=== PATIENT | male | born 1960 | race Caucasian/White ===

== ENCOUNTER 2018-05-25 22:45 | Emergency (ER) | payer BC, SELFPAY ==
[2018-05-25] VITALS (15 sets, daily range): BP systolic 123–152; BP diastolic 81–134; PULSE 74–85; RESP 12–23; TEMP 36.8; O2SAT 96–98
--- NOTE | 2018-05-25 23:20 | ED.GENADUL_ITS ---
Discharge Plan Disposition Patient Disposition: HOME Discharge Details Chief Complaint: Chest Pain Clinical Impression: Chest discomfort, Elevated serum creatinine, Mass of middle lobe of right lung Primary Care Provider: Nick Martinez ED Provider: Yon Kaba Home Meds and New Rx's Prescriptions: No Action No Known Home Meds RF: 0 Discharge Instructions Additional Instructions: The cause of your chest discomfort was not determined today. You still may have significant disease. You should have an outpatient cardiac stress test as soon as possible. You will be contacted to schedule this. Please rest at home today and tomorrow. Diagnostic labs indicate diminished kidney function. Please increase daily water intake. Be sure to discuss this with your doctor. Repeat blood work should be performed. CT imaging revealed a spiculated lung mass. Given your smoking history, this is concerning for potential cancer. This will need follow-up testing. Follow-up with your doctor. Call for an appointment. Return to the ER for any worsening or new concerning symptoms. Stand Alone Forms: Work Release Referrals: Nick Martinez MD [Primary Care Provider] - Discharge Data Discharge Date/Time-TO BE ENTERED AT DEPARTURE: 05/26/18 02:35 Medical Decision Making 23:22 --57-year-old male, former smoker, here with intermittent chest discomfort with associated left hand paresthesia and dyspnea on exertion over the past 2-3 weeks. Concern for ACS. Currently asymptomatic. Had symptoms earlier today. ECG reviewed and interpreted by me: Sinus rhythm 81 bpm, left axis deviation, no STEMI, nondiagnostic. Plan to check troponin. 12:15 -- Labs reviewed. Trop and BNP wnl. Cr 1.48, GFR 48. I discussed results with patient and recommended CTA. We discussed risk and benefits of CTA. Patient provided informed consent to proceed with CTA. 1:35 -- CT interpreted by radiology: FINDINGS: Pulmonary arteries: Unremarkable. No obvious pulmonary emboli. Aorta: Unremarkable. No aortic aneurysm. No aortic dissection. Lungs: 13 mm nodule in the right middle lobe has some spiculations. Pleural space: Unremarkable. No pneumothorax. No pleural effusion. Heart: Unremarkable. No pericardial effusion. No obvious heart strain. Lymph nodes: Unremarkable. No enlarged lymph nodes. Bones/joints: Unremarkable. No acute fracture. Soft tissues: Unremarkable. IMPRESSION: 13 mm right middle lobe pulmonary nodule. Suggest PET/CT scan and/or tissue diagnosis. No acute findings. Patient reassessed. He has remained stable and asymptomatic. Discussed results with the patient. Patient verbalized understanding of absolute need to follow-up with PCP and to have stress test miracle. Patient is agreeable to staying for second troponin. He is not willing to wait for results. He prefers to be contacted if results positive. I explained my recommendation for him to stay until all diagnostic testing complete. I discussed risk of leaving prior to completion of diagnostic workup. Patient provided informed refusal to stay for results. Patient has decisional making capacity HPI General Mode of arrival: ambulatory . Date/Time Provider Initiated Documentation: 05/25/18 22:51 . Limitations to Documentation: no limitations . Information obtained by: patient . HPI Narrative: 57-year-old male, former smoker, presents with chief complaint of chest discomfort. Patient notes that he has had intermittent chest discomfort for the past few weeks. Patient has difficulty describing symptoms but notes he feels an odd sensation in his central chest that goes up to his neck. He has associated left hand numbness with these episodes. He also notes recent dyspnea on exertion. He specifically states that when he goes up a flight of stairs he feels winded. Patient does think that at times symptoms correlate postprandially -but that this is not always the case. He denies associated leg swelling or calf pain. Related Data Home Medications Medication Instructions Recorded Confirmed Unknown [No Known Home Meds] 05/25/18 05/25/18 Allergies Allergy/AdvReac Type Severity Reaction Status Date / Time No Known Allergies Allergy Unverified 05/25/18 23:26 General Stated Complaint: Chest Pain MK: 3 Review of Systems Review of Systems All systems reviewed & are unremarkable except as noted in HPI and below Constitutional Denies fever(s) Cardiovascular Denies syncope, Denies rapid heart rate, Denies leg edema, Denies lightheadedness and Reports dyspnea on exertion Respiratory Reports dyspnea on exertion Gastrointestinal Denies nausea and Denies vomiting Neurologic Denies syncope ON LICENSE OF [facility] Social History Smoking/Tobacco Use Status: Current every day Tobacco Type: cigarettes and smokeless tobacco Alcohol Intake: current Alcohol Intake frequency: a few times a week Alcohol type: hard liquor Drug use: Never Substance use type: does not use Do you feel safe at home: Yes Do you feel safe in your relationship?: Yes Exam Const General: cooperative and no acute distress HENMT Head: normocephalic Mouth: moist mucous membranes Eyes Conjunctivae: normal conjunctivae Sclera: normal sclerae Neck Neck: trachea midline Resp Auscultation: clear to auscultation bilaterally, no rales, no rhonchi and no wheezes Cardio Jugular venous pressure: no JVD Rate: regular rate and not tachycardic Rhythm: regular rhythm Pulses: radial pulses present on the left 2+ GI Palpation: soft, not firm, no guarding, no masses, not rigid and nontender Skin General skin exam: no rashes or lesions noted Neuro General: alert, awake, oriented x3 and tone normal Extrem General: no calf tenderness bilaterally and no edema Psych Appearance: grossly normal Mental Status: mental status grossly normal Speech and Movement: speech and movement normal Course Vital Signs Temperature 36.8 C 05/25/18 22:55 Pulse 82 05/25/18 22:55 Respiratory Rate 22 05/25/18 22:55 Blood Pressure 147/85 H 05/25/18 22:55 Pulse Oximetry 97 05/25/18 22:55 Temperature 36.8 C 05/25/18 22:55 Temperature Source Skin 05/25/18 22:55 Pulse 82 05/25/18 22:55 Respiratory Rate 22 05/25/18 22:55 Respiratory Effort Non-Labored 05/25/18 23:05 Blood Pressure 147/85 H 05/25/18 22:55 Blood Pressure Position Sitting 05/25/18 22:55 Pulse Oximetry 97 05/25/18 22:55 Oxygen Delivery Method Room Air 05/25/18 22:55 Oxygen Flow Rate 0 05/25/18 22:55
[2018-05-25 23:35] LABS: Abs Immature Grans 0.09 k/cumm (0.0-0.09); Absolute Basophil Count 0.02 k/cumm (0.0-0.2); Absolute Eosinophil Count 0.16 k/cumm (0.0-0.7); Absolute Lymphocyte Count 2.41 k/cumm (1.2-3.4); Absolute Monocyte Count 0.57 k/cumm (0.11-0.7); Absolute Neutrophil Count 4.77 k/cumm (1.2-6.7); Basophils % 0.2; HCT 43.7 % (40.0-50.0); HGB 15.4 g/dL (13.5-17.5); Immature Grans % 1.1; Mean Corp. HGB Concentration 35.2 g/dL (32.0-36.0); Mean Corpuscular Hemoglobin 30.7 pg (27.0-33.0); Mean Corpuscular Volume 87.1 fL (80-95); Mean Platelet Volume 9.6 fL (8.0-11.0); Monocytes % 7.1; Neutrophils % 59.6; Platelet Count 230 x1000/uL (130-400); RBC 5.02 m/cumm (4.50-6.00); RBC Distribution Width 12.8 % (11.8-14.1); White Blood Cell Count 8.02 k/cumm (4.4-10.8)
[2018-05-25 23:55] LABS: ALT 44 U/L (12-78); AST 26 U/L (15-37); Albumin 4.5 g/dL (3.4-5.0); Alkaline Phosphatase 81 U/L (46-116); Anion Gap 7.9 mmol/L (3-11); BUN 20 mg/dL (7-18); Bilirubin, Total 0.5 mg/dL (0.2-1.0); CO2 30.1 mmol/L (21.0-32.0); CREATININE 1.48 mg/dL (0.70-1.30); Calcium 9.4 mg/dL (8.5-10.1); Chloride 99 mmol/L (98-107); Estimated GFR 48.65 (mL/min/1.73m2); Glucose 106 mg/dL (70-100); NT-proBNP 10 pg/mL; Potassium 3.8 mmol/L (3.5-5.1); Sodium 137 mmol/L (136-145); Total Protein 8.8 g/dL (6.4-8.2); Troponin I < 0.02 ng/mL (0.00-0.06)
[2018-05-26] VITALS (13 sets, daily range): BP systolic 131–139; BP diastolic 76–91; PULSE 67–78; RESP 14–21; O2SAT 96–98
[2018-05-26 00:03] LABS: D-Dimer 305 ng/mlFEU (<500)
[2018-05-26] MEDS: Omnipaque 350 MG/ML 100 ML BTL IJ (00:37)
--- NOTE | 2018-05-26 00:40 | DI.CT_ITS ---
SYMPTOM/DIAGNOSIS: CENTRAL CHEST DISCOMFORT INTERMITTENT, DYSPNEA ON EXERTION THORAX CTA: CT angiography was performed with multi slice acquisition and multi planar and 3D reconstruction. Routine post contrast CT scan of the chest was performed. The thoracic aorta is of normal caliber. No dissection or aneurysm is seen. Pulmonary arteries are not optimally opacified for evaluation of pulmonary embolic disease. Heart size is within normal limits. No significant pericardial effusion is seen. No significant thoracic adenopathy, pleural effusion or pneumothorax is identified. There is a 1.3 cm., mildly spiculated, lobulated mass in the right middle lobe. The lungs are otherwise clear. The tracheobronchial tree is unremarkable. No acute osseous abnormality is identified. Degenerative changes are seen in the thoracic spine. IMPRESSION: 1. No evidence of thoracic aneurysm or dissection. 2. 1.3 cm. non calcified right middle lobe pulmonary nodule. Primary diagnostic concern is for neoplasm. Other etiologies cannot be entirely excluded. PET CT scan should be considered for further evaluation.
[2018-05-26] MEDS: Normal Saline 500 ML 1000 ML IV (00:45)
--- NOTE | 2018-05-26 01:05 | DI.VRAD_ITS ---
EXAM: CT Angiography Chest With Contrast EXAM DATE/TIME: 05/26/2018 12:06 AM CLINICAL HISTORY: 57 years old, male; Signs and symptoms; Dyspnea; Additional info: Central chest discomfort, dyspnea on exertion TECHNIQUE: Imaging protocol: Axial computed tomographic angiography images of the chest with intravenous contrast using CT angiography protocol. Coronal and sagittal reformatted images were created and reviewed. 3D rendering: MIP reconstructed images were created and reviewed. Radiation optimization: All CT scans at this facility use at least one of these dose optimization techniques: automated exposure control; mA and/or kV adjustment per patient size (includes targeted exams where dose is matched to clinical indication); or iterative reconstruction. Contrast material: [id number] Contrast volume: 100 ml Contrast route: iv COMPARISON: No relevant prior studies available. FINDINGS: Pulmonary arteries: Unremarkable. No obvious pulmonary emboli. Aorta: Unremarkable. No aortic aneurysm. No aortic dissection. Lungs: 13 mm nodule in the right middle lobe has some spiculations. Pleural space: Unremarkable. No pneumothorax. No pleural effusion. Heart: Unremarkable. No pericardial effusion. No obvious heart strain. Lymph nodes: Unremarkable. No enlarged lymph nodes. Bones/joints: Unremarkable. No acute fracture. Soft tissues: Unremarkable. IMPRESSION: 13 mm right middle lobe pulmonary nodule. Suggest PET/CT scan and/or tissue diagnosis. No acute findings. Dictated and Authenticated by: Nick Toussaint MD. Ordering:MISAEL Marivn MD
[2018-05-26 02:26] LABS: Troponin I < 0.02 ng/mL (0.00-0.06)
--- NOTE | 2018-05-26 08:22 | CMPROGNOTE_ITS ---
Care Management Progress Note 05/26-Dr. Juancarlos Kaba requested assistance with a PCP (Juan) f/u within 1-2 weeks for stress test f/u, creatinine f/u, spiculated lung mass. [facility].
== END 2018-05-26 02:35 | disposition home or self-care (01) ==
LOC: ER 05-26 02:42
PROVIDERS: Emergency Provider Student in an Organized Health Care Education/Training Program; PCP Internal Medicine
DX: R07.89 Other chest pain (principal); R91.8 Other nonspecific abnormal finding of lung field; R94.4 Abnormal results of kidney function studies; R20.2 Paresthesia of skin; R06.00 Dyspnea, unspecified; Z87.891 Personal history of nicotine dependence
CPT/HCPCS: 36415; 71275; 80053; 93005; 96360; 99285; 83735; 83880; 84484; 85025; 85379; 93010; J3490

== ENCOUNTER 2018-06-02 00:41 | Outpatient (CLI) | payer OTHER, SELFPAY ==
--- NOTE | 2018-06-02 14:00 | ETT_ITS ---
*[facility]* *[facility]* [address] [place] [address] Stress Electrocardiography Corby protocol Date of study: 06/02/2018 *PATIENT PRESENTATION* Height: 182.9cm (72in) Blood Pressure: Weight: 118.2kg (260lb) BSA: 2.49m^2 Referring physician: Yon Kaba Ordering physician: Yon Kaba Impressions: Normal study after maximal exercise. Summary: 1. Stress ECG conclusions: The stress ECG is negative. 2. Stress: The target heart rate was not achieved. Indication: R07.9. History: REASON FOR TESTING: FOR THE PAST 2 YEARS PATIENT HAS BEEN GETTING INCREASED SOB WITH ACTIVITY THAT GOES AWAY WITH REST. NO SOB AT REST. WHEN HE HAS SOB, HE HAS AN ODD FEELING OF SOMEONE TAKING MY BREATH AWAY IN NECK. HE STATES HE RARELY GETS LEFT SIDED CHEST PAIN BUT WHEN HE DOES THE PAIN WILL LAST A FEW MINUTES. HE DENIES SOB AND CHEST PAIN UPON ARRIVAL TO TESTING TODAY. NO SIGNIFICANT PAST MEDICAL HISTORY; PATIENT STATES HE RARELY GOES TO THE DOCTOR'S FOR CARE. SMOKING STATUS: CURRENT TOBACCO CHEWER. QUIT SMOKING 2015. PATIENT SMOKED FOR 35 YEARS 1 PPD. EXERCISE ROUTINE: DAILY ADL'S. 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 Risk factors: Obesity. ALLERGIES: NO KNOWN MEDICATION ALLERGIES. MEDICATIONS: NONE. Protocol: Corby protocol. Baseline ECG: SINUS RHYTHM. 73 BPM. Stress protocol: + +---+ + !Stage !HR !BP (mmHg) ! + +---+ + !Baseline supine !73 !128/80 (96) ! + +---+ + !Baseline standing !88 !130/86 (101)! + +---+ + !Stage I; 1.7mph, 10degrees; 3 min !115!140/80 (100)! + +---+ + !Stage II; 2.5mph, 12degrees; 3 min!128!160/80 (107)! + +---+ + !Peak stress !133! ! + +---+ + !Recovery; 1 min !114!210/90 (130)! + +---+ + !Recovery; 4 min !88 !148/88 (108)! + +---+ + !Recovery; 6 min !85 !144/90 (108)! + +---+ + * Stress results: STRESS TEST ENDED IN 6 MINUTES 26 SECONDS DUE TO LEG FATIGUE. PATIENT DID NOT ACHEIVE TARGET HEART RATE. NORMAL HEART RATE AND BLOOD PRESSURE RESPONSE TO EXERCISE. MAX HEART RATE: 133. 82 % OF TARGET HEART RATE ACHIEVED. MET'S: 7.71. NO ECTOPY. LEFT SIDED CHEST HEAVYNESS (2/10) AT PEAK EXERCISE. LEFT SIDED CHEST HEAVYNESS SUBSIDED AT 1 MINUTES OF RECOVERY. LEFT SIDED CHEST HEAVYNESS COMPLETELY GONE BY 2 MINUTES OF RECOVERY. NO SIGNIFICANT ST SEGMENT CHANGES. MILDLY DIMINISHED FUNCTIONAL CAPACITY. Maximal heart rate during stress was 133bpm (83% of maximal predicted heart rate). The maximal predicted heart rate was 161bpm. The target heart rate was not achieved. The rate-pressure product for the peak heart rate and blood pressure was 09905aq Hg/min. Stress ECG: The stress ECG is negative. Study data: Mary James MD supervised and was readily available during the procedure. This study was interpreted by [facility]. Study status: Routine. Consent: The risks, benefits, and alternatives to the procedure were explained to the patient and informed consent was obtained. Procedure: Initial setup. A baseline ECG was recorded. Surface ECG leads and manual cuff blood pressure measurements were monitored. Heart sounds: Normal. Lung sounds: Normal. Treadmill exercise testing was performed using the Corby protocol. Study completion: The patient tolerated the procedure well and was discharged from the lab. Discharge: The patient left the laboratory in stable condition. Birthdate: Patient birthdate: 1960. Sex: Gender: male. Study date: Study date: 06/02/2018. Study time: 00:01 AM. Electronically signed by Stevie Concepcion MD 06/05/2018 09:12
== END 2018-06-02 01:01 ==
PROVIDERS: PCP Internal Medicine; Visit Provider Student in an Organized Health Care Education/Training Program
DX: R07.9 Chest pain, unspecified (principal); R06.02 Shortness of breath; F17.220 Nicotine dependence, chewing tobacco, uncomplicated
CPT/HCPCS: 93017

== ENCOUNTER 2018-06-26 08:41 | Outpatient (REF) | payer BC, SELFPAY ==
[2018-06-26 13:19] LABS: Anion Gap 5.5 mmol/L (3-11); BUN 14 mg/dL (7-18); CO2 31.5 mmol/L (21.0-32.0); CREATININE 1.26 mg/dL (0.70-1.30); Calcium 9.1 mg/dL (8.5-10.1); Chloride 103 mmol/L (98-107); Cholesterol 174 mg/dL (50-200); Estimated GFR 58.58 (mL/min/1.73m2); Glucose 104 mg/dL (70-100); HDL Cholesterol 28 mg/dL (40-60); LDL CHOLESTEROL 113 mg/dL (<100); Potassium 4.8 mmol/L (3.5-5.1); Sodium 140 mmol/L (136-145); Triglyceride 170 mg/dL (30-150)
== END 2018-06-26 09:01 ==
LOC: NCHCN 08:41
PROVIDERS: PCP Internal Medicine; Visit Provider Internal Medicine
DX: N28.9 Disorder of kidney and ureter, unspecified (principal)
CPT/HCPCS: 80048; 80061; 83721

== ENCOUNTER 2020-10-08 11:05 | Outpatient (REF) | payer OTHER, SELFPAY ==
[2020-10-08 14:33] LABS: Absolute Basophil Count 0.03 10^3/uL (0.0-0.2); Absolute Eosinophil Count 0.11 10^3/uL (0.0-0.7); Absolute Monocyte Count 0.72 10^3/uL (0.1-0.8); Absolute Neutrophil Count 4.84 10^3/uL (1.2-6.7); Basophils % 0.4; Eosinophils % 1.4; HCT 43.5 % (40.0-50.0); HGB 14.7 g/dL (13.5-17.5); Immature Grans % 1.3; Lymphocytes % 25.6; MCH 29.6 pg (27.0-33.0); MCHC 33.8 % (32.0-36.0); MCV 87.7 fL (80-95); MPV 9.7 fL (8.0-11.0); Monocytes % 9.2; Neutrophils % 62.1; Nucleated RBC 0 %; Platelet Count 254 10^3/uL (130-400); RBC 4.96 10^6/uL (4.36-5.78); RDW-SD 38.3 fL
[2020-10-08 15:26] LABS: ALT 34 U/L (16-63); AST 24 U/L (15-37); Albumin 4.3 g/dL (3.4-5.0); Alkaline Phosphatase 66 U/L (46-116); Anion Gap 8.4 mmol/L (3-11); BUN 14 mg/dL (7-18); Bilirubin, Total 0.5 mg/dL (0.2-1.0); CO2 29.6 mmol/L (21.0-32.0); CREATININE 1.2 mg/dL (0.70-1.30); Calcium 9.5 mg/dL (8.5-10.1); Chloride 103 mmol/L (98-107); Glucose 98 mg/dL (74-106); Potassium 4.7 mmol/L (3.5-5.1); Sodium 141 mmol/L (136-145); TSH (W/Ref FT4) 1.15 uIU/mL (0.36-3.74); Total Protein 7.8 g/dL (6.4-8.2)
== END 2020-10-08 11:06 | disposition home or self-care (01) ==
LOC: NCHCN 11:05
PROVIDERS: PCP Internal Medicine; Visit Provider Family Medicine
DX: Z00.00 Encounter for general adult medical examination without abnormal findings (principal); R03.0 Elevated blood-pressure reading, without diagnosis of hypertension; R91.1 Solitary pulmonary nodule
CPT/HCPCS: 80053; 84443; 85025

== ENCOUNTER 2020-11-06 01:38 | Outpatient (CLI) | payer OTHER, SELFPAY ==
--- NOTE | 2020-11-06 | DI.CT_ITS ---
Exam(s) CT CHEST W EXAM: CT CHEST W CLINICAL HISTORY: RML PULMONARY NODULE,R91.1 TECHNIQUE: Imaging Protocol: Axial computed tomography images with coronal and sagittal reformatted images were created and reviewed CONTRAST MATERIAL: Intravenous: Omnipaque 350 Contrast volume: 70 cc COMPARISON: CT CT THORAX CTA from 05/26/2018 FINDINGS: The exam is mildly limited by respiratory motion. Tracheobronchial tree: No bronchiectasis or mucous plugging. Mediastinum and Amaris: 1.7 centimeter right paratracheal lymph node. 2.2 centimeter subcarinal lymph node. Pulmonary parenchyma: Interval increase in size spiculated mass in the right middle lobe, measuring 2 x 1.8 x 2.3 cm. Spiculations extend further into the parenchyma. This is increased when compared w ith 14 millimeter in maximal dimension on the previous exam. Additional 6 millimeter nodule left kathy ng apex. No consolidation. Pleura: No effusion or pneumothorax. Heart: The heart is not dilated. No coronary artery calcifications are seen. Aorta: Thoracic aorta non-dilated. Upper abdomen: Enlarged fatty liver. Lymph nodes: Within normal limits. Bones: Unremarkable for age. Soft tissues: Mild bilateral symmetric gynecomastia. IMPRESSION: Interval increase in size of right middle lobe mass now 2.3 cm in maximal dimension.. New nodule 6 m illimeters left upper lobe. New mediastinal adenopathy. Biopsy is recommended for further evaluatio n. RADIATION DOSE DELIVERED: 848.47mGy.cm Total DLP DATA REPOSITORY: All CT scans at this facility are submitted to the National Radiology Data Registry (NRDR) Dose Index Registry (DIR) with the [employer] (ACR). RADIATION OPTIMIZATION: All CT scans at this facility use at least one of these dose optimization te chniques: automated exposure control; mA and/or kV adjustment per patient size (includes targeted exa ms where dose is matched to clinical indication); or iterative reconstruction.
[2020-11-06] MEDS: Omnipaque 350 MG/ML 100 ML BTL IJ (15:02)
== END 2020-11-06 01:58 ==
PROVIDERS: PCP Internal Medicine; Visit Provider Family Medicine
DX: R91.1 Solitary pulmonary nodule (principal); R91.8 Other nonspecific abnormal finding of lung field; R59.0 Localized enlarged lymph nodes
CPT/HCPCS: 71260; J3490

== ENCOUNTER 2020-11-06 04:56 | Outpatient (CLI) | payer OTHER, SELFPAY ==
[2020-11-06] MEDS: Albuterol HFA 18 GM 200 PUFF INH IH (16:37)
[2020-11-06] MEDS: Inhaler, Assist Device 1 EACH MC (16:38)
--- NOTE | 2020-11-07 12:40 | W.PFT ---
Date of service: 11/06/20 Time of Service: 15:14 Pulmonary Function Test Result Requesting Provider Chong Montano Indications: Dyspnea Interpretation Spirometry: There is moderate airflow limitation patient. FVC is low. There is a significant bronchodilator response with a 27% and 570 cc increase in FEV1 with administration of albuterol. Lung Volumes: There is evidence of air trapping and hyperinflation. Diffusion Capacity: The diffusion is normal. Airway Pressure: There is increased airways resistance. Impression There is moderate airflow limitation with a significant bronchodilator response. Low FVC is likely result of airflow limitation. With a normal diffusion capacity this pulmonary function test is consistent with chronic bronchitis (COPD), asthma or asthma COPD overlap syndrome. Clinical Correlation therefore is recommended.
== END 2020-11-06 04:57 | disposition home or self-care (01) ==
LOC: RT 04:56
PROVIDERS: PCP Internal Medicine; Visit Provider Family Medicine
DX: R06.00 Dyspnea, unspecified (principal)
CPT/HCPCS: 94060; 94726; 94729

== ENCOUNTER 2021-01-17 19:08 | Emergency (ER) | payer OTHER, SELFPAY ==
[2021-01-17 19:14] VITALS: BP 161/78; PULSE 93; RESP 26; TEMP 36.2; O2SAT 97
--- NOTE | 2021-01-17 19:30 | DI.RAD_ITS ---
Exam(s) XR PORTABLE CHEST AP EXAM: XR PORTABLE CHEST AP CLINICAL HISTORY: cough, PUI TECHNIQUE: 2D digital imaging was performed of the chest. Two images were obtained. AP views were obtained. COMPARISON: CR CHEST 2 VIEWS PA,LAT from 08/20/2014 FINDINGS: MEDIASTINUM: Normal. HEART: Normal. PULMONARY VASCULATURE: Normal. LUNGS: There is an infiltrate in the right mid lung. PLEURAL SPACE: No pleural effusion or pneumothorax. BONE:Within normal limits for the patient's age. OTHER FINDINGS:Normal. IMPRESSION: Right mid lung infiltrate suspicious for pneumonia. DATA REPOSITORY: RADIATION DOSE DELIVERED:
--- NOTE | 2021-01-17 19:33 | W.ED.GENAD ---
Discharge Plan Disposition Patient Disposition: HOME Condition: Good Discharge Details Clinical Impression: CAP (community acquired pneumonia) Primary Care Provider: Nick Martinez ED Provider: Jourdan Box Home Meds and New Rx's Prescriptions: New doxycycline hyclate 100 mg capsule 100 mg PO BID Qty: 14 RF: 0 Continued acetaminophen 500 mg Tablet 1,000 mg PO Q6H RF: 0 phenylephrine-guaifenesin 2.5-100 mg/5 mL Liquid 5 ml PO DAILY PRNRF: 0 Discharge Instructions Instructions: Community Acquired Pneumonia (ED) Additional Instructions: Please maintain home quarantine and isolation until Covid test is resulted and negative. Please contact your primary care physician to arrange follow-up. Call on Tuesday. Please follow-up with [facility] oncology as soon as possible for recommended work-up of lung mass. Return to the ER immediately for any worsening or new concerning symptoms. Referrals: Nick Martinez MD [Primary Care Provider] - Discharge Data Discharge Date/Time-TO BE ENTERED AT DEPARTURE: 01/17/21 23:33 Medical Decision Making <Yon Kaba MD - Last Filed: 01/20/21 12:05> 1935 -- 60yo m with lung mass here with dry cough over the past 1.5 weeks with associated fever. Patient is saturating well in no respiratory distress. Lungs clear bilaterally. Patient notes symptoms consistent with prior bronchitis/pneumonia that he said intermittently over the past 3 years. Patient is vaccinated against Covid. Consider Covid disease and will send test. I will obtain chest x-ray to assess for pneumonia. I reviewed past record, CT chest 11/06/20: IMPRESSION: Interval increase in size of right middle lobe mass now 2.3 cm in maximal dimension.. New nodule 6 millimeters left upper lobe. New mediastinal adenopathy. Biopsy is recommended for further evaluation. <Jourdan Box MD - Last Filed: 01/17/21 20:58> Patient signed out to me pending his chest x-ray which does show probable pneumonia. Patient will be started on doxycycline and follow-up with primary care next week. Quarantine until Covid test has returned. Return to ED if any worsening symptoms or problems. HPI <Yon Kaba MD - Last Filed: 01/20/21 12:05> General Mode of arrival: ambulatory. Date/Time Provider Initiated Documentation: 01/17/21 19:11. Limitations to Documentation: no limitations. Information obtained by: patient. HPI Narrative: 50-year-old male with history of lung mass currently being worked up at [facility], here with chief complaint of cough. Patient notes cough persisted over the past 1.5 weeks. Cough has been nonproductive. Symptoms are moderate with no modifiers. He has no associated chest pain. He is concerned that he has bronchitis or pneumonia which he has had in the remote past as this feels very similar. Related Data Home Medications Medication Instructions Recorded Confirmed acetaminophen 1,000 mg PO Q6H 01/17/21 01/17/21 doxycycline hyclate 100 mg PO BID #14 cap 01/17/21 phenylephrine-guaifenesin 5 ml PO DAILY PRN 01/17/21 01/17/21 Previous Rx's Medication Instructions Recorded doxycycline hyclate 100 mg PO BID #14 cap 01/17/21 Allergies Allergy/AdvReac Type Severity Reaction Status Date / Time Penicillins AdvReac Intermediate Other (See Unverified 01/17/21 19:16 Comment) General Stated Complaint: SOB MK: 2 Review of Systems <Yon Kaba MD - Last Filed: 01/20/21 12:05> All systems reviewed & are unremarkable except as noted in HPI and below Constitutional Constitutional: Reports fever(s) Cardiovascular Cardiovascular: Denies chest pain and Denies dyspnea Respiratory Respiratory: Reports cough and Denies dyspnea Gastrointestinal Gastrointestinal: Denies nausea and Denies vomiting PFSH <Yon Kaba MD - Last Filed: 01/20/21 12:05> Medical History Lung cancer Social History Smoking/Tobacco Use Status: Current every day Tobacco Type: smokeless tobacco Smoking risk assessment performed?: Yes Alcohol Intake: never Drug use: Never Substance use type: does not use Do you feel safe at home: Yes Do you feel safe in your relationship?: Yes Exam <Yon Kaba MD - Last Filed: 01/20/21 12:05> Const General: cooperative and no acute distress HENMT Mouth: moist mucous membranes Eyes Conjunctivae: normal conjunctivae Sclera: normal sclerae Neck Neck: trachea midline and supple Resp Effort & Inspection: normal respiratory effort, cough and not labored Auscultation: clear to auscultation bilaterally, no rales, no rhonchi and no wheezes Cardio Rate: regular rate and not tachycardic Rhythm: regular rhythm GI Palpation: soft, not firm, no guarding, no masses, not rigid and nontender Skin General skin exam: no rashes or lesions noted Neuro General: patient alert, patient awake, patient oriented x3 and tone normal Extrem General: no calf tenderness and no edema Course <Yon Kaba MD - Last Filed: 01/20/21 12:05> Vital Signs Vital signs: Vital Signs Temperature 36.2 C L 01/17/21 19:14 Pulse 93 H 01/17/21 19:14 Respiratory Rate 26 H 01/17/21 19:14 Blood Pressure 161/78 H 01/17/21 19:14 Pulse Oximetry 97 01/17/21 19:14 Temperature 36.2 C L 01/17/21 19:14 Temperature Source Temporal Artery Scan 01/17/21 19:14 Pulse 93 H 01/17/21 19:14 Respiratory Rate 26 H 01/17/21 19:14 Respiratory Effort 01/17/21 19:18 Blood Pressure 161/78 H 01/17/21 19:14 Blood Pressure Position Supine 01/17/21 19:14 Pulse Oximetry 97 01/17/21 19:14 Oxygen Delivery Method Room Air 01/17/21 19:14 Oxygen Flow Rate 0 01/17/21 19:14 Pain Level 0 01/17/21 19:14 Sign Out <Yon Kaba MD - Last Filed: 01/20/21 12:05> Sign Out Data: Sign Out Comment: followup cxr and dispo patient Last updated by Yon Kaba MD at 01/17/21 19:54
[2021-01-17 20:25] VITALS: BP 138/73; PULSE 92; RESP 16; TEMP 36.7; O2SAT 95
--- NOTE | 2021-01-17 20:36 | DI.VRAD_ITS ---
PROCEDURE INFORMATION: Exam: XR Chest Exam date and time: 01/17/2021 7:32 PM Age: 60 years old Clinical indication: Cough, pui TECHNIQUE: Imaging protocol: XR of the chest. Views: 1 view. COMPARISON: CT CHEST W 11/06/2020 2:35 PM FINDINGS: Lungs: Small opacity projecting within the right mid lung field. Pleural spaces: No pneumothorax. No sizable pleural effusion. Heart/Mediastinum: No cardiomegaly. Bones/joints: Unremarkable. IMPRESSION: Small opacity projecting within the right mid lung field, which may represent pneumonia. Dictated and Authenticated by: Brayan Norman MD. Ordering:MISAEL Marvin MD
[2021-01-17] MEDS: Doxycycline Hyclate 100 MG CAP PO (20:48)
--- NOTE | 2021-01-18 06:56 | NUR.NOTE ---
Nursing Note: Marisela called and had a few questions. Dr. Box stated that pt had pneumonia, has COVID test pending. She was told this and understood. Asked if doxycyclline was a family of penicillin and Dr. Box stated no. She was told this also. Heather German
[2021-01-19 09:49] LABS: COVID-19 RT-PCR UVMMC Result Negative (Negative)
--- NOTE | 2021-01-21 08:21 | NUR.NOTE ---
negative covid result relayed to pt via phone.Nursing Note:
== END 2021-01-17 23:33 | disposition home or self-care (01) ==
PROVIDERS: Student in an Organized Health Care Education/Training Program; Emergency Provider Emergency Medicine; PCP Internal Medicine
DX: J18.8 Other pneumonia, unspecified organism (principal); Z20.822 Contact with and (suspected) exposure to COVID-19; Z03.818 Encounter for observation for suspected exposure to other biological agents ruled out
CPT/HCPCS: 99283; U0003; 71045

== ENCOUNTER 2021-01-19 02:26 | Outpatient (CLI) | payer OTHER, SELFPAY ==
--- NOTE | 2021-01-19 14:45 | DI.MRI_ITS ---
Exam(s) MR BRAIN WO/W EXAM: MR BRAIN WO/W CLINICAL HISTORY: RT UPPER LOBE LUNG CANCER C34.11, EVALUATE FOR BRAIN METS TECHNIQUE: Multiplanar multisequence MRI of the brain was performed. Both noninfused and contrast i nfused sequences were performed. IV Contrast injected was 20 cc Dotarem. COMPARISON: CR,XR XR PORTABLE CHEST AP from 01/17/2021 CR,XR XR PORTABLE CHEST AP from 01/17/2021 FINDINGS: CEREBRAL PARENCHYMA: No evidence of intracranial hemorrhage, mass effect nor shift of midline structu re. No extraaxial fluid collections. Ventricles are not enlarged nor shifted. There is no significant focal signal abnormality in the cerebellar hemispheres nor within the serjio, m idbrain, and thalami. Multiple small FLAIR bright sub cm sys signal foci in the Rosy ventricular white matter. Largest of these is adjacent to atrium left lateral ventricle 1.2 x 0.4 cm. This is nonhemorrhagic and nonenhan cing without surrounding edema and therefore unlikely to represent a metastatic lesion. In addition, none of the above white matter foci exhibit restricted diffusion signal on DWI to suggest recent isc hemic event. On SWI there is no evidence of microhemorrhages in the brain. There are no ring enhancing lesions in the brain. There is no abnormal meningeal enhancement. PITUITARY GLAND: No mass nor parasellar abnormality. No obvious abnormality in the cavernous sinuses. FLOW VOIDS: The expected flow void are noted. No evidence of obvious aneurysm nor obvious vascular ma lformation. PARANASAL SINUSES: Mucosal thickening floor right maxillary sinus is noted. ORBITS: No obvious abnormal findings. IMPRESSION: 1. Nonspecific white matter findings as described above which are doubtful for metastatic disease giv en the absence of both surrounding edema and enhancement. 2. No evidence of acute ischemic event. DATA REPOSITORY:
[2021-01-19 15:36] LABS: CREATININE 1.2 mg/dL (0.70-1.30)
[2021-01-19] MEDS: Normal Saline Flush 10 ML SYR IVP (15:45)
[2021-01-19] MEDS: Gadoterate meglumine 20 ML VIAL IVP (15:46)
== END 2021-01-19 02:46 ==
PROVIDERS: PCP Internal Medicine; Visit Provider Internal Medicine Medical Oncology
DX: Z01.812 Encounter for preprocedural laboratory examination (principal); C34.11 Malignant neoplasm of upper lobe, right bronchus or lung; R90.82 White matter disease, unspecified; Z12.89 Encounter for screening for malignant neoplasm of other sites
CPT/HCPCS: 70553; 82565

== ENCOUNTER 2021-02-11 10:59 | Outpatient (CLI) | payer OTHER, SELFPAY ==
[2021-02-11 13:45] LABS: CREATININE 1.2 mg/dL (0.70-1.30)
== END 2021-02-11 11:00 | disposition home or self-care (01) ==
LOC: LBO 11:04
PROVIDERS: PCP Internal Medicine; Visit Provider Preventive Medicine Undersea and Hyperbaric Medicine
DX: C34.11 Malignant neoplasm of upper lobe, right bronchus or lung (principal)
CPT/HCPCS: 36415; 82565

== ENCOUNTER 2021-03-02 03:35 | Outpatient (RCR) | payer OTHER, SELFPAY ==
[2021-03-02 08:58] LABS: Abs Immature Grans 0.02 10^3/uL (0.0-0.06); Absolute Basophil Count 0.02 10^3/uL (0.0-0.2); Absolute Eosinophil Count 0.09 10^3/uL (0.0-0.7); Absolute Lymphocyte Count 1.11 10^3/uL (1.2-3.4); Absolute Monocyte Count 0.47 10^3/uL (0.1-0.8); Absolute Neutrophil Count 5.92 10^3/uL (1.2-6.7); Basophils % 0.3; Eosinophils % 1.2; HCT 43.1 % (40.0-50.0); HGB 14.4 g/dL (13.5-17.5); Immature Grans % 0.3; Lymphocytes % 14.5; MCH 29.1 pg (27.0-33.0); MCHC 33.4 % (32.0-36.0); MCV 87.2 fL (80-95); MPV 9.1 fL (8.0-11.0); Monocytes % 6.2; Neutrophils % 77.5; Nucleated RBC 0 %; Platelet Count 274 10^3/uL (130-400); RBC 4.94 10^6/uL (4.36-5.78); RDW 12.5 % (11.8-14.1); RDW-SD 39.7 fL; WBC 7.63 10^3/uL (4.4-10.8)
[2021-03-02 09:10] LABS: ALT 26 U/L (16-63); AST 18 U/L (15-37); Albumin 4.1 g/dL (3.4-5.0); Alkaline Phosphatase 76 U/L (46-116); Anion Gap 9.2 mmol/L (3-11); BUN 17 mg/dL (7-18); Bilirubin, Total 0.7 mg/dL (0.2-1.0); CO2 27.8 mmol/L (21.0-32.0); CREATININE 1.2 mg/dL (0.70-1.30); Chloride 101 mmol/L (98-107); Glucose 116 mg/dL (74-106); Potassium 3.8 mmol/L (3.5-5.1); Sodium 138 mmol/L (136-145); Total Protein 8.1 g/dL (6.4-8.2)
== END 2021-03-06 23:59 | disposition home or self-care (01) ==
LOC: INF 03:35
PROVIDERS: PCP Internal Medicine; Visit Provider Internal Medicine Medical Oncology
DX: C34.11 Malignant neoplasm of upper lobe, right bronchus or lung (principal)
CPT/HCPCS: 36415; 80053; 83735; 85025

== ENCOUNTER 2021-03-26 10:13 | Emergency (ER) | payer OTHER, SELFPAY ==
[2021-03-26] VITALS (19 sets, daily range): BP systolic 105–133; BP diastolic 67–83; PULSE 103–120; RESP 16–31; TEMP 36.7; O2SAT 95–98
--- NOTE | 2021-03-26 10:15 | RT.EKG_ITS ---
APPROVED REPORT Exam: Resting ECG Reason for Exam: pui Patient Location: E HR:109 bpm ECG Measurements Heart Rate 109 AXIS TN 173 P 71 QRSd 88 QRS -38 QT 310 T 65 QTc 417 Conclusion Sinus tachycardia...rate> 99 Left axis deviation...QRS axis (-30,-90)
--- NOTE | 2021-03-26 10:40 | W.ED.GENAD ---
Discharge Plan Disposition Patient Disposition: HOME Discharge Details Clinical Impression: Cough Primary Care Provider: Nick Martinez ED Provider: Richard Quiros Home Meds and New Rx's Prescriptions: No Action prochlorperazine maleate 10 mg tablet 10 mg PO RF: 0 acetaminophen 500 mg Tablet 1,000 mg PO Q6H RF: 0 phenylephrine-guaifenesin 2.5-100 mg/5 mL Liquid 5 ml PO DAILY PRNRF: 0 Discharge Instructions Additional Instructions: Please follow-up with oncology today as planned. You were tested for COVID. The results of the test is not back yet., In the meanwhile please follow home COVID precautions. Medical Decision Making Medical Records Medical records narrative: On review of systems the patient had deviated having chills. Appetite is lower from oncology she informs me that the patient was sent to the emergency department for cough and chills. No fever. Chest x-ray appears better today than in the past. Head CT of the chest did not reveal any pulmonary embolism. No signs of failure. No signs of pneumonia. The masses are present now with some cavitation. No change in the status of the pancreatic lesion does seem significant. Patient is not neutropenic. His labs are otherwise unremarkable. EKG showed mild sinus tachycardia without any signs of ischemia. Normal intervals. Single negative troponin. All these results were discussed with oncology. The patient has an appointment at . He will follow-up with him today. [facility] General Date/Time Provider Initiated Documentation: 03/26/21 10:23. [facility] Narrative: 60-year-old gentleman presents to the emergency room for evaluation of increased shortness of breath and cough. Cough nonproductive intermittently. He is currently undergoing chemotherapy every Tuesday for 6 weeks. Was sent to the emergency department with heme-onc service for further evaluation of shortness of breath and cough. States he had pneumonia prior to starting therapy back in February. States his symptoms today are similar to what he had in February. He does endorse intermittent headaches none currently. No fevers no chills. Denies any chest pressure., No back pain. No abdominal pain. No nausea or vomiting. No diarrhea. No dysuria. No swelling of the lower extremities. Patient does have chronic shortness of breath at baseline. Worse with exertion. He has not noticed any significant change in his shortness of breath. Essentially chronic shortness of breath. Productive cough x2 days, since Tuesday. Related Data Home Medications Medication Instructions Recorded Confirmed acetaminophen 1,000 mg PO Q6H 01/17/21 03/26/21 phenylephrine-guaifenesin 5 ml PO DAILY PRN 01/17/21 03/26/21 prochlorperazine maleate 10 mg PO 03/26/21 Allergies Allergy/AdvReac Type Severity Reaction Status Date / Time Penicillins AdvReac Intermediate Other (See Unverified 03/26/21 10:24 Comment) General Stated Complaint: GenMedical MK: 2 Review of Systems All systems reviewed & are unremarkable except as noted in HPI and below PFSH All Active Problems (Updated 03/26/21 @ 13:13 by Richard Quiros MD) CAP (community acquired pneumonia) (Acute) Cough (Acute) Medical History Lung cancer Social History Smoking/Tobacco Use Status: Current every day Tobacco Type: smokeless tobacco Smoking risk assessment performed?: Yes Alcohol Intake: never Drug use: Never Substance use type: does not use Do you feel safe at home: Yes Do you feel safe in your relationship?: Yes Exam Narrative Exam Narrative: Const General: cooperative and no acute distress HENMT Mouth: moist mucous membranes Eyes Conjunctivae: normal conjunctivae Sclera: normal sclerae Neck Neck: trachea midline and supple Resp Effort & Inspection: normal respiratory effort, cough and not labored Auscultation: clear to auscultation bilaterally, no rales, no rhonchi and no wheezes Cardio Rate: regular rate and mild tachycardic Rhythm: regular rhythm GI Palpation: soft, not firm, no guarding, no masses, not rigid and nontender Skin General skin exam: no rashes or lesions noted Neuro General: patient alert, patient awake, patient oriented x3 and tone normal Extrem General: no calf tenderness and no edema Course Vital Signs Vital signs: Vital Signs Temperature 36.7 C 03/26/21 10:19 Pulse 120 H 03/26/21 10:19 Respiratory Rate 26 H 03/26/21 10:19 Blood Pressure 120/83 03/26/21 10:19 Pulse Oximetry 97 03/26/21 10:19 Temperature 36.7 C 03/26/21 10:19 Temperature Source Skin 03/26/21 10:19 Pulse 110 H 03/26/21 10:30 Pulse 114 H 03/26/21 10:31 Respiratory Rate 20 03/26/21 10:31 Respiratory Effort 03/26/21 10:27 Respiratory Depth Normal 03/26/21 10:27 Respiratory Pattern Normal 03/26/21 10:27 Blood Pressure 133/78 03/26/21 10:30 Blood Pressure Mean 87 03/26/21 10:30 Blood Pressure Position Sitting 03/26/21 10:19 Pulse Oximetry 96 03/26/21 10:31 Oxygen Delivery Method Room Air 03/26/21 10:19 Oxygen Flow Rate 0 03/26/21 10:19 Pain Level 0 03/26/21 10:19
--- NOTE | 2021-03-26 10:45 | DI.RAD_ITS ---
Exam(s) XR CHEST 2V PA LATERAL EXAM: XR CHEST 2V PA LATERAL CLINICAL HISTORY: cough. TECHNIQUE: 2D digital imaging was performed. COMPARISON: CR,XR XR PORTABLE CHEST AP from 01/17/2021 FINDINGS: Heart size is normal. The mediastinum is not widened. Lungs are clear. No infiltrates nor pleural effusions. Previously present infiltrate in the right lung has mostly resolved. No new infiltrates evident and no pleural effusions IMPRESSION: No acute pulmonary findings. There has been resolution of the previously present right lung infiltrate. DATA REPOSITORY: RADIATION DOSE DELIVERED:
[2021-03-26 10:59] LABS: Abs Immature Grans 0.01 10^3/uL (0.0-0.06); Absolute Eosinophil Count 0.02 10^3/uL (0.0-0.7); Absolute Monocyte Count 0.24 10^3/uL (0.1-0.8); Absolute Neutrophil Count 2.04 10^3/uL (1.2-6.7); Eosinophils % 0.8; HCT 33.5 % (40.0-50.0); HGB 11.6 g/dL (13.5-17.5); Immature Grans % 0.4; MCH 29.8 pg (27.0-33.0); MCHC 34.6 % (32.0-36.0); MCV 86.1 fL (80-95); MPV 8.6 fL (8.0-11.0); Monocytes % 9.6; Neutrophils % 81.2; Nucleated RBC 0 %; Platelet Count 134 10^3/uL (130-400); RBC 3.89 10^6/uL (4.36-5.78); RDW 13.5 % (11.8-14.1); RDW-SD 39.8 fL; WBC 2.51 10^3/uL (4.4-10.8)
[2021-03-26 11:22] LABS: ALT 33 U/L (16-63); AST 22 U/L (15-37); Albumin 3.7 g/dL (3.4-5.0); Alkaline Phosphatase 59 U/L (46-116); Anion Gap 4.9 mmol/L (3-11); BUN 14 mg/dL (7-18); Bilirubin, Total 0.6 mg/dL (0.2-1.0); CO2 30.1 mmol/L (21.0-32.0); Calcium 8.8 mg/dL (8.5-10.1); Chloride 100 mmol/L (98-107); Glucose 122 mg/dL (74-106); Magnesium 1.8 mg/dL (1.8-2.4); NT-proBNP 17 pg/mL (<300); Potassium 3.3 mmol/L (3.5-5.1); Sodium 135 mmol/L (136-145); Total Protein 7.5 g/dL (6.4-8.2); Troponin I < 50 ng/L (<or=60)
[2021-03-26] MEDS: Normal Saline 1,000 ML 1000 ML IV (11:29)
--- NOTE | 2021-03-26 12:00 | DI.CT_ITS ---
Exam(s) CT CHEST PE CTA EXAM: CT CHEST PE CTA CLINICAL HISTORY: SOB Lung CA. TECHNIQUE: Imaging Protocol: CT angiography of the chest was performed using pulmonary embolus dillan col. Multi planar reconstructions were performed. CONTRAST MATERIAL: Intravenous: Omnipaque 350 Contrast volume: 83 cc COMPARISON: CT CT THORAX CTA from 05/26/[address] CHEST W from 11/06/2020 CR XR CHEST 2V PA LATERAL from 03/26/2021 FINDINGS: CHEST: PULMONARY ARTERIES: There are no intraluminal filling defects to suggest acute pulmonary emboli. LUNGS: There is again noted the previously described mass/infiltrate in the superior aspect of the ri ght middle lobe, presently exhibiting partial cavitation and measuring approximately 2.5 x 2.5 by 1.4 cm. No other right lung findings nor pleural effusion. Previously described 6 millimeter nodule in the sub apical left upper lobe is unchanged. No new lung nodules nor pleural effusions on either si de. No new findings in the trachea and mainstem bronchi. MEDIASTINUM: Slightly prominent lymph nodes are noted in the right hilum, more so than previous. Als o slightly prominent subcarinal lymph nodes. Left hilum appears unremarkable. CARDIAC: Heart size is upper normal. There is no pericardial effusion.Upper thoracic aorta is upper normal. No dissection. There is no significant shift of the interventricular septum. PARTIALLY VISUALIZED UPPERMOST ABDOMEN: Small hiatal hernia noted. No adrenal masses. Subtle hypode nsity in the anterior aspect of the pancreatic body noted, probably abnormal but probably benign give n that it appears unchanged from CT scan of 05/26/2018. OSSEOUS: No significant osseous lesions.. IMPRESSION: 1. No evidence of acute pulmonary emboli. No evidence of pulmonary infarction.No pleural effusions. 2. Cavitated mass/infiltrate in superior aspect of the right middle lobe noted. This has slightly in creased in size when compared to prior CT scans. There appears to be some ipsilateral hilar adenopat hy. No pleural effusions. Correlation with any prior biopsy result recommended 3. Stable appearing finding in the pancreatic body as described above. Findings discussed by myself with the ER provider. RADIATION DOSE DELIVERED: 549.13mGy.cm Total DLP DATA REPOSITORY: All CT scans at this facility are submitted to the National Radiology Data Registry (NRDR) Dose Index Registry (DIR) with the [employer] (A[employer]). RADIATION OPTIMIZATION: All CT scans at this facility use at least one of these dose optimization te chniques: automated exposure control; mA and/or kV adjustment per patient size (includes targeted exa ms where dose is matched to clinical indication); or iterative reconstruction.
[2021-03-26] MEDS: Omnipaque 350 MG/ML 100 ML BTL IJ (12:27)
[2021-03-26 13:29] LABS: Bilirubin Negative (Negative); Blood Negative (Negative); Clarity Clear (Clear); Glucose Negative (Negative); Ketones Negative (Negative); Leukocyte Esterase Negative (Negative); Nitrite Negative (Negative); Urobilinogen 0.2 EU/dL (Up TO 0.2); pH 5.5 (5-8)
[2021-03-27 18:50] LABS: COVID-19 RT-PCR UVMMC Result Positive (Negative)
--- NOTE | 2021-03-27 19:09 | W.ED.FU ---
Follow Up Plan: Pt informed of + COvid test from 03/26/21
== END 2021-03-26 13:18 | disposition home or self-care (01) ==
PROVIDERS: Emergency Provider Emergency Medicine; PCP Internal Medicine
DX: U07.1 COVID-19 (principal); R06.02 Shortness of breath; C34.90 Malignant neoplasm of unspecified part of unspecified bronchus or lung; Z79.899 Other long term (current) drug therapy; F17.210 Nicotine dependence, cigarettes, uncomplicated; R05.1 Acute cough
CPT/HCPCS: 36410; 36415; 71275; 80053; 87040; 93005; 96360; 99284; 99285; U0003; 71046; 81003; 83735; 83880; 84484; 85025; 93010; J3490

== ENCOUNTER 2021-03-28 10:43 | Emergency (ER) | payer OTHER, SELFPAY ==
[2021-03-28 10:57] VITALS: BP 136/93; PULSE 103; RESP 16; TEMP 36.6; O2SAT 98
--- NOTE | 2021-03-28 11:08 | W.ED.GENAD ---
Discharge Plan Disposition Patient Disposition: HOME Condition: Stable Discharge Details Clinical Impression: Epistaxis Primary Care Provider: Nick Martinez ED Provider: Shasha Vergara Home Meds and New Rx's Prescriptions: New benzonatate 100 mg capsule 100 mg PO TID PRN (Reason: cough) Qty: 10 RF: 0 Continued prochlorperazine maleate 10 mg tablet 10 mg PO RF: 0 acetaminophen 500 mg Tablet 1,000 mg PO Q6H RF: 0 phenylephrine-guaifenesin 2.5-100 mg/5 mL Liquid 5 ml PO DAILY PRNRF: 0 Discharge Instructions Instructions: Nosebleed (ED) Additional Instructions: If you have any further bleeding from your nose, apply the nasal clamp as directed. If the bleeding continues, remove the nasal clamp, blow your nose and then spray 2 sprays of Afrin within your nose on the side of bleeding and replace the clamp. Remove the clamp after 20 to 30 minutes and if the bleeding returns, you can return to the emergency department for further evaluation. Drink plenty of fluids and get plenty of rest. A prescription for cough medication has been sent electronically to your pharmacy. Take this as needed and directed for cough. Call your oncology office today to discuss recommendations regarding your chemotherapy. Return immediately to the emergency department if you develop any worsening or new concerning symptoms such as worsening shortness of breath, difficulty swallowing, persistent vomiting or any other concerns. Referrals: Juan Stallings MD [ [facility] STAFF PHYSICIAN] - Discharge Data Discharge Date/Time-TO BE ENTERED AT DEPARTURE: 03/28/21 11:58 Discharge Physician: Shasha Vergara Medical Decision Making 60-year-old male with a history of lung cancer still currently smoking seen here 2 days ago in the ED for cough and shortness of breath with a COVID-19 test that resulted positive yesterday presents for epistaxis with blood in oropharynx resulting in coughing up blood. Patient states his left-sided nosebleed lasted approximately 20 minutes and then resolved. He states he felt blood dripping down the back of his throat which caused him to cough bloody mucus. He has a chronic cough and shortness of breath related to his radiation therapy but states the cough has been worse over the past week, likely attributable to his COVID-19 diagnosis. He was seen here 2 days ago and had a CT chest negative for PE. As he currently denies any worsening of his cough or shortness of breath, do not see an indication for labs or repeat imaging. He denies any chest pain. He appears comfortable and nontoxic, speaking in full sentences. He has crusted blood within his left nares but no active source of bleeding noted. No blood in oropharynx. Lungs are clear bilaterally. Patient feels comfortable going home. CT chest 03/26/21 IMPRESSION: 1. No evidence of acute pulmonary emboli. No evidence of pulmonary infarction.No pleural effusions. 2. Cavitated mass/infiltrate in superior aspect of the right middle lobe noted. This has slightly increased in size when compared to prior CT scans. There appears to be some ipsilateral hilar adenopathy. No pleural effusions. Correlation with any prior biopsy result recommended. 3. Stable appearing finding in the pancreatic body as described above. Patient states he does not believe his COVID 19 test is positive. He initially stated he would like a repeat test because he does not believe the result. The positive test result was printed and given to patient. He was advised to obtain a booster shot once he is eligible. Discussed that his cough is likely worse in the setting of his COVID-19 diagnosis and expected side effects of radiation as he was advised. We will send a prescription for cough medication to his pharmacy which may help with cough. He is speaking in full sentences and airway is intact with no signs of respiratory distress or difficulty swallowing He is advised to call his oncologist for further recommendations ongoing for his chemotherapy. Advised to increase fluids and rest. Usual and customary return precautions given prior to discharge. Medical Records Medical records reviewed: Yes I reviewed the patient's medical records. Imaging Data Radiologic Study: Radiologist's impression: CT chest 03/26/21 IMPRESSION: 1. No evidence of acute pulmonary emboli. No evidence of pulmonary infarction.No pleural effusions. 2. Cavitated mass/infiltrate in superior aspect of the right middle lobe noted. This has slightly increased in size when compared to prior CT scans. There appears to be some ipsilateral hilar adenopathy. No pleural effusions. Correlation with any prior biopsy result recommended. 3. Stable appearing finding in the pancreatic body as described above. HPI General Mode of arrival: ambulatory. Date/Time Provider Initiated Documentation: 03/28/21 10:47. Limitations to Documentation: no limitations. Information obtained by: patient. HPI Narrative: Patient is a 60-year-old male with a history of lung cancer currently undergoing chemotherapy diagnosed with COVID yesterday presents for nosebleed earlier today with sensation of swallowing blood and then coughing up blood afterward here today after called [facility] oncology and was advised to come here for evaluation. Patient states he has dry heat at home. He states he had a nosebleed from the left side that lasted approximately 20 minutes today at home and then resolved. He states he felt blood dripping down the back of his throat which he then swallowed and coughed up. He states he has had an increase in the cough recently over the past week and was seen in the ED 2 days ago after directed by oncology to rule out pulmonary embolism and had a CT chest which was negative for PE and a COVID swab which resulted positive yesterday. He states he was told he would also have an increase in cough and sore throat due to his radiation treatment. He states since his cough has been worse over the past week, his sore throat does feel more sore. He denies any difficulty swallowing. He denies any fever, worsening shortness of breath or chest pain. Pt states he does not want to be here but his made him come here. Related Data Home Medications Medication Instructions Recorded Confirmed acetaminophen 1,000 mg PO Q6H 01/17/21 03/28/21 phenylephrine-guaifenesin 5 ml PO DAILY PRN 01/17/21 03/28/21 prochlorperazine maleate 10 mg PO 03/26/21 benzonatate 100 mg PO TID PRN #10 cap 03/28/21 Previous Rx's Medication Instructions Recorded benzonatate 100 mg PO TID PRN #10 cap 03/28/21 Allergies Allergy/AdvReac Type Severity Reaction Status Date / Time Penicillins AdvReac Intermediate Other (See Unverified 03/28/21 11:03 Comment) General Stated Complaint: Epistaxis MK: 4 Review of Systems All systems reviewed & are unremarkable except as noted in HPI and below Constitutional Constitutional: Reports as per HPI, Denies chills and Denies fever(s) Eyes Eyes: Denies blurry vision ENT Ears, Nose, Mouth, and Throat: Denies dizziness, Reports epistaxis, Denies sore throat and Denies throat swelling Cardiovascular Cardiovascular: Denies chest pain and Denies dyspnea Respiratory Respiratory: Denies cough and Denies dyspnea Gastrointestinal Gastrointestinal: Denies abdominal pain, Denies diarrhea and Denies vomiting Genitourinary Genitourinary: Denies hematuria and Denies dysuria Musculoskeletal Musculoskeletal: Denies back pain and Denies numbness Integumentary/Breasts Skin/Breast: Denies lesions and Denies rash Neurologic Neurologic: Denies dizziness, Denies localized weakness and Denies numbness Allergic/Immunologic Allergic/Immunologic: Denies throat swelling PFSH All Active Problems (Updated 03/28/21 @ 11:42 by Shasha Vergara DO) CAP (community acquired pneumonia) (Acute) Cough (Acute) Epistaxis (Acute) Medical History Lung cancer Social History Smoking/Tobacco Use Status: Current every day Tobacco Type: smokeless tobacco Smoking risk assessment performed?: Yes Alcohol Intake: never Drug use: Never Substance use type: does not use Do you feel safe at home: Yes Do you feel safe in your relationship?: Yes Exam Const General: cooperative, healthy appearing and no acute distress HENMT Head: normal to inspection Ears: hearing grossly normal bilaterally and external ears normal General nose exam: external nose normal and other (crusted blood within L nares. No active source of bleeding) Face and sinus: normal facial exam Mouth: oral mucosae normal Throat: posterior oropharynx normal, uvula midline and other (no blood in oropharynx) Eyes General: appearance normal, both eyes and all related structures EOM: EOM intact bilaterally Neck Neck: normal visual inspection and No submandibular swelling Lymphatic: no lymphadenopathy noted Chest Chest: normal inspection of the chest and no tenderness Resp Effort & Inspection: normal respiratory effort and able to speak in complete sentences Auscultation: clear to auscultation bilaterally Cardio Rate: regular rate Rhythm: regular rhythm GI Palpation: soft, not firm, not rigid and nontender Auscultation: normal bowel sounds Skin General skin exam: no rashes or lesions noted Neuro General: patient alert, patient awake and patient oriented x3 Cognition: normal cognition Speech: speech normal Motor: muscle tone normal throughout Sensory Exam: no sensory deficits noted Extrem General: normal to inspection, full ROM, capillary refill normal, no calf tenderness bilaterally and no edema Psych Appearance: grossly normal Mental Status: mental status grossly normal Speech and Movement: speech and movement normal Affect: normal affect Course Vital Signs Vital signs: Vital Signs Temperature 97.9 F 03/28/21 10:57 Pulse 103 H 03/28/21 10:57 Respiratory Rate 16 03/28/21 10:57 Blood Pressure 136/93 H 03/28/21 10:57 Pulse Oximetry 98 03/28/21 10:57 Temperature 97.9 F 03/28/21 10:57 Temperature Source Skin 03/28/21 10:57 Pulse 103 H 03/28/21 10:57 Respiratory Rate 16 03/28/21 10:57 Respiratory Effort 03/28/21 10:57 Blood Pressure 136/93 H 03/28/21 10:57 Blood Pressure Position Sitting 03/28/21 10:57 Pulse Oximetry 98 03/28/21 10:57 Oxygen Delivery Method Room Air 03/28/21 10:57 Oxygen Flow Rate 0 03/28/21 10:57 Pain Level 8 03/28/21 10:57 Comment 03/28/21 10:57
[2021-03-28] MEDS: Oxymetazolone 0.05% SPRAY 15 ML BTL NS (12:02)
== END 2021-03-28 11:58 | disposition home or self-care (01) ==
PROVIDERS: Emergency Provider Physician Assistant; PCP Internal Medicine
DX: R04.0 Epistaxis (principal); U07.1 COVID-19; C34.90 Malignant neoplasm of unspecified part of unspecified bronchus or lung
CPT/HCPCS: 30901; 99283

== ENCOUNTER 2021-04-06 01:15 | Outpatient (RCR) | payer OTHER, SELFPAY ==
[2021-03-09 08:07] LABS: Abs Immature Grans 0.04 10^3/uL (0.0-0.06); Absolute Basophil Count 0.02 10^3/uL (0.0-0.2); Absolute Eosinophil Count 0.08 10^3/uL (0.0-0.7); Absolute Lymphocyte Count 0.59 10^3/uL (1.2-3.4); Absolute Monocyte Count 0.19 10^3/uL (0.1-0.8); Absolute Neutrophil Count 3.76 10^3/uL (1.2-6.7); Basophils % 0.4; Eosinophils % 1.7; HCT 41.6 % (40.0-50.0); Immature Grans % 0.9; Lymphocytes % 12.6; MCH 29.3 pg (27.0-33.0); MCHC 33.7 % (32.0-36.0); MPV 9.3 fL (8.0-11.0); Monocytes % 4.1; Neutrophils % 80.3; Nucleated RBC 0 %; Platelet Count 244 10^3/uL (130-400); RBC 4.78 10^6/uL (4.36-5.78); RDW 12.2 % (11.8-14.1); RDW-SD 38.9 fL; WBC 4.68 10^3/uL (4.4-10.8)
[2021-03-09 08:44] LABS: ALT 35 U/L (16-63); AST 22 U/L (15-37); Alkaline Phosphatase 76 U/L (46-116); Anion Gap 8.6 mmol/L (3-11); BUN 16 mg/dL (7-18); Bilirubin, Total 0.6 mg/dL (0.2-1.0); CO2 29.4 mmol/L (21.0-32.0); CREATININE 1.2 mg/dL (0.70-1.30); Calcium 9.3 mg/dL (8.5-10.1); Chloride 102 mmol/L (98-107); Glucose 134 mg/dL (74-106); Magnesium 2.1 mg/dL (1.8-2.4); Sodium 140 mmol/L (136-145); Total Protein 7.9 g/dL (6.4-8.2)
[2021-03-16 07:37] LABS: Abs Immature Grans 0.02 10^3/uL (0.0-0.06); Absolute Basophil Count 0.01 10^3/uL (0.0-0.2); Absolute Eosinophil Count 0.04 10^3/uL (0.0-0.7); Absolute Lymphocyte Count 0.43 10^3/uL (1.2-3.4); Absolute Monocyte Count 0.26 10^3/uL (0.1-0.8); Absolute Neutrophil Count 2.76 10^3/uL (1.2-6.7); Basophils % 0.3; Eosinophils % 1.1; HCT 39.8 % (40.0-50.0); HGB 13.3 g/dL (13.5-17.5); Immature Grans % 0.6; Lymphocytes % 12.2; MCH 29.2 pg (27.0-33.0); MCHC 33.4 % (32.0-36.0); MCV 87.5 fL (80-95); MPV 8.6 fL (8.0-11.0); Monocytes % 7.4; Neutrophils % 78.4; Nucleated RBC 0 %; Platelet Count 195 10^3/uL (130-400); RBC 4.55 10^6/uL (4.36-5.78); RDW 12.5 % (11.8-14.1); RDW-SD 39.1 fL; WBC 3.52 10^3/uL (4.4-10.8)
[2021-03-16 08:06] LABS: ALT 29 U/L (16-63); AST 17 U/L (15-37); Alkaline Phosphatase 62 U/L (46-116); Anion Gap 6.7 mmol/L (3-11); BUN 16 mg/dL (7-18); Bilirubin, Total 0.9 mg/dL (0.2-1.0); CO2 30.3 mmol/L (21.0-32.0); CREATININE 1.2 mg/dL (0.70-1.30); Calcium 9.1 mg/dL (8.5-10.1); Chloride 101 mmol/L (98-107); Glucose 107 mg/dL (74-106); Magnesium 1.8 mg/dL (1.8-2.4); Potassium 4.1 mmol/L (3.5-5.1); Sodium 138 mmol/L (136-145); Total Protein 8.1 g/dL (6.4-8.2)
[2021-03-23 07:29] LABS: Abs Immature Grans 0.05 10^3/uL (0.0-0.06); Absolute Basophil Count 0.01 10^3/uL (0.0-0.2); Absolute Eosinophil Count 0.03 10^3/uL (0.0-0.7); Absolute Lymphocyte Count 0.21 10^3/uL (1.2-3.4); Absolute Monocyte Count 0.22 10^3/uL (0.1-0.8); Absolute Neutrophil Count 3.35 10^3/uL (1.2-6.7); Basophils % 0.3; Eosinophils % 0.8; HCT 37.2 % (40.0-50.0); HGB 12.9 g/dL (13.5-17.5); Immature Grans % 1.3; Lymphocytes % 5.4; MCH 30.1 pg (27.0-33.0); MCHC 34.7 % (32.0-36.0); MCV 86.9 fL (80-95); MPV 8.6 fL (8.0-11.0); Monocytes % 5.7; Neutrophils % 86.5; Nucleated RBC 0 %; Platelet Count 176 10^3/uL (130-400); RBC 4.28 10^6/uL (4.36-5.78); RDW 13.2 % (11.8-14.1); RDW-SD 38.8 fL; WBC 3.87 10^3/uL (4.4-10.8)
[2021-03-23 07:42] LABS: ALT 25 U/L (16-63); AST 21 U/L (15-37); Albumin 4.2 g/dL (3.4-5.0); Alkaline Phosphatase 68 U/L (46-116); Anion Gap 8.8 mmol/L (3-11); BUN 21 mg/dL (7-18); Bilirubin, Total 0.9 mg/dL (0.2-1.0); CO2 29.2 mmol/L (21.0-32.0); CREATININE 1.2 mg/dL (0.70-1.30); Calcium 9.3 mg/dL (8.5-10.1); Chloride 102 mmol/L (98-107); Glucose 103 mg/dL (74-106); Magnesium 1.9 mg/dL (1.8-2.4); Potassium 4.2 mmol/L (3.5-5.1); Sodium 140 mmol/L (136-145); Total Protein 8.1 g/dL (6.4-8.2)
[2021-04-06 07:43] LABS: Abs Immature Grans 0.03 10^3/uL (0.0-0.06); Absolute Basophil Count 0.01 10^3/uL (0.0-0.2); Absolute Eosinophil Count 0.01 10^3/uL (0.0-0.7); Absolute Lymphocyte Count 0.21 10^3/uL (1.2-3.4); Absolute Monocyte Count 0.81 10^3/uL (0.1-0.8); Basophils % 0.2; Eosinophils % 0.2; HCT 30.6 % (40.0-50.0); HGB 10.6 g/dL (13.5-17.5); Immature Grans % 0.6; MCH 29.9 pg (27.0-33.0); MCHC 34.6 % (32.0-36.0); MCV 86.2 fL (80-95); MPV 8.8 fL (8.0-11.0); Monocytes % 15.4; Neutrophils % 79.6; Nucleated RBC 0 %; Platelet Count 210 10^3/uL (130-400); RBC 3.55 10^6/uL (4.36-5.78); RDW 14.9 % (11.8-14.1); RDW-SD 46.1 fL; WBC 5.27 10^3/uL (4.4-10.8)
[2021-04-06 08:40] LABS: ALT 15 U/L (16-63); AST 16 U/L (15-37); Albumin 3.2 g/dL (3.4-5.0); Alkaline Phosphatase 56 U/L (46-116); Anion Gap 8.4 mmol/L (3-11); BUN 14 mg/dL (7-18); Bilirubin, Total 0.9 mg/dL (0.2-1.0); CO2 30.6 mmol/L (21.0-32.0); CREATININE 1.2 mg/dL (0.70-1.30); Chloride 95 mmol/L (98-107); Glucose 119 mg/dL (74-106); Potassium 3.8 mmol/L (3.5-5.1); Sodium 134 mmol/L (136-145); Total Protein 7.8 g/dL (6.4-8.2)
== END 2021-04-06 23:59 | disposition home or self-care (01) ==
LOC: INF 01:15
PROVIDERS: PCP Internal Medicine; Visit Provider Internal Medicine Medical Oncology
DX: C34.11 Malignant neoplasm of upper lobe, right bronchus or lung (principal)
CPT/HCPCS: 36415; 80053; 83735; 85025

== ENCOUNTER 2021-04-20 00:41 | Outpatient (RCR) | payer OTHER, SELFPAY ==
[2021-04-13 07:36] LABS: Abs Immature Grans 0.02 10^3/uL (0.0-0.06); Absolute Basophil Count 0.01 10^3/uL (0.0-0.2); Absolute Eosinophil Count 0.03 10^3/uL (0.0-0.7); Absolute Lymphocyte Count 0.17 10^3/uL (1.2-3.4); Absolute Monocyte Count 0.24 10^3/uL (0.1-0.8); Basophils % 0.3; HCT 30.2 % (40.0-50.0); Immature Grans % 0.7; Lymphocytes % 5.5; MCH 29.9 pg (27.0-33.0); MCHC 33.1 % (32.0-36.0); MCV 90.4 fL (80-95); MPV 8.4 fL (8.0-11.0); Monocytes % 7.8; Neutrophils % 84.7; Nucleated RBC 0 %; Platelet Count 229 10^3/uL (130-400); RBC 3.34 10^6/uL (4.36-5.78); RDW 14.6 % (11.8-14.1); RDW-SD 47.1 fL; WBC 3.07 10^3/uL (4.4-10.8)
[2021-04-13 07:49] LABS: ALT 15 U/L (16-63); AST 14 U/L (15-37); Albumin 3.3 g/dL (3.4-5.0); Alkaline Phosphatase 54 U/L (46-116); Anion Gap 6.1 mmol/L (3-11); BUN 12 mg/dL (7-18); Bilirubin, Total 0.6 mg/dL (0.2-1.0); CO2 30.9 mmol/L (21.0-32.0); CREATININE 1.1 mg/dL (0.70-1.30); Calcium 9.4 mg/dL (8.5-10.1); Chloride 103 mmol/L (98-107); Glucose 113 mg/dL (74-106); Magnesium 1.8 mg/dL (1.8-2.4); Potassium 4.3 mmol/L (3.5-5.1); Sodium 140 mmol/L (136-145); Total Protein 7.6 g/dL (6.4-8.2)
[2021-04-20 08:37] LABS: Abs Immature Grans 0.02 10^3/uL (0.0-0.06); Absolute Eosinophil Count 0.02 10^3/uL (0.0-0.7); Absolute Lymphocyte Count 0.23 10^3/uL (1.2-3.4); Absolute Neutrophil Count 2.22 10^3/uL (1.2-6.7); Eosinophils % 0.7; HCT 33.3 % (40.0-50.0); HGB 11.2 g/dL (13.5-17.5); Immature Grans % 0.7; Lymphocytes % 7.7; MCH 30.5 pg (27.0-33.0); MCHC 33.6 % (32.0-36.0); MCV 90.7 fL (80-95); MPV 8.3 fL (8.0-11.0); Monocytes % 16.7; Neutrophils % 74.2; Nucleated RBC 0 %; Platelet Count 242 10^3/uL (130-400); RBC 3.67 10^6/uL (4.36-5.78); RDW 16.1 % (11.8-14.1); RDW-SD 51.6 fL; WBC 2.99 10^3/uL (4.4-10.8)
[2021-04-20 08:56] LABS: ALT 18 U/L (16-63); AST 17 U/L (15-37); Albumin 3.4 g/dL (3.4-5.0); Alkaline Phosphatase 59 U/L (46-116); Anion Gap 6.6 mmol/L (3-11); BUN 11 mg/dL (7-18); Bilirubin, Total 0.5 mg/dL (0.2-1.0); CO2 28.4 mmol/L (21.0-32.0); CREATININE 1.2 mg/dL (0.70-1.30); Calcium 9.3 mg/dL (8.5-10.1); Chloride 103 mmol/L (98-107); Glucose 103 mg/dL (74-106); Magnesium 2.2 mg/dL (1.8-2.4); Potassium 3.8 mmol/L (3.5-5.1); Sodium 138 mmol/L (136-145); Total Protein 7.6 g/dL (6.4-8.2)
== END 2021-05-04 23:59 | disposition home or self-care (01) ==
LOC: INF 00:41
PROVIDERS: PCP Internal Medicine; Visit Provider Internal Medicine Medical Oncology
DX: C34.11 Malignant neoplasm of upper lobe, right bronchus or lung (principal)
CPT/HCPCS: 36415; 80053; 99195; 83735; 85025

== ENCOUNTER 2021-05-18 00:55 | Outpatient (RCR) | payer OTHER, SELFPAY ==
[2021-05-18 14:13] LABS: Abs Immature Grans 0.03 10^3/uL (0.0-0.06); Absolute Basophil Count 0.02 10^3/uL (0.0-0.2); Absolute Eosinophil Count 0.27 10^3/uL (0.0-0.7); Absolute Lymphocyte Count 0.36 10^3/uL (1.2-3.4); Absolute Monocyte Count 0.71 10^3/uL (0.1-0.8); Absolute Neutrophil Count 4.03 10^3/uL (1.2-6.7); Basophils % 0.4; HGB 10.4 g/dL (13.5-17.5); Immature Grans % 0.6; Lymphocytes % 6.6; MCH 30.1 pg (27.0-33.0); MCHC 32.5 % (32.0-36.0); MCV 92.8 fL (80-95); MPV 8.8 fL (8.0-11.0); Monocytes % 13.1; Neutrophils % 74.3; Nucleated RBC 0 %; Platelet Count 272 10^3/uL (130-400); RBC 3.45 10^6/uL (4.36-5.78); RDW 13.7 % (11.8-14.1); RDW-SD 46.4 fL; WBC 5.42 10^3/uL (4.4-10.8)
[2021-05-18 14:39] LABS: ALT 15 U/L (16-63); AST 13 U/L (15-37); Albumin 3.1 g/dL (3.4-5.0); Alkaline Phosphatase 65 U/L (46-116); Anion Gap 6.1 mmol/L (3-11); BUN 12 mg/dL (7-18); Bilirubin, Total 0.4 mg/dL (0.2-1.0); CO2 30.9 mmol/L (21.0-32.0); CREATININE 0.9 mg/dL (0.70-1.30); Calcium 8.9 mg/dL (8.5-10.1); Chloride 104 mmol/L (98-107); FREE T4 0.92 ng/dL (0.76-1.46); Glucose 80 mg/dL (74-106); Potassium 3.5 mmol/L (3.5-5.1); Sodium 141 mmol/L (136-145); TSH 0.47 uIU/mL (0.36-3.74); Total Protein 7.5 g/dL (6.4-8.2)
== END 2021-06-04 23:59 | disposition home or self-care (01) ==
LOC: INF 00:55
PROVIDERS: PCP Internal Medicine; Visit Provider Internal Medicine Medical Oncology
DX: C34.11 Malignant neoplasm of upper lobe, right bronchus or lung (principal)
CPT/HCPCS: 36415; 80053; 83735; 84439; 84443; 85025

== ENCOUNTER 2021-05-28 14:27 | Emergency (ER) | payer OTHER, SELFPAY ==
[2021-05-28] VITALS (22 sets, daily range): BP systolic 112–148; BP diastolic 66–80; PULSE 94–108; RESP 15–31; TEMP 36.5; O2SAT 96–99
--- NOTE | 2021-05-28 14:30 | RT.EKG_ITS ---
APPROVED REPORT Exam: Resting ECG Reason for Exam: CHEST PAIN Patient Location: E HR:102 bpm ECG Measurements Heart Rate 102 AXIS RI 168 P 73 QRSd 89 QRS 39 QT 322 T 58 QTc 420 Conclusion Sinus tachycardia...rate> 99
[2021-05-28 15:12] LABS: Source Nasal/Nares
[2021-05-28 15:12] LABS: Abs Immature Grans 0.06 10^3/uL (0.0-0.06); Absolute Basophil Count 0.02 10^3/uL (0.0-0.2); Absolute Eosinophil Count 0.23 10^3/uL (0.0-0.7); Absolute Lymphocyte Count 0.37 10^3/uL (1.2-3.4); Absolute Monocyte Count 0.96 10^3/uL (0.1-0.8); Absolute Neutrophil Count 4.92 10^3/uL (1.2-6.7); Basophils % 0.3; Eosinophils % 3.5; HCT 34.6 % (40.0-50.0); HGB 11.1 g/dL (13.5-17.5); Immature Grans % 0.9; Lymphocytes % 5.6; MCH 29.1 pg (27.0-33.0); MCHC 32.1 % (32.0-36.0); MCV 90.6 fL (80-95); MPV 8.8 fL (8.0-11.0); Monocytes % 14.6; Neutrophils % 75.1; Nucleated RBC 0 %; Platelet Count 292 10^3/uL (130-400); RBC 3.82 10^6/uL (4.36-5.78); RDW 13.2 % (11.8-14.1); RDW-SD 43.8 fL; WBC 6.56 10^3/uL (4.4-10.8)
--- NOTE | 2021-05-28 15:17 | W.ED.GENAD ---
Discharge Plan Disposition Patient Disposition: HOME Condition: Stable Discharge Details Clinical Impression: CAP (community acquired pneumonia) Primary Care Provider: Nick Martinez ED Provider: Kalee Hyde Home Meds and New Rx's Prescriptions: New doxycycline hyclate 100 mg tablet 100 mg PO BID 10 Days Qty: 20 0RF Continued prochlorperazine maleate 10 mg tablet 10 mg PO 0RF acetaminophen 500 mg Tablet 1,000 mg PO Q6H 0RF phenylephrine-guaifenesin 2.5-100 mg/5 mL Liquid 5 ml PO DAILY PRN0RF benzonatate 100 mg capsule 100 mg PO TID PRN (Reason: cough) Qty: 10 0RF Discharge Instructions Instructions: Pneumonia (ED) Additional Instructions: Use the albuterol inhaler 1 to 2 puffs every 4-6 hours as needed for shortness of breath or wheezing. Take the antibiotic as directed twice daily for the next 10 days. Please eat yogurt or take a probiotic while on this medication. Follow up with primary care provider in 3-5 days. Return to ED sooner if any worsening or concerns. Increase oral fluids. Please take Tylenol or Ibuprofen with food every 4-6 hours as needed for pain and swelling. Referrals: Nick Martinez MD [Primary Care Provider] - 5 days Discharge Data Discharge Date/Time-TO BE ENTERED AT DEPARTURE: 05/28/21 17:15 Medical Decision Making patient appears well mildly tachycardic Afebrile and otherwise nontoxic Given cancer history, tachycardia and right-sided discomfort, PE study was ordered, pending at this time Diagnostic labs reviewed, negative troponin, BNP Care transitioned to Dianne Thomas pending CTA and reassessment Differentials include radiation pneumonitis Given DuoNeb treatment, no hypoxia Low suspicion for cardiac etiology of patient's complaints given 2 weeks of symptoms, reproducible chest wall pain, and clinical exam findings I portion, physician certified anesthesiologist assistant calling from them. 1608: SJ: Care assumed from provider (SUNG Hubbard Please see their initial HPI, PE, and documentation. Discussed patient details and case and pending workup and disposition. Patient is hemodynamically stable, and alert and oriented. At the time of signout we are awaiting CT chest and labs. CBC shows no leukocytosis, CMP largely within normal limits, initial troponin within normal limits proBNP [address] with contrast: FINDINGS: Tracheobronchial tree: Patent where visualized. Pulmonary parenchyma: The 6 mm left apical nodule is unchanged. There has been interval development of a multifocal infiltrate involving the right upper, middle and lower lobes. The left lung is clear. There has been no change in appearance of the right middle lobe mass/infiltrate. Pulmonary Arteries: No evidence of filling defect to suggest pulmonary emboli. Mediastinum and Amaris: No dominant adenopathy or fluid collection. The esophagus is unremarkable. Small hiatal hernia. Visualized thyroid gland: Unremarkable. Pleura: No effusion or pneumothorax. Heart: The heart is not dilated. No coronary artery calcifications are seen. No pericardial effusion. Aorta: Thoracic aorta non-dilated. No evidence of dissection. Atherosclerosis. Upper abdomen: Unremarkable. Soft tissues: Unremarkable. Bones: Within normal limits for the patient's age. IMPRESSION: 1. No evidence of pulmonary embolism, thoracic aortic dissection or aneurysm. 2. Multifocal infiltrate in the right upper, middle and lower lobes suggestive of pneumonia. 3. Results of this exam have been verbally communicated with provider. 1705: Discussed CT results with patient he would prefer to be discharged home at this time which I feel is appropriate. Patient to be prescribed doxycycline and given an albuterol inhaler. Discussed strict return instructions, verbalized understanding. This text was generated using [employer] dictation system, please disregard any oddities of phrase or misspellings. Medical Records Medical records reviewed: Yes I reviewed the patient's medical records. Lab Data Lab results reviewed: Yes I reviewed the patient's lab results. HPI General Date/Time Provider Initiated Documentation: 05/28/21 15:02. HPI Narrative: This 60-year-old gentleman with non-small cell lung cancer presents with report of right-sided chest pain for the past 2 weeks with cough for the past month. States the pain is exacerbated with breathing and coughing. Denies any hemoptysis. Reportedly completed chemotherapy 1 year ago and radiation approximately 1 month ago. Denies history of similar symptoms in the past. Denies any calf pain or swelling. Denies any significantly worsened shortness of breath. Related Data Home Medications Medication Instructions Recorded Confirmed acetaminophen 500 mg tablet 1,000 mg PO Q6H 01/17/21 03/28/21 phenylephrine-guaifenesin 2.5 5 ml PO DAILY PRN 01/17/21 03/28/21 mg-100 mg/5 mL oral liquid prochlorperazine maleate 10 mg 10 mg PO 03/26/21 tablet benzonatate 100 mg capsule 100 mg PO TID PRN #10 cap 03/28/21 doxycycline hyclate 100 mg tablet 100 mg PO BID 10 Days #20 tab 05/28/21 Previous Rx's Medication Instructions Recorded benzonatate 100 mg capsule 100 mg PO TID PRN #10 cap 03/28/21 doxycycline hyclate 100 mg tablet 100 mg PO BID 10 Days #20 tab 05/28/21 Allergies Allergy/AdvReac Type Severity Reaction Status Date / Time Penicillins AdvReac Intermediate Other (See Unverified 03/28/21 11:03 Comment) General Stated Complaint: Chest Pain MK: 3 Review of Systems All systems reviewed & are unremarkable except as noted in HPI and below PFSH All Active Problems (Updated 05/28/21 @ 17:06 by Kalee Hyde) CAP (community acquired pneumonia) (Acute) Medical History Lung cancer Social History Smoking/Tobacco Use Status: Current every day Tobacco Type: smokeless tobacco Smoking risk assessment performed?: Yes Alcohol Intake: never Drug use: Never Substance use type: does not use Do you feel safe at home: Yes Do you feel safe in your relationship?: Yes Exam Const General: cooperative, comfortable and no acute distress HENMT Head: normal to inspection Eyes Pupils: PERRL Resp Effort & Inspection: normal respiratory effort Other: crackles right lung, no distress Cardio Rate: tachycardic Rhythm: regular rhythm Other: no murmur GI Inspection: normal to inspection Skin General skin exam: no rashes or lesions noted Neuro General: patient alert and patient oriented x3 Extrem Other: distal pulses intact, no calf swelling or tenderness Course Vital Signs Vital signs: Vital Signs Temperature 36.5 C 05/28/21 14:33 Pulse 105 H 05/28/21 14:33 Respiratory Rate 20 05/28/21 14:33 Blood Pressure 121/70 05/28/21 14:33 Pulse Oximetry 98 05/28/21 14:33 Temperature 36.5 C 05/28/21 14:33 Pulse 105 H 05/28/21 14:33 Respiratory Rate 20 05/28/21 14:33 Respiratory Effort Short of Breath 05/28/21 14:38 Respiratory Depth Normal 05/28/21 14:38 Respiratory Pattern Normal 05/28/21 14:38 Blood Pressure 121/70 05/28/21 14:33 Blood Pressure Position Supine 05/28/21 14:33 Pulse Oximetry 98 05/28/21 14:33 Oxygen Delivery Method Room Air 05/28/21 14:33 Oxygen Flow Rate 0 05/28/21 14:33 Pain Level 5 05/28/21 14:33 Lab/Test Results Lab/Test Results: Laboratory Tests Range/Units 05/28/21 15:05 COVID-19 Source Nasal/Nares Sign Out Sign Out Data: Sign Out Comment: pending cta and labs Last updated by Iliana Champagne PA at 05/28/21 15:56
[2021-05-28 15:34] LABS: ALT 13 U/L (16-63); AST 12 U/L (15-37); Albumin 3.3 g/dL (3.4-5.0); Alkaline Phosphatase 75 U/L (46-116); Anion Gap 7.6 mmol/L (3-11); BUN 12 mg/dL (7-18); Bilirubin, Total 0.4 mg/dL (0.2-1.0); CO2 28.4 mmol/L (21.0-32.0); CREATININE 0.9 mg/dL (0.70-1.30); Calcium 9.3 mg/dL (8.5-10.1); Chloride 102 mmol/L (98-107); Glucose 93 mg/dL (74-106); NT-proBNP 28 pg/mL (<300); Potassium 3.7 mmol/L (3.5-5.1); Sodium 138 mmol/L (136-145); Total Protein 8.1 g/dL (6.4-8.2); Troponin I < 50 ng/L (<or=60)
[2021-05-28 15:53] LABS: COVID-19 PCR Negative (Negative)
--- NOTE | 2021-05-28 16:00 | DI.CT_ITS ---
Exam(s) CT CHEST PE CTA EXAM: CT CHEST PE CTA CLINICAL HISTORY: Right sided chest pain, SOB, Hx of Lung CA. TECHNIQUE: Imaging Protocol: Axial CT angiography was performed with multi-slice acquisition and mu lti-planar and/or 3D reconstructions. CONTRAST MATERIAL: Intravenous: Omnipaque 350 Contrast volume:100 mL COMPARISON: CT CT CHEST PE CTA from 03/26/2021 FINDINGS: Tracheobronchial tree: Patent where visualized. Pulmonary parenchyma: The 6 mm left apical nodule is unchanged. There has been interval development of a multifocal infiltrate involving the right upper, middle and lower lobes. The left lung is clear . There has been no change in appearance of the right middle lobe mass/infiltrate. Pulmonary Arteries: No evidence of filling defect to suggest pulmonary emboli. Mediastinum and Amaris: No dominant adenopathy or fluid collection. The esophagus is unremarkable. Sm all hiatal hernia. Visualized thyroid gland: Unremarkable. Pleura: No effusion or pneumothorax. Heart: The heart is not dilated. No coronary artery calcifications are seen. No pericardial effusion. Aorta: Thoracic aorta non-dilated. No evidence of dissection. Atherosclerosis. Upper abdomen: Unremarkable. Soft tissues: Unremarkable. Bones: Within normal limits for the patient's age. IMPRESSION: 1. No evidence of pulmonary embolism, thoracic aortic dissection or aneurysm. 2. Multifocal infiltrate in the right upper, middle and lower lobes suggestive of pneumonia. 3. Results of this exam have been verbally communicated with provider. RADIATION DOSE DELIVERED: 416.98mGy.cm Total DLP DATA REPOSITORY: All CT scans at this facility are submitted to the National Radiology Data Registry (NRDR) Dose Index Registry (DIR) with the [employer] (A[employer]). RADIATION OPTIMIZATION: All CT scans at this facility use at least one of these dose optimization te chniques: automated exposure control; mA and/or kV adjustment per patient size (includes targeted exa ms where dose is matched to clinical indication); or iterative reconstruction.
[2021-05-28] MEDS: Omnipaque 350 MG/ML 100 ML BTL IJ (16:33)
[2021-05-28] MEDS: Doxycycline Hyclate 100 MG CAP PO (17:12)
[2021-05-28] MEDS: Albuterol HFA 8 GM 60 PUFF INH IH (17:12)
== END 2021-05-28 17:15 | disposition home or self-care (01) ==
PROVIDERS: Physician Assistant; Emergency Provider Registered Nurse Emergency; PCP Internal Medicine
DX: J18.9 Pneumonia, unspecified organism (principal); R00.0 Tachycardia, unspecified; R06.02 Shortness of breath; C34.90 Malignant neoplasm of unspecified part of unspecified bronchus or lung; F17.210 Nicotine dependence, cigarettes, uncomplicated
CPT/HCPCS: 36415; 71275; 80053; 87635; 93005; 99284; 99285; 83735; 83880; 84484; 85025; 93010; J3490

== ENCOUNTER 2021-06-15 01:50 | Outpatient (RCR) | payer OTHER, SELFPAY ==
[2021-06-15 13:54] LABS: Abs Immature Grans 0.09 10^3/uL (0.0-0.06); Absolute Basophil Count 0.01 10^3/uL (0.0-0.2); Absolute Eosinophil Count 0.27 10^3/uL (0.0-0.7); Absolute Lymphocyte Count 0.46 10^3/uL (1.2-3.4); Absolute Monocyte Count 0.67 10^3/uL (0.1-0.8); Absolute Neutrophil Count 5.04 10^3/uL (1.2-6.7); Basophils % 0.2; Eosinophils % 4.1; HCT 37.3 % (40.0-50.0); Immature Grans % 1.4; MCH 28.4 pg (27.0-33.0); MCHC 32.2 % (32.0-36.0); MCV 88.4 fL (80-95); MPV 8.8 fL (8.0-11.0); Monocytes % 10.2; Neutrophils % 77.1; Nucleated RBC 0 %; Platelet Count 280 10^3/uL (130-400); RBC 4.22 10^6/uL (4.36-5.78); RDW 13.1 % (11.8-14.1); WBC 6.54 10^3/uL (4.4-10.8)
[2021-06-15 14:48] LABS: ALT 12 U/L (16-63); AST 17 U/L (15-37); Albumin 3.4 g/dL (3.4-5.0); Alkaline Phosphatase 74 U/L (46-116); Anion Gap 8.3 mmol/L (3-11); BUN 12 mg/dL (7-18); Bilirubin, Total 0.3 mg/dL (0.2-1.0); CO2 27.7 mmol/L (21.0-32.0); Calcium 9.1 mg/dL (8.5-10.1); Chloride 103 mmol/L (98-107); FREE T4 1.01 ng/dL (0.76-1.46); Glucose 110 mg/dL (74-106); Magnesium 2.1 mg/dL (1.8-2.4); Potassium 3.7 mmol/L (3.5-5.1); Sodium 139 mmol/L (136-145); TSH 0.45 uIU/mL (0.36-3.74); Total Protein 7.8 g/dL (6.4-8.2)
== END 2021-07-04 23:59 | disposition home or self-care (01) ==
LOC: INF 01:50
PROVIDERS: PCP Internal Medicine; Visit Provider Internal Medicine Medical Oncology
DX: C34.11 Malignant neoplasm of upper lobe, right bronchus or lung (principal)
CPT/HCPCS: 36415; 80053; 83735; 84439; 84443; 85025

== ENCOUNTER 2021-07-13 00:53 | Outpatient (RCR) | payer OTHER, SELFPAY ==
[2021-07-13 12:51] LABS: Abs Immature Grans 0.07 10^3/uL (0.0-0.06); Absolute Basophil Count 0.03 10^3/uL (0.0-0.2); Absolute Eosinophil Count 0.13 10^3/uL (0.0-0.7); Absolute Lymphocyte Count 0.59 10^3/uL (1.2-3.4); Absolute Monocyte Count 0.63 10^3/uL (0.1-0.8); Absolute Neutrophil Count 5.32 10^3/uL (1.2-6.7); Basophils % 0.4; Eosinophils % 1.9; HCT 40.5 % (40.0-50.0); HGB 13.3 g/dL (13.5-17.5); Lymphocytes % 8.7; MCH 28.6 pg (27.0-33.0); MCHC 32.8 % (32.0-36.0); MCV 87 fL (80-95); MPV 8.7 fL (8.0-11.0); Monocytes % 9.3; Neutrophils % 78.7; Platelet Count 196 10^3/uL (130-400); RBC 4.65 10^6/uL (4.36-5.78); RDW 13.8 % (11.8-14.1); RDW-SD 43.9 fL; WBC 6.77 10^3/uL (4.4-10.8)
[2021-07-13 13:26] LABS: ALT 16 U/L (16-63); AST 14 U/L (15-37); Albumin 3.6 g/dL (3.4-5.0); Alkaline Phosphatase 72 U/L (46-116); Anion Gap 8.2 mmol/L (3-11); BUN 19 mg/dL (7-18); Bilirubin, Total 0.5 mg/dL (0.2-1.0); CO2 27.8 mmol/L (21.0-32.0); Calcium 9.4 mg/dL (8.5-10.1); Chloride 103 mmol/L (98-107); Glucose 104 mg/dL (74-106); Potassium 3.9 mmol/L (3.5-5.1); Sodium 139 mmol/L (136-145); TSH 1.11 uIU/mL (0.36-3.74); Total Protein 7.7 g/dL (6.4-8.2)
== END 2021-08-04 23:59 | disposition home or self-care (01) ==
LOC: INF 00:53
PROVIDERS: PCP Internal Medicine; Visit Provider Internal Medicine Medical Oncology
DX: C34.11 Malignant neoplasm of upper lobe, right bronchus or lung (principal)
CPT/HCPCS: 36415; 80053; 84439; 84443; 85025

== ENCOUNTER 2021-08-10 13:46 | Outpatient (RCR) | payer OTHER, SELFPAY ==
[2021-08-10 13:59] LABS: Absolute Basophil Count 0.02 10^3/uL (0.0-0.2); Absolute Eosinophil Count 0.12 10^3/uL (0.0-0.7); Absolute Lymphocyte Count 0.67 10^3/uL (1.2-3.4); Absolute Neutrophil Count 4.63 10^3/uL (1.2-6.7); Basophils % 0.3; Eosinophils % 1.9; HCT 40.7 % (40.0-50.0); HGB 13.5 g/dL (13.5-17.5); Immature Grans % 1.6; Lymphocytes % 10.7; MCH 29.1 pg (27.0-33.0); MCHC 33.2 % (32.0-36.0); MCV 88 fL (80-95); Monocytes % 11.2; Neutrophils % 74.3; Platelet Count 201 10^3/uL (130-400); RBC 4.64 10^6/uL (4.36-5.78); RDW 13.9 % (11.8-14.1); RDW-SD 44.4 fL; WBC 6.24 10^3/uL (4.4-10.8)
[2021-08-10 14:30] LABS: ALT 17 U/L (16-63); AST 16 U/L (15-37); Albumin 3.6 g/dL (3.4-5.0); Alkaline Phosphatase 80 U/L (46-116); Anion Gap 4.7 mmol/L (3-11); BUN 14 mg/dL (7-18); Bilirubin, Total 0.4 mg/dL (0.2-1.0); CO2 30.3 mmol/L (21.0-32.0); CREATININE 1.1 mg/dL (0.70-1.30); Calcium 9.2 mg/dL (8.5-10.1); Chloride 105 mmol/L (98-107); FREE T4 0.78 ng/dL (0.76-1.46); Glucose 88 mg/dL (74-106); Potassium 4.4 mmol/L (3.5-5.1); Sodium 140 mmol/L (136-145); TSH 2.51 uIU/mL (0.36-3.74); Total Protein 7.7 g/dL (6.4-8.2)
== END 2021-09-03 23:59 | disposition home or self-care (01) ==
LOC: INF 13:46
PROVIDERS: Nurse Practitioner Adult Health; PCP Internal Medicine; Visit Provider Internal Medicine Medical Oncology
DX: C34.11 Malignant neoplasm of upper lobe, right bronchus or lung (principal)
CPT/HCPCS: 36415; 80053; 83735; 84439; 84443; 85025

== ENCOUNTER 2021-09-14 02:45 | Outpatient (RCR) | payer OTHER, SELFPAY ==
[2021-09-14 13:00] LABS: Absolute Basophil Count 0.03 10^3/uL (0.0-0.2); Absolute Eosinophil Count 0.12 10^3/uL (0.0-0.7); Absolute Lymphocyte Count 0.66 10^3/uL (1.2-3.4); Absolute Monocyte Count 0.61 10^3/uL (0.1-0.8); Absolute Neutrophil Count 4.76 10^3/uL (1.2-6.7); Basophils % 0.5; Eosinophils % 1.9; HCT 39.7 % (40.0-50.0); HGB 13.6 g/dL (13.5-17.5); Immature Grans % 1.6; Lymphocytes % 10.5; MCH 29.9 pg (27.0-33.0); MCHC 34.3 % (32.0-36.0); MCV 87 fL (80-95); MPV 8.5 fL (8.0-11.0); Monocytes % 9.7; Neutrophils % 75.8; Platelet Count 191 10^3/uL (130-400); RBC 4.55 10^6/uL (4.36-5.78); RDW 13.5 % (11.8-14.1); RDW-SD 42.6 fL; WBC 6.28 10^3/uL (4.4-10.8)
[2021-09-14 13:30] LABS: ALT 14 U/L (16-63); AST 17 U/L (15-37); Albumin 3.8 g/dL (3.4-5.0); Alkaline Phosphatase 64 U/L (46-116); Anion Gap 9.1 mmol/L (3-11); BUN 18 mg/dL (7-18); Bilirubin, Total 0.4 mg/dL (0.2-1.0); CO2 25.9 mmol/L (21.0-32.0); Calcium 9.1 mg/dL (8.5-10.1); Chloride 104 mmol/L (98-107); FREE T4 0.84 ng/dL (0.76-1.46); Glucose 99 mg/dL (74-106); Magnesium 1.9 mg/dL (1.8-2.4); Potassium 4.1 mmol/L (3.5-5.1); Sodium 139 mmol/L (136-145); TSH 2.87 uIU/mL (0.36-3.74); Total Protein 7.8 g/dL (6.4-8.2)
== END 2021-10-04 23:59 | disposition home or self-care (01) ==
LOC: INF 02:45
PROVIDERS: PCP Internal Medicine; Visit Provider Internal Medicine Medical Oncology
DX: C34.11 Malignant neoplasm of upper lobe, right bronchus or lung (principal)
CPT/HCPCS: 36415; 80053; 83735; 84439; 84443; 85025

== ENCOUNTER 2021-10-12 03:26 | Outpatient (RCR) | payer SELFPAY ==
[2021-10-12 13:47] LABS: Abs Immature Grans 0.11 10^3/uL (0.0-0.06); Absolute Basophil Count 0.02 10^3/uL (0.0-0.2); Absolute Eosinophil Count 0.13 10^3/uL (0.0-0.7); Absolute Lymphocyte Count 0.71 10^3/uL (1.2-3.4); Absolute Monocyte Count 0.56 10^3/uL (0.1-0.8); Absolute Neutrophil Count 4.62 10^3/uL (1.2-6.7); Basophils % 0.3; Eosinophils % 2.1; HCT 37.7 % (40.0-50.0); Immature Grans % 1.8; Lymphocytes % 11.5; MCH 30.3 pg (27.0-33.0); MCHC 34.5 % (32.0-36.0); MCV 88 fL (80-95); MPV 8.8 fL (8.0-11.0); Monocytes % 9.1; Neutrophils % 75.2; Platelet Count 190 10^3/uL (130-400); RBC 4.29 10^6/uL (4.36-5.78); RDW 12.7 % (11.8-14.1); RDW-SD 40.8 fL; WBC 6.15 10^3/uL (4.4-10.8)
[2021-10-12 14:13] LABS: ALT 20 U/L (16-63); AST 17 U/L (15-37); Albumin 3.8 g/dL (3.4-5.0); Alkaline Phosphatase 70 U/L (46-116); Anion Gap 7.6 mmol/L (3-11); BUN 18 mg/dL (7-18); Bilirubin, Total 0.4 mg/dL (0.2-1.0); CO2 29.4 mmol/L (21.0-32.0); Calcium 9.1 mg/dL (8.5-10.1); Chloride 105 mmol/L (98-107); FREE T4 0.85 ng/dL (0.76-1.46); Glucose 100 mg/dL (74-106); Potassium 3.8 mmol/L (3.5-5.1); Sodium 142 mmol/L (136-145); TSH 2.83 uIU/mL (0.36-3.74); Total Protein 7.7 g/dL (6.4-8.2)
== END 2021-11-04 23:59 | disposition home or self-care (01) ==
LOC: INF 03:26
PROVIDERS: PCP Internal Medicine; Visit Provider Internal Medicine Medical Oncology
DX: C34.11 Malignant neoplasm of upper lobe, right bronchus or lung (principal)
CPT/HCPCS: 36415; 80053; 83735; 84439; 84443; 85025

== ENCOUNTER 2021-11-16 02:58 | Outpatient (RCR) | payer BC, SELFPAY ==
[2021-11-16 13:58] LABS: Absolute Basophil Count 0.03 10^3/uL (0.0-0.2); Absolute Eosinophil Count 0.13 10^3/uL (0.0-0.7); Absolute Lymphocyte Count 0.77 10^3/uL (1.2-3.4); Absolute Monocyte Count 0.67 10^3/uL (0.1-0.8); Absolute Neutrophil Count 5.56 10^3/uL (1.2-6.7); Basophils % 0.4; Eosinophils % 1.8; HGB 13.8 g/dL (13.5-17.5); Immature Grans % 1.4; Lymphocytes % 10.6; MCH 31.4 pg (27.0-33.0); MCHC 36.3 % (32.0-36.0); MCV 86 fL (80-95); Monocytes % 9.2; Neutrophils % 76.6; Platelet Count 209 10^3/uL (130-400); RDW 12.5 % (11.8-14.1); RDW-SD 39.4 fL; WBC 7.26 10^3/uL (4.4-10.8)
[2021-11-16 14:35] LABS: ALT 24 U/L (16-63); AST 20 U/L (15-37); Albumin 3.9 g/dL (3.4-5.0); Alkaline Phosphatase 75 U/L (46-116); Anion Gap 5.5 mmol/L (3-11); BUN 18 mg/dL (7-18); Bilirubin, Total 0.5 mg/dL (0.2-1.0); CO2 31.5 mmol/L (21.0-32.0); CREATININE 1.1 mg/dL (0.70-1.30); Calcium 9.2 mg/dL (8.5-10.1); Chloride 103 mmol/L (98-107); Estimated GFR 75.43 (mL/min/1.73m2); FREE T4 0.83 ng/dL (0.76-1.46); Glucose 99 mg/dL (74-106); Magnesium 1.8 mg/dL (1.8-2.4); Potassium 3.5 mmol/L (3.5-5.1); Sodium 140 mmol/L (136-145); TSH 2.13 uIU/mL (0.36-3.74); Total Protein 8.2 g/dL (6.4-8.2)
== END 2021-12-04 23:59 | disposition home or self-care (01) ==
LOC: INF 02:58
PROVIDERS: PCP Internal Medicine; Visit Provider Internal Medicine Medical Oncology
DX: C34.11 Malignant neoplasm of upper lobe, right bronchus or lung (principal)
CPT/HCPCS: 36415; 80053; 83735; 84439; 84443; 85025

== ENCOUNTER 2021-12-14 02:16 | Outpatient (RCR) | payer BC, SELFPAY ==
[2021-12-14 12:23] LABS: Abs Immature Grans 0.08 10^3/uL (0.0-0.06); Absolute Basophil Count 0.02 10^3/uL (0.0-0.2); Absolute Eosinophil Count 0.13 10^3/uL (0.0-0.7); Absolute Lymphocyte Count 0.91 10^3/uL (1.2-3.4); Absolute Neutrophil Count 5.07 10^3/uL (1.2-6.7); Basophils % 0.3; Eosinophils % 1.9; HCT 39.1 % (40.0-50.0); HGB 13.7 g/dL (13.5-17.5); Immature Grans % 1.2; Lymphocytes % 13.2; MCH 30.8 pg (27.0-33.0); MCV 88 fL (80-95); MPV 8.6 fL (8.0-11.0); Monocytes % 10.1; Neutrophils % 73.3; Platelet Count 206 10^3/uL (130-400); RBC 4.45 10^6/uL (4.36-5.78); RDW 12.2 % (11.8-14.1); WBC 6.91 10^3/uL (4.4-10.8)
[2021-12-14 12:43] LABS: ALT 22 U/L (16-63); AST 21 U/L (15-37); Alkaline Phosphatase 73 U/L (46-116); BUN 16 mg/dL (7-18); Bilirubin, Total 0.4 mg/dL (0.2-1.0); CREATININE 1.3 mg/dL (0.70-1.30); Calcium 9.2 mg/dL (8.5-10.1); Chloride 103 mmol/L (98-107); Estimated GFR 61.73 (mL/min/1.73m2); FREE T4 0.78 ng/dL (0.76-1.46); Glucose 94 mg/dL (74-106); Magnesium 1.8 mg/dL (1.8-2.4); Potassium 3.7 mmol/L (3.5-5.1); Sodium 139 mmol/L (136-145); TSH 2.98 uIU/mL (0.36-3.74); Total Protein 8.1 g/dL (6.4-8.2)
== END 2022-01-04 23:59 | disposition home or self-care (01) ==
LOC: INF 02:16
PROVIDERS: PCP Internal Medicine; Visit Provider Internal Medicine Medical Oncology
DX: C34.11 Malignant neoplasm of upper lobe, right bronchus or lung (principal)
CPT/HCPCS: 36415; 80053; 83735; 84439; 84443; 85025

== ENCOUNTER → 2021-12-28 01:57 | Outpatient (CLI) | payer BC, SELFPAY ==
--- NOTE | 2021-12-28 13:02 | DI.CT_ITS ---
Exam(s) CT CHEST W EXAM: CT CHEST W CLINICAL HISTORY: RUL LUNG CA, C34.11; ASSESS TX RESPONSE TECHNIQUE: Imaging Protocol: Axial computed tomography images with coronal and sagittal reformatted images were created and reviewed CONTRAST MATERIAL: Intravenous: Omnipaque 350 Contrast volume:structured data ml. COMPARISON: CR XR CHEST 2V PA LATERAL from 03/26/[address] CHEST PE CTA from 03/26/[address] CHEST PE CTA from 05/28/[address] CHEST WO from 09/02/2021 FINDINGS: Tracheobronchial tree: No bronchiectasis or mucous plugging. Mediastinum and Amaris: No dominant adenopathy or fluid collection. Pulmonary parenchyma: Decrease in prominence of confluent areas of perihilar density involving the ri ght upper and middle lobes. There is some volume loss. There is no definite mass measurable mass. Findings could represent post treatment changes. There is a stable tiny nodule left upper lobe. Pleura: No effusion or pneumothorax. Heart: The heart is not dilated. No coronary artery calcifications are seen. Aorta: Thoracic aorta non-dilated. Upper abdomen: Small hiatal hernia. Lymph nodes: Within normal limits. Bones: Milddegenerative changes. No lytic or blastic lesions. Soft tissues: Mild bilateral gynecomastia. IMPRESSION: Decreased prominence of right perihilar pulmonary densities. No new abnormalities. RADIATION DOSE DELIVERED: 804.8mGy.cm Total DLP DATA REPOSITORY: All CT scans at this facility are submitted to the National Radiology Data Registry (NRDR) Dose Index Registry (DIR) with the [employer] (ACR). RADIATION OPTIMIZATION: All CT scans at this facility use at least one of these dose optimization te chniques: automated exposure control; mA and/or kV adjustment per patient size (includes targeted exa ms where dose is matched to clinical indication); or iterative reconstruction.
[2021-12-28] MEDS: Omnipaque 350 MG/ML 500 ML BTL-Imaging package 70 ML IJ (13:09)
[2021-12-28] MEDS: Normal Saline Flush 10 ML SYR IVP (13:11)
== END ==
PROVIDERS: PCP Internal Medicine; Visit Provider Nurse Practitioner Adult Health
DX: C34.11 Malignant neoplasm of upper lobe, right bronchus or lung (principal); R91.8 Other nonspecific abnormal finding of lung field
CPT/HCPCS: 71260

== ENCOUNTER 2022-01-11 02:27 | Outpatient (RCR) | payer BC, SELFPAY ==
[2022-01-11 12:19] LABS: Abs Immature Grans 0.09 10^3/uL (0.0-0.06); Absolute Basophil Count 0.02 10^3/uL (0.0-0.2); Absolute Eosinophil Count 0.11 10^3/uL (0.0-0.7); Absolute Lymphocyte Count 0.72 10^3/uL (1.2-3.4); Absolute Monocyte Count 0.58 10^3/uL (0.1-0.8); Absolute Neutrophil Count 5.45 10^3/uL (1.2-6.7); Basophils % 0.3; Eosinophils % 1.6; HCT 39.9 % (40.0-50.0); HGB 13.7 g/dL (13.5-17.5); Immature Grans % 1.3; Lymphocytes % 10.3; MCH 30.8 pg (27.0-33.0); MCHC 34.3 % (32.0-36.0); MCV 90 fL (80-95); MPV 8.9 fL (8.0-11.0); Monocytes % 8.3; Neutrophils % 78.2; Platelet Count 209 10^3/uL (130-400); RBC 4.45 10^6/uL (4.36-5.78); RDW 12.1 % (11.8-14.1); RDW-SD 39.3 fL; WBC 6.97 10^3/uL (4.4-10.8)
[2022-01-11 12:41] LABS: ALT 21 U/L (16-63); AST 20 U/L (15-37); Albumin 4.2 g/dL (3.4-5.0); Alkaline Phosphatase 72 U/L (46-116); Anion Gap 7.5 mmol/L (3-11); BUN 24 mg/dL (7-18); Bilirubin, Total 0.5 mg/dL (0.2-1.0); CO2 30.5 mmol/L (21.0-32.0); CREATININE 1.2 mg/dL (0.70-1.30); Chloride 105 mmol/L (98-107); Estimated GFR 67.95 (mL/min/1.73m2); FREE T4 0.77 ng/dL (0.76-1.46); Glucose 93 mg/dL (74-106); Magnesium 1.8 mg/dL (1.8-2.4); Potassium 3.9 mmol/L (3.5-5.1); Sodium 143 mmol/L (136-145); TSH 3.93 uIU/mL (0.36-3.74); Total Protein 8.2 g/dL (6.4-8.2)
== END 2022-02-03 23:59 | disposition home or self-care (01) ==
LOC: INF 02:27
PROVIDERS: PCP Internal Medicine; Visit Provider Internal Medicine Medical Oncology
DX: C34.11 Malignant neoplasm of upper lobe, right bronchus or lung (principal)
CPT/HCPCS: 36415; 80053; 83735; 84439; 84443; 85025

== ENCOUNTER 2022-02-08 03:44 | Outpatient (RCR) | payer BC, SELFPAY ==
[2022-02-08 12:19] LABS: Abs Immature Grans 0.05 10^3/uL (0.0-0.06); Absolute Basophil Count 0.02 10^3/uL (0.0-0.2); Absolute Eosinophil Count 0.14 10^3/uL (0.0-0.7); Absolute Lymphocyte Count 0.69 10^3/uL (1.2-3.4); Absolute Monocyte Count 0.63 10^3/uL (0.1-0.8); Absolute Neutrophil Count 4.96 10^3/uL (1.2-6.7); Basophils % 0.3; Eosinophils % 2.2; HCT 39.4 % (40.0-50.0); Immature Grans % 0.8; Lymphocytes % 10.6; MCHC 35.5 % (32.0-36.0); MCV 87 fL (80-95); MPV 8.6 fL (8.0-11.0); Monocytes % 9.7; Neutrophils % 76.4; Platelet Count 200 10^3/uL (130-400); RBC 4.51 10^6/uL (4.36-5.78); RDW 12.1 % (11.8-14.1); RDW-SD 39.2 fL; WBC 6.49 10^3/uL (4.4-10.8)
[2022-02-08 12:42] LABS: ALT 30 U/L (16-63); AST 24 U/L (15-37); Albumin 4.1 g/dL (3.4-5.0); Alkaline Phosphatase 85 U/L (46-116); Anion Gap 6.3 mmol/L (3-11); BUN 20 mg/dL (7-18); Bilirubin, Total 0.5 mg/dL (0.2-1.0); CO2 31.7 mmol/L (21.0-32.0); CREATININE 1.5 mg/dL (0.70-1.30); Calcium 8.9 mg/dL (8.5-10.1); Chloride 103 mmol/L (98-107); Estimated GFR 51.99 (mL/min/1.73m2); FREE T4 0.87 ng/dL (0.76-1.46); Glucose 105 mg/dL (74-106); Magnesium 1.9 mg/dL (1.8-2.4); Potassium 3.6 mmol/L (3.5-5.1); Sodium 141 mmol/L (136-145); TSH 3.99 uIU/mL (0.36-3.74); Total Protein 8.1 g/dL (6.4-8.2)
== END 2022-03-06 23:59 | disposition home or self-care (01) ==
LOC: INF 03:44
PROVIDERS: PCP Internal Medicine; Visit Provider Internal Medicine Medical Oncology
DX: C34.11 Malignant neoplasm of upper lobe, right bronchus or lung (principal)
CPT/HCPCS: 36415; 80053; 83735; 84439; 84443; 85025

== ENCOUNTER 2023-04-18 20:15 | Outpatient (REF) | payer BC, SELFPAY ==
[2023-04-18 20:12] LABS: Abs Immature Grans 0.09 10^3/uL (0.0-0.06); Absolute Basophil Count 0.02 10^3/uL (0.0-0.2); Absolute Eosinophil Count 0.13 10^3/uL (0.0-0.7); Absolute Lymphocyte Count 0.95 10^3/uL (1.2-3.4); Absolute Monocyte Count 0.61 10^3/uL (0.1-0.8); Absolute Neutrophil Count 6.07 10^3/uL (1.2-6.7); Basophils % 0.3; Eosinophils % 1.7; HCT 40.7 % (40.0-50.0); HGB 13.8 g/dL (13.5-17.5); Immature Grans % 1.1; Lymphocytes % 12.1; MCHC 33.9 % (32.0-36.0); MCV 89 fL (80-95); MPV 9.3 fL (8.0-11.0); Monocytes % 7.8; Platelet Count 228 10^3/uL (130-400); RDW 12.6 % (11.8-14.1); RDW-SD 40.7 fL; WBC 7.87 10^3/uL (4.4-10.8)
[2023-04-18 20:16] LABS: ESR 21 mm/hr (0-20)
[2023-04-18 20:37] LABS: ALT 48 U/L (16-63); AST 33 U/L (15-37); Alkaline Phosphatase 74 U/L (46-116); Anion Gap 10.3 mmol/L (3-11); BUN 16 mg/dL (7-18); Bilirubin, Total 0.4 mg/dL (0.2-1.0); CO2 26.7 mmol/L (21.0-32.0); CREATININE 1.3 mg/dL (0.70-1.30); Calcium 9.3 mg/dL (8.5-10.1); Chloride 104 mmol/L (98-107); Estimated GFR 61.35 (mL/min/1.73m2); Glucose 107 mg/dL (74-106); Sodium 141 mmol/L (136-145)
[2023-04-19 17:52] LABS: CRP, High Sensitivity 5.14 mg/L (See Note)
== END 2023-04-18 20:16 | disposition home or self-care (01) ==
LOC: NCHCN 20:15
PROVIDERS: PCP Nurse Practitioner Family; Visit Provider Nurse Practitioner Family
DX: M62.81 Muscle weakness (generalized) (principal); R70.0 Elevated erythrocyte sedimentation rate
CPT/HCPCS: 80053; 85652; 86141; 85025

== ENCOUNTER 2023-04-24 22:20 | Emergency (ER) | payer BC, SELFPAY ==
--- NOTE | 2023-04-24 22:30 | RT.EKG_ITS ---
APPROVED REPORT Exam: Resting ECG Reason for Exam: weakness Patient Location: E HR:98 bpm ECG Measurements Heart Rate 98 AXIS NH 192 P 5 QRSd 92 QRS 64 QT 327 T 11 QTc 419 Conclusion Sinus rhythm... V-rate 60- [address] segment or T wave abnormalities to suggest occlusive ND
[2023-04-24 22:40] VITALS: BP 161/88; PULSE 104; RESP 18; TEMP 37; O2SAT 98
[2023-04-24 22:47] VITALS: BP 161/102; PULSE 105; RESP 16; TEMP 37; O2SAT 96
[2023-04-24 22:49] VITALS: RESP 16
--- NOTE | 2023-04-24 23:00 | W.ED.GENAD ---
HPI General Mode of arrival: ambulatory. Date/Time Provider Initiated Documentation: 04/24/23 22:30. Limitations to Documentation: no limitations. Information obtained by: patient. HPI Narrative: 62yo M with hx of lung cancer (in remission) presenting with RLE tremor. Has had three weeks of right sided (primarily LE) weakness, being worked up on an outpatient basis at [facility]; plan for MRI which has not yet be scheduled. No history of brain mets. Tonight his whole right leg began jerking uncontrollably and rhythmically while he was laying in bed. Has never had anything like this happen before. Lasted about 3 minutes. Whole leg felt numb afterwards but is now back to normal. Was weaker after the event but now back to his new baseline. No change in mentation, no urinary incontinence. Otherwise in his usual state of health with today with no recent injuries, no fevers, chills, rash, nausea, vomiting, abdominal pain, chest pain, shortness of breath, syncope, or other concerns. Related Data Home Medications Medication Instructions Recorded Confirmed omeprazole 20 mg capsule,delayed 20 mg PO DAILY 04/24/23 04/24/23 release dexamethasone 4 mg tablet 4 mg PO DAILY #14 tabs 04/25/23 levetiracetam 500 mg tablet 500 mg PO BID #60 tabs 04/25/23 (Keppra) Previous Rx's Medication Instructions Recorded dexamethasone 4 mg tablet 4 mg PO DAILY #14 tabs 04/25/23 levetiracetam 500 mg tablet 500 mg PO BID #60 tabs 04/25/23 (Keppra) Allergies Allergy/AdvReac Type Severity Reaction Status Date / Time aspirin Allergy Severe Verified 03/31/23 11:51 Penicillins AdvReac Intermediate Other (See Unverified 03/28/21 11:03 Comment) General Stated Complaint: GenMedical MK: 3 Review of Systems Narrative: see HPI Exam Narrative Exam Narrative: General: Alert, well appearing, well nourished, in no acute distress. Head: Normocephalic, atraumatic Neck: Trachea midline, ?Neck supple. ENT: ?MMM.? No oropharygeal lesions or exudate. Cardiac: ?RRR, no murmurs appreciated Resp: No respiratory distress. CTAB. Abd: ?Soft, non-distended, nontender : ?No suprapubic tenderness. No CVA tenderness. Extremities: ?No deformities.? No peripheral edema. Neuro: ? GCS 15. Fluent speech, no dysarthria. Motor- 5/5 strength symmetric bilateral upper extremities including shoulder abductors/adductors, elbow flexors/extensors, wrist flexors/extensors, finger abductors/adductors. 5/5 LLE, hipflexors, knee flexors/extensors, ankle dorsiflexors and planter flexors. 4/5 right hip flexors, knee flexors/extrenors, 3+/5 ankle dorsflexion and plantar flexion Sensation- ?Intact to light touch and symmetric multiple dermatomes including upper and lower extremities Coordination- No dysmetria on finger to nose CRANIAL NERVES: II: Pupils equal and reactive, III, IV, : EOM intact, no gaze preference or deviation, no nystagmus. V: normal sensation in V1, V2, and V3 segments bilaterally VII: no asymmetry, no nasolabial fold flattening VIII: normal hearing to speech IX, X: normal palatal elevation, no uvular deviation XI: 5/5 head turn and 5/5 shoulder shrug bilaterally XII: midline tongue protrusion Course Vital Signs Vital signs: Vital Signs Temperature 37 C 04/24/23 22:40 Pulse 104 H 04/24/23 22:40 Respiratory Rate 18 04/24/23 22:40 Blood Pressure 161/88 H 04/24/23 22:40 Pulse Oximetry 98 04/24/23 22:40 Temperature 37 C 04/24/23 22:47 Temperature Source Temporal Artery Scan 04/24/23 22:47 Pulse 105 H 04/24/23 22:47 Respiratory Rate 16 04/24/23 22:49 Respiratory Effort Normal, Non-Labored 04/24/23 22:49 Respiratory Depth Normal 04/24/23 22:49 Respiratory Pattern Normal 04/24/23 22:49 Blood Pressure 161/102 H 04/24/23 22:47 Blood Pressure Position Supine 04/24/23 22:47 Pulse Oximetry 96 04/24/23 22:47 Oxygen Delivery Method Room Air 04/24/23 22:47 Oxygen Flow Rate 0 04/24/23 22:40 Medical Decision Making 62yo M with hx of lung cancer (in remission) presenting with RLE tremor. Has had three weeks of right sided (primarily LE) weakness with plan for MRI which has not yet be scheduled; today had jerking of his RLE that sounds like focal seizure. Last three minutes, 'numb' afterwards, now back to his new baseline. Vital signs reassuring, non-toxic on exam. Does have significant RLE weakness, otherwise benign neurologic exam, not concerning for increased ICP or brain herniation Will workup for new onset seizure, high suspicion for brain mets. History not concerning for syncope or cardiac event. EKG NSR, no ST segment or T wave abnormalities to suggest occlusive ME. Labs reviewed as below, CBC & CMP reassuring with no actionable abnormalities, no electrolyte derangements. TSH elevated with normal T4. CTA head and neck independently reviewed, left sided mass with large amount of surrounding edema; discussed with radiologist and agree with radiology read below. Discussed with Dr. Floyd [facility] [place]; advised starting 500mg BID keppra, dexamethasone, and outpatient MRI; they will followup with patient after MRI, no indication seen for admission at this time. Findings and plan discussed with patient. He remains non-toxic appearing with reassuring vital signs and an overall reassuring neurologic exam albeit with RLE weakness. He is able to ambulate. Discharged home; discharge instructions and return precautions were reviewed with patient who verbalized understanding. All questions were answered and he is in full agreement with the plan. Imaging Data Radiologic Study: Imaging: CT Scan Radiologist's impression: IMPRESSION: 1. 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 2. No acute vascular findings. Lab Data Lab results reviewed: Yes I reviewed the patient's lab results. Labs: Laboratory Tests Range/Units 04/24/23 23:04 WBC (4.4-10.8) 10^3/uL 8.14 RBC (4.36-5.78) 10^6/uL 4.55 Hgb (13.5-17.5) g/dL 13.8 Hct (40.0-50.0) % 39.4 L MCV (80-95) fL 87 MCH (27.0-33.0) pg 30.3 MCHC (32.0-36.0) % 35.0 RDW (11.8-14.1) % 12.6 Plt Count (130-400) 10^3/uL 202 MPV (8.0-11.0) fL 8.9 Immature Gran % 2.2 Neutrophils % 77.0 Lymphocytes % 10.4 Monocytes % 8.7 Eosinophils % 1.2 Basophils % 0.5 Nucleated RBC % (0.0-0.3) % 0.0 Absolute Neutrophils (1.2-6.7) 10^3/uL 6.26 Absolute Lymphocytes (1.2-3.4) 10^3/uL 0.85 L Absolute Monocytes (0.1-0.8) 10^3/uL 0.71 Absolute Eosinophils (0.0-0.7) 10^3/uL 0.10 Absolute Basophils (0.0-0.2) 10^3/uL 0.04 Sodium (136-145) mmol/L 140 Potassium (3.5-5.1) mmol/L 3.8 Chloride (98-107) mmol/L 99 Carbon Dioxide (21.0-32.0) mmol/L 28.6 Anion Gap (3-11) mmol/L 12.4 H BUN (7-18) mg/dL 18 Creatinine (0.70-1.30) mg/dL 1.3 Est GFR (CKD-EPI 2020) (mL/min/1.73m2) 61.35 Glucose (74-106) mg/dL 117 H Calcium (8.5-10.1) mg/dL 9.4 Total Bilirubin (0.2-1.0) mg/dL 0.4 AST (15-37) U/L 41 H ALT (16-63) U/L 59 Alkaline Phosphatase (46-116) U/L 92 Total Protein (6.4-8.2) g/dL 7.8 Albumin (3.4-5.0) g/dL 3.9 TSH (0.36-3.74) uIU/mL 8.35 H Free T4 (0.76-1.46) ng/dL 0.85 Quality:SDOH Health Related Social Needs: No Data to Display PFSH All Active Problems (Updated 04/25/23 @ 03:00 by Lynette Claudio MD) Focal motor seizure (Acute) Frontal mass of brain (Acute) Chronic low back pain (Chronic) Dyspnea (Acute) Renal insufficiency, mild (Acute) CAP (community acquired pneumonia) (Acute) Medical History Lung cancer Family History (Updated 03/31/23 @ 11:58 by Yvonne Segal RN, RN) Mother , 70s No problems noted. Father , 80s alzheimers Prostate cancer Social History (Updated 03/31/23 @ 11:57 by Yvonne Segal RN, RN) Smoking/Tobacco Use Status: Former Tobacco Use Quit Date: 03/07/12 Pack-years: 40 Smoking risk assessment performed?: Yes Alcohol Intake: current Alcohol Intake frequency: a few times a month Alcohol type: hard liquor Drug use: Never Substance use type: does not use Household members: spouse Number of Children: 3 number of grandchildren: 1 What is your relationship status?: Panel score (0-1 are the most socially isolated patients): 1 Do you feel safe at home: Yes Do you feel safe in your relationship?: Yes Discharge Plan Disposition Patient Disposition: Home Condition: Stable Discharge Details Clinical Impression: Frontal mass of brain, Focal motor seizure Primary Care Provider: Serenity Larson ED Provider: Lynette Claudio Home Meds and New Rx's Prescriptions: New levetiracetam [Keppra] 500 mg tablet 500 mg PO BID Qty: 60 0RF dexamethasone 4 mg tablet 4 mg PO DAILY Qty: 14 0RF Continued omeprazole 20 mg capsule,delayed release(DR/EC) 20 mg PO DAILY Discharge Instructions Instructions: New-Onset Seizure in Adults (ED) Additional Instructions: Take keppra twice a day. Take the steroid once a day. Call your oncologist today to schedule an appointment as soon as possible to followup on your visit today. An MRI has been ordered- please come to the hospital to have this done. You will need to followup with oncology and [facility] neurosurgery. Neurosurgery will call you after they see your MRI results. Return to the emergency department for new or worsening symptoms including severe headache, vomiting, worsening weakness, passing out, or if you have any other concerns. Referrals: Serenity Larson [Primary Care Provider] -
[2023-04-24 23:19] LABS: Abs Immature Grans 0.18 10^3/uL (0.0-0.06); Absolute Basophil Count 0.04 10^3/uL (0.0-0.2); Absolute Lymphocyte Count 0.85 10^3/uL (1.2-3.4); Absolute Monocyte Count 0.71 10^3/uL (0.1-0.8); Absolute Neutrophil Count 6.26 10^3/uL (1.2-6.7); Basophils % 0.5; Eosinophils % 1.2; HCT 39.4 % (40.0-50.0); HGB 13.8 g/dL (13.5-17.5); Immature Grans % 2.2; Lymphocytes % 10.4; MCH 30.3 pg (27.0-33.0); MCV 87 fL (80-95); MPV 8.9 fL (8.0-11.0); Monocytes % 8.7; Platelet Count 202 10^3/uL (130-400); RBC 4.55 10^6/uL (4.36-5.78); RDW 12.6 % (11.8-14.1); RDW-SD 39.8 fL; WBC 8.14 10^3/uL (4.4-10.8)
[2023-04-24 23:43] LABS: ALT 59 U/L (16-63); AST 41 U/L (15-37); Albumin 3.9 g/dL (3.4-5.0); Alkaline Phosphatase 92 U/L (46-116); Anion Gap 12.4 mmol/L (3-11); BUN 18 mg/dL (7-18); Bilirubin, Total 0.4 mg/dL (0.2-1.0); CO2 28.6 mmol/L (21.0-32.0); CREATININE 1.3 mg/dL (0.70-1.30); Calcium 9.4 mg/dL (8.5-10.1); Chloride 99 mmol/L (98-107); Estimated GFR 61.35 (mL/min/1.73m2); Glucose 117 mg/dL (74-106); Potassium 3.8 mmol/L (3.5-5.1); Sodium 140 mmol/L (136-145); TSH (W/Ref FT4) 8.35 uIU/mL (0.36-3.74); Total Protein 7.8 g/dL (6.4-8.2)
--- NOTE | 2023-04-25 | DI.CT_ITS ---
Exam(s) CT BRAIN NECK CTA EXAM: CT BRAIN NECK CTA CLINICAL HISTORY: RLE weakness x 3 weeks, RLE shaking today. TECHNIQUE: Imaging Protocol: Axial CT angiography was performed with multi-slice acquisition and mu lti-planar and/or 3D reconstructions. CONTRAST MATERIAL: Intravenous: Omnipaque 350 contrast volume:85 mL COMPARISON: No priors for comparison. FINDINGS: The examination is limited due to patient motion artifact. CT Head W/O and W: Ventricles and Extra axial spaces: Normal in size and morphology for the patient's age. Hemorrhage: None. Cerebral parenchyma: There is a 1.8 x 2.4 cm peripherally enhancing mass in the high left parietal lo be. There is a large amount of surrounding edema. There is effacement of the adjacent sulci. There is no midline shift. Midline shift: None. Brainstem/Cerebellum: Normal. Calvarium: Normal. Visualized Paranasal sinuses/Mastoids: Mild mucosal thickening in the paranasal sinuses. The mastoid air cells are clear. Soft Tissues: Unremarkable. Enhancement: Unremarkable. CTA Neck W: Common Carotid: Right: No dissection, occlusion or significant stenosis. Left: No dissection, occlusion or significant stenosis. External Carotid: Right: No occlusion or significant stenosis. Left: No occlusion or significant stenosis. Internal Carotid: Right: No dissection, occlusion or significant stenosis. Left: No dissection, occlusion or significant stenosis. Vertebral Artery: Right: No dissection, occlusion or significant stenosis. Left: No dissection, occlusion or significant stenosis. Lung Apices: There is an infiltrate seen in the right middle lobe. Bones: Within normal limits for the patient's age. Soft Tissues: Normal. Thyroid gland: Unremarkable. CTA Brain W: Internal Carotid Arteries: Mild calcification bilaterally in the cavernous internal carotid arteries. No significant stenosis. No occlusion or aneurysm. Anterior Cerebral Arteries: Right: No aneurysm, occlusion or significant stenosis. Left: No aneurysm, occlusion or significant stenosis. Middle Cerebral Arteries: Right: No aneurysm, occlusion or significant stenosis. Left: No aneurysm, occlusion or significant stenosis. Posterior Cerebral Arteries: Both cerebral arteries arise predominantly from the posterior communicat ing arteries which is a normal variant. Right: No aneurysm, occlusion or significant stenosis. Left: No aneurysm, occlusion or significant stenosis. Vertebral Arteries: Right: No aneurysm, occlusion or significant stenosis. Left: No aneurysm, occlusion or significant stenosis. Basilar Artery: No aneurysm, occlusion or significant stenosis. IMPRESSION: 1. No large vessel occlusion or significant stenosis on the CT angiography of the head. 2. 1.8 x 2.4 cm peripherally enhancing neoplasm in the high left parietal lobe. There is extensive s urrounding edema. 3. No occlusion or significant stenosis on the CT angiography of the neck. 4. Infiltrate in the right lung. CT scan of the chest should be considered for further evaluation. RADIATION DOSE DELIVERED: 2,423.15mGy.cm Total DLP DATA REPOSITORY: All CT scans at this facility are submitted to the National Radiology Data Registry (NRDR) Dose Index Registry (DIR) with the [employer] (ACR). RADIATION OPTIMIZATION: All CT scans at this facility use at least one of these dose optimization te chniques: automated exposure control; mA and/or kV adjustment per patient size (includes targeted exa ms where dose is matched to clinical indication); or iterative reconstruction.
[2023-04-25 00:02] LABS: FREE T4 0.85 ng/dL (0.76-1.46)
[2023-04-25] MEDS: Omnipaque 350 MG/ML 100 ML BTL IJ (00:23)
[2023-04-25] MEDS: Normal Saline Flush 10 ML SYR IVP (00:24)
[2023-04-25] MEDS: Normal Saline - Diluent 50 ML VIAL IJ (00:24)
--- NOTE | 2023-04-25 01:55 | DI.VRAD_ITS ---
PROCEDURE INFORMATION: Exam: CTA Head With Contrast, Arteriography Exam date and time: 04/25/2023 12:28 AM Age: 62 years old Clinical indication: Patient HX: Rle weakness x 3 weeks, rle shaking today TECHNIQUE: Imaging protocol: Computed tomographic angiography of the head with contrast. Exam focused on the arteries. 3D rendering (Not supervised by radiologist): MIP and/or 3D reconstructed images were created by the technologist. Radiation optimization: All CT scans at this facility use at least one of these dose optimization techniques: automated exposure control; mA and/or kV adjustment per patient size (includes targeted exams where dose is matched to clinical indication); or iterative reconstruction. Contrast material: OMNIPAQUE 350; Contrast volume: 85 ml; Contrast route: INTRAVENOUS (IV); COMPARISON: MR BRAIN WO/W 01/19/2021 3:04 PM FINDINGS: ANTERIOR CIRCULATION: Right internal carotid artery: Intracranial segment is patent with no significant stenosis. No aneurysm. Right middle cerebral artery: No occlusion or significant stenosis. No aneurysm. Right anterior cerebral artery: No occlusion or significant stenosis. No aneurysm. Left internal carotid artery: Intracranial segment is patent with no significant stenosis. No aneurysm. Left middle cerebral artery: No occlusion or significant stenosis. No aneurysm. Left anterior cerebral artery: No occlusion or significant stenosis. No aneurysm. POSTERIOR CIRCULATION: Right vertebral artery: No occlusion or significant stenosis. No aneurysm. Left vertebral artery: No occlusion or significant stenosis. No aneurysm. Basilar artery: No occlusion or significant stenosis. No aneurysm. Right posterior cerebral artery: No occlusion or significant stenosis. No aneurysm. Left posterior cerebral artery: No occlusion or significant stenosis. No aneurysm. Brain: 2.3 cm posterosuperior left frontal brain neoplasm with extensive surrounding vasogenic edema. No intracranial hemorrhage. Cerebral ventricles: No ventriculomegaly. Bones/joints: Unremarkable. No acute fracture. Soft tissues: Unremarkable. IMPRESSION: 1. 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 2. No acute vascular findings. PROCEDURE INFORMATION: Exam: CTA Neck With Contrast Exam date and time: 04/25/2023 12:28 AM Age: 62 years old Clinical indication: Patient HX: Rle weakness x 3 weeks, rle shaking today TECHNIQUE: Imaging protocol: Computed tomographic angiography of the neck with contrast. Exam focused on the cervical segments of the vasculature. 3D rendering (Not supervised by radiologist): MIP and/or 3D reconstructed images were created by the technologist. Contrast material: OMNIPAQUE 350; Contrast volume: 85 ml; Contrast route: INTRAVENOUS (IV); COMPARISON: CT CHEST PE CTA 05/28/2021 4:26 PM FINDINGS: Right common carotid artery: No stenosis. No dissection or occlusion. Right internal carotid artery: No stenosis of the extracranial segment. No dissection or occlusion. Right external carotid artery: No occlusion or stenosis of the origin. Left common carotid artery: Atherosclerosis of the left carotid bulb and proximal left internal carotid artery without significant luminal narrowing. No thrombosis or occlusion. Left internal carotid artery: See Left common carotid artery finding. Left external carotid artery: No occlusion or stenosis of the origin. Right vertebral artery: No stenosis. No dissection or occlusion. Left vertebral artery: No stenosis. No dissection or occlusion. Soft tissues: Normal. No significant soft tissue swelling. Bones/joints: No acute fracture. Lungs: Incompletely visualized scarring/atelectasis in the upper right lung. IMPRESSION: No acute vascular findings. REFERENCES: NASCET CRITERIA. The degree of stenosis in the cervical segment of the internal carotid artery is based on NASCET criteria. Normal is no stenosis. Mild is less than 50% stenosis. Moderate is 50-69% stenosis. Severe is 70% to 99% stenosis. Total occlusion is no detectable patent lumen. Dictated and Authenticated by: José Miguel Funk MD. Ordering:KARON Ojeda MD
[2023-04-25] MEDS: levETIRAcetam 250 MG TAB 500 MG PO (03:32)
[2023-04-25] MEDS: Dexamethasone 4 MG TAB 10 MG PO (03:32)
[2023-04-25 03:33] VITALS: BP 150/84; PULSE 88; RESP 16; O2SAT 96
--- NOTE | 2023-04-25 11:02 | NUR.NOTE ---
Prescriptions originally sent to [facility] pharmacy. Called in to [facility] per Bradford Marlow. Nursing Note:
== END 2023-04-25 03:34 | disposition home or self-care (01) ==
LOC: ER 04-25 03:36
PROVIDERS: Emergency Provider Student in an Organized Health Care Education/Training Program; PCP Nurse Practitioner Family
DX: G40.219 Localization-related (focal) (partial) symptomatic epilepsy and epileptic syndromes with complex partial seizures, intractable, without status epilepticus (principal); G93.9 Disorder of brain, unspecified; C34.90 Malignant neoplasm of unspecified part of unspecified bronchus or lung; Z87.891 Personal history of nicotine dependence
CPT/HCPCS: 36415; 70496; 70498; 80053; 82962; 93005; 99285; 84439; 84443; 85025; 93010; 99284; J3490; J8540

== ENCOUNTER → 2023-04-26 04:26 | Outpatient (CLI) | payer BC, SELFPAY ==
--- NOTE | 2023-04-26 | DI.MRI_ITS ---
Exam(s) MR BRAIN WO/W EXAM: MR BRAIN WO/W CLINICAL HISTORY: SEIZURE, R56.9,H/O LUNG CA TECHNIQUE: Multiplanar multisequence MRI of the brain was performed. Both noninfused and contrast i nfused sequences were performed. IV Contrast injected was cc Dotarem. COMPARISON: MR MR BRAIN WO/W from 01/19/[address] BRAIN NECK CTA from 04/25/2023 FINDINGS: CEREBRAL PARENCHYMA: There is a E ring-enhancing lesion in the high left parietal lobe corresponding to what is seen on recent chest CT scan, this measuring 2.3 by 1.8 cm by 2.0 cm craniocaudal. There is abundant surrounding white matter edema, this edema extending down to the left side of the corpus callosum and exhibiting some mass effect on the superior aspect of the ipsilateral left lateral ventr icle. There is, however, no shift of midline structures. There is finding consistent with a neoplas tic lesion in the high left parietal lobe, probably metastatic given the history here.. There are no other ring-enhancing lesions in the brain. There is no significant focal signal abnormality in the cerebellar hemispheres nor within the serjio, m idbrain, and thalami. There are scattered foci of FLAIR bright signal abnormality consistent with chronic small vessel dise ase. DWI: No areas of restricted diffusion to suggest acute ischemic event. SWI: No microhemorrhages evident. There are no ring enhancing lesions in the brain. There is no abnormal meningeal enhancement. PITUITARY GLAND: No mass nor parasellar abnormality. No obvious abnormality in the cavernous sinuses. FLOW VOIDS: The expected flow void are noted. No evidence of obvious aneurysm nor obvious vascular ma lformation. PARANASAL SINUSES: The visualized paranasal sinuses appear unremarkable. ORBITS: No obvious abnormal findings. IMPRESSION: 1. There is a solitary 2.3 x 1.8 x 2.0 cm ring-enhancing neoplastic lesion in the high left parietal lobe with abundant surrounding edema as described above. Main consideration is as to whether this so mewhat thick-walled enhancing lesion is primary or metastatic, given that it is a solitary lesion. H owever, given the apparent history of lung malignancy this is most probably metastatic. 2. Other findings are consistent with chronic small vessel ischemic changes. No evidence of acute in farct. No evidence of intracranial hemorrhage. DATA REPOSITORY:
[2023-04-26] MEDS: Normal Saline Flush 10 ML SYR IVP (11:18)
[2023-04-26] MEDS: Gadoterate meglumine 20 ML SYRINGE IVP (11:18)
== END ==
PROVIDERS: PCP Nurse Practitioner Family; Visit Provider Nurse Practitioner Family
DX: I67.82 Cerebral ischemia (principal)
CPT/HCPCS: 70553

== ENCOUNTER → 2023-05-30 02:39 | Outpatient (CLI) | payer BC, SELFPAY ==
[2023-05-30 11:35] LABS: Abs Immature Grans 0.46 10^3/uL (0.0-0.06); Absolute Basophil Count 0.03 10^3/uL (0.0-0.2); Absolute Lymphocyte Count 0.54 10^3/uL (1.2-3.4); Absolute Monocyte Count 0.47 10^3/uL (0.1-0.8); Absolute Neutrophil Count 7.92 10^3/uL (1.2-6.7); Basophils % 0.3; HCT 37.3 % (40.0-50.0); HGB 12.9 g/dL (13.5-17.5); Immature Grans % 4.9; Lymphocytes % 5.7; MCH 31.8 pg (27.0-33.0); MCHC 34.6 % (32.0-36.0); MCV 92 fL (80-95); MPV 8.5 fL (8.0-11.0); Neutrophils % 84.1; Platelet Count 175 10^3/uL (130-400); RBC 4.06 10^6/uL (4.36-5.78); RDW 13.5 % (11.8-14.1); RDW-SD 45.8 fL; WBC 9.42 10^3/uL (4.4-10.8)
[2023-05-30 11:50] LABS: ALT 61 U/L (16-63); AST 31 U/L (15-37); Albumin 3.5 g/dL (3.4-5.0); Alkaline Phosphatase 65 U/L (46-116); Anion Gap 7.1 mmol/L (3-11); BUN 23 mg/dL (7-18); Bilirubin, Total 0.4 mg/dL (0.2-1.0); CO2 29.9 mmol/L (21.0-32.0); Chloride 100 mmol/L (98-107); Estimated GFR 84.05 (mL/min/1.73m2); Glucose 118 mg/dL (74-106); Potassium 4.7 mmol/L (3.5-5.1); Sodium 137 mmol/L (136-145); Total Protein 7.5 g/dL (6.4-8.2)
--- NOTE | 2023-05-30 13:10 | DI.CT_ITS ---
Exam(s) CT HEAD WO EXAM: CT HEAD WO CLINICAL HISTORY: SECONDARY NEOPLASM OF BRAIN,C79.31,S/P RADIATION,ACUTE WORSENING SYMPTOMS. TECHNIQUE: Imaging Protocol: Axial computed tomography images with coronal and sagittal reformatted images were created and reviewed COMPARISON: CT CT BRAIN NECK CTA from 04/25/2023 MR MR BRAIN WO/W from 04/26/2023 FINDINGS: Ventricles and Extra axial spaces: No change in appearance. Mild mass effect on the right lateral ve ntricle. Hemorrhage: None. Cerebral parenchyma: No evidence of acute infarct. No change in size of high left parietal mass. Si milar mount of surrounding white matter edema. No new mass.. Midline shift: None. Brainstem/Cerebellum: Normal. Calvarium: Normal. Visualized Paranasal sinuses:Clear. Mastoids: Clear. Soft Tissues: Unremarkable. ORBITS: Unremarkable. PITUITARY: Not enlarged. IMPRESSION: Stable size of high left parietal mass. Stable amount of surrounding edema. No new findings. RADIATION DOSE DELIVERED: Total DLP DATA REPOSITORY: All CT scans at this facility are submitted to the National Radiology Data Registry (NRDR) Dose Index Registry (DIR) with the [employer] (ACR). RADIATION OPTIMIZATION: All CT scans at this facility use at least one of these dose optimization te chniques: automated exposure control; mA and/or kV adjustment per patient size (includes targeted exa ms where dose is matched to clinical indication); or iterative reconstruction.
[2023-05-30] MEDS: Barium Sulfate 2% W/V-Creamy Vanilla Smoothie 450 ML BTL PO ×2 (13:19→13:20)
[2023-05-30] MEDS: Omnipaque 350 MG/ML 500 ML BTL-Imaging package 100 ML IJ (13:28)
[2023-05-30] MEDS: Normal Saline - Diluent 50 ML VIAL IJ (13:28)
--- NOTE | 2023-05-30 13:30 | DI.CT_ITS ---
Exam(s) CT CHEST/ABD/PEL W EXAM: CT CHEST/ABD/PEL W CLINICAL HISTORY: RT UPPER LOBE LUNG CANCER C34.11 BRAIN CANCER C79.31RT ADRENAL GLAND C79.71. TECHNIQUE: Imaging Protocol: Axial computed tomography images with coronal and sagittal reformatted images were created and reviewed CONTRAST MATERIAL: Intravenous: Omnipaque 350 Contrast volume:100 ml Oral: yes / COMPARISON: CT CT BRAIN NECK CTA from 04/25/2023 CT,PT NM PET CT STANDARD SKULL BASE TO MID-THIGH from 04/29/2023 FINDINGS: CHEST: Tracheobronchial tree: Patent where visualized. Pulmonary parenchyma: New 6 millimeter nodule superior segment of the left lower lobe medially. Stab le tiny nodule left lung apex. Stable areas of scarring in the right middle lobe and right hilar reg ion. Pleura: No effusion or pneumothorax. Lymph nodes: Within normal limits. Aorta: Thoracic portion non-dilated. Heart: No pericardial effusion. Bones: Unremarkable for age. No lytic or blastic lesions.No compression fractures. Soft tissues: Unremarkable. ABDOMEN and PELVIS: Liver: Mildly enlarged. Hepatic steatosis. No measurable mass. Gallbladder and biliary tract: No evidence of stones or wall thickening. No biliary dilatation. Pancreas: Normal density, no abnormal calcifications or inflammatory process. Spleen: Normal. Kidneys: Normal size, contour and axis. No radiodense stones. No obstructive uropathy. No suspicious masses seen. Adrenal glands: Right adrenal gland appears slightly thickened compared to the left. Aorta: Abdominal portion non-dilated. Atherosclerotic changes. Lymph nodes: 19 x 7 by 12 millimeter lymph node adjacent to the left adrenal gland. Small aortocaval lymph nodes at the level of the renal vessels, largest 9 millimeters in short axis. Additional small left para-aortic nodes at the level of the lower pole of the kidneys, measuring 6 and 8 millimeters i n short axis. Soft tissues: Small fatty containing umbilical hernia. Bladder: Unremarkable. Bowel: No obstruction or bowel wall thickening. Peritoneal cavity: No ascites. No focal collection. No mesenteric inflammatory response. Bones: No lytic or blastic lesions. Degenerative disc changes greatest at L5-S1. Reproductive organs: Prostate slightly enlarged. IMPRESSION: Chest: Stable appearing of post radiation changes in the right middle and perihilar regions. New 6 mi llimeter nodule superior segment left lower lobe. Stable tiny left apical nodule. Abdomen pelvis: Right adrenal gland is mildly thickened compared to the left but no focal nodule is s een. Small para-aortic lymph nodes which were seen to be PET avid on recent PET-CT.. RADIATION DOSE DELIVERED: Total DLP DATA REPOSITORY: All CT scans at this facility are submitted to the National Radiology Data Registry (NRDR) Dose Index Registry (DIR) with the [employer] (ACR). RADIATION OPTIMIZATION: All CT scans at this facility use at least one of these dose optimization te chniques: automated exposure control; mA and/or kV adjustment per patient size (includes targeted exa ms where dose is matched to clinical indication); or iterative reconstruction.
== END ==
PROVIDERS: PCP Nurse Practitioner Family; Visit Provider Internal Medicine Medical Oncology
DX: C34.11 Malignant neoplasm of upper lobe, right bronchus or lung (principal); C79.31 Secondary malignant neoplasm of brain; C79.71 Secondary malignant neoplasm of right adrenal gland
CPT/HCPCS: 36415; 74177; 80053; 70450; 71260; 85025

== ENCOUNTER 2023-07-04 05:48 | Outpatient (CLI) | payer BC, SELFPAY ==
[2023-07-04 09:28] LABS: Abs Immature Grans 0.36 10^3/uL (0.0-0.06); Absolute Basophil Count 0.03 10^3/uL (0.0-0.2); Absolute Monocyte Count 0.61 10^3/uL (0.1-0.8); Absolute Neutrophil Count 5.69 10^3/uL (1.2-6.7); Basophils % 0.4; HCT 34.6 % (40.0-50.0); HGB 11.9 g/dL (13.5-17.5); Immature Grans % 4.9; Lymphocytes % 8.2; MCH 32.2 pg (27.0-33.0); MCHC 34.4 % (32.0-36.0); MCV 94 fL (80-95); MPV 8.3 fL (8.0-11.0); Monocytes % 8.4; Neutrophils % 78.1; Platelet Count 163 10^3/uL (130-400); RDW 15.3 % (11.8-14.1); RDW-SD 51.8 fL; WBC 7.29 10^3/uL (4.4-10.8)
[2023-07-04 09:59] LABS: ALT 68 U/L (16-63); AST 38 U/L (15-37); Albumin 3.4 g/dL (3.4-5.0); Alkaline Phosphatase 59 U/L (46-116); Anion Gap 9.2 mmol/L (3-11); BUN 18 mg/dL (7-18); Bilirubin, Total 0.5 mg/dL (0.2-1.0); CO2 28.8 mmol/L (21.0-32.0); CREATININE 1.1 mg/dL (0.70-1.30); Calcium 8.8 mg/dL (8.5-10.1); Chloride 106 mmol/L (98-107); Estimated GFR 74.96 (mL/min/1.73m2); FREE T4 0.82 ng/dL (0.76-1.46); Glucose 119 mg/dL (74-106); Magnesium 1.9 mg/dL (1.8-2.4); Sodium 144 mmol/L (136-145); TSH 2.01 uIU/Ml (0.36-3.74); Total Protein 6.9 g/dL (6.4-8.2)
== END 2023-07-04 05:49 | disposition home or self-care (01) ==
LOC: LBO 05:48
PROVIDERS: PCP Nurse Practitioner Family; Visit Provider Internal Medicine Medical Oncology
DX: C34.11 Malignant neoplasm of upper lobe, right bronchus or lung (principal); C79.31 Secondary malignant neoplasm of brain
CPT/HCPCS: 36415; 80053; 83735; 84439; 84443; 85025

== ENCOUNTER 2023-07-17 09:59 | Emergency (ER) | payer BC, SELFPAY ==
[2023-07-17 10:01] VITALS: BP 162/93; PULSE 115; RESP 12; TEMP 37.1; O2SAT 96
--- NOTE | 2023-07-17 10:33 | W.ED.GENAD ---
Discharge Plan Disposition Patient Disposition: Home Condition: Stable Discharge Details Clinical Impression: CAP (community acquired pneumonia) Primary Care Provider: Serenity Larson ED Provider: Phuong Delgadillo Home Meds and New Rx's Prescriptions: New cefpodoxime 200 mg tablet 200 mg PO BID Qty: 14 0RF Rx Instructions: must administer with a meal/food azithromycin 250 mg tablet 250 mg PO DAILY 4 Days Qty: 4 0RF Rx Instructions: start on day 2 of therapy No Action omeprazole 20 mg capsule,delayed release(DR/EC) 20 mg PO DAILY levetiracetam [Keppra] 500 mg tablet 500 mg PO BID Qty: 60 0RF dexamethasone 4 mg tablet 4 mg PO DAILY Qty: 14 0RF Discharge Instructions Additional Instructions: Please follow-up as scheduled with your oncology team on 07/25/2023. I have prescribed for you antibiotics to treat presumed pneumonia. Please take the cefpodoxime and azithromycin for the full course as prescribed. I also recommend you continue using your rescue inhalers as needed. Return to emergency care if you develop new chest pains, difficulty breathing, worsening symptoms despite treatment, or if you are very worried and need to be rechecked again immediately HPI General Date/Time Provider Initiated Documentation: 07/17/23 09:59. HPI Narrative: Raffy is a 62-year-old male with history of lung cancer and brain metastasis under the care of [facility] [place] oncology who presents to the emergency department for evaluation of possible pneumonia. He reports that for the last 3 weeks he has had sore throat with cough, was seen by urgent care and prescribed increased doses of omeprazole which has not improved symptoms. Cough is occasionally productive of different color sputum. He also reports occasional lightheadedness with standing only. This morning he woke up with bodyaches and low-grade fever, this improved with ibuprofen. He denies change in baseline headaches, congestion, chest pain, shortness of breath, change in p.o. intake, abdominal pain, change in bowel or bladder function. Denies history of heart disease, diabetes, resistant infections. He did have a CAT scan performed on Tuesday, says they have not received the results yet. He does have a history of community-acquired pneumonia, says that this feels similar to previous episodes. Related Data Home Medications Medication Instructions Recorded Confirmed omeprazole 20 mg capsule,delayed 20 mg PO DAILY 04/24/23 04/24/23 release dexamethasone 4 mg tablet 4 mg PO DAILY #14 tabs 04/25/23 levetiracetam 500 mg tablet 500 mg PO BID #60 tabs 04/25/23 (Keppra) azithromycin 250 mg tablet 250 mg PO DAILY 4 days #4 tabs 07/17/23 cefpodoxime 200 mg tablet 200 mg PO BID #14 tabs 07/17/23 Previous Rx's Medication Instructions Recorded dexamethasone 4 mg tablet 4 mg PO DAILY #14 tabs 04/25/23 levetiracetam 500 mg tablet 500 mg PO BID #60 tabs 04/25/23 (Keppra) azithromycin 250 mg tablet 250 mg PO DAILY 4 days #4 tabs 07/17/23 cefpodoxime 200 mg tablet 200 mg PO BID #14 tabs 07/17/23 Allergies Allergy/AdvReac Type Severity Reaction Status Date / Time aspirin Allergy Severe Anaphylaxis Verified 07/17/23 10:13 Penicillins AdvReac Intermediate Other (See Unverified 07/17/23 10:13 Comment) General Stated Complaint: RespSymp MK: 3 Review of Systems Narrative: see HPI Exam Const General: cooperative, healthy appearing, comfortable and no acute distress Nutritional Appearance: average body habitus Resp Effort & Inspection: normal respiratory effort, able to speak in complete sentences and cough Auscultation: diminished lung sounds Cardio Rate: regular rate Rhythm: regular rhythm Course Vital Signs Vital signs: Vital Signs Temperature 37.1 C 07/17/23 10:01 Pulse 115 H 07/17/23 10:01 Respiratory Rate 12 07/17/23 10:01 Blood Pressure 162/93 H 07/17/23 10:01 Pulse Oximetry 96 07/17/23 10:01 Temperature 37.1 C 07/17/23 10:01 Temperature Source Oral 07/17/23 10:01 Pulse 115 H 07/17/23 10:01 Respiratory Rate 12 07/17/23 10:01 Respiratory Effort Normal, Non-Labored, Short of Breath 07/17/23 10:10 Blood Pressure 162/93 H 07/17/23 10:01 Blood Pressure Position Sitting 07/17/23 10:01 Pulse Oximetry 96 07/17/23 10:01 Oxygen Delivery Method Room Air 07/17/23 10:01 Oxygen Flow Rate 0 07/17/23 10:01 Medical Decision Making Raffy is a 62-year-old male with history of lung cancer and brain metastasis under the care of [facility] [place] [place] oncology who presents to the emergency department for evaluation of possible pneumonia. He reports that for the last 3 weeks he has had sore throat with cough, was seen by urgent care and prescribed increased doses of omeprazole which has not improved symptoms. Cough is occasionally productive of different color sputum. He also reports occasional lightheadedness with standing only. This morning he woke up with bodyaches and low-grade fever, this improved with ibuprofen. He denies change in baseline headaches, congestion, chest pain, shortness of breath, change in p.o. intake, abdominal pain, change in bowel or bladder function. Denies history of heart disease, diabetes, resistant infections. He did have a CAT scan performed on Tuesday, says they have not received the results yet. He does have a history of community-acquired pneumonia, says that this feels similar to previous episodes. Physical exam remarkable for diminished lung sounds in all espitia. Frequent congested cough. Normal heart sounds, mild tachycardia noted. Moist mucous membranes. Normal oropharynx. Clear voice. DDx includes was not limited to many acquired pneumonia, viral illness, obstructive process due to known lung cancer I independently interpreted the following tests: CBC and CMP reassuring. I did review CT abdomen/pelvis results, no new obstructive process or consolidations noted. Discussed case with , on-call oncologist. She did speak with patient's family this morning. Reviewed patient's presentation, lab/diagnostic imaging. She advises treatment for atypical pneumonia/CAP based on patient's symptoms, will treat with cefpodoxime and azithromycin, as patient is unable to tolerate penicillins. Respiratory panel ordered per MD suggestion. He does have a follow-up appointment on the 20th scheduled. While in the emergency department first dose of antibiotics given, as well as nebulizer treatment for tightness (he does use albuterol at home). Reviewed discharge instructions with patient and his family, including treatment for pneumonia and red flags indicate need for return to emergency care. They are agreeable with plan of care. Quality:SDOH Health Related Social Needs: No Data to Display PFSH All Active Problems (Updated 07/17/23 @ 11:59 by Phuong Moran) Chronic low back pain (Chronic) Dyspnea (Acute) Renal insufficiency, mild (Acute) CAP (community acquired pneumonia) (Acute) Medical History Lung cancer Family History (Updated 03/31/23 @ 11:58 by Yvonne Segal RN, RN) Mother , 70s No problems noted. Father , 80s alzheimers Prostate cancer Social History (Updated 03/31/23 @ 11:57 by Yvonne Segal RN, RN) Smoking/Tobacco Use Status: Former Tobacco Use Quit Date: 03/07/12 Pack-years: 40 Smoking risk assessment performed?: Yes Alcohol Intake: current Alcohol Intake frequency: a few times a month Alcohol type: hard liquor Drug use: Never Substance use type: does not use Household members: spouse Number of Children: 3 number of grandchildren: 1 What is your relationship status?: Panel score (0-1 are the most socially isolated patients): 1 Do you feel safe at home: Yes Do you feel safe in your relationship?: Yes
[2023-07-17 10:53] LABS: Abs Immature Grans 0.47 10^3/uL (0.0-0.06); Absolute Basophil Count 0.04 10^3/uL (0.0-0.2); Absolute Lymphocyte Count 0.81 10^3/uL (1.2-3.4); Absolute Monocyte Count 0.75 10^3/uL (0.1-0.8); Absolute Neutrophil Count 5.32 10^3/uL (1.2-6.7); Basophils % 0.5 %; HGB 12.6 g/dL (13.5-17.5); Immature Grans % 6.4 %; MCH 32.6 pg (27.0-33.0); MCV 93 fL (80-95); MPV 8.4 fL (8.0-11.0); Monocytes % 10.1 %; Platelet Count 233 10^3/uL (130-400); RBC 3.87 10^6/uL (4.36-5.78); RDW 15.6 % (11.8-14.1); RDW-SD 52.4 fL; WBC 7.39 10^3/uL (4.4-10.8)
[2023-07-17 11:08] LABS: ALT 51 U/L (16-63); AST 28 U/L (15-37); Albumin 3.9 g/dL (3.4-5.0); Alkaline Phosphatase 72 U/L (46-116); Anion Gap 7.6 mmol/L (3-11); BUN 21 mg/dL (7-18); Bilirubin, Total 0.9 mg/dL (0.2-1.0); CO2 30.4 mmol/L (21.0-32.0); CREATININE 1.2 mg/dL (0.70-1.30); Calcium 9.3 mg/dL (8.5-10.1); Chloride 101 mmol/L (98-107); Estimated GFR 67.53 (mL/min/1.73m2); Glucose 112 mg/dL (74-106); Potassium 3.6 mmol/L (3.5-5.1); Sodium 139 mmol/L (136-145); Total Protein 7.7 g/dL (6.4-8.2)
[2023-07-17 11:12] LABS: Diff Comment Agrees w/ Instrument; RBC Morphology Normal
[2023-07-17] MEDS: Albuterol/Ipratropium 3 ML UPD VIAL UPD (11:50)
[2023-07-17 12:01] LABS: COVID-19 PCR Negative (Negative); Influenza A PCR Negative (Negative); Influenza B PCR Negative (Negative); RSV PCR Negative (Negative)
[2023-07-17 12:04] LABS: Source Nasopharynx
[2023-07-17] MEDS: Azithromycin 250 MG TAB 500 MG PO (12:22)
[2023-07-17] MEDS: Cefpodoxime 200 MG TAB PO (12:22)
[2023-07-17 12:23] VITALS: BP 132/76; PULSE 126; RESP 20; O2SAT 98
[2023-07-18 21:26] LABS: Adenovirus DNA Result Negative (Negative); Metapneumovirus RNA Result Negative (Negative); Parainfluenza Type1 RNA Result Negative (Negative); Parainfluenza Type2 RNA Result Negative (Negative); Parainfluenza Type3 RNA Result Negative (Negative); Parainfluenza Type4 RNA Result Negative (Negative); Rhinovirus RNA Result Negative (Negative)
== END 2023-07-17 12:23 | disposition home or self-care (01) ==
PROVIDERS: Emergency Provider Nurse Practitioner Family; PCP Nurse Practitioner Family
DX: J18.9 Pneumonia, unspecified organism (principal); R06.02 Shortness of breath; R05.1 Acute cough; R50.9 Fever, unspecified; R07.0 Pain in throat; Z85.118 Personal history of other malignant neoplasm of bronchus and lung
CPT/HCPCS: 36415; 80053; 87632; 87637; 94640; 99283; 85025; J7620

== ENCOUNTER 2023-07-25 13:08 | Outpatient (CLI) | payer BC, SELFPAY ==
[2023-07-25 12:46] LABS: Abs Immature Grans 0.41 10^3/uL (0.0-0.06); Absolute Basophil Count 0.02 10^3/uL (0.0-0.2); Absolute Lymphocyte Count 0.88 10^3/uL (1.2-3.4); Absolute Monocyte Count 0.84 10^3/uL (0.1-0.8); Absolute Neutrophil Count 6.23 10^3/uL (1.2-6.7); Basophils % 0.2 %; HCT 33.9 % (40.0-50.0); HGB 11.6 g/dL (13.5-17.5); Immature Grans % 4.9 %; Lymphocytes % 10.5 %; MCH 31.9 pg (27.0-33.0); MCHC 34.2 % (32.0-36.0); MCV 93 fL (80-95); MPV 8.3 fL (8.0-11.0); Neutrophils % 74.4 %; Nucleated RBC 0.5 % (0.0-0.3); Platelet Count 280 10^3/uL (130-400); RBC 3.64 10^6/uL (4.36-5.78); RDW 14.6 % (11.8-14.1); RDW-SD 49.2 fL; WBC 8.38 10^3/uL (4.4-10.8)
[2023-07-25 13:07] LABS: ALT 42 U/L (16-63); AST 24 U/L (15-37); Albumin 3.4 g/dL (3.4-5.0); Alkaline Phosphatase 67 U/L (46-116); BUN 19 mg/dL (7-18); Bilirubin, Total 0.5 mg/dL (0.2-1.0); CREATININE 1.3 mg/dL (0.70-1.30); Calcium 8.7 mg/dL (8.5-10.1); Chloride 103 mmol/L (98-107); Estimated GFR 61.35 (mL/min/1.73m2); FREE T4 0.87 ng/dL (0.76-1.46); Glucose 106 mg/dL (74-106); Magnesium 1.9 mg/dL (1.8-2.4); Potassium 3.2 mmol/L (3.5-5.1); Sodium 141 mmol/L (136-145); TSH 2.93 uIU/Ml (0.36-3.74); Total Protein 6.9 g/dL (6.4-8.2)
== END 2023-07-25 13:09 | disposition home or self-care (01) ==
LOC: LBO 13:09
PROVIDERS: PCP Nurse Practitioner Family; Visit Provider Internal Medicine Medical Oncology
DX: C34.11 Malignant neoplasm of upper lobe, right bronchus or lung (principal); C79.71 Secondary malignant neoplasm of right adrenal gland
CPT/HCPCS: 36415; 80053; 83735; 84439; 84443; 85025

== ENCOUNTER 2023-07-29 17:14 | Emergency (ER) | payer BC, SELFPAY ==
[2023-07-29] VITALS (7 sets, daily range): BP systolic 115–139; BP diastolic 52–77; PULSE 99–123; RESP 18–24; TEMP 36.7–37; O2SAT 96–98
--- NOTE | 2023-07-29 17:15 | RT.EKG_ITS ---
APPROVED REPORT Exam: Resting ECG Reason for Exam: dizziness Patient Location: E HR:117 bpm ECG Measurements Heart Rate 117 AXIS PA 175 P 74 QRSd 90 QRS -6 QT 311 T 56 QTc 435 Conclusion Sinus tachycardia...rate> 99 Narrow complex sinus tachycardia at a rate of 117. Left axis deviation no signs of LVH based on volt age. Intervals within normal limits. No ST segment abnormalities. T wave flattening in aVL. Francis red to prior dated earlier this year T wave flattening in aVL is new.
[2023-07-29 18:07] LABS: Abs Immature Grans 0.04 10^3/uL (0.0-0.06); Absolute Basophil Count 0.01 10^3/uL (0.0-0.2); Absolute Lymphocyte Count 0.46 10^3/uL (1.2-3.4); Absolute Monocyte Count 0.12 10^3/uL (0.1-0.8); Absolute Neutrophil Count 5.32 10^3/uL (1.2-6.7); Basophils % 0.2 %; HCT 33.2 % (40.0-50.0); HGB 11.5 g/dL (13.5-17.5); Immature Grans % 0.7 %; Lymphocytes % 7.7 %; MCH 31.8 pg (27.0-33.0); MCHC 34.6 % (32.0-36.0); MCV 92 fL (80-95); MPV 8.3 fL (8.0-11.0); Neutrophils % 89.4 %; Platelet Count 217 10^3/uL (130-400); RBC 3.62 10^6/uL (4.36-5.78); RDW 13.8 % (11.8-14.1); RDW-SD 46.8 fL; WBC 5.95 10^3/uL (4.4-10.8)
[2023-07-29] MEDS: Normal Saline 1,000 ML 1000 ML IV (18:19)
[2023-07-29] MEDS: Ondansetron 4 MG/2 ML VIAL IVP (18:19)
[2023-07-29 18:26] LABS: Anion Gap 7.2 mmol/L (3-11); BUN 15 mg/dL (7-18); CO2 31.8 mmol/L (21.0-32.0); CREATININE 1.2 mg/dL (0.70-1.30); Calcium 9.1 mg/dL (8.5-10.1); Chloride 98 mmol/L (98-107); Estimated GFR 67.53 (mL/min/1.73m2); Glucose 112 mg/dL (74-106); Potassium 3.6 mmol/L (3.5-5.1); Sodium 137 mmol/L (136-145); Troponin I < 50 ng/L (< or =60)
--- NOTE | 2023-07-29 18:31 | W.ED.GENAD ---
Discharge Plan Disposition Patient Disposition: Home Discharge Details Clinical Impression: Chemotherapy-induced nausea Primary Care Provider: Serenity Larson ED Provider: Bryon Young Home Meds and New Rx's Prescriptions: Continued omeprazole 20 mg capsule,delayed release(DR/EC) 20 mg PO DAILY levetiracetam [Keppra] 500 mg tablet 500 mg PO BID Qty: 60 0RF fluticasone propion-salmeterol [Advair HFA] 230-21 mcg/actuation HFA aerosol inhaler 2 inh INHALATION BID folic acid 1 mg tablet 1 mg PO DAILY Patient Comments: TAKE ONE TABLET BY MOUTH EVERY DAY prochlorperazine maleate 10 mg tablet 10 mg PO Q6H Patient Comments: TAKE ONE TABLET BY MOUTH EVERY 6 HOURS NEEDED FOR NAUSEA Discharge Instructions Additional Instructions: You are seen in the emergency department for your nausea. Your blood work shows that your kidneys are working well and that you have no signs of any electrolyte abnormalities. Please take your nausea medicines at home. Please return to the emergency department if you begin vomiting and it does not stop or if you develop any weakness. Discharge Data Discharge Date/Time-TO BE ENTERED AT DEPARTURE: 07/29/23 19:01 HPI General Date/Time Provider Initiated Documentation: 07/29/23 17:47. HPI Narrative: MDM This is an overall very well-appearing mildly tachycardic but normothermic and not hypotensive 62-year-old male on outpatient chemotherapy with nausea and lightheadedness for which he will receive IV fluids. No chest pain to suggest ACS and ECG is nonischemic however will obtain a troponin to ensure that he has not sustained any myocardial injury. I considered CVA however the patient is neurologically intact. No nystagmus so I did not perform a hints exam. Given no vomiting I was not suspicious for posterior circulation CVA. Patient had no truncal ataxia. I considered any additional metastases however the patient has not been vomiting is neurologically intact and had no headaches I did not feel he required a head CT. No tonic-clonic activity to suggest seizure so no indication for altering his levetiracetam dosing at home nor consulting neurology. Soft nontender abdomen so I am not suspicious for any intra-abdominal process. Specifically no right lower quadrant tenderness to suggest appendicitis. No left lower quadrant tenderness nor diarrhea to suggest diverticulitis. Patient has not been vomiting so my suspicion is exceedingly low for SBO. No fevers to suggest neutropenic fever. No chest pain to suggest pneumonia. No shortness of breath nor hypoxia to suggest PE. No rash to abdomen to suggest zoster. Given no shortness of breath and no lower extremity pitting edema I was not suspicion for cardiotoxicity from chemotherapy. I considered sepsis however in the absence of any fevers and given that the patient's vital signs lacking tachypnea and hypotension I did not obtain blood cultures treat with lactate nor give broad-spectrum antibiotics. Will reassess following ondansetron and 1 L IV fluid bolus. Patient has outpatient prochlorperazine. 6:30 PM Basic metabolic panel showing mild hyperglycemia but no anion gap and normal bicarbonate??not consistent with DKA. No JULIAN. CBC shows mild normocytic anemia. No leukocytosis. No thrombocytopenia. Anemia similar to prior. Negative troponin. 6:52 PM I met with the patient and her sister. Patient felt markedly improved. His tachycardia resolved and his heart rate was 99. Per chart review since 2020 patient has frequently had elevated normal heart rates and tachycardia. He requested discharge. I advised ED return for any nausea that did not resolve with his home prochlorperazine and any vomiting or headache or weakness. He understood his return indications and was discharged with an empiric trial of expectant outpatient management. Chronic conditions affecting the care of the patient: Metastatic lung cancer History obtained from an outside historian: Patient's sister External [place] [facility] [place] Diagnostic interpretations performed by me: Per my independent interpretation EKG shows: Narrow complex sinus tachycardia at a rate of 117. Left axis deviation no signs of LVH based on voltage. Intervals within normal limits. No ST segment abnormalities. T wave flattening in aVL. Compared to prior dated earlier this year T wave flattening in aVL is new. ]Medications: Ondansetron Social determinants of health affecting disposition: N/A Management discussed with: N/A Treatment/interventions considered: N/A Response to therapies provided: Improved symptoms in the ED HPI This is a 62-year-old male with a history of primary lung malignancy with brain metastases on outpatient carboplatinum/pemetrexed/pembrolizumab prior to the emergency department with his sister via private vehicle in the setting of nausea and lightheadedness. Patient had chemotherapy 4 days ago at the cancer center. He has outpatient prochlorperazine. He has been nauseous and dizzy with movement. He denies any weakness. He is taken no recent falls. He has not been vomiting. He denies chest pain abdominal pain and shortness of breath. Exam General: Well-appearing in no acute distress speaking in complete sentences. Head: Normocephalic, atraumatic. Eye: Extraocular eye movements intact. No conjunctival injection. No scleral icterus. No afferent pupillary defect. Ear, nose, mouth, throat: Grossly normal inspection. Normal voice, handling secretions normally. Neck: Trachea midline. Cardiovascular: Well-perfused distal extremities. Rapid regular rate. No murmurs. Respiratory: Nonlabored respiration. Clear lungs bilaterally. Gastrointestinal: Nondistended abdomen.Soft nontender. Musculoskeletal: No lower extremity pitting edema edema. Moving all 4 extremities spontaneously. Skin: Normal for age and race, grossly normal temperature and turgor. No acute rash. Neurologic: Alert and appropriate, no apparent acute deficits. No nystagmus. GCS 15. Cranial nerves II through XII intact grossly. Psychiatric: Mood and manner are appropriate. Grooming and personal hygiene are appropriate. Related Data Home Medications Medication Instructions Recorded Confirmed omeprazole 20 mg capsule,delayed 20 mg PO DAILY 04/24/23 07/29/23 release levetiracetam 500 mg tablet 500 mg PO BID #60 tabs 04/25/23 07/29/23 (Keppra) fluticasone propionate 230 2 inh inhalation BID 07/29/23 07/29/23 mcg-salmeterol 21 mcg/actuation HFA inhaler (Advair HFA) folic acid 1 mg tablet 1 mg PO DAILY 07/29/23 07/29/23 prochlorperazine maleate 10 mg 10 mg PO Q6H 07/29/23 07/29/23 tablet Previous Rx's Medication Instructions Recorded levetiracetam 500 mg tablet 500 mg PO BID #60 tabs 04/25/23 (Keppra) Allergies Allergy/AdvReac Type Severity Reaction Status Date / Time aspirin Allergy Severe Anaphylaxis Verified 07/29/23 17:20 Penicillins AdvReac Intermediate Other (See Unverified 07/29/23 17:20 Comment) General Stated Complaint: Dizzy/Sync MK: 3 Course Vital Signs Vital signs: Vital Signs Temperature 36.7 C 05/24/24 17:17 Pulse 123 H 07/29/23 17:17 Respiratory Rate 18 07/29/23 17:17 Blood Pressure 139/70 07/29/23 17:17 Pulse Oximetry 98 07/29/23 17:17 Temperature 37.0 C 07/29/23 18:26 Temperature Source Temporal Artery Scan 07/29/23 18:26 Pulse 102 H 07/29/23 18:25 Respiratory Rate 22 07/29/23 18:25 Respiratory Effort Normal, Non-Labored 07/29/23 17:24 Respiratory Depth Normal 07/29/23 17:24 Respiratory Pattern Normal 07/29/23 17:24 Blood Pressure 115/52 L 07/29/23 18:25 Blood Pressure Position Sitting 07/29/23 17:17 Pulse Oximetry 97 07/29/23 18:25 Lab/Test Results Lab/Test Results: Laboratory Tests Range/Units 07/29/23 18:03 WBC (4.4-10.8) 10^3/uL 5.95 RBC (4.36-5.78) 10^6/uL 3.62 L Hgb (13.5-17.5) g/dL 11.5 L Hct (40.0-50.0) % 33.2 L MCV (80-95) fL 92 MCH (27.0-33.0) pg 31.8 MCHC (32.0-36.0) % 34.6 RDW (11.8-14.1) % 13.8 Plt Count (130-400) 10^3/uL 217 MPV (8.0-11.0) fL 8.3 Immature Gran % % 0.7 Neutrophils % % 89.4 Lymphocytes % % 7.7 Monocytes % % 2.0 Eosinophils % % 0.0 Basophils % % 0.2 Nucleated RBC % (0.0-0.3) % 0.0 Absolute Neutrophils (1.2-6.7) 10^3/uL 5.32 Absolute Lymphocytes (1.2-3.4) 10^3/uL 0.46 L Absolute Monocytes (0.1-0.8) 10^3/uL 0.12 Absolute Eosinophils (0.0-0.7) 10^3/uL 0.00 Absolute Basophils (0.0-0.2) 10^3/uL 0.01 Sodium (136-145) mmol/L 137 Potassium (3.5-5.1) mmol/L 3.6 Chloride (98-107) mmol/L 98 Carbon Dioxide (21.0-32.0) mmol/L 31.8 Anion Gap (3-11) mmol/L 7.2 BUN (7-18) mg/dL 15 Creatinine (0.70-1.30) mg/dL 1.2 Est GFR (CKD-EPI 2020) (mL/min/1.73m2) 67.53 Glucose (74-106) mg/dL 112 H Calcium (8.5-10.1) mg/dL 9.1 Troponin I (< or =60) ng/L < 50 Medical Decision Making Quality:SDOH Health Related Social Needs: No Data to Display PFSH All Active Problems (Updated 07/29/23 @ 18:46 by Bryon Young MD) Chemotherapy-induced nausea (Acute) Chronic low back pain (Chronic) Dyspnea (Acute) Renal insufficiency, mild (Acute) CAP (community acquired pneumonia) (Acute) Medical History Lung cancer Family History (Updated 03/31/23 @ 11:58 by Yvonne Segal RN, RN) Mother , 70s No problems noted. Father , 80s alzheimers Prostate cancer Social History (Updated 03/31/23 @ 11:57 by Yvonne Segal RN, RN) Smoking/Tobacco Use Status: Former Tobacco Use Quit Date: 03/07/12 Pack-years: 40 Smoking risk assessment performed?: Yes Alcohol Intake: current Alcohol Intake frequency: a few times a month Alcohol type: hard liquor Drug use: Never Substance use type: does not use Household members: spouse Number of Children: 3 number of grandchildren: 1 What is your relationship status?: Panel score (0-1 are the most socially isolated patients): 1 Do you feel safe at home: Yes Do you feel safe in your relationship?: Yes
== END 2023-07-29 19:01 | disposition home or self-care (01) ==
PROVIDERS: Emergency Provider Emergency Medicine; PCP Nurse Practitioner Family
DX: R11.2 Nausea with vomiting, unspecified (principal); R42 Dizziness and giddiness; T45.1X5A Adverse effect of antineoplastic and immunosuppressive drugs, initial encounter; C34.90 Malignant neoplasm of unspecified part of unspecified bronchus or lung; C79.31 Secondary malignant neoplasm of brain; Z87.891 Personal history of nicotine dependence
CPT/HCPCS: 80048; 93005; 96361; 96374; 99284; 84484; 85025; 93010; J2405

== ENCOUNTER → 2023-08-12 03:10 | Outpatient (CLI) | payer BC, SELFPAY ==
--- NOTE | 2023-08-12 | DI.MRI_ITS ---
Exam(s) MR BRAIN WO/W EXAM: MR BRAIN WO/W CLINICAL HISTORY: BRAIN CANCER C79.31 LUNG CANCER METS TO BRAIN S/P RADIATION, SURVEILLANCE TECHNIQUE: Multiplanar multisequence MRI of the brain was performed. CONTRAST MATERIAL: IV Contrast: 20 mL of Dotarem contrast administered. COMPARISON: MR MR BRAIN WO/W from 01/19/2021 MR MR BRAIN WO/W from 04/26/2023 FINDINGS: VENTRICLES AND EXTRA AXIAL SPACES: Normal in size and morphology for the patient's age. HEMORRHAGE: None. CEREBRAL PARENCHYMA: No focus of restricted diffusion to suggest acute infarct. There are areas of in creased signal seen in the white matter likely reflecting chronic microvascular ischemic disease. Th ere has been interval decrease in size of the metastatic focus in the left parietal lobe which now me asures 1.1 x 0.7 cm. This compares to 2.3 x 1.7 cm. (Series [id number] image 22). There is also been a significant decrease in size in the perilesional edema. No new intracranial masses are identified. MIDLINE SHIFT: None. BRAINSTEM/CEREBELLUM: Normal. CALVARIUM: Normal. ENHANCEMENT: Please see the above section under cerebral parenchyma. VISUALIZED PARANASAL SINUSES/MASTOIDS: There is a mucous retention cyst or polyp in the right maxilla ry sinus. [place] OF BALL: Normal flow void. PITUITARY GLAND: Unremarkable. OTHER FINDINGS: IMPRESSION: 1. Since the prior examination there has been a decrease in size of the left parietal metastatic focu s which now measures 1.1 x 0.7 cm, compared to 2.3 x 1.7 cm. 2. No new metastatic foci are identified. 3. No evidence of an acute infarct. 4. White Matter lesions seen on the T2 and FLAIR images most suggestive of chronic microvascular isch emic disease. DATA REPOSITORY:
[2023-08-12] MEDS: Normal Saline Flush 10 ML SYR IJ (08:58)
[2023-08-12] MEDS: Gadoterate meglumine 20 ML SYRINGE IVP (08:58)
== END ==
PROVIDERS: PCP Nurse Practitioner Family; Visit Provider Radiology Radiation Oncology
DX: I67.82 Cerebral ischemia (principal)
CPT/HCPCS: 70553

== ENCOUNTER 2023-08-17 01:29 | Outpatient (CLI) | payer BC, SELFPAY ==
[2023-08-17 07:56] LABS: Abs Immature Grans 0.21 10^3/uL (0.0-0.06); Absolute Basophil Count 0.02 10^3/uL (0.0-0.2); Absolute Lymphocyte Count 0.76 10^3/uL (1.2-3.4); Absolute Monocyte Count 0.67 10^3/uL (0.1-0.8); Absolute Neutrophil Count 2.97 10^3/uL (1.2-6.7); Basophils % 0.4 %; HCT 34.2 % (40.0-50.0); HGB 11.9 g/dL (13.5-17.5); Immature Grans % 4.5 %; Lymphocytes % 16.4 %; MCH 31.7 pg (27.0-33.0); MCHC 34.8 % (32.0-36.0); MCV 91 fL (80-95); MPV 8.2 fL (8.0-11.0); Monocytes % 14.5 %; Neutrophils % 64.2 %; Platelet Count 303 10^3/uL (130-400); RBC 3.75 10^6/uL (4.36-5.78); RDW 14.4 % (11.8-14.1); RDW-SD 47.1 fL; WBC 4.63 10^3/uL (4.4-10.8)
[2023-08-17 08:22] LABS: ALT 50 U/L (16-63); AST 37 U/L (15-37); Albumin 3.7 g/dL (3.4-5.0); Alkaline Phosphatase 78 U/L (46-116); Anion Gap 9.1 mmol/L (3-11); BUN 13 mg/dL (7-18); Bilirubin, Total 0.5 mg/dL (0.2-1.0); CO2 29.9 mmol/L (21.0-32.0); CREATININE 1.4 mg/dL (0.70-1.30); Calcium 9.2 mg/dL (8.5-10.1); Chloride 102 mmol/L (98-107); Estimated GFR 56.13 (mL/min/1.73m2); FREE T4 0.91 ng/dL (0.76-1.46); Glucose 112 mg/dL (74-106); Magnesium 1.6 mg/dL (1.8-2.4); Potassium 3.4 mmol/L (3.5-5.1); Sodium 141 mmol/L (136-145); Total Protein 7.5 g/dL (6.4-8.2)
== END 2023-08-17 01:30 | disposition home or self-care (01) ==
LOC: LBO 01:29
PROVIDERS: PCP Nurse Practitioner Family; Visit Provider Internal Medicine Medical Oncology
DX: C34.11 Malignant neoplasm of upper lobe, right bronchus or lung (principal); C79.31 Secondary malignant neoplasm of brain; Z79.899 Other long term (current) drug therapy
CPT/HCPCS: 36415; 80053; 83735; 84439; 84443; 85025

== ENCOUNTER 2023-09-05 03:54 | Outpatient (CLI) | payer BC, SELFPAY ==
[2023-09-05 08:20] LABS: Abs Immature Grans 0.12 10^3/uL (0.0-0.06); Absolute Basophil Count 0.01 10^3/uL (0.0-0.2); Absolute Monocyte Count 0.58 10^3/uL (0.1-0.8); Basophils % 0.3 %; HCT 34.7 % (40.0-50.0); HGB 11.9 g/dL (13.5-17.5); Immature Grans % 3.3 %; Lymphocytes % 16.6 %; MCH 31.8 pg (27.0-33.0); MCHC 34.3 % (32.0-36.0); MCV 93 fL (80-95); MPV 8.5 fL (8.0-11.0); Monocytes % 16.1 %; Neutrophils % 63.7 %; Platelet Count 201 10^3/uL (130-400); RBC 3.74 10^6/uL (4.36-5.78); RDW 14.9 % (11.8-14.1); RDW-SD 49.1 fL; WBC 3.61 10^3/uL (4.4-10.8)
[2023-09-05 08:45] LABS: ALT 43 U/L (16-63); AST 32 U/L (15-37); Albumin 3.8 g/dL (3.4-5.0); Alkaline Phosphatase 77 U/L (46-116); Anion Gap 7.8 mmol/L (3-11); BUN 10 mg/dL (7-18); CO2 30.2 mmol/L (21.0-32.0); CREATININE 1.3 mg/dL (0.70-1.30); Calcium 9.2 mg/dL (8.5-10.1); Chloride 104 mmol/L (98-107); Estimated GFR 61.35 (mL/min/1.73m2); FREE T4 0.86 ng/dL (0.76-1.46); Glucose 112 mg/dL (74-106); Magnesium 1.6 mg/dL (1.8-2.4); Potassium 3.7 mmol/L (3.5-5.1); Sodium 142 mmol/L (136-145); TSH 6.67 uIU/Ml (0.36-3.74); Total Protein 7.6 g/dL (6.4-8.2)
== END 2023-09-05 03:55 | disposition home or self-care (01) ==
LOC: LBO 03:56
PROVIDERS: PCP Nurse Practitioner Family; Visit Provider Internal Medicine Medical Oncology
DX: C34.11 Malignant neoplasm of upper lobe, right bronchus or lung (principal); C79.31 Secondary malignant neoplasm of brain; Z79.899 Other long term (current) drug therapy
CPT/HCPCS: 36415; 80053; 83735; 84439; 84443; 85025

== ENCOUNTER 2023-09-26 02:06 | Outpatient (CLI) | payer BC, SELFPAY ==
[2023-09-26 07:58] LABS: Abs Immature Grans 0.06 10^3/uL (0.0-0.06); Absolute Basophil Count 0.01 10^3/uL (0.0-0.2); Absolute Lymphocyte Count 0.57 10^3/uL (1.2-3.4); Absolute Monocyte Count 0.44 10^3/uL (0.1-0.8); Absolute Neutrophil Count 2.19 10^3/uL (1.2-6.7); Basophils % 0.3 %; HCT 32.4 % (40.0-50.0); HGB 11.1 g/dL (13.5-17.5); Immature Grans % 1.8 %; Lymphocytes % 17.4 %; MCH 31.3 pg (27.0-33.0); MCHC 34.3 % (32.0-36.0); MCV 91 fL (80-95); MPV 8.2 fL (8.0-11.0); Monocytes % 13.5 %; Platelet Count 214 10^3/uL (130-400); RBC 3.55 10^6/uL (4.36-5.78); RDW 15.3 % (11.8-14.1); WBC 3.27 10^3/uL (4.4-10.8)
[2023-09-26 08:25] LABS: ALT 36 U/L (16-63); AST 22 U/L (15-37); Albumin 3.5 g/dL (3.4-5.0); Alkaline Phosphatase 74 U/L (46-116); Anion Gap 8.6 mmol/L (3-11); BUN 10 mg/dL (7-18); CO2 30.4 mmol/L (21.0-32.0); CREATININE 1.2 mg/dL (0.70-1.30); Chloride 104 mmol/L (98-107); Estimated GFR 67.11 (mL/min/1.73m2); FREE T4 0.95 ng/dL (0.76-1.46); Glucose 116 mg/dL (74-106); Magnesium 1.5 mg/dL (1.8-2.4); Potassium 3.5 mmol/L (3.5-5.1); Sodium 143 mmol/L (136-145); TSH 4.73 uIU/Ml (0.36-3.74); Total Protein 7.5 g/dL (6.4-8.2)
== END 2023-09-26 02:07 | disposition home or self-care (01) ==
LOC: LBO 02:06
PROVIDERS: PCP Nurse Practitioner Family; Visit Provider Internal Medicine Medical Oncology
DX: C34.11 Malignant neoplasm of upper lobe, right bronchus or lung (principal); C79.31 Secondary malignant neoplasm of brain; Z79.899 Other long term (current) drug therapy
CPT/HCPCS: 80053; 83735; 84439; 84443; 85025

== ENCOUNTER 2023-10-17 03:39 | Outpatient (CLI) | payer BC, SELFPAY ==
--- OUTSIDE RECORDS SUMMARY | 2023-10-17 03:56 | XMS_ITS | Encounter Summary ---
Author Organization Formerly [facility] [place] [address] Care Team Providers Care Ear Machine Operator Name Role Phone Nick Martinez MD Primary Care Provider Reason for Visit * Diagnostic Test (Routine) - Closed Specialty Diagnoses / Procedures Referred By Mariana workman Referred To Contact Radiology Diagnoses Primary malignant 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 of right adrenal gland Procedures NM PET CT Skull Base to Mid-thigh Boy Tovar MD [facility] DR HEMATOLOGY [place] [address] [place] [address] Referral ID Status Reason Start Date Expiration Date V isits Requested Visits Authorized [id number] Closed Specialty Service Requested 09/09/2023 11/07/2023 1 1 Encounter Details Date Type Department Care Team (Late st Contact Info) Description 10/10/2023 8:43 AM EDT - 10/10/2023 11:59 PM EDT Hospital Encounter [place] [phone] Boy Tovar MD [facility] DR HEMATOLOGY [place] [address] Arrived Discharge Disposition: Home Social History Tobacco Use Types Packs/Day Years Used Date Smoking Tobacco: Former Smokeless Tobacco: Current Chew Comments:1 can per day. Plan s to quit today 02/04/21 Alcohol Use Standard Drinks/Week Comments Yes 0 (1 standard drink = 0.6 oz pur e alcohol) on occassion only [facility] Utilities Answer Date Recorded In the past 12 months has th e electric, gas, oil, or water company threatened to shut off services in your home? No 04/29/2023 Overall Financial Resource Strain (CARDIA) Answe r Date Recorded How hard is it for you to pa y for the very basics like food, housing, medical care, and heating? Somewhat hard 04/29/2023 Hunger Vital Sign Answer Date Recorded Within the past 12 months, y ou worried that your food would run out before you got the money to buy more. Patient declined Ran Out of Food in the Last Year Not on file 04/29/2023 PRAPARE - Transportation Answer Date Re corded In the past 12 months, has l ack of transportation kept you from medical appointments or from getting medications? No 04/08 In the past 12 months, has l ack of transportation kept you from meetings, work, or from getting things needed for daily living? No 04/29/2023 Housing Stability Vital Sign Answer Jorge e Recorded In the last 12 months, was t here a time when you were not able to pay the mortgage or rent on time? No 04/29/2023 In the last 12 months, how many places have you lived? 1 04/29/2023 In the last 12 months, was t here a time when you did not have a steady place to sleep or slept in a snf (including now)? No 04/29/2023 Sex and Gender Information Value Date Recorded Sex Assigned at Not on file Gender Identity Not on file Sexual Orientation Not on file documented as of this encounter Medications at Time of Discharge Medication Sig Dispensed Refills Start Date End Date magnesium oxide (Mag-Ox) 400 mg (241.3 mg magnesium) TabletIndications:Hypomag nesemia Take 1 tablet by mouth daily. 30 tablet 12 09/26/2023 levETIRAcetam (Keppra) 500 mg tablet TAKE ONE TABLET BY MOUTH TWICE A DAY 60 tablet 3 09/12/2023 loratadine (Claritin) 10 mg Tablet Take 10 mg by mouth daily. prochlorperazine (Compazine) 10 mg tabletIndications:Primary malignant 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 Take 1 tablet by mouth every 6 hours as needed for Nausea. 30 tablet 3 07/25/2023 folic acid (Vitamin B9) 1 mg tabletIndications:Primary malignant 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 Take 1 tablet by mouth daily. 90 tablet 3 07/25/2023 LORazepam (Ativan) 1 mg tablet Take 1 tablet by mouth every 6 hours as needed for Anxiety. 15 tablet 05/25/2023 omeprazole (PriLOSEC) [address] capsule Take 40 mg by mouth daily. 02/22/2023 Advair HFA 115-21 mcg/actuation HFA Aerosol Inhaler Inhale 2 puffs into the lungs 2 times daily. 01/19/2023 albuteroL 90 mcg/actuation HFA Aerosol InhalerIndications:Primar y malignant 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 Inhale 2 puffs into the lungs every 4 hours as needed for Wheezing. Use with spacer 1 each 1 10/18/2022 acetaminophen (Tylenol) 500 mg Tablet Take 1,000 mg by mouth every 6 hours as needed for Pain. documented as of this encounter Plan of Treatment Upcoming Encounters Date Type Department Care Team (Late st Contact Info) Description 10/17/2023 8:30 AM EDT Office Visit Hematology/Oncology at [address] [phone] Boy Tovar MD [facility] DR HEMATOLOGY [place] [address] 10/17/2023 9:00 AM EDT Infusion Hematology Oncology at [address] [phone] documented as of this encounter Procedures Procedure Name Priority Date/Time Associated Diagnosis Comments NM PET CT SKULL BASE TO MID-THIGH ([facility]) Routine 10/10/2023 10:29 AM EDT 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 Secondary malignant neoplasm of right adrenal gland POC, GLUCOSE Routine 10/10/2023 9:09 AM EDT documented in this encounter Results * POC, GLUCOSE (10/10/2023 9:09 AM EDT) Glucometer, POC 123 65 - 199 mg/dL 10/10/2023 9:09 AM EDT [facility] Comment:Supplemental ranges: <140 mg/dL before meals <180 mg/dL all other times of the day. Blood CAPILLARY BLOOD / Unknown 10/10/2023 9:09 AM EDT 10/10/2023 9:09 AM EDT Boy Tovar MD POINT OF CARE TEST O RDERABLES [facility] [place] [phone] documented in this encounter Visit Diagnoses Not on filedocumented in this encounter Care Teams Ear Machine Operator Relationship Specialty Start Date End Date Nick Martinez MD [address] [place] [address] PCP - General Internal Medicine 07/01/18 documented as of this encounter
--- OUTSIDE RECORDS SUMMARY | 2023-10-17 03:56 | XMS_ITS | Encounter Summary ---
Author Organization [place] [id number] Care Team Providers Care Multimedia Teacher Name Role Phone Nick Martinez MD Primary Care Provider [phone] Reason for Referral * Diagnostic Test (Routine) - Closed Specialty Diagnoses / Procedures Referred By Mariana wrokman Referred To Contact Radiology Diagnoses Primary malignant 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 of right adrenal gland Procedures NM PET CT Skull Base to Mid-thigh Boy Tovar MD [facility] [place] [address] [place] [address] Referral ID Status Reason Start Date Expiration Date V isits Requested Visits Authorized [id number] Closed Specialty Service Requested 09/09/2023 11/07/2023 1 1 Reason for Visit * Diagnostic Test (Routine) - Closed Specialty Diagnoses / Procedures Referred By Mariana workman Referred To Contact Radiology Diagnoses Primary malignant 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 of right adrenal gland Procedures NM PET CT Skull Base to Mid-thigh Boy Tovar MD [facility] [place] [address] [facility] [place] [address] Referral ID Status Reason Start Date Expiration Date V isits Requested Visits Authorized [id number] Closed Specialty Service Requested 09/09/2023 11/07/2023 1 1 Encounter Details Date Type Department Care Team (Late st Contact Info) Description 10/10/2023 8:42 AM EDT Hospital Encounter [place] [address] Boy Tovar MD [facility] DR HEMATOLOGY AND ONCOLOGY [place] [id number] Primary malignant 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; Brain metastasis; Secondary malignant neoplasm of right adrenal gland Discharge Disposition: Home Social History Tobacco Use Types Packs/Day Years Used Date Smoking Tobacco: Former Smokeless Tobacco: Current Chew Comments:1 can per day. Plan s to quit today 02/04/21 Alcohol Use Standard Drinks/Week Comments Yes 0 (1 standard drink = 0.6 oz pur e alcohol) on occassion only [facility] Utilities Answer Date Recorded In the past 12 months has th e electric, gas, oil, or water [employer] threatened to shut off services in your [...] place to sleep or slept in a longterm (including now)? No 04/29/2023 Sex and Gender [...] 8:30 AM EDT Office Visit Hematology/Oncology at [address] [phone] Boy Tovar MD [facility] [address] [place] [address] 10/17/2023 9:00 AM EDT Infusion Hematology Oncology at [address] [phone] documented as of this encounter Procedures Procedure Name Priority Date/Time Associated Diagnosis Comments NM PET CT SKULL BASE TO MID-THIGH ([facility]) Routine 10/10/2023 10:29 AM EDT 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 Secondary malignant neoplasm of right adrenal gland documented in this encounter Results * NM PET CT Skull Base to Mid-thigh (10/10/2023 10:29 AM EDT) [employer] WORKSTATION ID [id number] RAD Anatomical Region Laterality Modality Positron Emissio n Tomography (PET) Impressions 10/12/2023 11:15 AM EDT 1. ??No evidence of tumor recurrence or active metastatic disease. 2. ??New from recent CT of 09/01/2023, small mildly FDG avid groundglass opacities in the right lower lobe, consistent with an interval inflammatory/infectious process. Please correlate with clinical exam. I have personally reviewed the image(s) and the resident's interpretation and agree with the findings, Alfredo Jean-Baptiste MD at 10/12/2023 11:15 AM Thank you for letting us participate in the care of this patient. ??If you are a health care provider and have any questions regarding this report, please contact the number below. ??For patients who have questions please contact the health medicare specialist that requested your imaging first. ? 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 C34.11, Malignant neoplasm of upper lobe, right bronchus or lung - C79.31, Secondary malignant neoplasm of brain - C79.71, Secondary malignant neoplasm of right adrenal gland TECHNIQUE: Following IV injection of 74-homgyd-0-deoxyglucose (FDG) a standard uptake of approximately 60 minutes, a noncontrast CT scan followed by a PET scan were acquired from the base of the skull to mid thighs. The noncontrast CT was used for anatomic localization and photon attenuation correction of the PET scan. Blood glucose level: 123 (mg/dL) FDG dose: 17.9 mCi COMPARISON: PET/CT 04/29/2023 CT chest abdomen pelvis 09/01/2023 FINDINGS: HEAD/NECK: Normal activity in all soft tissue regions of the neck and visualized lower head. No lymphadenopathy. CHEST: Normal activity in all soft tissue regions. No lymphadenopathy. New small mildly FDG avid groundglass opacities in the right lower lobe new from recent CT of 09/01/2023, consistent with an interval inflammatory/infectious process (axial images 115-118). Sub-6 mm non-FDG avid left apical lung nodule stable since PET CT 01/19/2021 favored benign. Stable post radiation changes of the right middle lobe without FDG activity. Coronary artery and aortic arch calcifications. ABDOMEN/PELVIS: Resolution of previously seen right adrenal metastasis. Resolution of previously seen periaortic, aortocaval, and portacaval lymph nodes. New diffusely increased FDG uptake along the esophagus, likely an esophagitis. Otherwise normal activity in all soft tissue regions. SKELETON/EXTREMITIES: Decreased marrow activity in the thoracic spine is consistent with post radiation change. Normal activity in all other regions of the axial and visualized appendicular skeleton. Procedure Note Alfredo Jean-Baptiste MD - 10/12/2023 EXAMINATION: NM PET CT STANDARD SKULL BASE TO MID-THIGH CLINICAL HISTORY: History of metastatic lung cancer with abdominalpelvic adenopathy status post STEAM METER READER currently on chemotherapy with palliativeintent. C34.11, Malignant neoplasm of upper lobe, right bronchus or lung -C79.31, Secondary malignant neoplasm of brain - C79.71, Secondary malignantneoplasm of right adrenal gland TECHNIQUE: Following IV injection of 27-bgchgc-9-deoxyglucose (FDG) astandard uptake of approximately 60 minutes, a noncontrast CT scan followed by aPET scan were acquired from the base of the skull to mid thighs. The noncontrast CTwas used for anatomic localization and photon attenuation correction of thePET scan. Blood glucose level: 123 (mg/dL) FDG dose: 17.9 mCi COMPARISON: PET/CT 04/29/2023 CT chest abdomen pelvis 09/01/2023 FINDINGS: HEAD/NECK: Normal activity in all soft tissue regions of the neck and visualizedlower head. No lymphadenopathy. CHEST: Normal activity in all soft tissue regions. No lymphadenopathy. New small mildly FDG avid groundglass opacities in the right lower lobenew from recent CT of 09/01/2023, consistent with an intervalinflammatory/infectious process (axial images 115-118). Sub-6 mm non-FDG avid left apical lung nodule stable since PET CT01/19/2021 favored benign. Stable post radiation changes of the right middle lobe without FDGactivity. Coronary artery and aortic arch calcifications. ABDOMEN/PELVIS: Resolution of previously seen right adrenal metastasis. Resolution of previously seen periaortic, aortocaval, and portacavallymph nodes. New diffusely increased FDG uptake along the esophagus, likely anesophagitis. Otherwise normal activity in all soft tissue regions. SKELETON/EXTREMITIES: Decreased marrow activity in the thoracic spine is consistent with post radiation change. Normal activity in all other regions of the axial and visualized appendicular skeleton. IMPRESSION 1. No evidence of tumor recurrence or active metastatic disease. 2. New from recent CT of 09/01/2023, small mildly FDG avid groundglassopacities in the right lower lobe, consistent with an intervalinflammatory/infectious process. Please correlate with clinical exam. I have personally reviewed the image(s) and the resident's interpretationand agree with the findings, Alfredo Jean-Baptiste MD at 10/12/2023 11:15 AM Thank you for letting us participate in the care of this patient. If youare a health care provider and have any questions regarding this report,please contact the number below. For patients who have questions please contactthe health medicare specialist that requested your imaging first. 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 Secondary malignant neoplasm of adrenal gland Primary malignant 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 Malignant neoplasm of upper lobe, bronchus or lung Brain metastasis 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 Secondary malignant neoplasm of adrenal gland documented in this encounter Administered Medications Inactive Administered Medications - up to 3 most recent administrations Medication Order MAR Action Action Date Dose Rate Site fludeoxyglucose (F-18) FDG injection 0-20 mCi 0-20 mCi, Intravenous, ONCE PRN, 1 dose, Starting on Tue10/10/23 at 0921, Until Tue10/10/23 at 0916, Per Protocol, Radiology Contrast, Routine Given 10/10/2023 9:16 AM EDT 17.9 mCi documented in this encounter Care Teams Multimedia Teacher Relationship Specialty Start Date End Date Nick Martinez MD [address] [place] [id number] PCP - General Internal Medicine 07/01/18 documented as of this encounter
--- OUTSIDE RECORDS SUMMARY | 2023-10-17 03:56 | XMS_ITS | Encounter Summary ---
Author Organization [facility] [place] [address] Care Team Providers Care Net Mender Name Role Phone Nick Martinez MD Primary Care Provider [phone] Encounter Details Date Type Department Care Team (Latest Contact Info) Description 10/10/2023 Travel Social History Tobacco Use Types Packs/Day Years Used Date Smoking Tobacco: Former Smokeless Tobacco: Current Chew Comments:1 can per day. Plan s to quit today 02/04/21 Alcohol Use Standard Drinks/Week Comments Yes 0 (1 standard drink = 0.6 oz pur e alcohol) on occassion only [facility] Utilities Answer Date Recorded In the past 12 months has e electric, gas, oil, or water company [...] place to sleep or slept in a senior care (including now)? No 04/29/2023 Sex and Gender Information Value Date Recorded Sex Assigned at Not on file Gender Identity Not on file Sexual Orientation Not on file documented as of this encounter Plan of Treatment Upcoming Encounters Date Type Department Care Team (Late st Contact Info) Description 10/17/2023 8:30 AM EDT Office Visit Hematology/Oncology at [address] [phone] Boy Tovar MD [facility] [address] [place] [address] 10/17/2023 9:00 AM EDT Infusion Hematology Oncology at [address] [phone] documented as of this encounter Visit Diagnoses Not on filedocumented in this encounter Care Teams Net Mender Relationship Specialty Start Date End Date Nick Martinez MD [address] [place] [address] PCP - General Internal Medicine 07/01/18 documented as of this encounter
--- OUTSIDE RECORDS SUMMARY | 2023-10-17 03:56 | XMS_ITS | Encounter Summary ---
Author Organization [facility] [place] [address] Care Team Providers Care Electronic Coils Supervisor Name Role Phone Nick Martinez MD Primary Care Provider Encounter Details Date Type Department Care Team (Late st Contact Info) Description 10/03/2023 Telephone Hematology/Oncology at [address] [phone] Laly Larose, RN Social History Tobacco Use Types Packs/Day Years Used Date Smoking Tobacco: Former Smokeless Tobacco: Current Chew Comments:1 can per day. Plan s to quit today 02/04/21 Alcohol Use Standard Drinks/Week Comments Yes 0 (1 standard drink = 0.6 oz pur e alcohol) on occassion only [facility] Utilities Answer Date Recorded In the past 12 months has [employer], gas, oil, or water [employer] threatened to shut off services in your [...] place to sleep or slept in a [facility] (including now)? 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 Assessment: Reviewed last labs drawn with Aron Hollis APRN. Mag on 09/04 was 1.6, 09/25 was 1.5. Will continue monitoring labs and replete IV as needed. Called and spoke with sister, Hawa at number listed above. She states that overall Raffy is doing well. Taking the mag causes N/V but better since stopping. Advised that ok to continue to hold the Mag-Ox per Aron Hollis. We will continue to monitor Mag levels and replete when he is here for infusion. Agrees with this plan. I will send high-Mag food list via [employer] message. Recommendations/Plan: Hold Mag-Ox Continue to monitor Mag levels with labs, replete IV Mag, if needed Send high Mag food lists via [employer] message documented in this encounter Plan of Treatment Upcoming Encounters Date Type Department Care Team (Late st Contact Info) Description 10/17/2023 8:30 AM EDT Office Visit Hematology/Oncology at [address] [phone] Boy Tovar MD [facility] DR [place] [address] 10/17/2023 9:00 AM EDT Infusion Hematology Oncology at [address] [phone] documented as of this encounter Visit Diagnoses Not on filedocumented in this encounter Care Teams Electronic Coils Supervisor Relationship Specialty Start Date End Date Nick Martinez MD [address] [place] [address] PCP - General Internal Medicine 07/01/18 documented as of this encounter
--- OUTSIDE RECORDS SUMMARY | 2023-10-17 03:56 | XMS_ITS ---
Author Organization [facility] [place] [address] Care Team Providers Care Chip Mucker Name Role Phone Nick Martinez MD Primary Care Provider Active Problems Problem Noted Date Diagnosed Date Secondary malignant neoplasm of right adrenal gl and 07/04/2023 Brain metastasis 04/29/2023 Primary malignant neoplasm of right upper lobe o f lung 01/08/2021 Cancer Staging:Clinical stage from 02/06/2021:Stage IIIB(cT1c, cN3, cM0) - Signed by Boy Tovar MD on 02/06/2021 Current [facility] NONSMALL CELL L[facility]G CANCER - CARBOplatin / PEMEtrexed / PEMBROLIZUMAB* Plan Start Date:07/25/2023 Plan Provider:Ella Diego APRN Linked Problems Secondary malignant neoplasm of brainPrimary malignant 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 Treatment Medications Current Day (Day 1 , Cycle 5 - Planned for 10/17/2023) CARBOplatin (Paraplatin) in 150 mL infusionpembrolizumab (Keytruda) in sodium chloride 0.9% 100 mL infusionPEMEtrexed (Alimta) in sodium chloride 0.9% 100 mL infusion pembrolizumab (Keytruda) 200 mg in sodium chloride 0.9% 108 mL infusionPEMEtrexed disodium (Alimta) 1,200 mg in sodium chloride 0.9% 148 mL infusion Past Plans ADULT TREATMENT Plan Name Start Date Discontinue Date Treatment Medications Discontinue Reason Plan Provider Cycles [facility] IMMUNOTHERAPY SHARED PLAN - DURVALUMAB (1,500 MG) 04/20/19 22 08/17/2022 durvalumab (Imfinzi) infusion Therapy Complete Boy Tovar MD 12 of 12 cycles started [facility] ONC NONSMALL CELL LUNG CANCER - CARBOplatin / PACLitaxel WEEKLY / XRT 021 04/13/2021 CARBOplatin (Paraplatin) in 150 mL infusionPACLitaxeL (Taxol) in Non-PVC sodium chloride 0.9% 250 mL infusion Therapy Complete Boy Tovar MD 1 of 1 cycle started Radiation Treatments * No radiation treatments are documented for this patient in [facility]. Treatments may have been administered in another system.
--- OUTSIDE RECORDS SUMMARY | 2023-10-17 03:56 | XMS_ITS | Clinical Summary ---
Author Organization Formerly [facility] [place] [address] Care Team Providers Care Electric Container Tester Name Role Phone Nick Martinez MD Primary Care Provider [phone] Allergies Active Allergy Reactions Criticality Noted Date Comments Penicillins Nausea Only 11/28/2020 Medications Medication Sig Dispensed Refills Start Date End Date Status acetaminophen (Tylenol) 500 mg Tablet Take 1,000 mg by mouth every 6 hours as needed for Pain. Active albuteroL 90 mcg/actuation HFA Aerosol InhalerIndications:Pr imary malignant 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 Inhale 2 puffs into the lungs every 4 hours as needed for Wheezing. Use with spacer 1 each 1 10/18/2022 Active Advair HFA 115-21 mcg/actuation HFA Aerosol Inhaler Inhale 2 puffs into the lungs 2 times daily. 01/19/2023 Active omeprazole (PriLOSEC) [address] capsule Take 40 mg by mouth daily. 02/22/2023 Active LORazepam (Ativan) 1 mg tablet Take 1 tablet by mouth every 6 hours as needed for Anxiety. 15 tablet 05/25/2023 Active prochlorperazine (Compazine) 10 mg tabletIndications:Sienna aury malignant 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 Take 1 tablet by mouth every 6 hours as needed for Nausea. 30 tablet 3 07/25/2023 Active folic acid (Vitamin B9) 1 mg tabletIndications:Sienna aury malignant 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 Take 1 tablet by mouth daily. 90 tablet 3 07/25/2023 Active loratadine (Claritin) 10 mg Tablet Take 10 mg by mouth daily. Active levETIRAcetam (Keppra) 500 mg tablet TAKE ONE TABLET BY MOUTH TWICE A DAY 60 tablet 3 09/12/2023 Active magnesium oxide (Mag-Ox) 400 mg (241.3 mg magnesium) TabletIndications:Hyp omagnesemia Take 1 tablet by mouth daily. 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 01/08/2021 Cancer Staging:Clinical stage from 02/06/2021:Stage IIIB(cT1c, cN3, cM0) - Signed by Boy Tovar MD on 02/06/2021 Encounters Date Type Department Care Team Description 10/17/2023 9:00 AM EDT Infusion Hematology Oncology at [address] [phone] 10/10/2023 8:43 AM EDT - 10/10/2023 11:59 PM EDT Hospital Encounter [place] [address] Boy Tovar MD Arrived Discharge Disposition: Home 10/10/2023 8:42 AM EDT Hospital Encounter [place] [address] Byo Tovar MD Primary malignant 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; Brain metastasis; Secondary malignant neoplasm of right adrenal gland Discharge Disposition: Home 10/10/2023 Travel 10/03/2023 Telephone Hematology/Oncolog y at [address] [phone] Laly Larose RN 09/26/2023 9:00 AM EDT Infusion Hematology Oncology at [address] [phone] Secondary malignant neoplasm of brain; Primary malignant 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; Hypomagnesemia 09/26/2023 8:30 AM EDT Office Visit Hematology/Oncolog y at [address] [phone] Bisi Hollis APRN Primary malignant 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; Secondary malignant neoplasm of brain; Secondary malignant neoplasm of right adrenal gland; Hypomagnesemia 09/26/2023 Notes Only Hematology/Oncolog y at [address] [phone] Azalea Watkins, PROFESSOR OF BIOCHEMISTRY 09/26/2023 Travel 09/05/2023 9:30 AM EDT Infusion Hematology Oncology at [address] [phone] Secondary malignant neoplasm of brain; Primary malignant 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 09/05/2023 9:00 AM EDT Office Visit Hematology/Oncolog y at [address] [phone] Boy Tovar MD LaRoza, Stephanie A, APRN Primary malignant 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; Brain metastasis; Secondary malignant neoplasm of right adrenal gland 09/05/2023 Notes Only Hematology/Oncolog y at [address] [place] [phone] Azalea Watkins, PROFESSOR OF BIOCHEMISTRY 09/05/2023 Refill [place]iation [place] [address] Rosalie Samano MD 09/04/2023 Travel 09/01/2023 9:20 PM EDT Ancillary Procedure [place] [address] Bisi Hollis APRN 08/31/2023 Telephone Hematology/Oncolog y at [address] [phone] Mannie Taylor RN Follow-up 08/18/2023 10:00 AM EDT Office Visit [place] [address] Carlos Marie MD Secondary malignant neoplasm of brain 08/18/2023 Telephone Hematology [place] [address] Manjula Liu Prior Authorization 08/18/2023 Travel 08/17/2023 9:00 AM EDT Infusion Hematology Oncology at [address] [phone] Secondary malignant neoplasm of brain; Primary malignant 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 08/17/2023 8:30 AM EDT Office Visit Hematology/Oncolog y at [address] [phone] Bisi Hollis APRN Primary malignant 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; Secondary malignant neoplasm of brain; Secondary malignant neoplasm of right adrenal gland 08/17/2023 Travel 08/12/2023 11:05 AM EDT Ancillary Procedure [place] [address] Nick Martinez MD 07/29/2023 Telephone Hematology/Oncolog y at [address] [phone] Shawna Haley RN Follow-up 07/25/2023 2:00 PM EDT Infusion Hematology Oncology at [address] [phone] Secondary malignant neoplasm of brain; Primary malignant 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 07/25/2023 1:30 PM EDT Office Visit Hematology/Oncolog y at [address] [phone] Bisi Hollis APRN Primary malignant 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; Brain metastasis; Secondary malignant neoplasm of right adrenal gland 07/25/2023 Travel 07/19/2023 Travel 07/18/2023 Orders Only Hematology [place] [address] Boy Tovar MD Primary malignant 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 07/18/2023 Telephone Hematology and Oncology at [place] [phone] Sandra Brito RN 07/18/2023 Orders Only Radiation Oncology at [place] [phone] Carlos Marie MD Secondary malignant neoplasm of brain 07/17/2023 Telephone Hematology [place] [address] Shanon Moore MD 07/17/2023 Telephone Hematology [place] [address] Devi Acevedo MD from Last 3 Months Family History Medical History Relation Comments Prostate Cancer Father Lymphoma Sister Relation Status Comments Father Sister Social History Tobacco Use Types Packs/Day Years Used Date Smoking Tobacco: Former Smokeless Tobacco: Current Chew Tobacco Cessation:Ready to Q uit: Not Asked; Counseling Given: Not Answered Comments:1 can per day. Plans to quit today 02/04/21 Alcohol Use Standard Drinks/Week Comments Yes 0 (1 standard drink = 0.6 oz pur e alcohol) on occassion only [facility] Utilities Answer Date Recorded In the past 12 months has e [employer], gas, oil, or water [employer] threatened to shut off services in your [...] place to sleep or slept in a detention (including now)? No 04/29/2023 Sex and Gender Information Value Date Recorded Sex Assigned at Not on file Gender Identity Not on file Sexual Orientation Not on file Last Filed Vital Signs Vital Sign Reading Time Taken Comments Blood Pressure 140/73 09/26/2023 8:24 AM EDT Pulse 103 09/26/2023 8:24 AM EDT Temperature 36.2 ??C (97.2 ??F) 09/26/2023 8:24 AM ED T Respiratory Rate 18 09/26/2023 8:24 AM EDT Oxygen Saturation 100% 09/26/2023 8:24 AM EDT Inhaled Oxygen Concentration - - Weight 124 kg (273 lb 6.4 oz) 09/26/2023 8:24 AM EDT Height 180 cm (5' 10.87) 09/26/2023 8:24 AM EDT Body Mass Index 38.28 09/26/2023 8:24 AM EDT Plan of Treatment Upcoming Encounters Date Type Department Care Team (Late st Contact Info) Description 10/17/2023 8:30 AM EDT Office Visit Hematology/Oncology at [address] [phone] Boy Tovar MD [facility] DR H[place]AT[place] [address] 10/17/2023 9:00 AM EDT Infusion Hematology Oncology at [address] [phone] Health Maintenance Due Date Last Done Comments CT Colonography 1958 Colonoscopy 1958 Colorectal Cancer Screening 1958 FIT DNA 1958 FIT 1958 Sigmoidoscopy (10 year) with FIT yearly 1958 Sigmoidoscopy 1958 HIV screen 1976 Hepatitis C Screening 1976 Lipid Screening 1976 Tdap adult 1977 Tetanus vaccine 1977 Zoster vaccine (1 of 2) 2008 Advance Directive 2013 Covid-19 Vaccine (1 - 2022-2 4 season) 2022 AAA Screen 09/19/2023 Pneumoccocal Vaccine: 65+ (1 of 1 - PCV) 09/19/2023 Influenza (Flu) vaccine (1 o f 1 - Influenza standard series) 11/06/2023 Diabetes Screening (HgbA1C o r Glucose) 06/01/2026 06/02/2023, 05/23/2023, 04/28/2023, Additional history exists Procedures Procedure Name Priority Date/Time Associated Diagnosis Comments NM PET CT SKULL BASE TO MID-THIGH (L[facility]R) Routine 10/10/2023 10:29 AM EDT 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 Secondary malignant neoplasm of right adrenal gland POC, GLUCOSE Routine 10/10/2023 9:09 AM EDT LAB SCAN 09/26/2023 12:00 AM EDT LAB SCAN 09/05/2023 12:00 AM EDT FILM LIBRARY STORAGE ONLY CT CHEST ABDOMEN PELVIS Routine 09/01/2023 9:17 PM EDT LAB SCAN 09/01/2023 12:[address] SCAN (SCAN) 09/01/2023 12:[address] SCAN (SCAN) 08/18/2023 12:00 AM EDT LAB SCAN 08/17/2023 12:00 AM EDT FILM LIBRARY STORAGE ONLY MR HEAD Routine 08/12/2023 11:03 AM EDT LAB SCAN 07/25/2023 12:00 AM EDT COMPREHENSIVE METABOLIC PANEL STAT 06/02/2023 8:08 AM EDT Primary malignant 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 from Last 3 Months or Most Recently Relevant to Health Maintenance Results * NM PET CT Skull Base to Mid-thigh (10/10/2023 10:29 AM EDT) WORKSTATION ID [id number] RAD Anatomical Region Laterality Modality Positron Emissio [...] who have questions please contact the health nurse care manager that requested your imaging first. ? 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 C34.11, Malignant neoplasm of upper lobe, right bronchus or lung - C79.31, Secondary malignant neoplasm of brain - C79.71, Secondary malignant neoplasm of right adrenal gland TECHNIQUE: Following IV injection of 88-clvywe-1-deoxyglucose (FDG) a standard uptake of approximately 60 [...] lung cancer with abdominalpelvic adenopathy status post RADIAL DRILL PRESS SET UP OPERATOR currently on chemotherapy with palliativeintent. C34.11, Malignant neoplasm of upper lobe, right bronchus or lung -C79.31, Secondary malignant neoplasm of brain - C79.71, Secondary malignantneoplasm of right adrenal gland TECHNIQUE: Following IV injection of 87-sxyhcy-0-deoxyglucose (FDG) astandard uptake of approximately 60 minutes, [...] patients who have questions please contactthe health nurse care manager that requested your imaging first. Electronically signed by: Alfredo Jean-Baptiste MD, [facility]([phone]), at 10/12/2023 11:15 AM Boy Tovar MD IMG PET ORDERABLES * POC, GLUCOSE (10/10/2023 9:09 AM EDT) [facility] Signature Glucometer, POC 123 65 - 199 mg/dL 10/10/2023 9:09 AM EDT [facility] Comment:Supplemental ranges: <140 mg/dL before meals <180 mg/dL all other times of the day. Blood CAPILLARY BLOOD / Unknown 10/10/2023 9:09 AM EDT 10/10/2023 9:09 AM EDT Boy Tovar MD POINT OF CARE TEST O RDERABLES Performing Organization Address [facility] de Phone Number [facility] [place] [address] * Scan Doc: Lab (09/26/2023 12:00 AM EDT) Only the most recent of5 resultswithin the time period is included. Narrative 09/26/2023 12:00 AM EDT Ordered by an unspecified provider. Scanning Provider MEDIA MGR SCAN EXT O RDR/RSLT * Film Library- Storage Only CT Chest Abdomen Pelvis (09/01/2023 9:17 PM EDT) Narrative [facility] - 09/01/2023 9:17 PM EDT This exam is auto-finalizing. It's purpose is for storage only. Bisi Hollis APRN IMG FILM LIBRARY ORDERABLES Performing Organization Address [facility] Co de Phone Number [place], [place] * Scan Doc: CT Scan (09/01/2023 12:00 AM EDT) Only the most recent of2 resultswithin the time period is included. Anatomical Region Laterality Modality Other Narrative 09/01/2023 12:00 AM EDT Ordered by an unspecified provider. Scanning Provider MEDIA MGR SCAN EXT O RDR/RSLT * Film Library- Storage Only MR Head (08/12/2023 11:03 AM EDT) Narrative [facility] - 08/12/2023 11:03 AM EDT This exam is auto-finalizing. It's purpose is for storage only. Nick Martinez MD IMG FILM LIBRARY ORD ERABLES KRIS Kulkarni * (ABNORMAL) Comprehensive metabolic panel (non-fasting) (06/02/2023 8:08 AM EDT) Glucose 98 65 - 199 mg/dL [facility] Comment:Diabetes: >=200 mg/d L plus symptoms Blood Urea Nitrogen 21(H) 10 - 20 mg/dL [facility] Creatinine 1.04 0.80 - 1.50 mg/dL [facility] Sodium 137 135 - 145 mmol/L [facility] Potassium 4.3 3.5 - 5.0 mmol/L [facility] Comment: Please note: ??Patients with WBC >100,000 may have falsely elevated Potassium levels. ??For accurate Potassium quantification in these patients send serum separator tube (gold top) for subsequent determinations. ??Contact the Clinical Chemistry Laboratory if there are any questions. Chloride 99 98 - 107 mmol/L [facility] Carbon Dioxide 28 22 - 31 mmol/L [facility] Anion Gap 10 5 - 15 mmol/L [facility] Calcium 9.8 8.5 - 10.5 mg/dL [facility] Protein, Total 7.1 6.1 - 8.0 g/dL [facility] Albumin 4.3 3.2 - 5.2 g/dL [facility] Aspartate Aminotransferase 24 0 - 39 unit/L [facility] Alanine Aminotransferase 39 0 - 55 unit/L [facility] Alkaline Phosphatase 64 40 - 130 unit/L [facility] Bilirubin, Total 0.3 0.2 - 1.3 mg/dL [facility] Est Glomerular Filtration Rate 80 >=60 mL/min/1. 73 m?? [facility] Comment: This patient's estimated GFR was calculated using the 2020 CKD-EPI equation. The estimated GFR can vary from the measured GFR by up to 30% in the absence of rapidly changing kidney function. Assessment of the estimated GFR is not appropriate when creatinine concentrations are rapidly changing. For clinical situations in which a more precise estimate of GFR is necessary, consider alternative methods of GFR estimation such as a 24-hour urine creatinine clearance. Assignment of CKD stage 1-5 for patients with an eGFR near the transition point between stages may be based on clinical assessment of muscle mass and symptoms in addition to eGFR. Blood 06/02/2023 8:08 AM EDT 06/02/2023 8:12 AM EDT Narrative Resulting Agency Comment Spec In Lab Ella Diego APRN CHEMISTRY ORDERABL ES [facility] [place] [address] from Last 3 Months or Most Recently Relevant to Health Maintenance Advance Directives Documents on File Type Date Recorded Patient Cellulose Insulation Helper Expl anation Personal Cellulose Insulation Helper 06/30/2021 1:07 PM hawa friend * Attempt Cardiopulmonary Resuscitation - Inpatient (Latest Code Status on File) Date Activated Date Inactivated Comments 12/01/2020 11:10 AM 12/02/2020 4:41 AM Question Answer Comments Code Status decision made by: Patient Care Teams Electric Container Tester Relationship Specialty Start Date End Date Nick Martinez MD [address] [place] [address] PCP - General Internal Medicine 07/01/18
--- OUTSIDE RECORDS SUMMARY | 2023-10-17 03:56 | XMS_ITS | Encounter Summary ---
Author Organization [facility] [place] [address] Care Team Providers Care Nurse Discharge Name Role Phone Nick Martinez MD Primary Care Provider Reason for Visit * Treatment/Therapy Plan Authorization (Routine) - Authorized Specialty Diagnoses / Procedures Referred By Contac t Referred To Contact Hematology and Oncology Diagnoses Secondary malignant neoplasm of brain Primary malignant 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 malignant neoplasm of right adrenal gland J9271 KEYTRUDA J9305 ALIMTA J9045 CARBOPLATIN J2469 ALOXI J0185 CINVANTI J1100 DECADRON Procedures TC CARBOPLATIN, 50MG, INJECTION (PARAPLATIN) TC PEMETREXED, 10MG, INJECTION (ALIMTA) TC DEXAMETHOSONE SODIUM PHOSPHATE, 1MG, INJECTION TC APREPITANT, 1 MG, INJECTION TC PALONOSETRON HCL, 25MCG, INJECTION (ALOXI) Boy Tovar MD [address] [place] [address] DR [place] [address] Boy Tovar MD [address] [place] [address] DR [place] [address] Referral ID Status Reason Start Date Expiration Date V isits Requested Visits Authorized [id number] Authorized 06/27/2023 10/27/2023 99 99 Encounter Details Date Type Department Care Team (Late st Contact Info) Description 10/17/2023 9:00 AM EDT Infusion Hematology Oncology at [address] [phone] Social History Tobacco Use Types Packs/Day Years Used Date Smoking Tobacco: Former Smokeless Tobacco: Current Chew Comments:1 can per day. Plan s to quit today 02/04/21 Alcohol Use Standard Drinks/Week Comments Yes 0 (1 standard drink = 0.6 oz pur e alcohol) on occassion only [facility] Utilities Answer Date Recorded In the past 12 months has th e [employer], gas, oil, or water [employer] threatened to shut off services in your [...] to sleep or slept in a senior living (including now)? No 04/29/2023 Sex and Gender Information Value Date Recorded Sex Assigned at Not on file Gender Identity Not on file Sexual Orientation Not on file documented as of this encounter Plan of Treatment Upcoming Encounters Date Type Department Care Team (Francisco Contact Info) Description 10/17/2023 8:30 AM EDT Office Visit Hematology/Oncology at [address] [phone] Boy Tovar MD [facility] [address] [place] [address] documented as of this encounter Visit Diagnoses Not on filedocumented in this encounter Care Teams Nurse Discharge Relationship Specialty Start Date End Date Nick Martinez MD [address] [place] [address] PCP - General Internal Medicine 07/01/18 documented as of this encounter
--- OUTSIDE RECORDS SUMMARY | 2023-10-17 03:57 | XMS_ITS | Encounter Summary ---
Author Organization [facility] [place] [address] Care Team Providers Care Skein Washer Name Role Phone Nick Martinez MD Primary Care Provider [phone] Encounter Details Date Type Department Care Team (Late st Contact Info) Description 07/15/2023 Orders Only [place]ematology [place] [address] Boy Tovar MD [facility] DR [place] [address] Primary malignant 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; Localized swelling of right lower extremity Social History Tobacco Use Types Packs/Day Years Used Date Smoking Tobacco: Former Smokeless Tobacco: Current Chew Comments:1 can per day. Plan s to quit today 02/04/21 Alcohol Use Standard Drinks/Week Comments Yes 0 (1 standard drink = 0.6 oz pur e alcohol) on occassion only [facility] Utilities Answer Date Recorded In the past 12 months has [employer], gas, oil, or water company threatened [...] place to sleep or slept in a penitentiary (including now)? No 04/29/2023 Sex and Gender Information Value Date Recorded Sex Assigned at Not on file Gender Identity Not on file Sexual Orientation Not on file documented as of this encounter Plan of Treatment Upcoming Encounters Date Type Department Care Team (Late st Contact Info) Description 10/17/2023 8:30 AM EDT Office Visit Hematology/Oncology at [address] [phone] Boy Tovar MD [facility] DR [place] [address] 10/17/2023 9:00 AM EDT Infusion Hematology Oncology at [address] [phone] documented as of this encounter Visit Diagnoses Diagnosis Primary malignant 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 Malignant neoplasm of upper lobe, bronchus or lung Localized swelling of right lower extremity Primary malignant 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 Malignant neoplasm of upper lobe, bronchus or lung Brain metastasis 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
--- OUTSIDE RECORDS SUMMARY | 2023-10-17 03:57 | XMS_ITS | Encounter Summary ---
Author Organization [facility] [place] [address] Care Team Providers Care Bagger Meat Name Role Phone Nick Martinez MD Primary Care Provider [phone] Encounter Details Date Type Department Care Team (Latest Contact Info) Description 08/17/2023 Travel Social History Tobacco Use Types Packs/Day Years Used Date Smoking Tobacco: Former Smokeless Tobacco: Current Chew Comments:1 can per day. Plan s to quit today 02/04/21 Alcohol Use Standard Drinks/Week Comments Yes 0 (1 standard drink = 0.6 oz pur e alcohol) on occassion only [facility] Utilities Answer Date Recorded In the past [...] place to sleep or slept in a jail (including now)? No 04/29/2023 Sex and Gender Information Value Date Recorded Sex Assigned at Not on file Gender Identity Not on file Sexual Orientation Not on file documented as of this encounter Plan of Treatment Upcoming Encounters Date Type Department Care Team (Late st Contact Info) Description 10/17/2023 8:30 AM EDT Office Visit Hematology/Oncology at [address] [phone] Boy Tovar MD [facility] DR HEMATOLOGY [place] [address] 10/17/2023 9:00 AM EDT Infusion Hematology Oncology at [address] [phone] documented as of this encounter Visit Diagnoses Not on filedocumented in this encounter Care Teams Bagger Meat Relationship Specialty Start Date End Date Nick Martinez MD [address] [place] [address] PCP - General Internal Medicine 07/01/18 documented as of this encounter
--- OUTSIDE RECORDS SUMMARY | 2023-10-17 03:57 | XMS_ITS | Encounter Summary ---
Author Organization [facility] [place] [address] Care Team Providers Care Finance Executive Name Role Phone Nick Martinez MD Primary Care Provider Reason for Referral * Consultation (Routine) - Authorized Specialty Diagnoses / Procedures Referred By Mariana workman Referred To Contact Neurology Diagnoses Secondary malignant neoplasm of brain Carlos Marie MD [facility] [place] [address] Unknown None Referral ID Status Reason Start Date Expiration Date Visits Requested Visits Authorized [id number] Authorized Consult, Test & Treat Non PCP 07/18/2023 01/14/2024 1 1 Encounter Details Date Type Department Care Team (Late st Contact Info) Description 07/18/2023 Orders Only [place] [phone] Carlos Marie MD [facility] [place] [address] Secondary malignant neoplasm of brain Social History Tobacco Use Types Packs/Day Years Used Date Smoking Tobacco: Former Smokeless Tobacco: Current Chew Comments:1 can per day. Plan s to quit today 02/04/21 Alcohol Use Standard Drinks/Week Comments Yes 0 (1 standard drink = 0.6 oz pur e alcohol) on occassion only [facility] Utilities Answer Date Recorded In the past [...] 8:30 AM EDT Office Visit Hematology/Oncology at [address] [phone] Boy Tovar MD [facility] [place] [address] 10/17/2023 9:00 AM EDT Infusion Hematology Oncology at [address] [phone] Scheduled Referrals Name Type Priority Associated Diagnoses Orde r Schedule Referral to Neurology Outpatient Referral Routine Secondary malignant neoplasm of brain Ordered: 07/18/2023 documented as of this encounter Visit Diagnoses Diagnosis 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 Malignant neoplasm of upper lobe, bronchus or lung Brain metastasis 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
--- OUTSIDE RECORDS SUMMARY | 2023-10-17 03:57 | XMS_ITS | Encounter Summary ---
Author Organization [facility] [place] [address] Care Team Providers Care Transplant Immunologist Name Role Phone Nick Martinez MD Primary Care Provider [phone] Encounter Details Date Type Department Care Team (Latest Contact Info) Description 09/26/2023 Travel Social History Tobacco Use Types Packs/Day Years Used Date Smoking Tobacco: Former Smokeless Tobacco: Current Chew Comments:1 can per day. Plan s to quit today 02/04/21 Alcohol Use Standard Drinks/Week Comments Yes 0 (1 standard drink = 0.6 oz pur e alcohol) on occassion only [facility] Utilities Answer Date Recorded In the [...] place to sleep or slept in a residential (including now)? No 04/29/2023 Sex and Gender Information Value Date Recorded Sex Assigned at Not on file Gender Identity Not on file Sexual Orientation Not on file documented as of this encounter Plan of Treatment Upcoming Encounters Date Type Department Care Team (Late st Contact Info) Description 10/17/2023 8:30 AM EDT Office Visit Hematology/Oncology at [address] [phone] Boy Tovar MD [facility] DR HEMATOLOG[place] [address] 10/17/2023 9:00 AM EDT Infusion Hematology Oncology at [address] [phone] documented as of this encounter Visit Diagnoses Not on filedocumented in this encounter Care Teams Transplant Immunologist Relationship Specialty Start Date End Date Nick Martinez MD [address] [place] [address] PCP - General Internal Medicine 07/01/18 documented as of this encounter
--- OUTSIDE RECORDS SUMMARY | 2023-10-17 03:57 | XMS_ITS | Encounter Summary ---
Author Organization [facility] [place] [address] Care Team Providers Care Senior Analyst Name Role Phone Nick Martinez MD Primary Care Provider [phone] Encounter Details Date Type Department Care Team (Late st Contact Info) Description 07/11/2023 Telephone Hematology/Oncology at [address] [phone] Genoveva Herman, RN Social History Tobacco Use Types Packs/Day Years Used Date Smoking Tobacco: Former Smokeless Tobacco: Current Chew Comments:1 can per day. Plan s to quit today 02/04/21 Alcohol Use Standard Drinks/Week Comments Yes 0 (1 standard drink = 0.6 oz pur e alcohol) on occassion only [facility] Utilities Answer Date Recorded In the past 12 months has [employer], gas, oil, or water [employer] threatened to shut off services in your [...] place to sleep or slept in a long-term (including now)? No 04/29/2023 Sex and Gender Information Value Date Recorded Sex Assigned at Not on file Gender Identity Not on file Sexual Orientation Not on file documented as of this encounter Miscellaneous Notes * Telephone Encounter - Genoveva Herman RN - 07/11/2023 11:19 AM EDT Call to Raffy to assess how edema has responded to diuretics. Raffy reports it is much better andback to normal. Swells a little at night but fine during the day. His throat is a little bit better. Still sore first thing in the morning but gets better during theday. He is going to finish his course of fluconazole. He knows to call if he has any questions or concerns. * Telephone Encounter - Genoveva Herman RN - 07/11/2023 11:15 AM EDT ----- Message from Shawna Haley RN sent at 07/11/2023 7:55 AM EDT ----- Regarding: FW: Call pt ----- Message ----- From: Genoveva Herman RN Sent: 07/11/2023 12:00 AM EDT To: [facility] Nurse Subject: Call pt please call to see how his vladimir is after a week of diuresis and elevation and also haow his throat feels after a week of fluconazole. documented in this encounter Plan of Treatment Upcoming Encounters Date Type Department Care Team (Late st Contact Info) Description 10/17/2023 8:30 AM EDT Office Visit Hematology/Oncology at [address] [phone] Boy Tovar MD [facility] [address] [place] [address] 10/17/2023 9:00 AM EDT Infusion Hematology Oncology at [address] [phone] documented as of this encounter Visit Diagnoses Not on filedocumented in this encounter Care Teams Senior Analyst Relationship Specialty Start Date End Date Nick Martinez MD [address] [place] [address] PCP - General Internal Medicine 07/01/18 documented as of this encounter
--- OUTSIDE RECORDS SUMMARY | 2023-10-17 03:57 | XMS_ITS | Encounter Summary ---
Author Organization [facility] [place] [address] Care Team Providers Care Crew Dispatcher Name Role Phone Nick Martinez MD Primary Care Provider Encounter Details Date Type Department Care Team (Late st Contact Info) Description 08/17/2023 8:30 AM EDT Office Visit Hematology/Oncology at [address] [phone] Bisi Hollis APRN [address] [place] [address] DR HEMATOLOGY AND ONCOLOGY [place], [place] [id number] Primary malignant 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; Secondary malignant neoplasm of brain; Secondary malignant neoplasm of right adrenal gland Social History Tobacco Use Types Packs/Day Years Used Date Smoking Tobacco: Former Smokeless Tobacco: Current Chew Comments:1 can per day. Plan s to quit today 02/04/21 Alcohol Use Standard Drinks/Week Comments Yes 0 (1 standard drink = 0.6 oz pur e alcohol) on occassion only [facility] Utilities Answer Date Recorded In the past 12 months has [employer], gas, oil, or water company threatened to [...] on file documented as of this encounter Last Filed Vital Signs Vital Sign Reading Time Taken Comments Blood Pressure 124/80 08/17/2023 8:28 AM EDT Pulse 104 08/17/2023 8:28 AM EDT Temperature 36.4 ??C (97.5 ??F) 08/17/2023 8:28 AM ED T Respiratory Rate 18 08/17/2023 8:28 AM EDT Oxygen Saturation 99% 08/17/2023 8:28 AM EDT Inhaled Oxygen Concentration - - Weight 124.6 kg (274 lb 9.6 oz) 08/17/2023 8:28 AM EDT Height 180 cm (5' 10.87) 08/17/2023 8:28 AM EDT Body Mass Index 38.44 08/17/2023 8:28 AM EDT documented in this encounter Progress Notes * Bisi Hollis APRN - 08/17/2023 8:30 AM EDT Images from the original note were not included. Thoracic Oncology [facility] [place] [address] [phone] Raffy Latif is being seen for cT1cN3 Stage III-C non small cell lung cancer (adenocarcinoma) Assessment & Plan: Raffy Latif is a 62 y.o. . male patient with a past medical history significant for a 40+ pack year smoking history who quit 20 years ago who has had limited engagement with medical community through the years but was noted to have a right upper lobe nodule found incidentally on imaging in 2018.For reasons that are not entirely clear he did not have a full evaluation at that time but ultimately had follow-up imaging in November which demonstrated increased size and prompted a CT-guided biopsy which identified invasive adenocarcinoma but with insufficient quantity for further molecular's or analyses. Received definitive concurrent chemotherapy/RT 03.02.21- 04.28.21. Started consolidative immunotherapy with durvalumab on 04.20.21. 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 Plan: #NSCLC - Began therapy with carboplatin/pemetrexed/pembrolizumab on 07/25/23, on an every 21 day schedule. Our plan will be to restage after C2 and C4. - Labs and toxicities assessed and acceptable for initiating treatment. - RTC in 3 weeks for consideration of C3 with restaging scan prior. #hypokalemia - improving, reviewed high K foods. #Muscle cramping/spacticity - Resolved # Throat pain- improving # [employer]ST[employer]ER metastasis in the left premotor cortex- Radiation oncology and neurosurgery discussed his case and given the location resection would be subtotal due to its proximity to the motor cortex. Therefore the plan was to proceed with stereotactic radiation. Completed radiation on 05/25/2023. - Asymptomatic, remains on Keppra - Most recent MRI done 08/12/23, shows response. He has f/u with Dr. Marie tomorrow. # Tobacco use - Chewing tobacco. Not currently interested in chantix or nicotine replacement at this point. Bisi Hollis APRN 08/17/2023 Medical Oncology & Hematology [facility] CC: Serenity Larson APRN HPI/Interval History/Subjective: Last seen 07/25/2023 Raffy is here with his sister today. He had lots of nausea with C1, did have a trip to the ER where he was given some fluids. Did not have optimal use of his oral antiemetics. Has lost some weight, but no vomiting or diarrhea. He's trying to make healthier choices as well. Appetite is poor, he's also noticing taste changes. Started claritin, this has resolved his cough. Voice is also much less hoarse, though can get hoarse if he talks too much. He's been started on eye drops for dry eye as well, this was contributing toheadaches which are now improving. No fevers or signs of infection. No chest pain or swelling. No seizures. Remains on Keppra Muscle cramping has resolved. BLE edema has resolved. Social History/Support Network: Home situation: Lives with in [facility] with Velvet. 35 years. 3 children and plan to adopt another one through foster care. 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 40 Pk year hx (1-2 ppd x 25 years) Now chews toabcco. Alcohol use: Used to drink more heavily but now a monthly mixed drink Drug use: None reported Distress: 2 Likes the outdoors. service: No Family History: Mother- Dscd. 70s. No cancer Father- Dscd 80s Alzheimers. Did have prostate cancer Sister alive with lymph node cancer No known history of lung cancer Oncology Overview: Cancer Staging Primary malignant 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 Staging form: Lung, AJCC 8th Edition - Clinical stage from 02/06/2021: Stage IIIB (cT1c, cN3, cM0) - Signed by Boy Tovar MD on 02/06/2021 Presentation: Hx of lung nodules first identified in 2019 with incomplete evaluation at that time subsequently noted to be enlarging on followup imaging. Staging/PreTx Eval: 11.06.20 CT Chest 12.01.20 CT guided biopsy Pathology: 12.01.20 DIAGNOSIS A - Lung, right, core biopsy: - Invasive adenocarcinoma, acinar predominant. DISCUSSION The biopsy demonstrates a few foci of invasive adenocarcinoma in a background of abundant fibrosis and chronic inflammation. The specimen is inadequate for PD-L1 immunohistochemistry or molecular testing. Deeper levels were examined. ADDITIONAL STUDIES Immunohistochemistry Studies: Formalin-fixed, paraffin-embedded tissue sections are studied using the polymer technique with appropriate positive and negative controls. These IHC studies provide the pathologist with adjunctive diagnostic information. Antibody specificity has been verified by testing antibodies on a series of in-house tissues with known immunohistochemical performance characteristics. The clinical interpretation of any antibody positive staining or its absence is evaluated within the context of clinical presentation, morphology, histopathological criteria and other diagnostic tests. Block Antibody Result (Positive/ Molecular Data: NA Treatment Course: 03.02.21 - 04.08.21 concurrent carbo/paclitaxel and XRT 04.20.21 Started consolidative durvalumab 04.15.[address] chest shows no evidence of disease recurrence. 07.16.2022 CT chest shows no obvious evidence of disease recurrence. IMPRESSION 1. Stable posttreatment changes centered in the right hilum. 2. Increase in tree-in-bud nodularity in the right upper lobe, most consistent with infectious or inflammatory pneumonitis. 04.26.23 Recurrence presenting with extremity weakness and seizure. 04.29.23 PET scan COMPARISON: CT chest 02/04/2023, 02/11/2021; PET/CT 01/19/2021 FINDINGS: HEAD/NECK: Normal activity in all soft tissue regions of the neck and visualized lower head. No adenopathy. CHEST: Normal activity in all soft tissue regions. No adenopathy. Stable postradiation changes in the right middle, lower and upper lobes and right hilar/perihilar region. Unchanged CT visualized sub-5 mm apical left upper lobe nodule compared to CT chest 02/11/2021. Small hiatal hernia. Aortic and coronary artery calcifications. ABDOMEN/PELVIS: FDG avid right adrenal nodule thickening (centered on axial image 138), new from prior PET/CT of 01/19/2021. Small FDG avid aortocaval and left periaortic adenopathy (axial images 163-171 and 175-180), new from prior PET/CT. SKELETON/EXTREMITIES: Decreased marrow activity in the upper thoracic spine is consistent with post radiation change. No suspicious osseous lesion. IMPRESSION 1. FDG avid nodular thickening of the right adrenal gland is new from prior PET/CT and consistent with adrenal metastasis. 2. New small FDG avid antwon metastasis in the abdominal aortocaval and periaortic regions. 3. No evidence of recurrent disease in the chest. 4. Please note that the brain was not included in the imaged [id number] on the current study. 05.25.[address] c/a/p 07.25.23 C1 carboplatin/pemetrexed/pembrolizumab 08.17.23 C2 carbo/pem/pem 12/14/2021 1:48 PM 01/11/2022 2:07 PM 02/08/2022 1:49 PM 07/25/2023 2:37 PM 07/25/2023 2:57 PM 07/25/2023 3:38 PM 07/25/2023 3:52 PM ONCBCN ONCOLOGY (AMB) Day, Cycle Day 1, Cycle 10 Day 1, Cycle 11 Day 1, Cycle 12 Day 1, Cycle 1 CARBOplatin (Paraplatin) IV 631 mg cyanocobalamin (Vitamin B-12) 1,000 mcg/mL SubQ 1,000 mcg durvalumab 50 mg/mL (Imfinzi) IV 1,500 mg 1,500 mg 1,500 mg pembrolizumab 25 mg/mL (Keytruda) IV 200 mg PEMEtrexed disodium (Alimta) IV 500 mg/m2/dose = 1,200 mg Patient Active Problem List Diagnosis Date Noted Secondary malignant neoplasm of right adrenal gland 07/04/2023 Brain metastasis 04/29/2023 Primary malignant 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 01/08/2021 Allergies Allergen Reactions Penicillins Nausea Only I reviewed the problem list, allergies, medications, past medical history, social history and family history within the EPIC encounter. Pertinent details are noted above. Pertinent positives and negative from the Review of Systems are as summarized above in the HPI. Physical Exam: Wt Readings from Last 3 Encounters: 08/17/23 124.6 kg (274 lb 9.6 oz) 07/25/23 127.2 kg (280 lb 6.4 oz) 07/04/23 130 kg (286 lb 9.6 oz) Temp Readings from Last 3 Encounters: 08/17/23 36.4 ??C (97.5 ??F) (Temporal) 07/25/23 35.5 ??C (95.9 ??F) (Temporal) 07/04/23 36.4 ??C (97.5 ??F) (Temporal) BP Readings from Last 3 Encounters: 08/17/23 124/80 07/25/23 134/73 07/04/23 125/74 Pulse Readings from Last 3 Encounters: 08/17/23 (!) 104 07/25/23 (!) 108 07/04/23 (!) 105 Body surface area is 2.5 meters squared. Wt Readings from Last 3 Encounters: 08/17/23 124.6 kg (274 lb 9.6 oz) 07/25/23 127.2 kg (280 lb 6.4 oz) 07/04/23 130 kg (286 lb 9.6 oz) KPS Score ECOG Grade Definition 90-100 0 Fully active, able to carry on all pre-disease performance without restriction X 70-80 1 Restricted in physically strenuous activity but ambulatory and able to carry out work of a light or sedentary nature, e.g., light house work, office work 50-60 2 Ambulatory and capable of all selfcare but unable to carry out any work activities; up and about more than 50% of waking hours 30-40 3 Capable of only limited selfcare; confined to bed or chair more than 50% of waking hours 10-20 4 Completely disabled; cannot carry on any selfcare; totally confined to bed or chair BP 124/80 (Patient Position: Sitting) Pulse (!) 104 Temp 36.4 ??C (97.5 ??F) (Temporal) Resp 18 Ht 180 cm (5' 10.87) Wt 124.6 kg (274 lb 9.6 oz) SpO2 99% BMI 38.44 kg/m?? Physical Exam Constitutional: General: Not in acute distress. Appearance: Normal appearance. Normal weight. Not ill-appearing, toxic-appearing or diaphoretic. HENT: Head: Atraumatic. No oral thrush seen Eyes: General: No scleral icterus. Right eye: No discharge. Left eye: No discharge. Conjunctiva/sclera: Conjunctivae normal. Pulmonary: Effort: Pulmonary effort is normal. Review of Laboratory Data: 08/17/23 WBC 4.63, Hgb 11.9, HCT 34.2, platelets 303,000, ANC 2970, NA 141, K+ 3.4, CL 102, CO2 29.9, BUN 13, creatinine 1.4, glucose 112, Ca 9.2, Mg 1.6, t bili 0.5, AST 37, ALT 50, alk phos 78, t protein 7.5, Albumin 3.7, TSH 5.80, Free T4 0.91 07/25/23 White blood cells 8.38 hemoglobin 11.6 hematocrit 33.9 platelets 290,000 absolute neutrophils 6230 sodium 141 potassium 3.2 chloride 103 CO2 30.0 BUN 19 creatinine 1.3 glucose 106 calcium 8.7 mag 1.9T. bili 0.5 AST 24 ALT 42 alk phos 67 total protein 6.9 albumin 3.4 TSH 2.93 Free T40.8 07/04/23 White blood cell count 7.29 hemoglobin 11.9 platelet count 163,000 absolute neutrophil count 5.69 Sodium 144 potassium 4.0 chloride 106 BUN 18 creatinine 1.14 up from 1.0 glucose 119 calcium 8.8 magnesium 1.9 total bilirubin 0.5 AST slightly elevated at 38 from 31 ALT slightly elevated at 68 from61 alk phos 59 total protein 6.9 albumin 3.4 TSH 2.01 Free T40.82 Review of Imaging Data: 08.12.23 MRI Brain 02.04.23 CT Chest IMPRESSION 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 Stable thickening of the right adrenal gland. No new findings. 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 No new lung nodule or thoracic lymphadenopathy. Increased thickening of the right adrenal gland is nonspecific, reassessment on follow-up imaging is recommended. 07.16.2022 CT Chest 1. Stable posttreatment changes centered in the right hilum. 2. Increase in tree-in-bud nodularity in the right upper lobe, most consistent with infectious or inflammatory pneumonitis. Review of Pathology Data: --Lymph node: 4L (EBUS-guided FNA) - A few clusters of highly atypical epithelial cells, compatiblewith a non-small cell carcinoma, present. --Lymph node: station 7 (EBUS-guided FNA) - A rare cluster of highly atypical epithelial cells, compatible with a non-small cell carcinoma, present. --Lymph node, 4R (EBUS-guided FNA): Lymph node: 11R (EBUS-guided FNA) - Compatible with metastatic adenocarcinoma of lung origin. Extremely scant cellularity specimen. Rare minute clusters of atypical epithelial cells, highly suspicious for malignancy/ carcinoma. Tumor Proportion Score (TPS): % Expression: 40-60% documented in this encounter Plan of Treatment Upcoming Encounters Date Type Department Care Team (Late st Contact Info) Description 10/17/2023 8:30 AM EDT Office Visit Hematology/Oncology at [address] [phone] Boy Tovar MD [facility] DR HEMAT[place]Y [place] [address] 10/17/2023 9:00 AM EDT Infusion Hematology Oncology at [address] [phone] documented as of this encounter Visit Diagnoses Diagnosis Primary malignant 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 Malignant neoplasm of upper lobe, bronchus or lung Secondary malignant neoplasm of brain Secondary [...] gland documented in this encounter Care Teams Crew Dispatcher Relationship Specialty Start Date End Date Nick Martinez MD [address] [place] [address] PCP - General Internal Medicine 07/01/18 documented as of this encounter
--- OUTSIDE RECORDS SUMMARY | 2023-10-17 03:57 | XMS_ITS | Encounter Summary ---
Author Organization [facility] [place] [address] Care Team Providers Care Data Entry Coordinator Name Role Phone Nick Martinez MD Primary Care Provider [phone] Reason for Visit * Treatment/Therapy Plan Authorization [...] HCL, 25MCG, INJECTION (ALOXI) Boy Tovar MD [address] [place] [address] DR HEMATOLOGY [place] [address] Boy Tovar MD [address] [place] [address] DR HEMATOLOGY [place] [address] Referral ID Status Reason Start Date Expiration Date V isits Requested Visits Authorized [id number] Authorized 06/27/2023 10/27/2023 99 99 Encounter Details Date Type Department Care Team (Late st Contact Info) Description 07/04/2023 10:30 AM EDT Infusion Hematology Oncology at [address] [phone] Social History Tobacco Use Types Packs/Day Years Used Date Smoking Tobacco: Former Smokeless Tobacco: Current Chew Comments:1 can per day. Plan s to quit today 02/04/21 Alcohol Use Standard Drinks/Week Comments Yes 0 (1 standard drink = 0.6 oz pur e alcohol) on occassion only [facility] Utilities Answer Date Recorded In the past 12 months has th e [employer], gas, oil, or water [employer] threatened to shut off services in your [...] Encounters Date Type Department Care Team (Francisco rico Contact Info) Description 10/17/2023 8:30 AM EDT Office Visit Hematology/Oncology at [address] [phone] Boy Tovar MD [facility] DR HEMATOLOGY [place] [address] 10/17/2023 9:00 AM EDT Infusion Hematology Oncology at [address] [phone] documented as of this encounter Visit Diagnoses Not on filedocumented in this encounter Care Teams Data Entry Coordinator Relationship Specialty Start Date End Date Nick Martinez MD [address] [place] [address] PCP - General Internal Medicine 07/01/18 documented as of this encounter
--- OUTSIDE RECORDS SUMMARY | 2023-10-17 03:57 | XMS_ITS | Encounter Summary ---
Author Organization [facility] [place] [address] Care Team Providers Care Blood Splatter Analyst Name Role Phone Nick Martinez MD Primary Care Provider Reason for Referral * Diagnostic Test (Routine) - New Request Specialty Diagnoses / Procedures Referred By Mariana workman Referred To Contact Radiology Diagnoses Primary malignant 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 malignant neoplasm of right adrenal gland Procedures CT Chest Abdomen Pelvis w Contrast (Generic) Bisi Hollis APRN [address] [place] [address] [place] [address] Referral ID Status Reason Start Date Expiration Date Visits Requested Visits Authorized [id number] New Request Specialty Service Requested 07/25/2023 01/24/2025 1 1 Encounter Details Date Type Department Care Team (Late st Contact Info) Description 07/25/2023 1:30 PM EDT Office Visit Hematology/Oncology at [address] [phone] Bisi Hollis APRN [address] [place] [address] [place] [address] Primary malignant 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; Brain metastasis; Secondary malignant neoplasm of right adrenal gland Social History Tobacco Use Types Packs/Day Years Used Date Smoking Tobacco: Former Smokeless Tobacco: Current Chew Comments:1 can per day. Plan s to quit today 02/04/21 Alcohol Use Standard Drinks/Week Comments Yes 0 (1 standard drink = 0.6 oz pur e alcohol) on occassion only [facility] Utilities Answer Date Recorded In [...] place to sleep or slept in a mcc (including now)? No 04/29/2023 Sex and Gender Information Value Date Recorded Sex Assigned at Not on file Gender Identity Not on file Sexual Orientation Not on file documented as of this encounter Last Filed Vital Signs Vital Sign Reading Time Taken Comments Blood Pressure 134/73 07/25/2023 1:17 PM EDT Pulse 108 07/25/2023 1:17 PM EDT Temperature 35.5 ??C (95.9 ??F) 07/25/2023 1:17 PM ED T Respiratory Rate 18 07/25/2023 1:17 PM EDT Oxygen Saturation 98% 07/25/2023 1:17 PM EDT Inhaled Oxygen Concentration - - Weight 127.2 kg (280 lb 6.4 oz) 07/25/2023 1:17 PM EDT Height 180 cm (5' 10.87) 07/25/2023 1:17 PM EDT Body Mass Index 39.26 07/25/2023 1:17 PM EDT documented in this encounter Progress Notes * Bisi Hollis APRN - 07/25/2023 1:30 PM EDT Images from the original note were not included. Thoracic Oncology [facility] [address] [phone] Raffy Latif is being seen for cT1cN3 [...] metastasis in the left premotor cortex. Plan: Raffy was seen today for increased lower extremity edema, muscle cramping and worsening neurological symptoms. #Lower Extremity Edema- Duplex US 06/01 no evidence of DVT. Likely related to steroids. - much improved, will stop lasix #hypokalemia - likely 2ndary to lasix, will re-eval on next visit, no clinical symptoms. 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 Therefore the plan was to proceed with stereotactic radiation. Completed radiation on 05/25/2023. - Now completed Dex, asymptomatic, remains on Keppra - Srini be getting MRI with them in #NSCLC - Recent CT scan with stable disease. We will initiate therapy with carboplatin/pemetrexed/pembrolizumab today, on an every 21 day schedule. Our plan will be to restage after C2 and C4. - Labs and toxicities assessed and acceptable for initiating treatment. Begin C1 carbo/pem/pem today. - Folic acid prescription sent in, as well as compazine. - RTC in 3 weeks for consideration of C2. We will plan to restage after that cycle, ordered today. # Tobacco use - Chantix has been prescribed, he did pick it up but has not started. Bisi Hollis, CLAM BED LABORER 07/25/2023 Medical Oncology & Hematology [facility] CC: Serenity Larson CLAM BED LABORER HPI/Interval History/Subjective: Last seen 07/04/2023 Throat is getting better, voice still sounds hoarse, still coughing, improved but coughing daily. No COVID test No fevers. No seizures. Remains on Keppra Now tapered of Dex completely and feeling well. Did get a short course of prednisone last week, presumes he has COPD and is going to discuss with his PCP. Muscle cramping has resolved. BLE edema has resolved. No other new symptoms to report today, anxious to start therapy. Social History/Support Network: Home situation: Lives with in [facility] with Velvet. 35 years. 3 children and plan to adopt another one through foster care. 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 38 Pk [...] brain was not included in the imaged [id number] on the current study. 05.25.[address] c/a/p 07.25.23 C1 carboplatin/pemetrexed/pembrolizumab 08/10/2021 3:38 PM 09/14/2021 3:06 PM 10/12/2021 3:12 PM 11/16/2021 3:34 PM 12/14/2021 1:48 PM 01/11/2022 2:07 PM 02/08/2022 1:49 PM ONCBCN ONCOLOGY (AMB) Day, Cycle Day 1, Cycle 6 Day 1, Cycle 7 Day 1, Cycle 8 Day 1, Cycle 9 Day 1, Cycle 10 Day 1, Cycle11 Day 1, Cycle 12 durvalumab 50 mg/mL (Imfinzi) IV 1,500 mg 1,500 mg 1,500 mg 1,500 mg 1,500 mg 1,500 mg 1,500 mg Patient Active Problem List Diagnosis Date [...] Exam: Wt Readings from Last 3 Encounters: 07/25/23 127.2 kg (280 lb 6.4 oz) 07/04/23 130 kg (286 lb 9.6 oz) 06/02/23 124.6 kg (274 lb 11.1 oz) Temp Readings from Last 3 Encounters: 07/25/23 35.5 ??C (95.9 ??F) (Temporal) 07/04/23 36.4 ??C (97.5 ??F) (Temporal) 06/02/23 36.6 ??C (97.9 ??F) (Temporal) BP Readings from Last 3 Encounters: 07/25/23 134/73 07/04/23 125/74 06/02/23 142/87 Pulse Readings from Last 3 Encounters: 07/25/23 (!) 108 07/04/23 (!) 105 06/02/23 94 Body surface area is 2.52 meters squared. Wt Readings from Last 3 Encounters: 07/25/23 127.2 kg (280 lb 6.4 oz) 07/04/23 130 kg (286 lb 9.6 oz) 06/02/23 124.6 kg (274 lb 11.1 oz) KPS Score ECOG Grade Definition 90-100 [...] totally confined to bed or chair BP 134/73 (Patient Position: Sitting) Pulse (!) 108 Temp 35.5 ??C (95.9 ??F) (Temporal) Resp 18 Ht 180 cm (5' 10) Wt 127.2 kg (280 lb 6.4 oz) SpO2 98% BMI 39.26 kg/m?? Physical Exam Constitutional: General: Not in acute distress. Appearance: Normal appearance. Normal weight. Not ill-appearing, toxic-appearing or diaphoretic. HENT: Head: Atraumatic. No oral thrush seen Eyes: General: No scleral icterus. Right eye: No discharge. Left eye: No discharge. Conjunctiva/sclera: Conjunctivae normal. Pulmonary: Effort: Pulmonary effort is normal. Review of Laboratory Data: 07/25/23 White blood cells 8.38 hemoglobin 11.6 [...] 2.01 Free T40.82 Review of Imaging Data: 02.04.23 CT Chest IMPRESSION Stable postradiation fibrosis [...] consistent with infectious or inflammatory pneumonitis. Review o-Pathology: --Lymph node: 4L (EBUS-guided FNA) - A [...] 8:30 AM EDT Office Visit Hematology/Oncology at [address] [phone] Boy Tovar MD [facility] [address] [place] [address] 10/17/2023 9:00 AM EDT Infusion Hematology Oncology at [address] [phone] Scheduled Orders Name Type Priority Associated Diagnoses Orde r Schedule CT Chest Abdomen Pelvis w Contrast (Generic) Imaging Routine Primary malignant 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 malignant neoplasm of right adrenal gland Expected: 08/29/2023 (Approximate), Expires: 11/25/2023 documented as of this encounter Visit Diagnoses [...] gland documented in this encounter Care Teams Blood Splatter Analyst Relationship Specialty Start Date End Date Nick Martinez MD [address] [place] [address] PCP - General Internal Medicine 07/01/18 documented as of this encounter
--- OUTSIDE RECORDS SUMMARY | 2023-10-17 03:57 | XMS_ITS | Encounter Summary ---
Author Organization [facility] [place] [address] Care Team Providers Care Clinical Analyst Name Role Phone Nick Martinez MD Primary Care Provider [phone] Encounter Details Date Type Department Care Team (Late st Contact Info) Description 09/26/2023 8:30 AM EDT Office Visit Hematology/Oncology at [address] [phone] Bisi Hollis APRN [address] [place] [address] [place] [address] Primary malignant 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; Secondary malignant neoplasm of brain; Secondary malignant neoplasm of right adrenal gland; Hypomagnesemia Social History Tobacco Use Types Packs/Day Years Used Date Smoking Tobacco: Former Smokeless Tobacco: Current Chew Comments:1 can per day. Plan s to quit today 02/04/21 Alcohol Use Standard Drinks/Week Comments Yes 0 (1 standard drink = 0.6 oz pur e alcohol) on occassion only [facility] Utilities Answer Date Recorded In the [...] place to sleep or slept in a prison (including now)? No 04/29/2023 Sex and Gender [...] Mass Index 38.28 09/26/2023 8:24 AM EDT documented in this encounter Progress Notes * Bisi Hollis APRN - 09/26/2023 8:30 AM EDT Images from the original note were not included. Thoracic Oncology [facility] [place] [address] [phone] Raffy Latif is being seen for cT1cN3 Stage III-C non small cell lung cancer (adenocarcinoma) Assessment & Plan: Raffy Latif is a 63 y.o. . male patient with a past [...] cortex. Plan: #NSCLC - Began therapy with palliative intent carboplatin/pemetrexed/pembrolizumab on 07/25/23, on an every [address] scan after 2 cycles with a response in terms of abdominal adenopathy - adrenal lesion unchanged. New HAMMAD nodule is small and we'll follow. - Labs and toxicities assessed and acceptable for initiating treatment. - RTC in 3 weeks with PET prior. Consider switching to maintenance therapy at that time. 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 Therefore the plan was to proceed with stereotactic radiation. Completed radiation on 05/25/2023. - Asymptomatic, remains on Keppra - Most recent MRI done 08/12/23, shows response. - Plan for rad onc for followup in November - I am not overtly concerned that the tenderness to palpation behind his L ear is related to cancer, but will notify Dr. Marie as just an FYI. On exam, there are no palpable nodes or masses. No visible skin changes. - Begin MagOxide replacement at home # FEN - Hypomag- Will replete IV at time of infusion #Muscle cramping/spacticity - Resolved # Tobacco use - Chewing tobacco. Not currently interested in chantix or nicotine replacement at this point. Bisi RiceJf Hollis, QUALITY INSPECTOR 09/26/2023 Medical Oncology & Hematology [facility] [place] [facility] CC: Serenity Neo MYERS HPI/Interval History/Subjective: Last seen 09/05/2023 Raffy is here by himself today, he's feeling Sore to the touch in the area behind his L ear. He wonders if he's having some tension/neck issues but he feels nervous because this is the same side as his brain mass/radiation. This has been going on for about a week, and is somewhat better today thanit has been. He has not taking any medication for this. No changes in vision, strength, or balance/gait. No dizziness. Feeling fair otherwise. Is having some taste changes, appetite comes and goes. Still struggled withnausea, did not need hydration in the ER. Staying on the claritin No new rashes, breathing and cough are about the same (needs to rest after stairs), or diarrhea. Does have some constipation for a couple days after the treatment. No fevers or signs of infection. No chest pain or swelling. No seizures. Remains on Keppra Muscle cramping has resolved. BLE edema has resolved. Social History/Support Network: Home situation: Lives with in [facility] with Velvet. 35 years. 3 children and plan to adopt another one through foster care. 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 38 Pk [...] be enlarging on followup imaging. Staging/PreTx Eval: 9.2.21 CT Chest 12.01.20 CT guided biopsy Pathology: [...] brain was not included in the imaged [id number] on the current study. 05.25.[address] c/a/p 07.25.23 C1 carboplatin/pemetrexed/pembrolizumab 08.17.23 C2 carbo/pem/pem .03.30 C3 Carbo/pem/pem 09.26.23 C4 carbo/pem/pem 07/25/2023 3:52 PM 08/17/2023 9:59 AM 08/17/2023 10:42 AM 08/17/2023 11:13 AM 09/05/2023 10:44 AM 09/05/2023 11:20 AM 09/05/2023 11:51 AM ONCBCN ONCOLOGY (AMB) Day, Cycle Day 1, Cycle 2 Day 1, Cycle 3 CARBOplatin (Paraplatin) IV 631 mg 631 mg 631 mg pembrolizumab 25 mg/mL (Keytruda) IV 200 mg 200 mg PEMEtrexed disodium (Alimta) IV 500 mg/m2/dose = 1,200 mg 500 mg/m2/dose = 1,200 mg Patient Active [...] Exam: Wt Readings from Last 3 Encounters: 09/26/23 124 kg (273 lb 6.4 oz) 09/05/23 124 kg (273 lb 6.4 oz) 08/18/23 124.6 kg (274 lb 11.1 oz) Temp Readings from Last 3 Encounters: 09/26/23 36.2 ??C (97.2 ??F) (Temporal) 09/05/23 36.5 ??C (97.7 ??F) (Temporal) 08/18/23 36.5 ??C (97.7 ??F) (Temporal) BP Readings from Last 3 Encounters: 09/26/23 140/73 09/05/23 97/79 08/18/23 127/68 Pulse Readings from Last 3 Encounters: 09/26/23 (!) 103 09/05/23 96 08/18/23 96 Body surface area is 2.49 meters squared. Wt Readings from Last 3 Encounters: 09/26/23 124 kg (273 lb 6.4 oz) 09/05/23 124 kg (273 lb 6.4 oz) 08/18/23 124.6 kg (274 lb 11.1 oz) KPS [...] totally confined to bed or chair BP 140/73 (Patient Position: Sitting) Pulse (!) 103 Temp 36.2 ??C (97.2 ??F) (Temporal) Resp 18 Ht 180 cm (5' 10.87) Wt 124 kg (273 lb 6.4 oz) SpO2 100% BMI 38.28 kg/m?? Physical Exam Constitutional: General: Not in acute distress. Appearance: Normal appearance. Normal weight. Not ill-appearing, toxic-appearing or diaphoretic. HENT: Head: Atraumatic. No oral thrush seen Eyes: General: No scleral icterus. Right eye: No discharge. Left eye: No discharge. Conjunctiva/sclera: Conjunctivae normal. Pulmonary: Effort: Pulmonary effort is normal. Review of Laboratory Data: 7 WBC 3.27, H/H 11.1/32.4, plt 214,000, ANC 2190, Na 143, K 3.5, Cl 104, CO2 30.4, BUN 10, Creat 1.2,glucose 116, Ca 9.0, Mag 1.5, t bili 0.4, AST 22, ALT 36, alk phos 74, t protein 7.5, albumin 3.5, TSH 4.73, Free T4 0.95 7.. White blood cell count 3.61 hemoglobin 11.9 platelet count 201,000 absolute neutrophil count 2.30 Sodium 142 potassium 3.7 chloride 104 BUN 10 creatinine 1.3 down from 1.4 glucose 112 calcium 9.2 magnesium low at 1.6 which is what it was before total bilirubin 0.4 AST 32 ALT 43 alk phos 77 albumin 3.8 from 3.7 TSH slightly elevated at 6.67 from 5.80 Free T40.86 Which is within normal limits butslightly lower than it was 3 weeks ago when it was 0.91 08/17/23 WBC 4.63, Hgb 11.9, HCT 34.2, [...] 2.01 Free T40.82 Review of Imaging Data: 09.01.23 CT CAP [address] Chest IMPRESSION Stable postradiation fibrosis in [...] 8:30 AM EDT Office Visit Hematology/Oncology at [address] [phone] Boy Tovar MD [facility] DR HEMATOLOGY [place] [address] 10/17/2023 9:00 AM EDT Infusion Hematology Oncology at [address] [phone] documented as of this encounter Visit Diagnoses Diagnosis Primary malignant 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 Malignant neoplasm of upper lobe, bronchus or lung 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
--- OUTSIDE RECORDS SUMMARY | 2023-10-17 03:57 | XMS_ITS | Encounter Summary ---
Author Organization [facility] [place] [address] Care Team Providers Care Perforator Typist Name Role Phone Nick Martinez MD Primary Care Provider [phone] Encounter Details Date Type Department Care Team (Latest Contact Info) Description 09/04/2023 Travel Social History Tobacco Use Types Packs/Day Years Used Date Smoking Tobacco: Former Smokeless Tobacco: Current Chew Comments:1 can per day. Plan s to quit today 02/04/21 Alcohol Use Standard Drinks/Week Comments Yes 0 (1 standard drink = 0.6 oz pur e alcohol) on occassion only [facility] Utilities Answer Date Recorded In the [...] 8:30 AM EDT Office Visit Hematology/Oncology at [address] [phone] Boy Tovar MD [facility] [place] [address] 10/17/2023 9:00 AM EDT Infusion Hematology Oncology at [address] [phone] documented as of this encounter Visit Diagnoses Not on filedocumented in this encounter Care Teams Perforator Typist Relationship Specialty Start Date End Date Nick Martinez MD [address] [place] [address] PCP - General Internal Medicine 07/01/18 documented as of this encounter
--- OUTSIDE RECORDS SUMMARY | 2023-10-17 03:57 | XMS_ITS | Encounter Summary ---
Author Organization [facility] [place] [address] Care Team Providers Care Supervisory Aide Name Role Phone Nick Martinez MD Primary Care Provider [phone] Encounter Details Date Type Department Care Team (Late st Contact Info) Description 07/17/2023 Telephone Hematology [place] [phone] Devi Acevedo MD [facility] DR HEMATOLOGY/[place] [address] Social History Tobacco Use Types Packs/Day Years Used Date Smoking Tobacco: Former Smokeless Tobacco: Current Chew Comments:1 can per day. Plan s to quit today 02/04/21 Alcohol Use Standard Drinks/Week Comments Yes 0 (1 standard drink = 0.6 oz pur e alcohol) on occassion only [facility] Utilities Answer Date Recorded In the past 12 months has [employer] electric, gas, oil, or water company threatened [...] on file documented as of this encounter Progress Notes * Devi Acevedo MD - 07/17/2023 7:20 AM EDT I received a page from pt's sister about Raffy Latif who had been having productive cough, and difficulty breathing. C/f possible pneumonia, and pt's sister inquired the recent CT scan result as the patient had been resisting to get checked or be treated for infection due to possible misconception that his symptomsmight suggest cancer progression instead. The external CT scan was read by me and compared to the one in 05/2023 did not show extensive disease burden. I explained to pt's sister that radiology does official read and has specific RECIST criteria in restaging CT scans which is out of my realm/scope. But I agree with pt's sister that pt should been seen by a provider, and likely be treated empirically prior to his scheduled chemo. Pt's sister verbalized understanding. She will encourage pt to seek medical attention. Devi Acevedo MD Hematology/ Medical Oncology Fellow [facility] Page #[phone] documented in this encounter Plan of Treatment Upcoming Encounters Date Type Department Care Team (Late st Contact Info) Description 10/17/2023 8:30 AM EDT Office Visit Hematology/Oncology at [address] [phone] Boy Tovar MD [facility] [address] [place] [address] 10/17/2023 9:00 AM EDT Infusion Hematology Oncology at [address] [phone] documented as of this encounter Visit Diagnoses Not on filedocumented in this encounter Care Teams Supervisory Aide Relationship Specialty Start Date End Date Nick Martinez MD [address] [place] [address] PCP - General Internal Medicine 07/01/18 documented as of this encounter
--- OUTSIDE RECORDS SUMMARY | 2023-10-17 03:57 | XMS_ITS | Encounter Summary ---
Author Organization [facility] [place] [address] Care Team Providers Care Professor Of English Name Role Phone Nick Martinez MD Primary Care Provider Encounter Details Date Type Department Care Team (Late st Contact Info) Description 09/01/2023 9:20 PM EDT Ancillary Procedure [place] [phone] Bisi Hollis APRN [address] [place] [address] DR HEMATOLOGY AND ONCOLOGY [place], [place] [id number] Social History Tobacco Use Types Packs/Day Years Used Date Smoking Tobacco: Former Smokeless Tobacco: Current Chew Comments:1 can per day. Plan s to quit today 02/04/21 Alcohol Use Standard Drinks/Week Comments Yes 0 (1 standard drink = 0.6 oz pur e alcohol) on occassion only [facility] Utilities Answer Date Recorded In the past 12 months has [employer] electric, gas, oil, or water company threatened [...] place to sleep or slept in a custodial (including now)? No 04/29/2023 Sex and Gender Information Value Date Recorded Sex Assigned at Not on file Gender Identity Not on file Sexual Orientation Not on file documented as of this encounter Plan of Treatment Upcoming Encounters Date Type Department Care Team (Late st Contact Info) Description 10/17/2023 8:30 AM EDT Office Visit Hematology/Oncology at [address] [phone] Boy Tovar MD [facility] DR [place] [address] 10/17/2023 9:00 AM EDT Infusion Hematology Oncology at [address] [phone] documented as of this encounter Procedures Procedure Name Priority Date/Time Associated Diagnosis Comments FILM LIBRARY STORAGE ONLY CT CHEST ABDOMEN PELVIS Routine 09/01/2023 9:17 PM EDT documented in this encounter Results * Film Library- Storage Only CT Chest Abdomen Pelvis (09/01/2023 9:17 PM EDT) Narrative [facility] - 09/01/2023 9:17 PM EDT This exam is auto-finalizing. It's purpose is for storage only. Bisi Hollis [facility] FILM LIBRARY ORDERABLES [place], [place] documented in this encounter Visit Diagnoses Not on filedocumented in this encounter Care Teams Professor Of English Relationship Specialty Start Date End Date Nick Martinez MD [address] [place] [address] PCP - General Internal Medicine 07/01/18 documented as of this encounter
--- OUTSIDE RECORDS SUMMARY | 2023-10-17 03:57 | XMS_ITS | Encounter Summary ---
Author Organization [facility] [place] [address] Care Team Providers Care Dough Mixer Helper Name Role Phone Nick Martinez MD Primary Care Provider [phone] Reason for Visit * Reason Onset Date Comments Follow-up 07/29/2023 Encounter Details Date Type Department Care Team (Late st Contact Info) Description 07/29/2023 Telephone Hematology/Oncology at [address] [phone] Shawna Haley RN Follow-up Social History Tobacco Use Types Packs/Day Years Used Date Smoking Tobacco: Former Smokeless Tobacco: Current Chew Comments:1 can per day. Plan s to quit today 02/04/21 Alcohol Use Standard Drinks/Week Comments Yes 0 (1 standard drink = 0.6 oz pur e alcohol) on occassion only [employer] Utilities Answer Date Recorded In the past 12 months has [employer], gas, oil, or water [employer] threatened to shut off services in your [...] place to sleep or slept in a alf (including now)? No 04/29/2023 Sex and Gender Information Value Date Recorded Sex Assigned at Not on file Gender Identity Not on file Sexual Orientation Not on file documented as of this encounter Miscellaneous Notes * Telephone Encounter - Shawna Haley RN - 07/29/2023 8:34 AM EDT Post chemo call Placed call to patient to assess tolerance of first time chemotherapy treatment. Regimen received: carbo/alimata/pembro Date of treatment: 07/25/23 Assessment: Symptom Present (yes[y]/no[n]/ stable[s] from baseline) Additional information/Assessment GI Nausea y Vomiting n Nausea medication y compazine with effect Tolerating diet Some what Maintaining fluid intake (indicate volume) Some what encouraged him to drink 64 oz a day of fluid not containing caffeine or alcohol Bowel movements regular y Diarrhea n Mouth sores n General Pain (0 none - 10 high) 0 Using pain medications n Fever n Neuro Level of fatigue (0 - 5) 4 sleeping alot Falls Numbness/tingling in arms/legs n Cognitive changes n Skin Skin changes n Pinpoint red dots n Other s/s of bleeding n IV site/VAD problems n Musculoskeletal Joint swelling or tenderness n Arthralgias or myalgias n Voiding problems n Color and quality of urine Cardio-pulmonary Shortness of breath n Chest pain n Swelling in legs n Calf pain or tenderness n Cough (productive/non-productive) n Psychosocial Coping y I Need prescription renewals Other issues : Anxiety. Support provided Education provided: Plan: Push fluids, take 20 minute naps Reinforced to patient/care-relocation manager to call facility 27/09 with any new/worsening signs and symptoms orconcerns or questions. Phone number provided. Pt verbalized understanding and is in agreement with plan. documented in this encounter Plan of Treatment Upcoming Encounters Date Type Department Care Team (Late st Contact Info) Description 10/17/2023 8:30 AM EDT Office Visit Hematology/Oncology at [address] [phone] Boy Tovar MD [facility] DR HEMATOLOGY [place] [address] 10/17/2023 9:00 AM EDT Infusion Hematology Oncology at [address] [phone] documented as of this encounter Visit Diagnoses Not on filedocumented in this encounter Care Teams Dough Mixer Helper Relationship Specialty Start Date End Date Nick Martinez MD [address] [place] [address] PCP - General Internal Medicine 07/01/18 documented as of this encounter
--- OUTSIDE RECORDS SUMMARY | 2023-10-17 03:57 | XMS_ITS | Encounter Summary ---
Author Organization [facility] [place] [address] Care Team Providers Care Used Car Make Ready Worker Name Role Phone Nick Martinez MD Primary Care Provider [phone] Encounter Details Date Type Department Care Team (Latest Contact Info) Description 08/18/2023 Travel Social History Tobacco Use Types Packs/Day Years Used Date Smoking Tobacco: Former Smokeless Tobacco: Current Chew Comments:1 can per day. Plan s to quit today 02/04/21 Alcohol Use Standard Drinks/Week Comments Yes 0 (1 standard drink = 0.6 oz pur e alcohol) on occassion only [facility] Utilities Answer Date Recorded In the past [...] AM EDT Office Visit Hematology/Oncology at [address] [phone] Boy Tovar MD [facility] DR HEMATOLOGY [place] [address] 10/17/2023 9:00 AM EDT Infusion Hematology Oncology at [address] [phone] documented as of this encounter Visit Diagnoses Not on filedocumented in this encounter Care Teams Used Car Make Ready Worker Relationship Specialty Start Date End Date Nick Martinez MD [address] [place] [address] PCP - General Internal Medicine 07/01/18 documented as of this encounter
--- OUTSIDE RECORDS SUMMARY | 2023-10-17 03:57 | XMS_ITS | Encounter Summary ---
Author Organization [facility] [place] [address] Care Team Providers Care Senior Wind Turbine Technician Name Role Phone Nick Martinez MD Primary Care Provider Reason for Referral * Diagnostic Test (Routine) - New Request Specialty Diagnoses / Procedures Referred By Mariana workman Referred To Contact Radiology Diagnoses Primary malignant 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 of right adrenal gland Lymphadenopathy, abdominal Procedures CT Chest Abdomen Pelvis w Contrast (Generic) Boy Tovar MD [facility] [address] [place] [address] Referral ID Status Reason Start Date Expiration Date Visits Requested Visits Authorized [id number] New Request Specialty Service Requested 07/04/2023 01/02/2025 1 1 Encounter Details Date Type Department Care Team (Late st Contact Info) Description 07/04/2023 10:00 AM EDT Office Visit Hematology/Oncology at [address] [phone] Boy Tovar MD [facility] [address] [place] [address] Bisi Hollis APRN [address] [place] [address] DR HEMATOLOGY [place] [address] Primary malignant 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; Brain metastasis; Bilateral lower extremity edema; Secondary malignant neoplasm of right adrenal gland; Lymphadenopathy, abdominal Social History Tobacco Use Types Packs/Day Years Used Date Smoking Tobacco: Former Smokeless Tobacco: Current Chew Comments:1 can per day. Plan s to quit today 02/04/21 Alcohol Use Standard Drinks/Week Comments Yes 0 (1 standard drink = 0.6 oz pur e alcohol) on occassion only [facility] Utilities Answer Date Recorded In [...] place to sleep or slept in a halfway (including now)? No 04/29/2023 Sex and Gender Information Value Date Recorded Sex Assigned at Not on file Gender Identity Not on file Sexual Orientation Not on file documented as of this encounter Last Filed Vital Signs Vital Sign Reading Time Taken Comments Blood Pressure 125/74 07/04/2023 10:14 AM EDT Pulse 105 07/04/2023 10:14 AM EDT Temperature 36.4 ??C (97.5 ??F) 07/04/2023 10:14 AM E DT Respiratory Rate 18 07/04/2023 10:14 AM EDT Oxygen Saturation 99% 07/04/2023 10:14 AM EDT Inhaled Oxygen Concentration - - Weight 130 kg (286 lb 9.6 oz) 07/04/2023 10:14 A M EDT Height 180 cm (5' 10.87) 07/04/2023 10:14 AM ED T Body Mass Index 40.12 07/04/2023 10:14 AM EDT documented in this encounter Progress Notes * Boy Tovar MD - 07/04/2023 10:00 AM EDT Images from the original note were not included. Thoracic Oncology [facility] [place] [address] [phone] Raffy Latif is being seen for cT1cN3 [...] of DVT. Likely related to steroids. - Week of furosemide 20mg daily - Encouraged supportive care with elevation and compression #Muscle cramping/spacticity- Better n the baclofen it seems # Throat pain- no thrush on exam. 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 Therefore the plan was to proceed with stereotactic radiation. Completed radiation on 05/25/2023. - Tapering of Dex as per rad onc. Sx under good control - Srini be getting MRI with them in July #NSCLC - Was planning to do carboplatin/pemetrexed/pembrolizumab but given that he is still on the steroids and has some other issues would prefer to hold off and restage with Ct scan # Tobacco use -Previously discussed this at length and he is motivated and amenable to further intervention. I prescribed Chantix and discussed the potential side effects. Also recommended that he use lozenges to help with immediate urges and cravings. Boy Tovar MD, MS 07/04/2023 Medical Oncology & Hematology [facility] CC: Serenity Larson APRN HPI/Interval History/Subjective: Last seen 05/11/2023 Throat very sore- very painful in the morning after sleeping. Doesn't take any medication for it. Water hurts. As the day goes on it gets less and less. Food goes down and actually seems to make it better. 2-3 weeks. Voice has been getting worse. No COVID test Saw PCP - negative strep. Thought it may be reflux related. Increased the PPI and precribed a lozenge- gaviscon Very hoarse. No thrush- recently completed nystatin and fluconazole. No fevers. Legs are swollen R more than left. Had negative duplex on 06/01 Just finished 1/2 pill once a day 2mg and then starting QOD Strength is ok as he's tapered. Right arm and leg are not too weak. No seizures. Since radiation started tapering his steroids. With this noticed that he had increased R sided weakness. Called Rad Onc and steroids were re-increased to 4 mg BID. With this has noticed some improvement of his symptoms. Family is concerned as he is unsteady on his feet d/t weakness. Has had falls and is concerned he will fall again. R arm weakness is just annoying. Unable to brush his teeth or perform activities that require dexterity. Muscle cramping began a little while back during radiation. Tried dicyclomine, but feels this almost made his symptoms worse. Muscle cramping most noticeable in bilateral hands and in bilateral calves. Also notes new lower extremity edema. R>L. No redness, pain or warmth with palpation. No weepingor open areas of skin. Has not been able to wear compression stockings. No other new symptoms to report today, just looking forward to feeling better. Social History/Support Network: Home situation: Lives with in [facility] with Velvet. 35 years. 3 children and plan to adopt another one through foster care. 1 grandchild Employment: [employer] Tobacco use: Quit in 1999. 38 Pk [...] Molecular Data: NA Treatment Course: 03.02.21 - 2 concurrent carbo/paclitaxel and XRT 04.20.21 Started consolidative [...] brain was not included in the imaged [id number] on the current study. 308/10/2021 3:38 PM 09/14/2021 3:06 PM 10/12/2021 3:12 [...] Patient Active Problem List Diagnosis Date Noted Brain metastasis 04/29/2023 Primary malignant neoplasm of [...] Exam: Wt Readings from Last 3 Encounters: 06/02/23 124.6 kg (274 lb 11.1 oz) 05/19/23 122.9 kg (271 lb) 05/11/23 121.5 kg (267 lb 12.8 oz) Temp Readings from Last 3 Encounters: 06/02/23 36.6 ??C (97.9 ??F) (Temporal) 05/25/23 35.7 ??C (96.2 ??F) (Temporal) 05/23/23 36.9 ??C (98.4 ??F) (Temporal) BP Readings from Last 3 Encounters: 06/02/23 142/87 05/25/23 140/83 05/23/23 127/69 Pulse Readings from Last 3 Encounters: 06/02/23 94 05/25/23 96 05/23/23 95 There is no height or weight on file to calculate BSA. Wt Readings from Last 3 Encounters: 06/02/23 124.6 kg (274 lb 11.1 oz) 05/19/23 122.9 kg (271 lb) 05/11/23 121.5 kg (267 lb 12.8 oz) KPS Score ECOG Grade Definition 90-100 [...] selfcare; totally confined to bed or chair There were no vitals taken for this visit. Physical Exam Constitutional: General: Not in acute distress. Appearance: Normal appearance. Normal weight. Not ill-appearing, toxic-appearing or diaphoretic. HENT: Head: Atraumatic. No oral thrush seen Eyes: General: No scleral icterus. Right eye: No discharge. Left eye: No discharge. Conjunctiva/sclera: Conjunctivae normal. Pulmonary: Effort: Pulmonary effort is normal. Neurological Unsteady gait. Strength is 3-4/5 to R at the deltoid, biceps, triceps, 4/5 to R quadriceps, hamstring, plantar flexion/dorsiflexion. sensation present and equal bilaterally Extremities Review of Laboratory Data: 07/04/23 White blood cell count 7.29 hemoglobin [...] 8:30 AM EDT Office Visit Hematology/Oncology at [address] [phone] Boy Tovar MD [facility] [address] [place] [address] 10/17/2023 9:00 AM EDT Infusion Hematology Oncology at [address] [phone] Scheduled Orders Name Type Priority Associated Diagnoses Orde r Schedule CT Chest Abdomen Pelvis w Contrast (Generic) Imaging Routine 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 Secondary malignant neoplasm of right adrenal gland Lymphadenopathy, abdominal Expected: 07/18/2023 (Approximate), Expires: 07/03/2024 documented as of this encounter Visit Diagnoses Diagnosis Primary malignant 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 Malignant neoplasm of upper lobe, bronchus or lung Brain metastasis Secondary malignant neoplasm of brain and spinal cord Bilateral lower extremity edema Edema Secondary malignant neoplasm of right adrenal gland Secondary malignant neoplasm of adrenal gland Lymphadenopathy, abdominal Enlargement of lymph nodes Primary malignant 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 Malignant neoplasm of upper lobe, bronchus or lung Brain metastasis 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 Secondary malignant neoplasm of adrenal gland documented in this encounter Care Teams Senior Wind Turbine Technician Relationship Specialty Start Date End Date Nick Martinez MD [address] [place] [address] PCP - General Internal Medicine 07/01/18 documented as of this encounter
--- OUTSIDE RECORDS SUMMARY | 2023-10-17 03:57 | XMS_ITS | Encounter Summary ---
Author Organization [facility] [place] [address] Care Team Providers Care Rope Machine Setter Name Role Phone Nick Martinez MD Primary Care Provider [phone] Encounter Details Date Type Department Care Team (Late st Contact Info) Description 06/27/2023 Orders Only Hematology [place] [phone] [facility] [address] [place] [address] Primary malignant 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; Brain metastasis; High risk medication use Social History Tobacco Use Types Packs/Day Years Used Date Smoking Tobacco: Former Smokeless Tobacco: Current Chew Comments:1 can per day. Plan s to quit today 02/04/21 Alcohol Use Standard Drinks/Week Comments Yes 0 (1 standard drink = 0.6 oz pur e alcohol) on occassion only [facility] Utilities Answer Date Recorded In the [...] 8:30 AM EDT Office Visit Hematology/Oncology at [address] [phone] [facility] [place] [address] 10/17/2023 9:00 AM EDT Infusion Hematology Oncology at [address] [phone] Scheduled Orders Name Type Priority Associated Diagnoses Orde r Schedule Magnesium Lab STAT 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 Once a week for 48 Occurrences starting 06/28/2023 until 06/27/2024 Comprehensive metabolic panel (non-fasting) Lab STAT 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 Once a week for 48 Occurrences starting 06/28/2023 until 06/27/2024 CBC (with Diff) Lab STAT 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 Once a week for 48 Occurrences starting 06/28/2023 until 06/27/2024 TSH Lab Routine 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 High risk medication use Every 3 weeks for 24 Occurrences starting 06/28/2023 until 06/27/2024 T4, free Lab Routine 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 High risk medication use Every 3 weeks for 24 Occurrences starting 06/28/2023 until 06/27/2024 documented as of this encounter Visit Diagnoses Diagnosis Primary malignant 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 Malignant neoplasm of upper lobe, bronchus or lung Brain metastasis Secondary malignant neoplasm of brain and spinal cord High risk medication use Encounter for long-term (current) use of other medications Primary malignant 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 Malignant neoplasm of upper lobe, bronchus or lung Brain metastasis 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 Secondary malignant neoplasm of adrenal gland documented in this encounter Care Teams Rope Machine Setter Relationship Specialty Start Date End Date Nick Martinez MD [address] [place] [id number] PCP - General Internal Medicine 07/01/18 documented as of this encounter
--- OUTSIDE RECORDS SUMMARY | 2023-10-17 03:57 | XMS_ITS | Encounter Summary ---
Author Organization [facility] [place] [address] Care Team Providers Care Stumper Feller Name Role Phone Nick Martinez MD Primary Care Provider [phone] Encounter Details Date Type Department Care Team (Late st Contact Info) Description 07/17/2023 Telephone Hematology [place] [address] Shanon Moore MD [facility] DR HEMATOLOGY/[place] [address] Social History Tobacco Use Types Packs/Day Years Used Date Smoking Tobacco: Former Smokeless Tobacco: Current Chew Comments:1 can per day. Plan s to quit today 02/04/21 Alcohol Use Standard Drinks/Week Comments Yes 0 (1 standard drink = 0.6 oz pur e alcohol) on occassion only [facility] Utilities Answer Date Recorded In the past 12 months has [employer], gas, oil, or water company threatened [...] place to sleep or slept in a long term (including now)? No 04/29/2023 Sex and Gender Information Value Date Recorded Sex Assigned at Not on file Gender Identity Not on file Sexual Orientation Not on file documented as of this encounter Miscellaneous Notes * Telephone Encounter - Shanon Moore MD - 07/17/2023 11:36 AM EDT BRIEF CONVERSATION WITH OSH PROVIDER: Referring Facility: [facility] Calling Provider: LOUIS Mistryuart Salomon is a 62yo M with cT1cN3 Stage III-C non small cell lung cancer (adenocarcinoma). He follows with Dr. Guy MD in the outpatient setting. Per review of the patient's chart, he is on Carbo/pem/pem with last infusion on 07/04/23. Oncology was paged as the patient had presented to the local ED due to SOB and cough. CT CAP revealed similar disease burden as prior. There was concern for evolving pneumonia. This is not an official consult as I am unable to obtain a direct history or perform a physical examination. All information is obtained from chart review or communication from calling provider. The calling provider is planning to discharge the patient home with Augmentin and a Z-pack. I recommended to also obtain a respiratory panel to rule out viral causes of symptoms. The patient has a follow-up appointment with Oncology on 07/25/23. Thank you for involving me in the care of the patient. Please call with any questions or concerns. Shanon Moore MD [facility] [place] Hematology/Oncology [facility] [place] Pager#[phone] documented in this encounter Plan of Treatment Upcoming Encounters Date Type Department Care Team (Late st Contact Info) Description 10/17/2023 8:30 AM EDT Office Visit Hematology/Oncology at [address] [phone] Boy Tovar MD [facility] DR [place] [address] 10/17/2023 9:00 AM EDT Infusion Hematology Oncology at [address] [phone] documented as of this encounter Visit Diagnoses Not on filedocumented in this encounter Care Teams Stumper Feller Relationship Specialty Start Date End Date Nick Martinez MD [address] [place] [address] PCP - General Internal Medicine 07/01/18 documented as of this encounter
--- OUTSIDE RECORDS SUMMARY | 2023-10-17 03:57 | XMS_ITS | Encounter Summary ---
Author Organization [facility] [place] [address] Care Team Providers Care Sanitation Associate Name Role Phone Nick Martinez MD Primary Care Provider [phone] Encounter Details Date Type Department Care Team (Late st Contact Info) Description 07/05/2023 Orders Only Hematology [place] [phone] Boy Tovar MD [facility] [place] [address] Social History Tobacco Use Types Packs/Day Years Used Date Smoking Tobacco: Former Smokeless Tobacco: Current Chew Comments:1 can per day. Plan s to quit today 02/04/21 Alcohol Use Standard Drinks/Week Comments Yes 0 (1 standard drink = 0.6 oz pur e alcohol) on occassion only [facility] Utilities Answer Date Recorded In the past 12 months has [employer], gas, oil, or water company threatened [...] place to sleep or slept in a fdc (including now)? No 04/29/2023 Sex and Gender Information Value Date Recorded Sex Assigned at Not on file Gender Identity Not on file Sexual Orientation Not on file documented as of this encounter Plan of Treatment Upcoming Encounters Date Type Department Care Team (Late st Contact Info) Description 10/17/2023 8:30 AM EDT Office Visit Hematology/Oncology at [address] [phone] Boy Tovar MD [facility] DR [place] [address] 10/17/2023 9:00 AM EDT Infusion Hematology Oncology at [address] [phone] documented as of this encounter Visit Diagnoses Not on filedocumented in this encounter Care Teams Sanitation Associate Relationship Specialty Start Date End Date Nick Martinez MD [address] [place] [address] PCP - General Internal Medicine 07/01/18 documented as of this encounter
--- OUTSIDE RECORDS SUMMARY | 2023-10-17 03:57 | XMS_ITS | Encounter Summary ---
[place] [address] Care Team Providers Care Highway Design Engineer Name Role Phone Nick Martinez MD Primary Care Provider [phone] Encounter Details Date Type Department Care Team (Late st Contact Info) Description 07/15/2023 Telephone Hematology [place] [address] Sandra Brito, RN Social History Tobacco Use Types Packs/Day Years Used Date Smoking Tobacco: Former Smokeless Tobacco: Current Chew Comments:1 can per day. Plan s to quit today 02/04/21 Alcohol Use Standard Drinks/Week Comments Yes 0 (1 standard drink = 0.6 oz pur e alcohol) on occassion only [facility] Utilities Answer Date Recorded In the past 12 months has [employer], gas, oil, or water [employer] threatened to shut off services in [...] place to sleep or slept in a group home (including now)? No 04/29/2023 Sex and Gender Information Value Date Recorded Sex Assigned at Not on file Gender Identity Not on file Sexual Orientation Not on file documented as of this encounter Miscellaneous Notes * Telephone Encounter - Sandra Brito RN - 07/15/2023 4:16 PM EDT Message received from gravity prospecting operator: I have Hawa, pt sister on phone with a question of what the side effects of coming off baclofen are. He has not had any since Tue and he has become extremely angryand irate. She also said she was never told if he should continue his diruetic. Call to patient's sister: Left message for Hawa to return call. Spoke with Dr. Tovar who stated another RN has spoken with the patient regarding the diuretic and Baclofen and no further action is necessary at this time. documented in this encounter Plan of Treatment Upcoming Encounters Date Type Department Care Team (Late st Contact Info) Description 10/17/2023 8:30 AM EDT Office Visit Hematology/Oncology at [address] [phone] Boy Tovar MD [facility] DR HEMATOLOGY [place] [address] 10/17/2023 9:00 AM EDT Infusion Hematology Oncology at [address] [phone] documented as of this encounter Visit Diagnoses Not on filedocumented in this encounter Care Teams Highway Design Engineer Relationship Specialty Start Date End Date Nick Martinez MD [address] [place] [address] PCP - General Internal Medicine 07/01/18 documented as of this encounter
--- OUTSIDE RECORDS SUMMARY | 2023-10-17 03:57 | XMS_ITS | Encounter Summary ---
[place] [address] Care Team Providers Care Med Specialist Name Role Phone Nick Martinez MD Primary Care Provider [phone] Encounter Details Date Type Department Care Team (Late st Contact Info) Description 06/29/2023 Telephone [place] [address] Neha Servin RN Social History Tobacco Use Types Packs/Day Years Used Date Smoking Tobacco: Former Smokeless Tobacco: Current Chew Comments:1 can per day. Plan s to quit today 02/04/21 Alcohol Use Standard Drinks/Week Comments Yes 0 (1 standard drink = 0.6 oz pur e alcohol) on occassion only [facility] Utilities Answer Date Recorded In the past 12 months has [employer], gas, oil, or water [employer] threatened to shut off services in your [...] encounter Miscellaneous Notes * Telephone Encounter - Neha Servin RN - 06/29/2023 2:35 PM EDT Received following message from secretary of police: Raffy Shaikh's sister called this afternoon to let us know that he has a sore throat with hoarseness for the last week and it feels like it is raw. He was seen at Urgent Care, tested negative for strep and they increased his omeprazole to 40 mg. He did notice he had some dark brown sputum as well. He has not had fevers or shortness of breath. Could someone reach out to him to discuss at [phone] when time allows. This RN called patient who confirmed symptoms as listed above. He feels good other than sore throatand continues his steroid taper as instructed. Per patient no thrush or signs of infections noted during urgent care visit today. He denies any nasal congestion, post nasal drip, change in cough, SOB, fevers. He cannot name any triggers that worsen or improve symptoms. He does report significant snoring while sleeping and feels this may be contributing to the sore throat. Plan: Follow instructions from urgent care to increase omeprazole to 40mg qhs and use prescribed lozengeswhen delivered. Pt is unsure of name of lozenges. Salt water gargles several times daily. Place humidifier in bedroom. Wait several hours to lie down after eating. Monitor for fever, SOB, worsening cough, or any other signs of infection and seek medical attention. Attend 07/03 J Hem Onc visit as scheduled and make that team aware of any worsening symptoms prior to receiving chemo. Raffy agrees with this plan and will reach out for concerns or questions. documented in this encounter Plan of Treatment Upcoming Encounters Date Type Department Care Team (Late st Contact Info) Description 10/17/2023 8:30 AM EDT Office Visit Hematology/Oncology at [address] [phone] Boy Tovar MD [facility] DR HEMATOLOGY [place] [address] 10/17/2023 9:00 AM EDT Infusion Hematology Oncology at [address] [phone] documented as of this encounter Visit Diagnoses Not on filedocumented in this encounter Care Teams Med Specialist Relationship Specialty Start Date End Date Nick Martinez MD [address] [place] [address] PCP - General Internal Medicine 07/01/18 documented as of this encounter
--- OUTSIDE RECORDS SUMMARY | 2023-10-17 03:57 | XMS_ITS | Encounter Summary ---
[place] [address] Care Team Providers Care Personal Development Coach Name Role Phone Nick Martinez MD Primary Care Provider [phone] Reason for Visit * Reason Onset Date Comments Prior Authorization 08/18/2023 Encounter Details Date Type Department Care Team (Late st Contact Info) Description 08/18/2023 Telephone H[place]ology [place] [address] Manjula Liu Prior Authorization Social History Tobacco Use Types Packs/Day Years Used Date Smoking Tobacco: Former Smokeless Tobacco: Current Chew Comments:1 can per day. Plan s to quit today 02/04/21 Alcohol Use Standard Drinks/Week Comments Yes 0 (1 standard drink = 0.6 oz pur e alcohol) on occassion only [employer] Utilities Answer Date Recorded In the past 12 months has [employer], gas, oil, or water [employer] threatened to shut off services in your [...] place to sleep or slept in a assisted (including now)? No 04/29/2023 Sex and Gender Information Value Date Recorded Sex Assigned at Not on file Gender Identity Not on file Sexual Orientation Not on file documented as of this encounter Miscellaneous Notes * Telephone Encounter - Manjula Liu - 08/18/2023 12:41 PM EDT Procedure Prior Authorization Procedure/Cpt: 7 1260, [address] Ct C/A/P Rationale: C34.11 Health Plan: [facility] [employer]une Authorizing Vendor: [employer] Order/ Authorization #: Effective Date: 08/18/2023 - 10/16/2023 Status: Approved Rendering Facility: [facility] documented in this encounter Plan of Treatment Upcoming Encounters Date Type Department Care Team (Late st Contact Info) Description 10/17/2023 8:30 AM EDT Office Visit Hematology/Oncology at [address] [phone] Boy Tovar MD [facility] HEMATOLOGY [place] [address] 10/17/2023 9:00 AM EDT Infusion Hematology Oncology at [address] [phone] documented as of this encounter Visit Diagnoses Not on filedocumented in this encounter Care Teams Personal Development Coach Relationship Specialty Start Date End Date Nick Martinez MD [address] [place] [address] PCP - General Internal Medicine 07/01/18 documented as of this encounter
--- OUTSIDE RECORDS SUMMARY | 2023-10-17 03:57 | XMS_ITS | Encounter Summary ---
Author Organization [facility]ly [facility] [place] [address] Care Team Providers Care Seed Cone Picker Name Role Phone Nick Martinez MD Primary Care Provider [phone] Encounter Details Date Type Department Care Team (Late st Contact Info) Description 07/18/2023 Orders Only [place]ematology [place] [address] Boy Tovar MD [facility] DR HEMATOLOGY [place] [address] Primary malignant 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 Social History Tobacco Use Types Packs/Day Years Used Date Smoking Tobacco: Former Smokeless Tobacco: Current Chew Comments:1 can per day. Plan s to quit today 02/04/21 Alcohol Use Standard Drinks/Week Comments Yes 0 (1 standard drink = 0.6 oz pur e alcohol) on occassion only [facility] Utilities Answer Date Recorded In the past 12 months has [employer] electric, gas, oil, or water company threatened [...] place to sleep or slept in a [place] facility (including now)? No 04/29/2023 Sex and Gender Information Value Date Recorded Sex Assigned at Not on file Gender Identity Not on file Sexual Orientation Not on file documented as of this encounter Plan of Treatment Upcoming Encounters Date Type Department Care Team (Late st Contact Info) Description 10/17/2023 8:30 AM EDT Office Visit Hematology/Oncology at [address] [phone] Boy Tovar MD [facility] DR H[place]AT[place] [address] 10/17/2023 9:00 AM EDT Infusion Hematology Oncology at [address] [phone] documented as of this encounter Visit Diagnoses Diagnosis Primary malignant 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 Malignant neoplasm of upper lobe, bronchus or lung Primary malignant 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 Malignant neoplasm of upper lobe, bronchus or lung Brain metastasis 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
--- OUTSIDE RECORDS SUMMARY | 2023-10-17 03:57 | XMS_ITS | Encounter Summary ---
Author Organization [facility]ly [facility] [place] [address] Care Team Providers Care Home Advisor Name Role Phone Nick Martinez MD Primary Care Provider Reason for Referral * Diagnostic Test (Routine) - Closed Specialty Diagnoses / Procedures Referred By Mariana workman Referred To Contact Radiology Diagnoses Primary malignant 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 of right adrenal gland Procedures NM PET CT Skull Base to Mid-thigh Boy Tovar MD [facility] DR HEMATOLOGY [place] [address] [place] [address] Referral ID Status Reason Start Date Expiration Date V isits Requested Visits Authorized [id number] Closed Specialty Service Requested 09/09/2023 11/07/2023 1 1 Encounter Details Date Type Department Care Team (Late st Contact Info) Description 09/05/2023 9:00 AM EDT Office Visit Hematology/Oncology at [address] [phone] Boy Tovar MD [facility] DR HEMATOLOGY [place] [address] Bisi Hollis, [place] [address] [place] [address] DR [place] [address] Primary malignant 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; Brain metastasis; Secondary malignant neoplasm of right adrenal gland Social History Tobacco Use Types Packs/Day Years Used Date Smoking Tobacco: Former Smokeless Tobacco: Current Chew Comments:1 can per day. Plan s to quit today 02/04/21 Alcohol Use Standard Drinks/Week Comments Yes 0 (1 standard drink = 0.6 oz pur e alcohol) on occassion only [facility] Utilities Answer Date Recorded In the [...] Sign Reading Time Taken Comments Blood Pressure 97/79 09/05/2023 8:57 AM EDT Pulse 96 09/05/2023 8:57 AM EDT Temperature 36.5 ??C (97.7 ??F) 09/05/2023 8:57 AM ED T Respiratory Rate 18 09/05/2023 8:57 AM EDT Oxygen Saturation 98% 09/05/2023 8:57 AM EDT Inhaled Oxygen Concentration - - Weight 124 kg (273 lb 6.4 oz) 09/05/2023 8:57 AM EDT Height 180 cm (5' 10.87) 09/05/2023 8:57 AM EDT Body Mass Index 38.28 09/05/2023 8:57 AM EDT documented in this encounter Progress Notes * Boy Tovar MD - 09/05/2023 9:00 AM EDT Images from the original note were not included. Thoracic Oncology [facility] [place] [address] [phone] Raffy Latif is being seen for cT1cN3 [...] treatment. - RTC in 3 weeks for C4 - Restage with PET scan at [facility] (first week of October- ordered today at [facility]. He has anxiolytic on hand if he needs) and then would likely pursue maintenance therapy. 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 Therefore the plan was to proceed with stereotactic radiation. Completed radiation on 05/25/2023. - Asymptomatic, remains on Keppra - Most recent MRI done 08/12/23, shows response. - Plan for rad onc for followup in # FEN - Hyperkalemiaimproving, reviewed high K foods. - Hypomag- Will replete IV at time of infusion #Muscle cramping/spacticity - Resolved # Tobacco use - Chewing tobacco. Not currently interested in chantix or nicotine replacement at this point. Boy Tovar MD, MS 09/05/2023 Medical Oncology & Hematology [facility] CC: Serenity Larson APRN HPI/Interval History/Subjective: Last seen 08/17/2023 [place] better after C2. No admission this time. Started the nausea med on Tuesday -3-4x . Stayed hydrated. Cough is less No fevers Staying on the claritin No new rashes, changes in breathing, new cough, diarrhea. No fevers or signs of infection. No chest pain or swelling. No seizures. Remains on Keppra Muscle cramping has resolved. BLE edema has resolved. Social History/Support Network: Home situation: Lives with in [facility] with Velvet. 35 years. 3 children and plan to adopt another one through foster care. 1 grandchild Employment: [employer] Tobacco use: Quit in 1999. 38 Pk [...] brain was not included in the imaged [id number] on the current study. 05.25.[address] c/a/p 07.25.23 C1 carboplatin/pemetrexed/pembrolizumab 08.17.23 C2 carbo/pem/pem 07/25/2023 2:37 PM 07/25/2023 2:57 PM 07/25/2023 3:38 PM 07/25/2023 3:52 PM 08/17/2023 9:59 AM 08/17/2023 10:42 AM 08/17/2023 11:13 AM ONCBCN ONCOLOGY (AMB) Day, Cycle Day 1, Cycle 1 Day 1, Cycle 2 CARBOplatin (Paraplatin) IV 631 mg 631 mg cyanocobalamin (Vitamin B-12) 1,000 mcg/mL SubQ 1,000 mcg pembrolizumab 25 mg/mL (Keytruda) IV 200 mg [...] Exam: Wt Readings from Last 3 Encounters: 09/05/23 124 kg (273 lb 6.4 oz) 08/18/23 124.6 kg (274 lb 11.1 oz) 08/17/23 124.6 kg (274 lb 9.6 oz) Temp Readings from Last 3 Encounters: 09/05/23 36.5 ??C (97.7 ??F) (Temporal) 08/18/23 36.5 ??C (97.7 ??F) (Temporal) 08/17/23 36.4 ??C (97.5 ??F) (Temporal) BP Readings from Last 3 Encounters: 09/05/23 97/79 08/18/23 127/68 08/17/23 124/80 Pulse Readings from Last 3 Encounters: 09/05/23 96 08/18/23 96 08/17/23 (!) 104 Body surface area is 2.49 meters squared. Wt Readings from Last 3 Encounters: 09/05/23 124 kg (273 lb 6.4 oz) 08/18/23 124.6 kg (274 lb 11.1 oz) 08/17/23 124.6 kg (274 lb 9.6 oz) KPS Score ECOG Grade [...] totally confined to bed or chair BP 97/79 (Patient Position: Sitting) Pulse 96 Temp 36.5 ??C (97.7 ??F) (Temporal) Resp 18 Ht 180 cm (5' 10.) Wt 124 kg (273 lb 6.4 oz) SpO2 98% BMI 38.28 kg/m?? Physical Exam Constitutional: General: Not in acute distress. Appearance: Normal appearance. Normal weight. Not ill-appearing, toxic-appearing or diaphoretic. HENT: Head: Atraumatic. No oral thrush seen Eyes: General: No scleral icterus. Right eye: No discharge. Left eye: No discharge. Conjunctiva/sclera: Conjunctivae normal. Pulmonary: Effort: Pulmonary effort is normal. Review of Laboratory Data: 7.03.30 White blood cell count 3.61 hemoglobin 11.9 [...] Review of Imaging Data: 09.01.23 CT CAP 6.24 MRI Brain 02.04.23 CT Chest IMPRESSION Stable [...] 8:30 AM EDT Office Visit Hematology/Oncology at [address] [phone] Boy Tovar MD [facility] HEMATOLOGY [place] [address] 10/17/2023 9:00 AM EDT Infusion Hematology Oncology at [address] [phone] documented as of this encounter Results * NM PET CT Skull Base to Mid-thigh (10/10/2023 10:29 AM EDT) WORKSTATION ID [id number] RAD Anatomical Region Laterality Modality Positron Emissio [...] who have questions please contact the health career professional that requested your imaging first. ? Electronically signed by: Alfredo Jean-Baptiste MD, [facility] ([phone]), at 10/12/2023 11:15 AM Narrative 10/12/2023 11:15 AM EDT EXAMINATION: NM PET CT STANDARD SKULL BASE TO MID-THIGH CLINICAL HISTORY: History of metastatic lung cancer with abdominal pelvic adenopathy status post BOX TOE CUTTER currently on chemotherapy with palliative intent. C34.11, Malignant neoplasm of upper lobe, right bronchus or lung - C79.31, Secondary malignant neoplasm of brain - C79.71, Secondary malignant neoplasm of right adrenal gland TECHNIQUE: Following IV injection of 89-bhrmft-3-deoxyglucose (FDG) a standard uptake of approximately 60 [...] axial and visualized appendicular skeleton. Procedure Note Alfreod Jean-Baptiste MD - 10/12/2023 EXAMINATION: NM PET CT STANDARD SKULL BASE TO MID-THIGH CLINICAL HISTORY: History of metastatic lung cancer with abdominalpelvic adenopathy status post BOX TOE CUTTER currently on chemotherapy with palliativeintent. C34.11, Malignant neoplasm of upper lobe, right bronchus or lung -C79.31, Secondary malignant neoplasm of brain - C79.71, Secondary malignantneoplasm of right adrenal gland TECHNIQUE: Following IV injection of 56-cicdsg-6-deoxyglucose (FDG) astandard uptake of approximately 60 minutes, [...] patients who have questions please contactthe health career professional that requested your imaging first. Electronically signed by: Alfredo Jean-Baptiste MD, [facility]([phone]), at 10/12/2023 11:15 AM Boy Tovar MD IM PET ORDERABLES documented in this encounter Visit [...] gland documented in this encounter Care Teams Home Advisor Relationship Specialty Start Date End Date Nick Martinez MD [address] [place] [id number] PCP - General Internal Medicine 07/01/18 documented as of this encounter
--- OUTSIDE RECORDS SUMMARY | 2023-10-17 03:57 | XMS_ITS | Encounter Summary ---
Author Organization [facility] Address [facility] [place] [address] Care Team Providers Care Millwright Name Role Phone Nick Martinez MD Primary Care Provider [phone] Encounter Details Date Type Department Care Team (Late st Contact Info) Description 07/08/2023 Orders Only Hematology [place] [address] Boy Tovar MD [facility] DR [place] [address] Social History Tobacco Use Types Packs/Day Years Used Date Smoking Tobacco: Former Smokeless Tobacco: Current Chew Comments:1 can per day. Plan s to quit today 02/04/21 Alcohol Use Standard Drinks/Week Comments Yes 0 (1 standard drink = 0.6 oz pur e alcohol) on occassion only [facility] Utilities Answer Date Recorded In the past 12 months has [employer] electric, gas, oil, or water company threatened [...] 8:30 AM EDT Office Visit Hematology/Oncology at [address] [phone] Boy Tovar MD [facility] DR [place] [address] 10/17/2023 9:00 AM EDT Infusion Hematology Oncology at [address] [phone] documented as of this encounter Visit Diagnoses Not on filedocumented in this encounter Care Teams Millwright Relationship Specialty Start Date End Date Nick Martinez MD [address] [place] [address] PCP - General Internal Medicine 07/01/18 documented as of this encounter
--- OUTSIDE RECORDS SUMMARY | 2023-10-17 03:57 | XMS_ITS | Encounter Summary ---
Author Organization [facility] [place] [address] Care Team Providers Care Excavator Operator Name Role Phone Nick Martinez MD Primary Care Provider [phone] Encounter Details Date Type Department Care Team (Latest Contact Info) Description 07/02/2023 Travel Social History Tobacco Use Types Packs/Day Years Used Date Smoking Tobacco: Former Smokeless Tobacco: Current Chew Comments:1 can per day. Plan s to quit today 02/04/21 Alcohol Use Standard Drinks/Week Comments Yes 0 (1 standard drink = 0.6 oz pur e alcohol) on occassion only [facility] Utilities Answer Date Recorded In [...] 8:30 AM EDT Office Visit Hematology/Oncology at [address] [phone] Boy Tovar MD [facility] DR [place] [address] 10/17/2023 9:00 AM EDT Infusion Hematology Oncology at [address] [phone] documented as of this encounter Visit Diagnoses Not on filedocumented in this encounter Care Teams Excavator Operator Relationship Specialty Start Date End Date Nick Martinez MD [address] [place] [address] PCP - General Internal Medicine 07/01/18 documented as of this encounter
--- OUTSIDE RECORDS SUMMARY | 2023-10-17 03:57 | XMS_ITS | Encounter Summary ---
[place] [address] Care Team Providers Care Securities Sales Associate Name Role Phone Nick Martinez MD Primary Care Provider [phone] Reason for Visit * Reason Onset Date Comments Prior Authorization 07/05/2023 Encounter Details Date Type Department Care Team (Late st Contact Info) Description 07/05/2023 Telephone [place] [address] Manjula Liu Prior Authorization Social History Tobacco Use Types Packs/Day Years Used Date Smoking Tobacco: Former Smokeless Tobacco: Current Chew Comments:1 can per day. Plan s to quit today 02/04/21 Alcohol Use Standard Drinks/Week Comments Yes 0 (1 standard drink = 0.6 oz pur e alcohol) on occassion only [employer] Utilities Answer Date Recorded In the past 12 months has [employer], gas, oil, or water [employer] threatened to shut off services in your [...] * Telephone Encounter - Manjula Liu - 07/05/2023 3:04 PM EDT Procedure Prior Authorization Procedure/Cpt: 10244 Ct abdomen/pelvis C+ Rationale: C34.11 Health Plan: [facility] [place] Authorizing Vendor: [employer] Order/ Authorization #: Effective Date: 07/05/2023 - 09/02/2023 Status: Approved Rendering Facility: [facility] documented in this encounter Plan of Treatment Upcoming Encounters Date Type Department Care Team (Late st Contact Info) Description 10/17/2023 8:30 AM EDT Office Visit Hematology/Oncology at [address] [phone] Boy Tovar MD [facility] DR HEMATOLOGY [place] [address] 10/17/2023 9:00 AM EDT Infusion Hematology Oncology at [address] [phone] documented as of this encounter Visit Diagnoses Not on filedocumented in this encounter Care Teams Securities Sales Associate Relationship Specialty Start Date End Date Nick Martinez MD [address] [place] [address] PCP - General Internal Medicine 07/01/18 documented as of this encounter
--- OUTSIDE RECORDS SUMMARY | 2023-10-17 03:57 | XMS_ITS | Encounter Summary ---
Author Organization [facility] [place] [address] Care Team Providers Care Bag Machine Helper Name Role Phone Nick Martinez MD Primary Care Provider [phone] Reason for Visit * Reason Comments Chemotherapy Cycle 2, Day 1 - Pem brolizumab, Pemetrexed, Carboplatin * Treatment/Therapy Plan Authorization (Routine) - Authorized [...] HCL, 25MCG, INJECTION (ALOXI) Boy Tovar MD [address] [place] [address] [place] [address] Boy Tovar MD [address] [place] [address] [place] [address] Referral ID Status Reason Start Date Expiration Date V isits Requested Visits Authorized [id number] Authorized 06/27/2023 10/27/2023 99 99 Encounter Details Date Type Department Care Team (Late st Contact Info) Description 08/17/2023 9:00 AM EDT Infusion Hematology Oncology at [address] [phone] Secondary malignant neoplasm of brain; Primary malignant 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 Social History Tobacco Use Types Packs/Day Years Used Date Smoking Tobacco: Former Smokeless Tobacco: Current Chew Comments:1 can per day. Plan s to quit today 02/04/21 Alcohol Use Standard Drinks/Week Comments Yes 0 (1 standard drink = 0.6 oz pur e alcohol) on occassion only [facility] Utilities Answer Date Recorded In the past [...] place to sleep or slept in a retirement (including now)? No 04/29/2023 Sex and Gender Information Value Date Recorded Sex Assigned at Not on file Gender Identity Not on file Sexual Orientation Not on file documented as of this encounter Progress Notes * Ginette Freeman RN - 08/17/2023 9:00 AM EDT INFUSION THERAPY ADMINISTRATION NOTES DIAGNOSIS: NSCLC CYCLE #: Cycle 2, Day 1 - Pembrolizumab, Pemetrexed, Carboplatin REASON FOR VISIT: To receive scheduled chemotherapy. SUBJECTIVE: Raffy offers no complaints. OBJECTIVE: Seen by provider. Ready to treat. LAB DATA: WBC - 4.63, H/H - 11.9/34.2, Plt Ct - 303, ANC - 2.97, Lytes wnl, BUN/CR - 13/1.4, MG++ -1.6 IV ACCESS: PIV Pre administration: Chemotherapy orders independently verified for drug name, route, and dosage per patient's height, weight and BSA by Ginette Freeman RN and Staff Pharmacist(s). REACTIONS (DESCRIPTION, TIME, INTERVENTION AND EFFECTIVENESS) none ASSESSMENT: Raffy was awake, alert and tolerated treatment well. PIV discontinued prior to dismissal. PLAN: Return to clinic in three weeks. documented in this encounter Plan of Treatment Upcoming Encounters Date Type Department Care Team (Late st Contact Info) Description 10/17/2023 8:30 AM EDT Office Visit Hematology/Oncology at [address] [phone] Boy Tovar MD [facility] DR HEMATOLOGY [place] [address] 10/17/2023 9:00 AM EDT Infusion Hematology Oncology at [address] [phone] documented as of this encounter Visit Diagnoses [...] MAR Action Action Date Dose Rate Site aprepitant (CINVANTI) injection Emulsion 130 mg 130 mg, Intravenous, Administer over 2 Minutes, ONCE, 1 dose, On Tue08/17/23 at 0930, Alternative administration of IV push over 2 minutes is a recommendation from the ladle car operator. Administer prior to chemotherapy., Routine Given 08/17/2023 9:43 AM EDT 130 mg CARBOplatin (Paraplatin) 631 mg in dextrose 5% 313.1 mL infusion 631 mg (Target AUC = 5), Intravenous, ONCE, 1 dose, On Tue08/17/23 at 1030, Administer over 30 Minutes, Warning Vesicant/Irritant Medication New Bag 08/17/2023 11:13 AM EDT 631 mg 626.2 mL/hr dexAMETHasone (Decadron) tablet 10 mg 10 mg, Oral, ONCE, 1 dose, On Tue08/17/23 at 0930, Administer prior to chemotherapy, Routine Given 08/17/2023 9:41 AM EDT 10 mg palonosetron (Aloxi) (0.05 mg/mL) injection 0.25 mg 0.25 mg, Intravenous, ONCE, 1 dose, On Tue08/17/23 at 0930, Administer over 30 seconds., Routine Given 08/17/2023 9:44 AM EDT 0.25 mg pembrolizumab (Keytruda) 200 mg in sodium chloride 0.9% 108 mL infusion 200 mg, Intravenous, ONCE, 1 dose, On Tue08/17/23 at 1030, Administer over 30 Minutes, Flush Line with NS after each dose, This agent is restricted to outpatient use. Is this drug being given as an outpatient? Yes New Bag 08/17/2023 9:59 AM EDT 200 mg 216 mL/hr PEMEtrexed disodium (Alimta) 1,200 mg in sodium chloride 0.9% 148 mL infusion 1,200 mg (rounded from 1,250 mg = 500 mg/m2/dose ? 2.5 m2 Treatment Plan BSA from Recorded weight), Intravenous, ONCE, 1 dose, On Tue08/17/23 at 1030, Administer over 10 Minutes New Bag 08/17/2023 10:42 AM EDT 1,200 mg 888 mL/hr documented in this encounter Care Teams Bag Machine Helper Relationship Specialty Start Date End Date Nick Martinez MD [address] [place] [address] PCP - General Internal Medicine 07/01/18 documented as of this encounter
--- OUTSIDE RECORDS SUMMARY | 2023-10-17 03:57 | XMS_ITS | Encounter Summary ---
Author Organization [facility] [place] [address] Care Team Providers Care Transport Conductor Name Role Phone Nick Martinez MD Primary Care Provider [phone] Encounter Details Date Type Department Care Team (Late st Contact Info) Description 09/26/2023 Notes Only Hematology/Oncology at [address] [phone] Azalea Watkins, EARTH BORING MACHINE OPERATOR OFFICE OF CARE MANAGEMENT Social History Tobacco Use Types Packs/Day Years Used Date Smoking Tobacco: Former Smokeless Tobacco: Current Chew Comments:1 can per day. Plan s to quit today 02/04/21 Alcohol Use Standard Drinks/Week Comments Yes 0 (1 standard drink = 0.6 oz pur e alcohol) on occassion only [facility] Utilities Answer Date Recorded In the past 12 months has [employer] electric, gas, oil, or water company threatened [...] place to sleep or slept in a care home (including now)? No 04/29/2023 Sex and Gender Information Value Date Recorded Sex Assigned at Not on file Gender Identity Not on file Sexual Orientation Not on file documented as of this encounter Progress Notes * Azalea Watkins MSW - 09/26/2023 9:30 AM EDT Follow up with Raffy during his infusion visit today. He indicated he is doing fairly well. He is managing day to day at home. He has good support in place. The warmer, more humid weather has been difficult for him. He does what he feels up to. Raffy did not identify any new needs today. Offered support. Will continue to follow as indicated. Brief assessment Supportive Counseling documented in this encounter Plan of Treatment Upcoming Encounters Date Type Department Care Team (Late st Contact Info) Description 10/17/2023 8:30 AM EDT Office Visit Hematology/Oncology at [address] [phone] Boy Tovar MD [facility] HEMATOLOGY [place] [address] 10/17/2023 9:00 AM EDT Infusion Hematology Oncology at [address] [phone] documented as of this encounter Visit Diagnoses Not on filedocumented in this encounter Care Teams Transport Conductor Relationship Specialty Start Date End Date Nick Martinez MD [address] [place] [address] PCP - General Internal Medicine 07/01/18 documented as of this encounter
--- OUTSIDE RECORDS SUMMARY | 2023-10-17 03:57 | XMS_ITS | Encounter Summary ---
Author Organization [facility] Address [facility] [place] [address] Care Team Providers Care Infection Control Specialist Name Role Phone Nick Martinez MD Primary Care Provider Encounter Details Date Type Department Care Team (Late st Contact Info) Description 06/28/2023 Orders Only Hematology/Oncology at [address] [phone] Boy Tovar MD [facility] DR [place] [address] Social History Tobacco Use Types Packs/Day Years Used Date Smoking Tobacco: Former Smokeless Tobacco: Current Chew Comments:1 can per day. Plan s to quit today 02/04/21 Alcohol Use Standard Drinks/Week Comments Yes 0 (1 standard drink = 0.6 oz pur e alcohol) on occassion only [facility] Utilities Answer Date Recorded In the past 12 months has [employer] electric, gas, oil, or water company threatened [...] AM EDT Office Visit Hematology/Oncology at [address] [phone] Boy Tovar MD [facility] DR [place] [address] 10/17/2023 9:00 AM EDT Infusion Hematology Oncology at [address] [phone] documented as of this encounter Visit Diagnoses Not on filedocumented in this encounter Care Teams Infection Control Specialist Relationship Specialty Start Date End Date Nick Martinez MD [address] [place] [address] PCP - General Internal Medicine 07/01/18 documented as of this encounter
--- OUTSIDE RECORDS SUMMARY | 2023-10-17 03:57 | XMS_ITS | Encounter Summary ---
Author Organization [facility] [place] [address] Care Team Providers Care Irrigation Equipment Mechanic Name Role Phone Nick Martinez MD Primary Care Provider [phone] Encounter Details Date Type Department Care Team (Late st Contact Info) Description 09/05/2023 Notes Only Hematology/Oncology at [address] [phone] Azalea Watkins, GROUNDS MAINTENANCE MANAGER OFFICE OF CARE MANAGEMENT Social History Tobacco Use Types Packs/Day Years Used Date Smoking Tobacco: Former Smokeless Tobacco: Current Chew Comments:1 can per day. Plan s to quit today 02/04/21 Alcohol Use Standard Drinks/Week Comments Yes 0 (1 standard drink = 0.6 oz pur e alcohol) on occassion only [facility] Utilities Answer Date Recorded In the past 12 months has [employer] electric, gas, oil, or water company threatened [...] Progress Notes * Azalea Watkins MSW - 09/05/2023 11:32 AM EDT Follow up with Raffy during his infusion visit. He indicated he is doing fairly well. He is managing day to day at home. He keeps as active and busy as he feels up to. He has support from his family. He did not identify any specific needs. Offered support. Will follow as indicated. Brief assessment Supportive Counseling documented in this encounter Plan of Treatment Upcoming Encounters Date Type Department Care Team (Late st Contact Info) Description 10/17/2023 8:30 AM EDT Office Visit Hematology/Oncology at [address] [phone] Boy Tovar MD [facility] DR HEMATOLOGY [place] [address] 10/17/2023 9:00 AM EDT Infusion Hematology Oncology at [address] [phone] documented as of this encounter Visit Diagnoses Not on filedocumented in this encounter Care Teams Irrigation Equipment Mechanic Relationship Specialty Start Date End Date Nick Martinez MD [address] [place] [address] PCP - General Internal Medicine 07/01/18 documented as of this encounter
--- OUTSIDE RECORDS SUMMARY | 2023-10-17 03:57 | XMS_ITS | Encounter Summary ---
[place] [address] Care Team Providers Care Airflight Attendants Supervisor Name Role Phone Nick Martinez MD Primary Care Provider [phone] Encounter Details Date Type Department Care Team (Late st Contact Info) Description 07/18/2023 Telephone Hematology [place] [phone] Sandra Brito, RN Social History Tobacco Use Types Packs/Day Years Used Date Smoking Tobacco: Former Smokeless Tobacco: Current Chew Comments:1 can per day. Plan s to quit today 02/04/21 Alcohol Use Standard Drinks/Week Comments Yes 0 (1 standard drink = 0.6 oz pur e alcohol) on occassion only [facility] Utilities Answer Date Recorded In the past 12 months has [employer], gas, oil, or water [employer] threatened to shut off services in your [...] Telephone Encounter - Sandra Brito RN - 07/18/2023 2:03 PM EDT Message received from church secretary: Sister on the line reporting SOB. Spoke with patient's sister, Hawa, who is very concerned about Raffy. She reported patient was seen in the ED yesterday at [facility] for significant shortness of breath, even at rest, and terrible cough that she stated is nearly non-stop. Workup was negative for RSV/COVID/FLU and no imaging was done since patient just had a CT. He was started on Erythromycin QD and Cefpodoxime BID yesterday for possible pneumonia, but sister reports his symptoms are even worse today. Reported he is using his albuterol inhaler a lot, but it isn't helping. She stated patient is very frustrated and resistant to going back to ED for further evaluation. She was advised an update will be sent to his provider and we will follow up with patient. She was advised to call back for any additional questions or concerns. Update sent to Donaldo Diego APRN. Received notification from Donaldo Diego APRN that this was handled in [facility] and no further action is required at this time. documented in this encounter Plan of Treatment Upcoming Encounters Date Type Department Care Team (Late st Contact Info) Description 10/17/2023 8:30 AM EDT Office Visit Hematology/Oncology at [address] [phone] Boy Tovar MD [facility] HEMATOLOGY [place] [address] 10/17/2023 9:00 AM EDT Infusion Hematology Oncology at [address] [phone] documented as of this encounter Visit Diagnoses Not on filedocumented in this encounter Care Teams Airflight Attendants Supervisor Relationship Specialty Start Date End Date Nick Martinez MD [address] [place] [address] PCP - General Internal Medicine 07/01/18 documented as of this encounter
--- OUTSIDE RECORDS SUMMARY | 2023-10-17 03:57 | XMS_ITS | Encounter Summary ---
[place] [address] Care Team Providers Care Marking Clerk Name Role Phone Nick Martinez MD Primary Care Provider Encounter Details Date Type Department Care Team (Late st Contact Info) Description 07/15/2023 2:05 PM EDT Ancillary Procedure [place] [phone] Nick Martinez MD [address] [place] [address] Social History Tobacco Use Types Packs/Day Years Used Date Smoking Tobacco: Former Smokeless Tobacco: Current Chew Comments:1 can per day. Plan s to quit today 02/04/21 Alcohol Use Standard Drinks/Week Comments Yes 0 (1 standard drink = 0.6 oz pur e alcohol) on occassion only [facility] Utilities Answer Date Recorded In the past 12 months has [employer] electric, gas, oil, or water company [...] 8:30 AM EDT Office Visit Hematology/Oncology at [address] [phone] Boy Tovar MD [facility] DR HEMATOLOGY [place] [address] 10/17/2023 9:00 AM EDT Infusion Hematology Oncology at [address] [phone] documented as of this encounter Procedures Procedure Name Priority Date/Time Associated Diagnosis Comments FILM LIBRARY STORAGE ONLY CT CHEST ABDOMEN PELVIS Routine 07/15/2023 2:00 PM EDT documented in this encounter Results * Film Library- Storage Only CT Chest Abdomen Pelvis (07/15/2023 2:00 PM EDT) Narrative [facility] - 07/15/2023 2:00 PM EDT This exam is auto-finalizing. It's purpose is for storage only. Nick Martinez MD IM FILM LIBRARY ORD ERABLES [facility] Organization Address City/State/ZIP Co de Phone Number [place], [place] documented in this encounter Visit Diagnoses Not on filedocumented in this encounter Care Teams Marking Clerk Relationship Specialty Start Date End Date Nick Martinez MD [address] [place] [address] PCP - General Internal Medicine 07/01/18 documented as of this encounter
--- OUTSIDE RECORDS SUMMARY | 2023-10-17 03:57 | XMS_ITS | Encounter Summary ---
Author Organization [facility] [place] [address] Care Team Providers Care Supply Controller Name Role Phone Nick Martinez MD Primary Care Provider [phone] Reason for Visit * Reason Onset Date Comments Follow-up 08/31/2023 Encounter Details Date Type Department Care Team (Late st Contact Info) Description 08/31/2023 Telephone Hematology/Oncology at [address] [phone] Mannie Taylor RN Follow-up Social History Tobacco Use Types Packs/Day Years Used Date Smoking Tobacco: Former Smokeless Tobacco: Current Chew Comments:1 can per day. Plan s to quit today 02/04/21 Alcohol Use Standard Drinks/Week Comments Yes 0 (1 standard drink = 0.6 oz pur e alcohol) on occassion only [facility] Utilities Answer Date Recorded In the past 12 months has [employer], gas, oil, or water [employer] threatened to shut off services in your [...] encounter Miscellaneous Notes * Telephone Encounter - Mannie Taylor RN - 08/31/2023 12:46 PM EDT Called and LM for pt to return call to discuss. ----- Message from Janeth Sanchez sent at 08/31/2023 10:01 AM EDT ----- Raffy called in looking to speak to Bisi, he talked about an appointment but would not give me any other info about why he needed to speak to her... just that he needed to Best call back number [phone] documented in this encounter Plan of Treatment Upcoming Encounters Date Type Department Care Team (Late st Contact Info) Description 10/17/2023 8:30 AM EDT Office Visit Hematology/Oncology at [address] [phone] Boy Tovar MD [facility] HEMATOLOGY [place] [address] 10/17/2023 9:00 AM EDT Infusion Hematology Oncology at [address] [phone] documented as of this encounter Visit Diagnoses Not on filedocumented in this encounter Care Teams Supply Controller Relationship Specialty Start Date End Date Nick Martinez MD [address] [place] [address] PCP - General Internal Medicine 07/01/18 documented as of this encounter
--- OUTSIDE RECORDS SUMMARY | 2023-10-17 03:57 | XMS_ITS | Encounter Summary ---
Author Organization [facility] [place] [address] Care Team Providers Care Cleaning Custodian Name Role Phone Nick Martinez MD Primary Care Provider [phone] Reason for Visit * Reason Comments Chemotherapy * Treatment/Therapy Plan Authorization (Routine) - Authorized [...] HCL, 25MCG, INJECTION (ALOXI) Boy Tovar MD [address] [place] [address] [place] [address] Boy Tovar MD [address] [place] [address] DR [place] [address] Referral ID Status Reason Start Date Expiration Date V isits Requested Visits Authorized [id number] Authorized 06/27/2023 10/27/2023 99 99 Encounter Details Date Type Department Care Team (Late st Contact Info) Description 07/25/2023 2:00 PM EDT Infusion Hematology Oncology at [address] [phone] Secondary malignant neoplasm of brain; Primary malignant 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 Social History Tobacco Use Types Packs/Day Years Used Date Smoking Tobacco: Former Smokeless Tobacco: Current Chew Comments:1 can per day. Plan s to quit today 02/04/21 Alcohol Use Standard Drinks/Week Comments Yes 0 (1 standard drink = 0.6 oz pur e alcohol) on occassion only [facility] Utilities Answer Date Recorded In the [...] as of this encounter Progress Notes * Angelito Isaac, RN - 07/25/2023 2:00 PM EDT Raffy Latif, 62 y.o. male with diagnosis of lung cancer is here for chemotherapy infusion of Carbo/Pem/Pem. PROTOCOL: na CYCLE: 1 DAY: 1 S: Pt. offers no complaints at this time. Reviewed plan of care for infusion visit, patient verbalized understanding of plan as outlined. O: Chemotherapy orders independently verified for correct drug name, route and dosage per patient'sheight, weight and BSA by ANGELITO ISAAC, RN, RN and onsite pharmacist. Chemotherapy administeredper protocol. REACTIONS (DESCRIPTION, TIME, INTERVENTION AND EFFECTIVENESS) none A: Pt. Tolerated treatment with out issue. Raffy Latif confirms that all questions and issues have been addressed. documented in this encounter Plan of Treatment Upcoming Encounters Date Type Department Care Team (Late st Contact Info) Description 10/17/2023 8:30 AM EDT Office Visit Hematology/Oncology at [address] [phone] Boy Tovar MD [facility] DR HEMATOLOGY [place] [address] 10/17/2023 9:00 AM EDT Infusion Hematology Oncology at [address] [phone] documented as of this encounter Visit Diagnoses [...] over 2 Minutes, ONCE, 1 dose, On 07/25/23 at 1445, Alternative administration of IV push over 2 minutes is a recommendation from the coding consultant. Administer prior to chemotherapy., Routine Given 07/25/2023 2:37 PM EDT 130 mg CARBOplatin (Paraplatin) 631 mg in dextrose 5% 313.1 mL infusion 631 mg (Target AUC = 5), Intravenous, ONCE, 1 dose, On Tue07/25/23 at 1545, Administer over 30 Minutes, Warning Vesicant/Irritant Medication New Bag 07/25/2023 3:52 PM EDT 631 mg 626.2 mL/hr cyanocobalamin (Vitamin B-12) (1,000 mcg/mL) injection 1,000 mcg 1,000 mcg, Subcutaneous, ONCE, 1 dose, On Tue07/25/23 at 1445, Administer prior to PEMEtrexed. Recommended dose is 1,000 mcg every 9 weeks. Confirm last date of Vitamin B12 administration., Routine Given 07/25/2023 2:37 PM EDT 1,000 mcg Right Arm dexAMETHasone (Decadron) tablet 10 mg 10 mg, Oral, ONCE, 1 dose, On Tue07/25/23 at 1445, Administer prior to chemotherapy, Routine Given 07/25/2023 2:35 PM EDT 10 mg palonosetron (Aloxi) (0.05 mg/mL) injection 0.25 mg 0.25 mg, Intravenous, ONCE, 1 dose, On Tue07/25/23 at 1445, Administer over 30 seconds., Routine Given 07/25/2023 2:36 PM EDT 0.25 mg pembrolizumab (Keytruda) 200 mg in sodium chloride 0.9% 108 mL infusion 200 mg, Intravenous, ONCE, 1 dose, On Tue07/25/23 at 1545, Administer over 30 Minutes, Flush Line with NS after each dose, This agent is restricted to outpatient use. Is this drug being given as an outpatient? Yes New Bag 07/25/2023 2:57 PM EDT 200 mg 216 mL/hr PEMEtrexed disodium (Alimta) 1,200 mg in sodium chloride 0.9% 148 mL infusion 1,200 mg (rounded from 1,250 mg = 500 mg/m2/dose ? 2.5 m2 Treatment Plan BSA from Recorded weight), Intravenous, ONCE, 1 dose, On Tue07/25/23 at 1545, Administer over 10 Minutes New Bag 07/25/2023 3:38 PM EDT 1,200 mg 888 mL/hr documented in this encounter Care Teams Cleaning Custodian Relationship Specialty Start Date End Date Nick Martinez MD [address] [place] [address] PCP - General Internal Medicine 07/01/18 documented as of this encounter
--- OUTSIDE RECORDS SUMMARY | 2023-10-17 03:57 | XMS_ITS | Encounter Summary ---
[place] [address] Care Team Providers Care Automatic Cigar Wrapper Tender Name Role Phone Nick Martinez MD Primary Care Provider Reason for Referral * Diagnostic Test (Routine) - New Request Specialty Diagnoses / Procedures Referred By Mariana workman Referred To Contact Radiology Diagnoses Secondary malignant neoplasm of brain Procedures MRI Brain wwo Contrast (Generic) Carlos Marie MD [facility] [place] [address] [place] [address] Referral ID Status Reason Start Date Expiration Date Visits Requested Visits Authorized [id number] New Request Specialty Service Requested 08/25/2023 02/23/2025 1 1 Reason for Visit * Reason Comments Follow-up Encounter Details Date Type Department Care Team (Late st Contact Info) Description 08/18/2023 10:00 AM EDT Office Visit [place] [address] Carlos Marie MD [facility] [address] Secondary malignant neoplasm of brain Social History Tobacco Use Types Packs/Day Years Used Date Smoking Tobacco: Former Smokeless Tobacco: Current Chew Comments:1 can per day. Plan s to quit today 02/04/21 Alcohol Use Standard Drinks/Week Comments Yes 0 (1 standard drink = 0.6 oz pur e alcohol) on occassion only [facility] Utilities Answer Date Recorded In the [...] place to sleep or slept in a usp (including now)? No 04/29/2023 Sex and Gender Information Value Date Recorded Sex Assigned at Not on file Gender Identity Not on file Sexual Orientation Not on file documented as of this encounter Last Filed Vital Signs Vital Sign Reading Time Taken Comments Blood Pressure 127/68 08/18/2023 9:41 AM EDT Pulse 96 08/18/2023 9:41 AM EDT Temperature 36.5 ??C (97.7 ??F) 08/18/2023 9:41 AM ED T Respiratory Rate 20 08/18/2023 9:41 AM EDT Oxygen Saturation 100% 08/18/2023 9:41 AM EDT Inhaled Oxygen Concentration - - Weight 124.6 kg (274 lb 11.1 oz) 08/18/2023 9:41 AM EDT Height - - Body Mass Index 38.46 08/17/2023 8:28 AM EDT documented in this encounter Progress Notes * Carlos Marie MD - 08/18/2023 10:00 AM EDT Images from the original note were not included. [facility] Radiation Oncology Radiation Oncology Follow-Up Report n Patient identifiers/demographics: Name: Raffy Latif Date of : Primary oncologist: Agustin Tovar MD Primary care physician: Nick Martinez MD Chief complaint/reason for visit: Brain metastasis - NSCLC n Clinical history/background: Treatment History: Diagnosed with stage III lung cancer in 01/2021. 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 He is doing pretty well. He is off of steroids. His cramping pains have resolved and he not needing to take baclofen any longer. No Has. MRI brain was done 08/12/2023 and it showed an excellent response at the treated site and no new brain metastases. Pre-treatment Current I have personally reviewed the imaging studies referenced above. Medications/Allergies: Current Outpatient Medications: loratadine (Claritin) 10 mg Tablet, Take 10 mg by mouth daily., Disp: , Rfl: folic acid (Vitamin B9) 1 mg tablet, Take 1 tablet by mouth daily., Disp: 90 tablet, Rfl: 3 LORazepam (Ativan) 1 mg tablet, Take 1 tablet by mouth every 6 hours as needed for Anxiety., Disp: 15 tablet, Rfl: 0 levETIRAcetam (Keppra) 500 mg tablet, Take 1 tablet by mouth 2 times daily., Disp: 60 tablet, Rfl: 3 omeprazole (PriLOSEC) [address] capsule, Take 40 mg by mouth daily., Disp: , Rfl: Advair HFA 115-21 mcg/actuation HFA Aerosol Inhaler, Inhale 2 puffs into the lungs 2 times daily., Disp: , Rfl: albuteroL 90 mcg/actuation HFA Aerosol Inhaler, Inhale 2 puffs into the lungs every 4 hours as needed for Wheezing. Use with spacer, Disp: 1 each, Rfl: 1 acetaminophen (Tylenol) 500 mg Tablet, Take 1,000 mg by mouth every 6 hours as needed for Pain., Disp: , Rfl: prochlorperazine (Compazine) 10 mg tablet, Take 1 tablet by mouth every 6 hours as needed for Nausea. (Patient not taking: Reported on 08/18/2023), Disp: 30 tablet, Rfl: 3 Allergies Allergen Reactions Penicillins Nausea Only Physical Exam: No data found. NAD NCAT Neuro exam non-focal Performance status: KPS 90-100% ECOG 0 Fully active, able to carry on all pre-disease performance without restriction n Summary/Recommendations: Impression: Raffy Latif has had a good response after fractionated SRS for left frontal brain metastasis. MRI shows significant reduction in the tumor and resolution of anali-tumoral edema. His symptoms have also resolved. Currently he is getting systemic treatments up in [facility]. Status: On-treatment (recurrence) Plan: MRI brain in 3-4 months and FU with [facility]. Systemic treatment to continue per medical oncology Carlos Marie MD [facility] Radiation Oncology [employer] (NCI) [facility] [employer] Commission on Cancer (ACS [employer]) Accredited Cancer Program [employer] (A[employer]) Accredited Radiation Oncology Program documented in this encounter Plan of Treatment Upcoming Encounters Date Type Department Care Team (Late st Contact Info) Description 10/17/2023 8:30 AM EDT Office Visit Hematology/Oncology at [address] [phone] Boy Tovar MD [facility] [place] [address] 10/17/2023 9:00 AM EDT Infusion Hematology Oncology at [address] [phone] Scheduled Orders Name Type Priority Associated Diagnoses Orde r Schedule MRI Brain wwo Contrast (Generic) Imaging Routine Secondary malignant neoplasm of brain Expected: 11/25/2023, Expires: 12/25/2023 documented as of this encounter Visit Diagnoses [...] gland documented in this encounter Care Teams Automatic Cigar Wrapper Tender Relationship Specialty Start Date End Date Nick Martinez MD [address] [place] [id number] PCP - General Internal Medicine 07/01/18 documented as of this encounter
--- OUTSIDE RECORDS SUMMARY | 2023-10-17 03:57 | XMS_ITS | Encounter Summary ---
Author Organization [facility] [place] [address] Care Team Providers Care Wood Preparation Supervisor Name Role Phone Nick Martinez MD Primary Care Provider [phone] Reason for Visit * Reason Comments Medication Refill Encounter Details Date Type Department Care Team (Late st Contact Info) Description 09/05/2023 Refill [place] [address] Rosalie Samano MD [facility] [place] [address] Social History Tobacco Use Types Packs/Day Years Used Date Smoking Tobacco: Former Smokeless Tobacco: Current Chew Comments:1 can per day. Plan s to quit today 02/04/21 Alcohol Use Standard Drinks/Week Comments Yes 0 (1 standard drink = 0.6 oz pur e alcohol) on occassion only [facility] Utilities Answer Date Recorded In the past 12 months has [employer] electric, gas, oil, or water company threatened [...] place to sleep or slept in a chcf (including now)? No 04/29/2023 Sex and Gender Information Value Date Recorded Sex Assigned at Not on file Gender Identity Not on file Sexual Orientation Not on file documented as of this encounter Plan of Treatment Upcoming Encounters Date Type Department Care Team (Late st Contact Info) Description 10/17/2023 8:30 AM EDT Office Visit Hematology/Oncology at [address] [phone] Boy Tovar MD [facility] [place] [address] 10/17/2023 9:00 AM EDT Infusion Hematology Oncology at [address] [phone] documented as of this encounter Visit Diagnoses Not on filedocumented in this encounter Care Teams Wood Preparation Supervisor Relationship Specialty Start Date End Date Nick Martinez MD [address] [place] [address] PCP - General Internal Medicine 07/01/18 documented as of this encounter
--- OUTSIDE RECORDS SUMMARY | 2023-10-17 03:57 | XMS_ITS | Encounter Summary ---
Author Organization [facility] [place] [address] Care Team Providers Care Lens Molder Name Role Phone Nick Martinez MD Primary Care Provider Reason for Visit * Reason Comments Chemotherapy [...] HCL, 25MCG, INJECTION (ALOXI) Boy Tovar MD [address] [place] [address] DR [place] [address] Boy Tovar MD [address] [place] [address] DR HEMAT[place]Y [place] [address] Referral ID Status Reason Start Date Expiration Date V isits Requested Visits Authorized [id number] Authorized 06/27/2023 10/27/2023 99 99 Encounter Details Date Type Department Care Team (Late st Contact Info) Description 09/26/2023 9:00 AM EDT Infusion Hematology Oncology at [address] [phone] Secondary malignant neoplasm of brain; Primary malignant 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; Hypomagnesemia Social History Tobacco Use Types Packs/Day Years Used Date Smoking Tobacco: Former Smokeless Tobacco: Current Chew Comments:1 can per day. Plan s to quit today 02/04/21 Alcohol Use Standard Drinks/Week Comments Yes 0 (1 standard drink = 0.6 oz pur e alcohol) on occassion only [facility] Utilities Answer Date Recorded In the past [...] Progress Notes * Angelito Isaac, RN - 09/26/2023 9:00 AM EDT INFUSION THERAPY ADMINISTRATION NOTES DIAGNOSIS: NSCLC CYCLE #: Cycle 4, Day 1 - Pembrolizumab, Pemetrexed, Carboplatin, + IV mag REASON FOR VISIT: To receive scheduled chemotherapy. SUBJECTIVE: Raffy offers no complaints. OBJECTIVE: Seen by provider. Ready to treat. LAB DATA: completed at [facility] adequate for treatment IV ACCESS: PIV Pre administration: Chemotherapy orders independently verified for drug name, route, and dosage per patient's height, weight and BSA by ANGELITO ISAAC, RN and Staff Pharmacist(s). REACTIONS (DESCRIPTION, TIME, INTERVENTION AND EFFECTIVENESS) none ASSESSMENT: Raffy was awake, alert and tolerated treatment well. PIV discontinued prior to dismissal. PLAN: Return to clinic in three weeks. documented in this encounter Plan of Treatment Upcoming Encounters Date Type Department Care Team (Late st Contact Info) Description 10/17/2023 8:30 AM EDT Office Visit Hematology/Oncology at [address] [phone] Boy Tovar MD 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 Administer prior to chemotherapy., Routine Given 09/26/2023 9:17 AM EDT 130 mg CARBOplatin (Paraplatin) 666 mg in dextrose 5% 316.6 mL infusion 666 mg (Target AUC = 5), Intravenous, ONCE, 1 dose, On Tue09/26/23 at 1015, Administer over 30 Minutes, Warning Vesicant/Irritant Medication New Bag 09/26/2023 10:30 AM EDT 666 mg 633.2 mL/hr dexAMETHasone (Decadron) tablet 10 mg 10 mg, Oral, ONCE, 1 dose, On Tue09/26/23 at 0915, Administer prior to chemotherapy, Routine Given 09/26/2023 9:10 AM EDT 10 mg magnesium sulfate 2 g in sterile water 50 mL infusion 2 g, Intravenous, ONCE, 1 dose, On Tue09/26/23 at 0915, Administer over 120 Minutes Restarted 09/26/2023 10:10 AM EDT 25 mL/hr New Bag 09/26/2023 9:20 AM EDT 2 g 25 mL/hr palonosetron (Aloxi) (0.05 mg/mL) injection 0.25 mg 0.25 mg, Intravenous, ONCE, 1 dose, On Tue09/26/23 at 0915, Administer over 30 seconds., Routine Given 09/26/2023 9:10 AM EDT 0.25 mg pembrolizumab (Keytruda) 200 mg in sodium chloride 0.9% 108 mL infusion 200 mg, Intravenous, ONCE, 1 dose, On Tue09/26/23 at 1015, Administer over 30 Minutes, Flush Line with NS after each dose, This agent is restricted to outpatient use. Is this drug being given as an outpatient? Yes New Bag 09/26/2023 9:39 AM EDT 200 mg 216 mL/hr PEMEtrexed disodium (Alimta) 1,200 mg in sodium chloride 0.9% 148 mL infusion 1,200 mg (rounded from 1,250 mg = 500 mg/m2/dose ? 2.5 m2 Treatment Plan BSA from Recorded weight), Intravenous, ONCE, 1 dose, On Tue09/26/23 at 1015, Administer over 10 Minutes New Bag 09/26/2023 10:15 AM EDT 1,200 m g 888 mL/hr documented in this encounter Care Teams Lens Molder Relationship Specialty Start Date End Date Nick Martinez MD [address] [place] [address] PCP - General Internal Medicine 07/01/18 documented as of this encounter
--- OUTSIDE RECORDS SUMMARY | 2023-10-17 03:57 | XMS_ITS | Encounter Summary ---
Author Organization [facility] [place] [place] [address] Care Team Providers Care Motorcycle Subassembly Repairer Name Role Phone Nick Martinez MD Primary Care Provider [phone] Encounter Details Date Type Department Care Team (Latest Contact Info) Description 07/19/2023 Travel Social History Tobacco Use Types Packs/Day Years Used Date Smoking Tobacco: Former Smokeless Tobacco: Current Chew Comments:1 can per day. Plan s to quit today 02/04/21 Alcohol Use Standard Drinks/Week Comments Yes 0 (1 standard drink = 0.6 oz pur e alcohol) on occassion only [facility] Utilities Answer Date Recorded In [...] 8:30 AM EDT Office Visit Hematology/Oncology at [address] [phone] Boy Tovar MD [facility] DR [place] [address] 10/17/2023 9:00 AM EDT Infusion Hematology Oncology at [address] [phone] documented as of this encounter Visit Diagnoses Not on filedocumented in this encounter Care Teams Motorcycle Subassembly Repairer Relationship Specialty Start Date End Date Nick Martinez MD [address] [place] [address] PCP - General Internal Medicine 07/01/18 documented as of this encounter
--- OUTSIDE RECORDS SUMMARY | 2023-10-17 03:57 | XMS_ITS | Encounter Summary ---
Author Organization [facility] [place] [address] Care Team Providers Care Inspector Outside Steam Distribution Name Role Phone Nick Martinez MD Primary Care Provider [phone] Encounter Details Date Type Department Care Team (Latest Contact Info) Description 07/04/2023 Travel Social History Tobacco Use Types Packs/Day Years Used Date Smoking Tobacco: Former Smokeless Tobacco: Current Chew Comments:1 can per day. Plan s to quit today 02/04/21 Alcohol Use Standard Drinks/Week Comments Yes 0 (1 standard drink = 0.6 oz pur e alcohol) on occassion only [facility] Utilities Answer Date Recorded In the [...] 8:30 AM EDT Office Visit Hematology/Oncology at [address] [phone] Boy Tovar MD [facility] [address] [place] [address] 10/17/2023 9:00 AM EDT Infusion Hematology Oncology at [address] [phone] documented as of this encounter Visit Diagnoses Not on filedocumented in this encounter Care Teams Inspector Outside Steam Distribution Relationship Specialty Start Date End Date Nick Martinez MD [address] [place] [address] PCP - General Internal Medicine 07/01/18 documented as of this encounter
--- OUTSIDE RECORDS SUMMARY | 2023-10-17 03:57 | XMS_ITS | Encounter Summary ---
Author Organization [facility] [place] [address] Care Team Providers Care Ivf Embryologist Name Role Phone Nick Martinez MD Primary Care Provider [phone] Encounter Details Date Type Department Care Team (Latest Contact Info) Description 07/25/2023 Travel Social History Tobacco Use Types Packs/Day Years Used Date Smoking Tobacco: Former Smokeless Tobacco: Current Chew Comments:1 can per day. Plan s to quit today 02/04/21 Alcohol Use Standard Drinks/Week Comments Yes 0 (1 standard drink = 0.6 oz pur e alcohol) on occassion only [facility] Utilities Answer Date Recorded In the past [...] place to sleep or slept in a fpc (including now)? No 04/29/2023 Sex and Gender Information Value Date Recorded Sex Assigned at Not on file Gender Identity Not on file Sexual Orientation Not on file documented as of this encounter Plan of Treatment Upcoming Encounters Date Type Department Care Team (Late st Contact Info) Description 10/17/2023 8:30 AM EDT Office Visit Hematology/Oncology at [address] [phone] Boy Tovar MD [facility] DR [place] [address] 10/17/2023 9:00 AM EDT Infusion Hematology Oncology at [address] [phone] documented as of this encounter Visit Diagnoses Not on filedocumented in this encounter Care Teams Ivf Embryologist Relationship Specialty Start Date End Date Nick Martinez MD [address] [place] [address] PCP - General Internal Medicine 07/01/18 documented as of this encounter
--- OUTSIDE RECORDS SUMMARY | 2023-10-17 03:57 | XMS_ITS | Encounter Summary ---
[place] [address] Care Team Providers Care Osha Inspector Name Role Phone Nick Martinez MD Primary Care Provider Encounter Details Date Type Department Care Team (Late st Contact Info) Description 08/12/2023 11:05 AM EDT Ancillary Procedure [place] [address] Nick Martinez MD [address] [place] [address] Social History Tobacco Use Types Packs/Day Years Used Date Smoking Tobacco: Former Smokeless Tobacco: Current Chew Comments:1 can per day. Plan s to quit today 02/04/21 Alcohol Use Standard Drinks/Week Comments Yes 0 (1 standard drink = 0.6 oz pur e alcohol) on occassion only [facility] Utilities Answer Date Recorded In the past 12 months has [employer] electric, gas, oil, or water company threatened [...] 8:30 AM EDT Office Visit Hematology/Oncology at [address] [phone] Boy Tovar MD [facility] DR [place] [address] 10/17/2023 9:00 AM EDT Infusion Hematology Oncology at [address] [phone] documented as of this encounter Procedures Procedure Name Priority Date/Time Associated Diagnosis Comments FILM LIBRARY STORAGE ONLY MR HEAD Routine 08/12/2023 11:03 AM EDT documented in this encounter Results * Film Library- Storage Only MR Head (08/12/2023 11:03 AM EDT) Narrative [facility] - 08/12/2023 11:03 AM EDT This exam is auto-finalizing. It's purpose is for storage only. Nick Martinez MD [facility] FILM LIBRARY ORD ERABLES Performing Organization Address City/State/[facility] Co de Phone Number [place], [place] documented in this encounter Visit Diagnoses Not on filedocumented in this encounter Care Teams Osha Inspector Relationship Specialty Start Date End Date Nick Martinez MD [address] [place] [address] PCP - General Internal Medicine 07/01/18 documented as of this encounter
--- OUTSIDE RECORDS SUMMARY | 2023-10-17 03:57 | XMS_ITS | Encounter Summary ---
[place] [address] Care Team Providers Care Assembler For Puller Over Hand Name Role Phone Nick Martinez MD Primary Care Provider [phone] Encounter Details Date Type Department Care Team (Late st Contact Info) Description 06/23/2023 Telephone [place] [phone] Neha Servin RN Social History Tobacco Use Types Packs/Day Years Used Date Smoking Tobacco: Former Smokeless Tobacco: Current Chew Comments:1 can per day. Plan s to quit today 02/04/21 Alcohol Use Standard Drinks/Week Comments Yes 0 (1 standard drink = 0.6 oz pur e alcohol) on occassion only [facility] Utilities Answer Date Recorded In the past 12 months has [employer], gas, oil, or water [employer] threatened to shut off services in your [...] Telephone Encounter - Neha Servin RN - 06/23/2023 10:55 AM EDT Patient's sister, Hawa, called to ask if Raffy can stop steroid if he is not having any symptoms. T/C to Raffy: He continues to be symptoms free and feeling well. The following instructions regarding his dexamethasone taper from Dr Marie were reviewed and patient was able to read them back to RN. 2mg (1/2 tablet) BID x 5 days 2mg (1/2 tablet) daily x 5 days 2mg (1/2 tablet) qod x one week then stop. He is aware that his follow up MRI is scheduled for August. He will call us with any concerns or questions. documented in this encounter Plan of Treatment Upcoming Encounters Date Type Department Care Team (Late st Contact Info) Description 10/17/2023 8:30 AM EDT Office Visit Hematology/Oncology at [address] [phone] Boy Tovar MD [facility] HEMATOLOGY [place] [address] 10/17/2023 9:00 AM EDT Infusion Hematology Oncology at [address] [phone] documented as of this encounter Visit Diagnoses Not on filedocumented in this encounter Care Teams Assembler For Puller Over Hand Relationship Specialty Start Date End Date Nick Martinez MD [address] [place] [address] PCP - General Internal Medicine 07/01/18 documented as of this encounter
--- OUTSIDE RECORDS SUMMARY | 2023-10-17 03:57 | XMS_ITS | Encounter Summary ---
Author Organization [facility] [place] [address] Care Team Providers Care Supervisor Television Chassis Repair Name Role Phone Nick Martinez MD Primary Care Provider [phone] Reason for Visit * Reason Comments Chemotherapy [...] HCL, 25MCG, INJECTION (ALOXI) Boy Tovar MD [address] [place] [address] DR HEMATOLOGY [place] [address] Boy Tovar MD [address] [place] [address] DR HEMATOLOGY [place] [address] Referral ID Status Reason Start Date Expiration Date V isits Requested Visits Authorized [id number] Authorized 06/27/2023 10/27/2023 99 99 Encounter Details Date Type Department Care Team (Late st Contact Info) Description 09/05/2023 9:30 AM EDT Infusion Hematology Oncology at [address] [phone] Secondary malignant neoplasm of brain; [...] as of this encounter Progress Notes * Maddy Aquino RN - 09/05/2023 9:30 AM EDT INFUSION THERAPY ADMINISTRATION NOTES DIAGNOSIS: NSCLC CYCLE #: Cycle 3, Day 1 - Pembrolizumab, Pemetrexed, Carboplatin + IV mag REASON FOR VISIT: To receive scheduled chemotherapy. SUBJECTIVE: Raffy offers no complaints. OBJECTIVE: Seen by provider. Ready to treat. LAB DATA: completed 09/05/23 at [facility] IV ACCESS: PIV Pre administration: Chemotherapy orders independently verified for drug name, route, and dosage per patient's height, weight and BSA by Maddy Aquino RN and Staff Pharmacist(s). REACTIONS (DESCRIPTION, TIME, INTERVENTION AND EFFECTIVENESS) none ASSESSMENT: Raffy was awake, alert and tolerated treatment well. PIV discontinued prior to dismissal. PLAN: Return to clinic in three weeks. documented in this encounter Plan of Treatment Upcoming Encounters Date Type Department Care Team (Late st Contact Info) Description 10/17/2023 8:30 AM EDT Office Visit Hematology/Oncology at [address] [phone] Boy Tovar MD [facility] DR HEMATOLOGY [place] [address] 10/17/2023 9:00 AM EDT Infusion Hematology Oncology at [address] [phone] documented as of this encounter Visit Diagnoses [...] over 2 Minutes, ONCE, 1 dose, On 09/05/23 at 1030, Alternative administration of IV push over 2 minutes is a recommendation from the blending supervisor. Administer prior to chemotherapy., Routine Given 09/05/2023 10:22 AM EDT 130 mg CARBOplatin (Paraplatin) 631 mg in dextrose 5% 313.1 mL infusion 631 mg (Target AUC = 5), Intravenous, ONCE, 1 dose, On Tue09/05/23 at 1130, Administer over 30 Minutes, Warning Vesicant/Irritant Medication New Bag 09/05/2023 11:51 AM EDT 631 mg 626.2 mL/hr dexAMETHasone (Decadron) tablet 10 mg 10 mg, Oral, ONCE, 1 dose, On Tue09/05/23 at 1030, Administer prior to chemotherapy, Routine Given 09/05/2023 10:15 AM EDT 10 mg magnesium sulfate 1 g in dextrose 5% 100 mL infusion 1 g, Intravenous, ONCE, 1 dose, On Tue09/05/23 at 1015, Administer over 60 Minutes Restarted 09/05/2023 11:50 AM EDT 100 mL/hr New Bag 09/05/2023 10:24 AM EDT 1 g 100 mL/hr palonosetron (Aloxi) (0.05 mg/mL) injection 0.25 mg 0.25 mg, Intravenous, ONCE, 1 dose, On Tue09/05/23 at 1030, Administer over 30 seconds., Routine Given 09/05/2023 10:19 AM EDT 0.25 mg pembrolizumab (Keytruda) 200 mg in sodium chloride 0.9% 108 mL infusion 200 mg, Intravenous, ONCE, 1 dose, On Tue09/05/23 at 1130, Administer over 30 Minutes, Flush Line with NS after each dose, This agent is restricted to outpatient use. Is this drug being given as an outpatient? Yes New Bag 09/05/2023 10:44 AM EDT 200 mg 216 mL/hr PEMEtrexed disodium (Alimta) 1,200 mg in sodium chloride 0.9% 148 mL infusion 1,200 mg (rounded from 1,250 mg = 500 mg/m2/dose ? 2.5 m2 Treatment Plan BSA from Recorded weight), Intravenous, ONCE, 1 dose, On Tue09/05/23 at 1130, Administer over 10 Minutes New Bag 09/05/2023 11:20 AM EDT 1,200 m g 888 mL/hr documented in this encounter Care Teams Supervisor Television Chassis Repair Relationship Specialty Start Date End Date Nick Martinez MD [address] [place] [address] PCP - General Internal Medicine 07/01/18 documented as of this encounter
--- OUTSIDE RECORDS SUMMARY | 2023-10-17 03:58 | XMS_ITS | Encounter Summary ---
[place] [address] Care Team Providers Care Center Medical And Lab Director Name Role Phone Nick Martinez MD Primary Care Provider [phone] Encounter Details Date Type Department Care Team (Late st Contact Info) Description 06/22/2023 Telephone [place]ematology [place] [address] James Javier RN Social History Tobacco Use Types Packs/Day Years Used Date Smoking Tobacco: Former Smokeless Tobacco: Current Chew Comments:1 can per day. Plan s to quit today 02/04/21 Alcohol Use Standard Drinks/Week Comments Yes 0 (1 standard drink = 0.6 oz pur e alcohol) on occassion only [facility] Utilities Answer Date Recorded In the past 12 months has [employer], gas, oil, or water [employer] threatened to shut off services in your [...] encounter Miscellaneous Notes * Telephone Encounter - James Javier RN - 06/22/2023 4:19 PM EDT Message receive from [place]: neuro referral Mich has a question about the script for - baclofen (Lioresal) 10 mg tablet And feels he needs a referral for neurology. - Mich - sister T/C to patient: Call placed to patient who gave me consent to speak with his sister Mich. Call placed to Mcih who reported that patient used to take Baclofen to help with W/charley horse and he doesn't have them anymore. Mich is wondering if patient needs to continue taking Baclofen and if yes he needs a refill. She also reported that patient's hands pain is getting worse and pain is radiating to above his wrists. Dr Wallace suggested in the past neurology consult and Mich is wondering if we can place one. Patient's sister notified that triage nurse would f/u with provider & get back to her. She agreed w/plan. Per Ella:IF he doesn't have the muscle spasms anymore then he doesn't have to take it. He canalso take it only on a PRN basis. Oh nevermind I see it now. I would ask Dr. Marie to place the neuro consult if that is what they are thinking, only because I dont know what the neuro consult is for. WE are not seeing him down in [place] anymore and Rad Onc is doing management right now T/C to patient: Patient's sister mich was notified of above message and agreed w/plan. documented in this encounter Plan of Treatment Upcoming Encounters Date Type Department Care Team (Late st Contact Info) Description 10/17/2023 8:30 AM EDT Office Visit Hematology/Oncology at [address] [phone] Boy Tovar MD [facility] [place] [address] 10/17/2023 9:00 AM EDT Infusion Hematology Oncology at [address] [phone] documented as of this encounter Visit Diagnoses Not on filedocumented in this encounter Care Teams Center Medical And Lab Director Relationship Specialty Start Date End Date Nick Martinez MD [address] [place] [address] PCP - General Internal Medicine 07/01/18 documented as of this encounter
--- OUTSIDE RECORDS SUMMARY | 2023-10-17 03:58 | XMS_ITS | Encounter Summary ---
[place] [address] Care Team Providers Care Eyelet Row Marker Name Role Phone Nick Martinez MD Primary Care Provider [phone] Encounter Details Date Type Department Care Team (Late st Contact Info) Description 06/16/2023 Telephone [place] [address] Justina Kline RN Social History Tobacco Use Types Packs/Day Years Used Date Smoking Tobacco: Former Smokeless Tobacco: Current Chew Comments:1 can per day. Plan s to quit today 02/04/21 Alcohol Use Standard Drinks/Week Comments Yes 0 (1 standard drink = 0.6 oz pur e alcohol) on occassion only [facility] Utilities Answer Date Recorded In the past 12 months has [employer], gas, oil, or water [employer] threatened to shut off services in your [...] encounter Miscellaneous Notes * Telephone Encounter - Justina Kline RN - 06/16/2023 9:50 AM EDT Message: Caller/ Relationship to caller: SISTER EMERY Reason for call: SHOULD HE TAPER OFF STEROIDS? Signs and Symptoms: BLURRY VISION/ FINGERS LOCKING UP Onset of Symptoms: SAME / WITH BLURRY VISION CAN HE HAVE HIS EYES DILATED ON TUESDAY? Meds to help with s/s: Call back number: EMERY [phone] T/C to Emery: Spoke with Emery, verified pt name and . Emery had the following questions: When should patient taper his Dexamethasone again and at what dose? Per Emery, pt started tapering steroid as advised and is doing well with taper, pt currently on 4mg dexamethasone in the morning and 2mg in the evening. Patient still experiencing issues with his hands locking up, difficulty grabbing items and reports pain when this occurs. What provider do you recommend patient sees to discuss these issues? Patient experiencing blurry vision and is scheduled to see eye doctor on Tuesday. Provider wants to know if patient can have his eyes dilated at this appointment. Plan: Message routed to provider. documented in this encounter Plan of Treatment Upcoming Encounters Date Type Department Care Team (Late st Contact Info) Description 10/17/2023 8:30 AM EDT Office Visit Hematology/Oncology at [address] [phone] Boy Tovar MD [facility] DR HEMATOLOGY [place] [address] 10/17/2023 9:00 AM EDT Infusion Hematology Oncology at [address] [phone] documented as of this encounter Visit Diagnoses Not on filedocumented in this encounter Care Teams Eyelet Row Marker Relationship Specialty Start Date End Date Nick Martinez MD [address] [place] [address] PCP - General Internal Medicine 07/01/18 documented as of this encounter
--- OUTSIDE RECORDS SUMMARY | 2023-10-17 03:58 | XMS_ITS | Encounter Summary ---
Author Organization [facility] [place] [address] Care Team Providers Care Accountant Cost Name Role Phone Nick Martinez MD Primary Care Provider [phone] Reason for Visit * Diagnostic Test (STAT) - Closed Specialty Diagnoses / Procedures Referred By Mariana workman Referred To Contact Diagnoses Primary malignant 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 Localized swelling of right lower extremity Procedures Duplex Study for DVT, Bilat legs Ella Jean-Baptiste, [facility] DR [place]ATOLOGY [place] [address] [facility] Vascular Lab [address] [place] [address] Referral ID Status Reason Start Date Expiration Date V isits Requested Visits Authorized [id number] Closed Specialty Service Requested 06/02/2023 06/01/2024 1 1 Encounter Details Date Type Department Care Team (Late st Contact Info) Description 06/02/2023 10:00 AM EDT Tech [place] [address] Saad Sierra [place] Primary malignant neoplasm of right upper lobe [...] on occassion only [facility] Utilities Answer Date Recorded In the [...] place to sleep or slept in a correction (including now)? No 04/29/2023 Sex and Gender Information Value Date Recorded Sex Assigned at Not on file Gender Identity Not on file Sexual Orientation Not on file documented as of this encounter Plan of Treatment Upcoming Encounters Date Type Department Care Team (Late st Contact Info) Description 10/17/2023 8:30 AM EDT Office Visit Hematology/Oncology at [address] [phone] Boy Tovar MD [facility] [place]OLOG[place] [address] 10/17/2023 9:00 AM EDT Infusion Hematology Oncology at [address] [address] documented as of this encounter Procedures Procedure Name Priority Date/Time Associated Diagnosis Comments DUPLEX FOR DVT BILAT LEGS STAT 06/02/2023 9:34 AM EDT Primary malignant 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 Localized swelling of right lower extremity documented in this encounter Results * Duplex Study for DVT, Bilat legs (06/02/2023 9:34 AM EDT) VB Text Report Department: Vascular Surgery Lab Patient: [id number] (RAFFY LENNON) CPT: [id number] Referring Physician: ELLA JEAN-BAPTISTE ?? Phone: Indications: Findings: RIGHT: Patent common femoral vein and popliteal vein with spontaneous, respirophasic Doppler waveforms that respond normally to augmentation maneuvers. The common femoral vein, saphenofemoral junction, femoral vein through the thigh and popliteal vein are fully compressible. Patent posterior tibial and peroneal veins with no evidence of thrombus. LEFT: Patent common femoral vein and popliteal vein with spontaneous, respirophasic Doppler waveforms that respond normally to augmentation maneuvers. The common femoral vein, saphenofemoral junction, femoral vein through the thigh and popliteal vein are fully compressible. Patent posterior tibial and peroneal veins with no evidence of thrombus. Interpretation: RIGHT: ??No evidence of lower extremity deep venous thrombosis. LEFT: ??No evidence of lower extremity deep venous thrombosis. Comparison: ?? No previous study in our vascular lab database for comparison. Electronically Signed by: JOSY WREN on 2023-06-10 07:51:41 AM VASCUBASE VB Text Report End of Report [facility] 06/02/2023 9:34 AM EDT Ella Jean-Baptiste CAR INSTALLATIONS SUPERVISOR VASCULAR ORDERABLE S VASCUBASE documented in this encounter Visit Diagnoses Diagnosis [...] gland documented in this encounter Care Teams Accountant Cost Relationship Specialty Start Date End Date Nick Martinez MD [address] [place] [address] PCP - General Internal Medicine 07/01/18 documented as of this encounter
--- OUTSIDE RECORDS SUMMARY | 2023-10-17 03:58 | XMS_ITS | Encounter Summary ---
[place] [address] Care Team Providers Care Senior Art Director Name Role Phone Nick Martinez MD Primary Care Provider [phone] Encounter Details Date Type Department Care Team (Latest Contact Info) Description 05/23/2023 1:40 PM EDT Laboratory Appointment Lab [address] [place] [address] Secondary malignant neoplasm of brain Social History [...] Recorded In the past 12 months has [employer], gas, oil, or water [employer] threatened to shut off services in your [...] place to sleep or slept in a intermediate (including now)? No 04/29/2023 Sex and Gender Information Value Date Recorded Sex Assigned at Not on file Gender Identity Not on file Sexual Orientation Not on file documented as of this encounter Plan of Treatment Upcoming Encounters Date Type Department Care Team (Late st Contact Info) Description 10/17/2023 8:30 AM EDT Office Visit Hematology/Oncology at [address] [phone] Boy Tovar MD [facility] DR HEMATOLOGY [place] [address] 10/17/2023 9:00 AM EDT Infusion Hematology Oncology at [address] [phone] documented as of this encounter Procedures Procedure Name Priority Date/Time Associated Diagnosis Comments LEVETIRACETAM LEVEL Routine 05/23/2023 1 :48 PM EDT Secondary malignant neoplasm of brain COMPREHENSIVE METABOLIC PANEL Routine 05/23/2023 1:48 PM EDT Secondary malignant neoplasm of brain documented in this encounter Results * (ABNORMAL) Levetiracetam level (05/23/2023 1:48 PM EDT) Levetiracetam Lvl (JULY) 3.7(L) 10.0 - 40.0 mcg/mL [facility] Comment: ADDITIONAL INFORMATION This test was developed and its performance characteristics determined by [facility] in a manner consistent with CLIA requirements. This test has not been cleared or approved by the U.S. Food and Drug Administration. Test Performed by: [facility] [address] [place] [address] Shirt Sewer: Saad Vidal M.D. Ph.D.; CLIA# [id number] Blood 05/23/2023 1:48 PM EDT 05/23/2023 4:09 PM EDT Narrative Resulting Agency Comment Spec In Lab Carlos Marie MD LAB SEND OUT ORDERAB LES [facility] [place] [address] * (ABNORMAL) Comprehensive metabolic panel (non-fasting) (05/23/2023 1:48 PM EDT) Glucose 115 65 - 199 mg/dL [facility] Comment:Diabetes: >=200 mg/d L plus symptoms Blood Urea Nitrogen 18 10 - 20 mg/dL [facility] Creatinine 0.98 0.80 - 1.50 mg/dL [facility] Sodium 137 135 - 145 mmol/L [facility] Potassium 4.1 3.5 - 5.0 mmol/L [facility] Comment: Please note: ??Patients with WBC >100,000 may have falsely elevated Potassium levels. ??For accurate Potassium quantification in these patients send serum separator tube (gold top) for subsequent determinations. ??Contact the Clinical Chemistry Laboratory if there are any questions. Chloride 99 98 - 107 mmol/L [facility] Carbon Dioxide 28 22 - 31 mmol/L [facility] Anion Gap 10 5 - 15 mmol/L [facility] Calcium 9.0 8.5 - 10.5 mg/dL [facility] Protein, Total 6.3 6.1 - 8.0 g/dL [facility] Albumin 4.1 3.2 - 5.2 g/dL [facility] Aspartate Aminotransferase Not Perf 0 - 39 [facility] Comment:Unable to quantitate due to sample hemolysis. Sample redraw suggested. Alanine Aminotransferase 62(H) 0 - 55 unit/L [facility] Alkaline Phosphatase 72 40 - 130 unit/L [facility] Bilirubin, Total 0.3 0.2 - 1.3 mg/dL [facility] Est Glomerular Filtration Rate 86 >=60 mL/min/1. 73 m?? [facility] Comment: This patient's estimated GFR [...] and symptoms in addition to eGFR. Blood 05/23/2023 1:48 PM EDT 05/23/2023 2:09 PM EDT Narrative Resulting Agency Comment Spec In Lab Carlos Marie MD CHEMISTRY ORDERABLES Performing Organization Address City/State/[facility] Co de Phone Number [facility] [place] [address] documented in this encounter Visit Diagnoses Diagnosis Secondary malignant [...] documented in this encounter Care Teams Senior Art Director Relationship Specialty Start Date End Date Nick Martinez MD [address] [place] [address] PCP - General Internal Medicine 07/01/18 documented as of this encounter
--- OUTSIDE RECORDS SUMMARY | 2023-10-17 03:58 | XMS_ITS | Encounter Summary ---
Author Organization [facility] [place] [address] Care Team Providers Care Insulation Worker Furnace Installer Name Role Phone Nick Martinez MD Primary Care Provider [phone] Encounter Details Date Type Department Care Team (Latest Contact Info) Description 05/23/2023 Travel Social History Tobacco Use Types Packs/Day Years Used Date Smoking Tobacco: Former Smokeless Tobacco: Current Chew Comments:1 can per day. Plan s to quit today 02/04/21 Alcohol Use Standard Drinks/Week Comments Yes 0 (1 standard drink = 0.6 oz pur e alcohol) on occassion only [facility] Utilities Answer Date Recorded In the [...] AM EDT Office Visit Hematology/Oncology at [address] [phone] Boy Tovar MD [facility] DR [place] [address] 10/17/2023 9:00 AM EDT Infusion Hematology Oncology at [address] [phone] documented as of this encounter Visit Diagnoses Not on filedocumented in this encounter Care Teams Insulation Worker Furnace Installer Relationship Specialty Start Date End Date Nick Martinez MD [address] [place] [address] PCP - General Internal Medicine 07/01/18 documented as of this encounter
--- OUTSIDE RECORDS SUMMARY | 2023-10-17 03:58 | XMS_ITS | Encounter Summary ---
Author Organization [facility] [place] [address] Care Team Providers Care Steel Detailer Name Role Phone Nick Martinez MD Primary Care Provider [phone] Encounter Details Date Type Department Care Team (Latest Contact Info) Description 05/19/2023 3:15 PM EDT Procedure visit [place] [address] Dimitry Floyd MD 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 Plan s to quit today 02/04/21 Alcohol Use Standard Drinks/Week Comments Yes 0 (1 standard drink = 0.6 oz pur e alcohol) on occassion only [facility] Utilities Answer Date Recorded In [...] as of this encounter Progress Notes * Dimitry Floyd MD - 05/19/2023 3:15 PM EDT Procedure: Stereotactic radiosurgery Pathology: NSCLC Lesions treated: 1 (900 x 3) The patient was brought into the treatment room and laid supine on the [employer] gantry. An open face mask was applied for immobilization. The [employer] system was used to monitor for patient movement during the procedure. A CBCT scan was performed and verified for accuracy and shifts applied. Following confirmation, thefirst two arcs of radiation were administered. Following the couch kick (or perceived patient movement), a subsequent CBCT was acquired and verified for subsequent treatment arcs. Three arcs were used for this treatment The following lesions were treated: PTV Location Dose 1 L post frontal 900 cGy Following treatment the open face mask was removed and the patient was discharged home with no sequelae. documented in this encounter Plan of Treatment Upcoming Encounters Date Type Department Care Team (Late Contact Info) Description 10/17/2023 8:30 AM EDT Office Visit Hematology/Oncology at [address] [phone] Boy Tovar MD 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
--- OUTSIDE RECORDS SUMMARY | 2023-10-17 03:58 | XMS_ITS | Encounter Summary ---
[place] [address] Care Team Providers Care Band Attacher Name Role Phone Nick Martinez MD Primary Care Provider [phone] Encounter Details Date Type Department Care Team (Late st Contact Info) Description 06/01/2023 Telephone [place] [address] James Javier RN Social History Tobacco Use Types Packs/Day Years Used Date Smoking Tobacco: Former Smokeless Tobacco: Current Chew Comments:1 can per day. Plan s to quit today 02/04/21 Alcohol Use Standard Drinks/Week Comments Yes 0 (1 standard drink = 0.6 oz pur e alcohol) on occassion only [facility] Utilities Answer Date Recorded In the past 12 months has [employer], gas, oil, or water [employer] threatened to shut off services in your [...] Telephone Encounter - James Javier RN - 06/01/2023 9:46 AM EDT Message receive from [place]: He is having severe muscle cramps in legs and hands - fabio - sister T/C to patient: Call placed to patient's sister Hawa who reported that Raffy is having severe muscle cramps on b/l leg calves and hands and mostly his right leg. Continuous swelling noted on his right foot. She denied numbness, tingling and any sign of infection. Dr Marie is following patient and prescribed Dexamethasone 4 mg BID yesterday and Bentyl. Hawa spoke with ironer machine on the weekend and he recommended to involve Dr Tovar too. Hawa reported that Dr Marie was thinking to order an US to R/O clot, but it's happening on both legs and hands. Hawa notified that triage nurse would f/u with provider & get back to her. She agreed w/plan. Per Ella:If Raffy would be open to coming down and seeing us tomorrow or next week that might be helpful. We will likely not be able to start with him in [place] for a few weeks. Left message for Hawa to return call T/C to patient: Spoke with Hawa who was notified that Ella and Dr Tovar would like to meet with Raffy either tomorrow or next week to discuss his treatment plan. Hawa is going to discuss with Raffy and is willing to bring him next week. Hawa notified that Dolores is going to call her tomorrow to schedule an appointment and she agreedw/plan. documented in this encounter Plan of Treatment Upcoming Encounters Date Type Department Care Team (Late st Contact Info) Description 10/17/2023 8:30 AM EDT Office Visit Hematology/Oncology at [address] [phone] Boy Tovar MD [facility] [address] [place] [address] 10/17/2023 9:00 AM EDT Infusion Hematology Oncology at [address] [phone] documented as of this encounter Visit Diagnoses Not on filedocumented in this encounter Care Teams Band Attacher Relationship Specialty Start Date End Date Nick Martinez MD [address] [place] [address] PCP - General Internal Medicine 07/01/18 documented as of this encounter
--- OUTSIDE RECORDS SUMMARY | 2023-10-17 03:58 | XMS_ITS | Encounter Summary ---
Author Organization [facility] [place] [address] Care Team Providers Care Manager Fire Name Role Phone Nick Martinez MD Primary Care Provider [phone] Encounter Details Date Type Department Care Team (Latest Contact Info) Description 05/16/2023 Travel Social History Tobacco Use Types Packs/Day Years Used Date Smoking Tobacco: Former Smokeless Tobacco: Current Chew Comments:1 can per day. Plan s to quit today 02/04/21 Alcohol Use Standard Drinks/Week Comments Yes 0 (1 standard drink = 0.6 oz pur e alcohol) on occassion only [facility] Utilities Answer Date Recorded In the [...] 8:30 AM EDT Office Visit Hematology/Oncology at [address] [phone] Boy Tovar MD [facility] [place] [address] 10/17/2023 9:00 AM EDT Infusion Hematology Oncology at [address] [phone] documented as of this encounter Visit Diagnoses Not on filedocumented in this encounter Care Teams Manager Fire Relationship Specialty Start Date End Date Nick Martinez MD [address] [place] [address] PCP - General Internal Medicine 07/01/18 documented as of this encounter
--- OUTSIDE RECORDS SUMMARY | 2023-10-17 03:58 | XMS_ITS | Encounter Summary ---
[place] [address] Care Team Providers Care Manager Trading Name Role Phone Nick Martinez MD Primary Care Provider [phone] Encounter Details Date Type Department Care Team (Late st Contact Info) Description 05/12/2023 Telephone [place] [address] Justina Kline RN Social History Tobacco Use Types Packs/Day Years Used Date Smoking Tobacco: Former Smokeless Tobacco: Current Chew Comments:1 can per day. Plan s to quit today 02/04/21 Alcohol Use Standard Drinks/Week Comments Yes 0 (1 standard drink = 0.6 oz pur e alcohol) on occassion only [facility] Utilities Answer Date Recorded In the past 12 months has [employer], gas, oil, or water [employer] threatened to shut off services in your [...] Telephone Encounter - Justina Kline RN - 05/12/2023 12:09 PM EST Message: Caller/relationship to patient : SISTER Medication to be refilled: [place]STATIN Pharmacy: [facility] Amount (days) remainin Call back number: CALL EMERY FOR APPTS T/C to Emery: Verified patient name and . Per Emery, patient completed nystatin for thrush on Tuesday or Tuesday. Patient complained today of stuff in the back of throat and that he feels like something is in there. Emery states that patient has white patches in throat. Pharmacy: [facility] in [facility]. Plan: Message pended to provider for review. Please follow up with Emery with update as to plan. documented in this encounter Plan of Treatment Upcoming Encounters Date Type Department Care Team (Late st Contact Info) Description 10/17/2023 8:30 AM EDT Office Visit Hematology/Oncology at [address] [phone] Boy Tovar MD [facility] DR [place] [address] 10/17/2023 9:00 AM EDT Infusion Hematology Oncology at [address] [phone] documented as of this encounter Visit Diagnoses Not on filedocumented in this encounter Care Teams Manager Trading Relationship Specialty Start Date End Date Nick Martinez MD [address] [place] [address] PCP - General Internal Medicine 07/01/18 documented as of this encounter
--- OUTSIDE RECORDS SUMMARY | 2023-10-17 03:58 | XMS_ITS | Encounter Summary ---
Author Organization [facility] [place] [address] Care Team Providers Care Repeat Photocomposing Machine Operator Name Role Phone Nick Martinez MD Primary Care Provider [phone] Encounter Details Date Type Department Care Team (Latest Contact Info) Description 05/11/2023 Travel Social History Tobacco Use Types Packs/Day Years Used Date Smoking Tobacco: Former Smokeless Tobacco: Current Chew Comments:1 can per day. Plan s to quit today 02/04/21 Alcohol Use Standard Drinks/Week Comments Yes 0 (1 standard drink = 0.6 oz pur e alcohol) on occassion only [facility] Utilities Answer Date Recorded In the past [...] 8:30 AM EDT Office Visit Hematology/Oncology at [address] [phone] Boy Tovar MD [facility] DR HEMATOLOGY [place] [address] 10/17/2023 9:00 AM EDT Infusion Hematology Oncology at [address] [phone] documented as of this encounter Visit Diagnoses Not on filedocumented in this encounter Care Teams Repeat Photocomposing Machine Operator Relationship Specialty Start Date End Date Nick Martinez MD [address] [place] [address] PCP - General Internal Medicine 07/01/18 documented as of this encounter
--- OUTSIDE RECORDS SUMMARY | 2023-10-17 03:58 | XMS_ITS | Encounter Summary ---
Author Organization [facility] [place] [address] Care Team Providers Care Rehabilitation Center Manager Name Role Phone Nick Martinez MD Primary Care Provider [phone] Encounter Details Date Type Department Care Team (Latest Contact Info) Description 06/02/2023 7:54 AM EDT - 06/02/2023 11:59 PM EDT Hospital Encounter Hematology [place] [phone] Discharge Disposition: Home Social History Tobacco Use Types Packs/Day Years Used Date Smoking Tobacco: Former Smokeless Tobacco: Current Chew Comments:1 can per day. Plan s to quit today 02/04/21 Alcohol Use Standard Drinks/Week Comments Yes 0 (1 standard drink = 0.6 oz pur e alcohol) on occassion only [employer] Utilities Answer Date Recorded In the past 12 months has [employer], gas, oil, or water [employer] threatened to shut off services in your [...] Sig Dispensed Refills Start Date End Date LORazepam (Ativan) 1 mg tablet Take 1 tablet by mouth every 6 hours as needed for Anxiety. 15 tablet 05/25/2023 omeprazole (PriLOSEC) [address] capsule Take 40 mg by mouth daily. 02/22/2023 Advair HFA 115-21 mcg/actuation HFA Aerosol Inhaler Inhale 2 puffs into the lungs 2 times daily. 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 Use with spacer 1 each 1 10/18/2022 acetaminophen (Tylenol) 500 mg Tablet Take 1,000 mg by mouth every 6 hours as needed for Pain. 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 60 tablet 06/02/2023 06/22/2023 dexAMETHasone (Decadron) 4 mg tablet Take 1 tablet by mouth 2 times daily. 60 tablet 05/31/2023 07/25/2023 traZODone (Desyrel) 50 mg tablet Take 1 tablet by mouth nightly. 90 tablet 3 05/25/2023 08/18/2023 dicyclomine (Bentyl) 10 mg capsule Take 1 capsule by mouth 4 times daily as needed. 120 capsule 05/25/2023 08/18/2023 levETIRAcetam (Keppra) 500 mg tablet Take 1 tablet by mouth 2 times daily. 60 tablet 3 05/19/2023 09/12/2023 varenicline (Chantix) 1 mg tablet Take 1 tablet by mouth 2 times daily. 60 tablet 3 05/11/2023 08/17/2023 nystatin (Mycostatin) 100,000 unit/mL Suspension Take 5 mLs by mouth 4 times daily. 60 mL 05/05/2023 08/18/2023 nicotine polacrilex (Commit) 4 mg buccal lozengeIndications:Jj otine dependence with other nicotine-induced disorder, unspecified nicotine product type Place 1 lozenge inside cheek as needed for Smoking cessation (1 lozenge every 1 to 2 hours (maximum: 5 lozenges every 6 hours; 20 lozenges/day). 100 tablet 3 02/08/2023 08/17/2023 nicotine polacrilex (Nicorette) 4 mg gumIndications:Nicotin e dependence with other nicotine-induced disorder, unspecified nicotine product type Take 1 each by mouth as needed for Smoking cessation (Chew 1 piece of gum every 1 to 2 hours (maximum: 24 pieces/day)). 100 tablet 3 02/08/2023 08/17/2023 documented as of this encounter Plan of Treatment Upcoming Encounters Date Type Department Care Team (Late st Contact Info) Description 10/17/2023 8:30 AM EDT Office Visit Hematology/Oncology at [address] [phone] Boy Tovar MD [facility] DR HEMATOLOGY [place] [address] 10/17/2023 9:00 AM EDT Infusion Hematology Oncology at [address] [phone] documented as of this encounter Visit Diagnoses Not on filedocumented in this encounter Care Teams Rehabilitation Center Manager Relationship Specialty Start Date End Date Nick Martinez MD [address] [place] [address] PCP - General Internal Medicine 07/01/18 documented as of this encounter
--- OUTSIDE RECORDS SUMMARY | 2023-10-17 03:58 | XMS_ITS | Encounter Summary ---
[place] [address] Care Team Providers Care Garnishment Specialist Name Role Phone Nick Martinez MD Primary Care Provider [phone] Encounter Details Date Type Department Care Team (Late st Contact Info) Description 05/13/2023 Telephone [place]ematology [place] [address] James Javier RN Social History Tobacco Use Types Packs/Day Years Used Date Smoking Tobacco: Former Smokeless Tobacco: Current Chew Comments:1 can per day. Plan s to quit today 02/04/21 Alcohol Use Standard Drinks/Week Comments Yes 0 (1 standard drink = 0.6 oz pur e alcohol) on occassion only [place] Utilities Answer Date Recorded In the past 12 months has [employer], gas, oil, or water [employer] threatened to shut off services in your [...] place to sleep or slept in a fci (including now)? No 04/29/2023 Sex and Gender Information Value Date Recorded Sex Assigned at Not on file Gender Identity Not on file Sexual Orientation Not on file documented as of this encounter Miscellaneous Notes * Telephone Encounter - James Javier RN - 05/13/2023 9:10 AM EST ----- Message from Vance Marcial sent at 05/13/2023 8:11 AM EST ----- Regarding: Patient having symptoms [phone] Hawa, pt sister, called to report that Raffy is having a muscle spasm in his left hand that is painful, and the cramping in his legs has returned. Message received from [employer]:This is Hawa his sister. No need to call me back concerning my call in question this morning about his hand cramp and leg cramps. He said he's not worried he knows they are just muscle cramps and is going to drink lots of water today. Sorry I bothered you withthis documented in this encounter Plan of Treatment Upcoming Encounters Date Type Department Care Team (Late st Contact Info) Description 10/17/2023 8:30 AM EDT Office Visit Hematology/Oncology at [address] [phone] Boy Tovar MD [facility] HEMATOLOGY [place] [address] 10/17/2023 9:00 AM EDT Infusion Hematology Oncology at [address] [phone] documented as of this encounter Visit Diagnoses Not on filedocumented in this encounter Care Teams Garnishment Specialist Relationship Specialty Start Date End Date Nick Martinez MD [address] [place] [address] PCP - General Internal Medicine 07/01/18 documented as of this encounter
--- OUTSIDE RECORDS SUMMARY | 2023-10-17 03:58 | XMS_ITS | Encounter Summary ---
Author Organization [facility] [place] [address] Care Team Providers Care Circuit Clerk Name Role Phone Nick Martinez MD Primary Care Provider [phone] Encounter Details Date Type Department Care Team (Late st Contact Info) Description 05/29/2023 Telephone Hematology [place] [address] Jama Hayes MD [facility] DR HEMATOLOGY/[place] [address] Social History Tobacco Use Types Packs/Day Years Used Date Smoking Tobacco: Former Smokeless Tobacco: Current Chew Comments:1 can per day. Plan s to quit today 02/04/21 Alcohol Use Standard Drinks/Week Comments Yes 0 (1 standard drink = 0.6 oz pur e alcohol) on occassion only [facility] Utilities Answer Date Recorded In the past 12 months has [employer], gas, oil, or water company threatened [...] 8:30 AM EDT Office Visit Hematology/Oncology at [address] [phone] Boy Tovar MD [facility] DR HEMATOLOGY [place] [address] 10/17/2023 9:00 AM EDT Infusion Hematology Oncology at [address] [phone] documented as of this encounter Visit Diagnoses Not on filedocumented in this encounter Care Teams Circuit Clerk Relationship Specialty Start Date End Date Nick Martinez MD [address] [place] [address] PCP - General Internal Medicine 07/01/18 documented as of this encounter
--- OUTSIDE RECORDS SUMMARY | 2023-10-17 03:58 | XMS_ITS | Encounter Summary ---
[place] [address] Care Team Providers Care Mushroom Press Operator Name Role Phone Nick Martinez MD Primary Care Provider Reason for Visit * Reason Comments Procedure SRS * Consultation (Routine) - Closed Specialty Diagnoses / Procedures Referred By Mariana workman Referred To Contact Radiation Oncology Diagnoses Secondary malignant neoplasm of brain Procedures Simulation for Radiation Therapy Planning Carlos Marie MD [facility] [place] [address] [facility] [place] [address] Referral ID Status Reason Start Date Expiration Date V isits Requested Visits Authorized [id number] Closed Consult, Test & Treat 05/11/2023 06/11/2023 4 4 Encounter Details Date Type Department Care Team (Latest Contact Info) Description 05/23/2023 1:00 PM EDT Procedure visit [place] [address] Carlos Marie MD [facility] [place] [address] Secondary malignant neoplasm of brain Social History Tobacco Use Types Packs/Day Years Used Date Smoking Tobacco: Former Smokeless Tobacco: Current Chew Comments:1 can per day. Plan s to quit today 02/04/21 Alcohol Use Standard Drinks/Week Comments Yes 0 (1 standard drink = 0.6 oz pur e alcohol) on occassion only [facility] Utilities Answer Date Recorded In the [...] Sign Reading Time Taken Comments Blood Pressure 127/69 05/23/2023 12:33 PM EDT Pulse 95 05/23/2023 12:33 PM EDT Temperature 36.9 ??C (98.4 ??F) 05/23/2023 12:33 PM E DT Respiratory Rate - - Oxygen Saturation 98% 05/23/2023 12:33 PM EDT Inhaled Oxygen Concentration - - Weight - - Height - - Body Mass Index - - documented in this encounter Progress Notes * Carlos Marie MD - 05/23/2023 1:00 PM EDT Images from the original note were not included. [facility] Medicine Radiation Oncology Radiation Oncology Hypofractionated Stereotactic Radiosurgery (hfSRS/SBRT) Procedure Note n Patient identifiers/demographics: Name: Raffy Latif Date of : 1960 Chief complaint/reason for visit: NSCLC: brain metastasis n Procedure details: Mr. Latif was in the radiation oncology clinic today for hypofractionated stereotactic radiosurgery (hfSRS) to treat the above diagnosis. he was evaluated pre- treatment in the clinic including a physical examination, and has no contraindications for proceeding with treatment. he was brought to the treatment area and name and were verified as was the site of treatment. he was secured to the treatment table with the previously fashioned aquaplast head immobilizer (ie ope-face mask) per usual routine. IGRT was accomplished with CBCT pre- and intra- fraction as needed. he was monitored continuously with the Vision RT system for excessive motion. A member of our physics team was present to assist with interpretation of positioning data from the VisionRT system as it pertains to Mr. Latif's specific treatmentplan. hfSRS treatment was successfully delivered. I was personally present/supervising for the critical portions of the procedure. In total 1 brain metastases were treated with hfSRS. Treatment was tolerated without incident. n Plan images: Site/Target: Brain Rx: 27Gy 3 fractions Treatment progress: 1 of 3 fractions completed n Notes: Treatment #1: He is still on 4 mg BID of dexamethasone. He is tolerating okay. He had thrush and that was treated with nystatin then diflucan. He is not sleeping well. A sleep aid was offered, but heis not wanting to take one. Treatment #2: He is continuing to have cramps in both hands and his calves. Continues on 4 mg BID of dexamethasone. Also reports AM headaches and fatigue. n Follow-up/plan: Return for next scheduled treatment. Reduce dexamethasone dose to 2mg BID CMP today to check electrolytes; keppra level to see if this is source of his fatigue Instructed to call the clinic with any questions/concerns in the meantime. Carlos Marie MD [facility] Radiation Oncology [facility] [place] ([facility]) [facility] [employer] [place] Commission on Cancer (ACS [place]) Accredited Cancer Program [employer] [place] (ACR) Accredited Radiation Oncology Program documented in this encounter Plan of Treatment Upcoming Encounters Date Type Department Care Team (Late st Contact Info) Description 10/17/2023 8:30 AM EDT Office Visit Hematology/Oncology at [address] [phone] Boy Tovar MD [facility] [address] [place] [address] 10/17/2023 9:00 AM EDT Infusion Hematology Oncology at [address] [phone] documented as of this encounter Results * (ABNORMAL) Comprehensive metabolic panel (non-fasting) (05/23/2023 1:48 PM EDT) Glucose 115 65 - 199 mg/dL [facility] Comment:Diabetes: >=200 mg/d L plus symptoms Blood Urea Nitrogen 18 10 - 20 mg/dL [facility] Creatinine 0.98 0.80 - 1.50 mg/dL [facility] Sodium 137 135 - 145 mmol/L [facility] Potassium 4.1 3.5 - 5.0 mmol/L [facility] Comment: Please note: ??Patients with WBC >100,000 may have falsely elevated Potassium levels. ??For accurate Potassium quantification in these patients send serum separator tube (gold top) for subsequent determinations. ??Contact the Clinical Chemistry Laboratory if there are any questions. Chloride 99 98 - 107 mmol/L [facility] Carbon Dioxide 28 22 - 31 mmol/L [facility] Anion Gap 10 5 - 15 mmol/L [facility] Calcium 9.0 8.5 - 10.5 mg/dL [facility] Protein, Total 6.3 6.1 - 8.0 g/dL [facility] Albumin 4.1 3.2 - 5.2 g/dL [facility] Aspartate Aminotransferase Not Perf 0 - 39 [facility] Comment:Unable to quantitate due to sample hemolysis. Sample redraw suggested. Alanine Aminotransferase 62(H) 0 - 55 unit/L [facility] Alkaline Phosphatase 72 40 - 130 unit/L [facility] Bilirubin, Total 0.3 0.2 - 1.3 mg/dL [facility] Est Glomerular Filtration Rate 86 >=60 mL/min/1. 73 m?? [facility] Comment: This patient's estimated GFR [...] In Lab Carlos Marie MD CHEMISTRY ORDERABLES [facility] [place] [address] * (ABNORMAL) Levetiracetam level (05/23/2023 1:48 PM EDT) Levetiracetam Lvl (JULY) 3.7(L) 10.0 - 40.0 mcg/mL [facility] Comment: ADDITIONAL INFORMATION This test was developed and its performance characteristics determined by [facility] in a manner consistent with CLIA requirements. This test has not been cleared or approved by the U.S. Food and Drug Administration. Test Performed by: [facility] - [address] [address] Air Breaker Operator: Saad Vidal M.D. Ph.D.; CLIA# [id number] Blood 05/23/2023 1:48 PM EDT 05/23/2023 4:09 PM EDT Narrative Resulting Agency Comment Spec In Lab Carlos Marie MD LAB SEND OUT ORDERAB LES [facility] [place] [address] documented in this encounter Visit Diagnoses Diagnosis [...] MAR Action Action Date Dose Rate Site LORazepam (Ativan) tablet 2 mg 2 mg, Oral, ONCE, 1 dose, On Tue05/23/23 at 1300, STAT Given 05/23/2023 12:43 PM EDT 2 mg documented in this encounter Care Teams Mushroom Press Operator Relationship Specialty Start Date End Date Nick Martinez MD [address] [place] [address] PCP - General Internal Medicine 07/01/18 documented as of this encounter
--- OUTSIDE RECORDS SUMMARY | 2023-10-17 03:58 | XMS_ITS | Encounter Summary ---
[place] [address] Care Team Providers Care Cook'S Assistant Name Role Phone Nick Martinez MD Primary Care Provider [phone] Reason for Visit * Reason Onset Date Comments Disability Paperwork 06/14/2023 Encounter Details Date Type Department Care Team (Late st Contact Info) Description 06/14/2023 Telephone Hematology [place] [address] Manjula Liu Disability Paperwork Social History Tobacco Use Types Packs/Day Years Used Date Smoking Tobacco: Former Smokeless Tobacco: Current Chew Comments:1 can per day. Plan s to quit today 02/04/21 Alcohol Use Standard Drinks/Week Comments Yes 0 (1 standard drink = 0.6 oz pur e alcohol) on occassion only [facility] Utilities Answer Date Recorded In the past 12 months has [employer], gas, oil, or water [employer] threatened to shut off services in your [...] * Telephone Encounter - Manjula Liu - 06/14/2023 9:16 AM EDT Disability-Cuna Form completed pending provider review and signature. 06/24/23: Form faxed to [phone] Copy scanned documented in this encounter Plan of Treatment Upcoming Encounters Date Type Department Care Team (Late st Contact Info) Description 10/17/2023 8:30 AM EDT Office Visit Hematology/Oncology at [address] [phone] Boy Tovar MD [facility] HEMATOLOGY [place] [address] 10/17/2023 9:00 AM EDT Infusion Hematology Oncology at [address] [phone] documented as of this encounter Visit Diagnoses Not on filedocumented in this encounter Care Teams Cook'S Assistant Relationship Specialty Start Date End Date Nick Martinez MD [address] [place] [address] PCP - General Internal Medicine 07/01/18 documented as of this encounter
--- OUTSIDE RECORDS SUMMARY | 2023-10-17 03:58 | XMS_ITS | Encounter Summary ---
[place] [address] Care Team Providers Care Healthcare Insurance Sales Agent Name Role Phone Nick Martinez MD Primary Care Provider [phone] Encounter Details Date Type Department Care Team (Late st Contact Info) Description 06/02/2023 Telephone [place] [address] Anahi Cortez RN Social History Tobacco Use Types Packs/Day Years Used Date Smoking Tobacco: Former Smokeless Tobacco: Current Chew Comments:1 can per day. Plan s to quit today 02/04/21 Alcohol Use Standard Drinks/Week Comments Yes 0 (1 standard drink = 0.6 oz pur e alcohol) on occassion only [facility] Utilities Answer Date Recorded In the past 12 months has [employer], gas, oil, or water [employer] threatened to shut off services in your [...] place to sleep or slept in a skilled nursing (including now)? No 04/29/2023 Sex and Gender Information Value Date Recorded Sex Assigned at Not on file Gender Identity Not on file Sexual Orientation Not on file documented as of this encounter Miscellaneous Notes * Telephone Encounter - Anahi Cortez RN - 06/06/2023 12:19 PM EDT Radiation Oncology Open Face Mask SRS Post Procedure Phone Note: Procedure: Stereotactic Radiosurgery using the Open Face Mask x1 completed on 05/25/23 Spoke with: Raffy Message left on answering machine Call attempted - unable to contact patient General condition as stated by the patient or designee: Excellent Good Fair Poor Other x The patient's pain is controlled: YES NO Comments/intervention:n/a Patient reports new or worse neurological signs or symptoms (gait change, headache, nausea/vomiting, blurred vision, seizure): YES NO x Comments/intervention: Patient has questions related to steroid schedule: YES NO x Comments/interventions: Patient knows how to contact us in case of emergency: YES NO x Comments/interventions: Patient had CT head on 05/30/23. Dr. Marie called and discussed results with patient. Also see note from Dr. Samano. Re: resolved sx. ----- Message from Mckenna Swanson sent at 05/30/2023 9:15 AM EDT ----- Regarding: GR pt - right hand concerns Hawa called this morning stating Raffy was instructed to increase his steroids per the merchandise presentation associate MD yesterday and has since developed some right hand weakness this morning. Could someone give Hawa a call to discuss at [phone]. Thanks Mckenna documented in this encounter Plan of Treatment Upcoming Encounters Date Type Department Care Team (Late st Contact Info) Description 10/17/2023 8:30 AM EDT Office Visit Hematology/Oncology at [address] [phone] Boy Tovar MD [facility] DR HEMATOLOGY [place] [address] 10/17/2023 9:00 AM EDT Infusion Hematology Oncology at [address] [phone] documented as of this encounter Visit Diagnoses Not on filedocumented in this encounter Care Teams Healthcare Insurance Sales Agent Relationship Specialty Start Date End Date Nick Martinez MD [address] [place] [address] PCP - General Internal Medicine 07/01/18 documented as of this encounter
--- OUTSIDE RECORDS SUMMARY | 2023-10-17 03:58 | XMS_ITS | Encounter Summary ---
Author Organization [facility] [place] [address] Care Team Providers Care Customer Experience Consultant Name Role Phone Nick Martinez MD Primary Care Provider Reason for Referral * Diagnostic Test (STAT) - Closed Specialty Diagnoses / Procedures Referred By Mariana workman Referred To Contact Diagnoses Primary malignant 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 Localized swelling of right lower extremity Procedures Duplex Study for DVT, Bilat legs Ella Jean-Baptiste APRN [facility] DR HEMATOLOGY [place] [address] [facility] Vascular [facility] [address] [place] [address] Referral ID Status Reason Start Date Expiration Date V isits Requested Visits Authorized [id number] Closed Specialty Service Requested 06/02/2023 06/01/2024 1 1 Reason for Visit * Reason Comments Follow-up Encounter Details Date Type Department Care Team (Late st Contact Info) Description 06/02/2023 9:00 AM EDT Office Visit [place]ology [place] [phone] Boy Tovar MD [facility] DR HEMATOLOGY [place] [address] Ella Jean-Baptiste APRN [facility] DR HEMATOLOGY [place] [address] Primary malignant 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; Localized swelling of right lower extremity Social History Tobacco Use Types Packs/Day Years Used Date Smoking Tobacco: Former Smokeless Tobacco: Current Chew Comments:1 can per day. Plan s to quit today 02/04/21 Alcohol Use Standard Drinks/Week Comments Yes 0 (1 standard drink = 0.6 oz pur e alcohol) on occassion only [facility] Utilities Answer Date Recorded In the [...] Sign Reading Time Taken Comments Blood Pressure 142/87 06/02/2023 8:17 AM EDT Pulse 94 06/02/2023 8:17 AM EDT Temperature 36.6 ??C (97.9 ??F) 06/02/2023 8:17 AM ED T Respiratory Rate 18 06/02/2023 8:17 AM EDT Oxygen Saturation 97% 06/02/2023 8:17 AM EDT Inhaled Oxygen Concentration - - Weight 124.6 kg (274 lb 11.1 oz) 06/02/2023 8:17 AM EDT Height 180 cm (5' 10.87) 06/02/2023 8:17 AM EDT Body Mass Index 38.46 06/02/2023 8:17 AM EDT documented in this encounter Progress Notes * Ella Jean-Baptiste, FAMILY COURT COUNSELLOR - 06/02/2023 9:00 AM EDT Images from the original note were not included. Thoracic Oncology [facility] [place] [phone] Raffy Lennon is being seen for cT1cN3 Stage III-C non small cell lung cancer (adenocarcinoma) Assessment & Plan: Raffy Lennon is a 62 y.o. . male patient [...] neurological symptoms. #Lower Extremity Edema- Duplex US ordered today, no evidence of DVT. Likely related to steroids. - Encouraged supportive care with elevation and compression #Muscle cramping/spacticity- Electrolytes WNL today. Unclear etiology. ? Medication side effect. Did not find dicyclomine helpful. 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 Therefore the plan was to proceed with stereotactic radiation. Completed radiation on 05/25/2023. Today pt reports worsening weakness to the R side. His family expresses concerns that he may fall given his instability with weakness to RLE. He recently did re- increase his dex to 4 mg BID, which the pt does think has helped. - Continue anti-epileptics - Will reach out to radiation oncology in terms of dexamethasone dosing #NSCLC -From appt with Dr. Tovar on 05/11/2023: reviewed the images of the recent PET scan which does raise the concern for extracranial recurrence with thickening of the right adrenal and then some periaortic lymph nodes that are FDG avid. 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 I do not think there easily amenable to biopsy but I discussed myconcerns that this may well represent more disseminated disease. Guardant 360 received, no actionable mutations. Additionally CT CAP completed on 05/30/2023. Review of scan today shows no significant change to adrenal glands or periaortic LN's. - Plan for pt to be seen in [facility] in June to discuss beginning systemic treatment. Likely cabro/pemetrexed/pembro # Tobacco use -discussed this at length and he is motivated and amenable to further intervention. Iprescribed Chantix and discussed the potential side effects. Also recommended that he use lozenges to help with immediate urges and cravings. Ella Jean-Baptiste, MARLENY, FAMILY COURT COUNSELLOR Thoracic Oncology [facility] CC: Serenity Larson APRN HPI/Interval History/Subjective: Last seen 05/11/2023 Since radiation started tapering his steroids. With [...] History/Support Network: Home situation: Lives with in [facility] with [employer]. 35 years. 3 children and plan to adopt another one through foster care. 1 grandchild Employment: [employer] Tobacco use: Quit in 1999. 38 Pk [...] brain was not included in the imaged [id number] on the current study. 08/10/2021 3:38 PM 09/14/2021 3:06 PM 10/12/2021 [...] Encounters: 06/02/23 94 05/25/23 96 05/23/23 95 Body surface area is 2.5 meters squared. Wt Readings from Last 3 Encounters: 06/02/23 [...] totally confined to bed or chair BP 142/87 (Patient Position: Sitting) Pulse 94 Temp 36.6 ??C (97.9 ??F) (Temporal) Resp 18 Ht 180 cm (5' 10.87) Wt 124.6 kg (274 lb 11.1 oz) SpO2 97% BMI 38.46 kg/m?? Physical Exam Constitutional: General: Not in acute distress. Appearance: Normal appearance. Normal weight. Not ill-appearing, toxic-appearing or diaphoretic. HENT: Head: Atraumatic. Eyes: General: No scleral icterus. Right eye: No discharge. Left eye: No discharge. Conjunctiva/sclera: Conjunctivae normal. Pulmonary: Effort: Pulmonary effort is normal. Neurological Unsteady gait. Strength is 3-4/5 to R at the deltoid, biceps, triceps, 4/5 to R quadriceps, hamstring, plantar flexion/dorsiflexion. sensation present and equal bilaterally Extremities +2-3 pitting edema to the RLE, +1 pitting edema to the LLE. No open areas of skin, warmth, or redness. No pain with palpation. No weeping. Review of Laboratory Data: No results found for this or any previous visit (from the past 24 hour(s)). Recent Results (from the past 72 hour(s)) T4, free Result Value Ref Range Free T4 1.07 0.93 - 1.70 ng/dL TSH Result Value Ref Range TSH 3.09 0.27 - 4.20 mcIU/mL Magnesium Result Value Ref Range Magnesium 0.93 0.69 - 1.07 mmol/L Comprehensive metabolic panel (non-fasting) Result Value Ref Range Glucose Lvl 98 65 - 199 mg/dL BUN 21 (H) 10 - 20 mg/dL Creatinine 1.04 0.80 - 1.50 mg/dL Sodium 137 135 - 145 mmol/L Potassium 4.3 3.5 - 5.0 mmol/L Chloride 99 98 - 107 mmol/L CO2 28 22 - 31 mmol/L Anion Gap 10 5 - 15 mmol/L Calcium 9.8 8.5 - 10.5 mg/dL Total Protein 7.1 6.1 - 8.0 g/dL Albumin 4.3 3.2 - 5.2 g/dL AST 24 0 - 39 unit/L ALT 39 0 - 55 unit/L Alk Phos 64 40 - 130 unit/L Total Bilirubin 0.3 0.2 - 1.3 mg/dL Estimated GFR 80 >=60 mL/min/1.73 m?? Hemogram Result Value Ref Range WBC 13.6 (H) 4.0 - 9.5 x10(3)/mcL RBC 4.55 (L) 4.58 - 5.54 x10(6)/mcL Hemoglobin 14.3 13.7 - 16.5 g/dL Hematocrit 39.9 (L) 40.5 - 48.5 % MCV 87.7 82.9 - 93.1 fL MCH 31.4 27.5 - 32.1 pg MCHC 35.8 (H) 32.0 - 35.7 g/dL Platelets 226 145 - 357 x10(3)/mcL RDWSD 43.6 36.0 - 45.0 fL RDWCV 13.6 11.4 - 13.8 % MPV 8.4 7.6 - 12.9 fL nRBC % Auto 0.0 % nRBC Abs Auto 0.000 0.000 - 0.000 x10(3)/mcL Differential, Automated Result Value Ref Range Neutrophils % 77.1 % Neutr Abs (ANC) 10.47 (H) 1.70 - 6.10 x10(3)/mcL Lymphocytes % 6.3 % Lymphocytes Abs 0.8 (L) 0.9 - 3.2 x10(3)/mcL Monocytes % 8.7 % Monocyte Abs 1.2 (H) 0.3 - 0.9 x10(3)/mcL Eosinophils % 0.1 % Eosinophils Abs 0.0 0.0 - 0.4 x10(3)/mcL Basophils % 0.7 % Basophils Abs 0.1 0.0 - 0.1 x10(3)/mcL Immature Gran % 7.10 % Yolanda Gran Abs 0.97 (H) 0.00 - 0.04 x10(3)/mcL Scan, Peripheral Blood Result Value Ref Range Plat Estimate Normal RBC Morphology Abnormal Ovalocytes 1-5 /HPF Duplex Study for DVT, Bilat legs Result Value Ref Range VB Text Report Department: Vascular Surgery Lab Patient: [id number] (RAFFY LENNON) CPT: [id number] Referring Physician: ELLA JEAN-BAPTISTE Phone: Indications: Findings: RIGHT: Patent common femoral [...] with no evidence of thrombus. Interpretation: RIGHT: No evidence of lower extremity deep venous thrombosis. LEFT : No evidence of lower extremity deep venous thrombosis. Comparison: No previous study in our vascular lab database for comparison. VB Text Report End of Report Review of Imaging Data: 02.04.23 CT Chest [...] AM EDT Office Visit Hematology/Oncology at [address] [phone] Boy Tovar MD [facility] DR HEMATOLOGY [place] [address] 10/17/2023 9:00 AM EDT Infusion Hematology Oncology at [address] [phone] documented as of this encounter Results * Duplex Study for DVT, Bilat legs (06/02/2023 9:34 AM EDT) VB Text Report Department: Vascular Surgery Lab Patient: [id number] (RAFFY LENNON) CPT: [id number] Referring Physician: ELLA JEAN-BAPTISTE ?? Phone: Indications: [...] VASCUBASE 06/02/2023 9:34 AM EDT Ella Jean-Baptiste APRN VASCULAR ORDERABLE S VASCUBASE * T4, free (06/02/2023 8:08 AM EDT) Free T4 1.07 0.93 - 1.70 ng/dL [facility] Comment: Reference Interval (ng/dL): Females: ??First Trimester: 0.97-1.68 ??Second Trimester: 0.77-1.51 ??Third Trimester: 0.77-1.49 Blood 06/02/2023 8:08 AM EDT 06/02/2023 8:12 AM EDT Narrative Resulting Agency Comment Spec In Lab Ella Jean-Baptiste APRN CHEMISTRY ORDERABL ES Performing Organization Address City/[facility]/ZIP Co de Phone Number [facility] [place] [address] * TSH (06/02/2023 8:08 AM EDT) Thyroid Stimulating Hormone 3.09 0.27 - 4.20 mcIU/mL [facility] Comment: Reference Interval (mcIU/mL): Females: ??First Trimester: 0.23-3.88 ??Second Trimester: 0.22-3.90 ??Third Trimester: 0.44-4.66 Blood 06/02/2023 8:08 AM EDT 06/02/2023 8:12 AM EDT Narrative Resulting Agency Comment Spec In Lab Ella Jean-Baptiste APRN CHEMISTRY ORDERABL ES [facility] [place] [address] * Magnesium (06/02/2023 8:08 AM EDT) Magnesium 0.93 0.69 - 1.07 mmol/L [facility] Blood 06/02/2023 8:08 AM EDT 06/02/2023 8:12 AM EDT Narrative Resulting Agency Comment Spec In Lab Ella Jean-Baptiste FAMILY COURT COUNSELLOR CHEMISTRY ORDERABL ES [facility] [place] [address] * (ABNORMAL) Comprehensive metabolic panel (non-fasting) (06/02/2023 8:08 AM EDT) Pathologist [facility] Glucose 98 65 - 199 mg/dL [facility] Comment:Diabetes: >=200 mg/d L plus symptoms Blood Urea Nitrogen 21(H) 10 - 20 mg/dL [facility] Creatinine 1.04 0.80 - 1.50 mg/dL [facility] Sodium 137 135 - 145 mmol/L [facility] Potassium 4.3 3.5 - 5.0 mmol/L [facility] Comment: Please note: ??Patients with WBC >100,000 may have falsely elevated Potassium levels. ??For accurate Potassium quantification in these patients send serum separator tube (gold top) for subsequent determinations. ??Contact the Clinical Chemistry Laboratory if there are any questions. Chloride 99 98 - 107 mmol/L [facility] Carbon Dioxide 28 22 - 31 mmol/L [facility] Anion Gap 10 5 - 15 mmol/L [facility] Calcium 9.8 8.5 - 10.5 mg/dL [facility] Protein, Total 7.1 6.1 - 8.0 g/dL [facility] Albumin 4.3 3.2 - 5.2 g/dL [facility] Aspartate Aminotransferase 24 0 - 39 unit/L [facility] Alanine Aminotransferase 39 0 - 55 unit/L [facility] Alkaline Phosphatase 64 40 - 130 unit/L [facility] Bilirubin, Total 0.3 0.2 - 1.3 mg/dL [facility] Est Glomerular Filtration Rate 80 >=60 mL/min/1. 73 m?? [facility] Comment: This patient's estimated GFR [...] Resulting Agency Comment Spec In Lab Ella Jean-Baptiste APRN CHEMISTRY ORDERABL ES [facility] [place] [address] documented in this encounter Visit Diagnoses Diagnosis [...] gland documented in this encounter Care Teams Customer Experience Consultant Relationship Specialty Start Date End Date Nick Martinez MD [address] [place] [address] PCP - General Internal Medicine 07/01/18 documented as of this encounter
--- OUTSIDE RECORDS SUMMARY | 2023-10-17 03:58 | XMS_ITS | Encounter Summary ---
Author Organization [facility] [place] [address] Care Team Providers Care Public Relations Intern Name Role Phone Nick Martinez MD Primary Care Provider [phone] Encounter Details Date Type Department Care Team (Late st Contact Info) Description 06/16/2023 Notes [place] [address] Carlos Marie MD [facility] [place] [address] Social History Tobacco Use Types Packs/Day Years Used Date Smoking Tobacco: Former Smokeless Tobacco: Current Chew Comments:1 can per day. Plan s to quit today 02/04/21 Alcohol Use Standard Drinks/Week Comments Yes 0 (1 standard drink = 0.6 oz pur e alcohol) on occassion only [facility] Utilities Answer Date Recorded In the past 12 months has [employer], gas, oil, or water company threatened [...] as of this encounter Progress Notes * Carlos Marie MD - 06/16/2023 1:15 PM EDT Images from the original note were not included. [facility] Medicine Radiation Oncology Radiation Oncology Telephone Note Patient identifiers/demographics: Name: Raffy Latif Date of : 1960 Spoke to Raffy on the phone re: his steroid taper. Everything going well. He is still having locking of his b/l hands occasionally. He does seem to think that this was an occasional pre-existing symptom. Currently on dexamethasone 4mg AM, 2mg PM. Baclofen BID Plan: Decrease dexamethasone to 2 mg BID Increase baclofen back to TID B/l hand symptoms are not likely related to [employer]ER metastasis due to lack of it being a unilateral symptom. Etiology unclear. Consider referral to neurology if continues or gets worse. Carlos Marie MD [facility] Radiation Oncology documented in this encounter Plan of Treatment Upcoming Encounters Date Type Department Care Team (Late st Contact Info) Description 10/17/2023 8:30 AM EDT Office Visit Hematology/Oncology at [address] [phone] Boy Tovar MD [facility] DR H[facility]ATOLOGY [facility] [place] [address] 10/17/2023 9:00 AM EDT Infusion Hematology Oncology at [address] [phone] documented as of this encounter Visit Diagnoses Not on filedocumented in this encounter Care Teams Public Relations Intern Relationship Specialty Start Date End Date Nick Martinez MD [address] [place] [address] PCP - General Internal Medicine 07/01/18 documented as of this encounter
--- OUTSIDE RECORDS SUMMARY | 2023-10-17 03:58 | XMS_ITS | Encounter Summary ---
Author Organization [facility] [place] [address] Care Team Providers Care Household Appliance Repairer Name Role Phone Nick Martinez MD Primary Care Provider [phone] Reason for Visit * Consultation (Routine) - Closed Specialty Diagnoses / Procedures Referred By Mariana workman Referred To Contact Radiation Oncology Diagnoses Secondary malignant neoplasm of brain Procedures Simulation for Radiation Therapy Planning Carlos Marie MD [facility] [place] [address] [facility] [place] [address] Referral ID Status Reason Start Date Expiration Date V isits Requested Visits Authorized [id number] Closed Consult, Test & Treat 05/11/2023 06/11/2023 4 4 Encounter Details Date Type Department Care Team (Latest Contact Info) Description 05/25/2023 1:00 PM EDT Procedure visit [place] [address] Carlos Marie MD [facility] [place] [address] Secondary malignant neoplasm of brain [...] Sign Reading Time Taken Comments Blood Pressure 140/83 05/25/2023 12:11 PM EDT Pulse 96 05/25/2023 12:11 PM EDT Temperature 35.7 ??C (96.2 ??F) 05/25/2023 12:11 PM E DT Respiratory Rate 18 05/25/2023 12:11 PM EDT Oxygen Saturation 99% 05/25/2023 12:11 PM EDT Inhaled Oxygen Concentration - - Weight - - Height - - Body Mass Index - - documented in this encounter Progress Notes * Carlos Marie MD - 05/25/2023 1:00 PM EDT Images from the original note were not included. [facility] Medicine Radiation Oncology Radiation Oncology Hypofractionated Stereotactic [...] Brain Rx: 27Gy 3 fractions Treatment progress: 3 of 3 fractions completed n Notes: Treatment [...] dexamethasone. Also reports AM headaches and fatigue. Treatment #3: Overall he is feeling worse. He is not sleeping. He has foot/ankle swelling. He is having muscle cramping in both legs and hands. Current dexamethasone dose is 2 mg BID. Jeremie is 500 mg BID with level sub-therapeutic but no recent seizure activity. n Follow-up/plan: Completes treatment today Taper dexamethasone: on 05/30/2023 reduce to 2 mg daily; on 06/06/2023 discontinue Elevate feet, wear compression stockings, activity as tolerated Try dicycolmine (anti-spasmotic) for muscle cramping; eat banana daily; normal fluid intake level Ativan PRN for anxiety Follow up MRI in 2-3 months Carlos Marie MD [facility] Radiation Oncology [facility] [place] ([facility] [employer] Commission on Cancer (ACS [employer]) Accredited Cancer Program [employer] (A[employer]) Accredited Radiation Oncology Program documented in this encounter Plan of Treatment Upcoming Encounters Date Type Department Care Team (Late st Contact Info) Description 10/17/2023 8:30 AM EDT Office Visit Hematology/Oncology at [address] [phone] Boy Tovar MD [facility] HEMATOLOGY [place] [address] 10/17/2023 9:00 AM EDT Infusion Hematology Oncology at [address] [phone] documented as of this encounter Visit Diagnoses [...] 2 mg, Oral, ONCE, 1 dose, On Tue05/25/23 at 1300, STAT Given 05/25/2023 12:40 PM EDT 2 mg documented in this encounter Care Teams Household Appliance Repairer Relationship Specialty Start Date End Date Nick Martinez MD [address] [place] [address] PCP - General Internal Medicine 07/01/18 documented as of this encounter
--- OUTSIDE RECORDS SUMMARY | 2023-10-17 03:58 | XMS_ITS | Encounter Summary ---
Author Organization [facility] [place] [address] Care Team Providers Care Food Cashier Name Role Phone Nick Martinez MD Primary Care Provider Encounter Details Date Type Department Care Team (Late st Contact Info) Description 06/07/2023 Orders Only Hematology/Oncology at [address] [phone] Bisi Hollis APRN [address] [place] [address] DR [place] [address] Primary malignant 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; High risk medication use Social History Tobacco Use Types Packs/Day Years Used Date Smoking Tobacco: Former Smokeless Tobacco: Current Chew Comments:1 can per day. Plan s to quit today 02/04/21 Alcohol Use Standard Drinks/Week Comments Yes 0 (1 standard drink = 0.6 oz pur e alcohol) on occassion only [facility] Utilities Answer Date Recorded In the past [...] 8:30 AM EDT Office Visit Hematology/Oncology at [address] [phone] Boy Tovar MD [facility] HEMATOLOGY [place] [address] 10/17/2023 9:00 AM EDT Infusion Hematology Oncology at [address] [phone] Scheduled Orders Name Type Priority Associated Diagnoses Orde r Schedule Magnesium Lab STAT Primary malignant 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 Once a week for 48 Occurrences starting 06/07/2023 until 06/06/2024 Comprehensive metabolic panel (non-fasting) Lab STAT Primary malignant 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 Once a week for 48 Occurrences starting 06/07/2023 until 06/06/2024 CBC (with Diff) Lab STAT Primary malignant 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 Once a week for 48 Occurrences starting 06/07/2023 until 06/06/2024 TSH Lab STAT High risk medication use Once a week for 42 Occurrences starting 06/07/2023 until 06/06/2024 T4, free Lab STAT High risk medication use Once a week for 42 Occurrences starting 06/07/2023 until 06/06/2024 documented as of this encounter Visit Diagnoses Diagnosis Primary malignant 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 Malignant neoplasm of upper lobe, bronchus or lung High risk medication use Encounter for long-term (current) use of other medications Primary malignant 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 Malignant neoplasm of upper lobe, bronchus or lung Brain metastasis 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
--- OUTSIDE RECORDS SUMMARY | 2023-10-17 03:58 | XMS_ITS | Encounter Summary ---
Author Organization [facility] [place] [address] Care Team Providers Care Motel Food Service Supervisor Name Role Phone Nick Martinez MD Primary Care Provider [phone] Encounter Details Date Type Department Care Team (Late st Contact Info) Description 05/30/2023 3:25 PM EDT Ancillary Procedure [place] [address] Carlos Marie MD [facility] [place] [address] Social History Tobacco Use Types Packs/Day Years Used Date Smoking Tobacco: Former Smokeless Tobacco: Current Chew Comments:1 can per day. Plan s to quit today 02/04/21 Alcohol Use Standard Drinks/Week Comments Yes 0 (1 standard drink = 0.6 oz pur e alcohol) on occassion only [facility] Utilities Answer Date Recorded In the past 12 months has [employer] electric, gas, oil, or water company threatened [...] AM EDT Office Visit Hematology/Oncology at [address] [phone] Boy Tovar MD [facility] DR [place] [address] 10/17/2023 9:00 AM EDT Infusion Hematology Oncology at [address] [phone] documented as of this encounter Procedures Procedure Name Priority Date/Time Associated Diagnosis Comments FILM LIBRARY STORAGE ONLY CT HEAD Routine 05/30/2023 3:22 PM EDT documented in this encounter Results * Film Library- Storage Only CT Head (05/30/2023 3:22 PM EDT) Narrative [facility] RAD - 05/30/2023 3:22 PM EDT This exam is auto-finalizing. It's purpose is for storage only. Carlos Marie MD [facility] FILM LIBRARY ORD ERABLES Performing Organization Address City/State/[facility] Co de Phone Number [place], [place] documented in this encounter Visit Diagnoses Not on filedocumented in this encounter Care Teams Motel Food Service Supervisor Relationship Specialty Start Date End Date Nick Martinez MD [address] [place] [address] PCP - General Internal Medicine 07/01/18 documented as of this encounter
--- OUTSIDE RECORDS SUMMARY | 2023-10-17 03:58 | XMS_ITS | Encounter Summary ---
Author Organization [facility] [place] [address] Care Team Providers Care Distribution Manager Name Role Phone Nick Martinez MD Primary Care Provider [phone] Encounter Details Date Type Department Care Team (Late st Contact Info) Description 06/03/2023 Telephone [place] [address] Rosalie Samano MD [facility] [place] [address] Social History Tobacco Use Types Packs/Day Years Used Date Smoking Tobacco: Former Smokeless Tobacco: Current Chew Comments:1 can per day. Plan s to quit today 02/04/21 Alcohol Use Standard Drinks/Week Comments Yes 0 (1 standard drink = 0.6 oz pur e alcohol) on occassion only [facility] Utilities Answer Date Recorded In the past 12 months has [employer] electric, gas, oil, or water company threatened [...] encounter Miscellaneous Notes * Telephone Encounter - Rosalie Samano MD - 06/03/2023 3:03 PM EDT Spoke with patient over phone to check in regarding symptoms. Reports he is doing very well with resolution of cramping episodes. His swelling has also decreased. He feels comfortable with medicationregimen going into weekend and has our contact information should he have any questions or concerns. I will update Dr. Marie. Rosalie Samano MD Radiation Oncology Resident PGY-2 [facility] Radiation Oncology documented in this encounter Plan of Treatment Upcoming Encounters Date Type Department Care Team (Late st Contact Info) Description 10/17/2023 8:30 AM EDT Office Visit Hematology/Oncology at [address] [phone] Boy Tovar MD [facility] HEMATOLOGY [place] [address] 10/17/2023 9:00 AM EDT Infusion Hematology Oncology at [address] [phone] documented as of this encounter Visit Diagnoses Not on filedocumented in this encounter Care Teams Distribution Manager Relationship Specialty Start Date End Date Nick Martinez MD [address] [place] [address] PCP - General Internal Medicine 07/01/18 documented as of this encounter
--- OUTSIDE RECORDS SUMMARY | 2023-10-17 03:58 | XMS_ITS | Encounter Summary ---
Author Organization [facility] [place] [address] Care Team Providers Care Magazine Filler Name Role Phone Nick Martinez MD Primary Care Provider [phone] Encounter Details Date Type Department Care Team (Late st Contact Info) Description 05/11/2023 8:00 AM EST Ancillary Procedure [place] [address] Carlos Marie MD [facility] DR [place] [address] Social History Tobacco Use Types Packs/Day Years Used Date Smoking Tobacco: Former Smokeless Tobacco: Current Chew Comments:1 can per day. Plan s to quit today 02/04/21 Alcohol Use Standard Drinks/Week Comments Yes 0 (1 standard drink = 0.6 oz pur e alcohol) on occassion only [facility] Utilities Answer Date Recorded In the past 12 months has [employer] electric, gas, oil, or water company threatened [...] 8:30 AM EDT Office Visit Hematology/Oncology at [address] [phone] Boy Tovar MD [facility] DR HEMATOLOGY [place] [address] 10/17/2023 9:00 AM EDT Infusion Hematology Oncology at [address] [phone] Pending Results Name Type Priority Associated Diagnoses Date /Time Film Library Radiation Oncology Studies Imaging Storage Only Routine 05/11/2023 8:40 AM EST documented as of this encounter Visit Diagnoses Not on filedocumented in this encounter Care Teams Magazine Filler Relationship Specialty Start Date End Date Nick Martinez MD [address] [place] [address] PCP - General Internal Medicine 07/01/18 documented as of this encounter
--- OUTSIDE RECORDS SUMMARY | 2023-10-17 03:58 | XMS_ITS | Encounter Summary ---
Author Organization 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 Plan s to quit today 02/04/21 Alcohol Use Standard Drinks/Week Comments Yes 0 (1 standard drink = 0.6 oz pur e alcohol) on occassion only [facility] Utilities Answer Date Recorded In the past [...] Progress Notes * Dimitry Floyd MD - 05/23/2023 1:00 PM EDT Procedure: Stereotactic radiosurgery Pathology: NSCLC Lesions treated: 1 The patient was brought into the treatment room and laid supine on the TrueBeam gantry. An open face mask was applied for immobilization. The [employer] system was used to monitor for patient movement during the procedure. A CBCT scan was performed and verified for accuracy and shifts applied. Following confirmation, thefirst two arcs of radiation were administered. Following any couch kick or perceived patient movement, a subsequent CBCT was acquired and verified for subsequent treatment arcs. The following lesions were treated: PTV Location Dose 1 Post L frontal 900 cGy (1800 cGy total) Following treatment the open face mask was removed and the patient was discharged home with no sequelae. documented in this encounter Plan of Treatment Upcoming Encounters Date Type Department Care Team (Late st Contact Info) Description 10/17/2023 8:30 AM EDT Office Visit Hematology/Oncology at [address] [phone] Boy Tovar MD [facility] DR [place] [address] 10/17/2023 9:00 AM EDT Infusion Hematology Oncology at [address] [phone] documented as of this encounter Visit Diagnoses [...] gland documented in this encounter Care Teams Journeyman Plumber Relationship Specialty Start Date End Date Nick Martinez MD [address] [place] [address] PCP - General Internal Medicine 07/01/18 documented as of this encounter
--- OUTSIDE RECORDS SUMMARY | 2023-10-17 03:58 | XMS_ITS | Encounter Summary ---
Author Organization [facility] [place] [address] Care Team Providers Care Tack Maker Name Role Phone Nick Martinez MD Primary Care Provider [phone] Encounter Details Date Type Department Care Team (Latest Contact Info) Description 05/19/2023 Travel Social History Tobacco Use Types Packs/Day [...] AM EDT Office Visit Hematology/Oncology at [address] [phone] Boy Tovar MD [facility] DR HEMATOLOGY [place] [address] 10/17/2023 9:00 AM EDT Infusion Hematology Oncology at [address] [phone] documented as of this encounter Visit Diagnoses Not on filedocumented in this encounter Care Teams Tack Maker Relationship Specialty Start Date End Date Nick Martinez MD [address] [place] [address] PCP - General Internal Medicine 07/01/18 documented as of this encounter
--- OUTSIDE RECORDS SUMMARY | 2023-10-17 03:58 | XMS_ITS | Encounter Summary ---
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 An open face mask was applied for immobilization. The [email or web address] system was used to monitor for patient [...] Dose 1 L post frontal 900 cGy (2700 total) Following treatment the open face mask was removed and the patient was discharged home with no sequelae. documented in this encounter Plan of Treatment Upcoming Encounters Date Type Department Care Team (Late st Contact Info) Description 10/17/2023 8:30 AM EDT Office Visit Hematology/Oncology at [address] [phone] Boy Tovar MD [facility] DR [place] [address] 10/17/2023 9:00 AM EDT Infusion Hematology Oncology at [address] [phone] documented as of this encounter Visit Diagnoses [...] gland documented in this encounter Care Teams Automotive Assembler Relationship Specialty Start Date End Date Nick Martinez MD [address] [place] [address] PCP - General Internal Medicine 07/01/18 documented as of this encounter
--- OUTSIDE RECORDS SUMMARY | 2023-10-17 03:58 | XMS_ITS | Encounter Summary ---
[place] [address] Care Team Providers Care Evaporative Cooler Installer Name Role Phone Nick Martinez MD Primary Care Provider [phone] Reason for Visit * Reason Onset Date Comments Medication Refill 05/31/2023 Encounter Details Date Type Department Care Team (Late st Contact Info) Description 05/31/2023 Refill [place] [address] Justina Kline RN Social History Tobacco Use Types Packs/Day Years Used Date Smoking Tobacco: Former Smokeless Tobacco: Current Chew Comments:1 can per day. Plan s to quit today 02/04/21 Alcohol Use Standard Drinks/Week Comments Yes 0 (1 standard drink = 0.6 oz pur e alcohol) on occassion only [employer] Utilities Answer Date Recorded In the past 12 months has [employer], gas, oil, or water [employer] threatened to shut off services in your [...] Telephone Encounter - Justina Kline RN - 05/31/2023 10:57 AM EDT Message: HawaRaffy pratt's sister called with concerns about his medication and what doses Raffy should be taking of each med. Could someone please give them a call back at [phone] to discuss. T/C to Hawa: Verified pt name and . Per Hawa, pt was confused about how much dexamethasonehe should be taking and wanted clarification. Patient combined his 2mg and 4mg tablets together andthey are unsure how much he has actually been taking. Patient spouse is taking medication back to pharmacy to properly identify the 2mg and 4mg tablets and separate them. Patient also needs a refill of dexamethasone. Requesting prescription for 4mg tablets to simplify medication for patient. Chart review: Advised Hawa that per note from Dr. Bobby on 05/29/23, patient is to take 4mg of dexamethasone BID. Hawa verbalized understanding. Plan: Hawa to follow up 06/03/23, to let us know how patient is doing with current dose. Refill request routed to provider. documented in this encounter Plan of Treatment Upcoming Encounters Date Type Department Care Team (Late st Contact Info) Description 10/17/2023 8:30 AM EDT Office Visit Hematology/Oncology at [address] [phone] Boy Tovar MD [facility] [place] [address] 10/17/2023 9:00 AM EDT Infusion Hematology Oncology at [address] [phone] documented as of this encounter Visit Diagnoses Not on filedocumented in this encounter Care Teams Evaporative Cooler Installer Relationship Specialty Start Date End Date Nick Martinez MD [address] [place] [address] PCP - General Internal Medicine 07/01/18 documented as of this encounter
--- OUTSIDE RECORDS SUMMARY | 2023-10-17 03:58 | XMS_ITS | Encounter Summary ---
[place] [address] Care Team Providers Care Credit Resolution Representative Name Role Phone Nick Martinez MD Primary Care Provider [phone] Encounter Details Date Type Department Care Team (Latest Contact Info) Description 06/02/2023 8:15 AM EDT Laboratory Appointment Lab [address] [place] [phone] Primary malignant 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 Social History Tobacco Use Types Packs/Day Years Used Date Smoking Tobacco: Former Smokeless Tobacco: Current Chew Comments:1 can per day. Plan s to quit today 02/04/21 Alcohol Use Standard Drinks/Week Comments Yes 0 (1 standard drink = 0.6 oz pur e alcohol) on occassion only [employer] Utilities Answer Date Recorded In the past 12 months has [employer], gas, oil, or water [employer] threatened to shut off services in your [...] AM EDT Office Visit Hematology/Oncology at [address] [phone] Boy Tovar MD [facility] DR HEMATOLOGY [place] [address] 10/17/2023 9:00 AM EDT Infusion Hematology Oncology at [address] [phone] documented as of this encounter Procedures Procedure Name Priority Date/Time Associated Diagnosis Comments SCAN, PERIPHERAL BLOOD STAT 8:08 AM EDT HEMOGRAM STAT 06/02/2023 8:08 AM EDT Primary malignant 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 DIFFERENTIAL, AUTOMATED STAT 06/02/2023 8:08 AM EDT Primary malignant 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 CBC (WITH DIFF) STAT 06/02/2023 8:08 AM EDT Primary malignant 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 TSH STAT 06/02/2023 8:08 AM EDT Primary malignant 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 T4, FREE STAT 06/02/2023 8:08 AM EDT Primary malignant 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 MAGNESIUM STAT 06/02/2023 8:08 AM EDT Primary malignant 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 COMPREHENSIVE METABOLIC PANEL STAT 06/02/2023 8:08 AM EDT Primary malignant 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 documented in this encounter Results * Scan, Peripheral Blood (06/02/2023 8:08 AM EDT) Pathologist [facility] Plat estimate Normal [facility] RBC Morphology Abnormal [facility] Ovalocytes 1-5 /HPF [facility] Blood 06/02/2023 8:08 AM EDT 06/02/2023 8:12 AM EDT Narrative Resulting Agency Comment Spec In Lab Ella Diego [employer] SUPERINTENDENT HEMATOLOGY ORDERAB LES [facility] [place] [address] * (ABNORMAL) Differential, Automated (06/02/2023 8:08 AM EDT) Neutrophil % 77.1 % [facility] Neutrophil Absolute 10.47(H) 1.70 - 6.10 x10(3)/mc L [facility] Lymph % 6.3 % [facility] Lymphocytes Abs 0.8(L) 0.9 - 3.2 x10(3)/mc L [facility] Monocyte % 8.7 % [facility] Monocyte Abs 1.2(H) 0.3 - 0.9 x10(3)/mc L [facility] Eos % 0.1 % [facility] Eosinophils Abs 0.0 0.0 - 0.4 x10(3)/[facility] Basophil % 0.7 % [facility] Baso Absolute 0.1 0.0 - 0.1 x10(3)/[facility] Immature Gran % 7.10 % [facility] Comment: Immature granulocytes(IG's)percentage and absolute count will include metamyelocytes, myelocytes, and promyelocytes. Blood smears from CBCs yielding IG's will be scanned manually for concordance. If this scan disagrees with the automated IG or if promyelocytes are noted, a manual differential will be performed. Immature Gran Absolute 0.97(H) 0.00 - 0.04 x10(3)/[facility] Blood 06/02/2023 8:08 AM EDT 06/02/2023 8:12 AM EDT Narrative Resulting Agency Comment Spec In Lab Ella Diego [employer] SUPERINTENDENT HEMATOLOGY ORDERAB LES [facility] [place] [address] * (ABNORMAL) Hemogram (06/02/2023 8:08 AM EDT) White Blood Cell 13.6(H) 4.0 - 9.5 x10(3)/[facility] Red Blood Cell 4.55(L) 4.58 - 5.54 x10(6)/[facility] Hemoglobin 14.3 13.7 - 16.5 g/dL [facility] Hematocrit 39.9(L) 40.5 - 48.5 % [facility] Mean Cell Volume 87.7 82.9 - 93.1 fL [facility] Mean Cell Hemoglobin 31.4 27.5 - 32.1 pg [facility] Mean Cell Hemoglobin Concentration 35.8(H) 32.0 - 35.7 g/dL [facility] Platelet 226 145 - 357 x10(3)/[facility] RDW Standard Deviation 43.6 36.0 - 45.0 [facility] RDW coefficient of variation 13.6 11.4 - 13.8 % [facility] Mean Platelet Volume 8.4 7.6 - 12.9 [facility] NRBC% auto 0.0 % [facility] NRBC Absolute 0.000 0.000 - 0.000 x10(3)/ L [facility] Blood 06/02/2023 8:08 AM EDT 06/02/2023 8:12 AM EDT Narrative Resulting Agency Comment Spec In Lab Ella Diego APRN HEMATOLOGY ORDERAB LES [facility] [place] [address] * (ABNORMAL) Comprehensive metabolic panel (non-fasting) (06/02/2023 8:08 AM EDT) Glucose 98 65 - 199 mg/dL [facility] Comment:Diabetes: >=200 mg/d L plus symptoms Blood Urea Nitrogen 21(H) 10 - 20 mg/dL [facility] Creatinine 1.04 0.80 - 1.50 mg/dL [facility] Sodium 137 135 - 145 mmol/L [facility] Potassium 4.3 3.5 - 5.0 mmol/L [facility] Comment: Please note: ??Patients with WBC >100,000 may have falsely elevated Potassium levels. ??For accurate Potassium quantification in these patients send serum separator tube (gold top) for subsequent determinations. ??Contact the Clinical Chemistry Laboratory if there are any questions. Chloride 99 98 - 107 mmol/L [facility] Carbon Dioxide 28 22 - 31 mmol/L [facility] Anion Gap 10 5 - 15 mmol/L [facility] Calcium 9.8 8.5 - 10.5 mg/dL [facility] Protein, Total 7.1 6.1 - 8.0 g/dL [facility] Albumin 4.3 3.2 - 5.2 g/dL [facility] Aspartate Aminotransferase 24 0 - 39 unit/L [facility] Alanine Aminotransferase 39 0 - 55 unit/L [facility] Alkaline Phosphatase 64 40 - 130 unit/L [facility] Bilirubin, Total 0.3 0.2 - 1.3 mg/dL [facility] Est Glomerular Filtration Rate 80 >=60 mL/min/1. 73 m?? [facility] Comment: This patient's estimated GFR [...] Lab Ella Diego APRN CHEMISTRY ORDERABL ES Performing Organization Address [facility]/ZIP Co de Phone Number [facility] [place] [address] * Magnesium (06/02/2023 8:08 AM EDT) Magnesium 0.93 0.69 - 1.07 mmol/L [facility] Blood 06/02/2023 8:08 AM EDT 06/02/2023 8:12 AM EDT Narrative Resulting Agency Comment Spec In Lab Ella Diego APRN CHEMISTRY ORDERABL ES [facility] [place] [address] * TSH (06/02/2023 8:08 AM EDT) Thyroid Stimulating Hormone 3.09 0.27 - 4.20 mcIU/mL [facility] Comment: Reference Interval (mcIU/mL): Females: ??First Trimester: 0.23-3.88 ??Second Trimester: 0.22-3.90 ??Third Trimester: 0.44-4.66 Blood 06/02/2023 8:08 AM EDT 06/02/2023 8:12 AM EDT Narrative Resulting Agency Comment Spec In Lab Ella Diego APRN CHEMISTRY ORDERABL ES Performing Organization Address [facility] Co de Phone Number [facility] [place] [address] * T4, free (06/02/2023 8:08 AM EDT) Free T4 1.07 0.93 - 1.70 ng/dL [facility] Comment: Reference Interval (ng/dL): Females: ??First Trimester: 0.97-1.68 ??Second Trimester: 0.77-1.51 ??Third Trimester: 0.77-1.49 Blood 06/02/2023 8:08 AM EDT 06/02/2023 8:12 AM EDT Narrative Resulting Agency Comment Spec In Lab Ella Diego APRN CHEMISTRY ORDERABL ES Performing Organization Address City/[facility]/ZIP Co de Phone Number [facility] [place] [address] documented in this encounter Visit Diagnoses Diagnosis [...] gland documented in this encounter Care Teams Credit Resolution Representative Relationship Specialty Start Date End Date Nick Martinez MD [address] [place] [id number] PCP - General Internal Medicine 07/01/18 documented as of this encounter
--- OUTSIDE RECORDS SUMMARY | 2023-10-17 03:58 | XMS_ITS | Encounter Summary ---
Author Organization [facility] [place] [address] Care Team Providers Care Transfer Car Operator Drier Name Role Phone Nick Martinez MD Primary Care Provider [phone] Encounter Details Date Type Department Care Team (Late st Contact Info) Description 05/30/2023 Orders [place] [address] Charles Wilson MD [facility] [place] [address] Secondary malignant neoplasm of brain Social History Tobacco Use Types Packs/Day Years Used Date Smoking Tobacco: Former Smokeless Tobacco: Current Chew Comments:1 can per day. Plan s to quit today 02/04/21 Alcohol Use Standard Drinks/Week Comments Yes 0 (1 standard drink = 0.6 oz pur e alcohol) on occassion only [facility] Utilities Answer Date Recorded In the past 12 months has [employer], gas, oil, or water company threatened [...] as of this encounter Miscellaneous Notes * Addendum Note - Charles Wilson MD - 05/30/2023 10:18 AM EDTAddended by: CHARLES WILSON on: 05/30/2023 10:33 AM Modules accepted: Orders documented in this encounter Plan of Treatment Upcoming Encounters Date Type Department Care Team (Late st Contact Info) Description 10/17/2023 8:30 AM EDT Office Visit Hematology/Oncology at [address] [phone] Boy Tovar MD [facility] HEMATOLOGY [place] [address] 10/17/2023 9:00 AM EDT Infusion Hematology Oncology at [address] [phone] documented as of this encounter [...] gland documented in this encounter Care Teams Transfer Car Operator Drier Relationship Specialty Start Date End Date Nick Martinez MD [address] [place] [id number] PCP - General Internal Medicine 07/01/18 documented as of this encounter
--- OUTSIDE RECORDS SUMMARY | 2023-10-17 03:58 | XMS_ITS | Encounter Summary ---
Author Organization [facility] [place] [address] Care Team Providers Care Oracle Engineer Name Role Phone Nick Martinez MD Primary Care Provider [phone] Encounter Details Date Type Department Care Team (Late st Contact Info) Description 05/13/2023 Orders Only [place] [address] Carlos Marie MD [facility] DR [place] [address] Social History Tobacco Use Types Packs/Day Years Used Date Smoking Tobacco: Former Smokeless Tobacco: Current Chew Comments:1 can per day. Plan s to quit today 02/04/21 Alcohol Use Standard Drinks/Week Comments Yes 0 (1 standard drink = 0.6 oz pur e alcohol) on occassion only [facility] Utilities Answer Date Recorded In the past 12 months has [employer] electric, gas, oil, or water company threatened [...] AM EDT Office Visit Hematology/Oncology at [address] [phone] Boy Tovar MD [facility] DR HEMATOLOGY [place] [address] 10/17/2023 9:00 AM EDT Infusion Hematology Oncology at [address] [phone] documented as of this encounter Visit Diagnoses Not on filedocumented in this encounter Care Teams Oracle Engineer Relationship Specialty Start Date End Date Nick Martinez MD [address] [place] [address] PCP - General Internal Medicine 07/01/18 documented as of this encounter
--- OUTSIDE RECORDS SUMMARY | 2023-10-17 03:58 | XMS_ITS | Encounter Summary ---
[place] [address] Care Team Providers Care Stations Superintendent Name Role Phone Nick Martinez MD Primary Care Provider [phone] Encounter Details Date Type Department Care Team (Late st Contact Info) Description 05/24/2023 Telephone [place] [address] Justina Kline RN Social History [...] Recorded In the past 12 months has [employer], gas, oil, or water [employer] threatened to shut off services in your [...] Telephone Encounter - Justina Kline RN - 05/24/2023 9:53 AM EDT Message: HawaRaffy pratt's sister called stating he was up most of the night with severe muscle cramps in his neck and legs. He left leg is very swollen and sore, she could not tell me if it was hot to touch. She would appreciate a call back at [phone]. T/C to Hawa: Hawa states that patient is complaining of increase in frequency and severity ofmuscle spasms and cramps in neck, hands and right leg. Patient also has bilateral edema in lower extremities. Patient unable to bare weight on right leg due to pain. Denies redness or warm to the touch. Pain improved when sitting still, pt using heat PRN. Patient also has dry cough that started just before starting radiation treatment, cough has increased in frequency. Hawa notes that patient has gained 4lbs since last week, abdomen swollen and patient complains of feeling bloated. Patient has had an increased appetite since starting steroids, consumes adequate nutrition, drinking gatorade as recommended and staying hydrated. Hawa unaware of any urinary or additional GI concerns at this time. Thrush has resolved. Medications: Patient taking Dexamethasone 4mg BID, started tapering today to Dexamethasone 2mg BID. Labs: Patient had labs done 05/23/23, ALT 62, all other labs WNL. Levetiracetam level pending. Provided education about radiation and how we sometimes see an initial increase in some symptoms due to inflammation at the treatment site. Advised her that I will forward her message to provider forreview. Shaikh requesting a call back with recommendations. Plan: Message pended to provider. documented in this encounter Plan of Treatment Upcoming Encounters Date Type Department Care Team (Late st Contact Info) Description 10/17/2023 8:30 AM EDT Office Visit Hematology/Oncology at [address] [phone] Boy Tovar MD [facility] DR [place] [address] 10/17/2023 9:00 AM EDT Infusion Hematology Oncology at [address] [phone] documented as of this encounter Visit Diagnoses Not on filedocumented in this encounter Care Teams Stations Superintendent Relationship Specialty Start Date End Date Nick Martinez MD [address] [place] [address] PCP - General Internal Medicine 07/01/18 documented as of this encounter
--- OUTSIDE RECORDS SUMMARY | 2023-10-17 03:58 | XMS_ITS | Encounter Summary ---
[place] [address] Care Team Providers Care Oncology Technician Name Role Phone Nick Martinez MD Primary Care Provider [phone] Encounter Details Date Type Department Care Team (Late st Contact Info) Description 05/13/2023 Telephone [place] [address] Deepa Landeros, RN Social History Tobacco Use Types Packs/Day Years Used Date Smoking Tobacco: Former Smokeless Tobacco: Current Chew Comments:1 can per day. Plan s to quit today 02/04/21 Alcohol Use Standard Drinks/Week Comments Yes 0 (1 standard drink = 0.6 oz pur e alcohol) on occassion only [facility] Utilities Answer Date Recorded In the past 12 months has [employer], gas, oil, or water [employer] threatened to shut off services in your [...] encounter Miscellaneous Notes * Telephone Encounter - Deepa Landeros RN - 05/13/2023 1:36 PM EST Message received: Needs refill of his Nystatin suspension called into [facility] in [facility]. T/C To Patient: he reports he took nystatin as prescribed by Dr. Marie but it did not completely take care of the thrush. He reports he still feels like he has it in the back of his throat. He would like a refill. Per Dr. Marie: i sent rx for diflucan. if nystantin didn't work then no point repeating. Plan: Made patient aware of the above per MD. Patient in agreement. He will pick it up from the pharmacy. He was advise to call back with questions or concerns or changes. documented in this encounter Plan of Treatment Upcoming Encounters Date Type Department Care Team (Late st Contact Info) Description 10/17/2023 8:30 AM EDT Office Visit Hematology/Oncology at [address] [phone] Boy Tovar MD [facility] HEMATOLOGY [place] [address] 10/17/2023 9:00 AM EDT Infusion Hematology Oncology at [address] [phone] documented as of this encounter Visit Diagnoses Not on filedocumented in this encounter Care Teams Oncology Technician Relationship Specialty Start Date End Date Nick Martinez MD [address] [place] [address] PCP - General Internal Medicine 07/01/18 documented as of this encounter
--- OUTSIDE RECORDS SUMMARY | 2023-10-17 03:58 | XMS_ITS | Encounter Summary ---
[place] [address] Care Team Providers Care Mobile Equipment Servicer Name Role Phone Nick Martinez MD Primary Care Provider [phone] Reason for Visit * Reason Comments Procedure SRS * Consultation (Routine) - Closed Specialty Diagnoses / Procedures Referred By Mariana workman Referred To Contact Radiation Oncology Diagnoses Secondary malignant neoplasm of brain Procedures Simulation for Radiation Therapy Planning Carlos Marie MD [facility] [place] [address] [facility] [place] [address] Referral ID Status Reason Start Date Expiration Date V isits Requested Visits Authorized [id number] Closed Consult, Test & Treat 05/11/2023 06/11/2023 4 4 Encounter Details Date Type Department Care Team (Latest Contact Info) Description 05/19/2023 3:15 PM EDT Procedure visit [place] [address] Carlos Marie MD [facility] [place] [address] Secondary malignant neoplasm of brain [...] Sign Reading Time Taken Comments Blood Pressure 143/67 05/19/2023 2:50 PM EDT Pulse 91 05/19/2023 2:50 PM EDT Temperature 36.3 ??C (97.3 ??F) 05/19/2023 2:50 PM ED T Respiratory Rate - - Oxygen Saturation 99% 05/19/2023 2:50 PM EDT Inhaled Oxygen Concentration - - Weight 122.9 kg (271 lb) 05/19/2023 2:50 PM EDT Height - - Body Mass Index 37.94 02/04/2023 8:55 AM EST documented in this encounter Patient Instructions * Patient Instructions* Kayla Tidwell RN - 05/19/2023 3:15 PM EDT Open Face Mask Stereotactic Radiosurgery Discharge Instructions You have received a high dose radiation to the brain for your lesion(s). Your procedure went very well. Discharge instructions include: Please notify us if any of these symptoms develop: worsening headache nausea and/or vomiting seizure(s) change in balance or vision new problems with walking/balance Call us at [phone] during normal business. If you need to call us after normal business hours we can be reached at [phone] and ask for the Radiation Oncologist marketing sales consultant. You may use email with ???[email or web address]?? to contact us at any time for more routine matters. Instructions for dexamethasone: As Instructed by Dr. Marie documented in this encounter Progress Notes * Carlos Marie MD - 05/19/2023 3:15 PM EDT Images from the original note [...] needed. he was monitored continuously with the [employer] RT system for excessive motion. A member [...] 1 of 3 fractions completed n Notes: He is still on 4 mg BID of dexamethasone. He is tolerating okay. He had thrush and that was treatedwith nystatin then diflucan. He is not sleeping well. A sleep aid was offered, but he is not wanting to take one. n Follow-up/plan: Return for next scheduled treatment. Instructed to call the clinic with any questions/concerns in the meantime. Carlos Marie MD [facility] Radiation Oncology [facility] [place] ([facility]) Comprehensive [facility] [employer] Commission on Cancer (ACS [place]) Accredited Cancer Program [employer] (ACR) Accredited Radiation Oncology Program documented in this encounter Plan of Treatment Upcoming Encounters Date Type Department Care Team (Late st Contact Info) Description 10/17/2023 8:30 AM EDT Office Visit Hematology/Oncology at [address] [phone] Boy Tovar MD [facility] DR HEMATOLOGY [place] [address] 10/17/2023 9:00 AM EDT Infusion Hematology Oncology at [address] [phone] documented as of this encounter [...] Date Dose Rate Site LORazepam (Ativan) tablet 0.5 mg 0.5 mg, Oral, ONCE, 1 dose, On Digna 05/19/23 at 1545, STAT Given 05/19/2023 3:23 PM EDT 0.5 mg documented in this encounter Care Teams Mobile Equipment Servicer Relationship Specialty Start Date End Date Nick Martinez MD [address] [place] [address] PCP - General Internal Medicine 07/01/18 documented as of this encounter
--- OUTSIDE RECORDS SUMMARY | 2023-10-17 03:58 | XMS_ITS | Encounter Summary ---
Author Organization [facility] [place] [address] Care Team Providers Care It Network Architect Name Role Phone Nick Martinez MD Primary Care Provider [phone] Encounter Details Date Type Department Care Team (Latest Contact Info) Description 05/25/2023 Travel Social History Tobacco Use Types Packs/Day Years Used Date Smoking Tobacco: Former Smokeless Tobacco: Current Chew Comments:1 can per day. Plan s to quit today 02/04/21 Alcohol Use Standard Drinks/Week Comments Yes 0 (1 standard drink = 0.6 oz pur e alcohol) on occassion only [facility] Utilities Answer Date Recorded In [...] AM EDT Office Visit Hematology/Oncology at [address] [phone] Boy Tovar MD [facility] [place] [address] 10/17/2023 9:00 AM EDT Infusion Hematology Oncology at [address] [phone] documented as of this encounter Visit Diagnoses Not on filedocumented in this encounter Care Teams It Network Architect Relationship Specialty Start Date End Date Nick Martinez MD [address] [place] [address] PCP - General Internal Medicine 07/01/18 documented as of this encounter
--- OUTSIDE RECORDS SUMMARY | 2023-10-17 03:58 | XMS_ITS | Encounter Summary ---
Author Organization [facility] [place] [address] Care Team Providers Care Intermediate School Teacher Name Role Phone Nick Martinez MD Primary Care Provider [phone] Encounter Details Date Type Department Care Team (Latest Contact Info) Description 05/11/2023 12:22 PM EST - 05/11/2023 11:[address] [facility] Hospital Encounter [place]ematology [place] [phone] Primary malignant 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; Brain metastasis Discharge Disposition: Home Social History Tobacco Use Types Packs/Day Years Used Date Smoking Tobacco: Former Smokeless Tobacco: Current Chew Comments:1 can per day. Plan s to quit today 02/04/21 Alcohol Use Standard Drinks/Week Comments Yes 0 (1 standard drink = 0.6 oz pur e alcohol) on occassion only [employer] Utilities Answer Date Recorded In the past 12 months has [employer], gas, oil, or water [employer] threatened to shut off services in your [...] Sig Dispensed Refills Start Date End Date omeprazole (PriLOSEC) [address] capsule Take [...] every 6 hours as needed for Pain. dexAMETHasone (Decadron) 2 mg tablet Take 1 tablet by mouth 2 times daily. 60 tablet 05/11/2023 05/31/2023 varenicline (Chantix) 1 mg tablet Take 1 tablet by mouth 2 times daily. 60 tablet 3 05/11/2023 08/17/2023 nystatin (Mycostatin) 100,000 unit/mL Suspension Take 5 mLs by mouth 4 times daily. 60 mL 05/05/2023 08/18/2023 levETIRAcetam (Keppra) 500 mg tablet Take 500 mg by mouth 2 times daily. 04/25/2023 05/19/2023 LORazepam (Ativan) 0.5 mg tabletIndications:Prim poppy malignant 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 Take 1 tablet 90 minutes prior to scan if the desired effect is not felt, please take a second tablet 30 minutes before scan 2 tablet 04/25/2023 05/25/2023 nicotine polacrilex (Commit) 4 mg buccal lozengeIndications:Jj [...] 24 pieces/day)). 100 tablet 3 02/08/2023 08/17/2023 calcium carbonate (Tums) 200 mg calcium (500 mg) Tablet, Chewable Take 1 tablet by mouth daily. 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 documented in this encounter Results * Research Venipuncture (05/11/2023 12:39 PM EST) Research Venipuncture Drawn [facility] Blood 05/11/2023 12:3 9 PM EST 05/11/2023 1:05 PM EST Narrative Resulting Agency Comment Spec In Lab Boy Tovar MD CHEMISTRY ORDERABLES [facility] [place] [address] documented in this encounter Visit Diagnoses Diagnosis [...] gland documented in this encounter Care Teams Intermediate School Teacher Relationship Specialty Start Date End Date Nick Martinez MD [address] [place] [address] PCP - General Internal Medicine 07/01/18 documented as of this encounter
--- OUTSIDE RECORDS SUMMARY | 2023-10-17 03:58 | XMS_ITS | Encounter Summary ---
[place] [address] Care Team Providers Care Hvac Sales Representative Name Role Phone Nick Martinez MD Primary Care Provider [phone] Encounter Details Date Type Department Care Team (Late st Contact Info) Description 05/11/2023 Notes Only [place] [address] Isabelle Andrews, RN Social History Tobacco Use Types Packs/Day Years Used Date Smoking Tobacco: Former Smokeless Tobacco: Current Chew Comments:1 can per day. Plan s to quit today 02/04/21 Alcohol Use Standard Drinks/Week Comments Yes 0 (1 standard drink = 0.6 oz pur e alcohol) on occassion only [facility] Utilities Answer Date Recorded In the past 12 months has [employer], gas, oil, or water [employer] threatened to shut off services in your [...] as of this encounter Progress Notes * Isabelle Andrews, RN - 05/11/2023 3:33 PM ESTSummary: kit mailed Test requisition form, pt demographics/insurance and lab specimens collected and shipped to [employer] soakers supervisor. [employer] documented in this encounter Plan of Treatment Upcoming Encounters Date Type Department Care Team (Late st Contact Info) Description 10/17/2023 8:30 AM EDT Office Visit Hematology/Oncology at [address] [phone] Boy Tovar MD [facility] DR HEMATOLOGY [place] [address] 10/17/2023 9:00 AM EDT Infusion Hematology Oncology at [address] [phone] documented as of this encounter Visit Diagnoses Not on filedocumented in this encounter Care Teams Hvac Sales Representative Relationship Specialty Start Date End Date Nick Martinez MD [address] [place] [address] PCP - General Internal Medicine 4/27/19 documented as of this encounter
--- OUTSIDE RECORDS SUMMARY | 2023-10-17 03:58 | XMS_ITS | Encounter Summary ---
Author Organization [facility] [place] [address] Care Team Providers Care Wire Setter Name Role Phone Nick Martinez MD Primary Care Provider [phone] Encounter Details Date Type Department Care Team (Late st Contact Info) Description 06/22/2023 Orders Only Hematology [place] [address] Ella Diego APRN [facility] DR HEMATOLOGY [place] [address] Primary malignant 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; Localized swelling of right lower extremity Social History Tobacco Use Types Packs/Day Years Used Date Smoking Tobacco: Former Smokeless Tobacco: Current Chew Comments:1 can per day. Plan s to quit today 02/04/21 Alcohol Use Standard Drinks/Week Comments Yes 0 (1 standard drink = 0.6 oz pur e alcohol) on occassion only [facility] Utilities Answer Date Recorded In the [...] 8:30 AM EDT Office Visit Hematology/Oncology at [address] [phone] Boy Tovar MD [facility] HEMATOLOGY [place] [address] 10/17/2023 9:00 AM EDT Infusion Hematology Oncology at [address] [phone] documented as of this encounter Visit Diagnoses [...] gland documented in this encounter Care Teams Wire Setter Relationship Specialty Start Date End Date Nick Martinez MD [address] [place] [address] PCP - General Internal Medicine 07/01/18 documented as of this encounter
--- OUTSIDE RECORDS SUMMARY | 2023-10-17 03:58 | XMS_ITS | Encounter Summary ---
Author Organization [facility] [place] [address] Care Team Providers Care Chief Executive Or Managing Director Name Role Phone Nick Martinez MD Primary Care Provider [phone] Encounter Details Date Type Department Care Team (Late st Contact Info) Description 05/30/2023 3:15 PM EDT Ancillary Procedure [place] [address] Carlos Marie MD [facility] [place] [address] Social History Tobacco Use Types Packs/Day Years Used Date Smoking Tobacco: Former Smokeless Tobacco: Current Chew Comments:1 can per day. Plan s to quit today 02/04/21 Alcohol Use Standard Drinks/Week Comments Yes 0 (1 standard drink = 0.6 oz pur e alcohol) on occassion only [facility] Utilities Answer Date Recorded In the past 12 months has [employer], gas, oil, or water company threatened [...] AM EDT Office Visit Hematology/Oncology at [address] [phone] Boy Tovar MD [facility] DR HEMATOLOGY [place] [address] 10/17/2023 9:00 AM EDT Infusion Hematology Oncology at [address] [phone] documented as of this encounter Procedures Procedure Name Priority Date/Time Associated Diagnosis Comments FILM LIBRARY STORAGE ONLY CT CHEST ABDOMEN PELVIS Routine 05/30/2023 3:14 PM EDT documented in this encounter Results * Film Library- Storage Only CT Chest Abdomen Pelvis (05/30/2023 3:14 PM EDT) Narrative [facility] - 05/30/2023 3:14 PM EDT This exam is auto-finalizing. It's purpose is for storage only. Carlos Marie MD IM FILM LIBRARY ORD ERABLES [place], [place] documented in this encounter Visit Diagnoses Not on filedocumented in this encounter Care Teams Chief Executive Or Managing Director Relationship Specialty Start Date End Date Nick Martinez MD [address] [place] [address] PCP - General Internal Medicine 07/01/18 documented as of this encounter
--- OUTSIDE RECORDS SUMMARY | 2023-10-17 03:58 | XMS_ITS | Encounter Summary ---
Author Organization [facility] [place] [address] Care Team Providers Care Medical Laboratory Specialist Name Role Phone Nick Martinez MD Primary Care Provider [phone] Encounter Details Date Type Department Care Team (Late st Contact Info) Description 05/29/2023 Telephone [place]iation [place] [address] Emily Bobby MD [facility] [place] [address] Social History Tobacco Use Types Packs/Day Years Used Date Smoking Tobacco: Former Smokeless Tobacco: Current Chew Comments:1 can per day. Plan s to quit today 02/04/21 Alcohol Use Standard Drinks/Week Comments Yes 0 (1 standard drink = 0.6 oz pur e alcohol) on occassion only [facility] Utilities Answer Date Recorded In the past 12 months has [employer], gas, oil, or water company threatened [...] encounter Miscellaneous Notes * Telephone Encounter - Emily Bobby MD - 05/29/2023 10:38 AM EDT Radiation Oncology Telephone Note Raffy Latif is a 62 y.o. male with history of stage III lung cancer treated in and [facility]. Presented to ED in April 2023 with 1 month of progressive neurological symptoms (rightleg weakness and right leg partial seizure) and found to have ~2 cm right frontal lobe metastasis with extensive vasogenic/anali-tumoral edema. His symptoms largely improved with steroid therapy and he completed 27Gy/3fx SRS this past week (05/25/2023) however he developed foot/ankle swelling and hand/leg cramping 2/2 steroid therapy so his dexamethasone dose was reduced from 4mg BID to 2mg BID forthe past 4-5 days. He and his sister called at approximately 8:30am today to report that his initial symptoms of rightleg weakness and difficulty with ambulation have returned. He has not had other or new neurologicalsymptoms. Plan: 1. I advised him to increase his dexamethasone dose to 4mg BID 2. I informed him to call [place] [facility] [place] tomorrow to discuss his symptoms with Dr. Marie'snurse 3. I advised them to present to the ED if his symptoms were to acutely worsen or if new neuroligical symptoms such as seizure, vomiting, or new deficits were to occur. This note will be forwarded to Dr. Marie's team. Emily Bobby MD Chief Resident ([id number]) Radiation Oncology [facility] documented in this encounter Plan of Treatment Upcoming Encounters Date Type Department Care Team (Late st Contact Info) Description 10/17/2023 8:30 AM EDT Office Visit Hematology/Oncology at [address] [phone] Boy Tovar MD [facility] DR [place] [address] 10/17/2023 9:00 AM EDT Infusion Hematology Oncology at [address] [phone] documented as of this encounter Visit Diagnoses Not on filedocumented in this encounter Care Teams Medical Laboratory Specialist Relationship Specialty Start Date End Date Nick Martinez MD [address] [place] [address] PCP - General Internal Medicine 07/01/18 documented as of this encounter
--- OUTSIDE RECORDS SUMMARY | 2023-10-17 03:58 | XMS_ITS | Encounter Summary ---
Author Organization [facility] [place] [address] Care Team Providers Care Timber Appraiser Name Role Phone Nick Martinez MD Primary Care Provider [phone] Encounter Details Date Type Department Care Team (Latest Contact Info) Description 06/02/2023 Travel Social History Tobacco Use Types Packs/Day [...] AM EDT Office Visit Hematology/Oncology at [address] [phone] Boy Tovar MD [facility] DR HEMATOLOGY [place] [address] 10/17/2023 9:00 AM EDT Infusion Hematology Oncology at [address] [phone] documented as of this encounter Visit Diagnoses Not on filedocumented in this encounter Care Teams Timber Appraiser Relationship Specialty Start Date End Date Nick Martinez MD [address] [place] [address] PCP - General Internal Medicine 07/01/18 documented as of this encounter
--- OUTSIDE RECORDS SUMMARY | 2023-10-17 03:58 | XMS_ITS | Encounter Summary ---
[place] [address] Care Team Providers Care Rn Hospice Name Role Phone Nick Martinez MD Primary Care Provider [phone] Reason for Visit * Reason Onset Date Comments Prior Authorization 05/12/2023 Encounter Details Date Type Department Care Team (Late st Contact Info) Description 05/12/2023 Telephone Hematology [place] [address] Manjula Liu Prior Authorization Social History Tobacco Use Types Packs/Day Years Used Date Smoking Tobacco: Former Smokeless Tobacco: Current Chew Comments:1 can per day. Plan s to quit today 02/04/21 Alcohol Use Standard Drinks/Week Comments Yes 0 (1 standard drink = 0.6 oz pur e alcohol) on occassion only [employer] Utilities Answer Date Recorded In the past 12 months has [employer], gas, oil, or water [employer] threatened to shut off services in your [...] * Telephone Encounter - Manjula Liu - 05/12/2023 1:57 PM EST Procedure Prior Authorization Procedure/Cpt: 87578, [address] Ct c/a/p Rationale: C34.11, C79.31, C79.71 Health Plan: [facility] Authorizing Vendor: [employer] Preference Order/ Effective Date: 05/12/2023 - 07/10/2023 Status: Approved Rendering Facility: [facility] documented in this encounter Plan of Treatment Upcoming Encounters Date Type Department Care Team (Late st Contact Info) Description 10/17/2023 8:30 AM EDT Office Visit Hematology/Oncology at [address] [phone] Boy Tovar MD [facility] [place] [address] 10/17/2023 9:00 AM EDT Infusion Hematology Oncology at [address] [phone] documented as of this encounter Visit Diagnoses Not on filedocumented in this encounter Care Teams Rn Hospice Relationship Specialty Start Date End Date Nick Martinez MD [address] [place] [address] PCP - General Internal Medicine 07/01/18 documented as of this encounter
--- OUTSIDE RECORDS SUMMARY | 2023-10-17 03:59 | XMS_ITS | Encounter Summary ---
Author Organization [facility] [place] [address] Care Team Providers Care Drafter Electromechanical Name Role Phone Nick Martinez MD Primary Care Provider Reason for Referral * Diagnostic Test (Routine) - Authorized Specialty Diagnoses / Procedures Referred By Mariana workman Referred To Contact Radiology Diagnoses Primary malignant 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 Procedures CT Chest w Contrast Boy Tovar MD [facility] [place] [address] [facility] [place] [address] Referral ID Status Reason Start Date Expiration Date Visits Requested Visits Authorized [id number] Authorized Specialty Service Requested 02/04/2023 08/05/2024 1 1 Reason for Visit * Reason Comments Follow-up Encounter Details Date Type Department Care Team (Late st Contact Info) Description 02/04/2023 9:30 AM EST Office Visit [place]ematology [place] [address] Boy Tovar MD [facility] [address] [place] [address] Elal Diego APRN [facility] [address] [place] [address] Primary malignant neoplasm of right upper lobe [...] oz pur e alcohol) on occassion only Overall Financial Resource Strain (CARDIA) Answe r Date Recorded How hard is it for you to pa y for the very basics like food, housing, medical care, and heating? Not hard at all 02/04/2021 Hunger Vital Sign Answer Date Recorded Within the past 12 months, y ou worried that your food would run out before you got the money to buy more. Never true 02/05/20 21 Within the past 12 months, t he food you bought just didn't last and you didn't have money to get more. Never true 02/04/2021 PRAPARE - Transportation Answer Date Re corded In the past 12 months, has l ack of transportation kept you from medical appointments or from getting medications? No 03/2020 In the past 12 months, has l ack of transportation kept you from meetings, work, or from getting things needed for daily living? No 02/04/2021 Housing Stability Vital Sign Answer Jorge e Recorded In the last 12 months, was t here a time when you were not able to pay the mortgage or rent on time? No 02/04/2021 In the last 12 months, how many places have you lived? 1 02/04/2021 In the last 12 months, was t here a time when you did not have a steady place to sleep or slept in a custodial (including now)? No 02/04/2021 Sex and Gender Information Value Date Recorded Sex Assigned at Not on file Gender Identity Not on file Sexual Orientation Not on file documented as of this encounter Last Filed Vital Signs Vital Sign Reading Time Taken Comments Blood Pressure 105/69 02/04/2023 8:55 AM EST Pulse 100 02/04/2023 8:55 AM EST Temperature 36.3 ??C (97.3 ??F) 02/04/2023 8:55 AM ES T Respiratory Rate 20 02/04/2023 8:55 AM EST Oxygen Saturation 98% 02/04/2023 8:55 AM EST Inhaled Oxygen Concentration - - Weight 119.8 kg (264 lb 1.8 oz) 02/04/2023 8:55 AM EST Height 180 cm (5' 10.87) 02/04/2023 8:55 AM EST Body Mass Index 36.98 02/04/2023 8:55 AM EST documented in this encounter Progress Notes * Boy Tovar MD - 02/04/2023 9:30 AM EST Images from the original note were not included[place] [address] [phone] Raffy Latif is being seen for cT1cN3 [...] Started consolidative immunotherapy with durvalumab on 04.20.21. Imaging personally reviewed today. No indication of recurrence. Discussed survivorship and surveillance plan. Emphasized the need to stop chewing tobacco, Plan: - Return to the clinic in [address] and labs. - Discussed tobacco cessation at [facility] and in pretty verónica terms- prescribed both lozenges and gumfor him to try Boy Tovar MD, MS 02/04/2023 Thoracic Oncology [facility] CC: Serenity Larson APRN HPI/Interval History/Subjective: Last seen 11/04/2022 Has a new PCP- Serenity Larson APRN Started on Advair Still chewing tobacco. Busy at home. 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 Thinking about retiring. Worries a little about money. Has some aches and pain- comes and goes., Wonder about his mattress. Once he gets moving it is better. Patches did not work. Does go to the dentist every 6 months. Overall feeling well. Does have occasional cough, but otherwise no new/worsening respiratory symptoms. LANDEROS remains stable. No CP, SOB, worsening LANDEROS, hemoptysis. No new symptoms since completing durvalumab. Denies any fevers, chills, rashes, arthralgias, headaches, dizziness, abd pain, nausea/vomiting, diarrhea, acute SOB, CP. Continues to have a busy family life his 4 children and grandchildren. No specific symptoms or concerns to discuss today. Social History/Support Network: Home situation: Lives with in [facility] with Velvet. 35 years. 3 children and plan to adopt another one through foster care. 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 40 Pk [...] most consistent with infectious or inflammatory pneumonitis. 08/10/2021 3:38 PM 09/14/2021 3:06 PM 10/12/2021 [...] Patient Active Problem List Diagnosis Date Noted Primary malignant neoplasm of right upper lobe [...] Exam: Wt Readings from Last 3 Encounters: 02/04/23 119.8 kg (264 lb 1.8 oz) 11/04/22 117.7 kg (259 lb 7.7 oz) 07/16/22 116.8 kg (257 lb 8 oz) Temp Readings from Last 3 Encounters: 02/04/23 36.3 ??C (97.3 ??F) (Temporal) 11/04/22 36.1 ??C (97 ??F) (Temporal) 07/16/22 36.4 ??C (97.5 ??F) (Temporal) BP Readings from Last 3 Encounters: 02/04/23 105/69 11/04/22 107/70 07/16/22 117/79 Pulse Readings from Last 3 Encounters: 02/04/23 100 11/04/22 82 07/16/22 98 Body surface area is 2.45 meters squared. Wt Readings from Last 3 Encounters: 02/04/23 119.8 kg (264 lb 1.8 oz) 11/04/22 117.7 kg (259 lb 7.7 oz) 07/16/22 116.8 kg (257 lb 8 oz) KPS Score ECOG Grade Definition 90-100 [...] totally confined to bed or chair BP 105/69 (Patient Position: Sitting) Pulse 100 Temp 36.3 ??C (97.3 ??F) (Temporal) Resp 20 Ht 180 cm (5' 10.87) Wt 119.8 kg (264 lb 1.8 oz) SpO2 98% BMI 36.98 kg/m?? Physical Exam Constitutional: General: Not in acute distress. Appearance: Normal appearance. Normal weight. Not ill-appearing, toxic-appearing or diaphoretic. HENT: Head: Atraumatic. Eyes: General: No scleral icterus. Right eye: No discharge. Left eye: No discharge. Conjunctiva/sclera: Conjunctivae normal. Pulmonary: Effort: Pulmonary effort is normal. Review of Laboratory Data: Recent Results (from the past 24 hour(s)) Comprehensive metabolic panel (non-fasting) Result Value Ref Range Glucose Lvl 102 65 - 199 mg/dL BUN 15 10 - 20 mg/dL Creatinine 1.30 0.80 - 1.50 mg/dL Sodium 139 135 - 145 mmol/L Potassium 4.2 3.5 - 5.0 mmol/L Chloride 102 98 - 107 mmol/L CO2 31 22 - 31 mmol/L Anion Gap 6 5 - 15 mmol/L Calcium 9.1 8.5 - 10.5 mg/dL Total Protein 7.1 6.1 - 8.0 g/dL Albumin 4.5 3.2 - 5.2 g/dL AST 25 0 - 39 unit/L ALT 25 0 - 55 unit/L Alk Phos 71 40 - 130 unit/L Total Bilirubin 0.3 0.2 - 1.3 mg/dL Estimated GFR 61 >=60 mL/min/1.73 m?? Hemogram Result Value Ref Range WBC 5.8 4.0 - 9.5 x10(3)/mcL RBC 4.30 (L) 4.58 - 5.54 x10(6)/mcL Hemoglobin 13.4 (L) 13.7 - 16.5 g/dL Hematocrit 38.0 (L) 40.5 - 48.5 % MCV 88.4 82.9 - 93.1 fL MCH 31.2 27.5 - 32.1 pg MCHC 35.3 32.0 - 35.7 g/dL Platelets 202 145 - 357 x10(3)/mcL RDWSD 40.4 36.0 - 45.0 fL RDWCV 12.6 11.4 - 13.8 % MPV 9.1 7.6 - 12.9 fL nRBC % Auto 0.0 % nRBC Abs Auto 0.000 0.000 - 0.000 x10(3)/mcL Differential, Automated Result Value Ref Range Neutrophils % 69.5 % Neutr Abs (ANC) 4.01 1.70 - 6.10 x10(3)/mcL Lymphocytes % 15.1 % Lymphocytes Abs 0.9 0.9 - 3.2 x10(3)/mcL Monocytes % 11.6 % Monocyte Abs 0.7 0.3 - 0.9 x10(3)/mcL Eosinophils % 1.4 % Eosinophils Abs 0.1 0.0 - 0.4 x10(3)/mcL Basophils % 0.3 % Basophils Abs 0.0 0.0 - 0.1 x10(3)/mcL Immature Gran % 2.10 % Yolanda Gran Abs 0.12 (H) 0.00 - 0.04 x10(3)/mcL 02/08/22 WBC 6.49, H/H 14/39.4, plt 200, ANC 4960, Na 141, K 3.6, BUN 20, Creat 1.5, Mg 1.9, t bili 0.5, AST24, ALT 30, alk phos 85, total protein 8.1, TSH 3.99, free t4 0.87. Remainder of chemistries otherwise unremarkable. 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 [...] AM EDT Office Visit Hematology/Oncology at [address] [phone] Boy Tovar MD [facility] [address] [place] [address] 10/17/2023 9:00 AM EDT Infusion Hematology Oncology at [address] [phone] Scheduled Orders Name Type Priority Associated Diagnoses Orde r Schedule CT Chest w Contrast Imaging Routine Primary malignant 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 Expected: 08/06/2023 (Approximate), Expires: 02/05/2024 CBC (with Diff) Lab Routine Primary malignant 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 Expected: 08/03/2023 (Approximate), Expires: 02/02/2024 Comprehensive metabolic panel (non-fasting) Lab Routine Primary malignant 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 Expected: 08/03/2023 (Approximate), Expires: 02/02/2024 documented as of this encounter Visit Diagnoses [...] gland documented in this encounter Care Teams Drafter Electromechanical Relationship Specialty Start Date End Date Nick Martinez MD [address] [place] [address] PCP - General Internal Medicine 07/01/18 documented as of this encounter
--- OUTSIDE RECORDS SUMMARY | 2023-10-17 03:59 | XMS_ITS | Encounter Summary ---
Author Organization [facility] [place] [address] Care Team Providers Care Clothing Supervisor Name Role Phone Nick Martinez MD Primary Care Provider [phone] Encounter Details Date Type Department Care Team (Late st Contact Info) Description 04/29/2023 2:00 PM EST Office Visit Radiation Oncology at [address] [phone] Carlos Marie MD [facility] [place] [address] Brain metastasis Social History Tobacco Use Types Packs/Day Years Used Date Smoking Tobacco: Former Smokeless Tobacco: Current Chew Comments:1 can per day. Plan s to quit today 02/04/21 Alcohol Use Standard Drinks/Week Comments Yes 0 (1 standard drink = 0.6 oz pur e alcohol) on occassion only [facility] Utilities Answer Date Recorded In the past 12 months has [employer] electric, gas, oil, or water company threatened [...] Sign Reading Time Taken Comments Blood Pressure 130/83 04/29/2023 1:58 PM EST Pulse 80 04/29/2023 1:58 PM EST Temperature 37 ??C (98.6 ??F) 04/29/2023 1:58 PM EST Respiratory Rate 18 04/29/2023 1:58 PM EST Oxygen Saturation 99% 04/29/2023 1:58 PM EST Inhaled Oxygen Concentration - - Weight 118.8 kg (262 lb) 04/29/2023 1:58 PM EST Height - - Body Mass Index 36.68 02/04/2023 8:55 AM EST documented in this encounter Progress Notes * Toya Leung, RN - 04/29/2023 2:00 PM EST RADIATION ONCOLOGY NURSING INITIAL NURSING ASSESSMENT Chief complaint: Brain CA NPW ADVANCE DIRECTIVES: did not discuss today PRESENTING SYSTEMS and PATHOLOGY: Seizures Weakness in legs REVIEW OF SYSTEMS: see questionnaire Medical history: Past Medical History: Diagnosis Date Lung cancer Surgical history: Past Surgical History: Procedure Laterality Date CT GUIDED BIOPSY LUNG 12/01/2020 CT Guided Biopsy Lung 12/01/2020 Jarad Parada, DO [facility] RAD CAT SCAN PRO BRNCHSC EBUS GUIDED SAMPL 3/> NODE STATION/STRUX N/A 12/31/2020 BRONCH, W ENDOBRONCHIAL ULTRASOUND (EBUS) GUIDED SAMPLING, 3+ NODES (WRVU 5.21) performed by Roman Teran MD at [facility] MAIN OR Social History: Driving from [employer] [place] Alcohol/Drug/Tobacco use - Occasional alcohol use. Chews tobacco. 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 Plans to quit today 02/04/21 Vaping Use Vaping Use: Never used Substance and Sexual Activity Alcohol use: Yes Comment: on occassion only Drug use: Never Sexual activity: Not on file Other Topics Concern Not on file Social History Narrative Not on file Social Determinants of Health Financial Resource Strain: Medium Risk (04/29/2023) Overall Financial Resource Strain (CARDIA) Difficulty of Paying Living Expenses: Somewhat hard Food Insecurity: Unknown (04/29/2023) Hunger Vital Sign Worried About Running Out of Food in the Last Year: Patient declined Ran Out of Food in the Last Year: Not on file Transportation Needs: No Transportation Needs (04/29/2023) PRAPARE - Transportation Lack of Transportation (Medical): No Lack of Transportation (Non-Medical): No Physical Activity: Not on file Intimate Partner Violence: Not on file Housing Stability: Low Risk (04/29/2023) Housing Stability Vital Sign Unable to Pay for Housing in the Last Year: No Number of Places Lived in the Last Year: 1 Unstable Housing in the Last Year: No Family History of cancer: Family History Problem Relation Age of Onset Prostate Cancer Father Lymphoma Sister Prior radiation/chemo/immunotherapy: Yes - here with Dr. Ross/Dr. Tovar for lung CA in 2020 RADIATION SPECIFIC REVIEW: NO: YES: Claustrophobia or requires sedation for MRIs X Allergy to CT or MRI contrast agent or iodine or shellfish X Diabetic and on metformin X Metal in body, implanted device, worked with metal, body piercings,braces X hearing device X Dentures X Pacemaker X Difficulty breathing while lying flat H/O Sclera derma X Currently X Active lupus X Kidney problems/creatinine X Balance difficulty: Yes. Has had a few falls this past week. At risk for fall: Yes If yes, actions implemented to prevent fall: Patient/family instructed to avoid independent ambulation. Use wheelchair and ask for assistance of staff while in the clinic. ADL [ ] no limits [ X ] needs dressing assistance [ X ] needs meal assistance Assistive device:[ X ]none [ ]cane [ ]walker [ ]wheelchair [ ]other: explain PAIN ASSESSMENT: [ 0 ] out of 10 Location: Description: [ ] Dull [ ] Sharp [ ] Burning [ ] Throbbing [ ] Radiating [ ] Continuous [ ]Intermittent Aggravating Factors: [ ] Movement [ ] Position [ ]Immobility [ ]Other Alleviating Factors: [ ]Medication [ ] Positioning [ ] Other Current Pain Management Plan: [ ]Satisfied [ ] Not satisfied SOCIAL ASSESSMENT: See [facility] social assessment information entered. Support Systems: , kids transportation plan: [ X]private vehicle [ ] RCT needs Social Work referral [ ] Unknown at this time needs Social Work referral Barriers to treatment: None Referrals/Interventions: Will see ROCKET ENGINE MECHANIC per routine during SIM appointment. TEACHING: Learning Assessment Does the primary learner have any barriers to learning?: No Barriers How does the primary learner prefer to learn new concepts?: Listening, Reading, Demonstration, Pictures/Video Education material provided: Will be provided during SIM appointment per routine * Carlos Marie MD - 04/29/2023 2:00 PM EST Images from the original note were not included. [facility] Medicine Radiation Oncology Radiation Oncology Consultation Report n Patient identifiers/demographics: Name: Raffy Latif Date of : 1960 Referring physician/service: Nick Martinez MD [address] [place] [phone] Primary oncologist: Agustin Tovar MD Primary care physician: Nick Martinez MD [address] [place] [phone] Chief complaint/reason for visit: Lung cancer new diagnosis of brain metastasis n Clinical history/background: Raffy Latif is seen for a in person consultation in the radiation oncology clinic. Diagnosed with stage III lung cancer in 01/2021. Treated with concurrent chemo/RT (60Gy 30 fractions) with carboplatin/taxol completed 03/2021 12 cycles of consolidation durvalumab completed 02/2022 Has been JEFFREY on FU/surveillance imaging. ~1 month ago started to experience weakness of right side of his body (primarily left/foot to a lesser degree arm/hand). Symptoms progressed and he experienced right leg partial seizure on Tuesday night. Presented to ED at [facility] and head CT was done that showed probable tumor in left frontal/parietalbrain. MRI done as outpatient that shows ~2 cm rim enhancing tumor c/w metastasis centered in left frontal lobe (pre-motor cortex) contacting motor strip with extensive vasogenic edema throughout left frontal and parietal lobes. Current symptoms described as coordination issues (eg can move foot, but can't get it in shoe; can hold cup, but tends to drop it after 10-20 seconds). He is ambulating but leg gets weak after walking moderate distance and will start to limp. 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 He was in ED at yesterday. Was given 10 mg IV dexamethasone and d/c with Rx for 4 mg BID. Also on Keppra for seizures (no repeat episodes since Tuesday). He had PET/CT earlier today (no official read yet) that shows JEFFREY c/a/p. I have personally reviewed the imaging studies referenced above. Review of systems: I reviewed and agree with the nursing review of systems accompanying this encounter. The remainder of the comprehensive review of systems was negative with the exception of the pertinent positives and negatives noted above. Medications/Allergies: Current Outpatient Medications on File Prior to Visit Medication Sig Dispense Refill omeprazole (PriLOSEC) [address] capsule Take 20 mg by mouth daily. levETIRAcetam (Keppra) 500 mg tablet Take 500 mg by mouth 2 times daily. dexAMETHasone (Decadron) 4 mg tablet Take 1 tablet by mouth 2 times daily (with meals). (Patient taking differently: Take 2 mg by mouth 2 times daily (with meals).) 30 tablet 0 LORazepam (Ativan) 0.5 mg tablet Take 1 tablet 90 minutes prior to scan if the desired effect is not felt, please take a second tablet 30 minutes before scan 2 tablet 0 Advair HFA 115-21 mcg/actuation HFA Aerosol Inhaler Inhale 2 puffs into the lungs 2 times daily. albuteroL 90 mcg/actuation HFA Aerosol Inhaler Inhale 2 puffs into the lungs every 4 hours as needed for Wheezing. Use with spacer 1 each 1 acetaminophen (Tylenol) 500 mg Tablet Take 1,000 mg by mouth every 6 hours as needed for Pain. nicotine polacrilex (Commit) [address] 1 lozenge inside cheek as needed for Smokingcessation (1 lozenge every 1 to 2 hours (maximum: 5 lozenges every 6 hours; 20 lozenges/day). (Patient not taking: Reported on 04/29/2023) 100 tablet 3 nicotine polacrilex (Nicorette) 4 mg gum Take 1 each by mouth as needed for Smoking cessation (Chew1 piece of gum every 1 to 2 hours (maximum: 24 pieces/day)). (Patient not taking: Reported on 04/29/2023) 100 tablet 3 calcium carbonate (Tums) 200 mg calcium (500 mg) Tablet, Chewable Take 1 tablet by mouth daily. Current Facility-Administered Medications on File Prior to Visit Medication Dose Route Frequency Provider Last Rate Last Admin [COMPLETED] fludeoxyglucose (F-18) FDG injection 0-20 mCi 0-20 mCi Intravenous Once PRN Rashaun Lewis MD 10 mCi at 04/29/23 1101 Allergies Allergen Reactions Penicillins Nausea Only Physical Exam: Patient Vitals for the past 24 hrs: Temp Pulse Resp BP SpO2 04/29/23 1358 37 ??C (98.6 ??F) 80 18 130/83 99 % NAD NCAT, symmetric face, Senior Net Developer Architect intact, speech normal UE/LE strength and sensation normal Gait normal for short distance Performance status: KPS 70-80% ECOG 1 Restricted in physically strenuous activity but ambulatory and able to carry out work of a light or sedentary nature, e.g., light house work, office work n Summary/Recommendations: Cancer Staging: Cancer Staging Primary malignant 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 Staging form: Lung, AJCC 8th Edition - Clinical stage from 02/06/2021: Stage IIIB (cT1c, cN3, cM0) - Signed by Boy Tovar MD on 02/06/2021 Impression: Raffy Latif is a 62 y.o. male with history of stage III lung cancer treated in and [facility]. Presented to ED on Tuesday with 1 month of progressive neurological symptoms (right leg weakness and right leg partial seizure) and found to have ~2 cm right frontal lobe metastasis with extensive vasogenic/anali-tumoral edema. The metastasis appears to be centered in his left pre-motor cortex and contacts the motor cortex; edema is extensive throughout. This location explains his symptoms: normal strength and sensation with coordination problems. He feels that his symptoms have improved slightly since getting 10 mg IV dexamethasone last night in the ED. Dx is likely a solitary metastasis. D/w Dr. Floyd already, resection possible, but will be subtotal due to sensitive location. Also could be left with temporary (SMA syndrome) or permanent deficit.Ideally would want to avoid resection in this location. Since symptoms are responding favorably to steroids I proposed a trial of pulse- taper dexamethasone. As long as symptoms are improving then can treat primarily with radiosurgery. He will need to be on steroids likely 4-6 weeks or more. Since he does not have DM this should be okay. If symptoms are not responding to steroids then may need to consider resection even though expected to be partial inorder to palliate symptoms. Plan: Dexamethasone: 8 mg BID x 3 days, 4 mg BID x 3 days, 4 mg BID; I will check in early next week by phone to get update on symptoms. If improving then will schedule radiosurgery planning appointments. Will be good to have him on dex a two to three weeks prior to treatment. Thank you for allowing me to participate in the care of Raffy Latif. Carlos Marie MD [facility] Radiation Oncology [employer] (NCI) [facility] [employer] Commission on Cancer (ACS [employer]) Accredited Cancer Program [employer] (A[employer]) Accredited Radiation Oncology Program documented in this encounter Plan of Treatment Upcoming Encounters Date Type Department Care Team (Late st Contact Info) Description 10/17/2023 8:30 AM EDT Office Visit Hematology/Oncology at [address] [phone] Boy Tovar MD [facility] [address] [place] [address] 10/17/2023 9:00 AM EDT Infusion Hematology Oncology at [address] [phone] documented as of this encounter Visit Diagnoses Diagnosis Brain metastasis 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
--- OUTSIDE RECORDS SUMMARY | 2023-10-17 03:59 | XMS_ITS | Encounter Summary ---
Author Organization [facility] [place] [address] Care Team Providers Care Earth Science Faculty Member Name Role Phone Nick Martinez MD Primary Care Provider [phone] Encounter Details Date Type Department Care Team (Latest Contact Info) Description 04/28/2023 Travel Social History Tobacco Use Types Packs/Day Years Used Date Smoking Tobacco: Former Smokeless Tobacco: Current Chew Comments:1 can per day. Plan s to quit today 02/04/21 Alcohol Use Standard Drinks/Week Comments Yes 0 (1 standard drink = 0.6 oz pur e alcohol) on occassion only [facility] Utilities Answer Date Recorded [...] AM EDT Office Visit Hematology/Oncology at [address] [phone] Boy Tovar MD [facility] [address] [place] [address] 10/17/2023 9:00 AM EDT Infusion Hematology Oncology at [address] [phone] documented as of this encounter Visit Diagnoses Not on filedocumented in this encounter Care Teams Earth Science Faculty Member Relationship Specialty Start Date End Date Nick Martinez MD [address] [place] [address] PCP - General Internal Medicine 07/01/18 documented as of this encounter
--- OUTSIDE RECORDS SUMMARY | 2023-10-17 03:59 | XMS_ITS | Encounter Summary ---
Author Organization Formerly [facility] [place] [address] Care Team Providers Care Hr Manager Name Role Phone Nick Martinez MD Primary Care Provider [phone] Encounter Details Date Type Department Care Team (Latest Contact Info) Description 07/16/2022 7:42 AM EDT - 07/16/2022 7:56 AM EDT Hospital Encounter Hematology [place] [phone] Primary malignant 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 Discharge Disposition: Home Social History Tobacco Use [...] in a long term (including now)? No 02/04/2021 Sex and Gender Information Value Date Recorded Sex Assigned at Not on file Gender Identity Not on file Sexual Orientation Not on file documented as of this encounter Medications at Time of Discharge Medication Sig Dispensed Refills Start Date End Date acetaminophen (Tylenol) 500 mg Tablet Take 1,000 mg by mouth every 6 hours as needed for Pain. albuteroL 90 mcg/actuation HFA Aerosol Inhaler Inhale 2 puffs into the lungs every 4 hours as needed for Wheezing. Use with spacer 1 each 1 10/12/2021 10/18/2022 calcium carbonate (Tums) 200 mg calcium (500 mg) Tablet, Chewable Take 1 tablet by mouth daily. 05/19/2023 LORazepam (Ativan) 0.5 mg Tablet Take 1 tablet by mouth once for 1 dose. 4 tablet 12/22/2020 04/25/2023 documented as of this encounter Plan of Treatment Upcoming Encounters Date Type Department Care Team (Late st Contact Info) Description 10/17/2023 8:30 AM EDT Office Visit Hematology/Oncology at [address] [phone] Boy Tovar MD [facility] [address] [place] [address] 10/17/2023 9:00 AM EDT Infusion Hematology Oncology at [address] [phone] documented as of this encounter Procedures Procedure Name Priority Date/Time Associated Diagnosis Comments HEMOGRAM STAT 07/16/2022 7:50 AM EDT Primary malignant 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 DIFFERENTIAL, AUTOMATED STAT 07/16/2022 7:50 AM EDT Primary malignant 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 HC CBC,PLT & AUTO DIFF STAT 7:50 AM EDT Primary malignant 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 COMPREHENSIVE METABOLIC PANEL STAT 07/16/2022 7:50 AM EDT Primary malignant 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 documented in this encounter Results * (ABNORMAL) Differential, Automated (07/16/2022 7:50 AM EDT) Neutrophil % 75.7 % [facility] Neutrophil Absolute 5.46 1.70 - 6.10 x10(3)/mc L [facility] Lymph % 11.2 % [facility] Lymphocytes Abs 0.8(L) 0.9 - 3.2 x10(3)/mc L [facility] Monocyte % 9.0 % [facility] Monocyte Abs 0.6 0.3 - 0.9 x10(3)/mc L [facility] Eos % 1.8 % [facility] Eosinophils Abs 0.1 0.0 - 0.4 x10(3)/mc L [facility] Basophil % 0.4 % [facility] Baso Absolute 0.0 0.0 - 0.1 x10(3)/mc L [facility] Immature Gran % 1.90 % [facility] Comment: Immature granulocytes(IG's)percentage and absolute count will include metamyelocytes, myelocytes, and promyelocytes. Blood smears from CBCs yielding IG's will be scanned manually for concordance. If this scan disagrees with the automated IG or if promyelocytes are noted, a manual differential will be performed. Immature Gran Absolute 0.14(H) 0.00 - 0.04 x10(3)/mc L [facility] Blood 07/16/2022 7:50 AM EDT 07/16/2022 7:53 AM EDT Narrative Resulting Agency Comment Spec In Lab Ella Diego APRN HEMATOLOGY ORDERAB LES Performing Organization Address City/Va Hospital/ZIP Co de Phone Number [facility] [address] * Hemogram (07/16/2022 7:50 AM EDT) White Blood Cell 7.2 4.0 - 9.5 x10(3)/[facility] Red Blood Cell 4.78 4.58 - 5.54 x10(6)/[facility] Hemoglobin 14.7 13.7 - 16.5 g/dL [facility] Hematocrit 41.7 40.5 - 48.5 % [facility] Mean Cell Volume 87.2 82.9 - 93.1 fL [facility] Mean Cell Hemoglobin 30.8 27.5 - 32.1 pg [facility] Mean Cell Hemoglobin Concentration 35.3 32.0 - 35.7 g/dL [facility] Platelet 202 145 - 357 x10(3)/[facility] RDW Standard Deviation 40.0 36.0 - 45.0 fL [facility] RDW coefficient of variation 12.8 11.4 - 13.8 % [facility] Mean Platelet Volume 8.6 7.6 - 12.9 fL [facility] NRBC% auto 0.0 % [facility] NRBC Absolute 0.000 0.000 - 0.000 x10(3)/[facility] Blood 07/16/2022 7:50 AM EDT 07/16/2022 7:53 AM EDT Narrative Resulting Agency Comment Spec In Lab Ella Diego APRN HEMATOLOGY ORDERAB LES Performing Organization Address City/Va Hospital/ZIP Co de Phone Number [facility] [address] * Comprehensive metabolic panel (non-fasting) (07/16/2022 7:50 AM EDT) Glucose 102 65 - 199 mg/dL [facility] Comment:Diabetes: >=200 mg/d L plus symptoms Blood Urea Nitrogen 17 10 - 20 mg/dL [facility] Creatinine 1.20 0.80 - 1.50 mg/dL [facility] Sodium 139 135 - 145 mmol/L [facility] Potassium 4.6 3.5 - 5.0 mmol/L [facility] Comment: Please note: ??Patients with WBC >100,000 may have falsely elevated Potassium levels. ??For accurate Potassium quantification in these patients send serum separator tube (gold top) for subsequent determinations. ??Contact the Clinical Chemistry Laboratory if there are any questions. Chloride 103 98 - 107 mmol/L [facility] Carbon Dioxide 28 22 - 31 mmol/L [facility] Anion Gap 8 5 - 15 mmol/L [facility] Calcium 9.6 8.5 - 10.5 mg/dL [facility] Protein, Total 7.8 6.1 - 8.0 g/dL [facility] Albumin 4.5 3.2 - 5.2 g/dL [facility] Aspartate Aminotransferase 22 0 - 39 unit/L [facility] Alanine Aminotransferase 16 0 - 55 unit/L [facility] Alkaline Phosphatase 68 40 - 130 unit/L [facility] Bilirubin, Total 0.5 0.2 - 1.3 mg/dL [facility] Est Glomerular Filtration Rate 68 >=60 mL/min/1. 73 m?? [facility] Comment: This patient's estimated GFR was [...] and symptoms in addition to eGFR. Blood 07/16/2022 7:50 AM EDT 07/16/2022 7:53 AM EDT Narrative Resulting Agency Comment Spec In Lab Ella Diego APRN CHEMISTRY ORDERABL ES [facility] [address] documented in this encounter Visit Diagnoses Diagnosis [...] gland documented in this encounter Care Teams Hr Manager Relationship Specialty Start Date End Date Nick Martinez MD [address] [place] [address] PCP - General Internal Medicine 07/01/18 documented as of this encounter
--- OUTSIDE RECORDS SUMMARY | 2023-10-17 03:59 | XMS_ITS | Encounter Summary ---
Author Organization [facility] [place] [address] Care Team Providers Care Terrazzo Polisher Helper Name Role Phone Nick Martinez MD Primary Care Provider [phone] Encounter Details Date Type Department Care Team (Late st Contact Info) Description 04/25/2023 Orders Only Hematology [place] [address] Ella Diego APRN [facility] [place]ATOLOG[place] [address] Primary malignant neoplasm of right upper lobe [...] in a skilled nursing (including now)? No 02/04/2021 Sex and Gender Information Value Date Recorded Sex Assigned at Not on file Gender Identity Not on file Sexual Orientation Not on file documented as of this encounter Plan of Treatment Upcoming Encounters Date Type Department Care Team (Late st Contact Info) Description 10/17/2023 8:30 AM EDT Office Visit Hematology/Oncology at [address] [phone] Boy Tovar MD [facility] DR [place] [address] 10/17/2023 9:00 AM EDT Infusion Hematology Oncology at [address] [phone] documented as of this encounter Visit Diagnoses [...] gland documented in this encounter Care Teams Terrazzo Polisher Helper Relationship Specialty Start Date End Date Nick Martinez MD [address] [place] [address] PCP - General Internal Medicine 07/01/18 documented as of this encounter
--- OUTSIDE RECORDS SUMMARY | 2023-10-17 03:59 | XMS_ITS | Encounter Summary ---
Author Organization [facility] [place] [address] Care Team Providers Care Office Support Associate Name Role Phone Nick Martinez MD Primary Care Provider Reason for Referral * Diagnostic Test (Routine) - Closed Specialty Diagnoses / Procedures Referred By Contac t Referred To Contact Radiology Diagnoses Primary malignant 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 Procedures CT Chest w Contrast Ella Diego APRN [facility] DR HEMATOLOGY [place] [address] [facility] [place] [address] Referral ID Status Reason Start Date Expiration Date V isits Requested Visits Authorized [id number] Closed Specialty Service Requested 11/04/2022 05/04/2024 1 1 Reason for Visit * Diagnostic Test (Routine) - Closed Specialty Diagnoses / Procedures Referred By Contac t Referred To Contact Radiology Diagnoses Primary malignant 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 Procedures CT Chest w Contrast Ella Diego APRN [facility] [place]ATOLOG[place] [address] [facility] [place] [address] Referral ID Status Reason Start Date Expiration Date V isits Requested Visits Authorized [id number] Closed Specialty Service Requested 11/04/2022 05/04/2024 1 1 Encounter Details Date Type Department Care Team (Late st Contact Info) Description 02/04/2023 7:22 AM EST - 02/04/2023 11:59 PM EST Hospital Encounter CT Scan at [facility] [place] [address] Ella Diego APRN [facility] [place] [address] Primary malignant neoplasm of right upper lobe [...] slept in a alf (including now)? No 02/04/2021 Sex and Gender Information Value Date Recorded Sex Assigned at Not on file Gender Identity Not on file Sexual Orientation Not on file documented as of this encounter Medications at Time of Discharge Medication Sig Dispensed Refills Start Date End Date Advair HFA 115-21 mcg/actuation HFA Aerosol Inhaler Inhale 2 puffs into the lungs 2 times daily. 01/19/2023 albuteroL 90 mcg/actuation HFA Aerosol InhalerIndications:Prim poppy malignant 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 Inhale 2 puffs into the lungs every 4 hours as needed for Wheezing. Use with spacer 1 each 1 10/18/2022 acetaminophen (Tylenol) 500 mg Tablet Take 1,000 mg by mouth every 6 hours as needed for Pain. nicotine polacrilex (Commit) [address] 1 lozenge inside cheek as needed for Smoking cessation. 100 tablet 3 02/04/2023 02/08/2023 nicotine polacrilex (Nicorette) 4 mg gum Take 1 each by mouth as needed for Smoking cessation. 100 tablet 3 02/04/2023 02/08/2023 calcium carbonate (Tums) 200 mg calcium (500 mg) Tablet, Chewable Take 1 tablet by mouth daily. 05/19/2023 LORazepam (Ativan) 0.5 mg Tablet Take 1 tablet by mouth once for 1 dose. 4 tablet 12/22/2020 04/25/2023 documented as of this encounter Plan of Treatment Upcoming Encounters Date Type Department Care Team (Late st Contact Info) Description 10/17/2023 8:30 AM EDT Office Visit Hematology/Oncology at [address] [phone] Boy Tovar MD [facility] [place] [address] 10/17/2023 9:00 AM EDT Infusion Hematology Oncology at [address] [phone] documented as of this encounter Procedures Procedure Name Priority Date/Time Associated Diagnosis Comments CT CHEST W CONTRAST Routine 02/04/2023 8 :08 AM EST Primary malignant 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 documented in this encounter Results * CT Chest w Contrast (02/04/2023 8:08 AM EST) Anatomical Region Laterality Modality Chest Computed Tomogra phy Impressions 02/04/2023 9:45 AM EST 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 Stable thickening of the right adrenal gland. No new findings. Thank you for letting us participate in the care of this patient. ??If you are a health care provider and have any questions regarding this report, please contact the number below. ??For patients who have questions please contact the health auto care center manager that requested your imaging first. ? Electronically signed by: Jose Roberto Rogers MD, [facility] ??([phone]), at 02/04/2023 9:45 AM Narrative 02/04/2023 9:45 AM EST EXAMINATION: CT CHEST W CONTRAST CLINICAL HISTORY: Non-small cell lung cancer (NSCLC), non-metastatic, assess treatment response TECHNIQUE: Helical CT of the chest after the intravenous administration of contrast, 60 mL Omnipaque 350. Thin-section reconstructions as well as coronal and sagittal reformatted images were generated. COMPARISON: 11/04/2022 FINDINGS: Lungs/airways/pleura: Stable paramediastinal postradiation fibrosis in the right lung. Stable clustered small airways impaction in the right upper lobe. Stable 4 mm left upper lobe nodule on image 10 series 4 since 11/2020. No new lung nodule. The central bronchi are patent. No pleural effusion. Mediastinum/lymph nodes: No thoracic lymphadenopathy. Cardiovascular: The heart is normal in size. There is no pericardial effusion. Mid ascending aorta measures 3.8 cm, unchanged. Upper abdomen: There is hepatic steatosis. There is similar thickening of the right adrenal gland compared to prior study. Bones and soft tissues: Diffuse qualitative osteopenia. No aggressive bone lesions.=. The soft tissues are unremarkable. Procedure Note Jose Roberto Rogers MD - 02/04/2023 EXAMINATION: CT CHEST W CONTRAST CLINICAL HISTORY: Non-small cell lung cancer (NSCLC), non-metastatic,assess treatment response TECHNIQUE: Helical CT of the chest after the intravenous administrationof contrast, 60 mL Omnipaque 350. Thin-section reconstructions as well ascoronal and sagittal reformatted images were generated. COMPARISON: 11/04/2022 FINDINGS: Lungs/airways/pleura: Stable paramediastinal postradiation fibrosis in theright lung. Stable clustered small airways impaction in the right upper lobe.Stable 4 mm left upper lobe nodule on image 10 series 4 since 11/2020. No new lungnodule. The central bronchi are patent. No pleural effusion. Mediastinum/lymph nodes: No thoracic lymphadenopathy. Cardiovascular: The heart is normal in size. There is no pericardialeffusion. Mid ascending aorta measures 3.8 cm, unchanged. Upper abdomen: There is hepatic steatosis. There is similar thickening ofthe right adrenal gland compared to prior study. Bones and soft tissues: Diffuse qualitative osteopenia. No aggressivebone lesions.=. The soft tissues are unremarkable. 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 Stable thickening of theright adrenal gland. No new findings. Thank you for letting us participate in the care of this patient. If youare a health care provider and have any questions regarding this report,please contact the number below. For patients who have questions please contactthe health auto care center manager that requested your imaging first. Electronically signed by: Jose Roberto Rogers MD, [facility]([phone]), at 02/04/2023 9:45 AM Ella Diego APRN [facility] CT ORDERABLES documented in this encounter Visit Diagnoses [...] MAR Action Action Date Dose Rate Site iohexoL (Omnipaque) (350 mg/mL) solution 0-200 mL 0-200 mL, Intravenous, ONCE PRN, 1 dose, Starting on Tue02/04/23 at 0805, Until Tue02/04/23 at 0805, Per Protocol, Warning Vesicant/Irritant Medication , Radiology Contrast, Routine Given 02/04/2023 8:05 AM EST 60 mLs documented in this encounter Care Teams Office Support Associate Relationship Specialty Start Date End Date Nick Martinez MD [address] [place] [address] PCP - General Internal Medicine 07/01/18 documented as of this encounter
--- OUTSIDE RECORDS SUMMARY | 2023-10-17 03:59 | XMS_ITS | Encounter Summary ---
[place] [address] Care Team Providers Care Prosthetic Lab Technician Name Role Phone Nick Martinez MD Primary Care Provider [phone] Encounter Details Date Type Department Care Team (Late st Contact Info) Description 02/08/2023 Telephone Hematology [place] [address] James Javier RN Social History [...] slept in a retirement (including now)? No 02/04/2021 Sex and Gender Information Value Date Recorded Sex Assigned at Not on file Gender Identity Not on file Sexual Orientation Not on file documented as of this encounter Miscellaneous Notes * Telephone Encounter - James Javier RN - 02/08/2023 2:27 PM EST Message receive from [facility]: nicotine polacrilex (Commit) 2 mg buccal lozenge [[id number]] nicotine polacrilex (Nicorette) 4 mg gum [[id number]] These are the 2 prescriptions the pharmacy is calling about. T/C to patient: Call placed to [facility] who confirmed that they need maximum daily use and frequency on Nicotine Gum and Nicotine Polacrilex. Per Dr Tovar:Ella is reordering them with some sort of limit right now documented in this encounter Plan of Treatment Upcoming Encounters Date Type Department Care Team (Late st Contact Info) Description 10/17/2023 8:30 AM EDT Office Visit Hematology/Oncology at [address] [phone] Boy Tovar MD [facility] HEMATOLOGY [place] [address] 10/17/2023 9:00 AM EDT Infusion Hematology Oncology at [address] [phone] documented as of this encounter Visit Diagnoses Not on filedocumented in this encounter Care Teams Prosthetic Lab Technician Relationship Specialty Start Date End Date Nick Martinez MD [address] [place] [address] PCP - General Internal Medicine 07/01/18 documented as of this encounter
--- OUTSIDE RECORDS SUMMARY | 2023-10-17 03:59 | XMS_ITS | Encounter Summary ---
[place] [address] Care Team Providers Care Insole Channeler Name Role Phone Nick Martinez MD Primary Care Provider [phone] Encounter Details Date Type Department Care Team (Late st Contact Info) Description 05/04/2023 Telephone [place] [address] Neha Servin RN Social History Tobacco Use Types Packs/Day Years Used Date Smoking Tobacco: Former Smokeless Tobacco: Current Chew Comments:1 can per day. Plan s to quit today 02/04/21 Alcohol Use Standard Drinks/Week Comments Yes 0 (1 standard drink = 0.6 oz pur e alcohol) on occassion only [facility] Utilities Answer Date Recorded In the past 12 months has [employer], gas, oil, or water [employer] threatened to shut off services in your [...] Telephone Encounter - Neha Servin RN - 05/04/2023 10:02 AM EST Received following message: Hawa called to let us know that the steroids that Dr. Marie gave Raffy are working wonderfully and she would like to discuss with nursing. Could someone give her a call to discuss when time allows [phone]. T/C to patient's sister as requested per pt instructions. Two pt identifiers confirmed with sister. Asking when steroids will be stopped completely. They are pleased that the symptoms are being so well managed with steroid taper and fear stopping them. Also asking if treatment appointments have been scheduled. Explained that radiation can cause inflammation early in the treatment course and can initially lead to an increase in symptoms which should decrease as treatment progresses. Dr. Marie will monitor for symptoms and modify the steroid dose accordingly. Family is aware that they should be hearing from scheduling very soon to schedule appropriate appointments. Aware to call for any further questions or concerns. documented in this encounter Plan of Treatment Upcoming Encounters Date Type Department Care Team (Late st Contact Info) Description 10/17/2023 8:30 AM EDT Office Visit Hematology/Oncology at [address] [phone] Boy Tovar MD [facility] DR HEMATOLOGY [place] [address] 10/17/2023 9:00 AM EDT Infusion Hematology Oncology at [address] [phone] documented as of this encounter Visit Diagnoses Not on filedocumented in this encounter Care Teams Insole Channeler Relationship Specialty Start Date End Date Nick Martinez MD [address] [place] [address] PCP - General Internal Medicine 07/01/18 documented as of this encounter
--- OUTSIDE RECORDS SUMMARY | 2023-10-17 03:59 | XMS_ITS | Encounter Summary ---
[place] [address] Care Team Providers Care Blackjack Pit Boss Name Role Phone Nick Martinez MD Primary Care Provider Reason for Referral * Diagnostic Test (Routine) - Denied Specialty Diagnoses / Procedures Referred By Mariana workman Referred To Contact Radiology Diagnoses Primary malignant 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 Procedures NM PET CT Skull Base to Mid-thigh Ella Diego APRN [facility] DR [place] [address] [place] [address] Referral ID Status Reason Start Date Expiration Date V isits Requested Visits Authorized [id number] Denied Specialty Service Requested 04/29/2023 04/29/2023 1 0 Encounter Details Date Type Department Care Team (Late st Contact Info) Description 04/25/2023 Orders Only [place]emat[place] [address] Ella Diego APRN [facility] [place] [address] Primary malignant neoplasm of right [...] slept in a penitentiary (including now)? No 02/04/2021 Sex and Gender Information Value Date Recorded Sex Assigned at Not on file Gender Identity Not on file Sexual Orientation Not on file documented as of this encounter Plan of Treatment Upcoming Encounters Date Type Department Care Team (Late st Contact Info) Description 10/17/2023 8:30 AM EDT Office Visit Hematology/Oncology at [address] [phone] Boy Tovar MD [facility] DR HEMATOLOGY [place] [address] 10/17/2023 9:00 AM EDT Infusion Hematology Oncology at [address] [phone] documented as of this encounter Results * NM PET CT Skull Base to Mid-thigh (04/29/2023 12:12 PM EST) Anatomical Region Laterality Modality Positron Emissio n Tomography (PET) Impressions 05/05/2023 3:23 PM EST 1. ??FDG avid nodular thickening of the right adrenal gland is new from prior PET/CT and consistent with adrenal metastasis. 2. ??New small FDG avid antwon metastasis in the abdominal aortocaval and periaortic regions. 3. ??No evidence of recurrent disease in the chest. 4. ??Please note that the brain was not included in the imaged [id number] on the current study. I have personally reviewed the image(s) and the resident's interpretation and agree with the findings, Alfredo Jean-Baptiste MD at 05/05/2023 3:23 PM Thank you for letting us participate in the care of this patient. ??If you are a health care provider and have any questions regarding this report, please contact the number below. ??For patients who have questions please contact the health health care assistant that requested your imaging first. ? Electronically signed by: Alfredo Jean-Baptiste MD, Radiology [facility] ([phone]), at 05/05/2023 3:23 PM Narrative 05/05/2023 3:23 PM EST EXAMINATION: NM PET CT STANDARD SKULL BASE TO MID-THIGH CLINICAL HISTORY: Non-small cell lung cancer, post treatment, no evidence of disease New intracranial mets, please assess for recurrence of cancer below the neck. C34.11, Malignant neoplasm of upper lobe, right bronchus or lung Additional history: Stage III lung cancer treated in with newly found metastases to the brain. TECHNIQUE: Following IV injection of 05-zrcyte-5-deoxyglucose (FDG) a standard uptake of approximately 60 minutes, a noncontrast CT scan followed by a PET scan were acquired from the base of the skull to mid thighs. The noncontrast CT was used for anatomic localization and photon attenuation correction of the PET scan. Blood glucose level: 115 (mg/dL) FDG dose: 10 mCi COMPARISON: CT chest 02/04/2023, 02/11/2021; PET/CT 01/19/2021 [...] post radiation change. No suspicious osseous lesion. Procedure Note Alfredo Jean-Baptiste MD - 05/05/2023 EXAMINATION: NM PET CT STANDARD SKULL BASE TO MID-THIGH CLINICAL HISTORY: Non-small cell lung cancer, post treatment, no evidenceof disease New intracranial mets, please assess for recurrence of cancer below theneck. C34.11, Malignant neoplasm of upper lobe, right bronchus or lung Additional history: Stage III lung cancer treated in with newlyfound metastases to the brain. TECHNIQUE: Following IV injection of 98-bohjom-1-deoxyglucose (FDG) astandard uptake of approximately 60 minutes, a noncontrast CT scan followed by aPET scan were acquired from the base of the skull to mid thighs. The noncontrast CTwas used for anatomic localization and photon attenuation correction of thePET scan. Blood glucose level: 115 (mg/dL) FDG dose: 10 mCi COMPARISON: CT chest 02/04/2023, 02/11/2021; PET/CT 01/19/2021 FINDINGS: HEAD/NECK: Normal activity in all soft tissue regions of the neck and visualizedlower head. No adenopathy. CHEST: Normal activity in all soft tissue regions. No adenopathy. Stable postradiation changes in the right middle, lower and upper lobesand right hilar/perihilar region. Unchanged CT visualized sub-5 mm apical leftupper lobe nodule compared to CT chest 02/11/2021. Small hiatal hernia. Aortic and coronary artery calcifications. ABDOMEN/PELVIS: FDG avid right adrenal nodule thickening (centered on axial image 138),new from prior PET/CT of 01/19/2021. Small FDG avid aortocaval and left periaortic adenopathy (axial [id number] and 175-180), new from prior PET/CT. SKELETON/EXTREMITIES: Decreased marrow activity in the upper thoracic spine is consistent withpost radiation change. No suspicious osseous lesion. IMPRESSION 1. FDG avid nodular thickening of the right adrenal gland is new fromprior PET/CT and consistent with adrenal metastasis. 2. New small FDG avid antwon metastasis in the abdominal aortocaval and periaortic regions. 3. No evidence of recurrent disease in the chest. 4. Please note that the brain was not included in the [id number] on the current study. I have personally reviewed the image(s) and the resident's interpretationand agree with the findings, Alfredo Jean-Baptiste MD at 05/05/2023 3:23 PM Thank you for letting us participate in the care of this patient. If youare a health care provider and have any questions regarding this report,please contact the number below. For patients who have questions please contactthe health health care assistant that requested your imaging first. Electronically signed by: Alfredo Jean-Baptiste MD, [facility]([phone]), at 05/05/2023 3:23 PM Ella Diego SALVAGE SUPERVISOR IMG PET ORDERABLES documented in this encounter [...] gland documented in this encounter Care Teams Blackjack Pit Boss Relationship Specialty Start Date End Date Nick Martinez MD [address] [place] [address] PCP - General Internal Medicine 07/01/18 documented as of this encounter
--- OUTSIDE RECORDS SUMMARY | 2023-10-17 03:59 | XMS_ITS | Encounter Summary ---
Author Organization [facility] [place] [address] Care Team Providers Care Bowl Attendant Name Role Phone Nick Martinez MD Primary Care Provider [phone] Reason for Visit * Consultation (Routine) - Closed Specialty Diagnoses / Procedures Referred By Mariana workman Referred To Contact Radiation Oncology Diagnoses Secondary malignant neoplasm of brain Procedures Simulation for Radiation Therapy Planning Carlos Marie MD [facility] [place] [address] [facility] [place] [address] Referral ID Status Reason Start Date Expiration Date V isits Requested Visits Authorized [id number] Closed Consult, Test & Treat 05/11/2023 06/11/2023 4 4 Encounter Details Date Type Department Care Team (Latest Contact Info) Description 05/11/2023 8:00 AM EST Ancillary Appointment [place] [address] Carlos Marie MD [facility] [place] [address] Secondary malignant neoplasm of brain Social History Tobacco Use Types Packs/Day Years Used Date Smoking Tobacco: Former Smokeless Tobacco: Current Chew Comments:1 can per day. Plan s to quit today 12/1/21 Alcohol Use Standard Drinks/Week Comments Yes 0 (1 standard drink = 0.6 oz pur e alcohol) on occassion only [facility] Utilities Answer Date Recorded In the [...] Sign Reading Time Taken Comments Blood Pressure 142/78 05/11/2023 7:41 AM EST Pulse 80 05/11/2023 7:41 AM EST Temperature 36.4 ??C (97.5 ??F) 05/11/2023 7:41 AM ES T Respiratory Rate 18 05/11/2023 7:41 AM EST Oxygen Saturation - - Inhaled Oxygen Concentration - - Weight 121.5 kg (267 lb 12.8 oz) 05/11/2023 7:41 AM EST Height - - Body Mass Index 37.49 02/04/2023 8:55 AM EST documented in this encounter Patient Instructions * Patient Instructions* Kasey Overton RN - 05/11/2023 8:00 AM EST Radiation Oncology Nursing Note: Open Mask Stereotactic Radiosurgery (SRS) Patient Teaching Rationale for treatment: SRS allows high dose of radiation to be given to small areas of disease within the brain, sparing normal surrounding tissue. Preparation for Open Face Mask SRS: You will have an MRI and appointment with a neurosurgeon within 2 weeks of the scheduled SRS procedure. You will meet with your radiation oncologist and sign a consent form for the procedure. You will be scheduled for a radiation simulation. This involves a CT scan of the lesion(s). This isto be used as a mapping to plan the procedure. A mask will be made to fit your head, outlining yourface and then attached to the table to keep your head still for the procedure. This ensures accurate delivery of the radiation. Plan about 90 minutes for this simulation. You will be given a prescription for dexamethasone 2mg daily x 5 days to start taking 2 days beforethe SRS, unless otherwise specified. Take this medication with food preferably earlier in the day. Day of SRS: Please arrive 30 minutes before the procedure to meet with the doctor. The nurse will ask if you need any medication for anxiety, pain or nausea. You will be required to lie flat for 30 - 60 minutes during the SRS procedure. You can bring in your own anxiety, pain or nausea medication from home to take as needed. If you do not have your own medication, we can provide it for you. Treatment takes approximately 30 minutes for each site that is being treated. Usually no more than three sites are treated in one session. The therapist and physicist can see and hear you throughout your treatment so please let them know if you need anything. Completion of treatment: You will need someone to drive you home. You may not drive or swim for 72 hours. You will need someone with you for 72 hours as well. Remember to continue the dexamethasone as directed by your doctor. Follow up: A nurse will call you in 7-10 days after your procedure to see how you are doing. You will return for an MRI as directed. Please call or email us with any questions or concerns. We can be reached at [phone] Tuesday through Tuesday 8 am to 5 pm or via [email or web address] for email. For emergent situations please call [phone] and ask for the Radiation Oncologist carton filling machine operator. Dr Marie documented in this encounter Plan of Treatment Upcoming Encounters Date Type Department Care Team (Late st Contact Info) Description 10/17/2023 8:30 AM EDT Office Visit Hematology/Oncology at [address] [phone] Boy Tovar MD [facility] DR [place] [address] 10/17/2023 9:00 AM EDT Infusion Hematology Oncology at [address] [phone] documented as of this encounter Visit Diagnoses [...] gland documented in this encounter Care Teams Bowl Attendant Relationship Specialty Start Date End Date Nick Martinez MD [address] [place] [address] PCP - General Internal Medicine 07/01/18 documented as of this encounter
--- OUTSIDE RECORDS SUMMARY | 2023-10-17 03:59 | XMS_ITS | Encounter Summary ---
Author Organization [facility] [place] [address] Care Team Providers Care Media Marketing Manager Name Role Phone Nick Martinez MD Primary Care Provider [phone] Encounter Details Date Type Department Care Team (Late st Contact Info) Description 10/18/2022 Orders Only Hematology/Oncology at [address] [phone] Bisi Hollis APRN [address] [place] [address] DR HEMATOLOGY [place] [address] Primary malignant neoplasm of right [...] slept in a fdc (including now)? No 02/04/2021 Sex and Gender Information Value Date Recorded Sex Assigned at Not on file Gender Identity Not on file Sexual Orientation Not on file documented as of this encounter Plan of Treatment Upcoming Encounters Date Type Department Care Team (Late st Contact Info) Description 10/17/2023 8:30 AM EDT Office Visit Hematology/Oncology at [address] [phone] Boy Tovar MD [facility] DR HEMAT[place] [address] 10/17/2023 9:00 AM EDT Infusion Hematology Oncology at [address] [phone] documented as of this encounter Visit Diagnoses [...] gland documented in this encounter Care Teams Media Marketing Manager Relationship Specialty Start Date End Date Nick Martinez MD [address] [place] [address] PCP - General Internal Medicine 07/01/18 documented as of this encounter
--- OUTSIDE RECORDS SUMMARY | 2023-10-17 03:59 | XMS_ITS | Encounter Summary ---
Author Organization [facility] [place] [address] Care Team Providers Care Yarn Mercerizer Operator Helper Name Role Phone Nick Martinez MD Primary Care Provider [phone] Encounter Details Date Type Department Care Team (Late st Contact Info) Description 05/05/2023 Orders Only [place] [address] Carlos Marie MD [facility] DR [place] [address] Social History Tobacco Use Types Packs/Day Years Used Date Smoking Tobacco: Former Smokeless Tobacco: Current Chew Comments:1 can per day. Plan s to quit today 02/04/21 Alcohol Use Standard Drinks/Week Comments Yes 0 (1 standard drink = 0.6 oz pur e alcohol) on occassion only [facility] Utilities Answer Date Recorded In the past 12 months has [employer], gas, oil, or water company threatened [...] AM EDT Office Visit Hematology/Oncology at [address] [phone] Boy Tovar MD [facility] DR HEMATOLOGY [place] [address] 10/17/2023 9:00 AM EDT Infusion Hematology Oncology at [address] [phone] documented as of this encounter Visit Diagnoses Not on filedocumented in this encounter Care Teams Yarn Mercerizer Operator Helper Relationship Specialty Start Date End Date Nick Martinez MD [address] [place] [address] PCP - General Internal Medicine 07/01/18 documented as of this encounter
--- OUTSIDE RECORDS SUMMARY | 2023-10-17 03:59 | XMS_ITS | Encounter Summary ---
[place] [address] Care Team Providers Care Chief Of Planning Name Role Phone Nick Martinez MD Primary Care Provider Reason for Referral * Diagnostic Test (Routine) - Closed Specialty Diagnoses / Procedures Referred By Mariana workman Referred To Contact Radiology Diagnoses Secondary malignant neoplasm of brain Procedures MRI Brain wwo Stereotactic Planning Carlos Marie MD [facility] [place] [address] [place] [address] Referral ID Status Reason Start Date Expiration Date V isits Requested Visits Authorized [id number] Closed Specialty Service Requested 05/04/2023 11/01/2024 1 1 * Consultation (Routine) - Closed Specialty Diagnoses / Procedures Referred By Mariana workman Referred To Contact Radiation Oncology Diagnoses Secondary malignant neoplasm of brain Procedures Simulation for Radiation Therapy Planning Carlos Marie MD [facility] [address] [facility] [place] [address] Referral ID Status Reason Start Date Expiration Date V isits Requested Visits Authorized [id number] Closed Consult, Test & Treat 05/11/2023 06/11/2023 4 4 Encounter Details Date Type Department Care Team (Late st Contact Info) Description 05/04/2023 Notes Only Radiation Oncology at [facility] [address] Carlos Marie MD [facility] [place] [address] Social History Tobacco Use Types Packs/Day Years Used Date Smoking Tobacco: Former Smokeless Tobacco: Current Chew Comments:1 can per day. Plan s to quit today 02/04/21 Alcohol Use Standard Drinks/Week Comments Yes 0 (1 standard drink = 0.6 oz pur e alcohol) on occassion only [facility] Utilities Answer Date Recorded In the past 12 months has th e [facility], gas, oil, or water [employer] threatened to shut off services in your [...] Progress Notes * Carlos Marie MD - 05/04/2023 8:16 AM EST Images from the original note were not included. [facility] Medicine Radiation Oncology Radiation Oncology Telephone Note Patient identifiers/demographics: Name: Raffy Latif Date of : 1960 I spoke to Raffy Latif on the phone 05/03/2023 to check-in re: symptoms after higher dose dexamethasone pulse/taper. He reports feeling well. Symptoms are 90% improved and he feels largely back to his old self again. Plan: Will arrange for SRS planning per previous plan He will continue dexamethasone taper until 4 mg BID and hold until treatment Carlos Marie MD [facility] Radiation Oncology documented in this encounter Plan of Treatment Upcoming Encounters Date Type Department Care Team (Late st Contact Info) Description 10/17/2023 8:30 AM EDT Office Visit Hematology/Oncology at [address] [phone] Boy Tovar MD [facility] DR HEMATOLOGY [place] [address] 10/17/2023 9:00 AM EDT Infusion Hematology Oncology at [address] [phone] Scheduled Orders Name Type Priority Associated Diagnoses Orde r Schedule Simulation for Radiation Therapy Planning Radiation Oncology Routine Secondary malignant neoplasm of brain Expected: 05/04/2023, Expires: 11/03/2023 documented as of this encounter Results * MRI Brain wwo Stereotactic Planning (05/11/2023 10:58 AM EST) Anatomical Region Laterality Modality Head Magnetic Resonan ce Impressions 05/11/2023 3:09 PM EST MRI for radiation planning purposes. Thank you for letting us participate in the care of this patient. ??If you are a health care provider and have any questions regarding this report, please contact the number below. ??For patients who have questions please contact the health child care coordinator that requested your imaging first. ? Narrative 05/11/2023 3:09 PM EST EXAMINATION: MRI BRAIN WWO STEREOTACTIC PLANNING CLINICAL HISTORY: Brain metastases, monitor lung cancer w brain metastasis; for SRS planning C79.31, Secondary malignant neoplasm of brain TECHNIQUE: MRI of the brain was performed before and after the intravenous administration of 24cc Dotarem. COMPARISON: MRI brain 04/26/2023 FINDINGS: Phase artifact through the posterior fossa and serjio. Similar size of heterogeneously enhancing mass centered within the posterior left frontal lobe measuring 2.6 x 2 cm. Similar extensive surrounding vasogenic edema. No definite new enhancing lesion. No enhancing calvarial lesion. Procedure Note Alissa De Anda MD - 05/11/2023 EXAMINATION: MRI BRAIN WWO STEREOTACTIC PLANNING CLINICAL HISTORY: Brain metastases, monitor lung cancer w brain metastasis; for SRS planning C79.31, Secondary malignant neoplasm of brain TECHNIQUE: MRI of the brain was performed before and after the intravenousadministration of 24cc Dotarem. COMPARISON: MRI brain 04/26/2023 FINDINGS: Phase artifact through the posterior fossa and serjio. Similarsize of heterogeneously enhancing mass centered within the posterior left frontallobe measuring 2.6 x 2 cm. Similar extensive surrounding vasogenic edema. Nodefinite new enhancing lesion. No enhancing calvarial lesion. IMPRESSION MRI for radiation planning purposes. Thank you for letting us participate in the care of this patient. If youare a health care provider and have any questions regarding this report,please contact the number below. For patients who have questions please contactthe health child care coordinator that requested your imaging first. 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
--- OUTSIDE RECORDS SUMMARY | 2023-10-17 03:59 | XMS_ITS | Encounter Summary ---
Author Organization [facility] [place] [address] Care Team Providers Care Textile Machine Operator Name Role Phone Nick Martinez MD Primary Care Provider [phone] Reason for Visit * Diagnostic Test (Routine) - Denied Specialty Diagnoses / Procedures Referred By Mariana workman Referred To Contact Radiology Diagnoses Primary malignant 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 Procedures NM PET CT Skull Base to Mid-thigh Ella Diego APRN [facility] [place] [address] [place] [address] Referral ID Status Reason Start Date Expiration Date V isits Requested Visits Authorized [id number] Denied Specialty Service Requested 04/29/2023 04/29/2023 1 0 Encounter Details Date Type Department Care Team (Late st Contact Info) Description 04/29/2023 9:39 AM EST - 04/29/2023 11:59 PM [facility] Hospital [place] [address] Ella Diego APRN [facility] [place] [address] Discharge Disposition: Home Social History Tobacco Use Types Packs/Day Years Used Date Smoking Tobacco: Former Smokeless Tobacco: Current Chew Comments:1 can per day. Plan s to quit today 02/04/21 Alcohol Use Standard Drinks/Week Comments Yes 0 (1 standard drink = 0.6 oz pur e alcohol) on occassion only [facility] Utilities Answer Date Recorded In the [...] place to sleep or slept in a half-way (including now)? No 04/29/2023 Sex and Gender [...] 01/19/2023 albuteroL 90 mcg/actuation HFA Aerosol InhalerIndications:Sienna jeffers malignant 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 Inhale 2 puffs into the lungs every 4 hours as needed for Wheezing. Use with spacer 1 each 1 10/18/2022 acetaminophen (Tylenol) 500 mg Tablet Take 1,000 mg by mouth every 6 hours as needed for Pain. levETIRAcetam (Keppra) 500 mg tablet Take 500 mg by mouth 2 times daily. 04/25/2023 05/19/2023 dexAMETHasone (Decadron) 4 mg tablet Take 1 tablet by mouth 2 times daily (with meals). 30 tablet 04/28/2023 05/11/2023 LORazepam (Ativan) 0.5 mg tabletIndications:Prim poppy malignant [...] AM EDT Office Visit Hematology/Oncology at [address] [phone] Boy Tovar MD [facility] DR HEMATOLOGY [place] [address] 10/17/2023 9:00 AM EDT Infusion Hematology Oncology at [address] [phone] documented as of this encounter Procedures Procedure Name Priority Date/Time Associated Diagnosis Comments NM PET CT SKULL BASE TO MID-THIGH ([facility]) Routine 04/29/2023 12:12 PM EST Primary malignant 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 POCT GLUCOSE Routine 04/29/2023 10:47 AM EST documented in this encounter Results * POCT Glucose (04/29/2023 10:47 AM EST) Glucose, POC 115 65 - 199 mg/dL [facility] Comment: Supplemental ranges: <140 mg/dL before meals <180 mg/dL all other times of the day Blood 04/29/2023 10:4 7 AM EST 04/29/2023 10:47 AM EST Ella Diego APRN POINT OF CARE TEST ORDERABLES [facility] [place] [address] documented in this encounter Visit Diagnoses Not on filedocumented in this encounter Care Teams Textile Machine Operator Relationship Specialty Start Date End Date Nick Martinez MD [address] [place] [address] PCP - General Internal Medicine 07/01/18 documented as of this encounter
--- OUTSIDE RECORDS SUMMARY | 2023-10-17 03:59 | XMS_ITS | Encounter Summary ---
[place] [address] Care Team Providers Care Construction Materials Tester Name Role Phone Nick Martinez MD Primary Care Provider [phone] Encounter Details Date Type Department Care Team (Late st Contact Info) Description 08/17/2022 Orders Only Hematology [place] [address] Gladis Quiñonez Social History Tobacco Use Types Packs/Day Years [...] slept in a [facility] (including now)? No 02/04/2021 Sex and Gender Information Value Date Recorded Sex Assigned at Not on file Gender Identity Not on file Sexual Orientation Not on file documented as of this encounter Plan of Treatment Upcoming Encounters Date Type Department Care Team (Late st Contact Info) Description 10/17/2023 8:30 AM EDT Office Visit Hematology/Oncology at [address] [phone] Boy Tovar MD [facility] DR HEMATOLOGY [place] [address] 10/17/2023 9:00 AM EDT Infusion Hematology Oncology at [address] [phone] documented as of this encounter Visit Diagnoses Not on filedocumented in this encounter Care Teams Construction Materials Tester Relationship Specialty Start Date End Date Nick Martinez MD [address] [place] [address] PCP - General Internal Medicine 07/01/18 documented as of this encounter
--- OUTSIDE RECORDS SUMMARY | 2023-10-17 03:59 | XMS_ITS | Encounter Summary ---
Author Organization [facility] [place] [address] Care Team Providers Care Pneumatic Jack Operator Name Role Phone Nick Martinez MD Primary Care Provider [phone] Reason for Referral * Diagnostic Test (Routine) - Closed Specialty Diagnoses / Procedures Referred By Mariana workman Referred To Contact Radiology Diagnoses Primary malignant 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 Procedures CT Chest w Contrast Ella Diego APRN [facility] DR [place] [address] [facility] [place] [address] Referral ID Status Reason Start Date Expiration Date V isits Requested Visits Authorized [id number] Closed Specialty Service Requested 11/04/2022 05/04/2024 1 1 Reason for Visit * Reason Comments Follow-up Encounter Details Date Type Department Care Team (Late st Contact Info) Description 11/04/2022 10:30 AM EDT Office Visit Hematology [place] [address] Boy Tovar MD [facility] DR HEMAT[place] [address] Ella Diego APRN [facility] DR HEMATOLOGY [place] [address] Primary malignant neoplasm of right upper lobe [...] Sign Reading Time Taken Comments Blood Pressure 107/70 11/04/2022 10:05 AM EDT Pulse 82 11/04/2022 10:05 AM EDT Temperature 36.1 ??C (97 ??F) 11/04/2022 10: 05 AM EDT Respiratory Rate 20 11/04/2022 10:0 5 AM EDT Oxygen Saturation 98% 11/04/2022 10: 05 AM EDT Inhaled Oxygen Concentration - - Weight 117.7 kg (259 lb 7.7 oz) 023 10:05 AM EDT Height 182.9 cm (6') 11/04/2022 10:05 AM EDT Body Mass Index 35.19 11/04/2022 10:05 AM EDT documented in this encounter Progress Notes * Ella Diego, SEISMIC COMPUTER - 11/04/2022 10:30 AM EDT Images from the original note were not included. Hematology & Medical Oncology [address] [address] Raffy Latif is being seen for cT1cN3 [...] Started consolidative immunotherapy with durvalumab on 04.20.21. CT Chest on 11.04.2022 shows no obvious evidence of disease recurrence. Slightly increased nodularity in R upper lobe most consistent with inflammation seen at last scan is improved today. Reading today does note nonspecific adrenal thickening, will reassess in 3 mos. Will continue active surveillance with scans every 3 mos for the first year. Plan - Return to the clinic in [address] and labs. - Side effects from immunotherapy such as (pembrolizumab, nivolumab, ipilimumab) can occur up to 1 year or more after completing treatment. If the following symptoms occur please call your oncology team for assessment. We may ask you to come in for evaluation or have blood work done locally. Uncontrolled nausea/vomiting Fever of 100.4 ??F or greater 3 or more watery stools in 24 hours (do not take Imodium) Change in breathing or persistent cough Rash/itching/skin changes Profound fatigue, change in vision, headache New, worsening or uncontrolled symptoms Prompt treatment may be required with high dose steroids. Side effects from immunotherapy can be termite control representative or chronic, meaning they last for more than 3 months after stopping immunotherapy. - Discussed tobacco cessation and offered a referral to our tobacco cessation here at the cancer center. - Discussed need to see PCP to began regular health maintenance and screenings, overdue to colo. Ptis reluctant to do this, but said he would think about it. Ella Diego, DNP, SEISMIC COMPUTER 11/04/2022 Medical Oncology & Hematology [facility] HPI/Interval History/Subjective: Last seen 07.16.2022 Overall feeling well. Does have occasional cough, but otherwise no new/worsening respiratory symptoms. LANDEROS remains stable. No CP, SOB, worsening LANDEROS, hemoptysis. No new symptoms since completing durvalumab. Denies any fevers, chills, rashes, arthralgias, headaches, dizziness, abd pain, nausea/vomiting, diarrhea, acute SOB, CP. Continues to have a busy family life his 4 children and grandchildren. 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 Does note he is more tired than he used to be, but is still able to put in 12hour days. Does not have a PCP at this time. Reports he has never had cholesterol, PSA, colonoscopy etc. Encouraged pt setting this up. No specific symptoms or concerns to discuss today. Social History/Support Network: Home situation: Lives with in [facility] with Velvet. 35 years. 3 children and plan to adopt another one through foster care. 1 grandchild Employment: [employer] Tobacco use: Quit in 1999. 38 Pk [...] (cT1c, cN3, cM0) - Signed by Boy Toavr MD on 02/06/2021 Presentation: Hx of lung [...] Exam: Wt Readings from Last 3 Encounters: 11/04/22 117.7 kg (259 lb 7.7 oz) 07/16/22 116.8 kg (257 lb 8 oz) 04/15/22 116.2 kg (256 lb 2.8 oz) Temp Readings from Last 3 Encounters: 11/04/22 36.1 ??C (97 ??F) (Temporal) 07/16/22 36.4 ??C (97.5 ??F) (Temporal) 04/15/22 35.9 ??C (96.6 ??F) (Temporal) BP Readings from Last 3 Encounters: 11/04/22 107/70 07/16/22 117/79 04/15/22 118/63 Pulse Readings from Last 3 Encounters: 11/04/22 82 07/16/22 98 04/15/22 100 Body surface area is 2.45 meters squared. Wt Readings from Last 3 Encounters: 11/04/22 117.7 kg (259 lb 7.7 oz) 07/16/22 116.8 kg (257 lb 8 oz) 04/15/22 116.2 kg (256 lb 2.8 oz) KPS Score ECOG Grade Definition 90-100 [...] totally confined to bed or chair BP 107/70 (Patient Position: Sitting) Pulse 82 Temp 36.1 ??C (97 ??F) (Temporal) Resp 20 Ht182.9 cm (6') Wt 117.7 kg (259 lb 7.7 oz) SpO2 98% BMI 35.19 kg/m?? Physical Exam Constitutional: General: Not in [...] (non-fasting) Result Value Ref Range Glucose Lvl 105 65 - 199 mg/dL BUN 16 10 - 20 mg/dL Creatinine 1.19 0.80 - 1.50 mg/dL Sodium 139 135 - 145 mmol/L Potassium 4.4 3.5 - 5.0 mmol/L Chloride 101 98 - 107 mmol/L CO2 28 22 - 31 mmol/L Anion Gap 10 5 - 15 mmol/L Calcium 9.5 8.5 - 10.5 mg/dL Total Protein 7.7 6.1 - 8.0 g/dL Albumin 4.5 3.2 - 5.2 g/dL AST 21 0 - 39 unit/L ALT 19 0 - 55 unit/L Alk Phos 63 40 - 130 unit/L Total Bilirubin 0.6 0.2 - 1.3 mg/dL Estimated GFR 68 >=60 mL/min/1.73 m?? Magnesium Result Value Ref Range Magnesium 0.89 0.69 - 1.07 mmol/L T4, free Result Value Ref Range Free T4 1.16 0.93 - 1.70 ng/dL TSH Result Value Ref Range TSH 3.26 0.27 - 4.20 mcIU/mL Hemogram Result Value Ref Range WBC 5.5 4.0 - 9.5 x10(3)/mcL RBC 4.62 4.58 - 5.54 x10(6)/mcL Hemoglobin 14.4 13.7 - 16.5 g/dL Hematocrit 40.7 40.5 - 48.5 % MCV 88.1 82.9 - 93.1 fL MCH 31.2 27.5 - 32.1 pg MCHC 35.4 32.0 - 35.7 g/dL Platelets 217 145 - 357 x10(3)/mcL RDWSD 39.4 36.0 - 45.0 fL RDWCV 12.4 11.4 - 13.8 % MPV 8.7 7.6 - 12.9 fL nRBC % Auto 0.0 % nRBC Abs Auto 0.000 0.000 - 0.000 x10(3)/mcL Differential, Automated Result Value Ref Range Neutrophils % 67.3 % Neutr Abs (ANC) 3.68 1.70 - 6.10 x10(3)/mcL Lymphocytes % 17.6 % Lymphocytes Abs 1.0 0.9 - 3.2 x10(3)/mcL Monocytes % 11.2 % Monocyte Abs 0.6 0.3 - 0.9 x10(3)/mcL Eosinophils % 1.8 % Eosinophils Abs 0.1 0.0 - 0.4 x10(3)/mcL Basophils % 0.5 % Basophils Abs 0.0 0.0 - 0.1 x10(3)/mcL Immature Gran % 1.60 % Yolanda Gran Abs 0.09 (H) 0.00 - 0.04 x10(3)/mcL 02/08/22 WBC 6.49, H/H 14/39.4, plt 200, ANC 4960, Na 141, K 3.6, BUN 20, Creat 1.5, Mg 1.9, t bili 0.5, AST24, ALT 30, alk phos 85, total protein 8.1, TSH 3.99, free t4 0.87. Remainder of chemistries otherwise unremarkable. 01/11/22 WBC 6.97, H/H 13.7/39.9, plt 209, ANC 5450, Na 143, K+ 3.9, BUN 24, creat 1.2, t bili 0.5, AST 20, ALT 21, alk phos 72, TSH 3.93, Free t4 0.77 10.10.22 Sodium 139 potassium 3.7 chloride 103 BUN 16 creatinine 1.3 up from 1.1 glucose 94 calcium 9.2 magnesium 1.8 total bilirubin 0.4 AST 21 ALT 22 alk phos 73 albumin 4.0 TSH 2.98 Free T4 0.78 White blood cell count 6.91 hemoglobin 13.7 platelet count 206,000 absolute neutrophil count 5.07 11/16/21 WBC 7.26, Hgb 13.8, Hct 38, plt 209, ANC 5.56 Glucose 99, Na 140, K 3.5, Calcium 9.2, BUN 18, Creat 1.1, Mg 1.8, T Bili 0.5, AST 20, ALT 24, Alk Phos 75, T protein 8.2, Albumin 3.9, TSH 2.13, Free T4 0.83 10/12/21 WBC 6.15, Hgb 13, Plt 190, ANC 4.62 Na 142, K+ 3.8, BUN 18, Creat 1.0, Glucose 100, Calcium 9.1, Mag 2.0, total Bili 0.4, AST 17, ALT 20, Alk Phos 70, total Prot 7.7 albumin 3.8, TSH 2.83, Free T4 0.85 09/14/21 WBC 6.28, Hgb 13.6, Plt Ct 191, ANC 4.76 Na 139, K+ 4.1, BUN 18, Creat 1.0, Glucose 99, Calcium 9.1, Mag 1.9, total Bili 0.4, AST 17, ALT 14, Alk Phos 64, Total Prot 7.8, albumin 3.8, TSH 2.87, Free T4 0.84 6.6.22 Sodium 140 potassium 4.4 chloride 105 BUN 14 creatinine 1.1 glucose 88 calcium 9.2 magnesium 2.0 total bilirubin 0.4 AST 16 ALT 17 alk phos 80 albumin 3.6 TSH 2.51 Free T4 0.78 White blood cell count 6.24 hemoglobin 13.5 platelet count 201,000 absolute neutrophil count 4.63 5.9.22 White blood cell count 6.77 hemoglobin 13.3 up from 12.0 platelet count 196,000 and absolute neutrophil count 5.32 Sodium 139 potassium 3.9 BUN 19 creatinine 1.0 glucose 104 calcium 9.4 total bilirubin 0.5 AST 14 ALT 16 alk phos 72 albumin 3.6 TSH 1.11 and free T4 0.80 06/15/21- WBC-6.54 Hgb/Hct-12.0/37.3 Plt-280 ANC-5.04 Na-139 K+-3.7 BUN/Cr-12/1.0 Glucose-110 Ca-9.1 Mg-2.1 T. Bili-0.3 AST-17 ALT-12 Alk phos-74 Albumin-3.4 TSH-0.45 Free T4-1.01 3.24.22 Labs from the ED 05/18/21- WBC-5.42 Hgb/Hct-10.4/32.0 Plt-272 ANC-4.03 Na-141 K+-3.5 BUN/Cr-12/0.9 Glucose-80 Ca-8.9 Mg-2.0 T. Bili-0.4 AST-13 ALT-15 Alk phos-65 Albumin-3.1 TSH-0.47 Free T4-0.92 04/13/21- WBC-3.07 Hgb/Hct-10.0/30.2 Plt-229 ANC-2.60 Na-140 K+-4.3 BUN/Cr-12/1.1 Glucose-113 Ca-9.4 Mg-1.8 T. Bili-0.6 AST-14 ALT-15 Alk phos-54 Albumin-3.3 04/06/21- WBC-5.27 Hgb/Hct-10.6/30.6 Plt-210 ANC-4.20 Na-134 K+-3.8 BUN/Cr-14/1.2 Glucose-119 Ca-9.0 Mg-2.0 T. Bili-0.9 AST-16 ALT-15 Alk phos-56 Albumin-3.2 03/23/21- WBC-3.87 Hgb/Hct-12.9/37.2 Plt-176 ANC-3.35 Na-140 K+-4.2 BUN/Cr-21/1.2 Glucose-103 Ca-9.3 Mg-1.9 T. Bili-0.9 AST-21 ALT-25 Alk phos-68 Albumin-4.2 1.10.22 Sodium 138 potassium 4.1 chloride 101 BUN 16 creatinine 1.2 which is stable glucose 107 calcium 9.1magnesium 1.8 LFTs within normal limits albumin 4.0 White blood cell count 3.52 absolute neutrophil count 2.76 hemoglobin 13.3 MCV 87.5 platelet count 195,000 03/09/21- WBC-4.68 Hgb/Hct-14.0/41.6 Plt-244 ANC-3.76 Na-140 K+-4.0 BUN/cr-16/1.2 Glucose-134 Ca-9.3 Mg-2.1 T. Bili-0.6 AST-22 ALT-35 Alk phos-76 Albumin-4.0 03/02/21-WBC-7.63 Hgb/Hct-14.4/43.1 Plt-274 ANC-5.92 Na-138 k+-3.8 BUN/Cr-17/1.2 Glucose-116 Ca-9.0 Mg-2.0 T. 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 No new lung nodule or thoracic lymphadenopathy. Increased thickening of the right adrenal gland is nonspecific, reassessment on follow-up imaging is recommended. 07.16.2022 CT Chest 1. Stable posttreatment changes centered in the right hilum. 2. Increase in tree-in-bud nodularity in the right upper lobe, most consistent with infectious or inflammatory pneumonitis. 2 CT Chest 1. Unchanged right perihilar opacity consistent with prior radiation therapy. 2. No new pulmonary lesions. 3. No lymphadenopathy. 4. Slowly enlarging cystic lesion in the tail of the pancreas may represent a sidebranch IPMN. Please consider follow-up CT in six months for continued assessment of growth pattern (ACR White Paper 2017). 12.28.21 CT 09.02.[address] 05.28.21 CT 04/11/21- CT chest- COMPARISON: 02/23/[address], as well as other prior studies. FINDINGS: Pulmonary parenchyma: Image blurring from respiratory motion. Unchanged 6 mm nodule at the left apex on series 7 image 73. Medial segment right middle lobe mass smaller, approximately 19 mm, with areas of cavitation, see series 7 images 288-306. Minimal residual previously seen small nodular opacities in the lateral segment of right middle lobe. No new parenchymal findings. Airways: No new findings. Pleura: No pleural effusion. Lymph nodes:Lower right hilar lymph node, 8 mm in short axis on series 5 image 31, decreased from 10 mm on series 2 image 110 of prior. Other mediastinal and hilar lymph nodes also similar to slightly smaller. No interval lymph node enlargement. Heart, pericardium, and great vessels: No central pulmonary arterial filling defects or other significant interval findings. Other mediastinal structures: Very small hiatal hernia, unchanged. Lower neck: No new findings. Upper abdomen: A few hypodensities of the body and tail of the pancreas, ranging in size from 7 to 13 mm, not appreciably changed going back to 05/26/2018, and non-FDG avid on 01/07/2021 PET/CT. Body wall soft tissues: Minimal bilateral gynecomastia unchanged. Skeletal structures: No new findings. IMPRESSION 1. Decreased size of medial segment right middle lobe mass, now with areas of cavitation. 2. Minimal residual small nodular opacities in lateral segment of right middle lobe. 3. No new pulmonary findings. 4. Decreased right hilar lymph node enlargement. 5. Small pancreatic hypodensities, not appreciably changed going back to 2019, most compatible with side-branch IPMNs. 03.21.20 MRI [facility] 01.19.21 PET scan IMPRESSION 1. Slight interval increase in size of the 2.4 cm FDG avid spiculated pulmonary nodule in the right middle lobe consistent with biopsy-proven invasive adenocarcinoma. 2. 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 3. No sites of metastatic disease in the abdomen, pelvis, or skeleton. Review o-Pathology: --Lymph node: 4L (EBUS-guided FNA) [...] 8:30 AM EDT Office Visit Hematology/Oncology at [address] [phone] Boy Tovar MD [facility] DR HEMATOLOGY AND ONCOLOGY [place] [phone] 10/17/2023 9:00 AM EDT Infusion Hematology Oncology at [address] [phone] documented as of this encounter Results * CT Chest w [...] who have questions please contact the health care director rn that requested your imaging first. ? Narrative 02/04/2023 9:45 AM EST EXAMINATION: CT [...] tissues are unremarkable. Procedure Note Jose Roberto Rgoers MD - 02/04/2023 EXAMINATION: CT CHEST W [...] patients who have questions please contactthe health care director rn that requested your imaging first. Electronically signed by: Jose Roberto Rogers MD, [facility]([phone]), at 02/04/2023 9:45 AM Ella Diego SEISMIC COMPUTER IMG CT ORDERABLES * Comprehensive metabolic panel (non-fasting) (02/04/2023 6:59 AM EST) Glucose 102 65 - 199 mg/dL [facility] Comment:Diabetes: >=200 mg/d L plus symptoms Blood Urea Nitrogen 15 10 - 20 mg/dL [facility] Creatinine 1.30 0.80 - 1.50 mg/dL [facility] Sodium 139 135 - 145 mmol/L [facility] Potassium 4.2 3.5 - 5.0 mmol/L [facility] Comment: Please note: ??Patients with WBC >100,000 may have falsely elevated Potassium levels. ??For accurate Potassium quantification in these patients send serum separator tube (gold top) for subsequent determinations. ??Contact the Clinical Chemistry Laboratory if there are any questions. Chloride 102 98 - 107 mmol/L [facility] Carbon Dioxide 31 22 - 31 mmol/L [facility] Anion Gap 6 5 - 15 mmol/L [facility] Calcium 9.1 8.5 - 10.5 mg/dL [facility] Protein, Total 7.1 6.1 - 8.0 g/dL [facility] Albumin 4.5 3.2 - 5.2 g/dL [facility] Aspartate Aminotransferase 25 0 - 39 unit/L [facility] Alanine Aminotransferase 25 0 - 55 unit/L [facility] Alkaline Phosphatase 71 40 - 130 unit/L [facility] Bilirubin, Total 0.3 0.2 - 1.3 mg/dL [facility] Est Glomerular Filtration Rate 61 >=60 mL/min/1. 73 m?? [facility] Comment: This patient's estimated GFR was [...] and symptoms in addition to eGFR. Blood 02/04/2023 6:59 AM EST 02/04/2023 7:13 AM EST Narrative Resulting Agency Comment Spec In Lab Ella Diego APRN CHEMISTRY ORDERABL ES [facility] [place] [address] documented in this encounter Visit Diagnoses Diagnosis [...] gland documented in this encounter Care Teams Pneumatic Jack Operator Relationship Specialty Start Date End Date Nick Martinez MD [address] [place] [address] PCP - General Internal Medicine 07/01/18 documented as of this encounter
--- OUTSIDE RECORDS SUMMARY | 2023-10-17 03:59 | XMS_ITS | Encounter Summary ---
Author Organization [facility] Address [facility] [place] [address] Care Team Providers Care Manager Metal Name Role Phone Nick Martinez MD Primary Care Provider [phone] Encounter Details Date Type Department Care Team (Latest Contact Info) Description 11/04/2022 7:50 AM EDT - 11/04/2022 8:10 AM EDT Hospital Encounter [place]ology [place] [phone] Discharge Disposition: Home Social History Tobacco Use [...] [place] [facility] ([facility] No 02/04/2021 Sex and Gender Information Value Date Recorded Sex Assigned at Not on file Gender Identity Not on file Sexual Orientation Not on file documented as of this encounter Medications at Time of Discharge Medication Sig Dispensed Refills Start Date End Date albuteroL 90 mcg/actuation HFA Aerosol InhalerIndications:Prima ry malignant 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 Inhale 2 puffs into the lungs every 4 hours as needed for Wheezing. Use with spacer 1 each 1 10/18/2022 acetaminophen (Tylenol) 500 mg Tablet Take 1,000 mg by mouth every 6 hours as needed for Pain. calcium carbonate (Tums) 200 mg calcium (500 [...] AM EDT Office Visit Hematology/Oncology at [address] [phone] oBy Tovar MD [facility] DR [place] [address] 10/17/2023 9:00 AM EDT Infusion Hematology Oncology at [address] [phone] documented as of this encounter Visit Diagnoses Not on filedocumented in this encounter Care Teams Manager Metal Relationship Specialty Start Date End Date Nick Martinez MD [address] [place] [address] PCP - General Internal Medicine 07/01/18 documented as of this encounter
--- OUTSIDE RECORDS SUMMARY | 2023-10-17 03:59 | XMS_ITS | Encounter Summary ---
Author Organization Formerly [facility] [place] [address] Care Team Providers Care Pbx Installer Name Role Phone Nick Martinez MD Primary Care Provider [phone] Encounter Details Date Type Department Care Team (Late st Contact Info) Description 04/25/2023 Notes [place] [address] Dimitry Floyd MD [facility] [place] [place] [address] Social History Tobacco Use Types Packs/Day Years [...] slept in a longterm (including now)? No 02/04/2021 Sex and Gender Information Value Date Recorded Sex Assigned at Not on file Gender Identity Not on file Sexual Orientation Not on file documented as of this encounter Progress Notes * Dimitry Floyd MD - 04/25/2023 7:16 AM EST Rec'd call from outside ED. Pt with cheli weeks of RLE weakness and recent seizure like activity. Pt with hx of lung ca. CT shows at least one lesion in left post frontal region, concerning for being in the primary motorcortex. Rec Keppra and dexamethasone with urgent outpt MRI +/- of brain to better assess location of this likely met and presence/absence of others. Pt should also f/u with oncology for possible re-staging. documented in this encounter Plan of Treatment Upcoming Encounters Date Type Department Care Team (Late st Contact Info) Description 10/17/2023 8:30 AM EDT Office Visit Hematology/Oncology at [address] [phone] Boy Tovar MD [facility] [address] [place] [address] 10/17/2023 9:00 AM EDT Infusion Hematology Oncology at [address] [phone] documented as of this encounter Visit Diagnoses Not on filedocumented in this encounter Care Teams Pbx Installer Relationship Specialty Start Date End Date Nick Martinez MD [address] [place] [address] PCP - General Internal Medicine 07/01/18 documented as of this encounter
--- OUTSIDE RECORDS SUMMARY | 2023-10-17 03:59 | XMS_ITS | Encounter Summary ---
Author Organization [facility] [place] [address] Care Team Providers Care Prop Setter Name Role Phone Nick Martinez MD Primary Care Provider [phone] Encounter Details Date Type Department Care Team (Latest Contact Info) Description 02/04/2023 6:50 AM EST - 02/04/2023 7:21 AM [facility] Hospital Encounter [place]ology [place] [phone] Primary malignant neoplasm of right upper lobe [...] slept in a fpc (including now)? No 02/04/2021 Sex and Gender [...] daily. 01/19/2023 albuteroL 90 mcg/actuation HFA Aerosol InhalerIndications:Prima ry [...] AM EDT Office Visit Hematology/Oncology at [address] [phone] Boy Tovar MD [facility] DR HEMATOLOGY [place] [address] 10/17/2023 9:00 AM EDT Infusion Hematology Oncology at [address] [phone] documented as of this encounter Procedures Procedure Name Priority Date/Time Associated Diagnosis Comments HEMOGRAM STAT 02/04/2023 6:59 AM EST Primary malignant 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 DIFFERENTIAL, AUTOMATED STAT 02/04/2023 6:59 AM EST Primary malignant 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 CBC (WITH DIFF) STAT 02/04/2023 6:59 AM EST Primary malignant 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 COMPREHENSIVE METABOLIC PANEL STAT 02/04/2023 6:59 AM EST Primary malignant 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 documented in this encounter Results * (ABNORMAL) Differential, Automated (02/04/2023 6:59 AM EST) Neutrophil % 69.5 % [facility] Neutrophil Absolute 4.01 1.70 - 6.10 x10(3)/mc L [facility] Lymph % 15.1 % [facility] Lymphocytes Abs 0.9 0.9 - 3.2 x10(3)/mc L [facility] Monocyte % 11.6 % [facility] Monocyte Abs 0.7 0.3 - 0.9 x10(3)/mc L [facility] Eos % 1.4 % [facility] Eosinophils Abs 0.1 0.0 - 0.4 x10(3)/mc L [facility] Basophil % 0.3 % [facility] Baso Absolute 0.0 0.0 - 0.1 x10(3)/mc L [facility] Immature Gran % 2.10 % [facility] Comment: Immature granulocytes(IG's)percentage and absolute count will include metamyelocytes, myelocytes, and promyelocytes. Blood smears from CBCs yielding IG's will be scanned manually for concordance. If this scan disagrees with the automated IG or if promyelocytes are noted, a manual differential will be performed. Immature Gran Absolute 0.12(H) 0.00 - 0.04 x10(3)/mc L [facility] Blood 02/04/2023 6:59 AM EST 02/04/2023 7:13 AM EST Narrative Resulting Agency Comment Spec In Lab Ella Diego PATTERNMAKER APPRENTICE METAL HEMATOLOGY ORDERAB LES [facility] [place] [address] * (ABNORMAL) Hemogram (02/04/2023 6:59 AM EST) White Blood Cell 5.8 4.0 - 9.5 x10(3)/[facility] Red Blood Cell 4.30(L) 4.58 - 5.54 x10(6)/[facility] Hemoglobin 13.4(L) 13.7 - 16.5 g/dL [facility] Hematocrit 38.0(L) 40.5 - 48.5 % [facility] Mean Cell Volume 88.4 82.9 - 93.1 fL [facility] Mean Cell Hemoglobin 31.2 27.5 - 32.1 pg [facility] Mean Cell Hemoglobin Concentration 35.3 32.0 - 35.7 g/dL [facility] Platelet 202 145 - 357 x10(3)/mc L [facility] RDW Standard Deviation 40.4 36.0 - 45.0 fL [facility] RDW coefficient of variation 12.6 11.4 - 13.8 % [facility] Mean Platelet Volume 9.1 7.6 - 12.9 fL [facility] NRBC% auto 0.0 % [facility] NRBC Absolute 0.000 0.000 - 0.000 x10(3)/ L [facility] Blood 02/04/2023 6:59 AM EST 02/04/2023 7:13 AM EST Narrative Resulting Agency Comment Spec In Lab Ella Diego APRN HEMATOLOGY ORDERAB LES [facility] [place] [address] * Comprehensive metabolic panel (non-fasting) (02/04/2023 6:59 AM EST) Glucose 102 65 - 199 mg/dL [facility] Comment:Diabetes: >=200 mg/d L plus symptoms Blood Urea Nitrogen 15 10 - 20 mg/dL [facility] Creatinine 1.30 0.80 - 1.50 mg/dL [facility] Sodium 139 135 - 145 mmol/L [facility] Potassium 4.2 3.5 - 5.0 mmol/L [facility] Comment: Please note: ??Patients with WBC >100,000 may have falsely elevated Potassium levels. ??For accurate Potassium quantification in these patients send serum separator tube (gold top) for subsequent determinations. ??Contact the Clinical Chemistry Laboratory if there are any questions. Chloride 102 98 - 107 mmol/L [facility] Carbon Dioxide 31 22 - 31 mmol/L [facility] Anion Gap 6 5 - 15 mmol/L [facility] Calcium 9.1 8.5 - 10.5 mg/dL [facility] Protein, Total 7.1 6.1 - 8.0 g/dL [facility] Albumin 4.5 3.2 - 5.2 g/dL [facility] Aspartate Aminotransferase 25 0 - 39 unit/L [facility] Alanine Aminotransferase 25 0 - 55 unit/L [facility] Alkaline Phosphatase 71 40 - 130 unit/L [facility] Bilirubin, Total 0.3 0.2 - 1.3 mg/dL [facility] Est Glomerular Filtration Rate 61 >=60 mL/min/1. 73 m?? [facility] Comment: This patient's estimated GFR [...] Resulting Agency Comment Spec In Lab Ella J Brandie PATTERNMAKER APPRENTICE [place] [address] documented in this encounter Visit Diagnoses Diagnosis [...] gland documented in this encounter Care Teams Prop Setter Relationship Specialty Start Date End Date Nick Martinez MD [address] [place] [address] PCP - General Internal Medicine 07/01/18 documented as of this encounter
--- OUTSIDE RECORDS SUMMARY | 2023-10-17 03:59 | XMS_ITS | Encounter Summary ---
Author Organization [facility] [place] [address] Care Team Providers Care Sales Compensation Analyst Name Role Phone Nick Martinez MD Primary Care Provider [phone] Encounter Details Date Type Department Care Team (Latest Contact Info) Description 11/04/2022 Travel Social History Tobacco Use Types Packs/Day [...] 8:30 AM EDT Office Visit Hematology/Oncology at [address] [phone] Boy Tovar MD [facility] DR HEMATOLOGY [place] [address] 10/17/2023 9:00 AM EDT Infusion Hematology Oncology at [address] [phone] documented as of this encounter Visit Diagnoses Not on filedocumented in this encounter Care Teams Sales Compensation Analyst Relationship Specialty Start Date End Date Nick Martinez MD [address] [place] [address] PCP - General Internal Medicine 07/01/18 documented as of this encounter
--- OUTSIDE RECORDS SUMMARY | 2023-10-17 03:59 | XMS_ITS | Encounter Summary ---
[place] [address] Care Team Providers Care Tailer In Name Role Phone Nick Martinez MD Primary Care Provider [phone] Reason for Referral * Diagnostic Test (Routine) - Denied Specialty Diagnoses / Procedures Referred By Contac t Referred To Contact Radiology Diagnoses Primary malignant 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 Procedures NM PET CT Skull Base to Mid-thigh Ella Diego APRN [facility] DR HEMATOLOGY [place] [address] [place] [address] Referral ID Status Reason Start Date Expiration Date V isits Requested Visits Authorized [id number] Denied Specialty Service Requested 04/29/2023 04/29/2023 1 0 Reason for Visit * Diagnostic Test (Routine) - Denied Specialty Diagnoses / Procedures Referred By Contac t Referred To Contact Radiology Diagnoses Primary malignant 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 Procedures NM PET CT Skull Base to Mid-thigh Ella Diego APRN [facility] HEMATOLOGY [place] [address] [place] [address] Referral ID Status Reason Start Date Expiration Date V isits Requested Visits Authorized [id number] Denied Specialty Service Requested 04/29/2023 04/29/2023 1 0 Encounter Details Date Type Department Care Team (Late st Contact Info) Description 04/29/2023 9:39 AM EST - 04/29/2023 11:59 PM EST Hospital Encounter [place] [phone] Ella Diego, [place] [facility] DR HEMATOLOGY [place] [address] Primary malignant 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 Discharge Disposition: Home Social History Tobacco Use Types Packs/Day Years Used Date Smoking Tobacco: Former Smokeless Tobacco: Current Chew Comments:1 can per day. Plan s to quit today 02/04/21 Alcohol Use Standard Drinks/Week Comments Yes 0 (1 standard drink = 0.6 oz pur e alcohol) on occassion only [facility] Utilities Answer Date Recorded In the [...] AM EDT Office Visit Hematology/Oncology at [address] [phone] Boy Tovar MD [facility] DR HEMATOLOGY [place] [address] 10/17/2023 9:00 AM EDT Infusion Hematology Oncology at [address] [phone] documented as of this encounter Procedures Procedure Name Priority Date/Time Associated Diagnosis Comments NM PET CT SKULL BASE TO MID-THIGH ([facility]) Routine 04/29/2023 12:12 PM EST Primary malignant 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 documented in this encounter Results * NM [...] brain was not included in the imaged ckvas-ip-caaw on the current study. I have personally [...] who have questions please contact the health complex care nurse that requested your imaging first. ? Electronically signed by: Alfredo Jean-Baptiste MD, [facility] ([phone]), at 05/05/2023 3:23 PM Narrative 05/05/2023 3:23 [...] the brain. TECHNIQUE: Following IV injection of 36-tehrle-5-deoxyglucose (FDG) a standard uptake of approximately 60 [...] the brain. TECHNIQUE: Following IV injection of 92-zcrlyn-5-deoxyglucose (FDG) astandard uptake of approximately 60 minutes, [...] avid aortocaval and left periaortic adenopathy (axial fyhtet215-620 and 175-180), new from prior PET/CT. SKELETON/EXTREMITIES: [...] the brain was not included in the adlcfmuavao-zo-wtsq on the current study. I have personally reviewed the image(s) and the resident's interpretationand agree with the findings, Alfredo Jean-Baptiste MD at 05/05/2023 3:23 PM Thank you for letting us participate in the care of this patient. If youare a health care provider and have any questions regarding this report,please contact the number below. For patients who have questions please contactthe health complex care nurse that requested your imaging first. Electronically signed by: Alfredo Jean-Baptiste MD, [facility]([phone]), at 05/05/2023 3:23 PM Ella Diego SCHEDULING CLERK IMG PET ORDERABLES documented in this encounter [...] Intravenous, ONCE PRN, 1 dose, Starting on Tue04/29/23 at 1105, Until Tue04/29/23 at 1101, Per Protocol, Radiology Contrast, Routine Given 04/29/2023 11:01 AM EST 10 mCi Right Arm documented in this encounter Care Teams Tailer In Relationship Specialty Start Date End Date Nick Martinez MD [address] [place] [address] PCP - General Internal Medicine 07/01/18 documented as of this encounter
--- OUTSIDE RECORDS SUMMARY | 2023-10-17 03:59 | XMS_ITS | Encounter Summary ---
Author Organization [facility] [place] [address] Care Team Providers Care Licensing Court Magistrate Name Role Phone Nick Martinez MD Primary Care Provider [phone] Reason for Referral * Diagnostic Test (Routine) - New Request Specialty Diagnoses / Procedures Referred By Mariana workman Referred To Contact Radiology Diagnoses Primary malignant 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 of right adrenal gland Procedures CT Chest Abdomen Pelvis w Contrast (Generic) Boy Tovar MD [facility] DR HEMATOLOGY [place] [address] [place] [address] Referral ID Status Reason Start Date Expiration Date Visits Requested Visits Authorized [id number] New Request Specialty Service Requested 05/11/2023 11/10/2024 1 1 Reason for Visit * Reason Comments Follow-up Encounter Details Date Type Department Care Team (Late st Contact Info) Description 05/11/2023 11:00 AM EST Office Visit [place]ematology [place] [phone] Boy Tovar MD [facility] HEMATOLOGY [place] [address] Nicotine dependence with nicotine-induced disorder, unspecified nicotine product type; Primary malignant 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; Brain metastasis; Secondary malignant neoplasm of right adrenal gland Social History Tobacco Use Types Packs/Day Years Used Date Smoking Tobacco: Former Smokeless Tobacco: Current Chew Comments:1 can per day. Plan s to quit today 02/04/21 Alcohol Use Standard Drinks/Week Comments Yes 0 (1 standard drink = 0.6 oz pur e alcohol) on occassion only [facility] Utilities Answer Date Recorded In the past 12 months has th e [employer], gas, oil, or water [employer] threatened to shut off services in your [...] as of this encounter Progress Notes * Boy Tovar MD - 05/11/2023 11:00 AM EST Images from the original note were not included. 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 Therefore the plan was to proceed with stereotactic radiation. He has been continued on steroids with sign ificant improvement in his symptoms. He has not had any further seizures. He has no apparent weakness at this time he says. -Plan for stereotactic radiation. -Discussed that we will prioritize treatment of his GASOLINE ENGINE INSPECTOR disease right now # NSCLC-reviewed the images of the recent PET scan which does raise the concern for extracranial recurrence with thickening of the right adrenal and then some periaortic lymph nodes that are FDG avid. 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 I do not think there easily amenable to biopsy but I discussed my concerns that this may well represent more disseminated disease. While we should still prioritize treatment of the GASOLINE ENGINE INSPECTOR lesion I think once that is completed we may want a short interval new CT scan to assess for any further progression but I would favor systemic therapy at that time with short interval restaging to gauge response. Additionally given that we cannot easily obtain a tissue biopsy would recommend obtaining a liquid biopsy to see if there are any identifiable or actionable genetic alterations # Tobacco use -discussed this at length and he is motivated and amenable to further intervention. Iprescribed Chantix and discussed the potential side effects. Also recommended that he use lozenges to help with immediate urges and cravings. Boy Tovar MD, [place] 05/11/2023 Thoracic Oncology [facility] CC: Serenity Larson [place] HPI/Interval History/Subjective: Last seen 02/04/2023 Has a new PCP- Serenity Larson APRN 6 weeks ago noted some weakness on the right side of his body and then had a right leg partial seizure which prompted a visit to [facility] where a left frontal parietal lesion was identified. MRI subsequently identified a 2 cm tumor consistent with metastases in the left frontal lobe premotor cortex region with extensive vasogenic edema the left frontal and parietal lobes. He was given IV dexamethasone and then started on oral and also started on Keppra. His breathing is okay. Has no pains other than some occasional headaches. He is eating very well while on the steroids. He is motivated to stop chewing tobacco at this point and inquires about Chantix Social History/Support Network: Home situation: Lives with in [facility] with Velvet. 35 years. 3 children and plan to adopt another one through foster care. 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 38 Pk [...] brain was not included in the imaged zeiln-ev-npwi on the current study. 08/10/2021 3:38 PM [...] Exam: Wt Readings from Last 3 Encounters: 05/11/23 121.5 kg (267 lb 12.8 oz) 04/29/23 118.8 kg (262 lb) 04/28/23 122.9 kg (271 lb) Temp Readings from Last 3 Encounters: 05/11/23 36.4 ??C (97.5 ??F) (Temporal) 04/29/23 37 ??C (98.6 ??F) (Temporal) 04/28/23 36.1 ??C (97 ??F) (Temporal) BP Readings from Last 3 Encounters: 05/11/23 142/78 04/29/23 130/83 04/28/23 (!) 128/94 Pulse Readings from Last 3 Encounters: 05/11/23 80 04/29/23 80 04/28/23 91 There is no height or weight on file to calculate BSA. Wt Readings from Last 3 Encounters: 05/11/23 121.5 kg (267 lb 12.8 oz) 04/29/23 118.8 kg (262 lb) 04/28/23 122.9 kg (271 lb) KPS Score ECOG Grade Definition 90-100 0 [...] effort is normal. Review of Laboratory Data: No results found for this or any previous visit (from the past 24 hour(s)). 02/08/22 WBC 6.49, H/H 14/39.4, plt 200, [...] AM EDT Office Visit Hematology/Oncology at [address] [phone] Boy Tovar MD [facility] HEMATOLOGY [place] [address] 10/17/2023 9:00 AM EDT Infusion Hematology Oncology at [address] [phone] Scheduled Orders Name Type Priority Associated Diagnoses Orde r Schedule CT Chest Abdomen Pelvis w Contrast (Generic) Imaging Routine 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 Secondary malignant neoplasm of right adrenal gland Expected: 06/11/2023 (Approximate), Expires: 05/10/2024 documented as of this encounter Results * Research Venipuncture (05/11/2023 12:39 PM EST) Research Venipuncture Drawn [facility] Blood 05/11/2023 12:3 9 PM EST 05/11/2023 1:05 PM EST Narrative Resulting Agency Comment Spec In Lab Boy Tovar MD CHEMISTRY ORDERABLES [facility] [place] [address] documented in this encounter Visit Diagnoses Diagnosis Nicotine dependence with nicotine-induced disorder, unspecified nicotine product type Primary malignant neoplasm of right upper lobe [...] gland documented in this encounter Care Teams Licensing Court Magistrate Relationship Specialty Start Date End Date Nick Martinez MD [address] [place] [address] PCP - General Internal Medicine 07/01/18 documented as of this encounter
--- OUTSIDE RECORDS SUMMARY | 2023-10-17 03:59 | XMS_ITS | Encounter Summary ---
Author Organization [facility] [place] [address] Care Team Providers Care Fsr Name Role Phone Nick Martinez MD Primary Care Provider [phone] Encounter Details Date Type Department Care Team (Latest Contact Info) Description 02/04/2023 Travel Social History Tobacco Use Types Packs/Day [...] AM EDT Office Visit Hematology/Oncology at [address] [phone] Boy Tovar MD [facility] DR HEMATOLOGY [place] [address] 10/17/2023 9:00 AM EDT Infusion Hematology Oncology at [address] [phone] documented as of this encounter Visit Diagnoses Not on filedocumented in this encounter Care Teams Fsr Relationship Specialty Start Date End Date Nick Martinez MD [address] [place] [address] PCP - General Internal Medicine 07/01/18 documented as of this encounter
--- OUTSIDE RECORDS SUMMARY | 2023-10-17 03:59 | XMS_ITS | Encounter Summary ---
[place] [address] Care Team Providers Care Automation Engineering Manager Name Role Phone Nick Martinez MD Primary Care Provider Encounter Details Date Type Department Care Team (Late st Contact Info) Description 04/25/2023 2:20 AM EST Ancillary Procedure [place] [address] Nick Martinez MD [address] [place] [address] Social History Tobacco Use Types [...] slept in a halfway (including now)? No 02/04/2021 Sex and Gender Information Value Date Recorded Sex Assigned at Not on file Gender Identity Not on file Sexual Orientation Not on file documented as of this encounter Plan of Treatment Upcoming Encounters Date Type Department Care Team (Late st Contact Info) Description 10/17/2023 8:30 AM EDT Office Visit Hematology/Oncology at [address] [phone] Boy Tovar MD [facility] DR HEMATOLOGY AND ONCOLOGY [place] [id number] 10/17/2023 9:00 AM EDT Infusion Hematology Oncology at [address] [phone] documented as of this encounter Procedures Procedure Name Priority Date/Time Associated Diagnosis Comments FILM LIBRARY STORAGE ONLY CT HEAD AND SPINE Routine 04/25/2023 2:18 AM EST documented in this encounter Results * Film Library- Storage Only CT Head And Spine (04/25/2023 2:18 AM EST) Narrative [facility] - 04/25/2023 2:18 AM EST This exam is auto-finalizing. It's purpose is for storage only. Nick Martinez MD IMG FILM LIBRARY ORD ERABLES [facility] [place], [place] documented in this encounter Visit Diagnoses Not on filedocumented in this encounter Care Teams Automation Engineering Manager Relationship Specialty Start Date End Date Nick Martinez MD [address] [place] [address] PCP - General Internal Medicine 07/01/18 documented as of this encounter
--- OUTSIDE RECORDS SUMMARY | 2023-10-17 03:59 | XMS_ITS | Encounter Summary ---
[place] [address] Care Team Providers Care Stage Builder Name Role Phone Nick Martinez MD Primary Care Provider [phone] Reason for Visit * Reason Comments Mass Of brain Encounter Details Date Type Department Care Team (Late st Contact Info) Description 04/28/2023 1:04 PM EST - 04/28/2023 4:14 PM EST [place] [address] Bradford Carrion [facility] [place] [address] Lilli Franz MD [facility] [place] [address] Mass of brain Discharge Disposition: Home Social History Tobacco Use Types Packs/Day Years Used Date Smoking Tobacco: Former Smokeless Tobacco: Current Chew Comments:1 can per day. Plan s to quit today 02/04/21 Alcohol Use Standard Drinks/Week Comments Yes 0 (1 standard drink = 0.6 oz pur e alcohol) on occassion only [facility] Utilities Answer Date Recorded In the past 12 months has [employer] electric, gas, oil, or water company threatened [...] Sign Reading Time Taken Comments Blood Pressure 128/94 04/28/2023 3:45 PM EST Pulse 91 04/28/2023 3:45 PM EST Temperature 36.1 ??C (97 ??F) 04/28/2023 12:57 PM EST Respiratory Rate 17 04/28/2023 3:45 PM EST Oxygen Saturation 96% 04/28/2023 3:45 PM EST Inhaled Oxygen Concentration - - Weight 122.9 kg (271 lb) 04/28/2023 12:57 PM EST Height - - Body Mass Index 37.94 02/04/2023 8:55 AM EST documented in this encounter Discharge Instructions * Discharge Instructions* Lilli Franz MD - 04/28/2023 3:35 PM EST You were seen in the emergency department for new weakness you had an MRI and were seen by neurosurgery. Keep your appointments tomorrow for PET scan and radiation oncology. Return to the emergency department if you have worsening or new symptoms. Thank you for trusting us with your care. documented in this encounter Medications at Time of Discharge [...] daily. 05/19/2023 documented as of this encounter ED Notes * Yancy Freeman RN - 04/28/2023 4:12 PM EST Pt verbalizes understanding of d/c instructions. Denies questions and concerns. Exit via ambulationw/ steady gait accompanied by family. * Yancy Freeman RN - 04/28/2023 3:[address] Franz at bedside to assess pt. * Lilli Franz MD - 04/28/2023 3:51 PM EST I assumed care of the patient and shift change. Neurosurgery has cleared the patient for discharge and follow up tomorrow for PET and appointment in rad onc. Recent Results (from the past 12 hour(s)) Comprehensive metabolic panel (non-fasting) Result Value Glucose Lvl 109 BUN 22 (H) Creatinine 1.07 Sodium 136 Potassium 4.0 Chloride 97 (L) CO2 27 Anion Gap 12 Calcium 10.3 Total Protein 8.0 Albumin 5.0 AST 24 ALT 32 Alk Phos 77 Total Bilirubin 0.5 Estimated GFR 77 Hemogram Result Value WBC 11.6 (H) RBC 4.92 Hemoglobin 15.3 Hematocrit 42.9 MCV 87.2 MCH 31.1 MCHC 35.7 Platelets 248 RDWSD 39.8 RDWCV 12.6 MPV 9.3 nRBC % Auto 0.0 nRBC Abs Auto 0.000 Differential, Automated Result Value Neutrophils % 86.9 Neutr Abs (ANC) 10.06 (H) Lymphocytes % 6.1 Lymphocytes Abs 0.7 (L) Monocytes % 5.4 Monocyte Abs 0.6 Eosinophils % 0.0 Eosinophils Abs 0.0 Basophils % 0.2 Basophils Abs 0.0 Immature Gran % 1.40 Yolanda Gran Abs 0.16 (H) Patient would like to be discharged home. Lilli Franz MD 04/28/23 1553 * Yancy Freeman RN - 04/28/2023 3:15 PM EST NSGY at bedside to reassess pt. * Bradford Carrion DO - 04/28/2023 1:48 PM EST ED Attending Note HPI: Raffy Latif is a 62 y.o. male with a history of stage IIIc NSCLC (adenocarcinoma) who underwent radiation therapy and chemo until April 2021 and then started on immunotherapy with durvalumab onFebruary 2021. He most recently saw oncology February 2023 with no indication of recurrence. Patient developed some right lower extremity weakness over the last couple weeks which prompted an emergency department visit 3 days ago at an outside hospital that showed likely metastasis with brain edema on the left hemisphere. Neurosurgery was consulted by phone he was placed on Keppra and 4 mg ofdexamethasone daily. He and family report that his right upper extremity has been significantly wors ening over the last few days. Outpatient MRI was performed last night that showed 2 x 2 x 2 cm rim-enhancing mass on the left hemisphere suspected to be metastasis. Patient is having difficulty functioning and walking and was sent here for further evaluation. He denies any headache, no significant visual changes, reports consistent issues with dropping things with his right hand and inability to text. ROS as per HPI Vitals: ED Triage Vitals [04/28/23 1257] BP: (!) 137/115 Heart Rate: 89 Resp: 20 Temp: 36.1 ??C (97 ??F) Temp src: Temporal SpO2: 98 % O2 Device: O2 Flow Rate (L/min): n/a Physical Exam Vitals and nursing note reviewed. Constitutional: Appearance: Normal appearance. HENT: Head: Normocephalic. Nose: Nose normal. Mouth/Throat: Pharynx: Oropharynx is clear. Eyes: Extraocular Movements: Extraocular movements intact. Pupils: Pupils are equal, round, and reactive to light. Cardiovascular: Rate and Rhythm: Normal rate and regular rhythm. Pulses: Normal pulses. Heart sounds: Normal heart sounds. Pulmonary: Effort: Pulmonary effort is normal. Breath sounds: Normal breath sounds. Abdominal: General: Abdomen is flat. Tenderness: There is no abdominal tenderness. Musculoskeletal: Right lower leg: Edema present. Left lower leg: Edema present. Skin: Capillary Refill: Capillary refill takes less than 2 seconds. Neurological: Mental Status: He is alert and oriented to person, place, and time. GCS: GCS eye subscore is 4. GCS verbal subscore is 5. GCS motor subscore is 6. Cranial Nerves: Cranial nerves 2-12 are intact. No dysarthria. Motor: Weakness, tremor and pronator drift present. Comments: 2/5 weakness RLE 4/5 weakness RUE RUE pronator drift Psychiatric: Mood and Affect: Mood normal. MRI showing mass in left hemisphere, likely metastasis. I have contacted NSG, plan initially to admit for IV steroids and re-staging, but pt would like to discharge. Per NSG, they would not offer surgery right now due to motor strip involvement, would rec consideration of radiation first. 10mg IV dex given. Labs pending, Signed out pending disposition, likely d/c, to have his outpt PET tomorrow and to meet with rad onc tomorrow. ED Course: I have reviewed labs and imaging, images and available reports, and they are significant for: No orders to display Assessment and Plan: 62 y.o. male with left sided brain mass Did this case involve critical care? No Bradford Carrion DO 04/28/231999 * Yancy Freeman RN - 04/28/2023 1:45 PM EST Neurosurgery at bedside to assess pt. * Yancy Freeman RN - 04/28/2023 1:[address] Carrion at bedside to assess pt. * Yancy Freeman RN - 04/28/2023 1:09 PM EST Ambulate to ED31 w/ steady gait. CCM applied. * Ting Ferguson RN - 04/28/2023 12:06 PM EST Tele ED phone note: MELISSA Coles in medical oncology referring this pt. From home to ED.Pt. has nonsmall cell lung cancer and had new seizure and leg weakness and went to an ED on 04/25/[address] which showed probable new mets and was d/c'd on dexamethasone and keppra, followed by an MRI on 04/26/23 which showed a large L frontal mass. In the mean time the weakness has gotten worse and spreadto his upper extremities R > L. Imaging has been sent to our radiology and pt. Was scheduled to have a PET scan tomorrow and was to meet with radiation oncology but with worsening weakness is coming to ED. documented in this encounter Miscellaneous Notes * Consult Note - Dimitry Floyd MD - 04/28/2023 2:35 PM EST [facility] NEUROSURGERY Consult Date: 04/28/2023 ID: Raffy Latif, 62 y.o. male : 1960 Admission Date: 04/28/2023 PCP: Nick Martinez MD Consult information: Date & time consult called: 04/28/2023 3:20 PM Date & time consult seen: 04/28/2023 3:20 PM Referring Service: ED Consulting Attending: Lilli Franz MD Neurosurgery Attending: Dimitry Floyd MD Place of Consult: [facility] CC/Reason for consult: L frontal tumor History of Present Illness: Raffy Latif is a 62 y.o. right handed male with a PMHx significant for 40 pack year smoking history (cessation 20 years ago) and RUL lung adenocarcinoma (s/p chemotherapy, RT, and immunotherapy all completed in 2021) presenting with one month of right sided weakness and suspected focal motor seizure on 04/24 found to have a L frontal mass lesion. We were initially engaged regarding this patient via the tumor hotline when the patient presented to OSH on 04/24 after episode while getting out of bed where he had a few minutes of RLE shaking that was c/f focal seizure. At that time, CT showed a L posterior frontal lesion with surrounding vasogenic edema. Dr. Floyd at that time had recommended and MRI, however the patient wished to discharge home and get the MR as an outpatient which was done on Wednesday 04/26. Subsequently he has also been started on 4mg daily of Decadron and 500mg BID keppra which seem to have improved his symptoms. He has an appointment for a PET CT for restaging and a consult with Dr. Maire of [facility] tomorrow. He alsois scheduled to see his Oncologist for further restaging in the near future. 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 His has also noticed he is hanging his right arm by his side more than would be usual. He has not had any further seizure events. He denies nausea, vomiting but does have occasional mild headaches. He is able to walk but has had a few falls he describes as slow collapse to the ground. No history of anticoagulation or antiplatelets. Past Medical History: No past medical history on file. Patient Active Problem List Diagnosis Code Primary malignant 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 C34.11 Past Surgical History: Past Surgical History: Procedure Laterality Date CT GUIDED BIOPSY LUNG 12/01/2020 CT Guided Biopsy Lung 12/01/2020 Jarad Parada, DO [facility] RAD CAT SCAN PRO [facility] EBUS GUIDED SAMPL 3/> NODE STATION/STRUX N/A 12/31/2020 BRONCH, W ENDOBRONCHIAL ULTRASOUND (EBUS) GUIDED SAMPLING, 3+ NODES (WRVU 5.21) performed by Roman Teran MD at [facility] MAIN OR Medications: No current facility-administered medications on file prior to encounter. Current Outpatient Medications on File Prior to Encounter Medication Sig Dispense Refill LORazepam (Ativan) 0.5 mg tablet Take 1 tablet 90 minutes prior to scan if the desired effect is not felt, please take a second tablet 30 minutes before scan 2 tablet 0 nicotine polacrilex (Commit) [address] 1 lozenge inside cheek as needed for Smokingcessation (1 lozenge every 1 to 2 hours (maximum: 5 lozenges every 6 hours; 20 lozenges/day). 100 tablet 3 nicotine polacrilex (Nicorette) 4 mg gum Take 1 each by mouth as needed for Smoking cessation (Chew1 piece of gum every 1 to 2 hours (maximum: 24 pieces/day)). 100 tablet 3 Advair HFA 115-21 mcg/actuation HFA Aerosol Inhaler Inhale 2 puffs into the lungs 2 times daily. albuteroL 90 mcg/actuation HFA Aerosol Inhaler Inhale 2 puffs into the lungs every 4 hours as needed for Wheezing. Use with spacer 1 each 1 calcium carbonate (Tums) 200 mg calcium (500 mg) Tablet, Chewable Take 1 tablet by mouth daily. acetaminophen (Tylenol) 500 mg Tablet Take 1,000 mg by mouth every 6 hours as needed for Pain. 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 Tobacco Use Smoking status: Former Smokeless tobacco: [...] Social Determinants of Health Financial Resource Strain: Low Risk (02/04/2021) Overall Financial Resource Strain (CARDIA) Difficulty of Paying Living Expenses: Not hard at all Food Insecurity: No Food Insecurity (02/04/2021) Hunger Vital Sign Worried About Running Out of Food in the Last Year: Never true Ran Out of Food in the Last Year: Never true Transportation Needs: No Transportation Needs (02/04/2021) PRAPARE - Transportation Lack of Transportation (Medical): No Lack of Transportation (Non-Medical): No Physical Activity: Not on file Intimate Partner Violence: Not on file Housing Stability: Low Risk (02/04/2021) Housing Stability Vital Sign Unable to Pay for Housing in the Last Year: No Number of Places Lived in the Last Year: 1 Unstable Housing in the Last Year: No Family History: No family history on file. Review of Systems: Please see HPI for pertinent details. 12 point ROS is otherwise negative. Vital Signs: Visit Vitals BP 119/79 Pulse 83 Temp 36.1 ??C (97 ??F) (Temporal) Resp 16 Wt 122.9 kg (271 lb) SpO2 98% BMI 37.94 kg/m?? Physical Exam: General: NAD. Sitting up in bed awake, pleasant. HEENT: Atraumatic, normocephalic. Cardiovascular: Regular rate and rhythm. Respiratory: Normal inspiratory effort on RA. Extremities: WWP. Neurological: Mental Status/Cognitive: GCS 15 Awake, alert, oriented x 3. Speech: Fluent, appropriate. Naming and repetition intact. Cranial Nerves: PERRL CN II: Visual espitia grossly intact. CN III, IV, : EOMI. CN V: Sensation intact in V1, 2 and 3 distributions. CN VII: No facial asymmetry/droop. CN VIII: Intact hearing bilaterally to voice. CN IX, X: Palate and uvula rise in the midline. CN XI: Trapezius strength 5/5 bilaterally. CN XII: Tongue protrudes in the midline direction. Motor: No upper extremity drift. Segment Muscle Action Right Left C5 Deltoid Shoulder Abduction 4+ 5 C6 Biceps Elbow flexion 5 5 C6 Extensor carpi radialis Wrist extension 5 5 C7 Triceps Elbow extension 5 5 C8 Finger flexors Grasp 5 5 T1 Interossei Finger abduction 4+ 5 L2 Iliopsoas Hip flexion 4+ 5 L3 Quadriceps Knee extension 4+ 5 L4 Tibialis anterior Dorsiflexion 5 5 L5 Extensor hallucis longus Great toe extension 5 5 S1 Gastrocnemius Plantar flexion 5 5 Reflexes: Reyes's: none Clonus: none Gait: Not assessed Sensation: Intact in C5-T1 dermatomes in bilateral upper extremities. Intact in L2-S1 dermatomes in bilateral lower extremities. Labs: No results for input(s): WBC, HGB, PLATELET in the last 72 hours. No results for input(s): NA, K, CL, CO2, BUN, CREATININE, GLUCOSE in the last 72 hours. No results for input(s): PT, INR in the last 72 hours. No results for input(s): AST, ALT, BILITOT, ALKPHOS, ALB, PROT, LIPASE, AMYLASE in the last 72 hours. Imaging: See below Imaging independently reviewed. Assessment: Raffy Latif is a 62 y.o. male with a PMHx significant for 40 pack year smoking history (cessation 20 years ago) and RUL lung adenocarcinoma (s/p chemotherapy, RT, and immunotherapy allcompleted in 2021) presenting with one month of right sided weakness and suspected focal motor seizure on 04/24 found to have a L frontal mass lesion c/f met. Exam showing mild right sided weakness with potentially a subtle component of neglect. He has had symptomatic improvement on Decadron and Keppra and no further seizure like events. MRI showing 2.2cm enhancing mass lesion within the posterior L frontal lobe with associated cerebral edema. Suspect that mass is occupying motor strip and discussed this relevant anatomy with the patient and his familyas it pertains to surgical options (risk of worse motor/sensory deficits specifically). I think at this time given his mild symptoms and the size of the lesion being <2.5cm as well as its anatomiclocation, it would be safest to consider radiation treatment first. The patient has an appointment w [facility] Dr. Marie tomorrow and is agreeable to proceed with this and his PET scan for restaging. We candiscuss further with Dr. Marie regarding best treatment plan after their visit. Problem List: L frontal mass Plan/Recommendations: -No acute neurosurgical intervention indicated -Continue Decadron, can consider spreading dose out to 2mg BID given patient feels as though symptomatic improvement wears off through the day -Continue Keppra 500mg BID -Proceed with [facility] visit with Dr. Marie, as well as restaging with Dr. Tovar -Ok for discharge home Today's plan of care was discussed with attending neurosurgeon, Dimitry Floyd MD. Sharmin Nice MD 04/28/2023 3:20 PM [facility] Neurosurgery Inpatient Pager: [phone] Personal Pager: [phone] There are no hospital problems to display for this patient. Active Non-Hospital Problems Diagnosis Primary malignant 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 Reviewed case. Solitary met however appears in/adjacent to notoro cortex which will limit completeness of surgical resection. [facility]. We will discuss with radonc needs/risks of surgery. documented in this encounter Plan of Treatment Upcoming Encounters Date Type Department Care Team (Late st Contact Info) Description 10/17/2023 8:30 AM EDT Office Visit Hematology/Oncology at [address] [phone] Boy Tovar MD [facility] DR HEMATOLOGY [place] [address] 10/17/2023 9:00 AM EDT Infusion Hematology Oncology at [address] [phone] documented as of this encounter Procedures Procedure Name Priority Date/Time Associated Diagnosis Comments HEMOGRAM STAT 04/28/2023 2:55 PM EST DIFFERENTIAL, AUTOMATED STAT 04/28/2023 2:55 PM EST CBC (WITH DIFF) STAT 04/28/2023 2:55 PM EST COMPREHENSIVE METABOLIC PANEL STAT 04/28/2023 2:55 PM EST documented in this encounter Results * (ABNORMAL) Differential, Automated (04/28/2023 2:55 PM EST) Neutrophil % 86.9 % [facility] Neutrophil Absolute 10.06(H) 1.70 - 6.10 x10(3)/mc L [facility] Lymph % 6.1 % [facility] Lymphocytes Abs 0.7(L) 0.9 - 3.2 x10(3)/mc L [facility] Monocyte % 5.4 % [facility] Monocyte Abs 0.6 0.3 - 0.9 x10(3)/mc L [facility] Eos % 0.0 % [facility] Eosinophils Abs 0.0 0.0 - 0.4 x10(3)/mc L [facility] Basophil % 0.2 % [facility] Baso Absolute 0.0 0.0 - 0.1 x10(3)/mc L [facility] Immature Gran % 1.40 % [facility] Comment: Immature granulocytes(IG's)percentage and absolute count will include metamyelocytes, myelocytes, and promyelocytes. Blood smears from CBCs yielding IG's will be scanned manually for concordance. If this scan disagrees with the automated IG or if promyelocytes are noted, a manual differential will be performed. Immature Gran Absolute 0.16(H) 0.00 - 0.04 x10(3)/ L [facility] Blood 04/28/2023 2:55 PM EST 04/28/2023 3:07 PM EST Narrative Resulting Agency Comment Spec In Lab Bradford Carrion DO HEMATOLOGY ORDERABLE S Performing Organization Address City/State/[facility] Co de Phone Number [facility] [place] [address] * (ABNORMAL) Hemogram (04/28/2023 2:55 PM EST) White Blood Cell 11.6(H) 4.0 - 9.5 x10(3)/mc L [facility] Red Blood Cell 4.92 4.58 - 5.54 x10(6)/mc L [facility] Hemoglobin 15.3 13.7 - 16.5 g/dL [facility] Hematocrit 42.9 40.5 - 48.5 % [facility] Mean Cell Volume 87.2 82.9 - 93.1 fL [facility] Mean Cell Hemoglobin 31.1 27.5 - 32.1 pg [facility] Mean Cell Hemoglobin Concentration 35.7 32.0 - 35.7 g/dL [facility] Platelet 248 145 - 357 x10(3)/mc L [facility] RDW Standard Deviation 39.8 36.0 - 45.0 fL [facility] RDW coefficient of variation 12.6 11.4 - 13.8 % [facility] Mean Platelet Volume 9.3 7.6 - 12.9 fL [facility] NRBC% auto 0.0 % [facility] NRBC Absolute 0.000 0.000 - 0.000 x10(3)/mc L [facility] Blood 04/28/2023 2:55 PM EST 04/28/2023 3:07 PM EST Narrative Resulting Agency Comment Spec In Lab Bradford Carrion DO HEMATOLOGY ORDERABLE S [facility] [place] [address] * (ABNORMAL) Comprehensive metabolic panel (non-fasting) (04/28/2023 2:55 PM EST) Glucose 109 65 - 199 mg/dL [facility] Comment:Diabetes: >=200 mg/d L plus symptoms Blood Urea Nitrogen 22(H) 10 - 20 mg/dL [facility] Creatinine 1.07 0.80 - 1.50 mg/dL [facility] Sodium 136 135 - 145 mmol/L [facility] Potassium 4.0 3.5 - 5.0 mmol/L [facility] Comment: Please note: ??Patients with WBC >100,000 may have falsely elevated Potassium levels. ??For accurate Potassium quantification in these patients send serum separator tube (gold top) for subsequent determinations. ??Contact the Clinical Chemistry Laboratory if there are any questions. Chloride 97(L) 98 - 107 mmol/L [facility] Carbon Dioxide 27 22 - 31 mmol/L [facility] Anion Gap 12 5 - 15 mmol/L [facility] Calcium 10.3 8.5 - 10.5 mg/dL [facility] Protein, Total 8.0 6.1 - 8.0 g/dL [facility] Albumin 5.0 3.2 - 5.2 g/dL [facility] Aspartate Aminotransferase 24 0 - 39 unit/L [facility] Alanine Aminotransferase 32 0 - 55 unit/L [facility] Alkaline Phosphatase 77 40 - 130 unit/L [facility] Bilirubin, Total 0.5 0.2 - 1.3 mg/dL [facility] Est Glomerular Filtration Rate 77 >=60 mL/min/1. 73 m?? [facility] Comment: This patient's estimated GFR was [...] and symptoms in addition to eGFR. Blood 04/28/2023 2:55 PM EST 04/28/2023 3:07 PM EST Narrative Resulting Agency Comment Spec In Lab Bradford Carrion DO CHEMISTRY ORDERABLES [facility] [place] [address] documented in this encounter Visit Diagnoses Diagnosis Mass of brain Unspecified condition of brain Primary malignant neoplasm of right [...] MAR Action Action Date Dose Rate Site dexAMETHasone (PF) (Decadron) (10 mg/mL) injection 10 mg 10 mg, Intravenous, ONCE, 1 dose, On Digna 04/28/23 at 1349 Given 04/28/2023 1:55 PM EST 10 mg documented in this encounter Active and Recently Administered Medications Times are shown in EST. Scheduled Medication Order 04/26/2023 04/27/2023 04/28/2023 dexAMETHasone (PF) (Decadron) (10 mg/mL) injection 10 mg (COMPLETED) 10 mg, Intravenous, ONCE, 1 dose, On Digna 04/28/23 at 1349 1355 (Given - Provid er: Yancy Freeman RN) documented in this encounter Care Teams Stage Builder Relationship Specialty Start Date End Date Nick Martinez MD [address] [place], [place] [id number] PCP - General Internal Medicine 07/01/18 documented as of this encounter
--- OUTSIDE RECORDS SUMMARY | 2023-10-17 03:59 | XMS_ITS | Encounter Summary ---
[place] [address] Care Team Providers Care Neuro Ophthalmologist Name Role Phone Nick Martinez MD Primary Care Provider [phone] Encounter Details Date Type Department Care Team (Latest Contact Info) Description 11/04/2022 8:15 AM EDT Laboratory Appointment Lab [address] [place] [phone] Primary malignant neoplasm of right upper lobe [...] in a senior care (including now)? No 02/04/2021 Sex and Gender Information Value Date Recorded Sex Assigned at Not on file Gender Identity Not on file Sexual Orientation Not on file documented as of this encounter Plan of Treatment Upcoming Encounters Date Type Department Care Team (Late st Contact Info) Description 10/17/2023 8:30 AM EDT Office Visit Hematology/Oncology at [address] [phone] [facility] [address] [place] [address] 10/17/2023 9:00 AM EDT Infusion Hematology Oncology at [address] [phone] documented as of this encounter Procedures Procedure Name Priority Date/Time Associated Diagnosis Comments HEMOGRAM STAT 11/04/2022 7:56 AM EDT Primary malignant 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 DIFFERENTIAL, AUTOMATED STAT 11/04/2022 7:56 AM EDT Primary malignant 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 CBC (WITH DIFF) STAT 11/04/2022 7:56 AM EDT Primary malignant 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 TSH STAT 11/04/2022 7:56 AM EDT Primary malignant 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 T4, FREE STAT 11/04/2022 7:56 AM EDT Primary malignant 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 MAGNESIUM STAT 11/04/2022 7:56 AM EDT Primary malignant 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 COMPREHENSIVE METABOLIC PANEL STAT 11/04/2022 7:56 AM EDT Primary malignant 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 documented in this encounter Results * (ABNORMAL) Differential, Automated (11/04/2022 7:56 AM EDT) Neutrophil % 67.3 % [facility] Neutrophil Absolute 3.68 1.70 - 6.10 x10(3)/mc L [facility] Lymph % 17.6 % [facility] Lymphocytes Abs 1.0 0.9 - 3.2 x10(3)/mc L [facility] Monocyte % 11.2 % [facility] Monocyte Abs 0.6 0.3 - 0.9 x10(3)/mc L [facility] Eos % 1.8 % [facility] Eosinophils Abs 0.1 0.0 - 0.4 x10(3)/mc L [facility] Basophil % 0.5 % [facility] Baso Absolute 0.0 0.0 - 0.1 x10(3)/mc L [facility] Immature Gran % 1.60 % [facility] Comment: Immature granulocytes(IG's)percentage and absolute count will include metamyelocytes, myelocytes, and promyelocytes. Blood smears from CBCs yielding IG's will be scanned manually for concordance. If this scan disagrees with the automated IG or if promyelocytes are noted, a manual differential will be performed. Immature Gran Absolute 0.09(H) 0.00 - 0.04 x10(3)/mc L [facility] Blood 11/04/2022 7:56 AM EDT 11/04/2022 8:00 AM EDT Narrative Resulting Agency Comment Spec In Lab Bisi Hollis PRODUCT MARKETER HEMATOLOGY ORDER CRISSY [facility] [place] [address] * Hemogram (11/04/2022 7:56 AM EDT) White Blood Cell 5.5 4.0 - 9.5 x10(3)/[facility] Red Blood Cell 4.62 4.58 - 5.54 x10(6)/[facility] Hemoglobin 14.4 13.7 - 16.5 g/dL [facility] Hematocrit 40.7 40.5 - 48.5 % [facility] Mean Cell Volume 88.1 82.9 - 93.1 fL [facility] Mean Cell Hemoglobin 31.2 27.5 - 32.1 pg [facility] Mean Cell Hemoglobin Concentration 35.4 32.0 - 35.7 g/dL [facility] Platelet 217 145 - 357 x10(3)/[facility] RDW Standard Deviation 39.4 36.0 - 45.0 fL [facility] RDW coefficient of variation 12.4 11.4 - 13.8 % [facility] Mean Platelet Volume 8.7 7.6 - 12.9 fL [facility] NRBC% auto 0.0 % [facility] NRBC Absolute 0.000 0.000 - 0.000 x10(3)/[facility] Blood 11/04/2022 7:56 AM EDT 11/04/2022 8:00 AM EDT Narrative Resulting Agency Comment Spec In Lab Bisi Hollis PRODUCT MARKETER HEMATOLOGY ORDER CRISSY [facility] [place] [address] * TSH (11/04/2022 7:56 AM EDT) Thyroid Stimulating Hormone 3.26 0.27 - 4.20 mcIU/mL [facility] Comment: Reference Interval (mcIU/mL): Females: ??First Trimester: 0.23-3.88 ??Second Trimester: 0.22-3.90 ??Third Trimester: 0.44-4.66 Blood 11/04/2022 7:56 AM EDT 11/04/2022 8:00 AM EDT Narrative Resulting Agency Comment Spec In Lab Bisi Roacha PRODUCT MARKETER CHEMISTRY ORDERA BLES Performing Organization Address [facility] de Phone Number [facility] [place] [address] * T4, free (11/04/2022 7:56 AM EDT) Free T4 1.16 0.93 - 1.70 ng/dL [facility] Comment: Reference Interval (ng/dL): Females: ??First Trimester: 0.97-1.68 ??Second Trimester: 0.77-1.51 ??Third Trimester: 0.77-1.49 Blood 11/04/2022 7:56 AM EDT 11/04/2022 8:00 AM EDT Narrative Resulting Agency Comment Spec In Lab Bisi Hollis PRODUCT MARKETER CHEMISTRY ORDERA BLES Performing Organization Address [facility] de Phone Number [facility] [place] [address] * Magnesium (11/04/2022 7:56 AM EDT) Magnesium 0.89 0.69 - 1.07 mmol/L [facility] Blood 11/04/2022 7:56 AM EDT 11/04/2022 8:00 AM EDT Narrative Resulting Agency Comment Spec In Lab Bisi Roacha PRODUCT MARKETER CHEMISTRY ORDERA BLES Performing Organization Address [facility] Co de Phone Number [facility] [place] [address] * Comprehensive metabolic panel (non-fasting) (11/04/2022 7:56 AM EDT) Glucose 105 65 - 199 mg/dL [facility] Comment:Diabetes: >=200 mg/d L plus symptoms Blood Urea Nitrogen 16 10 - 20 mg/dL [facility] Creatinine 1.19 0.80 - 1.50 mg/dL [facility] Sodium 139 135 - 145 mmol/L [facility] Potassium 4.4 3.5 - 5.0 mmol/L [facility] Comment: Please note: ??Patients with WBC >100,000 may have falsely elevated Potassium levels. ??For accurate Potassium quantification in these patients send serum separator tube (gold top) for subsequent determinations. ??Contact the Clinical Chemistry Laboratory if there are any questions. Chloride 101 98 - 107 mmol/L [facility] Carbon Dioxide 28 22 - 31 mmol/L [facility] Anion Gap 10 5 - 15 mmol/L [facility] Calcium 9.5 8.5 - 10.5 mg/dL [facility] Protein, Total 7.7 6.1 - 8.0 g/dL [facility] Albumin 4.5 3.2 - 5.2 g/dL [facility] Aspartate Aminotransferase 21 0 - 39 unit/L [facility] Alanine Aminotransferase 19 0 - 55 unit/L [facility] Alkaline Phosphatase 63 40 - 130 unit/L [facility] Bilirubin, Total 0.6 0.2 - 1.3 mg/dL [facility] Est Glomerular Filtration Rate 68 >=60 mL/min/1. 73 m?? [facility] Comment: This patient's estimated GFR [...] and symptoms in addition to eGFR. Blood 11/04/2022 7:56 AM EDT 11/04/2022 8:00 AM EDT Narrative Resulting Agency Comment Spec In Lab Bisi Hollis APRN CHEMISTRY ORDERA BLES [facility] [place] [address] documented in this encounter Visit Diagnoses Diagnosis [...] gland documented in this encounter Care Teams Neuro Ophthalmologist Relationship Specialty Start Date End Date Nick Martinez MD [address] [place] [address] PCP - General Internal Medicine 07/01/18 documented as of this encounter
--- OUTSIDE RECORDS SUMMARY | 2023-10-17 03:59 | XMS_ITS | Encounter Summary ---
[place] [address] Care Team Providers Care Limousine Driver Name Role Phone Nick Martinez MD Primary Care Provider [phone] Reason for Referral * Diagnostic Test (Routine) - Closed Specialty Diagnoses / Procedures Referred By Mariana workman Referred To Contact Radiology Diagnoses Secondary malignant neoplasm of brain Procedures MRI Brain wwo Stereotactic Planning Carlos Marie MD [facility] [place] [address] [place] [address] Referral ID Status Reason Start Date Expiration Date V isits Requested Visits Authorized [id number] Closed Specialty Service Requested 05/04/2023 11/01/2024 1 1 Reason for Visit * Diagnostic Test (Routine) - Closed Specialty Diagnoses / Procedures Referred By Mariana workman Referred To Contact Radiology Diagnoses Secondary malignant neoplasm of brain Procedures MRI Brain wwo Stereotactic Planning Carlos Marie MD [facility] [place] [address] [place] [address] Referral ID Status Reason Start Date Expiration Date V isits Requested Visits Authorized [id number] Closed Specialty Service Requested 05/04/2023 11/01/2024 1 1 Encounter Details Date Type Department Care Team (Latest Contact Info) Description 05/11/2023 8:51 AM EST - 05/11/2023 12:21 PM EST Hospital Encounter Radiology at [facility] [place] [address] Carlos Marie MD [facility] [place] [address] Secondary malignant neoplasm of brain Discharge Disposition: Home Social History [...] the past 12 months has th e [employer], gas, oil, or water company threatened to [...] 8:30 AM EDT Office Visit Hematology/Oncology at [address] [phone] Boy Tovar MD [facility] DR HEMATOLOGY [place] [address] 10/17/2023 9:00 AM EDT Infusion Hematology Oncology at [address] [phone] documented as of this encounter Procedures Procedure Name Priority Date/Time Associated Diagnosis Comments MRI BRAIN WWO STEREOTACTIC PLANNING Routine 05/11/2023 10:58 AM EST Secondary malignant neoplasm of brain documented in this encounter Results * MRI Brain wwo [...] who have questions please contact the health acute care occupational therapist that requested your imaging first. ? Electronically signed by: JASON Jacinto [facility] ([phone]), at 05/11/2023 3:09 PM Narrative 05/11/2023 3:09 PM EST EXAMINATION: MRI [...] patients who have questions please contactthe health acute care occupational therapist that requested your imaging first. Electronically signed by: JASON Jacinto [facility]([phone]), at 05/11/2023 3:09 [address] [facility] MRI ORDERABLES documented in this encounter Visit [...] MAR Action Action Date Dose Rate Site gadoterate meglumine (Dotarem) (0.5 mMol/mL) injection solution 0-100 mL 0-100 mL, Intravenous, ONCE PRN, 1 dose, Starting on Tue05/11/23 at 1038, Until Tue05/11/23 at 1035, Per Protocol, Radiology Contrast, Routine Given 05/11/2023 10:35 AM EST 24 mLs documented in this encounter Care Teams Limousine Driver Relationship Specialty Start Date End Date Nick Martinez MD [address] [place] [address] PCP - General Internal Medicine 07/01/18 documented as of this encounter
--- OUTSIDE RECORDS SUMMARY | 2023-10-17 03:59 | XMS_ITS | Encounter Summary ---
Author Organization [facility] [place] [address] Care Team Providers Care Treasury Associate Name Role Phone Nick Martinez MD Primary Care Provider [phone] Encounter Details Date Type Department Care Team (Latest Contact Info) Description 07/16/2022 Travel Social History Tobacco Use Types Packs/Day [...] AM EDT Office Visit Hematology/Oncology at [address] [phone] Boy Tovar MD [facility] DR HEMATOLOGY [place] [address] 10/17/2023 9:00 AM EDT Infusion Hematology Oncology at [address] [phone] documented as of this encounter Visit Diagnoses Not on filedocumented in this encounter Care Teams Treasury Associate Relationship Specialty Start Date End Date Nick Martinez MD [address] [place] [address] PCP - General Internal Medicine 07/01/18 documented as of this encounter
--- OUTSIDE RECORDS SUMMARY | 2023-10-17 03:59 | XMS_ITS | Encounter Summary ---
[place] [address] Care Team Providers Care Linux Kernel Developer Name Role Phone Nick Martinez MD Primary Care Provider [phone] Encounter Details Date Type Department Care Team (Late st Contact Info) Description 04/28/2023 Telephone Hematology [place] [phone] Isabelle Andrews, RN Social History Tobacco Use Types Packs/Day Years Used Date Smoking Tobacco: Former Smokeless Tobacco: Current Chew Comments:1 can per day. Plan s to quit today 02/04/21 Alcohol Use Standard Drinks/Week Comments Yes 0 (1 standard drink = 0.6 oz pur e alcohol) on occassion only [facility] Utilities Answer Date Recorded In the past 12 months has [employer], gas, oil, or water [employer] threatened to shut off services in your [...] encounter Miscellaneous Notes * Telephone Encounter - Isabelle Andrews RN - 04/28/2023 9:44 AM ESTSummary: Symptom Call 04/28 0944: Incoming call from pts sister ([place]) Pt sister states that Tuesday night pt was seen at [facility] ED. Brought there for right foot dragging with tremors... pt was found to have a tumor while in ED as per sister. Sister states that since ED visit, pt has had significant decrease in right hand/arm usage in the last 3-4 days. Right arm is almost completely limp at this point as per sister. She also states multiple falls at home. is homefrom work and is capable of transporting pt if need be to ED. This RN instructed that we would call Mich back after talking over the plan with the team. 04/28 1000: Call back to Mich (sister) Talked through the plan with Mich to get pt to be seen here in [facility] (advised from Brandie MYERS).She was on board with plan. She was going to call who is able, capable and willing to drive ptto our ED. This RN clearly stated with verbal acknowledgement from mich that if at any point the does not feel safe to drive pt, or during the drive she feels unsafe, to green chain puller and call 911. Mich will call us back to confirm that pt is on board with plan and that they are going to come down to see us. Waiting on a call back from valerie. Brandie MYERS will call [facility] ED to give report, as well as neurosurgery. 1139 04/28: [employer] Team Member able to confirm from pt call in that they will be on their way to [facility] ED. Team is aware through secure chat. documented in this encounter Plan of Treatment Upcoming Encounters Date Type Department Care Team (Late st Contact Info) Description 10/17/2023 8:30 AM EDT Office Visit Hematology/Oncology at [address] [phone] Boy Tovar MD [facility] [place] [address] 10/17/2023 9:00 AM EDT Infusion Hematology Oncology at [address] [phone] documented as of this encounter Visit Diagnoses Not on filedocumented in this encounter Care Teams Linux Kernel Developer Relationship Specialty Start Date End Date Nick Martinez MD [address] [place] [address] PCP - General Internal Medicine 07/01/18 documented as of this encounter
--- OUTSIDE RECORDS SUMMARY | 2023-10-17 03:59 | XMS_ITS | Encounter Summary ---
Author Organization [facility] [place] [address] Care Team Providers Care Band Ripsaw Operator Name Role Phone Nick Martinez MD Primary Care Provider [phone] Encounter Details Date Type Department Care Team (Late st Contact Info) Description 02/08/2023 Orders Only Hematology [place] [address] Ella Diego APRN [facility] HEMATOLOGY [place] [address] Nicotine dependence with other nicotine-induced disorder, unspecified nicotine product type Social History Tobacco Use Types Packs/Day Years [...] slept in a prison (including now)? No 02/04/2021 Sex and Gender Information Value Date Recorded Sex Assigned at Not on file Gender Identity Not on file Sexual Orientation Not on file documented as of this encounter Plan of Treatment Upcoming Encounters Date Type Department Care Team (Late st Contact Info) Description 10/17/2023 8:30 AM EDT Office Visit Hematology/Oncology at [address] [phone] Boy Tovar MD [facility] DR HEMATOLOGY [place] [address] 10/17/2023 9:00 AM EDT Infusion Hematology Oncology at [address] [phone] documented as of this encounter Visit Diagnoses Diagnosis Nicotine dependence with other nicotine-induced disorder, unspecified nicotine product type Primary malignant 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 Malignant neoplasm of upper lobe, bronchus or lung Brain metastasis 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
--- OUTSIDE RECORDS SUMMARY | 2023-10-17 03:59 | XMS_ITS | Encounter Summary ---
Author Organization [facility] [place] [address] Care Team Providers Care Ortho Assistant Name Role Phone Nick Martinez MD Primary Care Provider Reason for Referral * Diagnostic Test (Routine) - Closed Specialty Diagnoses / Procedures Referred By Contmilagro t Referred To Contact Radiology Diagnoses Primary malignant 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 Procedures CT Chest w Contrast Ella Diego APRN [facility] [address] [place] [address] [facility] [place] [address] Referral ID Status Reason Start Date Expiration Date V isits Requested Visits Authorized [id number] Closed Specialty Service Requested 10/12/2022 12/10/2022 1 1 Reason for Visit * Diagnostic Test (Routine) - Closed Specialty Diagnoses / Procedures Referred By Contmilagro t Referred To Contact Radiology Diagnoses Primary malignant 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 Procedures CT Chest w Contrast Ella Diego APRN [facility] [place] [address] [facility] [place] [address] Referral ID Status Reason Start Date Expiration Date V isits Requested Visits Authorized [id number] Closed Specialty Service Requested 10/12/2022 12/10/2022 1 1 Encounter Details Date Type Department Care Team (Late st Contact Info) Description 11/04/2022 8:11 AM EDT - 11/04/2022 11:59 PM EDT Hospital [place] [phone] Ella Diego APRN [facility] DR [place] [address] Primary malignant neoplasm of right upper lobe [...] AM EDT Office Visit Hematology/Oncology at [address] [phone] Boy Tovar MD [facility] DR [place] [address] 10/17/2023 9:00 AM EDT Infusion Hematology Oncology at [address] [phone] documented as of this encounter Procedures Procedure Name Priority Date/Time Associated Diagnosis Comments CT CHEST W CONTRAST Routine 11/04/2022 8 :55 AM EDT Primary malignant 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 documented in this encounter Results * CT Chest w Contrast (11/04/2022 8:55 AM EDT) Anatomical Region Laterality Modality Chest Computed Tomogra phy Impressions 11/04/2022 11:08 AM EDT 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 No new lung nodule or thoracic lymphadenopathy. Increased thickening of the right adrenal gland is nonspecific, reassessment on follow-up imaging is recommended. Thank you for letting us participate in the care of this patient. ??If you are a health care provider and have any questions regarding this report, please contact the number below. ??For patients who have questions please contact the health manager intensive care that requested your imaging first. ? Electronically signed by: Jose Roberto [place] MD, [facility] ??([phone]), at 11/04/2022 11:08 AM Narrative 11/04/2022 11:08 AM EDT EXAMINATION: CT CHEST W CONTRAST CLINICAL HISTORY: Non-small cell lung cancer, non-metastatic, assess treatment response TECHNIQUE: Helical CT of the chest after the intravenous administration of contrast, 60 mL Omnipaque 350. Thin-section reconstructions as well as coronal and sagittal reformatted images were generated. COMPARISON: 07/16/2012 FINDINGS: Lungs/airways/pleura: Stable paramediastinal postradiation fibrosis in the right lung. Stable clustered small airways impaction in the right upper lobe. Stable 4 mm left upper lobe nodule on image 14 series 303 since 11/2020. No new lung nodule. There are layering secretions in the trachea. No pleural effusion. Mediastinum/lymph nodes: No thoracic lymphadenopathy. Cardiovascular: The heart is normal in size. There is no pericardial effusion. Mid ascending aorta measures 3.8 cm, unchanged. Upper abdomen: There is hepatic steatosis. There is increased thickening of the right adrenal gland compared to prior study. Bones and soft tissues: The bones are unremarkable. The soft tissues are unremarkable. Procedure Note Jose Roberto [place] MD - 11/04/2022 EXAMINATION: CT CHEST W CONTRAST CLINICAL HISTORY: Non-small cell lung cancer, non-metastatic, assesstreatment response TECHNIQUE: Helical CT of the chest after the intravenous administrationof contrast, 60 mL Omnipaque 350. Thin-section reconstructions as well ascoronal and sagittal reformatted images were generated. COMPARISON: 07/16/2012 FINDINGS: Lungs/airways/pleura: Stable paramediastinal postradiation fibrosis in theright lung. Stable clustered small airways impaction in the right upper lobe.Stable 4 mm left upper lobe nodule on image 14 series 303 since 11/2020. No newlung nodule. There are layering secretions in the trachea. No pleural effusion. Mediastinum/lymph nodes: No thoracic lymphadenopathy. Cardiovascular: The heart is normal in size. There is no pericardialeffusion. Mid ascending aorta measures 3.8 cm, unchanged. Upper abdomen: There is hepatic steatosis. There is increased thickeningof the right adrenal gland compared to prior study. Bones and soft tissues: The bones are unremarkable. The soft tissues are unremarkable. 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 No new lung nodule orthoracic lymphadenopathy. Increased thickening of the right adrenal gland isnonspecific, reassessment on follow-up imaging is recommended. Thank you for letting us participate in the care of this patient. If youare a health care provider and have any questions regarding this report,please contact the number below. For patients who have questions please contactthe health manager intensive care that requested your imaging first. Electronically signed by: Jose Roberto [place] MD, [facility]([phone]), at 11/04/2022 11:08 AM Ella Diego APRN [facility] CT ORDERABLES documented in this encounter [...] Intravenous, ONCE PRN, 1 dose, Starting on Digna 11/04/22 at 0856, Until Digna 11/04/22 at 0856, Per Protocol, Warning Vesicant/Irritant Medication , Radiology Contrast, Routine Given 11/04/2022 8:56 AM EDT 60 mLs documented in this encounter Care Teams Ortho Assistant Relationship Specialty Start Date End Date Nick Martinez MD [address] [place] [address] PCP - General Internal Medicine 07/01/18 documented as of this encounter
--- OUTSIDE RECORDS SUMMARY | 2023-10-17 03:59 | XMS_ITS | Encounter Summary ---
Author Organization [facility] [place] [address] Care Team Providers Care Graphic Designer Name Role Phone Nick Martinez MD Primary Care Provider [phone] Encounter Details Date Type Department Care Team (Late st Contact Info) Description 04/26/2023 3:55 PM EST Ancillary Procedure [place] [address] Ella Diego APRN [facility] DR HEMATOLOGY [place] [address] Social History Tobacco Use Types Packs/Day Years [...] AM EDT Office Visit Hematology/Oncology at [address] [phone] Boy Tovar MD [facility] DR HEMATOLOGY [place] [address] 10/17/2023 9:00 AM EDT Infusion Hematology Oncology at [address] [phone] documented as of this encounter Procedures Procedure Name Priority Date/Time Associated Diagnosis Comments FILM LIBRARY STORAGE ONLY MR HEAD Routine 04/26/2023 3:52 PM EST documented in this encounter Results * Film Library- Storage Only MR Head (04/26/2023 3:52 PM EST) Narrative [facility] - 04/26/2023 3:52 PM EST This exam is auto-finalizing. It's purpose is for storage only. Ella Diego APRN IMG FILM LIBRARY O RDERABLES DH [place], [place] documented in this encounter Visit Diagnoses Not on filedocumented in this encounter Care Teams Graphic Designer Relationship Specialty Start Date End Date Nick Martinez MD [address] [place] [address] PCP - General Internal Medicine 07/01/18 documented as of this encounter
--- OUTSIDE RECORDS SUMMARY | 2023-10-17 03:59 | XMS_ITS | Encounter Summary ---
[place] [address] Care Team Providers Care Grinder And Honer Operator Automatic Name Role Phone Nick Martinez MD Primary Care Provider [phone] Encounter Details Date Type Department Care Team (Late st Contact Info) Description 05/05/2023 Telephone [place] [address] Anahi Cortez RN Social History [...] Recorded In the past 12 months has [employer], gas, oil, or water [employer] threatened to shut off services in your [...] Telephone Encounter - Anahi Cortez RN - 05/05/2023 5:15 PM EST TC to Raffy. He stated that he noticed this white patch in his mouth 2 days ago. It's aggravatingbut not too bad. Informed that per consult with Dr. Marie, a rx for nystatin will be sent to his pharmacy [facility] and to call the pharmacy if it's ready for picking table worker. Called his sister Emery to inform of same. ----- Message from Esther Gonzalez sent at 05/05/2023 3:49 PM EST ----- Regarding: Frank patient: Sister has question about med Caller/ Relationship to caller: SISTER EMERY Reason for call: ASKING IF MED CAUSES SYMPTOMS Signs and Symptoms: THRUSH IN MOUTH Onset of Symptoms: PATIENT NOTICED AND SENT PICTURES TO HER Meds to help with s/s: Call back number: [phone] documented in this encounter Plan of Treatment Upcoming Encounters Date Type Department Care Team (Late st Contact Info) Description 10/17/2023 8:30 AM EDT Office Visit Hematology/Oncology at [address] [phone] Boy Tovar MD [facility] DR HEMATOLOGY [place] [address] 10/17/2023 9:00 AM EDT Infusion Hematology Oncology at [address] [phone] documented as of this encounter Visit Diagnoses Not on filedocumented in this encounter Care Teams Grinder And Honer Operator Automatic Relationship Specialty Start Date End Date Nick Martinez MD [address] [place] [address] PCP - General Internal Medicine 07/01/18 documented as of this encounter
--- OUTSIDE RECORDS SUMMARY | 2023-10-17 04:00 | XMS_ITS | Encounter Summary ---
Author Organization [facility] [place] [address] Care Team Providers Care Ash Worker Name Role Phone Nick Martinez MD Primary Care Provider Reason for Visit * Reason Comments Chemotherapy Cycle 11, Day 1 - Du rvalumab * Treatment/Therapy Plan Authorization (Routine) - Closed Specialty Diagnoses / Procedures Referred By Contac t Referred To Contact Hematology and Oncology Diagnoses Primary malignant 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 Procedures [id number] Boy Jackson MD [facility] DR [place] [address] Boy Tovar MD [address] [place] [address] [place] [address] Referral ID Status Reason Start Date Expiration Date Visits Re quested Visits Authorized [id number] Closed 11/05/2021 11/05/2022 99 99 Encounter Details Date Type Department Care Team (Late st Contact Info) Description 01/11/2022 1:30 PM EST Infusion Hematology Oncology at [address] [phone] Primary malignant neoplasm of right upper lobe [...] slept in a detention (including now)? No 02/04/2021 Sex and Gender Information Value Date Recorded Sex Assigned at Not on file Gender Identity Not on file Sexual Orientation Not on file documented as of this encounter Progress Notes * Ginette Freeman RN - 01/11/2022 1:30 PM EST INFUSION THERAPY ADMINISTRATION NOTES DIAGNOSIS: NSCLC CYCLE #: Cycle 11, Day 1 - Durvalumab REASON FOR VISIT: To receive immunotherapy. SUBJECTIVE: Raffy offers no complaints. OBJECTIVE: Seen by provider. Ready to treat. LAB DATA: WBC - 6.97, H/H - 13.7/39.9, Plt Ct - 209, ANC - 5.45, Lytes wnl, BUN/CR - 24/1.2, MG++ -1.8 IV ACCESS: PIV Pre administration: Chemotherapy orders independently verified for drug name, route, and dosage per patient's height, weight and BSA by Ginette Freeman, CHERYL and Staff Pharmacist(s). REACTIONS (DESCRIPTION, TIME, INTERVENTION AND EFFECTIVENESS) none ASSESSMENT: Raffy was awake, alert and tolerated treatment well. PIV discontinued prior to dismissal. PLAN: Return to clinic in 4 weeks. documented in this encounter Plan of Treatment Upcoming Encounters Date Type Department Care Team (Late st Contact Info) Description 10/17/2023 8:30 AM EDT Office Visit Hematology/Oncology at [address] [phone] Boy Tovar MD [facility] DR [place] [address] 10/17/2023 9:00 AM EDT Infusion Hematology Oncology at [address] [phone] documented as of this encounter Visit Diagnoses [...] MAR Action Action Date Dose Rate Site durvalumab (Imfinzi) 1,500 mg in sodium chloride 0.9% 280 mL infusion 1,500 mg, Intravenous, ONCE, 1 dose, On 01/11/22 at 1445, Administer over 60 Minutes, This agent is restricted to outpatient use. Is this drug being given as an outpatient? Yes New Bag 01/11/2022 2:07 PM EST 1,500 mg 280 mL/hr documented in this encounter Care Teams Ash Worker Relationship Specialty Start Date End Date Nick Martinez MD [address] [place] [address] PCP - General Internal Medicine 07/01/18 documented as of this encounter
--- OUTSIDE RECORDS SUMMARY | 2023-10-17 04:00 | XMS_ITS | Encounter Summary ---
[place] [address] Care Team Providers Care Rubber Moulding Machine Operator Name Role Phone Nick Martinez MD Primary Care Provider Encounter Details Date Type Department Care Team (Late st Contact Info) Description 09/02/2021 12:05 PM EDT Ancillary Procedure [place] [phone] Nick Martinez MD [address] [place] [address] Social History Tobacco Use Types [...] AM EDT Office Visit Hematology/Oncology at [address] [phone] Boy Tovar MD [facility] DR HEMATOLOGY [place] [address] 10/17/2023 9:00 AM EDT Infusion Hematology Oncology at [address] [phone] documented as of this encounter Procedures Procedure Name Priority Date/Time Associated Diagnosis Comments FILM LIBRARY STORAGE ONLY CT CHEST Routine 09/02/2021 12:04 PM EDT documented in this encounter Results * Film Library- Storage Only CT Chest (09/02/2021 12:04 PM EDT) Narrative [facility] - 09/02/2021 12:04 PM EDT This exam is auto-finalizing. It's purpose is for storage only. Nick Martinez MD IMG FILM LIBRARY ORD ERABLES [facility] [place], [place] documented in this encounter Visit Diagnoses Not on filedocumented in this encounter Care Teams Rubber Moulding Machine Operator Relationship Specialty Start Date End Date Nick Martinez MD [address] [place] [address] PCP - General Internal Medicine 07/01/18 documented as of this encounter
--- OUTSIDE RECORDS SUMMARY | 2023-10-17 04:00 | XMS_ITS | Encounter Summary ---
Author Organization [facility] [place] [address] Care Team Providers Care Sorter Laundry Articles Name Role Phone Nick Martinez MD Primary Care Provider Reason for Visit * Reason Comments Chemotherapy Cycle 12, Day 1 - Du rvalumab * Treatment/Therapy Plan Authorization (Routine) - Closed Specialty Diagnoses / Procedures Referred By Contac t Referred To Contact Hematology and Oncology Diagnoses Primary malignant 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 Procedures [id number] Boy Jackson MD [facility] DR HEMATOLOGY [place] [address] Boy Tovar MD [address] [place] [address] DR HEMATOLOGY [place] [address] Referral ID Status Reason Start Date Expiration Date Visits Re quested Visits Authorized [id number] Closed 11/05/2021 11/05/2022 99 99 Encounter Details Date Type Department Care Team (Late st Contact Info) Description 02/08/2022 1:30 PM EST Infusion Hematology Oncology at [address] [phone] Primary malignant neoplasm of right upper lobe [...] place to sleep or slept in a nursing home (including now)? No 02/04/2021 Sex and Gender Information Value Date Recorded Sex Assigned at Not on file Gender Identity Not on file Sexual Orientation Not on file documented as of this encounter Progress Notes * Ginette Freeman RN - 02/08/2022 1:30 PM EST INFUSION THERAPY ADMINISTRATION NOTES DIAGNOSIS: NSCLC CYCLE #: Cycle 12, Day 1 - Durvalumab REASON FOR VISIT: To receive immunotherapy. SUBJECTIVE: Raffy offers no complaints. OBJECTIVE: Seen by provider. Ready to treat. LAB DATA: WBC - 6.49, H/H - 14.0/39.4, Plt Ct - 200, ANC - 4.96, Lytes wnl, BUN/CR - 20/1.5, MG++ -1.9 IV ACCESS: PIV Pre administration: Chemotherapy orders independently verified for drug name, route, and dosage per patient's height, weight and BSA by Ginette Freeman RN and Staff Pharmacist(s). REACTIONS (DESCRIPTION, TIME, INTERVENTION AND EFFECTIVENESS) none ASSESSMENT: Raffy was awake, alert and tolerated treatment well. PIV discontinued prior to dismissal. PLAN: Return to clinic approx. Apr after scans. documented in this encounter Plan of Treatment Upcoming Encounters Date Type Department Care Team (Late st Contact Info) Description 10/17/2023 8:30 AM EDT Office Visit Hematology/Oncology at [address] [phone] Boy Tovar MD [facility] DR HEMATOLOGY [place] [address] 10/17/2023 9:00 AM EDT Infusion Hematology Oncology at [address] [phone] documented as of this encounter Visit Diagnoses [...] 1,500 mg, Intravenous, ONCE, 1 dose, On 02/08/22 at 1430, Administer over 60 Minutes, This agent is restricted to outpatient use. Is this drug being given as an outpatient? Yes New Bag 02/08/2022 1:49 PM EST 1,500 mg 280 mL/hr documented in this encounter Care Teams Sorter Laundry Articles Relationship Specialty Start Date End Date Nick Martinez MD [address] [place] [address] PCP - General Internal Medicine 07/01/18 documented as of this encounter
--- OUTSIDE RECORDS SUMMARY | 2023-10-17 04:00 | XMS_ITS | Encounter Summary ---
[place] [address] Care Team Providers Care E Tailer Name Role Phone Nick Martinez MD Primary Care Provider Reason for Referral * Diagnostic Test (Routine) - Closed Specialty Diagnoses / Procedures Referred By Mariana workman Referred To Contact Radiology Diagnoses Primary malignant 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 Procedures CT Chest w Contrast Bisi Hollis APRN [address] [place] [address] DR HEMATOLOGY [place] [address] [facility] [place] [address] Referral ID Status Reason Start Date Expiration Date V isits Requested Visits Authorized [id number] Closed Specialty Service Requested 03/18/2022 09/16/2023 1 1 Reason for Visit * Diagnostic Test (Routine) - Closed Specialty Diagnoses / Procedures Referred By Mariana workman Referred To Contact Radiology Diagnoses Primary malignant 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 Procedures CT Chest w Contrast Bisi Hollis APRN [address] [place] [address] DR HEMATOLOGY [place] [address] [facility] [place] [address] Referral ID Status Reason Start Date Expiration Date V isits Requested Visits Authorized [id number] Closed Specialty Service Requested 03/18/2022 09/16/2023 1 1 Encounter Details Date Type Department Care Team (Late st Contact Info) Description 04/15/2022 9:23 AM EST - 04/15/2022 11:59 PM EST Hospital [place] [address] Bisi Hollis APRN [address] [place] [address] DR HEMATOLOGY [place] [address] Primary malignant neoplasm of right upper lobe [...] slept in a usp (including now)? No 02/04/2021 Sex and Gender [...] AM EDT Office Visit Hematology/Oncology at [address] [phone] Boy Tovar MD [facility] DR HEMATOLOGY AND ONCOLOGY [place] [id number] 10/17/2023 9:00 AM EDT Infusion Hematology Oncology at [address] [phone] documented as of this encounter Procedures Procedure Name Priority Date/Time Associated Diagnosis Comments CT CHEST W CONTRAST Routine 04/15/2022 1 0:26 AM EST Primary malignant 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 documented in this encounter Results * CT Chest w Contrast (04/15/2022 10:26 AM EST) Anatomical Region Laterality Modality Chest Computed Tomogra phy Impressions 04/15/2022 1:36 PM EST 1. ??Unchanged right perihilar opacity consistent with prior radiation therapy. 2. ??No new pulmonary lesions. 3. ??No lymphadenopathy. 4. ??Slowly enlarging cystic lesion in the tail of the pancreas may represent a sidebranch IPMN. Please consider follow-up CT in six months for continued assessment of growth pattern (ACR White Paper 2017). Thank you for letting us participate in the care of this patient. ??If you are a health care provider and have any questions regarding this report, please contact the number below. ??For patients who have questions please contact the health nonfarm animal caretaker that requested your imaging first. ? Narrative 04/15/2022 1:36 PM EST EXAMINATION: CT CHEST W CONTRAST CLINICAL HISTORY: Non-small cell lung cancer, non-metastatic, assess treatment response TECHNIQUE: Helical CT of the chest after the intravenous administration of contrast, Administered 60.0 ml of OMNIPAQUE 350.00 mg/ml. Thin-section reconstructions as well as coronal and sagittal reformatted images were generated. COMPARISON: December 28, 2021, November 06, 2020, May 30, 2018 FINDINGS: Pulmonary parenchyma: Consolidative opacity is present in the right perihilar region and is unchanged in appearance since the prior examination. There is a 6 mm nodule in the apex of the left upper lobe (series 302, image 61) which is unchanged in studies dating back to 2020. No new pulmonary nodules are present. Airways: Layering debris can be seen in the left mainstem bronchus. Pleura: There is no pleural effusion, pleural thickening or pneumothorax. Mediastinum and lymph nodes: No lymphadenopathy. Heart and vasculature: The heart size is normal. No pericardial effusion is seen. The thoracic aorta has a normal caliber and a three vessel arch branching pattern. Chest wall: Bilateral gynecomastia. Upper abdomen: There is a 15 mm fluid density nodule in the tail of the pancreas (series 301, image 128). This nodule is not significantly changed in size since the most recent CT but has enlarged in over time, measuring 11 mm in the study of 2019. Skeletal structures: No acute osseous pathology. Procedure Note Rashaun Lewis MD - 04/15/2022 EXAMINATION: CT CHEST W CONTRAST CLINICAL HISTORY: Non-small cell lung cancer, non-metastatic, assesstreatment response TECHNIQUE: Helical CT of the chest after the intravenous administrationof contrast, Administered 60.0 ml of OMNIPAQUE 350.00 mg/ml. Thin-section reconstructions as well as coronal and sagittal reformatted images were generated. COMPARISON: December 28, 2021, November 06, 2020, May 30, 2018 FINDINGS: Pulmonary parenchyma: Consolidative opacity is present in the rightperihilar region and is unchanged in appearance since the prior examination. Thereis a 6 mm nodule in the apex of the left upper lobe (series 302, image 61) whichis unchanged in studies dating back to 2020. No new pulmonary nodules arepresent. Airways: Layering debris can be seen in the left mainstem bronchus. Pleura: There is no pleural effusion, pleural thickening orpneumothorax. Mediastinum and lymph nodes: No lymphadenopathy. Heart and vasculature: The heart size is normal. No pericardial effusionis seen. The thoracic aorta has a normal caliber and a three vessel archbranching pattern. Chest wall: Bilateral gynecomastia. Upper abdomen: There is a 15 mm fluid density nodule in the tail of thepancreas (series 301, image 128). This nodule is not significantly changed in sizesince the most recent CT but has enlarged in over time, measuring 11 mm in thestudy of 2019. Skeletal structures: No acute osseous pathology. IMPRESSION 1. Unchanged right perihilar opacity consistent with prior radiationtherapy. 2. No new pulmonary lesions. 3. No lymphadenopathy. 4. Slowly enlarging cystic lesion in the tail of the pancreas mayrepresent a sidebranch IPMN. Please consider follow-up CT in six months forcontinued assessment of growth pattern (ACR White Paper 2017). Thank you for letting us participate in the care of this patient. If youare a health care provider and have any questions regarding this report,please contact the number below. For patients who have questions please contactthe health nonfarm animal caretaker that requested your imaging first. Bisi Hollis FURNACE CHARGING MACHINE OPERATOR IMG CT ORDERABLE S documented in this encounter Visit Diagnoses Diagnosis [...] ONCE PRN, 1 dose, Starting on Digna 04/15/22 at 1021, Until Digna 04/15/22 at 1021, Per Protocol, Warning Vesicant/Irritant Medication , Radiology Contrast, Routine Given 04/15/2022 10:21 AM EST 60 mLs documented in this encounter Care Teams E Tailer Relationship Specialty Start Date End Date Nick Martinez MD [address] [place] [address] PCP - General Internal Medicine 07/01/18 documented as of this encounter
--- OUTSIDE RECORDS SUMMARY | 2023-10-17 04:00 | XMS_ITS | Encounter Summary ---
Author Organization [facility] Address [facility] [place] [address] Care Team Providers Care Plate Shop Helper Name Role Phone Nick Martinez MD Primary Care Provider [phone] Reason for Visit * Reason Comments Chemotherapy Cycle 8 Day 1 * Treatment/Therapy Plan Authorization (Routine) - Closed Specialty Diagnoses / Procedures Referred By Contac t Referred To Contact Hematology and Oncology Diagnoses Primary malignant 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 Procedures [id number] Boy Jackson MD [facility] [place] [address] Boy Tovar MD [address] [place] [address] DR [place] [address] Referral ID Status Reason Start Date Expiration Date Visits Re quested Visits Authorized [id number] Closed 11/05/2021 11/05/2022 99 99 Encounter Details Date Type Department Care Team (Late st Contact Info) Description 10/12/2021 2:30 PM EDT Infusion Hematology Oncology at [address] [phone] Primary malignant neoplasm of right upper lobe [...] as of this encounter Progress Notes * Mannie Taylor RN - 10/12/2021 2:30 PM EDT INFUSION THERAPY ADMINISTRATION NOTES DIAGNOSIS: NSCLC CYCLE #8: Day 1 - Durvalumab REASON FOR VISIT: To receive immunotherapy. SUBJECTIVE: Raffy offers no complaints. OBJECTIVE: Seen by provider. Ready to treat. LAB DATA: Done today at [facility] and no holds per [place] orders. IV ACCESS: PIV right hand Pre administration: Chemotherapy orders independently verified for drug name, route, and dosage per patient's height, weight and BSA by Mannie Taylor RN and Staff Pharmacist(s). REACTIONS (DESCRIPTION, TIME, INTERVENTION AND EFFECTIVENESS) none ASSESSMENT: Raffy was awake, alert and tolerated treatment well. PIV discontinued prior to dismissal. PLAN: Return to clinic as planned. documented in this encounter Plan of Treatment Upcoming Encounters Date Type Department Care Team (Late st Contact Info) Description 10/17/2023 8:30 AM EDT Office Visit Hematology/Oncology at [address] [phone] Boy Tovar MD [facility] DR [place] [address] 10/17/2023 9:00 AM EDT Infusion Hematology Oncology at [address] [phone] documented as of this encounter Visit Diagnoses [...] 1,500 mg, Intravenous, ONCE, 1 dose, On Tue10/12/21 at 1600, Administer over 60 Minutes, This agent is restricted to outpatient use. Is this drug being given as an outpatient? Yes New Bag 10/12/2021 3:12 PM EDT 1,500 mg 280 mL/hr documented in this encounter Care Teams Plate Shop Helper Relationship Specialty Start Date End Date Nick Martinez MD [address] [place] [address] PCP - General Internal Medicine 07/01/18 documented as of this encounter
--- OUTSIDE RECORDS SUMMARY | 2023-10-17 04:00 | XMS_ITS | Encounter Summary ---
Author Organization [facility] [place] [address] Care Team Providers Care Civil Drafting Technician Name Role Phone Nick Martinez MD Primary Care Provider Reason for Visit * Reason Comments Chemotherapy Cycle 7, Day 1 - Dur valumab * Treatment/Therapy Plan Authorization (Routine) - Closed Specialty Diagnoses / Procedures Referred By Contac t Referred To Contact Hematology and Oncology Diagnoses Primary malignant 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 Procedures [id number] Boy Jackson MD [facility] DR [place] [address] Boy Tovar MD [address] [place] [address] DR HEMATOLOGY [place] [address] Referral ID Status Reason Start Date Expiration Date Visits Re quested Visits Authorized [id number] Closed 11/05/2021 11/05/2022 99 99 Encounter Details Date Type Department Care Team (Late st Contact Info) Description 09/14/2021 2:30 PM EDT Infusion Hematology Oncology at [address] [phone] Primary malignant neoplasm of right upper lobe [...] Progress Notes * Ginette Freeman RN - 09/14/2021 2:30 PM EDT INFUSION THERAPY ADMINISTRATION NOTES DIAGNOSIS: NSCLC CYCLE #: Cycle 7, Day 1 - Durvalumab REASON FOR VISIT: To receive immunotherapy. SUBJECTIVE: Raffy offers no complaints. OBJECTIVE: Seen by provider. Ready to treat. LAB DATA: WBC - 6.28, H/H - 13.6/39.7, Plt Ct - 191, ANC - 4.76, Lytes wnl, BUN/CR - 18/1.0, MG++ -1.9 IV ACCESS: PIV Pre administration: [...] AM EDT Office Visit Hematology/Oncology at [address] [phone] Boy Tovar MD [facility] DR [place] [address] 10/17/2023 9:00 AM EDT Infusion Hematology Oncology at [address] [phone] documented as of this encounter Visit Diagnoses [...] 1,500 mg, Intravenous, ONCE, 1 dose, On Tue09/14/21 at 1545, Administer over 60 Minutes, This agent is restricted to outpatient use. Is this drug being given as an outpatient? Yes New Bag 09/14/2021 3:06 PM EDT 1,500 mg 280 mL/hr documented in this encounter Care Teams Civil Drafting Technician Relationship Specialty Start Date End Date Nick Martinez MD [address] [place] [address] PCP - General Internal Medicine 07/01/18 documented as of this encounter
--- OUTSIDE RECORDS SUMMARY | 2023-10-17 04:00 | XMS_ITS | Encounter Summary ---
Author Organization [facility] [place] [address] Care Team Providers Care Retort Furnace Operator Name Role Phone Nick Martinez MD Primary Care Provider [phone] Encounter Details Date Type Department Care Team (Late st Contact Info) Description 10/12/2021 2:00 PM EDT Office Visit Hematology/Oncology at [address] [phone] Aliyah Thakur APRN [facility] DR [place] [address] Primary malignant 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; Nicotine dependence with other nicotine-induced disorder, unspecified [...] Sign Reading Time Taken Comments Blood Pressure 128/76 10/12/2021 2:06 PM EDT Pulse 86 10/12/2021 2:06 PM EDT Temperature 36.2 ??C (97.1 ??F) 10/12/2021 2:06 PM ED T Respiratory Rate 18 10/12/2021 2:06 PM EDT Oxygen Saturation 98% 10/12/2021 2:06 PM EDT Inhaled Oxygen Concentration - - Weight 107.4 kg (236 lb 12.8 oz) 10/12/2021 2:06 PM EDT Height 177.8 cm (5' 10) 10/12/2021 2:06 PM EDT Body Mass Index 33.98 10/12/2021 2:06 PM EDT documented in this encounter Progress Notes * Aliyah Thakur APRN - 10/12/2021 2:00 PM EDT Images from the original note were not included. Hematology & Medical Oncology [address] [phone] Raffy Edgar is being seen for cT1cN3 Stage III-C non small cell lung cancer (adenocarcinoma) Assessment & Plan: Raffy Latif is a 61 y.o. . male patient with a past [...] Started consolidative immunotherapy with durvalumab on 04.20.21. Plan -Labs and toxicities assessed and acceptable for ongoing treatment. - CT scan from 09/09/21 - no indication of disease progression - Cough has improved - refilled Albuterol inhaler - RTC in 4 weeks - continue consolidative immunotherapy with durvalumab - Restage in December Aliyah Thakur CODE CLERK 10/12/2021 Medical Oncology & Hematology [facility] HPI/Interval History/Subjective: Last seen 09/14/21 Still has cough however much improved - No fevers, chills, recent infections. Uses albuterol inhaler occasionally - more with recent heat. Otherwise breathing pretty good. 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 Busy lifestyle with kids at home. No new rashes or diarrhea. Appetite good - always hungry. Would like to take off some weight. Talked about weight gain - asking for dietary suggestions. Social History/Support Network: Home situation: Lives with in [facility] with Velvet. 35 years. 3 children and plan to adopt another one through foster care. 1 grandchild Employment: [employer] Tobacco use: Quit in 1999. 40 Pk year hx (1-2 ppd x 25 years) Now chews toabcco. Alcohol use: Used to drink more heavily but now a monthly mixed drink Drug use: None reported Answers for HPI/ROS submitted by the patient on 12/22/2020 Distress: 2 Likes the outdoors. service: No [...] carbo/paclitaxel and XRT 04.20.21 Started consolidative durvalumab ONCBCN ONCOLOGY (AMB) 04/06/2021 04/20/2021 05/18/2021 06/15/2021 07/13/2021 08/10/2021 09/14/2021 Day, Cycle Day 29, Cycle 1 Day 1, Cycle 1 Day 1, Cycle 2 Day 1, Cycle 3 Day 1, Cycle 5 Day 1, Cycle6 Day 1, Cycle 7 CARBOplatin (Paraplatin) IV 252 mg - - - - - - durvalumab 50 mg/mL (Imfinzi) IV - 1,500 mg 1,500 mg 1,500 mg 1,500 mg 1,500 mg 1,500 mg PACLitaxeL (Taxol) IV 50 mg/m2/dose = 118 mg - - - - - - Patient Active Problem List Diagnosis Date Noted ??? Primary malignant 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 01/08/2021 Allergies Allergen Reactions ??? Penicillins Nausea Only I reviewed the problem list, allergies, medications, past medical history, social history and family history within the EPIC encounter. Pertinent details are noted above. Pertinent positives and negative from the Review of Systems are as summarized above in the HPI. Physical Exam: Wt Readings from Last 3 Encounters: 10/12/21 107.4 kg (236 lb 12.8 oz) 09/14/21 104.7 kg (230 lb 12.8 oz) 08/10/21 102.1 kg (225 lb) Temp Readings from Last 3 Encounters: 10/12/21 36.2 ??C (97.1 ??F) (Temporal) 09/14/21 36.7 ??C (98.1 ??F) (Temporal) 08/10/21 36.3 ??C (97.3 ??F) (Temporal) BP Readings from Last 3 Encounters: 10/12/21 128/76 09/14/21 115/76 08/10/21 109/76 Pulse Readings from Last 3 Encounters: 10/12/21 86 09/14/21 87 08/10/21 99 There is no height or weight on file to calculate BSA. Wt Readings from Last 3 Encounters: 10/12/21 107.4 kg (236 lb 12.8 oz) 09/14/21 104.7 kg (230 lb 12.8 oz) 08/10/21 102.1 kg (225 lb) KPS Score ECOG Grade Definition 90-100 [...] totally confined to bed or chair BP 128/76 (Patient Position: Sitting) Pulse 86 Temp 36.2 ??C (97.1 ??F) (Temporal) Resp 18 Ht 177.8 cm (5' 10) Wt 107.4 kg (236 lb 12.8 oz) SpO2 98% BMI 33.98 kg/m?? Physical Exam GENERAL: Appears well in no acute distress - normal appearance, not ill- appearing, toxic-appearing or diaphoretic HEENT: Eyes: b/l ADRIANA, no conjunctival pallor , no scleral icterus; Sinuses: non-tender; Oropharynx : moist , clear, No lesions, NECK: supple without cervical adenopathy CARDIOVASCULAR: Heart with regular rate and rhythm without S3,S4 or murmurs. No cyanosis or peripheral edema. PULMONARY: Lungs are clear to auscultation without rales, rhonchi or wheezing ABDOMEN: Abdomen soft and non-tender. BS normoactive MUSCULOSKELETAL: Moves and ambulates independently. EXTREMITIES: No edema or calf tenderness SKIN: No rashes, bruises or petechiae. NEURO: Alert and oriented to person, place, time. Speech clear and conversation appropriate to situation. No focal deficits. PSYCH: Mood/affect and behavior normal Review of Laboratory Data: 10/12/21 WBC 6.15, Hgb 13, Plt Ct 190, ANC 4.62 Na 142, K+ 3.8, [...] albumin 3.8, TSH 2.87, Free T4 0.84 08.10. Sodium 140 potassium 4.4 chloride 105 BUN [...] ALT-12 Alk phos-74 Albumin-3.4 TSH-0.45 Free T4-1.01 3..22 Labs from the ED 05/18/21- WBC-5.42 Hgb/Hct-10.4/32.0 [...] platelet count 254,000 Review of Imaging Data: 05.28.21 CT 04/11/21- CT chest- ?? COMPARISON: 02/23/[address], as well as other prior studies. ?? FINDINGS: Pulmonary parenchyma: Image blurring from respiratory [...] gynecomastia unchanged. Skeletal structures: No new findings. ?? IMPRESSION 1. Decreased size of medial segment right middle lobe mass, now with areas of cavitation. 2. Minimal residual small nodular opacities in lateral segment of right middle lobe. 3. No new pulmonary findings. 4. Decreased right hilar lymph node enlargement. 5. Small pancreatic hypodensities, not appreciably changed going back to 2019, most compatible with side-branch IPMNs. 03.21.20 MRI [facility] ?? 01.19.21 PET scan IMPRESSION 1. ??Slight interval increase in size of the 2.4 cm FDG avid spiculated pulmonary nodule in the right middle lobe consistent with biopsy-proven invasive adenocarcinoma. 2. ??Lucila metastases in the left supraclavicular, right hilar, and bilateral mediastinal regions as detailed above. 3. ??No sites of metastatic disease in the abdomen, [...] 8:30 AM EDT Office Visit Hematology/Oncology at [address] [phone] Boy Tovar MD [facility] [place] [address] 10/17/2023 9:00 AM EDT Infusion Hematology Oncology at [address] [phone] documented as of this encounter Visit Diagnoses Diagnosis Primary malignant 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 Malignant neoplasm of upper lobe, bronchus or lung Nicotine dependence with other nicotine-induced disorder, unspecified nicotine product type Primary malignant 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 Malignant neoplasm of upper lobe, bronchus or lung Brain metastasis 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
--- OUTSIDE RECORDS SUMMARY | 2023-10-17 04:00 | XMS_ITS | Encounter Summary ---
Author Organization Formerly [facility] [place] [address] Care Team Providers Care Milling General Superintendent Name Role Phone Nick Martinez MD Primary Care Provider Encounter Details Date Type Department Care Team (Late st Contact Info) Description 09/14/2021 2:00 PM EDT Office Visit Hematology/Oncology at [address] [phone] Boy Tovar MD [facility] DR [place] [address] Aliyah Thakur APRN [facility] [address] [place] [address] Primary malignant neoplasm of right upper lobe [...] Sign Reading Time Taken Comments Blood Pressure 115/76 09/14/2021 1:39 PM EDT Pulse 87 09/14/2021 1:39 PM EDT Temperature 36.7 ??C (98.1 ??F) 09/14/2021 1:39 PM ED T Respiratory Rate 18 09/14/2021 1:39 PM EDT Oxygen Saturation 98% 09/14/2021 1:39 PM EDT Inhaled Oxygen Concentration - - Weight 104.7 kg (230 lb 12.8 oz) 09/14/2021 1:39 PM EDT Height 177.8 cm (5' 10) 09/14/2021 1:39 PM EDT Body Mass Index 33.12 09/14/2021 1:39 PM EDT documented in this encounter Progress Notes * Aliyah Thakur APRN - 09/14/2021 2:00 PM EDT Images from the original note were not included. Hematology & Medical Oncology [address] [address] Raffy Latif is being seen for cT1cN3 Stage III-C non small cell lung cancer (adenocarcinoma) Assessment & Plan: Raffy Latif is a 60 y.o. . male patient with a past [...] no indication of disease progression - Cough is unchanged - has not progressed - RTC in 4 weeks - continue consolidative immunotherapy with durvalumab - Restage in 3 months Aliyah Fordaniel RESEARCH DIRECTOR 09/14/2021 Medical Oncology & Hematology [facility] HPI/Interval History/Subjective: Last seen 08/10/[address] scan on 09/09/21 at [facility]. Still has cough however this has unchanged - he had COVID several months ago and has lingering cough since that time. Phlegm remains clear. Is able to sleep at night - cough does not wake him. No fevers, chills, recent infections. Chews tobacco daily (about one can) Breathing is pretty good - the heat does occasionally slow him down. Can go up flight of stairs. 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 No new rashes or diarrhea. Appetite good - always hungry. Would like to take off some weight. Social History/Support Network: Home situation: Lives with in [facility] with Velvet. 35 years. 3 children and plan to adopt another one through foster care. 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 40 Pk year hx (1-2 ppd x 25 years) Now chews to[employer]. Alcohol use: Used to drink more heavily [...] 04.20.21 Started consolidative durvalumab ONCBCN ONCOLOGY (AMB) 03/23/2021 04/06/2021 04/20/2021 05/18/2021 06/15/2021 07/13/2021 08/10/2021 Day, Cycle Day 22, Cycle 1 Day 29, Cycle 1 Day 1, Cycle 1 Day 1, Cycle 2 Day 1, Cycle 3 Day 1, Cycle 5 Day 1, Cycle 6 CARBOplatin (Paraplatin) IV 252 mg 252 mg - - - - - durvalumab 50 mg/mL (Imfinzi) IV - - 1,500 mg 1,500 mg 1,500 mg 1,500 mg 1,500 mg PACLitaxeL (Taxol) IV 50 mg/m2/dose = 118 mg 50 mg/m2/dose = 118 mg - - - - - Patient Active [...] Exam: Wt Readings from Last 3 Encounters: 09/14/21 104.7 kg (230 lb 12.8 oz) 08/10/21 102.1 kg (225 lb) 07/13/21 99.4 kg (219 lb 3.2 oz) Temp Readings from Last 3 Encounters: 09/14/21 36.7 ??C (98.1 ??F) (Temporal) 08/10/21 36.3 ??C (97.3 ??F) (Temporal) 07/13/21 36.7 ??C (98.1 ??F) (Temporal) BP Readings from Last 3 Encounters: 09/14/21 115/76 08/10/21 109/76 07/13/21 110/70 Pulse Readings from Last 3 Encounters: 09/14/21 87 08/10/21 99 07/13/21 89 There is no height or weight on file to calculate BSA. Wt Readings from Last 3 Encounters: 09/14/21 104.7 kg (230 lb 12.8 oz) 08/10/21 102.1 kg (225 lb) 07/13/21 99.4 kg (219 lb 3.2 oz) KPS Score ECOG Grade Definition 90-100 [...] totally confined to bed or chair BP 115/76 (Patient Position: Sitting) Pulse 87 Temp 36.7 ??C (98.1 ??F) (Temporal) Resp 18 Ht 177.8 cm (5' 10) Wt 104.7 kg (230 lb 12.8 oz) SpO2 98% BMI 33.12 kg/m?? Physical Exam Constitutional: General: Not in acute distress. Appearance: Normal appearance. Normal weight. Not ill-appearing, toxic-appearing or diaphoretic. HENT: Head: Atraumatic. Eyes: General: No scleral icterus. Right eye: No discharge. Left eye: No discharge. Conjunctiva/sclera: Conjunctivae normal. Pulmonary: Effort: Pulmonary effort is normal. Some wheezing heard right lung. Neurological: General: No focal deficit present. Mental Status: Alert and oriented to person, place, and time. Mental status is at baseline. Psychiatric: Mood and Affect: Mood normal. Behavior: Behavior normal. Thought Content: Thought content normal. Judgment: Judgment normal. Review of Laboratory Data: 09/14/21 WBC 6.28, Hgb 13.6, Plt Ct [...] AM EDT Office Visit Hematology/Oncology at [address] [phone] Boy Tovar MD [facility] DR [place] [address] 10/17/2023 9:00 AM EDT Infusion Hematology Oncology at [address] [phone] documented as of this encounter Visit Diagnoses [...] gland documented in this encounter Care Teams Milling General Superintendent Relationship Specialty Start Date End Date Nick Martinez MD [address] [place] [address] PCP - General Internal Medicine 07/01/18 documented as of this encounter
--- OUTSIDE RECORDS SUMMARY | 2023-10-17 04:00 | XMS_ITS | Encounter Summary ---
Author Organization [facility] [place] [address] Care Team Providers Care Unemployment Benefits Claims Taker Name Role Phone Nick Martinez MD Primary Care Provider [phone] Encounter Details Date Type Department Care Team (Late st Contact Info) Description 09/14/2021 Notes Only Hematology/Oncology at [address] [phone] Azalea Watkins, FINANCE TEACHER OFFICE OF CARE MANAGEMENT Social History Tobacco [...] in a senior living (including now)? No 02/04/2021 Sex and Gender Information Value Date Recorded Sex Assigned at Not on file Gender Identity Not on file Sexual Orientation Not on file documented as of this encounter Progress Notes * Azalea Watkins MSW - 09/14/2021 2:54 PM EDT Follow up with pt during his infusion visit today. Pt indicated he is doing fairly well overall. 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 He indicated his famiys well and all are busy. He did not identify any new needs at this time. Reminded pt of FINANCE TEACHER availability and contact information. Will continue as a resource for pt. Brief assessment Supportive Counseling documented in this encounter Plan of Treatment Upcoming Encounters Date Type Department Care Team (Late st Contact Info) Description 10/17/2023 8:30 AM EDT Office Visit Hematology/Oncology at [address] [phone] Boy Tovar MD [facility] DR HEMATOLOGY [place] [address] 10/17/2023 9:00 AM EDT Infusion Hematology Oncology at [address] [phone] documented as of this encounter Visit Diagnoses Not on filedocumented in this encounter Care Teams Unemployment Benefits Claims Taker Relationship Specialty Start Date End Date Nick Martinez MD [address] [place] [address] PCP - General Internal Medicine 07/01/18 documented as of this encounter
--- OUTSIDE RECORDS SUMMARY | 2023-10-17 04:00 | XMS_ITS | Encounter Summary ---
Author Organization [facility] [place] [address] Care Team Providers Care Manager Agriculture Name Role Phone Nick Martinez MD Primary Care Provider [phone] Reason for Visit * Reason Onset Date Comments Medication Refill 08/04/2021 Encounter Details Date Type Department Care Team (Late st Contact Info) Description 08/04/2021 Refill Hematology/Oncology at [address] [phone] Linda Zepeda, RN Pneumonitis Social History Tobacco Use Types Packs/Day Years [...] slept in a correction (including now)? No 02/04/2021 Sex and Gender Information Value Date Recorded Sex Assigned at Not on file Gender Identity Not on file Sexual Orientation Not on file documented as of this encounter Plan of Treatment Upcoming Encounters Date Type Department Care Team (Late st Contact Info) Description 10/17/2023 8:30 AM EDT Office Visit Hematology/Oncology at [address] [phone] Boy Tovar MD [facility] [place] [address] 10/17/2023 9:00 AM EDT Infusion Hematology Oncology at [address] [phone] documented as of this encounter Visit Diagnoses Diagnosis Pneumonitis Pneumonia, organism unspecified Primary malignant 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 Malignant neoplasm of upper lobe, bronchus or lung Brain metastasis 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
--- OUTSIDE RECORDS SUMMARY | 2023-10-17 04:00 | XMS_ITS | Encounter Summary ---
Author Organization [facility] [place] [address] Care Team Providers Care Couturiere Name Role Phone Nick Martinez MD Primary Care Provider [phone] Encounter Details Date Type Department Care Team (Late st Contact Info) Description 12/14/2021 Notes Only Hematology/Oncology at [address] [phone] Azalea Watkins, ELECTRIC CRANE OPERATOR OFFICE OF CARE MANAGEMENT Social History [...] Progress Notes * Azalea Watkins MSW - 12/14/2021 1:45 PM EDT Follow up with Raffy during his infusion visit today. He indicated he is feeling fairly well. He will have a scan in a few weeks and is hoping for good news. He is busy with work. His changed jobs and her schedule works better especially for their 4 year old. Their other children are doing well overall. Raffy did not identify any new needs today. Offered support. Reminded Raffy of ELECTRIC CRANE OPERATOR availability and contact information. Will continue to follow for support and resources. Brief assessment Supportive Counseling documented in this encounter Plan of Treatment Upcoming Encounters Date Type Department Care Team (Late st Contact Info) Description 10/17/2023 8:30 AM EDT Office Visit Hematology/Oncology at [address] [phone] Boy Tovar MD [facility] HEMATOLOGY [place] [address] 10/17/2023 9:00 AM EDT Infusion Hematology Oncology at [address] [phone] documented as of this encounter Visit Diagnoses Not on filedocumented in this encounter Care Teams Couturiere Relationship Specialty Start Date End Date Nick Martinez MD [address] [place] [address] PCP - General Internal Medicine 07/01/18 documented as of this encounter
--- OUTSIDE RECORDS SUMMARY | 2023-10-17 04:00 | XMS_ITS | Encounter Summary ---
Author Organization [facility] [place] [address] Care Team Providers Care Asphalt Machine Operator Name Role Phone Nick Martinez MD Primary Care Provider Encounter Details Date Type Department Care Team (Late st Contact Info) Description 12/14/2021 1:00 PM EDT Office Visit Hematology/Oncology at [address] [phone] Boy Tovar MD [facility] DR HEMATOLOGY [place] [address] Aliyah Thakur APRN [facility] DR HEMATOLOGY [place] [address] Primary malignant neoplasm of right upper lobe [...] Sign Reading Time Taken Comments Blood Pressure 133/71 12/14/2021 12:52 PM EDT Pulse 99 12/14/2021 12:52 PM EDT Temperature 36.1 ??C (96.9 ??F) 12/14/2021 1 2:52 PM EDT Respiratory Rate 18 12/14/2021 12:5 2 PM EDT Oxygen Saturation 99% 12/14/2021 12: 52 PM EDT Inhaled Oxygen Concentration - - Weight 111.9 kg (246 lb 9.6 oz) 022 12:52 PM EDT Height 177.8 cm (5' 10) 12/14/2021 12: 52 PM EDT Body Mass Index 35.38 12/14/2021 12:52 PM EDT documented in this encounter Progress Notes * Boy Tovar MD - 12/14/2021 1:00 PM EDT Images from the original note were not included. Hematology & Medical Oncology [place] [address] [address] Raffy Latif is being seen for cT1cN3 [...] consolidative immunotherapy with durvalumab on 04.20.21. Plan - Labs and toxicities assessed and acceptable for ongoing treatment. - Cough continues to linger but has improved per pt report. Patient was informed that if he develops shortness of breath, worsening of cough, or fevers to please call the office. - RTC in 4 weeks. Next scan is scheduled for 12/28 at [facility]. - continue consolidative immunotherapy with durvalumab. 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 Uses inhaler when he needs it- Most often at home. Eating well and gaining weight. No diarrhea. Occasional constipated. Left side of his neck became very sore and so went to chiropractor. That helped. Has some discomfort Stretching from the right arm pit up to the left neck. It does seem like its getting better. Still chewing tobacco about the same amount - has tried patches without success. Considering gum orlozenges, but is not currently interested in trying to quit. 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 Busy lifestyle with kids at home (youngest is 4 years old, 21, oldest 37 and recently started pre-school). Denies diarrhea. No new rashes or skin changes. Energy level is low, but he thinks that's related to poor sleep d/t family and work stresses. Denies headache, dizziness, loss of balance. No new or worsening pain. No numbness or tingling. Appetite good - always hungry. Continues to gain weight. 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 Social History/Support Network: Home situation: Lives with in [facility] with Velvet. 35 years. 3 children and plan to adopt another one through foster care. 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 38 Pk [...] 03.02.21 - 04.08.21 concurrent carbo/paclitaxel and XRT 2.14.22 Started consolidative durvalumab ONCBCN ONCOLOGY (AMB) 05/18/2021 06/15/2021 07/13/2021 08/10/2021 09/14/2021 10/12/2021 11/16/2021 Day, Cycle Day 1, Cycle 2 Day 1, Cycle 3 Day 1, Cycle 5 Day 1, Cycle 6 Day 1, Cycle 7 Day 1, Cycle 8 Day 1, Cycle 9 CARBOplatin (Paraplatin) IV - - - - - - - durvalumab 50 mg/mL (Imfinzi) IV 1,500 mg 1,500 mg 1,500 mg 1,500 mg 1,500 mg 1,500 mg 1,500 mg PACLitaxeL (Taxol) IV - - - - - - - Patient [...] Exam: Wt Readings from Last 3 Encounters: 12/14/21 111.9 kg (246 lb 9.6 oz) 11/16/21 110.1 kg (242 lb 12.8 oz) 10/12/21 107.4 kg (236 lb 12.8 oz) Temp Readings from Last 3 Encounters: 12/14/21 36.1 ??C (96.9 ??F) (Temporal) 11/16/21 36.1 ??C (96.9 ??F) (Temporal) 10/12/21 36.2 ??C (97.1 ??F) (Temporal) BP Readings from Last 3 Encounters: 12/14/21 133/71 11/16/21 109/76 10/12/21 128/76 Pulse Readings from Last 3 Encounters: 12/14/21 99 11/16/21 85 10/12/21 86 Body surface area is 2.35 meters squared. Wt Readings from Last 3 Encounters: 12/14/21 111.9 kg (246 lb 9.6 oz) 11/16/21 110.1 kg (242 lb 12.8 oz) 10/12/21 107.4 kg (236 lb 12.8 oz) KPS Score ECOG Grade [...] totally confined to bed or chair BP 133/71 (Patient Position: Sitting) Pulse 99 Temp 36.1 ??C (96.9 ??F) (Temporal) Resp 18 Ht 177.8 cm (5' 10) Wt 111.9 kg (246 lb 9.6 oz) SpO2 99% BMI 35.38 kg/m?? Physical Exam Physical Exam Constitutional: General: Not in acute distress. Appearance: Normal appearance. Normal weight. Not ill-appearing, toxic-appearing or diaphoretic. HENT: Head: Atraumatic. Eyes: General: No scleral icterus. Right eye: No discharge. Left eye: No discharge. Conjunctiva/sclera: Conjunctivae normal. Pulmonary: Effort: Pulmonary effort is normal. Neurological: General: No focal deficit present. Mental Status: Alert and oriented to person, place, and time. Mental status is at baseline. Psychiatric: Mood and Affect: Mood normal. Behavior: Behavior normal. Thought Content: Thought content normal. Judgment: Judgment normal. Review of Laboratory Data: 12.14.21 Sodium 139 potassium 3.7 chloride 103 BUN [...] platelet count 254,000 Review of Imaging Data: 09.02.[address] 04/11/21- CT chest- ?? COMPARISON: [...] AM EDT Office Visit Hematology/Oncology at [address] [phone] Boy Tovar MD [facility] DR HEMATOLOGY [place] [address] 10/17/2023 9:00 AM EDT Infusion Hematology Oncology at [address] [phone] documented as of this encounter Visit Diagnoses [...] gland documented in this encounter Care Teams Asphalt Machine Operator Relationship Specialty Start Date End Date Nick Martinez MD [address] [place] [address] PCP - General Internal Medicine 07/01/18 documented as of this encounter
--- OUTSIDE RECORDS SUMMARY | 2023-10-17 04:00 | XMS_ITS | Encounter Summary ---
Author Organization [facility] [place] [address] Care Team Providers Care Exercise Instructor Name Role Phone Nick Martniez MD Primary Care Provider Reason for Visit * Reason Comments Chemotherapy [id number] * Treatment/Therapy Plan Authorization (Routine) - Closed Specialty Diagnoses / Procedures Referred By Contac t Referred To Contact Hematology and Oncology Diagnoses Primary malignant 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 Procedures [id number] Boy Jackson MD [facility] DR [place] [address] Boy Tovar MD [address] [place] [address] [place] [address] Referral ID Status Reason Start Date Expiration Date Visits Re quested Visits Authorized [id number] Closed 11/05/2021 11/05/2022 99 99 Encounter Details Date Type Department Care Team (Late st Contact Info) Description 12/14/2021 1:30 PM EDT Infusion Hematology Oncology at [address] [phone] Primary malignant neoplasm of right [...] as of this encounter Progress Notes * Tabatha Becerra RN - 12/14/2021 1:30 PM EDT INFUSION THERAPY ADMINISTRATION NOTES DIAGNOSIS: NSCLC CYCLE #10: Day 1 - Durvalumab REASON FOR VISIT: To receive immunotherapy. SUBJECTIVE: Raffy offers no complaints. OBJECTIVE: Seen by provider. Ready to treat. LAB DATA: Done today at [facility] and no holds per [place] orders. IV ACCESS: PIV right hand Pre administration: Chemotherapy orders independently verified for drug name, route, and dosage per patient's height, weight and BSA by Tabatha Burgos RN and Staff Pharmacist(s). REACTIONS (DESCRIPTION, TIME, INTERVENTION AND EFFECTIVENESS) none ASSESSMENT: Raffy was awake, alert and tolerated treatment well. PIV discontinued prior to dismissal. PLAN: Return to clinic as planned. documented in this encounter Plan of Treatment Upcoming Encounters Date Type Department Care Team (Late st Contact Info) Description 10/17/2023 8:30 AM EDT Office Visit Hematology/Oncology at [address] [phone] Boy Tovar MD [facility] DR HEMATOLOGY [place] [address] 10/17/2023 9:00 AM EDT Infusion Hematology Oncology at [address] [phone] documented as of this encounter Visit Diagnoses [...] 1,500 mg, Intravenous, ONCE, 1 dose, On Tue12/14/21 at 1445, Administer over 60 Minutes, This agent is restricted to outpatient use. Is this drug being given as an outpatient? Yes New Bag 12/14/2021 1:48 PM EDT 1,500 mg 280 mL/hr documented in this encounter Care Teams Exercise Instructor Relationship Specialty Start Date End Date Nick Martinez MD [address] [place] [address] PCP - General Internal Medicine 07/01/18 documented as of this encounter
--- OUTSIDE RECORDS SUMMARY | 2023-10-17 04:00 | XMS_ITS | Encounter Summary ---
Author Organization Formerly [facility] [place] [address] Care Team Providers Care Dispatch Specialist Name Role Phone Nick Martinez MD Primary Care Provider Reason for Visit * Reason Comments Chemotherapy Cycle 9, Day 1; Durv alumab * Treatment/Therapy Plan Authorization (Routine) - Closed Specialty Diagnoses / Procedures Referred By Contac t Referred To Contact Hematology and Oncology Diagnoses Primary malignant 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 Procedures [id number] Boy Jackson MD [facility] [place] [address] Boy Tovar MD [address] [place] [address] [place] [address] Referral ID Status Reason Start Date Expiration Date Visits Re quested Visits Authorized [id number] Closed 11/05/2021 11/05/2022 99 99 Encounter Details Date Type Department Care Team (Late st Contact Info) Description 11/16/2021 2:30 PM EDT Infusion Hematology Oncology at [address] [phone] Primary malignant neoplasm of right upper lobe [...] as of this encounter Progress Notes * Jem Mann RN - 11/16/2021 2:30 PM EDT INFUSION THERAPY ADMINISTRATION NOTES DIAGNOSIS: NSCLC CYCLE #9: Day 1 - Durvalumab REASON FOR VISIT: To receive immunotherapy. SUBJECTIVE: Raffy offers no complaints. OBJECTIVE: Seen by provider. Ready to treat. LAB DATA: Done today at [facility] and no holds per [place] orders. IV ACCESS: PIV right hand Pre administration: Chemotherapy orders independently verified for drug name, route, and dosage per patient's height, weight and BSA by JEM MANN, CHERYL and Staff Pharmacist(s). REACTIONS (DESCRIPTION, TIME, INTERVENTION AND EFFECTIVENESS) none ASSESSMENT: Raffy was awake, alert and tolerated treatment well. PIV discontinued prior to dismissal. PLAN: Return to clinic as planned. documented in this encounter Plan of Treatment Upcoming Encounters Date Type Department Care Team (Late st Contact Info) Description 10/17/2023 8:30 AM EDT Office Visit Hematology/Oncology at [address] [phone] Boy Tovar MD [facility] DR [place] [address] 10/17/2023 9:00 AM EDT Infusion Hematology Oncology at [address] [phone] documented as of this encounter Visit Diagnoses [...] 1,500 mg, Intravenous, ONCE, 1 dose, On 11/16/21 at 1615, Administer over 60 Minutes, This agent is restricted to outpatient use. Is this drug being given as an outpatient? Yes New Bag 11/16/2021 3:34 PM EDT 1,500 mg 280 mL/hr documented in this encounter Care Teams Dispatch Specialist Relationship Specialty Start Date End Date Nick Martinez MD [address] [place] [address] PCP - General Internal Medicine 07/01/18 documented as of this encounter
--- OUTSIDE RECORDS SUMMARY | 2023-10-17 04:00 | XMS_ITS | Encounter Summary ---
Author Organization [facility] [place] [address] Care Team Providers Care Computer Network And Systems Engineer Name Role Phone Nick Martinez MD Primary Care Provider [phone] Encounter Details Date Type Department Care Team (Late st Contact Info) Description 06/15/2021 Notes Only Hematology/Oncology at [address] [phone] Azalea Watkins, [employer] OFFICE OF CARE MANAGEMENT Social History Tobacco [...] Progress Notes * Azalea Watkins MSW - 06/15/2021 3:05 PM EDT Follow up with pt during his infusion visit today. Pt indicated he is doing fairly well. He is backto work and his continues to work. He indicated his family was well. Pt with questions re some medical bills he has received. Gave him the contact information to Karen to call and discuss directly. Pt did not identify any new needs. Will continue to follow as indicated. Patient Financial Assistance/Insurance documented in this encounter Plan of Treatment Upcoming Encounters Date Type Department Care Team (Late st Contact Info) Description 10/17/2023 8:30 AM EDT Office Visit Hematology/Oncology at [address] [phone] Byo Tovar MD [facility] HEMATOLOGY [place] [address] 10/17/2023 9:00 AM EDT Infusion Hematology Oncology at [address] [phone] documented as of this encounter Visit Diagnoses Not on filedocumented in this encounter Care Teams Computer Network And Systems Engineer Relationship Specialty Start Date End Date Nick Martinez MD [address] [place] [address] PCP - General Internal Medicine 07/01/18 documented as of this encounter
--- OUTSIDE RECORDS SUMMARY | 2023-10-17 04:00 | XMS_ITS | Encounter Summary ---
Author Organization [place] [address] Care Team Providers Care Product Marketing Coordinator Name Role Phone Nick Martinez MD Primary Care Provider [phone] Encounter Details Date Type Department Care Team (Latest Contact Info) Description 04/15/2022 8:57 AM EST - 04/15/2022 9:22 AM [facility] Hospital Encounter Hematology [place] [phone] Primary malignant neoplasm of right upper lobe [...] AM EDT Office Visit Hematology/Oncology at [address] [phone] Boy Tovar MD [facility] [place] [address] 10/17/2023 9:00 AM EDT Infusion Hematology Oncology at [address] [phone] documented as of this encounter Procedures Procedure Name Priority Date/Time Associated Diagnosis Comments HEMOGRAM STAT 04/15/2022 9:14 AM EST Primary malignant 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 DIFFERENTIAL, AUTOMATED STAT 04/15/2022 9:14 AM EST Primary malignant 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 HC CBC,PLT & AUTO DIFF STAT 9:14 AM EST Primary malignant 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 HC VENIPUNCTURE STAT 04/15/2022 9:14 AM EST Primary malignant 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 COMPREHENSIVE METABOLIC PANEL STAT 04/15/2022 9:14 AM EST Primary malignant 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 documented in this encounter Results * (ABNORMAL) Differential, Automated (04/15/2022 9:14 AM EST) Neutrophil % 70.4 % [facility] Neutrophil Absolute 4.05 1.70 - 6.10 x10(3)/mc L [facility] Lymph % 15.8 % [facility] Lymphocytes Abs 0.9 0.9 - 3.2 x10(3)/mc L [facility] Monocyte % 10.4 % [facility] Monocyte Abs 0.6 0.3 - 0.9 x10(3)/mc L [facility] Eos % 1.7 % [facility] Eosinophils Abs 0.1 0.0 - 0.4 x10(3)/mc L [facility] Basophil % 0.3 % [facility] Baso Absolute 0.0 0.0 - 0.1 x10(3)/mc L [facility] Immature Gran % 1.40 % [facility] Comment: Immature granulocytes(IG's)percentage and absolute count will include metamyelocytes, myelocytes, and promyelocytes. Blood smears from CBCs yielding IG's will be scanned manually for concordance. If this scan disagrees with the automated IG or if promyelocytes are noted, a manual differential will be performed. Immature Gran Absolute 0.08(H) 0.00 - 0.04 x10(3)/mc L [facility] Blood 04/15/2022 9:14 AM EST 04/15/2022 9:21 AM EST Narrative Resulting Agency Comment Spec In Lab Boy Tovar MD HEMATOLOGY ORDERABLE S [facility] [place] [address] * (ABNORMAL) Hemogram (04/15/2022 9:14 AM EST) White Blood Cell 5.8 4.0 - 9.5 x10(3)/mc L [facility] Red Blood Cell 4.64 4.58 - 5.54 x10(6)/mc L [facility] Hemoglobin 14.0 13.7 - 16.5 g/dL [facility] Hematocrit 39.8(L) 40.5 - 48.5 % [facility] Mean Cell Volume 85.8 82.9 - 93.1 fL [facility] Mean Cell Hemoglobin 30.2 27.5 - 32.1 pg [facility] Mean Cell Hemoglobin Concentration 35.2 32.0 - 35.7 g/dL [facility] Platelet 204 145 - 357 x10(3)/mc L [facility] RDW Standard Deviation 38.5 36.0 - 45.0 fL [facility] RDW coefficient of variation 12.3 11.4 - 13.8 % [facility] Mean Platelet Volume 8.9 7.6 - 12.9 fL [facility] NRBC% auto 0.0 % [facility] NRBC Absolute 0.000 0.000 - 0.000 x10(3)/mc L [facility] Blood 04/15/2022 9:14 AM EST 04/15/2022 9:21 AM EST Narrative Resulting Agency Comment Spec In Lab Boy Tovar MD HEMATOLOGY ORDERABLE S [facility] [place] [address] * Comprehensive metabolic panel (non-fasting) (04/15/2022 9:14 AM EST) Glucose 82 65 - 199 mg/dL [facility] Comment:Diabetes: >=200 mg/d L plus symptoms Blood Urea Nitrogen 19 10 - 20 mg/dL [facility] Creatinine 1.29 0.80 - 1.50 mg/dL [facility] Sodium 141 135 - 145 mmol/L [facility] Potassium 4.4 3.5 - 5.0 mmol/L [facility] Comment: Please note: ??Patients with WBC >100,000 may have falsely elevated Potassium levels. ??For accurate Potassium quantification in these patients send serum separator tube (gold top) for subsequent determinations. ??Contact the Clinical Chemistry Laboratory if there are any questions. Chloride 101 98 - 107 mmol/L [facility] Carbon Dioxide 29 22 - 31 mmol/L [facility] Anion Gap 11 5 - 15 mmol/L [facility] Calcium 9.9 8.5 - 10.5 mg/dL [facility] Protein, Total 7.4 6.1 - 8.0 g/dL [facility] Albumin 4.7 3.2 - 5.2 g/dL [facility] Aspartate Aminotransferase 19 0 - 39 unit/L [facility] Alanine Aminotransferase 22 0 - 55 unit/L [facility] Alkaline Phosphatase 70 40 - 130 unit/L [facility] Bilirubin, Total 0.4 0.2 - 1.3 mg/dL [facility] Est Glomerular Filtration Rate 62 >=60 mL/min/1. 73 m?? [facility] Comment: This patient's estimated GFR [...] and symptoms in addition to eGFR. Blood 04/15/2022 9:14 AM EST 04/15/2022 9:21 AM EST Narrative Resulting Agency Comment Spec In Lab Boy Tovar MD CHEMISTRY ORDERABLES [facility] [place] [address] * Magnesium (04/15/2022 9:14 AM EST) Magnesium 0.87 0.69 - 1.07 mmol/L [facility] Blood 04/15/2022 9:14 AM EST 04/15/2022 9:21 AM EST Narrative Resulting Agency Comment Spec In Lab Boy Tovar MD CHEMISTRY ORDERABLES Performing Organization Address [facility] Co de Phone Number [facility] [place] [address] documented in this encounter Visit Diagnoses Diagnosis [...] gland documented in this encounter Care Teams Product Marketing Coordinator Relationship Specialty Start Date End Date Nick Martinez MD [address] [place] [id number] PCP - General Internal Medicine 07/01/18 documented as of this encounter
--- OUTSIDE RECORDS SUMMARY | 2023-10-17 04:00 | XMS_ITS | Encounter Summary ---
Author Organization [facility] [place] [address] Care Team Providers Care Clarifier Operator Name Role Phone Nick Martinez MD Primary Care Provider [phone] Encounter Details Date Type Department Care Team (Latest Contact Info) Description 01/11/2022 Travel Social History Tobacco Use Types Packs/Day [...] 8:30 AM EDT Office Visit Hematology/Oncology at [address] [phone] Boy Tovar MD [facility] [address] [place] [address] 10/17/2023 9:00 AM EDT Infusion Hematology Oncology at [address] [phone] documented as of this encounter Visit Diagnoses Not on filedocumented in this encounter Care Teams Clarifier Operator Relationship Specialty Start Date End Date Nick Martinez MD [address] [place] [address] PCP - General Internal Medicine 07/01/18 documented as of this encounter
--- OUTSIDE RECORDS SUMMARY | 2023-10-17 04:00 | XMS_ITS | Encounter Summary ---
Author Organization [facility] [place] [address] Care Team Providers Care Immigration Patrol Inspector Name Role Phone Nick Martinez MD Primary Care Provider [phone] Encounter Details Date Type Department Care Team (Latest Contact Info) Description 04/15/2022 Travel Social History Tobacco Use Types Packs/Day [...] 8:30 AM EDT Office Visit Hematology/Oncology at [address] [phone] Boy Tovar MD [facility] [address] [place] [address] 10/17/2023 9:00 AM EDT Infusion Hematology Oncology at [address] [phone] documented as of this encounter Visit Diagnoses Not on filedocumented in this encounter Care Teams Immigration Patrol Inspector Relationship Specialty Start Date End Date Nick Martinez MD [address] [place] [address] PCP - General Internal Medicine 07/01/18 documented as of this encounter
--- OUTSIDE RECORDS SUMMARY | 2023-10-17 04:00 | XMS_ITS | Encounter Summary ---
Author Organization [facility] Address [facility] [place] [address] Care Team Providers Care Quality Lab Technician Name Role Phone Nick Martinez MD Primary Care Provider [phone] Reason for Visit * Reason Comments Chemotherapy C4D1 Durvalumab * Treatment/Therapy Plan Authorization (Routine) - Closed Specialty Diagnoses / Procedures Referred By Contac t Referred To Contact Hematology and Oncology Diagnoses Primary malignant 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 Procedures [id number] Boy Jackson MD [facility] [address] [place] [address] Boy Tovar MD [address] [place] [address] DR HEMATOLOGY [place] [address] Referral ID Status Reason Start Date Expiration Date Visits Re quested Visits Authorized [id number] Closed 11/05/2021 11/05/2022 99 99 Encounter Details Date Type Department Care Team (Late st Contact Info) Description 07/13/2021 2:00 PM EDT Infusion Hematology Oncology at [address] [phone] Primary malignant neoplasm of right [...] slept in a assisted (including now)? No 02/04/2021 Sex and Gender Information Value Date Recorded Sex Assigned at Not on file Gender Identity Not on file Sexual Orientation Not on file documented as of this encounter Progress Notes * Maddy Aquino RN - 07/13/2021 2:00 PM EDT INFUSION THERAPY ADMINISTRATION NOTES DIAGNOSIS: NSCLC CYCLE #: Cycle 4, Day 1 - Durvalumab REASON FOR VISIT: To receive immunotherapy. SUBJECTIVE: Raffy offers no complaints. OBJECTIVE: Seen by provider. Ready to treat. LAB DATA: WBC - 6.77, H/H - 13.3/40.5, Plt Ct - 196, ANC - 5.32, Lytes wnl, BUN/CR - 19/1.0 IV ACCESS: PIV Pre administration: Chemotherapy orders independently verified for drug name, route, and dosage per patient's height, weight and BSA by Maddy Aquino, CHERYL and Staff Pharmacist(s). REACTIONS (DESCRIPTION, TIME, INTERVENTION AND EFFECTIVENESS) none ASSESSMENT: Raffy was awake, alert and tolerated treatment well. PIV discontinued prior to dismissal. PLAN: Return to clinic as planned. documented in this encounter Plan of Treatment Upcoming Encounters Date Type Department Care Team (Late st Contact Info) Description 10/17/2023 8:30 AM EDT Office Visit Hematology/Oncology at [address] [phone] Boy Tovar MD [facility] DR [place] [address] 10/17/2023 9:00 AM EDT Infusion Hematology Oncology at [address] [phone] documented as of this encounter Visit Diagnoses [...] 1,500 mg, Intravenous, ONCE, 1 dose, On Tue07/13/21 at 1615, Administer over 60 Minutes, This agent is restricted to outpatient use. Is this drug being given as an outpatient? Yes New Bag 07/13/2021 3:18 PM EDT 1,500 mg 280 mL/hr documented in this encounter Care Teams Quality Lab Technician Relationship Specialty Start Date End Date Nick Martinez MD [address] [place] [address] PCP - General Internal Medicine 07/01/18 documented as of this encounter
--- OUTSIDE RECORDS SUMMARY | 2023-10-17 04:00 | XMS_ITS | Encounter Summary ---
Author Organization [facility] [place] [address] Care Team Providers Care Payroll And Benefits Coordinator Name Role Phone Nick Martinez MD Primary Care Provider [phone] Encounter Details Date Type Department Care Team (Late st Contact Info) Description 11/16/2021 2:00 PM EDT Office Visit Hematology/Oncology at [address] [phone] Boy Tovar MD [facility] [address] [place]AT[place] [address] Aliyah Thakur APRN [facility] [address] [place] [address] Primary malignant neoplasm of right upper lobe [...] slept in a ch[facility] (including now)? No 02/04/2021 Sex and Gender Information Value Date Recorded Sex Assigned at Not on file Gender Identity Not on file Sexual Orientation Not on file documented as of this encounter Last Filed Vital Signs Vital Sign Reading Time Taken Comments Blood Pressure 109/76 11/16/2021 2:07 PM EDT Pulse 85 11/16/2021 2:07 PM EDT Temperature 36.1 ??C (96.9 ??F) 11/16/2021 2:07 PM ED T Respiratory Rate 18 11/16/2021 2:07 PM EDT Oxygen Saturation 99% 11/16/2021 2:07 PM EDT Inhaled Oxygen Concentration - - Weight 110.1 kg (242 lb 12.8 oz) 11/16/2021 2:07 PM EDT Height 177.8 cm (5' 10) 11/16/2021 2:07 PM EDT Body Mass Index 34.84 11/16/2021 2:07 PM EDT documented in this encounter Progress Notes * Bisi Holils APRN - 11/16/2021 2:00 PM EDT Images from the original note were not included. Hematology & Medical Oncology [address] [address] Raffy Latif is being seen for cT1cN3 [...] Next scan is scheduled for 12/[address] [facility]. - continue consolidative immunotherapy with durvalumab Bisi Hollis, LEGAL COLLECTOR 11/16/2021 Medical Oncology & Hematology [facility] HPI/Interval History/Subjective: Last seen 10/12/21 He continues to have a cough, feels it is improving, though he thinks he had a cold a couple weeks ago and may be what's contributing to it lingering - No fevers, chills. Uses albuterol inhaler infrequently, more when it's hot outside. Otherwise breathing pretty well. Is not using any medication management for cough. Still chewing tobacco about the same amount - has tried patches without success. Considering gum orlozenges, but is not currently interested in trying to quit. 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 Busy lifestyle with kids at home (youngest is 4 years old and recently started pre-school). Denies diarrhea. No [...] History/Support Network: Home situation: Lives with in [facility] with Velvet. 35 years. 3 children and plan to adopt another one through foster care. 1 grandchild Employment: [employer] Tobacco use: Quit in 1999. 38 Pk [...] 04.20.21 Started consolidative durvalumab ONCBCN ONCOLOGY (AMB) 04/20/2021 05/18/2021 06/15/2021 07/13/2021 08/10/2021 09/14/2021 10/12/2021 Day, Cycle Day 1, Cycle 1 Day 1, Cycle 2 Day 1, Cycle 3 Day 1, Cycle 5 Day 1, Cycle 6 Day 1, Cycle 7 Day 1, Cycle 8 CARBOplatin (Paraplatin) IV - - - - [...] Exam: Wt Readings from Last 3 Encounters: 11/16/21 110.1 kg (242 lb 12.8 oz) 10/12/21 107.4 kg (236 lb 12.8 oz) 09/14/21 104.7 kg (230 lb 12.8 oz) Temp Readings from Last 3 Encounters: 11/16/21 36.1 ??C (96.9 ??F) (Temporal) 10/12/21 36.2 ??C (97.1 ??F) (Temporal) 09/14/21 36.7 ??C (98.1 ??F) (Temporal) BP Readings from Last 3 Encounters: 11/16/21 109/76 10/12/21 128/76 09/14/21 115/76 Pulse Readings from Last 3 Encounters: 11/16/21 85 10/12/21 86 09/14/21 87 Body surface area is 2.33 meters squared. Wt Readings from Last 3 Encounters: 11/16/21 110.1 kg (242 lb 12.8 oz) 10/12/21 107.4 kg (236 lb 12.8 oz) 09/14/21 104.7 kg (230 lb 12.8 oz) KPS Score ECOG Grade [...] totally confined to bed or chair BP 109/76 (Patient Position: Sitting) Pulse 85 Temp 36.1 ??C (96.9 ??F) (Temporal) Resp 18 Ht 177.8 cm (5' 10) Wt 110.1 kg (242 lb 12.8 oz) SpO2 99% BMI 34.84 kg/m?? Physical Exam GENERAL: Appears well in no acute distress - normal appearance, not ill- appearing, toxic-appearing or diaphoretic CARDIOVASCULAR: Heart with regular rate and rhythm without S3,S4 or murmurs. No cyanosis or peripheral edema. PULMONARY: Inspiratory and expiratory wheezes bilaterally, thoughout all lung espitia. ABDOMEN: Abdomen soft and non-tender. BS normoactive MUSCULOSKELETAL: Moves and ambulates independently. EXTREMITIES: No edema or calf tenderness SKIN: No rashes, bruises or petechiae. NEURO: Alert and oriented to person, place, time. Speech clear and conversation appropriate to situation. No focal deficits. PSYCH: Mood/affect and behavior normal Review of Laboratory Data: 11/16/21 WBC 7.26, Hgb 13.8, Hct 38, plt 209, ANC 5.56 Glucose 99, Na 140, K 3.5, Calcium 9.2, BUN 18, Creat 1.1, Mg 1.8, T Bili 0.5, AST 20, ALT 24, Alk Phos 75, T protein 8.2, Albumin 3.9, TSH 2.13, Free T4 0.83 8/8/22 WBC 6.15, Hgb 13, Plt 190, ANC [...] 8:30 AM EDT Office Visit Hematology/Oncology at [address] [phone] Boy Tovar MD [facility] [address] HEMAT[place] [address] 10/17/2023 9:00 AM EDT Infusion Hematology Oncology at [address] [phone] documented as of this encounter Visit Diagnoses [...] gland documented in this encounter Care Teams Payroll And Benefits Coordinator Relationship Specialty Start Date End Date Nick Martinez MD [address] [place] [address] PCP - General Internal Medicine 07/01/18 documented as of this encounter
--- OUTSIDE RECORDS SUMMARY | 2023-10-17 04:00 | XMS_ITS | Encounter Summary ---
Author Organization [facility] [place] [address] Care Team Providers Care Associate Partner Name Role Phone Nick Martinez MD Primary Care Provider [phone] Encounter Details Date Type Department Care Team (Late st Contact Info) Description 01/11/2022 1:00 PM EST Office Visit Hematology/Oncology at [address] [phone] Boy Tovar MD [facility] DR HEMAT[place] [address] Aliyah Thakur APRN [facility] DR [place]EMAT[place] [address] Primary malignant neoplasm of right upper lobe [...] Sign Reading Time Taken Comments Blood Pressure 121/73 01/11/2022 12:56 PM EST Pulse 99 01/11/2022 12:56 PM EST Temperature 36.6 ??C (97.8 ??F) 01/11/2022 1 2:56 PM EST Respiratory Rate 18 01/11/2022 12:5 6 PM EST Oxygen Saturation 99% 01/11/2022 12: 56 PM EST Inhaled Oxygen Concentration - - Weight 113.5 kg (250 lb 3.2 oz) 022 12:56 PM EST Height 177.8 cm (5' 10) 01/11/2022 12: 56 PM EST Body Mass Index 35.9 01/11/2022 12:56 PM EST documented in this encounter Progress Notes * Bisi Hollis APRN - 01/11/2022 1:00 PM EST Images from the original note were not included. Hematology & Medical Oncology [address] [address] Raffy Latfi is being seen for cT1cN3 Stage III-C [...] Started consolidative immunotherapy with durvalumab on 04.20.21. Most recent CT scan on 12/28 reviewed with patient - shows no measurable masses, decreased prominence of confluent areas to right mid and upper lobes, and an unchanged (6mm) nodule to the left upper lobe. Plan - Labs and toxicities assessed and acceptable for ongoing treatment. - RTC in 4 weeks. - continue consolidative immunotherapy with Durvalumab (one more dose after today's). Bisi Hollis 01/07/2022 Medical Oncology & Hematology [facility] HPI/Interval History/Subjective: Last seen 12/14/2021 Breathing is good. Uses inhaler when he needs it- Most often at home. Coughing has improved. No diarrhea. Occasional constipated. Still chewing tobacco about the same amount - has tried patches without success. Considering gum orlozenges, but is not currently interested in trying to quit. 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 Busy lifestyle with kids at home (youngest is 4 years old (recently started preschool), 21, oldest 37). Denies diarrhea No new rashes or skin changes. Energy [...] eat a balanced diet while driving truck. We discussed opportunities to improve health like increasing fruits/ vegetables, drinking less soda or switching to diet soda, and increasing exercise. Social History/Support Network: Home situation: Lives with in [place] [facility] with Velvet. 35 years. 3 children and plan to adopt another one through foster care. 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 40 Pk [...] 04.20.21 Started consolidative durvalumab ONCBCN ONCOLOGY (AMB) 06/15/2021 07/13/2021 08/10/2021 09/14/2021 10/12/2021 11/16/2021 12/14/2021 Day, Cycle Day 1, Cycle 3 Day 1, Cycle 5 Day 1, Cycle 6 Day 1, Cycle 7 Day 1, Cycle 8 Day 1, Cycle 9 Day 1, Cycle 10 CARBOplatin (Paraplatin) IV - - - - [...] Encounters: 12/14/21 99 11/16/21 85 10/12/21 86 There is no height or weight on file to calculate BSA. Wt Readings from Last 3 Encounters: 12/14/21 [...] vitals taken for this visit. Physical Exam Physical Exam Constitutional: General: Not [...] Judgment: Judgment normal. Review of Laboratory Data: 01/11/22 WBC 6.97, H/H 13.7/39.9, plt 209, [...] platelet count 254,000 Review of Imaging Data: 12.28.[address] 04/11/21- [...] 8:30 AM EDT Office Visit Hematology/Oncology at [address] [phone] Boy Tovar MD [facility] HEMAT[place] [address] 10/17/2023 9:00 AM EDT Infusion Hematology Oncology at [address] [phone] documented as of this encounter [...] gland documented in this encounter Care Teams Associate Partner Relationship Specialty Start Date End Date Nick Martinez MD [address] [place] [id number] PCP - General Internal Medicine 07/01/18 documented as of this encounter
--- OUTSIDE RECORDS SUMMARY | 2023-10-17 04:00 | XMS_ITS | Encounter Summary ---
[place] [address] Care Team Providers Care Supervisor Dehydrogenation Name Role Phone Nick Martinez MD Primary Care Provider [phone] Reason for Referral * Diagnostic Test (Routine) - Closed Specialty Diagnoses / Procedures Referred By Mariana workman Referred To Contact Radiology Diagnoses Primary malignant 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 Procedures CT Chest w Contrast Bisi Hollis APRN [address] [place] [address] DR [place] [address] [facility] [place] [address] Referral ID Status Reason Start Date Expiration Date V isits Requested Visits Authorized [id number] Closed Specialty Service Requested 03/18/2022 09/16/2023 1 1 Encounter Details Date Type Department Care Team (Late st Contact Info) Description 03/18/2022 Orders Only Hematology/Oncology at [address] [phone] Bisi Hollis APRN [address] [place] [address] DR [place] [address] Primary malignant neoplasm of right [...] slept in a long-term (including now)? No 02/04/2021 Sex and Gender Information Value Date Recorded Sex Assigned at Not on file Gender Identity Not on file Sexual Orientation Not on file documented as of this encounter Plan of Treatment Upcoming Encounters Date Type Department Care Team (Late st Contact Info) Description 10/17/2023 8:30 AM EDT Office Visit Hematology/Oncology at [address] [phone] Boy Tovar MD [facility] DR HEMATOLOGY [place] [address] 10/17/2023 9:00 AM EDT Infusion Hematology Oncology at [address] [phone] documented as of this encounter [...] who have questions please contact the health outdoor emergency care technician that requested your imaging first. ? Electronically signed by: Rashaun Lewis MD, [facility] ([phone]), at 04/15/2022 1:36 PM Narrative 04/15/2022 1:36 PM EST EXAMINATION: CT [...] patients who have questions please contactthe health outdoor emergency care technician that requested your imaging first. Electronically signed by: Rashaun Lewis MD, [facility]([phone]), at 04/15/2022 1:36 PM Bisi Rice Innaabdulazizbennie [facility] IMG CT ORDERABLE S documented in this [...] gland documented in this encounter Care Teams Supervisor Dehydrogenation Relationship Specialty Start Date End Date Nick Martinez MD [address] [place] [address] PCP - General Internal Medicine 07/01/18 documented as of this encounter
--- OUTSIDE RECORDS SUMMARY | 2023-10-17 04:00 | XMS_ITS | Encounter Summary ---
Author Organization [facility] [place] [address] Care Team Providers Care Motion Picture Projectionist Apprentice Name Role Phone Nick Martinez MD Primary Care Provider Reason for Visit * Reason Comments Chemotherapy [id number] * Treatment/Therapy Plan Authorization (Routine) - Closed Specialty Diagnoses / Procedures Referred By Contac t Referred To Contact Hematology and Oncology Diagnoses Primary malignant 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 Procedures [id number] Boy Jackson MD [facility] DR [place]EMAT[place]Y [place] [address] Boy Tovar MD [address] [place] [address] DR HEMATOLOGY [place] [address] Referral ID Status Reason Start Date Expiration Date Visits Re quested Visits Authorized [id number] Closed 11/05/2021 11/05/2022 99 99 Encounter Details Date Type Department Care Team (Late st Contact Info) Description 08/10/2021 3:00 PM EDT Infusion Hematology Oncology at [address] [phone] Primary malignant neoplasm of right upper lobe [...] Progress Notes * Maddy Aquino RN - 08/10/2021 3:00 PM EDT INFUSION THERAPY ADMINISTRATION NOTES DIAGNOSIS: NSCLC CYCLE #: Cycle 5, Day 1 - Durvalumab REASON FOR VISIT: To receive immunotherapy. SUBJECTIVE: Raffy offers no complaints. OBJECTIVE: Seen by provider. Ready to treat. LAB DATA: reviewed and adequate for treatment today. IV ACCESS: PIV Pre administration: Chemotherapy orders [...] AM EDT Office Visit Hematology/Oncology at [address] [phone] Boy Tovar MD [facility] [place] [address] 10/17/2023 9:00 AM EDT Infusion Hematology Oncology at [address] [phone] documented as of this encounter Visit Diagnoses [...] 1,500 mg, Intravenous, ONCE, 1 dose, On Tue08/10/21 at 1615, Administer over 60 Minutes, This agent is restricted to outpatient use. Is this drug being given as an outpatient? Yes New Bag 08/10/2021 3:38 PM EDT 1,500 mg 280 mL/hr documented in this encounter Care Teams Motion Picture Projectionist Apprentice Relationship Specialty Start Date End Date Nick Martinez MD [address] [place] [address] PCP - General Internal Medicine 07/01/18 documented as of this encounter
--- OUTSIDE RECORDS SUMMARY | 2023-10-17 04:00 | XMS_ITS | Encounter Summary ---
[place] [address] Care Team Providers Care Development Officer Name Role Phone Nick Martinez MD Primary Care Provider [phone] Reason for Visit * Reason Onset Date Comments Prior Authorization 08/13/2021 Encounter Details Date Type Department Care Team (Late st Contact Info) Description 08/13/2021 Telephone Hematology [place] [phone] Manjula Liu Prior Authorization Social [...] in a care home (including now)? No 02/04/2021 Sex and Gender Information Value Date Recorded Sex Assigned at Not on file Gender Identity Not on file Sexual Orientation Not on file documented as of this encounter Miscellaneous Notes * Telephone Encounter - Manjula Forde - 08/13/2021 10:44 AM EDT Procedure Prior Authorization Procedure/Cpt: 7150 CT Ches w/o contrast Rationale for request: C34.11 Health plan: Health Plan Authorizing termite control service representative name: Health Plan Faxed to health plan on: Call to plan 08/13/21 Health plan decision: PA not required. Call Ref # [id number] documented in this encounter Plan of Treatment Upcoming Encounters Date Type Department Care Team (Late st Contact Info) Description 10/17/2023 8:30 AM EDT Office Visit Hematology/Oncology at [address] [phone] Boy Tovar MD [facility] DR [place] [address] 10/17/2023 9:00 AM EDT Infusion Hematology Oncology at [address] [phone] documented as of this encounter Visit Diagnoses Not on filedocumented in this encounter Care Teams Development Officer Relationship Specialty Start Date End Date Nick Martinez MD [address] [place] [address] PCP - General Internal Medicine 07/01/18 documented as of this encounter
--- OUTSIDE RECORDS SUMMARY | 2023-10-17 04:00 | XMS_ITS | Encounter Summary ---
Author Organization [facility] [place] [address] Care Team Providers Care Acoustic Intelligence Specialist Name Role Phone Nick Martinez MD Primary Care Provider [phone] Reason for Visit * Reason Comments Chemotherapy Cycle 3, Day 1 - Dur valumab * Treatment/Therapy Plan Authorization (Routine) - Closed Specialty Diagnoses / Procedures Referred By Contac t Referred To Contact Hematology and Oncology Diagnoses Primary malignant 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 Procedures [id number] Boy Jackson MD [facility] DR HEMATOLOGY [place] [address] Boy Tovar MD [address] [place] [address] DR HEMATOLOGY [place] [address] Referral ID Status Reason Start Date Expiration Date Visits Re quested Visits Authorized [id number] Closed 11/05/2021 11/05/2022 99 99 Encounter Details Date Type Department Care Team (Late st Contact Info) Description 06/15/2021 3:00 PM EDT Infusion Hematology Oncology at [address] [phone] Primary malignant neoplasm of right upper lobe [...] slept in a residential (including now)? No 02/04/2021 Sex and Gender Information Value Date Recorded Sex Assigned at Not on file Gender Identity Not on file Sexual Orientation Not on file documented as of this encounter Progress Notes * Ginette Freeman, RN - 06/15/2021 3:00 PM EDT INFUSION THERAPY ADMINISTRATION NOTES DIAGNOSIS: NSCLC CYCLE #: Cycle 3, Day 1 - Durvalumab REASON FOR VISIT: To receive immunotherapy. SUBJECTIVE: Raffy offers no complaints. OBJECTIVE: Seen by provider. Ready to treat. LAB DATA: WBC - 6.54, H/H - 12.0/37.3, Plt Ct - 280, ANC - 5.04, Lytes wnl, BUN/CR - 12/1.0, MG++ -2.1 IV ACCESS: PIV Pre administration: Chemotherapy orders [...] AM EDT Office Visit Hematology/Oncology at [address] [phone] Boy Tovar MD [facility] DR HEMATOLOGY [place] [address] 10/17/2023 9:00 AM EDT Infusion Hematology Oncology at [address] [phone] documented as of this encounter Visit Diagnoses [...] 1,500 mg, Intravenous, ONCE, 1 dose, On 06/15/21 at 1615, Administer over 60 Minutes, This agent is restricted to outpatient use. Is this drug being given as an outpatient? Yes New Bag 06/15/2021 3:23 PM EDT 1,500 mg 280 mL/hr documented in this encounter Care Teams Acoustic Intelligence Specialist Relationship Specialty Start Date End Date Nick Martinez MD [address] [place] [address] PCP - General Internal Medicine 07/01/18 documented as of this encounter
--- OUTSIDE RECORDS SUMMARY | 2023-10-17 04:00 | XMS_ITS | Encounter Summary ---
Author Organization [facility] [place] [address] Care Team Providers Care Reed Fixer Name Role Phone Nick Martinez MD Primary Care Provider [phone] Encounter Details Date Type Department Care Team (Late st Contact Info) Description 12/28/2021 10:15 PM EDT Ancillary Procedure [place] [phone] Boy Tovar MD [facility] DR [place] [address] Social History Tobacco Use Types Packs/Day Years [...] slept in a fci (including now)? No 02/04/2021 Sex and Gender Information Value Date Recorded Sex Assigned at Not on file Gender Identity Not on file Sexual Orientation Not on file documented as of this encounter Plan of Treatment Upcoming Encounters Date Type Department Care Team (Late st Contact Info) Description 10/17/2023 8:30 AM EDT Office Visit Hematology/Oncology at [address] [phone] Boy Tovar MD [facility] DR [place] [address] 10/17/2023 9:00 AM EDT Infusion Hematology Oncology at [address] [phone] documented as of this encounter Procedures Procedure Name Priority Date/Time Associated Diagnosis Comments FILM LIBRARY STORAGE ONLY CT CHEST Routine 12/28/2021 10:10 PM EDT documented in this encounter Results * Film Library- Storage Only CT Chest (12/28/2021 10:10 PM EDT) Narrative [facility] - 12/28/2021 10:10 PM EDT This exam is auto-finalizing. It's purpose is for storage only. Boy Tovar MD IMG FILM LIBRARY ORD ERABLES [facility] [place], [place] documented in this encounter Visit Diagnoses Not on filedocumented in this encounter Care Teams Reed Fixer Relationship Specialty Start Date End Date Nick Martinez MD [address] [place] [address] PCP - General Internal Medicine 07/01/18 documented as of this encounter
--- OUTSIDE RECORDS SUMMARY | 2023-10-17 04:00 | XMS_ITS | Encounter Summary ---
Author Organization [facility] [place] [address] Care Team Providers Care Manager Nc Name Role Phone Nick Martinez MD Primary Care Provider [phone] Encounter Details Date Type Department Care Team (Late st Contact Info) Description 06/15/2021 2:30 PM EDT Office Visit Hematology/Oncology at [address] [phone] Linda Zepeda, RN Pneumonitis Social [...] Sign Reading Time Taken Comments Blood Pressure 109/66 06/15/2021 2:06 PM EDT Pulse 105 06/15/2021 2:06 PM EDT Temperature 36.4 ??C (97.5 ??F) 06/15/2021 2:06 PM ED T Respiratory Rate 18 06/15/2021 2:06 PM EDT Oxygen Saturation 98% 06/15/2021 2:06 PM EDT Inhaled Oxygen Concentration - - Weight 93.6 kg (206 lb 4.8 oz) 06/15/2021 2:06 P M EDT Height 177.8 cm (5' 10) 06/15/2021 2:06 PM EDT Body Mass Index 29.6 06/15/2021 2:06 PM EDT documented in this encounter Progress Notes * Linda Zepeda, LABELING SPECIALIST - 06/15/2021 2:30 PM EDT Images from the original note were not included. Hematology & Medical Oncology [address] [address] Raffy Latif is being seen for cT1cN3 Stage III-C non small cell lung cancer (adenocarcinoma) Assessment & Plan: Raffy Latif is a 60 y.o. male patient with a past medical history significant for a 40+ pack year smoking history who quit 20 years ago who has had limited engagement with medical community through the years but was noted to have a right upper lobe nodule found incidentally on imaging in 2018. For reasons that are not entirely clear he did not have a full evaluation at that time but ultimatelyhad follow-up imaging in November which demonstrated increased size and prompted a CT-guided biopsy which identified invasive adenocarcinoma but with insufficient quantity for further molecular's oranalyses. Received definitive concurrent chemotherapy/RT 03.02.21- 04.28.21. Started consolidative immunotherapy with durvalumab on 04.20.21. Recently developed new cough and worsened right side chest discomfort tat ultimately prompted ED evaluation and imaging below which I reviewed and communicated with radiation oncology about as well. While we were concerned about potential either immune mediated or radiation induced pneumonitis it seems he has responded well the the abx course given in the ED which is reassuring Mr. Latif returns today to continue immunotherapy. Cough has improved. Right sided chest discomfort resolved. No fevers or chills. He completed all his antibiotics. 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 Labs and toxicities assessed and are adequate to continue treatment today. Plan: 1. Proceed with C3 Durvalumab today 2. Follow up visit in 4 weeks with C4 and CBC,CMP, TSH, FT4. HPI/Interval History/Subjective: Mr. Latif returns today to continue treatment. He completed his antibiotics for the pneumonia andis feeling well. No fevers or chills. Cough has improved. He is not using the Tessalon Perles as much. Uses them at bedtime so the cough doesn't wake him up. Energy level has improved. 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 No other focal complaints today. Social History/Support Network: Home situation: Lives with in [facility] with Velvet. 35 years. 3 children and plan to adopt another one through foster care. 1 grandchild Employment: [employer] Tobacco use: Quit in 1999. 40 Pk [...] 04.20.21 Started consolidative durvalumab ONCBCN ONCOLOGY (AMB) 03/02/2021 03/09/2021 03/16/2021 03/23/2021 04/06/2021 04/20/2021 05/18/2021 Day, Cycle Day 1, Cycle 1 Day 8, Cycle 1 Day 15, Cycle 1 Day 22, Cycle 1 Day 29, Cycle 1 Day 1, Cycle 1 Day 1, Cycle 2 CARBOplatin (Paraplatin) IV 252 mg 252 mg 252 mg 252 mg 252 mg - - durvalumab 50 mg/mL (Imfinzi) IV - - - - - 1,500 mg 1,500 mg PACLitaxeL (Taxol) IV 50 mg/m2/dose = 118 mg 50 mg/m2/dose = 118 mg 50 mg/m2/dose = 118 mg 50 mg/m2/dose = 118 mg 50 mg/m2/dose = 118 mg - - Patient Active Problem List Diagnosis [...] Exam: Wt Readings from Last 3 Encounters: 06/15/21 93.6 kg (206 lb 4.8 oz) 06/01/21 94.3 kg (208 lb) 05/18/21 97.3 kg (214 lb 6.4 oz) Temp Readings from Last 3 Encounters: 06/15/21 36.4 ??C (97.5 ??F) (Temporal) 06/01/21 36.2 ??C (97.2 ??F) (Temporal) 05/18/21 36.3 ??C (97.3 ??F) (Temporal) BP Readings from Last 3 Encounters: 06/15/21 109/66 06/01/21 130/71 05/18/21 123/68 Pulse Readings from Last 3 Encounters: 06/15/21 (!) 105 06/01/21 100 05/18/21 96 Body surface area is 2.15 meters squared. Wt Readings from Last 3 Encounters: 06/15/21 93.6 kg (206 lb 4.8 oz) 06/01/21 94.3 kg (208 lb) 05/18/21 97.3 kg (214 lb 6.4 oz) KPS Score ECOG Grade Definition 90-100 [...] selfcare; totally confined to bed or chair Physical Exam Constitutional: General: Not in acute [...] Judgment: Judgment normal. Review of Laboratory Data: 06/15/21- WBC-6.54 Hgb/Hct-12.0/37.3 Plt-280 ANC-5.04 Na-139 K+-3.7 BUN/Cr-12/1.0 Glucose-110 Ca-9.1 Mg-2.1 T. Bili-0.3 AST-17 ALT-12 Alk phos-74 Albumin-3.4 TSH-0.45 Free T4-1.01 05.28.21 Labs from the ED 05/18/21- WBC-5.42 Hgb/Hct-10.4/32.0 [...] 254,000 Review of Imaging Data: 05.28.21 CT I reviewe the images 04/11/21- CT chest- ?? 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
--- OUTSIDE RECORDS SUMMARY | 2023-10-17 04:00 | XMS_ITS | Encounter Summary ---
[place] [address] Care Team Providers Care Revenue Enforcement Agent Name Role Phone Nick Martinez MD Primary Care Provider Reason for Referral * Diagnostic Test (Routine) - Closed Specialty Diagnoses / Procedures Referred By Mariana workman Referred To Contact Radiology Diagnoses Primary malignant 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 Procedures CT Chest w Contrast Ella Diego APRN [facility] DR [place] [address] [facility] [place] [address] Referral ID Status Reason Start Date Expiration Date V isits Requested Visits Authorized [id number] Closed Specialty Service Requested 04/15/2022 10/14/2023 1 1 Reason for Visit * Reason Comments Follow-up Encounter Details Date Type Department Care Team (Late st Contact Info) Description 04/15/2022 1:00 PM EST Office Visit Hematology [place] [address] [facility] [place] [address] Primary malignant neoplasm of right [...] Sign Reading Time Taken Comments Blood Pressure 118/63 04/15/2022 12:30 PM EST Pulse 100 04/15/2022 12:30 PM EST Temperature 35.9 ??C (96.6 ??F) 04/15/2022 1 2:30 PM EST Respiratory Rate 16 04/15/2022 12:3 0 PM EST Oxygen Saturation 98% 04/15/2022 12: 30 PM EST Inhaled Oxygen Concentration - - Weight 116.2 kg (256 lb 2.8 oz) 023 12:30 PM EST Height 179.1 cm (5' 10.51) 04/15/2022 12:30 PM EST Body Mass Index 36.23 04/15/2022 12:30 PM EST documented in this encounter Progress Notes * Ella Diego, AUXILIARY PLANT OPERATOR - 04/15/2022 1:00 PM EST Images from the original note were not included. Hematology & Medical Oncology [address] [phone] Raffy Latif is being seen for cT1cN3 [...] with durvalumab on 04.20.21. CT Chest on 04.15.2022 shows no evidence of disease recurrence. Will begin active surveillance with scans every 3 mos [...] evaluation or have blood work done locally. o Uncontrolled nausea/vomiting o Fever of 100.4 ??F or greater o 3 or more watery stools in 24 hours (do not take Imodium) o Change in breathing or persistent cough o Rash/itching/skin changes o Profound fatigue, change in vision, headache o New, worsening or uncontrolled symptoms - Prompt treatment may be required with high dose steroids. ? Side effects from immunotherapy can be [facility] or chronic, meaning they last for more than 3 months after stopping immunotherapy. - Discussed tobacco cessation and offered a referral to our tobacco cessation here at the cancer center. - Discussed referral to PCP to began regular health maintenance and screenings. Ella Diego, DNP, AUXILIARY PLANT OPERATOR 04/14/2022 Medical Oncology & Hematology [facility] RTC in [address], labs and clinic appointment HPI/Interval History/Subjective: Last seen 02.08.22 No new symptoms since completing durvalumab. Denies any fevers, chills, rashes, arthralgias, headaches, dizziness, abd pain, nausea/vomiting, diarrhea, acute SOB, CP. No new or worsening respiratory symptoms. No hemoptysis or CP. Continues to chew tobacco. Wants cutback. Continues to have a busy family life his 4 children and grandchildren. 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 Does not have a PCP at this time. Reports he has never had cholesterol, PSA, colonoscopy etc. No specific symptoms or concerns to discuss today. Social History/Support Network: Home situation: Lives with in [facility] with Velvet. 35 years. 3 children and plan to adopt another one through foster care. 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 38 Pk [...] chest shows no evidence of disease recurrence. ONCBCN ONCOLOGY (AMB) 08/10/2021 09/14/2021 10/12/2021 11/16/2021 12/14/2021 01/11/2022 02/08/2022 Day, Cycle Day 1, Cycle 6 Day 1, Cycle 7 Day 1, Cycle 8 Day 1, Cycle 9 Day 1, Cycle 10 Day 1, Cycle11 Day 1, Cycle 12 CARBOplatin (Paraplatin) IV - - - - [...] Exam: Wt Readings from Last 3 Encounters: 02/08/22 115.2 kg (254 lb) 01/11/22 113.5 kg (250 lb 3.2 oz) 12/14/21 111.9 kg (246 lb 9.6 oz) Temp Readings from Last 3 Encounters: 02/08/22 36 ??C (96.8 ??F) (Temporal) 01/11/22 36.6 ??C (97.8 ??F) (Temporal) 12/14/21 36.1 ??C (96.9 ??F) (Temporal) BP Readings from Last 3 Encounters: 02/08/22 134/67 01/11/22 121/73 12/14/21 133/71 Pulse Readings from Last 3 Encounters: 02/08/22 92 01/11/22 99 12/14/21 99 There is no height or weight on file to calculate BSA. Wt Readings from Last 3 Encounters: 02/08/22 115.2 kg (254 lb) 01/11/22 113.5 kg (250 lb 3.2 oz) 12/14/21 111.9 kg (246 lb 9.6 oz) KPS Score ECOG Grade [...] Recent Results (from the past 24 hour(s)) Magnesium Result Value Ref Range Magnesium 0.87 0.69 - 1.07 mmol/L Comprehensive metabolic panel (non-fasting) Result Value Ref Range Glucose Lvl 82 65 - 199 mg/dL BUN 19 10 - 20 mg/dL Creatinine 1.29 0.80 - 1.50 mg/dL Sodium 141 135 - 145 mmol/L Potassium 4.4 3.5 - 5.0 mmol/L Chloride 101 98 - 107 mmol/L CO2 29 22 - 31 mmol/L Anion Gap 11 5 - 15 mmol/L Calcium 9.9 8.5 - 10.5 mg/dL Total Protein 7.4 6.1 - 8.0 g/dL Albumin 4.7 3.2 - 5.2 g/dL AST 19 0 - 39 unit/L ALT 22 0 - 55 unit/L Alk Phos 70 40 - 130 unit/L Total Bilirubin 0.4 0.2 - 1.3 mg/dL Estimated GFR 62 >=60 mL/min/1.73 m?? Hemogram Result Value Ref Range WBC 5.8 4.0 - 9.5 x10(3)/mcL RBC 4.64 4.58 - 5.54 x10(6)/mcL Hemoglobin 14.0 13.7 - 16.5 g/dL Hematocrit 39.8 (L) 40.5 - 48.5 % MCV 85.8 82.9 - 93.1 fL MCH 30.2 27.5 - 32.1 pg MCHC 35.2 32.0 - 35.7 g/dL Platelets 204 145 - 357 x10(3)/mcL RDWSD 38.5 36.0 - 45.0 fL RDWCV 12.3 11.4 - 13.8 % MPV 8.9 7.6 - 12.9 fL nRBC % Auto 0.0 % nRBC Abs Auto 0.000 0.000 - 0.000 x10(3)/mcL Differential, Automated Result Value Ref Range Neutrophils % 70.4 % Neutr Abs (ANC) 4.05 1.70 - 6.10 x10(3)/mcL Lymphocytes % 15.8 % Lymphocytes Abs 0.9 0.9 - 3.2 x10(3)/mcL Monocytes % 10.4 % Monocyte Abs 0.6 0.3 - 0.9 x10(3)/mcL Eosinophils % 1.7 % Eosinophils Abs 0.1 0.0 - 0.4 x10(3)/mcL Basophils % 0.3 % Basophils Abs 0.0 0.0 - 0.1 x10(3)/mcL Immature Gran % 1.40 % Yolanda Gran Abs 0.08 (H) 0.00 - 0.04 x10(3)/mcL 02/08/22 WBC [...] phos 72, TSH 3.93, Free t4 0.77 10.. Sodium 139 potassium 3.7 chloride 103 BUN [...] ALT-12 Alk phos-74 Albumin-3.4 TSH-0.45 Free T4-1.01 ..22 Labs from the ED 05/18/21- WBC-5.42 Hgb/Hct-10.4/32.0 [...] platelet count 254,000 Review of Imaging Data: 2.9. CT Chest 1. Unchanged right perihilar opacity [...] AM EDT Office Visit Hematology/Oncology at [address] [phone] [facility] DR [place] [address] 10/17/2023 9:00 AM EDT Infusion Hematology Oncology at [address] [phone] documented as of this encounter Results * CT Chest w Contrast (07/16/2022 8:51 AM EDT) Anatomical Region Laterality Modality Chest Computed Tomogra phy Impressions 07/16/2022 9:23 AM EDT 1. ??Stable posttreatment changes centered in the right hilum. 2. ??Increase in tree-in-bud nodularity in the right upper lobe, most consistent with infectious or inflammatory pneumonitis. Thank you for letting us participate in the care of this patient. ??If you are a health care provider and have any questions regarding this report, please contact the number below. ??For patients who have questions please contact the health care analyst that requested your imaging first. ? Electronically signed by: Jarad Parada DO, [facility] ([phone]), at 07/16/2022 9:23 AM Narrative 07/16/2022 9:23 AM EDT EXAMINATION: CT CHEST W CONTRAST CLINICAL HISTORY: 61-year-old male with non-small cell lung carcinoma. ??Known metastatic disease. ??Assessment of treatment response. ??Stage III C non-small cell right upper lobe lung carcinoma treated with concurrent chemoradiation. ??1 year of immunotherapy. ??Follow-up. ??Restaging. TECHNIQUE: Helical CT of the chest after the intravenous administration of contrast, the patient received 60 mL Omnipaque 350 intravenous contrast. Thin-section reconstructions as well as coronal and sagittal reformatted images were generated. COMPARISON: Comparison is made to multiple prior CT of the chest examinations, the most recent which is dated April 15, 2022. FINDINGS: Melt Superintendant Images: Noncontributory. Pulmonary parenchyma: There is a curvilinear band of volume loss and fibrosis extending from the inferior right hilum into the right lower lobe, right upper lobe, and to a lesser extent right middle lobe. ??In the periphery of the right upper lobe, there is tree-in-bud nodularity, slightly increased as compared to prior. ??There is a stable 6 mm rounded nodule at the left lung apex (series 303, image 12). Airways: The central airways are patent. ??There is no endobronchial or endotracheal lesion. Pleura: There is no pleural effusion or pneumothorax. Lymph nodes: There are no pathologically enlarged lymph nodes. Heart and vasculature: Cardiac size is within normal limits. ??There is physiologic pericardial fluid. ??The aorta is normal in course and caliber. There is a normal three-vessel aortic arch configuration. ??Visualized aspects of the great vessels are widely patent. ??The pulmonary arteries are limited evaluation due to timing of contrast administration. Other mediastinal structures: The mediastinal fat is preserved. ??Limited evaluation of the esophagus is unremarkable. Inferior neck: Visualized structures within the inferior neck are within normal limits. Upper abdomen: The liver is diffusely hypoattenuating, consistent with hepatic steatosis. ??There is a small hiatal hernia. ?? Body wall: There is bilateral gynecomastia. Skeletal structures: There are no suspicious osseous lesions. ??There are mild degenerative changes of the visualized spine. ??There are mild arthritic changes of bilateral glenohumeral joints. Procedure Note Jarad Parada DO - 07/16/2022 EXAMINATION: CT CHEST W CONTRAST CLINICAL HISTORY: 61-year-old male with non-small cell lung carcinoma.Known metastatic disease. Assessment of treatment response. Stage III Cnon-small cell right upper lobe lung carcinoma treated with concurrentchemoradiation. 1 year of immunotherapy. Follow-up. Restaging. TECHNIQUE: Helical CT of the chest after the intravenous administrationof contrast, the patient received 60 mL Omnipaque 350 intravenous contrast. Thin-section reconstructions as well as coronal and sagittal reformattedimages were generated. COMPARISON: Comparison is made to multiple prior CT of the chestexaminations, the most recent which is dated April 15, 2022. FINDINGS: Melt Superintendant Images: Noncontributory. Pulmonary parenchyma: There is a curvilinear band of volume loss andfibrosis extending from the inferior right hilum into the right lower lobe, rightupper lobe, and to a lesser extent right middle lobe. In the periphery of theright upper lobe, there is tree-in-bud nodularity, slightly increased ascompared to prior. There is a stable 6 mm rounded nodule at the left lung apex(series 303, image 12). Airways: The central airways are patent. There is no endobronchial or endotracheal lesion. Pleura: There is no pleural effusion or pneumothorax. Lymph nodes: There are no pathologically enlarged lymph nodes. Heart and vasculature: Cardiac size is within normal limits. There is physiologic pericardial fluid. The aorta is normal in course and caliber. There is a normal three-vessel aortic arch configuration. Visualizedaspects of the great vessels are widely patent. The pulmonary arteries are limited evaluation due to timing of contrast administration. Other mediastinal structures: The mediastinal fat is preserved. Limited evaluation of the esophagus is unremarkable. Inferior neck: Visualized structures within the inferior neck are withinnormal limits. Upper abdomen: The liver is diffusely hypoattenuating, consistent withhepatic steatosis. There is a small hiatal hernia. Body wall: There is bilateral gynecomastia. Skeletal structures: There are no suspicious osseous lesions. There aremild degenerative changes of the visualized spine. There are mild arthriticchanges of bilateral glenohumeral joints. IMPRESSION 1. Stable posttreatment changes centered in the right hilum. 2. Increase in tree-in-bud nodularity in the right upper lobe, mostconsistent with infectious or inflammatory pneumonitis. Thank you for letting us participate in the care of this patient. If youare a health care provider and have any questions regarding this report,please contact the number below. For patients who have questions please contactthe health care analyst that requested your imaging first. Ella Diego APRN IM CT ORDERABLES * Comprehensive metabolic panel (non-fasting) (07/16/2022 7:50 AM EDT) Glucose 102 65 - 199 mg/dL [facility] Comment:Diabetes: >=200 mg/d L plus symptoms Blood Urea Nitrogen 17 10 - 20 mg/dL [facility] Creatinine 1.20 0.80 - 1.50 mg/dL [facility] Sodium 139 135 - 145 mmol/L [facility] Potassium 4.6 3.5 - 5.0 mmol/L [facility] Comment: Please note: ??Patients with WBC >100,000 may have falsely elevated Potassium levels. ??For accurate Potassium quantification in these patients send serum separator tube (gold top) for subsequent determinations. ??Contact the Clinical Chemistry Laboratory if there are any questions. Chloride 103 98 - 107 mmol/L [facility] Carbon Dioxide 28 22 - 31 mmol/L [facility] Anion Gap 8 5 - 15 mmol/L [facility] Calcium 9.6 8.5 - 10.5 mg/dL [facility] Protein, Total 7.8 6.1 - 8.0 g/dL [facility] Albumin 4.5 3.2 - 5.2 g/dL [facility] Aspartate Aminotransferase 22 0 - 39 unit/L [facility] Alanine Aminotransferase 16 0 - 55 unit/L [facility] Alkaline Phosphatase 68 40 - 130 unit/L [facility] Bilirubin, Total 0.5 0.2 - 1.3 mg/dL [facility] Est Glomerular Filtration Rate 68 >=60 mL/min/1. 73 m?? [facility] Comment: This patient's estimated GFR was [...] APRN CHEMISTRY ORDERABL ES Performing Organization Address City/State/[facility] Co de Phone Number [facility] [place] [address] documented in this encounter Visit Diagnoses Diagnosis [...] gland documented in this encounter Care Teams Revenue Enforcement Agent Relationship Specialty Start Date End Date Nick Martinez MD [address] [place] [address] PCP - General Internal Medicine 07/01/18 documented as of this encounter
--- OUTSIDE RECORDS SUMMARY | 2023-10-17 04:00 | XMS_ITS | Encounter Summary ---
Author Organization [facility] [place] [address] Care Team Providers Care Tableau Developer Name Role Phone Nick Martinez MD Primary Care Provider [phone] Encounter Details Date Type Department Care Team (Late st Contact Info) Description 03/18/2022 Orders Only Hematology [place] [address] Boy Tovar MD [facility] [address] [place] [address] Primary malignant neoplasm of right upper lobe [...] AM EDT Office Visit Hematology/Oncology at [address] [phone] Boy Tovar MD [facility] [place] [address] 10/17/2023 9:00 AM EDT Infusion Hematology Oncology at [address] [phone] documented as of this encounter Results * Magnesium (04/15/2022 9:14 AM EST) Magnesium 0.87 0.69 - 1.07 mmol/L [facility] Blood 04/15/2022 9:14 AM EST 04/15/2022 9:21 AM EST Narrative Resulting Agency Comment Spec In Lab Boy Tovar MD CHEMISTRY ORDERABLES [facility] [place] [address] * Comprehensive metabolic panel (non-fasting) (04/15/2022 9:14 AM EST) Glucose 82 65 - 199 mg/dL [facility] Comment:Diabetes: >=200 mg/d L plus symptoms Blood Urea Nitrogen 19 10 - 20 mg/dL [facility] Creatinine 1.29 0.80 - 1.50 mg/dL [facility] Sodium 141 135 - 145 mmol/L [facility] Potassium 4.4 3.5 - 5.0 mmol/L [facility] Comment: Please note: ??Patients with WBC >100,000 may have falsely elevated Potassium levels. ??For accurate Potassium quantification in these patients send serum separator tube (gold top) for subsequent determinations. ??Contact the Clinical Chemistry Laboratory if there are any questions. Chloride 101 98 - 107 mmol/L [facility] Carbon Dioxide 29 22 - 31 mmol/L [facility] Anion Gap 11 5 - 15 mmol/L [facility] Calcium 9.9 8.5 - 10.5 mg/dL [facility] Protein, Total 7.4 6.1 - 8.0 g/dL [facility] Albumin 4.7 3.2 - 5.2 g/dL [facility] Aspartate Aminotransferase 19 0 - 39 unit/L [facility] Alanine Aminotransferase 22 0 - 55 unit/L [facility] Alkaline Phosphatase 70 40 - 130 unit/L [facility] Bilirubin, Total 0.4 0.2 - 1.3 mg/dL [facility] Est Glomerular Filtration Rate 62 >=60 mL/min/1. 73 m?? [facility] Comment: This patient's estimated GFR was [...] In Lab Boy Tovar MD [place] [address] documented in this encounter Visit Diagnoses Diagnosis [...] gland documented in this encounter Care Teams Tableau Developer Relationship Specialty Start Date End Date Nick Martinez MD [address] [place] [id number] PCP - General Internal Medicine 07/01/18 documented as of this encounter
--- OUTSIDE RECORDS SUMMARY | 2023-10-17 04:00 | XMS_ITS | Encounter Summary ---
Author Organization [facility] Address [facility] [place] [address] Care Team Providers Care Netbackup Engineer Name Role Phone Nick Martinez MD Primary Care Provider [phone] Encounter Details Date Type Department Care Team (Late st Contact Info) Description 02/08/2022 1:00 PM EST Office Visit Hematology/Oncology at [address] [phone] Boy Tovar MD [facility] [address] [place] [address] Bisi Hollis APRN [address] [place] [address] DR HEMATOLOGY AND ONCOLOGY [place], [place] [id number] Primary malignant neoplasm of right upper lobe [...] Sign Reading Time Taken Comments Blood Pressure 134/67 02/08/2022 12:55 PM EST Pulse 92 02/08/2022 12:55 PM EST Temperature 36 ??C (96.8 ??F) 02/08/2022 12:55 PM EST Respiratory Rate 18 02/08/2022 12:55 PM EST Oxygen Saturation 98% 02/08/2022 12:55 PM EST Inhaled Oxygen Concentration - - Weight 115.2 kg (254 lb) 02/08/2022 12:55 PM EST Height 177.8 cm (5' 10) 02/08/2022 12:55 PM EST Body Mass Index 36.45 02/08/2022 12:55 PM EST documented in this encounter Progress Notes * Bisi Hollis APRN - 02/08/2022 1:00 PM EST Images from the original note were not included. Hematology & Medical Oncology [address] [phone] Raffy Latif is being seen for cT1cN3 [...] 04.20.21. Most recent CT scan on 12/28 shows no measurable masses, decreased prominence of confluent areas toright mid and upper lobes, and an unchanged (6mm) nodule to the left upper lobe. Plan - Labs and toxicities assessed and acceptable for ongoing treatment. - Final dose of Durvalumab today - RTC in early April with a CT scan done locally. Bisi KrystalJf Hollis 02/08/2022 Medical Oncology & Hematology [facility] HPI/Interval History/Subjective: Last seen 01/11/2022 Breathing is good. Uses inhaler when he needs it- Most often at home. Coughing has improved. No diarrhea. Occasionally constipated. Still chewing tobacco about the same amount - has tried patches without success. Considering gum orlozenges. 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 Busy lifestyle with kids at home (youngest is 4 years old (recently started preschool), 21, oldest 37). No new rashes or skin changes. Energy level is low, but he thinks that's related to poor sleep. Sleep quality is at baseline. Denies headache, dizziness, loss of balance. No [...] switching to diet soda, and increasing exercise. Creat slightly higher this week. He reports he had more alcohol this weekend than normal, and hasn't drank much water over the last few days. No new medications. No fevers, no signs of infection. Social History/Support Network: Home situation: Lives with in [facility] with Velvet. 35 years. 3 children and plan to adopt another one through foster care. 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 38 Pk [...] 04.20.21 Started consolidative durvalumab ONCBCN ONCOLOGY (AMB) 07/13/2021 08/10/2021 09/14/2021 10/12/2021 11/16/2021 12/14/2021 01/11/2022 Day, Cycle Day 1, Cycle 5 Day 1, Cycle 6 Day 1, Cycle 7 Day 1, Cycle 8 Day 1, Cycle 9 Day 1, Cycle 10 Day 1, Cycle 11 CARBOplatin (Paraplatin) IV - - - - [...] Encounters: 02/08/22 92 01/11/22 99 12/14/21 99 Body surface area is 2.39 meters squared. Wt Readings from Last 3 Encounters: 02/08/22 [...] totally confined to bed or chair BP 134/67 (Patient Position: Sitting) Pulse 92 Temp 36 ??C (96.8 ??F) (Temporal) Resp 18 Ht177.8 cm (5' 10) Wt 115.2 kg (254 lb) SpO2 98% BMI 36.45 kg/m?? Physical Exam Physical Exam Constitutional: General: [...] Judgment: Judgment normal. Review of Laboratory Data: 02/08/22 WBC 6.49, H/H 14/39.4, plt 200, [...] 8:30 AM EDT Office Visit Hematology/Oncology at [address] [phone] Boy Tovar MD [facility] [address] [place] [address] 10/17/2023 9:00 AM EDT Infusion Hematology Oncology at [address] [phone] documented as of this encounter Visit Diagnoses [...] gland documented in this encounter Care Teams Netbackup Engineer Relationship Specialty Start Date End Date Nick Martinez MD [address] [place] [id number] PCP - General Internal Medicine 07/01/18 documented as of this encounter
--- OUTSIDE RECORDS SUMMARY | 2023-10-17 04:00 | XMS_ITS | Encounter Summary ---
Author Organization [facility] [place] [address] Care Team Providers Care Button Maker Name Role Phone Nick Martinez MD Primary Care Provider [phone] Reason for Referral * Diagnostic Test (Routine) - Closed Specialty Diagnoses / Procedures Referred By Mariana workman Referred To Contact Radiology Diagnoses Primary malignant 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 Procedures CT Chest w Contrast Ella Diego APRN [facility] [place] [address] [facility] [place] [address] Referral ID Status Reason Start Date Expiration Date V isits Requested Visits Authorized [id number] Closed Specialty Service Requested 10/12/2022 12/10/2022 1 1 Reason for Visit * Reason Comments Follow-up Encounter Details Date Type Department Care Team (Late st Contact Info) Description 07/16/2022 10:30 AM EDT Office Visit H[place]ology [place] [address] Boy Tovar MD [facility] [place] [address] Ella Diego APRN [facility] [address] HEMATOLOGY [place] [address] Primary malignant neoplasm of right upper lobe [...] Sign Reading Time Taken Comments Blood Pressure 117/79 07/16/2022 10:29 AM EDT Pulse 98 07/16/2022 10:29 AM EDT Temperature 36.4 ??C (97.5 ??F) 07/16/2022 10:29 AM E DT Respiratory Rate 18 07/16/2022 10:29 AM EDT Oxygen Saturation 97% 07/16/2022 10:29 AM EDT Inhaled Oxygen Concentration - - Weight 116.8 kg (257 lb 8 oz) 07/16/2022 10:29 A M EDT Height 179.2 cm (5' 10.55) 07/16/2022 10:29 AM EDT Body Mass Index 36.37 07/16/2022 10:29 AM EDT documented in this encounter Progress Notes * Ella Diego, LVN - 07/16/2022 10:30 AM EDT Images from the original note were not included. Hematology & Medical Oncology [address] [address] Raffy Latif is being seen for cT1cN3 [...] with durvalumab on 04.20.21. CT Chest on 07.16.2022 shows no obvious evidence of disease recurrence. Slightly increased nodularity in R upper lobe most consistent with inflammation. Pt knows to call with new respiratory symptoms.Will continue active surveillance with scans every 3 [...] ? Side effects from immunotherapy can be termite control representative or chronic, meaning they last for more than 3 months after stopping immunotherapy. - Discussed tobacco cessation and offered a referral to our tobacco cessation here at the cancer center. - Discussed need to see PCP to began regular health maintenance and screenings, overdue to colo. Ella Diego, DNP, LVN 07/16/2022 Medical Oncology & Hematology [facility] RTC in [address], labs and clinic appointment HPI/Interval History/Subjective: Last seen 07.16.2022 No new respiratory symptoms today. Does feels cough is a little but more frequent. Occurs with feelings of post nasal drip. Once he is able to cough up sputum, coughing stops. No CP, SOB, worsening LANDEROS, hemoptysis, no fever or chills. Is also getting over a cold. No new symptoms since completing durvalumab. Denies any fevers, chills, rashes, arthralgias, headaches, dizziness, abd pain, nausea/vomiting, diarrhea, acute SOB, CP. Continues to have a busy family life his 4 children and grandchildren. 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 Does not have a PCP at this time. Reports he has never had cholesterol, PSA, colonoscopy etc. Encouraged pt setting this up, discussed that I could put in the order for the colo. Pt refused at this time. No specific symptoms or concerns to discuss today. Social History/Support Network: Home situation: Lives with in [facility] with Velvet. 35 years. 3 children and plan to adopt another one through foster care. 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 38 Pk [...] no obvious evidence of disease recurrence. IMPRESSION ?? 1. Stable posttreatment changes centered in the [...] Exam: Wt Readings from Last 3 Encounters: 07/16/22 116.8 kg (257 lb 8 oz) 04/15/22 116.2 kg (256 lb 2.8 oz) 02/08/22 115.2 kg (254 lb) Temp Readings from Last 3 Encounters: 07/16/22 36.4 ??C (97.5 ??F) (Temporal) 04/15/22 35.9 ??C (96.6 ??F) (Temporal) 02/08/22 36 ??C (96.8 ??F) (Temporal) BP Readings from Last 3 Encounters: 07/16/22 117/79 04/15/22 118/63 02/08/22 134/67 Pulse Readings from Last 3 Encounters: 07/16/22 98 04/15/22 100 02/08/22 92 Body surface area is 2.41 meters squared. Wt Readings from Last 3 Encounters: 07/16/22 116.8 kg (257 lb 8 oz) 04/15/22 116.2 kg (256 lb 2.8 oz) 02/08/22 115.2 kg (254 lb) KPS Score ECOG Grade Definition 90-100 [...] totally confined to bed or chair BP 117/79 (Patient Position: Sitting) Pulse 98 Temp 36.4 ??C (97.5 ??F) (Temporal) Resp 18 Ht 179.2 cm (5' 10.55) Wt 116.8 kg (257 lb 8 oz) SpO2 97% BMI 36.37 kg/m?? Physical Exam Constitutional: General: Not in [...] Lvl 102 65 - 199 mg/dL BUN 17 10 - 20 mg/dL Creatinine 1.20 0.80 - 1.50 mg/dL Sodium 139 135 - 145 mmol/L Potassium 4.6 3.5 - 5.0 mmol/L Chloride 103 98 - 107 mmol/L CO2 28 22 - 31 mmol/L Anion Gap 8 5 - 15 mmol/L Calcium 9.6 8.5 - 10.5 mg/dL Total Protein 7.8 6.1 - 8.0 g/dL Albumin 4.5 3.2 - 5.2 g/dL AST 22 0 - 39 unit/L ALT 16 0 - 55 unit/L Alk Phos 68 40 - 130 unit/L Total Bilirubin 0.5 0.2 - 1.3 mg/dL Estimated GFR 68 >=60 mL/min/1.73 m?? Hemogram Result Value Ref Range WBC 7.2 4.0 - 9.5 x10(3)/mcL RBC 4.78 4.58 - 5.54 x10(6)/mcL Hemoglobin 14.7 13.7 - 16.5 g/dL Hematocrit 41.7 40.5 - 48.5 % MCV 87.2 82.9 - 93.1 fL MCH 30.8 27.5 - 32.1 pg MCHC 35.3 32.0 - 35.7 g/dL Platelets 202 145 - 357 x10(3)/mcL RDWSD 40.0 36.0 - 45.0 fL RDWCV 12.8 11.4 - 13.8 % MPV 8.6 7.6 - 12.9 fL nRBC % Auto 0.0 % nRBC Abs Auto 0.000 0.000 - 0.000 x10(3)/mcL Differential, Automated Result Value Ref Range Neutrophils % 75.7 % Neutr Abs (ANC) 5.46 1.70 - 6.10 x10(3)/mcL Lymphocytes % 11.2 % Lymphocytes Abs 0.8 (L) 0.9 - 3.2 x10(3)/mcL Monocytes % 9.0 % Monocyte Abs 0.6 0.3 - 0.9 x10(3)/mcL Eosinophils % 1.8 % Eosinophils Abs 0.1 0.0 - 0.4 x10(3)/mcL Basophils % 0.4 % Basophils Abs 0.0 0.0 - 0.1 x10(3)/mcL Immature Gran % 1.90 % Yolanda Gran Abs 0.14 (H) 0.00 - 0.04 x10(3)/mcL 02/08/22 WBC [...] platelet count 254,000 Review of Imaging Data: 04.15.22 CT Chest 1. Unchanged right perihilar opacity [...] 8:30 AM EDT Office Visit Hematology/Oncology at [address] [phone] Boy Tovar MD [facility] [place] [address] 10/17/2023 9:00 AM EDT Infusion Hematology Oncology at [address] [phone] Scheduled Orders Name Type Priority Associated Diagnoses Orde r Schedule CBC (with Diff) Lab STAT Primary malignant 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 Expected: 10/16/2022 (Approximate), Expires: 07/15/2023 Comprehensive metabolic panel (non-fasting) Lab STAT Primary malignant 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 Expected: 10/16/2022 (Approximate), Expires: 07/15/2023 documented as of this encounter Results * [...] who have questions please contact the health healthcare associate that requested your imaging first. ? Electronically signed by: Jose Roberto Rogers MD, [facility] [place] ??([phone]), at 11/04/2022 11:08 AM Narrative 11/04/2022 11:08 [...] patients who have questions please contactthe health healthcare associate that requested your imaging first. Electronically signed by: Jose Roberto Rogers MD, [facility]([phone]), at 11/04/2022 11:08 AM Ella Diego APRN IMG CT ORDERABLES documented in this encounter Visit [...] gland documented in this encounter Care Teams Button Maker Relationship Specialty Start Date End Date Nick Martinez MD [address] [place] [id number] PCP - General Internal Medicine 07/01/18 documented as of this encounter
--- OUTSIDE RECORDS SUMMARY | 2023-10-17 04:00 | XMS_ITS | Encounter Summary ---
Author Organization [facility] [place] [address] Care Team Providers Care Traffic Signal Mechanic Name Role Phone Nick Martinez MD Primary Care Provider Reason for Referral * Diagnostic Test (Routine) - Closed Specialty Diagnoses / Procedures Referred By Contac t Referred To Contact Radiology Diagnoses Primary malignant 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 Procedures CT Chest w Contrast Ella Diego APRN [facility] [place] [address] [facility] [place] [address] Referral ID Status Reason Start Date Expiration Date V isits Requested Visits Authorized [id number] Closed Specialty Service Requested 04/15/2022 10/14/2023 1 1 Reason for Visit * Diagnostic Test (Routine) - Closed Specialty Diagnoses / Procedures Referred By Contmilagro t Referred To Contact Radiology Diagnoses Primary malignant 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 Procedures CT Chest w Contrast Ella Diego APRN [facility] [place] [address] [facility] [place] [address] Referral ID Status Reason Start Date Expiration Date V isits Requested Visits Authorized [id number] Closed Specialty Service Requested 04/15/2022 10/14/2023 1 1 Encounter Details Date Type Department Care Team (Late st Contact Info) Description 07/16/2022 7:57 AM EDT - 07/16/2022 11:59 PM EDT Hospital [place] [phone] Ella Diego APRN [facility] [place] [address] Primary malignant neoplasm of right upper lobe [...] AM EDT Office Visit Hematology/Oncology at [address] [phone] Boy Tovar MD [facility] [place] [address] 10/17/2023 9:00 AM EDT Infusion Hematology Oncology at [address] [phone] documented as of this encounter Procedures Procedure Name Priority Date/Time Associated Diagnosis Comments CT CHEST W CONTRAST Routine 07/16/2022 8 :51 AM EDT Primary malignant neoplasm of right [...] have questions please contact the health child daycare worker that requested your imaging first. ? Electronically signed by: Jarad Parada DO, [facility] ([phone]), at 07/16/2022 9:23 AM Narrative 07/16/2022 9:23 [...] which is dated April 15, 2022. FINDINGS: Chemical Processing Technician Images: Noncontributory. Pulmonary parenchyma: There is a [...] of bilateral glenohumeral joints. Procedure Note Jarad Parada, - 07/16/2022 EXAMINATION: CT CHEST W CONTRAST [...] which is dated April 15, 2022. FINDINGS: Chemical Processing Technician Images: Noncontributory. Pulmonary parenchyma: There is a [...] who have questions please contactthe health child daycare worker that requested your imaging first. Electronically signed by: Jarad Parada DO, [facility]([phone]), at 07/16/2022 9:23 AM Ella Diego APRN [facility] ORDERABLES documented in this encounter Visit [...] Intravenous, ONCE PRN, 1 dose, Starting on Tue07/16/22 at 0851, Until Tue07/16/22 at 0850, Per Protocol, Warning Vesicant/Irritant Medication , Radiology Contrast, Routine Given 07/16/2022 8:50 AM EDT 60 mLs documented in this encounter Care Teams Traffic Signal Mechanic Relationship Specialty Start Date End Date Nick Martinez MD [address] [place] [address] PCP - General Internal Medicine 07/01/18 documented as of this encounter
--- OUTSIDE RECORDS SUMMARY | 2023-10-17 04:00 | XMS_ITS | Encounter Summary ---
Author Organization [facility] [place] [address] Care Team Providers Care Machine Featheredger And Reducer Name Role Phone Nick Martinez MD Primary Care Provider [phone] Encounter Details Date Type Department Care Team (Late st Contact Info) Description 08/10/2021 2:30 PM EDT Office Visit Hematology/Oncology at [address] [phone] [facility] [address] [place] [address] [facility] [address] [place] [address] Primary malignant neoplasm of right upper lobe [...] Reading Time Taken Comments Blood Pressure 109/76 08/10/2021 2:20 PM EDT Pulse 99 08/10/2021 2:20 PM EDT Temperature 36.3 ??C (97.3 ??F) 08/10/2021 2:20 PM ED T Respiratory Rate 18 08/10/2021 2:20 PM EDT Oxygen Saturation 98% 08/10/2021 2:20 PM EDT Inhaled Oxygen Concentration - - Weight 102.1 kg (225 lb) 08/10/2021 2:20 PM EDT Height 177.8 cm (5' 10) 08/10/2021 2:20 PM EDT Body Mass Index 32.28 08/10/2021 2:20 PM EDT documented in this encounter Progress Notes * Boy Tovar MD - 08/10/2021 2:30 PM EDT Images from the original note were not included. Hematology & Medical Oncology [address] [address] Raffy Latif is being seen for cT1cN3 [...] and acceptable for ongoing treatment. - Cough do not think this is pneumonitis but will keep an eye on it. - RTC in 5 weeks due to holiday - [place] in [place] with CT w/o contrast [facility] so he doesn't have to take an extra day off from work Boy Tovar MD, MS 08/10/2021 Medical Oncology & Hematology [facility] HPI/Interval History/Subjective: Last seen 07/13/2021 Still with coughing spells. Clear phlegm. 4-6x per day but able sleep without coughing. No fevers. No sinus or hsx of allergies. Tessalon doesn't seem to help. Chews tobacco occasionally Feels better and better. Breathing is quite good aside from when he is coughing. Can go up flight of stairs Temp extremes doimpat him. 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 No new rashes, changes in breathing, new cough, diarrhea. Social History/Support Network: Home situation: Lives with in [facility] with Velvet. 35 years. 3 children and plan to adopt another one through foster care. 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 38 Pk [...] 04.20.21 Started consolidative durvalumab ONCBCN ONCOLOGY (AMB) 03/16/2021 03/23/2021 04/06/2021 04/20/2021 05/18/2021 06/15/2021 07/13/2021 Day, Cycle Day 15, Cycle 1 Day 22, Cycle 1 Day 29, Cycle 1 Day 1, Cycle 1 Day 1, Cycle 2 Day 1, Cycle 3 Day 1, Cycle 5 CARBOplatin (Paraplatin) IV 252 mg 252 mg 252 mg - - - - durvalumab 50 mg/mL (Imfinzi) IV - - - 1,500 mg 1,500 mg 1,500 mg 1,500 mg PACLitaxeL (Taxol) IV 50 mg/m2/dose = 118 mg 50 mg/m2/dose = 118 mg 50 mg/m2/dose = 118 mg - - - - Patient Active Problem [...] Exam: Wt Readings from Last 3 Encounters: 08/10/21 102.1 kg (225 lb) 07/13/21 99.4 kg (219 lb 3.2 oz) 06/15/21 93.6 kg (206 lb 4.8 oz) Temp Readings from Last 3 Encounters: 08/10/21 36.3 ??C (97.3 ??F) (Temporal) 07/13/21 36.7 ??C (98.1 ??F) (Temporal) 06/15/21 36.4 ??C (97.5 ??F) (Temporal) BP Readings from Last 3 Encounters: 08/10/21 109/76 07/13/21 110/70 06/15/21 109/66 Pulse Readings from Last 3 Encounters: 08/10/21 99 07/13/21 89 06/15/21 (!) 105 Body surface area is 2.25 meters squared. Wt Readings from Last 3 Encounters: 08/10/21 102.1 kg (225 lb) 07/13/21 99.4 kg (219 lb 3.2 oz) 06/15/21 93.6 kg (206 lb 4.8 oz) KPS Score ECOG Grade Definition 90-100 [...] selfcare; totally confined to bed or chair Patient Vitals for the past 24 hrs: Temp Pulse Resp BP SpO2 08/10/21 1420 36.3 ??C (97.3 ??F) 99 18 109/76 98 % Physical Exam Constitutional: General: Not in acute [...] Judgment: Judgment normal. Review of Laboratory Data: 6.6.22 Sodium 140 potassium 4.4 chloride 105 [...] 8:30 AM EDT Office Visit Hematology/Oncology at [address] [phone] [facility] [address] [place] [address] 10/17/2023 9:00 AM EDT Infusion Hematology Oncology at [address] [phone] documented as of this encounter [...] gland documented in this encounter Care Teams Machine Featheredger And Reducer Relationship Specialty Start Date End Date Nick Martinez MD [address] [place] [address] PCP - General Internal Medicine 07/01/18 documented as of this encounter
--- OUTSIDE RECORDS SUMMARY | 2023-10-17 04:00 | XMS_ITS | Encounter Summary ---
Author Organization [facility] [place] [address] Care Team Providers Care Press Machine Feeder Name Role Phone Nick Martinez MD Primary Care Provider [phone] Encounter Details Date Type Department Care Team (Late st Contact Info) Description 07/13/2021 1:30 PM EDT Office Visit Hematology/Oncology at [address] [phone] Rinku Turner MD [facility] DR HEMATOLOGY [place] [address] Linda Zepeda, RN Primary malignant neoplasm of right upper lobe [...] Sign Reading Time Taken Comments Blood Pressure 110/70 07/13/2021 1:20 PM EDT Pulse 89 07/13/2021 1:20 PM EDT Temperature 36.7 ??C (98.1 ??F) 07/13/2021 1:20 PM ED T Respiratory Rate 18 07/13/2021 1:20 PM EDT Oxygen Saturation 98% 07/13/2021 1:20 PM EDT Inhaled Oxygen Concentration - - Weight 99.4 kg (219 lb 3.2 oz) 07/13/2021 1:20 P M EDT Height 177.8 cm (5' 10) 07/13/2021 1:20 PM EDT Body Mass Index 31.45 07/13/2021 1:20 PM EDT documented in this encounter Progress Notes * Rinku Turner MD - 07/13/2021 1:30 PM EDT Images from the original note were not included. Hematology & Medical Oncology [address] [phone] Raffy Latif is being seen for cT1cN3 [...] but will keep an eye on it. TAessalon perles for now but if worsens can reimage - RTC in 4 weeks - [facility] in September Rinku Turner MD, MS 07/13/2021 Medical Oncology & Hematology [facility] HPI/Interval History/Subjective: Last seen 06/15/2021 Chews tobacco occasionally Feels better and better. Breathing is quite good. 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 Hacks up some phlegm. No tickle in his throat. No allergies. Some sl nose running but no hx of allergies. Not winded or having issues. Hasn't tried the tessalon perles. Occurs most of the time duringthe day. 3-4x per day and varies. Hacks up clear phlegm and stops Social History/Support Network: Home situation: Lives with in [facility] with Velvet. 35 years. 3 children and plan to adopt another one through foster care. 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 38 Pk [...] IIIB (cT1c, cN3, cM0) - Signed by Rinku Turner MD on 02/06/2021 Presentation: Hx of lung [...] 04.20.21 Started consolidative durvalumab ONCBCN ONCOLOGY (AMB) 03/09/2021 03/16/2021 03/23/2021 04/06/2021 04/20/2021 05/18/2021 06/15/2021 Day, Cycle Day 8, Cycle 1 Day 15, Cycle 1 Day 22, Cycle 1 Day 29, Cycle 1 Day 1, Cycle 1 Day 1, Cycle 2 Day 1, Cycle 3 CARBOplatin (Paraplatin) IV 252 mg 252 mg 252 mg 252 mg - - - durvalumab 50 mg/mL (Imfinzi) IV - - - - 1,500 mg 1,500 mg 1,500 mg PACLitaxeL (Taxol) IV 50 mg/m2/dose = 118 mg 50 mg/m2/dose = 118 mg 50 mg/m2/dose = 118 mg 50 mg/m2/dose = 118 mg - - - Patient Active Problem List [...] Exam: Wt Readings from Last 3 Encounters: 07/13/21 99.4 kg (219 lb 3.2 oz) 06/15/21 93.6 kg (206 lb 4.8 oz) 06/01/21 94.3 kg (208 lb) Temp Readings from Last 3 Encounters: 07/13/21 36.7 ??C (98.1 ??F) (Temporal) 06/15/21 36.4 ??C (97.5 ??F) (Temporal) 06/01/21 36.2 ??C (97.2 ??F) (Temporal) BP Readings from Last 3 Encounters: 07/13/21 110/70 06/15/21 109/66 06/01/21 130/71 Pulse Readings from Last 3 Encounters: 07/13/21 89 06/15/21 (!) 105 06/01/21 100 Body surface area is 2.22 meters squared. Wt Readings from Last 3 Encounters: 07/13/21 99.4 kg (219 lb 3.2 oz) 06/15/21 93.6 kg (206 lb 4.8 oz) 06/01/21 94.3 kg (208 lb) KPS Score ECOG Grade Definition 90-100 [...] 24 hrs: Temp Pulse Resp BP SpO2 07/13/21 1320 36.7 ??C (98.1 ??F) 89 18 110/70 98 % Physical Exam Constitutional: General: Not [...] Judgment: Judgment normal. Review of Laboratory Data: 07.13.21 White blood cell count 6.77 hemoglobin 13.3 [...] ALT-12 Alk phos-74 Albumin-3.4 TSH-0.45 Free T4-1.01 05.28. Labs from the ED 05/18/21- WBC-5.42 Hgb/Hct-10.4/32.0 [...] % Expression: 40-60% documented in this encounter Miscellaneous Notes * Addendum Note - Rinku Turner MD - 07/13/2021 1:30 PM EDTAddended by: RINKU TURNER on: 07/13/2021 02:51 PM Modules accepted: Orders documented in this encounter Plan of Treatment Upcoming Encounters Date Type Department Care Team (Late st Contact Info) Description 10/17/2023 8:30 AM EDT Office Visit Hematology/Oncology at [address] [phone] Rinku Turner MD [facility] DR HEMATOLOGY [place] [address] 10/17/2023 9:00 AM EDT Infusion Hematology Oncology at [address] [phone] documented as of this encounter Visit Diagnoses [...] gland documented in this encounter Care Teams Press Machine Feeder Relationship Specialty Start Date End Date Nick Martinez MD [address] [place] [address] PCP - General Internal Medicine 07/01/18 documented as of this encounter
--- OUTSIDE RECORDS SUMMARY | 2023-10-17 04:00 | XMS_ITS | Encounter Summary ---
Author Organization [facility] [place] [address] Care Team Providers Care Water Main Pipe Layer Name Role Phone Nick Martinez MD Primary Care Provider [phone] Encounter Details Date Type Department Care Team (Latest Contact Info) Description 02/08/2022 Travel Social History Tobacco Use Types Packs/Day [...] slept in a snf (including now)? No 02/04/2021 Sex and Gender Information Value Date Recorded Sex Assigned at Not on file Gender Identity Not on file Sexual Orientation Not on file documented as of this encounter Plan of Treatment Upcoming Encounters Date Type Department Care Team (Late st Contact Info) Description 10/17/2023 8:30 AM EDT Office Visit Hematology/Oncology at [address] [phone] Boy Tovar MD [facility] DR [place] [address] 10/17/2023 9:00 AM EDT Infusion Hematology Oncology at [address] [phone] documented as of this encounter Visit Diagnoses Not on filedocumented in this encounter Care Teams Water Main Pipe Layer Relationship Specialty Start Date End Date Nick Martinez MD [address] [place] [address] PCP - General Internal Medicine 07/01/18 documented as of this encounter
--- OUTSIDE RECORDS SUMMARY | 2023-10-17 04:00 | XMS_ITS | Encounter Summary ---
Author Organization [facility] [place] [address] Care Team Providers Care Dynamics Ax Solution Architect Name Role Phone Nick Martinez MD Primary Care Provider [phone] Encounter Details Date Type Department Care Team (Late st Contact Info) Description 10/15/2021 Telephone Hematology/Oncology at [address] [phone] Laly Larose, RN Social History [...] slept in a intermediate (including now)? No 02/04/2021 Sex and Gender Information Value Date Recorded Sex Assigned at Not on file Gender Identity Not on file Sexual Orientation Not on file documented as of this encounter Miscellaneous Notes * Telephone Encounter - Laly Larose RN - 10/15/2021 4:54 PM EDT Images from the original note were not included. Saad Saleem Alexander D, MD; P [facility] Hem Onc Nurse Good Afternoon. I received a call back from the patient. I am told they will not have new insurance card until on or around 11/05/21. I informed them that the pre auth process can tale up to 15 days And obviously we can't start without the member ID/group# etc. They will provide the info to us as soon as they have it. They will call HR @ their employer to attempt to get info sooner. I will keep them and yourselves posted with any new info. Have a great day! Thanks! -Clif Saleem - KIRSTY - Nurse Pre Auth Rep documented in this encounter Plan of Treatment Upcoming Encounters Date Type Department Care Team (Late st Contact Info) Description 10/17/2023 8:30 AM EDT Office Visit Hematology/Oncology at [address] [phone] Boy Tovar MD [facility] [place] [address] 10/17/2023 9:00 AM EDT Infusion Hematology Oncology at [address] [phone] documented as of this encounter Visit Diagnoses Not on filedocumented in this encounter Care Teams Dynamics Ax Solution Architect Relationship Specialty Start Date End Date Nick Martinez MD [address] [place] [address] PCP - General Internal Medicine 07/01/18 documented as of this encounter
--- OUTSIDE RECORDS SUMMARY | 2023-10-17 04:01 | XMS_ITS | Encounter Summary ---
Author Organization [facility] [place] [address] Care Team Providers Care Generator Operator Name Role Phone Nick Martinez MD Primary Care Provider Encounter Details Date Type Department Care Team (Late st Contact Info) Description 04/15/2021 4:30 PM EST Office Visit Radiation Oncology at [address] [phone] Parker Ross MD [facility] [place] [address] Primary malignant neoplasm of right upper lobe [...] Sign Reading Time Taken Comments Blood Pressure 102/60 04/15/2021 4:34 PM EST Pulse 65 04/15/2021 4:34 PM EST Temperature 37 ??C (98.6 ??F) 04/15/2021 4:3 4 PM EST Respiratory Rate - - Oxygen Saturation 99% 04/15/2021 4:3 4 PM EST Inhaled Oxygen Concentration - - Weight 99.6 kg (219 lb 9.6 oz) 04/15/19 4:34 PM EST with shoes Height - - Body Mass Index 31.05 04/13/2021 8:16 AM EST documented in this encounter Progress Notes * Parker Ross MD - 04/15/2021 4:30 PM EST FOLLOW UP VISIT NOTE Raffy Latif is a 60 y.o. male with cT1cN3 (Stage III-C) non-small cell lung cancer (adenocarcinoma). Definitive chemoradiotherapy completed 04/08/21. Treatment dose: 60 Gy in 30 fractions. Concomitant Therapy: Y ONC BCA CHEMO (AMB) 03/02/2021 03/09/2021 03/16/2021 Day, Cycle Day 1, Cycle 1 Day 8, Cycle 1 Day 15, Cycle 1 CARBOplatin (Paraplatin) IV 252 mg 252 mg 252 mg PACLitaxeL (Taxol) IV 50 mg/m2/dose 50 mg/m2/dose 50 mg/m2/dose ONC BCA CHEMO (AMB) 03/23/2021 04/06/2021 Day, Cycle Day 22, Cycle 1 Day 29, Cycle 1 CARBOplatin (Paraplatin) IV 252 mg 252 mg PACLitaxeL (Taxol) IV 50 mg/m2/dose 50 mg/m2/dose Evaluation of Port Verification Films: PORT films have been reviewed, please see ETHAN for details. Changes in medical condition Pain: pain is present in right mid-chest, not constant, worse with eating, up to an 8-10. He has stopped the Fentanyl 25 mcg. It is slightly better. He finds the BMX helpful, is using the carafate, oxycodone 5 mg QID prn. Dyspnea/Cough: no issues with dyspnea, occasional coughing. GI: -N/V: minimal nausea unless he takes 5 mg oxycodone, has compazine -Bowels: no issues Esophagitis: using BMX / Carafate. Pain control as per above. Smoking: chewing tobacco down on nicotine Other: Nutrition Assessment: Weight : 113 kg initial Change: 103.1 = > 99.6 kg Objective: Vitals: 04/15/21 1634 BP: 102/60 Patient Position: Sitting Pulse: 65 Temp: 37 ??C (98.6 ??F) SpO2: 99% Weight: 99.6 kg (219 lb 9.6 oz) SKIN: no skin erythema LUNGS: CTAB no w/r/r Assessment: Continued esophagitis,weight decreased, symptoms controlled with BMX / carafate / opioids. CTCAE TOXICITY GRADES (see below for mcmahon): Site Grade Skin 0 Cough 1 Dyspnea 0 Esophagitis 2 TREATMENT RESPONSE: No change Plan: ?? Skin: Jeans cream QD ?? Pain control: ?? Oxycodone 5 mg prn ?? Esophagitis: ?? Carafate ?? BMX prn ?? Cough/Dyspnea: No intervention needed at this time ?? Alimentation: followed by vendor management specialist, weight loss , all by mouth. Discussed need to increase caloric intake. ?? FU: to see him after completion of immunotherapy. CTCAE v4.03 scales for reference Skin 0 1 2 3 4 No change from baseline Faint erythema or dry desquamation Moderate to brisk erythema; patchy moistdesquamation mostly confined to skin folds & creases; moderate edema Moist desquamation in areas other than skin folds and creases; bleeding induced by minor trauma or abrasion Life threatening consequences; skin necrosis or ulceration of full thickness dermis; spontaneous bleeding; skin graft indicated Cough: 0 1 2 3 4 No change from baseline Mild sx; non-prescription intervention indicated Moderate sx, medical intervention indicated; limiting instrumental ADL Severe symptoms; limiting self care ADL NA Dyspnea: 0 1 2 3 4 No change from baseline SOB with moderate exertion SOB with minimal exertion; limiting instrumentalADLs SOB @ rest; limiting self care ADL Life threatening consequences; urgent intervention indicated Esophagitis: 0 1 2 3 4 No change from baseline Asymptomatic; clinical or diagnostic observations only; intervention not indicated Symptomatic; altered eating/swallowing; oral supplements indicated Severely altered swallowing/eating; tube feeding, TPN or hospitalization indicated Life threatening consequences; urgent intervention indicated documented in this encounter Plan of Treatment Upcoming Encounters Date Type Department Care Team (Late st Contact Info) Description 10/17/2023 8:30 AM EDT Office Visit Hematology/Oncology at [address] [phone] Boy Tovar MD [facility] DR HEMATOLOGY [place] [address] 10/17/2023 9:00 AM EDT Infusion Hematology Oncology at [address] [phone] documented as of this encounter Visit Diagnoses [...] gland documented in this encounter Care Teams Generator Operator Relationship Specialty Start Date End Date Nick Martinez MD [address] [place] [id number] PCP - General Internal Medicine 07/01/18 documented as of this encounter
--- OUTSIDE RECORDS SUMMARY | 2023-10-17 04:01 | XMS_ITS | Encounter Summary ---
Author Organization [facility] [place] [address] Care Team Providers Care Claims Manager Name Role Phone Nick Martinez MD Primary Care Provider [phone] Encounter Details Date Type Department Care Team (Late st Contact Info) Description 04/13/2021 8:30 AM EST Office Visit Hematology/Oncology at [address] [phone] Boy Tovar MD [facility] DR H[place]AT[place] [address] Linda Zepeda, RN Primary malignant neoplasm of [...] Sign Reading Time Taken Comments Blood Pressure 106/64 04/13/2021 8:16 AM EST Pulse 103 04/13/2021 8:16 AM EST Temperature 36.8 ??C (98.2 ??F) 04/13/2021 8:16 AM ES T Respiratory Rate 18 04/13/2021 8:16 AM EST Oxygen Saturation 98% 04/13/2021 8:16 AM EST Inhaled Oxygen Concentration - - Weight 101.1 kg (222 lb 12.8 oz) 04/13/2021 8:16 AM EST Height 179.1 cm (5' 10.51) 04/13/2021 8:[address] Body Mass Index 31.51 04/13/2021 8:16 AM EST documented in this encounter Progress Notes * Linda Zepeda, WELDER [employer]TER [employer] - 04/13/2021 8:30 AM EST Images from the original note were not included. Hematology & Medical Oncology [address] [phone] Raffy Latif is being seen for cT1cN3 [...] with insufficient quantity for further molecular's oranalyses. 03/02/21-Antitumor Therapy Schedule: Carboplatin AUC 2 IV over 30 minutes with Paclitaxel 50mg/m2 IV over 60 minutes IV weekly while on radiation for 6 weeks. 04/20/21- Durvalumab Raffy completed his concurrent chemotherapy and radiation on 04/08/21. He is feeling well today. Still has some fatigue and discomfort when swallowing. We reviewed CT scan done on 04/11/21 which does show response to treatment and no new findings. Raffy tested positive for COVID on 03/23. He did not have any fevers but had flu like symptoms. He is vaccinated. He is feeling fine today. He will begin consolidative Durvalumab in one week. We reviewed how immunotherapy works, side effects and symptom management. Reviewed when he should call clinic. He was given written [facility] drug information sheet. # Esophageal Pain- he is on a fentanyl patch and using oxycodone 5mg for breakthrough pain. He is still having the pain in his right chest but it is improving. He will stop the fentanyl patchtomorrow and continue oxycodone only as needed. He uses the BMX as needed and takes the carafate . He is planning on returning to work next week. Plan: - Will begin consolidative Durvalumab IV in one week. -Tobacco cessation- continue nicotine patch strength at 21mg - Continue carafate with BMX for his dysphagia. - RTC in 1 week with CBC,CMP, TSH, FT4 and D1 Durvalumab IV. Mr. Latif voiced understanding of the plan and was given an opportunity to ask questions which I answered to the best of my ability. Mr. Latif understands he can call the clinic between visits with any questions/concerns or new symptoms. Linda Zepeda MSN, [employer], AOCNP Medical Oncology HPI/Interval History/Subjective: (04/13/21) Mr. Latif returns today for follow up. He has completed concurrent chemoradiation.. No fevers, chills. He did test positive for COVID but he had flu like symptoms and no fevers. He still has an occasional cough. No hemoptysis. He states he feels pretty good today. He does have esophageal dalila n when swallowing and discomfort in his right chest but it is slowly improving. He will stop the Fentanyl patch tomorrow. He will use the oxycodone as needed. He also uses the BMX/carafate as needed.Denies any nausea, vomiting, constipation or diarrhea. No changes in his breathing. He does get winded if he goes up a lot of stairs. He has an infrequent productive cough of yellow sputum. His appetite is improving and he is eating more of a variety of foods. He does complain of fatigue. No other focal complaints today. Social History/Support Network: Home situation: Lives with in [facility] with Velvet. 35 years. 3 children and plan to adopt another one through foster care. 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 38 Pk [...] known history of lung cancer Oncology Overview: TBD Presentation: Hx of lung nodules first identified in 2018 with incomplete evaluation at that time subsequently [...] (Positive/ Molecular Data: NA Treatment Course: 03.02.21 Started concurrent carbo/paclitaxel and XRT ONCBCN ONCOLOGY (AMB) 03/02/2021 03/09/2021 03/16/2021 03/23/2021 04/06/2021 Day, Cycle Day 1, Cycle 1 Day 8, Cycle 1 Day 15, Cycle 1 Day 22, Cycle 1 Day 29, Cycle 1 CARBOplatin (Paraplatin) IV 252 mg 252 mg 252 mg 252 mg 252 mg PACLitaxeL (Taxol) IV 50 mg/m2/dose = 118 mg 50 mg/m2/dose = 118 mg 50 mg/m2/dose = 118 mg 50 mg/m2/dose = 118 mg 50 mg/m2/dose = 118 mg Patient Active Problem List Diagnosis Date Noted ??? Primary malignant 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 01/08/2021 Allergies Allergen Reactions ??? Penicillins Nausea Only Medications 04/09/2121 Medication Sig Taking? benzonatate (Tessalon) 100 mg Capsule diphenhydrAMINE/aluminum-magnesium hydroxide with simethicone/lidocaine (BMX) (6.67 mg-0.83 mg-13.33 mg-1.33 mg/mL) oral liquid Take 10 mLs by mouth 3 times daily (before meals). No more than 8 dose per day>> First Mouth BLM mouth wash. sucralfate (Carafate) 100 mg/mL Suspension Take 10 mLs by mouth 4 times daily as needed. senna (Senokot) 8.6 mg Tablet Take 1 tablet by mouth 2 times daily. prochlorperazine (Compazine) 10 mg Tablet Take 1 tablet by mouth every 6 hours as needed for Nausea. fentaNYL (Duragesic) 25 mcg/hr Patch 72 hr Change 1 patch on the skin every 3 days. oxyCODONE (Roxicodone) 5 mg/5 mL Solution Take 5-10 mLs by mouth every 4 hours as needed for Pain. calcium carbonate (Tums) 200 mg calcium (500 mg) Tablet, Chewable Take 1 tablet by mouth daily. nicotine (Nicoderm CQ) 21 mg/24 hr Patch 24 hr Change 1 patch on the skin daily. Patient not taking: Reported on 04/01/2021 emollient base (CREAM BASE TOP) Apply topically. Remedy Phytoplex Moisturizer. Apply to area of radiation twice a day but no less than 2 hours before a treatment. UNABLE TO FIND Take 500 mg by mouth. Vitamin B17 acetaminophen (Tylenol) 500 mg Tablet Take 1,000 mg by mouth every 6 hours as needed for Pain. LORazepam (Ativan) 0.5 mg Tablet Take 1 tablet by mouth as needed for Anxiety. Take prior to MRI Brain I reviewed the problem list, allergies, medications, past medical history, social history and family history within the EPIC encounter. Pertinent details are noted above. Pertinent positives and negative from the Review of Systems are as summarized above in the HPI. Physical Exam: Wt Readings from Last 3 Encounters: 04/13/21 101.1 kg (222 lb 12.8 oz) 04/08/21 103.1 kg (227 lb 6.4 oz) 04/06/21 101.9 kg (224 lb 11.2 oz) Temp Readings from Last 3 Encounters: 04/13/21 36.8 ??C (98.2 ??F) (Temporal) 04/08/21 36.2 ??C (97.2 ??F) (Temporal) 04/06/21 36.8 ??C (98.2 ??F) (Temporal) BP Readings from Last 3 Encounters: 04/13/21 106/64 04/08/21 111/63 04/06/21 122/75 Pulse Readings from Last 3 Encounters: 04/13/21 (!) 103 04/08/21 80 04/06/21 (!) 102 Body surface area is 2.24 meters squared. Wt Readings from Last 3 Encounters: 04/13/21 101.1 kg (222 lb 12.8 oz) 04/08/21 103.1 kg (227 lb 6.4 oz) 04/06/21 101.9 kg (224 lb 11.2 oz) KPS Score ECOG Grade Definition 90-100 [...] selfcare; totally confined to bed or chair Constitutional: Oriented to person, place, and time. No distress. Appears well-developed. HENT: Mouth/Throat: Deferred due to COVID. Wearing a mask Eyes: No scleral icterus. Cardiovascular: Normal rate and regular rhythm. Exam reveals no friction rub. No murmur heard. Pulmonary/Chest: Effort normal. No stridor. No respiratory distress. Scattered wheezes in left base. No rales. Abdominal: Soft. No distension. No tenderness.No rebound. Musculoskeletal: Normal range of motion. No edema. Lymphadenopathy: No cervical adenopathy. Neurological: Alert and oriented to person, place, and time. CN are grossly intact and non-focal. Skin: Skin is warm and dry. No rash noted. Irradiated area on chest with erythema. Psychiatric: Normal mood and affect. Behavior is normal. Thought content normal. Review of Laboratory Data: 04/13/21- WBC-3.07 Hgb/Hct-10.0/30.2 Plt-229 ANC-2.60 Na-140 K+-4.3 [...] platelet count 254,000 Review of Imaging Data: 04/11/21- CT chest- were generated. ?? COMPARISON: 02/23/[address], [...] AM EDT Office Visit Hematology/Oncology at [address] [phone] Boy Tovar MD [facility] DR H[place]AT[place] [address] 10/17/2023 9:00 AM EDT Infusion Hematology Oncology at [address] [phone] documented as of this encounter Visit Diagnoses [...] gland documented in this encounter Care Teams Claims Manager Relationship Specialty Start Date End Date iNck Martinez MD [address] [place] [id number] PCP - General Internal Medicine 07/01/18 documented as of this encounter
--- OUTSIDE RECORDS SUMMARY | 2023-10-17 04:01 | XMS_ITS | Encounter Summary ---
Author Organization [facility] [place] [address] Care Team Providers Care Leach Runner Name Role Phone Nick Martinez MD Primary Care Provider [phone] Reason for Visit * Reason Comments Chemotherapy Cycle 1, Day 22; Car daria/Taxol * Treatment/Therapy Plan Authorization (Routine) - Specialty Diagnoses / Procedures Referred By Contac t Referred To Contact Diagnoses Primary malignant 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 Procedures TC PALONOSETRON HCL, 25MCG, INJECTION (ALOXI) TC PACLITAXEL, 1MG, INJ TC CARBOPLATIN, 50MG, INJECTION (PARAPLATIN) J2469 palonosetron (Aloxi) 0.25 MG J9267 PACLitaxeL (Taxol) 118 MG J9045 CARBOplatin (Paraplatin) 260 MG Boy Tovar MD [facility] DR HEMATOLOGY [place] [address] [facility] Hem Onc Office [address] [place] [phone] Referral ID Status Reason Start Date Expiration Date V isits Requested Visits Authorized [id number] 03/02/2021 04/15/2021 20 20 Encounter Details Date Type Department Care Team (Late st Contact Info) Description 03/23/2021 8:30 AM EST Infusion Hematology Oncology at [address] [phone] Primary malignant neoplasm of right upper lobe [...] Progress Notes * Jem Mann RN - 03/23/2021 8:30 AM EST INFUSION THERAPY ADMINISTRATION NOTES DIAGNOSIS: NSCLC CYCLE #: Cycle 1, Day 22 - Paclitaxel/Carboplatin concurrent with radiation. REASON FOR VISIT: To receive chemotherapy. SUBJECTIVE: Raffy offers no complaints. He is starting to experience some dysphagia. OBJECTIVE: Seen by provider. Ready to treat. LAB DATA: 03/23/21 - WBC - 3.87, Hg - 12.9, Plt Ct - 176, ANC - 3.35, Lytes wnl, BUN/CR - 21/1.2, IV ACCESS: PIV Pre administration: Chemotherapy orders independently verified for drug name, route, and dosage per patient's height, weight and BSA by JEM MANN RN and Staff Pharmacist(s). REACTIONS (DESCRIPTION, TIME, INTERVENTION AND EFFECTIVENESS) none ASSESSMENT: Raffy was awake, alert and tolerated treatment well. PIV discontinued prior to dismissal. PLAN: Return to clinic next week for day 29. documented in this encounter Plan of Treatment Upcoming Encounters Date Type Department Care Team (Late st Contact Info) Description 10/17/2023 8:30 AM EDT Office Visit Hematology/Oncology at [address] [phone] Boy Tovar MD [facility] DR HEMATOLOGY [place] [address] 10/17/2023 9:00 AM EDT Infusion Hematology Oncology at [address] [phone] documented as of this encounter Visit Diagnoses [...] MAR Action Action Date Dose Rate Site CARBOplatin (Paraplatin) 252 mg in dextrose 5% 275.2 mL infusion 252 mg (rounded from 252.2 mg, Target AUC = 2), Intravenous, ONCE, 1 dose, On 03/23/21 at 0945, Administer over 30 Minutes, Warning Vesicant/Irritant Medication New Bag 03/23/2021 10:48 AM EST 252 mg 550.4 mL/hr dexamethasone (Decadron) injection 10 mg 10 mg, Intravenous, ONCE, 1 dose, On Tue03/23/21 at 0845, Administer 30 minutes prior to PACLitaxel Given 03/23/2021 8:45 AM EST 10 mg diphenhydrAMINE (Benadryl) capsule 50 mg 50 mg, Oral, ONCE, 1 dose, On Tue03/23/21 at 0845, Administer 30 minutes prior to PACLitaxel, Routine Given 03/23/2021 8:44 AM EST 50 mg famotidine (Pepcid) (10 mg/mL) injection 20 mg 20 mg, Intravenous, ONCE, 1 dose, On Tue03/23/21 at 0845, Administer 30 minutes prior to PACLitaxel Given 03/23/2021 8:46 AM EST 20 mg PACLitaxeL (Taxol) 118 mg in sodium chloride 0.9% Non-PVC 269.6667 mL infusion 118 mg (rounded from 117.5 mg = 50 mg/m2/dose ? 2.35 m2 Treatment Plan BSA from Recorded weight), Intravenous, ONCE, 1 dose, On Tue03/23/21 at 0945, Administer over 60 Minutes, Warning Vesicant/Irritant Medication New Bag 03/23/2021 9:31 AM EST 118 mg 269.7 mL/hr palonosetron (Aloxi) (0.05 mg/mL) injection 0.25 mg 0.25 mg, Intravenous, ONCE, 1 dose, On Tue03/23/21 at 0845, Administer over 30 seconds., Routine Given 03/23/2021 8:47 AM EST 0.25 mg documented in this encounter Care Teams Leach Runner Relationship Specialty Start Date End Date Nick Martinez MD [address] [place] [address] PCP - General Internal Medicine 07/01/18 documented as of this encounter
--- OUTSIDE RECORDS SUMMARY | 2023-10-17 04:01 | XMS_ITS | Encounter Summary ---
Author Organization [facility] [place] [address] Care Team Providers Care Retail Wireless Sales Consultant Name Role Phone Nick Martinez MD Primary Care Provider [phone] Encounter Details Date Type Department Care Team (Late st Contact Info) Description 03/23/2021 8:00 AM EST Office Visit Hematology/Oncology at [address] [phone] Linda Zepeda, RN Primary malignant neoplasm of [...] Sign Reading Time Taken Comments Blood Pressure 125/67 03/23/2021 8:02 AM EST Pulse 110 03/23/2021 8:02 AM EST Temperature 37.1 ??C (98.7 ??F) 03/23/2021 8:02 AM ES T Respiratory Rate 18 03/23/2021 8:02 AM EST Oxygen Saturation 98% 03/23/2021 8:02 AM EST Inhaled Oxygen Concentration - - Weight 108.6 kg (239 lb 6.4 oz) 03/23/2021 8:02 AM EST Height 179.1 cm (5' 10.51) 03/23/2021 8:[address] Body Mass Index 33.85 03/23/2021 8:02 AM EST documented in this encounter Progress Notes * Linda Zepeda, LOUIS - 03/23/2021 8:00 AM EST Images from the original note were not included. Hematology & Medical Oncology [address] [address] Raffy Latif is being seen [...] weekly while on radiation for 6 weeks. Raffy is tolerating the therapy well. Labs and toxicities reviewed and are adequate for treatment. Plan: -Labs and toxicities assessed and acceptable for ongoing treatment. Continue weekly Carbo/Taxol as scheduled. -Tobacco cessation- continue nicotine patch strength at 21mg - Continue carafate with BMX for his dysphagia. - RTC in 1 week Mr. Latif voiced understanding of the plan and was given an opportunity to ask questions which I answered to the best of my ability. Mr. Latif understands he can call the clinic between visits with any questions/concerns or new symptoms. Linda Zepeda MSN, FARM MECHANIC APPRENTICE, AOCNP Medical Oncology HPI/Interval History/Subjective: (03/23/21) Mr. Latif returns today to continue treatment. No fevers, chills. He is complaining of a runny nose. Appetite is good- I'm eating everything is site. Denies any pain. He is having occasional bouts of nausea which is relieved with compazine. No vomiting or diarrhea. Bowel patterns are normal. No changes in his breathing. Still using the nicotine patch. He is having more fatigue. He does have a sore throat but the carafate is working well for him. It is not affecting his eating and drinking. No other focal complaints today. Social History/Support Network: Home situation: Lives with in [facility] with Velvet. 35 years. 3 children and plan to adopt another one through foster care. 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 38 [...] XRT ONCBCN ONCOLOGY (AMB) 03/02/2021 03/09/2021 03/16/2021 Day, Cycle Day [...] Allergen Reactions ??? Penicillins Nausea Only Medications 03/23/21 0809 Medication Sig Taking? calcium carbonate (Tums) 200 mg calcium (500 mg) Tablet, Chewable Take 1 tablet by mouth daily. Yes nicotine (Nicoderm CQ) 21 mg/24 hr Patch 24 hr Change 1 patch on the skin daily. Yes sucralfate (Carafate) 100 mg/mL Suspension Take 10 mLs by mouth 4 times daily as needed. Yes emollient base (CREAM BASE TOP) Apply topically. Remedy Phytoplex Moisturizer. Apply to area of radiation twice a day but no less than 2 hours before a treatment. Yes prochlorperazine (Compazine) 10 mg Tablet Take 1 tablet by mouth every 6 hours as needed for Nausea. Yes UNABLE TO FIND Take 500 mg by mouth. Vitamin B17 Yes acetaminophen (Tylenol) 500 mg Tablet Take 1,000 mg by mouth every 6 hours as needed for Pain. Yes LORazepam (Ativan) 0.5 mg Tablet Take 1 tablet by mouth as needed for Anxiety. Take prior to MRI Brain Yes diphenhydrAMINE/aluminum-magnesium hydroxide with simethicone/lidocaine (BMX) (6.67 mg-0.83 mg-13.33 mg-1.33 mg/mL) oral liquid Take 10 mLs by mouth 3 times daily (before meals). No more than 8 dose per day>> First Mouth BLM mouth wash. Patient not taking: Reported on 03/23/2021 I reviewed the problem list, allergies, medications, past medical history, social history and family history within the EPIC encounter. Pertinent details are noted above. Pertinent positives and negative from the Review of Systems are as summarized above in the HPI. Physical Exam: Wt Readings from Last 3 Encounters: 03/23/21 108.6 kg (239 lb 6.4 oz) 03/18/21 110.2 kg (243 lb) 03/16/21 108.9 kg (240 lb) Temp Readings from Last 3 Encounters: 03/23/21 37.1 ??C (98.7 ??F) (Temporal) 03/18/21 36.5 ??C (97.7 ??F) 03/16/21 36.1 ??C (97 ??F) (Temporal) BP Readings from Last 3 Encounters: 03/23/21 125/67 03/18/21 114/62 03/16/21 117/67 Pulse Readings from Last 3 Encounters: 03/23/21 (!) 110 03/18/21 88 03/16/21 100 Body surface area is 2.32 meters squared. Wt Readings from Last 3 Encounters: 03/23/21 108.6 kg (239 lb 6.4 oz) 03/18/21 110.2 kg (243 lb) 03/16/21 108.9 kg (240 lb) KPS Score ECOG Grade Definition 90-100 [...] Effort normal. No stridor. No respiratory distress. No wheezes. No rales. Abdominal: Soft. No distension. No tenderness.No rebound. Musculoskeletal: Normal range of motion. No edema. Lymphadenopathy: No cervical adenopathy. Neurological: Alert and oriented to person, place, and time. CN are grossly intact and non-focal. Skin: Skin is warm and dry. No rash noted. No erythema. Psychiatric: Normal mood and affect. Behavior is normal. Thought content normal. Review of Laboratory Data: 03/23/21- WBC-3.87 Hgb/Hct-12.9/37.2 Plt-176 ANC-3.35 Na-140 K+-4.2 BUN/Cr-21/1.2 Glucose-103 Ca-9.3 Mg-1.9 T. Bili-0.9 AST-21 ALT-25 Alk phos-68 Albumin-4.2 1.10.22 Sodium 138 potassium 4.1 chloride 101 BUN 16 creatinine 1.2 which is stable glucose 107 calcium 9.1magnesium 1.8 LFTs within normal limits albumin 4.0 White blood cell count 3.52 absolute neutrophil count 2.76 hemoglobin 13.3 MCV 87.5 platelet count 195,000 1/3/22- WBC-4.68 Hgb/Hct-14.0/41.6 Plt-244 ANC-3.76 Na-140 K+-4.0 BUN/cr-16/1.2 Glucose-134 Ca-9.3 Mg-2.1 T. Bili-0.6 AST-22 ALT-35 Alk phos-76 Albumin-4.0 03/02/21-WBC-7.63 Hgb/Hct-14.4/43.1 Plt-274 ANC-5.92 Na-138 k+-3.8 BUN/Cr-17/1.2 Glucose-116 Ca-9.0 Mg-2.0 T. Bili-0.7 AST-18 ALT-26 Alk phos-76 Albumin-4.1 10/08/2020 labs reviewed creatinine 1.2 calcium 9.5 albumin 4.3 LFTs within normal limits sodium 141 White blood cell count 7.8 hemoglobin 14.7 platelet count 254,000 Review of Imaging Data: 01.19.21 MRI BRain ?? 01.19.21 PET scan IMPRESSION [...] AM EDT Office Visit Hematology/Oncology at [address] [phone] Boy Tovar MD [facility] [address] [place] [address] 10/17/2023 9:00 AM EDT Infusion Hematology Oncology at [address] [phone] documented as of this encounter Visit Diagnoses [...] gland documented in this encounter Care Teams Retail Wireless Sales Consultant Relationship Specialty Start Date End Date Nick Martinez MD [address] [place] [address] PCP - General Internal Medicine 07/01/18 documented as of this encounter
--- OUTSIDE RECORDS SUMMARY | 2023-10-17 04:01 | XMS_ITS | Encounter Summary ---
Author Organization [facility] [place] [address] Care Team Providers Care Crm Marketing Analyst Name Role Phone Nick Martinez MD Primary Care Provider [phone] Encounter Details Date Type Department Care Team (Late st Contact Info) Description 05/28/2021 Ancillary Procedure [place] [address] Boy Tovar MD [facility] DR H[place]AT[place] [address] Social History Tobacco Use Types Packs/Day Years [...] AM EDT Office Visit Hematology/Oncology at [address] [phone] Boy Tovar MD [facility] [address] [place] [address] 10/17/2023 9:00 AM EDT Infusion Hematology Oncology at [address] [phone] documented as of this encounter Procedures Procedure Name Priority Date/Time Associated Diagnosis Comments FILM LIBRARY STORAGE ONLY CT CHEST Routine 05/28/2021 12:00 AM EDT documented in this encounter Results * Film Library- Storage Only CT Chest (05/28/2021 12:00 AM EDT) Narrative [facility] - 06/01/2021 9:37 AM EDT This exam is auto-finalizing. It's purpose is for storage only. Boy Tovar MD G FILM LIBRARY ORD ERABLES [facility] [place], [place] documented in this encounter Visit Diagnoses Not on filedocumented in this encounter Care Teams Crm Marketing Analyst Relationship Specialty Start Date End Date Nick Martinez MD [address] [place] [address] PCP - General Internal Medicine 07/01/18 documented as of this encounter
--- OUTSIDE RECORDS SUMMARY | 2023-10-17 04:01 | XMS_ITS | Encounter Summary ---
Author Organization [facility] Address [facility] [place] [address] Care Team Providers Care Funeral Sales Manager Name Role Phone Nick Martinez MD Primary Care Provider [phone] Reason for Visit * Reason Comments Chemotherapy * Treatment/Therapy Plan Authorization (Routine) - Closed Specialty Diagnoses / Procedures Referred By Contac t Referred To Contact Hematology and Oncology Diagnoses Primary malignant 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 Procedures [id number] Boy Jackson MD [facility] [address] [place] [address] Boy Tovar MD [address] [place] [address] [place] [address] Referral ID Status Reason Start Date Expiration Date Visits Re quested Visits Authorized [id number] Closed 11/05/2021 11/05/2022 99 99 Encounter Details Date Type Department Care Team (Late st Contact Info) Description 05/18/2021 3:00 PM EDT Infusion Hematology Oncology at [address] [phone] Primary malignant neoplasm of right [...] as of this encounter Progress Notes * Matthew Vergara RN - 05/18/2021 3:00 PM EDT INFUSION THERAPY ADMINISTRATION NOTES DIAGNOSIS: NSCLC CYCLE #: Day 1 Cycle2 REASON FOR VISIT: Chemotherapy SUBJECTIVE Raffy offers no complaints. OBJECTIVE LAB DATA: WBC 5.42; PLT 272; ANC 4.03; BUN 12;Creat 0.9 IV ACCESS: R arm PIV Pre administration: Chemotherapy orders independently verified for drug name, route, and dosage per patient's height, weight and BSA by Manjeet RN, C Miles LUNA & Pharm Brenda REACTIONS (DESCRIPTION, TIME, INTERVENTION AND EFFECTIVENESS) none ASSESSMENT Raffy was awake, alert and tolerated treatment well. PLAN Return to clinic per routine. documented in this encounter Plan of Treatment Upcoming Encounters Date Type Department Care Team (Late st Contact Info) Description 10/17/2023 8:30 AM EDT Office Visit Hematology/Oncology at [address] [phone] Boy Tovar MD [facility] [address] [place] [address] 10/17/2023 9:00 AM EDT Infusion Hematology Oncology at [address] [phone] documented as of this encounter Visit Diagnoses [...] 1,500 mg, Intravenous, ONCE, 1 dose, On 05/18/21 at 1630, Administer over 60 Minutes, This agent is restricted to outpatient use. Is this drug being given as an outpatient? Yes New Bag 05/18/2021 3:36 PM EDT 1,500 mg 280 mL/hr documented in this encounter Care Teams Funeral Sales Manager Relationship Specialty Start Date End Date Nick Martinez MD [address] [place] [address] PCP - General Internal Medicine 07/01/18 documented as of this encounter
--- OUTSIDE RECORDS SUMMARY | 2023-10-17 04:01 | XMS_ITS | Encounter Summary ---
Author Organization [facility] [place] [address] Care Team Providers Care Donor Services Specialist Name Role Phone Nick Martinez MD Primary Care Provider [phone] Encounter Details Date Type Department Care Team (Late st Contact Info) Description 05/28/2021 Telephone Radiation Oncology at [address] [phone] Katelyn Em RN Social History Tobacco Use Types Packs/Day [...] encounter Miscellaneous Notes * Telephone Encounter - Katelyn Em RN - 05/28/2021 2:10 PM EDT Radiation Oncology Nurse Telephone Note [facility] [place] [place] Background information : read telephone note from yesterday>>>>>>> 05/28/21 1:43 PM Telephone call to patient . I explained to patient that Dr Ross had contacted me( via in-basket) with this message: This is concerning for pneumonitis, either related to XRT or immunotherapy. He should get a CXR and be evaluated clinically. I asked him how he is feeling today. He said he had a rough morning with aching and throbbing of the right sided chest pain again. This time it went away on its own without the Tums. He states the cough is same as usual. His main complaint is feeling weak and no energy. He agreed to go to [facility] for evaluation within the hour. His was with him during this call. I next called [facility] ER and gave report to Jose Roberto and faxed recent records to them at [phone] documented in this encounter Plan of Treatment Upcoming Encounters Date Type Department Care Team (Late st Contact Info) Description 10/17/2023 8:30 AM EDT Office Visit Hematology/Oncology at [address] [phone] Boy Tovar MD [facility] DR [place] [address] 10/17/2023 9:00 AM EDT Infusion Hematology Oncology at [address] [phone] documented as of this encounter Visit Diagnoses Not on filedocumented in this encounter Care Teams Donor Services Specialist Relationship Specialty Start Date End Date Nick Martinez MD [address] [place] [address] PCP - General Internal Medicine 07/01/18 documented as of this encounter
--- OUTSIDE RECORDS SUMMARY | 2023-10-17 04:01 | XMS_ITS | Encounter Summary ---
Author Organization [facility] [place] [address] Care Team Providers Care Oil Well Perforator Operator Name Role Phone Nick Martinez MD Primary Care Provider [phone] Encounter Details Date Type Department Care Team (Late st Contact Info) Description 04/08/2021 Notes Only [place] [address] Parker Ross MD [facility] [place] [address] Social History Tobacco Use Types Packs/Day Years [...] slept in a mcc (including now)? No 02/04/2021 Sex and Gender Information Value Date Recorded Sex Assigned at Not on file Gender Identity Not on file Sexual Orientation Not on file documented as of this encounter Progress Notes * Parker Ross MD - 04/08/2021 11:59 PM EST Images from the original note were not included. Radiation Oncology Treatment Summary PATIENT NAME: Raffy Latif DATE OF : 1960 DIAGNOSIS / TREATMENT OVERVIEW Raffy Latif is a 60 y.o. male with cT1cN3 (Stage III-C) non-small cell lung cancer (adenocarcinoma). Definitive chemoradiotherapy. TREATMENT DETAILS Treatment Intent Curative Site Treated Primary, involved nodes Technique VMAT Adaptive Plan Required No Concurrent Chemo Yes ONC BCA CHEMO (AMB) 03/02/2021 03/09/2021 03/16/2021 Day, Cycle Day 1, Cycle 1 Day 8, Cycle 1 Day 15, Cycle 1 CARBOplatin (Paraplatin) IV 252 mg 252 mg 252 mg PACLitaxeL (Taxol) IV 50 mg/m2/dose 50 mg/m2/dose 50 mg/m2/dose ?? ONC BCA CHEMO (AMB) 03/23/2021 04/06/2021 Day, Cycle Day 22, Cycle 1 Day 29, Cycle 1 CARBOplatin (Paraplatin) IV 252 mg 252 mg PACLitaxeL (Taxol) IV 50 mg/m2/dose 50 mg/m2/dose Clinical Trial No TECHNICAL DETAILS Total Dose: 60 Gy / 30 fractions PLAN IMAGES CLINICAL COURSE aRffy Latif had the following toxicities at the end of treatment (CTCAE v4.03): Site Grade Skin 0 Cough 1 Dyspnea 0 Esophagitis 2 FOLLOW UP Per [facility] protocol documented in this encounter Plan of Treatment Upcoming Encounters Date Type Department Care Team (Late st Contact Info) Description 10/17/2023 8:30 AM EDT Office Visit Hematology/Oncology at [address] [phone] Boy Tovar MD [facility] DR [place] [address] 10/17/2023 9:00 AM EDT Infusion Hematology Oncology at [address] [phone] documented as of this encounter Visit Diagnoses Not on filedocumented in this encounter Care Teams Oil Well Perforator Operator Relationship Specialty Start Date End Date Nick Martinez MD [address] [place] [address] PCP - General Internal Medicine 07/01/18 documented as of this encounter
--- OUTSIDE RECORDS SUMMARY | 2023-10-17 04:01 | XMS_ITS | Encounter Summary ---
Author Organization [facility] [place] [address] Care Team Providers Care Assembly Stock Supervisor Name Role Phone Nick Martinez MD Primary Care Provider [phone] Encounter Details Date Type Department Care Team (Late st Contact Info) Description 03/30/2021 Telephone Hematology/Oncology at [address] [phone] Shaye Elizabeth RN Social History Tobacco Use Types Packs/Day [...] encounter Miscellaneous Notes * Telephone Encounter - KaronShaye oconnell RN - 03/30/2021 8:51 AM EST Caller: Raffy Relationship: Patient Clarified Two Patient Identifiers: [x] Reason For Call: Pain Assessment/Symptom Review (onset, location, duration, what makes it better or worse, pertinent positives and negatives): Patient reports increased pain on the right side of his sternum 10/10 pain. States that it is worsewith swallowing and eating, and he avoids these activities to not aggravate the pain. Only thing that helps is BMX solution which he is using as directed at the maximum prescribed. It does not last long enough and the effects are gone if he eats or drinks. Discussed Tylenol for pain. Told him he could take a dose of 1000mg now to see if this would help. Discussed that I would report his pain to Dr Ross and Dr Tovar and come up with a plan for increased pain relief. Also of note, patient was diagnosed with COVID last week and has been to the Emergency Room at [facility] for workup for this. Increased cough. Reports raising thick sputum. Review of Systems Related to Reason for Call: System POS NEG Not Applicable Head (ENT /Neuro) [] [x] [] Cardiac [] [x] [] Respiratory [x] [x] [] GI [x] [] [] [] [x] [] Musculoskeletal [x] [] [] Integumentary [] [x] [] Mental Health [] [x] [] Select Specific Decision Support Tool Used: MD Name of Guideline/Protocol Used:MD Disposition/Plan of Care: Home-will get back to Raffy with a plan for pain management. Patient/Caregiver verbalizes understanding of plan of care: Yes Patient/Caregiver agrees with plan: Yes Advised patient/caregiver to: Continue with BMX solution for pain, take Tylenol 1000mg per package instructions. Will get back to him with a plan for pain management Patient/Caregiver demonstrates understanding via teach back: Verbalized Understanding * Telephone Encounter - Shaye Arreguin RN - 03/30/2021 8:33 AM EST ----- Message from Genoveva Herman RN sent at 03/30/2021 8:23 AM EST ----- Regarding: FW: Patient with Questions ----- Message ----- From: Lou Badillo Sent: 03/30/2021 8:11 AM EST To: [facility] Hem Onc Nurse Subject: Patient with Questions Raffy called this morning he asked if he could talk to a nurse as he has questions. He was very angry and wanted a call back JLUIS. I asked if he was ok of if it was an emergency and he said no. But he did not care to tell me what the questions he had were about. Also very angry! His call back is [phone]. Urvashi IngeZaheer documented in this encounter Plan of Treatment Upcoming Encounters Date Type Department Care Team (Late st Contact Info) Description 10/17/2023 8:30 AM EDT Office Visit Hematology/Oncology at [address] [phone] Boy Tovar MD [facility] [place] [address] 10/17/2023 9:00 AM EDT Infusion Hematology Oncology at [address] [phone] documented as of this encounter Visit Diagnoses Not on filedocumented in this encounter Care Teams Assembly Stock Supervisor Relationship Specialty Start Date End Date Nick Martinez MD [address] [place] [address] PCP - General Internal Medicine 07/01/18 documented as of this encounter
--- OUTSIDE RECORDS SUMMARY | 2023-10-17 04:01 | XMS_ITS | Encounter Summary ---
Author Organization [facility] [place] [address] Care Team Providers Care Strategy Specialist Name Role Phone Nick Martinez MD Primary Care Provider [phone] Encounter Details Date Type Department Care Team (Late st Contact Info) Description 05/27/2021 Telephone Radiation Oncology at [address] [phone] Katelyn Em RN Social History [...] Telephone Encounter - Katelyn Em RN - 05/27/2021 4:25 PM EDT Radiation Oncology Nurse Telephone Note [facility] [place], [place] ----- Message from Ericka Ayon sent at 05/27/2021 12:14 PM EDT ----- Regarding: Ache Pains and Questions Raffy called looking to speak to a nurse regarding a few things that are going on. I asked him to give me some more information and he just said that he has some aches and pain and is looking to speak to a nurse about a few things. When you get a chance can you please give him a call back at [phone]? 4:09- 4:25 Patient called clinic again asking to speak with nurse. He states he has had a bad cough since he stopped radiation treatments about 6 weeks ago. It is so bad that it sometimes wakes him up a night. He currently does not take anything for this cough. Tessalon is on his med list, however he states he ran out of those a couple months ago. He states he is currently receiving immunotherapy. He is also concerned about a pain he has developed right side chest, started a couple days ago. It is worse when he coughs. The pain gets up to a 7/10. He took a Tums about 5 mins before he called and it is beginning to feel better. He states he is eating normally with no pain with swallowing. He denies fever, stating his has been checking it. He is bringing up clear phlegm. His did a at home COVID test today and it was negative. He states he doesn't feel sick. Just has the pain in chest and frequent cough. By the time we came to the completion of the call he stated his pain in chest was completley gone. He asked if he could have a refill on the Tessalon Perls for his cough. He states he has plenty of Tums. Instructions: he was instructed to go to ER if chest pain returns and is not relived by Tums. Patient verbalized understanding of these instructions. This note was forwarded to Dr Ross and Linda Zepeda APRN. documented in this encounter Plan of Treatment Upcoming Encounters Date Type Department Care Team (Late st Contact Info) Description 10/17/2023 8:30 AM EDT Office Visit Hematology/Oncology at [address] [phone] Boy Tovar MD [facility] [place] [address] 10/17/2023 9:00 AM EDT Infusion Hematology Oncology at [address] [phone] documented as of this encounter Visit Diagnoses Not on filedocumented in this encounter Care Teams Strategy Specialist Relationship Specialty Start Date End Date Nick Martinez MD [address] [place] [address] PCP - General Internal Medicine 07/01/18 documented as of this encounter
--- OUTSIDE RECORDS SUMMARY | 2023-10-17 04:01 | XMS_ITS | Encounter Summary ---
Author Organization [facility] [place] [address] Care Team Providers Care Market Development Director Name Role Phone Nick Martinez MD Primary Care Provider [phone] Encounter Details Date Type Department Care Team (Late st Contact Info) Description 04/03/2021 Telephone Radiation Oncology at [address] [phone] Katelyn Em RN Social History [...] Telephone Encounter - Katelyn Em RN - 04/03/2021 1:50 PM EST Radiation Oncology Nurse Telephone Note [facility] [place], [place] ----- Message from Parker Ross MD sent at 04/02/2021 11:08 AM EST ----- Please check in with him Tuesday to evaluate how well the Fentanyl is controlling his pain and how his nausea is doing. Thanks. Patient states that he is definitely much better than 2 days ago. His pain is a 1 or 2/10. He is taking only 5mg of liquid oxycodone ( instead of 10 mg) because the 10 mg was making him nauseous. He is taking that about every 4 hours with the Fentanyl patch. He finds that BML washes away too quickly if he takes it before eating and therefore he is doing itafter he eats. He is doing soft bland foods likes milk shakes and he was excited to enjoy watermelon. He finds taking the compazine in the morning to prevent the nausea is also helpful. He states he took a COVID quick at home test yesterday and it was negative. Background information: >>>>he went to the [facility] ER 03/26/21 when he was tested for COVIDand he was positive. He is concerned about missing chemo that is scheduled 04/06 as he has not been told if he has been lifted off precautions yet. He was informed that he will no longer be on COVID droplet precautions on 04/06 ( 04/06 will be 11 days after positive test) and therefore when he checks in on that day, he can go directly to the bilingual receptionist area. He was instructed to call clinic if he develops increased pain or other concerning symptoms. For weekend coverage while our clinic is closed, the patient was instructed to call [facility] at [phone] and ask for the wafer production worker radiation oncologist. Patient verbalized understanding. documented in this encounter Plan of Treatment Upcoming Encounters Date Type Department Care Team (Late st Contact Info) Description 10/17/2023 8:30 AM EDT Office Visit Hematology/Oncology at [address] [phone] Boy Tovar MD [facility] [address] [place] [address] 10/17/2023 9:00 AM EDT Infusion Hematology Oncology at [address] [phone] documented as of this encounter Visit Diagnoses Not on filedocumented in this encounter Care Teams Market Development Director Relationship Specialty Start Date End Date Nick Martinez MD [address] [place] [address] PCP - General Internal Medicine 07/01/18 documented as of this encounter
--- OUTSIDE RECORDS SUMMARY | 2023-10-17 04:01 | XMS_ITS | Encounter Summary ---
Author Organization [facility]ly [facility] Address [facility] [place] [address] Care Team Providers Care Plumbing Warehouse Helper Name Role Phone Nick Martinez MD Primary Care Provider [phone] Encounter Details Date Type Department Care Team (Late st Contact Info) Description 03/30/2021 Orders Only [place] [address] Parker Ross MD [facility] [place] [address] Social History Tobacco Use Types Packs/Day Years [...] AM EDT Office Visit Hematology/Oncology at [address] [phone] Boy Tovar MD [facility] [address] [place] [address] 10/17/2023 9:00 AM EDT Infusion Hematology Oncology at [address] [phone] documented as of this encounter Visit Diagnoses Not on filedocumented in this encounter Care Teams Plumbing Warehouse Helper Relationship Specialty Start Date End Date Nick Martinez MD [address] [place] [address] PCP - General Internal Medicine 07/01/18 documented as of this encounter
--- OUTSIDE RECORDS SUMMARY | 2023-10-17 04:01 | XMS_ITS | Encounter Summary ---
Author Organization [facility] [place] [address] Care Team Providers Care Tearoom Host Name Role Phone Nick Martinez MD Primary Care Provider [phone] Encounter Details Date Type Department Care Team (Late st Contact Info) Description 04/02/2021 Orders Only [place] [address] Parker Ross MD [facility] [place] [address] Social History Tobacco Use Types Packs/Day Years [...] AM EDT Office Visit Hematology/Oncology at [address] [phone] Boy Tovar MD [facility] DR HEMATOLOGY [place] [address] 10/17/2023 9:00 AM EDT Infusion Hematology Oncology at [address] [phone] documented as of this encounter Visit Diagnoses Not on filedocumented in this encounter Care Teams Tearoom Host Relationship Specialty Start Date End Date Nick Martinez MD [address] [place] [address] PCP - General Internal Medicine 07/01/18 documented as of this encounter
--- OUTSIDE RECORDS SUMMARY | 2023-10-17 04:01 | XMS_ITS | Encounter Summary ---
Author Organization [facility] [place] [address] Care Team Providers Care Bioassayist Name Role Phone Nick Martinez MD Primary Care Provider [phone] Encounter Details Date Type Department Care Team (Late st Contact Info) Description 06/01/2021 1:30 PM EDT Office Visit Hematology/Oncology at [address] [phone] Boy Tovar MD [facility] DR [place] [address] Linda Zepeda, RN Primary malignant 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; Pneumonitis Social History Tobacco Use Types Packs/Day [...] Sign Reading Time Taken Comments Blood Pressure 130/71 06/01/2021 1:37 PM EDT Pulse 100 06/01/2021 1:37 PM EDT Temperature 36.2 ??C (97.2 ??F) 06/01/2021 1:37 PM ED T Respiratory Rate 18 06/01/2021 1:37 PM EDT Oxygen Saturation 98% 06/01/2021 1:37 PM EDT Inhaled Oxygen Concentration - - Weight 94.3 kg (208 lb) 06/01/2021 1:37 PM EDT Height 177.8 cm (5' 10) 06/01/2021 1:37 PM EDT Body Mass Index 29.84 06/01/2021 1:37 PM EDT documented in this encounter Progress Notes * Boy Tovar MD - 06/01/2021 1:30 PM EDT Images from the original note were not included. Hematology & Medical Oncology [address] [phone] Raffy Latif is being seen for cT1cN3 [...] given in the ED which is reassuring Plan: - Complete the antibiotic ccourse - Assuming he continues to feel can likely resume immunotherapy in 2 weeks - Discussed the importance of stopping chewing tobacco as well as not smoking - RTC in 2 weeks Boy Tovar MD, MS 06/01/2021 Thoracic Oncology [facility] HPI/Interval History/Subjective: Last seen 05/18/2021 Was seen in the ED last week on 05.28 for cough and right sided chest pain. Treated with abx for pneumonia. Feels significantly better. Right sided chest pain and cough much better. Got a 10 day course of abx- he's not sure which abx. Cough better using Tessalon Perles as well No fever No rashes Energy is low. Had been able to work but then had to stop due to the cough Social History/Support Network: Home situation: Lives with in [facility] with Velvet. 35 years. 3 children and plan to adopt another one through foster care. 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 38 Pk [...] Exam: Wt Readings from Last 3 Encounters: 05/18/21 97.3 kg (214 lb 6.4 oz) 04/20/21 98.2 kg (216 lb 9.6 oz) 04/15/21 99.6 kg (219 lb 9.6 oz) Temp Readings from Last 3 Encounters: 05/18/21 36.3 ??C (97.3 ??F) (Temporal) 04/20/21 36.4 ??C (97.5 ??F) (Temporal) 04/15/21 37 ??C (98.6 ??F) BP Readings from Last 3 Encounters: 05/18/21 123/68 04/20/21 125/82 04/15/21 102/60 Pulse Readings from Last 3 Encounters: 05/18/21 96 04/20/21 97 04/15/21 65 There is no height or weight on file to calculate BSA. Wt Readings from Last 3 Encounters: 05/18/21 97.3 kg (214 lb 6.4 oz) 04/20/21 98.2 kg (216 lb 9.6 oz) 04/15/21 99.6 kg (219 lb 9.6 oz) KPS Score ECOG Grade [...] Judgment: Judgment normal. Review of Laboratory Data: 05.28.21 Labs from the ED 05/18/21- WBC-5.42 [...] 8:30 AM EDT Office Visit Hematology/Oncology at [address] [phone] Boy Tovar MD [facility] DR [place] [address] 10/17/2023 9:00 AM EDT Infusion Hematology Oncology at [address] [phone] documented as of this encounter Visit Diagnoses Diagnosis Primary malignant 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 Malignant neoplasm of upper lobe, bronchus or lung Pneumonitis Pneumonia, organism unspecified Primary malignant 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 Malignant neoplasm of upper lobe, bronchus or lung Brain metastasis 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
--- OUTSIDE RECORDS SUMMARY | 2023-10-17 04:01 | XMS_ITS | Encounter Summary ---
Author Organization [facility] [place] [address] Care Team Providers Care Hemodialysis Technician Name Role Phone Nick Martinez MD Primary Care Provider [phone] Encounter Details Date Type Department Care Team (Late st Contact Info) Description 04/20/2021 Notes Only Hematology/Oncology at [address] [phone] Azalea Watkins, BLADE GRADER OPERATOR OFFICE OF CARE MANAGEMENT Social History [...] Progress Notes * Azalea Watkins MSW - 04/20/2021 10:13 AM EST Follow up with pt during his infusion visit today. Pt indicated he is doing fairly well overall. Heis looking towards returning to work at some point soon hopefully. He continues to report financialstrain. His application to the [facility] is still pending and reminded him of the turn around time of 3-4weeks. His is dealing with some health issues right now too. He did share their adoption of his young foster daughter was finalized last week and they are all very happy re this. Offered support. Reminded pt of BLADE GRADER OPERATOR availability and contact information. Will continue to follow. Brief assessment Supportive Counseling Financial resources documented in this encounter Plan of Treatment Upcoming Encounters Date Type Department Care Team (Late st Contact Info) Description 10/17/2023 8:30 AM EDT Office Visit Hematology/Oncology at [address] [phone] Boy Tovar MD [facility] DR HEMATOLOGY [place] [address] 10/17/2023 9:00 AM EDT Infusion Hematology Oncology at [address] [phone] documented as of this encounter Visit Diagnoses Not on filedocumented in this encounter Care Teams Hemodialysis Technician Relationship Specialty Start Date End Date Nick Martinez MD [address] [place] [address] PCP - General Internal Medicine 07/01/18 documented as of this encounter
--- OUTSIDE RECORDS SUMMARY | 2023-10-17 04:01 | XMS_ITS | Encounter Summary ---
Author Organization [facility] [place] [address] Care Team Providers Care Allied Health Professional Name Role Phone Nick Martinez MD Primary Care Provider [phone] Encounter Details Date Type Department Care Team (Late st Contact Info) Description 03/30/2021 Orders Only Hematology [place] [address] Boy Tovar MD [facility] DR [place] [address] Primary malignant neoplasm of right upper lobe [...] AM EDT Office Visit Hematology/Oncology at [address] [phone] Boy Tovar MD [facility] DR [place]EM[place] [address] 10/17/2023 9:00 AM EDT Infusion Hematology Oncology at [address] [phone] documented as of this encounter Visit Diagnoses [...] gland documented in this encounter Care Teams Allied Health Professional Relationship Specialty Start Date End Date Nick Martinez MD [address] [place] [address] PCP - General Internal Medicine 07/01/18 documented as of this encounter
--- OUTSIDE RECORDS SUMMARY | 2023-10-17 04:01 | XMS_ITS | Encounter Summary ---
Author Organization [facility] [place] [facility] [place] [address] Care Team Providers Care Delivery Specialist Name Role Phone Nick Martinez MD Primary Care Provider [phone] Encounter Details Date Type Department Care Team (Late st Contact Info) Description 05/12/2021 Telephone Radiation Oncology at [address] [phone] Alyssa Brar, RN Social History Tobacco Use Types Packs/Day [...] encounter Miscellaneous Notes * Telephone Encounter - Alyssa Brar RN - 05/12/2021 11:42 AM EST Telephone call to [facility] pharmacy to clarify if patient has refill remaining on BMX prescription sentby Dr. Tovar 05/01/21. Pharmacist confirmed that there is a refill available which they will order and have available for patient tomorrow. Message left on identifiable voice mail for patient regarding above along with our contact information and request for call back should he have any questions. * Telephone Encounter - Alyssa Brar RN - 05/12/2021 11:42 AM EST ----- Message from Lou Badillo sent at 05/11/2021 3:40 PM EST ----- Regarding: Medication Refill Raffy called and is asking for a refill on his BLM. He would like it refilled at [facility] he said. Thanks Inge~ documented in this encounter Plan of Treatment Upcoming Encounters Date Type Department Care Team (Late st Contact Info) Description 10/17/2023 8:30 AM EDT Office Visit Hematology/Oncology at [address] [phone] Boy Tovar MD [facility] [place] [address] 10/17/2023 9:00 AM EDT Infusion Hematology Oncology at [address] [phone] documented as of this encounter Visit Diagnoses Not on filedocumented in this encounter Care Teams Delivery Specialist Relationship Specialty Start Date End Date Nick Martinez MD [address] [place] [address] PCP - General Internal Medicine 07/01/18 documented as of this encounter
--- OUTSIDE RECORDS SUMMARY | 2023-10-17 04:01 | XMS_ITS | Encounter Summary ---
Author Organization Pending Sale To [facility] Address [facility] [place] [address] Care Team Providers Care Automobile Inspector Name Role Phone Nick Martinez MD Primary Care Provider Reason for Visit * Reason Comments Chemotherapy C1D29 Paclitaxel/Car boplatin * Treatment/Therapy Plan Authorization (Routine) - Specialty Diagnoses / Procedures Referred By Contac t Referred To Contact Diagnoses Primary malignant 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 Procedures TC PALONOSETRON HCL, 25MCG, INJECTION (ALOXI) TC PACLITAXEL, 1MG, INJ TC CARBOPLATIN, 50MG, INJECTION (PARAPLATIN) J2469 palonosetron (Aloxi) 0.25 MG J9267 PACLitaxeL (Taxol) 118 MG J9045 CARBOplatin (Paraplatin) 260 MG Boy Tovar MD [facility] DR [place] [address] [facility] Hem Onc Office [address] [place] [phone] Referral ID Status Reason Start Date Expiration Date V isits Requested Visits Authorized [id number] 03/02/2021 04/15/2021 20 20 Encounter Details Date Type Department Care Team (Late st Contact Info) Description 04/06/2021 9:00 AM EST Infusion Hematology Oncology at [address] [phone] Primary malignant neoplasm of right upper lobe [...] Progress Notes * Maddy Aquino RN - 04/06/2021 9:00 AM EST INFUSION THERAPY ADMINISTRATION NOTES DIAGNOSIS: NSCLC CYCLE #: Cycle 1, Day 29 - Paclitaxel/Carboplatin concurrent with radiation. REASON FOR VISIT: To receive chemotherapy. SUBJECTIVE: Raffy offers no complaints. He is experiencing some pain with swallowing. Some days worse than others, hydration added to treatment plan for today. OBJECTIVE: Seen by provider. Ready to treat. LAB DATA: - WBC - 5.27, Hg - 10.6, Plt Ct - 210, ANC - 4.20, BUN/CR - 14/1.2, IV ACCESS: PIV Pre administration: Chemotherapy orders independently verified for drug name, route, and dosage per patient's height, weight and BSA by Maddy Aquino, CHERYL and Staff Pharmacist(s). REACTIONS (DESCRIPTION, TIME, INTERVENTION AND EFFECTIVENESS) none ASSESSMENT: Raffy was awake, alert and tolerated treatment well. PIV discontinued prior to dismissal. PLAN: Return to clinic per plan. documented in this encounter Plan of Treatment Upcoming Encounters Date Type Department Care Team (Late st Contact Info) Description 10/17/2023 8:30 AM EDT Office Visit Hematology/Oncology at [address] [phone] Boy Tovar MD [facility] DR [place] [address] 10/17/2023 9:00 AM EDT Infusion Hematology Oncology at [address] [phone] documented as of this encounter Visit Diagnoses [...] = 2), Intravenous, ONCE, 1 dose, On 04/06/21 at 1030, Administer over 30 Minutes, Warning Vesicant/Irritant Medication New Bag 04/06/2021 11:26 AM EST 252 mg 550.4 mL/hr dexamethasone (Decadron) injection 10 mg 10 mg, Intravenous, ONCE, 1 dose, On Tue04/06/21 at 0930, Administer 30 minutes prior to PACLitaxel Given 04/06/2021 9:34 AM EST 10 mg diphenhydrAMINE (Benadryl) capsule 50 mg 50 mg, Oral, ONCE, 1 dose, On Tue04/06/21 at 0930, Administer 30 minutes prior to PACLitaxel, Routine Given 04/06/2021 9:28 AM EST 50 mg famotidine (Pepcid) (10 mg/mL) injection 20 mg 20 mg, Intravenous, ONCE, 1 dose, On Tue04/06/21 at 0930, Administer 30 minutes prior to PACLitaxel Given 04/06/2021 9:36 AM EST 20 mg PACLitaxeL (Taxol) 118 mg in sodium chloride 0.9% Non-PVC 269.6667 mL infusion 118 mg (rounded from 117.5 mg = 50 mg/m2/dose ? 2.35 m2 Treatment Plan BSA from Recorded weight), Intravenous, ONCE, 1 dose, On Tue04/06/21 at 1030, Administer over 60 Minutes, Warning Vesicant/Irritant Medication New Bag 04/06/2021 10:10 AM EST 118 mg 269.7 mL/hr palonosetron (Aloxi) (0.05 mg/mL) injection 0.25 mg 0.25 mg, Intravenous, ONCE, 1 dose, On Tue04/06/21 at 0930, Administer over 30 seconds., Routine Given 04/06/2021 9:32 AM EST 0.25 mg sodium chloride 0.9% infusion 1,000 mL, Intravenous, CONTINUOUS, Starting on Tue04/06/21 at 0930, Until Tue04/06/21 at 1508, Over 2 hours New Bag 04/06/2021 9:27 AM EST 1,000 mLs documented in this encounter Care Teams Automobile Inspector Relationship Specialty Start Date End Date Nick Martinez MD [address] [place] [address] PCP - General Internal Medicine 07/01/18 documented as of this encounter
--- OUTSIDE RECORDS SUMMARY | 2023-10-17 04:01 | XMS_ITS | Encounter Summary ---
Author Organization [facility] [place] [address] Care Team Providers Care Customs Officer Name Role Phone Nick Martinez MD Primary Care Provider Encounter Details Date Type Department Care Team (Late st Contact Info) Description 04/08/2021 5:00 PM EST Office Visit Radiation Oncology at [address] [phone] Parker Ross MD [facility] [place] [address] Primary malignant neoplasm of right upper lobe [...] Sign Reading Time Taken Comments Blood Pressure 111/63 04/08/2021 10:34 AM EST Pulse 80 04/08/2021 10:34 AM EST Temperature 36.2 ??C (97.2 ??F) 04/08/2021 1 0:34 AM EST Respiratory Rate 20 04/08/2021 10:3 4 AM EST Oxygen Saturation 98% 04/08/2021 10: 34 AM EST Inhaled Oxygen Concentration - - Weight 103.1 kg (227 lb 6.4 oz) 04/08/2021 10:34 AM EST 224 by patient scale Height - - Body Mass Index 32.16 04/06/2021 8:17 AM EST documented in this encounter Progress Notes * Parker Ross MD - 04/08/2021 5:00 PM EST ON TREATMENT VISIT NOTE Raffy Latif is a 60 y.o. male with cT1cN3 (Stage III-C) non-small cell lung cancer (adenocarcinoma). Definitive chemoradiotherapy. Current treatment dose: 60 Gy in 30 fractions. Anticipated total dose: 60 Gy in 30 fractions. Concomitant [...] PORT films have been reviewed, please see ARIA for details. Changes in medical condition Pain: Pain is not present on current pain regimen; Fentanyl 25 mcg, 5 mg oxycodone Dyspnea/Cough: no issues, occasional cough. GI: -N/V: minimal nausea unless he takes 5 mg oxycodone, has compazine -Bowels: no issues Esophagitis: using BMX / Carafate. Pain control as per above. Smoking: chewing tobacco down on nicotine Other: Nutrition Assessment: Weight : 113 kg initial Change: 103.5 = > 103.1 Objective: Vitals: 04/08/21 1034 BP: 111/63 Patient Position: Sitting Pulse: 80 Resp: 20 Temp: 36.2 ??C (97.2 ??F) TempSrc: Temporal SpO2: 98% Weight: 103.1 kg (227 lb 6.4 oz) SKIN: no skin erythema LUNGS: CTAB no w/r/r Assessment: Controlled esophagitis,weight stable, symptoms controlled with BMX / carafate / opioids. CTCAE TOXICITY GRADES (see below for [email or web address]): Site Grade Skin 0 Cough 1 Dyspnea 0 Esophagitis 2 TREATMENT RESPONSE: No change Plan: ?? Continue RT per prescription ?? Skin: Jeans cream QD ?? Pain control: ?? Fentanyl 25 mcg given pain needs ?? Oxycodone 5 mg prn ?? Esophagitis: ?? Carafate ?? BMX prn ?? Cough/Dyspnea: No intervention needed at this time ?? Alimentation: followed by business management professor, weight loss , all by mouth ?? FU: to see him in one week CTCAE v4.03 scales for reference Skin 0 [...] 8:30 AM EDT Office Visit Hematology/Oncology at [address] [phone] Boy Tovar MD [facility] DR HEMATOLOGY [place] [address] 10/17/2023 9:00 AM EDT Infusion Hematology Oncology at [address] [phone] documented as of this encounter Visit Diagnoses [...] gland documented in this encounter Care Teams Customs Officer Relationship Specialty Start Date End Date Nick Martinez MD [address] [place] [address] PCP - General Internal Medicine 07/01/18 documented as of this encounter
--- OUTSIDE RECORDS SUMMARY | 2023-10-17 04:01 | XMS_ITS | Encounter Summary ---
Author Organization [facility] [place] [address] Care Team Providers Care Purchasing Associate Name Role Phone Nick Martinez MD Primary Care Provider [phone] Reason for Visit * Reason Onset Date Comments Medication Refill 05/28/2021 Encounter Details Date Type Department Care Team (Late st Contact Info) Description 05/28/2021 Refill Hematology/Oncology at [address] [phone] Linda Zepeda, RN Social History Tobacco Use Types Packs/Day [...] slept in a half-way (including now)? No 02/04/2021 Sex and Gender Information Value Date Recorded Sex Assigned at Not on file Gender Identity Not on file Sexual Orientation Not on file documented as of this encounter Plan of Treatment Upcoming Encounters Date Type Department Care Team (Late st Contact Info) Description 10/17/2023 8:30 AM EDT Office Visit Hematology/Oncology at [address] [phone] Boy Tovar MD [facility] DR [place] [address] 10/17/2023 9:00 AM EDT Infusion Hematology Oncology at [address] [phone] documented as of this encounter Visit Diagnoses Not on filedocumented in this encounter Care Teams Purchasing Associate Relationship Specialty Start Date End Date Nick Martinez MD [address] [place] [address] PCP - General Internal Medicine 07/01/18 documented as of this encounter
--- OUTSIDE RECORDS SUMMARY | 2023-10-17 04:01 | XMS_ITS | Encounter Summary ---
Author Organization [facility] [place] [address] Care Team Providers Care Air Conditioning Supervisor Name Role Phone Nick Martinez MD Primary Care Provider [phone] Encounter Details Date Type Department Care Team (Late st Contact Info) Description 05/18/2021 2:30 PM EDT Office Visit Hematology/Oncology at [address] [phone] Boy Tovar MD [facility] [address] [place] [address] Linda Zepeda, RN Primary malignant neoplasm of [...] Sign Reading Time Taken Comments Blood Pressure 123/68 05/18/2021 2:17 PM EDT Pulse 96 05/18/2021 2:17 PM EDT Temperature 36.3 ??C (97.3 ??F) 05/18/2021 2:17 PM ED T Respiratory Rate 18 05/18/2021 2:17 PM EDT Oxygen Saturation 99% 05/18/2021 2:17 PM EDT Inhaled Oxygen Concentration - - Weight 97.3 kg (214 lb 6.4 oz) 05/18/2021 2:17 P M EDT Height 179.1 cm (5' 10.51) 05/18/2021 2:17 PM E DT Body Mass Index 30.32 05/18/2021 2:17 PM EDT documented in this encounter Progress Notes * Linda Zepeda, MENTAL HEALTH SOCIAL WORKER - 05/18/2021 2:30 PM EDT Images from the original note were not included. Hematology & Medical Oncology [address] [id number] Raffy Latif is being seen for cT1cN3 [...] is vaccinated. He is feeling fine today. Raffy is here to continue consolidative Durvalumab. This will be C2 for him today. He tolerated [id number] any adverse effects. Labs and toxicities assessed and we will continue treatments. # Esophageal Pain- pretty much resolved. He is no longer taking any narcotics. Occasionally has some discomfort when eating food. # Right chest pain- having pain directly over right nipple around 3-4th rib space. Pain radiates across to his axilla and sometimes down the right arm. No palpable lumps. He states is he uses the BMXit sometimes helps. Pain is intermittent. He doesn't feel that it has improved at all. Plan: - Proceed with C2 Durvalumab IV today. -Tobacco cessation- continue nicotine patch strength at 21mg - Continue carafate with BMX for his dysphagia. - RTC in 4 weeks with CBC,CMP, TSH, FT4 and C3 Durvalumab IV. Mr. Latif voiced understanding of the plan and was given an opportunity to ask questions which I answered to the best of my ability. Mr. Latif understands he can call the clinic between visits with any questions/concerns or new symptoms. Linda Zepeda MSN, MENTAL HEALTH SOCIAL WORKER, AOCNP Medical Oncology HPI/Interval History/Subjective: Last seen 04/13/21- Mr. Latif returns today to continue consolidative immunotherapy. No fevers, chills. He did test positive for COVID but he had flu like symptoms and no fevers. He still has a frequent Cough and is bringing up copious amounts of clear sputum. No hemoptysis. He states he feels pretty good today. He does have esophageal pain on occasion when eating but that has improved. He is still complaining of dalila in his right chest that is intermittent and sometimes radiates into the right axilla and down his arm. He is no longer taking any narcotics or pain medication. He occasionally uses the BMX with some relief. Denies any nausea, vomiting, constipation or diarrhea. No changes in his breathing.He does get winded if he goes up a lot of stairs. His appetite is improving and he is eating more of a variety of foods. He is gaining back weight. 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 He states the first week was rough but its better now. Social History/Support Network: Home situation: Lives with in [facility] with Velvet. 35 years. 3 children and plan to adopt another one through foster care. 1 grandchild Employment: [employer] Tobacco use: Quit in 1999. 40 Pk [...] (AMB) 03/02/2021 03/09/2021 03/16/2021 03/23/2021 04/06/2021 04/20/2021 Day, Cycle Day 1, Cycle 1 Day 8, Cycle 1 Day 15, Cycle 1 Day 22, Cycle 1 Day 29, Cycle 1 Day 1, Cycle 1 CARBOplatin (Paraplatin) IV 252 mg 252 mg 252 mg 252 mg 252 mg - durvalumab 50 mg/mL (Imfinzi) IV - - - - - 1,500 mg PACLitaxeL (Taxol) IV 50 mg/m2/dose = 118 mg 50 mg/m2/dose = 118 mg 50 mg/m2/dose = 118 mg 50 mg/m2/dose = 118 mg 50 mg/m2/dose = 118 mg - Patient Active Problem List Diagnosis Date Noted ??? Primary malignant 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 01/08/2021 Allergies Allergen Reactions ??? Penicillins Nausea Only Medications 05/18/21 1426 Medication Sig Taking? diphenhydrAMINE/aluminum-magnesium hydroxide with simethicone/lidocaine (BMX) (6.67 mg-0.83 mg-13.33 mg-1.33 mg/mL) oral liquid Take 10 mLs by mouth 3 times daily (before meals). No more than 8 dose per day>> First Mouth BLM mouth wash. Yes sucralfate (Carafate) 100 mg/mL Suspension Take 10 mLs by mouth 4 times daily as needed. Patient not taking: Reported on 05/18/2021 oxyCODONE (Roxicodone) 5 mg/5 mL Solution Take 5-10 mLs by mouth every 4 hours as needed for Pain. Patient not taking: Reported on 05/18/2021 benzonatate (Tessalon) 100 mg Capsule senna (Senokot) 8.6 mg Tablet Take 1 tablet by mouth 2 times daily. Patient not taking: No sig reported prochlorperazine (Compazine) 10 mg Tablet Take 1 tablet by mouth every 6 hours as needed for Nausea. Patient not taking: Reported on 05/18/2021 fentaNYL (Duragesic) 25 mcg/hr Patch 72 hr Change 1 patch on the skin every 3 days. Patient not taking: No sig reported calcium carbonate (Tums) 200 mg calcium (500 mg) Tablet, Chewable Take 1 tablet by mouth daily. nicotine (Nicoderm CQ) 21 mg/24 hr Patch 24 hr Change 1 patch on the skin daily. Patient not taking: Reported on 05/18/2021 emollient base (CREAM BASE TOP) Apply topically. [...] for Anxiety. Take prior to MRI Brain Patient not taking: No sig reported I reviewed the problem list, allergies, medications, [...] Encounters: 05/18/21 96 04/20/21 97 04/15/21 65 Body surface area is 2.2 meters squared. Wt Readings from Last 3 Encounters: 05/18/21 [...] Thought content normal. Review of Laboratory Data: 05/18/21- WBC-5.42 Hgb/Hct-10.4/32.0 Plt-272 ANC-4.03 Na-141 K+-3.5 [...] AM EDT Office Visit Hematology/Oncology at [address] [phone] Boy Tovar MD [facility] [address] H[place] [address] 10/17/2023 9:00 AM EDT Infusion Hematology Oncology at [address] [phone] documented as of this encounter Visit Diagnoses [...] gland documented in this encounter Care Teams Air Conditioning Supervisor Relationship Specialty Start Date End Date Nick Martinez MD [address] [place] [address] PCP - General Internal Medicine 07/01/18 documented as of this encounter
--- OUTSIDE RECORDS SUMMARY | 2023-10-17 04:01 | XMS_ITS | Encounter Summary ---
Author Organization [facility] [place] [address] Care Team Providers Care Data Warehousing Specialist Name Role Phone Nick Martinez MD Primary Care Provider [phone] Encounter Details Date Type Department Care Team (Late st Contact Info) Description 05/28/2021 Orders Only Hematology/Oncology at [address] [phone] Linda Zepeda, RN Social History [...] AM EDT Office Visit Hematology/Oncology at [address] [phone] Boy Tovar MD [facility] DR [place]EMAT[place] [address] 10/17/2023 9:00 AM EDT Infusion Hematology Oncology at [address] [phone] documented as of this encounter Visit Diagnoses Not on filedocumented in this encounter Care Teams Data Warehousing Specialist Relationship Specialty Start Date End Date Nick Martinez MD [address] [place] [address] PCP - General Internal Medicine 07/01/18 documented as of this encounter
--- OUTSIDE RECORDS SUMMARY | 2023-10-17 04:01 | XMS_ITS | Encounter Summary ---
Author Organization [facility] [place] [address] Care Team Providers Care Deputy Bailiff Name Role Phone Nick Martinez MD Primary Care Provider [phone] Encounter Details Date Type Department Care Team (Late st Contact Info) Description 04/13/2021 Notes Only Hematology/Oncology at [address] [phone] Azalea Watkins, [employer] OFFICE OF CARE MANAGEMENT Social History Tobacco [...] Progress Notes * Azalea Watkins MSW - 04/13/2021 9:09 AM EST Met with pt prior to his provider visit today. Pt brought in necessary docum,ents for his application to the [facility] for financial assistance with his mortgage. [employer] completed pt's application per his request and submitted it for consideration. Will notify pt outcome of his request. Financial resources Community Resource documented in this encounter Plan of Treatment Upcoming Encounters Date Type Department Care Team (Late st Contact Info) Description 10/17/2023 8:30 AM EDT Office Visit Hematology/Oncology at [address] [phone] Boy Tovar MD [facility] HEMATOLOGY [place] [address] 10/17/2023 9:00 AM EDT Infusion Hematology Oncology at [address] [phone] documented as of this encounter Visit Diagnoses Not on filedocumented in this encounter Care Teams Deputy Bailiff Relationship Specialty Start Date End Date Nick Martinez MD [address] [place] [address] PCP - General Internal Medicine 07/01/18 documented as of this encounter
--- OUTSIDE RECORDS SUMMARY | 2023-10-17 04:01 | XMS_ITS | Encounter Summary ---
Author Organization [facility] [place] [address] Care Team Providers Care Pie Filling Mixer Name Role Phone Nick Martinez MD Primary Care Provider [phone] Encounter Details Date Type Department Care Team (Late st Contact Info) Description 03/26/2021 Telephone Radiation Oncology at [address] [phone] Katelyn Em RN Social History [...] Telephone Encounter - Katelyn Em RN - 03/26/2021 10:03 AM EST Radiation Oncology Nurse Telephone Note [facility] [place], [place] 03/26/[address] Patient called with his concern of increased cough. Still no fever at home , but temp94 . He brought up concerns if thermometer is accurate. He saw Dr Ross yesterday and is aware that has recommended he get a COVID test, but he thinks this is pneumonia that he has had before that he should have antibiotics for. He denies coughing up any sputum . He states he has received the COVID vaccine , but not the booster yet. Dr Ross sent nursing Email message today stating he has had myalgia, increased cough and chills for a couple days and is recommending a COVID test. Intervention: recommended he go to ER for evaluation to r/u neutropenia and testing for COVID. He agreed to go to [facility] ER. I also explained that we will ask him to call our clinic when he arrives in the parking lot for hisdaily treatments. He confirms having a cell phone. I further explained the process of the radiation therapists meeting him in the main hallway and bypassing the receptionist secretary area and taking the back hallway directly to the treatment room. He agreed to this plan. Telephone report given to Judi at [facility] ( [facility]) ER [phone] recent clinic notes were faxed to them at [phone] 1:10 Dr Quiros from [facility] called stating they did lab and CXR no signs of neutropenia, pneumonia. They did do a COVID test with pending results. They will be discharging him from ER soon. I asked that he remind patient of the Instructions I gve him this morning of calling the clinic when he arrives in the parking lot so that we can show him where to go for the special precautions we need to take until we know his COVID status. He agreed. Approximately 2:30 : patient called from our clinic parking lot as directed. He was reminded that he will need to be treated with precautions until we know his COVID test results. He verbalized understanding of this. documented in this encounter Plan of Treatment Upcoming Encounters Date Type Department Care Team (Late st Contact Info) Description 10/17/2023 8:30 AM EDT Office Visit Hematology/Oncology at [address] [phone] Boy Tovar MD [facility] [place] [address] 10/17/2023 9:00 AM EDT Infusion Hematology Oncology at [address] [phone] documented as of this encounter Visit Diagnoses Not on filedocumented in this encounter Care Teams Pie Filling Mixer Relationship Specialty Start Date End Date Nick Martinez MD [address] [place] [address] PCP - General Internal Medicine 07/01/18 documented as of this encounter
--- OUTSIDE RECORDS SUMMARY | 2023-10-17 04:01 | XMS_ITS | Encounter Summary ---
[place] [address] Care Team Providers Care Site Project Manager Name Role Phone Nick Martinez MD Primary Care Provider Encounter Details Date Type Department Care Team (Late st Contact Info) Description 03/26/2021 12:05 AM EST Ancillary [place] [phone] Nick Martinez MD [address] [place] [address] Social History Tobacco Use Types [...] AM EDT Office Visit Hematology/Oncology at [address] [phone] Boy Tovar MD [facility] DR HEMATOLOGY [place] [address] 10/17/2023 9:00 AM EDT Infusion Hematology Oncology at [address] [phone] documented as of this encounter Procedures Procedure Name Priority Date/Time Associated Diagnosis Comments FILM LIBRARY STORAGE ONLY CT CHEST Routine 03/26/2021 12:05 AM EST documented in this encounter Results * Film Library- Storage Only CT Chest (03/26/2021 12:05 AM EST) Narrative [facility] - 04/10/2021 2:13 PM EST This exam is auto-finalizing. It's purpose is for storage only. Nick Martinez MD G FILM LIBRARY ORD ERABLES [facility] [place], [place] documented in this encounter Visit Diagnoses Not on filedocumented in this encounter Care Teams Site Project Manager Relationship Specialty Start Date End Date Nick Martinez MD [address] [place] [address] PCP - General Internal Medicine 07/01/18 documented as of this encounter
--- OUTSIDE RECORDS SUMMARY | 2023-10-17 04:01 | XMS_ITS | Encounter Summary ---
Author Organization [facility] [place] [address] Care Team Providers Care Production Utility Worker Name Role Phone Nick Martinez MD Primary Care Provider [phone] Reason for Visit * Reason Onset Date Comments Medication Refill 05/01/2021 BMX Encounter Details Date Type Department Care Team (Late st Contact Info) Description 05/01/2021 Refill Hematology/Oncology at [address] [phone] Boy Tovar MD [facility] [place] [address] Primary malignant neoplasm of right upper lobe [...] encounter Miscellaneous Notes * Telephone Encounter - Yoselyn Mann RN - 05/01/2021 3:17 PM EST ----- Message from Mckenna Swanson sent at 05/01/2021 3:00 PM EST ----- Raffy called asking for a refill on his diphenhydrAMINE/aluminum-magnesium hydroxide with simethicone/lidocaine (BMX) (6.67 mg-0.83 mg-13.33 mg-1.33 mg/mL) oral liquid prescription. Could someone help with that when time allows and he would appreciate a call back once that is done at [phone]. Thanks Mckenna documented in this encounter Plan of Treatment Upcoming Encounters Date Type Department Care Team (Late st Contact Info) Description 10/17/2023 8:30 AM EDT Office Visit Hematology/Oncology at [address] [phone] Boy Tovar MD [facility] HEMATOLOGY AND ONCOLOGY [place] [phone] 10/17/2023 9:00 AM EDT Infusion Hematology Oncology at [address] [phone] documented as of this encounter Visit Diagnoses [...] gland documented in this encounter Care Teams Production Utility Worker Relationship Specialty Start Date End Date Nick Martinez MD [address] [place] [address] PCP - General Internal Medicine 07/01/18 documented as of this encounter
--- OUTSIDE RECORDS SUMMARY | 2023-10-17 04:01 | XMS_ITS | Encounter Summary ---
Author Organization [facility] [place] [address] Care Team Providers Care Plant Anatomy Teacher Name Role Phone Nick Martinez MD Primary Care Provider [phone] Encounter Details Date Type Department Care Team (Late st Contact Info) Description 03/30/2021 Telephone Radiation Oncology at [address] [phone] Alyssa Brar, RN Social History [...] Telephone Encounter - Alyssa Brar RN - 03/30/2021 1:56 PM EST Telephone call to patient to let him know that refill BMX sent to [facility] pharmacy by Dr. Ross. Patient response-Thank you and thank you for letting me know. * Telephone Encounter - Alyssa Brar RN - 03/30/2021 12:55 PM EST Telephone call to patient to let him know that prescription for oxycodone has been sent in for him.Instructed regarding dosing and side effects of drowsiness cautioning that it can impair ability todrive and operate machinery. Also instructed regarding side effect of constipation. He states that currently his tendency is toward softer stools but would take stool softeners/laxatives as needed. He plans to pickers material handlers this afternoon. He questions if will need BMX/carafate while taking oxycodone. I instructed that ok to take together as needed to improve comfort level. He verbalized good understanding of this. Reports that he did pickers material handlers the refill of BMX which is almost half gone so will need refills of this medication sent to [facility] pharmacy. I let him know that I will update his providers regarding need for refill BMX. documented in this encounter Plan of Treatment Upcoming Encounters Date Type Department Care Team (Late st Contact Info) Description 10/17/2023 8:30 AM EDT Office Visit Hematology/Oncology at [address] [phone] Boy Tovar MD [facility] DR HEMATOLOGY [place] [address] 10/17/2023 9:00 AM EDT Infusion Hematology Oncology at [address] [phone] documented as of this encounter Visit Diagnoses Not on filedocumented in this encounter Care Teams Plant Anatomy Teacher Relationship Specialty Start Date End Date Nick Martinez MD [address] [place] [address] PCP - General Internal Medicine 07/01/18 documented as of this encounter
--- OUTSIDE RECORDS SUMMARY | 2023-10-17 04:01 | XMS_ITS | Encounter Summary ---
Author Organization [facility] [place] [address] Care Team Providers Care Highway Safety Engineer Name Role Phone Nick Martinez MD Primary Care Provider [phone] Encounter Details Date Type Department Care Team (Late st Contact Info) Description 06/08/2021 Refill Hematology/Oncology at [address] [phone] Linda Zepeda, RN Social History [...] AM EDT Office Visit Hematology/Oncology at [address] [phone] Boy Tovar MD [facility] DR [place]EMATOLOGY [place] [address] 10/17/2023 9:00 AM EDT Infusion Hematology Oncology at [address] [phone] documented as of this encounter Visit Diagnoses Not on filedocumented in this encounter Care Teams Highway Safety Engineer Relationship Specialty Start Date End Date Nick Martinez MD [address] [place] [address] PCP - General Internal Medicine 07/01/18 documented as of this encounter
--- OUTSIDE RECORDS SUMMARY | 2023-10-17 04:01 | XMS_ITS | Encounter Summary ---
Author Organization [facility] [place] [address] Care Team Providers Care Application Engineer Name Role Phone Nick Martinez MD Primary Care Provider [phone] Encounter Details Date Type Department Care Team (Late st Contact Info) Description 05/18/2021 Notes Only Hematology/Oncology at [address] [phone] Azalea Watkins, TRAFFIC OFFICER OFFICE OF CARE MANAGEMENT Social History Tobacco [...] Progress Notes * Azalea Watkins MSW - 05/18/2021 3:12 PM EDT Follow up with pt during his infusion visit today. Pt did get the message that the [employer] assisted himwith $650 towards his mortgage. Pt pleased with the assistance. Pt indicated he is back to work which helps the household income. Pt did not identify any new needs today. Offered support. TRAFFIC OFFICER will continue as a resource. Financial resources documented in this encounter Plan of Treatment Upcoming Encounters Date Type Department Care Team (Late st Contact Info) Description 10/17/2023 8:30 AM EDT Office Visit Hematology/Oncology at [address] [phone] Boy Tovar MD [facility] [place] [address] 10/17/2023 9:00 AM EDT Infusion Hematology Oncology at [address] [phone] documented as of this encounter Visit Diagnoses Not on filedocumented in this encounter Care Teams Application Engineer Relationship Specialty Start Date End Date Ncik Martinez MD [address] [place] [address] PCP - General Internal Medicine 07/01/18 documented as of this encounter
--- OUTSIDE RECORDS SUMMARY | 2023-10-17 04:01 | XMS_ITS | Encounter Summary ---
Author Organization [facility] [place] [address] Care Team Providers Care Access Analyst Name Role Phone Nick Martinez MD Primary Care Provider [phone] Encounter Details Date Type Department Care Team (Late st Contact Info) Description 04/02/2021 Orders Only [place] [address] Parker Ross MD [facility] [place] [address] Social History Tobacco Use Types Packs/Day Years [...] AM EDT Office Visit Hematology/Oncology at [address] [phone] Boy Tovar MD [facility] DR [place] [address] 10/17/2023 9:00 AM EDT Infusion Hematology Oncology at [address] [phone] documented as of this encounter Visit Diagnoses Not on filedocumented in this encounter Care Teams Access Analyst Relationship Specialty Start Date End Date Nick Martinez MD [address] [place] [address] PCP - General Internal Medicine 07/01/18 documented as of this encounter
--- OUTSIDE RECORDS SUMMARY | 2023-10-17 04:01 | XMS_ITS | Encounter Summary ---
[place] [address] Care Team Providers Care Pharmacy Technician Name Role Phone Nick Martinez MD Primary Care Provider Encounter Details Date Type Department Care Team (Late st Contact Info) Description 03/26/2021 Ancillary Procedure [place] [address] Nick Martinez MD [address] [place] [address] Social History Tobacco Use Types [...] AM EDT Office Visit Hematology/Oncology at [address] [phone] Boy Tovar MD [facility] DR HEMATOLOGY AND ONCOLOGY [place] [phone] 10/17/2023 9:00 AM EDT Infusion Hematology Oncology at [address] [phone] documented as of this encounter Procedures Procedure Name Priority Date/Time Associated Diagnosis Comments FILM LIBRARY STORAGE ONLY DX CHEST Routine 03/26/2021 12:00 AM EST documented in this encounter Results * Film Library- Storage Only DX Chest (03/26/2021 12:00 AM EST) Narrative JASON FAY - 04/10/2021 2:10 PM EST This exam is auto-finalizing. It's purpose is for storage only. Nick Martinez MD IMG FILM LIBRARY ORD ERABLES [facility] [place], [place] documented in this encounter Visit Diagnoses Not on filedocumented in this encounter Care Teams Pharmacy Technician Relationship Specialty Start Date End Date Nick Martinez MD [address] [place] [address] PCP - General Internal Medicine 07/01/18 documented as of this encounter
--- OUTSIDE RECORDS SUMMARY | 2023-10-17 04:01 | XMS_ITS | Encounter Summary ---
Author Organization [facility] [place] [address] Care Team Providers Care Filbert Grower Name Role Phone Nick Martinez MD Primary Care Provider [phone] Encounter Details Date Type Department Care Team (Late st Contact Info) Description 03/28/2021 Telephone Hematology [place] [address] Ashly Carlisle MD [facility] DR HEMATOLOGY/[place] [address] Social History Tobacco Use Types Packs/Day Years [...] slept in a jail (including now)? No 02/04/2021 Sex and Gender Information Value Date Recorded Sex Assigned at Not on file Gender Identity Not on file Sexual Orientation Not on file documented as of this encounter Miscellaneous Notes * Telephone Encounter - Ashly Carlisle - 03/28/2021 9:24 AM EST Reason for call: Evelyn is calling as Raffy has nose bleed and coughing up blood. Raffy Latif is a 60 y.o. 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 He was testedpositive for COVID-19 yesterday. He has sore throat but no fever. Has some chills and cough. This morning he started coughing up blood. Soon after he developed nose bleeding. His breathing feels heavy but no chest pain. He has no dizziness, Lightheadedness. No prior history of hemoptysis but has had nose bleed before. Recommendations: Most likely etiology is epistaxis and probably he is coughing up that blood as well. He may be Thrombocytopenic from chemo +/- COVID-19 infections as well. I recommended ot be evaluated in the ER. Mackenzie go to ER at [facility]. Ashly Carlisle MD, MS Hematology/Medical Oncology Fellow [facility] Page # [phone] 03/28/21, 9:36 AM documented in this encounter Plan of Treatment Upcoming Encounters Date Type Department Care Team (Late st Contact Info) Description 10/17/2023 8:30 AM EDT Office Visit Hematology/Oncology at [address] [phone] Boy Tovar MD [facility] DR HEMATOLOGY [place] [address] 10/17/2023 9:00 AM EDT Infusion Hematology Oncology at [address] [phone] documented as of this encounter Visit Diagnoses Not on filedocumented in this encounter Care Teams Filbert Grower Relationship Specialty Start Date End Date Nick Martinez MD [address] [place] [address] PCP - General Internal Medicine 07/01/18 documented as of this encounter
--- OUTSIDE RECORDS SUMMARY | 2023-10-17 04:01 | XMS_ITS | Encounter Summary ---
Author Organization Formerly [facility] [place] [address] Care Team Providers Care Celluloid Trimmer Name Role Phone Nick Martinez MD Primary Care Provider [phone] Encounter Details Date Type Department Care Team (Late st Contact Info) Description 04/06/2021 8:30 AM EST Office Visit Hematology/Oncology at [address] [phone] Linda Zepeda, RN Primary malignant [...] Sign Reading Time Taken Comments Blood Pressure 122/75 04/06/2021 8:17 AM EST Pulse 102 04/06/2021 8:17 AM EST Temperature 36.8 ??C (98.2 ??F) 04/06/2021 8:17 AM ES T Respiratory Rate 18 04/06/2021 8:17 AM EST Oxygen Saturation 99% 04/06/2021 8:17 AM EST Inhaled Oxygen Concentration - - Weight 101.9 kg (224 lb 11.2 oz) 04/06/2021 8:26 AM EST Height 179.1 cm (5' 10.51) 04/06/2021 8:[address] Body Mass Index 31.77 04/06/2021 8:17 AM EST documented in this encounter Progress Notes * Linda Zepeda, WAREHOUSE DISTRIBUTION ASSOCIATE - 04/06/2021 8:30 AM EST Images from the original note were not included. Hematology & Medical Oncology [address] [address] Raffy Latif is being seen [...] and toxicities reviewed and are adequate for treatment today. Raffy tested positive for COVID on 03/23. He did not have any fevers but had flu like symptoms. He is vaccinated. He is feeling fine today. He would like to go ahead with his chemotherapy since hemissed last week. # Esophageal Pain- he is on a fentanyl patch and using oxycodone 5mg for breakthrough pain. Pain isbetter controlled now and he is able to eat and drink. He is using BMX after eating which works thebest for him. # Bowel Regimen- not taking any stool softeners or laxatives with pain medication. Given a prescription for Senekot to take once or twice a day as needed. He has had some mild constipation. Plan: -Labs and toxicities assessed and acceptable for ongoing treatment. Complete weekly Carbo/Taxol today as scheduled. Final RT scheduled for 04/08. -Tobacco cessation- continue nicotine patch strength at 21mg - Continue carafate with BMX for his dysphagia. Prescriptions renewed. - Prescription written for Senekot twice daily. - Give 1 liter NS today with treatment. - RTC in 1 week with CBC,CMP. Mr. Latif voiced understanding of the plan and was given an opportunity to ask questions which I answered to the best of my ability. Mr. Latif understands he can call the clinic between visits with any questions/concerns or new symptoms. Linda Zepeda MSN, WAREHOUSE DISTRIBUTION ASSOCIATE, AOCNP Medical Oncology HPI/Interval History/Subjective: (04/06/21) Mr. Latif returns today to continue treatment. No fevers, chills. He did test positive for COVID but it has been 10 days since he developed symptoms. He had flu like symptoms. He still has an occasional cough. No hemoptysis. He states he feels pretty good today. He does have esophageal painwhen swallowing. He is on a Fentanyl patch and using oxycodone for breakthrough pain. He also uses t he BMX/carafate as needed. He is having occasional bouts of nausea which is relieved with compazine. No vomiting or diarrhea. He has had some mild constipation. No changes in his breathing. He is using a oximeter at home to monitor his oxygen levels. O2 sat today 99%. Appetite is fair. It is difficult for him to find foods to eat that don't cause pain to swallow. He had some chop suey over the weekend which went down really well. He admits he is not drinking as much as he should No other focal complaints today. Social History/Support Network: Home situation: Lives with in [facility] with Velvet. 35 years. 3 children and plan to adopt another one through foster care. 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 38 [...] ONCBCN ONCOLOGY (AMB) 03/02/2021 03/09/2021 03/16/2021 03/23/2021 Day, Cycle Day 1, Cycle 1 Day 8, Cycle 1 Day 15, Cycle 1 Day 22, Cycle 1 CARBOplatin (Paraplatin) IV 252 mg 252 mg 252 mg 252 mg PACLitaxeL (Taxol) IV 50 mg/m2/dose = 118 mg 50 mg/m2/dose = 118 mg 50 mg/m2/dose = 118 mg 50 mg/m2/dose = 118 mg Patient Active Problem List Diagnosis Date Noted ??? Primary malignant 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 01/08/2021 Allergies Allergen Reactions ??? Penicillins Nausea Only Medications 04/06/21 0919 Medication Sig Taking? benzonatate (Tessalon) 100 mg Capsule Yes diphenhydrAMINE/aluminum-magnesium hydroxide with simethicone/lidocaine (BMX) (6.67 mg-0.83 mg-13.33 mg-1.33 mg/mL) oral liquid Take 10 mLs by mouth 3 times daily (before meals). No more than 8 dose per day>> First Mouth BLM mouth wash. Yes prochlorperazine (Compazine) 10 mg Tablet Take 1 tablet by mouth every 6 hours as needed for Nausea. Yes fentaNYL (Duragesic) 25 mcg/hr Patch 72 hr Change 1 patch on the skin every 3 days. Yes oxyCODONE (Roxicodone) 5 mg/5 mL Solution Take 5-10 mLs by mouth every 4 hours as needed for Pain. Yes calcium carbonate (Tums) 200 mg calcium (500 mg) Tablet, Chewable Take 1 tablet by mouth daily. Yes emollient base (CREAM BASE TOP) Apply topically. Remedy Phytoplex Moisturizer. Apply to area of radiation twice a day but no less than 2 hours before a treatment. Yes UNABLE TO FIND Take 500 mg by mouth. Vitamin B17 Yes acetaminophen (Tylenol) 500 mg Tablet Take 1,000 mg by mouth every 6 hours as needed for Pain. Yes sucralfate (Carafate) 100 mg/mL Suspension Take 10 mLs by mouth 4 times daily as needed. senna (Senokot) 8.6 mg Tablet Take 1 tablet by mouth 2 times daily. nicotine (Nicoderm CQ) 21 mg/24 hr Patch 24 hr Change 1 patch on the skin daily. Patient not taking: Reported on 04/01/2021 LORazepam (Ativan) 0.5 mg Tablet Take 1 tablet by mouth as needed for Anxiety. Take prior to MRI Brain Patient not taking: Reported on 03/25/2021 I reviewed the problem list, allergies, medications, past medical history, social history and family history within the EPIC encounter. Pertinent details are noted above. Pertinent positives and negative from the Review of Systems are as summarized above in the HPI. Physical Exam: Wt Readings from Last 3 Encounters: 04/06/21 101.9 kg (224 lb 11.2 oz) 04/01/21 105.5 kg (232 lb 9.6 oz) 03/25/21 107.8 kg (237 lb 9.6 oz) Temp Readings from Last 3 Encounters: 04/06/21 36.8 ??C (98.2 ??F) (Temporal) 04/01/21 36.1 ??C (96.9 ??F) (Temporal) 03/25/21 36 ??C (96.8 ??F) (Temporal) BP Readings from Last 3 Encounters: 04/06/21 122/75 04/01/21 116/78 03/25/21 118/69 Pulse Readings from Last 3 Encounters: 04/06/21 (!) 102 04/01/21 (!) 125 03/25/21 96 Body surface area is 2.25 meters squared. Wt Readings from Last 3 Encounters: 04/06/21 101.9 kg (224 lb 11.2 oz) 04/01/21 105.5 kg (232 lb 9.6 oz) 03/25/21 107.8 kg (237 lb 9.6 oz) KPS Score ECOG Grade [...] Thought content normal. Review of Laboratory Data: 04/06/21- WBC-5.27 Hgb/Hct-10.6/30.6 Plt-210 ANC-4.20 Na-134 K+-3.8 [...] encounter Miscellaneous Notes * Addendum Note - Linda Zepeda APRN - 04/06/2021 8:30 AM ESTAddended by: LINDA ZEPEDA on: 04/06/2021 11:52 AM Modules accepted: Orders documented in this encounter Plan of Treatment Upcoming Encounters Date Type Department Care Team (Late st Contact Info) Description 10/17/2023 8:30 AM EDT Office Visit Hematology/Oncology at [address] [phone] Boy Tovar MD [facility] DR HEMATOLOGY AND ONCOLOGY [place] [phone] 10/17/2023 9:00 AM EDT Infusion Hematology Oncology at [address] [phone] documented as of this encounter Results * Request For 2nd Read CT Chest (04/11/2021 12:14 AM EST) Anatomical Region Laterality Modality Chest SO Impressions 04/11/2021 8:42 AM EST 1. ??Decreased size of medial segment right middle lobe mass, now with areas of cavitation. 2. ??Minimal residual small nodular opacities in lateral segment of right middle lobe. 3. ??No new pulmonary findings. 4. ??Decreased right hilar lymph node enlargement. 5. ??Small pancreatic hypodensities, not appreciably changed going back to 2019, most compatible with side-branch IPMNs. Thank you for letting us participate in the care of this patient. ??If you are a health care provider and have any questions regarding this report, please contact the number below. ??For patients who have questions please contact the health rn complex care that requested your imaging first. ? Electronically signed by: Yoana Patel MD, [facility] ([phone]), at 04/11/2021 8:42 AM Narrative 04/11/2021 8:42 AM EST EXAMINATION: REQUEST FOR 2ND READ CT CHEST CLINICAL HISTORY: Stage III C lung cancer- CT of chest done at outside hospital for ED visit for Covid + ??symptoms - currently getting concurrent RT/chemotherapy, Compare CT to previous films- NM PET scan done on 01/19/21, CT chest done on 12/15/20 CT in Rad on 02/11/21; Sending Institution [facility]; Date of exam [id number]; I believe a reinterpretation of this exam may alter care of Patient. Yes TECHNIQUE: Axial contiguous sections were obtained of the chest via helical acquisition after intravenous administration of Omnipaque 350 at [facility] on 03/26/2021. Coronal and sagittal reconstructions were generated. COMPARISON: 02/23/[address], as [...] gynecomastia unchanged. Skeletal structures: No new findings. Procedure Note Yoana Patel MD - 04/11/2021 EXAMINATION: REQUEST FOR 2ND READ CT CHEST CLINICAL HISTORY: Stage III C lung cancer- CT of chest done at outsidehospital for ED visit for Covid + symptoms - currently getting concurrent RT/chemotherapy, Compare CT to previous films- NM PET scan done on01/19/21, CT chest done on 12/15/20 CT in Rad on 02/11/21; Sending Institution [facility];Date of exam [id number]; I believe a reinterpretation of this exam may alter careof Patient. Yes TECHNIQUE: Axial contiguous sections were obtained of the chest viahelical acquisition [facility]. Coronal and sagittalreconstructions were generated. COMPARISON: 02/23/[address], as well as otherprior studies. FINDINGS: Pulmonary parenchyma: Image blurring from respiratory motion. Unchanged 6mm nodule at the left apex on series 7 image 73. Medial segment right middlelobe mass smaller, approximately 19 mm, with areas of cavitation, see series 7images 288-306. Minimal residual previously seen small nodular opacities in thelateral segment of right middle lobe. No new parenchymal findings. Airways: No new findings. Pleura: No pleural effusion. Lymph nodes:Lower right hilar lymph node, 8 mm in short axis on series 5image 31, decreased from 10 mm on series 2 image 110 of prior. Other mediastinaland hilar lymph nodes also similar to slightly smaller. No interval lymphnode enlargement. Heart, pericardium, and great vessels: No central pulmonary arterialfilling defects or other significant interval findings. Other mediastinal structures: Very small hiatal hernia, unchanged. Lower neck: No new findings. Upper abdomen: A few hypodensities of the body and tail of the pancreas,ranging in size from 7 to 13 mm, not appreciably changed going back to 05/26/2018,and non-FDG avid on 01/07/2021 PET/CT. Body wall soft tissues: Minimal bilateral gynecomastia unchanged. Skeletal structures: No new findings. IMPRESSION 1. Decreased size of medial segment right middle lobe mass, now withareas of cavitation. 2. Minimal residual small nodular opacities in lateral segment of rightmiddle lobe. 3. No new pulmonary findings. 4. Decreased right hilar lymph node enlargement. 5. Small pancreatic hypodensities, not appreciably changed going back [id number], most compatible with side-branch IPMNs. Thank you for letting us participate in the care of this patient. If youare a health care provider and have any questions regarding this report,please contact the number below. For patients who have questions please contactthe health rn complex care that requested your imaging first. Linda Zepeda RN IMG OUTSIDE INTERPRE TATION ORDERABLES documented in this encounter Visit Diagnoses [...] gland documented in this encounter Care Teams Celluloid Trimmer Relationship Specialty Start Date End Date Nick Martinez MD [address] [place] [address] PCP - General Internal Medicine 07/01/18 documented as of this encounter
--- OUTSIDE RECORDS SUMMARY | 2023-10-17 04:01 | XMS_ITS | Encounter Summary ---
Author Organization Formerly [facility] [place] [address] Care Team Providers Care Program Manager Slp Name Role Phone Nick Martinez MD Primary Care Provider [phone] Encounter Details Date Type Department Care Team (Late st Contact Info) Description 03/23/2021 Notes Only Hematology/Oncology at [address] [phone] Azalea Watkins, NATIONAL COVERAGE SPECIALIST OFFICE OF CARE MANAGEMENT Social History Tobacco [...] Progress Notes * Azalea Watkins MSW - 03/23/2021 9:33 AM EST Follow up with pt during his infusion visit today. He reports his treatments are going fairly well.He continues to work a much as he can. He realizes as his treatments go on he may need to take sometime off. His continues to work. Pt talked about his young foster daughter and how she is doing. They are proceeding with adoption. He indicated she keeps him going. Offered support. Pt did not identify any new needs today. Reminded pt of NATIONAL COVERAGE SPECIALIST availability and contact information. Will continue to follow. documented in this encounter Plan of Treatment Upcoming Encounters Date Type Department Care Team (Late st Contact Info) Description 10/17/2023 8:30 AM EDT Office Visit Hematology/Oncology at [address] [phone] Boy Tovar MD [facility] HEMATOLOGY [place] [address] 10/17/2023 9:00 AM EDT Infusion Hematology Oncology at [address] [phone] documented as of this encounter Visit Diagnoses Not on filedocumented in this encounter Care Teams Program Manager Slp Relationship Specialty Start Date End Date Nick Martinez MD [address] [place] [address] PCP - General Internal Medicine 07/01/18 documented as of this encounter
--- OUTSIDE RECORDS SUMMARY | 2023-10-17 04:01 | XMS_ITS | Encounter Summary ---
Author Organization [facility] [place] [address] Care Team Providers Care Electric Serviceman Name Role Phone Nick Martinez MD Primary Care Provider Encounter Details Date Type Department Care Team (Late st Contact Info) Description 04/01/2021 3:30 PM EST Office Visit Radiation Oncology at [address] [phone] Parker Ross MD [facility] [place] [address] Primary malignant neoplasm of right upper lobe [...] Sign Reading Time Taken Comments Blood Pressure 116/78 04/01/2021 3:08 PM EST Pulse 125 04/01/2021 3:08 PM EST Temperature 36.1 ??C (96.9 ??F) 04/01/2021 3:01 PM ES T Respiratory Rate 18 04/01/2021 3:01 PM EST Oxygen Saturation 97% 04/01/2021 3:01 PM EST Inhaled Oxygen Concentration - - Weight 105.5 kg (232 lb 9.6 oz) 04/01/2021 3:08 PM EST Height - - Body Mass Index 32.89 03/23/2021 8:02 AM EST documented in this encounter Progress Notes * Parker Ross MD - 04/01/2021 3:30 PM EST ON TREATMENT VISIT NOTE Raffy Latif is a 60 y.o. male with cT1cN3 (Stage III-C) non-small cell lung cancer (adenocarcinoma). Definitive chemoradiotherapy. Current treatment dose: 50 Gy in 25 fractions. Anticipated total dose: 60 Gy in 30 fractions. Concomitant Therapy: Y ONC BCA CHEMO (AMB) 03/02/2021 03/09/2021 03/16/2021 Day, Cycle Day 1, Cycle 1 Day 8, Cycle 1 Day 15, Cycle 1 CARBOplatin (Paraplatin) IV 252 mg 252 mg 252 mg PACLitaxeL (Taxol) IV 50 mg/m2/dose 50 mg/m2/dose 50 mg/m2/dose ONC BCA CHEMO (AMB) 03/23/2021 Day, Cycle Day 22, Cycle 1 CARBOplatin (Paraplatin) IV 252 mg PACLitaxeL (Taxol) IV 50 mg/m2/dose Evaluation of Port Verification Films: PORT films have been reviewed, please see ARIA for details. Changes in medical condition Pain: Pain midline / right chest, most prominent with swallowing, on 5-10 mg oxycodone every 4-6 hours, but insufficient control. Limited by nausea associated with 10 mg of oxycodone. Dyspnea/Cough: no issues, cough resolved. GI: -N/V: minimal nausea unless he takes 10 mg oxycodone, has compazine -Bowels: no issues Esophagitis: Significant pain with swallowing: BMX / Carafate. Pain control as per above. Smoking: chewing tobacco down on nicotine Other: diagnosed with COVID, chemo held, on COVID precautions. Nutrition Assessment: Weight : 113 kg initial Change: 107.7 = > 105.5 Objective: Vitals: 04/01/21 1501 04/01/21 1508 BP: 121/74 116/78 Patient Position: Sitting Pulse: (!) 109 (!) 125 Resp: 18 Temp: 36.1 ??C (96.9 ??F) TempSrc: Temporal SpO2: 97% Weight: 105.5 kg (232 lb 9.6 oz) 105.5 kg (232 lb 9.6 oz) SKIN: no skin erythema LUNGS: CTAB no w/r/r Assessment: COVID. Significant esophagitis with weight loss, BMX / carafate mildly helpful. Unable to take 10 mg oxycodone due to associated nausea. CTCAE TOXICITY GRADES (see below for mcmahon): Site Grade Skin 0 Cough 1 Dyspnea 0 Esophagitis 0 TREATMENT RESPONSE: No change Plan: ?? Continue RT per prescription ?? Skin: Jeans cream QD ?? Pain control: ?? ADD Fentanyl 25 mcg given pain needs ?? Oxycodone 5 mg prn ?? Esophagitis: ?? Carafate ?? BMX prn ?? Cough/Dyspnea: No intervention needed at this time ?? Alimentation: followed by consumer marketing specialist, weight loss , all by mouth ?? COVID precautions CTCAE v4.03 scales for reference Skin 0 [...] AM EDT Office Visit Hematology/Oncology at [address] [phone] Boy Tovar MD [facility] [address] [place] [address] 10/17/2023 9:00 AM EDT Infusion Hematology Oncology at [address] [phone] documented as of this encounter Visit Diagnoses [...] gland documented in this encounter Care Teams Electric Serviceman Relationship Specialty Start Date End Date Nick Martinez MD [address] [place] [address] PCP - General Internal Medicine 07/01/18 documented as of this encounter
--- OUTSIDE RECORDS SUMMARY | 2023-10-17 04:01 | XMS_ITS | Encounter Summary ---
Author Organization [facility] [place] [address] Care Team Providers Care Stenographer Print Shop Name Role Phone Nick Martinez MD Primary Care Provider [phone] Encounter Details Date Type Department Care Team (Late st Contact Info) Description 03/25/2021 5:15 PM EST Office Visit Radiation Oncology at [address] [phone] Parker Ross MD [facility] [place] [address] Primary malignant neoplasm of right upper lobe [...] Sign Reading Time Taken Comments Blood Pressure 118/69 03/25/2021 4:20 PM EST Pulse 96 03/25/2021 4:20 PM EST Temperature 36 ??C (96.8 ??F) 03/25/2021 4:2 0 PM EST Respiratory Rate 18 03/25/2021 4:20 PM EST Oxygen Saturation 98% 03/25/2021 4:2 0 PM EST Inhaled Oxygen Concentration - - Weight 107.8 kg (237 lb 9.6 oz) 022 4:20 PM EST with shoes Height - - Body Mass Index 33.6 03/23/2021 8:02 AM EST documented in this encounter Progress Notes * Parker Ross MD - 03/25/2021 5:15 PM EST ON TREATMENT VISIT NOTE Raffy Latif is a 60 y.o. male with cT1cN3 (Stage III-C) non-small cell lung cancer (adenocarcinoma). Definitive chemoradiotherapy. Current treatment dose: 40 Gy in 20 fractions. Anticipated total dose: 60 Gy in [...] for details. Changes in medical condition Pain: low neck pain has resolved Dyspnea/Cough: notes onset of a cough, non-productive, over the past few days. He notes no increasein dyspnea. GI: -N/V: minimal nausea, has compazine -Bowels: no issues Esophagitis: occasional irritation when swallowing. Mild. Using carafate to good effect. BMX prn Smoking: chewing tobacco down on nicotine Other: he notes onset of myalgias, a slight cough, chills over the past few days. He has been taking tylenol, and notes no verónica fevers. Nutrition Assessment: Weight : 113 kg initial Change: 110.2 = > 107.7 Objective: Vitals: 03/25/21 1620 BP: 118/69 Patient Position: Sitting Pulse: 96 Resp: 18 Temp: 36 ??C (96.8 ??F) TempSrc: Temporal SpO2: 98% Weight: 107.8 kg (237 lb 9.6 oz) SKIN: no skin erythema LUNGS: CTAB no w/r/r Assessment: Minimal toxicity from radiotherapy. Concern for intercurrent infection, will need to rule out COVID. CTCAE TOXICITY GRADES (see below for mcmahon): Site Grade Skin 0 Cough 1 1 0 Esophagitis 0 TREATMENT RESPONSE: No change Plan: ?? Continue RT per prescription ?? Skin: Jeans cream QD ?? Pain control: no intervention needed at this time ?? Esophagitis: ?? Carafate ?? BMX prn ?? Cough/Dyspnea: No intervention needed at this time ?? Alimentation: followed by issue clerk, weight stable, all by mouth ?? Concern for COVID, rule out. CTCAE v4.03 scales for reference Skin 0 [...] AM EDT Office Visit Hematology/Oncology at [address] [phone] Boy Tovar MD [facility] [address] HEMATOLOGY [place] [address] 10/17/2023 9:00 AM EDT Infusion Hematology Oncology at [address] [phone] documented as of this encounter Visit Diagnoses [...] gland documented in this encounter Care Teams Stenographer Print Shop Relationship Specialty Start Date End Date Nick Martinez MD [address] [place] [address] PCP - General Internal Medicine 07/01/18 documented as of this encounter
--- OUTSIDE RECORDS SUMMARY | 2023-10-17 04:01 | XMS_ITS | Encounter Summary ---
Author Organization [facility] [place] [address] Care Team Providers Care Head Boys Golf Coach Name Role Phone Nick Martinez MD Primary Care Provider [phone] Reason for Visit * Reason Onset Date Comments Other 05/06/2021 Financial resour rosie Encounter Details Date Type Department Care Team (Late st Contact Info) Description 05/06/2021 Telephone Hematology/Oncology at [address] [phone] Azalea Watkins, ODD BUNDLE WORKER OFFICE OF CARE MANAGEMENT Other (Financial resources) Social History Tobacco Use Types Packs/Day Years [...] encounter Miscellaneous Notes * Telephone Encounter - Azalea Watkins MSW - 05/06/2021 3:16 PM EST Received notification that the [employer] approved pt's application and assisted him with $650 towards a mortgage payment. TC pt to notify. No answer but left message for pt to call back. Care Coordination Financial resources documented in this encounter Plan of Treatment Upcoming Encounters Date Type Department Care Team (Late st Contact Info) Description 10/17/2023 8:30 AM EDT Office Visit Hematology/Oncology at [address] [phone] Boy Tovar MD [facility] [place] [address] 10/17/2023 9:00 AM EDT Infusion Hematology Oncology at [address] [phone] documented as of this encounter Visit Diagnoses Not on filedocumented in this encounter Care Teams Head Boys Golf Coach Relationship Specialty Start Date End Date Nick Martinez MD [address] [place] [address] PCP - General Internal Medicine 07/01/18 documented as of this encounter
--- OUTSIDE RECORDS SUMMARY | 2023-10-17 04:01 | XMS_ITS | Encounter Summary ---
Author Organization [facility] [place] [address] Care Team Providers Care Rectifying Operator Name Role Phone Nick Martinez MD Primary Care Provider [phone] Reason for Visit * Reason Comments Chemotherapy Cycle 1, Day 1 - Dur valumab * Treatment/Therapy Plan Authorization (Routine) - Closed Specialty Diagnoses / Procedures Referred By Contmilagro t Referred To Contact Hematology and Oncology Diagnoses Primary malignant 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 Procedures [id number] Boy [place] MD [facility] [address] [place] [address] Boy Tovar MD [address] [place] [address] [place] [address] Referral ID Status Reason Start Date Expiration Date Visits Re quested Visits Authorized [id number] Closed 11/05/2021 11/05/2022 99 99 Encounter Details Date Type Department Care Team (Late st Contact Info) Description 04/20/2021 9:30 AM EST Infusion Hematology Oncology at [address] [phone] Primary malignant neoplasm of right upper lobe [...] Sign Reading Time Taken Comments Blood Pressure 125/82 04/20/2021 9:16 AM EST Pulse 97 04/20/2021 9:16 AM EST Temperature 36.4 ??C (97.5 ??F) 04/20/2021 9:16 AM ES T Respiratory Rate 18 04/20/2021 9:16 AM EST Oxygen Saturation 98% 04/20/2021 9:16 AM EST Inhaled Oxygen Concentration - - Weight 98.2 kg (216 lb 9.6 oz) 04/20/2021 9:16 A M EST Height 179.1 cm (5' 10.51) 04/20/2021 9:[address] Body Mass Index 30.63 04/20/2021 9:16 AM EST documented in this encounter Progress Notes * Ginette Freeman RN - 04/20/2021 9:30 AM EST INFUSION THERAPY ADMINISTRATION NOTES DIAGNOSIS: NSCLC CYCLE #: Cycle 1, Day 1 - Durvalumab REASON FOR VISIT: To receive first cycle of immunotherapy. SUBJECTIVE: Raffy offers no complaints. He is starting to experience some dysphagia. OBJECTIVE: Ready to treat. LAB DATA: 04/20/21 - WBC - 2.99, H/H - 11.2/33.3, Plt Ct - 242, ANC - 2.22, Lytes wnl, BUN/CR - 11/1.2, MG++ - 2.2 IV ACCESS: PIV Pre administration: Chemotherapy orders [...] AM EDT Office Visit Hematology/Oncology at [address] [phone] Boy Tovar MD [facility] [place] [address] 10/17/2023 9:00 AM EDT Infusion Hematology Oncology at [address] [phone] documented as of this encounter Visit Diagnoses [...] 1,500 mg, Intravenous, ONCE, 1 dose, On 04/20/21 at 1000, Administer over 60 Minutes, This agent is restricted to outpatient use. Is this drug being given as an outpatient? Yes New Bag 04/20/2021 10:11 AM EST 1,500 mg 28 0 mL/hr documented in this encounter Care Teams Rectifying Operator Relationship Specialty Start Date End Date Nick Martinez MD [address] [place] [address] PCP - General Internal Medicine 07/01/18 documented as of this encounter
--- OUTSIDE RECORDS SUMMARY | 2023-10-17 04:01 | XMS_ITS | Encounter Summary ---
Author Organization [facility] [place] [address] Care Team Providers Care Ict Security Specialist Name Role Phone Nick Martinez MD Primary Care Provider [phone] Encounter Details Date Type Department Care Team (Late st Contact Info) Description 04/16/2021 Orders Only [place]ology [place] [address] Boy Tovar MD [facility] DR [place] [address] Primary malignant neoplasm of right upper lobe [...] AM EDT Office Visit Hematology/Oncology at [address] [phone] Boy Tovar MD [facility] DR [place] [address] 10/17/2023 9:00 AM EDT Infusion Hematology Oncology at [address] [phone] documented as of this encounter Visit Diagnoses [...] gland documented in this encounter Care Teams Ict Security Specialist Relationship Specialty Start Date End Date Nick Martinez MD [address] [place] [address] PCP - General Internal Medicine 07/01/18 documented as of this encounter
--- OUTSIDE RECORDS SUMMARY | 2023-10-17 04:01 | XMS_ITS | Encounter Summary ---
Author Organization [facility] [place] [address] Care Team Providers Care Body Shop Mechanic Name Role Phone Nick Martinez MD Primary Care Provider [phone] Encounter Details Date Type Department Care Team (Late st Contact Info) Description 04/22/2021 Orders Only [place] [address] Carlos Marie MD [facility] [place] [address] Primary malignant neoplasm of right upper lobe [...] AM EDT Office Visit Hematology/Oncology at [address] [phone] Boy Tovar MD [facility] [place] [address] 10/17/2023 9:00 AM EDT Infusion Hematology Oncology at [address] [phone] documented as of this encounter Visit Diagnoses [...] gland documented in this encounter Care Teams Body Shop Mechanic Relationship Specialty Start Date End Date Nick Martinez MD [address] [place] [address] PCP - General Internal Medicine 07/01/18 documented as of this encounter
--- OUTSIDE RECORDS SUMMARY | 2023-10-17 04:01 | XMS_ITS | Encounter Summary ---
[place] [address] Care Team Providers Care Slasher Name Role Phone Nick Martinez MD Primary Care Provider [phone] Encounter Details Date Type Department Care Team (Latest Contact Info) Description 04/11/2021 12:15 AM EST Ancillary Procedure [place] [phone] Linda Zepeda, RN Primary malignant neoplasm of [...] AM EDT Office Visit Hematology/Oncology at [address] [phone] Boy Tovar MD [facility] DR HEMATOLOGY AND ONCOLOGY [place] [id number] 10/17/2023 9:00 AM EDT Infusion Hematology Oncology at [address] [phone] documented as of this encounter Procedures Procedure Name Priority Date/Time Associated Diagnosis Comments REQUEST FOR 2ND READ CT CHEST Routine 04/11/2021 12:14 AM EST Primary malignant 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 documented in this encounter Results * Request For 2nd [...] who have questions please contact the health eye care professional that requested your imaging first. ? Electronically signed by: Yoana Patel MD, [facility] ([phone]), at 04/11/2021 8:42 AM Narrative 04/11/2021 8:42 [...] CT in Rad on 02/11/21; Sending Institution [facility]; Date of exam [id number]; I believe a reinterpretation of this exam may alter care of Patient. Yes TECHNIQUE: Axial contiguous sections were obtained of the chest via helical acquisition after intravenous administration of Omnipaque 350 at [facility] on 03/26/2021. Coronal and sagittal [...] CT in Rad on 02/11/21; Sending Institution [facility];Date of exam [id number]; I believe a reinterpretation of this exam may alter careof Patient. Yes TECHNIQUE: Axial contiguous sections were obtained of the chest [facility]helical acquisition [facility] Coronal and sagittalreconstructions [...] pancreatic hypodensities, not appreciably changed going back [id number], most compatible with side-branch IPMNs. Thank you for letting us participate in the care of this patient. If youare a health care provider and have any questions regarding this report,please contact the number below. For patients who have questions please contactthe health eye care professional that requested your imaging first. Electronically signed by: Yoana Patel MD, [facility]([phone]), at 04/11/2021 8:42 AM Linda Zepeda RN IMG OUTSIDE INTERPRE TATION [...] gland documented in this encounter Care Teams Slasher Relationship Specialty Start Date End Date Nick Martinez MD [address] [place] [address] PCP - General Internal Medicine 07/01/18 documented as of this encounter
--- OUTSIDE RECORDS SUMMARY | 2023-10-17 04:01 | XMS_ITS | Encounter Summary ---
Author Organization [facility] [place] [address] Care Team Providers Care Permit Technician Name Role Phone Nick Martinez MD Primary Care Provider [phone] Encounter Details Date Type Department Care Team (Late st Contact Info) Description 03/30/2021 Telephone Hematology [place] [address] Jose Pearl, [facility] DR HEMATOLOGY/[place] [address] Social History Tobacco Use Types Packs/Day Years [...] encounter Miscellaneous Notes * Telephone Encounter - Jose Pearl, - 03/30/2021 7:43 AM EST Patient ID: Raffy Latif : 1960 Call from: Evelyn (spouse) Raffy Latif is a 60 y.o. male with stage III-C NSCLC on DRIVER WHEELCHAIR with Carbo/Paclitaxel. He was testedpositive for COVID-19. They had called and spoken with Dr. Carlisle regarding some epistaxis. This is not a concern today. Evelyn is calling to see if Alan should be presenting for his treatment at [facility]. However prior to me calling her back she had contacted the infusion room and was told that Raffy should not present. Raffy is feeling ok. He does have some new onset mild SOB. Evelyn is not sure whether this is from his previous treatments or due to COVID. I advised her to get a pulse oximeter to measure his O2 sats at home. I also asked her to call his PCP and see if he can get the monoclonal ab tx since he is a high risk patient. He has gotten the vaccine but has not gotten the booster. Evelyn will call and try toarrange this. I asker to call back with any questions and to present to the ED if Raffy's condition or SOB worsen. Jose Pearl DO Fellow, Hematology and Medical Oncology [facility] Pager: [phone], 03/30/21, 7:43 AM CC: Dr. Tovar documented in this encounter Plan of Treatment Upcoming Encounters Date Type Department Care Team (Late st Contact Info) Description 10/17/2023 8:30 AM EDT Office Visit Hematology/Oncology at [address] [phone] Boy Tovar MD [facility] DR [place] [address] 10/17/2023 9:00 AM EDT Infusion Hematology Oncology at [address] [phone] documented as of this encounter Visit Diagnoses Not on filedocumented in this encounter Care Teams Permit Technician Relationship Specialty Start Date End Date Nick Martinez MD [address] [place] [address] PCP - General Internal Medicine 07/01/18 documented as of this encounter
--- OUTSIDE RECORDS SUMMARY | 2023-10-17 04:01 | XMS_ITS | Encounter Summary ---
Author Organization [facility] [place] [address] Care Team Providers Care Multifocal Button Grinder Name Role Phone Nick Martinez MD Primary Care Provider [phone] Encounter Details Date Type Department Care Team (Late st Contact Info) Description 04/08/2021 Notes Only Radiation Oncology at [address] [phone] Azalea Watkins, GARNETT MACHINE OPERATOR OFFICE OF CARE MANAGEMENT Social [...] Progress Notes * Azalea Watkins MSW - 04/08/2021 10:51 AM EST Follow up with pt prior to his RT treatment today. Pt indicated he has some financial concerns. He has not been able to work the last few weeks. He may not be able to return to work for a few more. He is interested in accessing financial resources to help with his mortgage. GARNETT MACHINE OPERATOR had suggested the F as a resource earlier in his treatments. GARNETT MACHINE OPERATOR agreed to message the [employer] to make sure pt eligible toapply as he has come to the end of his treatments. If they find pt meets the application criteria will assist pt in completing his application for assistance. Will notify pt once GARNETT MACHINE OPERATOR hears from the [employer]AF. Brief assessment Supportive Counseling Financial resources Community Resource Add: Message from [employer] and pt is able to apply to he [employer] for assistance with his mortgage. TC pt re this. Obtain information for his application. Pt will bring in proof of household income required for his application. GARNETT MACHINE OPERATOR will complete and submit his application once all information obtained. documented in this encounter Plan of Treatment Upcoming Encounters Date Type Department Care Team (Late st Contact Info) Description 10/17/2023 8:30 AM EDT Office Visit Hematology/Oncology at [address] [phone] Boy Tovar MD [facility] DR HEMATOLOGY [place] [address] 10/17/2023 9:00 AM EDT Infusion Hematology Oncology at [address] [phone] documented as of this encounter Visit Diagnoses Not on filedocumented in this encounter Care Teams Multifocal Button Grinder Relationship Specialty Start Date End Date Nick Martinez MD [address] [place] [address] PCP - General Internal Medicine 07/01/18 documented as of this encounter
--- OUTSIDE RECORDS SUMMARY | 2023-10-17 04:02 | XMS_ITS | Encounter Summary ---
Author Organization [facility] [place] [address] Care Team Providers Care Product Safety Technician Name Role Phone Nick Martinez MD Primary Care Provider [phone] Encounter Details Date Type Department Care Team (Late st Contact Info) Description 03/02/2021 Notes Only Hematology/Oncology at [address] [phone] Azalea Watkins, WASHING MACHINE MECHANIC OFFICE OF CARE MANAGEMENT Social History Tobacco [...] Progress Notes * Azalea Watkins MSW - 03/02/2021 10:39 AM EST Follow up with pt during his infusion visit today. Pt indicated he is managing day to day at home. He is working as much as he feels up to. If he does not work he does not get paid so they are feeling the financial pinch. His continues as his primary caregiver. Their son , daughter and foster daughter are in the home right now. Reminded pt of our discussions about applying to the [facility] for help with their heating fuel bill.Pt is expecting a delivery this week. Also discussed plan to apply to the [facility] for help with mortgage payment. Explained he would have to bring in a copy of the bills and proof of household income. Ptappeared to understand this. Will plan to follow up with pt re this as he brings in the inforamtion to make these application. Reminded pt of WASHING MACHINE MECHANIC availability and contact inforamtion. Brief assessment Supportive Counseling Financial resources documented in this encounter Plan of Treatment Upcoming Encounters Date Type Department Care Team (Late st Contact Info) Description 10/17/2023 8:30 AM EDT Office Visit Hematology/Oncology at [address] [phone] Boy Tovar MD [facility] DR [place] [address] 10/17/2023 9:00 AM EDT Infusion Hematology Oncology at [address] [phone] documented as of this encounter Visit Diagnoses Not on filedocumented in this encounter Care Teams Product Safety Technician Relationship Specialty Start Date End Date Nick Martinez MD [address] [place] [address] PCP - General Internal Medicine 07/01/18 documented as of this encounter
--- OUTSIDE RECORDS SUMMARY | 2023-10-17 04:02 | XMS_ITS | Encounter Summary ---
Author Organization [facility] [place] [address] Care Team Providers Care Stonecutter Hand Name Role Phone Nick Martinez MD Primary Care Provider [phone] Reason for Visit * Diagnostic Test (Routine) - Closed Specialty Diagnoses / Procedures Referred By Mariana workman Referred To Contact Radiology Diagnoses Primary malignant 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 Procedures NM PET CT Skull Base to Mid-thigh Boy Tovar MD [facility] [address] [place] [address] [place] [address] Referral ID Status Reason Start Date Expiration Date V isits Requested Visits Authorized [id number] Closed Specialty Service Requested 01/08/2021 07/08/2022 1 1 Encounter Details Date Type Department Care Team (Late st Contact Info) Description 01/19/2021 6:12 AM EST - 01/19/2021 11:59 PM [facility] Hospital En[place] [address] Boy Tovar MD [facility] [place] [address] Discharge Disposition: Home Social History Tobacco Use Types Packs/Day Years Used Date Smoking Tobacco: Former Smokeless Tobacco: Current Chew Comments:1 can per day Alcohol Use Standard Drinks/Week Comments Yes 0 (1 standard drink = 0.6 oz pur e alcohol) occassional Overall Financial Resource Strain (CARDIA) Answe r Date Recorded How hard is it for you to pa y for the very basics like food, housing, medical care, and heating? Not hard at all 12/22/2020 Hunger Vital Sign Answer Date Recorded Within the past 12 months, y ou worried that your food would run out before you got the money to buy more. Never true 12/23/19 21 Within the past 12 months, t he food you bought just didn't last and you didn't have money to get more. Never true 12/22/2020 PRAPARE - Transportation Answer Date Re corded In the past 12 months, has l ack of transportation kept you from medical appointments or from getting medications? No 12/05 In the past 12 months, has l ack of transportation kept you from meetings, work, or from getting things needed for daily living? No 12/22/2020 Housing Stability Vital Sign Answer Jroge e Recorded In the last 12 months, was t here a time when you were not able to pay the mortgage or rent on time? No 12/22/2020 In the last 12 months, how many places have you lived? 1 12/22/2020 In the last 12 months, was t here a time when you did not have a steady place to sleep or slept in a detention (including now)? No 12/22/2020 Sex and Gender Information Value Date Recorded Sex Assigned at Not on file Gender Identity Not on file Sexual Orientation Not on file documented as of this encounter Medications at Time of Discharge Medication Sig Dispensed Refills Start Date End Date doxycycline (VIBRAMYCIN) 100 mg Capsule TAKE ONE CAPSULE BY MOUTH TWICE A DAY FOR 7 DAYS 01/18/2021 03/04/2021 LORazepam (Ativan) 0.5 mg Tablet Take 1 tablet by mouth as needed for Anxiety. Take prior to MRI Brain 2 tablet 01/19/2021 11/16/2021 LORazepam (Ativan) 0.5 mg Tablet Take 1 tablet by mouth once for 1 dose. 4 tablet 12/22/2020 04/25/2023 documented as of this encounter Plan of Treatment Upcoming Encounters Date Type Department Care Team (Late st Contact Info) Description 10/17/2023 8:30 AM EDT Office Visit Hematology/Oncology at [address] [phone] Boy Tovar MD [facility] DR [place] [address] 10/17/2023 9:00 AM EDT Infusion Hematology Oncology at [address] [phone] documented as of this encounter Procedures Procedure Name Priority Date/Time Associated Diagnosis Comments NM PET CT SKULL BASE TO MID-THIGH ([facility]) Routine 01/19/2021 8:24 AM EST Primary malignant 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 POCT GLUCOSE Routine 01/19/2021 6:52 AM EST documented in this encounter Results * POCT Glucose (01/19/2021 6:52 AM EST) Glucose, POC 114 65 - 199 mg/dL [facility] Comment: Supplemental ranges: <140 mg/dL before meals <180 mg/dL all other times of the day Blood 01/19/2021 6:52 AM EST 01/19/2021 6:52 AM EST Boy Tovar MD POINT OF CARE TEST O RDERABLES [facility] [place] [address] documented in this encounter Visit Diagnoses Not on filedocumented in this encounter Care Teams Stonecutter Hand Relationship Specialty Start Date End Date Nick Martinez MD [address] [place] [address] PCP - General Internal Medicine 07/01/18 documented as of this encounter
--- OUTSIDE RECORDS SUMMARY | 2023-10-17 04:02 | XMS_ITS | Encounter Summary ---
Author Organization [facility] [place] [address] Care Team Providers Care Embedded Systems Software Developer Name Role Phone Nick Martinez MD Primary Care Provider [phone] Reason for Visit * Reason Onset Date Comments Other 02/09/2021 financial distre ss Encounter Details Date Type Department Care Team (Late st Contact Info) Description 02/09/2021 Telephone Radiation Oncology at [address] [phone] Azalea Watkins, ELECTRIC TRUCKER OFFICE OF CARE MANAGEMENT Other (financial distress) Social History Tobacco Use Types Packs/Day Years [...] Telephone Encounter - Azalea Watkins MSW - 02/09/2021 2:32 PM EST TC from pt's Velvet re suggestion of Dr. Ross. Velvet reports concerns about household income andtherefore covering expenses as pt becomes less able to work. 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 Velvet works in food taster at [employer]. Discussed financial concerns. They have been able to get a hold on their mortgage for 2 months. They are a head on their car payment until the first of the year. They will need propane soon. They areokay on other utilities for the time being. They are okay with food. Velvet reports they have expenses for their daughter's college and car payment. They have a young foster child and will have Christina expenses. Pt does expect to return to work at some point. Answered questions re SSDI. Did provide some information about the [employer] [place] and the [employer] as possible resources for some financialassistance. Will plan to meet pt this week when he comes in for his sim. Will continue discussion re needs and resources. Brief assessment Supportive Counseling Financial resources documented in this encounter Plan of Treatment Upcoming Encounters Date Type Department Care Team (Late st Contact Info) Description 10/17/2023 8:30 AM EDT Office Visit Hematology/Oncology at [address] [phone] Boy Tovar MD [facility] DR HEMATOLOGY [place] [address] 10/17/2023 9:00 AM EDT Infusion Hematology Oncology at [address] [phone] documented as of this encounter Visit Diagnoses Not on filedocumented in this encounter Care Teams Embedded Systems Software Developer Relationship Specialty Start Date End Date Nick Martinez MD [address] [place] [address] PCP - General Internal Medicine 07/01/18 documented as of this encounter
--- OUTSIDE RECORDS SUMMARY | 2023-10-17 04:02 | XMS_ITS | Encounter Summary ---
Author Organization [facility] [place] [address] Care Team Providers Care Count Room Clerk Name Role Phone Nick Martinez MD Primary Care Provider [phone] Encounter Details Date Type Department Care Team (Late st Contact Info) Description 01/19/2021 Telephone Hematology Oncology at [address] [phone] Laly Larose, RN Social History [...] No 12/22/2020 Housing Stability Vital Sign Answer Jorge e [...] slept in a fpc (including now)? No 12/22/2020 Sex and Gender Information Value Date Recorded Sex Assigned at Not on file Gender Identity Not on file Sexual Orientation Not on file documented as of this encounter Miscellaneous Notes * Telephone Encounter - Laly Larose RN - 01/19/2021 12:13 PM EST Received phone call from patient, reports that he had PET scan this morning [place] [facility]. He is very claustrophobic and took 2 Lorazepam prior to the PET scan. Reports that he was able to get through the PET but is already anxious about MRI of brain this afternoon. He has 2 lorazepam left (0.5mg tablets) and plans to take those prior to the MRI. He is concerned that it won't be enough to get through the MRI and wonders if he can take 3 (1.5mg total). He will need a Rx. Also reports that he was in ER on Tuesday and has pneumonia. Is on antibiotics. Wanted me to let Dr. Tovar know this in case it showed up on the PET scan. Discussed with Dr. Tovar. Prescription for Lorazepam sent to pharmacy - 2 tablets. He should take 3 tablets total (1.5mg) about 30 minutes prior to MRI. Will have additional tablet, if needed. Called Mr. Latif back with these instructions. He verbalized agreement and understanding of plan. documented in this encounter Plan of Treatment Upcoming Encounters Date Type Department Care Team (Late st Contact Info) Description 10/17/2023 8:30 AM EDT Office Visit Hematology/Oncology at [address] [phone] Boy Tovar MD [facility] DR [place]Y [place] [address] 10/17/2023 9:00 AM EDT Infusion Hematology Oncology at [address] [phone] documented as of this encounter Visit Diagnoses Not on filedocumented in this encounter Care Teams Count Room Clerk Relationship Specialty Start Date End Date Nick Martinez MD [address] [place] [address] PCP - General Internal Medicine 07/01/18 documented as of this encounter
--- OUTSIDE RECORDS SUMMARY | 2023-10-17 04:02 | XMS_ITS | Encounter Summary ---
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) Social History Tobacco Use Types Packs/Day Years [...] AM EDT Office Visit Hematology/Oncology at [address] [phone] Byo Tovar MD [facility] [address] [place] [address] 10/17/2023 9:00 AM EDT Infusion Hematology Oncology at [address] [phone] documented as of this encounter Visit Diagnoses Diagnosis Primary malignant 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- Primary Malignant neoplasm of upper lobe, bronchus or lung Primary malignant 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 Malignant neoplasm of upper lobe, bronchus or lung Brain metastasis 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
--- OUTSIDE RECORDS SUMMARY | 2023-10-17 04:02 | XMS_ITS | Encounter Summary ---
Author Organization [facility] [place] [address] Care Team Providers Care Edge Dyer Name Role Phone Nick Martinez MD Primary Care Provider [phone] Reason for Visit * Reason Onset Date Comments Other 01/19/2021 cancel TS appoin tment Encounter Details Date Type Department Care Team (Late st Contact Info) Description 01/19/2021 Telephone [place] [phone] Jewels Davis, RN Other (cancel TS appointment) Social History Tobacco Use Types Packs/Day Years [...] slept in a prison (including now)? No 12/22/2020 Sex and Gender Information Value Date Recorded Sex Assigned at Not on file Gender Identity Not on file Sexual Orientation Not on file documented as of this encounter Miscellaneous Notes * Telephone Encounter - Jewels Davis RN - 01/19/2021 12:27 PM EST TC to Mr. Latif Unable to reach Mr. Latif, left a message stating that his TS appointment is cancelled for January. Requested call back for any questions. documented in this encounter Plan of Treatment Upcoming Encounters Date Type Department Care Team (Late st Contact Info) Description 10/17/2023 8:30 AM EDT Office Visit Hematology/Oncology at [address] [phone] Boy Tovar MD [facility] DR HEMATOLOGY [place] [address] 10/17/2023 9:00 AM EDT Infusion Hematology Oncology at [address] [phone] documented as of this encounter Visit Diagnoses Not on filedocumented in this encounter Care Teams Edge Dyer Relationship Specialty Start Date End Date Nick Martinez MD [address] [place] [id number] PCP - General Internal Medicine 07/01/18 documented as of this encounter
--- OUTSIDE RECORDS SUMMARY | 2023-10-17 04:02 | XMS_ITS | Encounter Summary ---
Author Organization [facility] [place] [address] Care Team Providers Care Classroom Paraprofessional Name Role Phone Nick Martinez MD Primary Care Provider Reason for Visit * Auth/Cert Specialty Diagnoses / Procedures Referred By Mariana workman Referred To Contact Diagnoses Lung cancer/ Bronchoscopy with EBUS/ GA/ Backer Procedures PRO [facility] EBUS GUIDED SAMPL 1/2 NODE STATION/STRUX BRONCH, W ENDOBRONCHIAL ULTRASOUND (EBUS) GUIDED SAMPLING, 1/2 NODES (WRVU 4.71) Referral ID Status Reason Start Date Expiration Date Visits Re quested Visits Authorized [id number] 1 1 Encounter Details Date Type Department Care Team (Late st Contact Info) Description 12/31/2020 3:25 PM EDT - 12/31/2020 5:45 PM EDT Surgery [place] [id number] BackerRoman MD [facility] [place] [address] BRONCH, W ENDOBRONCHIAL ULTRASOUND (EBUS) GUIDED SAMPLING, 3+ NODES (WRVU 4.96) Social History Tobacco Use Types Packs/Day Years [...] Sign Reading Time Taken Comments Blood Pressure 122/76 12/31/2020 5:45 PM EDT Pulse 80 12/31/2020 2:25 PM EDT Temperature 36.4 ??C (97.5 ??F) 12/31/2020 5:05 PM ED T Respiratory Rate 16 12/31/2020 5:05 PM EDT Oxygen Saturation 94% 12/31/2020 5:45 PM EDT Inhaled Oxygen Concentration - - Weight - - Height - - Body Mass Index - - documented in this encounter Discharge Instructions * Patient Instructions* Roman Teran MD - 12/31/2020 4:47 PM EDT Post-bronchoscopy patient instruction: ??? Your procedure (bronchoscopy with lymph node biopsies) was completed successfully today (12/31/2020) by Dr. Roman Teran. ??? We will be in contact with you to discuss your results as they return over the coming 3-5 business days. ??? You may experience low grade fevers over the next 48 hours. ??? You may cough up a small amount of blood. This is normal. ??? You may have a sore throat, chest discomfort, hoarse voice, or have a tickle in your throat or a dry cough for a day or two. This is normal and usually gets better quickly. Using cough drops or gargling with warm salt water may help. ??? Call our office immediately or present to the nearest emergency room if you develop shortness of breath, pain in your chest, coughing up large amounts of blood (about 1-2 tablespoons), or fever/chills last longer than 48 hours. ??? If you have any questions, please call our office at . There is someone assistant corporate controller to speak with 27/09. Roman Teran MD, 12/31/2020, 4:47 PM Interventional Pulmonology Section of Pulmonary & Critical Care documented in this encounter Medications at Time of Discharge Medication Sig Dispensed Refills Start Date End Date LORazepam (Ativan) 0.5 mg Tablet Take 1 tablet by mouth once for 1 dose. 4 tablet 12/22/2020 04/25/2023 documented as of this encounter H&P Notes * Roman Teran MD - 12/31/2020 1:52 PM EDT Interventional Pulmonology Pre-Procedure History & Physical SECTION OF PULMONARY/CRITICAL CARE MEDICIE Procedure: Bronchoscopy, endobronchial ultrasound (EBUS) and biopsy Reason for procedure: Lung cancer See last note from Dr. Tovar. PHYSICAL EXAM: No data found. Mental Status: Alert and oriented x3 Airway examination: Feasible Pulmonary: Clear to ausculation bilaterally CV: RRR, no murmurs or gallops ASA Grade: ASA III (Patient has severe systemic disease that is not incapacitating) Assessment & Plan: ?? Consent to be signed ?? Proceed with procedure as stated Roman Teran MD, 12/31/2020, 1:52 PM Interventional Pulmonology Section of Pulmonary & Critical Care Pager: [phone] documented in this encounter Miscellaneous Notes * Op Note - Roman Teran MD - 12/31/2020 3:51 PM EDT Images from the original note were not included. INTERVENTIONAL PULMONOLOGY PROCEDURE NOTE SECTION OF PULMONARY & CRITICAL CARE MEDICINE Patient Name: Raffy Latif Patient Patient : 1960 Procedure Date: 12/31/2020 Procedure(s): A flexible bronchoscopy Airway examination EBUS-TBNA (4 sites(s)) Therapeutic suctioning Procedure Location: Operating room Indication: Lung cancer Attending(s) of Record: Roman Teran MD Others Present: Norbert Morley MD Medications: General Anesthesia - See anesthesia flowsheet for details Sedation Time: Per anesthesia care provider Time Out: Performed The patient's medical record has been reviewed. The indication for the procedure was reviewed. The necessary history and physical examination was performed and reviewed. The risks, benefits and alternatives of the procedure were discussed with the patient in detail and he had the opportunity to askquestions. I discussed in particular the potential complications including risks of minor or life-threatening bleeding and/or infection, hemoptysis, fever, respiratory failure, voice hoarseness, pneumothorax, and discomfort. Sedation risks were also discussed including abnormal heart rhythms, low blood pressure, and respiratory failure. All questions were answered to the best of my ability. Informed consent was obtained. The proposed procedure and the patient's identification were verified prior to the procedure by the physician and the nurse. After clinical evaluation and reviewing the indication, risks, alternatives and benefits of the procedure the patient was deemed to be in satisfactory condition to undergo the procedure. The patient was assessed for the adequacy for the procedure and to receive medications. Mental Status: Alert and oriented x3 Airway examination: Feasible Pulmonary: Bilateral breath sounds CV: RRR ASA Grade: ASA III (Patient has severe systemic disease that is not incapacitating) Procedure Descriptions: Airway Examination: An Olympus H190 flexible bronchoscope was used for the procedure. The bronchoscope was inserted through the endotracheal tube and inspection undertaken. A complete airway examination was performed from the distal trachea to the subsegmental level in each lobe of both lungs. Pertinent findings include normal bronchial anatomy, no endobronchial lesions and no secretions. EBUS-TBNA (4 lymph node stations): The Olympus EBUS ([id number]) scope was inserted, lymph node inspection undertaken and transbronchial needle aspiration obtained from the following stations using the Olympus ViziShot-1 22 gauge TBNA needle: 1) Station 4L with 4 passes obtained with JERILYN absent. 2)Station 7 with 5 passes obtained with JERILYN absent. 3) Station 4R with 4 passes obtained with JERILYN absent. 4) Station 11Rs(superior) with 4 passes obtained with JERILYN absent. Abundant material was collected in 10% neutral buffered formalin and sent for cytology review. Note, all mediastinal, hilar, lobar and segmental stations are evaluated during the procedure and those not listed were not biopsied due to small lymph node diameter, positive JERILYN on higher antwon staging, alternative diagnosis or inability to continue with the procedure. Specifically, station 11L was <5 mm, station 11Ri(inferior) was not identified, station 12R was not identified. Therapeutic Suctioning (75114): At least 15-20 min of operative time was spent clearing out the airway of debris, blood and/or secretions prior to or during the intervention. Any disposable equipment was visually inspected and deemed to be intact immediately post procedure. Estimated Blood Loss: 5 mL Complications: None Relevant Pictures No pertinent imaging Recommendations: ??? Successful flexible bronchoscopy and EBUS-TBNA (4 sites) ??? Await pending results in the next 3-5 business days ??? Follow-up with referring provider as previously arranged Roman Teran MD, 12/31/2020, 4:47 PM Interventional Pulmonology Section of Pulmonary & Critical Care Pager: [phone] documented in this encounter Plan of Treatment Upcoming Encounters Date Type Department Care Team (Late st Contact Info) Description 10/17/2023 8:30 AM EDT Office Visit Hematology/Oncology at [address] [phone] Boy Tovar MD [facility] [address] [place] [address] 10/17/2023 9:00 AM EDT Infusion Hematology Oncology at [address] [phone] documented as of this encounter Procedures Procedure Name Priority Date/Time Associated Diagnosis Comments SOLID TUMOR NGS PANEL Routine 12/31/2020 4:28 PM EDT NON-MEDICAL DEVICE SALES CONSULTANT FINAL REPORT Routine 12/31/2020 4:28 PM EDT CYTOPATHOLOGY NON-GYNECOLOGICAL Routine 12/31/2020 4:28 PM EDT NON-MEDICAL DEVICE SALES CONSULTANT FINAL REPORT Routine 12/31/2020 4:18 PM EDT CYTOPATHOLOGY NON-GYNECOLOGICAL Routine 12/31/2020 4:18 PM EDT NON-MEDICAL DEVICE SALES CONSULTANT FINAL REPORT Routine 12/31/2020 4:09 PM EDT CYTOPATHOLOGY NON-GYNECOLOGICAL Routine 12/31/2020 4:09 PM EDT NON-MEDICAL DEVICE SALES CONSULTANT FINAL REPORT Routine 12/31/2020 3:58 PM EDT CYTOPATHOLOGY NON-GYNECOLOGICAL Routine 12/31/2020 3:58 PM EDT [facility] Guided Sampl 3/> Node Station/Strux (02325) Yes 12/31/2020 3:32 PM EDT Malignant neoplasm of lung, unspecified laterality, unspecified part of lung documented in this encounter Results * Non-Football Scout Final Report (12/31/2020 4:28 PM EDT) Diagnosis Discussion [id number] ? Location: [place]; [facility]; A The signing pathologist has (i) examined the relevant preparation(s) for the specimen(s) and (ii) rendered or confirmed the diagnosis(es). . ? Addendum ADDENDUM DISCUSSION Tissue: ??Lymph node: 11R (EBUS-guided FNA) Tumor Proportion Score (TPS): ?% Expression: 40-60% Interpretation Table: PD-L1 assay (22C3 pharmDX) for Keytruda Tumor Proportion Score (TPS): ? <1% ?PD-L1 Negative ? >=1% ? PD-L1 Expression Immunohistochemical assay was performed on paraffin-embedded tissue sections fixed in 10% neutral buffered formalin for 6-72 hours using the polymer system technique with appropriate controls. The assay was performed according to the process improvement engineer's instructions using Anti-PD-L1 (22C3, pharmDX) antibody. Electronically signed by: ?Aparna Varela DO Verified: ??01/06/2021 15:59 ??Pathologist Performed at: ??-[facility] Dept. of Pathology, [place], [place] ? Non-Football Scout Final DIAGNOSIS Positive for Malignancy Electronically signed by: ?Bradley Zelaya MD Verified: ??01/05/2021 12:33 ??Cytopathologist Performed at: ??-[facility] Dept. of Pathology, [place], [place] DISCUSSION Lymph node: 11R (EBUS-guided FNA) - Compatible with metastatic adenocarcinoma of lung origin. Dr. Neville concurs with the diagnosis. An immunostain for PDL1 is being ordered; results will be issued when available. Molecular studies are being ordered; results will be issued in a molecular pathology report. --- Immunohistochemistry Studies --- Interpretation: ? Immunohistochemical assays were performed (on paraffin-embedded cell block sections fixed in 10% neutral buffered formalin for 6-72 hours) using the polymer technique with appropriate controls. The sections are studied for p40 and TTF-1. The lesional cells are immunoreactive for TTF-1 and negative for p40. These immunohistochemical studies provide ancillary information and are used only in conjunction with standard diagnostic procedures. . CLINICAL INFORMATION Specimen Source : Lymph node: 11R (EBUS-guided FNA) Pertinent Clinical Data and Significant Therapy: Lung cancer/Bronchoscopy with EBUS Clinical Impression : Right middle lobe lung cancer Pertinent Radiologic Findings ??: (not provided) Gross Description: Received ??in Formalin approximately 45 mL total volume of ?? cloudy, pink fluid, with dark flecks. Total Preparation: Cell Block 1. 01/06/2021 3:59 PM EDT [facility] LYMPH NODE SPECIMEN / Unknown 12/31/2020 4:28 PM EDT 12/31/2020 4:28 PM EDT Roman Teran MD PATHOLOGY/CYTOLOGY O NAT Performing Organization Address [facility] de Phone Number [facility] [place] [address] * Solid Tumor NGS Panel (12/31/2020 4:28 PM EDT) Tissue 12/31/2020 4:28 PM EDT 01/06/2021 7:06 AM EDT Narrative Resulting Agency Comment Spec In Lab Roman Teran MD PATHOLOGY/CYTOLOGY O NAT Performing Organization Address City/[facility] Co de Phone Number [facility] [place] [address] * Cytopathology Non-Gynecological (12/31/2020 4:28 PM EDT) AP Specimen 12/31/2020 4:28 PM EDT 12/31/2020 4:28 PM EDT Narrative [facility] - 12/31/2020 4:28 PM EDT Specimen requisition ordered. ??Separate Pathology report to follow Roman Teran MD PATHOLOGY/CYTOLOGY O RDERASARWAT [facility] [place] [address] * Non-Football Scout Final Report (12/31/2020 4:18 PM EDT) Diagnosis Discussion [id number] ? Location: [facility]; [facility]; A The signing pathologist has (i) examined the relevant preparation(s) for the specimen(s) and (ii) rendered or confirmed the diagnosis(es). . ? Non-Football Scout Final DIAGNOSIS Suspicious for Malignancy Electronically signed by: ?Mckinley VENTURA, Nabil Verified: ??01/05/2021 17:21 ??Pathologist Performed at: ??-[facility] Dept. of Pathology, [place], [place] DISCUSSION Lymph node, 4R (EBUS-guided FNA): Extremely scant ??cellularity specimen. Rare minute clusters of atypical epithelial cells, highly suspicious for malignancy/ carcinoma. Please see the ??concurrent FNA specimens (, , ). Additional multiple deeper levels examined. CLINICAL INFORMATION Specimen Source : Lymph node, 4R (EBUS-guided FNA) Pertinent Clinical Data and Significant Therapy: Lung cancer/ Bronchoscopy with EBUS/ GA/ Backer Clinical Impression : Right middle lobe lung cancer Pertinent Radiologic Findings ??: (not provided) Gross Description: Received ??in Formalin approximately 45 mL total volume of ?? cloudy, pink fluid, with light flecks, with dark flecks. Total Preparation: Cell Block 1. 01/05/2021 5:21 PM EDT [facility] LYMPH NODE SPECIMEN / Unknown 12/31/2020 4:18 PM EDT 12/31/2020 4:18 PM EDT Roman Teran MD PATHOLOGY/CYTOLOGY O NAT Performing Organization Address [facility]/ZIP Co de Phone Number [facility] [place] [address] * Cytopathology Non-Gynecological (12/31/2020 4:18 PM EDT) AP Specimen 12/31/2020 4:18 PM EDT 12/31/2020 4:18 PM EDT Narrative [facility] - 12/31/2020 4:18 PM EDT Specimen requisition ordered. ??Separate Pathology report to follow Roman Teran MD PATHOLOGY/CYTOLOGY O NAT Performing Organization Address [facility] Co de Phone Number [facility] [place] [address] * Non-Football Scout Final Report (12/31/2020 4:09 PM EDT) Diagnosis Discussion [id number] ? Location: [facility]; [facility]; The signing pathologist has (i) examined the relevant preparation(s) for the specimen(s) and (ii) rendered or confirmed the diagnosis(es). . ? Non-Football Scout Final DIAGNOSIS Positive for Malignancy Electronically signed by: ?Bradley Zelaya MD Verified: ??01/05/2021 12:17 ??Cytopathologis t Performed at: ??-[facility] Dept. of Pathology, [place], [place] DISCUSSION Lymph node: station 7 (EBUS-guided FNA) - A rare cluster of highly atypical epithelial cells, compatible with a non-small cell carcinoma, present. See also the concurrent 11R lymph node FNA, [id number]. Dr. Neville concurs with the diagnosis. (Cell block was examined.) CLINICAL INFORMATION Specimen Source : Lymph node: station 7 (EBUS-guided FNA) Pertinent Clinical Data and Significant Therapy: Lung cancer/Bronchosc opy with EBUS Clinical Impression : Right middle lobe lung cancer Pertinent Radiologic Findings ??: (not provided) Gross Description: Received ??in Formalin approximately 45 mL total volume of ?? cloudy, pink fluid. Total Preparation: Cell Block 1. 01/05/2021 12:17 PM EDT [facility] LYMPH NODE SPECIMEN / Unknown 12/31/2020 4:09 PM EDT 12/31/2020 4:09 PM EDT Roman Teran MD PATHOLOGY/CYTOLOGY O NAT Performing Organization Address [facility] Co de Phone Number [facility] [place] [address] * Cytopathology Non-Gynecological (12/31/2020 4:09 PM EDT) AP Specimen 12/31/2020 4:09 PM EDT 12/31/2020 4:09 PM EDT Narrative [facility] - 12/31/2020 4:09 PM EDT Specimen requisition ordered. ??Separate Pathology report to follow Roman Teran MD PATHOLOGY/CYTOLOGY O NAT Performing Organization Address [facility] Co de Phone Number [facility] [place] [address] * Non-Football Scout Final Report (12/31/2020 3:58 PM EDT) Diagnosis Discussion [id number] ? Location: [facility]; [facility]; A The signing pathologist has (i) examined the relevant preparation(s) for the specimen(s) and (ii) rendered or confirmed the diagnosis(es). . ? Non-Football Scout Final DIAGNOSIS Positive for Malignancy Electronically signed by: ?Garcia VENTURA, Bradley Laird Verified: ??01/05/2021 12:12 ??Cytopathologis t Performed at: ??-[facility] Dept. of Pathology, [place], [place] DISCUSSION Lymph node: 4L (EBUS-guided FNA) - A few clusters of highly atypical epithelial cells, compatible with a non-small cell carcinoma, present. See also the concurrent 11R lymph node FNA, [id number]. Dr. Neville concurs with the diagnosis. (Cell block was examined.) CLINICAL INFORMATION Specimen Source : Lymph node: 4L (EBUS-guided FNA) Pertinent Clinical Data and Significant Therapy: Lung cancer/Bronchosc opy with EBUS Clinical Impression : Right middle lobe lung cancer Pertinent Radiologic Findings ??: (not provided) Gross Description: Received ??in Formalin approximately 45 mL total volume of ?? cloudy, red fluid, with clots. Total Preparation: Cell Block 1. 01/05/2021 12:12 PM EDT [facility] LYMPH NODE SPECIMEN / Unknown 12/31/2020 3:58 PM EDT 12/31/2020 3:58 PM EDT Roman Teran MD PATHOLOGY/CYTOLOGY O NAT [facility] [place] [address] * Cytopathology Non-Gynecological (12/31/2020 3:58 PM EDT) AP Specimen 12/31/2020 3:58 PM EDT 12/31/2020 3:58 PM EDT Narrative [facility] - 12/31/2020 3:58 PM EDT Specimen requisition ordered. ??Separate Pathology report to follow Roman Teran MD PATHOLOGY/CYTOLOGY O NAT [facility] [place] [address] documented in this encounter Visit Diagnoses Diagnosis Malignant neoplasm of lung, unspecified laterality, unspecified part of lung Primary malignant neoplasm of right upper [...] MAR Action Action Date Dose Rate Site acetaminophen (Tylenol) tablet 1,000 mg 1,000 mg, Oral, ONCE, 1 dose, On Tue12/31/20 at 1445, Administer with SIP of H2O only., Day of Surgery (Day of Procedure), Routine Given 12/31/2020 2:33 PM EDT 1,000 mg documented in this encounter Active and Recently Administered Medications Times are shown in EDT. Scheduled Medication Order 12/29/2020 12/30/2020 12/31/2020 acetaminophen (Tylenol) tablet 1,000 mg (COMPLETED) 1,000 mg, Oral, ONCE, 1 dose, On Tue12/31/20 at 1445, Administer with SIP of H2O only., Day of Surgery (Day of Procedure), Routine 1433 (Given - Provid er: Zhane Rivera RN) documented in this encounter Care Teams Classroom Paraprofessional Relationship Specialty Start Date End Date Nick Martinez MD [address] [place] [address] PCP - General Internal Medicine 07/01/18 documented as of this encounter
--- OUTSIDE RECORDS SUMMARY | 2023-10-17 04:02 | XMS_ITS | Encounter Summary ---
Author Organization [facility] [place] [address] Care Team Providers Care Svp Group Director Name Role Phone Nick Martinez MD Primary Care Provider [phone] Reason for Visit * Reason Onset Date Comments Other 03/05/2021 financial resour rosie Encounter Details Date Type Department Care Team (Late st Contact Info) Description 03/05/2021 Telephone Radiation Oncology at [address] [phone] Azalea Watkins, REGISTRAR [employer] OFFICE OF CARE MANAGEMENT Other (financial resources) Social History Tobacco Use Types Packs/Day [...] Telephone Encounter - Azalea Watkins MSW - 03/05/2021 11:16 AM EST [facility]'s request for $450 towards his heating fuel billand the check is being mailed to the vendor today. TC pt and notified him of this. Pt appreciative of the financial assistance. Financial resources Community Resource documented in this encounter Plan of Treatment Upcoming Encounters Date Type Department Care Team (Late st Contact Info) Description 10/17/2023 8:30 AM EDT Office Visit Hematology/Oncology at [address] [phone] Boy Tovar MD [facility] HEMATOLOGY [place] [address] 10/17/2023 9:00 AM EDT Infusion Hematology Oncology at [address] [phone] documented as of this encounter Visit Diagnoses Not on filedocumented in this encounter Care Teams Svp Group Director Relationship Specialty Start Date End Date Nick Martinez MD [address] [place] [address] PCP - General Internal Medicine 07/01/18 documented as of this encounter
--- OUTSIDE RECORDS SUMMARY | 2023-10-17 04:02 | XMS_ITS | Encounter Summary ---
Author Organization [facility] [place] [address] Care Team Providers Care Bakeshop Cleaner Name Role Phone Nick Martinez MD Primary Care Provider [phone] Reason for Visit * Reason Comments Chemotherapy Cycle 1, Day 8; Carb o/Taxol * Treatment/Therapy Plan Authorization (Routine) - Specialty Diagnoses / Procedures Referred By Contac t Referred To Contact Diagnoses Primary malignant 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 Procedures TC PALONOSETRON HCL, 25MCG, INJECTION (ALOXI) TC PACLITAXEL, 1MG, INJ TC CARBOPLATIN, 50MG, INJECTION (PARAPLATIN) J2469 palonosetron (Aloxi) 0.25 MG J9267 PACLitaxeL (Taxol) 118 MG J9045 CARBOplatin (Paraplatin) 260 MG Boy Tovar MD [facility] [place] [address] [facility] Hem Onc Office [address] [place] [phone] Referral ID Status Reason Start Date Expiration Date V isits Requested Visits Authorized [id number] 03/02/2021 04/15/2021 20 20 Encounter Details Date Type Department Care Team (Late st Contact Info) Description 03/09/2021 9:00 AM EST Infusion Hematology Oncology at [address] [phone] Primary malignant neoplasm of right upper lobe [...] Progress Notes * Jem Mann RN - 03/09/2021 9:00 AM EST INFUSION THERAPY ADMINISTRATION NOTES DIAGNOSIS: NSCLC CYCLE #: 1, Day 8 - Paclitaxel/Carboplatin concurrent with radiation. REASON FOR VISIT: To receive first cycle of chemotherapy. SUBJECTIVE: Raffy offers no complaints. OBJECTIVE: Seen by provider. Chemotherapy teaching by Neva Zepeda APRN. LAB DATA: 03/09/21 - WBC - 4.68, Hg 14, plt Ct - 244, ANC - 3.76, Lytes wnl, BUN/Cr - 16/1.2 IV ACCESS: PIV Pre administration: Chemotherapy orders independently verified for drug name, route, and dosage per patient's height, weight and BSA by JEM MANN RN and Staff Pharmacist(s). REACTIONS (DESCRIPTION, TIME, INTERVENTION AND EFFECTIVENESS) none ASSESSMENT: Raffy was awake, alert and tolerated treatment well. PIV discontinued prior to dismissal. PLAN: Return to clinic next week for day 15. documented in this encounter Plan of Treatment Upcoming Encounters Date Type Department Care Team (Late st Contact Info) Description 10/17/2023 8:30 AM EDT Office Visit Hematology/Oncology at [address] [phone] Boy Tovar MD [facility] [address] [place] [address] 10/17/2023 9:00 AM EDT Infusion Hematology Oncology at [address] [phone] documented as of this encounter Visit Diagnoses [...] = 2), Intravenous, ONCE, 1 dose, On 03/09/21 at 1015, Administer over 30 Minutes, Warning Vesicant/Irritant Medication New Bag 03/09/2021 11:02 AM EST 252 mg 550.4 mL/hr dexamethasone (Decadron) injection 10 mg 10 mg, Intravenous, ONCE, 1 dose, On Tue03/09/21 at 0915, Administer 30 minutes prior to PACLitaxel Given 03/09/2021 9:06 AM EST 10 mg diphenhydrAMINE (Benadryl) capsule 50 mg 50 mg, Oral, ONCE, 1 dose, On Tue03/09/21 at 0915, Administer 30 minutes prior to PACLitaxel, Routine Given 03/09/2021 9:05 AM EST 50 mg famotidine (Pepcid) (10 mg/mL) injection 20 mg 20 mg, Intravenous, ONCE, 1 dose, On Tue03/09/21 at 0915, Administer 30 minutes prior to PACLitaxel Given 03/09/2021 9:06 AM EST 20 mg PACLitaxeL (Taxol) 118 mg in sodium chloride 0.9% Non-PVC 269.6667 mL infusion 118 mg (rounded from 117.5 mg = 50 mg/m2/dose ? 2.35 m2 Treatment Plan BSA from Recorded weight), Intravenous, ONCE, 1 dose, On Tue03/09/21 at 1015, Administer over 60 Minutes, Warning Vesicant/Irritant Medication New Bag 03/09/2021 9:52 AM EST 118 mg 269.7 mL/hr palonosetron (Aloxi) (0.05 mg/mL) injection 0.25 mg 0.25 mg, Intravenous, ONCE, 1 dose, On Tue03/09/21 at 0915, Administer over 30 seconds., Routine Given 03/09/2021 9:06 AM EST 0.25 mg documented in this encounter Care Teams Bakeshop Cleaner Relationship Specialty Start Date End Date Nick Martinez MD [address] [place] [address] PCP - General Internal Medicine 07/01/18 documented as of this encounter
--- OUTSIDE RECORDS SUMMARY | 2023-10-17 04:02 | XMS_ITS | Encounter Summary ---
Author Organization [facility] [place] [address] Care Team Providers Care Payroll Administrator Name Role Phone Nick Martinez MD Primary Care Provider Reason for Visit * Consultation (Routine) - Closed Specialty Diagnoses / Procedures Referred By Mariana workman Referred To Contact Radiation Oncology Diagnoses Primary malignant 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 Procedures Simulation for Radiation Therapy Planning Parker Ross MD [facility] [place] [address] [facility] Rad Onc Office [address] [place] [phone] Referral ID Status Reason Start Date Expiration Date V isits Requested Visits Authorized [id number] Closed Consult, Test & Treat 02/06/2021 02/06/2022 31 31 Encounter Details Date Type Department Care Team (Late st Contact Info) Description 02/11/2021 4:00 PM EST Ancillary Appointment Radiation Oncology at [address] [phone] Parker Ross MD [facility] [place] [address] Social History Tobacco Use Types Packs/Day Years [...] on file documented as of this encounter Patient Instructions * Patient Instructions* Alyssa Brar RN - 02/11/2021 4:00 PM EST General instructions for Radiation therapy Radiation Oncology Team ?? Radiation Oncologist -The doctor who will direct all aspects of your radiation treatments ?? Nurse Practitioner - They assist your doctor in treating your side effects and with follow up appointments. ?? Registered Nurse - They darinel you in learining about you radaiton treatments, , and things you can do to help manage the side effects. ?? Can Inspector - They take the doctors radiation prescription and customize it into doses (or days of treatments) specific for you. ?? Physicist - They make sure all the machines are operating correctly and double check calculations for your treatment. ?? Radiation Technologists - They operate the machines which deliver your radiation. You see them daily and they schedule your treatments. ?? Simulation CT/ Planning Session- Your first step after deciding to start radiation treatments is done on a special CT scanner in radiation oncolcgy. The images obtained are used to plan your treatments. This may be scheduled the same day you meet your doctor or in a separate visit. This usually takes between 30 minutes to one hour. You may need an IV for contrast. If so our nurse will let you know that day along with any other special instructions. During this visit we may dennise Your skin with a tiny ???tattoos?? , take pictures or make special molds or masks to help us place you in the exact treatment position every day. After this session it takes up to two weeks for your plan to be developed and checked by your doctor, the dosimetrists and the physicist. ?? Skin Care - Your nurse/physician will provide you with the necessary creams and supplies as you need them during your treatments. Please make sure to keep the treatment area clean and dry. Be sure to notice if your clothing rubs or digs into the treatment area and try to wear clothes which are less abrasive, like cotton or loose fitting. Do not use harsh soaps, ointments, deodorants or tapes in the treatment area unless directed by your nurse or doctor. Keep the treatment area out of the sun during treatments. ?? General precautions- DO NOT USE heating pads, hot water bottles, hot poultices, heat lamps, heat in any form, or ice packs to the area of your body being treated. It is common to start feeling fatigue after a few weeks of being treated. You can help minimize this by getting regular exercise or walking and getting plenty of rest. In general a well balanced diet is recommended. The office machines sales representative and nurse will inform you of any special diet requirements. Avoid shaving the treatment area with a razor. If you must shave use an electric razor. Our Contact numbers Section of Radiation Oncology Our normal business hours are: Tuesday - Tuesday: 8:00 AM to 5:00 PM [facility]: [facility]: If you have questions about your radiation appointments please ask to speak to one of our secretarystaff. If you have questions for a nurse/doctor about radiation treatments, radiation side effects or you are not feeling well it is best to call early in the day. This allows a nurse to return your call by5 PM the same day. If you call after 4 PM, a nurse will return your call by 5 PM the following day unless it is emergent. If you experience any of the following you need to seek emergency care immediately by calling 911 1. Sudden and unexpected breathing difficulty without any exertion 2. Sudden onset of chest pain 3. Sudden onset of severe pain or uncontrolled pain 4. Sudden onset of severe weakness and/or unable to ambulate 5. Sudden new onset of a seizure 6. Fall resulting in injury ?? A Radiation Oncology doctor is hair or beauty salon manager after our normal hours and on weekends. ?? To call for urgent medical issues from radiation treatments that can not wait until normal business hours: ?? Call for either location and have the electrical discharge machine operator page the Radiation Oncologist hair or beauty salon manager. documented in this encounter Plan of Treatment Upcoming Encounters Date Type Department Care Team (Late st Contact Info) Description 10/17/2023 8:30 AM EDT Office Visit Hematology/Oncology at [address] [phone] Boy Tovar MD [facility] DR [place] [address] 10/17/2023 9:00 AM EDT Infusion Hematology Oncology at [address] [phone] Scheduled Orders Name Type Priority Associated Diagnoses Orde r Schedule Simulation for Radiation Therapy Planning Procedures Routine Primary malignant 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 Ordered: 02/06/2021 documented as of this encounter Visit Diagnoses Not on filedocumented in this encounter Care Teams Payroll Administrator Relationship Specialty Start Date End Date Nick Martinez MD [address] [place] [address] PCP - General Internal Medicine 07/01/18 documented as of this encounter
--- OUTSIDE RECORDS SUMMARY | 2023-10-17 04:02 | XMS_ITS | Encounter Summary ---
Author Organization [facility] [place] [address] Care Team Providers Care Edi Programmer Analyst Name Role Phone Nick Martinez MD Primary Care Provider Reason for Referral * Diagnostic Test (Routine) - Closed Specialty Diagnoses / Procedures Referred By Contmilagro t Referred To Contact Radiology Diagnoses Primary malignant 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 Procedures NM PET CT Skull Base to Mid-thigh Boy Tovar MD [facility] DR HEMATOLOGY [place] [address] [place] [phone] Referral ID Status Reason Start Date Expiration Date V isits Requested Visits Authorized [id number] Closed Specialty Service Requested 01/08/2021 07/08/2022 1 1 Reason for Visit * Diagnostic Test (Routine) - Closed Specialty Diagnoses / Procedures Referred By Contmilagro t Referred To Contact Radiology Diagnoses Primary malignant 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 Procedures NM PET CT Skull Base to Mid-thigh Boy Tovar MD [facility] DR HEMATOLOGY [place] [address] [place] [address] Referral ID Status Reason Start Date Expiration Date V isits Requested Visits Authorized [id number] Closed Specialty Service Requested 01/08/2021 07/08/2022 1 1 Encounter Details Date Type Department Care Team (Late st Contact Info) Description 01/19/2021 6:11 AM EST Hospital Encounter [place] [phone] Boy Tovar MD [facility] DR HEMATOLOGY [place] [address] Primary malignant neoplasm of right [...] slept in a long-term (including now)? No 12/22/2020 Sex and Gender [...] AM EDT Office Visit Hematology/Oncology at [address] [phone] Boy Tovar MD [facility] DR HEMATOLOGY [place] [address] 10/17/2023 9:00 AM EDT Infusion Hematology Oncology at [address] [phone] documented as of this encounter Procedures Procedure Name Priority Date/Time Associated Diagnosis Comments NM PET CT SKULL BASE TO MID-THIGH ([facility]) Routine 01/19/2021 8:24 AM EST Primary malignant 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 documented in this encounter Results * NM PET CT Skull Base to Mid-thigh (01/19/2021 8:24 AM EST) Anatomical Region Laterality Modality Positron Emissio n Tomography (PET) Impressions 01/19/2021 10:17 AM EST 1. ??Slight interval increase in size of the 2.4 cm FDG avid spiculated pulmonary nodule in the right middle lobe consistent with biopsy-proven invasive adenocarcinoma. 2. ??Lucila metastases in the left supraclavicular, right hilar, and bilateral mediastinal regions as detailed above. 3. ??No sites of metastatic disease in the abdomen, pelvis, or skeleton. I have personally reviewed the image(s) and the resident's interpretation and agree with the findings, Alfredo Jean-Baptiste MD at 01/19/2021 10:17 AM Thank you for letting us participate in the care of this patient. ??If you are a health care provider and have any questions regarding this report, please contact the number below. ??For patients who have questions please contact the health career education teacher that requested your imaging first. ? Electronically signed by: Alfredo Jean-Baptiste MD, [facility] ([phone]), at 01/19/2021 10:17 AM Narrative 01/19/2021 10:17 AM EST EXAMINATION: NM PET CT STANDARD SKULL BASE TO MID-THIGH CLINICAL HISTORY: Non-small cell lung cancer, staging. Endobronchial ultrasound shows an N3 disease with 4L involvement per electronic medical record. TECHNIQUE: Following IV injection of 77-jdccmz-5-deoxyglucose (FDG) a standard uptake of approximately 60 minutes, a noncontrast CT scan followed by a PET scan were acquired from the base of the skull to mid thighs. The noncontrast CT was used for anatomic localization and photon attenuation correction of the PET scan. Blood glucose level: 114 mg/dL FDG dose: 16.9 mCi COMPARISON: Chest CT on 11/06/2020 FINDINGS: HEAD/NECK: FDG avid 7 mm medial left supraclavicular lymph node (axial image 41) likely increased in size compared to CT of 11/06/2020. CHEST: FDG avid 2.4 cm spiculated pulmonary nodule in the superior portion of the right middle lobe abutting the minor fissure (axial image 94) increased in size from 11/06/2020, when the nodule measured 2.0 cm. Interval development of focal and confluent consolidative, ground glass, and tree-in-bud opacities scattered throughout the right middle, right upper and left upper lobes, consistent with known recent pneumonia. Multiple FDG avid lymph nodes in the right hilar, bilateral lower paratracheal paratracheal, subcarinal, left high paratracheal (axial images 53 through 58), and left high anterior mediastinal regions (axial image 54). Above mentioned mediastinal nodes are stable to slightly increased in size compared to CT of 11/06/2020 Unchanged size of the apical left upper lobe pulmonary nodule measuring 0.7 cm without significant metabolic activity, favored to represent a benign pulmonary nodule and was present with similar size but with groundglass appearance on remote CT of 05/26/2018. ABDOMEN/PELVIS: Normal activity in all soft tissue regions. Scattered atherosclerotic plaque throughout the abdominal aorta and proximal common iliac arteries. SKELETON/EXTREMITIES: Normal activity in all regions of the axial and visualized appendicular skeleton. Procedure Note Alfredo Jean-Baptiste MD - 01/19/2021 EXAMINATION: NM PET CT STANDARD SKULL BASE TO MID-THIGH CLINICAL HISTORY: Non-small cell lung cancer, staging. Endobronchialultrasound shows an N3 disease with 4L involvement per electronic medical record. TECHNIQUE: Following IV injection of 72-dqczyr-2-deoxyglucose (FDG) astandard uptake of approximately 60 minutes, a noncontrast CT scan followed by aPET scan were acquired from the base of the skull to mid thighs. The noncontrast CTwas used for anatomic localization and photon attenuation correction of thePET scan. Blood glucose level: 114 mg/dL FDG dose: 16.9 mCi COMPARISON: Chest CT on 11/06/2020 FINDINGS: HEAD/NECK: FDG avid 7 mm medial left supraclavicular lymph node (axial image 41)likely increased in size compared to CT of 11/06/2020. CHEST: FDG avid 2.4 cm spiculated pulmonary nodule in the superior portion of theright middle lobe abutting the minor fissure (axial image 94) increased in sizefrom 11/06/2020, when the nodule measured 2.0 cm. Interval development of focal and confluent consolidative, ground glass,and tree-in-bud opacities scattered throughout the right middle, right upperand left upper lobes, consistent with known recent pneumonia. Multiple FDG avid lymph nodes in the right hilar, bilateral lowerparatracheal paratracheal, subcarinal, left high paratracheal (axial images 53 [id number]), and left high anterior mediastinal regions (axial image 54). Above mentioned mediastinal nodes are stable to slightly increased insize compared to CT of 11/06/2020 Unchanged size of the apical left upper lobe pulmonary nodule measuring0.7 cm without significant metabolic activity, favored to represent a benignpulmonary nodule and was present with similar size but with groundglass appearanceon remote CT of 05/26/2018. ABDOMEN/PELVIS: Normal activity in all soft tissue regions. Scattered atherosclerotic plaque throughout the abdominal aorta andproximal common iliac arteries. SKELETON/EXTREMITIES: Normal activity in all regions of the axial and visualized appendicular skeleton. IMPRESSION 1. Slight interval increase in size of the 2.4 cm FDG avid spiculatedpulmonary nodule in the right middle lobe consistent with biopsy-proven invasive adenocarcinoma. 2. Lucila metastases in the left supraclavicular, right hilar, andbilateral mediastinal regions as detailed above. 3. No sites of metastatic disease in the abdomen, pelvis, or skeleton. I have personally reviewed the image(s) and the resident's interpretationand agree with the findings, Alfredo Jean-Baptiste MD at 01/19/2021 10:17 AM Thank you for letting us participate in the care of this patient. If youare a health care provider and have any questions regarding this report,please contact the number below. For patients who have questions please contactthe health career education teacher that requested your imaging first. Electronically signed by: Alfredo Jean-Baptiste MD, [facility]([phone]), at 01/19/2021 10:17 AM Boy Tovar MD IMG PET ORDERABLES [...] Intravenous, ONCE PRN, 1 dose, Starting on 01/19/21 at 0718, Until Tue01/19/21 at 0710, Per Protocol, Radiology Contrast, Routine Given 01/19/2021 7:10 AM EST 16.9 mCi Right Arm documented in this encounter Care Teams Edi Programmer Analyst Relationship Specialty Start Date End Date Nick Martinez MD [address] [place] [address] PCP - General Internal Medicine 07/01/18 documented as of this encounter
--- OUTSIDE RECORDS SUMMARY | 2023-10-17 04:02 | XMS_ITS | Encounter Summary ---
Author Organization [facility] Cici bennieterence [place] [id number] Care Team Providers Care Climatology Teacher Name Role Phone Nick Martinez MD Primary Care Provider [phone] Reason for Visit * Reason Comments Chemotherapy Cycle 1, Day 1 - Pac litaxel/Carboplatin * Treatment/Therapy Plan Authorization (Routine) - Specialty Diagnoses / Procedures Referred By Contac t Referred To Contact Diagnoses Primary malignant 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 Procedures TC PALONOSETRON HCL, 25MCG, INJECTION (ALOXI) TC PACLITAXEL, 1MG, INJ TC CARBOPLATIN, 50MG, INJECTION (PARAPLATIN) J2469 palonosetron (Aloxi) 0.25 MG J9267 PACLitaxeL (Taxol) 118 MG J9045 CARBOplatin (Paraplatin) 260 MG Boy Tovar MD [facility] [place] [address] [facility] Hem Onc Office [address] [place] [id number] Referral ID Status Reason Start Date Expiration Date V isits Requested Visits Authorized [id number] 03/02/2021 04/15/2021 20 20 Encounter Details Date Type Department Care Team (Late st Contact Info) Description 03/02/2021 9:30 AM EST Infusion Hematology Oncology at [address] [phone] Primary malignant neoplasm of right upper lobe [...] Progress Notes * Ginette Freeman RN - 03/02/2021 9:30 AM EST INFUSION THERAPY ADMINISTRATION NOTES DIAGNOSIS: NSCLC CYCLE #: Cycle 1, Day 1 - Paclitaxel/Carboplatin concurrent with radiation. REASON FOR VISIT: To receive first cycle of chemotherapy. SUBJECTIVE: Raffy offers no complaints. OBJECTIVE: Seen by provider. Chemotherapy teaching by Neva Zepeda APRN. LAB DATA: 03/02/21 - WBC - 7.63, H/H - 14.4/43.1, plt Ct - 274, ANC - 5.92, Lytes wnl, BUN/Cr - 17/1.2 IV ACCESS: PIV Pre administration: Chemotherapy orders independently verified for drug name, route, and dosage per patient's height, weight and BSA by Ginette Freeman RN and Staff Pharmacist(s). REACTIONS (DESCRIPTION, TIME, INTERVENTION AND EFFECTIVENESS) none ASSESSMENT: Raffy was awake, alert and tolerated treatment well. PIV discontinued prior to dismissal. Pt. chemo teaching instructions reinforced: During clinic hours (8am-5pm Tuesday-Tuesday): pt. can call [phone] with questions or concerns. After clinic hours (5pm-8am Tuesday-Tuesday and weekends) pt can call [phone] and ask for the assembler aircraft power plant/oncologist funeral home location manager. Raffy Latif verbalized understanding of potential chemotherapy side effects and home care including but not limited to- handwashing to prevent infection, signs and symptoms of low blood counts (fever, fatigue, bleeding), to call with a fever of 100.4 or greater, any significant constipation/diarrhea, importance of nutrition and fluid intake (drinking at least 32-64 ounces of non-caffeinated beverages/day), mouth care. Raffy Latif verbalized understanding of how to take prescription medications given for home use after chemotherapy. PLAN: Return to clinic next week for day 8. documented in this encounter Plan of Treatment Upcoming Encounters Date Type Department Care Team (Late st Contact Info) Description 10/17/2023 8:30 AM EDT Office Visit Hematology/Oncology at [address] [phone] Boy Tovar MD [facility] [place] [address] 10/17/2023 9:00 AM EDT Infusion Hematology Oncology at [address] [phone] documented as of this encounter Visit Diagnoses [...] = 2), Intravenous, ONCE, 1 dose, On Tue03/02/21 at 1115, Administer over 30 Minutes, Warning Vesicant/Irritant Medication New Bag 03/02/2021 12:17 PM EST 252 mg 550.4 mL/hr dexamethasone (Decadron) injection 10 mg 10 mg, Intravenous, ONCE, 1 dose, On Tue03/02/21 at 1015, Administer 30 minutes prior to PACLitaxel Given 03/02/2021 10:15 AM EST 10 mg diphenhydrAMINE (Benadryl) (50 mg/mL) injection 25 mg 25 mg, Intravenous, ONCE, 1 dose, On Tue03/02/21 at 1015, Administer 30 minutes prior to PACLitaxel, Routine Given 03/02/2021 10:15 AM EST 25 mg famotidine (Pepcid) (10 mg/mL) injection 20 mg 20 mg, Intravenous, ONCE, 1 dose, On Tue03/02/21 at 1015, Administer 30 minutes prior to PACLitaxel Given 03/02/2021 10:15 AM EST 20 mg PACLitaxeL (Taxol) 118 mg in sodium chloride 0.9% Non-PVC 269.6667 mL infusion 118 mg (rounded from 117.5 mg = 50 mg/m2/dose ? 2.35 m2 Treatment Plan BSA from Recorded weight), Intravenous, ONCE, 1 dose, On Tue03/02/21 at 1115, Administer over 60 Minutes, Warning Vesicant/Irritant Medication New Bag 03/02/2021 11:05 AM EST 118 mg 269.7 mL/hr palonosetron (Aloxi) (0.05 mg/mL) injection 0.25 mg 0.25 mg, Intravenous, ONCE, 1 dose, On 03/02/21 at 1015, Administer over 30 seconds., Routine Given 03/02/2021 10:14 AM EST 0.25 mg documented in this encounter Care Teams Climatology Teacher Relationship Specialty Start Date End Date Nick Martinez MD [address] [place] [address] PCP - General Internal Medicine 07/01/18 documented as of this encounter
--- OUTSIDE RECORDS SUMMARY | 2023-10-17 04:02 | XMS_ITS | Encounter Summary ---
[place] [address] Care Team Providers Care Order Worker Name Role Phone Nick Martinez MD Primary Care Provider [phone] Reason for Visit * Reason Onset Date Comments Prior Authorization 01/16/2021 Molecular ca ncer testing authorization - Submitted Encounter Details Date Type Department Care Team (Late st Contact Info) Description 01/16/2021 Telephone [place] [address] Michelle Castillo Prior Authorization (Molecular cancer testing authorization - Submitted) Social History Tobacco Use Types Packs/Day Years [...] encounter Miscellaneous Notes * Telephone Encounter - Michelle Castillo - 01/27/2021 8:27 AM EST Molecular cancer testing authorization - Approval: [facility] ([facility]) approval of molecular cancer testing has been scanned into the patient's Media folder. Auth: [id number]. Valid: 12/31/2020 through 04/02/2021. Lab: [facility] [place]PT: 08939. Dx: C34.11/lung cancer. Ordering: Roman Teran MD ([id number]). I will e-mail Caryn to let her know of the approval. * Telephone Encounter - Michelle Castillo - 01/16/2021 3:38 PM EST Molecular cancer testing authorization - Submitted: I received an e-mail from Caryn in [employer] ([id number]) requesting coverage review for CPT 50316 which is to be onlung cancer tissue obtained on 12/31/20. Ordering provider is Jamarcus Teran MD ([id number]). Per a call to [facility] ( ), policy [id number] is active. CPT 03824 needs authorization whichwas submitted to [facility] via fax to . The fax confirmation and Request Form are scanned in the patient's Media folder. Ref: [id number]. I will e-mail Caryn to let her know of the submission. documented in this encounter Plan of Treatment Upcoming Encounters Date Type Department Care Team (Late st Contact Info) Description 10/17/2023 8:30 AM EDT Office Visit Hematology/Oncology at [address] [phone] Boy Tovar MD [facility] DR HEMATOLOGY [place] [address] 10/17/2023 9:00 AM EDT Infusion Hematology Oncology at [address] [phone] documented as of this encounter Visit Diagnoses Not on filedocumented in this encounter Care Teams Order Worker Relationship Specialty Start Date End Date Nick Martinez MD [address] [place] [address] PCP - General Internal Medicine 07/01/18 documented as of this encounter
--- OUTSIDE RECORDS SUMMARY | 2023-10-17 04:02 | XMS_ITS | Encounter Summary ---
Author Organization [facility] Address [facility] [place] [address] Care Team Providers Care Combination Presser Name Role Phone Nick Martinez MD Primary Care Provider [phone] Encounter Details Date Type Department Care Team (Late st Contact Info) Description 01/06/2021 Telephone Hematology [place] [address] Boy Tovar MD [facility] DR HEMATOLOGY [place] [address] Social History Tobacco Use Types Packs/Day Years [...] in a skilled nursing (including now)? No 12/22/2020 Sex and Gender Information Value Date Recorded Sex Assigned at Not on file Gender Identity Not on file Sexual Orientation Not on file documented as of this encounter Miscellaneous Notes * Telephone Encounter - Boy Tovar MD - 01/06/2021 9:42 AM EDT Attempted to call Raffy regarding the EBUS results (which unfortunately shows N3 disease with 4L involvement meaning he is not a surgical candidate and would need to be considered for definitive chemotherapy/RT assuming he does not have more advanced disease) and also the PET scan which he was notable to tolerate yesterday. Also still need the MRI brain. No answer at home or VM. Left VM on his cell asking for call back to discuss. documented in this encounter Plan of Treatment Upcoming Encounters Date Type Department Care Team (Late st Contact Info) Description 10/17/2023 8:30 AM EDT Office Visit Hematology/Oncology at [address] [phone] Boy Tovar MD [facility] DR HEMATOLOGY [place] [address] 10/17/2023 9:00 AM EDT Infusion Hematology Oncology at [address] [phone] documented as of this encounter Visit Diagnoses Not on filedocumented in this encounter Care Teams Combination Presser Relationship Specialty Start Date End Date Nick Martinez MD [address] [place] [address] PCP - General Internal Medicine 07/01/18 documented as of this encounter
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
--- OUTSIDE RECORDS SUMMARY | 2023-10-17 04:02 | XMS_ITS | Encounter Summary ---
Author Organization [facility] [place] [address] Care Team Providers Care Marketing Development Representative Name Role Phone Nick Martinez MD Primary Care Provider [phone] Encounter Details Date Type Department Care Team (Late st Contact Info) Description 03/09/2021 Notes Only Hematology/Oncology at [address] [phone] Azalea Watkins, [employer] OFFICE OF CARE MANAGEMENT Social History Tobacco [...] Progress Notes * Azalea Watkins MSW - 03/09/2021 9:20 AM EST Follow up with pt during his infusion visit today. Pt indicated he is managing day to day. His wifeand family are also doing well. He is working some for as long as he can but the reduced income is a challenge. Pt again expressed his appreciation for help from the [facility] for his heating fuel costs. Pt indicated they are otherwise managing right now. Pt did not identify any new needs today. Offered support. Reminded pt of [employer] availability and contact information. Will continue to follow for support and resources. Brief assessment Supportive Counseling Financial resources documented in this encounter Plan of Treatment Upcoming Encounters Date Type Department Care Team (Late st Contact Info) Description 10/17/2023 8:30 AM EDT Office Visit Hematology/Oncology at [address] [phone] Boy Tovar MD [facility] HEMATOLOGY [place] [address] 10/17/2023 9:00 AM EDT Infusion Hematology Oncology at [address] [phone] documented as of this encounter Visit Diagnoses Not on filedocumented in this encounter Care Teams Marketing Development Representative Relationship Specialty Start Date End Date Nick Martinez MD [address] [place] [address] PCP - General Internal Medicine 07/01/18 documented as of this encounter
--- OUTSIDE RECORDS SUMMARY | 2023-10-17 04:02 | XMS_ITS | Encounter Summary ---
Author Organization [facility] [place] [address] Care Team Providers Care Grinder Machine Knife Setter Name Role Phone Nick Martinez MD Primary Care Provider [phone] Encounter Details Date Type Department Care Team (Late st Contact Info) Description 03/17/2021 Notes Only Tobacco Treatment at [address] [phone] Janeth Chow Social History Tobacco Use Types Packs/Day Years [...] as of this encounter Progress Notes * Janeth Chow LNA - 03/17/2021 2:48 PM ESTSummary: Tobacco Cessation Visit Meet with Raffy yesterday during visit with Dr. Tovar (03/16/21) when asked about tobacco use he reported that he is currently on a 14 mg patch to help with his oral tobacco use. He explained that the 14 mg patch was not strong enough and I offered him a two week supply of the 21 mg patch to try which he accepted. Dr. Tovar also wrote a new prescription for the 21 mg patch for when he needs a refill. Will follow up with Raffy in the next 1-2 weeks. documented in this encounter Plan of Treatment Upcoming Encounters Date Type Department Care Team (Late st Contact Info) Description 10/17/2023 8:30 AM EDT Office Visit Hematology/Oncology at [address] [phone] Boy Tovar MD [facility] HEMATOLOGY [place] [address] 10/17/2023 9:00 AM EDT Infusion Hematology Oncology at [address] [phone] documented as of this encounter Visit Diagnoses Not on filedocumented in this encounter Care Teams Grinder Machine Knife Setter Relationship Specialty Start Date End Date Nick Martinez MD [address] [place] [address] PCP - General Internal Medicine 07/01/18 documented as of this encounter
--- OUTSIDE RECORDS SUMMARY | 2023-10-17 04:02 | XMS_ITS | Encounter Summary ---
Author Organization [facility] [place] [address] Care Team Providers Care Crisis Therapist Name Role Phone Nick Martinez MD Primary Care Provider [phone] Encounter Details Date Type Department Care Team (Late st Contact Info) Description 03/04/2021 5:00 PM EST Office Visit Radiation Oncology at [address] [phone] Parker Ross MD [facility] [place] [address] Primary malignant neoplasm of right upper lobe [...] Sign Reading Time Taken Comments Blood Pressure 130/75 03/04/2021 4:33 PM EST Pulse 90 03/04/2021 4:33 PM EST Temperature - - Respiratory Rate - - Oxygen Saturation 99% 03/04/2021 4:33 PM EST Inhaled Oxygen Concentration - - Weight 112.4 kg (247 lb 12.8 oz) 03/04/2021 4:33 PM EST Height - - Body Mass Index 35.05 03/02/2021 9:02 AM EST documented in this encounter Progress Notes * Parker Ross MD - 03/04/2021 5:00 PM EST ON TREATMENT VISIT NOTE Raffy Latif is a 60 y.o. male with cT1cN3 (Stage III-C) non-small cell lung cancer (adenocarcinoma). Definitive chemoradiotherapy. Current treatment dose: 12 Gy in 6 fractions. Anticipated total dose: 60 Gy in 30 fractions. Concomitant Therapy: Y ONC BCA CHEMO (AMB) 03/02/2021 Day, Cycle Day 1, Cycle 1 CARBOplatin (Paraplatin) IV 252 mg PACLitaxeL (Taxol) IV 50 mg/m2/dose Evaluation of Port Verification Films: PORT films have been reviewed, please see ARIA for details. Changes in medical condition Pain: denies Dyspnea/Cough: no issues GI: -N/V: one episode of nausea, has compazine -Bowels: no issues Esophagitis: no issues Smoking: chewing tobacco down on nicotine Nutrition Assessment: Weight : 113 kg initial Change: 113 = > 112.4 Objective: Vitals: 03/04/21 1633 BP: 130/75 Patient Position: Sitting Pulse: 90 TempSrc: Temporal SpO2: 99% Weight: 112.4 kg (247 lb 12.8 oz) SKIN: no skin erythema LUNGS: CTAB no w/r/r Assessment: No toxicity CTCAE TOXICITY GRADES (see below for mcmahon): Site Grade Skin 0 Cough 0 Dyspnea 0 Esophagitis 0 TREATMENT RESPONSE: No change Plan: ?? Continue RT per prescription ?? Skin: Jeans cream QD ?? Pain control: no intervention needed at this time ?? Esophagitis: no intervention needed at this time ?? Cough/Dyspnea: No intervention needed at this time ?? Alimentation: followed by adding machine operator, weight stable, all by mouth CTCAE v4.03 scales for reference Skin 0 [...] AM EDT Office Visit Hematology/Oncology at [address] [phone] Boy Tovar MD [facility] [address] [place] [address] 10/17/2023 9:00 AM EDT Infusion Hematology Oncology at [address] [phone] documented as of this encounter Visit Diagnoses [...] gland documented in this encounter Care Teams Crisis Therapist Relationship Specialty Start Date End Date Nick Martinez MD [address] [place] [address] PCP - General Internal Medicine 07/01/18 documented as of this encounter
--- OUTSIDE RECORDS SUMMARY | 2023-10-17 04:02 | XMS_ITS | Encounter Summary ---
Author Organization [facility] [place] [address] Care Team Providers Care Tile Layer Helper Name Role Phone Nick Martinez MD Primary Care Provider Reason for Referral * Consultation (Routine) - Closed Specialty Diagnoses / Procedures Referred By Mariana workman Referred To Contact Thoracic Surgery Diagnoses Primary malignant 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 Primary malignant 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 Boy Tovar MD [facility] [place] [address] Rafa Small MD [facility] [place] [address] Referral ID Status Reason Start Date Expiration Date V isits Requested Visits Authorized [id number] Closed Consult, Test & Treat 01/02/2021 01/02/2022 1 1 Encounter Details Date Type Department Care Team (Late st Contact Info) Description 01/02/2021 Orders Only [place]ematology [place] [phone] Boy Tovar MD [facility] [place] [address] Primary malignant neoplasm of right upper lobe [...] slept in a residential (including now)? No 12/22/2020 Sex and Gender Information Value Date Recorded Sex Assigned at Not on file Gender Identity Not on file Sexual Orientation Not on file documented as of this encounter Plan of Treatment Upcoming Encounters Date Type Department Care Team (Late st Contact Info) Description 10/17/2023 8:30 AM EDT Office Visit Hematology/Oncology at [address] [phone] Boy Tovar MD [facility] [place] [address] 10/17/2023 9:00 AM EDT Infusion Hematology Oncology at [address] [phone] Scheduled Referrals Name Type Priority Associated Diagnoses Orde r Schedule Referral to Thoracic Surgery Outpatient Referral Routine Primary malignant 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 Ordered: 01/02/2021 documented as of this encounter Visit Diagnoses [...] gland documented in this encounter Care Teams Tile Layer Helper Relationship Specialty Start Date End Date Nick Martinez MD [address] [place] [address] PCP - General Internal Medicine 07/01/18 documented as of this encounter
--- OUTSIDE RECORDS SUMMARY | 2023-10-17 04:02 | XMS_ITS | Encounter Summary ---
Author Organization [facility] [place] [address] Care Team Providers Care Etl Informatica Architect Name Role Phone Nick Martinez MD Primary Care Provider [phone] Encounter Details Date Type Department Care Team (Late st Contact Info) Description 03/04/2021 Notes Only Hematology/Oncology at [address] [phone] Azalea Watkins, CONCRETE FENCE BUILDER OFFICE OF CARE MANAGEMENT Social History Tobacco [...] Progress Notes * Azalea Watkins MSW - 03/04/2021 8:31 AM EST Received copy of pt's heating fuel bill and completed an application to the [facility] requesting financial assistance with this. Application submitted per pt's request. Will notify pt re their decisionre assistance. Financial resources Community Resource documented in this encounter Plan of Treatment Upcoming Encounters Date Type Department Care Team (Late st Contact Info) Description 10/17/2023 8:30 AM EDT Office Visit Hematology/Oncology at [address] [phone] Boy Tovar MD [facility] DR [place] [address] 10/17/2023 9:00 AM EDT Infusion Hematology Oncology at [address] [phone] documented as of this encounter Visit Diagnoses Not on filedocumented in this encounter Care Teams Etl Informatica Architect Relationship Specialty Start Date End Date Nick Martinez MD [address] [place] [address] PCP - General Internal Medicine 07/01/18 documented as of this encounter
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
--- OUTSIDE RECORDS SUMMARY | 2023-10-17 04:02 | XMS_ITS | Encounter Summary ---
Author Organization [facility] [place] [address] Care Team Providers Care Drop Wire Aliner Name Role Phone Nick Martinez MD Primary Care Provider [phone] Encounter Details Date Type Department Care Team (Late st Contact Info) Description 03/11/2021 4:45 PM EST Office Visit Radiation Oncology at [address] [phone] Parker Ross MD [facility] [place] [address] Primary malignant neoplasm of right upper lobe [...] No 02/04/2021 Housing Stability Vital Sign Answer Ojrge e Recorded In the last 12 months, [...] Reading Time Taken Comments Blood Pressure 122/75 03/11/2021 4:32 PM EST Pulse 82 03/11/2021 4:32 PM EST Temperature 36.7 ??C (98.1 ??F) 03/11/2021 4:32 PM ES T Respiratory Rate 20 03/11/2021 4:32 PM EST Oxygen Saturation 98% 03/11/2021 4:32 PM EST Inhaled Oxygen Concentration - - Weight 111.4 kg (245 lb 9.6 oz) 03/11/2021 4:32 PM EST shoes on Height - - Body Mass Index 34.73 03/09/2021 8:13 AM EST documented in this encounter Progress Notes * Parker Ross MD - 03/11/2021 4:45 PM EST ON TREATMENT VISIT NOTE Raffy Latif is a 60 y.o. male with cT1cN3 (Stage III-C) non-small cell lung cancer (adenocarcinoma). Definitive chemoradiotherapy. Current treatment dose: 20 Gy in 10 fractions. Anticipated total dose: 60 Gy in 30 fractions. Concomitant Therapy: Y ONC BCA CHEMO (AMB) 03/02/2021 03/09/2021 Day, Cycle Day 1, Cycle 1 Day 8, Cycle 1 CARBOplatin (Paraplatin) IV 252 mg [...] Assessment: Weight : 113 kg initial Change: 112.4 = > 111.4 Objective: Vitals: 03/11/21 1632 BP: 122/75 Patient Position: Sitting Pulse: 82 Resp: 20 Temp: 36.7 ??C (98.1 ??F) TempSrc: Temporal SpO2: 98% Weight: 111.4 kg (245 lb 9.6 oz) SKIN: no skin erythema LUNGS: CTAB no w/r/r Assessment: Minimal toxicity CTCAE TOXICITY GRADES (see below for mcmahon): Site Grade Skin 0 Cough 0 Dyspnea 0 Esophagitis 0 TREATMENT RESPONSE: No change Plan: ?? Continue RT per prescription ?? Skin: Jeans cream QD ?? Pain control: no intervention needed at this time ?? Esophagitis: no intervention needed at this time ?? Cough/Dyspnea: No intervention needed at this time ?? Alimentation: followed by workers' compensation commissioner, weight stable, all by mouth CTCAE v4.03 [...] AM EDT Office Visit Hematology/Oncology at [address] [phone] Boy Tovar MD [facility] DR HEMAT[place] [address] 10/17/2023 9:00 AM EDT Infusion Hematology Oncology at [address] [phone] documented as of this encounter Visit Diagnoses [...] gland documented in this encounter Care Teams Drop Wire Aliner Relationship Specialty Start Date End Date Nick Martinez MD [address] [place] [address] PCP - General Internal Medicine 07/01/18 documented as of this encounter
--- OUTSIDE RECORDS SUMMARY | 2023-10-17 04:02 | XMS_ITS | Encounter Summary ---
Author Organization [facility] [place] [address] Care Team Providers Care Multilith Operator Name Role Phone Nick Martinez MD Primary Care Provider Encounter Details Date Type Department Care Team (Late st Contact Info) Description 01/19/2021 Orders Only Hematology/Oncology at [address] [phone] Boy Tovar MD [facility] [address] [place] [address] Primary malignant 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; Claustrophobia Social History Tobacco Use Types Packs/Day Years [...] slept in a halfway (including now)? No 12/22/2020 Sex and Gender Information Value Date Recorded Sex Assigned at Not on file Gender Identity Not on file Sexual Orientation Not on file documented as of this encounter Plan of Treatment Upcoming Encounters Date Type Department Care Team (Late st Contact Info) Description 10/17/2023 8:30 AM EDT Office Visit Hematology/Oncology at [address] [phone] Boy Tovar MD 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
--- OUTSIDE RECORDS SUMMARY | 2023-10-17 04:02 | XMS_ITS | Encounter Summary ---
Author Organization [facility] [place] [address] Care Team Providers Care Textile Machinery Sales Representative Name Role Phone Nick Martinez MD Primary Care Provider Encounter Details Date Type Department Care Team (Late st Contact Info) Description 03/18/2021 5:00 PM EST Office Visit Radiation Oncology at [address] [phone] Parker Ross MD [facility] [place] [address] Primary malignant neoplasm of right upper lobe [...] Sign Reading Time Taken Comments Blood Pressure 114/62 03/18/2021 4:24 PM EST Pulse 88 03/18/2021 4:24 PM EST Temperature 36.5 ??C (97.7 ??F) 03/18/2021 4:24 PM ES T Respiratory Rate 18 03/18/2021 4:24 PM EST Oxygen Saturation 99% 03/18/2021 4:24 PM EST Inhaled Oxygen Concentration - - Weight 110.2 kg (243 lb) 03/18/2021 4:24 PM EST with shoe Height - - Body Mass Index 34.36 03/16/2021 8:29 AM EST documented in this encounter Progress Notes * Parker Ross MD - 03/18/2021 5:00 PM EST ON TREATMENT VISIT NOTE Raffy Latif is a 60 y.o. male with cT1cN3 (Stage III-C) non-small cell lung cancer (adenocarcinoma). Definitive chemoradiotherapy. Current treatment dose: 30 Gy in 15 fractions. Anticipated total dose: 60 Gy in 30 fractions. Concomitant Therapy: Y ONC BCA CHEMO (AMB) 03/02/2021 03/09/2021 03/16/2021 Day, Cycle Day 1, Cycle 1 Day 8, Cycle 1 Day 15, Cycle 1 CARBOplatin (Paraplatin) IV 252 mg 252 mg 252 mg PACLitaxeL (Taxol) IV 50 mg/m2/dose 50 mg/m2/dose 50 mg/m2/dose Evaluation of Port Verification Films: PORT films have been reviewed, please see ETHAN for details. Changes in medical condition Pain: low neck pain has resolved Dyspnea/Cough: no issues GI: -N/V: minimal nausea, has compazine -Bowels: no issues Esophagitis: occasional irritation when swallowing. Mild. Using carafate to good effect. Smoking: chewing tobacco down on nicotine Nutrition Assessment: Weight : 113 kg initial Change: 111.4 = > 110.2 Objective: Vitals: 03/18/21 1624 BP: 114/62 Patient Position: Sitting Pulse: 88 Resp: 18 Temp: 36.5 ??C (97.7 ??F) SpO2: 99% Weight: 110.2 kg (243 lb) SKIN: no skin erythema LUNGS: CTAB no [...] at this time ?? Alimentation: followed by analysis analyst, weight stable, all by mouth CTCAE v4.03 [...] AM EDT Office Visit Hematology/Oncology at [address] [phone] Boy Tovar MD [facility] DR HEMATOLOGY [place] [address] 10/17/2023 9:00 AM EDT Infusion Hematology Oncology at [address] [phone] documented as of this encounter Visit Diagnoses [...] gland documented in this encounter Care Teams Textile Machinery Sales Representative Relationship Specialty Start Date End Date Nick Martinez MD [address] [place] [address] PCP - General Internal Medicine 07/01/18 documented as of this encounter
--- OUTSIDE RECORDS SUMMARY | 2023-10-17 04:02 | XMS_ITS | Encounter Summary ---
Author Organization [facility] [place] [address] Care Team Providers Care Conveyor Man Name Role Phone Nick Martinez MD Primary Care Provider Encounter Details Date Type Department Care Team (Late st Contact Info) Description 02/11/2021 3:30 PM EST Office Visit Radiation Oncology at [address] [phone] Parker Ross MD [facility] [place] [address] Primary malignant neoplasm of right upper lobe [...] Sign Reading Time Taken Comments Blood Pressure 127/67 02/11/2021 3:39 PM EST Pulse 73 02/11/2021 3:39 PM EST Temperature 36.5 ??C (97.7 ??F) 02/11/2021 3 :39 PM EST Respiratory Rate 18 02/11/2021 3:39 PM EST Oxygen Saturation 99% 02/11/2021 3:3 9 PM EST Inhaled Oxygen Concentration - - Weight 112.1 kg (247 lb 3.2 oz) 021 3:39 PM EST with shoes Height - - Body Mass Index 35.51 12/22/2020 3:59 PM EDT documented in this encounter Patient Instructions * Patient Instructions* Alyssa Brar RN - 02/11/2021 3:30 PM EST General instructions for Radiation therapy [...] to help manage the side effects. ?? Tin Recovery Worker - They take the doctors radiation prescription [...] a well balanced diet is recommended. The powderman and nurse will inform you of any special diet requirements. Avoid shaving the treatment area with a razor. If you must shave use an electric razor. Our Contact numbers Section of Radiation Oncology Our normal business hours are: Tuesday - Tuesday: 8:00 AM to 5:00 PM [facility]: [facility]: If you have questions about your radiation [...] injury ?? A Radiation Oncology doctor is motion picture projectionist apprentice after our normal hours and on weekends. ?? To call for urgent medical issues from radiation treatments that can not wait until normal business hours: ?? Call for either location and have the pipe bending machine operator page the Radiation Oncologist motion picture projectionist apprentice. documented in this encounter Progress Notes * Alyssa Brar RN - 02/11/2021 3:30 PM EST Section of Radiation Oncology Contrast Information Safety Questions 1. Has the patient ever had an x-ray study before which involved injection of a contrast agent or x-ray dye? Yes If yes, did the patient have any reaction to the injection? no If yes, please describe the reaction: n/a 2. Is the patient allergic to any foods, medicines, or other substances? yes Allergies Allergen Reactions ??? Penicillins Nausea Only 3. Has the patient received any contrast within the past 24 hours? No 4. Does the patient have any procedures scheduled in the next 24 hours? No 5. Does the patient have a history of renal/kidney problems or kidney surgery? No 6. Does the patient have diabetes? No 7. Does the patient have high blood pressure? Yes 8. Is the patient currently being treated for gout? No 9. If the answer to any of the questions #5-8 was yes, has the patient had a creatinine level and eGFR drawn within the past 45 days? 02/11/21- 1.2 EGFR >=60 If no, when will it be drawn? A creatinine less than or equal to 1.6 and a eGFR of 45 or greater OK to proceed with IV contrast. If the creatinine is greater than 1.6 and the eGFR is less than 45, consult with the ordering provider. If an eGFR is less than 30, IV contrast should not be administered and another contrast agent may be ordered by the provider (Visipaque). 10. Is the patient currently taking any of the following medications? (Actoplus Met, Avandamet, Glucovance, Janumet, Jendadueto, Kombiglyze, Metaglip, PrandiMet, Glugophage, Glumetza, Riomet, Metformin) No If yes, when was last dose taken? n/a 9. If patient is on any of the medications in question #10, consult with the ordering provider if the patient needs to stop the medication and if they will require further lab studies. * Parker Ross MD - 02/11/2021 3:30 PM EST Raffy Latif was simulated in anticipation of radiotherapy for non small cell lung cancer. The consent was reviewed with the physician and signed by both the patient and physician. An intravenous line was placed in anticipation of contrast administration. The patient was then brought to the simulation room and a time-out was performed per protocol. The pt was immobilized via a vacuum bag, with arms overhead. The gating box was placed and the breathing pattern was evaluated by the physician. A4D CT scan with intravenous contrast was performed, and tattoos were created by the therapy staff as indicated. The patient tolerated the procedure without difficulty, and he was given a start time to return to start radiotherapy. documented in this encounter Plan of Treatment Upcoming Encounters Date Type Department Care Team (Late st Contact Info) Description 10/17/2023 8:30 AM EDT Office Visit Hematology/Oncology at [address] [phone] Boy Tovar MD [facility] [place] [address] 10/17/2023 9:00 AM EDT Infusion Hematology Oncology at [address] [phone] documented as of this encounter Visit Diagnoses [...] gland documented in this encounter Care Teams Conveyor Man Relationship Specialty Start Date End Date Nick Martinez MD [address] [place] [address] PCP - General Internal Medicine 07/01/18 documented as of this encounter
--- OUTSIDE RECORDS SUMMARY | 2023-10-17 04:02 | XMS_ITS | Encounter Summary ---
Author Organization [facility] [place] [address] Care Team Providers Care Play Writer Name Role Phone Nick Martinez MD Primary Care Provider Encounter Details Date Type Department Care Team (Late st Contact Info) Description 02/25/2021 5:00 PM EST Office Visit Radiation Oncology at [address] [phone] [facility] [place] [address] Primary malignant neoplasm of right upper lobe [...] Sign Reading Time Taken Comments Blood Pressure 123/73 02/25/2021 4:43 PM EST Pulse 83 02/25/2021 4:43 PM EST Temperature 36.5 ??C (97.7 ??F) 02/25/2021 4 :43 PM EST Respiratory Rate - - Oxygen Saturation 98% 02/25/2021 4:4 3 PM EST Inhaled Oxygen Concentration - - Weight 113 kg (249 lb 3.2 oz) 4:43 PM EST with work boots Height - - Body Mass Index 35.8 12/22/2020 3:59 PM EDT documented in this encounter Progress Notes * Parker Ross MD - 02/25/2021 5:00 PM EST ON TREATMENT VISIT NOTE Raffy Latif is a 60 y.o. male with cT1cN3 (Stage III-C) non-small cell lung cancer (adenocarcinoma). Definitive chemoradiotherapy. Current treatment dose: 6 Gy in 3 fractions. Anticipated total dose: 60 Gy in 30 fractions. Concomitant Therapy: Y Evaluation of Port Verification Films: PORT films have been reviewed, please see ARIA for details. Changes in medical condition Pain: denies Dyspnea/Cough: no issues Esophagitis: no issues Nutrition Assessment: Weight : 113 kg initial Change: NA Objective: Vitals: 02/25/21 1643 BP: 123/73 Patient Position: Sitting Pulse: 83 Temp: 36.5 ??C (97.7 ??F) TempSrc: Temporal SpO2: 98% Weight: 113 kg (249 lb 3.2 oz) SKIN: no skin erythema LUNGS: CTAB no w/r/r Assessment: No toxicity, treatment started within the last week. CTCAE TOXICITY GRADES (see below for mcmahon): Site Grade Skin 0 Cough 0 Dyspnea 0 Esophagitis 0 TREATMENT RESPONSE: No change Plan: ?? Continue RT per prescription ?? Skin: Jeans cream QD ?? Pain control: no intervention needed at this time ?? Esophagitis: no intervention needed at this time ?? Cough/Dyspnea: No intervention needed at this time ?? Alimentation: followed by make up operator helper, weight stable, all by mouth CTCAE v4.03 [...] AM EDT Office Visit Hematology/Oncology at [address] [phone] [facility] DR [place] [address] 10/17/2023 9:00 AM EDT Infusion Hematology Oncology at [address] [phone] documented as of this encounter Visit Diagnoses [...] gland documented in this encounter Care Teams Play Writer Relationship Specialty Start Date End Date Nick Martinez MD [address] [place] [address] PCP - General Internal Medicine 07/01/18 documented as of this encounter
--- OUTSIDE RECORDS SUMMARY | 2023-10-17 04:02 | XMS_ITS | Encounter Summary ---
[place] [address] Care Team Providers Care Administrative Services Assistant Name Role Phone Nick Martinez MD Primary Care Provider Encounter Details Date Type Department Care Team (Late st Contact Info) Description 01/19/2021 Ancillary Procedure [place] [phone] Nick Martinez MD [address] [place] [address] Social History Tobacco Use Types [...] in a care home (including now)? No 12/22/2020 Sex and Gender Information Value Date Recorded Sex Assigned at Not on file Gender Identity Not on file Sexual Orientation Not on file documented as of this encounter Plan of Treatment Upcoming Encounters Date Type Department Care Team (Late st Contact Info) Description 10/17/2023 8:30 AM EDT Office Visit Hematology/Oncology at [address] [phone] Boy Tovar MD [facility] [address] [place] [address] 10/17/2023 9:00 AM EDT Infusion Hematology Oncology at [address] [phone] documented as of this encounter Procedures Procedure Name Priority Date/Time Associated Diagnosis Comments FILM LIBRARY STORAGE ONLY MR HEAD Routine 01/19/2021 12:00 AM EST documented in this encounter Results * Film Library- Storage Only MR Head (01/19/2021 12:00 AM EST) Narrative JASON FAY - 01/20/2021 8:08 AM EST This exam is auto-finalizing. It's purpose is for storage only. Nick Martinez MD IMG FILM LIBRARY ORD ERABLES RAD [place], [place] documented in this encounter Visit Diagnoses Not on filedocumented in this encounter Care Teams Administrative Services Assistant Relationship Specialty Start Date End Date Nick Martinez MD [address] [place] [address] PCP - General Internal Medicine 07/01/18 documented as of this encounter
--- OUTSIDE RECORDS SUMMARY | 2023-10-17 04:02 | XMS_ITS | Encounter Summary ---
Author Organization [facility] [place] [address] Care Team Providers Care Tube Blower Name Role Phone Nick Martinez MD Primary Care Provider [phone] Encounter Details Date Type Department Care Team (Late st Contact Info) Description 01/06/2021 Orders Only Hematology/Oncology at [address] [phone] Linda Zepeda, RN Primary malignant [...] slept in a [facility] (including now)? No 12/22/2020 Sex and Gender Information Value Date Recorded Sex Assigned at Not on file Gender Identity Not on file Sexual Orientation Not on file documented as of this encounter Plan of Treatment Upcoming Encounters Date Type Department Care Team (Late st Contact Info) Description 10/17/2023 8:30 AM EDT Office Visit Hematology/Oncology at [address] [phone] Boy Tovar MD [facility] DR [place] [address] 10/17/2023 9:00 AM EDT Infusion Hematology Oncology at [address] [phone] documented as of this encounter Visit Diagnoses [...] gland documented in this encounter Care Teams Tube Blower Relationship Specialty Start Date End Date Nick Martinez MD [address] [place] [address] PCP - General Internal Medicine 07/01/18 documented as of this encounter
--- OUTSIDE RECORDS SUMMARY | 2023-10-17 04:02 | XMS_ITS | Encounter Summary ---
Author Organization [facility] [place] [address] Care Team Providers Care Freight Manager Name Role Phone Nick Martinez MD Primary Care Provider Reason for Referral * Consultation (Routine) - Closed Specialty Diagnoses / Procedures Referred By Mariana workman Referred To Contact Radiation Oncology Diagnoses Primary malignant 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 Boy Tovar MD [facility] [place] [address] [facility] Onc [address] [phone] Referral ID Status Reason Start Date Expiration Date V isits Requested Visits Authorized [id number] Closed Consult, Test & Treat 01/08/2021 01/08/2022 1 1 * Diagnostic Test (Routine) - Closed Specialty Diagnoses / Procedures Referred By Mariana workman Referred To Contact Radiology Diagnoses Primary malignant 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 Procedures NM PET CT Skull Base to Mid-thigh Boy Tovar MD [facility] [place] [address] [facility] [place] [address] Referral ID Status Reason Start Date Expiration Date V isits Requested Visits Authorized [id number] Closed Specialty Service Requested 01/08/2021 07/08/2022 1 1 Encounter Details Date Type Department Care Team (Late st Contact Info) Description 01/08/2021 Telephone Hematology and Oncology at [facility] [place] [phone] Boy Tovar MD [facility] [place] [address] Social History Tobacco Use Types Packs/Day Years [...] slept in a alf (including now)? No 12/22/2020 Sex and Gender Information Value Date Recorded Sex Assigned at Not on file Gender Identity Not on file Sexual Orientation Not on file documented as of this encounter Miscellaneous Notes * Telephone Encounter - Boy Tovar MD - 01/08/2021 2:46 PM EDT Raffy called back: We discussed the path findings from the EBUS which mean he is not a surgical candidate and that we need to stage him with a PET scan JLUIS (and MRI) to determine if he is a candidate for Chemotherapy/RT I had given him lorazepam for anticipated claustrophobia that would occur with his MRI but sems he needs this for the PET scan so we discussed that he should take these to help him tolerate the PET scan. Will ask scheduling to reschedule the PET scan as soon as possible. Will also refer to radiation oncology at [facility] which should be scheduled for after the PET scan is done (in case he has more advanced disease) documented in this encounter Plan of Treatment Upcoming Encounters Date Type Department Care Team (Late st Contact Info) Description 10/17/2023 8:30 AM EDT Office Visit Hematology/Oncology at [address] [phone] Boy Tovar MD [facility] [place] [address] 10/17/2023 9:00 AM EDT Infusion Hematology Oncology at [address] [phone] Scheduled Referrals Name Type Priority Associated Diagnoses Orde r Schedule Referral to Radiation Oncology Outpatient Referral Routine Primary malignant 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 Ordered: 01/08/2021 documented as of this encounter Results * [...] who have questions please contact the health home care manager that requested your imaging first. ? Electronically signed by: Alfredo Jean-Baptiste MD, [facility] ([phone]), at 01/19/2021 10:17 AM Narrative 01/19/2021 10:17 AM EST EXAMINATION: NM PET CT STANDARD SKULL BASE TO MID-THIGH CLINICAL HISTORY: Non-small cell lung cancer, staging. Endobronchial ultrasound shows an N3 disease with 4L involvement per electronic medical record. TECHNIQUE: Following IV injection of 92-vqbulb-2-deoxyglucose (FDG) a standard uptake of approximately 60 [...] medical record. TECHNIQUE: Following IV injection of 10-bhhatn-7-deoxyglucose (FDG) astandard uptake of approximately 60 minutes, [...] subcarinal, left high paratracheal (axial images 53 ), and left high anterior mediastinal regions (axial [...] patients who have questions please contactthe health home care manager that requested your imaging first. Electronically signed by: Alfredo Jean-Baptiste MD, [facility]([phone]), at 01/19/2021 10:17 AM Boy Tovar MD [...] gland documented in this encounter Care Teams Freight Manager Relationship Specialty Start Date End Date Nick Martinez MD [address] [place] [id number] PCP - General Internal Medicine 07/01/18 documented as of this encounter
--- OUTSIDE RECORDS SUMMARY | 2023-10-17 04:02 | XMS_ITS | Encounter Summary ---
Author Organization [facility] [place] [address] Care Team Providers Care Public Service Representative Name Role Phone Nick Martinez MD Primary Care Provider Reason for Visit * Diagnostic Test (Routine) - Closed Specialty Diagnoses / Procedures Referred By Mariana workman Referred To Contact Radiology Diagnoses Primary malignant 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 Procedures NM PET CT Skull Base to Mid-thigh Boy Tovar MD [facility] [place] [address] [place] [address] Referral ID Status Reason Start Date Expiration Date V isits Requested Visits Authorized [id number] Closed Specialty Service Requested 12/23/2020 06/23/2022 1 1 Encounter Details Date Type Department Care Team (Late st Contact Info) Description 01/07/2021 6:10 AM EDT - 01/07/2021 11:59 PM EDT Hospital Encounter [place] [phone] Boy Tovar MD [facility] [place] [address] Discharge Disposition: Home Social History [...] in a long term (including now)? No 12/22/2020 Sex and Gender [...] AM EDT Office Visit Hematology/Oncology at [address] [phone] Boy Tovar MD [facility] [place] [address] 10/17/2023 9:00 AM EDT Infusion Hematology Oncology at [address] [phone] documented as of this encounter Procedures Procedure Name Priority Date/Time Associated Diagnosis Comments NM PET CT SKULL BASE TO MID-THIGH ([facility]) Routine 01/07/2021 8:07 AM EDT Primary malignant 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 POCT GLUCOSE Routine 01/07/2021 6:48 AM EDT documented in this encounter Results * POCT Glucose (01/07/2021 6:48 AM EDT) Glucose, POC 107 65 - 199 mg/dL [facility] Comment: Supplemental ranges: <140 mg/dL before meals <180 mg/dL all other times of the day Blood 01/07/2021 6:48 AM EDT 01/07/2021 6:48 AM EDT Boy Tovar MD POINT OF CARE TEST O RDERABLES Performing Organization Address City/State/[facility] Co de Phone Number [facility] [place] [address] documented in this encounter Visit Diagnoses Not on filedocumented in this encounter Care Teams Public Service Representative Relationship Specialty Start Date End Date Nick Martinez MD [address] [place] [address] PCP - General Internal Medicine 07/01/18 documented as of this encounter
--- OUTSIDE RECORDS SUMMARY | 2023-10-17 04:02 | XMS_ITS | Encounter Summary ---
Author Organization [facility] [place] [address] Care Team Providers Care Drop Hammer Operator Helper Name Role Phone Nick Martinez MD Primary Care Provider [phone] Encounter Details Date Type Department Care Team (Late st Contact Info) Description 02/17/2021 Orders [place] [phone] Parker Ross MD [facility] [place] [address] Social History Tobacco Use Types Packs/Day Years [...] AM EDT Office Visit Hematology/Oncology at [address] [phone] Boy Tovar MD [facility] [place] [address] 10/17/2023 9:00 AM EDT Infusion Hematology Oncology at [address] [phone] documented as of this encounter Visit Diagnoses Not on filedocumented in this encounter Care Teams Drop Hammer Operator Helper Relationship Specialty Start Date End Date Nick Martinez MD [address] [place] [address] PCP - General Internal Medicine 07/01/18 documented as of this encounter
--- OUTSIDE RECORDS SUMMARY | 2023-10-17 04:02 | XMS_ITS | Encounter Summary ---
Author Organization [facility] Cici bennieterence [place] [id number] Care Team Providers Care Manager Of Community Relations Name Role Phone Nick Martinez MD Primary Care Provider [phone] Reason for Visit * Reason Comments Chemotherapy Cycle 1, Day 15 - Pa clitaxel/Carboplatin * Treatment/Therapy Plan Authorization (Routine) - Specialty Diagnoses / Procedures Referred By Contac t Referred To Contact Diagnoses Primary malignant neoplasm of right upper lobe of lung Procedures TC PALONOSETRON HCL, 25MCG, INJECTION (ALOXI) TC PACLITAXEL, 1MG, INJ TC CARBOPLATIN, 50MG, INJECTION (PARAPLATIN) J2469 palonosetron (Aloxi) 0.25 MG J9267 PACLitaxeL (Taxol) 118 MG J9045 CARBOplatin (Paraplatin) 260 MG Boy Tovar MD [facility] [place] [address] [facility] Hem Onc Office [address] [place] [phone] Referral ID Status Reason Start Date Expiration Date V isits Requested Visits Authorized [id number] 03/02/2021 04/15/2021 20 20 Encounter Details Date Type Department Care Team (Late st Contact Info) Description 03/16/2021 9:00 AM EST Infusion Hematology Oncology at [address] [phone] Primary malignant neoplasm of right upper lobe [...] Progress Notes * Ginette Freeman, RN - 03/16/2021 9:00 AM EST INFUSION THERAPY ADMINISTRATION NOTES DIAGNOSIS: NSCLC CYCLE #: Cycle 1, Day 1 - Paclitaxel/Carboplatin concurrent with radiation. REASON FOR VISIT: To receive chemotherapy. SUBJECTIVE: Raffy offers no complaints. He is starting to experience some dysphagia. OBJECTIVE: Seen by provider. Ready to treat. LAB DATA: 03/16/21 - WBC - 3.52, H/H - 13.3/39.8, Plt Ct - 195, ANC - 2.76, Lytes wnl, BUN/CR - 16/1.2, MG++ - 1.8 IV ACCESS: PIV Pre administration: Chemotherapy orders independently verified for drug name, route, and dosage per patient's height, weight and BSA by Ginette Freeman, CHERYL and Staff Pharmacist(s). REACTIONS (DESCRIPTION, TIME, INTERVENTION AND EFFECTIVENESS) none ASSESSMENT: Raffy was awake, alert and tolerated treatment well. PIV discontinued prior to dismissal. PLAN: Return to clinic next week for day 22. documented in this encounter Plan of Treatment Upcoming Encounters Date Type Department Care Team (Late st Contact Info) Description 10/17/2023 8:30 AM EDT Office Visit Hematology/Oncology at [address] [phone] Boy Tovar MD [facility] [place] [address] 10/17/2023 9:00 AM EDT Infusion Hematology Oncology at [address] [phone] documented as of this encounter Visit Diagnoses [...] = 2), Intravenous, ONCE, 1 dose, On 03/16/21 at 1100, Administer over 30 Minutes, Warning Vesicant/Irritant Medication New Bag 03/16/2021 11:43 AM EST 252 mg 550.4 mL/hr dexamethasone (Decadron) injection 10 mg 10 mg, Intravenous, ONCE, 1 dose, On Tue03/16/21 at 0930, Administer 30 minutes prior to PACLitaxel Given 03/16/2021 9:34 AM EST 10 mg diphenhydrAMINE (Benadryl) capsule 50 mg 50 mg, Oral, ONCE, 1 dose, On Tue03/16/21 at 0930, Administer 30 minutes prior to PACLitaxel, Routine Given 03/16/2021 9:32 AM EST 50 mg famotidine (Pepcid) (10 mg/mL) injection 20 mg 20 mg, Intravenous, ONCE, 1 dose, On Tue03/16/21 at 0930, Administer 30 minutes prior to PACLitaxel Given 03/16/2021 9:34 AM EST 20 mg PACLitaxeL (Taxol) 118 mg in sodium chloride 0.9% Non-PVC 269.6667 mL infusion 118 mg (rounded from 117.5 mg = 50 mg/m2/dose ? 2.35 m2 Treatment Plan BSA from Recorded weight), Intravenous, ONCE, 1 dose, On Tue03/16/21 at 1000, Administer over 60 Minutes, Warning Vesicant/Irritant Medication New Bag 03/16/2021 10:24 AM EST 118 mg 269.7 mL/hr palonosetron (Aloxi) (0.05 mg/mL) injection 0.25 mg 0.25 mg, Intravenous, ONCE, 1 dose, On Tue03/16/21 at 0930, Administer over 30 seconds., Routine Given 03/16/2021 9:33 AM EST 0.25 mg documented in this encounter Care Teams Manager Of Community Relations Relationship Specialty Start Date End Date Nick Martinez MD [address] [place] [address] PCP - General Internal Medicine 07/01/18 documented as of this encounter
--- OUTSIDE RECORDS SUMMARY | 2023-10-17 04:02 | XMS_ITS | Encounter Summary ---
Author Organization [facility] [place] [address] Care Team Providers Care International Project Manager Name Role Phone Nick Martinez MD Primary Care Provider [phone] Reason for Visit * Reason Onset Date Comments Other 02/11/2021 brief assessment Encounter Details Date Type Department Care Team (Late st Contact Info) Description 02/11/2021 Telephone Radiation Oncology at [address] [phone] Azalea Watkins, DIRECTOR CLINICAL RESEARCH OFFICE OF CARE MANAGEMENT Other (brief assessment) Social History Tobacco Use Types Packs/Day Years [...] Miscellaneous Notes * Telephone Encounter - Azalea Watkins, HARSH - 02/11/2021 11:15 AM EST TC follow up with pt prior to his sim this afternoon. Follow up to call with his earlier this week. Reason for Referral: Brief assessment of social and emotional needs. Met with pt to introduce myself and role of social media analyst to assess/address barriers to getting to and through treatments; addresssupport needs and connect with community services and resources as needed. Family/Social Supports: Pt identified his as his primary support. Living Situation/Daily Activities/Transportation: Pt manages his daily chores and activities. He does not expect any issues with transportation. 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 He does not have any benefits through his work. If he does not work he does not get paid. He needs a letter for his employer from his providers indicating how long he will be out of work once treatments start. His employer will hold his job. Pt'stephanife works at the local hospital. Discussed his concerns about the impact the loss of his income will have on the family. His primaryconcern is heating fuel. Discussed applying to the [facility] for assistance with this and he expects his next shipment/bill in 2 weeks. Also explained the [employer] is another resources. Advance Directives: Did not discuss Utilization of Community Resources: None at this time. Adjustment to Illness/Mental Health Concerns: Pt is expecting concurrent chemo and RT treatments. He is worried about finances. Discussed some resources that will be helpful. Offered support. Identified Needs: financial assistance with living expenses - heating fuel is primary concern Referrals: [facility] when pt brings in his heating fuel bill. Social Work Interventions: Brief assessment Supportive Counseling Financial resources Community Resource Plan: Informed pt of DIRECTOR CLINICAL RESEARCH availability and contact information. Will follow to assess/address psychosocial needs. ADD: 3:00 pm Met with while pt waiting for his sim. They are interested in applying for financial assistance from the [facility] for assistance with their heating fuel. They may also want to apply to the [facility] for help with funds toward a mortgage payment. Will assist them with this. reports she has little time to take off from work as she is relatively new to her job. She indicated pt's 2 sisters will be up and will be able to assist with rides and other things. Their daughter will be home from school also. They are in the process of adopting their 3.5 yr old foster daughter. is coping as best she can with all that is going on. Offered support. Will follow and assist with support and resources. HARSH Bello, MILLINERY COPYIST, OSW-C Deputy County Clerk [facility] documented in this encounter Plan of Treatment Upcoming Encounters Date Type Department Care Team (Late st Contact Info) Description 10/17/2023 8:30 AM EDT Office Visit Hematology/Oncology at [address] [phone] Boy Tovar MD [facility] [place] [address] 10/17/2023 9:00 AM EDT Infusion Hematology Oncology at [address] [phone] documented as of this encounter Visit Diagnoses Not on filedocumented in this encounter Care Teams International Project Manager Relationship Specialty Start Date End Date Nick Martinez MD [address] [place] [address] PCP - General Internal Medicine 07/01/18 documented as of this encounter
--- OUTSIDE RECORDS SUMMARY | 2023-10-17 04:02 | XMS_ITS | Encounter Summary ---
Author Organization [facility] [place] [address] Care Team Providers Care Corporate Physical Security Supervisor Name Role Phone Nick Martinez MD Primary Care Provider [phone] Reason for Referral * Consultation (Routine) - Closed Specialty Diagnoses / Procedures Referred By Mariana workman Referred To Contact Radiation Oncology Diagnoses Primary malignant neoplasm of right upper lobe of lung Procedures Simulation for Radiation Therapy Planning Parker Ross MD [facility] [place] [address] [facility] Rad Onc Office [address] [place] [phone] Referral ID Status Reason Start Date Expiration Date V isits Requested Visits Authorized [id number] Closed Consult, Test & Treat 02/06/2021 02/06/2022 31 31 Reason for Visit * Consultation (Routine) - Closed Specialty Diagnoses / Procedures Referred By Mariana workman Referred To Contact Radiation Oncology Diagnoses Primary malignant neoplasm of right upper lobe of lung Boy Tovar MD [facility] DR HEMATOLOGY [place] [address] [facility] Rad Onc Treatment [address] [place] [phone] Referral ID Status Reason Start Date Expiration Date V isits Requested Visits Authorized [id number] Closed Consult, Test & Treat 01/08/2021 01/08/2022 1 1 Encounter Details Date Type Department Care Team (Late st Contact Info) Description 02/04/2021 11:00 AM EST Office Visit Radiation Oncology at [address] [phone] Parker Ross MD [facility] [place] [address] Primary malignant neoplasm of right upper lobe [...] Reading Time Taken Comments Blood Pressure 116/78 02/04/2021 11:46 AM EST Pulse 74 02/04/2021 11:46 AM EST Temperature - - Respiratory Rate 20 02/04/2021 11:46 AM EST Oxygen Saturation 97% 02/04/2021 11:46 AM EST Inhaled Oxygen Concentration - - Weight 112 kg (247 lb) 02/04/2021 11:46 AM EST w ith shoes Height - - Body Mass Index 35.48 12/22/2020 3:59 PM EDT documented in this encounter Progress Notes * Alyssa Brar, RN - 02/04/2021 11:00 AM EST RADIATION ONCOLOGY NURSING INITIAL NURSING ASSESSMENT IDENTIFICATION: Raffy Latif is a 60 y.o. year-old male with right upper lobe lung cancer PRESENTING SYMPTOMS/CHIEF COMPLAINT: Initially presented in when RUL nodule found incidentally on imaging but not fully evaluated at that time. REVIEW OF SYSTEMS: Review of Systems Constitutional: Negative for unexpected weight change. HENT: Negative for trouble swallowing. Respiratory: Positive for shortness of breath (LANDEROS such as by walking to top of shairs. easy recovery). Negative for cough (occ. clear/white sputumn). Cardiovascular: Negative for chest pain. Gastrointestinal: Negative for constipation, diarrhea and nausea. Neurological: Negative for dizziness, headaches and light-headedness. IN THE PAST 12 MONTHS HAVE YOU: Fallen more than one time? No Injured yourself as result of the fall? N/A Experienced difficulty with walking/problems with balance? No Do you use any assistive devices? No Any history of collagen vascular diseases: no Any Implanted Devices/Hardware: Yes If yes please put alert in ARIA patient summary Prior Radiotherapy: No Prior Chemotherapy: No Prior Hormone Therapy: No LEARNING ASSESSMENT REVIEWED: yes ADVANCED DIRECTIVE: not addressed at this time PAIN ASSESSMENT: 0 out of 10 *eD-H Adult PCS Flow Sheet if 4 or above SOCIAL ASSESSMENT: See EDH social assessment information entered. Support Systems: , Anali. Barriers to treatment: none identified. Patient is very claustrophobic, does not like needles. 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 Other: PLAN: Per Dr. Ross Answers for HPI/ROS submitted by the patient on 02/04/2021 Distress: 5 * Parker Ross MD - 02/04/2021 11:00 AM EST Images from the original note were not included. Radiation Oncology New Patient Visit PATIENT NAME: Raffy Latif DATE OF : 1960 HISTORY OF PRESENT ILLNESS Raffy Latif is a 60 y.o. male who is seen in consultation in the section of Radiation Oncology at [facility] regarding his lung cancer ONCOLOGIC HISTORY Overview: cT1cN3 (Stage III-C) non-small cell lung cancer (adenocarcinoma) Details: Presentation 60 y.o. male patient with a past medical history of cigarette smoking (quit 20 years prior, ~ 40 PY), with minimal medical care, who was noted to have a right upper lobe nodule found incidentally 2018. It is not clear why, but no further imaging / evaluation occurred at that time. He did have follow-up imaging in November in 2020 that revealed increased size of the lesion, as well as mediastinaladenopathy. Further evaluation as noted below. He has noted no new symptoms. Staging & Therapy Lung, right, core biopsy 12/01/20: Invasive adenocarcinoma, acinar predominant CT HN w/ contrast 12/15/20 (comparison CTA 05/26/18): interval increase in size of RML mass, no 2.3 cm in maximal dimension. New 6 mm nodule left upper lobe. Bronchoscopy with EBUS guided biopsy 12/31/20: -Findings: --A complete airway examination was performed from the distal trachea to the subsegmental level in each lobe of both lungs. Pertinent findings include normal bronchial anatomy, no endobronchial lesions and no secretions. --1) Station 4L with 4 passes obtained with JERILYN absent. 2) Station 7 with 5 passes obtained with JERILYN absent. 3) Station 4R with 4 passes obtained with JERILYN absent. 4) Station 11Rs(superior) with 4 passes obtained with JERILYN absent. Station 11L was <5 mm, station 11Ri(inferior) was not identified, station 12R was not identified. -Pathology: --Lymph node: 4L (EBUS-guided FNA) - A few clusters of highly atypical epithelial cells, compatiblewith a non-small cell carcinoma, present. --Lymph node: station 7 (EBUS-guided FNA) - A rare cluster of highly atypical epithelial cells, compatible with a non-small cell carcinoma, present. --Lymph node, 4R (EBUS-guided FNA): Lymph node: 11R (EBUS-guided FNA) - Compatible with metastatic adenocarcinoma of lung origin. Extremely scant ??cellularity specimen. Rare minute clusters of atypical epithelial cells, highly suspicious for malignancy/ carcinoma. Tumor Proportion Score (TPS): % Expression: 40-60% -- PET-CT 01/19/21: - FDG avid 2.4 cm spiculated pulmonary nodule in the superior portion of the right middle lobe abutting the minor fissure increased in size from 11/06/2020, when the nodule measured 2.0 cm. - Interval development of focal and confluent consolidative, ground glass, and tree-in-bud opacities scattered throughout the right middle, right upper and left upper lobes, consistent with known recent pneumonia. - Multiple FDG avid lymph nodes in the right hilar, bilateral lower paratracheal paratracheal, subcarinal, left high paratracheal and left high anterior mediastinal regions. Above mentioned mediastinal nodes are stable to slightly increased in size compared to CT of 11/06/2020 - Unchanged size of the apical left upper lobe pulmonary nodule measuring 0.7 cm without significant metabolic activity, favored to represent a benign pulmonary nodule and was present with similar size but with groundglass appearance on remote CT of 05/26/2018. MRI Brain +/- contrast 01/19/21: JEFFREY PFTs 11/11/20: DLCO normal Other Pertinent Issues: None Currently, he has the following symptoms: Symptom Description Ongoing Intervention Dyspnea Denies Cough Denies Dysphagia Denies Weight loss / Nutrition Denies Nutritional Intake Eating Normal Diet Voice Changes Denies Social Issues Travels 20 minutes to [employer] Tobacco Not currently smoking. Quit smoking ~ 20 years ago. Started smoking at 13, ~ 1.5 ppd. Stillchewing a can of tobacco daily. Total Pack Years ~ 40 PY Other No Issues ECOG PS: 0 Grade ECOG PERFORMANCE STATUS 0 Fully active, able to carry on all pre-disease performance without restriction 1 Restricted in physically strenuous activity but ambulatory and able to carry out work of a light or sedentary nature 2 Ambulatory and capable of all selfcare but unable to carry out any work activities; up and about > 50% of waking hours 3 Capable of only limited selfcare; confined to bed or chair more than 50% of waking hours 4 Completely disabled; cannot carry on any selfcare; totally confined to bed or chair EXAM Vitals: 02/04/21 1146 BP: 116/78 Patient Position: Sitting Pulse: 74 Resp: 20 TempSrc: Temporal SpO2: 97% Weight: 112 kg (247 lb) Physical Exam Constitutional: Appearance: He is well-developed. Eyes: Pupils: Pupils are equal, round, and reactive to light. Neck: Comments: Palpation reveals no adenopathy in cervical, SCLV, ICLV antwon basins. Pulmonary: Effort: Pulmonary effort is normal. No respiratory distress. Breath sounds: Normal breath sounds. No wheezing or rales. Chest: Chest wall: No tenderness. Skin: Findings: No erythema. Neurological: Mental Status: He is alert and oriented to person, place, and time. Cranial Nerves: No cranial nerve deficit. Psychiatric: Behavior: Behavior normal. HISTORY Allergies as of 02/04/2021 - Review Complete 02/04/2021 Allergen Reaction Noted ??? Penicillins Nausea Only 11/28/2020 No past medical history on file. Past Surgical History: Procedure Laterality Date ??? CT GUIDED BIOPSY LUNG 12/01/2020 CT Guided Biopsy Lung 12/01/2020 Jarad Parada, DO [facility] RAD CAT SCAN ? ? [facility] EBUS GUIDED SAMPL 3/> NODE STATION/STRUX N/A 12/31/2020 BRONCH, W ENDOBRONCHIAL ULTRASOUND (EBUS) GUIDED SAMPLING, 3+ NODES (WRVU 5.21) performed by Roman Teran MD at [facility] MAIN OR Social History Socioeconomic History ??? Marital status: Spouse name: Not on file ??? Number of children: Not on file ??? Years of education: Not on file ??? Highest education level: Not on file Occupational History ??? 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 Smoking status: Former Smoker ??? Smokeless tobacco: Current User Types: Chew ??? Tobacco comment: 1 can per day. Plans to quit today 02/04/21 Vaping Use ??? Vaping Use: Never used Substance and Sexual Activity ??? Alcohol use: Yes Comment: on occassion only ??? Drug use: Never ??? Sexual activity: Not on file Other Topics Concern ??? Not on file Social History Narrative ??? Not on file Social Determinants of Health Financial Resource Strain: Low Risk ??? Difficulty of Paying Living Expenses: Not hard at all Food Insecurity: No Food Insecurity ??? Worried About Running Out of Food in the Last Year: Never true ??? Ran Out of Food in the Last Year: Never true Transportation Needs: No Transportation Needs ??? Lack of Transportation (Medical): No ??? Lack of Transportation (Non-Medical): No Physical Activity: Not on file Housing Stability: Low Risk ??? Unable to Pay for Housing in the Last Year: No ??? Number of Places Lived in the Last Year: 1 ??? Unstable Housing in the Last Year: No No family history on file. ROS: I reviewed and agree with the nursing review of systems accompanying this encounter. The remainder of the comprehensive review of systems was negative with the exception of the pertinent positives and negatives noted above. MEDICATIONS Current Outpatient Medications on File Prior to Visit Medication Sig Dispense Refill ??? acetaminophen (Tylenol) 500 mg Tablet Take 1,000 mg by mouth every 6 hours as needed for Pain. ??? LORazepam (Ativan) 0.5 mg Tablet Take 1 tablet by mouth as needed for Anxiety. Take prior to MRI Brain 2 tablet 0 No current facility-administered medications on file prior to visit. IMAGING I have personally reviewed the imaging reports and images referenced in the oncologic hx and agree with the assessment as stated. Further pertinent imaging data below LABORATORY VALUES CONTRAINDICATIONS TO RADIOTHERAPY NO YES: Date, site, dose (women only) X Prior Radiotherapy X Collagen-Vascular dz X ASSESSMENT /PLAN HN CANCER Staging CT Chest PET-CT Pathologic Evaluation: Primary, Mediastinum staged PFTs MRI Brain Further Staging None Required Therapy Discussion Raffy Latif has been referred to discuss radiotherapy in his care. He has a very advanced malignancy, and we discussed the low likelihood of success with curative treatment, and discussed both definitive and palliative options in detail. He is not a surgical candidate. These recommendations are in line with NCCN recommendations. We discussed the rationale and logistics (including simulation, planning, and treatment) of definitive radiotherapy as well as palliative options. We discussed the risks of therapy, including but notlimited to short term sequelae (fatigue, esophagitis, skin erythema, cough) and machine bender sequelae (radiation pneumonitis, the potential for increased dyspnea resulting in oxygen dependence, esophageal stricture, and the possibility of significant damage to soft tissue, bone or skin requiring surgical or medical intervention). Mr. Latif expressed an understanding of these risks. The patient had a number of questions regarding optimal therapy and potential side effects. These questions were answered to his satisfaction Concurrent chemotherapy recommendations: discussed with medical oncology Adjuvant chemotherapy recommendations: discussed with medical oncology Therapy Decision He will consider his options Supportive Care Referral to Pepper Picker OTHER ISSUES Tobacco use: not actively smoking documented in this encounter Plan of Treatment Upcoming Encounters Date Type Department Care Team (Late st Contact Info) Description 10/17/2023 8:30 AM EDT Office Visit Hematology/Oncology at [address] [phone] Boy Tovar MD [facility] DR HEMATOLOGY [place] [address] 10/17/2023 9:00 AM EDT Infusion Hematology Oncology at [address] [phone] Scheduled Orders Name Type Priority Associated Diagnoses [...] gland documented in this encounter Care Teams Corporate Physical Security Supervisor Relationship Specialty Start Date End Date Nick Martinez MD [address] [place] [address] PCP - General Internal Medicine 07/01/18 documented as of this encounter
--- OUTSIDE RECORDS SUMMARY | 2023-10-17 04:02 | XMS_ITS | Encounter Summary ---
Author Organization [facility] [place] [address] Care Team Providers Care Vegetable Farmer Name Role Phone Nick Martinez MD Primary Care Provider [phone] Encounter Details Date Type Department Care Team (Late st Contact Info) Description 03/13/2021 Notes Only Radiation Oncology at [address] [phone] Katelyn Em, RN Social History Tobacco Use Types Packs/Day [...] in a group home (including now)? No 02/04/2021 Sex and Gender Information Value Date Recorded Sex Assigned at Not on file Gender Identity Not on file Sexual Orientation Not on file documented as of this encounter Progress Notes * Katelyn Em, RN - 03/13/2021 4:36 PM EST Radiation Oncology Nursing on Treatment Note Patient has received 12 FXs, 2400 cGy To the chest For treatment of lung ca. Side effects that patient is experiencing: Sore throat Assessment: He points to throat and c/o sore throat that started 2 days ago. But is worse today with eating. Heis questioning if this is due to radiation treatments because this pain is in his throat, not lowerin chest. So far he has eaten a meat ball mud grinder that went down OK, but it just hurt some. He said that his had a sore throat but he wasn't sure if he had that visus. He said he has some snoring that causes a sore throat sometimes and he explained this to Dr Rojas, however it seems to be worse with eatting . Temp is afebrile : 98.4F Intervention: Dr Ross informed via [employer]. He gave verbal order for BMX which was sent to [facility] ( his works at [facility] and will pick it up tomorrow) I called there and confirmed that they have this BLM First mouth wash. Pt was instructed of use and that he is to swallow this 5- 10 mls, prior to meals but no more than 8 dose a day Plan: Weekly on-treatment visit every Tuesday with Dr Ross and daily visits prn with nursing documented in this encounter Plan of Treatment Upcoming Encounters Date Type Department Care Team (Late st Contact Info) Description 10/17/2023 8:30 AM EDT Office Visit Hematology/Oncology at [address] [phone] Boy Tovar MD [facility] DR [place] [address] 10/17/2023 9:00 AM EDT Infusion Hematology Oncology at [address] [phone] documented as of this encounter Visit Diagnoses Not on filedocumented in this encounter Care Teams Vegetable Farmer Relationship Specialty Start Date End Date Nick Martinez MD [address] [place] [address] PCP - General Internal Medicine 07/01/18 documented as of this encounter
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
--- OUTSIDE RECORDS SUMMARY | 2023-10-17 04:02 | XMS_ITS | Encounter Summary ---
Author Organization [facility] Address [facility] [place] [address] Care Team Providers Care Quad Stayer Name Role Phone Nick Martinez MD Primary Care Provider [phone] Encounter Details Date Type Department Care Team (Late st Contact Info) Description 01/01/2021 Orders [place] [address] Roman Teran MD [facility] [place] [address] Social History Tobacco Use Types Packs/Day Years [...] AM EDT Office Visit Hematology/Oncology at [address] [phone] Boy Tovar MD [facility] DR [place] [address] 10/17/2023 9:00 AM EDT Infusion Hematology Oncology at [address] [phone] documented as of this encounter Visit Diagnoses Not on filedocumented in this encounter Care Teams Quad Stayer Relationship Specialty Start Date End Date Nick Martinez MD [address] [place] [address] PCP - General Internal Medicine 07/01/18 documented as of this encounter
--- OUTSIDE RECORDS SUMMARY | 2023-10-17 04:02 | XMS_ITS | Encounter Summary ---
Author Organization [facility] [place] [address] Care Team Providers Care Dimensional Inspector Name Role Phone Nick Martinez MD Primary Care Provider [phone] Encounter Details Date Type Department Care Team (Late st Contact Info) Description 02/18/2021 Telephone Radiation Oncology at [address] [phone] Alyssa Brar, RN Social History [...] Telephone Encounter - Alyssa Brar RN - 02/18/2021 11:27 AM EST Telephone call to patient to let him kow that prescription [facility] Nicotine patches [facility]. * Telephone Encounter - Alyssa Brar RN - 02/18/2021 11:24 AM EST ----- Message from Parker Ross MD sent at 02/17/2021 9:57 PM EST ----- Regarding: RE: Wants a Nicotine patch I called it in the [facility] pharmacy in [facility], please let him know. ----- Message ----- From: Alyssa Brar RN Sent: 02/16/2021 6:03 PM EST To: Parker Ross MD Subject: FW: Wants a Nicotine patch Is this something that you are willing to order for him? Alyssa ----- Message ----- From: Lou Badlilo Sent: 02/16/2021 8:36 AM EST To: St Rad Onc Nurse Subject: Wants a Nicotine patch Raffy wants to get a Nicotine patch he wants to quit chewing. Thank Inge! documented in this encounter Plan of Treatment Upcoming Encounters Date Type Department Care Team (Late st Contact Info) Description 10/17/2023 8:30 AM EDT Office Visit Hematology/Oncology at [address] [phone] Boy Tovar MD [facility] DR HEMATOLOGY [place] [address] 10/17/2023 9:00 AM EDT Infusion Hematology Oncology at [address] [phone] documented as of this encounter Visit Diagnoses Not on filedocumented in this encounter Care Teams Dimensional Inspector Relationship Specialty Start Date End Date Nick Martinez MD [address] [place] [address] PCP - General Internal Medicine 07/01/18 documented as of this encounter
--- OUTSIDE RECORDS SUMMARY | 2023-10-17 04:02 | XMS_ITS | Encounter Summary ---
[place] [address] Care Team Providers Care Hand Edge Bander Name Role Phone Nick Martinez MD Primary Care Provider Reason for Referral * Diagnostic Test (Routine) - Closed Specialty Diagnoses / Procedures Referred By Contac t Referred To Contact Radiology Diagnoses Primary malignant neoplasm of right upper lobe of lung Procedures NM PET CT Skull Base to Mid-thigh Boy Tovar MD [facility] [address] [place] [address] [place] [address] Referral ID Status Reason Start Date Expiration Date V isits Requested Visits Authorized [id number] Closed Specialty Service Requested 12/23/2020 06/23/2022 1 1 Reason for Visit * Diagnostic Test (Routine) - Closed Specialty Diagnoses / Procedures Referred By Contac t Referred To Contact Radiology Diagnoses Primary malignant neoplasm of right upper lobe of lung Procedures NM PET CT Skull Base to Mid-thigh Boy Tovar MD [facility] [address] [place] [address] [place] [address] Referral ID Status Reason Start Date Expiration Date V isits Requested Visits Authorized [id number] Closed Specialty Service Requested 12/23/2020 06/23/2022 1 1 Encounter Details Date Type Department Care Team (Late st Contact Info) Description 01/07/2021 6:08 AM EDT - 01/07/2021 6:09 AM EDT Hospital Encounter [place] [address] Boy Tvoar MD [facility] [place] [address] Primary malignant neoplasm of right [...] AM EDT Office Visit Hematology/Oncology at [address] [phone] Boy Tovar MD [facility] DR HEMATOLOGY [place] [address] 10/17/2023 9:00 AM EDT Infusion Hematology Oncology at [address] [phone] documented as of this encounter Procedures Procedure Name Priority Date/Time Associated Diagnosis Comments NM PET CT SKULL BASE TO MID-THIGH ([facility]) Routine 01/07/2021 8:07 AM EDT Primary malignant neoplasm of right upper lobe of lung documented in this encounter Results * NM PET CT Skull Base to Mid-thigh (01/07/2021 8:07 AM EDT) Anatomical Region Laterality Modality Positron Emissio n Tomography (PET) Impressions 01/07/2021 10:13 AM EDT FINDINGS/IMPRESSION: Injection only. Due to patient claustrophobia patient could not be scanned. I have personally reviewed the image(s) and the resident's interpretation and agree with the findings, Alfredo Jean-Baptiste MD at 01/07/2021 10:13 AM Thank you for letting us participate in the care of this patient. ??If you are a health care provider and have any questions regarding this report, please contact the number below. ??For patients who have questions please contact the health care management coordinator that requested your imaging first. ? Electronically signed by: Alfredo Jean-Baptiste MD, [facility] ([phone]), at 01/07/2021 10:13 AM Narrative 01/07/2021 10:13 AM EDT EXAMINATION: NM INJECTION ONLY CLINICAL HISTORY: Non-small cell lung cancer, staging Newly diagnosed RUL adenocarcinoma- initial staging PET scan TECHNIQUE: Patient received IV injection of 17 mCi FDG. Due to patient claustrophobia, scan could not be performed. Procedure Note Alfredo Jean-Baptiste MD - 01/07/2021 EXAMINATION: NM INJECTION ONLY CLINICAL HISTORY: Non-small cell lung cancer, staging Newly diagnosed RUL adenocarcinoma- initial staging PET scan TECHNIQUE: Patient received IV injection of 17 mCi FDG. Due to patient claustrophobia, scan could not be performed. IMPRESSION FINDINGS/IMPRESSION: Injection only. Due to patient claustrophobia patient could not bescanned. I have personally reviewed the image(s) and the resident's interpretationand agree with the findings, Alfredo Jean-Baptiste MD at 01/07/2021 10:13 AM Thank you for letting us participate in the care of this patient. If youare a health care provider and have any questions regarding this report,please contact the number below. For patients who have questions please contactthe health care management coordinator that requested your imaging first. Electronically signed by: Alfredo Jean-Baptiste MD, [facility]([phone]), at 01/07/2021 10:13 AM Boy Tovar MD IMG PET ORDERABLES [...] Intravenous, ONCE PRN, 1 dose, Starting on Tue01/07/21 at 0713, Until Tue01/07/21 at 0654, Per Protocol, Radiology Contrast, Routine Given 01/07/2021 6:54 AM EDT 17 mCi Right Arm documented in this encounter Care Teams Hand Edge Bander Relationship Specialty Start Date End Date Nick Martinez MD [address] [place] [address] PCP - General Internal Medicine 07/01/18 documented as of this encounter
--- OUTSIDE RECORDS SUMMARY | 2023-10-17 04:02 | XMS_ITS | Encounter Summary ---
Author Organization [facility] [place] [address] Care Team Providers Care City Engineer Name Role Phone Nick Martinez MD Primary Care Provider [phone] Reason for Visit * Reason Comments IV Access Encounter Details Date Type Department Care Team (Late st Contact Info) Description 02/11/2021 3:00 PM EST Infusion Hematology Oncology at [address] [phone] Primary malignant neoplasm of right [...] as of this encounter Progress Notes * Laly Larose RN - 02/11/2021 3:00 PM EST Patient arrived to infusion area for PIV start. #20g PIV placed in Right Arm. Excellent blood return noted, and PIV flushed easily. Patient tolerated procedure well. Report given to Radiation Oncology Nurse. documented in this encounter Plan of Treatment Upcoming Encounters Date Type Department Care Team (Late st Contact Info) Description 10/17/2023 8:30 AM EDT Office Visit Hematology/Oncology at [address] [phone] Boy Tovar MD [facility] DR HEMATOLOGY [place] [address] 10/17/2023 9:00 AM EDT Infusion Hematology Oncology at [address] [phone] documented as of this encounter Visit Diagnoses [...] gland documented in this encounter Care Teams City Engineer Relationship Specialty Start Date End Date Nick Martinez MD [address] [place] [address] PCP - General Internal Medicine 07/01/18 documented as of this encounter
--- OUTSIDE RECORDS SUMMARY | 2023-10-17 04:02 | XMS_ITS | Encounter Summary ---
Author Organization [facility] Address [facility] [place] [address] Care Team Providers Care Recycling Coordinator Name Role Phone Nick Martinez MD Primary Care Provider [phone] Encounter Details Date Type Department Care Team (Late st Contact Info) Description 01/20/2021 Telephone Hematology [place] [phone] Boy Tovar MD [facility] DR HEMATOLOGY [place] [address] Social History Tobacco Use Types Packs/Day Years [...] in a senior care (including now)? No 12/22/2020 Sex and Gender Information Value Date Recorded Sex Assigned at Not on file Gender Identity Not on file Sexual Orientation Not on file documented as of this encounter Miscellaneous Notes * Telephone Encounter - Boy Tovar MD - 01/20/2021 10:06 AM EST Images from the original note were not included. Attempted to call Raffy regarding the results [place] [facility] [place] [facility] from yesterday. Left a message on his cell and then was able to reach his and discussed the results. Will send message to radiation oncology as well as [facility]. 01.19.21 MRI [place] 01.19.21 PET scan IMPRESSION 1. Slight interval increase in size of the 2.4 cm FDG avid spiculated pulmonary nodule in the right middle lobe consistent with biopsy-proven invasive adenocarcinoma. 2. 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 3. No sites of metastatic disease in the abdomen, pelvis, or skeleton. documented in this encounter Plan of Treatment Upcoming Encounters Date Type Department Care Team (Late st Contact Info) Description 10/17/2023 8:30 AM EDT Office Visit Hematology/Oncology at [address] [phone] Boy Tovar MD [facility] [address] [place] [address] 10/17/2023 9:00 AM EDT Infusion Hematology Oncology at [address] [phone] documented as of this encounter Visit Diagnoses Not on filedocumented in this encounter Care Teams Recycling Coordinator Relationship Specialty Start Date End Date Nick Martinez MD [address] [place] [address] PCP - General Internal Medicine 07/01/18 documented as of this encounter
--- OUTSIDE RECORDS SUMMARY | 2023-10-17 04:03 | XMS_ITS | Encounter Summary ---
[place] [address] Care Team Providers Care Market Sales Manager Name Role Phone Nick Martinze MD Primary Care Provider [phone] Encounter Details Date Type Department Care Team (Late st Contact Info) Description 12/25/2020 Telephone [place] [address] Marjorie Johnston Social History Tobacco Use Types Packs/Day Years [...] AM EDT Office Visit Hematology/Oncology at [address] [phone] Boy Tovar MD [facility] DR HEMATOLOGY [place] [address] 10/17/2023 9:00 AM EDT Infusion Hematology Oncology at [address] [phone] documented as of this encounter Visit Diagnoses Not on filedocumented in this encounter Care Teams Market Sales Manager Relationship Specialty Start Date End Date Nick Martinez MD [address] [place] [address] PCP - General Internal Medicine 07/01/18 documented as of this encounter
--- OUTSIDE RECORDS SUMMARY | 2023-10-17 04:03 | XMS_ITS | Encounter Summary ---
Author [facility] [place] [address] Care Team Providers Care Ivf Embryologist Name Role Phone Nick Martinez MD Primary Care Provider [phone] Encounter Details Date Type Department Care Team (Late st Contact Info) Description 11/28/2020 Orders [place] [address] Jarad Parada, [facility] [place] [address] Social History Tobacco Use Types Packs/Day Years Used Date Smoking Tobacco: Former Smokeless Tobacco: Current Chew Alcohol Use Standard Drinks/Week Comments Yes 0 (1 standard drink = 0.6 oz pur e alcohol) occassional Sex and Gender Information Value Date Recorded Sex Assigned at Not on file Gender Identity Not on file Sexual Orientation Not on file documented as of this encounter H&P Notes * Jarad Parada DO - 11/28/2020 10:20 AM EDT Images from the original note were not included. INTERVENTIONAL RADIOLOGY FOCUSED H&P and PRE-PROCEDURE NOTE: PCP: Nick Martinez MD Referring Provider: Dr. Shailesh Montano Planned Procedure: Planned procedure: RML Nodule Biopsy Procedure Indication: Right Middle Lobe Mass. Procedure request received through Interventional Radiology eDH order queue. Presenting Diagnosis/ Complaint: Raffy Latif is a 60 y.o. male presenting to IR for right middlelobe mass. Past medical history is significant for renal insufficiency as well as exertional dyspnea / COPD for which CT of the Chest was ordered discovering a RML nodule, which on follow up CT of the Chest of 11/06/20 showed enlargement of the mass. IR is consulted for percutaneous biopsy. Per report, the patient has needle phobia. [place] [facility] [place] Antiplatelets: None. Anticoagulants: None. Recent Laboratories: ??? Platelets: 254 on 10/08/20. ??? INR: None. ??? Creatinine: 1.2 on 10/08/20. ??? Getting Laboratories Before Procedure: No. Allergies: None. Past Medical/Surgical History: As detailed above. Medications: No home medications per PCP note. Allergies: Patient has no allergy information on record. Social History and Habits: Social History Socioeconomic History ??? Marital status: Spouse name: Not on file ??? Number of children: Not on file ??? Years of education: Not on file ??? Highest education level: Not on file Occupational History ??? Not on file Tobacco Use ??? Smoking status: Not on file Substance and Sexual Activity ??? Alcohol use: Not on file ??? Drug use: Not on file ??? Sexual activity: Not on file Other Topics Concern ??? Not on file Social History Narrative ??? Not on file Social Determinants of Health Financial Resource Strain: ??? Difficulty of Paying Living Expenses: Not on file Food Insecurity: ??? Worried About Running Out of Food in the Last Year: Not on file ??? Ran Out of Food in the Last Year: Not on file Transportation Needs: ??? Lack of Transportation (Medical): Not on file ??? Lack of Transportation (Non-Medical): Not on file Physical Activity: ??? Days of Exercise per Week: Not on file ??? Minutes of Exercise per Session: Not on file Significant Family History: No family history on file. Pertinent ROS: as per HPI Labs: Imaging: Physical Exam: Pending (to be performed in angio the day of procedure) ASA: Pending (to be assessed in angio the day of procedure) Mallampati Class: Pending (to be assessed in angio the day of procedure) Assessment: 60 y.o. male with enlarging RML nodule. No antiplatelets or anticoagulants. Nodule appears amenable to percutaneous biopsy. Plan: Planned procedure: RML Nodule Biopsy Labs to be performed day of procedure: No labs Sedation: Moderate (Conscious sedation) Prophylactic antibiotic : None Contrast: No contrast Additional medications for procedure: Lidocaine Planned access site: Right Anteiror Chest Wast Position: Supine Consent: Pending Medications to discontinue (and days held): None Case Urgency:: G- Other (non E or F elective cases) 11/28/2020 documented in this encounter Plan of Treatment Upcoming Encounters Date Type Department Care Team (Late st Contact Info) Description 10/17/2023 8:30 AM EDT Office Visit Hematology/Oncology at [address] [phone] Boy Tovar MD [facility] DR HEMATOLOGY [place] [address] 10/17/2023 9:00 AM EDT Infusion Hematology Oncology at [address] [phone] documented as of this encounter Visit Diagnoses Not on filedocumented in this encounter Care Teams Ivf Embryologist Relationship Specialty Start Date End Date Nick Martinez MD [address] [place] [address] PCP - General Internal Medicine 07/01/18 documented as of this encounter
--- OUTSIDE RECORDS SUMMARY | 2023-10-17 04:03 | XMS_ITS | Encounter Summary ---
Author Organization [facility] [place] [address] Care Team Providers Care Lime Spreader Name Role Phone Nick Martinez MD Primary Care Provider Reason for Visit * Auth/Cert Specialty Diagnoses / Procedures Referred By Mariana workman Referred To Contact Diagnoses Lung cancer/ Bronchoscopy with EBUS/ GA/ Backer Procedures [facility] EBUS GUIDED SAMPL 1/2 NODE STATION/STRUX BRONCH, W ENDOBRONCHIAL ULTRASOUND (EBUS) GUIDED SAMPLING, 1/2 NODES (WRVU 4.71) Referral ID Status Reason Start Date Expiration Date Visits Re quested Visits Authorized [id number] 1 1 Encounter Details Date Type Department Care Team (Late st Contact Info) Description 12/31/2020 3:33 PM EDT Anesthesia Event [place] [phone] Lexie Bender MD [facility] [place] [address] Rafael Sterling MD [facility] [place] [address] Anesthesia Record Procedure Summary Procedure Name Responsible Anesthesiologist Anesthesia Start Time Anesthesia Stop Time BRONCH, W ENDOBRONCHIAL ULTRASOUND (EBUS) GUIDED SAMPLING, 3+ NODES (WRVU 4.96) Lexie Bender MD 12/31/20 1533 12/31/20 1711 Events Date Time Event Comment 12/31/2020 1450 1533 AN Verify 1533 Start 1533 An Start Data 1540 An Induction 1543 An Intubation 1547 Anesthesia Ready 1657 Extubation/LMA Out 1700 an stop data 1711 Stop 1712 Recovery or ICU Handoff Samantha ent care was transferred to the destination unit staff after review of the patient's medical history, current anesthetic/surgical status and plan, according to the Provider Handoff Checklist. Meds Name Total IV Lidocaine 100 mg Propofol 250 mg Rocuronium 70 mg PHENYLephrine 80 mcg Ondansetron 4 mg Dexamethasone 8 mg Dexmedetomidine 20 mcg Propofol INF 1,247.86 mg Albuterol Inhaler 6 puff Sugammadex 200 mg Lactated Ringers 500 mL * Agents Name O2 Air N2O Sevoflurane (et) * Blood No blood administrations on file. Lines, Drains, and Airways Type Details Placement Removal Incision 12/01/20; 1136; Righ t, lower; sternal; non-laparascopic puncture; ACCESS SITE FOR CT GUIDED LUNG BIOPSY 12/01/20 1136 by Vance Hopkins, RN (RETIRED) Peripheral IV Line - Single Lumen 12/31/20; 1444; metacarpal vein (top of hand), left; cnth-rad-mofoed catheter system; Anatomical Landmarks; 20 gauge; Zhane LUNA; intradermal injection, tolerated well, appears comfortable; no longer indicated; 12/31/20; 1807 12/31/20 1444 by Zhane Rivera, RN 12/31/20 1807 by Mahamed Castro, RN ETT Mask Ventilation: Difficult (3); ETT Type: Cuffed, Oral; ETT Size: 8.5 mm; Mac Blade: 4; Attempts: 1; Laryngoscopy Grade: 2; ETT Placement Verified By: Auscultation, Capnometry; Secured at Teeth: 23 cm; Inserted by: CC Fellow; Removal Date: 12/31/20; Removal Time: 165612/31/20 1543 by Dmitry Meade CRNA 12/31/20 165 by Dmitry Meade CRNA documented in this encounter Social History Tobacco Use Types Packs/Day Years [...] slept in a snf (including now)? No 12/22/2020 Sex and Gender Information Value Date Recorded Sex Assigned at Not on file Gender Identity Not on file Sexual Orientation Not on file documented as of this encounter OR Notes * Anesthesia Postprocedure Evaluation - Lexie Bender MD - 12/31/2020 5:20 PM EDT Department of Anesthesiology Post-procedure Note Patient: Raffy Latif Procedure Summary Date: 12/31/20 Room / Location: [facility] OR [facility] MAIN OR Anesthesia Start: 153 Anesthesia Stop: Procedure: BRONCH, W ENDOBRONCHIAL ULTRASOUND (EBUS) GUIDED SAMPLING, 3+ NODES (WRVU 5.21) (N/A ) Diagnosis: Malignant neoplasm of lung, unspecified laterality, unspecified part of lung (Lung cancer/ Bronchoscopy with EBUS/ GA/ Parul) Surgeons: Roman Teran MD Responsible Provider: Lexie Bender MD Anesthesia Type: general ASA Status: 3 All Anesthesia Providers: Anesthesiologist: Lexie Bender MD STRADDLE BUGGY OPERATOR: Dmitry Meade CRNA Vitals Value Taken Time BP 114/65 12/31/20 1715 Temp 36.4 ??C (97.5 ??F) 12/31/20 1705 Pulse Resp 16 12/31/20 1705 SpO2 95 % 12/31/20 1719 Pain Level Vitals shown include unvalidated device data. [facility] Level of Consciousness: Awake and Alert Pain Management: Satisfactory Analgesia PONV: None Cardiovascular Status: At Baseline and Hemodynamically Stable Respiratory Status: At Baseline and Room Air Postoperative Fluid Status: Intravascular EUvolemia Possible Anesthetic Complications: NONE apparent at time of evaluation Final Primary Anesthesia Type: General (The anesthetic type performed was the same as planned.) Comments: Lexie Bender MD * Anesthesia Preprocedure Evaluation - Lexie Bender MD - 12/30/2020 1:47 PM EDT Pre-Anesthesia Evaluation for: Raffy Latif a 60 y.o. male. Procedure(s): BRONCH, W ENDOBRONCHIAL ULTRASOUND (EBUS) GUIDED SAMPLING, 1/2 NODES (WRVU 4.71) There are no problems to display for this patient. History reviewed. No pertinent past medical history. Past Surgical History: Procedure Laterality Date ??? CT GUIDED BIOPSY LUNG 12/01/2020 CT Guided Biopsy Lung 12/01/2020 Jarad Parada, DO [facility] RAD CAT SCAN Social History Tobacco Use ??? Smoking status: Former Smoker ??? Smokeless tobacco: Current User Types: Chew ??? Tobacco comment: 1 can per day Substance Use Topics ??? Alcohol use: Yes Comment: occassional Social History Substance and Sexual Activity Drug Use Never Allergies Allergen Reactions ??? Penicillins Nausea Only Medications: MAR and/or home medications have been reviewed. Physical Exam: Preprocedure Vitals Current as of 12/30/20 1347 No BP, pulse, respiration, SpO2, or temperature recorded. Height: Weight: BMI: IBW: Airway Assessment: Mallampati: III TM distance: >3 FB Neck ROM: full Cardiovascular Assessment: Rhythm: regular Rate: normal Pulmonary Assessment: unlabored breathing Dental Assessment: Comment: Multiple missing teeth in back. Poor dentition throughout. Nothing loose per patient Misc Assessment: IV access: Peripheral line Last Filed Perioperative Cognitive Screening None Anesthesia Plan: ASA 3 general, with a(n) intravenous induction Patient interviewed and examined. Raffy Latif is a 60yo male with a history of tobacco use disorder (currently chewing tobacco only) and recently diagnosed RUL lung cancer presenting for bronch w/EBUS for mediastinal staging. No prior anesthetics/cardiac history on file Allergies: -- Penicillins -- Nausea Only NPO Status: Appropriate (drank julianna danni at 13:30, will wait until after 15:30 to induce) Exercise tolerance > 4 METS (gets winded but can do 2 FOS). Plan for general anesthesia with endotracheal intubation, standard ASA monitors, to SD following procedure. All patient questions answered and anesthesia consent obtained with discussion of indications, benefits, risks, and alternatives. Lexie Bender MD Attending Anesthesiologist Pager [phone] 12/31/20 2:48 PM Region - Intrathoracic Non-Cardiac Informed Consent: Anesthetic plan and risks discussed with patient. Plan discussed with attending and STRADDLE BUGGY OPERATOR. Anesthesia Screening documented in this encounter Plan of Treatment Upcoming Encounters Date Type Department Care Team (Late st Contact Info) Description 10/17/2023 8:30 AM EDT Office Visit Hematology/Oncology at [address] [phone] Boy Tovar MD [facility] HEMATOLOGY [place] [address] 10/17/2023 9:00 AM EDT Infusion Hematology Oncology at [address] [phone] documented as of this encounter Visit Diagnoses Not on filedocumented in this encounter Administered Medications Inactive Administered Medications - up to 3 most recent administrations Medication Order MAR Action Action Date Dose Rate Site albuteroL 90 mcg/actuation inhaler Inhalation, PRN, Starting on Tue12/31/20 at 1642, Until Tue12/31/20 at 1721, Anesthesia Intra-op, Routine Given 12/31/2020 4:42 PM EDT 6 puffs dexamethasone (Decadron) injection Intravenous, PRN, Starting on Tue12/31/20 at 1549, Until Tue12/31/20 at 1721, Anesthesia Intra-op, Routine Given 12/31/2020 3:49 PM EDT 8 mg dexmedetomidine (Precedex) (4 mcg/mL) bolus injection (Anesthsia) Intravenous, PRN, Starting on Tue12/31/20 at 1538, Until Tue12/31/20 at 1721, Anesthesia Intra-op, Routine Given 12/31/2020 3:39 PM EDT 8 mcg Given 12/31/2020 3:38 PM EDT 12 mcg lactated ringers infusion Intravenous, CONTINUOUS PRN, Starting on Tue12/31/20 at 1533, Until Tue12/31/20 at 1721, Anesthesia Intra-op New Bag 12/31/2020 3:33 PM EDT lidocaine (pf) (Xylocaine) (20 mg/mL) 2% injection syringe Intravenous, PRN, Starting on Tue12/31/20 at 1540, Until Tue12/31/20 at 1721, Anesthesia Intra-op, Routine Given 12/31/2020 3:40 PM EDT 100 mg ondansetron (pf) (Zofran) (2 mg/mL) injection Intravenous, PRN, Starting on Tue12/31/20 at 1549, Until Tue12/31/20 at 1721, Anesthesia Intra-op, Routine Given 12/31/2020 3:49 PM EDT 4 mg PHENYLephrine in NS (PF) (HERO-SYNEPHRINE) 0.8 mg/10 mL (80 mcg/mL) multi-dose injection Syrg Intravenous, PRN, Starting on Tue12/31/20 at 1639, Until Tue12/31/20 at 1721, Anesthesia Intra-op, Routine Given 12/31/2020 4:39 PM EDT 80 mcg propofoL (Diprivan) 10 mg/mL bolus injection (Anesthesia) Intravenous, PRN, Starting on Tue12/31/20 at 1540, Until Tue12/31/20 at 1721, Anesthesia Intra-op Given 12/31/2020 3:44 PM EDT 100 mg Given 12/31/2020 3:40 PM EDT 150 mg propofoL (Diprivan) infusion Intravenous, CONTINUOUS PRN, Starting on Tue12/31/20 at 1540, Until Tue12/31/20 at 1721, Anesthesia Intra-op, Routine Rate/Dose Change 12/31/2020 4:38 PM EDT 50 mcg/kg/min 34.11 mL/hr Rate/Dose Change 12/31/2020 4:37 PM EDT 150 mcg/kg/min 102 .33 mL/hr Rate/Dose Change 12/31/2020 4:15 PM EDT 175 mcg/kg/min 119 .385 mL/hr rocuronium (Zemuron) (10 mg/mL) multi-dose injection Intravenous, PRN, Starting on Tue12/31/20 at 1541, Until Tue12/31/20 at 1721, Anesthesia Intra-op, Routine Given 12/31/2020 4:09 PM EDT 20 mg Given 12/31/2020 3:41 PM EDT 50 mg sugammadex (Bridion) 100 mg/mL injection Intravenous, PRN, Starting on Tue12/31/20 at 1642, Until Tue12/31/20 at 1721, Anesthesia Intra-op, Routine Given 12/31/2020 4:42 PM EDT 200 mg documented in this encounter Care Teams Lime Spreader Relationship Specialty Start Date End Date Nick Martinez MD [address] [place] [address] PCP - General Internal Medicine 07/01/18 documented as of this encounter
--- OUTSIDE RECORDS SUMMARY | 2023-10-17 04:03 | XMS_ITS | Encounter Summary ---
Author Organization [facility] [place] [address] Care Team Providers Care Director Digital Name Role Phone Nick Martinez MD Primary Care Provider Reason for Referral * Diagnostic Test (Routine) - Closed Specialty Diagnoses / Procedures Referred By Mariana workman Referred To Contact Radiology Diagnoses Primary malignant neoplasm of right upper lobe of lung Procedures NM PET CT Skull Base to Mid-thigh Boy Tovar MD [facility] [address] HEMATOLOGY [place] [address] [place] [address] Referral ID Status Reason Start Date Expiration Date V isits Requested Visits Authorized [id number] Closed Specialty Service Requested 12/23/2020 06/23/2022 1 1 * Consultation (Urgent) - Closed Specialty Diagnoses / Procedures Referred By Mariana workman Referred To Contact Pulmonology Diagnoses Primary malignant neoplasm of right upper lobe of lung Boy Tovar MD [facility] HEMATOLOGY [place] [address] [facility] [address] [place] [phone] Referral ID Status Reason Start Date Expiration Date V isits Requested Visits Authorized [id number] Closed Consult, Test & Treat 12/23/2020 12/23/2021 1 1 Reason for Visit * Consultation (Routine) - Closed Specialty Diagnoses / Procedures Referred By Contac t Referred To Contact Hematology and Oncology Diagnoses Malignant neoplasm of unspecified part of right bronchus or lung ADENOCARCINOMA RIGHT LUNG Procedures TREATMENT OPTIONS Chong Montano MD [address] [place] [address] [facility] Onc Office [address] [place] [phone] Referral ID Status Reason Start Date Expiration Date Visits Re quested Visits Authorized [id number] Closed 12/15/2020 12/15/2021 1 1 Encounter Details Date Type Department Care Team (Late st Contact Info) Description 12/22/2020 4:00 PM EDT Office Visit Hematology/Oncology at [address] [phone] Boy Tovar MD [facility] HEMATOLOGY [place] [address] Primary malignant neoplasm of right upper lobe [...] Sign Reading Time Taken Comments Blood Pressure 141/78 12/22/2020 3:59 PM EDT Pulse 75 12/22/2020 3:59 PM EDT Temperature 36.3 ??C (97.3 ??F) 12/22/2020 3:59 PM ED T Respiratory Rate 20 12/22/2020 3:59 PM EDT Oxygen Saturation 100% 12/22/2020 3:59 PM EDT Inhaled Oxygen Concentration - - Weight 113.7 kg (250 lb 9.6 oz) 12/22/2020 3:59 PM EDT Height 177.7 cm (5' 9.96) 12/22/2020 3:59 PM ED T Body Mass Index 36 12/22/2020 3:59 PM EDT documented in this encounter Progress Notes * Boy Tovar MD - 12/22/2020 4:00 PM EDT Images from the original note were not included. Hematology & Medical Oncology [address] [phone] Raffy Latif is being seen for the evaluation of lung cancer. Assessment & Plan: Raffy Latif is a [...] with insufficient quantity for further molecular's oranalyses. Reviewed the imaging and diagnosis. Discussed different treatment modalities. Explained that he needs further staging to fully evaluate and determine the optimal treatment path. Plan: - PET scan - MRI Brain (prescribed four 0.5mg lorazepam to help with his claustrophobia) - Referral to interventional pulmonary for Bronchoscopy EBUS-TBNA to stage mediastinum Boy Tovar MD, [place] 12/22/2020 Medical Oncology & Hematology [facility] CC: Nick Martinez MD [facility] HPI/Interval History/Subjective: Raffy Latif is a 60 [...] with insufficient quantity for further molecular's oranalyses. He is accompanied by his to today's visit Does not like needles. Declined colonoscopy. Had some small lung nodules identified. Didn't followiup Has some intermittent dyspnea. Can go up a flight of stairs and some times winded at the top. No untinentional weight loss. Cut out soda. No cough, hemoptysis. Chronic back pain- helped by chiroprqactors Also gets muscle cramps Heat bothers him. Social History/Support Network: Home situation: Lives with in [facility] with Velvet. 35 years. 3 children and plan to adopt another one through foster care. 1 grandchild Employment: [employer] Tobacco use: Quit in 1999. 38 Pk [...] Result (Positive/ Molecular Data: NA Treatment Course: No flowsheet data found. There are no problems to display for this patient. Allergies Allergen Reactions ??? Penicillins Nausea Only Medications 12/22/20 1602 Not on File I reviewed the problem list, allergies, medications, past medical history, social history and family history within the EPIC encounter. Pertinent details are noted above. Pertinent positives and negative from the Review of Systems are as summarized above in the HPI. Physical Exam: Wt Readings from Last 3 Encounters: 12/22/20 113.7 kg (250 lb 9.6 oz) Temp Readings from Last 3 Encounters: 12/22/20 36.3 ??C (97.3 ??F) (Temporal) 12/01/20 36.5 ??C (97.7 ??F) (Temporal) BP Readings from Last 3 Encounters: 12/22/20 141/78 12/01/20 141/77 Pulse Readings from Last 3 Encounters: 12/22/20 75 12/01/20 72 Body surface area is 2.37 meters squared. Wt Readings from Last 3 Encounters: 12/22/20 113.7 kg (250 lb 9.6 oz) KPS Score ECOG Grade [...] Thought content normal. Review of Laboratory Data: No results found for this or any previous visit (from the past 72 hour(s)). 10/08/2020 labs reviewed creatinine 1.2 calcium 9.5 albumin 4.3 LFTs within normal limits sodium 141 White blood cell count 7.8 hemoglobin 14.7 platelet count 254,000 Review of Imaging Data: I personally reviewed the reports and images in the studies as detailed in the oncology overview above. Review of Pathology Data: I personally reviewed the reports of the pathology as detailed in the oncology overview above. documented in this encounter Plan of Treatment Upcoming Encounters Date Type Department Care Team (Late st Contact Info) Description 10/17/2023 8:30 AM EDT Office Visit Hematology/Oncology at [address] [phone] Boy Tovar MD [facility] [address] HEMATOLOGY [place] [address] 10/17/2023 9:00 AM EDT Infusion Hematology Oncology at [address] [phone] Scheduled Referrals Name Type Priority Associated Diagnoses Order Schedule Referral to Pulmonology Outpatient Referral Routine Primary malignant neoplasm of right upper lobe of lung Ordered: 12/23/2020 documented as of this encounter Results * [...] who have questions please contact the health caregiver assisted living that requested your imaging first. ? Electronically signed by: Alfredo Jean-Baptiste MD, [facility] ([phone]), at 01/07/2021 10:13 AM Narrative 01/07/2021 10:13 [...] patients who have questions please contactthe health caregiver assisted living that requested your imaging first. Electronically signed by: Alfredo Jean-Baptiste MD, [facility]([phone]), at 01/07/2021 10:13 AM Boy Tovar MD [...] gland documented in this encounter Care Teams Director Digital Relationship Specialty Start Date End Date Nick Martinez MD [address] [place] [address] PCP - General Internal Medicine 07/01/18 documented as of this encounter
--- OUTSIDE RECORDS SUMMARY | 2023-10-17 04:03 | XMS_ITS | Encounter Summary ---
[place] [address] Care Team Providers Care Sewing Line Baler Name Role Phone Nick Martinez MD Primary Care Provider Reason for Referral * Diagnostic Test (Routine) - Closed Specialty Diagnoses / Procedures Referred By Contac t Referred To Contact Radiology Diagnoses Nodule of middle lobe of right lung Procedures CT Guided Biopsy Lung Chong Montano MD [address] [place] [address] [facility] [place] [address] Referral ID Status Reason Start Date Expiration Date V isits Requested Visits Authorized [id number] Closed Specialty Service Requested 12/01/2020 03/06/2021 1 1 Reason for Visit * Diagnostic Test (Routine) - Closed Specialty Diagnoses / Procedures Referred By Contac t Referred To Contact Radiology Diagnoses Nodule of middle lobe of right lung Procedures CT Guided Biopsy Lung Chong Montano MD [address] [place] [address] [facility] [place] [address] Referral ID Status Reason Start Date Expiration Date V isits Requested Visits Authorized [id number] Closed Specialty Service Requested 12/01/2020 03/06/2021 1 1 Encounter Details Date Type Department Care Team (Latest Contact Info) Description 12/01/2020 9:46 AM EDT - 12/01/2020 11:54 AM EDT Hospital Encounter CT Scan at [facility] [place] [address] Chong Montano MD [address] [place] [address] Nodule of middle lobe of right lung Discharge Disposition: Home Social History Tobacco [...] Sign Reading Time Taken Comments Blood Pressure 117/75 12/01/2020 11:35 AM EDT Pulse 72 12/01/2020 11:40 AM EDT Temperature 36.3 ??C (97.4 ??F) 12/01/2020 11:14 AM E DT Respiratory Rate 16 12/01/2020 11:40 AM EDT Oxygen Saturation 93% 12/01/2020 11:40 AM EDT Inhaled Oxygen Concentration - - Weight - - Height - - Body Mass Index - - documented in this encounter Discharge Instructions * Discharge Instructions* Vance Hopkins RN - 12/01/2020 11:34 AM EDT [facility] Vascular and Interventional Radiology Biopsy Discharge Instructions ??? Lung biopsy: coughing up a little blood is common during the next 24 hours. If large blood clots come up, or if the bleeding gets worse, you should contact us or your doctor immediately. The mostcommon complication is collapse of the lung. The symptoms of lung collapse are increasing pain on breathing, often extending into the shoulder on the side of the biopsy, and increasing difficulty breathing. If these symptoms occur after you leave the hospital, have someone drive you to the nearest Emergency Department as it must be treated promptly or call 911. Activity And Diet: ??? Go home and rest quietly for the remainder of the day. You may resume your normal activities tomorrow. ??? Resume your usual diet after the procedure. ??? Do not drive, sign any important/legal documents, or make any important decisions for 24 hours following sedation medications. When to call your healthcare provider: ??? If you see any redness, swelling or drainage at the biopsy site. ??? If you develop chills. ??? If you have a fever greater than or equal to 101 degrees Fahrenheit. ??? If you develop pain around the biopsy site. Bandage: ??? Check the dressing/bandaid throughout the day for an increase in drainage. Keep the biopsy sitedry for 24 hours. Replace the bandaid as needed. You may shower 24 hours after the biopsy. Medication: ??? DO NOT take aspirin-containing products, ibuprofen, or blood-thinning medication for the next 24 hours unless your clinician says you may do so. ??? Generally you may use acetaminophen as needed for discomfort unless you have liver disease and are instructed not to take acetaminophen. Biopsy Results ??? The results of your biopsy should be available within 5 business days and will be reported to you by your primary infant caregiver or the clinician who ordered the biopsy. Please do not call us forresults as we will not have them. ??? If you have not been contacted by your clinician within 5 business days you should call that office for further information. When to call the Interventional Radiology Department: Please call with any questions or concerns. If it is during regular office hours, please call [phone]. If it is after regular office hours, or on weekends or holidays, please call [phone] and ask to speak to the Operations Engineer cotton buyer for Interventional Radiology. You have received medication during your procedure to help lessen anxiety and keep you comfortable.These medications affect judgement and reaction time. We recommend that you do not drive, operate equipment, sign any important documents, or smoke unattended for 24 hours following your procedure. Because of the sedation, be careful on stairs, as you may be unsteady on your feet. You may resume your regular diet as tolerated. IV site -- slight redness, or tenderness is normal, you can use a warm compress. If tenderness and redness increases or foul drainage occurs, please contact your M. D. Revised 12/21/18 documented in this encounter Progress Notes * Vance Hopkins RN - 12/01/2020 11:29 AM EDT ANGIO NURSING DATABASE Name: RAFFY LENNON Date of : 1960 AGE: 60 y.o. Address: [address] [place] [address] (home) Mobile: Telephone Information: Referring Provider: Chong Montano REASON FOR VISIT: Order Questions Answers Where will study be performed? [facility] Radiology [120] Laterality Right Is the patient on anticoagulant / antiplatelet therapy ? No Does the patient have any pertinent outside imaging? Yes Reason for exam and clinical history: Pulmonary Nodule, Right middle Lobe Clinical information / mcmahon questions: Outside order- in media tab Not on File Pertinent PSH: No past surgical history on file. Date/Procedure Meds given/comments 12/01/20 Ct guided lung biopsy Fentanyl 100 mcg IV, versed 2 mg IV 1124to procedure room ct1 via stretcher. Onto table supine. All monitors, O2, safety strap in place. Meds per protocol. Laboratory Results: documented in this encounter H&P Notes * Quintin Burnette MD - 12/01/2020 11:05 AM EDTSummary: HP Update Note INTERVENTIONAL RADIOLOGY PRE-SEDATION ASSESSMENT / FOCUSED H&P Planned Procedure: CT guided Right Middle Lobe Lung Biopsy The patient's history and physical exam have been reviewed and completed. There has been no interval change from that of the pre-operative history and physical exam done within the last 30 days. The planned procedure, its benefits and risks were discussed with the patient. The patient consented to the procedure. ASA: 2: Patient with mild systemic disease Mallampati: II: tonsillar pillars are blocked by the tongue Cardiovascular: no murmur no systolic click Pulmonary: Breath sounds clear to auscultation no rhonchi Consent: The sedation plan, its benefits and risks, and alternatives were discussed with the patient. The planned procedure, its benefits and risks, and alternatives were discussed with the patient. The patient consented to the procedure. H&P reviewed: Yes Confirm NPO status: Yes History of anesthetic complications (describe if yes): No Allergies Reviewed: Yes Current Medications Reviewed: Yes documented in this encounter Plan of Treatment Upcoming Encounters Date Type Department Care Team (Late st Contact Info) Description 10/17/2023 8:30 AM EDT Office Visit Hematology/Oncology at [address] [phone] Boy Tovar MD [facility] DR HEMATOLOGY [place] [address] 10/17/2023 9:00 AM EDT Infusion Hematology Oncology at [address] [phone] documented as of this encounter Procedures Procedure Name Priority Date/Time Associated Diagnosis Comments XR CHEST ONE VIEW Routine 12/01/2020 1:5 9 PM EDT XR CHEST ONE VIEW Routine 12/01/2020 12: [address] GUIDED BIOPSY LUNG Routine 12/01/2020 11:55 AM EDT Nodule of middle lobe of right lung SURGICAL PATHOLOGY REPORT Routine 12/01/2020 11:45 AM EDT SPECIMEN TO PATHOLOGY Routine 12/01/2020 10:57 AM EDT documented in this encounter Results * XR Chest One View (12/01/2020 1:59 PM EDT) Anatomical Region Laterality Modality Chest N/A Digital Radiogra phy Impressions 12/01/2020 2:14 PM EDT Trace right apical pneumothorax unchanged in size. Thank you for letting us participate in the care of this patient. ??If you are a health care provider and have any questions regarding this report, please contact the number below. ??For patients who have questions please contact the health health care specialist that requested your imaging first. ? Narrative 12/01/2020 2:14 PM EDT EXAMINATION: XR CHEST ONE VIEW CLINICAL HISTORY: 2-hour follow up from RML nodule biopsy. ??Trace pneumothorax at end of procedure. TECHNIQUE: 1 view of the chest COMPARISON: PA chest radiograph earlier the same day FINDINGS: Trace right apical pneumothorax is unchanged in size from the radiograph 2 hours previously. The lungs are clear. No pleural effusion. Unchanged cardiac and mediastinal silhouettes. Procedure Note Bill Rapp MD - 12/01/2020 EXAMINATION: XR CHEST ONE VIEW CLINICAL HISTORY: 2-hour follow up from RML nodule biopsy. Tracepneumothorax at end of procedure. TECHNIQUE: 1 view of the chest COMPARISON: PA chest radiograph earlier the same day FINDINGS: Trace right apical pneumothorax is unchanged in size from the radiograph 2hours previously. The lungs are clear. No pleural effusion. Unchanged cardiacand mediastinal silhouettes. IMPRESSION Trace right apical pneumothorax unchanged in size. Thank you for letting us participate in the care of this patient. If youare a health care provider and have any questions regarding this report,please contact the number below. For patients who have questions please contactthe health health care specialist that requested your imaging first. Jarad P Tal DO IMG DX ORDERABLES * XR Chest One View (12/01/2020 12:07 PM EDT) Anatomical Region Laterality Modality Chest N/A Digital Radiogra phy Impressions 12/01/2020 12:27 PM EDT Trace postbiopsy right apical pneumothorax. Thank you for letting us participate in the care of this patient. ??If you are a health care provider and have any questions regarding this report, please contact the number below. ??For patients who have questions please contact the health health care specialist that requested your imaging first. ? Narrative 12/01/2020 12:27 PM EDT EXAMINATION: XR CHEST ONE VIEW CLINICAL HISTORY: status post right middle lobe biopsy. ??Trace pneumothorax on final CT, stable on 5-minute delay. ??Baseline. TECHNIQUE: PA chest radiograph 12/01/2020 at 1209 hours. COMPARISON: CT-guided biopsy earlier today. FINDINGS: Trace pneumothorax at the right apex. Faintly visible biopsied right lung nodule. Otherwise, lungs appear clear. Mediastinal silhouette within normal limits. No pleural fluid seen. No significant osseous findings. Procedure Note Yoana Patel MD - 12/01/2020 EXAMINATION: XR CHEST ONE VIEW CLINICAL HISTORY: status post right middle lobe biopsy. Tracepneumothorax on final CT, stable on 5-minute delay. Baseline. TECHNIQUE: PA chest radiograph 12/01/2020 at 1209 hours. COMPARISON: CT-guided biopsy earlier today. FINDINGS: Trace pneumothorax at the right apex. Faintly visible biopsiedright lung nodule. Otherwise, lungs appear clear. Mediastinal silhouette withinnormal limits. No pleural fluid seen. No significant osseous findings. IMPRESSION Trace postbiopsy right apical pneumothorax. Thank you for letting us participate in the care of this patient. If youare a health care provider and have any questions regarding this report,please contact the number below. For patients who have questions please contactthe health health care specialist that requested your imaging first. Electronically signed by: Yoana Patel MD, [facility]([phone]), at 12/01/2020 12:27 PM Jarad Parada DO IMG DX ORDERABLES * CT Guided Biopsy Lung (12/01/2020 11:55 AM EDT) Anatomical Region Laterality Modality Lung Computed Tomogra phy Narrative 12/01/2020 12:18 PM EDT INTERVENTIONAL RADIOLOGY PROCEDURE NOTE Procedure: CT-Guided Right Middle Lobe Biopsy Indication for Procedure: Enlarging pulmonary nodule Consent: After discussing the risks (including infection, hemorrhage, damage to surrounding structures, respiratory depression) and benefits, the patient consented to the procedure. Method of Sedation: ??Due to the painful nature of the procedure, patient received split doses of intravenous fentanyl and versed from the IR nurse while pulse, pressure, and oxygen saturation were continuously monitored. 1% lidocaine was used for local analgesia. Technique: Initial non-contrast localizing scan obtained, lesion was localized. ??A site for biopsy was chosen and identified on the skin with the assistance of the CT laser lights. ??The skin was marked and local anesthesia provided with 1% lidocaine. ??An 19 gauge guiding needle was directed into the target with CT fluoroscopy. Coaxially, four 20-gauge 2-cm core biopsies were obtained. ??As the needle was removed, a Biosentry device was deployed. ??A post procedure scan was obtained. ?? EBL: <5 cc Complications: ??Trace post-procedure pneumothorax, stable on 5-minute delay. ?? Specimens: Four 20-gauge 2-cm core biopsies Findings: -Stable appearance of right middle lobe pulmonary nodule. -CT demonstrating biopsy needle in good position at the margin of right middle lobe pulmonary nodule. -Trace pneumothorax on post-procedure CT. No enlargement at 5 minutes post-procedure. Impression: Successful CT-guided biopsy of right middle lobe pulmonary nodule. Plan/Disposition: 1) To Angio recovery room, may transfer/discharge to home when meets criteria. 2) Immediate and 2 hour post-procedure CXRs to evaluate for interval enlargement of trace post-procedure pneumothorax. Cash Manager(s): Resident/Fellow: ??Quintin Burnette MD Attending: Jarad Parada MD I, Dr. Parada, was present throughout the procedure. I was present during the intraservice time as documented by the IR Nurse. ?? Chong Montano MD IMG CT ORDERABLES * Surgical Pathology Report (12/01/2020 11:45 AM EDT) Final Diagnosis [id number] ? Location: [facility] The signing pathologist has (i) examined the relevant preparation(s) for the specimen(s) and (ii) rendered or confirmed the diagnosis(es). . ?Surgical Pathology DIAGNOSIS A - Lung, right, core biopsy: ??- Invasive adenocarcinoma, acinar predominant. Electronically signed by: ?Gladis Garcia MD Verified: ??12/03/2020 16:51 ??Pathologist Performed at: ??-[facility] Dept. of Pathology, [place], [place] DISCUSSION The biopsy demonstrates a few foci of invasive adenocarcinoma in a background of abundant fibrosis and chronic inflammation. The specimen is inadequate for PD-L1 immunohistochemistry or molecular testing. Deeper levels were examined. ADDITIONAL STUDIES Immunohistochemistry Studies: Formalin-fixed, paraffin-embedded tissue sections are studied using the polymer technique with appropriate positive and negative controls. ?These IHC studies provide the pathologist with adjunctive diagnostic information. Antibody specificity has been verified by testing antibodies on a series of in-house tissues with known immunohistochemical performance characteristics. The clinical interpretation of any antibody positive staining or its absence is evaluated within the context of clinical presentation, morphology, histopathological criteria and other diagnostic tests. Block ? Antibody ?Result (Positive/Negative) A1 ? TTF-1 (Dako) ?Positive SPECIMEN(S) SUBMITTED A - Lung, right, core biopsy CLINICAL INFORMATION 60-year-old male with enlarging RML nodule SPECIMEN PROCESSING A - Labeled/Fixative: Patient demographics, formalin. Quantity/Size: Four, ranging from 0.6 x 0.1 cm to 1.3 x 0.1 cm Tissue Description: Resendez-pink needle core biopsies. Sections/Processing: Entirely submitted in 1 cassette labeled A1. ??sns 12/03/2020 4:[address] [facility] LUNG STRUCTURE / Unknown 12/01/2020 11:45 AM EDT 12/01/2020 11:45 AM EDT Chong Montano MD PATHOLOGY/CYTOLOGY O NAT Performing Organization Address [facility] Co de Phone Number [facility] [place] [phone] * Specimen to Pathology (12/01/2020 10:57 AM EDT) AP Specimen 12/01/2020 10:5 7 AM EDT 12/01/2020 10:[address] [facility] - 12/01/2020 10:57 AM EDT Specimen requisition ordered. ??Separate Pathology report to follow Chong Montano MD PATHOLOGY/CYTOLOGY O NAT Performing Organization Address [facility] [[email or web address]] de Phone Number [facility] [place] [address] documented in this encounter Visit Diagnoses Diagnosis Nodule of middle lobe of right lung Primary malignant neoplasm of right upper [...] MAR Action Action Date Dose Rate Site fentaNYL (pf) (50 mcg/mL) multi-dose injection 25-50 mcg 25-50 mcg, Intravenous, EVERY 3 MIN PRN, Starting on Tue12/01/20 at 1025, Until Tue12/01/20 at 1403, Pain, per unit protocol, - Start dose 50 mcg (reduce dose to 25 mcg if history of sedation sensitivity). - Titration dose 25-50 mcg IV, (based on patient response) every 3 minutes PRN, to maintain procedural pain less than 2 per pain Scale. Maximum dose: 50 mcg/dose, 250 mcg/hour For use in Interventional Radiology (IR) only for procedural sedation with direct provider supervision and verbal order., Angio/IR (Intra-Procedure), Routine Given 12/01/2020 11:36 AM EDT 50 mcg Given 12/01/2020 11:27 AM EDT 50 mcg lidocaine (Xylocaine) 1% (10 mg/mL) injection 10 mg 10 mg, Subcutaneous, ONCE, 1 dose, On Tue12/01/20 at 1045, For use in Interventional Radiology (IR) only for procedure with direct provider supervision and verbal order., Angio/IR (Intra-Procedure), Routine Given 12/01/2020 11:33 AM EDT 10 mg midazolam (pf) (Versed) (1 mg/mL) multi-dose injection 0.5-1 mg 0.5-1 mg, Intravenous, EVERY 3 MIN PRN, Starting on Tue12/01/20 at 1025, Until Tue12/01/20 at 1403, Sleep, - Start dose; 1 mg (Reduce dose to 0.5 mg if history of sedation sensitivity). - Titration dose: 0.5 mg - 1 mg (based on patient response) every 3 minutes PRN to obtain RASS score of -3. Maximum dose: 1 mg per dose, 5 mg/hour. For use in Interventional Radiology (IR) only for procedural sedation with direct provider supervision and verbal order., Angio/IR (Intra-Procedure), Routine Given 12/01/2020 11:37 AM EDT 1 mg Given 12/01/2020 11:27 AM EDT 1 mg sodium chloride 0.9 % (flush) (BD PosiFlush Normal Saline 0.9) flush 5 mL 5 mL, Intravenous, 2 TIMES DAILY, First dose on Tue12/01/20 at 1045, Until Discontinued, Routine Given 12/01/2020 11:33 AM EDT 5 mLs sodium chloride 0.9% infusion 1,000 mL, at 100 mL/hr, Intravenous, CONTINUOUS, Starting on Tue12/01/20 at 1045, Until Tue12/01/20 at 1403, Angio/IR (Day of Procedure) New Bag 12/01/2020 11:33 AM EDT 1,000 mLs 100 mL/hr documented in this encounter Care Teams Sewing Line Baler Relationship Specialty Start Date End Date Nick Martinez MD [address] [place] [address] PCP - General Internal Medicine 07/01/18 documented as of this encounter
--- OUTSIDE RECORDS SUMMARY | 2023-10-17 04:03 | XMS_ITS | Encounter Summary ---
Author Organization [facility] [place] [address] Care Team Providers Care Electronics Research Engineer Name Role Phone Unavailable Primary Care Provider Unavailabl e Encounter Details Date Type Department Care Team (Late Contact Info) Description 05/26/2018 Ancillary Procedure [place] [address] Nick Martinez MD [address] [place] [address] Social History Tobacco Use Types Packs/Day Years Used Date Smoking Tobacco: Never Assessed Sex and Gender Information Value Date Recorded Sex Assigned at Not on file Gender Identity Not on file Sexual Orientation Not on file documented as of this encounter Plan of Treatment Upcoming Encounters Date Type Department Care Team (Late Contact Info) Description 10/17/2023 8:30 AM EDT Office Visit Hematology/Oncology at [address] [phone] Boy Tovar MD [facility] DR HEMATOLOGY [place] [address] 10/17/2023 9:00 AM EDT Infusion Hematology Oncology at [address] [phone] documented as of this encounter Procedures Procedure Name Priority Date/Time Associated Diagnosis Comments FILM LIBRARY STORAGE ONLY CT CHEST Routine 05/26/2018 12:00 AM EDT documented in this encounter Results * Film Library- Storage Only CT Chest (05/26/2018 12:00 AM EDT) Narrative SUMEET - 11/27/2020 4:03 PM EDT This exam is auto-finalizing. It's purpose is for storage only. Nick Martinez MD G FILM LIBRARY ORD ERABLES [place], [place] documented in this encounter Visit Diagnoses Not on filedocumented in this encounter
--- OUTSIDE RECORDS SUMMARY | 2023-10-17 04:03 | XMS_ITS | Encounter Summary ---
Author Organization [facility] Address [address] [place] [address] Care Team Providers Care Ordinary Seaman Name Role Phone Unavailable Primary Care Provider Unavailabl e Encounter Details Date Type Department Care Team (Late st Contact Info) Description 04/19/2023 Lab Requisition [facility] Pathology & Laboratory Medicine - [address] [address] Outr Resulting Lab, Provider Social History Tobacco Use Types Packs/Day Years Used Date Smoking Tobacco: Never Assessed Sex and Gender Information Value Date Recorded Sex Assigned at Not on file Gender Identity Not on file Sexual Orientation Not on file documented as of this encounter Plan of Treatment Not on file documented as of this encounter Procedures Procedure Name Priority Date/Time Associated Diagnosis Comments HIGH SENSITIVITY C-REACTIVE PROTEIN (CARDIOVASCULAR DISEASE) Routine 04/18/2023 16:45 EST documented in this encounter Results * HIGH SENSITIVITY C-REACTIVE PROTEIN (CARDIOVASCULAR DISEASE) (04/18/2023 16:45 EST) High Sensitivity CRP 5.14 See Note mg/L 04/19/2023 17:48 EST [facility] Comment: Reference Range: ??Low Risk: ? <1.0 mg/L ??Average Risk: ?? 1.0 - 3.0 mg/L ??High Risk: ?>3.0 mg/L ??Indeterminate*: >10.0 mg/L ??*May be an indication of another source of inflammation or infection Blood VENOUS BLOOD / Unknown 04/18/2023 16:45 EST 04/19/2023 17:04 EST Provider Outr Resulting Lab CHEMISTRY & BLOOD GAS ORDERABLES [facility] [address] [place] [address] documented in this encounter Visit Diagnoses Not on filedocumented in this encounter
--- OUTSIDE RECORDS SUMMARY | 2023-10-17 04:03 | XMS_ITS | Encounter Summary ---
Author Organization Formerly [facility] [place] [address] Care Team Providers Care Bolt Loader Name Role Phone Nick Martinez MD Primary Care Provider Reason for Visit * Auth/Cert Specialty Diagnoses / Procedures Referred By Mariana t Referred To Contact Diagnoses Lung cancer/ Bronchoscopy with EBUS/ GA/ Backer Procedures PRO [facility] EBUS GUIDED SAMPL 1/2 NODE STATION/STRUX BRONCH, W ENDOBRONCHIAL ULTRASOUND (EBUS) GUIDED SAMPLING, 1/2 NODES (WRVU 4.71) Referral ID Status Reason Start Date Expiration Date Visits Re quested Visits Authorized [id number] 1 1 Encounter Details Date Type Department Care Team (Latest Contact Info) Description 12/31/2020 2:02 PM EDT - 12/31/2020 6:19 PM EDT Hospital En[place] [phone] Roman Teran MD [facility] PULMONARY [place] [address] Discharge Disposition: Home Social History Tobacco Use [...] slept in a assisted (including now)? No 12/22/2020 Sex and Gender [...] our office at . There is someone production repairer to speak with 27/09. Roman Teran MD, [...] Section of Pulmonary & Critical Care Pager: [phone] documented in this encounter Miscellaneous Notes * [...] (4 lymph node stations): The Olympus EBUS ([id number]) scope was inserted, lymph node inspection undertaken [...] station 12R was not identified. Therapeutic Suctioning (76786): At least 15-20 min of operative time [...] Section of Pulmonary & Critical Care Pager: [phone] documented in this encounter Plan of Treatment Upcoming Encounters Date Type Department Care Team (Late st Contact Info) Description 10/17/2023 8:30 AM EDT Office Visit Hematology/Oncology at [address] [phone] Boy Tovar MD [facility] [place] [address] 10/17/2023 9:00 AM EDT Infusion Hematology Oncology at [address] [phone] documented as of this encounter Procedures Procedure Name Priority Date/Time Associated Diagnosis Comments SOLID TUMOR NGS PANEL Routine 12/31/2020 4:28 PM EDT NON-CUSTOM WOOD STAIR BUILDER FINAL REPORT Routine 12/31/2020 4:28 PM EDT CYTOPATHOLOGY NON-GYNECOLOGICAL Routine 12/31/2020 4:28 PM EDT NON-CUSTOM WOOD STAIR BUILDER FINAL REPORT Routine 12/31/2020 4:18 PM EDT CYTOPATHOLOGY NON-GYNECOLOGICAL Routine 12/31/2020 4:18 PM EDT NON-CUSTOM WOOD STAIR BUILDER FINAL REPORT Routine 12/31/2020 4:09 PM EDT CYTOPATHOLOGY NON-GYNECOLOGICAL Routine 12/31/2020 4:09 PM EDT NON-CUSTOM WOOD STAIR BUILDER FINAL REPORT Routine 12/31/2020 3:58 PM EDT CYTOPATHOLOGY NON-GYNECOLOGICAL Routine 12/31/2020 3:58 PM EDT [facility] Guided Sampl 3/> Node Station/Strux ([id number]) Yes 12/31/2020 3:32 PM EDT Malignant neoplasm of lung, unspecified laterality, unspecified part of lung documented in this encounter Results * Non-Overhead Crane Technician Final Report (12/31/2020 4:28 PM EDT) Diagnosis Discussion [id number] ? Location: [facility]; A The signing pathologist has (i) examined [...] The assay was performed according to the park guard's instructions using Anti-PD-L1 (22C3, pharmDX) antibody. Electronically signed by: ?Aparna Varela DO Verified: ??01/06/2021 15:59 ??Pathologist Performed at: ??-[facility] [place], [place], [place] ? Non-Overhead Crane Technician Final DIAGNOSIS Positive for Malignancy Electronically signed by: ?Bradley Zelaya MD Verified: ??01/05/2021 12:33 ??Cytopathologist Performed at: ??-[facility] [place], [place], [place] DISCUSSION Lymph node: 11R (EBUS-guided FNA) [...] Cell Block 1. 01/06/2021 3:59 PM EDT [facility] LYMPH NODE SPECIMEN / Unknown 12/31/2020 4:28 PM EDT 12/31/2020 4:28 PM EDT Roman Teran MD PATHOLOGY/CYTOLOGY O NAT Performing Organization Address [facility] de Phone Number [facility] [place] [phone] * Solid Tumor NGS Panel (12/31/2020 4:28 PM EDT) Tissue 12/31/2020 4:28 PM EDT 01/06/2021 7:06 AM EDT Narrative Resulting Agency Comment Spec In Lab Roman Teran MD PATHOLOGY/CYTOLOGY O NAT Performing Organization Address [facility] Co de Phone Number [facility] [place] [address] * Cytopathology Non-Gynecological (12/31/2020 4:28 PM EDT) AP Specimen 12/31/2020 4:28 PM EDT 12/31/2020 4:28 PM EDT Narrative [facility] - 12/31/2020 4:28 PM EDT Specimen requisition ordered. ??Separate Pathology report to follow Roman Teran MD PATHOLOGY/CYTOLOGY O NAT Performing Organization Address [facility] Co de Phone Number [facility] [place] [address] * Non-Overhead Crane Technician Final Report (12/31/2020 4:18 PM EDT) Diagnosis Discussion -[id number] ? Location: [facility]; A The signing pathologist has (i) examined the relevant preparation(s) for the specimen(s) and (ii) rendered or confirmed the diagnosis(es). . ? Non-Overhead Crane Technician Final DIAGNOSIS Suspicious for Malignancy Electronically signed by: ?Mckinley VENTURA, Nabil Verified: ??01/05/2021 17:21 ??Pathologist Performed at: ??-[facility] [place], [place], [place] DISCUSSION Lymph node, 4R (EBUS-guided FNA): Extremely scant ??cellularity specimen. Rare minute clusters of atypical epithelial cells, highly suspicious for malignancy/ carcinoma. Please see the ??concurrent FNA specimens (, , ). Additional multiple deeper levels examined. CLINICAL INFORMATION Specimen Source : Lymph node, 4R (EBUS-guided FNA) Pertinent Clinical Data and Significant Therapy: Lung cancer/ Bronchoscopy with EBUS/ GA/ Backcurt Clinical Impression : Right middle lobe lung cancer Pertinent Radiologic Findings ??: (not provided) Gross Description: Received ??in [place] approximately 45 mL total volume of ?? cloudy, pink fluid, with light flecks, with dark flecks. Total Preparation: Cell Block 1. 01/05/2021 5:21 PM EDT [facility] LYMPH NODE SPECIMEN / Unknown 12/31/2020 4:18 PM EDT 12/31/2020 4:18 PM EDT Roman Teran MD PATHOLOGY/CYTOLOGY O RDERABLES Performing Organization Address City/State/[facility] Co de Phone Number [facility] [place] [address] * Cytopathology Non-Gynecological (12/31/2020 4:18 PM EDT) AP Specimen 12/31/2020 4:18 PM EDT 12/31/2020 4:18 PM EDT Narrative [facility] - 12/31/2020 4:18 PM EDT Specimen requisition ordered. ??Separate Pathology report to follow Roman Teran MD PATHOLOGY/CYTOLOGY O RDERABLES Performing Organization Address City/[facility] Co de Phone Number [facility] [place] [address] * Non-Overhead Crane Technician Final Report (12/31/2020 4:09 PM EDT) Diagnosis Discussion [id number] ? Location: [facility]; The signing pathologist has (i) examined the relevant preparation(s) for the specimen(s) and (ii) rendered or confirmed the diagnosis(es). . ? Non-Overhead Crane Technician Final DIAGNOSIS Positive for Malignancy Electronically signed by: ?Bradley Zelaya MD Verified: ??01/05/2021 12:17 ??Cytopathologis t Performed at: ??-[facility] [place], [place], [place] DISCUSSION Lymph node: station 7 (EBUS-guided FNA) - A rare cluster of highly atypical epithelial cells, compatible with a non-small cell carcinoma, present. See also the concurrent 11R lymph node FNA, [id number]. Dr. Neville concurs with the diagnosis. (Cell [...] Cell Block 1. 01/05/2021 12:17 PM EDT [facility] LYMPH NODE SPECIMEN / Unknown 12/31/2020 4:09 PM EDT 12/31/2020 4:09 PM EDT Roman Teran MD PATHOLOGY/CYTOLOGY O NAT Performing Organization Address [facility] Co de Phone Number [facility] [place] [address] * Cytopathology Non-Gynecological (12/31/2020 4:09 PM EDT) AP Specimen 12/31/2020 4:09 PM EDT 12/31/2020 4:09 PM EDT Narrative [facility] - 12/31/2020 4:09 PM EDT Specimen requisition ordered. ??Separate Pathology report to follow Roman Teran MD PATHOLOGY/CYTOLOGY O NAT Performing Organization Address [facility] Co de Phone Number [facility] [place] [address] * Non-Overhead Crane Technician Final Report (12/31/2020 3:58 PM EDT) Diagnosis Discussion [id number] ? Location: [facility]; A The signing pathologist has (i) examined the relevant preparation(s) for the specimen(s) and (ii) rendered or confirmed the diagnosis(es). . ? Non-Overhead Crane Technician Final DIAGNOSIS Positive for Malignancy Electronically signed by: ?Garcia VENTURA, Bradley Laird Verified: ??01/05/2021 12:12 ??Cytopathologis t Performed at: ??-[facility] [place], [place], [place] DISCUSSION Lymph node: 4L (EBUS-guided FNA) - A few clusters of highly atypical epithelial cells, compatible with a non-small cell carcinoma, present. See also the concurrent 11R lymph node FNA, [id number]. Dr. Neville concurs with the diagnosis. (Cell [...] Cell Block 1. 01/05/2021 12:12 PM EDT [facility] LYMPH NODE SPECIMEN / Unknown 12/31/2020 3:58 PM EDT 12/31/2020 3:58 PM EDT Roman Teran MD PATHOLOGY/CYTOLOGY O NAT Performing Organization Address [facility] Co de Phone Number [facility] [place] [address] * Cytopathology Non-Gynecological (12/31/2020 3:58 PM EDT) AP Specimen 12/31/2020 3:58 PM EDT 12/31/2020 3:58 PM EDT Narrative [facility] - 12/31/2020 3:58 PM EDT Specimen requisition ordered. ??Separate Pathology report to follow Roman Teran MD PATHOLOGY/CYTOLOGY O NAT Performing Organization Address [facility]/ZIP Co de Phone Number [facility] [place] [address] documented in this encounter Visit Diagnoses Not [...] RN) documented in this encounter Care Teams Bolt Loader Relationship Specialty Start Date End Date Nick Martinez MD [address] [place] [address] PCP - General Internal Medicine 07/01/18 documented as of this encounter
--- OUTSIDE RECORDS SUMMARY | 2023-10-17 04:03 | XMS_ITS | Encounter Summary ---
Author Organization [facility] Address [address] [place] [address] Care Team Providers Care Software Quality Assurance Engineer Name Role Phone Unavailable Primary Care Provider Unavailabl e Encounter Details Date Type Department Care Team (Late st Contact Info) Description 07/17/2023 Lab Requisition [facility] Pathology & Laboratory Medicine - [facility] [address] [place] [address] Outr Resulting Lab, Provider Social History Tobacco [...] Procedure Name Priority Date/Time Associated Diagnosis Comments EXPANDED RESPIRATORY VIRAL PANEL, PCR (DOES NOT INCLUDE INFLUENZA OR RSV) Routine 07/17/2023 12:04 EDT documented in this encounter Results * EXPANDED RESPIRATORY VIRAL PANEL, PCR (DOES NOT INCLUDE INFLUENZA OR RSV) (07/17/2023 12:04 EDT) Paraflu Type 1 Rslt (PF1RES) Negative Negative 07/18/2023 21:21 EDT [facility] Paraflu Type 2 Rslt (PF2RES) Negative Negative 07/18/2023 21:21 EDT [facility] Paraflu Type 3 Rslt (PF3RES) Negative Negative 07/18/2023 21:21 EDT [facility] Paraflu Type 4 Rslt Negative Negative 07/17 21:21 EDT [facility] Rhinovirus RNA Rslt (RVRES) Negative Negative 07/18/2023 21:21 EDT [facility] Metapneumovirus RNA Rslt (HMVRES) Negative Negative 07/18/2023 21:21 EDT [facility] Adenovirus DNA Rslt (ADVRES) Negative Negative 07/18/2023 21:21 EDT [facility] Swab NASOPHARYNGEAL STRUCTURE / Unknown 07/17/2023 12:04 EDT 07/18/2023 17:14 EDT Provider Outr Resulting Lab MICROBIOLOGY - GENERAL ORDERABLES [facility] [address] [place], [place] [id number] documented in this encounter Visit Diagnoses Not on filedocumented in this encounter
--- OUTSIDE RECORDS SUMMARY | 2023-10-17 04:03 | XMS_ITS | Clinical Summary ---
Author Organization [facility] Address [address] [place] [address] Care Team Providers Care Director Of Home Care Hospice Name Role Phone Unavailable Primary Care Provider Unavailabl e Encounters Date Type Department Care Team Description 07/17/2023 Lab Requisition [facility] Pathology & Laboratory Medicine - [facility] [address] [place] [address] Outr Resulting Lab, Provider from Last 3 Months Social History Tobacco Use Types Packs/Day Years Used Date Smoking Tobacco: Never Assessed Sex and Gender Information Value Date Recorded Sex Assigned at Not on file Gender Identity Not on file Sexual Orientation Not on file Plan of Treatment Health Maintenance Due Date Last Done Comments Hepatitis C Screen 1960 RSV Immunization ( o r 60+ Years) (1 - 1-dose 60+ series) 2018 COVID-19 Vaccine (2022- season) 2022 Procedures Procedure Name Priority Date/Time Associated Diagnosis Comments EXPANDED RESPIRATORY VIRAL PANEL, PCR (DOES NOT INCLUDE INFLUENZA OR RSV) Routine 07/17/2023 12:04 EDT from Last 3 Months Results * EXPANDED RESPIRATORY VIRAL PANEL, PCR (DOES NOT INCLUDE INFLUENZA OR RSV) (07/17/2023 12:04 EDT) Paraflu Type 1 Rslt (PF1RES) Negative Negative 07/18/2023 21:21 EDT [facility] Paraflu Type 2 Rslt (PF2RES) Negative Negative 07/18/2023 21:21 EDT [facility] Paraflu Type 3 Rslt (PF3RES) Negative Negative 07/18/2023 21:21 EDT [facility] Paraflu Type 4 Rslt Negative Negative 07/17 21:21 EDT [facility] Rhinovirus RNA Rslt (RVRES) Negative Negative 07/18/2023 21:21 EDT [facility] Metapneumovirus RNA Rslt (HMVRES) Negative Negative 07/18/2023 21:21 EDT [facility] Adenovirus DNA Rslt (ADVRES) Negative Negative 07/18/2023 21:21 EDT [facility] Swab NASOPHARYNGEAL STRUCTURE / Unknown 07/17/2023 12:04 EDT 07/18/2023 17:14 EDT Provider Outr Resulting Lab MICROBIOLOGY - GENERAL ORDERABLES [facility] [address] [place] [address] from Last 3 Months
--- OUTSIDE RECORDS SUMMARY | 2023-10-17 04:03 | XMS_ITS | Encounter Summary ---
Author Organization [facility] Address [address] [place] [address] Care Team Providers Care Rn On Site Name Role Phone Unavailable Primary Care Provider Unavailabl e Encounter Details Date Type Department Care Team (Late st Contact Info) Description 03/26/2021 Lab Requisition [facility] Pathology & Laboratory Medicine - [facility] [address] [place] [address] Outr Resulting Lab, Provider Social History Tobacco [...] Procedure Name Priority Date/Time Associated Diagnosis Comments [facility] Today 03/26/2021 11:30 EST COVID-19 TESTING Routine 03/26/2021 11:3 0 EST documented in this encounter Results * COVID-19 TEST [facility] PCR (03/26/2021 11:30 EST) Swab 03/26/2021 11:3 0 EST 03/26/2021 22:14 EST Provider Outr Resulting Lab MICROBIOLOGY - GENERAL ORDERABLES [facility] [address] [place] [address] * (ABNORMAL) COVID-19 TESTING (03/26/2021 11:30 EST) COVID-19 rt-PCR Result Positive( AA) Negative 03/27/2021 17:04 EST [facility] Comment: This test has not been FDA cleared or approved. This test has been authorized by FDA under an EUA for use by authorized laboratories. This test has been authorized only for detection of nucleic acid from 2019-nCoV, not for any other viruses or pathogens. This test is only authorized for the duration of the declaration that circumstances exist justifying the authorization of emergency use of in vitro diagnostic tests for detection and/or diagnosis of 2019-nCoV under section 564(b)(1) of Act, 21 U.S.C ?? 360bbb-3(b) (1), unless the authorization is terminated or revoked sooner. Testing was performed using the qamar SARS-CoV-2 assay ([employer] on the Qamar 6800 System Performing Lab Qamar [address] [facility] Lab 03/27/2021 17:04 EST [facility] Swab 03/26/2021 11:3 0 EST 03/26/2021 22:14 EST Provider Outr Resulting Lab MICROBIOLOGY - GENERAL ORDERABLES Performing Organization Address City/State/[facility] Co de Phone Number [facility] [address] [place] [address] documented in this encounter Visit Diagnoses Not on filedocumented in this encounter Additional Health Concerns Infection Onset Date Last Indicated Resolved Time COVID-19 03/26/2021 03/26/2021 04/15/2021 22:1 5 EST documented as of this encounter
--- OUTSIDE RECORDS SUMMARY | 2023-10-17 04:03 | XMS_ITS | Referral Summary ---
Author Organization [facility] Address [address] [place] [address] Care Team Providers Care Nut Dehydrator Operator Name Role Phone Unavailable Primary Care Provider Unavailabl e Encounters Date Type Department Care Team Description 07/17/2023 Lab Requisition [facility] Pathology & Laboratory Medicine - [facility] [address] [place] [address] Outr Resulting Lab, Provider from Last 3 Months Social History Tobacco Use Types Packs/Day Years Used Date Smoking Tobacco: Never Assessed Sex and Gender Information Value Date Recorded Sex Assigned at Not on file Gender Identity Not on file Sexual Orientation Not on file Plan of Treatment Not on file Procedures Procedure Name Priority Date/Time Associated Diagnosis Comments EXPANDED RESPIRATORY VIRAL PANEL, PCR (DOES NOT INCLUDE INFLUENZA OR RSV) Routine 07/17/2023 12:04 EDT from Last 3 Months Results * EXPANDED RESPIRATORY VIRAL PANEL, PCR (DOES NOT INCLUDE INFLUENZA OR RSV) (07/17/2023 12:04 EDT) Paraflu Type 1 Rslt (PF1RES) Negative Negative 07/18/2023 21:21 EDT [facility] Paraflu Type 2 Rslt (PF2RES) Negative Negative 07/18/2023 21:21 EDT [facility] Paraflu Type 3 Rslt (PF3RES) Negative Negative 07/18/2023 21:21 EDT [facility] Paraflu Type 4 Rslt Negative Negative 07/17 21:21 EDT [facility] Rhinovirus RNA Rslt (RVRES) Negative Negative 07/18/2023 21:21 EDT [facility] Metapneumovirus RNA Rslt (HMVRES) Negative Negative 07/18/2023 21:21 EDT [facility] Adenovirus DNA Rslt (ADVRES) Negative Negative 07/18/2023 21:21 EDT [facility] Swab NASOPHARYNGEAL STRUCTURE / Unknown 07/17/2023 12:04 EDT 07/18/2023 17:14 EDT Provider Outr Resulting Lab MICROBIOLOGY - GENERAL ORDERABLES [facility] [address] [place] [address] from Last 3 Months
--- OUTSIDE RECORDS SUMMARY | 2023-10-17 04:03 | XMS_ITS | Encounter Summary ---
Author Organization [facility] [place] [address] Care Team Providers Care Security Incident Handler Name Role Phone Nick Martinez MD Primary Care Provider [phone] Reason for Visit * Reason Onset Date Comments Other 12/29/2020 chart review for Bronchoscopy Encounter Details Date Type Department Care Team (Late st Contact Info) Description 12/29/2020 Notes [place] [phone] Lilly Isabel RN Other (chart review for Bronchoscopy) Social History Tobacco Use Types Packs/Day Years [...] as of this encounter Progress Notes * Lilly Isabel RN - 12/29/2020 4:15 PM EDT I have reviewed pt's chart. Pt not on any blood thinner at this time. Pt currently NOT on home oxygen. OR nurse to contact pt on 12/30/2020 for a more detailed instructions on his Bronchoscopy. Lilly Isabel RN Department of Pulmonary 5C, [facility] / Pager: [phone] documented in this encounter Plan of Treatment Upcoming Encounters Date Type Department Care Team (Late st Contact Info) Description 10/17/2023 8:30 AM EDT Office Visit Hematology/Oncology at [address] [phone] Boy Tovar MD [facility] [place] [address] 10/17/2023 9:00 AM EDT Infusion Hematology Oncology at [address] [phone] documented as of this encounter Visit Diagnoses Not on filedocumented in this encounter Care Teams Security Incident Handler Relationship Specialty Start Date End Date Nick Martinez MD [address] [place] [address] PCP - General Internal Medicine 07/01/18 documented as of this encounter
--- OUTSIDE RECORDS SUMMARY | 2023-10-17 04:03 | XMS_ITS | Encounter Summary ---
Author Organization [facility] [place] [address] Care Team Providers Care Police Reserves Commander Name Role Phone Nick Martinez MD Primary Care Provider [phone] Encounter Details Date Type Department Care Team (Late st Contact Info) Description 12/26/2020 Telephone Hematology/Oncology at [address] [phone] Andrew Bueno Social History Tobacco Use Types Packs/Day Years [...] in a group home (including now)? No 12/22/2020 Sex and Gender Information Value Date Recorded Sex Assigned at Not on file Gender Identity Not on file Sexual Orientation Not on file documented as of this encounter Miscellaneous Notes * Telephone Encounter - Andrew Bueno - 12/26/2020 2:56 PM EDT 2nd call to pt to get MRI safety questions so that I can schedule his MRI. No way to leave a msg atthe home number voicemail is not setup. LM on cell phone to call back to get these answered. documented in this encounter Plan of Treatment Upcoming Encounters Date Type Department Care Team (Late st Contact Info) Description 10/17/2023 8:30 AM EDT Office Visit Hematology/Oncology at [address] [phone] Boy Tovar MD [facility] [address] HEMATOLOGY [place] [address] 10/17/2023 9:00 AM EDT Infusion Hematology Oncology at [address] [phone] documented as of this encounter Visit Diagnoses Not on filedocumented in this encounter Care Teams Police Reserves Commander Relationship Specialty Start Date End Date Nick Martinez MD [address] [place] [address] PCP - General Internal Medicine 07/01/18 documented as of this encounter
--- OUTSIDE RECORDS SUMMARY | 2023-10-17 04:03 | XMS_ITS | Encounter Summary ---
Author Organization [facility] Address [address] [place] [address] Care Team Providers Care Vmware Systems Administrator Name Role Phone Unavailable Primary Care Provider Unavailabl e Encounter Details Date Type Department Care Team (Late st Contact Info) Description 01/18/2021 Lab Requisition [facility] Pathology & Laboratory Medicine - [facility] [address] [place] [address] Outr Resulting Lab, Provider Social History Tobacco [...] Priority Date/Time Associated Diagnosis Comments ZZCOVID-19 TEST [facility] PCR Today 01/17/2021 19:35 EST COVID-19 TESTING Routine 01/17/2021 19:3 5 EST documented in this encounter Results * COVID-19 TEST [facility] PCR (01/17/2021 19:35 EST) Swab 01/17/2021 19:3 5 EST 01/18/2021 15:47 EST Provider Outr Resulting Lab MICROBIOLOGY - GENERAL ORDERABLES [facility] [address] [place] [address] * COVID-19 TESTING (01/17/2021 19:35 EST) COVID-19 rt-PCR Result Negative Negative 01/19/2021 9:44 EST [facility] Comment: This test has [...] the authorization is terminated or revoked sooner. Negative results do not preclude 2019-nCoV infection and should not be used as the sole basis for treatment or other patient management decisions. Negative results must be combined with clinical observations, patient history, and epidemiological information. Testing was performed using the qamar SARS-CoV-2 assay ([employer] on the Qamar 6800 System Performing Lab Qamar 6800 [facility] Lab 01/19/2021 9:44 EST [facility] Swab 01/17/2021 19:3 5 EST 01/18/2021 15:47 EST Provider Outr Resulting Lab MICROBIOLOGY - GENERAL ORDERABLES [facility] [address] [place] [address] documented in this encounter Visit Diagnoses Not on filedocumented in this encounter Additional Health Concerns Infection Onset Date Last Indicated Resolved Time COVID-19 03/26/2021 03/26/2021 04/15/2021 22:1 5 EST documented as of this encounter
--- OUTSIDE RECORDS SUMMARY | 2023-10-17 04:03 | XMS_ITS | Encounter Summary ---
[place] [address] Care Team Providers Care Weblogic Developer Name Role Phone Nick Martinez MD Primary Care Provider [phone] Encounter Details Date Type Department Care Team (Late st Contact Info) Description 12/29/2020 [place] [address] Marjorie Johnston Social History Tobacco [...] AM EDT Office Visit Hematology/Oncology at [address] [phone] Boy Tovar MD [facility] [address] [place] [address] 10/17/2023 9:00 AM EDT Infusion Hematology Oncology at [address] [phone] documented as of this encounter Visit Diagnoses Not on filedocumented in this encounter Care Teams Weblogic Developer Relationship Specialty Start Date End Date Nick Martinez MD [address] [place] [address] PCP - General Internal Medicine 07/01/18 documented as of this encounter
--- OUTSIDE RECORDS SUMMARY | 2023-10-17 04:03 | XMS_ITS | Encounter Summary ---
Author Organization [facility] [place] [address] Care Team Providers Care Crop Puller Name Role Phone Nick Martinez MD Primary Care Provider [phone] Encounter Details Date Type Department Care Team (Late Contact Info) Description 11/28/2020 [place] [address] Lynette Lazar Social History Tobacco Use Types Packs/Day Years [...] 8:30 AM EDT Office Visit Hematology/Oncology at [address] [phone] Boy Tovar MD [facility] DR [place] [address] 10/17/2023 9:00 AM EDT Infusion Hematology Oncology at [address] [phone] documented as of this encounter Visit Diagnoses Not on filedocumented in this encounter Care Teams Crop Puller Relationship Specialty Start Date End Date Nick Martinez MD [address] [place] [address] PCP - General Internal Medicine 07/01/18 documented as of this encounter
--- OUTSIDE RECORDS SUMMARY | 2023-10-17 04:03 | XMS_ITS | Encounter Summary ---
Author Organization [facility] [place] [address] Care Team Providers Care Senior C Software Developer Name Role Phone Nick Martinez MD Primary Care Provider Encounter Details Date Type Department Care Team (Latest Contact Info) Description 12/01/2020 1:50 PM EDT - 12/01/2020 11:59 PM EDT Hospital Encounter XRay at [address] [place] [address] Jarad Parada, [facility] [place] [address] Discharge Disposition: Home Social History Tobacco Use [...] 8:30 AM EDT Office Visit Hematology/Oncology at [address] [phone] Boy Tovar MD [facility] DR HEMATOLOGY [place] [address] 10/17/2023 9:00 AM EDT Infusion Hematology Oncology at [address] [phone] documented as of this encounter Procedures Procedure Name Priority Date/Time Associated Diagnosis Comments XR CHEST ONE VIEW Routine 12/01/2020 1:5 9 PM EDT documented in this encounter Results [...] who have questions please contact the health pediatric critical care nurse that requested your imaging first. ? Narrative [...] patients who have questions please contactthe health pediatric critical care nurse that requested your imaging first. Jarad Parada DO IMG DX ORDERABLES documented in this encounter Visit Diagnoses Not on filedocumented in this encounter Care Teams Senior C Software Developer Relationship Specialty Start Date End Date Nick Martinez MD [address] [place] [address] PCP - General Internal Medicine 07/01/18 documented as of this encounter
--- OUTSIDE RECORDS SUMMARY | 2023-10-17 04:03 | XMS_ITS | Encounter Summary ---
Author Organization [facility] [place] [address] Care Team Providers Care Farmhand Name Role Phone Nick Martinez MD Primary Care Provider Encounter Details Date Type Department Care Team (Late Contact Info) Description 11/06/2020 Ancillary Procedure [place] [address] Nick Martinez MD [address] [place] [address] Social History Tobacco Use Types [...] AM EDT Office Visit Hematology/Oncology at [address] [phone] Boy Tovar MD [facility] DR HEMATOLOGY [place] [address] 10/17/2023 9:00 AM EDT Infusion Hematology Oncology at [address] [phone] documented as of this encounter Procedures Procedure Name Priority Date/Time Associated Diagnosis Comments FILM LIBRARY STORAGE ONLY CT CHEST Routine 11/06/2020 12:00 AM EDT documented in this encounter Results * Film Library- Storage Only CT Chest (11/06/2020 12:00 AM EDT) Narrative [facility] - 11/27/2020 4:05 PM EDT This exam is auto-finalizing. It's purpose is for storage only. Nick Martinez MD IMG FILM LIBRARY ORD ERABLES Performing Organization Address City/State/[facility] Co de Phone Number [place], [place] documented in this encounter Visit Diagnoses Not on filedocumented in this encounter Care Teams Farmhand Relationship Specialty Start Date End Date Nick Martinez MD [address] [place] [address] PCP - General Internal Medicine 07/01/18 documented as of this encounter
--- OUTSIDE RECORDS SUMMARY | 2023-10-17 04:03 | XMS_ITS | Encounter Summary ---
Author Organization [facility] [place] [address] Care Team Providers Care Tank Processor Name Role Phone Nick Martinez MD Primary Care Provider Encounter Details Date Type Department Care Team (Latest Contact Info) Description 12/01/2020 11:55 AM EDT - 12/01/2020 1:49 PM EDT Hospital Encounter XRay at [address] [place] [address] Jarad Parada, [facility] [place] [address] Discharge Disposition: Home Social History Tobacco Use [...] AM EDT Office Visit Hematology/Oncology at [address] [phone] Boy Tovar MD [facility] DR HEMATOLOGY [place] [address] 10/17/2023 9:00 AM EDT Infusion Hematology Oncology at [address] [phone] documented as of this encounter Procedures Procedure Name Priority Date/Time Associated Diagnosis Comments XR CHEST ONE VIEW Routine 12/01/2020 12: 07 PM EDT documented in this encounter Results * XR Chest One View (12/01/2020 12:07 [...] who have questions please contact the health ocular care aide that requested your imaging first. ? Narrative [...] patients who have questions please contactthe health ocular care aide that requested your imaging first. Jarad Parada DO IMG DX ORDERABLES documented in this encounter Visit Diagnoses Not on filedocumented in this encounter Care Teams Tank Processor Relationship Specialty Start Date End Date Nick Martinez MD [address] [place] [address] PCP - General Internal Medicine 07/01/18 documented as of this encounter
[2023-10-17 07:30] LABS: Abs Immature Grans 0.14 10^3/uL (0.0-0.06); Absolute Basophil Count 0.02 10^3/uL (0.0-0.2); Absolute Lymphocyte Count 0.65 10^3/uL (1.2-3.4); Absolute Monocyte Count 0.62 10^3/uL (0.1-0.8); Absolute Neutrophil Count 1.99 10^3/uL (1.2-6.7); Basophils % 0.6 %; HCT 33.9 % (40.0-50.0); HGB 11.2 g/dL (13.5-17.5); Immature Grans % 4.1 %; MCH 31.4 pg (27.0-33.0); MCV 95 fL (80-95); MPV 8.4 fL (8.0-11.0); Monocytes % 18.1 %; Neutrophils % 58.2 %; Platelet Count 183 10^3/uL (130-400); RBC 3.57 10^6/uL (4.36-5.78); RDW-SD 57.3 fL; WBC 3.42 10^3/uL (4.4-10.8)
[2023-10-17 08:02] LABS: ALT 41 U/L (16-63); AST 34 U/L (15-37); Albumin 3.8 g/dL (3.4-5.0); Alkaline Phosphatase 88 U/L (46-116); Anion Gap 6.8 mmol/L (3-11); BUN 10 mg/dL (7-18); Bilirubin, Total 0.45 mg/dL (0.2-1.0); CO2 31.2 mmol/L (21.0-32.0); CREATININE 1.3 mg/dL (0.70-1.30); Calcium 9.3 mg/dL (8.5-10.1); Chloride 104 mmol/L (98-107); Estimated GFR 60.96 (mL/min/1.73m2); Glucose 96 mg/dL (74-106); Magnesium 1.6 mg/dL (1.8-2.4); Potassium 3.3 mmol/L (3.5-5.1); Sodium 142 mmol/L (136-145); TSH 5.76 uIU/Ml (0.36-3.74); Total Protein 7.7 g/dL (6.4-8.2)
== END 2023-10-17 03:40 | disposition home or self-care (01) ==
LOC: LBO 03:39
PROVIDERS: PCP Nurse Practitioner Family; Visit Provider Internal Medicine Medical Oncology
DX: C34.11 Malignant neoplasm of upper lobe, right bronchus or lung (principal); C79.31 Secondary malignant neoplasm of brain; Z79.899 Other long term (current) drug therapy
CPT/HCPCS: 36415; 80053; 83735; 84439; 84443; 85025

== ENCOUNTER 2023-10-27 14:53 | Emergency (ER) | payer BC, SELFPAY ==
[2023-10-27 14:55] VITALS: BP 114/82; PULSE 112; RESP 16; TEMP 36.6; O2SAT 97
--- NOTE | 2023-10-27 15:00 | RT.EKG_ITS ---
APPROVED REPORT Exam: Resting ECG Reason for Exam: dyspnea Patient Location: E HR:109 bpm ECG Measurements Heart Rate 109 AXIS [place] 178 P 59 QRSd 87 QRS -65 QT 326 T 57 QTc 439 Conclusion Sinus tachycardia...rate> 99 LAD, consider left anterior fascicular block...axis(240,-40), S>R II III aVF
--- OUTSIDE RECORDS SUMMARY | 2023-10-27 15:18 | XMS_ITS | Encounter Summary ---
Author Organization [place] [id number] Care Team Providers Care Foreign Food Specialty Cook Name Role Phone Nick Martinez MD Primary [...] Base to Mid-thigh Boy Tovar MD [facility] DR [place] [address] [place] [address] Referral ID Status Reason Start Date Expiration Date V isits Requested Visits Authorized [id number] Closed Specialty Service Requested 09/09/2023 11/07/2023 1 1 Reason for Visit * Diagnostic Test (Routine) - Closed Specialty Diagnoses / Procedures Referred By Mariana workman Referred To Contact Radiology Diagnoses Primary malignant 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 of right adrenal gland Procedures NM PET CT Skull Base to Mid-thigh Boy Tovar MD [facility] DR [place] [address] [facility] [place] [address] Referral ID Status Reason Start Date Expiration Date V isits Requested Visits Authorized [id number] Closed Specialty Service Requested 09/09/2023 11/07/2023 1 1 Encounter Details Date Type Department Care Team (Late st Contact Info) Description 10/10/2023 8:42 AM EDT Hospital Encounter [place] [address] Boy Tovar MD [facility] DR HEMATOLOGY AND ONCOLOGY [place] [id number] Primary malignant neoplasm of right upper lobe [...] pur e alcohol) on occassion only [facility] Utilities Answer Date Recorded In the past 12 months has th e electric, gas, oil, or water [employer] threatened to shut off services in your [...] Sig Dispensed Refills Start Date End Date levETIRAcetam (Keppra) 500 mg tablet TAKE ONE TABLET BY MOUTH TWICE A DAY 60 tablet 3 09/12/2023 loratadine (Claritin) 10 mg Tablet Take 10 mg by mouth daily. prochlorperazine (Compazine) 10 mg tabletIndications:Primar y malignant neoplasm of right upper lobe of lung Take 1 tablet by mouth every 6 hours as needed for Nausea. 30 tablet 3 07/25/2023 folic acid (Vitamin B9) 1 mg tabletIndications:Primar y malignant neoplasm of right upper lobe of lung Take 1 tablet by mouth daily. 90 tablet 3 07/25/2023 LORazepam (Ativan) 1 mg tablet Take 1 tablet by mouth every 6 hours as needed for Anxiety. 15 tablet 05/25/2023 omeprazole (PriLOSEC) [address] capsule Take 20 mg by mouth daily. 02/22/2023 Advair HFA [...] every 6 hours as needed for Pain. magnesium oxide (Mag-Ox) 400 mg (241.3 mg magnesium) TabletIndications:Hypoma gnesemia Take 1 tablet by mouth daily. 30 tablet 12 09/26/2023 10/17/2023 documented as of this encounter Plan of Treatment Upcoming Encounters Date Type Department Care Team (Francisco rico Contact Info) Description 11/10/2023 8:30 AM EDT Infusion Hematology Oncology at [address] [phone] 11/30/2023 8:30 AM EDT Office Visit Hematology/Oncology at [address] [phone] Bisi Hollis APRN [address] [place] [address] DR HEMATOLOGY AND ONCOLOGY [place], [place] [id number] 11/30/2023 9:00 AM EDT Infusion Hematology Oncology at [address] [phone] 12/07/2023 11:15 AM EDT Office Visit [place] [address] Daisy Lloyd PA [facility] DR [place] [address] documented as of this encounter Procedures Procedure Name Priority Date/Time Associated Diagnosis Comments NM PET CT SKULL BASE TO MID-THIGH ([facility]) Routine 10/10/2023 10:29 AM EDT 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 Secondary malignant neoplasm of right adrenal gland documented in this encounter Results * NM PET CT Skull Base to Mid-thigh (10/10/2023 10:29 AM EDT) WORKSTATION ID [id number] RAD Anatomical Region Laterality Modality Positron Emissio [...] who have questions please contact the health interior plant caretaker that requested your imaging first. ? Electronically signed by: Alfredo Jean-Baptiste MD, [facility] ([phone]), at 10/12/2023 11:15 AM Narrative 10/12/2023 11:15 AM EDT EXAMINATION: NM PET CT STANDARD SKULL BASE TO MID-THIGH CLINICAL HISTORY: History of metastatic lung cancer with abdominal pelvic adenopathy status post LUNG SPLITTER currently on chemotherapy with palliative intent. C34.11, Malignant neoplasm of upper lobe, right bronchus or lung - C79.31, Secondary malignant neoplasm of brain - C79.71, Secondary malignant neoplasm of right adrenal gland TECHNIQUE: Following IV injection of 71-gnfwyu-6-deoxyglucose (FDG) a standard uptake of approximately 60 [...] lung cancer with abdominalpelvic adenopathy status post LUNG SPLITTER currently on chemotherapy with palliativeintent. C34.11, Malignant neoplasm of upper lobe, right bronchus or lung -C79.31, Secondary malignant neoplasm of brain - C79.71, Secondary malignantneoplasm of right adrenal gland TECHNIQUE: Following IV injection of 19-aevkqm-0-deoxyglucose (FDG) astandard uptake of approximately 60 minutes, [...] patients who have questions please contactthe health interior plant caretaker that requested your imaging first. Electronically signed by: Alfredo Jean-Baptiste MD, [facility]([phone]), at 10/12/2023 11:15 AM Boy Tovar MD [...] mCi documented in this encounter Care Teams Foreign Food Specialty Cook Relationship Specialty Start Date End Date Nick Martinez MD [address] [place] [address] PCP - General Internal Medicine 07/01/18 documented as of this encounter
--- OUTSIDE RECORDS SUMMARY | 2023-10-27 15:18 | XMS_ITS | Encounter Summary ---
Author Organization [facility] [place] [address] Care Team Providers Care Inbound Call Center Representative Name Role Phone Nick Martinez MD Primary Care Provider [phone] Encounter Details Date Type Department Care Team (Late st Contact Info) Description 10/03/2023 Telephone Hematology/Oncology at [address] [phone] Laly Larose, RN Social History Tobacco Use Types Packs/Day Years Used Date Smoking Tobacco: Former Smokeless Tobacco: Current Chew Comments:1 can per day. Plan s to quit today 02/04/21 Alcohol Use Standard Drinks/Week Comments Yes 0 (1 standard drink = 0.6 oz pur e alcohol) on occassion only [facility] Utilities Answer Date Recorded In the past 12 months has [employer], gas, oil, or water [employer] threatened to shut off services in your [...] Chow Sent: 10/03/2023 9:57 AM EDT To: [facility] Hem Onc Nurse Raffy's called in to let Bisi know that raffy had to stop taking the magnesium oxide (Mag-Ox) 400 mg due to making him throw up ever time he took it, he has felt better since stopping it.Best call back number [phone] disaster recovery analyst Follow-up Note Diagnosis: NSCLC Treatment: C4D1 Carbo/Pem/Pem [...] I will send high-Mag food list via [email or web address] message. Recommendations/Plan: Hold Mag-Ox Continue to monitor Mag levels with labs, replete IV Mag, if needed Send high Mag food lists via [email or web address] message documented in this encounter Plan of Treatment Upcoming Encounters Date Type Department Care Team (Late st Contact Info) Description 11/10/2023 8:30 AM EDT Infusion Hematology Oncology at [address] [phone] 11/30/2023 8:30 AM EDT Office Visit Hematology/Oncology at [address] [phone] Bisi Hollis APRN [address] [place] [address] DR HEMATOLOGY AND ONCOLOGY [place], [place] [phone] 11/30/2023 9:00 AM EDT Infusion Hematology Oncology at [address] [phone] 12/07/2023 11:15 AM EDT Office Visit [place] [address] Daisy Lloyd V., [facility] DR [place] [address] documented as of this encounter Visit Diagnoses Not on filedocumented in this encounter Care Teams Inbound Call Center Representative Relationship Specialty Start Date End Date Nick Martinez MD [address] [place] [address] PCP - General Internal Medicine 07/01/18 documented as of this encounter
--- OUTSIDE RECORDS SUMMARY | 2023-10-27 15:18 | XMS_ITS ---
Author Organization [place] [address] Care Team Providers Care Modern Greek Studies Professor Name Role Phone Nick Martinez MD Primary Care Provider Active Problems Problem Noted Date Diagnosed Date Secondary malignant neoplasm of right adrenal gl and 07/04/2023 Brain metastasis 04/29/2023 Primary malignant neoplasm of right upper lobe o f lung 01/08/2021 Cancer Staging:Clinical stage from 02/06/2021:Stage IIIB(cT1c, cN3, cM0) - Signed by Boy Tovar MD on 02/06/2021 Current On[facility]SMALL CE[facility]G CANCER - CARBOplatin / PEMEtrexed / PEMBROLIZUMAB* Plan Start Date:07/25/2023 Plan Provider:Ella Diego APRN Linked Problems Secondary malignant neoplasm of brainPrimary malignant neoplasm of right upper lobe of lung Treatment Medications Current Day (Day 1 , Cycle 6 - Planned for 11/07/2023) Next Day (Day 1, Cycle 7 - Planned for 11/28/2023) CARBOplatin (Paraplatin) in 150 mL infusionpembrolizumab (Keytruda) in sodium chloride 0.9% 100 mL infusionPEMEtrexed (Alimta) in sodium chloride 0.9% 100 mL infusion pembrolizumab (Keytruda) 200 mg in sodium chloride 0.9% 108 mL infusionPEMEtrexed disodium (Alimta) 1,200 mg in sodium chloride 0.9% 148 mL infusion pembrolizumab (Keytruda) 200 mg in sodium chloride 0.9% 108 mL infusionPEMEtrexed disodium (Alimta) 1,200 mg in sodium chloride 0.9% 148 mL infusion Past Plans ADULT TREATMENT Plan Name Start Date Discontinue Date Treatment Medications Discontinue Reason Plan Provider Cycles [facility] IMMUNOTHERAPY SHARED PLAN - DURVALUMAB (1,500 MG) 04/20/19 22 08/17/2022 durvalumab (Imfinzi) infusion Therapy Complete Boy Tovar MD 12 of 12 cycles started [facility] ONC NONSMALL CELL LUNG CANCER - CARBOplatin / PACLitaxel WEEKLY / XRT 021 04/13/2021 CARBOplatin (Paraplatin) in 150 mL infusionPACLitaxeL (Taxol) in Non-PVC sodium chloride 0.9% 250 mL infusion Therapy Complete Boy Tovar MD 1 of 1 cycle started Radiation Treatments * No radiation treatments are documented for this patient in [facility]. Treatments may have been administered in another system.
--- OUTSIDE RECORDS SUMMARY | 2023-10-27 15:18 | XMS_ITS | Encounter Summary ---
Author Organization [facility] [place] [address] Care Team Providers Care Unemployment Insurance Hearing Officer Name Role Phone Nick Martinez MD Primary Care Provider [phone] Encounter Details Date Type Department Care Team (Late st Contact Info) Description 09/26/2023 Notes Only Hematology/Oncology at [address] [phone] Azalea Watkins, [facility] GR[facility] OFFICE OF CARE MANAGEMENT Social History Tobacco Use Types Packs/Day Years Used Date Smoking Tobacco: Former Smokeless Tobacco: Current Chew Comments:1 can per day. Plan s to quit today 02/04/21 Alcohol Use Standard Drinks/Week Comments Yes 0 (1 standard drink = 0.6 oz pur e alcohol) on occassion only [facility] Utilities Answer Date Recorded In the past 12 months has [employer] electric, gas, oil, or water company threatened [...] in a nursing home (including now)? No 04/29/2023 Sex and [...] 8:30 AM EDT Infusion Hematology Oncology at [address] [phone] 11/30/2023 8:30 AM EDT Office Visit Hematology/Oncology at [address] [phone] Bisi Hollis APRN [address] [place] [address] [place] [address] 11/30/2023 9:00 AM EDT Infusion Hematology Oncology at [address] [phone] 12/07/2023 11:15 AM EDT Office Visit [place] [address] Daisy Lloyd PA [facility] DR [place]AT[place]Y [place] [address] documented as of this encounter Visit Diagnoses Not on filedocumented in this encounter Care Teams Unemployment Insurance Hearing Officer Relationship Specialty Start Date End Date Nick Martinez MD [address] [place] [address] PCP - General Internal Medicine 07/01/18 documented as of this encounter
--- OUTSIDE RECORDS SUMMARY | 2023-10-27 15:18 | XMS_ITS | Encounter Summary ---
Author Organization [facility] [place] [address] Care Team Providers Care Home Health Clinical Liaison Name Role Phone Nick Martinez MD Primary Care Provider [phone] Encounter Details Date Type Department Care Team (Latest Contact Info) Description 10/10/2023 Travel Social History Tobacco Use Types Packs/Day Years Used Date Smoking Tobacco: Former Smokeless Tobacco: Current Chew Comments:1 can per day. Plan s to quit today 02/04/21 Alcohol Use Standard Drinks/Week Comments Yes 0 (1 standard drink = 0.6 oz pur e alcohol) on occassion only [facility] Utilities Answer Date Recorded In the [...] 8:30 AM EDT Infusion Hematology Oncology at [address] [phone] 11/30/2023 8:30 AM EDT Office Visit Hematology/Oncology at [address] [phone] Bisi Hollis STAIN DIPPER [address] [place] [address] DR [place] [address] 11/30/2023 9:00 AM EDT Infusion Hematology Oncology at [address] [phone] 12/07/2023 11:15 AM EDT Office Visit [place] [address] Daisy Lloyd PA [facility] DR [place] [address] documented as of this encounter Visit Diagnoses Not on filedocumented in this encounter Care Teams Home Health Clinical Liaison Relationship Specialty Start Date End Date Nick Martinez MD [address] [place] [address] PCP - General Internal Medicine 07/01/18 documented as of this encounter
--- OUTSIDE RECORDS SUMMARY | 2023-10-27 15:18 | XMS_ITS | Encounter Summary ---
Author Organization [facility]ly [facility] [place] [address] Care Team Providers Care Surgical Garment Inspector Name Role Phone Nick Martinez MD Primary Care Provider [phone] Encounter Details Date Type Department Care Team [...] 8:30 AM EDT Infusion Hematology Oncology at [address] [phone] 11/30/2023 8:30 AM EDT Office Visit Hematology/Oncology at [address] [phone] Bisi Hollis RENAL CASE MANAGER [address] [place] [address] DR [place] [address] 11/30/2023 9:00 AM EDT Infusion Hematology Oncology at [address] [phone] 12/07/2023 11:15 AM EDT Office [place] [address] Daisy Lloyd PA [facility] DR HEMATOLOGY [place] [address] documented as of this encounter Visit Diagnoses Not on filedocumented in this encounter Care Teams Surgical Garment Inspector Relationship Specialty Start Date End Date Nick Martinez MD [address] [place] [address] PCP - General Internal Medicine 07/01/18 documented as of this encounter
--- OUTSIDE RECORDS SUMMARY | 2023-10-27 15:18 | XMS_ITS | Encounter Summary ---
Author Organization [facility] [place] [address] Care Team Providers Care Real Estate Rental Agent Name Role Phone Nick Martinez MD Primary Care Provider [phone] Reason for Visit * Reason Comments Chemotherapy [id number]/Pemetrex ed + IV mag * Treatment/Therapy Plan Authorization (Routine) - Authorized [...] HCL, 25MCG, INJECTION (ALOXI) Boy Tovar MD [address] [place] [address] [place] [address] Boy Tovar MD [address] [place] [address] DR [place] [address] Referral ID Status Reason Start Date Expiration Date V isits Requested Visits Authorized [id number] Authorized 06/27/2023 11/27/2023 99 99 Encounter Details Date Type Department Care Team (Late st Contact Info) Description 10/17/2023 9:00 AM EDT Infusion Hematology Oncology at [address] [phone] Secondary malignant neoplasm of brain; Primary malignant neoplasm of right upper lobe of lung Social History Tobacco Use Types Packs/Day Years Used Date Smoking Tobacco: Former Smokeless Tobacco: Current Chew Comments:1 can per day. Plan s to quit today 02/04/21 Alcohol Use Standard Drinks/Week Comments Yes 0 (1 standard drink = 0.6 oz pur e alcohol) on occassion only [facility] Utilities Answer Date Recorded In [...] of this encounter Progress Notes * Tabatha Parker RN - 10/17/2023 9:00 AM EDT INFUSION THERAPY ADMINISTRATION NOTES DIAGNOSIS: NSCLC CYCLE #: Cycle 5, Day 1 - Pembrolizumab, Pemetrexed, + IV mag REASON FOR VISIT: To receive scheduled chemotherapy. SUBJECTIVE: Raffy offers no complaints. OBJECTIVE: Seen by provider. Ready to treat. Receiving IV mag and PO KCL supplement during infusion. LAB DATA: completed today at [facility]; adequate for treatment. ANC 1.99; Plt 183; Mg 1.6; K+3.3 IV ACCESS: PIV Pre administration: Chemotherapy orders independently verified for drug name, route, and dosage per patient's height, weight and BSA by Tabatha Parker RN and Staff Pharmacist(s). REACTIONS (DESCRIPTION, TIME, INTERVENTION AND EFFECTIVENESS) none ASSESSMENT: Raffy was awake, alert and tolerated treatment well. PIV discontinued prior to dismissal. PLAN: Return to clinic in three weeks. documented in this encounter Plan of Treatment Upcoming Encounters Date Type Department Care Team (Late st Contact Info) Description 11/10/2023 8:30 AM EDT Infusion Hematology Oncology at [address] [phone] 11/30/2023 8:30 AM EDT Office Visit Hematology/Oncology at [address] [phone] Bisi Hollis APRN [address] [place] [address] DR [place] [address] 11/30/2023 9:00 AM EDT Infusion Hematology Oncology at [address] [phone] 12/07/2023 11:15 AM EDT Office [place] [address] Daisy Lloyd PA [facility] DR [place] [address] (work) documented as of this encounter Visit Diagnoses Diagnosis 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 Malignant neoplasm of upper lobe, bronchus or lung documented in this encounter Administered Medications Inactive Administered Medications - up to 3 most recent administrations Medication Order MAR Action Action Date Dose Rate Site dexAMETHasone (Decadron) (10 mg/mL) injection 5 mg 5 mg, Intravenous, ONCE, 1 dose, On Tue10/17/23 at 0945 Given 10/17/2023 9:38 AM EDT 5 mg magnesium sulfate 1 g in dextrose 5% 100 mL infusion 1 g, Intravenous, ONCE, 1 dose, On Tue10/17/23 at 0945, Administer over 60 Minutes Restarted 10/17/2023 10:55 AM EDT 100 mL/hr New Bag 10/17/2023 9:40 AM EDT 1 g 100 mL/hr ondansetron (Zofran) tablet 8 mg 8 mg, Oral, ONCE, 1 dose, On Tue10/17/23 at 0915, Administer prior to chemotherapy, Routine Given 10/17/2023 9:41 AM EDT 8 mg pembrolizumab (Keytruda) 200 mg in sodium chloride 0.9% 108 mL infusion 200 mg, Intravenous, ONCE, 1 dose, On Tue10/17/23 at 1015, Administer over 30 Minutes, Flush Line with NS after each dose, This agent is restricted to outpatient use. Is this drug being given as an outpatient? Yes New Bag 10/17/2023 10:23 AM EDT 200 mg 216 mL/hr PEMEtrexed disodium (Alimta) 1,200 mg in sodium chloride 0.9% 148 mL infusion 1,200 mg (rounded from 1,250 mg = 500 mg/m2/dose ? 2.5 m2 Treatment Plan BSA from Recorded weight), Intravenous, ONCE, 1 dose, On Tue10/17/23 at 1015, Administer over 10 Minutes New Bag 10/17/2023 11:01 AM EDT 1,200 m g 888 mL/hr potassium chloride ER (Klor-Con M) crystal tablet 20 mEq 20 mEq, Oral, ONCE, 1 dose, On Tue10/17/23 at 0945, potassium chloride ER particle/crystal tablets (Klor-Con M) may be broken in half and each half swallowed separately. Tablets can be dissolved in ~4 ounces of water; allow ~2 minutes to dissolve, stir well and drink immediately. Do not crush, chew, or suck on tablet., Routine Given 10/17/2023 9:41 AM EDT 20 mEq documented in this encounter Care Teams Real Estate Rental Agent Relationship Specialty Start Date End Date Nick Martinez MD [address] [place] [address] PCP - General Internal Medicine 07/01/18 documented as of this encounter
--- OUTSIDE RECORDS SUMMARY | 2023-10-27 15:18 | XMS_ITS | Encounter Summary ---
Author Organization [facility] [place] [address] Care Team Providers Care First Press Operator Name Role Phone Nick Martinez MD Primary Care Provider [phone] Encounter Details Date Type Department Care Team (Latest Contact Info) Description 10/17/2023 Travel Social History Tobacco Use Types Packs/Day Years Used Date Smoking Tobacco: Former Smokeless Tobacco: Current Chew Comments:1 can per day. Plan s to quit today 02/04/21 Alcohol Use Standard Drinks/Week Comments Yes 0 (1 standard drink = 0.6 oz pur e alcohol) on occassion only [facility] Utilities Answer Date Recorded In the [...] 8:30 AM EDT Infusion Hematology Oncology at [address] [phone] 11/30/2023 8:30 AM EDT Office Visit Hematology/Oncology at [address] [phone] Bisi Hollis APPARATUS OPERATOR [address] [place] [address] [place] [address] 11/30/2023 9:00 AM EDT Infusion Hematology Oncology at [address] [phone] 12/07/2023 11:15 AM EDT Office [place] [address] Daisy Lloyd PA [facility] DR HEMATOLOGY [place] [address] documented as of this encounter Visit Diagnoses Not on filedocumented in this encounter Care Teams First Press Operator Relationship Specialty Start Date End Date Nick Martinez MD [address] [place] [address] PCP - General Internal Medicine 07/01/18 documented as of this encounter
--- OUTSIDE RECORDS SUMMARY | 2023-10-27 15:18 | XMS_ITS | Encounter Summary ---
Author Organization [facility] [place] [address] Care Team Providers Care Multiple Punch Press Operator Name Role Phone Nick Martinez MD Primary Care Provider [phone] Encounter Details Date Type Department Care Team (Late st Contact Info) Description 10/17/2023 8:30 AM EDT Office Visit Hematology/Oncology at [address] [phone] Boy Tovar MD [facility] DR HEMATOLOGY [place] [address] Primary malignant neoplasm of right upper lobe [...] occassion only [facility] Utilities Answer Date Recorded In the past 12 months has [employer], gas, oil, or water company threatened to [...] Sign Reading Time Taken Comments Blood Pressure 139/75 10/17/2023 8:16 AM EDT Pulse 94 10/17/2023 8:16 AM EDT Temperature 36.2 ??C (97.1 ??F) 10/17/2023 8:16 AM ED T Respiratory Rate 20 10/17/2023 8:16 AM EDT Oxygen Saturation 99% 10/17/2023 8:16 AM EDT Inhaled Oxygen Concentration - - Weight 122.4 kg (269 lb 12.8 oz) 10/17/2023 8:16 AM EDT Height 180 cm (5' 10.87) 10/17/2023 8:16 AM EDT Body Mass Index 37.77 10/17/2023 8:16 AM EDT documented in this encounter Progress Notes * Boy Tovar MD - 10/17/2023 8:30 AM EDT Images from the original note were not included. Thoracic Oncology [facility] [place] [address] [phone] Raffy Latif is being seen for cT1cN3 [...] HAMMAD nodule is small and we'll follow. 10.10.23 PET scan personally reviewed with resolution of the adrenal lesion and adenopathy. - Labs and toxicities assessed and acceptable for ongoing treatment. 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 Therefore the plan was to proceed with stereotactic radiation. Completed radiation on 05/25/2023. - Asymptomatic, remains on Keppra - Most recent MRI done 08/12/23, shows response. - Plan for rad onc for followup in November- not scheduled # FEN- can't tolerated the oral supplementation - Hypomag- Will replete IV at time of infusion #Muscle cramping/spacticity - Resolved # Tobacco use - Chewing tobacco. Not currently interested in chantix or nicotine replacement at this point. Boy Tovar MD, MS 10/17/2023 Medical Oncology & Hematology [facility] CC: MD Mejia Barnhart MD HPI/Interval History/Subjective: Last seen 09/26/2023 Having some issues with watery eyes. Dealing with it ok. Generally doing well. Some degree fatigue No nausea A little orthostatic diziness. Couldn't tolerate the oral magneisum No seizures. Remains on Keppra Muscle cramping has resolved. BLE edema has resolved. Social History/Support Network: Home situation: Lives with in [facility] with Velvet. 35 years. 3 children and plan to adopt another one through foster care. 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 38 Pk [...] brain was not included in the imaged [id number] on the current study. 05.25.[address] c/a/p 07.25.23 C1 carboplatin/pemetrexed/pembrolizumab 08.17.23 C2 carbo/pem/pem 7.03.30 C3 Carbo/pem/pem 09.26.23 C4 carbo/pem/pem 8.07.28 Restaging PET with response to treatment 08/17/2023 11:13 AM 09/05/2023 10:44 AM 09/05/2023 11:20 AM 09/05/2023 11:51 AM 09/26/2023 9:39 AM 09/26/2023 10:15 AM 09/26/2023 10:30 AM ONCBCN ONCOLOGY (AMB) Day, Cycle Day 1, Cycle 3 Day 1, Cycle 4 CARBOplatin (Paraplatin) IV 631 mg 631 mg 666 mg pembrolizumab 25 mg/mL (Keytruda) IV 200 [...] Exam: Wt Readings from Last 3 Encounters: 10/17/23 122.4 kg (269 lb 12.8 oz) 09/26/23 124 kg (273 lb 6.4 oz) 09/05/23 124 kg (273 lb 6.4 oz) Temp Readings from Last 3 Encounters: 10/17/23 36.2 ??C (97.1 ??F) (Temporal) 09/26/23 36.2 ??C (97.2 ??F) (Temporal) 09/05/23 36.5 ??C (97.7 ??F) (Temporal) BP Readings from Last 3 Encounters: 10/17/23 139/75 09/26/23 140/73 09/05/23 97/79 Pulse Readings from Last 3 Encounters: 10/17/23 94 09/26/23 (!) 103 09/05/23 96 Body surface area is 2.47 meters squared. Wt Readings from Last 3 Encounters: 10/17/23 122.4 kg (269 lb 12.8 oz) 09/26/23 124 kg (273 lb 6.4 oz) 09/05/23 124 kg (273 lb 6.4 oz) KPS Score ECOG Grade [...] totally confined to bed or chair BP 139/75 (Patient Position: Sitting) Pulse 94 Temp 36.2 ??C (97.1 ??F) (Temporal) Resp 20 Ht 180 cm (5' 10.87) Wt 122.4 kg (269 lb 12.8 oz) SpO2 99% BMI 37.77 kg/m?? Physical Exam Constitutional: General: Not in acute distress. Appearance: Normal appearance. Normal weight. Not ill-appearing, toxic-appearing or diaphoretic. HENT: Head: Atraumatic. No oral thrush seen Eyes: General: No scleral icterus. Right eye: No discharge. Left eye: No discharge. Conjunctiva/sclera: Conjunctivae normal. Pulmonary: Effort: Pulmonary effort is normal. Review of Laboratory Data: 8.12.24 White blood cell count 3.42 hemoglobin 11.2 platelet count 183,000 absolute neutrophil count 1.99 Sodium 142 potassium slightly low at 3.3 chloride 104 BUN 10 creatinine 1.3 from 1.2 glucose 96 calcium 9.3 magnesium slightly low at 1.6 improved from 1.5 total bilirubin 0.45 AST 34 ALT 41 alk phos88 albumin 3.8 TSH slightly elevated at 5.76 from 4.73 but free T4 remains within normal limits at 1.00 7.22.24 WBC 3.27, H/H 11.1/32.4, plt 214,000, ANC 2190, Na 143, K 3.5, Cl 104, CO2 30.4, BUN 10, Creat 1.2,glucose 116, Ca 9.0, Mag 1.5, t bili 0.4, AST 22, ALT 36, alk phos 74, t protein 7.5, albumin 3.5, TSH 4.73, Free T4 0.95 7.1.24 White blood cell count 3.61 hemoglobin 11.9 [...] Review of Imaging Data: 09.01.23 CT CAP 6.7.24 MRI Brain 02.04.23 CT Chest IMPRESSION 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 Stable thickening of the right adrenal gland. No new findings. 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 No new lung nodule or thoracic lymphadenopathy. Increased thickening of the right adrenal gland is nonspecific, reassessment on follow-up imaging is recommended. 5 CT Chest 1. Stable posttreatment changes centered [...] 8:30 AM EDT Infusion Hematology Oncology at [address] [phone] 11/30/2023 8:30 AM EDT Office Visit Hematology/Oncology at [address] [phone] Bisi Hollis SALESPERSON FLORIST SUPPLIES [address] [place] [address] DR HEMATOLOGY AND ONCOLOGY [place], [place] [address] 11/30/2023 9:00 AM EDT Infusion Hematology Oncology at [address] [phone] 12/07/2023 11:15 AM EDT Office Visit [place] [address] Daisy Lloyd PA 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
--- OUTSIDE RECORDS SUMMARY | 2023-10-27 15:18 | XMS_ITS | Clinical Summary ---
Author Organization [facility] [place] [address] Care Team Providers Care Clinical Nurse Occupational Medicine Name Role Phone Nick Martinez MD Primary Care Provider Allergies Active Allergy Reactions Criticality Noted Date [...] Take 20 mg by mouth daily. 02/22/2023 Active LORazepam (Ativan) 1 mg tablet Take 1 tablet by mouth every 6 hours as needed for Anxiety. 15 tablet 05/25/2023 Active prochlorperazine (Compazine) 10 mg tabletIndications:Sienna wei malignant neoplasm of right upper lobe of lung Take 1 tablet by mouth every 6 hours as needed for Nausea. 30 tablet 3 07/25/2023 Active folic acid (Vitamin B9) 1 mg tabletIndications:Sienna wei malignant neoplasm of right upper lobe of lung Take 1 tablet by mouth daily. 90 tablet 3 07/25/2023 Active loratadine (Claritin) 10 mg Tablet Take 10 mg by mouth daily. Active levETIRAcetam (Keppra) 500 mg tablet TAKE ONE TABLET BY MOUTH TWICE A DAY 60 tablet 3 09/12/2023 Active Active Problems Problem Noted Date Diagnosed Date Secondary malignant neoplasm of right adrenal gl and 07/04/2023 Brain metastasis 04/29/2023 Primary malignant neoplasm of right upper lobe o f lung 01/08/2021 Cancer Staging:Clinical stage from 02/06/2021:Stage IIIB(cT1c, cN3, cM0) - Signed by Boy Tovar MD on 02/06/2021 Encounters Date Type Department Care Team Description 10/17/2023 9:00 AM EDT Infusion Hematology Oncology at [address] [address] Secondary malignant neoplasm of brain; Primary malignant neoplasm of right upper lobe of lung 10/17/2023 8:30 AM EDT Office Visit Hematology/Oncolog y at [address] [address] Boy Tovar MD Primary malignant neoplasm of right upper lobe of lung; Brain metastasis; Secondary malignant neoplasm of right adrenal gland 10/17/2023 Travel 10/10/2023 8:43 AM EDT - 10/10/2023 11:59 PM EDT Hospital En[place] [address] Boy Tovar MD Discharge Disposition: Home 10/10/2023 8:42 AM EDT Hospital En[place] [address] Boy Tovar MD Primary malignant neoplasm of right upper lobe of lung; Brain metastasis; Secondary malignant neoplasm of right adrenal gland Discharge Disposition: Home 10/10/2023 Travel 10/03/2023 Telephone Hematology/Oncolog y at [address] [address] Laly Larose RN 09/26/2023 9:00 AM EDT Infusion Hematology Oncology at [address] [address] Secondary malignant neoplasm of brain; Primary malignant neoplasm of right upper lobe of lung; Hypomagnesemia 09/26/2023 8:30 AM EDT Office Visit Hematology/Oncolog y at [address] [address] Bisi Hollis APRN Primary malignant neoplasm of right upper lobe of lung; Secondary malignant neoplasm of brain; Secondary malignant neoplasm of right adrenal gland; Hypomagnesemia 09/26/2023 Notes Only Hematology/Oncolog y at [address] [address] Azalea Watkins, MILITARY NURSE 09/26/2023 Travel 09/05/2023 9:30 AM EDT Infusion Hematology Oncology at [address] [address] Secondary malignant neoplasm of brain; Primary malignant neoplasm of right upper lobe of lung 09/05/2023 9:00 AM EDT Office Visit Hematology/Oncolog y at [address] [address] Boy Tovar MD LaRoza, Stephanie A, APRN Primary malignant neoplasm of right upper lobe of lung; Brain metastasis; Secondary malignant neoplasm of right adrenal gland 09/05/2023 Notes Only Hematology/Oncolog y at [address] [address] Azalea Watkins, MILITARY NURSE 09/05/2023 Refill [place] [address] Rosalie Samano MD 09/04/2023 Travel 09/01/2023 9:20 PM EDT Ancillary Procedure [place] [address] Bisi Hollis APRN 08/31/2023 Telephone Hematology/Oncolog y at [address] [address] Mannie Taylor RN Follow-up 08/18/2023 10:00 AM EDT Office [place] [address] Carlos Marie MD Secondary malignant neoplasm of brain 08/18/2023 Telephone [place]ematology [place] [address] Manjula Liu Prior Authorization 08/18/2023 Travel 08/17/2023 9:00 AM EDT Infusion Hematology Oncology at [address] [phone] Secondary malignant neoplasm of brain; Primary malignant neoplasm of right upper lobe of lung 08/17/2023 8:30 AM EDT Office Visit Hematology/Oncolog y at [address] [address] Bisi Hollis APRN Primary malignant neoplasm of right upper lobe of lung; Secondary malignant neoplasm of brain; Secondary malignant neoplasm of right adrenal gland 08/17/2023 Travel 08/12/2023 11:05 AM EDT Ancillary Procedure [place] [address] Nick Martinez MD 07/29/2023 Telephone Hematology/Oncolog y at [address] [address] Shawna Haley, CHERYL Follow-up from Last 3 Months Family History Medical [...] Recorded In the past 12 months has [employer], gas, oil, or water [employer] threatened to shut off services in your [...] Mass Index 37.77 10/17/2023 8:16 AM EDT Plan of Treatment Upcoming Encounters Date Type Department Care Team (Late st Contact Info) Description 11/10/2023 8:30 AM EDT Infusion Hematology Oncology at [address] [phone] 11/30/2023 8:30 AM EDT Office Visit Hematology/Oncology at [address] [phone] Bisi Hollis APRN [address] [place] [address] DR HEMATOLOGY AND ONCOLOGY [place], [place] [phone] 11/30/2023 9:00 AM EDT Infusion Hematology Oncology at [address] [phone] 12/07/2023 11:15 AM EDT Office [place] [address] Daisy Lloyd PA [facility] DR [place]ATOLOGY [place] [address] Health Maintenance Due Date Last Done Comments CT Colonography 1958 Colonoscopy 1958 Colorectal Cancer Screening 1958 FIT DNA 1958 FIT 1958 Sigmoidoscopy (10 year) with FIT yearly 1958 Sigmoidoscopy 1958 HIV screen 1976 Hepatitis C Screening 1976 Lipid Screening 1976 Tdap adult 1977 Tetanus vaccine 1977 Zoster vaccine (1 of 2) 2008 Advance Directive 2013 Covid-19 Vaccine ( - 2022-2 4 season) 2022 AAA Screen 09/19/2023 Pneumoccocal Vaccine: 65+ (1 of 1 - PCV) 09/19/2023 Influenza (Flu) vaccine (1 o f 1 - Influenza standard series) 11/06/2023 Diabetes Screening (HgbA1C o r Glucose) 06/01/2026 06/02/2023, 05/23/2023, 04/28/2023, Additional history exists Procedures Procedure Name Priority Date/Time Associated Diagnosis Comments LAB SCAN 10/17/2023 12:00 AM EDT NM PET CT SKULL BASE TO MID-THIGH [...] MR HEAD Routine 08/12/2023 11:03 AM EDT COMPREHENSIVE METABOLIC PANEL STAT 06/02/2023 8:08 AM EDT Primary malignant neoplasm of right upper lobe of lung from Last 3 Months or Most Recently Relevant to Health Maintenance Results * Scan Doc: Lab (10/17/2023 12:00 AM EDT) Only the most recent of5 resultswithin the time period is included. Narrative 10/17/2023 12:00 AM EDT Ordered by an unspecified provider. Scanning Provider MEDIA MGR SCAN EXT O RDR/RSLT * NM PET CT Skull Base to Mid-thigh (10/10/2023 10:29 AM EDT) WORKSTATION ID [id number] RAD Anatomical Region Laterality Modality Positron Emissio [...] who have questions please contact the health pulmonary care nurse that requested your imaging first. ? Electronically signed by: Alfredo Jean-Baptiste MD, [facility] ([phone]), at 10/12/2023 11:15 AM Narrative 10/12/2023 11:15 AM EDT EXAMINATION: NM PET CT STANDARD SKULL BASE TO MID-THIGH CLINICAL HISTORY: History of metastatic lung cancer with abdominal pelvic adenopathy status post EUCLID OPERATOR currently on chemotherapy with palliative intent. C34.11, Malignant neoplasm of upper lobe, right bronchus or lung - C79.31, Secondary malignant neoplasm of brain - C79.71, Secondary malignant neoplasm of right adrenal gland TECHNIQUE: Following IV injection of 18-molaec-5-deoxyglucose (FDG) a standard uptake of approximately 60 [...] lung cancer with abdominalpelvic adenopathy status post EUCLID OPERATOR currently on chemotherapy with palliativeintent. C34.11, Malignant neoplasm of upper lobe, right bronchus or lung -C79.31, Secondary malignant neoplasm of brain - C79.71, Secondary malignantneoplasm of right adrenal gland TECHNIQUE: Following IV injection of 33-eijjvx-2-deoxyglucose (FDG) astandard uptake of approximately 60 minutes, [...] patients who have questions please contactthe health pulmonary care nurse that requested your imaging first. Electronically signed by: Alfredo Jean-Baptiste MD, [facility]([phone]), at 10/12/2023 11:15 AM Boy Tovar MD IMG PET ORDERABLES * POC, GLUCOSE (10/10/2023 9:09 AM EDT) [facility] Glucometer, POC 123 65 - 199 mg/dL 10/10/2023 9:09 AM EDT [facility] Comment:Supplemental ranges: <140 mg/dL before meals <180 mg/dL all other times of the day. Blood CAPILLARY BLOOD / Unknown 10/10/2023 9:09 AM EDT 10/10/2023 9:09 AM EDT Boy Tovar MD POINT OF CARE TEST O RDERABLES Performing Organization Address [facility] Co de Phone Number [facility] [place] [address] * Film Library- Storage Only CT Chest Abdomen Pelvis (09/01/2023 9:17 PM EDT) Narrative [facility] - 09/01/2023 9:17 PM EDT This exam is auto-finalizing. It's purpose is for storage only. Bisi Hollis APRN [facility] FILM LIBRARY ORDERABLES Performing Organization Address [facility] de Phone Number [place], [place] * Scan Doc: CT Scan (09/01/2023 12:00 AM EDT) Only the most recent of2 resultswithin the time period is included. Anatomical Region Laterality Modality Other Narrative 09/01/2023 12:00 AM EDT Ordered by an unspecified provider. Scanning Provider MEDIA MGR SCAN EXT O RDR/RSLT * Film Library- Storage Only MR Head (08/12/2023 11:03 AM EDT) Narrative [facility] - 08/12/2023 11:03 AM EDT This exam is auto-finalizing. It's purpose is for storage only. Nick Martinez MD [facility] FILM LIBRARY ORD ERABLES Performing Organization Address [facility] Co de Phone Number [place], [place] * (ABNORMAL) Comprehensive metabolic panel (non-fasting) (06/02/2023 8:08 AM EDT) Glucose 98 65 - 199 mg/dL [facility] Comment:Diabetes: >=200 mg/d L plus symptoms Blood Urea Nitrogen 21(H) 10 - 20 mg/dL [facility] Creatinine 1.04 0.80 - 1.50 mg/dL [facility] Sodium 137 135 - 145 mmol/L [facility] Potassium 4.3 3.5 - 5.0 mmol/L [facility] Comment: Please note: ??Patients with WBC >100,000 may have falsely elevated Potassium levels. ??For accurate Potassium quantification in these patients send serum separator tube (gold top) for subsequent determinations. ??Contact the Clinical Chemistry Laboratory if there are any questions. Chloride 99 98 - 107 mmol/L [facility] Carbon Dioxide 28 22 - 31 mmol/L [facility] Anion Gap 10 5 - 15 mmol/L [facility] Calcium 9.8 8.5 - 10.5 mg/dL [facility] Protein, Total 7.1 6.1 - 8.0 g/dL [facility] Albumin 4.3 3.2 - 5.2 g/dL [facility] Aspartate Aminotransferase 24 0 - 39 unit/L [facility] Alanine Aminotransferase 39 0 - 55 unit/L [facility] Alkaline Phosphatase 64 40 - 130 unit/L [facility] Bilirubin, Total 0.3 0.2 - 1.3 mg/dL [facility] Est Glomerular Filtration Rate 80 >=60 mL/min/1. 73 m?? [facility] Comment: This patient's estimated [...] Lab Ella Diego APRN CHEMISTRY ORDERABL ES [facility] [place] [address] from Last 3 Months or Most Recently Relevant to Health Maintenance Advance Directives Documents on File Type Date Recorded Patient Dramatic Arts Historian Expl anation Personal Dramatic Arts Historian 06/30/2021 1:07 PM hawa friend * Attempt Cardiopulmonary Resuscitation - Inpatient (Latest Code Status on File) Date Activated Date Inactivated Comments 12/01/2020 11:10 AM 12/02/2020 4:41 AM Question Answer Comments Code Status decision made by: Patient Care Teams Clinical Nurse Occupational Medicine Relationship Specialty Start Date End Date Nick Martinez MD [address] [place] [address] PCP - General Internal Medicine 07/01/18
--- OUTSIDE RECORDS SUMMARY | 2023-10-27 15:18 | XMS_ITS | Encounter Summary ---
Author Organization [facility] [place] [address] Care Team Providers Care Seam Press Operator Name Role Phone Nick Martinez MD Primary Care Provider [phone] Reason for Visit * Diagnostic Test (Routine) - Closed Specialty Diagnoses / Procedures Referred By Mariana workman Referred To Contact Radiology Diagnoses Primary malignant 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 of right adrenal gland Procedures NM PET CT Skull Base to Mid-thigh Boy Tovar MD [facility] DR HEMATOLOGY [place] [address] [place] [address] Referral ID Status Reason Start Date Expiration Date V isits Requested Visits Authorized [id number] Closed Specialty Service Requested 09/09/2023 11/07/2023 1 1 Encounter Details Date Type Department Care Team (Late st Contact Info) Description 10/10/2023 8:43 AM EDT - 10/10/2023 11:59 PM EDT Hospital Encounter [place] [address] Boy Tovar MD [facility] DR HEMATOLOGY [place] [address] Discharge Disposition: Home Social History Tobacco Use Types Packs/Day Years Used Date Smoking Tobacco: Former Smokeless Tobacco: Current Chew Comments:1 can per day. Plan s to quit today 02/04/21 Alcohol Use Standard Drinks/Week Comments Yes 0 (1 standard drink = 0.6 oz pur e alcohol) on occassion only [facility] Utilities Answer Date Recorded In the [...] 8:30 AM EDT Infusion Hematology Oncology at [address] [phone] 11/30/2023 8:30 AM EDT Office Visit Hematology/Oncology at [address] [phone] Bisi Hollis APRN [address] [place] [address] DR HEMATOLOGY [place] [address] 11/30/2023 9:00 AM EDT Infusion Hematology Oncology at [address] [phone] 12/07/2023 11:15 AM EDT Office Visit [place] [address] Daisy Lloyd PA [facility] DR HEMATOLOGY [place] [address] documented as of this encounter Procedures Procedure [...] - 199 mg/dL 10/10/2023 9:09 AM EDT [facility] Comment:Supplemental ranges: <140 mg/dL before meals <180 mg/dL all other times of the day. Blood CAPILLARY BLOOD / Unknown 10/10/2023 9:09 AM EDT 10/10/2023 9:09 AM EDT Boy Tovar MD POINT OF CARE TEST O RDERABLES [facility] [place] [address] documented in this encounter Visit Diagnoses Not on filedocumented in this encounter Care Teams Seam Press Operator Relationship Specialty Start Date End Date Nick Martinez MD [address] [place] [address] PCP - General Internal Medicine 07/01/18 documented as of this encounter
--- OUTSIDE RECORDS SUMMARY | 2023-10-27 15:19 | XMS_ITS | Encounter Summary ---
Author Organization [facility] [place] [address] Care Team Providers Care Visualizer Name Role Phone Nick Martinez MD Primary Care Provider [phone] Encounter Details Date Type Department Care Team (Latest Contact Info) Description 07/04/2023 Travel Social History Tobacco Use Types Packs/Day Years Used Date Smoking Tobacco: Former Smokeless Tobacco: Current Chew Comments:1 can per day. Plan s to quit today 02/04/21 Alcohol Use Standard Drinks/Week Comments Yes 0 (1 standard drink = 0.6 oz pur e alcohol) on occassion only [facility] Utilities Answer Date Recorded In the past [...] 8:30 AM EDT Infusion Hematology Oncology at [address] [phone] 11/30/2023 8:30 AM EDT Office Visit Hematology/Oncology at [address] [phone] Bisi Hollis WATER MAIN INSPECTOR [address] [place] [address] DR [place]Y [place] [address] 11/30/2023 9:00 AM EDT Infusion Hematology Oncology at [address] [phone] 12/07/2023 11:15 AM EDT Office Visit [place] [address] Daisy Lloyd PA [facility] DR [place] [address] documented as of this encounter Visit Diagnoses Not on filedocumented in this encounter Care Teams Visualizer Relationship Specialty Start Date End Date Nick Martinez MD [address] [place] [address] PCP - General Internal Medicine 07/01/18 documented as of this encounter
--- OUTSIDE RECORDS SUMMARY | 2023-10-27 15:19 | XMS_ITS | Encounter Summary ---
Author Organization [facility] [place] [address] Care Team Providers Care Sheet Combining Operator Name Role Phone Nick Martinez MD Primary Care Provider Encounter Details Date Type Department Care Team (Late st Contact Info) Description 09/26/2023 8:30 AM EDT Office Visit Hematology/Oncology at [address] [phone] Bisi Hollis APRN [address] [place] [address] DR HEMATOLOGY [place] [address] Primary malignant neoplasm of right [...] e alcohol) on occassion only [facility] Utilities Answer Date Recorded [...] original note were not included. Thoracic Oncology [facility] [place] [address] [phone] Raffy Latif is being seen for cT1cN3 [...] to maintenance therapy at that time. 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 Bisi RiceJf Hollis, STREET LIGHT SERVICER 09/26/2023 Medical Oncology & Hematology [facility] CC: [facility] MYERS HPI/Interval History/Subjective: Last [...] History/Support Network: Home situation: Lives with in [facility] with Velvet. 35 years. 3 children and plan to adopt another one through foster care. 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 38 Pk [...] brain was not included in the imaged mkxrj-zc-qoci on the current study. 05.25.[address] [...] 8:30 AM EDT Infusion Hematology Oncology at [address] [phone] 11/30/2023 8:30 AM EDT Office Visit Hematology/Oncology at [address] [phone] Bisi Hollis APRN [address] [place] [address] DR HEMATOLOGY [place] [address] 11/30/2023 9:00 AM EDT Infusion Hematology Oncology at [address] [phone] 12/07/2023 11:15 AM EDT Office Visit [place] [address] Daisy Lloyd PA [facility] DR HEMATOLOGY [place] [address] documented as of this encounter Visit Diagnoses Diagnosis Primary malignant neoplasm of right upper lobe of lung Malignant neoplasm of upper lobe, bronchus or lung 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
--- OUTSIDE RECORDS SUMMARY | 2023-10-27 15:19 | XMS_ITS | Encounter Summary ---
Author Organization [facility] [place] [address] Care Team Providers Care Security Guard Dispatcher Name Role Phone Nick Martinez MD Primary Care Provider [phone] Encounter Details Date Type Department Care Team (Latest Contact Info) Description 07/25/2023 Travel Social History Tobacco Use Types Packs/Day Years Used Date Smoking Tobacco: Former Smokeless Tobacco: Current Chew Comments:1 can per day. Plan s to quit today 02/04/21 Alcohol Use Standard Drinks/Week Comments Yes 0 (1 standard drink = 0.6 oz pur e alcohol) on occassion only [facility] Utilities Answer Date Recorded In the [...] 8:30 AM EDT Infusion Hematology Oncology at [address] [phone] 11/30/2023 8:30 AM EDT Office Visit Hematology/Oncology at [address] [phone] Bisi Hollis INSPECTOR FUEL HOSE [address] [place] [address] DR HEMATOLOGY [place] [address] 11/30/2023 9:00 AM EDT Infusion Hematology Oncology at [address] [phone] 12/07/2023 11:15 AM EDT Office Visit [place] [address] Daisy Lloyd PA [facility] DR HEMATOLOGY [place] [address] documented as of this encounter Visit Diagnoses Not on filedocumented in this encounter Care Teams Security Guard Dispatcher Relationship Specialty Start Date End Date Nick Martinez MD [address] [place] [address] PCP - General Internal Medicine 07/01/18 documented as of this encounter
--- OUTSIDE RECORDS SUMMARY | 2023-10-27 15:19 | XMS_ITS | Encounter Summary ---
Author Organization [facility] [place] [address] Care Team Providers Care Brim Raiser Name Role Phone Nick Martinez MD Primary Care Provider [phone] Encounter Details Date Type Department Care Team (Late st Contact Info) Description 09/05/2023 Notes Only Hematology/Oncology at [address] [phone] Azalea Watkins, CLINICAL PSYCHOLOGY TEACHER OFFICE OF CARE MANAGEMENT Social History Tobacco Use Types Packs/Day Years Used Date Smoking Tobacco: Former Smokeless Tobacco: Current Chew Comments:1 can per day. Plan s to quit today 02/04/21 Alcohol Use Standard Drinks/Week Comments Yes 0 (1 standard drink = 0.6 oz pur e alcohol) on occassion only [facility] Utilities Answer Date Recorded In the past 12 months has [employer], gas, oil, or water company threatened [...] 8:30 AM EDT Infusion Hematology Oncology at [address] [phone] 11/30/2023 8:30 AM EDT Office Visit Hematology/Oncology at [address] [phone] Bisi Hollis APRN [address] [place] [address] DR HEMATOLOGY AND ONCOLOGY [place], [place] [phone] 11/30/2023 9:00 AM EDT Infusion Hematology Oncology at [address] [address] 12/07/2023 11:15 AM EDT Office Visit [place] [address] Daisy Lloyd PA [facility] [place] [address] documented as of this encounter Visit Diagnoses Not on filedocumented in this encounter Care Teams Brim Raiser Relationship Specialty Start Date End Date Nick Martinez MD [address] [place] [address] PCP - General Internal Medicine 07/01/18 documented as of this encounter
--- OUTSIDE RECORDS SUMMARY | 2023-10-27 15:19 | XMS_ITS | Encounter Summary ---
Author Organization [facility] [place] [address] Care Team Providers Care Dental Equipment Technician Name Role Phone Nick Martinez MD Primary Care Provider [phone] Encounter Details Date Type Department Care Team (Late st Contact Info) Description 07/17/2023 Telephone [place]ematology [place] [address] Shanon Moore MD [facility] DR HEMATOLOGY/[place] [address] Social History Tobacco Use Types Packs/Day Years Used Date Smoking Tobacco: Former Smokeless Tobacco: Current Chew Comments:1 can per day. Plan s to quit today 02/04/21 Alcohol Use Standard Drinks/Week Comments Yes 0 (1 standard drink = 0.6 oz pur e alcohol) on occassion only [facility] Utilities Answer Date Recorded In the past 12 months has [employer], gas, oil, or water company threatened [...] BRIEF CONVERSATION WITH OSH PROVIDER: Referring Facility: [facility] Calling Provider: LOUIS Mistryuart Salomon is [...] any questions or concerns. Shanon Moore MD [facility] Hematology/Oncology Fellow [facility] [place] Pager#[phone] documented in this encounter Plan of Treatment Upcoming Encounters Date Type Department Care Team (Late st Contact Info) Description 11/10/2023 8:30 AM EDT Infusion Hematology Oncology at [address] [phone] 11/30/2023 8:30 AM EDT Office Visit Hematology/Oncology at [address] [phone] Bisi Hollis [address] HEMATOLOGY AND ONCOLOGY [place], [place] [phone] 11/30/2023 9:00 AM EDT Infusion Hematology Oncology at [address] [phone] 12/07/2023 11:15 AM EDT Office Visit [place] [address] Daisy Lloyd PA [facility] DR [place] [address] documented as of this encounter Visit Diagnoses Not on filedocumented in this encounter Care Teams Dental Equipment Technician Relationship Specialty Start Date End Date Nick Martinez MD [address] [place] [address] PCP - General Internal Medicine 07/01/18 documented as of this encounter
--- OUTSIDE RECORDS SUMMARY | 2023-10-27 15:19 | XMS_ITS | Encounter Summary ---
Author Organization [facility] [place] [address] Care Team Providers Care Greensman Name Role Phone Nick Martinez MD Primary [...] HCL, 25MCG, INJECTION (ALOXI) Boy Tovar MD [address] [place] [address] [place] [address] Boy Tovar MD [address] [place] [address] [place] [address] Referral ID Status Reason Start Date Expiration Date V isits Requested Visits Authorized [id number] Authorized 06/27/2023 11/27/2023 99 99 Encounter Details Date Type Department Care Team (Late st Contact Info) Description 07/25/2023 2:00 PM EDT Infusion Hematology Oncology at [address] [phone] Secondary malignant neoplasm of brain; Primary malignant neoplasm of right upper lobe of lung Social History Tobacco Use Types Packs/Day Years Used Date Smoking Tobacco: Former Smokeless Tobacco: Current Chew Comments:1 can per day. Plan s to quit today 02/04/21 Alcohol Use Standard Drinks/Week Comments Yes 0 (1 standard drink = 0.6 oz pur e alcohol) on occassion only [facility] Utilities Answer Date Recorded In [...] 8:30 AM EDT Infusion Hematology Oncology at [address] [phone] 11/30/2023 8:30 AM EDT Office Visit Hematology/Oncology at [address] [phone] Bisi Hollis [address] [place] [address] 11/30/2023 9:00 AM EDT Infusion Hematology Oncology at [address] [phone] 12/07/2023 11:15 AM EDT Office Visit [place] [address] Daisy Lloyd PA [facility] DR [place] [address] documented as of this encounter Visit Diagnoses [...] over 2 Minutes, ONCE, 1 dose, On Tue07/25/23 at 1445, Alternative administration of IV push over 2 minutes is a recommendation from the director of operations. Administer prior to chemotherapy., Routine Given 07/25/2023 [...] Recorded weight), Intravenous, ONCE, 1 dose, On 07/25/23 at 1545, Administer over 10 Minutes New Bag 07/25/2023 3:38 PM EDT 1,200 mg 888 mL/hr documented in this encounter Care Teams Greensman Relationship Specialty Start Date End Date Nick Martinez MD [address] [place] [address] PCP - General Internal Medicine 07/01/18 documented as of this encounter
--- OUTSIDE RECORDS SUMMARY | 2023-10-27 15:19 | XMS_ITS | Encounter Summary ---
Author Organization [facility] [place] [address] Care Team Providers Care Cutter Operator Helper Name Role Phone Nick Martinez MD Primary Care Provider [phone] Encounter Details Date Type Department Care Team (Late st Contact Info) Description 07/18/2023 Orders Only [place]ology [place] [address] Boy Tovar MD [facility] [place] [address] Primary malignant neoplasm of right upper lobe of lung Social History Tobacco Use Types Packs/Day Years Used Date Smoking Tobacco: Former Smokeless Tobacco: Current Chew Comments:1 can per day. Plan s to quit today 02/04/21 Alcohol Use Standard Drinks/Week Comments Yes 0 (1 standard drink = 0.6 oz pur e alcohol) on occassion only [facility] Utilities Answer Date Recorded In the past 12 months has [employer] electric, gas, oil, or water company threatened [...] 8:30 AM EDT Infusion Hematology Oncology at [address] [phone] 11/30/2023 8:30 AM EDT Office Visit Hematology/Oncology at [address] [phone] Bisi Hollis APRN [address] [place] [address] DR HEMATOLOGY AND ONCOLOGY [place], [place] [phone] 11/30/2023 9:00 AM EDT Infusion Hematology Oncology at [address] [phone] 12/07/2023 11:15 AM EDT Office [place] [address] Daisy Lloyd PA [facility] DR HEMATOLOGY [place] [address] documented as of this encounter Visit Diagnoses Diagnosis Primary malignant neoplasm of right upper lobe of lung Malignant neoplasm of upper lobe, bronchus or lung documented in this encounter Care Teams Cutter Operator Helper Relationship Specialty Start Date End Date Nick Martinez MD [address] [place] [address] PCP - General Internal Medicine 07/01/18 documented as of this encounter
--- OUTSIDE RECORDS SUMMARY | 2023-10-27 15:19 | XMS_ITS | Encounter Summary ---
Author Organization [facility] [place] [address] Care Team Providers Care Steward/Stewardess Lounge Name Role Phone Nick Martinez MD Primary Care Provider [phone] Encounter Details Date Type Department Care Team (Latest Contact Info) Description 09/04/2023 Travel Social History Tobacco Use Types Packs/Day Years Used Date Smoking Tobacco: Former Smokeless Tobacco: Current Chew Comments:1 can per day. Plan s to quit today 02/04/21 Alcohol Use Standard Drinks/Week Comments Yes 0 (1 standard drink = 0.6 oz pur e alcohol) on occassion only [facility] Utilities Answer Date Recorded In [...] 8:30 AM EDT Infusion Hematology Oncology at [address] [phone] 11/30/2023 8:30 AM EDT Office Visit Hematology/Oncology at [address] [phone] Bisi Hollis MERCHANDISE EXECUTIVE [address] [place] [address] DR HEMATOLOGY [place] [address] 11/30/2023 9:00 AM EDT Infusion Hematology Oncology at [address] [phone] 12/07/2023 11:15 AM EDT Office [place] [address] Daisy Lloyd PA [facility] DR [place]ATOLOG[place] [address] documented as of this encounter Visit Diagnoses Not on filedocumented in this encounter Care Teams Steward/Stewardess Lounge Relationship Specialty Start Date End Date Nick Martinez MD [address] [place] [address] PCP - General Internal Medicine 07/01/18 documented as of this encounter
--- OUTSIDE RECORDS SUMMARY | 2023-10-27 15:19 | XMS_ITS | Encounter Summary ---
Author Organization [facility] [place] [address] Care Team Providers Care Computer Systems Administrator Name Role Phone Nick Martinez MD Primary Care Provider [phone] Encounter Details Date Type Department Care Team (Late st Contact Info) Description 07/11/2023 Telephone Hematology/Oncology at [address] [phone] Genoveva Herman, RN Social History Tobacco Use Types Packs/Day Years Used Date Smoking Tobacco: Former Smokeless Tobacco: Current Chew Comments:1 can per day. Plan s to quit today 02/04/21 Alcohol Use Standard Drinks/Week Comments Yes 0 (1 standard drink = 0.6 oz pur e alcohol) on occassion only [facility] Utilities Answer Date Recorded In the past 12 months has [employer], gas, oil, or water [employer] threatened to shut off services in your [...] AM EDT Infusion Hematology Oncology at [address] [phone] 11/30/2023 8:30 AM EDT Office Visit Hematology/Oncology at [address] [phone] Bisi Hollis ACT[employer]ARY [address] [place] [address] DR HEMATOLOGY AND ONCOLOGY [place], [place] [phone] 11/30/2023 9:00 AM EDT Infusion Hematology Oncology at [address] [phone] 12/07/2023 11:15 AM EDT Office Visit [place] [address] Daisy Lloyd PA [facility] DR [place]AT[place]Y [place] [address] documented as of this encounter Visit Diagnoses Not on filedocumented in this encounter Care Teams Computer Systems Administrator Relationship Specialty Start Date End Date Nick Martinez MD [address] [place] [address] PCP - General Internal Medicine 07/01/18 documented as of this encounter
--- OUTSIDE RECORDS SUMMARY | 2023-10-27 15:19 | XMS_ITS | Encounter Summary ---
Author Organization [facility] [place] [address] Care Team Providers Care Manager Hospitality Name Role Phone Nick Martinez MD Primary Care Provider [phone] Reason for Visit * Reason Comments Chemotherapy [...] HCL, 25MCG, INJECTION (ALOXI) Boy Tovar MD [address] [place] [address] DR [place] [address] Boy Tovar MD [address] [place] [address] DR [place] [address] Referral ID Status Reason Start Date Expiration Date V isits Requested Visits Authorized [id number] Authorized 06/27/2023 11/27/2023 99 99 Encounter Details Date Type Department Care Team (Late st Contact Info) Description 09/26/2023 9:00 AM EDT Infusion Hematology Oncology at [address] [phone] Secondary malignant neoplasm of brain; Primary malignant neoplasm of right upper lobe of lung; Hypomagnesemia Social History Tobacco Use Types Packs/Day Years Used Date Smoking Tobacco: Former Smokeless Tobacco: Current Chew Comments:1 can per day. Plan s to quit today 02/04/21 Alcohol Use Standard Drinks/Week Comments Yes 0 (1 standard drink = 0.6 oz pur e alcohol) on occassion only [facility] Utilities Answer Date Recorded In the past [...] Ready to treat. LAB DATA: completed at [facility] adequate for treatment IV ACCESS: PIV [...] 8:30 AM EDT Infusion Hematology Oncology at [address] [phone] 11/30/2023 8:30 AM EDT Office Visit Hematology/Oncology at [address] [phone] Bisi Hollis APRN [address] [place] [address] DR [place] [address] 11/30/2023 9:00 AM EDT Infusion Hematology Oncology at [address] [phone] 12/07/2023 11:15 AM EDT Office Visit [place] [address] Daisy Lloyd PA [facility] DR [place] [address] documented as of this encounter Visit Diagnoses Diagnosis 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 Administer prior to chemotherapy., Routine Given 09/26/2023 [...] mL/hr documented in this encounter Care Teams Manager Hospitality Relationship Specialty Start Date End Date Nick Martinez MD [address] [place] [address] PCP - General Internal Medicine 07/01/18 documented as of this encounter
--- OUTSIDE RECORDS SUMMARY | 2023-10-27 15:19 | XMS_ITS | Encounter Summary ---
Author Organization Count Includes [facility] Address [facility] [place] [address] Care Team Providers Care Medical Coding Specialist Name Role Phone Nick Martinez MD Primary Care Provider [phone] Encounter Details Date Type Department Care Team (Late st Contact Info) Description 06/28/2023 Orders Only Hematology/Oncology at [address] [phone] Boy Tovar MD [facility] DR [place] [address] Social History Tobacco Use Types Packs/Day Years Used Date Smoking Tobacco: Former Smokeless Tobacco: Current Chew Comments:1 can per day. Plan s to quit today 02/04/21 Alcohol Use Standard Drinks/Week Comments Yes 0 (1 standard drink = 0.6 oz pur e alcohol) on occassion only [facility] Utilities Answer Date Recorded In the past 12 months has [employer] electric, gas, oil, or water company threatened [...] AM EDT Infusion Hematology Oncology at [address] [phone] 11/30/2023 8:30 AM EDT Office Visit Hematology/Oncology at [address] [phone] Bisi Hollis APRN [address] [place] [address] DR HEMATOLOGY [place] [address] 11/30/2023 9:00 AM EDT Infusion Hematology Oncology at [address] [phone] 12/07/2023 11:15 AM EDT Office [place] [address] Daisy Lloyd PA [facility] DR [place] [address] documented as of this encounter Visit Diagnoses Not on filedocumented in this encounter Care Teams Medical Coding Specialist Relationship Specialty Start Date End Date Nick Martinez MD [address] [place] [address] PCP - General Internal Medicine 07/01/18 documented as of this encounter
--- OUTSIDE RECORDS SUMMARY | 2023-10-27 15:19 | XMS_ITS | Encounter Summary ---
[place] [address] Care Team Providers Care Respiratory Therapy Aide Name Role Phone Nick Martinez MD Primary Care Provider [phone] Encounter Details Date Type Department Care Team (Late st Contact Info) Description 07/15/2023 2:05 PM EDT Ancillary Procedure [place]iology [place] [address] Nick Martinez MD [address] [place] [address] Social History Tobacco Use Types Packs/Day Years Used Date Smoking Tobacco: Former Smokeless Tobacco: Current Chew Comments:1 can per day. Plan s to quit today 02/04/21 Alcohol Use Standard Drinks/Week Comments Yes 0 (1 standard drink = 0.6 oz pur e alcohol) on occassion only [facility] Utilities Answer Date Recorded In the past 12 months has [employer] electric, gas, oil, or water company threatened [...] 8:30 AM EDT Infusion Hematology Oncology at [address] [phone] 11/30/2023 8:30 AM EDT Office Visit Hematology/Oncology at [address] [phone] Bisi Hollis APRN [address] [place] [address] DR HEMATOLOGY AND ONCOLOGY [place], [place] [id number] 11/30/2023 9:00 AM EDT Infusion Hematology Oncology at [address] [phone] 12/07/2023 11:15 AM EDT Office Visit [place] [address] Daisy Lloyd PA [facility] DR HEMATOLOGY [place] [address] documented as of this encounter Procedures Procedure Name Priority Date/Time Associated Diagnosis Comments FILM LIBRARY STORAGE ONLY CT CHEST ABDOMEN PELVIS Routine 07/15/2023 2:00 PM EDT documented in this encounter Results * Film Library- Storage Only CT Chest Abdomen Pelvis (07/15/2023 2:00 PM EDT) Narrative SUMEET - 07/15/2023 2:00 PM EDT This exam is auto-finalizing. It's purpose is for storage only. Nick Martinez MD IMG FILM LIBRARY ORD ERABLES Performing Organization Address City/State/[facility] Co de Phone Number [place], [place] documented in this encounter Visit Diagnoses Not on filedocumented in this encounter Care Teams Respiratory Therapy Aide Relationship Specialty Start Date End Date Nick Martinez MD [address] [place] [address] PCP - General Internal Medicine 07/01/18 documented as of this encounter
--- OUTSIDE RECORDS SUMMARY | 2023-10-27 15:19 | XMS_ITS | Encounter Summary ---
[place] [address] Care Team Providers Care Thermostat Mechanic Name Role Phone Nick Martinez MD Primary Care Provider [phone] Encounter Details Date Type Department Care Team (Late st Contact Info) Description 06/29/2023 Telephone [place] [address] Neha Servin RN Social History Tobacco Use Types Packs/Day Years Used Date Smoking Tobacco: Former Smokeless Tobacco: Current Chew Comments:1 can per day. Plan s to quit today 02/04/21 Alcohol Use Standard Drinks/Week Comments Yes 0 (1 standard drink = 0.6 oz pur e alcohol) on occassion only [facility] Utilities Answer Date Recorded In the past 12 months has [employer], gas, oil, or water [employer] threatened to shut off services in your [...] 2:35 PM EDT Received following message from legal administrative secretary: Raffy Shaikh's sister called this afternoon to [...] reach out to him to discuss at [phone] when time allows. This RN called patient [...] AM EDT Infusion Hematology Oncology at [address] [phone] 11/30/2023 8:30 AM EDT Office Visit Hematology/Oncology at [address] [phone] Bisi Hollis APRN [address] [place] [address] DR [place] [address] 11/30/2023 9:00 AM EDT Infusion Hematology Oncology at [address] [phone] 12/07/2023 11:15 AM EDT Office Visit [place] [address] Daisy Lloyd PA [facility] DR [place] [address] documented as of this encounter Visit Diagnoses Not on filedocumented in this encounter Care Teams Thermostat Mechanic Relationship Specialty Start Date End Date Nick Martinez MD [address] [place] [address] PCP - General Internal Medicine 07/01/18 documented as of this encounter
--- OUTSIDE RECORDS SUMMARY | 2023-10-27 15:19 | XMS_ITS | Encounter Summary ---
Author Organization [facility] [place] [address] Care Team Providers Care Boot And Shoe Repairman Name Role Phone Nick Martinez MD Primary Care Provider [phone] Encounter Details Date Type Department Care Team (Latest Contact Info) Description 07/19/2023 Travel Social History Tobacco Use Types Packs/Day Years Used Date Smoking Tobacco: Former Smokeless Tobacco: Current Chew Comments:1 can per day. Plan s to quit today 02/04/21 Alcohol Use Standard Drinks/Week Comments Yes 0 (1 standard drink = 0.6 oz pur e alcohol) on occassion only [facility] Utilities Answer Date Recorded In the [...] AM EDT Infusion Hematology Oncology at [address] [phone] 11/30/2023 8:30 AM EDT Office Visit Hematology/Oncology at [address] [phone] Bisi Hollis ROBOTICS TESTING TECHNICIAN [address] [place] [address] DR HEMATOLOGY [place] [address] 11/30/2023 9:00 AM EDT Infusion Hematology Oncology at [address] [phone] 12/07/2023 11:15 AM EDT Office Visit [place] [address] Daisy Lloyd PA [facility] DR [place] [address] documented as of this encounter Visit Diagnoses Not on filedocumented in this encounter Care Teams Boot And Shoe Repairman Relationship Specialty Start Date End Date Nick Martinez MD [address] [place] [address] PCP - General Internal Medicine 07/01/18 documented as of this encounter
--- OUTSIDE RECORDS SUMMARY | 2023-10-27 15:19 | XMS_ITS | Encounter Summary ---
[place] [address] Care Team Providers Care Space Sciences Director Name Role Phone Nick Martinez MD Primary Care Provider [phone] Encounter Details Date Type Department Care Team (Late st Contact Info) Description 07/15/2023 Telephone [place] [address] Sandra Brito, RN Social History Tobacco Use Types Packs/Day Years Used Date Smoking Tobacco: Former Smokeless Tobacco: Current Chew Comments:1 can per day. Plan s to quit today 02/04/21 Alcohol Use Standard Drinks/Week Comments Yes 0 (1 standard drink = 0.6 oz pur e alcohol) on occassion only [facility] Utilities Answer Date Recorded In the past 12 months has [employer], gas, oil, or water [employer] threatened to shut off services in your [...] 07/15/2023 4:16 PM EDT Message received from financial secretary: I have Hawa, pt sister on phone [...] 8:30 AM EDT Infusion Hematology Oncology at [address] [phone] 11/30/2023 8:30 AM EDT Office Visit Hematology/Oncology at [address] [phone] Bisi Hollis APRN [address] [place] [address] DR [place] [address] 11/30/2023 9:00 AM EDT Infusion Hematology Oncology at [address] [phone] 12/07/2023 11:15 AM EDT Office [place] [address] Daisy Lloyd PA [facility] DR HEMATOLOGY [place] [address] documented as of this encounter Visit Diagnoses Not on filedocumented in this encounter Care Teams Space Sciences Director Relationship Specialty Start Date End Date Nick Martinez MD [address] [place] [address] PCP - General Internal Medicine 07/01/18 documented as of this encounter
--- OUTSIDE RECORDS SUMMARY | 2023-10-27 15:19 | XMS_ITS | Encounter Summary ---
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 Procedures NM PET CT Skull Base to Mid-thigh Boy Tovar MD [facility] [place] [address] [place] [address] Referral ID Status Reason Start Date Expiration Date V isits Requested Visits Authorized [id number] Closed Specialty Service Requested 09/09/2023 11/07/2023 1 1 Encounter Details Date Type Department Care Team (Late st Contact Info) Description 09/05/2023 9:00 AM EDT Office Visit Hematology/Oncology at [address] [phone] Boy Tovar MD [facility] [place] [address] Bisi Hollis, [place] [address] [place] [address] DR [place]EMATOLOGY [place] [address] Primary malignant neoplasm of right upper lobe [...] original note were not included. Thoracic Oncology [place] [address] [phone] Raffy Latif is being seen for cT1cN3 [...] Restage with PET scan at [facility] (first week of October- ordered today at [facility]. He has anxiolytic on hand if he needs) and then would likely pursue maintenance therapy. 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 No admission this time. [...] Network: Home situation: Lives with in [facility] with [place]. 35 years. 3 children and plan to adopt another one through foster care. 1 grandchild Employment: [employer] Tobacco use: Quit in 1999. 40 Pk [...] brain was not included in the imaged [id number] on the current study. 05.25.[address] [...] 8:30 AM EDT Infusion Hematology Oncology at [address] [phone] 11/30/2023 8:30 AM EDT Office Visit Hematology/Oncology at [address] [phone] Bisi Hollis APRN [address] [place] [address] HEMATOLOGY AND ONCOLOGY [place], [place] [address] 11/30/2023 9:00 AM EDT Infusion Hematology Oncology at [address] [address] 12/07/2023 11:15 AM EDT Office [place] [address] Daisy Lloyd PA [facility] DR [place] [address] documented as of this encounter Results * NM PET CT Skull Base to Mid-thigh (10/10/2023 10:29 AM EDT) WORKSTATION ID [id number] RAD Anatomical Region Laterality Modality Positron Emissio [...] who have questions please contact the health point of care specialist that requested your imaging first. ? 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 C34.11, Malignant neoplasm of upper lobe, right bronchus or lung - C79.31, Secondary malignant neoplasm of brain - C79.71, Secondary malignant neoplasm of right adrenal gland TECHNIQUE: Following IV injection of 26-sdfcgk-4-deoxyglucose (FDG) a standard uptake of approximately 60 [...] lung cancer with abdominalpelvic adenopathy status post WET END SUPERVISOR currently on chemotherapy with palliativeintent. C34.11, Malignant neoplasm of upper lobe, right bronchus or lung -C79.31, Secondary malignant neoplasm of brain - C79.71, Secondary malignantneoplasm of right adrenal gland TECHNIQUE: Following IV injection of 81-cnzgai-5-deoxyglucose (FDG) astandard uptake of approximately 60 minutes, [...] patients who have questions please contactthe health point of care specialist that requested your imaging first. Boy Tovar MD IMG PET ORDERABLES documented [...] gland documented in this encounter Care Teams Hvac Project Manager Relationship Specialty Start Date End Date Nick Martinez MD [address] [place] [address] PCP - General Internal Medicine 07/01/18 documented as of this encounter
--- OUTSIDE RECORDS SUMMARY | 2023-10-27 15:19 | XMS_ITS | Encounter Summary ---
Author Organization [facility] Address [facility] [place] [address] Care Team Providers Care Tobacco Grader Name Role Phone Nick Martinez MD Primary Care Provider [phone] Encounter Details Date Type Department Care Team (Late st Contact Info) Description 07/05/2023 Orders Only Hematology [place] [address] Boy Tovar MD [facility] [address] [place] [address] Social History Tobacco Use Types Packs/Day Years Used Date Smoking Tobacco: Former Smokeless Tobacco: Current Chew Comments:1 can per day. Plan s to quit today 02/04/21 Alcohol Use Standard Drinks/Week Comments Yes 0 (1 standard drink = 0.6 oz pur e alcohol) on occassion only [facility] Utilities Answer Date Recorded In the past 12 months has [employer] electric, gas, oil, or water company [...] AM EDT Infusion Hematology Oncology at [address] [phone] 11/30/2023 8:30 AM EDT Office Visit Hematology/Oncology at [address] [phone] Bisi Hollis APRN [address] [place] [address] DR HEMATOLOGY [place] [address] 11/30/2023 9:00 AM EDT Infusion Hematology Oncology at [address] [phone] 12/07/2023 11:15 AM EDT Office Visit [place] [address] Daisy Lloyd PA [facility] [address] [place] [address] documented as of this encounter Visit Diagnoses Not on filedocumented in this encounter Care Teams Tobacco Grader Relationship Specialty Start Date End Date Nick Martinez MD [address] [place] [address] PCP - General Internal Medicine 07/01/18 documented as of this encounter
--- OUTSIDE RECORDS SUMMARY | 2023-10-27 15:19 | XMS_ITS | Encounter Summary ---
Author Organization [facility] [place] [address] Care Team Providers Care Recycling Director Name Role Phone Nick Martinez MD [...] HCL, 25MCG, INJECTION (ALOXI) Boy Tovar MD [address] [place] [address] DR [place] [address] Boy Tovar MD [address] [place] [address] DR [place] [address] Referral ID Status Reason Start Date Expiration Date V isits Requested Visits Authorized [id number] Authorized 06/27/2023 11/27/2023 99 99 Encounter Details Date Type Department Care Team (Late st Contact Info) Description 09/05/2023 9:30 AM EDT Infusion Hematology Oncology at [address] [phone] Secondary malignant neoplasm of brain; [...] to treat. LAB DATA: completed 09/05/23 at [facility] IV ACCESS: PIV Pre administration: Chemotherapy orders [...] 8:30 AM EDT Infusion Hematology Oncology at [address] [address] 11/30/2023 8:30 AM EDT Office Visit Hematology/Oncology at [address] [phone] Bisi Hollis APRN [address] [place] [address] DR [place] [address] 11/30/2023 9:00 AM EDT Infusion Hematology Oncology at [address] [address] 12/07/2023 11:15 AM EDT Office Visit [place] [address] Daisy Lloyd PA [facility] [address] [place] [address] documented as of this encounter Visit Diagnoses [...] over 2 Minutes, ONCE, 1 dose, On Tue09/05/23 at 1030, Alternative administration of IV push over 2 minutes is a recommendation from the manager food. Administer prior to chemotherapy., Routine Given 09/05/2023 [...] mL/hr documented in this encounter Care Teams Recycling Director Relationship Specialty Start Date End Date Nick Martinez MD [address] [place] [address] PCP - General Internal Medicine 07/01/18 documented as of this encounter
--- OUTSIDE RECORDS SUMMARY | 2023-10-27 15:19 | XMS_ITS | Encounter Summary ---
[place] [address] Care Team Providers Care Jd Edwards Name Role Phone Nick Martinez MD Primary Care Provider [phone] Reason for Visit * Reason Onset Date Comments Prior Authorization 08/18/2023 Encounter Details Date Type Department Care Team (Late st Contact Info) Description 08/18/2023 Telephone Hematology [place] [address] Manjula Liu Prior Authorization Social History Tobacco Use Types Packs/Day Years Used Date Smoking Tobacco: Former Smokeless Tobacco: Current Chew Comments:1 can per day. Plan s to quit today 02/04/21 Alcohol Use Standard Drinks/Week Comments Yes 0 (1 standard drink = 0.6 oz pur e alcohol) on occassion only [employer] Utilities Answer Date Recorded In the past 12 months has [employer], gas, oil, or water [employer] threatened to shut off services in your [...] EDT Procedure Prior Authorization Procedure/Cpt: 7 1260, [address] Ct C/A/P Rationale: C34.11 Health Plan: [facility] [employer] Authorizing Vendor: [employer] Order/ Authorization #: Effective Date: 08/18/2023 - 10/16/2023 Status: Approved Rendering Facility: [facility] documented in this encounter Plan of Treatment Upcoming Encounters Date Type Department Care Team (Late st Contact Info) Description 11/10/2023 8:30 AM EDT Infusion Hematology Oncology at [address] [phone] 11/30/2023 8:30 AM EDT Office Visit Hematology/Oncology at [address] [phone] Bisi Hollis APRN [address] [place] [address] DR HEMATOLOGY AND ONCOLOGY [place], [place] [phone] 11/30/2023 9:00 AM EDT Infusion Hematology Oncology at [address] [address] 12/07/2023 11:15 AM EDT Office Visit [place] [address] Daisy Lloyd PA [facility] DR [place] [address] documented as of this encounter Visit Diagnoses Not on filedocumented in this encounter Care Teams Jd Edwards Relationship Specialty Start Date End Date Nick Martinez MD [address] [place] [address] PCP - General Internal Medicine 07/01/18 documented as of this encounter
--- OUTSIDE RECORDS SUMMARY | 2023-10-27 15:19 | XMS_ITS | Encounter Summary ---
Author Organization [facility] [place] [address] Care Team Providers Care Overedger Name Role Phone Nick Martinez MD Primary Care Provider [phone] Reason for Visit * Reason Comments Medication Refill Encounter Details Date Type Department Care Team (Late st Contact Info) Description 09/05/2023 Refill [place] [address] Rosalie Samano MD [facility] [place] [address] Social History Tobacco Use Types Packs/Day Years Used Date Smoking Tobacco: Former Smokeless Tobacco: Current Chew Comments:1 can per day. Plan s to quit today 02/04/21 Alcohol Use Standard Drinks/Week Comments Yes 0 (1 standard drink = 0.6 oz pur e alcohol) on occassion only [facility] Utilities Answer Date Recorded In the past 12 months has [employer] electric, gas, oil, or water company threatened [...] 8:30 AM EDT Infusion Hematology Oncology at [address] [phone] 11/30/2023 8:30 AM EDT Office Visit Hematology/Oncology at [address] [phone] Bisi Hollis APRN [address] [place] [address] DR HEMATOLOGY AND ONCOLOGY [place], [place] [phone] 11/30/2023 9:00 AM EDT Infusion Hematology Oncology at [address] [phone] 12/07/2023 11:15 AM EDT Office Visit [place] [address] Daisy Lloyd PA [facility] DR [place] [address] documented as of this encounter Visit Diagnoses Not on filedocumented in this encounter Care Teams Overedger Relationship Specialty Start Date End Date Nick Martinez MD [address] [place] [address] PCP - General Internal Medicine 07/01/18 documented as of this encounter
--- OUTSIDE RECORDS SUMMARY | 2023-10-27 15:19 | XMS_ITS | Encounter Summary ---
Author Organization [facility] [place] [address] Care Team Providers Care Pet Adoption Counselor Name Role Phone Nick Martinez MD Primary Care Provider [phone] Encounter Details Date Type Department Care Team (Latest Contact Info) Description 08/17/2023 Travel Social History Tobacco Use Types Packs/Day Years Used Date Smoking Tobacco: Former Smokeless Tobacco: Current Chew Comments:1 can per day. Plan s to quit today 02/04/21 Alcohol Use Standard Drinks/Week Comments Yes 0 (1 standard drink = 0.6 oz pur e alcohol) on occassion only [facility] Utilities Answer Date Recorded In the [...] 8:30 AM EDT Infusion Hematology Oncology at [address] [phone] 11/30/2023 8:30 AM EDT Office Visit Hematology/Oncology at [address] [phone] Bisi Hollis INSEMINATION WORKER [address] [place] [address] DR HEMATOLOGY [place] [address] 11/30/2023 9:00 AM EDT Infusion Hematology Oncology at [address] [address] 12/07/2023 11:15 AM EDT Office Visit [place] [address] Daisy Lloyd PA [facility] DR [place] [address] documented as of this encounter Visit Diagnoses Not on filedocumented in this encounter Care Teams Pet Adoption Counselor Relationship Specialty Start Date End Date Nick Martinez MD [address] [place] [address] PCP - General Internal Medicine 07/01/18 documented as of this encounter
--- OUTSIDE RECORDS SUMMARY | 2023-10-27 15:19 | XMS_ITS | Encounter Summary ---
[place] [address] Care Team Providers Care Director Of Golf Name Role Phone Nick Martinez MD Primary Care Provider [phone] Reason for Visit * Reason Onset Date Comments Prior Authorization 07/05/2023 Encounter Details Date Type Department Care Team (Late st Contact Info) Description 07/05/2023 Telephone Hematology [place] [address] Manjula Liu Prior Authorization Social History Tobacco Use Types Packs/Day Years Used Date Smoking Tobacco: Former Smokeless Tobacco: Current Chew Comments:1 can per day. Plan s to quit today 02/04/21 Alcohol Use Standard Drinks/Week Comments Yes 0 (1 standard drink = 0.6 oz pur e alcohol) on occassion only [facility] Utilities Answer Date Recorded In the past 12 months has [employer], gas, oil, or water [employer] threatened to shut off services in [...] 3:04 PM EDT Procedure Prior Authorization Procedure/Cpt: 03985 Ct abdomen/pelvis C+ Rationale: C34.11 Health Plan: [facility] Authorizing Vendor: [employer] Order/ Authorization #: Effective Date: 07/05/2023 - 09/02/2023 Status: Approved Rendering Facility: [facility] documented in this encounter Plan of Treatment Upcoming Encounters Date Type Department Care Team (Late st Contact Info) Description 11/10/2023 8:30 AM EDT Infusion Hematology Oncology at [address] [phone] 11/30/2023 8:30 AM EDT Office Visit Hematology/Oncology at [address] [phone] Bisi Hollis APRN [address] [place] [address] DR HEMATOLOGY AND ONCOLOGY [place], [place] [phone] 11/30/2023 9:00 AM EDT Infusion Hematology Oncology at [address] [phone] 12/07/2023 11:15 AM EDT Office Visit [place] [address] Daisy Lloyd PA [facility] [place] [address] documented as of this encounter Visit Diagnoses Not on filedocumented in this encounter Care Teams Director Of Golf Relationship Specialty Start Date End Date Nick Martinez MD [address] [place] [address] PCP - General Internal Medicine 07/01/18 documented as of this encounter
--- OUTSIDE RECORDS SUMMARY | 2023-10-27 15:19 | XMS_ITS | Encounter Summary ---
[place] [address] Care Team Providers Care Music Store Manager Name Role Phone Nick Martinez MD Primary Care Provider Encounter Details Date Type Department Care Team (Late st Contact Info) Description 08/12/2023 11:05 AM EDT Ancillary Procedure [place] [address] Nick Martinez MD [address] [place] [address] Social History Tobacco Use Types Packs/Day Years Used Date Smoking Tobacco: Former Smokeless Tobacco: Current Chew Comments:1 can per day. Plan s to quit today 02/04/21 Alcohol Use Standard Drinks/Week Comments Yes 0 (1 standard drink = 0.6 oz pur e alcohol) on occassion only [facility] Utilities Answer Date Recorded In the past 12 months has [employer] electric, gas, oil, or water company threatened [...] 8:30 AM EDT Infusion Hematology Oncology at [address] [phone] 11/30/2023 8:30 AM EDT Office Visit Hematology/Oncology at [address] [phone] Bisi Hollis APRN [address] [place] [address] DR HEMATOLOGY AND ONCOLOGY [place], [place] [phone] 11/30/2023 9:00 AM EDT Infusion Hematology Oncology at [address] [phone] 12/07/2023 11:15 AM EDT Office [place] [address] Daisy Lloyd PA [facility] DR [place] [address] documented as of this encounter Procedures Procedure Name Priority Date/Time Associated Diagnosis Comments FILM LIBRARY STORAGE ONLY MR HEAD Routine 08/12/2023 11:03 AM EDT documented in this encounter Results * Film Library- Storage Only MR Head (08/12/2023 11:03 AM EDT) Narrative SUMEET - 08/12/2023 11:03 AM EDT This exam is auto-finalizing. It's purpose is for storage only. Nick Martinez MD IMG FILM LIBRARY ORD ERABLES Performing Organization Address City/State/[facility] Co de Phone Number [place], [place] documented in this encounter Visit Diagnoses Not on filedocumented in this encounter Care Teams Music Store Manager Relationship Specialty Start Date End Date Nick Martinez MD [address] [place] [address] PCP - General Internal Medicine 07/01/18 documented as of this encounter
--- OUTSIDE RECORDS SUMMARY | 2023-10-27 15:19 | XMS_ITS | Encounter Summary ---
Author Organization [facility] [place] [address] Care Team Providers Care Press Operator Name Role Phone Nick Martinez MD Primary Care Provider Reason for Referral * Consultation (Routine) - Authorized Specialty Diagnoses / Procedures Referred By Mariana workman Referred To Contact Neurology Diagnoses Secondary malignant neoplasm of brain Carlos Marie MD [facility] [place] [address] Unknown None Referral ID Status Reason Start Date Expiration Date Visits Requested Visits Authorized [id number] Authorized Consult, Test & Treat Non PCP 07/18/2023 01/14/2024 1 1 Encounter Details Date Type Department Care Team (Late st Contact Info) Description 07/18/2023 Orders [place] [address] Carlos Marie MD [facility] [place] [address] Secondary malignant neoplasm of brain Social History Tobacco Use Types Packs/Day Years Used Date Smoking Tobacco: Former Smokeless Tobacco: Current Chew Comments:1 can per day. Plan s to quit today 02/04/21 Alcohol Use Standard Drinks/Week Comments Yes 0 (1 standard drink = 0.6 oz pur e alcohol) on occassion only [facility] Utilities Answer Date Recorded In the [...] 8:30 AM EDT Infusion Hematology Oncology at [address] [phone] 11/30/2023 8:30 AM EDT Office Visit Hematology/Oncology at [address] [phone] Bisi Hollis APRN [address] [place] [address] DR HEMATOLOGY [place] [address] 11/30/2023 9:00 AM EDT Infusion Hematology Oncology at [address] [phone] 12/07/2023 11:15 AM EDT Office Visit [place] [address] Daisy Lloyd PA [facility] [place] [address] Scheduled Referrals Name Type Priority Associated Diagnoses Orde r Schedule Referral to Neurology Outpatient Referral Routine Secondary malignant neoplasm of brain Ordered: 07/18/2023 documented as of this encounter Visit Diagnoses Diagnosis 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
--- OUTSIDE RECORDS SUMMARY | 2023-10-27 15:19 | XMS_ITS | Encounter Summary ---
Author Organization [facility] [place] [address] Care Team Providers Care Mainspring Reverse Winder Name Role Phone Nick Martinez MD Primary Care Provider [phone] Encounter Details Date Type Department Care Team (Latest Contact Info) Description 08/18/2023 Travel Social History Tobacco Use Types Packs/Day Years Used Date Smoking Tobacco: Former Smokeless Tobacco: Current Chew Comments:1 can per day. Plan s to quit today 02/04/21 Alcohol Use Standard Drinks/Week Comments Yes 0 (1 standard drink = 0.6 oz pur e alcohol) on occassion only [facility] Utilities Answer Date Recorded In the [...] 8:30 AM EDT Infusion Hematology Oncology at [address] [phone] 11/30/2023 8:30 AM EDT Office Visit Hematology/Oncology at [address] [phone] Bisi Hollis TECHNICAL RESEARCH SCIENTIST [address] [place] [address] DR [place] [address] 11/30/2023 9:00 AM EDT Infusion Hematology Oncology at [address] [phone] 12/07/2023 11:15 AM EDT Office [place] [address] Daisy Lloyd PA [facility] DR HEMATOLOGY [place] [address] documented as of this encounter Visit Diagnoses Not on filedocumented in this encounter Care Teams Mainspring Reverse Winder Relationship Specialty Start Date End Date Nick Martinez MD [address] [place] [address] PCP - General Internal Medicine 07/01/18 documented as of this encounter
--- OUTSIDE RECORDS SUMMARY | 2023-10-27 15:19 | XMS_ITS | Encounter Summary ---
Author Organization [facility] [place] [address] Care Team Providers Care Farm Field Manager Name Role Phone Nick Martinez MD Primary Care Provider [phone] Encounter Details Date Type Department Care Team (Latest Contact Info) Description 07/02/2023 Travel Social History Tobacco Use Types Packs/Day Years Used Date Smoking Tobacco: Former Smokeless Tobacco: Current Chew Comments:1 can per day. Plan s to quit today 02/04/21 Alcohol Use Standard Drinks/Week Comments Yes 0 (1 standard drink = 0.6 oz pur e alcohol) on occassion only [facility] Utilities Answer Date Recorded In [...] 8:30 AM EDT Infusion Hematology Oncology at [address] [phone] 11/30/2023 8:30 AM EDT Office Visit Hematology/Oncology at [address] [phone] Bisi Hollis BRONC BREAKER [address] [place] [address] DR HEMATOLOGY [place] [address] 11/30/2023 9:00 AM EDT Infusion Hematology Oncology at [address] [address] 12/07/2023 11:15 AM EDT Office Visit [place] [address] Daisy Lloyd PA [facility] DR HEMATOLOGY [place] [address] documented as of this encounter Visit Diagnoses Not on filedocumented in this encounter Care Teams Farm Field Manager Relationship Specialty Start Date End Date Nick Martinez MD [address] [place] [address] PCP - General Internal Medicine 07/01/18 documented as of this encounter
--- OUTSIDE RECORDS SUMMARY | 2023-10-27 15:19 | XMS_ITS | Encounter Summary ---
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 Procedures CT Chest Abdomen Pelvis w Contrast (Generic) Bisi Hollis APRN [address] [place] [address] [place] [address] Referral ID Status Reason Start Date Expiration Date Visits Requested Visits Authorized [id number] New Request Specialty Service Requested 07/25/2023 01/24/2025 1 1 Encounter Details Date Type Department Care Team (Late st Contact Info) Description 07/25/2023 1:30 PM EDT Office Visit Hematology/Oncology at [address] [phone] Bisi Hollis APRN [address] [place] [address] [place] [address] Primary malignant neoplasm of right [...] original note were not included. 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 Bisi Hollis, HAND LENS POLISHER 07/25/2023 Medical Oncology & Hematology [facility] Cancer [facility] CC: Serenity Larson HAND LENS POLISHER HPI/Interval History/Subjective: Last seen 07/04/2023 Throat is [...] History/Support Network: Home situation: Lives with in [facility] with Velvet. 35 years. 3 children and plan to adopt another one through foster care. 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 38 [...] brain was not included in the imaged [id number] on the current study. 05.25.[address] [...] 8:30 AM EDT Infusion Hematology Oncology at [address] [address] 11/30/2023 8:30 AM EDT Office Visit Hematology/Oncology at [address] [phone] Bisi Hollis APRN [address] [place] [address] DR HEMATOLOGY [place] ONCOLOGY [place], [place] [address] 11/30/2023 9:00 AM EDT Infusion Hematology Oncology at [address] [phone] 12/07/2023 11:15 AM EDT Office Visit [place] [address] Daisy Lloyd PA [facility] DR [place] [address] Scheduled Orders Name Type Priority Associated Diagnoses [...] gland documented in this encounter Care Teams Environmental Remediation Specialist Relationship Specialty Start Date End Date Nick Martinez MD [address] [place] [address] PCP - General Internal Medicine 07/01/18 documented as of this encounter
--- OUTSIDE RECORDS SUMMARY | 2023-10-27 15:19 | XMS_ITS | Encounter Summary ---
[place] [address] Care Team Providers Care Street Sprinkler Name Role Phone Nick Martinez MD Primary Care Provider Reason for Referral * Diagnostic Test (Routine) - New Request Specialty Diagnoses / Procedures Referred By Mariana workman Referred To Contact Radiology Diagnoses Secondary malignant neoplasm of brain Procedures MRI Brain wwo Contrast (Generic) Carlos Marie MD [facility] [place] [place] [address] [place] [address] Referral ID Status Reason Start Date Expiration Date Visits Requested Visits Authorized [id number] New Request Specialty Service Requested 08/25/2023 02/23/2025 1 1 Reason for Visit * Reason Comments Follow-up Encounter Details Date Type Department Care Team (Late st Contact Info) Description 08/18/2023 10:00 AM EDT Office [place] [address] Carlos Marie MD [facility] [place] [address] Secondary malignant neoplasm of brain Social History [...] from the original note were not included. [facility] Medicine Radiation Oncology Radiation Oncology Follow-Up Report [...] he is getting systemic treatments up in [facility]. Status: On-treatment (recurrence) Plan: MRI brain in 3-4 months and FU with [facility]. Systemic treatment to continue per medical oncology Carlos Marie MD [facility] Center Radiation Oncology [facility] ([facility]) [facility] [employer] Commission on Cancer (ACS Colt) Accredited Cancer Program [employer] (ACR) Accredited Radiation Oncology Program documented in this encounter Plan of Treatment Upcoming Encounters Date Type Department Care Team (Late st Contact Info) Description 11/10/2023 8:30 AM EDT Infusion Hematology Oncology at [address] [phone] 11/30/2023 8:30 AM EDT Office Visit Hematology/Oncology at [address] [address] Bisi Hollis APRN [address] [place] [address] DR HEMATOLOGY [place] [address] 11/30/2023 9:00 AM EDT Infusion Hematology Oncology at [address] [address] 12/07/2023 11:15 AM EDT Office [place] [address] Daisy Lloyd PA [facility] DR [place] [address] Scheduled Orders Name Type Priority Associated Diagnoses Orde r Schedule MRI Brain wwo Contrast (Generic) Imaging Routine Secondary malignant neoplasm of brain Expected: 11/25/2023, Expires: 12/25/2023 documented as of this encounter Visit Diagnoses Diagnosis 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
--- OUTSIDE RECORDS SUMMARY | 2023-10-27 15:19 | XMS_ITS | Encounter Summary ---
Author Organization [facility] [place] [address] Care Team Providers Care Child Daycare Worker Name Role Phone Nick Martinez MD Primary Care Provider [phone] Encounter Details Date Type Department Care Team (Late st Contact Info) Description 09/01/2023 9:20 PM EDT Ancillary [place] [phone] Bisi Hollis APRN [address] [place] [address] DR HEMATOLOGY AND ONCOLOGY [place], [place] [id number] Social History Tobacco Use Types Packs/Day Years Used Date Smoking Tobacco: Former Smokeless Tobacco: Current Chew Comments:1 can per day. Plan s to quit today 02/04/21 Alcohol Use Standard Drinks/Week Comments Yes 0 (1 standard drink = 0.6 oz pur e alcohol) on occassion only [facility] Utilities Answer Date Recorded In the past 12 months has [employer] electric, gas, oil, or water company threatened [...] 8:30 AM EDT Infusion Hematology Oncology at [address] [phone] 11/30/2023 8:30 AM EDT Office Visit Hematology/Oncology at [address] [phone] Bisi Hollis APRN [address] [place] [address] [place] [address] 11/30/2023 9:00 AM EDT Infusion Hematology Oncology at [address] [phone] 12/07/2023 11:15 AM EDT Office [place] [address] Daisy Lloyd PA [facility] DR HEMATOLOGY [place] [address] documented as of this encounter Procedures Procedure Name Priority Date/Time Associated Diagnosis Comments FILM LIBRARY STORAGE ONLY CT CHEST ABDOMEN PELVIS Routine 09/01/2023 9:17 PM EDT documented in this encounter Results * Film Library- Storage Only CT Chest Abdomen Pelvis (09/01/2023 9:17 PM EDT) Narrative [facility] - 09/01/2023 9:17 PM EDT This exam is auto-finalizing. It's purpose is for storage only. Bisi Hollis APRN IMG FILM LIBRARY ORDERABLES Performing Organization Address City/State/[facility] Co de Phone Number [place], [place] documented in this encounter Visit Diagnoses Not on filedocumented in this encounter Care Teams Child Daycare Worker Relationship Specialty Start Date End Date Nick Martinez MD [address] [place] [address] PCP - General Internal Medicine 07/01/18 documented as of this encounter
--- OUTSIDE RECORDS SUMMARY | 2023-10-27 15:19 | XMS_ITS | Encounter Summary ---
Author Organization [facility] [place] [address] Care Team Providers Care Debug Technician Name Role Phone Nick Martinez MD Primary Care Provider Encounter Details Date Type Department Care Team (Late st Contact Info) Description 08/17/2023 8:30 AM EDT Office Visit Hematology/Oncology at [address] [phone] Bisi Hollis APRN [address] [place] [address] DR HEMATOLOGY AND ONCOLOGY [place], [place] [id number] Primary malignant neoplasm of right upper lobe [...] Recorded In the past 12 months has [employer], gas, oil, or water company threatened to [...] note were not included. 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 Biis Hollis APRN 08/17/2023 Medical Oncology & Hematology [facility] CC: Serenity Larson APRN HPI/Interval History/Subjective: [...] Network: Home situation: Lives with in [facility] with Velvet. 35 years. 3 children and plan to adopt another one through foster care. 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 38 Pk [...] brain was not included in the imaged [id number] on the current study. 05.25.[address] [...] AM EDT Infusion Hematology Oncology at [address] [phone] 11/30/2023 8:30 AM EDT Office Visit Hematology/Oncology at [address] [phone] Bisi Hollis APRN [address] [place] [address] DR [place] [address] 11/30/2023 9:00 AM EDT Infusion Hematology Oncology at [address] [phone] 12/07/2023 11:15 AM EDT Office Visit [place] [address] Daisy Lloyd PA [facility] DR [place] [address] documented as of this encounter Visit Diagnoses Diagnosis Primary malignant neoplasm of right upper lobe of lung Malignant neoplasm of upper lobe, bronchus or lung 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
--- OUTSIDE RECORDS SUMMARY | 2023-10-27 15:19 | XMS_ITS | Encounter Summary ---
Author Organization [facility] [place] [address] Care Team Providers Care Retail Assistant Name Role Phone Nick Martinez MD [...] Pelvis w Contrast (Generic) Boy Tovar MD [facility] DR [place] [address] Referral ID Status Reason Start Date Expiration Date Visits Requested Visits Authorized [id number] New Request Specialty Service Requested 07/04/2023 01/02/2025 1 1 Encounter Details Date Type Department Care Team (Late st Contact Info) Description 07/04/2023 10:00 AM EDT Office Visit Hematology/Oncology at [address] [phone] Boy Tovar MD [facility] DR [place] [address] Bisi Hollis APRN [address] [place] [address] DR [place] [address] Primary malignant neoplasm of right upper lobe [...] original note were not included. 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 35 years. 3 children and plan to adopt another one through foster care. 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 38 Pk [...] brain was not included in the imaged [id number] on the current study. 308/10/2021 3:38 PM [...] 8:30 AM EDT Infusion Hematology Oncology at [address] [phone] 11/30/2023 8:30 AM EDT Office Visit Hematology/Oncology at [address] [phone] Bisi Hollis [address] HEMATOLOGY AND ONCOLOGY [place], [place] [phone] 11/30/2023 9:00 AM EDT Infusion Hematology Oncology at [address] [phone] 12/07/2023 11:15 AM EDT Office Visit [place] [address] Daisy Lloyd PA [facility] DR [place] [address] Scheduled Orders Name Type Priority Associated Diagnoses [...] gland Lymphadenopathy, abdominal Enlargement of lymph nodes documented in this encounter Care Teams Retail Assistant Relationship Specialty Start Date End Date Nick Martinez MD [address] [place] [address] PCP - General Internal Medicine 07/01/18 documented as of this encounter
--- OUTSIDE RECORDS SUMMARY | 2023-10-27 15:19 | XMS_ITS | Encounter Summary ---
[place] [address] Care Team Providers Care Marketing Editor Name Role Phone Nick Martinez MD Primary Care Provider [phone] Encounter Details Date Type Department Care Team (Late st Contact Info) Description 07/18/2023 Telephone Hematology [place] [address] Sandra Brito, RN Social History Tobacco Use Types Packs/Day Years Used Date Smoking Tobacco: Former Smokeless Tobacco: Current Chew Comments:1 can per day. Plan s to quit today 02/04/21 Alcohol Use Standard Drinks/Week Comments Yes 0 (1 standard drink = 0.6 oz pur e alcohol) on occassion only [facility] Utilities Answer Date Recorded In the past 12 months has [employer], gas, oil, or water [facility] threatened to shut off services in your [...] 07/18/2023 2:03 PM EDT Message received from national secretary: Sister on the line reporting SOB. Spoke with patient's sister, Hawa, who is very concerned about Raffy. She reported patient was seen in the ED yesterday at [facility] for significant shortness of breath, even [...] questions or concerns. Update sent to Donaldo Digeo APRN. Received notification from Donaldo Diego APRN that this was handled in [facility] and no further action is required at this time. documented in this encounter Plan of Treatment Upcoming Encounters Date Type Department Care Team (Late st Contact Info) Description 11/10/2023 8:30 AM EDT Infusion Hematology Oncology at [address] [phone] 11/30/2023 8:30 AM EDT Office Visit Hematology/Oncology at [address] [phone] Bisi Hollis APRN [address] [place] [address] DR HEMATOLOGY AND ONCOLOGY [place], [place] [id number] 11/30/2023 9:00 AM EDT Infusion Hematology Oncology at [address] [phone] 12/07/2023 11:15 AM EDT Office Visit [place] [address] Daisy Lloyd PA [facility] DR HEMATOLOGY [place] [address] documented as of this encounter Visit Diagnoses Not on filedocumented in this encounter Care Teams Marketing Editor Relationship Specialty Start Date End Date Nick Martinez MD [address] [place] [address] PCP - General Internal Medicine 07/01/18 documented as of this encounter
--- OUTSIDE RECORDS SUMMARY | 2023-10-27 15:19 | XMS_ITS | Encounter Summary ---
Author Organization [facility] [place] [address] Care Team Providers Care Director Of Corporate Sales Name Role Phone Nick Martinez MD Primary Care Provider [phone] Reason for Visit * Reason Onset Date Comments Follow-up 07/29/2023 Encounter Details Date Type Department Care Team (Late st Contact Info) Description 07/29/2023 Telephone Hematology/Oncology at [address] [phone] Shawna Haley RN Follow-up Social History Tobacco Use Types Packs/Day Years Used Date Smoking Tobacco: Former Smokeless Tobacco: Current Chew Comments:1 can per day. Plan s to quit today 02/04/21 Alcohol Use Standard Drinks/Week Comments Yes 0 (1 standard drink = 0.6 oz pur e alcohol) on occassion only [employer] Utilities Answer Date Recorded In the past 12 months has [employer], gas, oil, or water [employer] threatened to shut off services in your [...] fluids, take 20 minute naps Reinforced to patient/care-backwinder to call facility 27/09 with any new/worsening signs and symptoms orconcerns or questions. Phone number provided. Pt verbalized understanding and is in agreement with plan. documented in this encounter Plan of Treatment Upcoming Encounters Date Type Department Care Team (Late st Contact Info) Description 11/10/2023 8:30 AM EDT Infusion Hematology Oncology at [address] [phone] 11/30/2023 8:30 AM EDT Office Visit Hematology/Oncology at [address] [phone] Bisi Hollis ASSISTANT FRONT OFFICE MANAGER [address] [place] [address] DR HEMATOLOGY AND ONCOLOGY [place], [place] [address] 11/30/2023 9:00 AM EDT Infusion Hematology Oncology at [address] [phone] 12/07/2023 11:15 AM EDT Office [place] [address] Daisy Lloyd PA [facility] DR [place]AT[place] [address] documented as of this encounter Visit Diagnoses Not on filedocumented in this encounter Care Teams Director Of Corporate Sales Relationship Specialty Start Date End Date Nick Martinez MD [address] [place] [address] PCP - General Internal Medicine 07/01/18 documented as of this encounter
--- OUTSIDE RECORDS SUMMARY | 2023-10-27 15:19 | XMS_ITS | Encounter Summary ---
Author Organization [facility] [place] [address] Care Team Providers Care Centerless Grinding Machine Adjuster Name Role Phone Nick Martinez MD Primary Care Provider [phone] Encounter Details Date Type Department Care Team (Late st Contact Info) Description 07/15/2023 Orders Only Hematology [place] [address] Boy Tovar MD [facility] DR [place]EMATOLOGY [place] [address] Primary malignant neoplasm of right upper lobe [...] Recorded In the past 12 months has [employer] electric, gas, oil, or water company [...] 8:30 AM EDT Infusion Hematology Oncology at [address] [phone] 11/30/2023 8:30 AM EDT Office Visit Hematology/Oncology at [address] [phone] Bisi Hollis APRN [address] [place] [address] DR [place] [address] 11/30/2023 9:00 AM EDT Infusion Hematology Oncology at [address] [address] 12/07/2023 11:15 AM EDT Office Visit [place] [address] Daisy Lloyd PA [facility] DR [place] [address] documented as of this encounter Visit Diagnoses Diagnosis Primary malignant neoplasm of right upper lobe of lung Malignant neoplasm of upper lobe, bronchus or lung Localized swelling of right lower extremity documented in this encounter Care Teams Centerless Grinding Machine Adjuster Relationship Specialty Start Date End Date Nick Martinez MD [address] [place] [address] PCP - General Internal Medicine 07/01/18 documented as of this encounter
--- OUTSIDE RECORDS SUMMARY | 2023-10-27 15:19 | XMS_ITS | Encounter Summary ---
Author Organization [facility] [place] [address] Care Team Providers Care Contribution Solicitor Name Role Phone Nick Martinez MD Primary Care Provider [phone] Encounter Details Date Type Department Care Team (Late st Contact Info) Description 07/17/2023 Telephone Hematology [place] [address] Devi Acevedo MD [facility] DR HEMATOLOGY/[place] [address] Social History Tobacco Use Types Packs/Day Years Used Date Smoking Tobacco: Former Smokeless Tobacco: Current Chew Comments:1 can per day. Plan s to quit today 02/04/21 Alcohol Use Standard Drinks/Week Comments Yes 0 (1 standard drink = 0.6 oz pur e alcohol) on occassion only [facility] Utilities Answer Date Recorded In the past 12 months has [employer] electric, gas, oil, or water company threatened [...] Devi Acevedo MD Hematology/ Medical Oncology Fellow [facility] Page #[phone] documented in this encounter Plan of Treatment Upcoming Encounters Date Type Department Care Team (Late st Contact Info) Description 11/10/2023 8:30 AM EDT Infusion Hematology Oncology at [address] [phone] 11/30/2023 8:30 AM EDT Office Visit Hematology/Oncology at [address] [phone] Bisi Hollis APRN [address] [place] [address] DR HEMATOLOGY AND ONCOLOGY [place], [place] [phone] 11/30/2023 9:00 AM EDT Infusion Hematology Oncology at [address] [phone] 12/07/2023 11:15 AM EDT Office Visit Radiation [place] [address] Daisy Lloyd PA [facility] DR HEMATOLOGY [place] [address] documented as of this encounter Visit Diagnoses Not on filedocumented in this encounter Care Teams Contribution Solicitor Relationship Specialty Start Date End Date Nick Martinez MD [address] [place] [address] PCP - General Internal Medicine 07/01/18 documented as of this encounter
--- OUTSIDE RECORDS SUMMARY | 2023-10-27 15:19 | XMS_ITS | Encounter Summary ---
Author Organization Count Includes [facility] Address [facility] [place] [address] Care Team Providers Care Mechanical Engineering Lecturer Name Role Phone Nick Martinez MD Primary Care Provider [phone] Encounter Details Date Type Department Care Team (Late st Contact Info) Description 07/08/2023 Orders Only [place] [address] Boy Tovar MD [facility] [place] [address] Social History Tobacco Use Types Packs/Day Years Used Date Smoking Tobacco: Former Smokeless Tobacco: Current Chew Comments:1 can per day. Plan s to quit today 02/04/21 Alcohol Use Standard Drinks/Week Comments Yes 0 (1 standard drink = 0.6 oz pur e alcohol) on occassion only [facility] Utilities Answer Date Recorded In the past 12 months has [employer] electric, gas, oil, or water company threatened [...] 8:30 AM EDT Infusion Hematology Oncology at [address] [phone] 11/30/2023 8:30 AM EDT Office Visit Hematology/Oncology at [address] [phone] Bisi Hollis APRN [address] [place] [address] DR [place] [address] 11/30/2023 9:00 AM EDT Infusion Hematology Oncology at [address] [phone] 12/07/2023 11:15 AM EDT Office Visit [place] [address] Daisy Lloyd PA [facility] DR HEMATOLOGY [place] [address] documented as of this encounter Visit Diagnoses Not on filedocumented in this encounter Care Teams Mechanical Engineering Lecturer Relationship Specialty Start Date End Date Nick Martinez MD [address] [place] [address] PCP - General Internal Medicine 07/01/18 documented as of this encounter
--- OUTSIDE RECORDS SUMMARY | 2023-10-27 15:19 | XMS_ITS | Encounter Summary ---
Author Organization Formerly [facility] [place] [address] Care Team Providers Care Scraper Meat Name Role Phone Nick Martinez MD [...] HCL, 25MCG, INJECTION (ALOXI) Boy Tovar MD [address] [place] [address] DR HEMATOLOGY [place] [address] Boy Tovar MD [address] [place] [address] DR HEMATOLOGY [place] [address] Referral ID Status Reason Start Date Expiration Date V isits Requested Visits Authorized [id number] Authorized 06/27/2023 11/27/2023 99 99 Encounter Details Date Type Department Care Team (Late st Contact Info) Description 07/04/2023 10:30 AM EDT Infusion Hematology Oncology at [address] [phone] Social History Tobacco Use Types Packs/Day Years Used Date Smoking Tobacco: Former Smokeless Tobacco: Current Chew Comments:1 can per day. Plan s to quit today 02/04/21 Alcohol Use Standard Drinks/Week Comments Yes 0 (1 standard drink = 0.6 oz pur e alcohol) on occassion only [facility] Utilities Answer Date Recorded In the past 12 months has th e [employer], gas, oil, or water [employer] threatened to shut off services in your [...] AM EDT Infusion Hematology Oncology at [address] [phone] 11/30/2023 8:30 AM EDT Office Visit Hematology/Oncology at [address] [phone] Bisi Hollis APRN [address] [place] [address] DR HEMATOLOGY AND ONCOLOGY [place], [place] [address] 11/30/2023 9:00 AM EDT Infusion Hematology Oncology at [address] [phone] 12/07/2023 11:15 AM EDT Office Visit [place] [address] Daisy Lloyd PA [facility] DR HEMATOLOGY [place] [address] documented as of this encounter Visit Diagnoses Not on filedocumented in this encounter Care Teams Scraper Meat Relationship Specialty Start Date End Date Nick Martinez MD [address] [place] [id number] PCP - General Internal Medicine 07/01/18 documented as of this encounter
--- OUTSIDE RECORDS SUMMARY | 2023-10-27 15:19 | XMS_ITS | Encounter Summary ---
Author Organization Formerly [facility] [place] [address] Care Team Providers Care Retirement Administrator Name Role Phone Nick Martinez MD Primary Care Provider [phone] Reason for Visit * Reason Comments Chemotherapy [...] HCL, 25MCG, INJECTION (ALOXI) Boy Tovar MD [address] [place] [address] DR HEMATOLOGY [place] [address] Boy Tovar MD [address] [place] [address] DR HEMATOLOGY [place] [address] Referral ID Status Reason Start Date Expiration Date V isits Requested Visits Authorized [id number] Authorized 06/27/2023 11/27/2023 99 99 Encounter Details Date Type Department Care Team (Late st Contact Info) Description 08/17/2023 9:00 AM EDT Infusion Hematology Oncology at [address] [phone] Secondary malignant neoplasm of brain; Primary malignant neoplasm of right upper lobe of lung Social History Tobacco Use Types Packs/Day Years Used Date Smoking Tobacco: Former Smokeless Tobacco: Current Chew Comments:1 can per day. Plan s to quit today 02/04/21 Alcohol Use Standard Drinks/Week Comments Yes 0 (1 standard drink = 0.6 oz pur e alcohol) on occassion only [facility] Utilities Answer Date Recorded In [...] 8:30 AM EDT Infusion Hematology Oncology at [address] [phone] 11/30/2023 8:30 AM EDT Office Visit Hematology/Oncology at [address] [phone] Bisi Hollis APRN [address] [place] [address] DR HEMATOLOGY [place] [address] 11/30/2023 9:00 AM EDT Infusion Hematology Oncology at [address] [phone] 12/07/2023 11:15 AM EDT Office [place] [address] Daisy Lloyd PA [facility] DR HEMATOLOGY [place] [address] documented as of this encounter Visit Diagnoses [...] 2 minutes is a recommendation from the bread jockey. Administer prior to chemotherapy., Routine Given 08/17/2023 [...] mL/hr documented in this encounter Care Teams Retirement Administrator Relationship Specialty Start Date End Date Nick Martinez MD [address] [place] [address] PCP - General Internal Medicine 07/01/18 documented as of this encounter
--- OUTSIDE RECORDS SUMMARY | 2023-10-27 15:19 | XMS_ITS | Encounter Summary ---
Author Organization [facility] [address] Care Team Providers Care Supply Controller Name Role Phone Nick Martinez MD Primary Care Provider [phone] Reason for Visit * Reason Onset Date Comments Follow-up 08/31/2023 Encounter Details Date Type Department Care Team (Late st Contact Info) Description 08/31/2023 Telephone Hematology/Oncology at [address] [phone] Mannie Taylor RN Follow-up Social History Tobacco Use Types Packs/Day Years Used Date Smoking Tobacco: Former Smokeless Tobacco: Current Chew Comments:1 can per day. Plan s to quit today 02/04/21 Alcohol Use Standard Drinks/Week Comments Yes 0 (1 standard drink = 0.6 oz pur e alcohol) on occassion only [facility] Utilities Answer Date Recorded In the past 12 months has [email or web address], gas, oil, or water [employer] threatened to shut off services in your [...] he needed to Best call back number [phone] documented in this encounter Plan of Treatment Upcoming Encounters Date Type Department Care Team (Late st Contact Info) Description 11/10/2023 8:30 AM EDT Infusion Hematology Oncology at [address] [phone] 11/30/2023 8:30 AM EDT Office Visit Hematology/Oncology at [address] [phone] Bisi Hollis APRN [address] [place] [address] DR [place] [address] 11/30/2023 9:00 AM EDT Infusion Hematology Oncology at [address] [address] 12/07/2023 11:15 AM EDT Office [place] [address] Daisy Lloyd PA [facility] DR HEMATOLOGY [place] [address] documented as of this encounter Visit Diagnoses Not on filedocumented in this encounter Care Teams Supply Controller Relationship Specialty Start Date End Date Nick Martinez MD [address] [place] [address] PCP - General Internal Medicine 07/01/18 documented as of this encounter
--- OUTSIDE RECORDS SUMMARY | 2023-10-27 15:20 | XMS_ITS | Encounter Summary ---
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 The [employer] system was used to monitor for patient [...] 8:30 AM EDT Infusion Hematology Oncology at [address] [phone] 11/30/2023 8:30 AM EDT Office Visit Hematology/Oncology at [address] [phone] Bisi Hollis APRN [address] [place] [address] [place] [address] 11/30/2023 9:00 AM EDT Infusion Hematology Oncology at [address] [phone] 12/07/2023 11:15 AM EDT Office [place] [address] Daisy Lloyd PA [facility] DR [place] [address] documented as of this encounter Visit Diagnoses Diagnosis 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
--- OUTSIDE RECORDS SUMMARY | 2023-10-27 15:20 | XMS_ITS | Encounter Summary ---
[place] [address] Care Team Providers Care Principal Trainer Name Role Phone Nick Martinez MD Primary Care Provider [phone] Encounter Details Date Type Department Care Team (Latest Contact Info) Description 06/02/2023 8:15 AM EDT Laboratory Appointment Lab [address] [place] [phone] Primary malignant neoplasm of right upper lobe of lung Social History Tobacco Use Types Packs/Day Years Used Date Smoking Tobacco: Former Smokeless Tobacco: Current Chew Comments:1 can per day. Plan s to quit today 02/04/21 Alcohol Use Standard Drinks/Week Comments Yes 0 (1 standard drink = 0.6 oz pur e alcohol) on occassion only [employer] Utilities Answer Date Recorded In the past 12 months has [employer], gas, oil, or water [employer] threatened to shut off services in your [...] 8:30 AM EDT Infusion Hematology Oncology at [address] [phone] 11/30/2023 8:30 AM EDT Office Visit Hematology/Oncology at [address] [phone] Bisi Hollis APRN [address] [place] [address] DR HEMATOLOGY [place] [address] 11/30/2023 9:00 AM EDT Infusion Hematology Oncology at [address] [phone] 12/07/2023 11:15 AM EDT Office Visit [place] [address] Daisy Lloyd PA [facility] DR HEMATOLOGY [place] [address] documented as of this encounter Procedures Procedure Name Priority Date/Time Associated Diagnosis Comments SCAN, PERIPHERAL BLOOD STAT 03/28/202 4 8:08 AM EDT HEMOGRAM STAT 06/02/2023 8:08 [...] Peripheral Blood (06/02/2023 8:08 AM EDT) Pathologist [facility] Plat estimate Normal [facility] RBC Morphology Abnormal [facility] Ovalocytes 1-5 /HPF [facility] Blood 06/02/2023 8:08 AM EDT 06/02/2023 8:12 AM EDT Narrative Resulting Agency Comment Spec In Lab Ella Diego [employer] HEMATOLOGY ORDERAB LES [facility] [place] [address] * (ABNORMAL) Differential, Automated (06/02/2023 8:08 AM EDT) Neutrophil % 77.1 % [facility] Neutrophil Absolute 10.47(H) 1.70 - 6.10 x10(3)/mc L [facility] Lymph % 6.3 % [facility] Lymphocytes Abs 0.8(L) 0.9 - 3.2 x10(3)/[facility] Monocyte % 8.7 % [facility] Monocyte Abs 1.2(H) 0.3 - 0.9 x10(3)/[facility] Eos % 0.1 % [facility] Eosinophils Abs 0.0 0.0 - 0.4 x10(3)/[facility] Basophil % 0.7 % [facility] Baso Absolute 0.1 0.0 - 0.1 x10(3)/[facility] Immature Gran % 7.10 % [facility] Comment: Immature granulocytes(IG's)percentage and absolute count will include metamyelocytes, myelocytes, and promyelocytes. Blood smears from CBCs yielding IG's will be scanned manually for concordance. If this scan disagrees with the automated IG or if promyelocytes are noted, a manual differential will be performed. Immature Gran Absolute 0.97(H) 0.00 - 0.04 x10(3)/[facility] Blood 06/02/2023 8:08 AM EDT 06/02/2023 8:12 AM EDT Narrative Resulting Agency Comment Spec In Lab Ella Diego [employer] HEMATOLOGY ORDERAB LES [facility] [place] [address] * (ABNORMAL) Hemogram (06/02/2023 8:08 AM EDT) White Blood Cell 13.6(H) 4.0 - 9.5 x10(3)/[facility] Red Blood Cell 4.55(L) 4.58 - 5.54 x10(6)/[facility] Hemoglobin 14.3 13.7 - 16.5 g/dL [facility] Hematocrit 39.9(L) 40.5 - 48.5 % [facility] Mean Cell Volume 87.7 82.9 - 93.[address] [facility] Mean Cell Hemoglobin 31.4 27.5 - 32.[address] [facility] Mean Cell Hemoglobin Concentration 35.8(H) 32.0 - 35.7 g/dL [facility] Platelet 226 145 - 357 x10(3)/mc L [facility] RDW Standard Deviation 43.6 36.0 - 45.[address] [facility] RDW coefficient of variation 13.6 11.4 - 13.8 % [facility] Mean Platelet Volume 8.4 7.6 - 12.[address] [facility] NRBC% auto 0.0 % [facility] NRBC Absolute 0.000 0.000 - 0.000 x10(3)/mc L [facility] Blood 06/02/2023 8:08 AM EDT 06/02/2023 8:12 AM EDT Narrative Resulting Agency Comment Spec In Lab Ella Diego [employer] HEMATOLOGY ORDERAB LES [facility] [place] [address] * (ABNORMAL) Comprehensive metabolic panel (non-fasting) (06/02/2023 8:08 AM EDT) Glucose 98 65 - 199 mg/dL [facility] Comment:Diabetes: >=200 mg/d L plus symptoms Blood Urea Nitrogen 21(H) 10 - 20 mg/dL [facility] Creatinine 1.04 0.80 - 1.50 mg/dL [facility] Sodium 137 135 - 145 mmol/L [facility] Potassium 4.3 3.5 - 5.0 mmol/L [facility] Comment: Please note: ??Patients with WBC >100,000 may have falsely elevated Potassium levels. ??For accurate Potassium quantification in these patients send serum separator tube (gold top) for subsequent determinations. ??Contact the Clinical Chemistry Laboratory if there are any questions. Chloride 99 98 - 107 mmol/L [facility] Carbon Dioxide 28 22 - 31 mmol/L [facility] Anion Gap 10 5 - 15 mmol/L [facility] Calcium 9.8 8.5 - 10.5 mg/dL [facility] Protein, Total 7.1 6.1 - 8.0 g/dL [facility] Albumin 4.3 3.2 - 5.2 g/dL [facility] Aspartate Aminotransferase 24 0 - 39 unit/L [facility] Alanine Aminotransferase 39 0 - 55 unit/L [facility] Alkaline Phosphatase 64 40 - 130 unit/L [facility] Bilirubin, Total 0.3 0.2 - 1.3 mg/dL [facility] Est Glomerular Filtration Rate 80 >=60 mL/min/1. 73 m?? [facility] Comment: This patient's estimated GFR [...] Lab Ella Diego APRN CHEMISTRY ORDERABL ES [facility] [place] [address] * Magnesium (06/02/2023 8:08 AM EDT) Magnesium 0.93 0.69 - 1.07 mmol/L [facility] Blood 06/02/2023 8:08 AM EDT 06/02/2023 8:12 AM EDT Narrative Resulting Agency Comment Spec In Lab Ella Diego APRN CHEMISTRY ORDERABL ES Performing Organization Address [facility] de Phone Number [facility] [place] [address] * TSH (06/02/2023 8:08 AM EDT) [facility] Thyroid Stimulating Hormone 3.09 0.27 - 4.20 mcIU/mL [facility] Comment: Reference Interval (mcIU/mL): Females: ??First Trimester: 0.23-3.88 ??Second Trimester: 0.22-3.90 ??Third Trimester: 0.44-4.66 Blood 06/02/2023 8:08 AM EDT 06/02/2023 8:12 AM EDT Narrative Resulting Agency Comment Spec In Lab Ella Diego APRN CHEMISTRY ORDERABL ES Performing Organization Address [facility] Phone Number [facility] [place] [address] * T4, free (06/02/2023 8:08 AM EDT) Free T4 1.07 0.93 - 1.70 ng/dL [facility] Comment: Reference Interval (ng/dL): Females: ??First Trimester: 0.97-1.68 ??Second Trimester: 0.77-1.51 ??Third Trimester: 0.77-1.49 Blood 06/02/2023 8:08 AM EDT 06/02/2023 8:12 AM EDT Narrative Resulting Agency Comment Spec In Lab Ella Diego APRN CHEMISTRY ORDERABL ES Performing Organization Address [facility] [place] [address] documented in this encounter Visit Diagnoses Diagnosis Primary malignant neoplasm of right upper lobe of lung Malignant neoplasm of upper lobe, bronchus or lung documented in this encounter Care Teams Principal Trainer Relationship Specialty Start Date End Date Nick Martinez MD [address] [place] [address] PCP - General Internal Medicine 07/01/18 documented as of this encounter
--- OUTSIDE RECORDS SUMMARY | 2023-10-27 15:20 | XMS_ITS | Encounter Summary ---
[place] [address] Care Team Providers Care Show Host Or Hostess Name Role Phone Nick Martinez MD Primary Care Provider [phone] Encounter Details Date Type Department Care Team (Late st Contact Info) Description 05/24/2023 Telephone [place] [address] Justina Kline RN Social History Tobacco Use Types Packs/Day Years Used Date Smoking Tobacco: Former Smokeless Tobacco: Current Chew Comments:1 can per day. Plan s to quit today 02/04/21 Alcohol Use Standard Drinks/Week Comments Yes 0 (1 standard drink = 0.6 oz pur e alcohol) on occassion only [facility] Utilities Answer Date Recorded In the past 12 months has [employer], gas, oil, or water [employer] threatened to shut off services in your [...] She would appreciate a call back at [phone]. T/C to Hawa: Hawa states that patient [...] AM EDT Infusion Hematology Oncology at [address] [phone] 11/30/2023 8:30 AM EDT Office Visit Hematology/Oncology at [address] [phone] Bisi Hollis APR[address] HEMATOLOGY AND ONCOLOGY [place] [phone] 11/30/2023 9:00 AM EDT Infusion Hematology Oncology at [address] [phone] 12/07/2023 11:15 AM EDT Office Visit [place] [address] Daisy Lloyd PA [facility] DR HEMATOLOGY [place] [address] documented as of this encounter Visit Diagnoses Not on filedocumented in this encounter Care Teams Show Host Or Hostess Relationship Specialty Start Date End Date Nick Martinez MD [address] [place] [address] PCP - General Internal Medicine 07/01/18 documented as of this encounter
--- OUTSIDE RECORDS SUMMARY | 2023-10-27 15:20 | XMS_ITS | Encounter Summary ---
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 Plan s to quit today 02/04/21 Alcohol Use Standard Drinks/Week Comments Yes 0 (1 standard drink = 0.6 oz pur e alcohol) on occassion only [facility] Utilities Answer Date Recorded In [...] face mask was applied for immobilization. The [employer] system was used to monitor for patient [...] 8:30 AM EDT Infusion Hematology Oncology at [address] [phone] 11/30/2023 8:30 AM EDT Office Visit Hematology/Oncology at [address] [phone] Bisi Hollis APRN [address] [place] [address] DR HEMATOLOGY AND ONCOLOGY [place], [place] [address] 11/30/2023 9:00 AM EDT Infusion Hematology Oncology at [address] [phone] 12/07/2023 11:15 AM EDT Office Visit [place] [address] Daisy Lloyd PA [facility] DR [place] [address] documented as of this encounter Visit Diagnoses Diagnosis 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
--- OUTSIDE RECORDS SUMMARY | 2023-10-27 15:20 | XMS_ITS | Encounter Summary ---
Author Organization [facility] [place] [address] Care Team Providers Care Side Door Man Name Role Phone Nick Martinez MD Primary Care Provider [phone] Encounter Details Date Type Department Care Team (Late st Contact Info) Description 05/13/2023 Orders [place] [address] Carlos Marie MD [facility] [place] [address] Social History Tobacco Use Types Packs/Day Years Used Date Smoking Tobacco: Former Smokeless Tobacco: Current Chew Comments:1 can per day. Plan s to quit today 02/04/21 Alcohol Use Standard Drinks/Week Comments Yes 0 (1 standard drink = 0.6 oz pur e alcohol) on occassion only [facility] Utilities Answer Date Recorded In the past 12 months has [employer], gas, oil, or water company threatened [...] AM EDT Infusion Hematology Oncology at [address] [phone] 11/30/2023 8:30 AM EDT Office Visit Hematology/Oncology at [address] [phone] Bisi Hollis APRN [address] [place] [address] DR HEMATOLOGY [place] [address] 11/30/2023 9:00 AM EDT Infusion Hematology Oncology at [address] [phone] 12/07/2023 11:15 AM EDT Office [place] [address] Daisy Lloyd PA [facility] DR HEMATOLOGY [place] [address] documented as of this encounter Visit Diagnoses Not on filedocumented in this encounter Care Teams Side Door Man Relationship Specialty Start Date End Date Nick Martinez MD [address] [place] [address] PCP - General Internal Medicine 07/01/18 documented as of this encounter
--- OUTSIDE RECORDS SUMMARY | 2023-10-27 15:20 | XMS_ITS | Encounter Summary ---
[place] [address] Care Team Providers Care Compliance Intern Name Role Phone Nick Martinez MD Primary Care Provider [phone] Reason for Visit * Reason Comments Procedure SRS * Consultation (Routine) - Closed Specialty Diagnoses / Procedures Referred By Mariana workman Referred To Contact Radiation Oncology Diagnoses Secondary malignant neoplasm of brain Procedures Simulation for Radiation Therapy Planning Carlos Marie MD [facility] [place] [address] [facility] [place] [address] Referral ID Status Reason Start Date Expiration Date V isits Requested Visits Authorized [id number] Closed Consult, Test & Treat 05/11/2023 06/11/2023 4 4 Encounter Details Date Type Department Care Team (Latest Contact Info) Description 05/19/2023 3:15 PM EDT Procedure visit [place] [address] Carlos Marie MD [facility] [place] [address] Secondary malignant neoplasm of brain [...] new problems with walking/balance Call us at [phone] during normal business. If you need to call us after normal business hours we can be reached at [phone] and ask for the Radiation Oncologist vamp strap ironer. You may use email with ???[email or web address]?? to contact us at any time for more routine matters. Instructions for dexamethasone: As Instructed by Dr. Marie documented in this encounter Progress Notes * Carlos Marie MD - 05/19/2023 3:15 PM EDT Images from the original note were not included. [facility] Medicine Radiation Oncology Radiation Oncology Hypofractionated [...] needed. he was monitored continuously with the [employer] RT system for excessive motion. A member [...] questions/concerns in the meantime. Carlos Marie MD [facility] Radiation Oncology National Cancer [place] ([facility]) [facility] [employer] Commission on Cancer (ACS [place]) Accredited Cancer Program [employer] (ACR) Accredited Radiation Oncology Program documented in this encounter Plan of Treatment Upcoming Encounters Date Type Department Care Team (Late st Contact Info) Description 11/10/2023 8:30 AM EDT Infusion Hematology Oncology at [address] [phone] 11/30/2023 8:30 AM EDT Office Visit Hematology/Oncology at [address] [phone] Bisi Hollis APRN [address] [place] [address] DR [place] [address] 11/30/2023 9:00 AM EDT Infusion Hematology Oncology at [address] [phone] 12/07/2023 11:15 AM EDT Office Visit [place] [phone] Daisy Lloyd PA [facility] DR HEMATOLOGY [place] [address] documented as of this encounter Visit Diagnoses Diagnosis 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
--- OUTSIDE RECORDS SUMMARY | 2023-10-27 15:20 | XMS_ITS | Encounter Summary ---
[place] [address] Care Team Providers Care Film Color Tester Name Role Phone Nick Martinez MD Primary Care Provider [phone] Encounter Details Date Type Department Care Team (Latest Contact Info) Description 05/23/2023 1:40 PM EDT Laboratory Appointment Lab [address] [place] [address] Secondary malignant neoplasm of brain Social History Tobacco Use Types Packs/Day Years Used Date Smoking Tobacco: Former Smokeless Tobacco: Current Chew Comments:1 can per day. Plan s to quit today 02/04/21 Alcohol Use Standard Drinks/Week Comments Yes 0 (1 standard drink = 0.6 oz pur e alcohol) on occassion only [facility] Utilities Answer Date Recorded In the past 12 months has [employer], gas, oil, or water [employer] threatened to shut off services in your [...] 8:30 AM EDT Infusion Hematology Oncology at [address] [phone] 11/30/2023 8:30 AM EDT Office Visit Hematology/Oncology at [address] [phone] Bisi Hollis APRN [address] [place] [address] DR [place] [address] 11/30/2023 9:00 AM EDT Infusion Hematology Oncology at [address] [phone] 12/07/2023 11:15 AM EDT Office Visit [place] [address] Daisy Lloyd PA [facility] DR [place] [address] documented as of this encounter Procedures Procedure Name Priority Date/Time Associated Diagnosis Comments LEVETIRACETAM LEVEL Routine 05/23/2023 1 :48 PM EDT Secondary malignant neoplasm of brain COMPREHENSIVE METABOLIC PANEL Routine 05/23/2023 1:48 PM EDT Secondary malignant neoplasm of brain documented in this encounter Results * (ABNORMAL) Levetiracetam level (05/23/2023 1:48 PM EDT) Levetiracetam Lvl (JULY) 3.7(L) 10.0 - 40.0 mcg/mL [facility] Comment: ADDITIONAL INFORMATION This test was developed and its performance characteristics determined by [facility] in a manner consistent with CLIA requirements. This test has not been cleared or approved by the U.S. Food and Drug Administration. Test Performed by: [facility] [place] [address] Aerial Sprayer: Saad Vidal M.D. Ph.D.; CLIA# [id number] Blood 05/23/2023 1:48 PM EDT 05/23/2023 4:09 PM EDT Narrative Resulting Agency Comment Spec In Lab Carlos Marie MD LAB SEND OUT ORDERAB LES [facility] [place] [address] * (ABNORMAL) Comprehensive metabolic panel (non-fasting) (05/23/2023 1:48 PM EDT) Glucose 115 65 - 199 mg/dL [facility] Comment:Diabetes: >=200 mg/d L plus symptoms Blood Urea Nitrogen 18 10 - 20 mg/dL [facility] Creatinine 0.98 0.80 - 1.50 mg/dL [facility] Sodium 137 135 - 145 mmol/L [facility] Potassium 4.1 3.5 - 5.0 mmol/L [facility] Comment: Please note: ??Patients with WBC >100,000 may have falsely elevated Potassium levels. ??For accurate Potassium quantification in these patients send serum separator tube (gold top) for subsequent determinations. ??Contact the Clinical Chemistry Laboratory if there are any questions. Chloride 99 98 - 107 mmol/L [facility] Carbon Dioxide 28 22 - 31 mmol/L [facility] Anion Gap 10 5 - 15 mmol/L [facility] Calcium 9.0 8.5 - 10.5 mg/dL [facility] Protein, Total 6.3 6.1 - 8.0 g/dL [facility] Albumin 4.1 3.2 - 5.2 g/dL [facility] Aspartate Aminotransferase Not Perf 0 - 39 [facility] Comment:Unable to quantitate due to sample hemolysis. Sample redraw suggested. Alanine Aminotransferase 62(H) 0 - 55 unit/L [facility] Alkaline Phosphatase 72 40 - 130 unit/L [facility] Bilirubin, Total 0.3 0.2 - 1.3 mg/dL [facility] Est Glomerular Filtration Rate 86 >=60 mL/min/1. 73 m?? 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
--- OUTSIDE RECORDS SUMMARY | 2023-10-27 15:20 | XMS_ITS | Encounter Summary ---
[place] [address] Care Team Providers Care Group Leader Name Role Phone Nick Martinez MD Primary Care Provider [phone] Encounter Details Date Type Department Care Team (Late st Contact Info) Description 05/13/2023 Telephone [place] [address] Deepa Landeros, RN Social History [...] Recorded In the past 12 months has [employer], gas, oil, or water [employer] threatened to shut off services in your [...] refill of his Nystatin suspension called into [employer] in [facility]. T/C To Patient: [...] 8:30 AM EDT Infusion Hematology Oncology at [address] [phone] 11/30/2023 8:30 AM EDT Office Visit Hematology/Oncology at [address] [phone] Bisi Hollis APRN [address] [place] [address] DR HEMATOLOGY [place] [address] 11/30/2023 9:00 AM EDT Infusion Hematology Oncology at [address] [phone] 12/07/2023 11:15 AM EDT Office Visit [place] [address] Daisy Lloyd PA [facility] DR [place] [address] documented as of this encounter Visit Diagnoses Not on filedocumented in this encounter Care Teams Group Leader Relationship Specialty Start Date End Date Nick Martinez MD [address] [place] [address] PCP - General Internal Medicine 07/01/18 documented as of this encounter
--- OUTSIDE RECORDS SUMMARY | 2023-10-27 15:20 | XMS_ITS | Encounter Summary ---
Author Organization [facility] [place] [address] Care Team Providers Care Tack Picker Name Role Phone Nick Martinez MD Primary Care Provider [phone] Encounter Details Date Type Department Care Team (Late st Contact Info) Description 05/30/2023 3:25 PM EDT Ancillary Procedure [place] [address] Carlos Marie MD [facility] [place] [address] Social History Tobacco Use Types Packs/Day Years Used Date Smoking Tobacco: Former Smokeless Tobacco: Current Chew Comments:1 can per day. Plan s to quit today 02/04/21 Alcohol Use Standard Drinks/Week Comments Yes 0 (1 standard drink = 0.6 oz pur e alcohol) on occassion only [facility] Utilities Answer Date Recorded In the past 12 months has [employer], gas, oil, or water company threatened [...] AM EDT Infusion Hematology Oncology at [address] [phone] 11/30/2023 8:30 AM EDT Office Visit Hematology/Oncology at [address] [phone] Bisi Hollis APRN [address] [place] [address] DR HEMATOLOGY [place] [address] 11/30/2023 9:00 AM EDT Infusion Hematology Oncology at [address] [phone] 12/07/2023 11:15 AM EDT Office Visit [place] [address] Daisy Lloyd PA [facility] DR [place] [address] documented as of this encounter Procedures Procedure Name Priority Date/Time Associated Diagnosis Comments FILM LIBRARY STORAGE ONLY CT HEAD Routine 05/30/2023 3:22 PM EDT documented in this encounter Results * Film Library- Storage Only CT Head (05/30/2023 3:22 PM EDT) Narrative RAD - 05/30/2023 3:22 PM EDT This exam is auto-finalizing. It's purpose is for storage only. Carlos Marie MD IMG FILM LIBRARY ORD ERABLES Performing Organization Address City/State/[facility] Co de Phone Number [place], [place] documented in this encounter Visit Diagnoses Not on filedocumented in this encounter Care Teams Tack Picker Relationship Specialty Start Date End Date Nick Martinez MD [address] [place] [address] PCP - General Internal Medicine 07/01/18 documented as of this encounter
--- OUTSIDE RECORDS SUMMARY | 2023-10-27 15:20 | XMS_ITS | Encounter Summary ---
[place] [address] Care Team Providers Care Health And Wellness Sales Consultant Name Role Phone Nick Martinez MD Primary Care Provider [phone] Encounter Details Date Type Department Care Team (Late st Contact Info) Description 06/01/2023 Telephone Hematology [place] [address] James Javier RN Social History Tobacco Use Types Packs/Day Years Used Date Smoking Tobacco: Former Smokeless Tobacco: Current Chew Comments:1 can per day. Plan s to quit today 02/04/21 Alcohol Use Standard Drinks/Week Comments Yes 0 (1 standard drink = 0.6 oz pur e alcohol) on occassion only [facility] Utilities Answer Date Recorded In the past 12 months has [employer], gas, oil, or water [employer] threatened to shut off services in your [...] 06/01/2023 9:46 AM EDT Message receive from [place]: He is having severe muscle cramps in [...] BID yesterday and Bentyl. Hawa spoke with director of distribution on the weekend and he recommended to [...] AM EDT Infusion Hematology Oncology at [address] [phone] 11/30/2023 8:30 AM EDT Office Visit Hematology/Oncology at [address] [phone] Bisi Hollis [address] HEMATOLOGY AND ONCOLOGY [place], [place] [address] 11/30/2023 9:00 AM EDT Infusion Hematology Oncology at [address] [phone] 12/07/2023 11:15 AM EDT Office Visit [place] [address] Daisy Lloyd PA [facility] DR HEMATOLOGY [place] [address] documented as of this encounter Visit Diagnoses Not on filedocumented in this encounter Care Teams Health And Wellness Sales Consultant Relationship Specialty Start Date End Date Nick Martinez MD [address] [place] [address] PCP - General Internal Medicine 07/01/18 documented as of this encounter
--- OUTSIDE RECORDS SUMMARY | 2023-10-27 15:20 | XMS_ITS | Encounter Summary ---
Author Organization [facility] [place] [address] Care Team Providers Care Interactive Account Manager Name Role Phone Nick Martinez MD Primary Care Provider [phone] Encounter Details Date Type Department Care Team (Late st Contact Info) Description 05/30/2023 Orders Only [place] [address] Charles Wilson MD [facility] [place] [address] Secondary malignant neoplasm of brain Social History Tobacco Use Types Packs/Day Years Used Date Smoking Tobacco: Former Smokeless Tobacco: Current Chew Comments:1 can per day. Plan s to quit today 02/04/21 Alcohol Use Standard Drinks/Week Comments Yes 0 (1 standard drink = 0.6 oz pur e alcohol) on occassion only [facility] Utilities Answer Date Recorded In the past 12 months has [employer], gas, oil, or water company threatened [...] 8:30 AM EDT Infusion Hematology Oncology at [address] [phone] 11/30/2023 8:30 AM EDT Office Visit Hematology/Oncology at [address] [phone] Bisi Hollis APRN [address] [place] [address] DR HEMATOLOGY AND ONCOLOGY [place], [place] [address] 11/30/2023 9:00 AM EDT Infusion Hematology Oncology at [address] [phone] 12/07/2023 11:15 AM EDT Office Visit [place] [address] Daisy Lloyd PA [facility] DR [place] [address] documented as of this encounter Visit Diagnoses Diagnosis 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
--- OUTSIDE RECORDS SUMMARY | 2023-10-27 15:20 | XMS_ITS | Encounter Summary ---
Author Organization [facility] [place] [address] Care Team Providers Care Radiographer Name Role Phone Nick Martinez MD Primary Care Provider [phone] Encounter Details Date Type Department Care Team (Latest Contact Info) Description 05/19/2023 Travel Social History Tobacco Use Types Packs/Day Years Used Date Smoking Tobacco: Former Smokeless Tobacco: Current Chew Comments:1 can per day. Plan s to quit today 02/04/21 Alcohol Use Standard Drinks/Week Comments Yes 0 (1 standard drink = 0.6 oz pur e alcohol) on occassion only [facility] Utilities Answer Date Recorded In the [...] AM EDT Infusion Hematology Oncology at [address] [phone] 11/30/2023 8:30 AM EDT Office Visit Hematology/Oncology at [address] [phone] Bisi Hollis DISPATCH MANAGER [address] [place] [address] DR [place] [address] 11/30/2023 9:00 AM EDT Infusion Hematology Oncology at [address] [phone] 12/07/2023 11:15 AM EDT Office [place] [address] Daisy Lloyd PA [facility] DR HEMATOLOGY [place] [address] documented as of this encounter Visit Diagnoses Not on filedocumented in this encounter Care Teams Radiographer Relationship Specialty Start Date End Date Nick Martinez MD [address] [place] [address] PCP - General Internal Medicine 07/01/18 documented as of this encounter
--- OUTSIDE RECORDS SUMMARY | 2023-10-27 15:20 | XMS_ITS | Encounter Summary ---
Author Organization [facility] [place] [address] Care Team Providers Care Assembler Tractor Name Role Phone Nick Martinez MD Primary Care Provider Encounter Details Date Type Department Care Team (Latest Contact Info) Description 06/02/2023 7:54 AM EDT - 06/02/2023 11:59 PM EDT Hospital Encounter Hematology [place] [phone] Discharge Disposition: Home Social History Tobacco Use Types Packs/Day Years Used Date Smoking Tobacco: Former Smokeless Tobacco: Current Chew Comments:1 can per day. Plan s to quit today 02/04/21 Alcohol Use Standard Drinks/Week Comments Yes 0 (1 standard drink = 0.6 oz pur e alcohol) on occassion only [employer] Utilities Answer Date Recorded In the past 12 months has [employer], gas, oil, or water [employer] threatened to shut off services in your [...] AM EDT Infusion Hematology Oncology at [address] [phone] 11/30/2023 8:30 AM EDT Office Visit Hematology/Oncology at [address] [phone] Bisi Hollis APRN [address] [place] [address] DR HEMATOLOGY AND ONCOLOGY [place], [place] [address] 11/30/2023 9:00 AM EDT Infusion Hematology Oncology at [address] [phone] 12/07/2023 11:15 AM EDT Office Visit [place] [address] Daisy Lloyd PA [facility] [place] [address] documented as of this encounter Visit Diagnoses Not on filedocumented in this encounter Care Teams Assembler Tractor Relationship Specialty Start Date End Date Nick Martinez MD [address] [place] [address] PCP - General Internal Medicine 07/01/18 documented as of this encounter
--- OUTSIDE RECORDS SUMMARY | 2023-10-27 15:20 | XMS_ITS | Encounter Summary ---
Author Organization [facility] [place] [address] Care Team Providers Care Photography Colorist Name Role Phone Nick Martinez MD Primary Care Provider [phone] Encounter Details Date Type Department Care Team (Latest Contact Info) Description 06/02/2023 Travel Social History Tobacco Use Types Packs/Day Years Used Date Smoking Tobacco: Former Smokeless Tobacco: Current Chew Comments:1 can per day. Plan s to quit today 02/04/21 Alcohol Use Standard Drinks/Week Comments Yes 0 (1 standard drink = 0.6 oz pur e alcohol) on occassion only [facility] Utilities Answer Date Recorded In the [...] 8:30 AM EDT Infusion Hematology Oncology at [address] [phone] 11/30/2023 8:30 AM EDT Office Visit Hematology/Oncology at [address] [phone] Bisi Hollis SUPERVISOR GENERAL [address] [place] [address] [place] [address] 11/30/2023 9:00 AM EDT Infusion Hematology Oncology at [address] [phone] 12/07/2023 11:15 AM EDT Office Visit [place] [address] Daisy Lloyd PA [facility] DR [place] [address] documented as of this encounter Visit Diagnoses Not on filedocumented in this encounter Care Teams Photography Colorist Relationship Specialty Start Date End Date Nick Martinez MD [address] [place] [address] PCP - General Internal Medicine 07/01/18 documented as of this encounter
--- OUTSIDE RECORDS SUMMARY | 2023-10-27 15:20 | XMS_ITS | Encounter Summary ---
Author Organization [facility] [place] [address] Care Team Providers Care Data Systems Analyst Name Role Phone Nick Martinez MD Primary Care Provider [phone] Encounter Details Date Type Department Care Team (Latest Contact Info) Description 05/23/2023 Travel Social History Tobacco Use Types Packs/Day Years Used Date Smoking Tobacco: Former Smokeless Tobacco: Current Chew Comments:1 can per day. Plan s to quit today 02/04/21 Alcohol Use Standard Drinks/Week Comments Yes 0 (1 standard drink = 0.6 oz pur e alcohol) on occassion only [facility] Utilities Answer Date Recorded In the [...] 8:30 AM EDT Infusion Hematology Oncology at [address] [phone] 11/30/2023 8:30 AM EDT Office Visit Hematology/Oncology at [address] [phone] Bisi Hollis TRANSPORTATION MANAGER [address] [place] [address] DR [place] [address] 11/30/2023 9:00 AM EDT Infusion Hematology Oncology at [address] [phone] 12/07/2023 11:15 AM EDT Office Visit [place] [address] Daisy Lloyd PA [facility] DR [place] [address] documented as of this encounter Visit Diagnoses Not on filedocumented in this encounter Care Teams Data Systems Analyst Relationship Specialty Start Date End Date Nick Martinez MD [address] [place] [address] PCP - General Internal Medicine 07/01/18 documented as of this encounter
--- OUTSIDE RECORDS SUMMARY | 2023-10-27 15:20 | XMS_ITS | Encounter Summary ---
Author Organization [facility] [place] [address] Care Team Providers Care Plodding Operator Name Role Phone Nick Martinez MD Primary Care Provider [phone] Encounter Details Date Type Department Care Team [...] 8:30 AM EDT Infusion Hematology Oncology at [address] [phone] 11/30/2023 8:30 AM EDT Office Visit Hematology/Oncology at [address] [phone] Bisi Hollis CAR UNLOADER [address] [place] [address] DR HEMATOLOGY [place] [address] 11/30/2023 9:00 AM EDT Infusion Hematology Oncology at [address] [phone] 12/07/2023 11:15 AM EDT Office [place] [address] Daisy Lloyd PA [facility] DR [place] [address] documented as of this encounter Visit Diagnoses Not on filedocumented in this encounter Care Teams Plodding Operator Relationship Specialty Start Date End Date Nick Martinez MD [address] [place] [address] PCP - General Internal Medicine 07/01/18 documented as of this encounter
--- OUTSIDE RECORDS SUMMARY | 2023-10-27 15:20 | XMS_ITS | Encounter Summary ---
[place] [address] Care Team Providers Care Registered Nurse Cardiovascular Icu Name Role Phone Nick Martinez MD Primary Care Provider [phone] Reason for Visit * Reason Onset Date Comments Disability Paperwork 06/14/2023 Encounter Details Date Type Department Care Team (Late st Contact Info) Description 06/14/2023 Telephone Hematology [place] [address] Manjula Liu Disability Paperwork Social History Tobacco Use Types Packs/Day Years Used Date Smoking Tobacco: Former Smokeless Tobacco: Current Chew Comments:1 can per day. Plan s to quit today 02/04/21 Alcohol Use Standard Drinks/Week Comments Yes 0 (1 standard drink = 0.6 oz pur e alcohol) on occassion only [email or web address] Utilities Answer Date Recorded In the past 12 months has [employer], gas, oil, or water [employer] threatened to shut off services in your [...] review and signature. 06/24/23: Form faxed to [phone] Copy scanned documented in this encounter Plan of Treatment Upcoming Encounters Date Type Department Care Team (Late st Contact Info) Description 11/10/2023 8:30 AM EDT Infusion Hematology Oncology at [address] [phone] 11/30/2023 8:30 AM EDT Office Visit Hematology/Oncology at [address] [phone] Bisi Hollis APRN [address] [place] [address] DR [place] [address] 11/30/2023 9:00 AM EDT Infusion Hematology Oncology at [address] [phone] 12/07/2023 11:15 AM EDT Office Visit [place] [address] Daisy Lloyd PA [facility] DR [place] [address] documented as of this encounter Visit Diagnoses Not on filedocumented in this encounter Care Teams Registered Nurse Cardiovascular Icu Relationship Specialty Start Date End Date Nick Martinez MD [address] [place] [address] PCP - General Internal Medicine 07/01/18 documented as of this encounter
--- OUTSIDE RECORDS SUMMARY | 2023-10-27 15:20 | XMS_ITS | Encounter Summary ---
Author Organization [facility] [place] [address] Care Team Providers Care Cylinder Batcher Name Role Phone Nick Martinez MD Primary Care Provider [phone] Encounter Details Date Type Department Care Team (Late st Contact Info) Description 06/03/2023 Telephone [place] [address] Rosalie Samano MD [facility] DR [place] [address] Social History Tobacco Use Types Packs/Day Years Used Date Smoking Tobacco: Former Smokeless Tobacco: Current Chew Comments:1 can per day. Plan s to quit today 02/04/21 Alcohol Use Standard Drinks/Week Comments Yes 0 (1 standard drink = 0.6 oz pur e alcohol) on occassion only [facility] Utilities Answer Date Recorded In the past 12 months has [employer], gas, oil, or water company threatened [...] Rosalie Samano MD Radiation Oncology Resident PGY-2 [facility] Radiation Oncology documented in this encounter Plan of Treatment Upcoming Encounters Date Type Department Care Team (Late st Contact Info) Description 11/10/2023 8:30 AM EDT Infusion Hematology Oncology at [address] [phone] 11/30/2023 8:30 AM EDT Office Visit Hematology/Oncology at [address] [phone] Bisi Hollis APRN [address] [place] [address] DR HEMATOLOGY [place] [address] 11/30/2023 9:00 AM EDT Infusion Hematology Oncology at [address] [phone] 12/07/2023 11:15 AM EDT Office Visit [place] [address] Daisy Lloyd PA [facility] DR [place]ATOLOG[place] [address] documented as of this encounter Visit Diagnoses Not on filedocumented in this encounter Care Teams Cylinder Batcher Relationship Specialty Start Date End Date Nick Martinez MD [address] [place] [address] PCP - General Internal Medicine 07/01/18 documented as of this encounter
--- OUTSIDE RECORDS SUMMARY | 2023-10-27 15:20 | XMS_ITS | Encounter Summary ---
Author Organization [facility] [place] [address] Care Team Providers Care Game Design Instructor Name Role Phone Nick Martinez MD Primary Care Provider [phone] Encounter Details Date Type Department Care Team (Late st Contact Info) Description 06/16/2023 Notes Only [place] [address] Carlos Marie MD [facility] [place] [address] Social History Tobacco Use Types Packs/Day Years Used Date Smoking Tobacco: Former Smokeless Tobacco: Current Chew Comments:1 can per day. Plan s to quit today 02/04/21 Alcohol Use Standard Drinks/Week Comments Yes 0 (1 standard drink = 0.6 oz pur e alcohol) on occassion only [facility] Utilities Answer Date Recorded In the past 12 months has [employer], gas, oil, or water company threatened [...] original note were not included. [facility] Radiation Oncology Radiation Oncology Telephone Note [...] hand symptoms are not likely related to DRAGGER OUT metastasis due to lack of it being a unilateral symptom. Etiology unclear. Consider referral to neurology if continues or gets worse. Carlos Marie MD [facility] Radiation Oncology documented in this encounter Plan of Treatment Upcoming Encounters Date Type Department Care Team (Late st Contact Info) Description 11/10/2023 8:30 AM EDT Infusion Hematology Oncology at [address] [phone] 11/30/2023 8:30 AM EDT Office Visit Hematology/Oncology at [address] [phone] Bisi Hollis APRN [address] [place] [address] DR HEMATOLOGY AND ONCOLOGY [place], [place] [phone] 11/30/2023 9:00 AM EDT Infusion Hematology Oncology at [address] [phone] 12/07/2023 11:15 AM EDT Office Visit [place] [address] Daisy Lloyd PA [facility] DR [place]ATOLOG[place] [address] documented as of this encounter Visit Diagnoses Not on filedocumented in this encounter Care Teams Game Design Instructor Relationship Specialty Start Date End Date Nick Martinez MD [address] [place] [address] PCP - General Internal Medicine 07/01/18 documented as of this encounter
--- OUTSIDE RECORDS SUMMARY | 2023-10-27 15:20 | XMS_ITS | Encounter Summary ---
[place] [address] Care Team Providers Care Property Handler Name Role Phone Nick Martinez MD Primary Care Provider [phone] Encounter Details Date Type Department Care Team (Late st Contact Info) Description 06/23/2023 Telephone [place] [address] Neha Servin RN Social History Tobacco Use Types Packs/Day Years Used Date Smoking Tobacco: Former Smokeless Tobacco: Current Chew Comments:1 can per day. Plan s to quit today 02/04/21 Alcohol Use Standard Drinks/Week Comments Yes 0 (1 standard drink = 0.6 oz pur e alcohol) on occassion only [facility] Utilities Answer Date Recorded In the past 12 months has [employer], gas, oil, or water [employer] threatened to shut off services in your [...] AM EDT Infusion Hematology Oncology at [address] [phone] 11/30/2023 8:30 AM EDT Office Visit Hematology/Oncology at [address] [phone] Bisi Hollis APRN [address] [place] [address] DR HEMATOLOGY [place] [address] 11/30/2023 9:00 AM EDT Infusion Hematology Oncology at [address] [phone] 12/07/2023 11:15 AM EDT Office Visit [place] [address] Daisy Lloyd PA [facility] DR HEMATOLOGY [place] [address] documented as of this encounter Visit Diagnoses Not on filedocumented in this encounter Care Teams Property Handler Relationship Specialty Start Date End Date Nick Martinez MD [address] [place] [address] PCP - General Internal Medicine 07/01/18 documented as of this encounter
--- OUTSIDE RECORDS SUMMARY | 2023-10-27 15:20 | XMS_ITS | Encounter Summary ---
Author Organization [facility] [place] [address] Care Team Providers Care Cdl Service Technician Name Role Phone Nick Martinez MD Primary Care Provider [phone] Encounter Details Date Type Department Care Team (Late st Contact Info) Description 05/29/2023 Telephone Hematology [place] [address] Jama Hayes MD [facility] DR HEMATOLOGY/[place] [address] Social History Tobacco Use Types Packs/Day Years Used Date Smoking Tobacco: Former Smokeless Tobacco: Current Chew Comments:1 can per day. Plan s to quit today 02/04/21 Alcohol Use Standard Drinks/Week Comments Yes 0 (1 standard drink = 0.6 oz pur e alcohol) on occassion only [facility] Utilities Answer Date Recorded In the past 12 months has [employer] electric, gas, oil, or water company threatened [...] 8:30 AM EDT Infusion Hematology Oncology at [address] [phone] 11/30/2023 8:30 AM EDT Office Visit Hematology/Oncology at [address] [phone] Bisi Hollis APRN [address] [place] [address] DR HEMATOLOGY [place] [address] 11/30/2023 9:00 AM EDT Infusion Hematology Oncology at [address] [phone] 12/07/2023 11:15 AM EDT Office Visit [place] [address] Daisy Lloyd PA [facility] DR [place] [address] documented as of this encounter Visit Diagnoses Not on filedocumented in this encounter Care Teams Cdl Service Technician Relationship Specialty Start Date End Date Nick Martinez MD [address] [place] [address] PCP - General Internal Medicine 07/01/18 documented as of this encounter
--- OUTSIDE RECORDS SUMMARY | 2023-10-27 15:20 | XMS_ITS | Encounter Summary ---
[place] [address] Care Team Providers Care Post Acute Care Nurse Practitioner Name Role Phone Nick Martinez MD Primary Care Provider [phone] Encounter Details Date Type Department Care Team (Late st Contact Info) Description 06/16/2023 Telephone [place] [address] Justina Kline RN Social History Tobacco Use Types Packs/Day Years Used Date Smoking Tobacco: Former Smokeless Tobacco: Current Chew Comments:1 can per day. Plan s to quit today 02/04/21 Alcohol Use Standard Drinks/Week Comments Yes 0 (1 standard drink = 0.6 oz pur e alcohol) on occassion only [facility] Utilities Answer Date Recorded In the past 12 months has [employer], gas, oil, or water [employer] threatened to shut off services in your [...] help with s/s: Call back number: EMERY [phone] T/C to Emery: Spoke with Emery, verified [...] 8:30 AM EDT Infusion Hematology Oncology at [address] [phone] 11/30/2023 8:30 AM EDT Office Visit Hematology/Oncology at [address] [phone] Bisi Hollis APRN [address] [place] [address] DR HEMATOLOGY AND ONCOLOGY [place], [place] [phone] 11/30/2023 9:00 AM EDT Infusion Hematology Oncology at [address] [phone] 12/07/2023 11:15 AM EDT Office Visit [place] [address] Daisy Lloyd PA [facility] [place] [address] documented as of this encounter Visit Diagnoses Not on filedocumented in this encounter Care Teams Post Acute Care Nurse Practitioner Relationship Specialty Start Date End Date Nick Martinez MD [address] [place] [address] PCP - General Internal Medicine 07/01/18 documented as of this encounter
--- OUTSIDE RECORDS SUMMARY | 2023-10-27 15:20 | XMS_ITS | Encounter Summary ---
[place] [address] Care Team Providers Care Virtual Assistant For Advertisers Name Role Phone Nick Martinez MD Primary Care Provider [phone] Reason for Visit * Reason Comments Procedure SRS * Consultation (Routine) - Closed Specialty Diagnoses / Procedures Referred By Mariana workman Referred To Contact Radiation Oncology Diagnoses Secondary malignant neoplasm of brain Procedures Simulation for Radiation Therapy Planning Carlos Marie MD [facility] [place] [address] [facility] [place] [address] Referral ID Status Reason Start Date Expiration Date V isits Requested Visits Authorized [id number] Closed Consult, Test & Treat 05/11/2023 06/11/2023 4 4 Encounter Details Date Type Department Care Team (Latest Contact Info) Description 05/23/2023 1:00 PM EDT Procedure visit [place] [address] Carlos Marie MD [facility] [place] [address] Secondary malignant neoplasm of brain Social History Tobacco Use Types Packs/Day Years Used Date Smoking Tobacco: Former Smokeless Tobacco: Current Chew Comments:1 can per day. Plan s to quit today 02/04/21 Alcohol Use Standard Drinks/Week Comments Yes 0 (1 standard drink = 0.6 oz pur e alcohol) on occassion only [facility] Utilities Answer Date Recorded In the [...] from the original note were not included. [facility] Medicine Radiation Oncology Radiation Oncology Hypofractionated [...] questions/concerns in the meantime. Carlos Marie MD [facility] Cancer [place] Radiation Oncology National [employer] [place] (NCI) [facility] [employer] Commission on Cancer (ACS [place]) Accredited Cancer Program [employer] (ACR) Accredited Radiation Oncology Program documented in this encounter Plan of Treatment Upcoming Encounters Date Type Department Care Team (Late st Contact Info) Description 11/10/2023 8:30 AM EDT Infusion Hematology Oncology at [address] [phone] 11/30/2023 8:30 AM EDT Office Visit Hematology/Oncology at [address] [phone] Bisi Hollis [address] HEMATOLOGY AND ONCOLOGY [place], [place] [phone] 11/30/2023 9:00 AM EDT Infusion Hematology Oncology at [address] [phone] 12/07/2023 11:15 AM EDT Office [place] [address] Daisy Lloyd PA [facility] DR HEMATOLOGY [place] [address] documented as of this encounter Results * (ABNORMAL) Comprehensive metabolic panel (non-fasting) (05/23/2023 1:48 PM EDT) [facility] Glucose 115 65 - 199 mg/dL [facility] Comment:Diabetes: >=200 mg/d L plus symptoms Blood Urea Nitrogen 18 10 - 20 mg/dL [facility] Creatinine 0.98 0.80 - 1.50 mg/dL [facility] Sodium 137 135 - 145 mmol/L [facility] Potassium 4.1 3.5 - 5.0 mmol/L [facility] Comment: Please note: ??Patients with WBC >100,000 may have falsely elevated Potassium levels. ??For accurate Potassium quantification in these patients send serum separator tube (gold top) for subsequent determinations. ??Contact the Clinical Chemistry Laboratory if there are any questions. Chloride 99 98 - 107 mmol/L [facility] Carbon Dioxide 28 22 - 31 mmol/L [facility] Anion Gap 10 5 - 15 mmol/L [facility] Calcium 9.0 8.5 - 10.5 mg/dL [facility] Protein, Total 6.3 6.1 - 8.0 g/dL [facility] Albumin 4.1 3.2 - 5.2 g/dL [facility] Aspartate Aminotransferase Not Perf 0 - 39 [facility] Comment:Unable to quantitate due to sample hemolysis. Sample redraw suggested. Alanine Aminotransferase 62(H) 0 - 55 unit/L [facility] Alkaline Phosphatase 72 40 - 130 unit/L [facility] Bilirubin, Total 0.3 0.2 - 1.3 mg/dL [facility] Est Glomerular Filtration Rate 86 >=60 mL/min/1. 73 m?? [facility] Comment: This patient's estimated GFR was [...] In Lab Carlos Marie MD CHEMISTRY ORDERABLES [facility] [place] [address] * (ABNORMAL) Levetiracetam level (05/23/2023 1:48 PM EDT) Levetiracetam Lvl (JULY) 3.7(L) 10.0 - 40.0 mcg/mL [facility] Comment: ADDITIONAL INFORMATION This test was developed and its performance characteristics determined by [facility] in a manner consistent with CLIA requirements. This test has not been cleared or approved by the U.S. Food and Drug Administration. Test Performed by: [facility] [address] [place] [address] Spinning Room Worker: Saad Vidal M.D. 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
--- OUTSIDE RECORDS SUMMARY | 2023-10-27 15:20 | XMS_ITS | Encounter Summary ---
Author Organization [facility] [place] [address] Care Team Providers Care Under Trimmer Name Role Phone Nick Martinez MD Primary Care Provider Reason for Referral * Diagnostic Test (STAT) - Closed Specialty Diagnoses / Procedures Referred By Mariana workman Referred To Contact Diagnoses Primary malignant neoplasm of right upper lobe of lung Localized swelling of right lower extremity Procedures Duplex Study for DVT, Bilat legs Ella Jean-Baptiste APRN [facility] DR HEMATOLOGY [place] [address] [facility] Vascular Lab [address] [place] [address] Referral ID Status Reason Start Date Expiration Date V isits Requested Visits Authorized [id number] Closed Specialty Service Requested 06/02/2023 06/01/2024 1 1 Reason for Visit * Reason Comments Follow-up Encounter Details Date Type Department Care Team (Late st Contact Info) Description 06/02/2023 9:00 AM EDT Office Visit [place] [address] Boy Tovar MD [facility] DR HEMATOLOGY [place] [address] Ella Jean-Baptiste APRN [facility] DR HEMATOLOGY [place] [address] Primary malignant neoplasm of right upper lobe of lung; Localized swelling of right lower extremity Social History Tobacco Use Types Packs/Day Years Used Date Smoking Tobacco: Former Smokeless Tobacco: Current Chew Comments:1 can per day. Plan s to quit today 02/04/21 Alcohol Use Standard Drinks/Week Comments Yes 0 (1 standard drink = 0.6 oz pur e alcohol) on occassion only [facility] Utilities Answer Date [...] this encounter Progress Notes * Ella Jean-Baptiste, PRODUCTION ASSEMBLER - 06/02/2023 9:00 AM EDT Images from the original note were not included. Thoracic Oncology [facility] [place] [phone] Raffy Lennon is being seen for cT1cN3 [...] helpful. 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 Likely cabro/pemetrexed/pembro # Tobacco use -discussed this at length and he is motivated and amenable to further intervention. Iprescribed Chantix and discussed the potential side effects. Also recommended that he use lozenges to help with immediate urges and cravings. Ella Jean-Baptiste, MARLENY, PRODUCTION ASSEMBLER Thoracic Oncology [facility] CC: Serenity Larson APRN HPI/Interval History/Subjective: Last [...] History/Support Network: Home situation: Lives with in [facility] with Velvet. 35 years. 3 children and plan to adopt another one through foster care. 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 38 Pk [...] brain was not included in the imaged [id number] on the current study. 08/10/2021 3:38 PM [...] Text Report Department: Vascular Surgery Lab Patient: [id number] (RAFFY LENNON) CPT: 88244 Referring Physician: ELLA JEAN-BAPTISTE Phone: Indications: Findings: [...] AM EDT Infusion Hematology Oncology at [address] [phone] 11/30/2023 8:30 AM EDT Office Visit Hematology/Oncology at [address] [phone] Bisi Hollis APRN [address] [place] [address] DR HEMATOLOGY AND ONCOLOGY [place], [place] [phone] 11/30/2023 9:00 AM EDT Infusion Hematology Oncology at [address] [phone] 12/07/2023 11:15 AM EDT Office Visit [place] [address] Daisy Lloyd PA [facility] DR HEMATOLOGY [place] [address] documented as of this encounter Results * Duplex Study for DVT, Bilat legs (06/02/2023 9:34 AM EDT) VB Text Report Department: Vascular Surgery Lab Patient: [id number] (RAFFY LENNON) CPT: 06186 Referring Physician: ELLA JEAN-BAPTISTE ?? Phone: Indications: [...] EDT Ella Jean-Baptiste APRN VASCULAR ORDERABLE S Performing Organization Address City/[facility]/ZIP Co de Phone Number VASCUBASE * T4, free (06/02/2023 8:08 AM EDT) Free T4 1.07 0.93 - 1.70 ng/dL [facility] Comment: Reference Interval (ng/dL): Females: ??First Trimester: 0.97-1.68 ??Second Trimester: 0.77-1.51 ??Third Trimester: 0.77-1.49 Blood 06/02/2023 8:08 AM EDT 06/02/2023 8:12 AM EDT Narrative Resulting Agency Comment Spec In Lab Ella Jean-Baptiste APRN CHEMISTRY ORDERABL ES [facility] [place] [address] * TSH (06/02/2023 8:08 AM EDT) Thyroid Stimulating Hormone 3.09 0.27 - 4.20 mcIU/mL [facility] Comment: Reference Interval (mcIU/mL): Females: ??First Trimester: 0.23-3.88 ??Second Trimester: 0.22-3.90 ??Third Trimester: 0.44-4.66 Blood 06/02/2023 8:08 AM EDT 06/02/2023 8:12 AM EDT Narrative Resulting Agency Comment Spec In Lab Ella Jean-Baptiste APRN CHEMISTRY ORDERABL ES Performing Organization Address [facility] Co de Phone Number [facility] [place] [address] * Magnesium (06/02/2023 8:08 AM EDT) Magnesium 0.93 0.69 - 1.07 mmol/L [facility] Blood 06/02/2023 8:08 AM EDT 06/02/2023 8:12 AM EDT Narrative Resulting Agency Comment Spec In Lab Ella Jean-Baptiste APRN CHEMISTRY ORDERABL ES Performing Organization Address [facility] Co de Phone Number [facility] [place] [address] * (ABNORMAL) Comprehensive metabolic panel (non-fasting) (06/02/2023 8:08 AM EDT) Glucose 98 65 - 199 mg/dL [facility] Comment:Diabetes: >=200 mg/d L plus symptoms Blood Urea Nitrogen 21(H) 10 - 20 mg/dL [facility] Creatinine 1.04 0.80 - 1.50 mg/dL [facility] Sodium 137 135 - 145 mmol/L [facility] Potassium 4.3 3.5 - 5.0 mmol/L [facility] Comment: Please note: ??Patients with WBC >100,000 may have falsely elevated Potassium levels. ??For accurate Potassium quantification in these patients send serum separator tube (gold top) for subsequent determinations. ??Contact the Clinical Chemistry Laboratory if there are any questions. Chloride 99 98 - 107 mmol/L [facility] Carbon Dioxide 28 22 - 31 mmol/L [facility] Anion Gap 10 5 - 15 mmol/L [facility] Calcium 9.8 8.5 - 10.5 mg/dL [facility] Protein, Total 7.1 6.1 - 8.0 g/dL [facility] Albumin 4.3 3.2 - 5.2 g/dL [facility] Aspartate Aminotransferase 24 0 - 39 unit/L [facility] Alanine Aminotransferase 39 0 - 55 unit/L [facility] Alkaline Phosphatase 64 40 - 130 unit/L [facility] Bilirubin, Total 0.3 0.2 - 1.3 mg/dL [facility] Est Glomerular Filtration Rate 80 >=60 mL/min/1. 73 m?? [facility] Comment: This patient's estimated GFR [...] Lab Ella Jean-Baptiste APRN CHEMISTRY ORDERABL ES [facility] [place] [address] documented in this encounter Visit Diagnoses Diagnosis Primary malignant neoplasm of right upper lobe of lung Malignant neoplasm of upper lobe, bronchus or lung Localized swelling of right lower extremity documented in this encounter Care Teams Under Trimmer Relationship Specialty Start Date End Date Nick Martinez MD [address] [place] [address] PCP - General Internal Medicine 07/01/18 documented as of this encounter
--- OUTSIDE RECORDS SUMMARY | 2023-10-27 15:20 | XMS_ITS | Encounter Summary ---
Author Organization [facility] [place] [address] Care Team Providers Care Drafter Topographical Name Role Phone Nick Martinez MD Primary Care Provider [phone] Reason for Visit * Diagnostic Test (STAT) - Closed Specialty Diagnoses / Procedures Referred By Mariana wormkan Referred To Contact Diagnoses Primary malignant neoplasm of right upper lobe of lung Localized swelling of right lower extremity Procedures Duplex Study for DVT, Bilat legs Ella Jean-Baptiste, [facility] DR [place] [address] [facility] Vascular Lab [address] [place] [address] Referral ID Status Reason Start Date Expiration Date V isits Requested Visits Authorized [id number] Closed Specialty Service Requested 06/02/2023 06/01/2024 1 1 Encounter Details Date Type Department Care Team (Late st Contact Info) Description 06/02/2023 10:00 AM EDT Tech Visit [place] [address] Saad [place] Primary malignant [...] 8:30 AM EDT Infusion Hematology Oncology at [address] [phone] 11/30/2023 8:30 AM EDT Office Visit Hematology/Oncology at [address] [phone] Bisi Hollis APRN [address] [place] [address] DR HEMATOLOGY AND ONCOLOGY [place], [place] [phone] 11/30/2023 9:00 AM EDT Infusion Hematology Oncology at [address] [phone] 12/07/2023 11:15 AM EDT Office Visit [place] [address] Daisy Lloyd PA [facility] DR [place] [address] documented as of this encounter Procedures Procedure Name Priority Date/Time Associated Diagnosis Comments DUPLEX FOR DVT BILAT LEGS STAT 06/02/2023 9:34 AM EDT Primary malignant neoplasm of right upper lobe of lung Localized swelling of right lower extremity documented in this encounter Results * Duplex Study for DVT, Bilat legs (06/02/2023 9:34 AM EDT) VB Text Report Department: Vascular Surgery Lab Patient: [id number] (RAFFY LENNON) CPT: [id number] Referring Physician: ELLA JEAN-BAPTISTE ?? Phone: Indications: [...] Ella Jean-Baptiste APRN VASCULAR ORDERABLE S [facility] documented in this encounter Visit Diagnoses Diagnosis Primary malignant neoplasm of right upper lobe of lung Malignant neoplasm of upper lobe, bronchus or lung Localized swelling of right lower extremity documented in this encounter Care Teams Drafter Topographical Relationship Specialty Start Date End Date Nick Martinez MD [address] [place] [address] PCP - General Internal Medicine 07/01/18 documented as of this encounter
--- OUTSIDE RECORDS SUMMARY | 2023-10-27 15:20 | XMS_ITS | Encounter Summary ---
Author Organization [facility] [place] [address] Care Team Providers Care Homebound Teacher Name Role Phone Nick Martinez MD Primary Care Provider [phone] Encounter Details Date Type Department Care Team (Late st Contact Info) Description 06/27/2023 Orders Only Hematology [place] [address] Ella Diego APRN [facility] DR [place] [address] Primary malignant neoplasm of right upper lobe of lung; Brain metastasis; High risk medication use Social History Tobacco Use Types Packs/Day Years Used Date Smoking Tobacco: Former Smokeless Tobacco: Current Chew Comments:1 can per day. Plan s to quit today 02/04/21 Alcohol Use Standard Drinks/Week Comments Yes 0 (1 standard drink = 0.6 oz pur e alcohol) on occassion only [facility] Utilities Answer Date Recorded In the past 12 months has [employer] electric, gas, oil, or water company threatened [...] 8:30 AM EDT Infusion Hematology Oncology at [address] [phone] 11/30/2023 8:30 AM EDT Office Visit Hematology/Oncology at [address] [phone] Bisi Hollis APRN [address] [place] [address] DR HEMATOLOGY [place] [address] 11/30/2023 9:00 AM EDT Infusion Hematology Oncology at [address] [phone] 12/07/2023 11:15 AM EDT Office Visit [place] [address] Daisy Lloyd PA [facility] DR [place] [address] Scheduled Orders Name Type Priority Associated Diagnoses [...] for long-term (current) use of other medications documented in this encounter Care Teams Homebound Teacher Relationship Specialty Start Date End Date Nick Martinez MD [address] [place] [address] PCP - General Internal Medicine 07/01/18 documented as of this encounter
--- OUTSIDE RECORDS SUMMARY | 2023-10-27 15:20 | XMS_ITS | Encounter Summary ---
[place] [address] Care Team Providers Care Accounts Adjustable Clerk Name Role Phone Nick Martinez MD Primary Care Provider [phone] Reason for Visit * Reason Onset Date Comments Medication Refill 05/31/2023 Encounter Details Date Type Department Care Team (Late st Contact Info) Description 05/31/2023 Refill [place] [address] Justina Kline RN Social History Tobacco Use Types Packs/Day Years Used Date Smoking Tobacco: Former Smokeless Tobacco: Current Chew Comments:1 can per day. Plan s to quit today 02/04/21 Alcohol Use Standard Drinks/Week Comments Yes 0 (1 standard drink = 0.6 oz pur e alcohol) on occassion only [employer] Utilities Answer Date Recorded In the past 12 months has [employer], gas, oil, or water [employer] threatened to shut off services in your [...] please give them a call back at [phone] to discuss. T/C to [place]: Verified pt [...] 8:30 AM EDT Infusion Hematology Oncology at [address] [phone] 11/30/2023 8:30 AM EDT Office Visit Hematology/Oncology at [address] [phone] Bisi Hollis APRN [address] [place] [address] DR HEMATOLOGY AND ONCOLOGY [place], [place] [address] 11/30/2023 9:00 AM EDT Infusion Hematology Oncology at [address] [phone] 12/07/2023 11:15 AM EDT Office Visit [place] [address] Daisy Lloyd PA [facility] DR HEMATOLOGY [place] [address] documented as of this encounter Visit Diagnoses Not on filedocumented in this encounter Care Teams Accounts Adjustable Clerk Relationship Specialty Start Date End Date Nick Martinez MD [address] [place] [address] PCP - General Internal Medicine 07/01/18 documented as of this encounter
--- OUTSIDE RECORDS SUMMARY | 2023-10-27 15:20 | XMS_ITS | Encounter Summary ---
[place] [address] Care Team Providers Care Galley Hand Name Role Phone Nick Martinez MD Primary Care Provider [phone] Encounter Details Date Type Department Care Team (Late st Contact Info) Description 06/22/2023 Telephone Hematology [place] [address] James Javier RN Social History Tobacco Use Types Packs/Day Years Used Date Smoking Tobacco: Former Smokeless Tobacco: Current Chew Comments:1 can per day. Plan s to quit today 02/04/21 Alcohol Use Standard Drinks/Week Comments Yes 0 (1 standard drink = 0.6 oz pur e alcohol) on occassion only [facility] Utilities Answer Date Recorded In the past 12 months has [employer], gas, oil, or water [employer] threatened to shut off services in your [...] 06/22/2023 4:19 PM EDT Message receive from [place]: neuro referral Mich has a question about the script for - baclofen (Lioresal) 10 mg tablet And feels he needs a referral for neurology. - [place] - sister T/C to patient: Call placed to patient who gave me consent to speak with his sister Mich. Call placed to Mich who reported that patient used to take [...] 8:30 AM EDT Infusion Hematology Oncology at [address] [phone] 11/30/2023 8:30 AM EDT Office Visit Hematology/Oncology at [address] [phone] Bisi Hollis APRN [address] [place] [address] [place] [address] 11/30/2023 9:00 AM EDT Infusion Hematology Oncology at [address] [phone] 12/07/2023 11:15 AM EDT Office Visit [place] [address] Daisy Lloyd PA [facility] [place] [address] documented as of this encounter Visit Diagnoses Not on filedocumented in this encounter Care Teams Galley Hand Relationship Specialty Start Date End Date Nick Martinez MD [address] [place] [address] PCP - General Internal Medicine 07/01/18 documented as of this encounter
--- OUTSIDE RECORDS SUMMARY | 2023-10-27 15:20 | XMS_ITS | Encounter Summary ---
Author Organization [facility] [place] [address] Care Team Providers Care Terminal Supervisor Name Role Phone Nick Martinez MD Primary Care Provider [phone] Encounter Details Date Type Department Care Team (Late st Contact Info) Description 06/07/2023 Orders Only Hematology/Oncology at [address] [phone] Bisi Hollis APRN [address] [place] [address] DR [place] [address] Primary malignant neoplasm of right upper lobe of lung; High risk medication use Social History Tobacco Use Types Packs/Day Years Used Date Smoking Tobacco: Former Smokeless Tobacco: Current Chew Comments:1 can per day. Plan s to quit today 02/04/21 Alcohol Use Standard Drinks/Week Comments Yes 0 (1 standard drink = 0.6 oz pur e alcohol) on occassion only [facility] Utilities Answer Date Recorded In the [...] AM EDT Infusion Hematology Oncology at [address] [phone] 11/30/2023 8:30 AM EDT Office Visit Hematology/Oncology at [address] [phone] Bisi Hollis APRN [address] [place] [address] DR [place] [address] 11/30/2023 9:00 AM EDT Infusion Hematology Oncology at [address] [phone] 12/07/2023 11:15 AM EDT Office Visit [place] [address] Daisy Lloyd PA [facility] DR HEMATOLOGY [place] [address] Scheduled Orders Name Type Priority Associated Diagnoses [...] medications documented in this encounter Care Teams Terminal Supervisor Relationship Specialty Start Date End Date Nick Martinez MD [address] [place] [address] PCP - General Internal Medicine 07/01/18 documented as of this encounter
--- OUTSIDE RECORDS SUMMARY | 2023-10-27 15:20 | XMS_ITS | Encounter Summary ---
Author Organization [facility] [place] [address] Care Team Providers Care Cloth Finishing Range Operator Name Role Phone Nick Martinez MD Primary Care Provider [phone] Encounter Details Date Type Department Care Team (Late st Contact Info) Description 05/30/2023 3:15 PM EDT Ancillary Procedure [place] [address] Carlos Marie MD [facility] [place] [address] Social History Tobacco Use Types Packs/Day Years Used Date Smoking Tobacco: Former Smokeless Tobacco: Current Chew Comments:1 can per day. Plan s to quit today 02/04/21 Alcohol Use Standard Drinks/Week Comments Yes 0 (1 standard drink = 0.6 oz pur e alcohol) on occassion only [facility] Utilities Answer Date Recorded In the past 12 months has [employer], gas, oil, or water company threatened [...] 8:30 AM EDT Infusion Hematology Oncology at [address] [phone] 11/30/2023 8:30 AM EDT Office Visit Hematology/Oncology at [address] [phone] Bisi Hollis APRN [address] [place] [address] [place] [address] 11/30/2023 9:00 AM EDT Infusion Hematology Oncology at [address] [phone] 12/07/2023 11:15 AM EDT Office Visit [place] [address] Daisy Lloyd PA [facility] DR HEMATOLOGY [place] [address] documented as of this encounter Procedures Procedure Name Priority Date/Time Associated Diagnosis Comments FILM LIBRARY STORAGE ONLY CT CHEST ABDOMEN PELVIS Routine 05/30/2023 3:14 PM EDT documented in this encounter Results * Film Library- Storage Only CT Chest Abdomen Pelvis (05/30/2023 3:14 PM EDT) Narrative SUMEET - 05/30/2023 3:14 PM EDT This exam is auto-finalizing. It's purpose is for storage only. Carlos Marie MD IMG FILM LIBRARY ORD ERABLES [place], [place] documented in this encounter Visit Diagnoses Not on filedocumented in this encounter Care Teams Cloth Finishing Range Operator Relationship Specialty Start Date End Date Nick Martinez MD [address] [place] [address] PCP - General Internal Medicine 07/01/18 documented as of this encounter
--- OUTSIDE RECORDS SUMMARY | 2023-10-27 15:20 | XMS_ITS | Encounter Summary ---
Author Organization [facility] [place] [address] Care Team Providers Care End Finder Forming Department Name Role Phone Nick Martinez MD Primary Care Provider [phone] Encounter Details Date Type Department Care Team (Late st Contact Info) Description 06/22/2023 Orders Only Hematology [place] [address] Ella Diego APRN [facility] DR HEMATOLOGY [place] [address] Primary malignant neoplasm of right upper lobe [...] AM EDT Infusion Hematology Oncology at [address] [phone] 11/30/2023 8:30 AM EDT Office Visit Hematology/Oncology at [address] [phone] Bisi Hollis APRN [address] [place] [address] DR [place]EMAT[place]Y [place] [address] 11/30/2023 9:00 AM EDT Infusion Hematology Oncology at [address] [phone] 12/07/2023 11:15 AM EDT Office Visit [place] [address] Daisy Lloyd PA [facility] DR HEMATOLOGY [place] [address] documented as of this encounter Visit Diagnoses Diagnosis Primary malignant neoplasm of right upper lobe of lung Malignant neoplasm of upper lobe, bronchus or lung Localized swelling of right lower extremity documented in this encounter Care Teams End Finder Forming Department Relationship Specialty Start Date End Date Nick Martinez MD [address] [place] [address] PCP - General Internal Medicine 07/01/18 documented as of this encounter
--- OUTSIDE RECORDS SUMMARY | 2023-10-27 15:20 | XMS_ITS | Encounter Summary ---
Author Organization [facility] [place] [address] Care Team Providers Care Supervisor Tumbling And Rolling Name Role Phone Nick Martinez MD Primary Care Provider [phone] Encounter Details Date Type Department Care Team (Late st Contact Info) Description 05/29/2023 Telephone [place] [address] Emily Bobby MD [facility] [place] [address] Social History Tobacco Use Types Packs/Day Years Used Date Smoking Tobacco: Former Smokeless Tobacco: Current Chew Comments:1 can per day. Plan s to quit today 02/04/21 Alcohol Use Standard Drinks/Week Comments Yes 0 (1 standard drink = 0.6 oz pur e alcohol) on occassion only [facility] Utilities Answer Date Recorded In the past 12 months has [employer] electric, gas, oil, or water company threatened [...] 2. I informed him to call the [facility] rad onc office tomorrow to discuss his symptoms with Dr. Marie'snurse 3. I advised them to present to the ED if his symptoms were to acutely worsen or if new neuroligical symptoms such as seizure, vomiting, or new deficits were to occur. This note will be forwarded to Dr. Marie's team. Emily Bobby MD Chief Resident ([id number]) Radiation Oncology [facility] documented in this encounter Plan of Treatment Upcoming Encounters Date Type Department Care Team (Late st Contact Info) Description 11/10/2023 8:30 AM EDT Infusion Hematology Oncology at [address] [phone] 11/30/2023 8:30 AM EDT Office Visit Hematology/Oncology at [address] [phone] Bisi Hollis [address] HEMATOLOGY AND ONCOLOGY [place], [place] [phone] 11/30/2023 9:00 AM EDT Infusion Hematology Oncology at [address] [phone] 12/07/2023 11:15 AM EDT Office Visit [place] [address] Daisy Lloyd PA [facility] [place] [address] documented as of this encounter Visit Diagnoses Not on filedocumented in this encounter Care Teams Supervisor Tumbling And Rolling Relationship Specialty Start Date End Date Nick Martinez MD [address] [place] [address] PCP - General Internal Medicine 07/01/18 documented as of this encounter
--- OUTSIDE RECORDS SUMMARY | 2023-10-27 15:20 | XMS_ITS | Encounter Summary ---
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 Plan s to quit today 02/04/21 Alcohol Use Standard Drinks/Week Comments Yes 0 (1 standard drink = 0.6 oz pur e alcohol) on occassion only [facility] Utilities Answer Date Recorded In [...] face mask was applied for immobilization. The Hackerm[employer] system was used to monitor for patient [...] 8:30 AM EDT Infusion Hematology Oncology at [address] [address] 11/30/2023 8:30 AM EDT Office Visit Hematology/Oncology at [address] [address] Bisi Hollis APRN [address] [place] [address] DR HEMATOLOGY AND ONCOLOGY [place] [id number] 11/30/2023 9:00 AM EDT Infusion Hematology Oncology at [address] [phone] 12/07/2023 11:15 AM EDT Office Visit [place] [address] Daisy Lloyd PA [facility] DR HEMATOLOGY [place] [address] documented as of this encounter Visit Diagnoses Diagnosis 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
--- OUTSIDE RECORDS SUMMARY | 2023-10-27 15:20 | XMS_ITS | Encounter Summary ---
[place] [address] Care Team Providers Care Mental Health Program Director Name Role Phone Nick Martinez MD Primary Care Provider [phone] Encounter Details Date Type Department Care Team (Late st Contact Info) Description 06/02/2023 Telephone [place] [address] Anahi Cortez RN Social History Tobacco Use Types Packs/Day Years Used Date Smoking Tobacco: Former Smokeless Tobacco: Current Chew Comments:1 can per day. Plan s to quit today 02/04/21 Alcohol Use Standard Drinks/Week Comments Yes 0 (1 standard drink = 0.6 oz pur e alcohol) on occassion only [facility] Utilities Answer Date Recorded In the past 12 months has [employer], gas, oil, or water [employer] threatened to shut off services in your [...] instructed to increase his steroids per the business transformation analyst MD yesterday and has since developed some right hand weakness this morning. Could someone give Hawa a call to discuss at [phone]. Thanks Mckenna documented in this encounter Plan of Treatment Upcoming Encounters Date Type Department Care Team (Late st Contact Info) Description 11/10/2023 8:30 AM EDT Infusion Hematology Oncology at [address] [address] 11/30/2023 8:30 AM EDT Office Visit Hematology/Oncology at [address] [phone] Bisi Hollis APRN [address] [place] [address] DR HEMATOLOGY AND ONCOLOGY [place], [place] [phone] 11/30/2023 9:00 AM EDT Infusion Hematology Oncology at [address] [phone] 12/07/2023 11:15 AM EDT Office Visit [place] [address] Daisy Lloyd PA [facility] DR HEMATOLOGY [place] [address] documented as of this encounter Visit Diagnoses Not on filedocumented in this encounter Care Teams Mental Health Program Director Relationship Specialty Start Date End Date Nick Martinez MD [address] [place] [address] PCP - General Internal Medicine 07/01/18 documented as of this encounter
--- OUTSIDE RECORDS SUMMARY | 2023-10-27 15:20 | XMS_ITS | Encounter Summary ---
Author Organization [facility] [place] [address] Care Team Providers Care Automobile Mechanic Radiator Name Role Phone Nick Martinez MD Primary Care Provider [phone] Reason for Visit * Consultation (Routine) - Closed Specialty Diagnoses / Procedures Referred By Mariana workman Referred To Contact Radiation Oncology Diagnoses Secondary malignant neoplasm of brain Procedures Simulation for Radiation Therapy Planning Carlos Marie MD [facility] [place] [address] [facility] [place] [address] Referral ID Status Reason Start Date Expiration Date V isits Requested Visits Authorized [id number] Closed Consult, Test & Treat 05/11/2023 06/11/2023 4 4 Encounter Details Date Type Department Care Team (Latest Contact Info) Description 05/25/2023 1:00 PM EDT Procedure [place] [address] Carlos Marie MD [facility] [place] [address] Secondary malignant neoplasm of brain Social History Tobacco Use Types Packs/Day Years Used Date Smoking Tobacco: Former Smokeless Tobacco: Current Chew Comments:1 can per day. Plan s to quit today 02/04/21 Alcohol Use Standard Drinks/Week Comments Yes 0 (1 standard drink = 0.6 oz pur e alcohol) on occassion only [facility] Utilities Answer Date Recorded In the past [...] from the original note were not included. [facility] Medicine Radiation Oncology Radiation Oncology [...] MRI in 2-3 months Carlos Marie MD [facility] Radiation Oncology [facility] [place] [facility] [employer] Commission on Cancer (ACS [place]) Accredited Cancer Program [employer] (ACR) Accredited Radiation Oncology Program documented in this encounter Plan of Treatment Upcoming Encounters Date Type Department Care Team (Late st Contact Info) Description 11/10/2023 8:30 AM EDT Infusion Hematology Oncology at [address] [address] 11/30/2023 8:30 AM EDT Office Visit Hematology/Oncology at [address] [phone] Bisi Hollis [address] HEMATOLOGY [place] [address] 11/30/2023 9:00 AM EDT Infusion Hematology Oncology at [address] [address] 12/07/2023 11:15 AM EDT Office [place] [address] Daisy Lloyd PA [facility] DR [place] [address] documented as of this encounter Visit Diagnoses [...] mg documented in this encounter Care Teams Automobile Mechanic Radiator Relationship Specialty Start Date End Date Nick Martinez MD [address] [place] [address] PCP - General Internal Medicine 07/01/18 documented as of this encounter
--- OUTSIDE RECORDS SUMMARY | 2023-10-27 15:20 | XMS_ITS | Encounter Summary ---
Author Organization [facility] [place] [address] Care Team Providers Care Plastic Roller Name Role Phone Nick Martinez MD Primary Care Provider [phone] Encounter Details Date Type Department Care Team [...] AM EDT Infusion Hematology Oncology at [address] [address] 11/30/2023 8:30 AM EDT Office Visit Hematology/Oncology at [address] [phone] Bisi Hollis LUNCHROOM MOTHER [address] [place] [address] DR HEMATOLOGY [place] [address] 11/30/2023 9:00 AM EDT Infusion Hematology Oncology at [address] [address] 12/07/2023 11:15 AM EDT Office Visit [place] [address] Daisy Lloyd PA [facility] DR [place] [address] documented as of this encounter Visit Diagnoses Not on filedocumented in this encounter Care Teams Plastic Roller Relationship Specialty Start Date End Date Nick Martinez MD [address] [place] [address] PCP - General Internal Medicine 07/01/18 documented as of this encounter
--- OUTSIDE RECORDS SUMMARY | 2023-10-27 15:21 | XMS_ITS | Encounter Summary ---
[place] [address] Care Team Providers Care Real Estate Intern Name Role Phone Nick Martinez MD Primary Care Provider Reason for Referral * Diagnostic Test (Routine) - Denied Specialty Diagnoses / Procedures Referred By Mariana workman Referred To Contact Radiology Diagnoses Primary malignant neoplasm of right upper lobe of lung Procedures NM PET CT Skull Base to Mid-thigh Ella Diego APRN [facility] DR HEMATOLOGY [place] [address] [place] [address] Referral ID Status Reason Start Date Expiration Date V isits Requested Visits Authorized [id number] Denied Specialty Service Requested 04/29/2023 04/29/2023 1 0 Encounter Details Date Type Department Care Team (Late st Contact Info) Description 04/25/2023 Orders Only Hematology [place] [address] Ella Diego APRN [facility] HEMATOLOGY [place] [address] Primary malignant neoplasm of right [...] AM EDT Infusion Hematology Oncology at [address] [address] 11/30/2023 8:30 AM EDT Office Visit Hematology/Oncology at [address] [phone] Bisi Hollis APRN [address] [place] [address] DR HEMATOLOGY AND ONCOLOGY [place], [place] [address] 11/30/2023 9:00 AM EDT Infusion Hematology Oncology at [address] [phone] 12/07/2023 11:15 AM EDT Office Visit [place] [address] Daisy Lloyd PA [facility] DR HEMATOLOGY [place] [address] documented as of this encounter Results * [...] brain was not included in the imaged btudl-mm-ftob on the current study. I have personally [...] who have questions please contact the health palliative care coordinator that requested your imaging first. ? Electronically signed by: Alfredo Jean-Baptiste MD, [facility] ([phone]), at 05/05/2023 3:23 PM Narrative 05/05/2023 3:23 [...] the brain. TECHNIQUE: Following IV injection of 63-miukhs-0-deoxyglucose (FDG) a standard uptake of approximately 60 [...] the brain. TECHNIQUE: Following IV injection of 50-zfxpqz-1-deoxyglucose (FDG) astandard uptake of approximately 60 minutes, [...] avid aortocaval and left periaortic adenopathy (axial epruge427-703 and 175-180), new from prior PET/CT. SKELETON/EXTREMITIES: [...] the brain was not included in the [id number] on the current study. I have personally reviewed the image(s) and the resident's interpretationand agree with the findings, Alfredo Jean-Baptiste MD at 05/05/2023 3:23 PM Thank you for letting us participate in the care of this patient. If youare a health care provider and have any questions regarding this report,please contact the number below. For patients who have questions please contactthe health palliative care coordinator that requested your imaging first. Electronically signed by: Alfredo Jean-Baptiste MD, [facility]([phone]), at 05/05/2023 3:23 PM Ella Diego APRN IMG PET ORDERABLES documented in this encounter Visit Diagnoses Diagnosis Primary malignant neoplasm of right upper lobe of lung Malignant neoplasm of upper lobe, bronchus or lung Primary malignant neoplasm of right upper lobe of lung Malignant neoplasm of upper lobe, bronchus or lung documented in this encounter Care Teams Real Estate Intern Relationship Specialty Start Date End Date Nick Martinez MD [address] [place] [address] PCP - General Internal Medicine 07/01/18 documented as of this encounter
--- OUTSIDE RECORDS SUMMARY | 2023-10-27 15:21 | XMS_ITS | Encounter Summary ---
[place] [address] Care Team Providers Care Wire Threader Name Role Phone Nick Martinez MD Primary Care Provider [phone] Encounter Details Date Type Department Care Team (Late st Contact Info) Description 05/12/2023 Telephone [place]iation [place] [address] Justina Kline RN Social History Tobacco Use Types Packs/Day Years Used Date Smoking Tobacco: Former Smokeless Tobacco: Current Chew Comments:1 can per day. Plan s to quit today 02/04/21 Alcohol Use Standard Drinks/Week Comments Yes 0 (1 standard drink = 0.6 oz pur e alcohol) on occassion only [facility] Utilities Answer Date Recorded In the past 12 months has [employer], gas, oil, or water [employer] threatened to shut off services in your [...] SISTER Medication to be refilled: [facility] Pharmacy: [facility] Amount (days) remainin Call back number: CALL EMERY FOR APPTS T/C to Emery: Verified patient name and . Per Emery, patient completed nystatin for thrush on Tuesday or Tuesday. Patient complained today of stuff in the back of throat and that he feels like something is in there. Emery states that patient has white patches in throat. Pharmacy: [facility] in [facility]. Plan: Message pended to provider for review. Please follow up with Emery with update as to plan. documented in this encounter Plan of Treatment Upcoming Encounters Date Type Department Care Team (Late st Contact Info) Description 11/10/2023 8:30 AM EDT Infusion Hematology Oncology at [address] [address] 11/30/2023 8:30 AM EDT Office Visit Hematology/Oncology at [address] [address] Bisi Hollis APRN [address] [place] [address] DR HEMATOLOGY AND ONCOLOGY [place], [place] [address] 11/30/2023 9:00 AM EDT Infusion Hematology Oncology at [address] [address] 12/07/2023 11:15 AM EDT Office Visit [place] [address] Daisy Lloyd PA [facility] DR [place] [address] documented as of this encounter Visit Diagnoses Not on filedocumented in this encounter Care Teams Wire Threader Relationship Specialty Start Date End Date Nick Martinez MD [address] [place] [address] PCP - General Internal Medicine 07/01/18 documented as of this encounter
--- OUTSIDE RECORDS SUMMARY | 2023-10-27 15:21 | XMS_ITS | Encounter Summary ---
Author Organization [facility] [place] [address] Care Team Providers Care Private Equity Analyst Name Role Phone Nick Martinez MD Primary Care Provider [phone] Encounter Details Date Type Department Care Team (Late st Contact Info) Description 02/08/2023 Orders Only Hematology [place] [address] Ella Diego APRN [facility] [place] [address] Nicotine dependence with other nicotine-induced disorder, unspecified [...] AM EDT Infusion Hematology Oncology at [address] [address] 11/30/2023 8:30 AM EDT Office Visit Hematology/Oncology at [address] [address] Bisi Hollis APRN [address] [place] [address] DR [place]EMATOLOGY [place] [address] 11/30/2023 9:00 AM EDT Infusion Hematology Oncology at [address] [address] 12/07/2023 11:15 AM EDT Office Visit [place] [address] Daisy Lloyd PA [facility] [place] [address] documented as of this encounter Visit Diagnoses Diagnosis Nicotine dependence with other nicotine-induced disorder, unspecified nicotine product type documented in this encounter Care Teams Private Equity Analyst Relationship Specialty Start Date End Date Nick Martinez MD [address] [place] [address] PCP - General Internal Medicine 07/01/18 documented as of this encounter
--- OUTSIDE RECORDS SUMMARY | 2023-10-27 15:21 | XMS_ITS | Encounter Summary ---
Author Organization [facility] [place] [address] Care Team Providers Care Order Processing Manager Name Role Phone Nick Martinez MD Primary Care Provider Reason for Visit * Diagnostic Test (Routine) - Denied Specialty Diagnoses / Procedures Referred By Mariana workman Referred To Contact Radiology Diagnoses Primary malignant neoplasm of right upper lobe of lung Procedures NM PET CT Skull Base to Mid-thigh Ella Diego APRN [facility] HEMATOLOGY [place] [address] [place] [address] Referral ID Status Reason Start Date Expiration Date V isits Requested Visits Authorized [id number] Denied Specialty Service Requested 04/29/2023 04/29/2023 1 0 Encounter Details Date Type Department Care Team (Late st Contact Info) Description 04/29/2023 9:39 AM EST - 04/29/2023 11:59 PM [facility] Hospital Encounter [place] [address] Ella Diego APRN [facility] HEMATOLOGY [place] [address] Discharge Disposition: Home Social History [...] AM EDT Infusion Hematology Oncology at [address] [address] 11/30/2023 8:30 AM EDT Office Visit Hematology/Oncology at [address] [address] Bisi Hollis APRN [address] [place] [address] DR HEMATOLOGY AND ONCOLOGY [place], [place] [address] 11/30/2023 9:00 AM EDT Infusion Hematology Oncology at [address] [address] 12/07/2023 11:15 AM EDT Office Visit [place] [address] Daisy Lloyd PA [facility] DR HEMATOLOGY [place] [address] documented as of this encounter Procedures Procedure Name Priority Date/Time Associated Diagnosis Comments NM PET CT SKULL BASE TO MID-THIGH ([facility]) Routine 04/29/2023 12:12 PM EST Primary malignant neoplasm of right upper lobe of lung POCT GLUCOSE Routine 04/29/2023 10:47 AM EST documented in this encounter Results * POCT Glucose (04/29/2023 10:47 AM EST) Glucose, POC 115 65 - 199 mg/dL [facility] Comment: Supplemental ranges: <140 mg/dL before meals <180 mg/dL all other times of the day Blood 04/29/2023 10:4 7 AM EST 04/29/2023 10:47 AM EST Ella Diego APRN POINT OF CARE TEST ORDERABLES [facility] [place] [address] documented in this encounter Visit Diagnoses Not on filedocumented in this encounter Care Teams Order Processing Manager Relationship Specialty Start Date End Date Nick Martinez MD [address] [place] [address] PCP - General Internal Medicine 07/01/18 documented as of this encounter
--- OUTSIDE RECORDS SUMMARY | 2023-10-27 15:21 | XMS_ITS | Encounter Summary ---
[place] [address] Care Team Providers Care Infrastructure Manager Name Role Phone Nick Martinez MD Primary Care Provider [phone] Encounter Details Date Type Department Care Team (Late st Contact Info) Description 04/28/2023 Telephone Hematology [place] [address] Isabelle Andrews, RN Social History Tobacco Use Types Packs/Day Years Used Date Smoking Tobacco: Former Smokeless Tobacco: Current Chew Comments:1 can per day. Plan s to quit today 02/04/21 Alcohol Use Standard Drinks/Week Comments Yes 0 (1 standard drink = 0.6 oz pur e alcohol) on occassion only [facility] Utilities Answer Date Recorded In the past 12 months has [employer], gas, oil, or water [employer] threatened to shut off services in your [...] that Tuesday night pt was seen at [facility] ED. Brought there for right foot [...] get pt to be seen here in [facility] (advised from Brandie MYERS).She was on board with plan. She was going to call who is able, capable and willing to drive ptto our ED. This RN clearly stated with verbal acknowledgement from mich that if at any point the does not feel safe to drive pt, or during the drive she feels unsafe, to thread puller and call 911. Mich will call us back to confirm that pt is on board with plan and that they are going to come down to see us. Waiting on a call back from valerie. Brandie MYERS will call [facility] to give report, as well as neurosurgery. 1139 04/28: [place] [employer] Blank Handler able to confirm from pt call in that they will be on their way to [facility]. Team is aware through secure chat. documented in this encounter Plan of Treatment Upcoming Encounters Date Type Department Care Team (Late st Contact Info) Description 11/10/2023 8:30 AM EDT Infusion Hematology Oncology at [address] [phone] 11/30/2023 8:30 AM EDT Office Visit Hematology/Oncology at [address] [phone] Bisi Hollis APRN [address] [place] [address] DR HEMATOLOGY AND ONCOLOGY [place], [place] [address] 11/30/2023 9:00 AM EDT Infusion Hematology Oncology at [address] [phone] 12/07/2023 11:15 AM EDT Office Visit [place] [address] Daisy Lloyd PA [facility] DR [place] [address] documented as of this encounter Visit Diagnoses Not on filedocumented in this encounter Care Teams Infrastructure Manager Relationship Specialty Start Date End Date Nick Martinez MD [address] [place] [address] PCP - General Internal Medicine 07/01/18 documented as of this encounter
--- OUTSIDE RECORDS SUMMARY | 2023-10-27 15:21 | XMS_ITS | Encounter Summary ---
[place] [address] Care Team Providers Care Skip Operator Name Role Phone Nick Martinez MD Primary Care Provider Reason for Referral * Diagnostic Test (Routine) - Closed Specialty Diagnoses / Procedures Referred By Mariana wokrman Referred To Contact Radiology Diagnoses Secondary malignant neoplasm of brain Procedures MRI Brain wwo Stereotactic Planning Carlos Marie MD [facility] [place] [address] [place] [address] Referral ID Status Reason Start Date Expiration Date V isits Requested Visits Authorized [id number] Closed Specialty Service Requested 05/04/2023 11/01/2024 1 1 * Consultation (Routine) - Closed Specialty Diagnoses / Procedures Referred By Mariana workman Referred To Contact Radiation Oncology Diagnoses Secondary malignant neoplasm of brain Procedures Simulation for Radiation Therapy Planning Carlos Marie MD [facility] [place] [address] [facility] [place] [address] Referral ID Status Reason Start Date Expiration Date V isits Requested Visits Authorized [id number] Closed Consult, Test & Treat 05/11/2023 06/11/2023 4 4 Encounter Details Date Type Department Care Team (Late st Contact Info) Description 05/04/2023 Notes Only Radiation Oncology at [facility] [place] [address] Carlos Marie MD [facility] [place] [address] Social History Tobacco Use Types Packs/Day Years Used Date Smoking Tobacco: Former Smokeless Tobacco: Current Chew Comments:1 can per day. Plan s to quit today 02/04/21 Alcohol Use Standard Drinks/Week Comments Yes 0 (1 standard drink = 0.6 oz pur e alcohol) on occassion only [facility] Utilities Answer Date Recorded In the past 12 months has th e [employer], gas, oil, or water [employer] threatened to shut off services in [...] from the original note were not included. [facility] Medicine Radiation Oncology Radiation Oncology Telephone Note [...] and hold until treatment Carlos Marie MD [facility] Radiation Oncology documented in this encounter Plan of Treatment Upcoming Encounters Date Type Department Care Team (Late st Contact Info) Description 11/10/2023 8:30 AM EDT Infusion Hematology Oncology at [address] [phone] 11/30/2023 8:30 AM EDT Office Visit Hematology/Oncology at [address] [phone] Bisi Hollis [employer] [address] [place] [address] DR HEMATOLOGY [place] [address] 11/30/2023 9:00 AM EDT Infusion Hematology Oncology at [address] [phone] 12/07/2023 11:15 AM EDT Office Visit [place] [phone] Daisy Lloyd PA [facility] DR HEMATOLOGY [place] [address] Scheduled Orders Name Type Priority Associated Diagnoses [...] have questions please contact the health pediatric acute care unit nurse that requested your imaging first. ? [...] Procedure Note Alissa De Anda MD - 03/06/2024 EXAMINATION: MRI BRAIN WWO STEREOTACTIC PLANNING CLINICAL [...] who have questions please contactthe health pediatric acute care unit nurse that requested your imaging first. Electronically signed by: Alissa De Anda [facility]([phone]), at 05/11/2023 3:09 PM Carlos Marie MD IMG MRI ORDERABLES documented in this encounter Visit Diagnoses Diagnosis 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 of brain and spinal cord 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 of brain and spinal cord documented in this encounter Care Teams Skip Operator Relationship Specialty Start Date End Date Nick Martinez MD [address] [place] [address] PCP - General Internal Medicine 07/01/18 documented as of this encounter
--- OUTSIDE RECORDS SUMMARY | 2023-10-27 15:21 | XMS_ITS | Encounter Summary ---
[place] [address] Care Team Providers Care Artificial Flowers Supervisor Name Role Phone Nick Martinez MD Primary Care Provider Encounter Details Date Type Department Care Team (Late st Contact Info) Description 04/25/2023 2:20 AM EST Ancillary Procedure [place] [address] Nick Martinez MD [address] [place] [address] Social History Tobacco Use Types [...] 8:30 AM EDT Infusion Hematology Oncology at [address] [address] 11/30/2023 8:30 AM EDT Office Visit Hematology/Oncology at [address] [phone] Bisi Hollis APRN [address] [place] [address] DR [place] [address] 11/30/2023 9:00 AM EDT Infusion Hematology Oncology at [address] [phone] 12/07/2023 11:15 AM EDT Office Visit [place] [address] Daisy Lloyd PA [facility] DR HEMATOLOGY [place] [address] documented as of this encounter Procedures Procedure Name Priority Date/Time Associated Diagnosis Comments FILM LIBRARY STORAGE ONLY CT HEAD AND SPINE Routine 04/25/2023 2:18 AM EST documented in this encounter Results * Film Library- Storage Only CT Head And Spine (04/25/2023 2:18 AM EST) Narrative [facility] - 04/25/2023 2:18 AM EST This exam is auto-finalizing. It's purpose is for storage only. Nick Martinez MD G FILM LIBRARY ORD ERABLES Performing Organization Address City/State/[facility] Co de Phone Number [place], [place] documented in this encounter Visit Diagnoses Not on filedocumented in this encounter Care Teams Artificial Flowers Supervisor Relationship Specialty Start Date End Date Nick Martinez MD [address] [place] [address] PCP - General Internal Medicine 07/01/18 documented as of this encounter
--- OUTSIDE RECORDS SUMMARY | 2023-10-27 15:21 | XMS_ITS | Encounter Summary ---
Author Organization [facility] [place] [address] Care Team Providers Care Press Operator Assistant Name Role Phone Nick Martinez MD Primary Care Provider [phone] Encounter Details Date Type Department Care Team (Latest Contact Info) Description 04/28/2023 Travel Social History Tobacco Use Types Packs/Day Years Used Date Smoking Tobacco: Former Smokeless Tobacco: Current Chew Comments:1 can per day. Plan s to quit today 02/04/21 Alcohol Use Standard Drinks/Week Comments Yes 0 (1 standard drink = 0.6 oz pur e alcohol) on occassion only [facility] Utilities Answer Date [...] AM EDT Infusion Hematology Oncology at [address] [phone] 11/30/2023 8:30 AM EDT Office Visit Hematology/Oncology at [address] [phone] Bisi Hollis [employer] [address] [place] [address] DR HEMATOLOGY [place] [address] 11/30/2023 9:00 AM EDT Infusion Hematology Oncology at [address] [address] 12/07/2023 11:15 AM EDT Office Visit [place] [address] Daisy Lloyd PA [facility] DR [place] [address] documented as of this encounter Visit Diagnoses Not on filedocumented in this encounter Care Teams Press Operator Assistant Relationship Specialty Start Date End Date Nick Martinez MD [address] [place] [address] PCP - General Internal Medicine 07/01/18 documented as of this encounter
--- OUTSIDE RECORDS SUMMARY | 2023-10-27 15:21 | XMS_ITS | Encounter Summary ---
Author Organization [facility] [address] Care Team Providers Care Cloth Napping Supervisor Name Role Phone Nick Martinez MD Primary Care Provider [phone] Encounter Details Date Type Department Care Team (Latest Contact Info) Description 02/04/2023 6:50 AM EST - 02/04/2023 7:21 AM [facility] Hospital Encounter Hematology [place] [phone] Primary malignant neoplasm of right upper lobe [...] AM EDT Infusion Hematology Oncology at [address] [phone] 11/30/2023 8:30 AM EDT Office Visit Hematology/Oncology at [address] [phone] Bisi Hollis APRN [address] [place] [address] DR [place] [address] 11/30/2023 9:00 AM EDT Infusion Hematology Oncology at [address] [phone] 12/07/2023 11:15 AM EDT Office Visit Radiation [place] [address] Daisy Lloyd PA [facility] DR [place] [address] documented as of this encounter Procedures Procedure [...] 6:59 AM EST) Neutrophil % 69.5 % [facility] Neutrophil Absolute 4.01 1.70 - 6.10 x10(3)/mc L [facility] Lymph % 15.1 % [facility] Lymphocytes Abs 0.9 0.9 - 3.2 x10(3)/mc L [facility] Monocyte % 11.6 % [facility] Monocyte Abs 0.7 0.3 - 0.9 x10(3)/mc L [facility] Eos % 1.4 % [facility] Eosinophils Abs 0.1 0.0 - 0.4 x10(3)/mc L [facility] Basophil % 0.3 % [facility] Baso Absolute 0.0 0.0 - 0.1 x10(3)/mc L [facility] Immature Gran % 2.10 % [facility] Comment: Immature granulocytes(IG's)percentage and absolute count will include metamyelocytes, myelocytes, and promyelocytes. Blood smears from CBCs yielding IG's will be scanned manually for concordance. If this scan disagrees with the automated IG or if promyelocytes are noted, a manual differential will be performed. Immature Gran Absolute 0.12(H) 0.00 - 0.04 x10(3)/ L [facility] Blood 02/04/2023 6:59 AM EST 02/04/2023 7:13 AM EST Narrative Resulting Agency Comment Spec In Lab Ella Diego ZUMBA INSTRUCTOR HEMATOLOGY ORDERAB LES [facility] [place] [address] * (ABNORMAL) Hemogram (02/04/2023 6:59 AM EST) White Blood Cell 5.8 4.0 - 9.5 x10(3)/mc L [facility] Red Blood Cell 4.30(L) 4.58 - 5.54 x10(6)/mc L [facility] Hemoglobin 13.4(L) 13.7 - 16.5 g/dL [facility] Hematocrit 38.0(L) 40.5 - 48.5 % [facility] Mean Cell Volume 88.4 82.9 - 93.1 fL [facility] Mean Cell Hemoglobin 31.2 27.5 - 32.1 pg [facility] Mean Cell Hemoglobin Concentration 35.3 32.0 - 35.7 g/dL [facility] Platelet 202 145 - 357 x10(3)/mc L [facility] RDW Standard Deviation 40.4 36.0 - 45.0 fL [facility] RDW coefficient of variation 12.6 11.4 - 13.8 % [facility] Mean Platelet Volume 9.1 7.6 - 12.9 fL [facility] NRBC% auto 0.0 % [facility] NRBC Absolute 0.000 0.000 - 0.000 x10(3)/mc L [facility] Blood 02/04/2023 6:59 AM EST 02/04/2023 7:13 AM EST Narrative Resulting Agency Comment Spec In Lab Ella Diego ZUMBA INSTRUCTOR HEMATOLOGY ORDERAB LES [facility] [address] * Comprehensive metabolic panel (non-fasting) (02/04/2023 6:59 AM EST) Glucose 102 65 - 199 mg/dL [facility] Comment:Diabetes: >=200 mg/d L plus symptoms Blood Urea Nitrogen 15 10 - 20 mg/dL [facility] Creatinine 1.30 0.80 - 1.50 mg/dL [facility] Sodium 139 135 - 145 mmol/L [facility] Potassium 4.2 3.5 - 5.0 mmol/L [facility] Comment: Please note: ??Patients with WBC >100,000 may have falsely elevated Potassium levels. ??For accurate Potassium quantification in these patients send serum separator tube (gold top) for subsequent determinations. ??Contact the Clinical Chemistry Laboratory if there are any questions. Chloride 102 98 - 107 mmol/L [facility] Carbon Dioxide 31 22 - 31 mmol/L [facility] Anion Gap 6 5 - 15 mmol/L [facility] Calcium 9.1 8.5 - 10.5 mg/dL [facility] Protein, Total 7.1 6.1 - 8.0 g/dL [facility] Albumin 4.5 3.2 - 5.2 g/dL [facility] Aspartate Aminotransferase 25 0 - 39 unit/L [facility] Alanine Aminotransferase 25 0 - 55 unit/L [facility] Alkaline Phosphatase 71 40 - 130 unit/L [facility] Bilirubin, Total 0.3 0.2 - 1.3 mg/dL [facility] Est Glomerular Filtration Rate 61 >=60 mL/min/1. 73 m?? [facility] Comment: This patient's estimated GFR was [...] Lab Ella Diego APRN [place] [address] documented in this encounter Visit Diagnoses Diagnosis Primary malignant neoplasm of right upper lobe of lung Malignant neoplasm of upper lobe, bronchus or lung documented in this encounter Care Teams Cloth Napping Supervisor Relationship Specialty Start Date End Date Nick Martinez MD [address] [place] [address] PCP - General Internal Medicine 07/01/18 documented as of this encounter
--- OUTSIDE RECORDS SUMMARY | 2023-10-27 15:21 | XMS_ITS | Encounter Summary ---
Author Organization [facility] [place] [address] Care Team Providers Care Length Control Tester Name Role Phone Nick Martinez MD Primary Care Provider [phone] Encounter Details Date Type Department Care Team (Late st Contact Info) Description 04/25/2023 Orders Only Hematology [place] [address] Ella Diego APRN [facility] [place] [address] Primary malignant neoplasm of right upper lobe [...] AM EDT Infusion Hematology Oncology at [address] [phone] 11/30/2023 8:30 AM EDT Office Visit Hematology/Oncology at [address] [phone] Bisi Hollis APRN [address] [place] [address] DR HEMATOLOGY [place] [address] 11/30/2023 9:00 AM EDT Infusion Hematology Oncology at [address] [phone] 12/07/2023 11:15 AM EDT Office Visit [place] [address] Daisy Lloyd PA [facility] DR [place] [address] documented as of this encounter Visit Diagnoses Diagnosis Primary malignant neoplasm of right upper lobe of lung Malignant neoplasm of upper lobe, bronchus or lung documented in this encounter Care Teams Length Control Tester Relationship Specialty Start Date End Date Nick Martinez MD [address] [place] [address] PCP - General Internal Medicine 07/01/18 documented as of this encounter
--- OUTSIDE RECORDS SUMMARY | 2023-10-27 15:21 | XMS_ITS | Encounter Summary ---
[place] [address] Care Team Providers Care Inker Machine Name Role Phone Nick Martinez MD Primary Care Provider [phone] Encounter Details Date Type Department Care Team (Late st Contact Info) Description 02/08/2023 Telephone Hematology [place] [address] James Javier RN Social History [...] 02/08/2023 2:27 PM EST Message receive from [facility]: nicotine polacrilex (Commit) 2 mg buccal lozenge [[id number]] nicotine polacrilex (Nicorette) 4 mg gum [[id number]] These are the 2 prescriptions the pharmacy is calling about. T/C to patient: Call placed to [facility] who confirmed that they need maximum daily use and frequency on Nicotine Gum and Nicotine Polacrilex. Per Dr Tovar:Ella is reordering them with some sort of limit right now documented in this encounter Plan of Treatment Upcoming Encounters Date Type Department Care Team (Late st Contact Info) Description 11/10/2023 8:30 AM EDT Infusion Hematology Oncology at [address] [phone] 11/30/2023 8:30 AM EDT Office Visit Hematology/Oncology at [address] [phone] Bisi Hollis APRN [address] [place] [address] [place] [address] 11/30/2023 9:00 AM EDT Infusion Hematology Oncology at [address] [address] 12/07/2023 11:15 AM EDT Office [place] [address] Daisy Lloyd PA [facility] DR HEMATOLOGY [place] [address] documented as of this encounter Visit Diagnoses Not on filedocumented in this encounter Care Teams Inker Machine Relationship Specialty Start Date End Date Nick Martinez MD [address] [place] [address] PCP - General Internal Medicine 07/01/18 documented as of this encounter
--- OUTSIDE RECORDS SUMMARY | 2023-10-27 15:21 | XMS_ITS | Encounter Summary ---
Author Organization [facility] [place] [address] Care Team Providers Care Correctional Supervising Cook Name Role Phone Nick Martinez MD Primary Care Provider [phone] Encounter Details Date Type Department Care Team [...] 8:30 AM EDT Infusion Hematology Oncology at [address] [phone] 11/30/2023 8:30 AM EDT Office Visit Hematology/Oncology at [address] [phone] Bisi Hollis APRN [address] [place] [address] DR [place] [address] 11/30/2023 9:00 AM EDT Infusion Hematology Oncology at [address] [phone] 12/07/2023 11:15 AM EDT Office Visit [place] [address] Daisy Lloyd PA [facility] DR HEMATOLOGY [place] [address] documented as of this encounter Visit Diagnoses Not on filedocumented in this encounter Care Teams Correctional Supervising Cook Relationship Specialty Start Date End Date Nick Martinez MD [address] [place] [address] PCP - General Internal Medicine 07/01/18 documented as of this encounter
--- OUTSIDE RECORDS SUMMARY | 2023-10-27 15:21 | XMS_ITS | Encounter Summary ---
Author Organization [facility] [place] [address] Care Team Providers Care Steaming Cabinet Tender Name Role Phone Nick Martinez MD Primary Care Provider [phone] Encounter Details Date Type Department Care Team (Late st Contact Info) Description 05/05/2023 Orders Only [place] [address] Carlos Marie MD [facility] DR [place] [address] Social History Tobacco Use Types Packs/Day Years Used Date Smoking Tobacco: Former Smokeless Tobacco: Current Chew Comments:1 can per day. Plan s to quit today 02/04/21 Alcohol Use Standard Drinks/Week Comments Yes 0 (1 standard drink = 0.6 oz pur e alcohol) on occassion only [facility] Utilities Answer Date Recorded In the past 12 months has [employer] electric, gas, oil, or water company threatened [...] AM EDT Infusion Hematology Oncology at [address] [phone] 11/30/2023 8:30 AM EDT Office Visit Hematology/Oncology at [address] [phone] Bisi Hollis APRN [address] [place] [address] DR HEMATOLOGY [place] [address] 11/30/2023 9:00 AM EDT Infusion Hematology Oncology at [address] [address] 12/07/2023 11:15 AM EDT Office [place] [address] Daisy Lloyd PA [facility] DR HEMATOLOGY [place] [address] documented as of this encounter Visit Diagnoses Not on filedocumented in this encounter Care Teams Steaming Cabinet Tender Relationship Specialty Start Date End Date Nick Martinez MD [address] [place] [address] PCP - General Internal Medicine 07/01/18 documented as of this encounter
--- OUTSIDE RECORDS SUMMARY | 2023-10-27 15:21 | XMS_ITS | Encounter Summary ---
[place] [address] Care Team Providers Care Mobile Application Developer Name Role Phone Nick Martinez MD Primary Care Provider [phone] Encounter Details Date Type Department Care Team (Late st Contact Info) Description 05/11/2023 Notes Only Hematology [place] [address] Isabelle Andrews, RN Social History Tobacco Use [...] Recorded In the past 12 months has [employer], gas, oil, or water [employer] threatened to shut off services in your [...] and lab specimens collected and shipped to [employer] extension specialist. [employer] documented in this encounter Plan of Treatment Upcoming Encounters Date Type Department Care Team (Late st Contact Info) Description 11/10/2023 8:30 AM EDT Infusion Hematology Oncology at [address] [phone] 11/30/2023 8:30 AM EDT Office Visit Hematology/Oncology at [address] [phone] Bisi Hollis APRN [address] [place] [address] DR [place]EMAT[place]Y [place] [address] 11/30/2023 9:00 AM EDT Infusion Hematology Oncology at [address] [phone] 12/07/2023 11:15 AM EDT Office Visit [place] [address] Daisy Lloyd PA [facility] DR [place] [address] documented as of this encounter Visit Diagnoses Not on filedocumented in this encounter Care Teams Mobile Application Developer Relationship Specialty Start Date End Date Nick Martinez MD [address] [place] [address] PCP - General Internal Medicine 07/01/18 documented as of this encounter
--- OUTSIDE RECORDS SUMMARY | 2023-10-27 15:21 | XMS_ITS | Encounter Summary ---
[place] [address] Care Team Providers Care Services Clerk Name Role Phone Nick Martinez MD Primary Care Provider [phone] Encounter Details Date Type Department Care Team (Late st Contact Info) Description 05/13/2023 Telephone Hematology [place] [address] James Javier RN Social History Tobacco Use Types Packs/Day Years Used Date Smoking Tobacco: Former Smokeless Tobacco: Current Chew Comments:1 can per day. Plan s to quit today 02/04/21 Alcohol Use Standard Drinks/Week Comments Yes 0 (1 standard drink = 0.6 oz pur e alcohol) on occassion only [facility] Utilities Answer Date Recorded In the past 12 months has [email or web address], gas, oil, or water [employer] threatened to shut off services in your [...] AM EST ----- Regarding: Patient having symptoms [phone] Hawa, pt sister, called to report that [...] AM EDT Infusion Hematology Oncology at [address] [phone] 11/30/2023 8:30 AM EDT Office Visit Hematology/Oncology at [address] [phone] Bisi Hollis APRN [address] [place] [address] DR HEMATOLOGY AND ONCOLOGY [place], [place] [address] 11/30/2023 9:00 AM EDT Infusion Hematology Oncology at [address] [phone] 12/07/2023 11:15 AM EDT Office Visit [place] [address] Daisy Lloyd PA [facility] DR HEMATOLOGY [place] [address] documented as of this encounter Visit Diagnoses Not on filedocumented in this encounter Care Teams Services Clerk Relationship Specialty Start Date End Date Nick Martinez MD [address] [place] [address] PCP - General Internal Medicine 07/01/18 documented as of this encounter
--- OUTSIDE RECORDS SUMMARY | 2023-10-27 15:21 | XMS_ITS | Encounter Summary ---
Author Organization [facility] [place] [address] Care Team Providers Care Visual Education Teacher Name Role Phone Nick Martinez MD [...] [facility] DR HEMATOLOGY [place] [address] [address] Referral ID Status Reason Start Date Expiration Date Visits Requested Visits Authorized [id number] New Request Specialty Service Requested 05/11/2023 11/10/2024 1 1 Reason for Visit * Reason Comments Follow-up Encounter Details Date Type Department Care Team (Late st Contact Info) Description 05/11/2023 11:00 AM EST Office Visit [place]ematology [place] [phone] Boy Tovar MD [facility] HEMATOLOGY [place] [address] Nicotine dependence with nicotine-induced disorder, [...] occassion only [facility] Utilities Answer Date Recorded In the past 12 months has th e [employer], gas, oil, or water [employer] threatened to shut off services in your [...] not included. 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 [...] that we will prioritize treatment of his AIR DIRECTOR disease right now # NSCLC-reviewed the images [...] we should still prioritize treatment of the AIR DIRECTOR lesion I think once that is completed [...] Boy Tovar MD, MS 05/11/2023 Thoracic Oncology [facility] CC: Serenity Larson [place] HPI/Interval History/Subjective: Last seen 02/04/2023 Has a new PCP- Serenity Larson APRN 6 weeks ago noted some weakness on the right side of his body and then had a right leg partial seizure which prompted a visit to [facility] where a left frontal parietal lesion was [...] History/Support Network: Home situation: Lives with in [facility] with Velvet. 35 years. 3 children and plan to adopt another one through foster care. 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 40 Pk [...] brain was not included in the imaged vweqh-oq-pcoq on the current study. 08/10/2021 3:38 PM [...] AM EDT Infusion Hematology Oncology at [address] [phone] 11/30/2023 8:30 AM EDT Office Visit Hematology/Oncology at [address] [phone] Bisi Hollis APRN [address] [place] [address] [place] [address] 11/30/2023 9:00 AM EDT Infusion Hematology Oncology at [address] [phone] 12/07/2023 11:15 AM EDT Office Visit [place] [address] Daisy Lloyd PA [facility] DR HEMATOLOGY [place] [address] Scheduled Orders Name Type Priority Associated Diagnoses Orde r Schedule CT Chest Abdomen Pelvis w Contrast (Generic) Imaging Routine 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 Secondary malignant neoplasm of right adrenal gland Expected: 06/11/2023 (Approximate), Expires: 05/10/2024 documented as of this encounter Results * Research Venipuncture (05/11/2023 12:39 PM EST) Research Venipuncture Drawn [facility] Blood 05/11/2023 12:3 9 PM EST 05/11/2023 1:05 PM EST Narrative Resulting Agency Comment Spec In Lab Boy Tovar MD CHEMISTRY ORDERABLES Performing Organization Address City/State/[facility] Co de Phone Number [facility] [place] [phone] documented in this encounter Visit Diagnoses Diagnosis Nicotine dependence with nicotine-induced disorder, unspecified nicotine product type Primary malignant neoplasm of right upper lobe of lung Malignant neoplasm of upper lobe, bronchus or lung Brain metastasis 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
--- OUTSIDE RECORDS SUMMARY | 2023-10-27 15:21 | XMS_ITS | Encounter Summary ---
[place] [address] Care Team Providers Care Mannequin Coloring Artist Name Role Phone Nick Martinez MD Primary Care Provider [phone] Reason for Visit * Reason Onset Date Comments Prior Authorization 05/12/2023 Encounter Details Date Type Department Care Team (Late st Contact Info) Description 05/12/2023 Telephone Hematology [place] [address] Manjula Liu Prior Authorization Social History Tobacco Use Types Packs/Day Years Used Date Smoking Tobacco: Former Smokeless Tobacco: Current Chew Comments:1 can per day. Plan s to quit today 02/04/21 Alcohol Use Standard Drinks/Week Comments Yes 0 (1 standard drink = 0.6 oz pur e alcohol) on occassion only [employer] Utilities Answer Date Recorded In the past 12 months has [employer], gas, oil, or water [employer] threatened to shut off services in your [...] 1:57 PM EST Procedure Prior Authorization Procedure/Cpt: 72331, [address]672 Ct c/a/p Rationale: C34.11, C79.31, C79.71 Health Plan: [facility] Authorizing Vendor: [employer] Order/ Effective Date: 05/12/2023 - 07/10/2023 Status: Approved Rendering Facility: [facility] documented in this encounter Plan of Treatment Upcoming Encounters Date Type Department Care Team (Late st Contact Info) Description 11/10/2023 8:30 AM EDT Infusion Hematology Oncology at [address] [phone] 11/30/2023 8:30 AM EDT Office Visit Hematology/Oncology at [address] [phone] Bisi Hollis APRN [address] [place] [address] DR HEMATOLOGY AND ONCOLOGY [place], [place] [address] 11/30/2023 9:00 AM EDT Infusion Hematology Oncology at [address] [phone] 12/07/2023 11:15 AM EDT Office Visit [place] [address] Daisy Lloyd PA [facility] DR [place] [address] documented as of this encounter Visit Diagnoses Not on filedocumented in this encounter Care Teams Mannequin Coloring Artist Relationship Specialty Start Date End Date Nick Martinez MD [address] [place] [address] PCP - General Internal Medicine 07/01/18 documented as of this encounter
--- OUTSIDE RECORDS SUMMARY | 2023-10-27 15:21 | XMS_ITS | Encounter Summary ---
Author Organization [facility] [place] [address] Care Team Providers Care Diffusion Operator Name Role Phone Nick Martinez MD Primary Care Provider [phone] Encounter Details Date Type Department Care Team (Late st Contact Info) Description 04/29/2023 2:00 PM EST Office Visit Radiation Oncology at [address] [phone] Carlos Marie MD [facility] DR RADIATION [place] [address] Brain metastasis Social History Tobacco Use Types Packs/Day Years Used Date Smoking Tobacco: Former Smokeless Tobacco: Current Chew Comments:1 can per day. Plan s to quit today 02/04/21 Alcohol Use Standard Drinks/Week Comments Yes 0 (1 standard drink = 0.6 oz pur e alcohol) on occassion only [facility] Utilities Answer Date Recorded In the past 12 months has [employer], gas, oil, or water company threatened [...] Guided Biopsy Lung 12/01/2020 Jarad Parada, DO [facility] RAD CAT SCAN PRO BRNCHSC EBUS GUIDED SAMPL 3/> NODE STATION/STRUX N/A 12/31/2020 BRONCH, W ENDOBRONCHIAL ULTRASOUND (EBUS) GUIDED SAMPLING, 3+ NODES (WRVU 5.21) performed by Roman Teran MD at [facility] MAIN OR Social History: Driving from [employer] [place] Alcohol/Drug/Tobacco use - Occasional alcohol use. Chews tobacco. 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 Support Systems: , kids transportation plan: [ X]private vehicle [ ] RCT needs Social Work referral [ ] Unknown at this time needs Social Work referral Barriers to treatment: None Referrals/Interventions: Will see SPECIAL ASSEMBLIES SUPERVISOR per routine during SIM appointment. TEACHING: Learning Assessment Does the primary learner have any barriers to learning?: No Barriers How does the primary learner prefer to learn new concepts?: Listening, Reading, Demonstration, Pictures/Video Education material provided: Will be provided during SIM appointment per routine * Carlos Marie MD - 04/29/2023 2:00 PM EST Images from the original note were not included. [facility] Medicine Radiation Oncology Radiation Oncology Consultation Report n Patient identifiers/demographics: Name: Raffy Latif Date of : 1960 Referring physician/service: Nick Martinez MD [address] [place] [address] Primary oncologist: Agustin Tovar MD Primary care physician: Nick Martinez MD [address] [place] [address] Chief complaint/reason for visit: Lung cancer new [...] on Tuesday night. Presented to ED at [facility] and head CT was done that showed [...] to limp. He was working as truck washer, not working now. He was in ED [...] 130/83 99 % NAD NCAT, symmetric face, Gut Cleaner intact, speech normal UE/LE strength and sensation [...] care of Raffy Latif. Carlos Marie MD [facility] Radiation Oncology National [employer] [facility] (NCI) [facility] [employer] Commission on Cancer (ACS [place]) Accredited Cancer Program [employer] (ACR) Accredited Radiation Oncology Program documented in this encounter Plan of Treatment Upcoming Encounters Date Type Department Care Team (Late st Contact Info) Description 11/10/2023 8:30 AM EDT Infusion Hematology Oncology at [address] [phone] 11/30/2023 8:30 AM EDT Office Visit Hematology/Oncology at [address] [phone] Bisi Hollis APRN [address] [place] [address] DR HEMATOLOGY AND ONCOLOGY [place], [place] [address] 11/30/2023 9:00 AM EDT Infusion Hematology Oncology at [address] [phone] 12/07/2023 11:15 AM EDT Office [place] [address] Daisy Lloyd PA [facility] DR HEMATOLOGY [place] [address] documented as of this encounter Visit Diagnoses Diagnosis Brain metastasis Secondary malignant neoplasm of brain and spinal cord documented in this encounter Care Teams Diffusion Operator Relationship Specialty Start Date End Date Nick Martinez MD [address] [place] [address] PCP - General Internal Medicine 07/01/18 documented as of this encounter
--- OUTSIDE RECORDS SUMMARY | 2023-10-27 15:21 | XMS_ITS | Encounter Summary ---
[place] [address] Care Team Providers Care Recapper Name Role Phone Nick Martinez MD Primary Care Provider [phone] Reason for Referral * Diagnostic Test (Routine) - Denied Specialty Diagnoses / Procedures Referred By Contac t Referred To Contact Radiology Diagnoses Primary malignant neoplasm of right upper lobe of lung Procedures NM PET CT Skull Base to Mid-thigh Ella Diego APRN [facility] DR [place] [address] [place] [address] Referral ID Status Reason Start Date Expiration Date V isits Requested Visits Authorized [id number] Denied Specialty Service Requested 04/29/2023 04/29/2023 1 0 Reason for Visit * Diagnostic Test (Routine) - Denied Specialty Diagnoses / Procedures Referred By Contac t Referred To Contact Radiology Diagnoses Primary malignant neoplasm of right upper lobe of lung Procedures NM PET CT Skull Base to Mid-thigh Ella Diego APRN [facility] [place] [address] [place] [address] Referral ID Status Reason Start Date Expiration Date V isits Requested Visits Authorized [id number] Denied Specialty Service Requested 04/29/2023 04/29/2023 1 0 Encounter Details Date Type Department Care Team (Late st Contact Info) Description 04/29/2023 9:39 AM EST - 04/29/2023 11:59 PM EST Hospital Encounter [place] [phone] Ella Diego, [place] [facility] DR [place] [address] Primary malignant neoplasm of right [...] AM EDT Infusion Hematology Oncology at [address] [phone] 11/30/2023 8:30 AM EDT Office Visit Hematology/Oncology at [address] [phone] Bisi Hollis [address] HEMATOLOGY AND ONCOLOGY [place], [place] [address] 11/30/2023 9:00 AM EDT Infusion Hematology Oncology at [address] [phone] 12/07/2023 11:15 AM EDT Office [place] [address] Daisy Lloyd PA [facility] DR [place] [address] documented as of this encounter Procedures Procedure [...] brain was not included in the imaged psngh-nh-rllk on the current study. I have personally [...] who have questions please contact the health rental boats caretaker that requested your imaging first. ? Electronically signed by: Alfredo Jean-Baptiste MD, [facility] ([phone]), at 05/05/2023 3:23 PM Narrative 05/05/2023 3:23 [...] the brain. TECHNIQUE: Following IV injection of 56-mkuwmf-7-deoxyglucose (FDG) a standard uptake of approximately 60 [...] the brain. TECHNIQUE: Following IV injection of 66-zeaidb-9-deoxyglucose (FDG) astandard uptake of approximately 60 minutes, [...] avid aortocaval and left periaortic adenopathy (axial -565 and 175-180), new from prior PET/CT. SKELETON/EXTREMITIES: [...] the brain was not included in the lkdyeojplgn-ih-hdrh on the current study. I have personally reviewed the image(s) and the resident's interpretationand agree with the findings, Alfredo Jean-Baptiste MD at 05/05/2023 3:23 PM Thank you for letting us participate in the care of this patient. If youare a health care provider and have any questions regarding this report,please contact the number below. For patients who have questions please contactthe health rental boats caretaker that requested your imaging first. Electronically signed by: Alfredo Jean-Baptiste MD, [facility]([phone]), at 05/05/2023 3:23 PM Ella Diego BRINE TANK TENDER IMG PET ORDERABLES documented in this encounter [...] Arm documented in this encounter Care Teams Recapper Relationship Specialty Start Date End Date Nick Martinez MD [address] [place] [address] PCP - General Internal Medicine 07/01/18 documented as of this encounter
--- OUTSIDE RECORDS SUMMARY | 2023-10-27 15:21 | XMS_ITS | Encounter Summary ---
Author Organization [facility] [place] [address] Care Team Providers Care Shell Worker Name Role Phone Nick Martinez MD Primary Care Provider [phone] Encounter Details Date Type Department Care Team (Late st Contact Info) Description 04/25/2023 [place] [address] Dimitry Floyd MD [facility] [place] [address] Social History Tobacco Use Types Packs/Day Years [...] AM EDT Infusion Hematology Oncology at [address] [phone] 11/30/2023 8:30 AM EDT Office Visit Hematology/Oncology at [address] [phone] Bisi Hollis APRN [address] [place] [address] DR HEMATOLOGY [place] [address] 11/30/2023 9:00 AM EDT Infusion Hematology Oncology at [address] [phone] 12/07/2023 11:15 AM EDT Office [place] [address] Daisy Lloyd PA [facility] [place] [address] documented as of this encounter Visit Diagnoses Not on filedocumented in this encounter Care Teams Shell Worker Relationship Specialty Start Date End Date Nick Martinez MD [address] [place] [address] PCP - General Internal Medicine 07/01/18 documented as of this encounter
--- OUTSIDE RECORDS SUMMARY | 2023-10-27 15:21 | XMS_ITS | Encounter Summary ---
Author Organization [facility] [place] [address] Care Team Providers Care Tin Flipper Name Role Phone Nick Martinez MD Primary Care Provider Reason for Referral * Diagnostic Test (Routine) - Authorized Specialty Diagnoses / Procedures Referred By Mariana workman Referred To Contact Radiology Diagnoses Primary malignant neoplasm of right upper lobe of lung Procedures CT Chest w Contrast Boy Tovar MD [facility] DR HEMATOLOGY [place] [address] [facility] [place] [address] Referral ID Status Reason Start Date Expiration Date Visits Requested Visits Authorized [id number] Authorized Specialty Service Requested 02/04/2023 08/05/2024 1 1 Reason for Visit * Reason Comments Follow-up Encounter Details Date Type Department Care Team (Late st Contact Info) Description 02/04/2023 9:30 AM EST Office Visit Hematology [place] [address] Boy Tovar MD [facility] DR HEMATOLOGY [place] [address] Ella Diego APRN [facility] DR HEMATOLOGY [place] [address] Primary malignant neoplasm of right upper lobe [...] original note were not included. [place] [address] [phone] Raffy Latif is being seen for cT1cN3 [...] and labs. - [facility] and in pretty verónica terms- prescribed both lozenges and gumfor him to try Boy Tovar MD, MS 02/04/2023 Thoracic Oncology [facility] CC: Serenity Larson APRN HPI/Interval History/Subjective: [...] History/Support Network: Home situation: Lives with in [facility] with Velvet. 35 years. 3 children and plan to adopt another one through foster care. 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 38 Pk [...] AM EDT Infusion Hematology Oncology at [address] [phone] 11/30/2023 8:30 AM EDT Office Visit Hematology/Oncology at [address] [phone] Bisi Hollis APRN [address] [place] [address] DR HEMATOLOGY AND ONCOLOGY [place], [place] [address] 11/30/2023 9:00 AM EDT Infusion Hematology Oncology at [address] [phone] 12/07/2023 11:15 AM EDT Office [place] [address] Daisy Lloyd PA [facility] DR HEMATOLOGY [place] [address] Scheduled Orders Name Type Priority Associated Diagnoses [...] lung documented in this encounter Care Teams Tin Flipper Relationship Specialty Start Date End Date Nick Martinez MD [address] [place] [address] PCP - General Internal Medicine 07/01/18 documented as of this encounter
--- OUTSIDE RECORDS SUMMARY | 2023-10-27 15:21 | XMS_ITS | Encounter Summary ---
[place] [address] Care Team Providers Care Circular Stuffer Name Role Phone Nick Martinez MD Primary Care Provider Reason for Referral * Diagnostic Test (Routine) - Closed Specialty Diagnoses / Procedures Referred By Mariana workman Referred To Contact Radiology Diagnoses Secondary malignant neoplasm of brain Procedures MRI Brain wwo Stereotactic Planning Carlos Marie MD [facility] [place] [address] [place] [address] Referral ID Status Reason Start Date Expiration Date V isits Requested Visits Authorized [id number] Closed Specialty Service Requested 05/04/2023 11/01/2024 1 1 Reason for Visit * Diagnostic Test (Routine) - Closed Specialty Diagnoses / Procedures Referred By Mariana workman Referred To Contact Radiology Diagnoses Secondary malignant neoplasm of brain Procedures MRI Brain wwo Stereotactic Planning Carlos Marie MD [facility] [place] [address] [place] [address] Referral ID Status Reason Start Date Expiration Date V isits Requested Visits Authorized [id number] Closed Specialty Service Requested 05/04/2023 11/01/2024 1 1 Encounter Details Date Type Department Care Team (Latest Contact Info) Description 05/11/2023 8:51 AM EST - 05/11/2023 12:21 PM EST Hospital Encounter Radiology at [facility] [place] [address] Carlos Marie MD [facility] [place] [address] Secondary malignant neoplasm of brain Discharge Disposition: [...] the past 12 months has th e [employer], gas, oil, or water company threatened to [...] 8:30 AM EDT Infusion Hematology Oncology at [address] [phone] 11/30/2023 8:30 AM EDT Office Visit Hematology/Oncology at [address] [phone] Bisi [address]is [address] HEMATOLOGY AND ONCOLOGY [place], [place] [phone] 11/30/2023 9:00 AM EDT Infusion Hematology Oncology at [address] [phone] 12/07/2023 11:15 AM EDT Office Visit [place] [address] Daisy Lloyd PA [facility] DR HEMATOLOGY [place] [address] documented as of this encounter Procedures Procedure [...] who have questions please contact the health adult day care worker that requested your imaging first. ? Electronically signed by: Alissa De Anda [facility] ([phone]), at 05/11/2023 3:09 PM Narrative 05/11/2023 3:09 [...] patients who have questions please contactthe health adult day care worker that requested your imaging first. Carlos Marie MD IMG MRI ORDERABLES documented [...] mLs documented in this encounter Care Teams Circular Stuffer Relationship Specialty Start Date End Date Nick Martinez MD [address] [place] [address] PCP - General Internal Medicine 07/01/18 documented as of this encounter
--- OUTSIDE RECORDS SUMMARY | 2023-10-27 15:21 | XMS_ITS | Encounter Summary ---
[place] [address] Care Team Providers Care Maintenance Mechanic Millwright Name Role Phone Nick Martinez MD Primary Care Provider [phone] Encounter Details Date Type Department Care Team (Late st Contact Info) Description 05/05/2023 Telephone [place] [address] Anahi Cortez RN Social History Tobacco Use Types Packs/Day Years Used Date Smoking Tobacco: Former Smokeless Tobacco: Current Chew Comments:1 can per day. Plan s to quit today 02/04/21 Alcohol Use Standard Drinks/Week Comments Yes 0 (1 standard drink = 0.6 oz pur e alcohol) on occassion only [facility] Utilities Answer Date Recorded In the past 12 months has [employer], gas, oil, or water [employer] threatened to shut off services in your [...] nystatin will be sent to his pharmacy [facility] in [facility] and to call the pharmacy if it's ready for pick up and delivery driver. Called his sister Emery to inform of [...] to help with s/s: Call back number: [phone] documented in this encounter Plan of Treatment Upcoming Encounters Date Type Department Care Team (Late st Contact Info) Description 11/10/2023 8:30 AM EDT Infusion Hematology Oncology at [address] [phone] 11/30/2023 8:30 AM EDT Office Visit Hematology/Oncology at [address] [phone] Bisi Hollis APRN [address] [place] [address] [place] [address] 11/30/2023 9:00 AM EDT Infusion Hematology Oncology at [address] [phone] 12/07/2023 11:15 AM EDT Office Visit [place] [address] Daisy Llody PA [facility] DR HEMATOLOGY [place] [address] documented as of this encounter Visit Diagnoses Not on filedocumented in this encounter Care Teams Maintenance Mechanic Millwright Relationship Specialty Start Date End Date Nick Martinez MD [address] [place] [address] PCP - General Internal Medicine 07/01/18 documented as of this encounter
--- OUTSIDE RECORDS SUMMARY | 2023-10-27 15:21 | XMS_ITS | Encounter Summary ---
Author Organization [facility] [place] [address] Care Team Providers Care Pattern Setter Name Role Phone Nick Martinez MD Primary Care Provider Reason for Visit * Consultation (Routine) - Closed Specialty Diagnoses / Procedures Referred By Mariana workman Referred To Contact Radiation Oncology Diagnoses Secondary malignant neoplasm of brain Procedures Simulation for Radiation Therapy Planning Carlos Marie MD [facility] [place] [address] [facility] [place] [address] Referral ID Status Reason Start Date Expiration Date V isits Requested Visits Authorized [id number] Closed Consult, Test & Treat 05/11/2023 06/11/2023 4 4 Encounter Details Date Type Department Care Team (Latest Contact Info) Description 05/11/2023 8:00 AM EST Ancillary Appointment [place] [address] Carlos Marie MD [facility] [place] [address] Secondary malignant neoplasm of brain Social History Tobacco Use Types Packs/Day Years Used Date Smoking Tobacco: Former Smokeless Tobacco: Current Chew Comments:1 can per day. Plan s to quit today 12/1/21 Alcohol Use Standard Drinks/Week Comments Yes 0 (1 standard drink = 0.6 oz pur e alcohol) on occassion only [facility] Utilities Answer Date Recorded In [...] or concerns. We can be reached at [phone] Tuesday through Tuesday 8 am to 5 pm or via [employer] for email. For emergent situations please call [phone] and ask for the Radiation Oncologist supervisor fabrication and assembly. Dr Marie documented in this encounter Plan of Treatment Upcoming Encounters Date Type Department Care Team (Late st Contact Info) Description 11/10/2023 8:30 AM EDT Infusion Hematology Oncology at [address] [phone] 11/30/2023 8:30 AM EDT Office Visit Hematology/Oncology at [address] [phone] [address] HEMATOLOGY AND ONCOLOGY [place], [place] [address] 11/30/2023 9:00 AM EDT Infusion Hematology Oncology at [address] [phone] 12/07/2023 11:15 AM EDT Office Visit [place] [address] Daisy Lloyd V., [facility] DR HEMATOLOGY [place] [address] documented as of this encounter Visit Diagnoses Diagnosis 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 of brain and spinal cord documented in this encounter Care Teams Pattern Setter Relationship Specialty Start Date End Date Nick Martinez MD [address] [place] [address] PCP - General Internal Medicine 07/01/18 documented as of this encounter
--- OUTSIDE RECORDS SUMMARY | 2023-10-27 15:21 | XMS_ITS | Encounter Summary ---
Author Organization [facility] [place] [address] Care Team Providers Care Grinder Hardboard Name Role Phone Nick Martinez MD Primary Care Provider [phone] Encounter Details Date Type Department Care Team (Late st Contact Info) Description 05/11/2023 8:00 AM EST Ancillary Procedure [place] [address] Carlos Marie MD [facility] [place] [address] Social History Tobacco Use Types Packs/Day Years Used Date Smoking Tobacco: Former Smokeless Tobacco: Current Chew Comments:1 can per day. Plan s to quit today 02/04/21 Alcohol Use Standard Drinks/Week Comments Yes 0 (1 standard drink = 0.6 oz pur e alcohol) on occassion only [facility] Utilities Answer Date Recorded In the past 12 months has [employer], gas, oil, or water company threatened [...] AM EDT Infusion Hematology Oncology at [address] [phone] 11/30/2023 8:30 AM EDT Office Visit Hematology/Oncology at [address] [phone] Bisi Hollis APRN [address] [place] [address] DR HEMATOLOGY AND ONCOLOGY [place], [place] [address] 11/30/2023 9:00 AM EDT Infusion Hematology Oncology at [address] [phone] 12/07/2023 11:15 AM EDT Office Visit [place] [address] Daisy Lloyd PA [facility] DR [place] [address] Pending Results Name Type Priority Associated Diagnoses Date /Time Film Library Radiation Oncology Studies Imaging Storage Only Routine 05/11/2023 8:40 AM EST documented as of this encounter Visit Diagnoses Not on filedocumented in this encounter Care Teams Grinder Hardboard Relationship Specialty Start Date End Date Nick Martinez MD [address] [place] [address] PCP - General Internal Medicine 07/01/18 documented as of this encounter
--- OUTSIDE RECORDS SUMMARY | 2023-10-27 15:21 | XMS_ITS | Encounter Summary ---
Author Organization [facility] [place] [address] Care Team Providers Care Search Marketing Specialist Name Role Phone Nick Martinez MD Primary Care Provider Reason for Referral * Diagnostic Test (Routine) - Closed Specialty Diagnoses / Procedures Referred By Contac t Referred To Contact Radiology Diagnoses Primary malignant neoplasm of right upper lobe of lung Procedures CT Chest w Contrast Ella Diego APRN [facility] [place] [address] [facility] [place] [address] Referral ID Status Reason Start Date Expiration Date V isits Requested Visits Authorized [id number] Closed Specialty Service Requested 11/04/2022 05/04/2024 1 1 Reason for Visit * Diagnostic Test (Routine) - Closed Specialty Diagnoses / Procedures Referred By Contac t Referred To Contact Radiology Diagnoses Primary malignant neoplasm of right upper lobe of lung Procedures CT Chest w Contrast Ella Diego APRN [facility] [place] [address] [facility] [place] [address] Referral ID Status Reason Start Date Expiration Date V isits Requested Visits Authorized [id number] Closed Specialty Service Requested 11/04/2022 05/04/2024 1 1 Encounter Details Date Type Department Care Team (Late st Contact Info) Description 02/04/2023 7:22 AM EST - 02/04/2023 11:59 PM EST Hospital Encounter CT Scan at [facility] [place] [address] Ella Diego APRN [facility] [place] [address] Primary malignant neoplasm of right upper lobe [...] 8:30 AM EDT Infusion Hematology Oncology at [address] [phone] 11/30/2023 8:30 AM EDT Office Visit Hematology/Oncology at [address] [phone] Bisi Hollis APRN [address] [place] [address] DR HEMATOLOGY [place] [address] 11/30/2023 9:00 AM EDT Infusion Hematology Oncology at [address] [phone] 12/07/2023 11:15 AM EDT Office Visit [place] [address] Daisy Lloyd PA [facility] [place] [address] documented as of this encounter Procedures Procedure [...] living that requested your imaging first. ? Narrative [...] assisted living that requested your imaging first. Ella Diego APRN IMG CT ORDERABLES documented [...] mLs documented in this encounter Care Teams Search Marketing Specialist Relationship Specialty Start Date End Date Nick Martinez MD [address] [place] [address] PCP - General Internal Medicine 07/01/18 documented as of this encounter
--- OUTSIDE RECORDS SUMMARY | 2023-10-27 15:21 | XMS_ITS | Encounter Summary ---
Author Organization [facility] [place] [address] Care Team Providers Care Driver Helper Name Role Phone Nick Martinez MD Primary Care Provider [phone] Encounter Details Date Type Department Care Team (Latest Contact Info) Description 05/11/2023 Travel Social History Tobacco Use Types Packs/Day Years Used Date Smoking Tobacco: Former Smokeless Tobacco: Current Chew Comments:1 can per day. Plan s to quit today 02/04/21 Alcohol Use Standard Drinks/Week Comments Yes 0 (1 standard drink = 0.6 oz pur e alcohol) on occassion only [facility] Utilities Answer Date Recorded In [...] AM EDT Infusion Hematology Oncology at [address] [phone] 11/30/2023 8:30 AM EDT Office Visit Hematology/Oncology at [address] [phone] Bisi Hollis FLASH WELDING MACHINE OPERATOR [address] [place] [address] DR [place] [address] 11/30/2023 9:00 AM EDT Infusion Hematology Oncology at [address] [phone] 12/07/2023 11:15 AM EDT Office Visit [place] [address] Daisy Lloyd PA [facility] [place] [address] documented as of this encounter Visit Diagnoses Not on filedocumented in this encounter Care Teams Driver Helper Relationship Specialty Start Date End Date Nick Martinez MD [address] [place] [address] PCP - General Internal Medicine 07/01/18 documented as of this encounter
--- OUTSIDE RECORDS SUMMARY | 2023-10-27 15:21 | XMS_ITS | Encounter Summary ---
Author Organization [facility] [place] [address] Care Team Providers Care County Ordinary Name Role Phone Nick Martinez MD Primary Care Provider [phone] Encounter Details Date Type Department Care Team (Latest Contact Info) Description 05/11/2023 12:22 PM EST - 05/11/2023 11:59 PM [facility] Hospital Encounter Hematology [place] [phone] Primary malignant neoplasm of right upper lobe of lung; Brain metastasis Discharge Disposition: Home Social History Tobacco Use Types Packs/Day Years Used Date Smoking Tobacco: Former Smokeless Tobacco: Current Chew Comments:1 can per day. Plan s to quit today 02/04/21 Alcohol Use Standard Drinks/Week Comments Yes 0 (1 standard drink = 0.6 oz pur e alcohol) on occassion only [employer] Utilities Answer Date Recorded In the past 12 months has [employer], gas, oil, or water [employer] threatened to shut off services in your [...] 8:30 AM EDT Infusion Hematology Oncology at [address] [phone] 11/30/2023 8:30 AM EDT Office Visit Hematology/Oncology at [address] [phone] Bisi Hollis APRN [address] [place] [address] DR HEMATOLOGY [place] [address] 11/30/2023 9:00 AM EDT Infusion Hematology Oncology at [address] [phone] 12/07/2023 11:15 AM EDT Office [place] [phone] Daisy Lloyd PA [facility] DR [place] [address] documented as of this encounter Procedures Procedure Name Priority Date/Time Associated Diagnosis Comments RESEARCH VENIPUNCTURE Routine 05/11/2023 12:39 PM EST 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 documented in this encounter Results * Research Venipuncture (05/11/2023 12:39 PM EST) Research Venipuncture Drawn [facility] Blood 05/11/2023 12:3 9 PM EST 05/11/2023 1:05 PM EST Narrative Resulting Agency Comment Spec In Lab Boy Tovar MD CHEMISTRY ORDERABLES [facility] [place] [address] documented in this encounter Visit Diagnoses Diagnosis Primary malignant neoplasm of right upper lobe of lung Malignant neoplasm of upper lobe, bronchus or lung Brain metastasis Secondary malignant neoplasm of brain and spinal cord documented in this encounter Care Teams County Ordinary Relationship Specialty Start Date End Date Nick Martinez MD [address] [place] [address] PCP - General Internal Medicine 07/01/18 documented as of this encounter
--- OUTSIDE RECORDS SUMMARY | 2023-10-27 15:21 | XMS_ITS | Encounter Summary ---
[place] [address] Care Team Providers Care Supervisor Volunteer Services Name Role Phone Nick Martinez MD Primary Care Provider [phone] Encounter Details Date Type Department Care Team (Late st Contact Info) Description 05/04/2023 Telephone [place] [address] Neha Servin RN Social History Tobacco Use Types Packs/Day Years Used Date Smoking Tobacco: Former Smokeless Tobacco: Current Chew Comments:1 can per day. Plan s to quit today 02/04/21 Alcohol Use Standard Drinks/Week Comments Yes 0 (1 standard drink = 0.6 oz pur e alcohol) on occassion only [facility] Utilities Answer Date Recorded In the past 12 months has [employer], gas, oil, or water [employer] threatened to shut off services in your [...] a call to discuss when time allows [phone]. T/C to patient's sister as requested per [...] 8:30 AM EDT Infusion Hematology Oncology at [address] [phone] 11/30/2023 8:30 AM EDT Office Visit Hematology/Oncology at [address] [phone] Bisi Hollis APRN [address] [place] [address] DR HEMATOLOGY [place] [address] 11/30/2023 9:00 AM EDT Infusion Hematology Oncology at [address] [phone] 12/07/2023 11:15 AM EDT Office [place] [address] Daisy Lloyd PA [facility] DR [place] [address] documented as of this encounter Visit Diagnoses Not on filedocumented in this encounter Care Teams Supervisor Volunteer Services Relationship Specialty Start Date End Date Nick Martinez MD [address] [place] [address] PCP - General Internal Medicine 07/01/18 documented as of this encounter
--- OUTSIDE RECORDS SUMMARY | 2023-10-27 15:21 | XMS_ITS | Encounter Summary ---
[place] [address] Care Team Providers Care Lime Slaker Name Role Phone Nick Martinez MD Primary Care Provider Reason for Visit * Reason Comments Mass Of brain Encounter Details Date Type Department Care Team (Late st Contact Info) Description 04/28/2023 1:04 PM EST - 04/28/2023 4:14 PM EST [place] [address] Bradford Carrion [facility] [place] [address] Lilli Franz MD [facility] [place] [address] Mass of brain Discharge Disposition: Home Social [...] Recorded In the past 12 months has [employer] electric, gas, oil, or water company threatened [...] home. Lilli Franz MD 04/28/23 1553 * Yanyc Freeman RN - 04/28/2023 3:15 PM EST [...] Floyd MD - 04/28/2023 2:35 PM EST [facility] NEUROSURGERY Consult Date: 04/28/2023 ID: Raffy Latif, 62 y.o. male : 1960 Admission Date: 04/28/2023 PCP: Nick Martinez MD Consult information: Date & time consult called: 04/28/2023 3:20 PM Date & time consult seen: 04/28/2023 3:20 PM Referring Service: ED Consulting Attending: Lilli Frnaz MD Neurosurgery Attending: Dimitry Floyd MD Place of Consult: [facility] CC/Reason for consult: L frontal tumor [...] for restaging and a consult with Dr. Marie of [facility] tomorrow. He alsois scheduled to see his Oncologist for further restaging in the near future. 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 The patient has an appointment w [facility] Dr. Marie tomorrow and is agreeable to [...] day -Continue Keppra 500mg BID -Proceed with [facility] visit with Dr. Marie, as well as restaging with Dr. Tovar -Ok for discharge home Today's plan of care was discussed with attending neurosurgeon, Dimitry Floyd MD. Sharmin Nice MD 04/28/2023 3:20 PM [facility] Neurosurgery Inpatient Pager: #[phone] Personal Pager: [phone] There are no hospital problems to display for this patient. Active Non-Hospital Problems Diagnosis Primary malignant neoplasm of right upper lobe of lung Reviewed case. Solitary met however appears in/adjacent to notoro cortex which will limit completeness of surgical resection. [facility]. We will discuss with radonc needs/risks of surgery. documented in this encounter Plan of Treatment Upcoming Encounters Date Type Department Care Team (Late st Contact Info) Description 11/10/2023 8:30 AM EDT Infusion Hematology Oncology at [address] [phone] 11/30/2023 8:30 AM EDT Office Visit Hematology/Oncology at [address] [phone] Bisi Hollis APRN [address] [place] [address] DR HEMATOLOGY [place] [address] 11/30/2023 9:00 AM EDT Infusion Hematology Oncology at [address] [phone] 12/07/2023 11:15 AM EDT Office [place] [address] Daisy Lloyd PA [facility] DR [place] [address] documented as of this encounter Procedures Procedure Name Priority Date/Time Associated Diagnosis Comments HEMOGRAM STAT 04/28/2023 2:55 PM EST DIFFERENTIAL, AUTOMATED STAT 04/28/2023 2:55 PM EST CBC (WITH DIFF) STAT 04/28/2023 2:55 PM EST COMPREHENSIVE METABOLIC PANEL STAT 04/28/2023 2:55 PM EST documented in this encounter Results * (ABNORMAL) Differential, Automated (04/28/2023 2:55 PM EST) Neutrophil % 86.9 % [facility] Neutrophil Absolute 10.06(H) 1.70 - 6.10 x10(3)/mc L [facility] Lymph % 6.1 % [facility] Lymphocytes Abs 0.7(L) 0.9 - 3.2 x10(3)/mc L [facility] Monocyte % 5.4 % [facility] Monocyte Abs 0.6 0.3 - 0.9 x10(3)/mc L [facility] Eos % 0.0 % [facility] Eosinophils Abs 0.0 0.0 - 0.4 x10(3)/ L [facility] Basophil % 0.2 % [facility] Baso Absolute 0.0 0.0 - 0.1 x10(3)/ L [facility] Immature Gran % 1.40 % [facility] Comment: Immature granulocytes(IG's)percentage and absolute count will include metamyelocytes, myelocytes, and promyelocytes. Blood smears from CBCs yielding IG's will be scanned manually for concordance. If this scan disagrees with the automated IG or if promyelocytes are noted, a manual differential will be performed. Immature Gran Absolute 0.16(H) 0.00 - 0.04 x10(3)/ L [facility] Blood 04/28/2023 2:55 PM EST 04/28/2023 3:07 PM EST Narrative Resulting Agency Comment Spec In Lab Bradford Carrion DO HEMATOLOGY ORDERABLE S [facility] [place] [address] * (ABNORMAL) Hemogram (04/28/2023 2:55 PM EST) White Blood Cell 11.6(H) 4.0 - 9.5 x10(3)/mc L [facility] Red Blood Cell 4.92 4.58 - 5.54 x10(6)/ L [facility] Hemoglobin 15.3 13.7 - 16.5 g/dL [facility] Hematocrit 42.9 40.5 - 48.5 % [facility] Mean Cell Volume 87.2 82.9 - 93.1 fL [facility] Mean Cell Hemoglobin 31.1 27.5 - 32.1 pg [facility] Mean Cell Hemoglobin Concentration 35.7 32.0 - 35.7 g/dL [facility] Platelet 248 145 - 357 x10(3)/mc L [facility] RDW Standard Deviation 39.8 36.0 - 45.0 fL [facility] RDW coefficient of variation 12.6 11.4 - 13.8 % [facility] Mean Platelet Volume 9.3 7.6 - 12.9 fL [facility] NRBC% auto 0.0 % [facility] NRBC Absolute 0.000 0.000 - 0.000 x10(3)/mc L [facility] Blood 04/28/2023 2:55 PM EST 04/28/2023 3:07 PM EST Narrative Resulting Agency Comment Spec In Lab Bradford Carrion DO HEMATOLOGY ORDERABLE S [facility] [place] [address] * (ABNORMAL) Comprehensive metabolic panel (non-fasting) (04/28/2023 2:55 PM EST) Glucose 109 65 - 199 mg/dL [facility] Comment:Diabetes: >=200 mg/d L plus symptoms Blood Urea Nitrogen 22(H) 10 - 20 mg/dL [facility] Creatinine 1.07 0.80 - 1.50 mg/dL [facility] Sodium 136 135 - 145 mmol/L [facility] Potassium 4.0 3.5 - 5.0 mmol/L [facility] Comment: Please note: ??Patients with WBC >100,000 may have falsely elevated Potassium levels. ??For accurate Potassium quantification in these patients send serum separator tube (gold top) for subsequent determinations. ??Contact the Clinical Chemistry Laboratory if there are any questions. Chloride 97(L) 98 - 107 mmol/L [facility] Carbon Dioxide 27 22 - 31 mmol/L [facility] Anion Gap 12 5 - 15 mmol/L [facility] Calcium 10.3 8.5 - 10.5 mg/dL [facility] Protein, Total 8.0 6.1 - 8.0 g/dL [facility] Albumin 5.0 3.2 - 5.2 g/dL [facility] Aspartate Aminotransferase 24 0 - 39 unit/L [facility] Alanine Aminotransferase 32 0 - 55 unit/L [facility] Alkaline Phosphatase 77 40 - 130 unit/L [facility] Bilirubin, Total 0.5 0.2 - 1.3 mg/dL [facility] Est Glomerular Filtration Rate 77 >=60 mL/min/1. 73 m?? [facility] Comment: This patient's estimated GFR was [...] In Lab Bradford Carrion DO CHEMISTRY ORDERABLES [facility] [place] [address] documented in this encounter Visit Diagnoses Diagnosis Mass of brain Unspecified condition of brain documented in this encounter Administered Medications Inactive [...] RN) documented in this encounter Care Teams Lime Slaker Relationship Specialty Start Date End Date Nick Martinez MD [address] [place] [address] PCP - General Internal Medicine 07/01/18 documented as of this encounter
--- OUTSIDE RECORDS SUMMARY | 2023-10-27 15:21 | XMS_ITS | Encounter Summary ---
Author Organization [facility] [place] [address] Care Team Providers Care Entry Level Programmer Name Role Phone Nick Martinez MD Primary Care Provider [phone] Encounter Details Date Type Department Care Team [...] 8:30 AM EDT Infusion Hematology Oncology at [address] [phone] 11/30/2023 8:30 AM EDT Office Visit Hematology/Oncology at [address] [phone] Bisi Hollis APRN [address] [place] [address] DR HEMATOLOGY [place] [address] 11/30/2023 9:00 AM EDT Infusion Hematology Oncology at [address] [phone] 12/07/2023 11:15 AM EDT Office Visit [place] [address] Daisy Lloyd PA [facility] DR [place] [address] documented as of this encounter Visit Diagnoses Not on filedocumented in this encounter Care Teams Entry Level Programmer Relationship Specialty Start Date End Date Nick Martinez MD [address] [place] [address] PCP - General Internal Medicine 07/01/18 documented as of this encounter
--- OUTSIDE RECORDS SUMMARY | 2023-10-27 15:21 | XMS_ITS | Encounter Summary ---
[place] [address] Care Team Providers Care Brand Director Name Role Phone Nick Martinez MD Primary Care Provider [phone] Encounter Details Date Type Department Care Team (Latest Contact Info) Description 11/04/2022 8:15 AM EDT Laboratory Appointment Lab [address] [place] [phone] Primary malignant neoplasm of right upper lobe [...] AM EDT Infusion Hematology Oncology at [address] [phone] 11/30/2023 8:30 AM EDT Office Visit Hematology/Oncology at [address] [phone] Bisi Hollis [address] [place] [address] 11/30/2023 9:00 AM EDT Infusion Hematology Oncology at [address] [phone] 12/07/2023 11:15 AM EDT Office Visit [place] [address] Daisy Lloyd PA [facility] DR [place] [address] documented as of this encounter Procedures Procedure [...] 7:56 AM EDT) Neutrophil % 67.3 % [facility] Neutrophil Absolute 3.68 1.70 - 6.10 x10(3)/mc L [facility] Lymph % 17.6 % [facility] Lymphocytes Abs 1.0 0.9 - 3.2 x10(3)/mc L [facility] Monocyte % 11.2 % [facility] Monocyte Abs 0.6 0.3 - 0.9 x10(3)/mc L [facility] Eos % 1.8 % [facility] Eosinophils Abs 0.1 0.0 - 0.4 x10(3)/mc L [facility] Basophil % 0.5 % [facility] Baso Absolute 0.0 0.0 - 0.1 x10(3)/mc L [facility] Immature Gran % 1.60 % [facility] Comment: Immature granulocytes(IG's)percentage and absolute count will include metamyelocytes, myelocytes, and promyelocytes. Blood smears from CBCs yielding IG's will be scanned manually for concordance. If this scan disagrees with the automated IG or if promyelocytes are noted, a manual differential will be performed. Immature Gran Absolute 0.09(H) 0.00 - 0.04 x10(3)/mc L [facility] Blood 11/04/2022 7:56 AM EDT 11/04/2022 8:00 AM EDT Narrative Resulting Agency Comment Spec In Lab Bisi A LaRoza INFORMATION TECHNOLOGY INTERN HEMATOLOGY ORDER CRISSY Performing Organization Address City/[facility]/ZIP Co de Phone Number [facility] [place] [address] * Hemogram (11/04/2022 7:56 AM EDT) White Blood Cell 5.5 4.0 - 9.5 x10(3)/[facility] Red Blood Cell 4.62 4.58 - 5.54 x10(6)/[facility] Hemoglobin 14.4 13.7 - 16.5 g/dL [facility] Hematocrit 40.7 40.5 - 48.5 % [facility] Mean Cell Volume 88.1 82.9 - 93.1 fL [facility] Mean Cell Hemoglobin 31.2 27.5 - 32.1 pg [facility] Mean Cell Hemoglobin Concentration 35.4 32.0 - 35.7 g/dL [facility] Platelet 217 145 - 357 x10(3)/[facility] RDW Standard Deviation 39.4 36.0 - 45.0 fL [facility] RDW coefficient of variation 12.4 11.4 - 13.8 % [facility] Mean Platelet Volume 8.7 7.6 - 12.9 fL [facility] NRBC% auto 0.0 % [facility] NRBC Absolute 0.000 0.000 - 0.000 x10(3)/[facility] Blood 11/04/2022 7:56 AM EDT 11/04/2022 8:00 AM EDT Narrative Resulting Agency Comment Spec In Lab Bisi A Marleya INFORMATION TECHNOLOGY INTERN HEMATOLOGY ORDER CRISSY Performing Organization Address City/[facility]/ZIP Co de Phone Number [facility] [place] [address] * TSH (11/04/2022 7:56 AM EDT) Thyroid Stimulating Hormone 3.26 0.27 - 4.20 mcIU/mL [facility] Comment: Reference Interval (mcIU/mL): Females: ??First Trimester: 0.23-3.88 ??Second Trimester: 0.22-3.90 ??Third Trimester: 0.44-4.66 Blood 11/04/2022 7:56 AM EDT 11/04/2022 8:00 AM EDT Narrative Resulting Agency Comment Spec In Lab Bisi Roacha INFORMATION TECHNOLOGY INTERN CHEMISTRY ORDERA BLES Performing Organization Address [facility] Co de Phone Number [facility] [place] [address] * T4, free (11/04/2022 7:56 AM EDT) Free T4 1.16 0.93 - 1.70 ng/dL [facility] Comment: Reference Interval (ng/dL): Females: ??First Trimester: 0.97-1.68 ??Second Trimester: 0.77-1.51 ??Third Trimester: 0.77-1.49 Blood 11/04/2022 7:56 AM EDT 11/04/2022 8:00 AM EDT Narrative Resulting Agency Comment Spec In Lab Bisi Roacha INFORMATION TECHNOLOGY INTERN CHEMISTRY ORDERA BLES Performing Organization Address [facility] Co de Phone Number [facility] [place] [address] * Magnesium (11/04/2022 7:56 AM EDT) Magnesium 0.89 0.69 - 1.07 mmol/L [facility] Blood 11/04/2022 7:56 AM EDT 11/04/2022 8:00 AM EDT Narrative Resulting Agency Comment Spec In Lab Bisi Keithoza INFORMATION TECHNOLOGY INTERN CHEMISTRY ORDERA BLES [facility] [place] [address] * Comprehensive metabolic panel (non-fasting) (11/04/2022 7:56 AM EDT) Glucose 105 65 - 199 mg/dL [facility] Comment:Diabetes: >=200 mg/d L plus symptoms Blood Urea Nitrogen 16 10 - 20 mg/dL [facility] Creatinine 1.19 0.80 - 1.50 mg/dL [facility] Sodium 139 135 - 145 mmol/L [facility] Potassium 4.4 3.5 - 5.0 mmol/L [facility] Comment: Please note: ??Patients with WBC >100,000 may have falsely elevated Potassium levels. ??For accurate Potassium quantification in these patients send serum separator tube (gold top) for subsequent determinations. ??Contact the Clinical Chemistry Laboratory if there are any questions. Chloride 101 98 - 107 mmol/L [facility] Carbon Dioxide 28 22 - 31 mmol/L [facility] Anion Gap 10 5 - 15 mmol/L [facility] Calcium 9.5 8.5 - 10.5 mg/dL [facility] Protein, Total 7.7 6.1 - 8.0 g/dL [facility] Albumin 4.5 3.2 - 5.2 g/dL [facility] Aspartate Aminotransferase 21 0 - 39 unit/L [facility] Alanine Aminotransferase 19 0 - 55 unit/L [facility] Alkaline Phosphatase 63 40 - 130 unit/L [facility] Bilirubin, Total 0.6 0.2 - 1.3 mg/dL [facility] Est Glomerular Filtration Rate 68 >=60 mL/min/1. 73 m?? [facility] Comment: This patient's estimated [...] Agency Comment Spec In Lab Bisi Hollis INFORMATION TECHNOLOGY INTERN CHEMISTRY ORDERA BLES [facility] [place] [address] documented in this encounter Visit Diagnoses Diagnosis Primary malignant neoplasm of right upper lobe of lung Malignant neoplasm of upper lobe, bronchus or lung documented in this encounter Care Teams Brand Director Relationship Specialty Start Date End Date Nick Martinez MD [address] [place] [id number] PCP - General Internal Medicine 07/01/18 documented as of this encounter
--- OUTSIDE RECORDS SUMMARY | 2023-10-27 15:21 | XMS_ITS | Encounter Summary ---
Author Organization [facility] [place] [address] Care Team Providers Care Wheel Truer Name Role Phone Nick Martinez MD Primary Care Provider [phone] Encounter Details Date Type Department Care Team (Late st Contact Info) Description 04/26/2023 3:55 PM EST Ancillary Procedure [place] [address] Ella Diego APRN [facility] DR HEMATOLOGY [place] [address] Social History Tobacco Use Types Packs/Day Years [...] AM EDT Infusion Hematology Oncology at [address] [phone] 11/30/2023 8:30 AM EDT Office Visit Hematology/Oncology at [address] [phone] Bisi Hollis APRN [address] [place] [address] DR [place] [address] 11/30/2023 9:00 AM EDT Infusion Hematology Oncology at [address] [phone] 12/07/2023 11:15 AM EDT Office [place] [address] Daisy Lloyd PA [facility] DR HEMATOLOGY [place] [address] documented as of this encounter Procedures Procedure Name Priority Date/Time Associated Diagnosis Comments FILM LIBRARY STORAGE ONLY MR HEAD Routine 04/26/2023 3:52 PM EST documented in this encounter Results * Film Library- Storage Only MR Head (04/26/2023 3:52 PM EST) Narrative RAD - 04/26/2023 3:52 PM EST This exam is auto-finalizing. It's purpose is for storage only. Ella Diego APRN IMG FILM LIBRARY O RDERABLES [place], [place] documented in this encounter Visit Diagnoses Not on filedocumented in this encounter Care Teams Wheel Truer Relationship Specialty Start Date End Date Nick Martinez MD [address] [place] [address] PCP - General Internal Medicine 07/01/18 documented as of this encounter
--- OUTSIDE RECORDS SUMMARY | 2023-10-27 15:22 | XMS_ITS | Encounter Summary ---
Author Organization [facility] Address [facility] [place] [address] Care Team Providers Care Foreign Language Professor Name Role Phone Nick Martinez MD Primary Care Provider [phone] Encounter Details Date Type Department Care Team (Latest Contact Info) Description 11/04/2022 7:50 AM EDT - 11/04/2022 8:10 AM EDT Hospital Encounter [place] [phone] Discharge Disposition: Home Social History Tobacco Use [...] AM EDT Infusion Hematology Oncology at [address] [phone] 11/30/2023 8:30 AM EDT Office Visit Hematology/Oncology at [address] [phone] Bisi Hollis APRN [address] [place] [address] DR HEMATOLOGY AND ONCOLOGY [place], [place] [address] 11/30/2023 9:00 AM EDT Infusion Hematology Oncology at [address] [phone] 12/07/2023 11:15 AM EDT Office Visit [place] [address] Daisy Lloyd PA [facility] DR [place] [address] documented as of this encounter Visit Diagnoses Not on filedocumented in this encounter Care Teams Foreign Language Professor Relationship Specialty Start Date End Date Nick Martinez MD [address] [place] [address] PCP - General Internal Medicine 07/01/18 documented as of this encounter
--- OUTSIDE RECORDS SUMMARY | 2023-10-27 15:22 | XMS_ITS | Encounter Summary ---
[place] [address] Care Team Providers Care Sawdust Drier Name Role Phone Nick Martinez MD Primary Care Provider Reason for Referral * Diagnostic Test (Routine) - Closed Specialty Diagnoses / Procedures Referred By Mariana workman Referred To Contact Radiology Diagnoses Primary malignant neoplasm of right upper lobe of lung Procedures CT Chest w Contrast Bisi Hollis APRN [address] [place] [address] [place] [address] [facility] [address] [facility] [place] [address] Referral ID Status Reason Start Date Expiration Date V isits Requested Visits Authorized [id number] Closed Specialty Service Requested 03/18/2022 09/16/2023 1 1 Reason for Visit * Diagnostic Test (Routine) - Closed Specialty Diagnoses / Procedures Referred By Mariana workman Referred To Contact Radiology Diagnoses Primary malignant 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 Procedures CT Chest w Contrast Bisi Hollis APRN [address] [place] [address] [place] [address] [facility] [address] [facility] [place] [address] Referral ID Status Reason Start Date Expiration Date V isits Requested Visits Authorized [id number] Closed Specialty Service Requested 03/18/2022 09/16/2023 1 1 Encounter Details Date Type Department Care Team (Late st Contact Info) Description 04/15/2022 9:23 AM EST - 04/15/2022 11:59 PM EST Hospital [place] [address] Bisi Hollis APRN [address] [place] [address] [place] [address] Primary malignant neoplasm of right upper lobe [...] AM EDT Infusion Hematology Oncology at [address] [phone] 11/30/2023 8:30 AM EDT Office Visit Hematology/Oncology at [address] [phone] Bisi Hollis APRN [address] [place] [address] [place] [address] 11/30/2023 9:00 AM EDT Infusion Hematology Oncology at [address] [phone] 12/07/2023 11:15 AM EDT Office Visit [place] [phone] Daisy Lloyd PA [facility] DR [place] [address] documented as of this encounter Procedures Procedure [...] who have questions please contact the health companion caregiver that requested your imaging first. ? Electronically signed by: Rashaun Lewis MD, [facility] ([phone]), at 04/15/2022 1:36 PM Narrative 04/15/2022 1:36 [...] patients who have questions please contactthe health companion caregiver that requested your imaging first. Electronically signed by: Rashaun Lewis MD, [facility]([phone]), at 04/15/2022 1:36 PM Bisi Hollis [facility] ORDERABLE S documented in this [...] mLs documented in this encounter Care Teams Sawdust Drier Relationship Specialty Start Date End Date Nick Martinez MD [address] [place] [address] PCP - General Internal Medicine 07/01/18 documented as of this encounter
--- OUTSIDE RECORDS SUMMARY | 2023-10-27 15:22 | XMS_ITS | Encounter Summary ---
[place] [address] Care Team Providers Care Calibrator Barometers Name Role Phone Nick Martinez MD Primary Care Provider Reason for Referral * Diagnostic Test (Routine) - Closed Specialty Diagnoses / Procedures Referred By Mariana workman Referred To Contact Radiology Diagnoses Primary malignant neoplasm of right upper lobe of lung Procedures CT Chest w Contrast Bisi Hollis APRN [address] [place] [address] [place] [address] [facility] [place] [address] Referral ID Status Reason Start Date Expiration Date V isits Requested Visits Authorized [id number] Closed Specialty Service Requested 03/18/2022 09/16/2023 1 1 Encounter Details Date Type Department Care Team (Late st Contact Info) Description 03/18/2022 Orders Only Hematology/Oncology at [address] [phone] Bisi Hollis APRN [address] [place] [address] [place] [address] Primary malignant neoplasm of right [...] 8:30 AM EDT Infusion Hematology Oncology at [address] [phone] 11/30/2023 8:30 AM EDT Office Visit Hematology/Oncology at [address] [phone] LaRozBisi avery APRN [address] [place] [address] [place] [address] 11/30/2023 9:00 AM EDT Infusion Hematology Oncology at [address] [phone] 12/07/2023 11:15 AM EDT Office Visit [place] [address] Daisy Lloyd PA [facility] DR [place] [address] documented as of this encounter Results * [...] who have questions please contact the health zoo caretaker that requested your imaging first. ? [...] patients who have questions please contactthe health zoo caretaker that requested your imaging first. Bisi A Telma [facility] IM[facility] CT ORDERABLE S documented in this encounter Visit Diagnoses Diagnosis Primary malignant neoplasm of right upper lobe of lung Malignant neoplasm of upper lobe, bronchus or lung Primary malignant neoplasm of right upper lobe of lung Malignant neoplasm of upper lobe, bronchus or lung documented in this encounter Care Teams Calibrator Barometers Relationship Specialty Start Date End Date Nick Martinez MD [address] [place] [address] PCP - General Internal Medicine 07/01/18 documented as of this encounter
--- OUTSIDE RECORDS SUMMARY | 2023-10-27 15:22 | XMS_ITS | Encounter Summary ---
Author Organization [facility] [place] [address] Care Team Providers Care Insurance Appraiser Name Role Phone Nick Mratinez MD Primary Care Provider Encounter Details Date Type Department Care Team (Late st Contact Info) Description 10/18/2022 Orders Only Hematology/Oncology at [address] [phone] Bisi Hollis APRN [address] [place] [address] DR HEMATOLOGY [place] [address] Primary malignant neoplasm of right [...] 8:30 AM EDT Infusion Hematology Oncology at [address] [phone] 11/30/2023 8:30 AM EDT Office Visit Hematology/Oncology at [address] [phone] Bisi Hollis APRN [address] [place] [address] DR HEMATOLOGY [place] [address] 11/30/2023 9:00 AM EDT Infusion Hematology Oncology at [address] [phone] 12/07/2023 11:15 AM EDT Office Visit [place] [address] Daisy Lloyd PA [facility] DR [place] [address] documented as of this encounter Visit Diagnoses Diagnosis Primary malignant neoplasm of right upper lobe of lung Malignant neoplasm of upper lobe, bronchus or lung documented in this encounter Care Teams Insurance Appraiser Relationship Specialty Start Date End Date Nick Martinez MD [address] [place] [address] PCP - General Internal Medicine 07/01/18 documented as of this encounter
--- OUTSIDE RECORDS SUMMARY | 2023-10-27 15:22 | XMS_ITS | Encounter Summary ---
Author Organization [facility] [place] [address] Care Team Providers Care Office Services Specialist Name Role Phone Nick Martinez MD Primary Care Provider Reason for Referral * Diagnostic Test (Routine) - Closed Specialty Diagnoses / Procedures Referred By Mariana workman Referred To Contact Radiology Diagnoses Primary malignant neoplasm of right upper lobe of lung Procedures CT Chest w Contrast Ella Diego APRN [facility] [place] [address] [facility] [place] [address] Referral ID Status Reason Start Date Expiration Date V isits Requested Visits Authorized [id number] Closed Specialty Service Requested 11/04/2022 05/04/2024 1 1 Reason for Visit * Reason Comments Follow-up Encounter Details Date Type Department Care Team (Late st Contact Info) Description 11/04/2022 10:30 AM EDT Office Visit Hematology [place] [address] Boy Tovar MD [facility] [place] [address] Ella Diego APRN [facility] DR HEMATOLOGY [place] [address] Primary malignant neoplasm of right upper lobe [...] this encounter Progress Notes * Ella Diego, PLASTICS ENGINEER - 11/04/2022 10:30 AM EDT Images from the original note were not included. Hematology & Medical Oncology [address] [address] Raffy Latif is being seen for cT1cN3 [...] steroids. Side effects from immunotherapy can be oil heaterman or chronic, meaning they last for more than 3 months after stopping immunotherapy. - Discussed tobacco cessation and offered a referral to our tobacco cessation here at the cancer center. - Discussed need to see PCP to began regular health maintenance and screenings, overdue to colo. Ptis reluctant to do this, but said he would think about it. Ella Diego, DNP, PLASTICS ENGINEER 11/04/2022 Medical Oncology & Hematology [facility] HPI/Interval History/Subjective: Last seen 07.16.2022 Overall feeling well. Does have occasional cough, but otherwise no new/worsening respiratory symptoms. LANDEROS remains stable. No CP, SOB, worsening LANDEROS, hemoptysis. No new symptoms since completing durvalumab. Denies any fevers, chills, rashes, arthralgias, headaches, dizziness, abd pain, nausea/vomiting, diarrhea, acute SOB, CP. Continues to have a busy family life his 4 children and grandchildren. 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 Does note he is more tired than he used to be, but is still able to put in 12hour days. Does not have a PCP at this time. Reports he has never had cholesterol, PSA, colonoscopy etc. Encouraged pt setting this up. No specific symptoms or concerns to discuss today. Social History/Support Network: Home situation: Lives with in [facility] with Velvet. 35 years. 3 children and plan to adopt another one through foster care. 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 38 [...] 8:30 AM EDT Infusion Hematology Oncology at [address] [phone] 11/30/2023 8:30 AM EDT Office Visit Hematology/Oncology at [address] [phone] Bisi Hollis APRN [address] [place] [address] DR HEMATOLOGY AND ONCOLOGY [place], [place] [phone] 11/30/2023 9:00 AM EDT Infusion Hematology Oncology at [address] [phone] 12/07/2023 11:15 AM EDT Office Visit [place] [address] Daisy Lloyd PA [facility] [place] [address] documented as of this encounter Results * [...] have questions please contact the health career development manager that requested your imaging first. ? Electronically signed by: Jose Roberto Rogers MD, [facility] ??([phone]), at 02/04/2023 9:45 AM Narrative 02/04/2023 9:45 [...] who have questions please contactthe health career development manager that requested your imaging first. Electronically signed by: Jose Roberto Rogers MD, [facility]([phone]), at 02/04/2023 9:45 AM Ella Diego PLASTICS ENGINEER IMG CT ORDERABLES * Comprehensive metabolic panel (non-fasting) (02/04/2023 6:59 AM EST) Glucose 102 65 - 199 mg/dL [facility] Comment:Diabetes: >=200 mg/d L plus symptoms Blood Urea Nitrogen 15 10 - 20 mg/dL [facility] Creatinine 1.30 0.80 - 1.50 mg/dL [facility] Sodium 139 135 - 145 mmol/L [facility] Potassium 4.2 3.5 - 5.0 mmol/L [facility] Comment: Please note: ??Patients with WBC >100,000 may have falsely elevated Potassium levels. ??For accurate Potassium quantification in these patients send serum separator tube (gold top) for subsequent determinations. ??Contact the Clinical Chemistry Laboratory if there are any questions. Chloride 102 98 - 107 mmol/L [facility] Carbon Dioxide 31 22 - 31 mmol/L [facility] Anion Gap 6 5 - 15 mmol/L [facility] Calcium 9.1 8.5 - 10.5 mg/dL [facility] Protein, Total 7.1 6.1 - 8.0 g/dL [facility] Albumin 4.5 3.2 - 5.2 g/dL [facility] Aspartate Aminotransferase 25 0 - 39 unit/L [facility] Alanine Aminotransferase 25 0 - 55 unit/L [facility] Alkaline Phosphatase 71 40 - 130 unit/L [facility] Bilirubin, Total 0.3 0.2 - 1.3 mg/dL [facility] Est Glomerular Filtration Rate 61 >=60 mL/min/1. 73 m?? [facility] Comment: This patient's estimated GFR was [...] Agency Comment Spec In Lab Ella Diego PLASTICS ENGINEER CHEMISTRY ORDERABL ES Performing Organization Address City/State/[facility] Co de Phone Number [facility] [place] [address] documented in this encounter Visit Diagnoses Diagnosis Primary malignant neoplasm of right upper lobe of lung Malignant neoplasm of upper lobe, bronchus or lung Primary malignant neoplasm of right upper lobe of lung Malignant neoplasm of upper lobe, bronchus or lung documented in this encounter Care Teams Office Services Specialist Relationship Specialty Start Date End Date Nick Martinez MD [address] [place] [address] PCP - General Internal Medicine 07/01/18 documented as of this encounter
--- OUTSIDE RECORDS SUMMARY | 2023-10-27 15:22 | XMS_ITS | Encounter Summary ---
Author Organization [facility] [place] [address] Care Team Providers Care Work Order Clerk Name Role Phone Nick Martinez MD Primary Care Provider Encounter Details Date Type Department Care Team (Late st Contact Info) Description 12/14/2021 1:00 PM EDT Office Visit Hematology/Oncology at [address] [phone] Boy Tovar MD [facility] [place] [address] Aliyah Thakur APRN [facility] [place] [address] Primary malignant neoplasm of right upper lobe [...] not included. Hematology & Medical Oncology [place] [address] [address] Raffy Latif is being seen for cT1cN3 [...] Next scan is scheduled for 12/28 at [facility]. - continue consolidative immunotherapy with durvalumab. 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 Uses inhaler when he [...] in trying to quit. 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 Busy lifestyle with kids at [...] History/Support Network: Home situation: Lives with in [facility] with Velvet. 35 years. 3 children and plan to adopt another one through foster care. 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 38 [...] 8:30 AM EDT Infusion Hematology Oncology at [address] [phone] 11/30/2023 8:30 AM EDT Office Visit Hematology/Oncology at [address] [phone] Bisi Hollis APRN [address] [place] [address] DR HEMATOLOGY AND ONCOLOGY [place] [id number] 11/30/2023 9:00 AM EDT Infusion Hematology Oncology at [address] [phone] 12/07/2023 11:15 AM EDT Office Visit [place] [address] Daisy Lloyd PA [facility] [place] [address] documented as of this encounter Visit Diagnoses Diagnosis Primary malignant neoplasm of right upper lobe of lung Malignant neoplasm of upper lobe, bronchus or lung documented in this encounter Care Teams Work Order Clerk Relationship Specialty Start Date End Date Nick Martinez MD [address] [place] [address] PCP - General Internal Medicine 07/01/18 documented as of this encounter
--- OUTSIDE RECORDS SUMMARY | 2023-10-27 15:22 | XMS_ITS | Encounter Summary ---
[place] [address] Care Team Providers Care Fourth Mate Name Role Phone Nick Martinez MD Primary Care Provider [phone] Encounter Details Date Type Department Care Team (Late st Contact Info) Description 08/17/2022 Orders Only [place]ematology [place] [address] Gladis Quiñonez Social History Tobacco Use Types [...] 8:30 AM EDT Infusion Hematology Oncology at [address] [phone] 11/30/2023 8:30 AM EDT Office Visit Hematology/Oncology at [address] [phone] Bisi Hollis [address] HEMATOLOGY [place] ONCOLOGY [place], [place] [address] 11/30/2023 9:00 AM EDT Infusion Hematology Oncology at [address] [phone] 12/07/2023 11:15 AM EDT Office Visit [place] [address] Daisy Lloyd PA [facility] DR HEMATOLOGY [place] [address] documented as of this encounter Visit Diagnoses Not on filedocumented in this encounter Care Teams Fourth Mate Relationship Specialty Start Date End Date Nick Martinez MD [address] [place] [address] PCP - General Internal Medicine 07/01/18 documented as of this encounter
--- OUTSIDE RECORDS SUMMARY | 2023-10-27 15:22 | XMS_ITS | Encounter Summary ---
Author Organization [facility] Address [facility] [place] [address] Care Team Providers Care C Programmer Name Role Phone Nick Martinez MD Primary Care Provider Encounter Details Date Type Department Care Team (Late st Contact Info) Description 02/08/2022 1:00 PM EST Office Visit Hematology/Oncology at [address] [phone] Boy Tovar MD [facility] DR HEMATOLOGY [place] [address] Bisi Hollis APRN [address] [place] [address] DR HEMATOLOGY AND ONCOLOGY [place], [place] [id number] Primary malignant neoplasm of right upper lobe [...] in this encounter Progress Notes * Bisi oHllis APRN - 02/08/2022 1:00 PM EST Images from the original note were not included. Hematology & Medical Oncology [address] [phone] Raffy Latif is being seen for cT1cN3 [...] KrystalJf Hollis 02/08/2022 Medical Oncology & Hematology [facility] HPI/Interval History/Subjective: Last seen 01/11/2022 Breathing is good. Uses inhaler when he needs it- Most often at home. Coughing has improved. No diarrhea. Occasionally constipated. Still chewing tobacco about the same amount - has tried patches without success. Considering gum orlozenges. 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 Busy lifestyle with kids at [...] History/Support Network: Home situation: Lives with in [facility] with Velvet. 35 years. 3 children and plan to adopt another one through foster care. 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 38 [...] AM EDT Infusion Hematology Oncology at [address] [phone] 11/30/2023 8:30 AM EDT Office Visit Hematology/Oncology at [address] [phone] Bisi Hollis APRN [address] [place] [address] DR HEMATOLOGY AND ONCOLOGY [place], [place] [address] 11/30/2023 9:00 AM EDT Infusion Hematology Oncology at [address] [phone] 12/07/2023 11:15 AM EDT Office Visit [place] [address] Daisy Lloyd PA [facility] DR [place]EMATOLOGY [place] [address] documented as of this encounter Visit Diagnoses Diagnosis Primary malignant neoplasm of right upper lobe of lung Malignant neoplasm of upper lobe, bronchus or lung documented in this encounter Care Teams C Programmer Relationship Specialty Start Date End Date Nick Martinez MD [address] [place] [address] PCP - General Internal Medicine 07/01/18 documented as of this encounter
--- OUTSIDE RECORDS SUMMARY | 2023-10-27 15:22 | XMS_ITS | Encounter Summary ---
[place] [address] Care Team Providers Care Cleaner Industrial Name Role Phone Nick Martinez MD Primary Care Provider Reason for Referral * Diagnostic Test (Routine) - Closed Specialty Diagnoses / Procedures Referred By Mariana workman Referred To Contact Radiology Diagnoses Primary malignant neoplasm of right upper lobe of lung Procedures CT Chest w Contrast Ella Diego APRN [facility] DR [place] [address] [facility] [place] [address] Referral ID Status Reason Start Date Expiration Date V isits Requested Visits Authorized [id number] Closed Specialty Service Requested 04/15/2022 10/14/2023 1 1 Reason for Visit * Reason Comments Follow-up Encounter Details Date Type Department Care Team (Late st Contact Info) Description 04/15/2022 1:00 PM EST Office Visit [place]ology [place] [address] Ella Diego APRN [facility] [place] [address] Primary malignant neoplasm of right [...] this encounter Progress Notes * Ella Diego, PROCUREMENT DIRECTOR - 04/15/2022 1:00 PM EST Images from the original note were not included. Hematology & Medical Oncology [address] [phone] Raffy Latif is being seen for cT1cN3 [...] ? Side effects from immunotherapy can be usp or chronic, meaning they last for more than 3 months after stopping immunotherapy. - Discussed tobacco cessation and offered a referral to our tobacco cessation here at the cancer center. - Discussed referral to PCP to began regular health maintenance and screenings. Ella Diego, DNP, PROCUREMENT DIRECTOR 04/14/2022 Medical Oncology & Hematology [facility] Cancer [facility] RTC in [address], [...] life his 4 children and grandchildren. 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 Does not have a PCP at this time. Reports he has never had cholesterol, PSA, colonoscopy etc. No specific symptoms or concerns to discuss today. Social History/Support Network: Home situation: Lives with in [facility] with Velvet. 35 years. 3 children and plan to adopt another one through foster care. 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 38 Pk [...] AM EDT Infusion Hematology Oncology at [address] [phone] 11/30/2023 8:30 AM EDT Office Visit Hematology/Oncology at [address] [phone] Bisi Hollis APRN [address] [place] [address] DR HEMATOLOGY [place] [address] 11/30/2023 9:00 AM EDT Infusion Hematology Oncology at [address] [phone] 12/07/2023 11:15 AM EDT Office [place] [address] Daisy Lloyd PA [facility] DR [place] [address] documented as of this encounter Results * [...] who have questions please contact the health lawn care technician that requested your imaging first. ? Electronically signed by: Jarad Parada DO, [facility] ([phone]), at 07/16/2022 9:23 AM Narrative 07/16/2022 9:23 [...] which is dated April 15, 2022. FINDINGS: Recovery Advocate Images: Noncontributory. Pulmonary parenchyma: There is a [...] which is dated April 15, 2022. FINDINGS: Recovery Advocate Images: Noncontributory. Pulmonary parenchyma: There is a [...] patients who have questions please contactthe health lawn care technician that requested your imaging first. Ella Diego APRN IMG CT ORDERABLES * Comprehensive metabolic panel (non-fasting) (07/16/2022 7:50 AM EDT) Glucose 102 65 - 199 mg/dL [facility] Comment:Diabetes: >=200 mg/d L plus symptoms Blood Urea Nitrogen 17 10 - 20 mg/dL [facility] Creatinine 1.20 0.80 - 1.50 mg/dL [facility] Sodium 139 135 - 145 mmol/L [facility] Potassium 4.6 3.5 - 5.0 mmol/L [facility] Comment: Please note: ??Patients with WBC >100,000 may have falsely elevated Potassium levels. ??For accurate Potassium quantification in these patients send serum separator tube (gold top) for subsequent determinations. ??Contact the Clinical Chemistry Laboratory if there are any questions. Chloride 103 98 - 107 mmol/L [facility] Carbon Dioxide 28 22 - 31 mmol/L [facility] Anion Gap 8 5 - 15 mmol/L [facility] Calcium 9.6 8.5 - 10.5 mg/dL [facility] Protein, Total 7.8 6.1 - 8.0 g/dL [facility] Albumin 4.5 3.2 - 5.2 g/dL [facility] Aspartate Aminotransferase 22 0 - 39 unit/L [facility] Alanine Aminotransferase 16 0 - 55 unit/L [facility] Alkaline Phosphatase 68 40 - 130 unit/L [facility] Bilirubin, Total 0.5 0.2 - 1.3 mg/dL [facility] Est Glomerular Filtration Rate 68 >=60 mL/min/1. 73 m?? [facility] Comment: This patient's estimated GFR [...] Lab Ella Diego APRN CHEMISTRY ORDERABL ES [facility] [place] [address] documented in this encounter Visit Diagnoses Diagnosis Primary malignant neoplasm of right upper lobe of lung Malignant neoplasm of upper lobe, bronchus or lung Nicotine dependence with other nicotine-induced disorder, unspecified nicotine product type Primary malignant neoplasm of right upper lobe of lung Malignant neoplasm of upper lobe, bronchus or lung documented in this encounter Care Teams Cleaner Industrial Relationship Specialty Start Date End Date Nick Martinez MD [address] [place] [address] PCP - General Internal Medicine 07/01/18 documented as of this encounter
--- OUTSIDE RECORDS SUMMARY | 2023-10-27 15:22 | XMS_ITS | Encounter Summary ---
Author Organization [facility] [place] [address] Care Team Providers Care Automotive Hardware Engineer Name Role Phone Nick Martinez MD Primary Care Provider [phone] Encounter Details Date Type Department Care Team (Latest Contact Info) Description 07/16/2022 7:42 AM EDT - 07/16/2022 7:56 AM EDT Hospital Encounter Hematology [place] [phone] Primary malignant neoplasm of right upper lobe [...] AM EDT Infusion Hematology Oncology at [address] [phone] 11/30/2023 8:30 AM EDT Office Visit Hematology/Oncology at [address] [phone] Bisi Hollis APRN [address] [place] [address] DR HEMATOLOGY AND ONCOLOGY [place], [place] [phone] 11/30/2023 9:00 AM EDT Infusion Hematology Oncology at [address] [phone] 12/07/2023 11:15 AM EDT Office Visit Radiation Oncology at [facility] [place] [address] Daisy Lloyd PA [facility] DR [place] [address] documented as of this encounter Procedures Procedure [...] 7:50 AM EDT) Neutrophil % 75.7 % [facility] Neutrophil Absolute 5.46 1.70 - 6.10 x10(3)/mc L [facility] Lymph % 11.2 % [facility] Lymphocytes Abs 0.8(L) 0.9 - 3.2 x10(3)/mc L [facility] Monocyte % 9.0 % [facility] Monocyte Abs 0.6 0.3 - 0.9 x10(3)/mc L [facility] Eos % 1.8 % [facility] Eosinophils Abs 0.1 0.0 - 0.4 x10(3)/mc L [facility] Basophil % 0.4 % [facility] Baso Absolute 0.0 0.0 - 0.1 x10(3)/mc L [facility] Immature Gran % 1.90 % [facility] Comment: Immature granulocytes(IG's)percentage and absolute count will include metamyelocytes, myelocytes, and promyelocytes. Blood smears from CBCs yielding IG's will be scanned manually for concordance. If this scan disagrees with the automated IG or if promyelocytes are noted, a manual differential will be performed. Immature Gran Absolute 0.14(H) 0.00 - 0.04 x10(3)/mc L [facility] Blood 07/16/2022 7:50 AM EDT 07/16/2022 7:53 AM EDT Narrative Resulting Agency Comment Spec In Lab Ella Diego CP BLEACHER OPERATOR HEMATOLOGY ORDERAB LES [facility] [place] [address] * Hemogram (07/16/2022 7:50 AM EDT) White Blood Cell 7.2 4.0 - 9.5 x10(3)/[facility] Red Blood Cell 4.78 4.58 - 5.54 x10(6)/[facility] Hemoglobin 14.7 13.7 - 16.5 g/dL [facility] Hematocrit 41.7 40.5 - 48.5 % [facility] Mean Cell Volume 87.2 82.9 - 93.1 fL [facility] Mean Cell Hemoglobin 30.8 27.5 - 32.1 pg [facility] Mean Cell Hemoglobin Concentration 35.3 32.0 - 35.7 g/dL [facility] Platelet 202 145 - 357 x10(3)/[facility] RDW Standard Deviation 40.0 36.0 - 45.0 fL [facility] RDW coefficient of variation 12.8 11.4 - 13.8 % [facility] Mean Platelet Volume 8.6 7.6 - 12.9 fL [facility] NRBC% auto 0.0 % [facility] NRBC Absolute 0.000 0.000 - 0.000 x10(3)/[facility] Blood 07/16/2022 7:50 AM EDT 07/16/2022 7:53 AM EDT Narrative Resulting Agency Comment Spec In Lab Ella Diego CP BLEACHER OPERATOR HEMATOLOGY ORDERAB LES [facility] [place] [address] * Comprehensive metabolic panel (non-fasting) (07/16/2022 7:50 AM EDT) Glucose 102 65 - 199 mg/dL [facility] Comment:Diabetes: >=200 mg/d L plus symptoms Blood Urea Nitrogen 17 10 - 20 mg/dL [facility] Creatinine 1.20 0.80 - 1.50 mg/dL [facility] Sodium 139 135 - 145 mmol/L [facility] Potassium 4.6 3.5 - 5.0 mmol/L [facility] Comment: Please note: ??Patients with WBC >100,000 may have falsely elevated Potassium levels. ??For accurate Potassium quantification in these patients send serum separator tube (gold top) for subsequent determinations. ??Contact the Clinical Chemistry Laboratory if there are any questions. Chloride 103 98 - 107 mmol/L [facility] Carbon Dioxide 28 22 - 31 mmol/L [facility] Anion Gap 8 5 - 15 mmol/L [facility] Calcium 9.6 8.5 - 10.5 mg/dL [facility] Protein, Total 7.8 6.1 - 8.0 g/dL [facility] Albumin 4.5 3.2 - 5.2 g/dL [facility] Aspartate Aminotransferase 22 0 - 39 unit/L [facility] Alanine Aminotransferase 16 0 - 55 unit/L [facility] Alkaline Phosphatase 68 40 - 130 unit/L [facility] Bilirubin, Total 0.5 0.2 - 1.3 mg/dL [facility] Est Glomerular Filtration Rate 68 >=60 mL/min/1. 73 m?? [facility] Comment: This patient's estimated GFR [...] Agency Comment Spec In Lab Ella Diego CP BLEACHER OPERATOR CHEMISTRY ORDERABL ES Performing Organization Address City/State/RUST Co de Phone Number [facility] [place] [address] documented in this encounter Visit Diagnoses Diagnosis Primary malignant neoplasm of right upper lobe of lung Malignant neoplasm of upper lobe, bronchus or lung documented in this encounter Care Teams Automotive Hardware Engineer Relationship Specialty Start Date End Date Nick Martinez MD [address] [place] [address] PCP - General Internal Medicine 07/01/18 documented as of this encounter
--- OUTSIDE RECORDS SUMMARY | 2023-10-27 15:22 | XMS_ITS | Encounter Summary ---
Author Organization Formerly [facility] [place] [address] Care Team Providers Care Customs Entry Clerk Name Role Phone Nick Martinez MD Primary Care Provider [phone] Encounter Details Date Type Department Care Team (Late st Contact Info) Description 11/16/2021 2:00 PM EDT Office Visit Hematology/Oncology at [address] [phone] Boy Tovar MD [facility] DR [place] [address] Aliyah Thakur APRN [facility] [address] [place] [address] Primary malignant neoplasm of right upper lobe [...] Progress Notes * Bisi Hollis APRN - 11/16/2021 2:00 PM EDT Images from the original note were not included. Hematology & Medical Oncology [address] [address] Raffy Latif is being seen for cT1cN3 [...] Next scan is scheduled for 12/28 at [facility]. - continue consolidative immunotherapy with durvalumab Bisi Hollis, APPOINTMENT CLERK 11/16/2021 Medical Oncology & Hematology [facility] HPI/Interval History/Subjective: Last seen 10/12/21 He [...] in trying to quit. 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 Busy lifestyle with kids at [...] History/Support Network: Home situation: Lives with in [facility] with Velvet. 35 years. 3 children and plan to adopt another one through foster care. 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 38 Pk [...] AM EDT Infusion Hematology Oncology at [address] [phone] 11/30/2023 8:30 AM EDT Office Visit Hematology/Oncology at [address] [phone] Bisi Hollis APRN [address] [place] [address] DR HEMATOLOGY [place] [address] 11/30/2023 9:00 AM EDT Infusion Hematology Oncology at [address] [phone] 12/07/2023 11:15 AM EDT Office Visit [place] [address] Daisy Lloyd PA [facility] [address] [place] [address] documented as of this encounter Visit Diagnoses Diagnosis Primary malignant neoplasm of right upper lobe of lung Malignant neoplasm of upper lobe, bronchus or lung documented in this encounter Care Teams Customs Entry Clerk Relationship Specialty Start Date End Date Nick Martinez MD [address] [place] [address] PCP - General Internal Medicine 07/01/18 documented as of this encounter
--- OUTSIDE RECORDS SUMMARY | 2023-10-27 15:22 | XMS_ITS | Encounter Summary ---
Author Organization Former[facility] [place] [address] Care Team Providers Care Cut Off Sawyer Log Name Role Phone Nick Martinez MD Primary Care Provider [phone] Reason for Visit * Reason Comments Chemotherapy Cycle 12, Day 1 - Du rvalumab * Treatment/Therapy Plan Authorization (Routine) - Closed Specialty Diagnoses / Procedures Referred By Contac t Referred To Contact Hematology and Oncology Diagnoses Primary malignant neoplasm of right upper lobe of lung Procedures [id number] Boy Jackson MD [facility] DR [place] [address] Boy Tovar MD [address] [place] [address] DR [place]EMATOLOGY [place] [address] Referral ID Status Reason Start Date Expiration Date Visits Re quested Visits Authorized [id number] Closed 11/05/2021 11/05/2022 99 99 Encounter Details Date Type Department Care Team (Late st Contact Info) Description 02/08/2022 1:30 PM EST Infusion Hematology Oncology at [address] [phone] Primary malignant neoplasm of right upper lobe [...] AM EDT Infusion Hematology Oncology at [address] [phone] 11/30/2023 8:30 AM EDT Office Visit Hematology/Oncology at [address] [phone] Bisi Hollis [address] HEMATOLOGY AND ONCOLOGY [place], [place] [phone] 11/30/2023 9:00 AM EDT Infusion Hematology Oncology at [address] [phone] 12/07/2023 11:15 AM EDT Office Visit [place] [address] Daisy Lloyd PA [facility] DR [place] [address] documented as of this encounter Visit Diagnoses [...] mL/hr documented in this encounter Care Teams Cut Off Sawyer Log Relationship Specialty Start Date End Date Nick Martinez MD [address] [place] [address] PCP - General Internal Medicine 07/01/18 documented as of this encounter
--- OUTSIDE RECORDS SUMMARY | 2023-10-27 15:22 | XMS_ITS | Encounter Summary ---
Author Organization [facility] [place] [address] Care Team Providers Care Customer Account Administrator Name Role Phone Nick Martinez MD Primary Care Provider [phone] Reason for Referral * Diagnostic Test (Routine) - Closed Specialty Diagnoses / Procedures Referred By Mariana workman Referred To Contact Radiology Diagnoses Primary malignant neoplasm of right upper lobe of lung Procedures CT Chest w Contrast Ella Diego APRN [facility] DR [place] [address] [facility] [place] [address] Referral ID Status Reason Start Date Expiration Date V isits Requested Visits Authorized [id number] Closed Specialty Service Requested 10/12/2022 12/10/2022 1 1 Reason for Visit * Reason Comments Follow-up Encounter Details Date Type Department Care Team (Late st Contact Info) Description 07/16/2022 10:30 AM EDT Office Visit Hematology [place] [address] Boy Tovar MD [facility] DR [place] [address] Ella Diego APRN [facility] DR HEMATOLOGY [place] [address] Primary malignant neoplasm of right upper lobe [...] this encounter Progress Notes * Ella Diego, RESEARCH & INSIGHTS EXECUTIVE - 07/16/2022 10:30 AM EDT Images from the original note were not included. Hematology & Medical Oncology [address] [address] Raffy Latif is being seen for cT1cN3 [...] ? Side effects from immunotherapy can be terminal gauger supervisor or chronic, meaning they last for more than 3 months after stopping immunotherapy. - Discussed tobacco cessation and offered a referral to our tobacco cessation here at the cancer center. - Discussed need to see PCP to began regular health maintenance and screenings, overdue to colo. Ella Diego, DNP, RESEARCH & INSIGHTS EXECUTIVE 07/16/2022 Medical Oncology & Hematology [facility] Cancer [facility] RTC in [address], [...] his 4 children and grandchildren. 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 Does not have a PCP at this time. Reports he has never had cholesterol, PSA, colonoscopy etc. Encouraged pt setting this up, discussed that I could put in the order for the colo. Pt refused at this time. No specific symptoms or concerns to discuss today. Social History/Support Network: Home situation: Lives with in [facility] with Velvet. 35 years. 3 children and plan to adopt another one through foster care. 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 38 [...] 8:30 AM EDT Infusion Hematology Oncology at [address] [phone] 11/30/2023 8:30 AM EDT Office Visit Hematology/Oncology at [address] [phone] Bisi Hollis APRN [address] [place] [address] DR HEMATOLOGY AND ONCOLOGY [place], [place] [phone] 11/30/2023 9:00 AM EDT Infusion Hematology Oncology at [address] [phone] 12/07/2023 11:15 AM EDT Office Visit [place] [address] Daisy Lloyd PA [facility] DR [place] [address] Scheduled Orders Name Type Priority Associated Diagnoses [...] rn that requested your imaging first. ? Electronically signed by: Jose Roberto Rogers MD, [facility] ??([phone]), at 11/04/2022 11:08 AM Narrative 11/04/2022 11:08 [...] Electronically signed by: Jose Roberto Rogers MD, [facility]([phone]), at 11/04/2022 11:08 AM Ella Diego APRN IMG CT ORDERABLES documented in this encounter Visit Diagnoses Diagnosis Primary malignant neoplasm of right upper lobe of lung Malignant neoplasm of upper lobe, bronchus or lung Primary malignant neoplasm of right upper lobe of lung Malignant neoplasm of upper lobe, bronchus or lung documented in this encounter Care Teams Customer Account Administrator Relationship Specialty Start Date End Date Nick Martinez MD [address] [place] [address] PCP - General Internal Medicine 07/01/18 documented as of this encounter
--- OUTSIDE RECORDS SUMMARY | 2023-10-27 15:22 | XMS_ITS | Encounter Summary ---
Author Organization [facility] [place] [address] Care Team Providers Care Head Track Coach Name Role Phone Nick Martinez MD Primary Care Provider [phone] Encounter Details Date Type Department Care Team (Late st Contact Info) Description 10/15/2021 Telephone Hematology/Oncology at [address] [phone] Laly Larose, RN Social History [...] included. Saad Saleem Alexander D, MD; P [facility] Hem Onc Nurse Good Afternoon. I [...] AM EDT Infusion Hematology Oncology at [address] [phone] 11/30/2023 8:30 AM EDT Office Visit Hematology/Oncology at [address] [phone] Bisi Hollis APRN [address] [place] [address] DR H[place]AT[place]Y [place] [address] 11/30/2023 9:00 AM EDT Infusion Hematology Oncology at [address] [phone] 12/07/2023 11:15 AM EDT Office Visit [place] [address] Daisy Lloyd PA [facility] DR [place] [address] documented as of this encounter Visit Diagnoses Not on filedocumented in this encounter Care Teams Head Track Coach Relationship Specialty Start Date End Date Nick Martinez MD [address] [place] [address] PCP - General Internal Medicine 07/01/18 documented as of this encounter
--- OUTSIDE RECORDS SUMMARY | 2023-10-27 15:22 | XMS_ITS | Encounter Summary ---
Author Organization [facility] [place] [address] Care Team Providers Care House Painting Instructor Name Role Phone Nick Martinez MD Primary Care Provider [phone] Encounter Details Date Type Department Care Team (Late st Contact Info) Description 12/14/2021 Notes Only Hematology/Oncology at [address] [phone] Azalea Watkins, UNDERWRITER OFFICE OF CARE MANAGEMENT Social History Tobacco [...] needs today. Offered support. Reminded Raffy of UNDERWRITER availability and contact information. Will continue to follow for support and resources. Brief assessment Supportive Counseling documented in this encounter Plan of Treatment Upcoming Encounters Date Type Department Care Team (Late st Contact Info) Description 11/10/2023 8:30 AM EDT Infusion Hematology Oncology at [address] [phone] 11/30/2023 8:30 AM EDT Office Visit Hematology/Oncology at [address] [phone] Bisi Hollis APRN [address] [place] [address] DR HEMATOLOGY [place] [address] 11/30/2023 9:00 AM EDT Infusion Hematology Oncology at [address] [phone] 12/07/2023 11:15 AM EDT Office Visit [place] [address] Daisy Lloyd PA [facility] DR HEMATOLOGY [place] [address] documented as of this encounter Visit Diagnoses Not on filedocumented in this encounter Care Teams House Painting Instructor Relationship Specialty Start Date End Date Nick Martinez MD [address] [place] [address] PCP - General Internal Medicine 07/01/18 documented as of this encounter
--- OUTSIDE RECORDS SUMMARY | 2023-10-27 15:22 | XMS_ITS | Encounter Summary ---
Author Organization [facility] [place] [address] Care Team Providers Care Ultrasound Applications Specialist Name Role Phone Nick Martinez MD Primary Care Provider Reason for Visit * Reason Comments Chemotherapy [id number] * Treatment/Therapy Plan Authorization (Routine) - Closed Specialty Diagnoses / Procedures Referred By Contac t Referred To Contact Hematology and Oncology Diagnoses Primary malignant neoplasm of right upper lobe of lung Procedures [id number] Boy Jackson MD [facility] [place] [address] Boy Tovar MD [address] [place] [address] DR HEMATOLOGY [place] [address] Referral ID Status Reason Start Date Expiration Date Visits Re quested Visits Authorized [id number] Closed 11/05/2021 11/05/2022 99 99 Encounter Details Date Type Department Care Team (Late st Contact Info) Description 12/14/2021 1:30 PM EDT Infusion Hematology Oncology at [address] [phone] Primary malignant neoplasm of right [...] to treat. LAB DATA: Done today at [facility] and no holds per [place] orders. IV ACCESS: PIV right hand Pre [...] AM EDT Infusion Hematology Oncology at [address] [phone] 11/30/2023 8:30 AM EDT Office Visit Hematology/Oncology at [address] [phone] Bisi Hollis FROZEN PIE MAKER [address] [place] [address] DR HEMATOLOGY [place] [address] 11/30/2023 9:00 AM EDT Infusion Hematology Oncology at [address] [phone] 12/07/2023 11:15 AM EDT Office [place] [address] Daisy Lloyd PA [facility] [place] [address] documented as of this encounter Visit Diagnoses [...] 1,500 mg, Intravenous, ONCE, 1 dose, On 12/14/21 at 1445, Administer over 60 Minutes, This agent is restricted to outpatient use. Is this drug being given as an outpatient? Yes New Bag 12/14/2021 1:48 PM EDT 1,500 mg 280 mL/hr documented in this encounter Care Teams Ultrasound Applications Specialist Relationship Specialty Start Date End Date Nick Martinez MD [address] [place] [address] PCP - General Internal Medicine 07/01/18 documented as of this encounter
--- OUTSIDE RECORDS SUMMARY | 2023-10-27 15:22 | XMS_ITS | Encounter Summary ---
Author Organization [facility]ly [facility] [place] [address] Care Team Providers Care Battery Container Finishing Hand Name Role Phone Nick Martinez MD Primary Care Provider [phone] Encounter Details Date Type Department Care Team [...] AM EDT Infusion Hematology Oncology at [address] [phone] 11/30/2023 8:30 AM EDT Office Visit Hematology/Oncology at [address] [phone] Bisi Hollis APRN [address] [place] [address] DR HEMATOLOGY [place] [address] 11/30/2023 9:00 AM EDT Infusion Hematology Oncology at [address] [phone] 12/07/2023 11:15 AM EDT Office Visit [place] [address] Daisy Lloyd PA [facility] DR HEMATOLOGY [place] [address] documented as of this encounter Visit Diagnoses Not on filedocumented in this encounter Care Teams Battery Container Finishing Hand Relationship Specialty Start Date End Date Nick Martinez MD [address] [place] [address] PCP - General Internal Medicine 07/01/18 documented as of this encounter
--- OUTSIDE RECORDS SUMMARY | 2023-10-27 15:22 | XMS_ITS | Encounter Summary ---
Author Organization [facility] [place] [address] Care Team Providers Care Ship Painter Helper Name Role Phone Nick Martinez MD Primary Care Provider Reason for Visit * Reason Comments Chemotherapy Cycle 11, Day 1 - Du rvalumab * Treatment/Therapy Plan Authorization (Routine) - Closed Specialty Diagnoses / Procedures Referred By Contac t Referred To Contact Hematology and Oncology Diagnoses Primary malignant neoplasm of right upper lobe of lung Procedures [id number] Boy Jackson MD [facility] DR [place] [address] Boy Tovar MD [address] [place] [address] DR [place]EMAT[place]Y [place] [address] Referral ID Status Reason Start Date Expiration Date Visits Re quested Visits Authorized [id number] Closed 11/05/2021 11/05/2022 99 99 Encounter Details Date Type Department Care Team (Late st Contact Info) Description 01/11/2022 1:30 PM EST Infusion Hematology Oncology at [address] [phone] Primary malignant neoplasm of right upper lobe [...] AM EDT Infusion Hematology Oncology at [address] [phone] 11/30/2023 8:30 AM EDT Office Visit Hematology/Oncology at [address] [phone] Bisi Hollis APRN [address] [place] [address] DR HEMATOLOGY AND ONCOLOGY [place], [place] [id number] 11/30/2023 9:00 AM EDT Infusion Hematology Oncology at [address] [phone] 12/07/2023 11:15 AM EDT Office Visit Radiation [place] [address] Daisy Lloyd PA [facility] DR [place] [address] documented as of this encounter Visit Diagnoses [...] mL/hr documented in this encounter Care Teams Ship Painter Helper Relationship Specialty Start Date End Date Nick Martinez MD [address] [place] [address] PCP - General Internal Medicine 07/01/18 documented as of this encounter
--- OUTSIDE RECORDS SUMMARY | 2023-10-27 15:22 | XMS_ITS | Encounter Summary ---
Author Organization [facility] [place] [address] Care Team Providers Care Mushroom Spawn Maker Name Role Phone Nick Martinez MD [...] [facility] DR [place] [address] Boy Tovar MD [address] [place] [address] [place] [address] Referral ID Status Reason Start Date Expiration Date Visits Re quested Visits Authorized [id number] Closed 11/05/2021 11/05/2022 99 99 Encounter Details Date Type Department Care Team (Late st Contact Info) Description 11/16/2021 2:30 PM EDT Infusion Hematology Oncology at [address] [phone] Primary malignant neoplasm of right upper lobe [...] to treat. LAB DATA: Done today at [facility] and no holds per [place] orders. IV ACCESS: PIV right hand Pre [...] AM EDT Infusion Hematology Oncology at [address] [phone] 11/30/2023 8:30 AM EDT Office Visit Hematology/Oncology at [address] [phone] Bisi Hollis [address] [place] [address] 11/30/2023 9:00 AM EDT Infusion Hematology Oncology at [address] [phone] 12/07/2023 11:15 AM EDT Office Visit [place] [address] Daisy Lloyd PA [facility] DR [place] [address] documented as of this encounter Visit Diagnoses [...] mL/hr documented in this encounter Care Teams Mushroom Spawn Maker Relationship Specialty Start Date End Date Nick Martinez MD [address] [place] [address] PCP - General Internal Medicine 07/01/18 documented as of this encounter
--- OUTSIDE RECORDS SUMMARY | 2023-10-27 15:22 | XMS_ITS | Encounter Summary ---
Author Organization [facility]ly [facility] [place] [address] Care Team Providers Care List Of First Job Ideas Name Role Phone Nick Martinez MD Primary Care Provider [phone] Encounter Details Date Type Department Care Team (Late st Contact Info) Description 03/18/2022 Orders Only Hematology [place] [address] [facility] DR HEMATOLOGY [place] [address] Primary malignant neoplasm of right upper lobe [...] AM EDT Infusion Hematology Oncology at [address] [phone] 11/30/2023 8:30 AM EDT Office Visit Hematology/Oncology at [address] [phone] Bisi Hollis APRN [address] [place] [address] [place] [address] 11/30/2023 9:00 AM EDT Infusion Hematology Oncology at [address] [phone] 12/07/2023 11:15 AM EDT Office Visit [place] [address] [facility] DR HEMATOLOGY [place] [address] documented as of this encounter Results * Magnesium (04/15/2022 9:14 AM EST) Magnesium 0.87 0.69 - 1.07 mmol/L [facility] Blood 04/15/2022 9:14 AM EST 04/15/2022 9:21 AM EST Narrative Resulting Agency Comment Spec In Lab Boy Tovar MD CHEMISTRY ORDERABLES [facility] [place] [address] * Comprehensive metabolic panel (non-fasting) (04/15/2022 9:14 AM EST) Glucose 82 65 - 199 mg/dL [facility] Comment:Diabetes: >=200 mg/d L plus symptoms Blood Urea Nitrogen 19 10 - 20 mg/dL [facility] Creatinine 1.29 0.80 - 1.50 mg/dL [facility] Sodium 141 135 - 145 mmol/L [facility] Potassium 4.4 3.5 - 5.0 mmol/L [facility] Comment: Please note: ??Patients with WBC >100,000 may have falsely elevated Potassium levels. ??For accurate Potassium quantification in these patients send serum separator tube (gold top) for subsequent determinations. ??Contact the Clinical Chemistry Laboratory if there are any questions. Chloride 101 98 - 107 mmol/L [facility] Carbon Dioxide 29 22 - 31 mmol/L [facility] Anion Gap 11 5 - 15 mmol/L [facility] Calcium 9.9 8.5 - 10.5 mg/dL [facility] Protein, Total 7.4 6.1 - 8.0 g/dL [facility] Albumin 4.7 3.2 - 5.2 g/dL [facility] Aspartate Aminotransferase 19 0 - 39 unit/L [facility] Alanine Aminotransferase 22 0 - 55 unit/L [facility] Alkaline Phosphatase 70 40 - 130 unit/L [facility] Bilirubin, Total 0.4 0.2 - 1.3 mg/dL [facility] Est Glomerular Filtration Rate 62 >=60 mL/min/1. 73 m?? [facility] Comment: This patient's estimated GFR [...] Tovar MD CHEMISTRY ORDERABLES Performing Organization Address City/State/[facility] [place] [address] documented in this encounter Visit Diagnoses Diagnosis Primary malignant neoplasm of right upper lobe of lung Malignant neoplasm of upper lobe, bronchus or lung documented in this encounter Care Teams List Of First Job Ideas Relationship Specialty Start Date End Date Nick Martinez MD [address] [place] [address] PCP - General Internal Medicine 07/01/18 documented as of this encounter
--- OUTSIDE RECORDS SUMMARY | 2023-10-27 15:22 | XMS_ITS | Encounter Summary ---
Author Organization [facility] [place] [address] Care Team Providers Care Sole Trimmer Name Role Phone Nick Martinez MD Primary Care Provider [phone] Reason for Referral * Diagnostic Test (Routine) - Closed Specialty Diagnoses / Procedures Referred By Contmilagro t Referred To Contact Radiology Diagnoses Primary malignant neoplasm of right upper lobe of lung Procedures CT Chest w Contrast Ella Diego APRN [facility] DR HEMATOLOGY [place] [address] [facility] [place] [address] Referral ID Status Reason Start Date Expiration Date V isits Requested Visits Authorized [id number] Closed Specialty Service Requested 10/12/2022 12/10/2022 1 1 Reason for Visit * Diagnostic Test (Routine) - Closed Specialty Diagnoses / Procedures Referred By Contmliagro t Referred To Contact Radiology Diagnoses Primary malignant neoplasm of right upper lobe of lung Procedures CT Chest w Contrast Ella Diego APRN [facility] HEMATOLOGY [place] [address] [facility] [place] [address] Referral ID Status Reason Start Date Expiration Date V isits Requested Visits Authorized [id number] Closed Specialty Service Requested 10/12/2022 12/10/2022 1 1 Encounter Details Date Type Department Care Team (Late st Contact Info) Description 11/04/2022 8:11 AM EDT - 11/04/2022 11:59 PM EDT Hospital [place] [phone] Ella Diego APRN [facility] DR HEMATOLOGY [place] [address] Primary malignant neoplasm of right upper lobe [...] AM EDT Infusion Hematology Oncology at [address] [phone] 11/30/2023 8:30 AM EDT Office Visit Hematology/Oncology at [address] [phone] Bisi Hollis APRN [address] [place] [address] DR HEMATOLOGY [place] [address] 11/30/2023 9:00 AM EDT Infusion Hematology Oncology at [address] [phone] 12/07/2023 11:15 AM EDT Office Visit [place] [address] Daisy Lloyd PA [facility] DR HEMATOLOGY [place] [address] documented as of this encounter Procedures Procedure [...] who have questions please contact the health resident care supervisor that requested your imaging first. ? Electronically signed by: Jose Roberto Rogers MD, [facility] ??([phone]), at 11/04/2022 11:08 AM Narrative 11/04/2022 11:08 [...] patients who have questions please contactthe health resident care supervisor that requested your imaging first. Electronically signed by: Jose Roberto Rogers MD, [facility]([phone]), at 11/04/2022 11:08 AM Ella Diego APRN [...] mLs documented in this encounter Care Teams Sole Trimmer Relationship Specialty Start Date End Date Nick Martinez MD [address] [place] [address] PCP - General Internal Medicine 07/01/18 documented as of this encounter
--- OUTSIDE RECORDS SUMMARY | 2023-10-27 15:22 | XMS_ITS | Encounter Summary ---
Author Organization [facility] [place] [address] Care Team Providers Care V/Stol Landing Signal Officer Name Role Phone Nick Martinez MD Primary Care Provider [phone] Encounter Details Date Type Department Care Team [...] AM EDT Infusion Hematology Oncology at [address] [phone] 11/30/2023 8:30 AM EDT Office Visit Hematology/Oncology at [address] [phone] Bisi Hollis APRN [address] [place] [address] DR HEMATOLOGY [place] [address] 11/30/2023 9:00 AM EDT Infusion Hematology Oncology at [address] [phone] 12/07/2023 11:15 AM EDT Office Visit [place] [address] [facility] DR HEMATOLOGY [place] [address] documented as of this encounter Visit Diagnoses Not on filedocumented in this encounter Care Teams V/Stol Landing Signal Officer Relationship Specialty Start Date End Date Nick Martinez MD [address] [place] [address] PCP - General Internal Medicine 07/01/18 documented as of this encounter
--- OUTSIDE RECORDS SUMMARY | 2023-10-27 15:22 | XMS_ITS | Encounter Summary ---
Author Organization [facility] [place] [address] Care Team Providers Care Liability Claims Manager Name Role Phone Nick Martinez MD Primary Care Provider [phone] Encounter Details Date Type Department Care Team [...] AM EDT Infusion Hematology Oncology at [address] [phone] 11/30/2023 8:30 AM EDT Office Visit Hematology/Oncology at [address] [phone] Bisi Hollis APRN [address] [place] [address] DR HEMATOLOGY [place] [address] 11/30/2023 9:00 AM EDT Infusion Hematology Oncology at [address] [phone] 12/07/2023 11:15 AM EDT Office Visit [place] [address] Daisy Lloyd PA [facility] DR HEMATOLOGY [place] [address] documented as of this encounter Visit Diagnoses Not on filedocumented in this encounter Care Teams Liability Claims Manager Relationship Specialty Start Date End Date Nick Martinez MD [address] [place] [address] PCP - General Internal Medicine 07/01/18 documented as of this encounter
--- OUTSIDE RECORDS SUMMARY | 2023-10-27 15:22 | XMS_ITS | Encounter Summary ---
Author Organization [facility] [place] [address] Care Team Providers Care Nurse Name Role Phone Nick Martinez MD Primary Care Provider [phone] Encounter Details Date Type Department Care Team (Late st Contact Info) Description 10/12/2021 2:00 PM EDT Office Visit Hematology/Oncology at [address] [phone] Aliyah Thakur APRN [facility] DR [place] [address] Primary malignant neoplasm of right upper lobe [...] not included. Hematology & Medical Oncology [address] [phone] Raffy Salomon is being seen for cT1cN3 Stage III-C [...] durvalumab - Restage in December Aliyah Thakur RECRUITER ACCOUNT MANAGER 10/12/2021 Medical Oncology & Hematology [facility] HPI/Interval History/Subjective: Last seen 09/14/21 Still has cough however much improved - No fevers, chills, recent infections. Uses albuterol inhaler occasionally - more with recent heat. Otherwise breathing pretty good. 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 Busy lifestyle with kids at home. No new rashes or diarrhea. Appetite good - always hungry. Would like to take off some weight. Talked about weight gain - asking for dietary suggestions. Social History/Support Network: Home situation: Lives with in [facility] with Velvet. 35 years. 3 children and plan to adopt another one through foster care. 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 40 Pk [...] AM EDT Infusion Hematology Oncology at [address] [phone] 11/30/2023 8:30 AM EDT Office Visit Hematology/Oncology at [address] [phone] Bisi Hollis APRN [address] [place] [address] [place] [address] 11/30/2023 9:00 AM EDT Infusion Hematology Oncology at [address] [phone] 12/07/2023 11:15 AM EDT Office [place] [address] Daisy Lloyd PA [facility] [place] [address] documented as of this encounter Visit Diagnoses Diagnosis Primary malignant neoplasm of right upper lobe of lung Malignant neoplasm of upper lobe, bronchus or lung Nicotine dependence with other nicotine-induced disorder, unspecified nicotine product type documented in this encounter Care Teams Nurse Relationship Specialty Start Date End Date Nick Martinez MD [address] [place] [address] PCP - General Internal Medicine 07/01/18 documented as of this encounter
--- OUTSIDE RECORDS SUMMARY | 2023-10-27 15:22 | XMS_ITS | Encounter Summary ---
Author Organization [facility] [place] [address] Care Team Providers Care Digital Media Analyst Name Role Phone Nick Martinez MD Primary Care Provider Reason for Visit * Reason Comments Chemotherapy Cycle 7, Day 1 - Dur valumab * Treatment/Therapy Plan Authorization (Routine) - Closed Specialty Diagnoses / Procedures Referred By Contac t Referred To Contact Hematology and Oncology Diagnoses Primary malignant neoplasm of right upper lobe of lung Procedures [id number] Boy Jackson MD [facility] DR HEMATOLOGY [place] [address] Boy Tovar MD [address] [place] [address] DR HEMATOLOGY [place] [address] Referral ID Status Reason Start Date Expiration Date Visits Re quested Visits Authorized [id number] Closed 11/05/2021 11/05/2022 99 99 Encounter Details Date Type Department Care Team (Late st Contact Info) Description 09/14/2021 2:30 PM EDT Infusion Hematology Oncology at [address] [phone] Primary malignant neoplasm of right upper lobe [...] AM EDT Infusion Hematology Oncology at [address] [phone] 11/30/2023 8:30 AM EDT Office Visit Hematology/Oncology at [address] [phone] Bisi Hollis APRN [address] [place] [address] DR HEMATOLOGY AND ONCOLOGY [place], [place] [address] 11/30/2023 9:00 AM EDT Infusion Hematology Oncology at [address] [phone] 12/07/2023 11:15 AM EDT Office Visit [place] [address] Daisy Lloyd PA [facility] DR HEMATOLOGY [place] [address] documented as of this encounter Visit Diagnoses [...] 1,500 mg, Intravenous, ONCE, 1 dose, On 09/14/21 at 1545, Administer over 60 Minutes, This agent is restricted to outpatient use. Is this drug being given as an outpatient? Yes New Bag 09/14/2021 3:06 PM EDT 1,500 mg 280 mL/hr documented in this encounter Care Teams Digital Media Analyst Relationship Specialty Start Date End Date Nick Martinez MD [address] [place] [address] PCP - General Internal Medicine 07/01/18 documented as of this encounter
--- OUTSIDE RECORDS SUMMARY | 2023-10-27 15:22 | XMS_ITS | Encounter Summary ---
Author Organization [facility] Address [facility] [place] [address] Care Team Providers Care Refrigeration Engine Operator Name Role Phone Nick Martinez MD Primary Care Provider Reason for Visit * Reason Comments Chemotherapy Cycle 8 Day 1 * Treatment/Therapy Plan Authorization (Routine) - Closed Specialty Diagnoses / Procedures Referred By Contac t Referred To Contact Hematology and Oncology Diagnoses Primary malignant neoplasm of right upper lobe of lung Procedures [id number] Boy Jackson MD [facility] DR HEMATOLOGY [place] [address] Boy Tovar MD [address] [place] [address] [place] [address] Referral ID Status Reason Start Date Expiration Date Visits Re quested Visits Authorized [id number] Closed 11/05/2021 11/05/2022 99 99 Encounter Details Date Type Department Care Team (Late st Contact Info) Description 10/12/2021 2:30 PM EDT Infusion Hematology Oncology at [address] [phone] Primary malignant neoplasm of right [...] to treat. LAB DATA: Done today at [facility] and no holds per [place] orders. IV ACCESS: PIV right hand Pre [...] AM EDT Infusion Hematology Oncology at [address] [phone] 11/30/2023 8:30 AM EDT Office Visit Hematology/Oncology at [address] [phone] Bisi Hollis [address] [place] [address] 11/30/2023 9:00 AM EDT Infusion Hematology Oncology at [address] [phone] 12/07/2023 11:15 AM EDT Office [place] [address] Daisy Lloyd PA [facility] DR HEMATOLOGY [place] [address] documented as of this encounter Visit Diagnoses [...] mL/hr documented in this encounter Care Teams Refrigeration Engine Operator Relationship Specialty Start Date End Date Nick Martinez MD [address] [place] [address] PCP - General Internal Medicine 07/01/18 documented as of this encounter
--- OUTSIDE RECORDS SUMMARY | 2023-10-27 15:22 | XMS_ITS | Encounter Summary ---
Author Organization [facility] [place] [address] Care Team Providers Care Virologist Name Role Phone Nick Martinez MD Primary Care Provider [phone] Encounter Details Date Type Department Care Team (Late st Contact Info) Description 12/28/2021 10:15 PM EDT Ancillary Procedure [place] [address] Boy Tovar MD [facility] DR [place] [address] Social History Tobacco Use Types Packs/Day Years [...] AM EDT Infusion Hematology Oncology at [address] [address] 11/30/2023 8:30 AM EDT Office Visit Hematology/Oncology at [address] [phone] Bisi Hollis APRN [address] [place] [address] DR HEMATOLOGY [place] [address] 11/30/2023 9:00 AM EDT Infusion Hematology Oncology at [address] [address] 12/07/2023 11:15 AM EDT Office Visit [place] [address] Daisy Lloyd PA [facility] DR HEMATOLOGY [place] [address] documented as of this encounter Procedures Procedure Name Priority Date/Time Associated Diagnosis Comments FILM LIBRARY STORAGE ONLY CT CHEST Routine 12/28/2021 10:10 PM EDT documented in this encounter Results * Film Library- Storage Only CT Chest (12/28/2021 10:10 PM EDT) Narrative SUMEET - 12/28/2021 10:10 PM EDT This exam is auto-finalizing. It's purpose is for storage only. Boy Tovar MD IMG FILM LIBRARY ORD ERABLES [place], [place] documented in this encounter Visit Diagnoses Not on filedocumented in this encounter Care Teams Virologist Relationship Specialty Start Date End Date Nick Martinez MD [address] [place] [address] PCP - General Internal Medicine 07/01/18 documented as of this encounter
--- OUTSIDE RECORDS SUMMARY | 2023-10-27 15:22 | XMS_ITS | Encounter Summary ---
Author Organization [facility] [place] [address] Care Team Providers Care Bone Puller Name Role Phone Nick Martinez MD Primary Care Provider [phone] Encounter Details Date Type Department Care Team (Latest Contact Info) Description 04/15/2022 8:57 AM EST - 04/15/2022 9:22 AM [facility] Encounter Hematology [place] [phone] Primary malignant neoplasm of right upper lobe [...] 8:30 AM EDT Infusion Hematology Oncology at [address] [phone] 11/30/2023 8:30 AM EDT Office Visit Hematology/Oncology at [address] [phone] Bisi Hollis APRN [address] [place] [address] DR HEMATOLOGY AND ONCOLOGY [place], [place] [address] 11/30/2023 9:00 AM EDT Infusion Hematology Oncology at [address] [phone] 12/07/2023 11:15 AM EDT Office Visit Radiation Oncology at [facility] [place] [address] Daisy Lloyd PA [facility] HEMATOLOGY [place] [address] documented as of this encounter Procedures Procedure [...] 9:14 AM EST) Neutrophil % 70.4 % [facility] Neutrophil Absolute 4.05 1.70 - 6.10 x10(3)/mc L [facility] Lymph % 15.8 % [facility] Lymphocytes Abs 0.9 0.9 - 3.2 x10(3)/mc L [facility] Monocyte % 10.4 % [facility] Monocyte Abs 0.6 0.3 - 0.9 x10(3)/mc L [facility] Eos % 1.7 % [facility] Eosinophils Abs 0.1 0.0 - 0.4 x10(3)/mc L [facility] Basophil % 0.3 % [facility] Baso Absolute 0.0 0.0 - 0.1 x10(3)/mc L [facility] Immature Gran % 1.40 % [facility] Comment: Immature granulocytes(IG's)percentage and absolute count will include metamyelocytes, myelocytes, and promyelocytes. Blood smears from CBCs yielding IG's will be scanned manually for concordance. If this scan disagrees with the automated IG or if promyelocytes are noted, a manual differential will be performed. Immature Gran Absolute 0.08(H) 0.00 - 0.04 x10(3)/mc L [facility] Blood 04/15/2022 9:14 AM EST 04/15/2022 9:21 AM EST Narrative Resulting Agency Comment Spec In Lab Boy Tovar MD HEMATOLOGY ORDERABLE S [facility] [address] * (ABNORMAL) Hemogram (04/15/2022 9:14 AM EST) White Blood Cell 5.8 4.0 - 9.5 x10(3)/mc L [facility] Red Blood Cell 4.64 4.58 - 5.54 x10(6)/mc L [facility] Hemoglobin 14.0 13.7 - 16.5 g/dL [facility] Hematocrit 39.8(L) 40.5 - 48.5 % [facility] Mean Cell Volume 85.8 82.9 - 93.1 fL [facility] Mean Cell Hemoglobin 30.2 27.5 - 32.1 pg [facility] Mean Cell Hemoglobin Concentration 35.2 32.0 - 35.7 g/dL [facility] Platelet 204 145 - 357 x10(3)/mc L [facility] RDW Standard Deviation 38.5 36.0 - 45.0 fL [facility] RDW coefficient of variation 12.3 11.4 - 13.8 % [facility] Mean Platelet Volume 8.9 7.6 - 12.9 fL [facility] NRBC% auto 0.0 % [facility] NRBC Absolute 0.000 0.000 - 0.000 x10(3)/mc L [facility] Blood 04/15/2022 9:14 AM EST 04/15/2022 9:21 AM EST Narrative Resulting Agency Comment Spec In Lab Boy Tovar MD HEMATOLOGY ORDERABLE S [facility] [address] * Comprehensive metabolic panel (non-fasting) (04/15/2022 9:14 AM EST) Glucose 82 65 - 199 mg/dL [facility] Comment:Diabetes: >=200 mg/d L plus symptoms Blood Urea Nitrogen 19 10 - 20 mg/dL [facility] Creatinine 1.29 0.80 - 1.50 mg/dL [facility] Sodium 141 135 - 145 mmol/L [facility] Potassium 4.4 3.5 - 5.0 mmol/L [facility] Comment: Please note: ??Patients with WBC >100,000 may have falsely elevated Potassium levels. ??For accurate Potassium quantification in these patients send serum separator tube (gold top) for subsequent determinations. ??Contact the Clinical Chemistry Laboratory if there are any questions. Chloride 101 98 - 107 mmol/L [facility] Carbon Dioxide 29 22 - 31 mmol/L [facility] Anion Gap 11 5 - 15 mmol/L [facility] Calcium 9.9 8.5 - 10.5 mg/dL [facility] Protein, Total 7.4 6.1 - 8.0 g/dL [facility] Albumin 4.7 3.2 - 5.2 g/dL [facility] Aspartate Aminotransferase 19 0 - 39 unit/L [facility] Alanine Aminotransferase 22 0 - 55 unit/L [facility] Alkaline Phosphatase 70 40 - 130 unit/L [facility] Bilirubin, Total 0.4 0.2 - 1.3 mg/dL [facility] Est Glomerular Filtration Rate 62 >=60 mL/min/1. 73 m?? [facility] Comment: This patient's estimated GFR [...] Tovar MD CHEMISTRY ORDERABLES Performing Organization Address [facility] Co de Phone Number [facility] [place] [address] * Magnesium (04/15/2022 9:14 AM EST) Magnesium 0.87 0.69 - 1.07 mmol/L [facility] Blood 04/15/2022 9:14 AM EST 04/15/2022 9:21 AM EST Narrative Resulting Agency Comment Spec In Lab Boy Tovar MD CHEMISTRY ORDERABLES Performing Organization Address [facility] Co de Phone Number [facility] [address] documented in this encounter Visit Diagnoses Diagnosis Primary malignant neoplasm of right upper lobe of lung Malignant neoplasm of upper lobe, bronchus or lung documented in this encounter Care Teams Bone Puller Relationship Specialty Start Date End Date Nick Martinez MD [address] [place] [address] PCP - General Internal Medicine 07/01/18 documented as of this encounter
--- OUTSIDE RECORDS SUMMARY | 2023-10-27 15:22 | XMS_ITS | Encounter Summary ---
Author Organization [facility] [place] [address] Care Team Providers Care Ammunition Supervisor Name Role Phone Nick Martinez MD Primary Care Provider [phone] Encounter Details Date Type Department Care Team [...] AM EDT Infusion Hematology Oncology at [address] [phone] 11/30/2023 8:30 AM EDT Office Visit Hematology/Oncology at [address] [phone] Bisi Hollis APRN [address] [place] [address] [place] [address] 11/30/2023 9:00 AM EDT Infusion Hematology Oncology at [address] [phone] 12/07/2023 11:15 AM EDT Office [place] [address] Daisy Lloyd PA [facility] DR [place] [address] documented as of this encounter Visit Diagnoses Not on filedocumented in this encounter Care Teams Ammunition Supervisor Relationship Specialty Start Date End Date Nick Martinez MD [address] [place] [address] PCP - General Internal Medicine 07/01/18 documented as of this encounter
--- OUTSIDE RECORDS SUMMARY | 2023-10-27 15:22 | XMS_ITS | Encounter Summary ---
Author Organization [facility] [place] [address] Care Team Providers Care Ortho Rn Name Role Phone Nick Martinez MD Primary Care Provider [phone] Encounter Details Date Type Department Care Team (Late st Contact Info) Description 01/11/2022 1:00 PM EST Office Visit Hematology/Oncology at [address] [phone] Boy Tovar MD [facility] DR HEMATOLOGY [place] [address] Aliyah Thakur APRN [facility] DR HEMATOLOGY [place] [address] Primary malignant neoplasm of right upper lobe [...] were not included. Hematology & Medical Oncology [address] [address] Raffy Latif is being seen for [id number] [...] Bisi Hollis 01/07/2022 Medical Oncology & Hematology [facility] HPI/Interval History/Subjective: Last seen 12/14/2021 Breathing is good. Uses inhaler when he needs it- Most often at home. Coughing has improved. No diarrhea. Occasional constipated. Still chewing tobacco about the same amount - has tried patches without success. Considering gum orlozenges, but is not currently interested in trying to quit. 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 Busy lifestyle with kids at [...] situation: Lives with in [facility] with Velvet. 35 years. 3 children and plan to adopt another one through foster care. 1 grandchild Employment: [employer] Tobacco use: Quit in 1999. 38 Pk [...] AM EDT Infusion Hematology Oncology at [address] [phone] 11/30/2023 8:30 AM EDT Office Visit Hematology/Oncology at [address] [phone] Bisi Hollis APRN [address] [place] [address] HEMATOLOGY [place] [address] 11/30/2023 9:00 AM EDT Infusion Hematology Oncology at [address] [phone] 12/07/2023 11:15 AM EDT Office Visit [place] [address] Daisy Lloyd PA [facility] DR HEMATOLOGY [place] [address] documented as of this encounter Visit Diagnoses Diagnosis Primary malignant neoplasm of right upper lobe of lung Malignant neoplasm of upper lobe, bronchus or lung documented in this encounter Care Teams Ortho Rn Relationship Specialty Start Date End Date Nick Martinez MD [address] [place] [address] PCP - General Internal Medicine 07/01/18 documented as of this encounter
--- OUTSIDE RECORDS SUMMARY | 2023-10-27 15:22 | XMS_ITS | Encounter Summary ---
Author Organization [facility] [place] [address] Care Team Providers Care Production Cloth Cutter Name Role Phone Nick Martinez MD Primary Care Provider Reason for Referral * Diagnostic Test (Routine) - Closed Specialty Diagnoses / Procedures Referred By Contac t Referred To Contact Radiology Diagnoses Primary malignant neoplasm of right upper lobe of lung Procedures CT Chest w Contrast Ella Diego APRN [facility] [place] [address] [facility] [place] [address] Referral ID Status Reason Start Date Expiration Date V isits Requested Visits Authorized [id number] Closed Specialty Service Requested 04/15/2022 10/14/2023 1 1 Reason for Visit * Diagnostic Test (Routine) - Closed Specialty Diagnoses / Procedures Referred By Contmilagro t Referred To Contact Radiology Diagnoses Primary malignant neoplasm of right upper lobe of lung Procedures CT Chest w Contrast Ella Diego APRN [facility] [place] [address] [facility] [place] [address] Referral ID Status Reason Start Date Expiration Date V isits Requested Visits Authorized [id number] Closed Specialty Service Requested 04/15/2022 10/14/2023 1 1 Encounter Details Date Type Department Care Team (Late st Contact Info) Description 07/16/2022 7:57 AM EDT - 07/16/2022 11:59 PM EDT Hospital [place] [phone] Ella Diego APRN [facility] [address] [place] [address] Primary malignant neoplasm of right upper lobe [...] AM EDT Infusion Hematology Oncology at [address] [phone] 11/30/2023 8:30 AM EDT Office Visit Hematology/Oncology at [address] [phone] Bisi Hollis PANEL MAKER [address] [place] [address] DR HEMATOLOGY [place] [address] 11/30/2023 9:00 AM EDT Infusion Hematology Oncology at [address] [phone] 12/07/2023 11:15 AM EDT Office Visit [place] [address] Daisy Lloyd PA [facility] [place] [address] documented as of this encounter Procedures Procedure [...] who have questions please contact the health infant caregiver that requested your imaging first. ? Electronically signed by: Jarad Parada DO, [facility] ([phone]), at 07/16/2022 9:23 AM Narrative 07/16/2022 9:23 [...] which is dated April 15, 2022. FINDINGS: Division Operations Specialist Images: Noncontributory. Pulmonary parenchyma: There is a [...] bilateral glenohumeral joints. Procedure Note Jarad Parada, DO - 07/16/2022 EXAMINATION: CT CHEST W [...] which is dated April 15, 2022. FINDINGS: Division Operations Specialist Images: Noncontributory. Pulmonary parenchyma: There is a [...] patients who have questions please contactthe health infant caregiver that requested your imaging first. Electronically signed by: Jarad Parada DO, [facility]([phone]), at 07/16/2022 9:23 AM Ella Diego APRN [address] [facility] ORDERABLES documented in this encounter Visit [...] mLs documented in this encounter Care Teams Production Cloth Cutter Relationship Specialty Start Date End Date Nick Martinez MD [address] [place] [address] PCP - General Internal Medicine 07/01/18 documented as of this encounter
--- OUTSIDE RECORDS SUMMARY | 2023-10-27 15:22 | XMS_ITS | Encounter Summary ---
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 He indicated his famiys well and all are busy. He did not identify any new needs at this time. Reminded pt of YEAST MAKER availability and contact information. Will continue as a resource for pt. Brief assessment Supportive Counseling documented in this encounter Plan of Treatment Upcoming Encounters Date Type Department Care Team (Late st Contact Info) Description 11/10/2023 8:30 AM EDT Infusion Hematology Oncology at [address] [phone] 11/30/2023 8:30 AM EDT Office Visit Hematology/Oncology at [address] [phone] Bisi Hollis APRN [address] [place] [address] DR HEMATOLOGY AND ONCOLOGY [place], [place] [address] 11/30/2023 9:00 AM EDT Infusion Hematology Oncology at [address] [phone] 12/07/2023 11:15 AM EDT Office Visit [place] [address] Daisy Lloyd PA [facility] DR HEMATOLOGY [place] [address] documented as of this encounter Visit Diagnoses Not on filedocumented in this encounter Care Teams Banquet Director Relationship Specialty Start Date End Date Nick Martinez MD [address] [place] [address] PCP - General Internal Medicine 07/01/18 documented as of this encounter
--- OUTSIDE RECORDS SUMMARY | 2023-10-27 15:23 | XMS_ITS | Encounter Summary ---
Author Organization [facility] [place] [address] Care Team Providers Care Molecular Physicist Name Role Phone Nick Martinez MD Primary Care Provider [phone] Reason for Visit * Reason Onset Date Comments Medication Refill 08/04/2021 Encounter Details Date Type Department Care Team (Late st Contact Info) Description 08/04/2021 Refill Hematology/Oncology at [address] [phone] Linda Zepeda, RN Pneumonitis Social [...] AM EDT Infusion Hematology Oncology at [address] [phone] 11/30/2023 8:30 AM EDT Office Visit Hematology/Oncology at [address] [phone] Bisi Hollis APRN [address] [place] [address] DR [place] [address] 11/30/2023 9:00 AM EDT Infusion Hematology Oncology at [address] [phone] 12/07/2023 11:15 AM EDT Office Visit [place] [address] Daisy Lloyd PA [facility] DR [place] [address] documented as of this encounter Visit Diagnoses Diagnosis Pneumonitis Pneumonia, organism unspecified documented in this encounter Care Teams Molecular Physicist Relationship Specialty Start Date End Date Nick Martinez MD [address] [place] [address] PCP - General Internal Medicine 07/01/18 documented as of this encounter
--- OUTSIDE RECORDS SUMMARY | 2023-10-27 15:23 | XMS_ITS | Encounter Summary ---
Author Organization [facility] [place] [address] Care Team Providers Care Superintendent Overhead Distribution Name Role Phone Nick Martinez MD Primary Care Provider [phone] Encounter Details Date Type Department Care Team (Late st Contact Info) Description 04/06/2021 8:30 AM EST Office Visit Hematology/Oncology at [address] [phone] Linda Zepeda, RN Primary malignant [...] this encounter Progress Notes * Linda Zepeda, CUTTER DOWN - 04/06/2021 8:30 AM EST Images from the original note were not included. Hematology & Medical Oncology [address] [address] Raffy Latif is being seen [...] questions/concerns or new symptoms. Linda Zepeda MSN, CUTTER DOWN, AOCNP Medical Oncology HPI/Interval History/Subjective: (04/06/21) Mr. [...] History/Support Network: Home situation: Lives with in [facility] with Velvet. 35 years. 3 children and plan to adopt another one through foster care. 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 40 Pk [...] 8:30 AM EDT Infusion Hematology Oncology at [address] [phone] 11/30/2023 8:30 AM EDT Office Visit Hematology/Oncology at [address] [phone] Bisi Hollis [address] HEMATOLOGY AND ONCOLOGY [place], [place] [address] 11/30/2023 9:00 AM EDT Infusion Hematology Oncology at [address] [phone] 12/07/2023 11:15 AM EDT Office [place] [address] Daisy Lloyd PA [facility] DR HEMATOLOGY [place] [address] documented as of this encounter Results * [...] have questions please contact the health career coach that requested your imaging first. ? Narrative 04/11/2021 8:42 AM EST EXAMINATION: REQUEST FOR 2ND READ CT CHEST CLINICAL HISTORY: Stage III C lung cancer- CT of chest done at outside hospital for ED visit for Covid + ??symptoms - currently getting concurrent RT/chemotherapy, Compare CT to previous films- NM PET scan done on 01/19/21, CT chest done on 12/15/20 CT in Rad on 02/11/21; Sending Institution [facility]; Date of exam [id number]; I believe a reinterpretation of this exam may alter care of Patient. Yes TECHNIQUE: Axial contiguous sections were obtained of the chest via helical acquisition after intravenous administration of Omnipaque 350 at [facility] on 03/26/2021. Coronal and sagittal reconstructions were [...] Rad on 02/11/21; Sending Institution [facility];Date of exam [id number]; I believe a reinterpretation of this exam may alter careof Patient. Yes TECHNIQUE: Axial contiguous sections were obtained of the chest viahelical acquisition [facility]. Coronal and sagittalreconstructions were generated. [...] pancreatic hypodensities, not appreciably changed going back [id number], most compatible with side-branch IPMNs. Thank you for letting us participate in the care of this patient. If youare a health care provider and have any questions regarding this report,please contact the number below. For patients who have questions please contactthe health career coach that requested your imaging first. Linda Zepeda RN IMG OUTSIDE INTERPRE TATION ORDERABLES documented in this encounter Visit Diagnoses Diagnosis Primary malignant neoplasm of right upper lobe of lung Malignant neoplasm of upper lobe, bronchus or lung Primary malignant neoplasm of right upper lobe of lung Malignant neoplasm of upper lobe, bronchus or lung documented in this encounter Care Teams Superintendent Overhead Distribution Relationship Specialty Start Date End Date Nick Martinez MD [address] [place] [address] PCP - General Internal Medicine 07/01/18 documented as of this encounter
--- OUTSIDE RECORDS SUMMARY | 2023-10-27 15:23 | XMS_ITS | Encounter Summary ---
Author Organization [facility] [place] [place] [address] Care Team Providers Care Chef Broiler Or Fry Name Role Phone Nick Martinez MD Primary Care Provider [phone] Reason for Visit * Reason Comments Chemotherapy Cycle 1, Day 1 - Dur valumab * Treatment/Therapy Plan Authorization (Routine) - Closed Specialty Diagnoses / Procedures Referred By Contmilagro t Referred To Contact Hematology and Oncology Diagnoses Primary malignant neoplasm of right upper lobe of lung Procedures [id number] Boy Jackson MD [facility] DR [place] [address] Boy Tovar MD [address] [place] [address] [place] [address] Referral ID Status Reason Start Date Expiration Date Visits Re quested Visits Authorized [id number] Closed 11/05/2021 11/05/2022 99 99 Encounter Details Date Type Department Care Team (Late st Contact Info) Description 04/20/2021 9:30 AM EST Infusion Hematology Oncology at [address] [phone] Primary malignant neoplasm of right upper lobe [...] 8:30 AM EDT Infusion Hematology Oncology at [address] [phone] 11/30/2023 8:30 AM EDT Office Visit Hematology/Oncology at [address] [phone] Bisi Hollis APRN [address] [place] [address] DR [place] [address] 11/30/2023 9:00 AM EDT Infusion Hematology Oncology at [address] [address] 12/07/2023 11:15 AM EDT Office [place] [address] Daisy Lloyd PA [facility] DR [place]AT[place] [address] documented as of this encounter Visit Diagnoses [...] 1,500 mg, Intravenous, ONCE, 1 dose, On Tue04/20/21 at 1000, Administer over 60 Minutes, This agent is restricted to outpatient use. Is this drug being given as an outpatient? Yes New Bag 04/20/2021 10:11 AM EST 1,500 mg 28 0 mL/hr documented in this encounter Care Teams Chef Broiler Or Fry Relationship Specialty Start Date End Date Nick Martinez MD [address] [place] [address] PCP - General Internal Medicine 07/01/18 documented as of this encounter
--- OUTSIDE RECORDS SUMMARY | 2023-10-27 15:23 | XMS_ITS | Encounter Summary ---
[place] [address] Care Team Providers Care Industrial Mechanic Name Role Phone Nick Martinez MD Primary Care Provider [phone] Encounter Details Date Type Department Care Team (Latest Contact Info) Description 04/11/2021 12:15 AM EST Ancillary [place] [phone] Linda Zepeda, RN Primary malignant neoplasm of [...] AM EDT Infusion Hematology Oncology at [address] [phone] 11/30/2023 8:30 AM EDT Office Visit Hematology/Oncology at [address] [phone] Bisi Hollis APRN [address] [place] [address] DR [place] [address] 11/30/2023 9:00 AM EDT Infusion Hematology Oncology at [address] [address] 12/07/2023 11:15 AM EDT Office [place] [address] Daisy Lloyd PA [facility] DR [place] [address] documented as of this encounter Procedures Procedure [...] who have questions please contact the health regular senior care provider that requested your imaging first. ? Narrative [...] CT in Rad on 02/11/21; Sending Institution [facility]; Date of exam [id number]; I believe a reinterpretation of this exam may alter care of Patient. Yes TECHNIQUE: Axial contiguous sections were obtained of the chest via helical acquisition after intravenous administration of Omnipaque [address] [facility] on 03/26/2021. Coronal and sagittal reconstructions [...] CT in Rad on 02/11/21; Sending Institution [facility];Date of exam [id number]; I believe a reinterpretation of this exam may alter careof Patient. Yes TECHNIQUE: Axial contiguous sections were obtained of the chest viahelical acquisition [facility] Coronal and sagittalreconstructions were [...] pancreatic hypodensities, not appreciably changed going back [id number], most compatible with side-branch IPMNs. Thank you for letting us participate in the care of this patient. If youare a health care provider and have any questions regarding this report,please contact the number below. For patients who have questions please contactthe health regular senior care provider that requested your imaging first. Linda Zepeda RN IMG OUTSIDE INTERPRE TATION ORDERABLES documented in this encounter Visit Diagnoses Diagnosis Primary malignant neoplasm of right upper lobe of lung Malignant neoplasm of upper lobe, bronchus or lung documented in this encounter Care Teams Industrial Mechanic Relationship Specialty Start Date End Date Nick Martinez MD [address] [place] [address] PCP - General Internal Medicine 07/01/18 documented as of this encounter
--- OUTSIDE RECORDS SUMMARY | 2023-10-27 15:23 | XMS_ITS | Encounter Summary ---
Author Organization [facility] [place] [address] Care Team Providers Care Mine Safety Engineer Name Role Phone Nick Martinez MD Primary Care Provider [phone] Encounter Details Date Type Department Care Team (Late st Contact Info) Description 05/12/2021 Telephone Radiation Oncology at [address] [phone] Alyssa Brar, RN Social History [...] 05/12/2021 11:42 AM EST Telephone call to [facility] pharmacy to clarify if patient has refill [...] BLM. He would like it refilled at [facility] he said. Thanks Inge~ documented in this encounter Plan of Treatment Upcoming Encounters Date Type Department Care Team (Late st Contact Info) Description 11/10/2023 8:30 AM EDT Infusion Hematology Oncology at [address] [phone] 11/30/2023 8:30 AM EDT Office Visit Hematology/Oncology at [address] [phone] Bisi Hollis APRN [address] [place] [address] [place] [address] 11/30/2023 9:00 AM EDT Infusion Hematology Oncology at [address] [address] 12/07/2023 11:15 AM EDT Office Visit [place] [address] Daisy Lloyd PA [facility] DR HEMATOLOGY [place] [address] documented as of this encounter Visit Diagnoses Not on filedocumented in this encounter Care Teams Mine Safety Engineer Relationship Specialty Start Date End Date Nick Martinez MD [address] [place] [address] PCP - General Internal Medicine 07/01/18 documented as of this encounter
--- OUTSIDE RECORDS SUMMARY | 2023-10-27 15:23 | XMS_ITS | Encounter Summary ---
Author Organization [facility] [place] [address] Care Team Providers Care Paleontology Teacher Name Role Phone Nick Martinez MD Primary Care Provider [phone] Encounter Details Date Type Department Care Team (Late st Contact Info) Description 04/16/2021 Orders Only [place]ematology [place] [address] Boy Tovar MD [facility] DR [place] [address] Primary malignant neoplasm of right upper lobe [...] AM EDT Infusion Hematology Oncology at [address] [phone] 11/30/2023 8:30 AM EDT Office Visit Hematology/Oncology at [address] [phone] Bisi Hollis APRN [address] [place] [address] DR [place] [address] 11/30/2023 9:00 AM EDT Infusion Hematology Oncology at [address] [address] 12/07/2023 11:15 AM EDT Office [place] [address] Daisy Lloyd PA [facility] DR [place] [address] documented as of this encounter Visit Diagnoses Diagnosis Primary malignant neoplasm of right upper lobe of lung Malignant neoplasm of upper lobe, bronchus or lung documented in this encounter Care Teams Paleontology Teacher Relationship Specialty Start Date End Date Nick Martinez MD [address] [place] [address] PCP - General Internal Medicine 07/01/18 documented as of this encounter
--- OUTSIDE RECORDS SUMMARY | 2023-10-27 15:23 | XMS_ITS | Encounter Summary ---
Author Organization [facility] [place] [address] Care Team Providers Care Correspondence Transcriber Name Role Phone Nick Martinez MD Primary Care Provider [phone] Reason for Visit * Reason Onset Date Comments Medication Refill 05/28/2021 Encounter Details Date Type Department Care Team (Late st Contact Info) Description 05/28/2021 Refill Hematology/Oncology at [address] [phone] Linda Zepeda, RN Social History [...] AM EDT Infusion Hematology Oncology at [address] [phone] 11/30/2023 8:30 AM EDT Office Visit Hematology/Oncology at [address] [phone] Bisi Hollis APRN [address] [place] [address] DR HEMATOLOGY [place] [address] 11/30/2023 9:00 AM EDT Infusion Hematology Oncology at [address] [address] 12/07/2023 11:15 AM EDT Office Visit [place] [address] Daisy Lloyd PA [facility] DR [place] [address] documented as of this encounter Visit Diagnoses Not on filedocumented in this encounter Care Teams Correspondence Transcriber Relationship Specialty Start Date End Date Nick Martinez MD [address] [place] [address] PCP - General Internal Medicine 07/01/18 documented as of this encounter
--- OUTSIDE RECORDS SUMMARY | 2023-10-27 15:23 | XMS_ITS | Encounter Summary ---
Author Organization [facility] [place] [address] Care Team Providers Care Sole Filler Name Role Phone Nick Martinez MD Primary Care Provider [phone] Encounter Details Date Type Department Care Team (Late st Contact Info) Description 05/18/2021 Notes Only Hematology/Oncology at [address] [phone] Azalea Watkins, FIELD OPERATIONS COORDINATOR OFFICE OF CARE MANAGEMENT Social History Tobacco [...] identify any new needs today. Offered support. FIELD OPERATIONS COORDINATOR will continue as a resource. Financial resources documented in this encounter Plan of Treatment Upcoming Encounters Date Type Department Care Team (Late st Contact Info) Description 11/10/2023 8:30 AM EDT Infusion Hematology Oncology at [address] [phone] 11/30/2023 8:30 AM EDT Office Visit Hematology/Oncology at [address] [phone] Bisi Hollis APRN [address] [place] [address] DR HEMATOLOGY [place] [address] 11/30/2023 9:00 AM EDT Infusion Hematology Oncology at [address] [address] 12/07/2023 11:15 AM EDT Office [place] [address] Daisy Lloyd PA [facility] DR HEMATOLOGY [place] [address] documented as of this encounter Visit Diagnoses Not on filedocumented in this encounter Care Teams Sole Filler Relationship Specialty Start Date End Date Nick Martinez MD [address] [place] [address] PCP - General Internal Medicine 07/01/18 documented as of this encounter
--- OUTSIDE RECORDS SUMMARY | 2023-10-27 15:23 | XMS_ITS | Encounter Summary ---
[place] [address] Care Team Providers Care Model Builder Display Name Role Phone Nick Martinez MD Primary Care Provider Encounter Details Date Type Department Care Team (Late st Contact Info) Description 09/02/2021 12:05 PM EDT Ancillary Procedure [place] [address] Nick Martinez MD [address] [place] [address] Social History Tobacco Use Types [...] AM EDT Infusion Hematology Oncology at [address] [address] 11/30/2023 8:30 AM EDT Office Visit Hematology/Oncology at [address] [phone] Bisi Hollis APRN [address] [place] [address] DR HEMATOLOGY [place] [address] 11/30/2023 9:00 AM EDT Infusion Hematology Oncology at [address] [address] 12/07/2023 11:15 AM EDT Office Visit [place] [phone] Daisy Lloyd PA [facility] DR HEMATOLOGY [place] [address] documented as of this encounter Procedures Procedure Name Priority Date/Time Associated Diagnosis Comments FILM LIBRARY STORAGE ONLY CT CHEST Routine 09/02/2021 12:04 PM EDT documented in this encounter Results * Film Library- Storage Only CT Chest (09/02/2021 12:04 PM EDT) Narrative [facility] - 09/02/2021 12:04 PM EDT This exam is auto-finalizing. It's purpose is for storage only. Nick Martinez MD IMG FILM LIBRARY ORD ERABLES Performing Organization Address City/State/[facility] Co de Phone Number [place], [place] documented in this encounter Visit Diagnoses Not on filedocumented in this encounter Care Teams Model Builder Display Relationship Specialty Start Date End Date Nick Martinez MD [address] [place] [address] PCP - General Internal Medicine 07/01/18 documented as of this encounter
--- OUTSIDE RECORDS SUMMARY | 2023-10-27 15:23 | XMS_ITS | Encounter Summary ---
Author Organization [facility] [place] [address] Care Team Providers Care Senior Electrical Engineer Name Role Phone Nick Martinez MD Primary Care Provider Encounter Details Date Type Department Care Team (Late st Contact Info) Description 09/14/2021 2:00 PM EDT Office Visit Hematology/Oncology at [address] [phone] Boy Tovar MD [facility] [place] [address] Aliyah Thakur APRN [facility] [place] [address] Primary malignant neoplasm of right upper lobe [...] were not included. Hematology & Medical Oncology [address] [address] Raffy Latif is being seen for cT1cN3 [...] - Restage in 3 months Aliyah Fordaniel SHIFT LAB TECHNICIAN 09/14/2021 Medical Oncology & Hematology [facility] HPI/Interval History/Subjective: Last seen 08/10/[address] scan on 09/09/21 at [facility]. 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 No new rashes or diarrhea. Appetite good - always hungry. Would like to take off some weight. Social History/Support Network: Home situation: Lives with in [facility] with Velvet. 35 years. 3 children and plan to adopt another one through foster care. 1 grandchild Employment: [employer] Tobacco use: Quit in 1999. 40 Pk year hx (1-2 ppd x 25 years) Now chews [employer]. Alcohol use: Used to drink more heavily [...] AM EDT Infusion Hematology Oncology at [address] [address] 11/30/2023 8:30 AM EDT Office Visit Hematology/Oncology at [address] [phone] Bisi Hollis APRN [address] [place] [address] DR [place] [address] 11/30/2023 9:00 AM EDT Infusion Hematology Oncology at [address] [address] 12/07/2023 11:15 AM EDT Office Visit [place] [address] Daisy Lloyd PA [facility] [place] [address] documented as of this encounter Visit Diagnoses Diagnosis Primary malignant neoplasm of right upper lobe of lung Malignant neoplasm of upper lobe, bronchus or lung Nicotine dependence with other nicotine-induced disorder, unspecified nicotine product type documented in this encounter Care Teams Senior Electrical Engineer Relationship Specialty Start Date End Date Nick Martinez MD [address] [place] [address] PCP - General Internal Medicine 07/01/18 documented as of this encounter
--- OUTSIDE RECORDS SUMMARY | 2023-10-27 15:23 | XMS_ITS | Encounter Summary ---
Author Organization [facility] [place] [address] Care Team Providers Care Director Media Name Role Phone Nick Martinez MD Primary Care Provider [phone] Reason for Visit * Reason Onset Date Comments Other 05/06/2021 Financial resour rosie Encounter Details Date Type Department Care Team (Late st Contact Info) Description 05/06/2021 Telephone Hematology/Oncology at [address] [phone] Azalea Watkins, NIGHT TIME BABYSITTER OFFICE OF CARE MANAGEMENT Other (Financial resources) [...] AM EDT Infusion Hematology Oncology at [address] [phone] 11/30/2023 8:30 AM EDT Office Visit Hematology/Oncology at [address] [phone] Bisi Hollis APRN [address] [place] [address] DR [place] [address] 11/30/2023 9:00 AM EDT Infusion Hematology Oncology at [address] [address] 12/07/2023 11:15 AM EDT Office [place] [address] Daisy Lloyd PA [facility] DR HEMATOLOGY [place] [address] documented as of this encounter Visit Diagnoses Not on filedocumented in this encounter Care Teams Director Media Relationship Specialty Start Date End Date Nick Martinez MD [address] [place] [address] PCP - General Internal Medicine 07/01/18 documented as of this encounter
--- OUTSIDE RECORDS SUMMARY | 2023-10-27 15:23 | XMS_ITS | Encounter Summary ---
Author Organization [facility] Address [facility] [place] [address] Care Team Providers Care Sap Bw Bi Developer Name Role Phone Nick Martinez MD [...] CARBOplatin (Paraplatin) 260 MG Boy Tovar MD [facility] DR HEMATOLOGY [place] [address] [facility] Hem Onc Office [address] [place] [phone] Referral ID Status Reason Start Date Expiration Date V isits Requested Visits Authorized [id number] 03/02/2021 04/15/2021 20 20 Encounter Details Date Type Department Care Team (Late st Contact Info) Description 04/06/2021 9:00 AM EST Infusion Hematology Oncology at [address] [address] Primary malignant neoplasm of right upper lobe [...] AM EDT Infusion Hematology Oncology at [address] [phone] 11/30/2023 8:30 AM EDT Office Visit Hematology/Oncology at [address] [phone] Bisi Hollis APRN [address] [place] [address] DR [place] [address] 11/30/2023 9:00 AM EDT Infusion Hematology Oncology at [address] [address] 12/07/2023 11:15 AM EDT Office [place] [address] Daisy Lloyd PA [facility] DR HEMATOLOGY [place] [address] documented as of this encounter Visit Diagnoses [...] = 2), Intravenous, ONCE, 1 dose, On Tue04/06/21 at 1030, Administer over 30 Minutes, Warning [...] mLs documented in this encounter Care Teams Sap Bw Bi Developer Relationship Specialty Start Date End Date Nick Martinez MD [address] [place] [address] PCP - General Internal Medicine 07/01/18 documented as of this encounter
--- OUTSIDE RECORDS SUMMARY | 2023-10-27 15:23 | XMS_ITS | Encounter Summary ---
[place] [address] Care Team Providers Care Bank Representative Name Role Phone Nick Martinez MD Primary Care Provider [phone] Reason for Visit * Reason Onset Date Comments Prior Authorization 08/13/2021 Encounter Details Date Type Department Care Team (Late st Contact Info) Description 08/13/2021 Telephone Hematology [place] [address] Manjula Liu Prior Authorization Social [...] request: [id number] Health plan: Health Plan Authorizing product representative name: Health Plan Faxed to health plan on: Call to plan 08/13/21 Health plan decision: PA not required. Call Ref # [id number] documented in this encounter Plan of Treatment Upcoming Encounters Date Type Department Care Team (Late st Contact Info) Description 11/10/2023 8:30 AM EDT Infusion Hematology Oncology at [address] [phone] 11/30/2023 8:30 AM EDT Office Visit Hematology/Oncology at [address] [phone] Bisi Hollis APRN [address] [place] [address] DR HEMATOLOGY AND ONCOLOGY [place], [place] [phone] 11/30/2023 9:00 AM EDT Infusion Hematology Oncology at [address] [phone] 12/07/2023 11:15 AM EDT Office Visit [place] [address] Daisy Lloyd PA [facility] DR [place] [address] documented as of this encounter Visit Diagnoses Not on filedocumented in this encounter Care Teams Bank Representative Relationship Specialty Start Date End Date Nick Martinez MD [address] [place] [address] PCP - General Internal Medicine 07/01/18 documented as of this encounter
--- OUTSIDE RECORDS SUMMARY | 2023-10-27 15:23 | XMS_ITS | Encounter Summary ---
Author Organization [facility] [place] [address] Care Team Providers Care Television Audio Engineer Name Role Phone Nick Martinez MD Primary Care Provider [phone] Encounter Details Date Type Department Care Team (Late st Contact Info) Description 04/15/2021 4:30 PM EST Office Visit Radiation Oncology at [address] [phone] Parker Ross MD [facility] [place] [address] Primary malignant neoplasm of right upper lobe [...] at this time ?? Alimentation: followed by ip attorney, weight loss , all by mouth. Discussed [...] AM EDT Infusion Hematology Oncology at [address] [phone] 11/30/2023 8:30 AM EDT Office Visit Hematology/Oncology at [address] [phone] Bisi Hollis APRN [address] [place] [address] DR [place] [address] 11/30/2023 9:00 AM EDT Infusion Hematology Oncology at [address] [phone] 12/07/2023 11:15 AM EDT Office Visit [place] [address] Daisy Lloyd PA [facility] DR HEMATOLOGY [place] [address] documented as of this encounter Visit Diagnoses Diagnosis Primary malignant neoplasm of right upper lobe of lung Malignant neoplasm of upper lobe, bronchus or lung documented in this encounter Care Teams Television Audio Engineer Relationship Specialty Start Date End Date Nick Martinez MD [address] [place] [address] PCP - General Internal Medicine 07/01/18 documented as of this encounter
--- OUTSIDE RECORDS SUMMARY | 2023-10-27 15:23 | XMS_ITS | Encounter Summary ---
Author Organization [facility] [place] [address] Care Team Providers Care Electric Deicer Inspector Name Role Phone Nick Martinez MD Primary Care Provider Encounter Details Date Type Department Care Team (Late st Contact Info) Description 07/13/2021 1:30 PM EDT Office Visit Hematology/Oncology at [address] [phone] Rinku Turner MD [facility] [place] [address] Linda Zepeda, RN Primary malignant neoplasm of [...] not included. Hematology & Medical Oncology [address] [phone] Raffy Latif is being seen for cT1cN3 [...] MD, MS 07/13/2021 Medical Oncology & Hematology [facility] HPI/Interval History/Subjective: Last seen 06/15/2021 Chews tobacco occasionally Feels better and better. Breathing is quite good. 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 1 grandchild Employment: Eng[employer] Tobacco use: Quit in 1999. 40 Pk [...] 8:30 AM EDT Infusion Hematology Oncology at [address] [phone] 11/30/2023 8:30 AM EDT Office Visit Hematology/Oncology at [address] [phone] Bisi Hollis APRN [address] [place] [address] [place] [address] 11/30/2023 9:00 AM EDT Infusion Hematology Oncology at [address] [phone] 12/07/2023 11:15 AM EDT Office [place] [address] Daisy Lloyd PA [facility] [place] [address] documented as of this encounter Visit Diagnoses Diagnosis Primary malignant neoplasm of right upper lobe of lung Malignant neoplasm of upper lobe, bronchus or lung documented in this encounter Care Teams Electric Deicer Inspector Relationship Specialty Start Date End Date Nick Martinez MD [address] [place] [address] PCP - General Internal Medicine 07/01/18 documented as of this encounter
--- OUTSIDE RECORDS SUMMARY | 2023-10-27 15:23 | XMS_ITS | Encounter Summary ---
Author Organization [facility] [place] [address] Care Team Providers Care Wardrobe Manager Name Role Phone Nick Martinez MD Primary Care Provider [phone] Encounter Details Date Type Department Care Team (Late st Contact Info) Description 08/10/2021 2:30 PM EDT Office Visit Hematology/Oncology at [address] [phone] Boy Tovar MD [facility] DR [place] [address] Aliyah Thakur APRN [facility] DR [place] [address] Primary malignant neoplasm of right upper lobe [...] were not included. Hematology & Medical Oncology [address] [address] Raffy Latif is being seen for cT1cN3 [...] w/o [facility] so he doesn't have to take an extra day off from work Boy Tovar MD, MS 08/10/2021 Medical Oncology & Hematology [facility] HPI/Interval History/Subjective: Last seen 07/13/2021 Still with coughing spells. Clear phlegm. 4-6x per day but able sleep without coughing. No fevers. No sinus or hsx of allergies. Tessalon doesn't seem to help. Chews tobacco occasionally Feels better and better. Breathing is quite good aside from when he is coughing. Can go up flight of stairs Temp extremes doimpat him. 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 No new rashes, changes in breathing, new cough, diarrhea. Social History/Support Network: Home situation: Lives with in [facility] with Velvet. 35 years. 3 children and plan to adopt another one through foster care. 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 40 Pk [...] AM EDT Infusion Hematology Oncology at [address] [phone] 11/30/2023 8:30 AM EDT Office Visit Hematology/Oncology at [address] [phone] Bisi Hollis APRN [address] [place] [address] DR HEMATOLOGY AND ONCOLOGY [place], [place] [address] 11/30/2023 9:00 AM EDT Infusion Hematology Oncology at [address] [phone] 12/07/2023 11:15 AM EDT Office Visit [place] [address] Daisy Lloyd PA [facility] DR [place] [address] documented as of this encounter Visit Diagnoses Diagnosis Primary malignant neoplasm of right upper lobe of lung Malignant neoplasm of upper lobe, bronchus or lung documented in this encounter Care Teams Wardrobe Manager Relationship Specialty Start Date End Date Nick Martinez MD [address] [place] [address] PCP - General Internal Medicine 07/01/18 documented as of this encounter
--- OUTSIDE RECORDS SUMMARY | 2023-10-27 15:23 | XMS_ITS | Encounter Summary ---
Author Organization [facility] [place] [address] Care Team Providers Care Coil Strapper Name Role Phone Nick Martinez MD Primary Care Provider [phone] Encounter Details Date Type Department Care Team (Late st Contact Info) Description 06/15/2021 2:30 PM EDT Office Visit Hematology/Oncology at [address] [phone] Linda Zepeda, RN Pneumonitis Social [...] this encounter Progress Notes * Linda Zepeda, MAIL MESSENGER - 06/15/2021 2:30 PM EDT Images from the original note were not included. Hematology & Medical Oncology [address] [address] Raffy Latif is being seen [...] his antibiotics. 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 Labs and toxicities assessed and [...] Energy level has improved. 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 No other focal complaints today. Social History/Support Network: Home situation: Lives with in [facility] with Velvet. 35 years. 3 children and plan to adopt another one through foster care. 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 40 Pk [...] AM EDT Infusion Hematology Oncology at [address] [phone] 11/30/2023 8:30 AM EDT Office Visit Hematology/Oncology at [address] [phone] Bisi Hollis APRN [address] [place] [address] DR HEMATOLOGY AND ONCOLOGY [place], [place] [address] 11/30/2023 9:00 AM EDT Infusion Hematology Oncology at [address] [phone] 12/07/2023 11:15 AM EDT Office [place] [address] Daisy Lloyd PA [facility] DR [place] [address] documented as of this encounter Visit Diagnoses Diagnosis Pneumonitis Pneumonia, organism unspecified documented in this encounter Care Teams Coil Strapper Relationship Specialty Start Date End Date Nick Martinez MD [address] [place] [address] PCP - General Internal Medicine 07/01/18 documented as of this encounter
--- OUTSIDE RECORDS SUMMARY | 2023-10-27 15:23 | XMS_ITS | Encounter Summary ---
Author Organization [facility] [place] [address] Care Team Providers Care Pleater Hand Name Role Phone Nick Martinez MD Primary Care Provider [phone] Encounter Details Date Type Department Care Team (Late st Contact Info) Description 06/15/2021 Notes Only Hematology/Oncology at [address] [phone] Azalea Watkins, POT LINER OFFICE OF CARE MANAGEMENT Social History Tobacco [...] AM EDT Infusion Hematology Oncology at [address] [phone] 11/30/2023 8:30 AM EDT Office Visit Hematology/Oncology at [address] [phone] Bisi Hollis APRN [address] [place] [address] DR HEMATOLOGY AND ONCOLOGY [place], [place] [phone] 11/30/2023 9:00 AM EDT Infusion Hematology Oncology at [address] [phone] 12/07/2023 11:15 AM EDT Office [place] [address] Daisy Lloyd PA [facility] DR [place] [address] documented as of this encounter Visit Diagnoses Not on filedocumented in this encounter Care Teams Pleater Hand Relationship Specialty Start Date End Date Nick Martinez MD [address] [place] [address] PCP - General Internal Medicine 07/01/18 documented as of this encounter
--- OUTSIDE RECORDS SUMMARY | 2023-10-27 15:23 | XMS_ITS | Encounter Summary ---
Author Organization [facility] [place] [address] Care Team Providers Care Cash Register Balancer Name Role Phone Nick Martinez MD Primary Care Provider Reason for Visit * Reason Comments Chemotherapy [id number] * Treatment/Therapy Plan Authorization (Routine) - Closed Specialty Diagnoses / Procedures Referred By Contac t Referred To Contact Hematology and Oncology Diagnoses Primary malignant neoplasm of right upper lobe of lung Procedures [id number] Boy Jackson MD [facility] [address] [place] [address] Boy Tovar MD [address] [place] [address] DR [place] [address] Referral ID Status Reason Start Date Expiration Date Visits Re quested Visits Authorized [id number] Closed 11/05/2021 11/05/2022 99 99 Encounter Details Date Type Department Care Team (Late st Contact Info) Description 08/10/2021 3:00 PM EDT Infusion Hematology Oncology at [address] [phone] Primary malignant neoplasm of right upper lobe [...] AM EDT Infusion Hematology Oncology at [address] [phone] 11/30/2023 8:30 AM EDT Office Visit Hematology/Oncology at [address] [phone] Bisi Hollis APRN [address] [place] [address] DR [place] [address] 11/30/2023 9:00 AM EDT Infusion Hematology Oncology at [address] [phone] 12/07/2023 11:15 AM EDT Office Visit [place] [address] Daisy Lloyd PA [facility] [place] [address] documented as of this encounter Visit Diagnoses [...] mL/hr documented in this encounter Care Teams Cash Register Balancer Relationship Specialty Start Date End Date Nick Martinez MD [address] [place] [address] PCP - General Internal Medicine 07/01/18 documented as of this encounter
--- OUTSIDE RECORDS SUMMARY | 2023-10-27 15:23 | XMS_ITS | Encounter Summary ---
Author Organization [facility] [place] [address] Care Team Providers Care Orchardist Name Role Phone Nick Martinez MD Primary Care Provider Reason for Visit * Reason Comments Chemotherapy Cycle 3, Day 1 - Dur valumab * Treatment/Therapy Plan Authorization (Routine) - Closed Specialty Diagnoses / Procedures Referred By Contac t Referred To Contact Hematology and Oncology Diagnoses Primary malignant neoplasm of right upper lobe of lung Procedures [id number] Boy Jackson MD [facility] DR [place] [address] Boy Tovar MD [address] [place] [address] DR [place]EMATOLOGY [place] [address] Referral ID Status Reason Start Date Expiration Date Visits Re quested Visits Authorized [id number] Closed 11/05/2021 11/05/2022 99 99 Encounter Details Date Type Department Care Team (Late st Contact Info) Description 06/15/2021 3:00 PM EDT Infusion Hematology Oncology at [address] [phone] Primary malignant neoplasm of right upper lobe [...] AM EDT Infusion Hematology Oncology at [address] [phone] 11/30/2023 8:30 AM EDT Office Visit Hematology/Oncology at [address] [phone] Bisi Hollis APRN [address] [place] [address] DR HEMATOLOGY AND ONCOLOGY [place], [place] [address] 11/30/2023 9:00 AM EDT Infusion Hematology Oncology at [address] [phone] 12/07/2023 11:15 AM EDT Office Visit [place] [phone] Daisy Lloyd PA [facility] DR [place] [address] documented as of this encounter Visit Diagnoses [...] mL/hr documented in this encounter Care Teams Orchardist Relationship Specialty Start Date End Date Nick Martinez MD [address] [place] [address] PCP - General Internal Medicine 07/01/18 documented as of this encounter
--- OUTSIDE RECORDS SUMMARY | 2023-10-27 15:23 | XMS_ITS | Encounter Summary ---
Author Organization [facility] [place] [address] Care Team Providers Care Conference Organizer Name Role Phone Nick Martinez MD Primary Care Provider [phone] Encounter Details Date Type Department Care Team (Late st Contact Info) Description 04/08/2021 Notes Only Radiation Oncology at [address] [phone] Azalea Watkins, PORTFOLIO STRATEGIST OFFICE OF CARE MANAGEMENT Social History Tobacco [...] financial resources to help with his mortgage. PORTFOLIO STRATEGIST had suggested the [employer] as a resource earlier in his treatments. PORTFOLIO STRATEGIST agreed to message the [employer] to make sure pt eligible toapply as he has come to the end of his treatments. If they find pt meets the application criteria will assist pt in completing his application for assistance. Will notify pt once PORTFOLIO STRATEGIST hears from the [employer]. Brief assessment Supportive Counseling Financial resources Community Resource Add: Message from [employer] and pt is able to apply to he [employer] for assistance with his mortgage. TC pt re this. Obtain information for his application. Pt will bring in proof of household income required for his application. PORTFOLIO STRATEGIST will complete and submit his application once all information obtained. documented in this encounter Plan of Treatment Upcoming Encounters Date Type Department Care Team (Late st Contact Info) Description 11/10/2023 8:30 AM EDT Infusion Hematology Oncology at [address] [phone] 11/30/2023 8:30 AM EDT Office Visit Hematology/Oncology at [address] [phone] Bisi Hollis APRN [address] [place] [address] DR HEMATOLOGY AND ONCOLOGY [place], [place] [address] 11/30/2023 9:00 AM EDT Infusion Hematology Oncology at [address] [phone] 12/07/2023 11:15 AM EDT Office Visit [place] [address] Daisy Lloyd PA [facility] DR [place] [address] documented as of this encounter Visit Diagnoses Not on filedocumented in this encounter Care Teams Conference Organizer Relationship Specialty Start Date End Date Nick Martinez MD [address] [place] [address] PCP - General Internal Medicine 07/01/18 documented as of this encounter
--- OUTSIDE RECORDS SUMMARY | 2023-10-27 15:23 | XMS_ITS | Encounter Summary ---
Author Organization [facility] [place] [address] Care Team Providers Care Last Repairer Helper Name Role Phone Nick Martinez MD Primary Care Provider [phone] Encounter Details Date Type Department Care Team (Late st Contact Info) Description 06/08/2021 Refill Hematology/Oncology at [address] [phone] Linda Zepeda, RN Social History [...] 8:30 AM EDT Infusion Hematology Oncology at [address] [phone] 11/30/2023 8:30 AM EDT Office Visit Hematology/Oncology at [address] [phone] Bisi Hollis BLANK DRILLER [address] [place] [address] DR HEMATOLOGY AND ONCOLOGY [place], [place] [phone] 11/30/2023 9:00 AM EDT Infusion Hematology Oncology at [address] [phone] 12/07/2023 11:15 AM EDT Office [place] [address] Daisy Lloyd PA [facility] DR HEMATOLOGY [place] [address] documented as of this encounter Visit Diagnoses Not on filedocumented in this encounter Care Teams Last Repairer Helper Relationship Specialty Start Date End Date Nick Martinez MD [address] [place] [address] PCP - General Internal Medicine 07/01/18 documented as of this encounter
--- OUTSIDE RECORDS SUMMARY | 2023-10-27 15:23 | XMS_ITS | Encounter Summary ---
Author Organization [facility] [place] [address] Care Team Providers Care Section Hand Name Role Phone Nick Martinez MD Primary Care Provider [phone] Encounter Details Date Type Department Care Team (Late st Contact Info) Description 05/28/2021 Orders Only Hematology/Oncology at [address] [phone] Linda Zepeda, RN Social History [...] AM EDT Infusion Hematology Oncology at [address] [phone] 11/30/2023 8:30 AM EDT Office Visit Hematology/Oncology at [address] [phone] Bisi Hollis COMMERCIAL LENDER [address] [place] [address] DR HEMATOLOGY AND ONCOLOGY [place], [place] [id number] 11/30/2023 9:00 AM EDT Infusion Hematology Oncology at [address] [phone] 12/07/2023 11:15 AM EDT Office Visit [place] [address] Daisy Lloyd PA [facility] DR [place] [address] documented as of this encounter Visit Diagnoses Not on filedocumented in this encounter Care Teams Section Hand Relationship Specialty Start Date End Date Nick Martinez MD [address] [place] [address] PCP - General Internal Medicine 07/01/18 documented as of this encounter
--- OUTSIDE RECORDS SUMMARY | 2023-10-27 15:23 | XMS_ITS | Encounter Summary ---
Author Organization [facility] Address [facility] [place] [address] Care Team Providers Care Bods Developer Name Role Phone Nick Martinez MD Primary Care Provider [phone] Reason for Visit * Reason Comments Chemotherapy C4D1 Durvalumab * Treatment/Therapy Plan Authorization (Routine) - Closed Specialty Diagnoses / Procedures Referred By Contac t Referred To Contact Hematology and Oncology Diagnoses Primary malignant neoplasm of right upper lobe of lung Procedures [id number] Boy Jackson MD [facility] DR HEMATOLOGY [place] [address] Boy Tovar MD [address] [place] [address] [place] [address] Referral ID Status Reason Start Date Expiration Date Visits Re quested Visits Authorized [id number] Closed 11/05/2021 11/05/2022 99 99 Encounter Details Date Type Department Care Team (Late st Contact Info) Description 07/13/2021 2:00 PM EDT Infusion Hematology Oncology at [address] [phone] Primary malignant neoplasm of right [...] AM EDT Infusion Hematology Oncology at [address] [phone] 11/30/2023 8:30 AM EDT Office Visit Hematology/Oncology at [address] [phone] Bisi Hollis EVENT MARKETING INTERN [address] [place] [address] DR [place] [address] 11/30/2023 9:00 AM EDT Infusion Hematology Oncology at [address] [phone] 12/07/2023 11:15 AM EDT Office Visit [place] [address] Daisy Lloyd PA [facility] DR HEMATOLOGY [place] [address] documented as of this encounter Visit Diagnoses [...] 1,500 mg, Intravenous, ONCE, 1 dose, On 07/13/21 at 1615, Administer over 60 Minutes, This agent is restricted to outpatient use. Is this drug being given as an outpatient? Yes New Bag 07/13/2021 3:18 PM EDT 1,500 mg 280 mL/hr documented in this encounter Care Teams Bods Developer Relationship Specialty Start Date End Date Nick Martinez MD [address] [place] [address] PCP - General Internal Medicine 07/01/18 documented as of this encounter
--- OUTSIDE RECORDS SUMMARY | 2023-10-27 15:23 | XMS_ITS | Encounter Summary ---
Author Organization [facility] [place] [address] Care Team Providers Care Numerical Control Lathe Operator Name Role Phone Nick Martinez MD Primary Care Provider [phone] Encounter Details Date Type Department Care Team (Late st Contact Info) Description 04/20/2021 Notes Only Hematology/Oncology at [address] [phone] Azalea Watkins, EXPRESSIVE ART THERAPIST OFFICE OF CARE MANAGEMENT Social History Tobacco [...] to report financialstrain. His application to the [facility] is still pending and reminded him of the turn around time of 3-4weeks. His is dealing with some health issues right now too. He did share their adoption of his young foster daughter was finalized last week and they are all very happy re this. Offered support. Reminded pt of EXPRESSIVE ART THERAPIST availability and contact information. Will continue to follow. Brief assessment Supportive Counseling Financial resources documented in this encounter Plan of Treatment Upcoming Encounters Date Type Department Care Team (Late st Contact Info) Description 11/10/2023 8:30 AM EDT Infusion Hematology Oncology at [address] [phone] 11/30/2023 8:30 AM EDT Office Visit Hematology/Oncology at [address] [phone] Bisi Hollis APRN [address] [place] [address] DR HEMATOLOGY [place] [address] 11/30/2023 9:00 AM EDT Infusion Hematology Oncology at [address] [phone] 12/07/2023 11:15 AM EDT Office Visit [place] [address] Daisy Lloyd PA [facility] DR [place] [address] documented as of this encounter Visit Diagnoses Not on filedocumented in this encounter Care Teams Numerical Control Lathe Operator Relationship Specialty Start Date End Date Nick Martinez MD [address] [place] [address] PCP - General Internal Medicine 07/01/18 documented as of this encounter
--- OUTSIDE RECORDS SUMMARY | 2023-10-27 15:23 | XMS_ITS | Encounter Summary ---
Author Organization [facility] [place] [address] Care Team Providers Care Metal Fabricator Welder Name Role Phone Nick Martinez MD Primary Care Provider [phone] Encounter Details Date Type Department Care Team (Late st Contact Info) Description 05/27/2021 Telephone Radiation Oncology at [address] [place] [address] [phone] Katelyn Em RN Social History [...] PM EDT Radiation Oncology Nurse Telephone Note [facility] [place], [place] ----- Message from Ericka Ayon sent [...] please give him a call back at [phone]? 4:09- 4:25 Patient called clinic again asking [...] AM EDT Infusion Hematology Oncology at [address] [place] [address] [address] 11/30/2023 8:30 AM EDT Office Visit Hematology/Oncology at [address] [place] [address] [phone] Bisi Hollis YEAST CULTURE OPERATOR [address] [place] [address] DR HEMATOLOGY [place] [address] 11/30/2023 9:00 AM EDT Infusion Hematology Oncology at [address] [address] 12/07/2023 11:15 AM EDT Office [place] [phone] Daisy Lloyd PA [facility] [place] [address] documented as of this encounter Visit Diagnoses Not on filedocumented in this encounter Care Teams Metal Fabricator Welder Relationship Specialty Start Date End Date Nick Martinez MD [address] [place] [address] PCP - General Internal Medicine 07/01/18 documented as of this encounter
--- OUTSIDE RECORDS SUMMARY | 2023-10-27 15:23 | XMS_ITS | Encounter Summary ---
Author Organization [facility] [place] [address] Care Team Providers Care Hospice Home Health Aide Name Role Phone Nick Martinez MD Primary Care Provider Reason for Visit * Reason Onset Date Comments Medication Refill 05/01/2021 BMX Encounter Details Date Type Department Care Team (Late st Contact Info) Description 05/01/2021 Refill Hematology/Oncology at [address] [phone] Boy Tovar MD [facility] DR HEMATOLOGY [place] [address] Primary malignant neoplasm of right upper lobe [...] 05/01/2021 3:17 PM EST ----- Message from Mceknna Swanson sent at 05/01/2021 3:00 PM EST ----- Raffy called asking for a refill on his diphenhydrAMINE/aluminum-magnesium hydroxide with simethicone/lidocaine (BMX) (6.67 mg-0.83 mg-13.33 mg-1.33 mg/mL) oral liquid prescription. Could someone help with that when time allows and he would appreciate a call back once that is done at [phone]. Thanks Mckenna documented in this encounter Plan of Treatment Upcoming Encounters Date Type Department Care Team (Late st Contact Info) Description 11/10/2023 8:30 AM EDT Infusion Hematology Oncology at [address] [phone] 11/30/2023 8:30 AM EDT Office Visit Hematology/Oncology at [address] [address] Bisi Hollis APRN [address] [place] [address] DR HEMATOLOGY AND ONCOLOGY [place], [place] [address] 11/30/2023 9:00 AM EDT Infusion Hematology Oncology at [address] [phone] 12/07/2023 11:15 AM EDT Office Visit [place] [address] Daisy Lloyd PA [facility] DR HEMATOLOGY [place] [address] documented as of this encounter Visit Diagnoses Diagnosis Primary malignant neoplasm of right upper lobe of lung Malignant neoplasm of upper lobe, bronchus or lung documented in this encounter Care Teams Hospice Home Health Aide Relationship Specialty Start Date End Date Nick Martinez MD [address] [place] [address] PCP - General Internal Medicine 07/01/18 documented as of this encounter
--- OUTSIDE RECORDS SUMMARY | 2023-10-27 15:23 | XMS_ITS | Encounter Summary ---
Author Organization [facility] [place] [address] Care Team Providers Care Nursing Instructor Name Role Phone Nick Martinez MD Primary Care Provider [phone] Encounter Details Date Type Department Care Team (Late st Contact Info) Description 05/28/2021 Telephone Radiation Oncology at [address] [phone] Katelyn Em RN Social History [...] Nurse Telephone Note [facility] [place] [place] Background information : read telephone note [...] no energy. He agreed to go to [facility] for evaluation within the hour. His was with him during this call. I next called [facility] ER and gave report to Jose Roberto and faxed recent records to them at [phone] documented in this encounter Plan of Treatment Upcoming Encounters Date Type Department Care Team (Late st Contact Info) Description 11/10/2023 8:30 AM EDT Infusion Hematology Oncology at [address] [address] 11/30/2023 8:30 AM EDT Office Visit Hematology/Oncology at [address] [phone] Bisi Hollis APRN [address] [place] [address] DR HEMATOLOGY AND ONCOLOGY [place], [place] [address] 11/30/2023 9:00 AM EDT Infusion Hematology Oncology at [address] [phone] 12/07/2023 11:15 AM EDT Office [place] [address] Daisy Lloyd PA [facility] DR [place] [address] documented as of this encounter Visit Diagnoses Not on filedocumented in this encounter Care Teams Nursing Instructor Relationship Specialty Start Date End Date Nick Martinez MD [address] [place] [address] PCP - General Internal Medicine 07/01/18 documented as of this encounter
--- OUTSIDE RECORDS SUMMARY | 2023-10-27 15:23 | XMS_ITS | Encounter Summary ---
Author Organization [facility] [address] Care Team Providers Care Slurry Control Tender Name Role Phone Nick Martinez MD Primary Care Provider [phone] Encounter Details Date Type Department Care Team (Late st Contact Info) Description 04/13/2021 Notes Only Hematology/Oncology at [address] [phone] Azalea Watkins, SIGNAL WORKER OFFICE OF CARE MANAGEMENT Social History Tobacco [...] necessary docum,ents for his application to the [facility] for financial assistance with his mortgage. SIGNAL WORKER completed pt's application per his request and submitted it for consideration. Will notify pt outcome of his request. Financial resources Community Resource documented in this encounter Plan of Treatment Upcoming Encounters Date Type Department Care Team (Late st Contact Info) Description 11/10/2023 8:30 AM EDT Infusion Hematology Oncology at [address] [phone] 11/30/2023 8:30 AM EDT Office Visit Hematology/Oncology at [address] [phone] Bisi Hollis APRN [address] [place] [address] DR HEMATOLOGY [place] [address] 11/30/2023 9:00 AM EDT Infusion Hematology Oncology at [address] [address] 12/07/2023 11:15 AM EDT Office Visit [place] [address] Daisy Lloyd PA [facility] DR [place] [address] documented as of this encounter Visit Diagnoses Not on filedocumented in this encounter Care Teams Slurry Control Tender Relationship Specialty Start Date End Date Nick Martinez MD [address] [place] [address] PCP - General Internal Medicine 07/01/18 documented as of this encounter
--- OUTSIDE RECORDS SUMMARY | 2023-10-27 15:23 | XMS_ITS | Encounter Summary ---
Author [facility] [place] [address] Care Team Providers Care Overhead Door Technician Name Role Phone Nick Martinez MD Primary Care Provider [phone] Encounter Details Date Type Department Care Team (Late st Contact Info) Description 04/22/2021 Orders Only [place] [address] Carlos Marie MD [facility] DR [place] [address] Primary malignant neoplasm of right upper lobe [...] AM EDT Infusion Hematology Oncology at [address] [address] 11/30/2023 8:30 AM EDT Office Visit Hematology/Oncology at [address] [phone] Bisi Hollis APRN [address] [place] [address] DR HEMATOLOGY [place] [address] 11/30/2023 9:00 AM EDT Infusion Hematology Oncology at [address] [address] 12/07/2023 11:15 AM EDT Office Visit [place] [address] Daisy Lloyd PA [facility] HEMATOLOGY [place] [address] documented as of this encounter Visit Diagnoses Diagnosis Primary malignant neoplasm of right upper lobe of lung Malignant neoplasm of upper lobe, bronchus or lung documented in this encounter Care Teams Overhead Door Technician Relationship Specialty Start Date End Date Nick Martinez MD [address] [place] [address] PCP - General Internal Medicine 07/01/18 documented as of this encounter
--- OUTSIDE RECORDS SUMMARY | 2023-10-27 15:23 | XMS_ITS | Encounter Summary ---
Author Organization [facility] [place] [address] Care Team Providers Care Senior Hadoop Developer Name Role Phone Nick Martinez MD Primary Care Provider [phone] Encounter Details Date Type Department Care Team (Late st Contact Info) Description 05/18/2021 2:30 PM EDT Office Visit Hematology/Oncology at [address] [phone] Boy Tovar MD [facility] DR HEMATOLOGY [place] [address] Linda Zepeda, RN Primary malignant neoplasm of [...] in this encounter Progress Notes * Linda Zepead, CHIEF RESERVOIR ENGINEERING - 05/18/2021 2:30 PM EDT Images from the original note were not included. Hematology & Medical Oncology [address] [phone] Raffy Latif is being seen for cT1cN3 [...] be C2 for him today. He tolerated [id number] any adverse effects. Labs and toxicities assessed [...] questions/concerns or new symptoms. Linda Zepeda MSN, CHIEF RESERVOIR ENGINEERING, AOCNP Medical Oncology HPI/Interval History/Subjective: Last seen [...] gaining back weight. 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 He states the first week was rough but its better now. Social History/Support Network: Home situation: Lives with in [facility] with Velvet. 35 years. 3 children and plan to adopt another one through foster care. 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 40 Pk [...] AM EDT Infusion Hematology Oncology at [address] [phone] 11/30/2023 8:30 AM EDT Office Visit Hematology/Oncology at [address] [phone] Bisi Hollis APRN [address] [place] [address] DR [place] [address] 11/30/2023 9:00 AM EDT Infusion Hematology Oncology at [address] [address] 12/07/2023 11:15 AM EDT Office Visit [place] [address] Daisy Lloyd PA [facility] DR HEMATOLOGY [place] [address] documented as of this encounter Visit Diagnoses Diagnosis Primary malignant neoplasm of right upper lobe of lung Malignant neoplasm of upper lobe, bronchus or lung documented in this encounter Care Teams Senior Hadoop Developer Relationship Specialty Start Date End Date Nick Martinez MD [address] [place] [place] [address] PCP - General Internal Medicine 07/01/18 documented as of this encounter
--- OUTSIDE RECORDS SUMMARY | 2023-10-27 15:23 | XMS_ITS | Encounter Summary ---
Author Organization [facility] [place] [address] Care Team Providers Care Supervisor Refining Name Role Phone Nick Martinez MD Primary Care Provider [phone] Encounter Details Date Type Department Care Team (Late st Contact Info) Description 04/03/2021 Telephone Radiation Oncology at [address] [phone] Katelyn Em RN Social History [...] PM EST Radiation Oncology Nurse Telephone Note [facility] [place], [place] ----- Message from Parker Ross MD [...] negative. Background information: >>>>he went to the [facility] ER 03/26/21 when he was tested for [...] day, he can go directly to the senior receptionist area. He was instructed to call clinic if he develops increased pain or other concerning symptoms. For weekend coverage while our clinic is closed, the patient was instructed to call [facility] at [phone] and ask for the manager animation radiation oncologist. Patient verbalized understanding. documented in this encounter Plan of Treatment Upcoming Encounters Date Type Department Care Team (Late st Contact Info) Description 11/10/2023 8:30 AM EDT Infusion Hematology Oncology at [address] [phone] 11/30/2023 8:30 AM EDT Office Visit Hematology/Oncology at [address] [phone] Bisi Hollis [address] [place] [address] 11/30/2023 9:00 AM EDT Infusion Hematology Oncology at [address] [phone] 12/07/2023 11:15 AM EDT Office Visit [place] [address] Daisy Lloyd PA [facility] DR [place] [address] documented as of this encounter Visit Diagnoses Not on filedocumented in this encounter Care Teams Supervisor Refining Relationship Specialty Start Date End Date Nick Martinez MD [address] [place] [address] PCP - General Internal Medicine 07/01/18 documented as of this encounter
--- OUTSIDE RECORDS SUMMARY | 2023-10-27 15:23 | XMS_ITS | Encounter Summary ---
Author Organization [facility] Address [facility] [place] [address] Care Team Providers Care Sales Promotion Director Name Role Phone Nick Martinez MD Primary Care Provider Reason for Visit * Reason Comments Chemotherapy * Treatment/Therapy Plan Authorization (Routine) - Closed Specialty Diagnoses / Procedures Referred By Contac t Referred To Contact Hematology and Oncology Diagnoses Primary malignant neoplasm of right upper lobe of lung Procedures [id number] Boy Jackson MD [facility] DR [place] [address] Boy Tovar MD [address] [place] [address] DR [place] [address] Referral ID Status Reason Start Date Expiration Date Visits Re quested Visits Authorized [id number] Closed 11/05/2021 11/05/2022 99 99 Encounter Details Date Type Department Care Team (Late st Contact Info) Description 05/18/2021 3:00 PM EDT Infusion Hematology Oncology at [address] [phone] Primary malignant neoplasm of right [...] Infusion Hematology Oncology at [address] [phone] 11/30/2023 8:30 AM EDT Office Visit Hematology/Oncology at [address] [phone] Bisi Hollis APRN [address] [place] [address] DR HEMATOLOGY AND ONCOLOGY [place], [place] [phone] 11/30/2023 9:00 AM EDT Infusion Hematology Oncology at [address] [phone] 12/07/2023 11:15 AM EDT Office Visit [place] [address] Daisy Lloyd PA [facility] DR [place] [address] documented as of this encounter Visit Diagnoses [...] mL/hr documented in this encounter Care Teams Sales Promotion Director Relationship Specialty Start Date End Date Nick Martinez MD [address] [place] [address] PCP - General Internal Medicine 07/01/18 documented as of this encounter
--- OUTSIDE RECORDS SUMMARY | 2023-10-27 15:23 | XMS_ITS | Encounter Summary ---
Author Organization [facility] [place] [address] Care Team Providers Care Tassel Making Machine Operator Name Role Phone Nick Martinez MD Primary Care Provider [phone] Encounter Details Date Type Department Care Team (Late st Contact Info) Description 05/28/2021 Ancillary Procedure [place] [address] Boy Tovar MD [facility] DR HEMATOLOGY [place] [address] Social History Tobacco Use Types Packs/Day Years [...] AM EDT Infusion Hematology Oncology at [address] [phone] 11/30/2023 8:30 AM EDT Office Visit Hematology/Oncology at [address] [phone] [place] [address] DR HEMATOLOGY [place] [address] 11/30/2023 9:00 AM EDT Infusion Hematology Oncology at [address] [phone] 12/07/2023 11:15 AM EDT Office Visit [place] [phone] Daisy Lloyd PA [facility] DR HEMATOLOGY [place] [address] documented as of this encounter Procedures Procedure Name Priority Date/Time Associated Diagnosis Comments FILM LIBRARY STORAGE ONLY CT CHEST Routine 05/28/2021 12:00 AM EDT documented in this encounter Results * Film Library- Storage Only CT Chest (05/28/2021 12:00 AM EDT) Narrative [facility] - 06/01/2021 9:37 AM EDT This exam is auto-finalizing. It's purpose is for storage only. Boy Tovar MD IMG FILM LIBRARY ORD ERABLES [place], [place] documented in this encounter Visit Diagnoses Not on filedocumented in this encounter Care Teams Tassel Making Machine Operator Relationship Specialty Start Date End Date Nick Martinez MD [address] [place] [address] PCP - General Internal Medicine 07/01/18 documented as of this encounter
--- OUTSIDE RECORDS SUMMARY | 2023-10-27 15:23 | XMS_ITS | Encounter Summary ---
Author Organization [facility] [place] [address] Care Team Providers Care Chef Name Role Phone Nick Martinez MD Primary Care Provider [phone] Encounter Details Date Type Department Care Team (Late st Contact Info) Description 04/02/2021 Orders Only [place] [address] Parker Ross MD [facility] [place] [address] Social History Tobacco Use Types Packs/Day Years [...] Infusion Hematology Oncology at [address] [phone] 11/30/2023 8:30 AM EDT Office Visit Hematology/Oncology at [address] [phone] Bisi Hollis APRN [address] [place] [address] DR [place] [address] 11/30/2023 9:00 AM EDT Infusion Hematology Oncology at [address] [phone] 12/07/2023 11:15 AM EDT Office Visit [place] [address] Daisy Lloyd PA [facility] DR HEMATOLOGY [place] [address] documented as of this encounter Visit Diagnoses Not on filedocumented in this encounter Care Teams Chef Relationship Specialty Start Date End Date Nick Martinez MD [address] [place] [address] PCP - General Internal Medicine 07/01/18 documented as of this encounter
--- OUTSIDE RECORDS SUMMARY | 2023-10-27 15:23 | XMS_ITS | Encounter Summary ---
Author Organization [facility] [place] [address] Care Team Providers Care Trench Digging Machine Operator Name Role Phone Nick Martinez MD Primary Care Provider [phone] Encounter Details Date Type Department Care Team (Late st Contact Info) Description 06/01/2021 1:30 PM EDT Office Visit Hematology/Oncology at [address] [phone] Boy Tovar MD [facility] DR HEMAT[place]Y [place] [address] Linda Zepeda, RN Primary malignant neoplasm of [...] were not included. Hematology & Medical Oncology [address] [phone] Raffy Latif is being seen for cT1cN3 [...] Boy Tovar MD, MS 06/01/2021 Thoracic Oncology [facility] HPI/Interval History/Subjective: Last seen 05/18/2021 Was [...] one through foster care. 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 40 Pk [...] AM EDT Infusion Hematology Oncology at [address] [address] 11/30/2023 8:30 AM EDT Office Visit Hematology/Oncology at [address] [phone] Bisi Hollis, [place] [address] [place] [address] DR [place]EMAT[place]Y [place] [address] 11/30/2023 9:00 AM EDT Infusion Hematology Oncology at [address] [phone] 12/07/2023 11:15 AM EDT Office Visit [place] [address] Daiys Lloyd PA [facility] DR HEMAT[place]Y [place] [address] documented as of this encounter Visit Diagnoses Diagnosis Primary malignant neoplasm of right upper lobe of lung Malignant neoplasm of upper lobe, bronchus or lung Pneumonitis Pneumonia, organism unspecified documented in this encounter Care Teams Trench Digging Machine Operator Relationship Specialty Start Date End Date Nick Martinez MD [address] [place] [address] PCP - General Internal Medicine 07/01/18 documented as of this encounter
--- OUTSIDE RECORDS SUMMARY | 2023-10-27 15:23 | XMS_ITS | Encounter Summary ---
Author Organization [facility] [place] [address] Care Team Providers Care Dressmaker Or Tailor Name Role Phone Nick Martinez MD Primary Care Provider [phone] Encounter Details Date Type Department Care Team (Late st Contact Info) Description 04/08/2021 Notes Only [place] [address] Parker Ross MD [facility] [place] [address] Social History Tobacco Use Types Packs/Day Years [...] included. Radiation Oncology Treatment Summary PATIENT NAME: Rfafy Latif DATE OF : 1960 DIAGNOSIS / [...] / 30 fractions PLAN IMAGES CLINICAL COURSE Raffy Latif had the following toxicities at the end of treatment (CTCAE v4.03): Site Grade Skin 0 Cough 1 Dyspnea 0 Esophagitis 2 FOLLOW UP Per [facility] protocol documented in this encounter Plan of Treatment Upcoming Encounters Date Type Department Care Team (Late st Contact Info) Description 11/10/2023 8:30 AM EDT Infusion Hematology Oncology at [address] [phone] 11/30/2023 8:30 AM EDT Office Visit Hematology/Oncology at [address] [phone] Bisi Hollis [address] HEMATOLOGY AND ONCOLOGY [place], [place] [phone] 11/30/2023 9:00 AM EDT Infusion Hematology Oncology at [address] [phone] 12/07/2023 11:15 AM EDT Office Visit [place] [address] Daisy Lloyd PA [facility] DR [place] [address] documented as of this encounter Visit Diagnoses Not on filedocumented in this encounter Care Teams Dressmaker Or Tailor Relationship Specialty Start Date End Date Nick Martinez MD [address] [place] [address] PCP - General Internal Medicine 07/01/18 documented as of this encounter
--- OUTSIDE RECORDS SUMMARY | 2023-10-27 15:23 | XMS_ITS | Encounter Summary ---
Author Organization [facility] [place] [address] Care Team Providers Care Freight Brake Operator Name Role Phone Nick Martinez MD Primary Care Provider [phone] Encounter Details Date Type Department Care Team (Late st Contact Info) Description 04/08/2021 5:00 PM EST Office Visit Radiation Oncology at [address] [phone] Parker Ross MD [facility] DR [place] [address] Primary malignant neoplasm of right upper lobe [...] at this time ?? Alimentation: followed by chief reservoir engineering, weight loss , all by mouth ?? [...] AM EDT Infusion Hematology Oncology at [address] [phone] 11/30/2023 8:30 AM EDT Office Visit Hematology/Oncology at [address] [phone] Bisi Hollis [address] [place] [address] 11/30/2023 9:00 AM EDT Infusion Hematology Oncology at [address] [phone] 12/07/2023 11:15 AM EDT Office Visit [place] [address] Daisy Lloyd PA [facility] DR HEMATOLOGY [place] [address] documented as of this encounter Visit Diagnoses Diagnosis Primary malignant neoplasm of right upper lobe of lung Malignant neoplasm of upper lobe, bronchus or lung documented in this encounter Care Teams Freight Brake Operator Relationship Specialty Start Date End Date Nick Martinez MD [address] [place] [address] PCP - General Internal Medicine 07/01/18 documented as of this encounter
--- OUTSIDE RECORDS SUMMARY | 2023-10-27 15:23 | XMS_ITS | Encounter Summary ---
Author Organization [facility] [place] [address] Care Team Providers Care Screening Technician Name Role Phone Nick Martinez MD Primary Care Provider [phone] Encounter Details Date Type Department Care Team (Late st Contact Info) Description 04/13/2021 8:30 AM EST Office Visit Hematology/Oncology at [address] [phone] Boy Tovar MD [facility] DR HEMATOLOGY [place] [address] Linda Zepeda, RN Primary malignant neoplasm of [...] this encounter Progress Notes * Linda Zepeda, SHOE TRIMMER - 04/13/2021 8:30 AM EST Images from the original note were not included. Hematology & Medical Oncology [address] [address] Raffy Latif is being seen for cT1cN3 [...] questions/concerns or new symptoms. Linda Zepeda MSN, SHOE TRIMMER, AOCNP Medical Oncology HPI/Interval History/Subjective: (04/13/21) Mr. [...] History/Support Network: Home situation: Lives with in [facility] with Velvet. 35 years. 3 children and plan to adopt another one through foster care. 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 40 Pk [...] AM EDT Infusion Hematology Oncology at [address] [address] 11/30/2023 8:30 AM EDT Office Visit Hematology/Oncology at [address] [phone] Bisi Hollis, SHOE TRIMMER [address] [place] [address] [place] [address] 11/30/2023 9:00 AM EDT Infusion Hematology Oncology at [address] [phone] 12/07/2023 11:15 AM EDT Office [place] [address] Daisy Lloyd PA [facility] DR HEMATOLOGY [place] [address] documented as of this encounter Visit Diagnoses Diagnosis Primary malignant neoplasm of right upper lobe of lung Malignant neoplasm of upper lobe, bronchus or lung documented in this encounter Care Teams Screening Technician Relationship Specialty Start Date End Date Nick Martinez MD [address] [place] [address] PCP - General Internal Medicine 07/01/18 documented as of this encounter
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
--- OUTSIDE RECORDS SUMMARY | 2023-10-27 15:24 | XMS_ITS | Encounter Summary ---
Author Organization [facility] Cici [place] [id number] Care Team Providers Care Finish Repairer Name Role Phone Nick Martinez MD Primary Care Provider [phone] Reason for Visit * Reason Comments Chemotherapy [...] CARBOplatin (Paraplatin) 260 MG Boy Tovar MD [facility] DR [place] [address] [facility] Hem Onc Office [address] [place] [phone] Referral ID Status Reason Start Date Expiration Date V isits Requested Visits Authorized [id number] 03/02/2021 04/15/2021 20 20 Encounter Details Date Type Department Care Team (Late st Contact Info) Description 03/16/2021 9:00 AM EST Infusion Hematology Oncology at [address] [phone] Primary malignant neoplasm of right upper lobe [...] AM EDT Infusion Hematology Oncology at [address] [address] 11/30/2023 8:30 AM EDT Office Visit Hematology/Oncology at [address] [address] Bisi Hollis [address] HEMATOLOGY [place] [address] 11/30/2023 9:00 AM EDT Infusion Hematology Oncology at [address] [address] 12/07/2023 11:15 AM EDT Office [place] [address] Daisy Lloyd PA [facility] [address] [place] [address] documented as of this encounter Visit Diagnoses [...] = 2), Intravenous, ONCE, 1 dose, On Tue03/16/21 at 1100, Administer over 30 Minutes, Warning [...] mg documented in this encounter Care Teams Finish Repairer Relationship Specialty Start Date End Date Nick Martinez MD [address] [place] [address] PCP - General Internal Medicine 07/01/18 documented as of this encounter
--- OUTSIDE RECORDS SUMMARY | 2023-10-27 15:24 | XMS_ITS | Encounter Summary ---
Author Organization [facility] [place] [address] Care Team Providers Care Transition Nurse Name Role Phone Nick Martinez MD Primary Care Provider [phone] Encounter Details Date Type Department Care Team (Late st Contact Info) Description 03/30/2021 Telephone Hematology [place] [address] Jose Pearl, [facility] DR HEMATOLOGY/[place] [address] Social History Tobacco Use Types Packs/Day Years [...] No 02/04/2021 Housing Stability Vital Sign Answer Joreg e Recorded In the last 12 months, [...] : 1960 Call from: Evelyn (spouse) Raffy aLtif is a 60 y.o. male with stage III-C NSCLC on CORPORATION LAWYER with Carbo/Paclitaxel. He was testedpositive for COVID-19. They had called and spoken with Dr. Carlisle regarding some epistaxis. This is not a concern today. Evelyn is calling to see if Alan should be presenting for his treatment at [facility]. However prior to me calling her back [...] Pearl DO Fellow, Hematology and Medical Oncology [facility] Pager: [phone], 03/30/21, 7:43 AM CC: Dr. Tovar documented in this encounter Plan of Treatment Upcoming Encounters Date Type Department Care Team (Late st Contact Info) Description 11/10/2023 8:30 AM EDT Infusion Hematology Oncology at [address] [phone] 11/30/2023 8:30 AM EDT Office Visit Hematology/Oncology at [address] [phone] Bisi Hollis [address] HEMATOLOGY AND ONCOLOGY [place], [place] [id number] 11/30/2023 9:00 AM EDT Infusion Hematology Oncology at [address] [phone] 12/07/2023 11:15 AM EDT Office Visit [place] [address] Daisy Lloyd PA [facility] DR [place] [address] documented as of this encounter Visit Diagnoses Not on filedocumented in this encounter Care Teams Transition Nurse Relationship Specialty Start Date End Date Nick Martinez MD [address] [place] [address] PCP - General Internal Medicine 07/01/18 documented as of this encounter
--- OUTSIDE RECORDS SUMMARY | 2023-10-27 15:24 | XMS_ITS | Encounter Summary ---
[place] [address] Care Team Providers Care Manager Social Services Name Role Phone Nick Martinez MD Primary Care Provider [phone] Encounter Details Date Type Department Care Team (Late st Contact Info) Description 03/26/2021 Ancillary Procedure [place]iology [place] [address] Nick Martinez MD [address] [place] [address] Social History Tobacco Use Types [...] 8:30 AM EDT Infusion Hematology Oncology at [address] [phone] 11/30/2023 8:30 AM EDT Office Visit Hematology/Oncology at [address] [phone] Bisi Hollis [address] HEMATOLOGY [place] [address] 11/30/2023 9:00 AM EDT Infusion Hematology Oncology at [address] [address] 12/07/2023 11:15 AM EDT Office Visit [place] [address] Daisy Lloyd PA [facility] DR [place] [address] documented as of this encounter Procedures Procedure Name Priority Date/Time Associated Diagnosis Comments FILM LIBRARY STORAGE ONLY DX CHEST Routine 03/26/2021 12:00 AM EST documented in this encounter Results * Film Library- Storage Only DX Chest (03/26/2021 12:00 AM EST) Narrative [facility] - 04/10/2021 2:10 PM EST This exam is auto-finalizing. It's purpose is for storage only. Nick Martinez MD IMG FILM LIBRARY ORD ERABLES Performing Organization Address City/State/[facility] Co de Phone Number [place], [place] documented in this encounter Visit Diagnoses Not on filedocumented in this encounter Care Teams Manager Social Services Relationship Specialty Start Date End Date Nick Martinez MD [address] [place] [address] PCP - General Internal Medicine 07/01/18 documented as of this encounter
--- OUTSIDE RECORDS SUMMARY | 2023-10-27 15:24 | XMS_ITS | Encounter Summary ---
Author Organization [facility] [place] [address] Care Team Providers Care Structural Manager Name Role Phone Nick Martinez MD Primary Care Provider [phone] Encounter Details Date Type Department Care Team (Late st Contact Info) Description 03/09/2021 Notes Only Hematology/Oncology at [address] [phone] Azalea Watkins, BUTTER WRAPPER OFFICE OF CARE MANAGEMENT Social History Tobacco [...] expressed his appreciation for help from the [facility] for his heating fuel costs. Pt indicated they are otherwise managing right now. Pt did not identify any new needs today. Offered support. Reminded pt of BUTTER WRAPPER availability and contact information. Will continue to follow for support and resources. Brief assessment Supportive Counseling Financial resources documented in this encounter Plan of Treatment Upcoming Encounters Date Type Department Care Team (Late st Contact Info) Description 11/10/2023 8:30 AM EDT Infusion Hematology Oncology at [address] [address] 11/30/2023 8:30 AM EDT Office Visit Hematology/Oncology at [address] [phone] Bisi Hollis APRN [address] [place] [address] DR HEMATOLOGY [place] [address] 11/30/2023 9:00 AM EDT Infusion Hematology Oncology at [address] [address] 12/07/2023 11:15 AM EDT Office Visit [place] [address] Daisy Lloyd PA [facility] DR HEMATOLOGY [place] [address] documented as of this encounter Visit Diagnoses Not on filedocumented in this encounter Care Teams Structural Manager Relationship Specialty Start Date End Date Nick Martinez MD [address] [place] [address] PCP - General Internal Medicine 07/01/18 documented as of this encounter
--- OUTSIDE RECORDS SUMMARY | 2023-10-27 15:24 | XMS_ITS | Encounter Summary ---
Author Organization [facility] [place] [address] Care Team Providers Care Hall Supervisor Name Role Phone Nick Martinez MD Primary Care Provider [phone] Encounter Details Date Type Department Care Team (Late st Contact Info) Description 03/25/2021 5:15 PM EST Office Visit Radiation Oncology at [address] [phone] Parker Ross MD [facility] [place] [address] Primary malignant neoplasm of right upper lobe [...] at this time ?? Alimentation: followed by farm equipment operator, weight stable, all by mouth ?? Concern [...] AM EDT Infusion Hematology Oncology at [address] [phone] 11/30/2023 8:30 AM EDT Office Visit Hematology/Oncology at [address] [phone] Bisi Hollis [address] HEMATOLOGY [place] [address] 11/30/2023 9:00 AM EDT Infusion Hematology Oncology at [address] [address] 12/07/2023 11:15 AM EDT Office [place] [address] Daisy Lloyd PA [facility] DR [place] [address] documented as of this encounter Visit Diagnoses Diagnosis Primary malignant neoplasm of right upper lobe of lung Malignant neoplasm of upper lobe, bronchus or lung documented in this encounter Care Teams Hall Supervisor Relationship Specialty Start Date End Date Nick Martinez MD [address] [place] [address] PCP - General Internal Medicine 07/01/18 documented as of this encounter
--- OUTSIDE RECORDS SUMMARY | 2023-10-27 15:24 | XMS_ITS | Encounter Summary ---
Author Organization [facility] [place] [address] Care Team Providers Care Nuclear Powerplant Mechanic Name Role Phone Nick Martinez MD Primary Care Provider [phone] Encounter Details Date Type Department Care Team (Late st Contact Info) Description 03/30/2021 Orders Only [place]ology [place] [address] Boy Tovar MD [facility] DR [place] [address] Primary malignant neoplasm of right upper lobe [...] AM EDT Infusion Hematology Oncology at [address] [address] 11/30/2023 8:30 AM EDT Office Visit Hematology/Oncology at [address] [phone] Bisi Hollis APRN [address] [place] [address] DR HEMATOLOGY [place] [address] 11/30/2023 9:00 AM EDT Infusion Hematology Oncology at [address] [address] 12/07/2023 11:15 AM EDT Office Visit [place] [address] Daisy Lloyd PA [facility] DR [place] [address] documented as of this encounter Visit Diagnoses Diagnosis Primary malignant neoplasm of right upper lobe of lung Malignant neoplasm of upper lobe, bronchus or lung documented in this encounter Care Teams Nuclear Powerplant Mechanic Relationship Specialty Start Date End Date Nick Martinez MD [address] [place] [address] PCP - General Internal Medicine 07/01/18 documented as of this encounter
--- OUTSIDE RECORDS SUMMARY | 2023-10-27 15:24 | XMS_ITS | Encounter Summary ---
Author Organization [place] [address] Care Team Providers Care Theater Education Teacher Name Role Phone Nick Martinez MD Primary Care Provider [phone] Encounter Details Date Type Department Care Team (Late st Contact Info) Description 03/28/2021 Telephone [place]ology [place] [address] Ashly Carlisle MD [facility] DR HEMATOLOGY/[place] [address] Social History Tobacco Use Types Packs/Day Years [...] y.o. male with stage III-C NSCLC on STEAM CONDITIONER FILLING with Carbo/Paclitaxel. He was testedpositive for COVID-19 [...] the ER. Mackenzie go to ER at [facility]. Ashly Carlisle MD, MS Hematology/Medical Oncology Fellow [facility] Page # [phone] 03/28/21, 9:36 AM documented in this encounter Plan of Treatment Upcoming Encounters Date Type Department Care Team (Late st Contact Info) Description 11/10/2023 8:30 AM EDT Infusion Hematology Oncology at [address] [address] 11/30/2023 8:30 AM EDT Office Visit Hematology/Oncology at [address] [phone] Bisi Hollis, SECURITY OPERATIONS CENTER OPERATOR [address] [place] [address] DR HEMATOLOGY AND ONCOLOGY [place], [place] [address] 11/30/2023 9:00 AM EDT Infusion Hematology Oncology at [address] [phone] 12/07/2023 11:15 AM EDT Office [place] [address] Daisy Lloyd PA [facility] DR HEMATOLOGY [place] [address] documented as of this encounter Visit Diagnoses Not on filedocumented in this encounter Care Teams Theater Education Teacher Relationship Specialty Start Date End Date Nick Martinez MD [address] [place] [address] PCP - General Internal Medicine 07/01/18 documented as of this encounter
--- OUTSIDE RECORDS SUMMARY | 2023-10-27 15:24 | XMS_ITS | Encounter Summary ---
Author Organization [facility] [place] [address] Care Team Providers Care Construction Project Assistant Name Role Phone Nick Martinez MD Primary Care Provider Encounter Details Date Type Department Care Team (Late st Contact Info) Description 02/25/2021 5:00 PM EST Office Visit Radiation Oncology at [address] [phone] Parker Ross MD [facility] [place] [address] Primary malignant neoplasm of right upper lobe [...] at this time ?? Alimentation: followed by passport support associate, weight stable, all by mouth CTCAE v4.03 [...] AM EDT Infusion Hematology Oncology at [address] [phone] 11/30/2023 8:30 AM EDT Office Visit Hematology/Oncology at [address] [phone] Bisi Hollis APRN [address] [place] [address] DR HEMATOLOGY AND ONCOLOGY [place], [place] [address] 11/30/2023 9:00 AM EDT Infusion Hematology Oncology at [address] [phone] 12/07/2023 11:15 AM EDT Office Visit [place] [address] Daisy Lloyd PA [facility] DR HEMATOLOGY [place] [address] documented as of this encounter Visit Diagnoses Diagnosis Primary malignant neoplasm of right upper lobe of lung Malignant neoplasm of upper lobe, bronchus or lung documented in this encounter Care Teams Construction Project Assistant Relationship Specialty Start Date End Date Nick Martinez MD [address] [place] [address] PCP - General Internal Medicine 07/01/18 documented as of this encounter
--- OUTSIDE RECORDS SUMMARY | 2023-10-27 15:24 | XMS_ITS | Encounter Summary ---
Author Organization [facility] [place] [address] Care Team Providers Care Reactor Operator Name Role Phone Nick Martinez MD Primary Care Provider [phone] Encounter Details Date Type Department Care Team (Late st Contact Info) Description 03/30/2021 Telephone Hematology/Oncology at [address] [phone] Shaye Elizabeth RN Social History [...] has been to the Emergency Room at [facility] for workup for this. Increased cough. Reports [...] [place] Sent: 03/30/2021 8:11 AM EST To: [facility] Hem Onc Nurse Subject: Patient with [...] Also very angry! His call back is [phone]. Urvashi Dailey documented in this encounter Plan of Treatment Upcoming Encounters Date Type Department Care Team (Late st Contact Info) Description 11/10/2023 8:30 AM EDT Infusion Hematology Oncology at [address] [phone] 11/30/2023 8:30 AM EDT Office Visit Hematology/Oncology at [address] [phone] Bisi Hollis APRN [address] [place] [address] DR HEMATOLOGY AND ONCOLOGY [place], [place] [phone] 11/30/2023 9:00 AM EDT Infusion Hematology Oncology at [address] [address] 12/07/2023 11:15 AM EDT Office [place] [address] Daisy Lloyd PA [facility] DR [place] [address] documented as of this encounter Visit Diagnoses Not on filedocumented in this encounter Care Teams Reactor Operator Relationship Specialty Start Date End Date Nick Martinez MD [address] [place] [address] PCP - General Internal Medicine 07/01/18 documented as of this encounter
--- OUTSIDE RECORDS SUMMARY | 2023-10-27 15:24 | XMS_ITS | Encounter Summary ---
Author Organization [facility] [place] [address] Care Team Providers Care Poultry Offal Icer Name Role Phone Nick Martinez MD Primary Care Provider [phone] Encounter Details Date Type Department Care Team (Late st Contact Info) Description 03/23/2021 8:00 AM EST Office Visit Hematology/Oncology at [address] [phone] Linda Zepeda, RN Primary malignant [...] were not included. Hematology & Medical Oncology [address] [address] Raffy Latif is being seen [...] questions/concerns or new symptoms. Linda Zepeda MSN, MANAGER TRANSPORTATION PLANNING, AOCNP Medical Oncology HPI/Interval History/Subjective: (03/23/21) Mr. [...] one through foster care. 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 40 Pk [...] AM EDT Infusion Hematology Oncology at [address] [phone] 11/30/2023 8:30 AM EDT Office Visit Hematology/Oncology at [address] [phone] Bisi Hollis APRN [address] [place] [address] DR HEMATOLOGY AND ONCOLOGY [place], [place] [address] 11/30/2023 9:00 AM EDT Infusion Hematology Oncology at [address] [phone] 12/07/2023 11:15 AM EDT Office Visit [place] [address] Daisy Lloyd PA [facility] DR [place] [address] documented as of this encounter Visit Diagnoses Diagnosis Primary malignant neoplasm of right upper lobe of lung Malignant neoplasm of upper lobe, bronchus or lung documented in this encounter Care Teams Poultry Offal Icer Relationship Specialty Start Date End Date Nick Martinez MD [address] [place] [address] PCP - General Internal Medicine 07/01/18 documented as of this encounter
--- OUTSIDE RECORDS SUMMARY | 2023-10-27 15:24 | XMS_ITS | Encounter Summary ---
Author Organization [facility] [place] [address] Care Team Providers Care Electronic Industrial Controls Mechanic Name Role Phone Nick Martinez MD Primary Care Provider [phone] Reason for Visit * Reason Comments IV Access Encounter Details Date Type Department Care Team (Late st Contact Info) Description 02/11/2021 3:00 PM EST Infusion Hematology Oncology at [address] [phone] Primary malignant neoplasm of right [...] AM EDT Infusion Hematology Oncology at [address] [phone] 11/30/2023 8:30 AM EDT Office Visit Hematology/Oncology at [address] [phone] Bisi Hollis APRN [address] [place] [address] [place] [address] 11/30/2023 9:00 AM EDT Infusion Hematology Oncology at [address] [phone] 12/07/2023 11:15 AM EDT Office Visit [place] [address] Daisy Lloyd PA [facility] DR HEMATOLOGY [place] [address] documented as of this encounter Visit Diagnoses Diagnosis Primary malignant neoplasm of right upper lobe of lung Malignant neoplasm of upper lobe, bronchus or lung documented in this encounter Care Teams Electronic Industrial Controls Mechanic Relationship Specialty Start Date End Date Nick Martinez MD [address] [place] [address] PCP - General Internal Medicine 07/01/18 documented as of this encounter
--- OUTSIDE RECORDS SUMMARY | 2023-10-27 15:24 | XMS_ITS | Encounter Summary ---
Author Organization [facility] [place] [address] Care Team Providers Care Internal Controls Analyst Name Role Phone Nick Martinez MD Primary Care Provider Encounter Details Date Type Department Care Team (Late st Contact Info) Description 02/11/2021 3:30 PM EST Office Visit Radiation Oncology at [address] [phone] Parker Ross MD [facility] [place] [address] Primary malignant neoplasm of right upper lobe [...] to help manage the side effects. ?? Registration Rep - They take the doctors radiation prescription [...] a well balanced diet is recommended. The escrow officer and nurse will inform you of any special diet requirements. Avoid shaving the treatment area with a razor. If you must shave use an electric razor. Our Contact numbers Section of Radiation Oncology Our normal business hours are: Tuesday - Tuesday: 8:00 AM to 5:00 PM [facility]: [facility]: If you have questions about [...] injury ?? A Radiation Oncology doctor is surgeon partner after our normal hours and on weekends. ?? To call for urgent medical issues from radiation treatments that can not wait until normal business hours: ?? Call for either location and have the metal drill press operator page the Radiation Oncologist surgeon partner. documented in this encounter Progress Notes * [...] AM EDT Infusion Hematology Oncology at [address] [address] 11/30/2023 8:30 AM EDT Office Visit Hematology/Oncology at [address] [phone] Bisi Hollis APRN [address] [place] [address] DR HEMATOLOGY AND ONCOLOGY [place], [place] [address] 11/30/2023 9:00 AM EDT Infusion Hematology Oncology at [address] [phone] 12/07/2023 11:15 AM EDT Office [place] [address] Daisy Lloyd PA [facility] DR HEMATOLOGY [place] [address] documented as of this encounter Visit Diagnoses Diagnosis Primary malignant neoplasm of right upper lobe of lung Malignant neoplasm of upper lobe, bronchus or lung documented in this encounter Care Teams Internal Controls Analyst Relationship Specialty Start Date End Date Nick Martinez MD [address] [place] [address] PCP - General Internal Medicine 07/01/18 documented as of this encounter
--- OUTSIDE RECORDS SUMMARY | 2023-10-27 15:24 | XMS_ITS | Encounter Summary ---
Author Organization [facility] [place] [address] Care Team Providers Care Utility Porter Name Role Phone Nick Martinez MD Primary Care Provider Encounter Details Date Type Department Care Team (Late st Contact Info) Description 03/18/2021 5:00 PM EST Office Visit Radiation Oncology at [address] [phone] Parker Ross MD [facility] [place] [address] Primary malignant neoplasm of right upper lobe [...] at this time ?? Alimentation: followed by assistant secretary, weight stable, all by mouth CTCAE v4.03 [...] 8:30 AM EDT Infusion Hematology Oncology at [address] [address] 11/30/2023 8:30 AM EDT Office Visit Hematology/Oncology at [address] [phone] Bisi Hollis APRN [address] [place] [address] DR HEMATOLOGY [place] [address] 11/30/2023 9:00 AM EDT Infusion Hematology Oncology at [address] [address] 12/07/2023 11:15 AM EDT Office [place] [address] Daisy Lloyd PA [facility] DR HEMATOLOGY [place] [address] documented as of this encounter Visit Diagnoses Diagnosis Primary malignant neoplasm of right upper lobe of lung Malignant neoplasm of upper lobe, bronchus or lung documented in this encounter Care Teams Utility Porter Relationship Specialty Start Date End Date Nick Martinez MD [address] [place] [address] PCP - General Internal Medicine 07/01/18 documented as of this encounter
--- OUTSIDE RECORDS SUMMARY | 2023-10-27 15:24 | XMS_ITS | Encounter Summary ---
Author Organization [facility] [place] [address] Care Team Providers Care Supervisor Cooler Service Name Role Phone Nick Martinez MD Primary Care Provider [phone] Encounter Details Date Type Department Care Team (Late st Contact Info) Description 03/02/2021 8:30 AM EST Clinical Support Hematology/Oncology at [address] [phone] Boy Tovar MD [facility] DR [place] [address] Linda Zepeda, RN Primary malignant neoplasm of [...] not included. Hematology & Medical Oncology [address] [address] Raffy Latif is being seen for cT1cN3 [...] Visits: You will see the doctor or AUTOMATIC RIVETING MACHINE OPERATOR prior to each treatment to review your [...] Supportive Care: His Velvet who works at [employer] in [employer]. He also has children who are supportive. [...] questions/concerns or new symptoms. Linda Zepeda MSN, BIOMEDICAL EQUIPMENT SUPPORT SPECIALIST, AOCNP Medical Oncology I spent 40 minutes, [...] History/Support Network: Home situation: Lives with in [facility] with Velvet. 35 years. 3 children and plan to adopt another one through foster care. 1 grandchild Employment: [employer] Tobacco use: Quit in 1999. 40 [address] [...] AM EDT Infusion Hematology Oncology at [address] [address] 11/30/2023 8:30 AM EDT Office Visit Hematology/Oncology at [address] [phone] Bisi Hollis APRN [address] [place] [address] [place] [address] 11/30/2023 9:00 AM EDT Infusion Hematology Oncology at [address] [address] 12/07/2023 11:15 AM EDT Office [place] [address] Daisy Lloyd PA [facility] DR [place] [address] documented as of this encounter Visit Diagnoses Diagnosis Primary malignant neoplasm of right upper lobe of lung Malignant neoplasm of upper lobe, bronchus or lung documented in this encounter Care Teams Supervisor Cooler Service Relationship Specialty Start Date End Date Nick Martinez MD [address] [place] [address] PCP - General Internal Medicine 07/01/18 documented as of this encounter
--- OUTSIDE RECORDS SUMMARY | 2023-10-27 15:24 | XMS_ITS | Encounter Summary ---
Author Organization [facility] Address [facility] [place] [address] Care Team Providers Care Die Assembler Name Role Phone Nick Martinez MD Primary Care Provider [phone] Encounter Details Date Type Department Care Team (Late st Contact Info) Description 02/06/2021 Orders Only Hematology [place] [address] Boy Tovar MD [facility] DR [place] [address] Primary malignant neoplasm of right upper lobe [...] 8:30 AM EDT Infusion Hematology Oncology at [address] [address] 11/30/2023 8:30 AM EDT Office Visit Hematology/Oncology at [address] [phone] Bisi Hollis APRN [address] [place] [address] DR [place] [address] 11/30/2023 9:00 AM EDT Infusion Hematology Oncology at [address] [phone] 12/07/2023 11:15 AM EDT Office Visit [place] [address] Daisy Lloyd PA [facility] DR H[place]ATOLOGY [place] [address] documented as of this encounter Visit Diagnoses Diagnosis Primary malignant neoplasm of right upper lobe of lung- Primary Malignant neoplasm of upper lobe, bronchus or lung documented in this encounter Care Teams Die Assembler Relationship Specialty Start Date End Date Nick Martinez MD [address] [place] [address] PCP - General Internal Medicine 07/01/18 documented as of this encounter
--- OUTSIDE RECORDS SUMMARY | 2023-10-27 15:24 | XMS_ITS | Encounter Summary ---
Author Organization [facility] Cici benn[place] [id number] Care Team Providers Care Senior Media Planner Name Role Phone Nick Martinez MD Primary Care Provider [phone] Reason for Visit * Reason Comments Chemotherapy [...] CARBOplatin (Paraplatin) 260 MG Boy Tovar MD [facility] [place] [address] [facility] Hem Onc Office [address] [place] [phone] Referral ID Status Reason Start Date Expiration Date V isits Requested Visits Authorized [id number] 03/02/2021 04/15/2021 20 20 Encounter Details Date Type Department Care Team (Late st Contact Info) Description 03/02/2021 9:30 AM EST Infusion Hematology Oncology at [address] [address] Primary malignant neoplasm of right upper lobe [...] clinic hours (8am-5pm Tuesday-Tuesday): pt. can call [phone] with questions or concerns. After clinic hours (5pm-8am Tuesday-Tuesday and weekends) pt can call [phone] and ask for the research psychologist/oncologist container coordinator. Raffy Latif verbalized understanding of potential chemotherapy [...] 8:30 AM EDT Infusion Hematology Oncology at [address] [phone] 11/30/2023 8:30 AM EDT Office Visit Hematology/Oncology at [address] [phone] Bisi Hollis APRN [address] [place] [address] DR HEMATOLOGY AND ONCOLOGY [place], [place] [id number] 11/30/2023 9:00 AM EDT Infusion Hematology Oncology at [address] [phone] 12/07/2023 11:15 AM EDT Office Visit [place] [address] Daisy Lloyd PA [facility] DR [place] [address] documented as of this encounter Visit Diagnoses [...] 0.25 mg, Intravenous, ONCE, 1 dose, On Tue03/02/21 at 1015, Administer over 30 seconds., Routine Given 03/02/2021 10:14 AM EST 0.25 mg documented in this encounter Care Teams Senior Media Planner Relationship Specialty Start Date End Date Nick Martinez MD [address] [place] [address] PCP - General Internal Medicine 07/01/18 documented as of this encounter
--- OUTSIDE RECORDS SUMMARY | 2023-10-27 15:24 | XMS_ITS | Encounter Summary ---
Author Organization [facility] [place] [address] Care Team Providers Care Field Administrative Assistant Name Role Phone Nick Martinez MD [...] CARBOplatin (Paraplatin) 260 MG Boy Tovar MD [facility] DR [place] [address] [facility] Hem Onc Office [address] [place] [phone] Referral ID Status Reason Start Date Expiration Date V isits Requested Visits Authorized [id number] 03/02/2021 04/15/2021 20 20 Encounter Details Date Type Department Care Team (Late st Contact Info) Description 03/09/2021 9:00 AM EST Infusion Hematology Oncology at [address] [phone] Primary malignant neoplasm of right upper lobe [...] AM EDT Infusion Hematology Oncology at [address] [address] 11/30/2023 8:30 AM EDT Office Visit Hematology/Oncology at [address] [phone] Bisi Hollis [address] HEMATOLOGY AND ONCOLOGY [place], [place] [address] 11/30/2023 9:00 AM EDT Infusion Hematology Oncology at [address] [address] 12/07/2023 11:15 AM EDT Office [place] [address] Daisy Lloyd PA [facility] DR [place] [address] documented as of this encounter Visit Diagnoses [...] = 2), Intravenous, ONCE, 1 dose, On Tue03/09/21 at 1015, Administer over 30 Minutes, Warning [...] mg documented in this encounter Care Teams Field Administrative Assistant Relationship Specialty Start Date End Date Nick Martinez MD [address] [place] [address] PCP - General Internal Medicine 07/01/18 documented as of this encounter
--- OUTSIDE RECORDS SUMMARY | 2023-10-27 15:24 | XMS_ITS | Encounter Summary ---
Author Organization [facility] [place] [address] Care Team Providers Care Director Surgical Name Role Phone Nick Martinez MD Primary Care Provider [phone] Encounter Details Date Type Department Care Team (Late st Contact Info) Description 03/26/2021 Telephone Radiation Oncology at [address] [phone] Katelyn Em RN Social History [...] AM EST Radiation Oncology Nurse Telephone Note [facility] [place], [place] 03/26/[address] Patient called with his concern [...] for COVID. He agreed to go to [facility] ER. I also explained that we will ask him to call our clinic when he arrives in the parking lot for hisdaily treatments. He confirms having a cell phone. I further explained the process of the radiation therapists meeting him in the main hallway and bypassing the receptionist doctor's office area and taking the back hallway directly to the treatment room. He agreed to this plan. Telephone report given to Judi at [facility] ( [facility]) ER [phone] recent clinic notes were faxed to them at [phone] 1:10 Dr Quiros from [facility] called stating they did lab and CXR [...] AM EDT Infusion Hematology Oncology at [address] [address] 11/30/2023 8:30 AM EDT Office Visit Hematology/Oncology at [address] [phone] Bisi Hollis [address] HEMATOLOGY [place] [address] 11/30/2023 9:00 AM EDT Infusion Hematology Oncology at [address] [address] 12/07/2023 11:15 AM EDT Office Visit [place] [phone] Daisy Lloyd PA [facility] DR HEMATOLOGY [place] [address] documented as of this encounter Visit Diagnoses Not on filedocumented in this encounter Care Teams Director Surgical Relationship Specialty Start Date End Date Nick Martinez MD [address] [place] [address] PCP - General Internal Medicine 07/01/18 documented as of this encounter
--- OUTSIDE RECORDS SUMMARY | 2023-10-27 15:24 | XMS_ITS | Encounter Summary ---
Author Organization [facility] [place] [address] Care Team Providers Care Family Health Nurse Practitioner Name Role Phone Nick Martinez MD Primary Care Provider [phone] Encounter Details Date Type Department Care Team (Late st Contact Info) Description 03/23/2021 Notes Only Hematology/Oncology at [address] [phone] Azalea Watkins, BIOLOGY INTERN OFFICE OF CARE MANAGEMENT Social History Tobacco [...] any new needs today. Reminded pt of BIOLOGY INTERN availability and contact information. Will continue to follow. documented in this encounter Plan of Treatment Upcoming Encounters Date Type Department Care Team (Late st Contact Info) Description 11/10/2023 8:30 AM EDT Infusion Hematology Oncology at [address] [phone] 11/30/2023 8:30 AM EDT Office Visit Hematology/Oncology at [address] [address] Bisi Hollis APRN [address] [place] [address] DR [place] [address] 11/30/2023 9:00 AM EDT Infusion Hematology Oncology at [address] [address] 12/07/2023 11:15 AM EDT Office Visit [place] [address] Daisy Lloyd PA [facility] DR [place] [address] documented as of this encounter Visit Diagnoses Not on filedocumented in this encounter Care Teams Family Health Nurse Practitioner Relationship Specialty Start Date End Date Nick Martinez MD [address] [place] [address] PCP - General Internal Medicine 07/01/18 documented as of this encounter
--- OUTSIDE RECORDS SUMMARY | 2023-10-27 15:24 | XMS_ITS | Encounter Summary ---
Author Organization [facility] [place] [address] Care Team Providers Care Loom Overhauler Name Role Phone Nick Martinez MD Primary Care Provider [phone] Reason for Visit * Reason Onset Date Comments Other 02/09/2021 financial distre ss Encounter Details Date Type Department Care Team (Late st Contact Info) Description 02/09/2021 Telephone Radiation Oncology at [address] [phone] Azalea Watkins, EDGE GLUE MACHINE TENDER OFFICE OF CARE MANAGEMENT Other (financial distress) [...] place of employment. 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 Discussed financial concerns. They have been [...] AM EDT Infusion Hematology Oncology at [address] [address] 11/30/2023 8:30 AM EDT Office Visit Hematology/Oncology at [address] [phone] Bisi Hollis APRN [address] [place] [address] DR HEMATOLOGY AND ONCOLOGY [place], [place] [phone] 11/30/2023 9:00 AM EDT Infusion Hematology Oncology at [address] [phone] 12/07/2023 11:15 AM EDT Office [place] [address] Daisy Lloyd PA [facility] DR HEMATOLOGY [place] [address] documented as of this encounter Visit Diagnoses Not on filedocumented in this encounter Care Teams Loom Overhauler Relationship Specialty Start Date End Date Nick Martinez MD [address] [place] [address] PCP - General Internal Medicine 07/01/18 documented as of this encounter
--- OUTSIDE RECORDS SUMMARY | 2023-10-27 15:24 | XMS_ITS | Encounter Summary ---
Author Organization [facility] [place] [address] Care Team Providers Care Publications Distribution Clerk Name Role Phone Nick Martinez MD Primary Care Provider [phone] Reason for Visit * Reason Comments Chemotherapy [...] CARBOplatin (Paraplatin) 260 MG Boy Tovar MD [facility] DR [place] [address] [facility] Hem Onc Office [address] [place] [phone] Referral ID Status Reason Start Date Expiration Date V isits Requested Visits Authorized [id number] 03/02/2021 04/15/2021 20 20 Encounter Details Date Type Department Care Team (Late st Contact Info) Description 03/23/2021 8:30 AM EST Infusion Hematology Oncology at [address] [address] Primary malignant neoplasm of right upper lobe [...] AM EDT Infusion Hematology Oncology at [address] [address] 11/30/2023 8:30 AM EDT Office Visit Hematology/Oncology at [address] [phone] Bisi Hollis [address] HEMATOLOGY [place] [address] 11/30/2023 9:00 AM EDT Infusion Hematology Oncology at [address] [address] 12/07/2023 11:15 AM EDT Office Visit [place] [address] Daisy Lloyd PA [facility] DR [place] [address] documented as of this encounter Visit Diagnoses [...] = 2), Intravenous, ONCE, 1 dose, On Tue03/23/21 at 0945, Administer over 30 Minutes, Warning [...] mg documented in this encounter Care Teams Publications Distribution Clerk Relationship Specialty Start Date End Date Nick Martinez MD [address] [place] [address] PCP - General Internal Medicine 07/01/18 documented as of this encounter
--- OUTSIDE RECORDS SUMMARY | 2023-10-27 15:24 | XMS_ITS | Encounter Summary ---
Author Organization [facility] [place] [address] Care Team Providers Care Validation Consultant Name Role Phone Nick Martinez MD Primary Care Provider [phone] Reason for Visit * Reason Onset Date Comments Other 03/05/2021 financial resour rosie Encounter Details Date Type Department Care Team (Late st Contact Info) Description 03/05/2021 Telephone Radiation Oncology at [address] [phone] Azalea Watkins, REFRACTORY SPECIALIST OFFICE OF CARE MANAGEMENT Other (financial resources) [...] 11:16 AM EST Received notification that the [employer] Vt approved pt's request for $450 towards [...] AM EDT Infusion Hematology Oncology at [address] [phone] 11/30/2023 8:30 AM EDT Office Visit Hematology/Oncology at [address] [phone] Bisi Hollis APRN [address] [place] [address] DR HEMATOLOGY AND ONCOLOGY [place], [place] [address] 11/30/2023 9:00 AM EDT Infusion Hematology Oncology at [address] [address] 12/07/2023 11:15 AM EDT Office [place] [address] Daisy Lloyd PA [facility] DR HEMATOLOGY [place] [address] documented as of this encounter Visit Diagnoses Not on filedocumented in this encounter Care Teams Validation Consultant Relationship Specialty Start Date End Date Nick Martinez MD [address] [place] [address] PCP - General Internal Medicine 07/01/18 documented as of this encounter
--- OUTSIDE RECORDS SUMMARY | 2023-10-27 15:24 | XMS_ITS | Encounter Summary ---
Author Organization [facility] [place] [address] Care Team Providers Care Melter Clerk Name Role Phone Nick Martinez MD Primary Care Provider [phone] Encounter Details Date Type Department Care Team (Late st Contact Info) Description 02/18/2021 Telephone Radiation Oncology at [address] [phone] Alyssa Brar, RN Social History [...] [facility] Nic[facility]. * Telephone Encounter - Alyssa Brar RN - 02/18/2021 11:24 AM EST ----- Message from Parker Ross MD sent at 02/17/2021 9:57 PM EST ----- Regarding: RE: Wants a Nicotine patch I called it in the [facility] pharmacy in [facility], please let him know. ----- Message ----- From: Alyssa Brar RN Sent: 02/16/2021 6:03 PM EST To: Parker Ross MD Subject: FW: Wants a Nicotine patch Is this something that you are willing to order for him? Alyssa ----- Message ----- From: Lou Badillo Sent: 02/16/2021 8:36 AM EST To: St Rad Onc Nurse Subject: Wants a Nicotine patch Raffy wants to get a Nicotine patch he wants to quit chewing. Thank Inge! documented in this encounter Plan of Treatment Upcoming Encounters Date Type Department Care Team (Late st Contact Info) Description 11/10/2023 8:30 AM EDT Infusion Hematology Oncology at [address] [phone] 11/30/2023 8:30 AM EDT Office Visit Hematology/Oncology at [address] [phone] Bisi Hollis SPECIAL AGENT [address] [place] [address] DR HEMATOLOGY AND ONCOLOGY [place], [place] [address] 11/30/2023 9:00 AM EDT Infusion Hematology Oncology at [address] [address] 12/07/2023 11:15 AM EDT Office Visit [place] [address] Daisy Lloyd PA [facility] [place] [address] documented as of this encounter Visit Diagnoses Not on filedocumented in this encounter Care Teams Melter Clerk Relationship Specialty Start Date End Date Nick Martinez MD [address] [place] [address] PCP - General Internal Medicine 07/01/18 documented as of this encounter
--- OUTSIDE RECORDS SUMMARY | 2023-10-27 15:24 | XMS_ITS | Encounter Summary ---
Author Organization [facility] [place] [address] Care Team Providers Care Clay Mixer Name Role Phone Nick Martinez MD Primary Care Provider [phone] Encounter Details Date Type Department Care Team (Late st Contact Info) Description 03/30/2021 Orders Only [place] [address] Parker Ross MD [facility] [place] [address] Social History Tobacco Use Types Packs/Day Years [...] AM EDT Infusion Hematology Oncology at [address] [phone] 11/30/2023 8:30 AM EDT Office Visit Hematology/Oncology at [address] [phone] Bisi Hollis APRN [address] [place] [address] DR HEMATOLOGY [place] [address] 11/30/2023 9:00 AM EDT Infusion Hematology Oncology at [address] [address] 12/07/2023 11:15 AM EDT Office Visit [place] [address] Daisy Lloyd PA [facility] DR HEMATOLOGY [place] [address] documented as of this encounter Visit Diagnoses Not on filedocumented in this encounter Care Teams Clay Mixer Relationship Specialty Start Date End Date Nick Martinez MD [address] [place] [address] PCP - General Internal Medicine 07/01/18 documented as of this encounter
--- OUTSIDE RECORDS SUMMARY | 2023-10-27 15:24 | XMS_ITS | Encounter Summary ---
Author Organization [facility] [place] [address] Care Team Providers Care Office Nurse Practitioner Name Role Phone Nick Martinez MD Primary Care Provider Encounter Details Date Type Department Care Team (Late st Contact Info) Description 03/11/2021 4:45 PM EST Office Visit Radiation Oncology at [address] [phone] Parker Ross MD [facility] [place] [address] Primary malignant neoplasm of right upper lobe [...] at this time ?? Alimentation: followed by fish stringer assembler, weight stable, all by mouth CTCAE v4.03 [...] Infusion Hematology Oncology at [address] [phone] 11/30/2023 8:30 AM EDT Office Visit Hematology/Oncology at [address] [phone] Bisi Hollis APRN [address] [place] [address] DR HEMATOLOGY AND ONCOLOGY [place], [place] [phone] 11/30/2023 9:00 AM EDT Infusion Hematology Oncology at [address] [phone] 12/07/2023 11:15 AM EDT Office [place] [address] Daisy Lloyd PA [facility] DR [place] [address] documented as of this encounter Visit Diagnoses Diagnosis Primary malignant neoplasm of right upper lobe of lung Malignant neoplasm of upper lobe, bronchus or lung documented in this encounter Care Teams Office Nurse Practitioner Relationship Specialty Start Date End Date Nick Martinez MD [address] [place] [address] PCP - General Internal Medicine 07/01/18 documented as of this encounter
--- OUTSIDE RECORDS SUMMARY | 2023-10-27 15:24 | XMS_ITS | Encounter Summary ---
Author Organization [facility] [address] Care Team Providers Care Regulatory Specialist Name Role Phone Nick Martinez MD Primary Care Provider [phone] Encounter Details Date Type Department Care Team (Late st Contact Info) Description 03/13/2021 Notes Only Radiation Oncology at [address] [phone] Katelyn Em, RN Social History [...] far he has eaten a meat ball instrument lens grinder that went down OK, but it [...] : 98.4F Intervention: Dr Ross informed via [employer] Messenger. He gave verbal order for BMX which was sent to [facility] pharmacy ( his works at [facility] and will pick it up tomorrow) I [...] AM EDT Infusion Hematology Oncology at [address] [phone] 11/30/2023 8:30 AM EDT Office Visit Hematology/Oncology at [address] [phone] Bisi Hollis APRN [address] [place] [address] DR HEMATOLOGY AND ONCOLOGY [place], [place] [address] 11/30/2023 9:00 AM EDT Infusion Hematology Oncology at [address] [phone] 12/07/2023 11:15 AM EDT Office [place] [address] Daisy Lloyd PA [facility] DR [place] [address] documented as of this encounter Visit Diagnoses Not on filedocumented in this encounter Care Teams Regulatory Specialist Relationship Specialty Start Date End Date Nick Martinez MD [address] [place] [address] PCP - General Internal Medicine 07/01/18 documented as of this encounter
--- OUTSIDE RECORDS SUMMARY | 2023-10-27 15:24 | XMS_ITS | Encounter Summary ---
Author Organization [facility] [place] [address] Care Team Providers Care Rotary Cutter Name Role Phone Nick Martinez MD Primary Care Provider [phone] Encounter Details Date Type Department Care Team (Late st Contact Info) Description 02/17/2021 Orders [place] [address] Parker Ross MD [facility] DR [place] [address] Social History Tobacco Use Types Packs/Day Years [...] AM EDT Infusion Hematology Oncology at [address] [phone] 11/30/2023 8:30 AM EDT Office Visit Hematology/Oncology at [address] [phone] Bisi Hollis APRN [address] [place] [address] DR [place] [address] 11/30/2023 9:00 AM EDT Infusion Hematology Oncology at [address] [phone] 12/07/2023 11:15 AM EDT Office Visit [place] [address] Daisy Lloyd PA [facility] DR HEMATOLOGY [place] [address] documented as of this encounter Visit Diagnoses Not on filedocumented in this encounter Care Teams Rotary Cutter Relationship Specialty Start Date End Date Nick Martinez MD [address] [place] [address] PCP - General Internal Medicine 07/01/18 documented as of this encounter
--- OUTSIDE RECORDS SUMMARY | 2023-10-27 15:24 | XMS_ITS | Encounter Summary ---
Author Organization [facility] [place] [address] Care Team Providers Care Dental Associate Name Role Phone Nick Martinez MD Primary Care Provider [phone] Reason for Visit * Consultation (Routine) - Closed Specialty Diagnoses / Procedures Referred By Mariana workman Referred To Contact Radiation Oncology Diagnoses Primary malignant neoplasm of right upper lobe of lung Procedures Simulation for Radiation Therapy Planning Parker Ross MD [facility] [place] [address] [facility] Rad Onc Office [address] [place] [phone] Referral ID Status Reason Start Date Expiration Date V isits Requested Visits Authorized [id number] Closed Consult, Test & Treat 02/06/2021 02/06/2022 31 31 Encounter Details Date Type Department Care Team (Late st Contact Info) Description 02/11/2021 4:00 PM EST Ancillary Appointment Radiation Oncology at [address] [phone] Parker Ross MD [facility] [place] [address] Social History Tobacco Use Types Packs/Day Years [...] to help manage the side effects. ?? Clinical Educator - They take the doctors radiation prescription [...] a well balanced diet is recommended. The spring assembler and nurse will inform you of any special diet requirements. Avoid shaving the treatment area with a razor. If you must shave use an electric razor. Our Contact numbers Section of Radiation Oncology Our normal business hours are: Tuesday - Tuesday: 8:00 AM to 5:00 PM [facility]: [facility]: If you have questions about your [...] injury ?? A Radiation Oncology doctor is chief of production after our normal hours and on weekends. ?? To call for urgent medical issues from radiation treatments that can not wait until normal business hours: ?? Call for either location and have the foil operator page the Radiation Oncologist chief of production. documented in this encounter Plan of Treatment Upcoming Encounters Date Type Department Care Team (Late st Contact Info) Description 11/10/2023 8:30 AM EDT Infusion Hematology Oncology at [address] [phone] 11/30/2023 8:30 AM EDT Office Visit Hematology/Oncology at [address] [phone] Bisi Hollis VACATION SALES ADVISOR [address] [place] [address] DR HEMATOLOGY AND ONCOLOGY [place], [place] [address] 11/30/2023 9:00 AM EDT Infusion Hematology Oncology at [address] [phone] 12/07/2023 11:15 AM EDT Office Visit [place] [address] Daisy Lloyd PA [facility] DR [place] [address] Scheduled Orders Name Type Priority Associated Diagnoses Orde r Schedule Simulation for Radiation Therapy Planning Procedures Routine Primary malignant neoplasm of right upper lobe of lung Ordered: 02/06/2021 documented as of this encounter Visit Diagnoses Not on filedocumented in this encounter Care Teams Dental Associate Relationship Specialty Start Date End Date Nick Martinez MD [address] [place] [address] PCP - General Internal Medicine 07/01/18 documented as of this encounter
--- OUTSIDE RECORDS SUMMARY | 2023-10-27 15:24 | XMS_ITS | Encounter Summary ---
Author Organization [facility] [place] [address] Care Team Providers Care Cycle Consultant Name Role Phone Nick Martinez MD Primary Care Provider [phone] Encounter Details Date Type Department Care Team (Late st Contact Info) Description 03/30/2021 Telephone Radiation Oncology at [address] [phone] Alyssa Brar, RN Social History [...] him know that refill BMX sent to [facility] pharmacy by Dr. Ross. Patient response-Thank [...] stool softeners/laxatives as needed. He plans to berry picker this afternoon. He questions if will need BMX/carafate while taking oxycodone. I instructed that ok to take together as needed to improve comfort level. He verbalized good understanding of this. Reports that he did berry picker the refill of BMX which is almost half gone so will need refills of this medication sent to [facility] pharmacy. I let him know that I will update his providers regarding need for refill BMX. documented in this encounter Plan of Treatment Upcoming Encounters Date Type Department Care Team (Late st Contact Info) Description 11/10/2023 8:30 AM EDT Infusion Hematology Oncology at [address] [phone] 11/30/2023 8:30 AM EDT Office Visit Hematology/Oncology at [address] [phone] Bisi Hollis APRN [address] [place] [address] DR HEMATOLOGY AND ONCOLOGY [place], [place] [address] 11/30/2023 9:00 AM EDT Infusion Hematology Oncology at [address] [phone] 12/07/2023 11:15 AM EDT Office Visit [place] [address] Daisy Lloyd PA [facility] DR [place] [address] documented as of this encounter Visit Diagnoses Not on filedocumented in this encounter Care Teams Cycle Consultant Relationship Specialty Start Date End Date Nick Martinez MD [address] [place] [address] PCP - General Internal Medicine 07/01/18 documented as of this encounter
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
--- OUTSIDE RECORDS SUMMARY | 2023-10-27 15:24 | XMS_ITS | Encounter Summary ---
Author Organization [facility] [place] [address] Care Team Providers Care Appeals Court Associate Justice Name Role Phone Nick Martinez MD Primary Care Provider [phone] Encounter Details Date Type Department Care Team (Late st Contact Info) Description 04/01/2021 3:30 PM EST Office Visit Radiation Oncology at [address] [phone] Parker Ross MD [facility] [place] [address] Primary malignant neoplasm of right upper lobe [...] at this time ?? Alimentation: followed by chip silo tender, weight loss , all by mouth ?? [...] AM EDT Infusion Hematology Oncology at [address] [phone] 11/30/2023 8:30 AM EDT Office Visit Hematology/Oncology at [address] [phone] Bisi Hollis APRN [address] [place] [address] DR [place]EMATOLOGY [place] [address] 11/30/2023 9:00 AM EDT Infusion Hematology Oncology at [address] [phone] 12/07/2023 11:15 AM EDT Office [place] [address] Daisy Lloyd PA [facility] DR [place] [address] documented as of this encounter Visit Diagnoses Diagnosis Primary malignant neoplasm of right upper lobe of lung Malignant neoplasm of upper lobe, bronchus or lung documented in this encounter Care Teams Appeals Court Associate Justice Relationship Specialty Start Date End Date Nick Martinez MD [address] [place] [address] PCP - General Internal Medicine 07/01/18 documented as of this encounter
--- OUTSIDE RECORDS SUMMARY | 2023-10-27 15:24 | XMS_ITS | Encounter Summary ---
Author Organization [facility] [place] [address] Care Team Providers Care Order Caller Name Role Phone Nick Martinez MD Primary Care Provider [phone] Reason for Visit * Reason Onset Date Comments Other 02/11/2021 brief assessment Encounter Details Date Type Department Care Team (Late st Contact Info) Description 02/11/2021 Telephone Radiation Oncology at [address] [phone] Azalea Watkins, GENERAL I FARMWORKER OFFICE OF CARE MANAGEMENT Other (brief assessment) [...] pt to introduce myself and role of clinical social work aide to assess/address barriers to getting to and through treatments; addresssupport needs and connect with community services and resources as needed. Family/Social Supports: Pt identified his as his primary support. Living Situation/Daily Activities/Transportation: Pt manages his daily chores and activities. He does not expect any issues with transportation. 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 He does not have any benefits through [...] is heating fuel. Discussed applying to the [facility] for assistance with this and [...] - heating fuel is primary concern Referrals: [facility] when pt brings in his heating fuel bill. Social Work Interventions: Brief assessment Supportive Counseling Financial resources Community Resource Plan: Informed pt of GENERAL I FARMWORKER availability and contact information. Will follow to assess/address psychosocial needs. ADD: 3:00 pm Met with while pt waiting for his sim. They are interested in applying for financial assistance from the [facility] for assistance with their heating fuel. They may also want to apply to the [facility] for help with funds toward a mortgage [...] assist with support and resources. HARSH Bello, REAMING PRESS OPERATOR, OSW-C Forensics Analyst [facility] documented in this encounter Plan of Treatment Upcoming Encounters Date Type Department Care Team (Late st Contact Info) Description 11/10/2023 8:30 AM EDT Infusion Hematology Oncology at [address] [phone] 11/30/2023 8:30 AM EDT Office Visit Hematology/Oncology at [address] [phone] Bisi Hollis APRN [address] [place] [address] [place] [address] 11/30/2023 9:00 AM EDT Infusion Hematology Oncology at [address] [phone] 12/07/2023 11:15 AM EDT Office [place] [phone] Daisy Lloyd PA [facility] DR [place] [address] documented as of this encounter Visit Diagnoses Not on filedocumented in this encounter Care Teams Order Caller Relationship Specialty Start Date End Date Nick Martinez MD [address] [place] [address] PCP - General Internal Medicine 07/01/18 documented as of this encounter
--- OUTSIDE RECORDS SUMMARY | 2023-10-27 15:24 | XMS_ITS | Encounter Summary ---
Author Organization [facility] [place] [address] Care Team Providers Care Head Mva Reactor Operator Name Role Phone Nick Martinez MD Primary Care Provider Encounter Details Date Type Department Care Team (Late st Contact Info) Description 03/04/2021 5:00 PM EST Office Visit Radiation Oncology at [address] [phone] Parker Ross MD [facility] [place] [address] Primary malignant neoplasm of right upper lobe [...] this time ?? Alimentation: followed by chief of internal medicine, weight stable, all by mouth CTCAE v4.03 [...] AM EDT Infusion Hematology Oncology at [address] [phone] 11/30/2023 8:30 AM EDT Office Visit Hematology/Oncology at [address] [phone] Bisi Hollis APRN [address] [place] [address] DR HEMATOLOGY AND ONCOLOGY [place], [place] [address] 11/30/2023 9:00 AM EDT Infusion Hematology Oncology at [address] [phone] 12/07/2023 11:15 AM EDT Office Visit [place] [address] Daisy Lloyd PA [facility] DR HEMATOLOGY [place] [address] documented as of this encounter Visit Diagnoses Diagnosis Primary malignant neoplasm of right upper lobe of lung Malignant neoplasm of upper lobe, bronchus or lung documented in this encounter Care Teams Head Mva Reactor Operator Relationship Specialty Start Date End Date Nick Martinez MD [address] [place] [address] PCP - General Internal Medicine 07/01/18 documented as of this encounter
--- OUTSIDE RECORDS SUMMARY | 2023-10-27 15:24 | XMS_ITS | Encounter Summary ---
Author Organization [facility] [place] [address] Care Team Providers Care Multi Media Specialist Name Role Phone Nick Martinez MD Primary Care Provider [phone] Encounter Details Date Type Department Care Team (Late st Contact Info) Description 03/04/2021 Notes Only Hematology/Oncology at [address] [phone] Azalea Watkins, DRY FOOD PRODUCTS MIXER OFFICE OF CARE MANAGEMENT Social History Tobacco [...] bill and completed an application to the [facility] requesting financial assistance with this. Application submitted per pt's request. Will notify pt re their decisionre assistance. Financial resources Community Resource documented in this encounter Plan of Treatment Upcoming Encounters Date Type Department Care Team (Late st Contact Info) Description 11/10/2023 8:30 AM EDT Infusion Hematology Oncology at [address] [phone] 11/30/2023 8:30 AM EDT Office Visit Hematology/Oncology at [address] [phone] Bisi Hollis APRN [address] [place] [address] DR [place] [address] 11/30/2023 9:00 AM EDT Infusion Hematology Oncology at [address] [phone] 12/07/2023 11:15 AM EDT Office Visit [place] [address] Daisy Lloyd PA [facility] DR [place] [address] documented as of this encounter Visit Diagnoses Not on filedocumented in this encounter Care Teams Multi Media Specialist Relationship Specialty Start Date End Date Nick Martinez MD [address] [place] [address] PCP - General Internal Medicine 07/01/18 documented as of this encounter
--- OUTSIDE RECORDS SUMMARY | 2023-10-27 15:24 | XMS_ITS | Encounter Summary ---
Author Organization [facility] [place] [address] Care Team Providers Care Business Reporter Name Role Phone Nick Martinez MD Primary Care Provider [phone] Encounter Details Date Type Department Care Team (Late st Contact Info) Description 03/17/2021 Notes Only Tobacco Treatment at [address] [phone] Janeth Chow Social History Tobacco [...] AM EDT Infusion Hematology Oncology at [address] [phone] 11/30/2023 8:30 AM EDT Office Visit Hematology/Oncology at [address] [phone] Bisi Hollis APRN [address] [place] [address] DR HEMATOLOGY [place] [address] 11/30/2023 9:00 AM EDT Infusion Hematology Oncology at [address] [phone] 12/07/2023 11:15 AM EDT Office [place] [address] Daisy Lloyd PA [facility] DR [place] [address] documented as of this encounter Visit Diagnoses Not on filedocumented in this encounter Care Teams Business Reporter Relationship Specialty Start Date End Date Nick Martinez MD [address] [place] [address] PCP - General Internal Medicine 07/01/18 documented as of this encounter
--- OUTSIDE RECORDS SUMMARY | 2023-10-27 15:24 | XMS_ITS | Encounter Summary ---
[place] [address] Care Team Providers Care Stereo Equipment Repairer Name Role Phone Nick Martinez MD Primary Care Provider Encounter Details Date Type Department Care Team (Late st Contact Info) Description 03/26/2021 12:05 AM EST Ancillary Procedure [place] [address] Nick Martinez MD [address] [place] [address] Social History Tobacco Use Types [...] AM EDT Infusion Hematology Oncology at [address] [phone] 11/30/2023 8:30 AM EDT Office Visit Hematology/Oncology at [address] [phone] Bisi Hollis APRN [address] [place] [address] DR [place] [address] 11/30/2023 9:00 AM EDT Infusion Hematology Oncology at [address] [phone] 12/07/2023 11:15 AM EDT Office Visit [place] [address] Daisy Lloyd PA [facility] HEMATOLOGY [place] [address] documented as of this encounter Procedures Procedure Name Priority Date/Time Associated Diagnosis Comments FILM LIBRARY STORAGE ONLY CT CHEST Routine 03/26/2021 12:05 AM EST documented in this encounter Results * Film Library- Storage Only CT Chest (03/26/2021 12:05 AM EST) Narrative [facility] - 04/10/2021 2:13 PM EST This exam is auto-finalizing. It's purpose is for storage only. Nick Martinez MD IMG FILM LIBRARY ORD ERABLES [place], [place] documented in this encounter Visit Diagnoses Not on filedocumented in this encounter Care Teams Stereo Equipment Repairer Relationship Specialty Start Date End Date Nick Martinez MD [address] [place] [address] PCP - General Internal Medicine 07/01/18 documented as of this encounter
--- OUTSIDE RECORDS SUMMARY | 2023-10-27 15:24 | XMS_ITS | Encounter Summary ---
Author Organization [facility] [place] [address] Care Team Providers Care Guest Services Attendant Name Role Phone Nick Martinez MD Primary Care Provider [phone] Encounter Details Date Type Department Care Team (Late st Contact Info) Description 04/02/2021 Orders Only [place] [address] Parker Ross MD [facility] [place] [address] Social History Tobacco Use Types Packs/Day Years [...] AM EDT Infusion Hematology Oncology at [address] [phone] 11/30/2023 8:30 AM EDT Office Visit Hematology/Oncology at [address] [phone] Bisi Hollis APRN [address] [place] [address] [place] [address] 11/30/2023 9:00 AM EDT Infusion Hematology Oncology at [address] [phone] 12/07/2023 11:15 AM EDT Office Visit [place] [address] Daisy Lloyd PA [facility] DR HEMATOLOGY [place] [address] documented as of this encounter Visit Diagnoses Not on filedocumented in this encounter Care Teams Guest Services Attendant Relationship Specialty Start Date End Date Nick Martinez MD [address] [place] [address] PCP - General Internal Medicine 07/01/18 documented as of this encounter
--- OUTSIDE RECORDS SUMMARY | 2023-10-27 15:24 | XMS_ITS | Encounter Summary ---
Author Organization [facility] [address] Care Team Providers Care Adult Nurse Practitioner Name Role Phone Nick Martinez MD Primary Care Provider [phone] Encounter Details Date Type Department Care Team (Late st Contact Info) Description 03/02/2021 Notes Only Hematology/Oncology at [address] [phone] Azalea Watkins, [employer] OFFICE OF CARE MANAGEMENT Social History Tobacco [...] of our discussions about applying to the [facility] for help with their heating fuel bill.Pt is expecting a delivery this week. Also discussed plan to apply to the [facility] for help with mortgage payment. Explained he would have to bring in a copy of the bills and proof of household income. Ptappeared to understand this. Will plan to follow up with pt re this as he brings in the inforamtion to make these application. Reminded pt of [employer] availability and contact inforamtion. Brief assessment Supportive Counseling Financial resources documented in this encounter Plan of Treatment Upcoming Encounters Date Type Department Care Team (Late st Contact Info) Description 11/10/2023 8:30 AM EDT Infusion Hematology Oncology at [address] [phone] 11/30/2023 8:30 AM EDT Office Visit Hematology/Oncology at [address] [phone] Bisi Hollis APRN [address] [place] [address] DR HEMATOLOGY AND ONCOLOGY [place], [place] [address] 11/30/2023 9:00 AM EDT Infusion Hematology Oncology at [address] [phone] 12/07/2023 11:15 AM EDT Office Visit [place] [address] Daisy Lloyd PA [facility] DR HEMATOLOGY [place] [address] documented as of this encounter Visit Diagnoses Not on filedocumented in this encounter Care Teams Adult Nurse Practitioner Relationship Specialty Start Date End Date Nick Martinez MD [address] [place] [address] PCP - General Internal Medicine 07/01/18 documented as of this encounter
--- OUTSIDE RECORDS SUMMARY | 2023-10-27 15:25 | XMS_ITS | Encounter Summary ---
Author Organization [facility] [place] [address] Care Team Providers Care Tactical Response Group Officer Name Role Phone Nick Martinez MD Primary Care Provider [phone] Reason for Visit * Reason Onset Date Comments Other 12/29/2020 chart review for Bronchoscopy Encounter Details Date Type Department Care Team (Late st Contact Info) Description 12/29/2020 Notes [place] [address] Lilly Isabel RN Other (chart [...] Lilly Isabel RN Department of Pulmonary 5C, [facility] / Pager: [phone] documented in this encounter Plan of Treatment Upcoming Encounters Date Type Department Care Team (Late st Contact Info) Description 11/10/2023 8:30 AM EDT Infusion Hematology Oncology at [address] [phone] 11/30/2023 8:30 AM EDT Office Visit Hematology/Oncology at [address] [phone] Bisi Hollis APRN [address] [place] [address] DR HEMATOLOGY AND ONCOLOGY [place], [place] [address] 11/30/2023 9:00 AM EDT Infusion Hematology Oncology at [address] [address] 12/07/2023 11:15 AM EDT Office Visit [place] [address] Daisy Lloyd PA [facility] DR HEMATOLOGY [place] [address] documented as of this encounter Visit Diagnoses Not on filedocumented in this encounter Care Teams Tactical Response Group Officer Relationship Specialty Start Date End Date Nick Martinez MD [address] [place] [address] PCP - General Internal Medicine 07/01/18 documented as of this encounter
--- OUTSIDE RECORDS SUMMARY | 2023-10-27 15:25 | XMS_ITS | Encounter Summary ---
Author Organization [facility] [place] [address] Care Team Providers Care Combination Window Installer Name Role Phone Unavailable Primary Care Provider Unavailabl e Encounter Details Date Type Department Care Team (Late Contact Info) Description 05/26/2018 Ancillary Procedure [place] [address] Nick Martinez MD [address] [place], [place] [id number] Social History Tobacco Use Types Packs/Day Years Used Date Smoking Tobacco: Never Assessed Sex and Gender Information Value Date Recorded Sex Assigned at Not on file Gender Identity Not on file Sexual Orientation Not on file documented as of this encounter Plan of Treatment Upcoming Encounters Date Type Department Care Team (Late Contact Info) Description 11/10/2023 8:30 AM EDT Infusion Hematology Oncology at [address] [phone] 11/30/2023 8:30 AM EDT Office Visit Hematology/Oncology at [address] [phone] Bisi Hollis APRN [address] [place] [address] DR HEMATOLOGY AND ONCOLOGY [place], [place] [phone] 11/30/2023 9:00 AM EDT Infusion Hematology Oncology at [address] [address] 12/07/2023 11:15 AM EDT Office Visit [place] [address] Daisy Lloyd PA [facility] DR HEMATOLOGY [place] [address] documented as of this encounter Procedures Procedure Name Priority Date/Time Associated Diagnosis Comments FILM LIBRARY STORAGE ONLY CT CHEST Routine 05/26/2018 12:00 AM EDT documented in this encounter Results * Film Library- Storage Only CT Chest (05/26/2018 12:00 AM EDT) Narrative [facility] - 11/27/2020 4:03 PM EDT This exam is auto-finalizing. It's purpose is for storage only. Nick Martinez MD IMG FILM LIBRARY ORD ERABLES [place], [place] documented in this encounter Visit Diagnoses Not on filedocumented in this encounter
--- OUTSIDE RECORDS SUMMARY | 2023-10-27 15:25 | XMS_ITS | Encounter Summary ---
[place] [address] Care Team Providers Care Alley Worker Name Role Phone Nick Martinez MD Primary Care Provider [phone] Encounter Details Date Type Department Care Team (Late st Contact Info) Description 12/25/2020 Telephone [place] [address] Marjorie Johnston Social History Tobacco [...] slept in a intermediate (including now)? No 12/22/2020 Sex and Gender Information Value Date Recorded Sex Assigned at Not on file Gender Identity Not on file Sexual Orientation Not on file documented as of this encounter Plan of Treatment Upcoming Encounters Date Type Department Care Team (Late st Contact Info) Description 11/10/2023 8:30 AM EDT Infusion Hematology Oncology at [address] [phone] 11/30/2023 8:30 AM EDT Office Visit Hematology/Oncology at [address] [phone] Bisi Hollsi [employer] OFFICER [address] [place] [address] DR HEMATOLOGY AND ONCOLOGY [place], [place] [address] 11/30/2023 9:00 AM EDT Infusion Hematology Oncology at [address] [phone] 12/07/2023 11:15 AM EDT Office Visit [place] [address] Daisy Lloyd PA [facility] DR HEMATOLOGY [place] [address] documented as of this encounter Visit Diagnoses Not on filedocumented in this encounter Care Teams Alley Worker Relationship Specialty Start Date End Date Nick Martinez MD [address] [place] [address] PCP - General Internal Medicine 07/01/18 documented as of this encounter
--- OUTSIDE RECORDS SUMMARY | 2023-10-27 15:25 | XMS_ITS | Encounter Summary ---
Author Organization [facility] [place] [address] Care Team Providers Care Crib Clerk Name Role Phone Nick Martinez MD Primary Care Provider [phone] Reason for Visit * Reason Onset Date Comments Other 01/19/2021 cancel TS appoin tment Encounter Details Date Type Department Care Team (Late st Contact Info) Description 01/19/2021 Telephone [place] [address] Jewels Davis, RN Other (cancel [...] AM EDT Infusion Hematology Oncology at [address] [phone] 11/30/2023 8:30 AM EDT Office Visit Hematology/Oncology at [address] [phone] Bisi Hollis APRN [address] [place] [address] DR HEMATOLOGY [place] [address] 11/30/2023 9:00 AM EDT Infusion Hematology Oncology at [address] [phone] 12/07/2023 11:15 AM EDT Office Visit [place] [address] Daisy Lloyd PA [facility] [place] [address] documented as of this encounter Visit Diagnoses Not on filedocumented in this encounter Care Teams Crib Clerk Relationship Specialty Start Date End Date Nick Martinez MD [address] [place] [address] PCP - General Internal Medicine 07/01/18 documented as of this encounter
--- OUTSIDE RECORDS SUMMARY | 2023-10-27 15:25 | XMS_ITS | Referral Summary ---
Author Organization [facility] Address [address] [place] [address] Care Team Providers Care Stencil Cutter Machine Name Role Phone Unavailable Primary Care Provider Unavailabl e Social History Tobacco Use Types Packs/Day Years Used Date Smoking Tobacco: Never Assessed Sex and Gender Information Value Date Recorded Sex Assigned at Not on file Gender Identity Not on file Sexual Orientation Not on file Plan of Treatment Not on file
--- OUTSIDE RECORDS SUMMARY | 2023-10-27 15:25 | XMS_ITS | Encounter Summary ---
Author Organization [facility] [place] [address] Care Team Providers Care Extension Clerk Name Role Phone Nick Martinez MD Primary Care Provider [phone] Encounter Details Date Type Department Care Team (Late st Contact Info) Description 01/06/2021 Orders Only Hematology/Oncology at [address] [phone] Linda Zepeda, RN Primary malignant [...] [place] [facility] No 12/22/2020 Sex and Gender Information Value Date Recorded Sex Assigned at Not on file Gender Identity Not on file Sexual Orientation Not on file documented as of this encounter Plan of Treatment Upcoming Encounters Date Type Department Care Team (Late st Contact Info) Description 11/10/2023 8:30 AM EDT Infusion Hematology Oncology at [address] [phone] 11/30/2023 8:30 AM EDT Office Visit Hematology/Oncology at [address] [phone] Bisi Hollis [address] HEMATOLOGY AND ONCOLOGY [place], [place] [phone] 11/30/2023 9:00 AM EDT Infusion Hematology Oncology at [address] [phone] 12/07/2023 11:15 AM EDT Office Visit [place] [address] Daisy Lloyd PA [facility] DR HEMAT[place]Y [place] [address] documented as of this encounter Visit Diagnoses Diagnosis Primary malignant neoplasm of right upper lobe of lung Malignant neoplasm of upper lobe, bronchus or lung documented in this encounter Care Teams Extension Clerk Relationship Specialty Start Date End Date Nick Martinez MD [address] [place] [address] PCP - General Internal Medicine 07/01/18 documented as of this encounter
--- OUTSIDE RECORDS SUMMARY | 2023-10-27 15:25 | XMS_ITS | Encounter Summary ---
[place] [address] Care Team Providers Care Timber Watchman Name Role Phone Nick Martinez MD Primary Care Provider Encounter Details Date Type Department Care Team (Late Contact Info) Description 11/28/2020 Telephone [place] [phone] Lynette Lazar Social History Tobacco Use Types [...] AM EDT Infusion Hematology Oncology at [address] [phone] 11/30/2023 8:30 AM EDT Office Visit Hematology/Oncology at [address] [phone] Bisi Hollis APRN [address] [place] [address] HEMATOLOGY AND ONCOLOGY [place], [place] [phone] 11/30/2023 9:00 AM EDT Infusion Hematology Oncology at [address] [address] 12/07/2023 11:15 AM EDT Office [place] [address] Daisy Lloyd PA [facility] DR [place] [address] documented as of this encounter Visit Diagnoses Not on filedocumented in this encounter Care Teams Timber Watchman Relationship Specialty Start Date End Date Nick Martinez MD [address] [place] [address] PCP - General Internal Medicine 07/01/18 documented as of this encounter
--- OUTSIDE RECORDS SUMMARY | 2023-10-27 15:25 | XMS_ITS | Encounter Summary ---
[place] [address] Care Team Providers Care Front Office Developer Name Role Phone Nick Martinez MD Primary Care Provider Reason for Referral * Diagnostic Test (Routine) - Closed Specialty Diagnoses / Procedures Referred By Contac t Referred To Contact Radiology Diagnoses Nodule of middle lobe of right lung Procedures CT Guided Biopsy Lung Chong Montano MD [address] [place] [address] [facility] [place] [address] Referral ID Status Reason Start Date Expiration Date V isits Requested Visits Authorized [id number] Closed Specialty Service Requested 12/01/2020 03/06/2021 1 1 Reason for Visit * Diagnostic Test (Routine) - Closed Specialty Diagnoses / Procedures Referred By Contac t Referred To Contact Radiology Diagnoses Nodule of middle lobe of right lung Procedures CT Guided Biopsy Lung Chong Montano MD [address] [place] [address] [facility] [place] [address] Referral ID Status Reason Start Date Expiration Date V isits Requested Visits Authorized [id number] Closed Specialty Service Requested 12/01/2020 03/06/2021 1 1 Encounter Details Date Type Department Care Team (Latest Contact Info) Description 12/01/2020 9:46 AM EDT - 12/01/2020 11:54 AM EDT Hospital Encounter CT Scan at [facility] [place] [address] Chong Montano MD [address] [place] [address] Nodule of middle lobe of right lung [...] Hopkins RN - 12/01/2020 11:34 AM EDT [facility] Vascular and Interventional Radiology Biopsy Discharge [...] be reported to you by your primary wild animal caretaker or the clinician who ordered the biopsy. [...] is during regular office hours, please call [phone]. If it is after regular office hours, or on weekends or holidays, please call [phone] and ask to speak to the Principal Technical Specialist pediatric oncology nurse for Interventional Radiology. You have received medication [...] of : 1960 AGE: 60 y.o. Address: [address] [place] [address] (home) Mobile: Telephone Information: Referring Provider: Chong Montano REASON FOR VISIT: Order Questions Answers Where will study be performed? [facility] Radiology [120] Laterality Right Is the patient [...] AM EDT Infusion Hematology Oncology at [address] [phone] 11/30/2023 8:30 AM EDT Office Visit Hematology/Oncology at [address] [phone] Bisi Hollis APRN [address] [place] [address] [place] [address] 11/30/2023 9:00 AM EDT Infusion Hematology Oncology at [address] [phone] 12/07/2023 11:15 AM EDT Office Visit [place] [address] Daisy Lloyd PA [facility] DR [place] [address] documented as of this encounter Procedures Procedure [...] questions please contact the health child care center administrator that requested your imaging first. ? Narrative [...] have questions please contactthe health child care center administrator that requested your imaging first. Jarad Parada DO IMG DX ORDERABLES * XR Chest [...] questions please contact the health child care center administrator that requested your imaging first. ? Narrative [...] have questions please contactthe health child care center administrator that requested your imaging first. Jarad Parada DO IMG DX ORDERABLES * [...] for interval enlargement of trace post-procedure pneumothorax. Emergency Medicine Specialist(s): Resident/Fellow: ??Quintin Burnette MD Attending: Jarad Parada MD I, Dr. Parada, was present throughout the procedure. I was present during the intraservice time as documented by the IR Nurse. ?? Chong Montano MD IMG CT ORDERABLES * Surgical Pathology Report (12/01/2020 11:45 AM EDT) Final Diagnosis [id number] ? Location: [facility] The signing pathologist has (i) examined the relevant preparation(s) for the specimen(s) and (ii) rendered or confirmed the diagnosis(es). . ?Surgical Pathology DIAGNOSIS A - Lung, right, core biopsy: ??- Invasive adenocarcinoma, acinar predominant. Electronically signed by: ?Gladis Garcia MD Verified: ??12/03/2020 16:51 ??Pathologist Performed at: ??-[facility] Dept. of Pathology, [place], [place] DISCUSSION The biopsy demonstrates a few [...] labeled A1. ??sns 12/03/2020 4:51 PM EDT [facility] LUNG STRUCTURE / Unknown 12/01/2020 11:45 AM EDT 12/01/2020 11:45 AM EDT Chong Montano MD PATHOLOGY/CYTOLOGY O NAT Performing Organization Address [facility]/ZIP Co de Phone Number [facility] [place] [address] * Specimen to Pathology (12/01/2020 10:57 AM EDT) AP Specimen 12/01/2020 10:5 7 AM EDT 12/01/2020 10:57 AM EDT Narrative [facility] - 12/01/2020 10:57 AM EDT Specimen requisition ordered. ??Separate Pathology report to follow Chong Montano MD PATHOLOGY/CYTOLOGY O NAT Performing Organization Address [facility] [place] [address] documented in this encounter Visit Diagnoses Diagnosis Nodule of middle lobe of right lung documented in this encounter Administered Medications [...] mL/hr documented in this encounter Care Teams Front Office Developer Relationship Specialty Start Date End Date Nick Martinez MD [address] [place] [address] PCP - General Internal Medicine 07/01/18 documented as of this encounter
--- OUTSIDE RECORDS SUMMARY | 2023-10-27 15:25 | XMS_ITS | Encounter Summary ---
Author Organization [facility] [place] [address] Care Team Providers Care Route Service Representative Name Role Phone Nick Martinez MD Primary Care Provider [phone] Reason for Visit * Auth/Cert Specialty Diagnoses / Procedures Referred By Mariana workman Referred To Contact Diagnoses Lung cancer/ Bronchoscopy with EBUS/ GA/ Backer Procedures PRO [facility] EBUS GUIDED SAMPL 1/2 NODE STATION/STRUX BRONCH, W ENDOBRONCHIAL ULTRASOUND (EBUS) GUIDED SAMPLING, 1/2 NODES (WRVU 4.71) Referral ID Status Reason Start Date Expiration Date Visits Re quested Visits Authorized [id number] 1 1 Encounter Details Date Type Department Care Team (Late st Contact Info) Description 12/31/2020 3:25 PM EDT - 12/31/2020 5:45 PM EDT Surgery [place] [phone] BackerRoman MD [facility] [address] BRONCH, W ENDOBRONCHIAL ULTRASOUND (EBUS) GUIDED SAMPLING, [...] our office at . There is someone stone gang sawyer to speak with 27/09. Roman Teran MD, [...] Section of Pulmonary & Critical Care Pager: [phone] documented in this encounter Miscellaneous Notes * [...] (4 lymph node stations): The Olympus EBUS ([id number]) scope was inserted, lymph node inspection undertaken [...] station 12R was not identified. Therapeutic Suctioning (70205): At least 15-20 min of operative time [...] Section of Pulmonary & Critical Care Pager: [phone] documented in this encounter Plan of Treatment Upcoming Encounters Date Type Department Care Team (Late st Contact Info) Description 11/10/2023 8:30 AM EDT Infusion Hematology Oncology at [address] [address] 11/30/2023 8:30 AM EDT Office Visit Hematology/Oncology at [address] [phone] Bisi Hollis APRN [address] [place] [address] [place] [address] 11/30/2023 9:00 AM EDT Infusion Hematology Oncology at [address] [phone] 12/07/2023 11:15 AM EDT Office Visit [place] [address] Daisy Lloyd PA [facility] DR [place] [address] documented as of this encounter Procedures Procedure Name Priority Date/Time Associated Diagnosis Comments SOLID TUMOR NGS PANEL Routine 12/31/2020 4:28 PM EDT NON-AIR TRAFFIC SUPERVISOR FINAL REPORT Routine 12/31/2020 4:28 PM EDT CYTOPATHOLOGY NON-GYNECOLOGICAL Routine 12/31/2020 4:28 PM EDT NON-AIR TRAFFIC SUPERVISOR FINAL REPORT Routine 12/31/2020 4:18 PM EDT CYTOPATHOLOGY NON-GYNECOLOGICAL Routine 12/31/2020 4:18 PM EDT NON-AIR TRAFFIC SUPERVISOR FINAL REPORT Routine 12/31/2020 4:09 PM EDT CYTOPATHOLOGY NON-GYNECOLOGICAL Routine 12/31/2020 4:09 PM EDT NON-AIR TRAFFIC SUPERVISOR FINAL REPORT Routine 12/31/2020 3:58 PM EDT CYTOPATHOLOGY NON-GYNECOLOGICAL Routine 12/31/2020 3:58 PM EDT [facility] Ebus Guided Sampl 3/> Node Station/Strux ([id number]) Yes 12/31/2020 3:32 PM EDT Malignant neoplasm of lung, unspecified laterality, unspecified part of lung documented in this encounter Results * Non-Blanket Washer Final Report (12/31/2020 4:28 PM EDT) Diagnosis Discussion [id number] ? Location: [facility]; [facility]; The signing pathologist has (i) examined [...] The assay was performed according to the supervisor pipe finishing's instructions using Anti-PD-L1 (22C3, pharmDX) antibody. Electronically signed by: ?Aparna Varela DO Verified: ??01/06/2021 15:59 ??Pathologist Performed at: ??-[facility] Dept. of Pathology, [place], [place] ? Non-Blanket Washer Final DIAGNOSIS Positive for Malignancy Electronically signed by: ?Garcia VENTURA, Bradley Laird Verified: ??01/05/2021 12:33 ??Cytopathologist Performed at: ??-[facility] Dept. of Pathology, [place], [place] DISCUSSION Lymph node: 11R (EBUS-guided FNA) [...] Cell Block 1. 01/06/2021 3:59 PM EDT [facility] LYMPH NODE SPECIMEN / Unknown 12/31/2020 4:28 PM EDT 12/31/2020 4:28 PM EDT Roman Teran MD PATHOLOGY/CYTOLOGY O NAT Performing Organization Address [facility] Co de Phone Number [facility] [place] [address] * Solid Tumor NGS Panel (12/31/2020 4:28 PM EDT) Tissue 12/31/2020 4:28 PM EDT 01/06/2021 7:06 AM EDT Narrative Resulting Agency Comment Spec In Lab Roman Teran MD PATHOLOGY/CYTOLOGY O NAT Performing Organization Address [facility] Co de Phone Number [facility] [place] [address] * Cytopathology Non-Gynecological (12/31/2020 4:28 PM EDT) AP Specimen 12/31/2020 4:28 PM EDT 12/31/2020 4:28 PM EDT Narrative [facility] - 12/31/2020 4:28 PM EDT Specimen requisition ordered. ??Separate Pathology report to follow Roman Teran MD PATHOLOGY/CYTOLOGY O RDERABLES [facility] [place] [address] * Non-Blanket Washer Final Report (12/31/2020 4:18 PM EDT) Diagnosis Discussion [id number] ? Location: [facility]; [facility]; The signing pathologist has (i) examined the relevant preparation(s) for the specimen(s) and (ii) rendered or confirmed the diagnosis(es). . ? Non-Blanket Washer Final DIAGNOSIS Suspicious for Malignancy Electronically signed by: ?Mckinley VENTURA, Nabil Verified: ??01/05/2021 17:21 ??Pathologist Performed at: ??-[facility] Dept. of Pathology, [place], [place] DISCUSSION Lymph node, 4R (EBUS-guided FNA): [...] Cell Block 1. 01/05/2021 5:21 PM EDT [facility] LYMPH NODE SPECIMEN / Unknown 12/31/2020 4:18 PM EDT 12/31/2020 4:18 PM EDT Roman Teran MD PATHOLOGY/CYTOLOGY O NAT Performing Organization Address [facility] Co de Phone Number [facility] [place] [address] * Cytopathology Non-Gynecological (12/31/2020 4:18 PM EDT) AP Specimen 12/31/2020 4:18 PM EDT 12/31/2020 4:18 PM EDT Narrative [facility] - 12/31/2020 4:18 PM EDT Specimen requisition ordered. ??Separate Pathology report to follow Roman Teran MD PATHOLOGY/CYTOLOGY O NAT Performing Organization Address [facility] [place] [address] * Non-Blanket Washer Final Report (12/31/2020 4:09 PM EDT) Diagnosis Discussion [id number] ? Location: [facility]; [facility]; A The signing pathologist has (i) examined the relevant preparation(s) for the specimen(s) and (ii) rendered or confirmed the diagnosis(es). . ? Non-Blanket Washer Final DIAGNOSIS Positive for Malignancy Electronically signed by: ?Garcia VENTURA, Bradley Laird Verified: ??01/05/2021 12:17 ??Cytopathologis t Performed at: ??-[facility] Dept. of Pathology, [place], [place] DISCUSSION Lymph node: station 7 (EBUS-guided FNA) - A rare cluster of highly atypical epithelial cells, compatible with a non-small cell carcinoma, present. See also the concurrent 11R lymph node FNA, [id number]. Dr. Neville concurs with the diagnosis. (Cell [...] Cell Block 1. 01/05/2021 12:17 PM EDT [facility] LYMPH NODE SPECIMEN / Unknown 12/31/2020 4:09 PM EDT 12/31/2020 4:09 PM EDT Roman Teran MD PATHOLOGY/CYTOLOGY O NAT Performing Organization Address City/[facility]/ZIP Co de Phone Number [facility] [place] [address] * Cytopathology Non-Gynecological (12/31/2020 4:09 PM EDT) AP Specimen 12/31/2020 4:09 PM EDT 12/31/2020 4:09 PM EDT Narrative [facility] - 12/31/2020 4:09 PM EDT Specimen requisition ordered. ??Separate Pathology report to follow Roman Teran MD PATHOLOGY/CYTOLOGY O NAT Performing Organization Address City/[facility]/ZIP Co de Phone Number [facility] [place] [address] * Non-Blanket Washer Final Report (12/31/2020 3:58 PM EDT) Diagnosis Discussion [id number] ? Location: [facility]; [facility]; A The signing pathologist has (i) examined the relevant preparation(s) for the specimen(s) and (ii) rendered or confirmed the diagnosis(es). . ? Non-Blanket Washer Final DIAGNOSIS Positive for Malignancy Electronically signed by: ?Garcia VENTURA, Bradley Laird Verified: ??01/05/2021 12:12 ??Cytopathologis t Performed at: ??-[facility] Dept. of Pathology, [place], [place] DISCUSSION Lymph node: 4L (EBUS-guided FNA) - A few clusters of highly atypical epithelial cells, compatible with a non-small cell carcinoma, present. See also the concurrent 11R lymph node FNA, [id number]. Dr. Neville concurs with the diagnosis. (Cell [...] Cell Block 1. 01/05/2021 12:12 PM EDT [facility] LYMPH NODE SPECIMEN / Unknown 12/31/2020 3:58 PM EDT 12/31/2020 3:58 PM EDT Roman Teran MD PATHOLOGY/CYTOLOGY O RDERABLES [facility] [place] [address] * Cytopathology Non-Gynecological (12/31/2020 3:58 PM EDT) AP Specimen 12/31/2020 3:58 PM EDT 12/31/2020 3:58 PM EDT Narrative [facility] - 12/31/2020 3:58 PM EDT Specimen requisition ordered. ??Separate Pathology report to follow Roman Teran MD PATHOLOGY/CYTOLOGY O RDERABLES [facility] [place] [address] documented in this encounter Visit Diagnoses Diagnosis Malignant neoplasm of lung, unspecified laterality, unspecified part of lung documented in this encounter Administered Medications [...] RN) documented in this encounter Care Teams Route Service Representative Relationship Specialty Start Date End Date Nick Martinez MD [address] [place] [address] PCP - General Internal Medicine 07/01/18 documented as of this encounter
--- OUTSIDE RECORDS SUMMARY | 2023-10-27 15:25 | XMS_ITS | Encounter Summary ---
Author Organization [facility] Address [facility] [place] [address] Care Team Providers Care Executive Admin Name Role Phone Nick Martinez MD Primary Care Provider [phone] Encounter Details Date Type Department Care Team (Late st Contact Info) Description 01/01/2021 Orders [place] [address] Roman Teran MD [facility] [place] [address] Social History Tobacco Use Types Packs/Day Years [...] slept in a retirement (including now)? No 12/22/2020 Sex and Gender Information Value Date Recorded Sex Assigned at Not on file Gender Identity Not on file Sexual Orientation Not on file documented as of this encounter Plan of Treatment Upcoming Encounters Date Type Department Care Team (Late st Contact Info) Description 11/10/2023 8:30 AM EDT Infusion Hematology Oncology at [address] [phone] 11/30/2023 8:30 AM EDT Office Visit Hematology/Oncology at [address] [phone] Bisi Hollis AUTOMATION CONSULTANT [address] [place] [address] DR [place]Y [place] [address] 11/30/2023 9:00 AM EDT Infusion Hematology Oncology at [address] [phone] 12/07/2023 11:15 AM EDT Office Visit [place] [address] Daisy Lloyd PA [facility] DR HEMATOLOGY [place] [address] documented as of this encounter Visit Diagnoses Not on filedocumented in this encounter Care Teams Executive Admin Relationship Specialty Start Date End Date Nick Martinez MD [address] [place] [address] PCP - General Internal Medicine 07/01/18 documented as of this encounter
--- OUTSIDE RECORDS SUMMARY | 2023-10-27 15:25 | XMS_ITS | Clinical Summary ---
Author Organization [facility] Address [address] [place] [address] Care Team Providers Care Kersey Department Supervisor Name Role Phone Unavailable Primary Care Provider [...] - 1-dose 60+ series) 2018 COVID-19 Vaccine ( season) 2022
--- OUTSIDE RECORDS SUMMARY | 2023-10-27 15:25 | XMS_ITS | Encounter Summary ---
Author Organization [facility] [place] [address] Care Team Providers Care Elevator Runner Name Role Phone Nick Martinez MD Primary Care Provider Reason for Visit * Diagnostic Test (Routine) - Closed Specialty Diagnoses / Procedures Referred By Mariana workman Referred To Contact Radiology Diagnoses Primary malignant neoplasm of right upper lobe of lung Procedures NM PET CT Skull Base to Mid-thigh Boy Tovar MD [facility] DR [place] [address] [place] [address] Referral ID Status Reason Start Date Expiration Date V isits Requested Visits Authorized [id number] Closed Specialty Service Requested 12/23/2020 06/23/2022 1 1 Encounter Details Date Type Department Care Team (Late st Contact Info) Description 01/07/2021 6:10 AM EDT - 01/07/2021 11:59 PM EDT Hospital Encounter [place] [address] Boy Tovar MD [facility] DR [place]Y [place] [address] Discharge Disposition: Home Social History [...] in a senior living (including now)? No 12/22/2020 Sex and Gender [...] AM EDT Infusion Hematology Oncology at [address] [phone] 11/30/2023 8:30 AM EDT Office Visit Hematology/Oncology at [address] [phone] Bisi Hollis APRN [address] [place] [address] DR HEMATOLOGY AND ONCOLOGY [place], [place] [phone] 11/30/2023 9:00 AM EDT Infusion Hematology Oncology at [address] [phone] 12/07/2023 11:15 AM EDT Office [place] [address] Daisy Lloyd PA [facility] DR HEM[place]Y [place] [address] documented as of this encounter Procedures Procedure Name Priority Date/Time Associated Diagnosis Comments NM PET CT SKULL BASE TO MID-THIGH ([facility]) Routine 01/07/2021 8:07 AM EDT Primary malignant neoplasm of right upper lobe of lung POCT GLUCOSE Routine 01/07/2021 6:48 AM EDT documented in this encounter Results * POCT Glucose (01/07/2021 6:48 AM EDT) Glucose, POC 107 65 - 199 mg/dL [facility] Comment: Supplemental ranges: <140 mg/dL before meals <180 mg/dL all other times of the day Blood 01/07/2021 6:48 AM EDT 01/07/2021 6:48 AM EDT Boy Tovar MD POINT OF CARE TEST O RDERABLES [facility] [place] [address] documented in this encounter Visit Diagnoses Not on filedocumented in this encounter Care Teams Elevator Runner Relationship Specialty Start Date End Date Nick Martinez MD [address] [place] [address] PCP - General Internal Medicine 07/01/18 documented as of this encounter
--- OUTSIDE RECORDS SUMMARY | 2023-10-27 15:25 | XMS_ITS | Encounter Summary ---
Author Organization [facility] [place] [address] Care Team Providers Care Voip Network Engineer Name Role Phone Nick Martinez MD Primary Care Provider [phone] Encounter Details Date Type Department Care Team (Latest Contact Info) Description 12/01/2020 11:55 AM EDT - 12/01/2020 1:49 PM EDT Hospital Encounter XRay at [address] [place] [address] Jarad Parada, [facility] [place] [address] Discharge Disposition: Home Social History Tobacco Use [...] AM EDT Infusion Hematology Oncology at [address] [phone] 11/30/2023 8:30 AM EDT Office Visit Hematology/Oncology at [address] [phone] Bisi Hollis APRN [address] [place] [address] DR [place]Y [place] [address] 11/30/2023 9:00 AM EDT Infusion Hematology Oncology at [address] [phone] 12/07/2023 11:15 AM EDT Office [place] [address] Daisy Lloyd PA [facility] DR [place] [address] documented as of this encounter Procedures Procedure [...] who have questions please contact the health direct care supervisor that requested your imaging first. ? Narrative [...] patients who have questions please contactthe health direct care supervisor that requested your imaging first. Jarad GARSIAG DX ORDERABLES documented in this encounter Visit Diagnoses Not on filedocumented in this encounter Care Teams Voip Network Engineer Relationship Specialty Start Date End Date Nick Martinez MD [address] [place] [address] PCP - General Internal Medicine 07/01/18 documented as of this encounter
--- OUTSIDE RECORDS SUMMARY | 2023-10-27 15:25 | XMS_ITS | Encounter Summary ---
Author Organization [facility] [place] [address] Care Team Providers Care Playground Official Name Role Phone Nick Martinez MD Primary Care Provider Encounter Details Date Type Department Care Team (Late st Contact Info) Description 01/19/2021 Orders Only Hematology/Oncology at [address] [phone] Boy Tovar MD [facility] DR HEMATOLOGY [place] [address] Primary malignant neoplasm of right upper lobe [...] AM EDT Infusion Hematology Oncology at [address] [phone] 11/30/2023 8:30 AM EDT Office Visit Hematology/Oncology at [address] [phone] Bisi Hollis [address] [place] [address] 11/30/2023 9:00 AM EDT Infusion Hematology Oncology at [address] [phone] 12/07/2023 11:15 AM EDT Office Visit [place] [address] Daisy Lloyd PA [facility] DR HEMATOLOGY [place] [address] documented as of this encounter Visit Diagnoses Diagnosis Primary malignant neoplasm of right upper lobe of lung Malignant neoplasm of upper lobe, bronchus or lung Claustrophobia Other isolated or specific phobias documented in this encounter Care Teams Playground Official Relationship Specialty Start Date End Date Nick Martinez MD [address] [place] [address] PCP - General Internal Medicine 07/01/18 documented as of this encounter
--- OUTSIDE RECORDS SUMMARY | 2023-10-27 15:25 | XMS_ITS | Encounter Summary ---
Author Organization [facility] [place] [address] Care Team Providers Care Sales Development Executive Name Role Phone Nick Martinez MD Primary Care Provider Reason for Referral * Consultation (Routine) - Closed Specialty Diagnoses / Procedures Referred By Mariana workman Referred To Contact Radiation Oncology Diagnoses Primary malignant neoplasm of right upper lobe of lung Procedures Simulation for Radiation Therapy Planning Parker Ross MD [facility] [place] [address] [facility] Rad Onc Office [address] [place] [phone] Referral ID Status Reason Start Date Expiration Date V isits Requested Visits Authorized [id number] Closed Consult, Test & Treat 02/06/2021 02/06/2022 31 31 Reason for Visit * Consultation (Routine) - Closed Specialty Diagnoses / Procedures Referred By Mariana workman Referred To Contact Radiation Oncology Diagnoses Primary malignant neoplasm of right upper lobe of lung Boy Tovar MD [facility] [place] [address] [facility] Rad Onc Treatment [address] [place] [phone] Referral ID Status Reason Start Date Expiration Date V isits Requested Visits Authorized [id number] Closed Consult, Test & Treat 01/08/2021 01/08/2022 1 1 Encounter Details Date Type Department Care Team (Late st Contact Info) Description 02/04/2021 11:00 AM EST Office Visit Radiation Oncology at [address] [phone] Parker Ross MD [facility] [place] [address] Primary malignant neoplasm of right upper lobe [...] very claustrophobic, does not like needles. Referrals/Interventions: ELECTRICIAN CHIEF RADIATION SPECIFIC TEACHING: [facility] Radiation Therapy and [...] in the section of Radiation Oncology at [facility] regarding his lung cancer ONCOLOGIC HISTORY [...] Station 4L with 4 passes obtained with JERLIYN absent. 2) Station 7 with 5 passes [...] Denies Social Issues Travels 20 minutes to [employer] Tobacco Not currently smoking. Quit smoking ~ [...] Guided Biopsy Lung 12/01/2020 Jarad Parada, DO [facility] RAD CAT SCAN ? ? [facility] EBUS GUIDED SAMPL 3/> NODE STATION/STRUX N/A 12/31/2020 BRONCH, W ENDOBRONCHIAL ULTRASOUND (EBUS) GUIDED SAMPLING, 3+ NODES (WRVU 5.21) performed by Roman Teran MD at [facility] MAIN OR Social History Socioeconomic History ??? Marital status: Spouse name: Not on file ??? Number of children: Not on file ??? Years of education: Not on file ??? Highest education level: Not on file Occupational History ??? 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 Smoking status: Former Smoker [...] sequelae (fatigue, esophagitis, skin erythema, cough) and assistant terminal manager sequelae (radiation pneumonitis, the potential for increased [...] consider his options Supportive Care Referral to Assistant Store Manager Operations OTHER ISSUES Tobacco use: not actively smoking documented in this encounter Plan of Treatment Upcoming Encounters Date Type Department Care Team (Late st Contact Info) Description 11/10/2023 8:30 AM EDT Infusion Hematology Oncology at [address] [phone] 11/30/2023 8:30 AM EDT Office Visit Hematology/Oncology at [address] [phone] Bisi Hollis APRN [address] [place] [address] [place] [address] 11/30/2023 9:00 AM EDT Infusion Hematology Oncology at [address] [phone] 12/07/2023 11:15 AM EDT Office [place] [address] Daisy Lloyd PA [facility] [place] [address] Scheduled Orders Name Type Priority Associated Diagnoses Orde r Schedule Simulation for Radiation Therapy Planning Procedures Routine Primary malignant neoplasm of right upper lobe of lung Ordered: 02/06/2021 documented as of this encounter Visit Diagnoses Diagnosis Primary malignant neoplasm of right upper lobe of lung Malignant neoplasm of upper lobe, bronchus or lung documented in this encounter Care Teams Sales Development Executive Relationship Specialty Start Date End Date Nick Martinez MD [address] [place] [address] PCP - General Internal Medicine 07/01/18 documented as of this encounter
--- OUTSIDE RECORDS SUMMARY | 2023-10-27 15:25 | XMS_ITS | Encounter Summary ---
Author Organization [facility] [place] [address] Care Team Providers Care Hadoop Java Developer Name Role Phone Nick Martinez MD Primary Care Provider Reason for Referral * Diagnostic Test (Routine) - Closed Specialty Diagnoses / Procedures Referred By Mariana workman Referred To Contact Radiology Diagnoses Primary malignant neoplasm of right upper lobe of lung Procedures NM PET CT Skull Base to Mid-thigh Boy Tovar MD [facility] DR [place] [address] [place] [address] Referral ID Status Reason Start Date Expiration Date V isits Requested Visits Authorized [id number] Closed Specialty Service Requested 12/23/2020 06/23/2022 1 1 * Consultation (Urgent) - Closed Specialty Diagnoses / Procedures Referred By Mariana workman Referred To Contact Pulmonology Diagnoses Primary malignant neoplasm of right upper lobe of lung Boy Tovar MD [facility] DR [place] [address] [facility] [address] [place] [phone] Referral ID Status Reason Start Date Expiration Date V isits Requested Visits Authorized [id number] Closed Consult, Test & Treat 12/23/2020 12/23/2021 1 1 Reason for Visit * Consultation (Routine) - Closed Specialty Diagnoses / Procedures Referred By Contac t Referred To Contact Hematology and Oncology Diagnoses Malignant neoplasm of unspecified part of right bronchus or lung ADENOCARCINOMA RIGHT LUNG Procedures TREATMENT OPTIONS Chong Montano MD [address] [place] [address] Stj Hem Onc Office [address] [place] [phone] Referral ID Status Reason Start Date Expiration Date Visits Re quested Visits Authorized [id number] Closed 12/15/2020 12/15/2021 1 1 Encounter Details Date Type Department Care Team (Late st Contact Info) Description 12/22/2020 4:00 PM EDT Office Visit Hematology/Oncology at [address] [phone] Boy Tovar MD [facility] DR [place] [address] Primary malignant neoplasm of right upper lobe [...] slept in a usp (including now)? No 12/22/2020 Sex and Gender [...] were not included. Hematology & Medical Oncology [address] [phone] Raffy Latif is being seen for the [...] MD, MS 12/22/2020 Medical Oncology & Hematology [facility] CC: Nick Martinez MD [facility] HPI/Interval History/Subjective: Raffy Latif is a 60 [...] one through foster care. 1 grandchild Employment: [employer] Tobacco use: Quit in 1999. 38 [address]k [...] AM EDT Infusion Hematology Oncology at [address] [phone] 11/30/2023 8:30 AM EDT Office Visit Hematology/Oncology at [address] [phone] Bisi Hollis [address] HEMATOLOGY [place] [address] 11/30/2023 9:00 AM EDT Infusion Hematology Oncology at [address] [phone] 12/07/2023 11:15 AM EDT Office Visit [place] [address] Daisy Lloyd PA [facility] DR [place] [address] Scheduled Referrals Name Type Priority Associated Diagnoses [...] who have questions please contact the health progressive care nurse that requested your imaging first. ? Electronically signed by: Alfredo Jean-Baptiste MD, [facility] ([phone]), at 01/07/2021 10:13 AM Narrative 01/07/2021 10:13 [...] patients who have questions please contactthe health progressive care nurse that requested your imaging first. Boy Tovar MD IMG PET ORDERABLES documented in this encounter Visit Diagnoses Diagnosis Primary malignant neoplasm of right upper lobe of lung- Primary Malignant neoplasm of upper lobe, bronchus or lung Primary malignant neoplasm of right upper lobe of lung Malignant neoplasm of upper lobe, bronchus or lung documented in this encounter Care Teams Hadoop Java Developer Relationship Specialty Start Date End Date Nick Martinez MD [address] [place] [address] PCP - General Internal Medicine 07/01/18 documented as of this encounter
--- OUTSIDE RECORDS SUMMARY | 2023-10-27 15:25 | XMS_ITS | Encounter Summary ---
Author Organization [facility] Address [address] [place] [address] Care Team Providers Care Chief Projectionist Name Role Phone Unavailable Primary Care Provider Unavailabl e Encounter Details Date Type Department Care Team (Late st Contact Info) Description 01/18/2021 Lab Requisition [facility] Pathology & Laboratory Medicine - [facility] [address] [place] [address] Outr Resulting Lab, Provider Social History Tobacco [...] Priority Date/Time Associated Diagnosis Comments ZZCOVID-19 TEST [facility] PCR Today 01/17/2021 19:35 EST COVID-19 TESTING Routine 01/17/2021 19:3 5 EST documented in this encounter Results * COVID-19 TEST [facility] PCR (01/17/2021 19:35 EST) Swab 01/17/2021 19:3 5 EST 01/18/2021 15:47 EST Provider Outr Resulting Lab MICROBIOLOGY - GENERAL ORDERABLES [facility] [address] [place] [address] * COVID-19 TESTING (01/17/2021 19:35 EST) COVID-19 rt-PCR Result Negative Negative 01/19/2021 9:44 EST [facility] Comment: This test has [...] was performed using the qamar SARS-CoV-2 assay ([employer] on the Qamar 6800 System Performing Lab Qamar 6800 [facility] 01/19/2021 9:44 EST [facility] Swab 01/17/2021 19:3 5 EST 01/18/2021 15:47 EST Provider Outr Resulting Lab MICROBIOLOGY - GENERAL ORDERABLES [facility] [address] [place] [address] documented in this encounter Visit Diagnoses Not on filedocumented in this encounter Additional Health Concerns Infection Onset Date Last Indicated Resolved Time COVID-19 03/26/2021 03/26/2021 04/15/2021 22:1 5 EST documented as of this encounter
--- OUTSIDE RECORDS SUMMARY | 2023-10-27 15:25 | XMS_ITS | Encounter Summary ---
Author Organization [facility] Address [facility] [place] [address] Care Team Providers Care Patch Setter Name Role Phone Nick Martinez MD Primary Care Provider [phone] Encounter Details Date Type Department Care Team (Late st Contact Info) Description 01/06/2021 Telephone Hematology [place] [address] Boy Tovar MD [facility] DR HEMATOLOGY [place] [address] Social History Tobacco Use Types Packs/Day Years [...] AM EDT Infusion Hematology Oncology at [address] [phone] 11/30/2023 8:30 AM EDT Office Visit Hematology/Oncology at [address] [phone] Bisi Hollis APRN [address] [place] [address] DR HEMATOLOGY AND ONCOLOGY [place], [place] [id number] 11/30/2023 9:00 AM EDT Infusion Hematology Oncology at [address] [phone] 12/07/2023 11:15 AM EDT Office Visit [place] [address] Daisy Lloyd PA [facility] DR [place] [address] documented as of this encounter Visit Diagnoses Not on filedocumented in this encounter Care Teams Patch Setter Relationship Specialty Start Date End Date Nick Martinez MD [address] [place] [address] PCP - General Internal Medicine 07/01/18 documented as of this encounter
--- OUTSIDE RECORDS SUMMARY | 2023-10-27 15:25 | XMS_ITS | Encounter Summary ---
Author Organization [facility] Address [facility] [place] [address] Care Team Providers Care Ore Feeder Name Role Phone Nick Martinez MD Primary Care Provider [phone] Encounter Details Date Type Department Care Team (Late st Contact Info) Description 01/20/2021 Telephone Hematology [place] [phone] Boy Tovar MD [facility] DR HEMATOLOGY [place] [address] Social History Tobacco Use Types Packs/Day Years [...] the results of [place] [facility] and the MRI at [facility] from yesterday. Left a message on his cell and then was able to reach his and discussed the results. Will send message to radiation oncology as well as [facility]. 01.19.21 MRI BRain 01.19.21 PET scan IMPRESSION [...] AM EDT Infusion Hematology Oncology at [address] [phone] 11/30/2023 8:30 AM EDT Office Visit Hematology/Oncology at [address] [phone] Bisi Hollis APRN [address] [place] [address] DR HEMATOLOGY AND ONCOLOGY [place], [place] [address] 11/30/2023 9:00 AM EDT Infusion Hematology Oncology at [address] [phone] 12/07/2023 11:15 AM EDT Office Visit [place] [address] Daisy Lloyd PA [facility] DR HEMATOLOGY [place] [address] documented as of this encounter Visit Diagnoses Not on filedocumented in this encounter Care Teams Ore Feeder Relationship Specialty Start Date End Date Nick Martinez MD [address] [place] [address] PCP - General Internal Medicine 07/01/18 documented as of this encounter
--- OUTSIDE RECORDS SUMMARY | 2023-10-27 15:25 | XMS_ITS | Encounter Summary ---
Author Organization [facility] [place] [address] Care Team Providers Care Bakelite Molder Name Role Phone Nick Martinez MD Primary Care Provider Reason for Referral * Diagnostic Test (Routine) - Closed Specialty Diagnoses / Procedures Referred By Contmilagro t Referred To Contact Radiology Diagnoses Primary malignant neoplasm of right upper lobe of lung Procedures NM PET CT Skull Base to Mid-thigh Boy Tovar MD [facility] [address] [place] [address] [place] [address] Referral ID Status Reason Start Date Expiration Date V isits Requested Visits Authorized [id number] Closed Specialty Service Requested 01/08/2021 07/08/2022 1 1 Reason for Visit * Diagnostic Test (Routine) - Closed Specialty Diagnoses / Procedures Referred By Contmilagro t Referred To Contact Radiology Diagnoses Primary malignant neoplasm of right upper lobe of lung Procedures NM PET CT Skull Base to Mid-thigh Boy Tovar MD [facility] DR [place] [address] [place] [address] Referral ID Status Reason Start Date Expiration Date V isits Requested Visits Authorized [id number] Closed Specialty Service Requested 01/08/2021 07/08/2022 1 1 Encounter Details Date Type Department Care Team (Late st Contact Info) Description 01/19/2021 6:11 AM EST Hospital Encounter [place] [address] Boy Tovar MD [facility] DR [place] [address] Primary malignant neoplasm of right [...] AM EDT Infusion Hematology Oncology at [address] [phone] 11/30/2023 8:30 AM EDT Office Visit Hematology/Oncology at [address] [phone] Bisi Hollis CLUB WAITER/WAITRESS [address] [place] [address] DR [place] [address] 11/30/2023 9:00 AM EDT Infusion Hematology Oncology at [address] [phone] 12/07/2023 11:15 AM EDT Office Visit [place] [address] Daisy Lloyd PA [facility] DR [place] [address] documented as of this encounter Procedures Procedure [...] who have questions please contact the health youth care worker that requested your imaging first. ? Electronically signed by: Alfredo Jean-Baptiste MD, [facility] ([phone]), at 01/19/2021 10:17 AM Narrative 01/19/2021 10:17 AM EST EXAMINATION: NM PET CT STANDARD SKULL BASE TO MID-THIGH CLINICAL HISTORY: Non-small cell lung cancer, staging. Endobronchial ultrasound shows an N3 disease with 4L involvement per electronic medical record. TECHNIQUE: Following IV injection of 69-nyciil-2-deoxyglucose (FDG) a standard uptake of approximately 60 [...] Note Alfredo Jean-Baptiste MD - 01/19/2021 EXAMINATION: UT PET CT STANDARD SKULL BASE TO MID-THIGH CLINICAL HISTORY: Non-small cell lung cancer, staging. Endobronchialultrasound shows an N3 disease with 4L involvement per electronic medical record. TECHNIQUE: Following IV injection of 43-cjgsvg-3-deoxyglucose (FDG) astandard uptake of approximately 60 minutes, [...] subcarinal, left high paratracheal (axial images [id number]), and left high anterior mediastinal regions (axial [...] patients who have questions please contactthe health youth care worker that requested your imaging first. Electronically signed by: Alfredo Jean-Baptiste MD, [facility]([phone]), at 01/19/2021 10:17 AM Boy Tovar MD [...] Intravenous, ONCE PRN, 1 dose, Starting on Tue01/19/21 at 0718, Until Tue01/19/21 at 0710, Per Protocol, Radiology Contrast, Routine Given 01/19/2021 7:10 AM EST 16.9 mCi Right Arm documented in this encounter Care Teams Bakelite Molder Relationship Specialty Start Date End Date Nick Martinez MD [address] [place] [address] PCP - General Internal Medicine 07/01/18 documented as of this encounter
--- OUTSIDE RECORDS SUMMARY | 2023-10-27 15:25 | XMS_ITS | Encounter Summary ---
[place] [address] Care Team Providers Care Stiff Leg Derrick Operator Name Role Phone Nick Martinez MD Primary Care Provider [phone] Encounter Details Date Type Department Care Team (Late st Contact Info) Description 12/29/2020 Telephone [place] [address] Marjorie Johnston Social History Tobacco [...] slept in a mcc (including now)? No 12/22/2020 Sex and Gender Information Value Date Recorded Sex Assigned at Not on file Gender Identity Not on file Sexual Orientation Not on file documented as of this encounter Plan of Treatment Upcoming Encounters Date Type Department Care Team (Late st Contact Info) Description 11/10/2023 8:30 AM EDT Infusion Hematology Oncology at [address] [place] [address] [phone] 11/30/2023 8:30 AM EDT Office Visit Hematology/Oncology at [address] [phone] Bisi Hollis GERMINATION TESTING MANAGER [address] [place] [address] DR HEMATOLOGY AND ONCOLOGY [place], [place] [address] 11/30/2023 9:00 AM EDT Infusion Hematology Oncology at [address] [phone] 12/07/2023 11:15 AM EDT Office Visit [place] [address] Daisy Lloyd PA [facility] DR [place] [address] documented as of this encounter Visit Diagnoses Not on filedocumented in this encounter Care Teams Stiff Leg Derrick Operator Relationship Specialty Start Date End Date Nick Martinez MD [address] [place] [address] PCP - General Internal Medicine 07/01/18 documented as of this encounter
--- OUTSIDE RECORDS SUMMARY | 2023-10-27 15:25 | XMS_ITS | Encounter Summary ---
Author Organization [facility] [place] [address] Care Team Providers Care Epic Cadence Specialists Name Role Phone Nick Martinez MD Primary Care Provider Encounter Details Date Type Department Care Team (Latest Contact Info) Description 12/01/2020 1:50 PM EDT - 12/01/2020 11:59 PM EDT Hospital Encounter XRay at [address] [place] [address] Jarad Parada, [facility] [place] [address] Discharge Disposition: Home Social History Tobacco Use [...] AM EDT Infusion Hematology Oncology at [address] [phone] 11/30/2023 8:30 AM EDT Office Visit Hematology/Oncology at [address] [phone] Bisi Hollis APRN [address] [place] [address] DR [place] [address] 11/30/2023 9:00 AM EDT Infusion Hematology Oncology at [address] [phone] 12/07/2023 11:15 AM EDT Office Visit [place] [address] Daisy Lloyd PA [facility] DR [place] [address] documented as of this encounter Procedures Procedure [...] questions please contact the health direct care provider that requested your imaging first. [...] have questions please contactthe health direct care provider that requested your imaging first. Jarad Parada DO IMG DX ORDERABLES documented in this encounter Visit Diagnoses Not on filedocumented in this encounter Care Teams Epic Cadence Specialists Relationship Specialty Start Date End Date Nick Martinez MD [address] [place] [address] PCP - General Internal Medicine 07/01/18 documented as of this encounter
--- OUTSIDE RECORDS SUMMARY | 2023-10-27 15:25 | XMS_ITS | Encounter Summary ---
Author Organization [facility] [place] [address] Care Team Providers Care Construction Site Crossing Guard Name Role Phone Nick Martinez MD Primary Care Provider [phone] Encounter Details Date Type Department Care Team (Late st Contact Info) Description 11/28/2020 Orders [place] [address] Jarad Parada, [facility] [place] [address] Social History Tobacco Use Types Packs/Day Years [...] has needle phobia. IR History: None at [facility] Antiplatelets: None. Anticoagulants: None. Recent Laboratories: ??? [...] AM EDT Infusion Hematology Oncology at [address] [phone] 11/30/2023 8:30 AM EDT Office Visit Hematology/Oncology at [address] [phone] Bisi Hollis [address] [place] [address] 11/30/2023 9:00 AM EDT Infusion Hematology Oncology at [address] [phone] 12/07/2023 11:15 AM EDT Office Visit [place] [address] Daisy Lloyd PA [facility] DR [place] [address] documented as of this encounter Visit Diagnoses Not on filedocumented in this encounter Care Teams Construction Site Crossing Guard Relationship Specialty Start Date End Date Nick Martinez MD [address] [place] [address] PCP - General Internal Medicine 07/01/18 documented as of this encounter
--- OUTSIDE RECORDS SUMMARY | 2023-10-27 15:25 | XMS_ITS | Encounter Summary ---
Author Organization [facility] [place] [address] Care Team Providers Care Steam Power Plant Operator Name Role Phone Nick Martinez MD Primary Care Provider [phone] Reason for Visit * Diagnostic Test (Routine) - Closed Specialty Diagnoses / Procedures Referred By Mariana workman Referred To Contact Radiology Diagnoses Primary malignant neoplasm of right upper lobe of lung Procedures NM PET CT Skull Base to Mid-thigh Boy Tovar MD [facility] DR [place] [address] [place] [address] Referral ID Status Reason Start Date Expiration Date V isits Requested Visits Authorized [id number] Closed Specialty Service Requested 01/08/2021 07/08/2022 1 1 Encounter Details Date Type Department Care Team (Late st Contact Info) Description 01/19/2021 6:12 AM EST - 01/19/2021 11:59 PM [facility] Hospital En[place] [address] Boy Tovar MD [facility] DR [place] [address] Discharge Disposition: Home Social History Tobacco Use [...] AM EDT Infusion Hematology Oncology at [address] [phone] 11/30/2023 8:30 AM EDT Office Visit Hematology/Oncology at [address] [phone] Bisi Hollis APRN [address] [place] [address] DR HEMATOLOGY AND ONCOLOGY [place], [place] [phone] 11/30/2023 9:00 AM EDT Infusion Hematology Oncology at [address] [phone] 12/07/2023 11:15 AM EDT Office Visit [place] [address] Daisy Lloyd PA [facility] DR [place] [address] documented as of this encounter Procedures Procedure Name Priority Date/Time Associated Diagnosis Comments NM PET CT SKULL BASE TO MID-THIGH ([facility]) Routine 01/19/2021 8:24 AM EST Primary malignant neoplasm of right upper lobe of lung POCT GLUCOSE Routine 01/19/2021 6:52 AM EST documented in this encounter Results * POCT Glucose (01/19/2021 6:52 AM EST) Glucose, POC 114 65 - 199 mg/dL [facility] Comment: Supplemental ranges: <140 mg/dL before meals <180 mg/dL all other times of the day Blood 01/19/2021 6:52 AM EST 01/19/2021 6:52 AM EST Boy Tovar MD POINT OF CARE TEST [place] [address] documented in this encounter Visit Diagnoses Not on filedocumented in this encounter Care Teams Steam Power Plant Operator Relationship Specialty Start Date End Date Nick Martinez MD [address] [place] [address] PCP - General Internal Medicine 07/01/18 documented as of this encounter
--- OUTSIDE RECORDS SUMMARY | 2023-10-27 15:25 | XMS_ITS | Encounter Summary ---
Author Organization [facility] [place] [address] Care Team Providers Care Folder Inspector Name Role Phone Nick Martinez MD Primary Care Provider [phone] Encounter Details Date Type Department Care Team (Late st Contact Info) Description 12/26/2020 Telephone Hematology/Oncology at [address] [phone] Andrew Bueno Social History Tobacco [...] 8:30 AM EDT Infusion Hematology Oncology at [address] [phone] 11/30/2023 8:30 AM EDT Office Visit Hematology/Oncology at [address] [phone] Bisi Hollis APRN [address] [place] [address] DR HEMATOLOGY [place] [address] 11/30/2023 9:00 AM EDT Infusion Hematology Oncology at [address] [phone] 12/07/2023 11:15 AM EDT Office Visit Radiation [place] [address] Daisy Lloyd PA [facility] HEMATOLOGY [place] [address] documented as of this encounter Visit Diagnoses Not on filedocumented in this encounter Care Teams Folder Inspector Relationship Specialty Start Date End Date Nick Martinez MD [address] [place] [address] PCP - General Internal Medicine 07/01/18 documented as of this encounter
--- OUTSIDE RECORDS SUMMARY | 2023-10-27 15:25 | XMS_ITS | Encounter Summary ---
Author Organization [facility] Address [address] [place] [address] Care Team Providers Care Tube Worker Name Role Phone Unavailable Primary Care Provider Unavailabl e Encounter Details Date Type Department Care Team (Late st Contact Info) Description 07/17/2023 Lab Requisition [facility] Pathology & Laboratory Medicine - [facility] [address] [place] [address] Outr Resulting Lab, Provider Social History Tobacco [...] Rslt (PF1RES) Negative Negative 07/18/2023 21:21 EDT [facility] Paraflu Type 2 Rslt (PF2RES) Negative Negative 07/18/2023 21:21 EDT [facility] Paraflu Type 3 Rslt (PF3RES) Negative Negative 07/18/2023 21:21 EDT [facility] Paraflu Type 4 Rslt Negative Negative 07/17 21:21 EDT [facility] Rhinovirus RNA Rslt (RVRES) Negative Negative 07/18/2023 21:21 EDT [facility] Metapneumovirus RNA Rslt (HMVRES) Negative Negative 07/18/2023 21:21 EDT [facility] Adenovirus DNA Rslt (ADVRES) Negative Negative 07/18/2023 21:21 EDT [facility] Swab NASOPHARYNGEAL STRUCTURE / Unknown 07/17/2023 12:04 EDT 07/18/2023 17:14 EDT Provider Outr Resulting Lab MICROBIOLOGY - GENERAL ORDERABLES [facility] [address] [place], [place] [id number] documented in this encounter Visit Diagnoses Not on filedocumented in this encounter
--- OUTSIDE RECORDS SUMMARY | 2023-10-27 15:25 | XMS_ITS | Encounter Summary ---
[place] [address] Care Team Providers Care Rotary Veneer Machine Operator Name Role Phone Nick Martinez MD Primary Care Provider [phone] Reason for Visit * Reason Onset Date Comments Prior Authorization 01/16/2021 Molecular ca ncer testing authorization - Submitted Encounter Details Date Type Department Care Team (Late st Contact Info) Description 01/16/2021 Telephone [place] [address] Michelle Castillo Prior Authorization (Molecular [...] Molecular cancer testing authorization - Approval: [facility]' ([facility]) approval of molecular cancer testing has been scanned into the patient's Media folder. Auth: [id number]. Valid: 12/31/2020 through 04/02/2021. Lab: [facility]. CPT: 04254. Dx: C34.11/lung cancer. Ordering: Roman Teran MD ([id number]). I will e-mail Caryn to let her know of the approval. * Telephone Encounter - Michelle Castillo - 01/16/2021 3:38 PM EST Molecular cancer testing authorization - Submitted: I received an e-mail from Caryn in [employer] ([id number]) requesting coverage review for CPT 26182 which is to be onlung cancer tissue obtained on 12/31/20. Ordering provider is Jamarcus Teran MD ([id number]). Per a call to [facility] ( ), policy [id number] is active. CPT 10239 needs authorization whichwas submitted to [facility] via fax to . The fax confirmation and Request Form are scanned in the patient's Media folder. Ref: [id number]. I will e-mail Caryn to let her know of the submission. documented in this encounter Plan of Treatment Upcoming Encounters Date Type Department Care Team (Late st Contact Info) Description 11/10/2023 8:30 AM EDT Infusion Hematology Oncology at [address] [phone] 11/30/2023 8:30 AM EDT Office Visit Hematology/Oncology at [address] [phone] Bisi Hollis APRN [address] [place] [address] DR HEMATOLOGY [place] [address] 11/30/2023 9:00 AM EDT Infusion Hematology Oncology at [address] [phone] 12/07/2023 11:15 AM EDT Office Visit [place] [address] Daisy Lloyd PA [facility] DR [place] [address] documented as of this encounter Visit Diagnoses Not on filedocumented in this encounter Care Teams Rotary Veneer Machine Operator Relationship Specialty Start Date End Date Nick Martinez MD [address] [place] [address] PCP - General Internal Medicine 07/01/18 documented as of this encounter
--- OUTSIDE RECORDS SUMMARY | 2023-10-27 15:25 | XMS_ITS | Encounter Summary ---
Author Organization [facility] [place] [address] Care Team Providers Care Service Cleaner Name Role Phone Nick Martinez MD Primary Care Provider Reason for Visit * Auth/Cert Specialty Diagnoses / Procedures Referred By Mariana workman Referred To Contact Diagnoses Lung cancer/ Bronchoscopy with EBUS/ GA/ Backer Procedures PRO [facility] EBUS GUIDED SAMPL 1/2 NODE STATION/STRUX BRONCH, W ENDOBRONCHIAL ULTRASOUND (EBUS) GUIDED SAMPLING, 1/2 NODES (WRVU 4.71) Referral ID Status Reason Start Date Expiration Date Visits Re quested Visits Authorized [id number] 1 1 Encounter Details Date Type Department Care Team (Late st Contact Info) Description 12/31/2020 3:33 PM EDT Anesthesia Event [place] [phone] Lexie Bender MD [facility] [place] [address] Rafael Sterling MD [facility] [place] [address] Anesthesia Record Procedure Summary Procedure Name Responsible [...] 1444; metacarpal vein (top of hand), left; kjli-fag-wormmv catheter system; Anatomical Landmarks; 20 gauge; Zhane [...] Procedure Summary Date: 12/31/20 Room / Location: [facility] MAIN OR Anesthesia Start: 153 Anesthesia Stop: Procedure: BRONCH, W ENDOBRONCHIAL ULTRASOUND (EBUS) GUIDED SAMPLING, 3+ NODES (WRVU 5.21) (N/A ) Diagnosis: Malignant neoplasm of lung, unspecified laterality, unspecified part of lung (Lung cancer/ Bronchoscopy with EBUS/ GA/ Parul) Surgeons: Roman Teran MD Responsible Provider: Lexie Bender MD Anesthesia Type: general ASA Status: 3 All Anesthesia Providers: Anesthesiologist: Lexie Bender MD ENGRAVER STEEL PLATE: Dmitry Meade CRNA Vitals Value Taken Time BP 114/65 12/31/20 1715 Temp 36.4 ??C (97.5 ??F) 12/31/20 1705 Pulse Resp 16 12/31/20 1705 SpO2 95 % 12/31/20 1719 Pain Level Vitals shown include unvalidated device data. Patient Location: PACU/[facility] Level of Consciousness: Awake and Alert Pain [...] Guided Biopsy Lung 12/01/2020 Jarad Parada, DO [facility] RAD CAT SCAN Social History Tobacco Use [...] alternatives. Lexie Bender MD Attending Anesthesiologist Pager [phone] 12/31/20 2:48 PM Region - Intrathoracic Non-Cardiac Informed Consent: Anesthetic plan and risks discussed with patient. Plan discussed with attending and ENGRAVER STEEL PLATE. Anesthesia Screening documented in this encounter Plan of Treatment Upcoming Encounters Date Type Department Care Team (Late st Contact Info) Description 11/10/2023 8:30 AM EDT Infusion Hematology Oncology at [address] [phone] 11/30/2023 8:30 AM EDT Office Visit Hematology/Oncology at [address] [phone] Bisi Hollis APRN [address] [place] [address] DR HEMATOLOGY AND ONCOLOGY [place], [place] [address] 11/30/2023 9:00 AM EDT Infusion Hematology Oncology at [address] [phone] 12/07/2023 11:15 AM EDT Office Visit Radiation Oncology at [facility] [place] [address] Daisy Lloyd PA [facility] DR HEMATOLOGY [place] [address] documented as of this encounter Visit Diagnoses [...] mg documented in this encounter Care Teams Service Cleaner Relationship Specialty Start Date End Date Nick Martinez MD [address] [place] [address] PCP - General Internal Medicine 07/01/18 documented as of this encounter
--- OUTSIDE RECORDS SUMMARY | 2023-10-27 15:25 | XMS_ITS | Encounter Summary ---
Author Organization [facility] [place] [address] Care Team Providers Care Stenotype Operator Name Role Phone Nick Martinez MD Primary Care Provider [phone] Reason for Referral * Consultation (Routine) - Closed Specialty Diagnoses / Procedures Referred By Mariana workman Referred To Contact Radiation Oncology Diagnoses Primary malignant neoplasm of right upper lobe of lung Boy Tovar MD [facility] DR [place] [address] [facility] Onc [address] [phone] Referral ID Status Reason Start Date Expiration Date V isits Requested Visits Authorized [id number] Closed Consult, Test & Treat 01/08/2021 01/08/2022 1 1 * Diagnostic Test (Routine) - Closed Specialty Diagnoses / Procedures Referred By Mariana workman Referred To Contact Radiology Diagnoses Primary malignant neoplasm of right upper lobe of lung Procedures NM PET CT Skull Base to Mid-thigh Boy Tovar MD [facility] DR [place] [address] [facility] [place] [address] Referral ID Status Reason Start Date Expiration Date V isits Requested Visits Authorized [id number] Closed Specialty Service Requested 01/08/2021 07/08/2022 1 1 Encounter Details Date Type Department Care Team (Late st Contact Info) Description 01/08/2021 Telephone Hematology and Oncology at [facility] [place] [phone] Boy Tovar MD [facility] DR [place] [address] Social History Tobacco Use Types Packs/Day Years [...] Will also refer to radiation oncology at [facility] which should be scheduled for after the PET scan is done (in case he has more advanced disease) documented in this encounter Plan of Treatment Upcoming Encounters Date Type Department Care Team (Late st Contact Info) Description 11/10/2023 8:30 AM EDT Infusion Hematology Oncology at [address] [phone] 11/30/2023 8:30 AM EDT Office Visit Hematology/Oncology at [address] [phone] Bisi Hollis APRN [address] [place] [address] DR HEMATOLOGY [place] [address] 11/30/2023 9:00 AM EDT Infusion Hematology Oncology at [address] [phone] 12/07/2023 11:15 AM EDT Office [place] [address] Daisy Lloyd PA [facility] DR [place] [address] Scheduled Referrals Name Type Priority Associated Diagnoses [...] who have questions please contact the health physician locums urgent care that requested your imaging first. ? Electronically signed by: Alfredo Jean-Baptiste MD, [facility] ([phone]), at 01/19/2021 10:17 AM Narrative 01/19/2021 10:17 AM EST EXAMINATION: NM PET CT STANDARD SKULL BASE TO MID-THIGH CLINICAL HISTORY: Non-small cell lung cancer, staging. Endobronchial ultrasound shows an N3 disease with 4L involvement per electronic medical record. TECHNIQUE: Following IV injection of 85-uvhggv-7-deoxyglucose (FDG) a standard uptake of approximately 60 [...] medical record. TECHNIQUE: Following IV injection of 58-tbzgmh-8-deoxyglucose (FDG) astandard uptake of approximately 60 minutes, [...] subcarinal, left high paratracheal (axial images 53 [id number]), and left high anterior mediastinal regions (axial [...] patients who have questions please contactthe health physician locums urgent care that requested your imaging first. Electronically signed by: Alfredo Jean-Baptiste MD, [facility]([phone]), at 01/19/2021 10:17 AM Boy Tovar MD IMG PET ORDERABLES documented in this encounter Visit Diagnoses Diagnosis Primary malignant neoplasm of right upper lobe of lung- Primary Malignant neoplasm of upper lobe, bronchus or lung Primary malignant neoplasm of right upper lobe of lung Malignant neoplasm of upper lobe, bronchus or lung documented in this encounter Care Teams Stenotype Operator Relationship Specialty Start Date End Date Nick Martinez MD [address] [place] [address] PCP - General Internal Medicine 07/01/18 documented as of this encounter
--- OUTSIDE RECORDS SUMMARY | 2023-10-27 15:25 | XMS_ITS | Encounter Summary ---
[place] [address] Care Team Providers Care Dental Hygiene Teacher Name Role Phone Nick Martinez MD Primary Care Provider Encounter Details Date Type Department Care Team (Late st Contact Info) Description 01/19/2021 Ancillary Procedure [place] [address] Nick Martinez MD [address] [place] [address] Social History Tobacco Use Types [...] AM EDT Infusion Hematology Oncology at [address] [phone] 11/30/2023 8:30 AM EDT Office Visit Hematology/Oncology at [address] [phone] Bisi Hollis APRN [address] [place] [address] DR [place]Y [place] [address] 11/30/2023 9:00 AM EDT Infusion Hematology Oncology at [address] [phone] 12/07/2023 11:15 AM EDT Office [place] [address] Daisy Lloyd PA [facility] DR [place] [address] documented as of this encounter Procedures Procedure Name Priority Date/Time Associated Diagnosis Comments FILM LIBRARY STORAGE ONLY MR HEAD Routine 01/19/2021 12:00 AM EST documented in this encounter Results * Film Library- Storage Only MR Head (01/19/2021 12:00 AM EST) Narrative SUMEET - 01/20/2021 8:08 AM EST This exam is auto-finalizing. It's purpose is for storage only. Nick Martinez MD IMG FILM LIBRARY ORD ERABLES Performing Organization Address City/State/[facility] Co de Phone Number [place], [place] documented in this encounter Visit Diagnoses Not on filedocumented in this encounter Care Teams Dental Hygiene Teacher Relationship Specialty Start Date End Date Nick Martinez MD [address] [place] [address] PCP - General Internal Medicine 07/01/18 documented as of this encounter
--- OUTSIDE RECORDS SUMMARY | 2023-10-27 15:25 | XMS_ITS | Encounter Summary ---
Author Organization [facility] [place] [address] Care Team Providers Care Advertising Supervisor Name Role Phone Nick Martinez MD Primary Care Provider [phone] Reason for Visit * Auth/Cert Specialty Diagnoses / Procedures Referred By Mariana t Referred To Contact Diagnoses Lung cancer/ Bronchoscopy with EBUS/ GA/ Backer Procedures PRO [facility] EBUS GUIDED SAMPL 1/2 NODE STATION/STRUX BRONCH, W ENDOBRONCHIAL ULTRASOUND (EBUS) GUIDED SAMPLING, 1/2 NODES (WRVU 4.71) Referral ID Status Reason Start Date Expiration Date Visits Re quested Visits Authorized [id number] 1 1 Encounter Details Date Type Department Care Team (Latest Contact Info) Description 12/31/2020 2:02 PM EDT - 12/31/2020 6:19 PM EDT Hospital Encounter [place] [phone] Roman Teran MD [facility] [place] [address] Discharge Disposition: Home Social History Tobacco Use [...] slept in a fdc (including now)? No 12/22/2020 Sex and Gender [...] our office at . There is someone call person to speak with 27/09. Roman Teran MD, [...] Section of Pulmonary & Critical Care Pager: [phone] documented in this encounter Miscellaneous Notes * [...] (4 lymph node stations): The Olympus EBUS ([id number]) scope was inserted, lymph node inspection undertaken [...] station 12R was not identified. Therapeutic Suctioning (48423): At least 15-20 min of operative time [...] Section of Pulmonary & Critical Care Pager: [phone] documented in this encounter Plan of Treatment Upcoming Encounters Date Type Department Care Team (Late st Contact Info) Description 11/10/2023 8:30 AM EDT Infusion Hematology Oncology at [address] [phone] 11/30/2023 8:30 AM EDT Office Visit Hematology/Oncology at [address] [phone] Bisi Hollis APRN [address] [place] [address] DR HEMATOLOGY AND ONCOLOGY [place], [place] [address] 11/30/2023 9:00 AM EDT Infusion Hematology Oncology at [address] [phone] 12/07/2023 11:15 AM EDT Office [place] [address] Daisy Lloyd PA [facility] DR [place] [address] documented as of this encounter Procedures Procedure Name Priority Date/Time Associated Diagnosis Comments SOLID TUMOR NGS PANEL Routine 12/31/2020 4:28 PM EDT NON-TRADE CLERK FINAL REPORT Routine 12/31/2020 4:28 PM EDT CYTOPATHOLOGY NON-GYNECOLOGICAL Routine 12/31/2020 4:28 PM EDT NON-TRADE CLERK FINAL REPORT Routine 12/31/2020 4:18 PM EDT CYTOPATHOLOGY NON-GYNECOLOGICAL Routine 12/31/2020 4:18 PM EDT NON-TRADE CLERK FINAL REPORT Routine 12/31/2020 4:09 PM EDT CYTOPATHOLOGY NON-GYNECOLOGICAL Routine 12/31/2020 4:09 PM EDT NON-TRADE CLERK FINAL REPORT Routine 12/31/2020 3:58 PM EDT CYTOPATHOLOGY NON-GYNECOLOGICAL Routine 12/31/2020 3:58 PM EDT [facility] Guided Sampl 3/> Node Station/Strux ([id number]) Yes 12/31/2020 3:32 PM EDT Malignant neoplasm of lung, unspecified laterality, unspecified part of lung documented in this encounter Results * Non-Special Education Educational Assistant Final Report (12/31/2020 4:28 PM EDT) Diagnosis Discussion [id number] ? Location: [facility]; [facility]; The signing pathologist has (i) [...] The assay was performed according to the senior communications engineer's instructions using Anti-PD-L1 (22C3, pharmDX) antibody. Electronically signed by: ?Aparna Varela DO Verified: ??01/06/2021 15:59 ??Pathologist Performed at: ??-[facility], [place], [place] ? Non-Special Education Educational Assistant Final DIAGNOSIS Positive for Malignancy Electronically signed by: ?Garcia VENTURA, Bradley Laird Verified: ??01/05/2021 12:33 ??Cytopathologist Performed at: ??-[facility], [place], [place] DISCUSSION Lymph node: 11R (EBUS-guided FNA) [...] Cell Block 1. 01/06/2021 3:59 PM EDT [facility] LYMPH NODE SPECIMEN / Unknown 12/31/2020 4:28 PM EDT 12/31/2020 4:28 PM EDT Roman Teran MD PATHOLOGY/CYTOLOGY O NAT Performing Organization Address City/[facility]/ZIP Co de Phone Number [facility] [place] [address] * Solid Tumor NGS Panel (12/31/2020 4:28 PM EDT) Tissue 12/31/2020 4:28 PM EDT 01/06/2021 7:06 AM EDT Narrative Resulting Agency Comment Spec In Lab Roman Teran MD PATHOLOGY/CYTOLOGY O NAT [facility] [place] [address] * Cytopathology Non-Gynecological (12/31/2020 4:28 PM EDT) AP Specimen 12/31/2020 4:28 PM EDT 12/31/2020 4:28 PM EDT Narrative [facility] - 12/31/2020 4:28 PM EDT Specimen requisition ordered. ??Separate Pathology report to follow Roman Teran MD PATHOLOGY/CYTOLOGY O RDERASARWAT [facility] [place] [address] * Non-Special Education Educational Assistant Final Report (12/31/2020 4:18 PM EDT) Diagnosis Discussion 58 ? Location: [facility]; [facility]; The signing pathologist has (i) examined the relevant preparation(s) for the specimen(s) and (ii) rendered or confirmed the diagnosis(es). . ? Non-Special Education Educational Assistant Final DIAGNOSIS Suspicious for Malignancy Electronically signed by: ?Mckinley VENTURA, Nabil Verified: ??01/05/2021 17:21 ??Pathologist Performed at: ??-[facility], [place], [place] DISCUSSION Lymph node, 4R (EBUS-guided FNA): [...] Cell Block 1. 01/05/2021 5:21 PM EDT [facility] LYMPH NODE SPECIMEN / Unknown 12/31/2020 4:18 PM EDT 12/31/2020 4:18 PM EDT Roman Teran MD PATHOLOGY/CYTOLOGY O NAT Performing Organization Address [facility] [place] [address] * Cytopathology Non-Gynecological (12/31/2020 4:18 PM EDT) AP Specimen 12/31/2020 4:18 PM EDT 12/31/2020 4:18 PM EDT Narrative [facility] - 12/31/2020 4:18 PM EDT Specimen requisition ordered. ??Separate Pathology report to follow Roman Teran MD PATHOLOGY/CYTOLOGY O NAT Performing Organization Address [facility] [place] [address] * Non-Special Education Educational Assistant Final Report (12/31/2020 4:09 PM EDT) Diagnosis Discussion [id number] ? Location: [facility]; [facility]; A The signing pathologist has (i) examined the relevant preparation(s) for the specimen(s) and (ii) rendered or confirmed the diagnosis(es). . ? Non-Special Education Educational Assistant Final DIAGNOSIS Positive for Malignancy Electronically signed by: ?Garcia VENTURA, Bradley Laird Verified: ??01/05/2021 12:17 ??Cytopathologis t Performed at: ??-[facility], [place], [place] DISCUSSION Lymph node: station 7 (EBUS-guided FNA) - A rare cluster of highly atypical epithelial cells, compatible with a non-small cell carcinoma, present. See also the concurrent 11R lymph node FNA, [id number]. Dr. Neville concurs with the diagnosis. (Cell [...] Cell Block 1. 01/05/2021 12:17 PM EDT [facility] LYMPH NODE SPECIMEN / Unknown 12/31/2020 4:09 PM EDT 12/31/2020 4:09 PM EDT Roman Teran MD PATHOLOGY/CYTOLOGY O NAT Performing Organization Address [facility] Co de Phone Number [facility] [place] [address] * Cytopathology Non-Gynecological (12/31/2020 4:09 PM EDT) AP Specimen 12/31/2020 4:09 PM EDT 12/31/2020 4:09 PM EDT Narrative [facility] - 12/31/2020 4:09 PM EDT Specimen requisition ordered. ??Separate Pathology report to follow Roman Teran MD PATHOLOGY/CYTOLOGY O RDERASARWAT Performing Organization Address City/[facility]/ZIP Co de Phone Number [facility] [place] [address] * Non-Special Education Educational Assistant Final Report (12/31/2020 3:58 PM EDT) Diagnosis Discussion -[id number] ? Location: [facility]; [facility]; A The signing pathologist has (i) examined the relevant preparation(s) for the specimen(s) and (ii) rendered or confirmed the diagnosis(es). . ? Non-Special Education Educational Assistant Final DIAGNOSIS Positive for Malignancy Electronically signed by: ?Garcia VENUTRA, Bradley Laird Verified: ??01/05/2021 12:12 ??Cytopathologis t Performed at: ??-[facility], [place], [place] DISCUSSION Lymph node: 4L (EBUS-guided FNA) - A few clusters of highly atypical epithelial cells, compatible with a non-small cell carcinoma, present. See also the concurrent 11R lymph node FNA, [id number]. Dr. Neville concurs with the diagnosis. (Cell [...] Cell Block 1. 01/05/2021 12:12 PM EDT [facility] LYMPH NODE SPECIMEN / Unknown 12/31/2020 3:58 PM EDT 12/31/2020 3:58 PM EDT Roman Teran MD PATHOLOGY/CYTOLOGY O RDERABLES [facility] [place] [address] * Cytopathology Non-Gynecological (12/31/2020 3:58 PM EDT) AP Specimen 12/31/2020 3:58 PM EDT 12/31/2020 3:58 PM EDT Narrative [facility] - 12/31/2020 3:58 PM EDT Specimen requisition ordered. ??Separate Pathology report to follow Roman Teran MD PATHOLOGY/CYTOLOGY Jayden JOHNS [facility] [place] [address] documented in this encounter Visit Diagnoses Not [...] RN) documented in this encounter Care Teams Advertising Supervisor Relationship Specialty Start Date End Date Nick Martinez MD [address] [place] [address] PCP - General Internal Medicine 07/01/18 documented as of this encounter
--- OUTSIDE RECORDS SUMMARY | 2023-10-27 15:25 | XMS_ITS | Encounter Summary ---
Author Organization [facility] Address [address] [place] [address] Care Team Providers Care Broaching Machine Operator Name Role Phone Unavailable Primary Care Provider Unavailabl e Encounter Details Date Type Department Care Team (Late st Contact Info) Description 04/19/2023 Lab Requisition [facility] Pathology & Laboratory Medicine - [address] [address] Outr Resulting Lab, Provider Social History Tobacco [...] 5.14 See Note mg/L 04/19/2023 17:48 EST [facility] Comment: Reference Range: ??Low Risk: ? <1.0 mg/L ??Average Risk: ?? 1.0 - 3.0 mg/L ??High Risk: ?>3.0 mg/L ??Indeterminate*: >10.0 mg/L ??*May be an indication of another source of inflammation or infection Blood VENOUS BLOOD / Unknown 04/18/2023 16:45 EST 04/19/2023 17:04 EST Provider Outr Resulting Lab CHEMISTRY & BLOOD GAS ORDERABLES [facility] [address] [place] [address] documented in this encounter Visit Diagnoses Not on filedocumented in this encounter
--- OUTSIDE RECORDS SUMMARY | 2023-10-27 15:25 | XMS_ITS | Encounter Summary ---
Author Organization [facility] [place] [address] Care Team Providers Care Commercial Ocean Clammer Name Role Phone Nick Martinez MD Primary Care Provider [phone] Encounter Details Date Type Department Care Team (Late st Contact Info) Description 01/19/2021 Telephone Hematology Oncology at [address] [phone] Laly Larose, RN Social History [...] he had PET scan this morning at [facility]. He is very claustrophobic and took 2 [...] AM EDT Infusion Hematology Oncology at [address] [phone] 11/30/2023 8:30 AM EDT Office Visit Hematology/Oncology at [address] [phone] Bisi Hollis APRN [address] [place] [address] [place] [address] 11/30/2023 9:00 AM EDT Infusion Hematology Oncology at [address] [phone] 12/07/2023 11:15 AM EDT Office [place] [address] Daisy Lloyd PA [facility] DR HEMATOLOGY [place] [address] documented as of this encounter Visit Diagnoses Not on filedocumented in this encounter Care Teams Commercial Ocean Clammer Relationship Specialty Start Date End Date Nick Martinez MD [address] [place] [address] PCP - General Internal Medicine 07/01/18 documented as of this encounter
--- OUTSIDE RECORDS SUMMARY | 2023-10-27 15:25 | XMS_ITS | Encounter Summary ---
Author Organization 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 Boy Tovar MD [facility] DR HEMATOLOGY [place] [address] Rafa Small MD [facility] [place] [address] Referral ID Status Reason Start Date Expiration Date V isits Requested Visits Authorized [id number] Closed Consult, Test & Treat 01/02/2021 01/02/2022 1 1 Encounter Details Date Type Department Care Team (Late st Contact Info) Description 01/02/2021 Orders Only Hematology [place] [address] Boy Tovar MD [facility] DR HEMATOLOGY [place] [address] Primary malignant neoplasm of right upper lobe [...] AM EDT Infusion Hematology Oncology at [address] [phone] 11/30/2023 8:30 AM EDT Office Visit Hematology/Oncology at [address] [phone] Bisi Hollis APRN [address] [place] [address] DR HEMATOLOGY [place] [address] 11/30/2023 9:00 AM EDT Infusion Hematology Oncology at [address] [phone] 12/07/2023 11:15 AM EDT Office Visit [place] [address] Daisy Lloyd PA [facility] DR [place] [address] Scheduled Referrals Name Type Priority Associated Diagnoses Orde r Schedule Referral to Thoracic Surgery Outpatient Referral Routine Primary malignant neoplasm of right upper lobe of lung Ordered: 01/02/2021 documented as of this encounter Visit Diagnoses Diagnosis Primary malignant neoplasm of right upper lobe of lung Malignant neoplasm of upper lobe, bronchus or lung documented in this encounter Care Teams Digital Developer Relationship Specialty Start Date End Date Nick Martinez MD [address] [place] [address] PCP - General Internal Medicine 07/01/18 documented as of this encounter
--- OUTSIDE RECORDS SUMMARY | 2023-10-27 15:25 | XMS_ITS | Encounter Summary ---
Author Organization [facility] Address [address] [place] [address] Care Team Providers Care Surety Bond Agent Name Role Phone Unavailable Primary Care Provider Unavailabl e Encounter Details Date Type Department Care Team (Late st Contact Info) Description 03/26/2021 Lab Requisition [facility] Pathology & Laboratory Medicine - [facility] [address] [place] [address] Outr Resulting Lab, Provider Social History Tobacco [...] Priority Date/Time Associated Diagnosis Comments [facility]COVID-[address] [facility] Today 03/26/2021 11:30 EST COVID-19 TESTING Routine 03/26/2021 11:3 0 EST documented in this encounter Results * COVID-19 TEST [facility] LAB PCR (03/26/2021 11:30 EST) Swab 03/26/2021 11:3 0 EST 03/26/2021 22:14 EST Provider Outr Resulting Lab MICROBIOLOGY - GENERAL ORDERABLES [facility] [address] [place] [address] * (ABNORMAL) COVID-19 TESTING (03/26/2021 11:30 EST) COVID-19 rt-PCR Result Positive( AA) Negative 03/27/2021 17:04 EST [facility] Comment: This test has [...] was performed using the qamar SARS-CoV-2 assay ([employer] on the Qamar 6800 System Performing Lab Qamar 68[address] [facility] Lab 03/27/2021 17:04 EST [facility] Swab 03/26/2021 11:3 0 EST 03/26/2021 22:14 EST Provider Outr Resulting Lab MICROBIOLOGY - GENERAL ORDERABLES Performing Organization Address City/State/[facility] Co de Phone Number [facility] [address] [place] [address] documented in this encounter Visit Diagnoses Not on filedocumented in this encounter Additional Health Concerns Infection Onset Date Last Indicated Resolved Time COVID-19 03/26/2021 03/26/2021 04/15/2021 22:1 5 EST documented as of this encounter
--- OUTSIDE RECORDS SUMMARY | 2023-10-27 15:25 | XMS_ITS | Encounter Summary ---
[place] [address] Care Team Providers Care Flight Test Data Acquisition Technician Name Role Phone Nick Martinez MD Primary Care Provider Reason for Referral * Diagnostic Test (Routine) - Closed Specialty Diagnoses / Procedures Referred By Contac t Referred To Contact Radiology Diagnoses Primary malignant neoplasm of right upper lobe of lung Procedures NM PET CT Skull Base to Mid-thigh Boy Tovar MD [facility] DR [place] [address] [place] [address] Referral ID Status Reason Start Date Expiration Date V isits Requested Visits Authorized [id number] Closed Specialty Service Requested 12/23/2020 06/23/2022 1 1 Reason for Visit * Diagnostic Test (Routine) - Closed Specialty Diagnoses / Procedures Referred By Contac t Referred To Contact Radiology Diagnoses Primary malignant neoplasm of right upper lobe of lung Procedures NM PET CT Skull Base to Mid-thigh Boy Tovar MD [facility] DR [place] [address] [place] [address] Referral ID Status Reason Start Date Expiration Date V isits Requested Visits Authorized [id number] Closed Specialty Service Requested 12/23/2020 06/23/2022 1 1 Encounter Details Date Type Department Care Team (Late st Contact Info) Description 01/07/2021 6:08 AM EDT - 01/07/2021 6:09 AM EDT Hospital Encounter [place] [address] Boy Tovar MD [facility] DR [place] [address] Primary malignant neoplasm of right [...] slept in a custodial (including now)? No 12/22/2020 Sex and Gender [...] AM EDT Infusion Hematology Oncology at [address] [phone] 11/30/2023 8:30 AM EDT Office Visit Hematology/Oncology at [address] [phone] Bisi Hollis APRN [address] [place] [address] DR [place] [address] 11/30/2023 9:00 AM EDT Infusion Hematology Oncology at [address] [phone] 12/07/2023 11:15 AM EDT Office [place] [address] Daisy Lloyd PA [facility] DR [place] [address] documented as of this encounter Procedures Procedure [...] questions please contact the health health care liaison that requested your imaging first. ? Electronically signed by: Alfredo Jean-Baptiste MD, [facility] ([phone]), at 01/07/2021 10:13 AM Narrative 01/07/2021 10:13 [...] have questions please contactthe health health care liaison that requested your imaging first. Boy Tovar [...] Arm documented in this encounter Care Teams Flight Test Data Acquisition Technician Relationship Specialty Start Date End Date Nick Martinez MD [address] [place] [address] PCP - General Internal Medicine 07/01/18 documented as of this encounter
--- OUTSIDE RECORDS SUMMARY | 2023-10-27 15:25 | XMS_ITS | Encounter Summary ---
[place] [address] Care Team Providers Care Activities Manager Name Role Phone Nick Martinez MD Primary Care Provider Encounter Details Date Type Department Care Team (Late st Contact Info) Description 11/06/2020 Ancillary Procedure [place] [address] Nick Martinez MD [address] [place] [address] Social History Tobacco Use Types [...] AM EDT Infusion Hematology Oncology at [address] [phone] 11/30/2023 8:30 AM EDT Office Visit Hematology/Oncology at [address] [phone] Bisi Hollis APRN [address] [place] [address] DR HEMATOLOGY [place] [address] 11/30/2023 9:00 AM EDT Infusion Hematology Oncology at [address] [phone] 12/07/2023 11:15 AM EDT Office Visit [place] [address] Daisy Lloyd PA [facility] DR [place] [address] documented as of this encounter Procedures Procedure Name Priority Date/Time Associated Diagnosis Comments FILM LIBRARY STORAGE ONLY CT CHEST Routine 11/06/2020 12:00 AM EDT documented in this encounter Results * Film Library- Storage Only CT Chest (11/06/2020 12:00 AM EDT) Narrative [facility] - 11/27/2020 4:05 PM EDT This exam is auto-finalizing. It's purpose is for storage only. Nick Martinez MD IMG FILM LIBRARY ORD ERABLES [place], [place] documented in this encounter Visit Diagnoses Not on filedocumented in this encounter Care Teams Activities Manager Relationship Specialty Start Date End Date Nick Martinez MD [address] [place] [address] PCP - General Internal Medicine 07/01/18 documented as of this encounter
--- OUTSIDE RECORDS SUMMARY | 2023-10-27 15:26 | XMS_ITS | Data Portability ---
Author Organization [place] - [facility] Address [place] [address] Care Team Providers Care Surveillance System Monitor Name Role Phone YONY BUTTERFIELD Primary Care Provider [phone] Assessment No assessment recorded. Plan of Treatment Reminders Order Date Submit Date Provider Last Modified By Organization Details Last Modified Time Details Appointments None recorded. Lab CBC w/ diff [email or web address] [facility] (Registration ), [address] [place] [address] [place], [address], 4 12:27:29 CMP, serum or plasma 2023 024 [email or web address] [facility] (Registration ), [address] [place] [address] [place], [address], 4 20:46:04 ESR (erythroc yte sedimenta tion rate), blood 2023 024 [facility] (Registration ), [address] [place] [address] Dr [facility] [place], [address], 4 12:27:30 CRP, high sensitivi ty, csf [facility]23 [email or web address] [address] [place] [address] Dr [facility] [place], [address], 4 07:53:04 rapid strep group A, throat [address], [address] [place] [address], [address], [place], [address], 19:29:[address] referral - new RLE weakness. 2023 [email or web address] Elizabeth Haynes MD, [address] [place] [address] [address], [place], [address], 13:59:21 Procedures None recorded. Surgeries None recorded. Imaging MRI, lumbar spine, w/o contrast - CORRECTED ORDER Per Yony Butterfield [address] [facility], [address], [place], [address], 14:31:33 Medication Orders Ativan 0.5 mg tablet [address] [facility], [address] [place] [address], [facility] 7, [place], [address], 15:43:57 Al hyd-Mg tr-alg ac-sod bicarb 80 mg-14.2 mg chewable tablet [address] [facility], [address] [place] [address], [facility] 7, [place], [address], 19:30:55 Patient TargetsNo targets recorded. Patient Instructions Encounter Date Encounter Id Patient Instructions Last Modified By Organization Details Last Modified Time 04/18/2023 [id number] Raffy Expect a call from [facility] MRI within the next week labs drawn today CBC and liver kidney function testing will mail home results expect a call from [facility] neurology try ibuprofen (take with tylenol) take 200mg three times a day for a week, its ok to go up to 400mg three times a day- take with food. follow-up and 2 to 3 weeks [facility] [email or web address] Not available 04/18/2023 16:46:41 Reason for Referral Neurologist Referral for Wekrystal goncalves of right lower limb new RLE weakness. Referring Physician: Yony Butterfield, Family Medicine, Encounter Date: 04/18/2023 Results Created Date Observation Date Name Description Value Unit Range Abnormal Flag LastModifiedBy Organization Detail LastModifiedTime 04/18/19 24 04/18/2023 ESR ESR 21 mm/HR 0-20 high Not Available [address] [place], [address] 04/18/2023 20:19:57 04/18/19 24 04/18/2023 COMPL ETE BLOOD COUNT W/DIF F WBC 7.87 10_3/ uL 4.4-10 .8 normal Not Available [address] [place], [address] 04/18/2023 20:21:05 04/18/19 24 04/18/2023 COMPL ETE BLOOD COUNT W/DIF F RBC 4.60 10_6/ uL 4.36-5 .78 normal Not Available [address] [place], [address] 04/18/2023 20:21:05 04/18/19 24 04/18/2023 COMPL ETE BLOOD COUNT W/DIF F HGB 13.8 g/dL 13.5-1 7.5 normal Not Available [address] [place], [address] 04/18/2023 20:21:05 04/18/19 24 04/18/2023 COMPL ETE BLOOD COUNT W/DIF F HCT 40.7 % 40.0-5 0.0 normal Not Available [address] [place], [address] 04/18/2023 20:21:05 04/18/19 24 04/18/2023 COMPL ETE BLOOD COUNT W/DIF F MCV 89 fL 80-95 normal Not Available Wilsonvilleterence shay [address] [place], [address] 04/18/2023 20:21:05 04/18/19 24 04/18/2023 COMPL ETE BLOOD COUNT W/DIF F MCH 30.0 pg 27.0-3 3.0 normal Not Available [address] [place], [address] 04/18/2023 20:21:05 04/18/19 24 04/18/2023 COMPL ETE BLOOD COUNT W/DIF F MCHC 33.9 % 32.0-3 6.0 normal Not Available [address] [place], [address] 04/18/2023 20:21:05 04/18/19 24 04/18/2023 COMPL ETE BLOOD COUNT W/DIF F RDW 12.6 % 11.8-1 4.1 normal Not Available [address] [place], [address] 04/18/2023 20:21:05 04/18/19 24 04/18/2023 COMPL ETE BLOOD COUNT W/DIF F platelet count 228 10_3/ uL 130-40 0 normal Not Available [address] [place], [address] 04/18/2023 20:21:05 04/18/19 24 04/18/2023 COMPL ETE BLOOD COUNT W/DIF F MPV 9.3 fL 8.0-11 .0 normal Not Available [address] [place], [address] 04/18/2023 20:21:05 04/18/19 24 04/18/2023 COMPL ETE BLOOD COUNT W/DIF F neutrophils % 77.0 Not Available [address] [place], [address] 04/18/2023 20:21:05 04/18/19 24 04/18/2023 COMPL ETE BLOOD COUNT W/DIF F lymphocytes % 12.1 Not Available [address] [place], [address] 04/18/2023 20:21:05 04/18/19 24 04/18/2023 COMPL ETE BLOOD COUNT W/DIF F monocytes % 7.8 Not Available Blayne [email or web address] [place], [address] 04/18/2023 20:21:05 04/18/19 24 04/18/2023 COMPL ETE BLOOD COUNT W/DIF F eosinophils % 1.7 Not Available [address] [place], [address] 04/18/2023 20:21:05 04/18/19 24 04/18/2023 COMPL ETE BLOOD COUNT W/DIF F basophils % 0.3 Not Available Blayneji [email or web address] [place], [address] 04/18/2023 20:21:05 04/18/19 24 04/18/2023 COMPL ETE BLOOD COUNT W/DIF F immature grans % 1.1 Not Available [address] [place], [address] 04/18/2023 20:21:05 04/18/19 24 04/18/2023 COMPL ETE BLOOD COUNT W/DIF F nucleated RBC 0.0 % 0.0-0. 3 normal Not Available [address] [place], [address] 04/18/2023 20:21:05 04/18/19 24 04/18/2023 COMPL ETE BLOOD COUNT W/DIF F absolute neutrophil count 6.07 10_3/ uL 1.2-6. 7 normal Not Available [address] [place], [address] 04/18/2023 20:21:05 04/18/19 24 04/18/2023 COMPL ETE BLOOD COUNT W/DIF F absolute lymphocyte count 0.95 10_3/ uL 1.2-3. 4 low Not Available [address] [place], [address] 04/18/2023 20:21:05 04/18/19 24 04/18/2023 COMPL ETE BLOOD COUNT W/DIF F absolute monocyte count 0.61 10_3/ uL 0.1-0. 8 normal Not Available [address] [place], [address] 04/18/2023 20:21:05 04/18/19 24 04/18/2023 COMPL ETE BLOOD COUNT W/DIF F absolute eosinophil count 0.13 10_3/ uL 0.0-0. 7 normal Not Available [address] [place], [address] 04/18/2023 20:21:05 04/18/19 24 04/18/2023 COMPL ETE BLOOD COUNT W/DIF F absolute basophil count 0.02 10_3/ uL 0.0-0. 2 normal Not Available [address] [place], [address] 04/18/2023 20:21:05 04/18/19 24 04/18/2023 COMPR EHENS VAN METAB OLIC PANEL calcium 9.3 mg/dL 8.5-10 .1 normal Not Available [address] [place], [address] 04/18/2023 20:46:04 04/18/19 24 04/18/2023 COMPR EHENS VAN METAB OLIC PANEL glucose 107 mg/dL 74-106 high Not Available [address] [place], [address] 04/18/2023 20:46:04 04/18/19 24 04/18/2023 COMPR EHENS VAN METAB OLIC PANEL BUN 16 mg/dL 7-18 normal Not Available [address] [place], [address] 04/18/2023 20:46:04 04/18/19 24 04/18/2023 COMPR EHENS VAN METAB OLIC PANEL creatinine 1.3 mg/dL 0.70-1 .30 normal Not Available [address] [place], [address] 04/18/2023 20:46:04 04/18/19 24 04/18/2023 COMPR EHENS VAN METAB OLIC PANEL estimated GFR 61.35 mL/min /1.73m 2 Not Available [address] [place], [address] 04/18/2023 20:46:04 04/18/19 24 04/18/2023 COMPR EHENS VAN METAB OLIC PANEL total protein 8.0 g/dL 6.4-8. 2 normal Not Available [address] [place], [address] 04/18/2023 20:46:04 04/18/19 24 04/18/2023 COMPR EHENS VAN METAB OLIC PANEL albumin 4.0 g/dL 3.4-5. 0 normal Not Available [address] [place], [address] 04/18/2023 20:46:04 04/18/19 24 04/18/2023 COMPR EHENS VAN METAB OLIC PANEL bilirubin, total 0.4 mg/dL 0.2-1. 0 normal Not Available [address] [place], [address] 04/18/2023 20:46:04 04/18/19 24 04/18/2023 COMPR EHENS VAN METAB OLIC PANEL alk phos 74 U/L 46-116 normal Not Available [address] [place], [address] 04/18/2023 20:46:04 04/18/19 24 04/18/2023 COMPR EHENS VAN METAB OLIC PANEL sodium 141 mmol/ L 136-14 5 normal Not Available [address] [place], [address] 04/18/2023 20:46:04 04/18/19 24 04/18/2023 COMPR EHENS VAN METAB OLIC PANEL potassium 4.0 mmol/ L 3.5-5. 1 normal Not Available [address] [place], [address] 04/18/2023 20:46:04 04/18/19 24 04/18/2023 COMPR EHENS VAN METAB OLIC PANEL chloride 104 mmol/ L 98-107 normal Not Available [address] [place], [address] 04/18/2023 20:46:04 04/18/19 24 04/18/2023 COMPR EHENS VAN METAB OLIC PANEL CO2 26.7 mmol/ L 21.0-3 2.0 normal Not Available [address] [place], [address] 04/18/2023 20:46:04 04/18/19 24 04/18/2023 COMPR EHENS VAN METAB OLIC PANEL anion gap 10.3 mmol/ L 3-11 normal Not Available [address] [place], [address] 04/18/2023 20:46:04 04/18/19 24 04/18/2023 COMPR EHENS VAN METAB OLIC PANEL AST 33 U/L 15-37 normal Not Available [address] [place], [address] 04/18/2023 20:46:04 04/18/19 24 04/18/2023 COMPR EHENS VAN METAB OLIC PANEL ALT 48 U/L 16-63 normal Not Available [address] [place], [address] 04/18/2023 20:46:04 04/18/19 24 04/19/2023 CRP, HIGH SENSI TIVIT Y CRP, high sensitivity 5.14 mg/L see note Not Available [address] [place], [address] 04/20/2023 08:43:21 04/24/19 24 04/24/2023 COMPL ETE BLOOD COUNT W/DIF F WBC 8.14 10_3/ uL 4.4-10 .8 normal Not Available [address] [place], [address] 04/24/2023 23:21:46 04/24/19 24 04/24/2023 COMPL ETE BLOOD COUNT W/DIF F RBC 4.55 10_6/ uL 4.36-5 .78 normal Not Available [address] [place], [address] 04/24/2023 23:21:46 04/24/19 24 04/24/2023 COMPL ETE BLOOD COUNT W/DIF F HGB 13.8 g/dL 13.5-1 7.5 normal Not Available [address] [place], [address] 04/24/2023 23:21:46 04/24/19 24 04/24/2023 COMPL ETE BLOOD COUNT W/DIF F HCT 39.4 % 40.0-5 0.0 low Not Available [address] [place], [address] 04/24/2023 23:21:46 04/24/19 24 04/24/2023 COMPL ETE BLOOD COUNT W/DIF F MCV 87 fL 80-95 normal Not Available [address] [place], [address] 04/24/2023 23:21:46 04/24/19 24 04/24/2023 COMPL ETE BLOOD COUNT W/DIF F MCH 30.3 pg 27.0-3 3.0 normal Not Available [address] [place], [address] 04/24/2023 23:21:46 04/24/19 24 04/24/2023 COMPL ETE BLOOD COUNT W/DIF F MCHC 35.0 % 32.0-3 6.0 normal Not Available [address] [place], [address] 04/24/2023 23:21:46 04/24/19 24 04/24/2023 COMPL ETE BLOOD COUNT W/DIF F RDW 12.6 % 11.8-1 4.1 normal Not Available [address] [place], [address] 04/24/2023 23:21:46 04/24/19 24 04/24/2023 COMPL ETE BLOOD COUNT W/DIF F platelet count 202 10_3/ uL 130-40 0 normal Not Available [address] [place], [address] 04/24/2023 23:21:46 04/24/19 24 04/24/2023 COMPL ETE BLOOD COUNT W/DIF F MPV 8.9 fL 8.0-11 .0 normal Not Available [address] [place], [address] 04/24/2023 23:21:46 04/24/19 24 04/24/2023 COMPL ETE BLOOD COUNT W/DIF F neutrophils % 77.0 Not Available [address] [place], [address] 04/24/2023 23:21:46 04/24/19 24 04/24/2023 COMPL ETE BLOOD COUNT W/DIF F lymphocytes % 10.4 Not Available [address] [place], [address] 04/24/2023 23:21:46 04/24/19 24 04/24/2023 COMPL ETE BLOOD COUNT W/DIF F monocytes % 8.7 Not Available [facility] [address] [place], [address] 04/24/2023 23:21:46 04/24/19 24 04/24/2023 COMPL ETE BLOOD COUNT W/DIF F eosinophils % 1.2 Not Available [address] [place], [address] 04/24/2023 23:21:46 04/24/19 24 04/24/2023 COMPL ETE BLOOD COUNT W/DIF F basophils % 0.5 Not Available [address] [place], [address] 04/24/2023 23:21:46 04/24/19 24 04/24/2023 COMPL ETE BLOOD COUNT W/DIF F immature grans % 2.2 Not Available [address] [place], [address] 04/24/2023 23:21:46 04/24/19 24 04/24/2023 COMPL ETE BLOOD COUNT W/DIF F nucleated RBC 0.0 % 0.0-0. 3 normal Not Available [address] [place], [address] 04/24/2023 23:21:46 04/24/19 24 04/24/2023 COMPL ETE BLOOD COUNT W/DIF F absolute neutrophil count 6.26 10_3/ uL 1.2-6. 7 normal Not Available [address] [place], [address] 04/24/2023 23:21:46 04/24/19 24 04/24/2023 COMPL ETE BLOOD COUNT W/DIF F absolute lymphocyte count 0.85 10_3/ uL 1.2-3. 4 low Not Available [address] [place], [address] 04/24/2023 23:21:46 04/24/19 24 04/24/2023 COMPL ETE BLOOD COUNT W/DIF F absolute monocyte count 0.71 10_3/ uL 0.1-0. 8 normal Not Available [address] [place], [address] 04/24/2023 23:21:46 02/18/20 24 04/24/2023 COMPL ETE BLOOD COUNT W/DIF F absolute eosinophil count 0.10 10_3/ uL 0.0-0. 7 normal Not Available [address] [place], [address] 04/24/2023 23:21:46 04/24/19 24 04/24/2023 COMPL ETE BLOOD COUNT W/DIF F absolute basophil count 0.04 10_3/ uL 0.0-0. 2 normal Not Available [address] [place], [address] 04/24/2023 23:21:46 04/24/19 24 04/24/2023 COMPR EHENS VAN METAB OLIC PANEL calcium 9.4 mg/dL 8.5-10 .1 normal Not Available [address] [place], [address] 04/24/2023 23:45:45 04/24/19 24 04/24/2023 COMPR EHENS VAN METAB OLIC PANEL glucose 117 mg/dL 74-106 high Not Available [address] [place], [address] 04/24/2023 23:45:45 04/24/19 24 04/24/2023 COMPR EHENS VAN METAB OLIC PANEL BUN 18 mg/dL 7-18 normal Not Available [address] [place], [address] 04/24/2023 23:45:45 04/24/19 24 04/24/2023 COMPR EHENS VAN METAB OLIC PANEL creatinine 1.3 mg/dL 0.70-1 .30 normal Not Available [address] [place], [address] 04/24/2023 23:45:45 04/24/19 24 04/24/2023 COMPR EHENS VAN METAB OLIC PANEL estimated GFR 61.35 mL/min /1.73m 2 Not Available [address] [place], [address] 04/24/2023 23:45:45 04/24/19 24 04/24/2023 COMPR EHENS VAN METAB OLIC PANEL total protein 7.8 g/dL 6.4-8. 2 normal Not Available [address] [place], [address] 04/24/2023 23:45:45 04/24/19 24 04/24/2023 COMPR EHENS VAN METAB OLIC PANEL albumin 3.9 g/dL 3.4-5. 0 normal Not Available [address] [place], [address] 04/24/2023 23:45:45 04/24/19 24 04/24/2023 COMPR EHENS VAN METAB OLIC PANEL bilirubin, total 0.4 mg/dL 0.2-1. 0 normal Not Available [address] [place], [address] 04/24/2023 23:45:45 04/24/19 24 04/24/2023 COMPR EHENS VAN METAB OLIC PANEL alk phos 92 U/L 46-116 normal Not Available [address] [place], [address] 04/24/2023 23:45:45 04/24/19 24 04/24/2023 COMPR EHENS VAN METAB OLIC PANEL sodium 140 mmol/ L 136-14 5 normal Not Available [address] [place], [address] 04/24/2023 23:45:45 04/24/19 24 04/24/2023 COMPR EHENS VAN METAB OLIC PANEL potassium 3.8 mmol/ L 3.5-5. 1 normal Not Available [address] [place], [address] 04/24/2023 23:45:45 04/24/19 24 04/24/2023 COMPR EHENS VAN METAB OLIC PANEL chloride 99 mmol/ L 98-107 normal Not Available [address] [place], [address] 04/24/2023 23:45:45 04/24/19 24 04/24/2023 COMPR EHENS VAN METAB OLIC PANEL CO2 28.6 mmol/ L 21.0-3 2.0 normal Not Available [address] [place], [address] 04/24/2023 23:45:45 04/24/19 24 04/24/2023 COMPR EHENS VAN METAB OLIC PANEL anion gap 12.4 mmol/ L 3-11 high Not Available [address] [place], [address] 04/24/2023 23:45:45 04/24/19 24 04/24/2023 COMPR EHENS VAN METAB OLIC PANEL AST 41 U/L 15-37 high Not Available [address] [place], [address] 04/24/2023 23:45:45 04/24/19 24 04/24/2023 COMPR EHENS VAN METAB OLIC PANEL ALT 59 U/L 16-63 normal Not Available [address] [place], [address] 04/24/2023 23:45:45 04/24/19 24 04/24/2023 TSH (W/RE F FT4) TSH (w/ref FT4) 8.35 uIU/m L 0.36-3 .74 high Not Available [address] [place], [address] 04/24/2023 23:45:45 04/24/19 24 04/24/2023 TSH (W/RE F FT4) TSH (w/ref FT4) 8.35 uIU/m L 0.36-3 .74 high Not Available [address] [place], [address] 04/25/2023 00:04:46 04/24/19 24 04/25/2023 FREE T4 free T4 0.85 NG/dL 0.76-1 .46 normal Not Available [address] [place], [address] 04/25/2023 00:04:46 05/30/19 24 05/30/2023 COMPL ETE BLOOD COUNT W/DIF F WBC 9.42 10_3/ uL 4.4-10 .8 normal Not Available [address] [place], [address] 05/30/2023 11:37:16 05/30/19 24 05/30/2023 COMPL ETE BLOOD COUNT W/DIF F RBC 4.06 10_6/ uL 4.36-5 .78 low Not Available [address] [place], [address] 05/30/2023 11:37:16 05/30/19 24 05/30/2023 COMPL ETE BLOOD COUNT W/DIF F HGB 12.9 g/dL 13.5-1 7.5 low Not Available [address] [place], [address] 05/30/2023 11:37:16 05/30/19 24 05/30/2023 COMPL ETE BLOOD COUNT W/DIF F HCT 37.3 % 40.0-5 0.0 low Not Available [address] [place], [address] 05/30/2023 11:37:16 05/30/19 24 05/30/2023 COMPL ETE BLOOD COUNT W/DIF F MCV 92 fL 80-95 normal Not Available [address] [place], [address] 05/30/2023 11:37:16 05/30/19 24 05/30/2023 COMPL ETE BLOOD COUNT W/DIF F MCH 31.8 pg 27.0-3 3.0 normal Not Available [address] [place], [address] 05/30/2023 11:37:16 05/30/19 24 05/30/2023 COMPL ETE BLOOD COUNT W/DIF F MCHC 34.6 % 32.0-3 6.0 normal Not Available [address] [place], [address] 05/30/2023 11:37:16 05/30/19 24 05/30/2023 COMPL ETE BLOOD COUNT W/DIF F RDW 13.5 % 11.8-1 4.1 normal Not Available [address] [place], [address] 05/30/2023 11:37:16 05/30/19 24 05/30/2023 COMPL ETE BLOOD COUNT W/DIF F platelet count 175 10_3/ uL 130-40 0 normal Not Available [address] [place], [address] 05/30/2023 11:37:16 05/30/19 24 05/30/2023 COMPL ETE BLOOD COUNT W/DIF F MPV 8.5 fL 8.0-11 .0 normal Not Available [address] [place], [address] 05/30/2023 11:37:16 05/30/19 24 05/30/2023 COMPL ETE BLOOD COUNT W/DIF F neutrophils % 84.1 Not Available [address] [place], [address] 05/30/2023 11:37:16 05/30/19 24 05/30/2023 COMPL ETE BLOOD COUNT W/DIF F lymphocytes % 5.7 Not Available [address] [place], [address] 05/30/2023 11:37:16 05/30/19 24 05/30/2023 COMPL ETE BLOOD COUNT W/DIF F monocytes % 5.0 Not Available [address] [place], [address] 05/30/2023 11:37:16 05/30/19 24 05/30/2023 COMPL ETE BLOOD COUNT W/DIF F eosinophils % 0.0 Not Available [address] [place], [address] 05/30/2023 11:37:16 05/30/19 24 05/30/2023 COMPL ETE BLOOD COUNT W/DIF F basophils % 0.3 Not Available [address] [place], [address] 05/30/2023 11:37:16 05/30/19 24 05/30/2023 COMPL ETE BLOOD COUNT W/DIF F immature grans % 4.9 Not Available [address] [place], [address] 05/30/2023 11:37:16 05/30/19 24 05/30/2023 COMPL ETE BLOOD COUNT W/DIF F nucleated RBC 0.0 % 0.0-0. 3 normal Not Available [address] [place], [address] 05/30/2023 11:37:16 05/30/19 24 05/30/2023 COMPL ETE BLOOD COUNT W/DIF F absolute neutrophil count 7.92 10_3/ uL 1.2-6. 7 high Not Available [address] [place], [address] 05/30/2023 11:37:16 05/30/19 24 05/30/2023 COMPL ETE BLOOD COUNT W/DIF F absolute lymphocyte count 0.54 10_3/ uL 1.2-3. 4 low Not Available [address] [place], [address] 05/30/2023 11:37:16 05/30/19 24 05/30/2023 COMPL ETE BLOOD COUNT W/DIF F absolute monocyte count 0.47 10_3/ uL 0.1-0. 8 normal Not Available [address] [place], [address] 05/30/2023 11:37:16 05/30/19 24 05/30/2023 COMPL ETE BLOOD COUNT W/DIF F absolute eosinophil count 0.00 10_3/ uL 0.0-0. 7 normal Not Available [address] [place], [address] 05/30/2023 11:37:16 05/30/19 24 05/30/2023 COMPL ETE BLOOD COUNT W/DIF F absolute basophil count 0.03 10_3/ uL 0.0-0. 2 normal Not Available [address] [place], [address] 05/30/2023 11:37:16 05/30/19 24 05/30/2023 COMPR EHENS VAN METAB OLIC PANEL calcium 9.0 mg/dL 8.5-10 .1 normal Not Available [address] [place], [address] 05/30/2023 11:53:16 05/30/19 24 05/30/2023 COMPR EHENS VAN METAB OLIC PANEL glucose 118 mg/dL 74-106 high Not Available [address] [place], [address] 05/30/2023 11:53:16 05/30/19 24 05/30/2023 COMPR EHENS VAN METAB OLIC PANEL BUN 23 mg/dL 7-18 high Not Available [address] [place], [address] 05/30/2023 11:53:16 05/30/19 24 05/30/2023 COMPR EHENS VAN METAB OLIC PANEL creatinine 1.0 mg/dL 0.70-1 .30 normal Not Available [address] [place], [address] 05/30/2023 11:53:16 05/30/19 24 05/30/2023 COMPR EHENS VAN METAB OLIC PANEL estimated GFR 84.05 mL/min /1.73m 2 Not Available [address] [place], [address] 05/30/2023 11:53:16 05/30/19 24 05/30/2023 COMPR EHENS VAN METAB OLIC PANEL total protein 7.5 g/dL 6.4-8. 2 normal Not Available [address] [place], [address] 05/30/2023 11:53:16 05/30/19 24 05/30/2023 COMPR EHENS VAN METAB OLIC PANEL albumin 3.5 g/dL 3.4-5. 0 normal Not Available [address] [place], [address] 05/30/2023 11:53:16 05/30/19 24 05/30/2023 COMPR EHENS VAN METAB OLIC PANEL bilirubin, total 0.4 mg/dL 0.2-1. 0 normal Not Available [address] [place], [address] 05/30/2023 11:53:16 05/30/19 24 05/30/2023 COMPR EHENS VAN METAB OLIC PANEL alk phos 65 U/L 46-116 normal Not Available [address] [place], [address] 05/30/2023 11:53:16 05/30/19 24 05/30/2023 COMPR EHENS VAN METAB OLIC PANEL sodium 137 mmol/ L 136-14 5 normal Not Available [address] [place], [address] 05/30/2023 11:53:16 05/30/19 24 05/30/2023 COMPR EHENS VAN METAB OLIC PANEL potassium 4.7 mmol/ L 3.5-5. 1 normal Not Available [address] [place], [address] 05/30/2023 11:53:16 05/30/19 24 05/30/2023 COMPR EHENS VAN METAB OLIC PANEL chloride 100 mmol/ L 98-107 normal Not Available [address] [place], [address] 05/30/2023 11:53:16 05/30/19 24 05/30/2023 COMPR EHENS VAN METAB OLIC PANEL CO2 29.9 mmol/ L 21.0-3 2.0 normal Not Available [address] [place], [address] 05/30/2023 11:53:16 05/30/19 24 05/30/2023 COMPR EHENS VAN METAB OLIC PANEL anion gap 7.1 mmol/ L 3-11 normal Not Available [address] [place], [address] 05/30/2023 11:53:16 05/30/19 24 05/30/2023 COMPR EHENS VAN METAB OLIC PANEL AST 31 U/L 15-37 normal Not Available [address] [place], [address] 05/30/2023 11:53:16 05/30/19 24 05/30/2023 COMPR EHENS VAN METAB OLIC PANEL ALT 61 U/L 16-63 normal Not Available [address] [place], [address] 05/30/2023 11:53:16 06/27/19 24 06/27/2023 rapid strep group A, throa t Strep negati ve Not Available [address], [place], [address], 06/27/2023 19:21:06 07/04/19 24 07/04/2023 COMPL ETE BLOOD COUNT W/DIF F WBC 7.29 10_3/ uL 4.4-10 .8 normal Not Available [address] [place], [address] 07/04/2023 09:35:26 07/04/19 24 07/04/2023 COMPL ETE BLOOD COUNT W/DIF F RBC 3.70 10_6/ uL 4.36-5 .78 low Not Available [address] [place], [address] 07/04/2023 09:35:26 07/04/19 24 07/04/2023 COMPL ETE BLOOD COUNT W/DIF F HGB 11.9 g/dL 13.5-1 7.5 low Not Available [address] [place], [address] 07/04/2023 09:35:26 07/04/19 24 07/04/2023 COMPL ETE BLOOD COUNT W/DIF F HCT 34.6 % 40.0-5 0.0 low Not Available [address] [place], [address] 07/04/2023 09:35:26 07/04/19 24 07/04/2023 COMPL ETE BLOOD COUNT W/DIF F MCV 94 fL 80-95 normal Not Available Zee shay [address] [place], [address] 07/04/2023 09:35:26 07/04/19 24 07/04/2023 COMPL ETE BLOOD COUNT W/DIF F MCH 32.2 pg 27.0-3 3.0 normal Not Available [address] [place], [address] 07/04/2023 09:35:26 07/04/19 24 07/04/2023 COMPL ETE BLOOD COUNT W/DIF F MCHC 34.4 % 32.0-3 6.0 normal Not Available [address] [place], [address] 07/04/2023 09:35:26 07/04/19 24 07/04/2023 COMPL ETE BLOOD COUNT W/DIF F RDW 15.3 % 11.8-1 4.1 high Not Available [address] [place], [address] 07/04/2023 09:35:26 07/04/19 24 07/04/2023 COMPL ETE BLOOD COUNT W/DIF F platelet count 163 10_3/ uL 130-40 0 normal Not Available [address] [place], [address] 07/04/2023 09:35:26 07/04/19 24 07/04/2023 COMPL ETE BLOOD COUNT W/DIF F MPV 8.3 fL 8.0-11 .0 normal Not Available [address] [place], [address] 07/04/2023 09:35:26 07/04/19 24 07/04/2023 COMPL ETE BLOOD COUNT W/DIF F neutrophils % 78.1 Not Available [address] [place], [address] 07/04/2023 09:35:26 07/04/19 24 07/04/2023 COMPL ETE BLOOD COUNT W/DIF F lymphocytes % 8.2 Not Available [address] [place], [address] 07/04/2023 09:35:26 07/04/19 24 07/04/2023 COMPL ETE BLOOD COUNT W/DIF F monocytes % 8.4 Not Available [address] [place], [address] 07/04/2023 09:35:26 07/04/19 24 07/04/2023 COMPL ETE BLOOD COUNT W/DIF F eosinophils % 0.0 Not Available [address] [place], [address] 07/04/2023 09:35:26 07/04/19 24 07/04/2023 COMPL ETE BLOOD COUNT W/DIF F basophils % 0.4 Not Available [address] [place], [address] 07/04/2023 09:35:26 07/04/19 24 07/04/2023 COMPL ETE BLOOD COUNT W/DIF F immature grans % 4.9 Not Available [address] [place], [address] 07/04/2023 09:35:26 07/04/19 24 07/04/2023 COMPL ETE BLOOD COUNT W/DIF F nucleated RBC 0.0 % 0.0-0. 3 normal Not Available [address] [place], [address] 07/04/2023 09:35:26 07/04/19 24 07/04/2023 COMPL ETE BLOOD COUNT W/DIF F absolute neutrophil count 5.69 10_3/ uL 1.2-6. 7 normal Not Available [address] [place], [address] 07/04/2023 09:35:26 07/04/19 24 07/04/2023 COMPL ETE BLOOD COUNT W/DIF F absolute lymphocyte count 0.60 10_3/ uL 1.2-3. 4 low Not Available [address] [place], [address] 07/04/2023 09:35:26 07/04/19 24 07/04/2023 COMPL ETE BLOOD COUNT W/DIF F absolute monocyte count 0.61 10_3/ uL 0.1-0. 8 normal Not Available [address] [place], [address] 07/04/2023 09:35:26 07/04/19 24 07/04/2023 COMPL ETE BLOOD COUNT W/DIF F absolute eosinophil count 0.00 10_3/ uL 0.0-0. 7 normal Not Available [address] [place], [address] 07/04/2023 09:35:26 07/04/19 24 07/04/2023 COMPL ETE BLOOD COUNT W/DIF F absolute basophil count 0.03 10_3/ uL 0.0-0. 2 normal Not Available [address] [place], [address] 07/04/2023 09:35:26 04/29/20 24 07/04/2023 COMPR EHENS VAN METAB OLIC PANEL calcium 8.8 mg/dL 8.5-10 .1 normal Not Available [address] [place], [address] 07/04/2023 10:15:28 07/04/19 24 07/04/2023 COMPR EHENS VAN METAB OLIC PANEL glucose 119 mg/dL 74-106 high Not Available [address] [place], [address] 07/04/2023 10:15:28 07/04/19 24 07/04/2023 COMPR EHENS VAN METAB OLIC PANEL BUN 18 mg/dL 7-18 normal Not Available [address] [place], [address] 07/04/2023 10:15:28 07/04/19 24 07/04/2023 COMPR EHENS VAN METAB OLIC PANEL creatinine 1.1 mg/dL 0.70-1 .30 normal Not Available [address] [place], [address] 07/04/2023 10:15:28 07/04/19 24 07/04/2023 COMPR EHENS VAN METAB OLIC PANEL estimated GFR 74.96 mL/min /1.73m 2 Not Available [address] [place], [address] 07/04/2023 10:15:28 07/04/19 24 07/04/2023 COMPR EHENS VAN METAB OLIC PANEL total protein 6.9 g/dL 6.4-8. 2 normal Not Available [address] [place], [address] 07/04/2023 10:15:28 07/04/19 24 07/04/2023 COMPR EHENS VAN METAB OLIC PANEL albumin 3.4 g/dL 3.4-5. 0 normal Not Available [address] [place], [address] 07/04/2023 10:15:28 07/04/19 24 07/04/2023 COMPR EHENS VAN METAB OLIC PANEL bilirubin, total 0.5 mg/dL 0.2-1. 0 normal Not Available [address] [place], [address] 07/04/2023 10:15:28 07/04/19 24 07/04/2023 COMPR EHENS VAN METAB OLIC PANEL alk phos 59 U/L 46-116 normal Not Available [address] [place], [address] 07/04/2023 10:15:28 07/04/19 24 07/04/2023 COMPR EHENS VAN METAB OLIC PANEL sodium 144 mmol/ L 136-14 5 normal Not Available [address] [place], [address] 07/04/2023 10:15:28 07/04/19 24 07/04/2023 COMPR EHENS VAN METAB OLIC PANEL potassium 4.0 mmol/ L 3.5-5. 1 normal Not Available [address] [place], [address] 07/04/2023 10:15:28 07/04/19 24 07/04/2023 COMPR EHENS VAN METAB OLIC PANEL chloride 106 mmol/ L 98-107 normal Not Available [address] [place], [address] 07/04/2023 10:15:28 07/04/19 24 07/04/2023 COMPR EHENS VAN METAB OLIC PANEL CO2 28.8 mmol/ L 21.0-3 2.0 normal Not Available [address] [place], [address] 07/04/2023 10:15:28 07/04/19 24 07/04/2023 COMPR EHENS VAN METAB OLIC PANEL anion gap 9.2 mmol/ L 3-11 normal Not Available [address] [place], [address] 07/04/2023 10:15:28 07/04/19 24 07/04/2023 COMPR EHENS VAN METAB OLIC PANEL AST 38 U/L 15-37 high Not Available [address] [place], [address] 07/04/2023 10:15:28 07/04/19 24 07/04/2023 COMPR EHENS VAN METAB OLIC PANEL ALT 68 U/L 16-63 high Not Available [address] [place], [address] 07/04/2023 10:15:28 07/04/19 24 07/04/2023 MAGNE SIUM magnesium 1.9 mg/dL 1.8-2. 4 normal Not Available [address] [place], [address] 07/04/2023 10:15:28 07/04/19 24 07/04/2023 TSH TSH 2.01 uIU/m L 0.36-3 .74 normal Not Available [address] [place], [address] 07/04/2023 10:15:29 07/04/19 24 07/04/2023 FREE T4 free T4 0.82 NG/dL 0.76-1 .46 normal Not Available [address] [place], [address] 07/04/2023 10:15:29 07/17/19 24 07/17/2023 COMPR EHENS VAN METAB OLIC PANEL calcium 9.3 mg/dL 8.5-10 .1 normal Not Available [address] [place], [address] 07/17/2023 11:13:25 07/17/19 24 07/17/2023 COMPR EHENS VAN METAB OLIC PANEL glucose 112 mg/dL 74-106 high Not Available [address] [place], [address] 07/17/2023 11:13:25 07/17/19 24 07/17/2023 COMPR EHENS VAN METAB OLIC PANEL BUN 21 mg/dL 7-18 high Not Available [address] [place], [address] 07/17/2023 11:13:25 07/17/19 24 07/17/2023 COMPR EHENS VAN METAB OLIC PANEL creatinine 1.2 mg/dL 0.70-1 .30 normal Not Available [address] [place], [address] 07/17/2023 11:13:25 07/17/19 24 07/17/2023 COMPR EHENS VAN METAB OLIC PANEL estimated GFR 67.53 mL/min /1.73m 2 Not Available [address] [place], [address] 07/17/2023 11:13:25 07/17/19 24 07/17/2023 COMPR EHENS VAN METAB OLIC PANEL total protein 7.7 g/dL 6.4-8. 2 normal Not Available [address] [place], [address] 07/17/2023 11:13:25 07/17/19 24 07/17/2023 COMPR EHENS VAN METAB OLIC PANEL albumin 3.9 g/dL 3.4-5. 0 normal Not Available [address] [place], [address] 07/17/2023 11:13:25 07/17/19 24 07/17/2023 COMPR EHENS VAN METAB OLIC PANEL bilirubin, total 0.9 mg/dL 0.2-1. 0 normal Not Available [address] [place], [address] 07/17/2023 11:13:25 07/17/19 24 07/17/2023 COMPR EHENS VAN METAB OLIC PANEL alk phos 72 U/L 46-116 normal Not Available [address] [place], [address] 07/17/2023 11:13:25 07/17/19 24 07/17/2023 COMPR EHENS VAN METAB OLIC PANEL sodium 139 mmol/ L 136-14 5 normal Not Available [address] [place], [address] 07/17/2023 11:13:25 07/17/19 24 07/17/2023 COMPR EHENS VAN METAB OLIC PANEL potassium 3.6 mmol/ L 3.5-5. 1 normal Not Available [address] [place], [address] 07/17/2023 11:13:25 07/17/19 24 07/17/2023 COMPR EHENS VAN METAB OLIC PANEL chloride 101 mmol/ L 98-107 normal Not Available [address] [place], [address] 07/17/2023 11:13:25 07/17/19 24 07/17/2023 COMPR EHENS VAN METAB OLIC PANEL CO2 30.4 mmol/ L 21.0-3 2.0 normal Not Available [address] [place], [address] 07/17/2023 11:13:25 07/17/19 24 07/17/2023 COMPR EHENS VAN METAB OLIC PANEL anion gap 7.6 mmol/ L 3-11 normal Not Available [address] [place], [address] 07/17/2023 11:13:25 07/17/19 24 07/17/2023 COMPR EHENS VAN METAB OLIC PANEL AST 28 U/L 15-37 normal Not Available [address] [place], [address] 07/17/2023 11:13:25 07/17/19 24 07/17/2023 COMPR EHENS VAN METAB OLIC PANEL ALT 51 U/L 16-63 normal Not Available [address] [place], [address] 07/17/2023 11:13:25 07/17/19 24 07/17/2023 COMPL ETE BLOOD COUNT W/DIF F WBC 7.39 10_3/ uL 4.4-10 .8 normal Not Available [address] [place], [address] 07/17/2023 11:14:25 07/17/19 24 07/17/2023 COMPL ETE BLOOD COUNT W/DIF F RBC 3.87 10_6/ uL 4.36-5 .78 low Not Available [address] [place], [address] 07/17/2023 11:14:25 07/17/19 24 07/17/2023 COMPL ETE BLOOD COUNT W/DIF F HGB 12.6 g/dL 13.5-1 7.5 low Not Available [address] [place], [address] 07/17/2023 11:14:25 07/17/19 24 07/17/2023 COMPL ETE BLOOD COUNT W/DIF F HCT 36.0 % 40.0-5 0.0 low Not Available [address] [place], [address] 07/17/2023 11:14:25 07/17/19 24 07/17/2023 COMPL ETE BLOOD COUNT W/DIF F MCV 93 fL 80-95 normal Not Available [address] [place], [address] 07/17/2023 11:14:25 07/17/19 24 07/17/2023 COMPL ETE BLOOD COUNT W/DIF F MCH 32.6 pg 27.0-3 3.0 normal Not Available [address] [place], [address] 07/17/2023 11:14:25 07/17/19 24 07/17/2023 COMPL ETE BLOOD COUNT W/DIF F MCHC 35.0 % 32.0-3 6.0 normal Not Available [address] [place], [address] 07/17/2023 11:14:25 07/17/19 24 07/17/2023 COMPL ETE BLOOD COUNT W/DIF F RDW 15.6 % 11.8-1 4.1 high Not Available [address] [place], [address] 07/17/2023 11:14:25 07/17/19 24 07/17/2023 COMPL ETE BLOOD COUNT W/DIF F platelet count 233 10_3/ uL 130-40 0 normal Not Available [address] [place], [address] 07/17/2023 11:14:25 07/17/19 24 07/17/2023 COMPL ETE BLOOD COUNT W/DIF F MPV 8.4 fL 8.0-11 .0 normal Not Available [address] [place], [address] 07/17/2023 11:14:25 07/17/19 24 07/17/2023 COMPL ETE BLOOD COUNT W/DIF F neutrophils % 72.0 % Not Available [address] [place], [address] 07/17/2023 11:14:25 07/17/19 24 07/17/2023 COMPL ETE BLOOD COUNT W/DIF F lymphocytes % 11.0 % Not Available [address] [facility] [place], [address] 07/17/2023 11:14:25 07/17/1907/17/2023 COMPL ETE BLOOD COUNT W/DIF F monocytes % 10.1 % Not Available [address] [place], [address] 07/17/2023 11:14:25 07/17/1907/17/2023 COMPL ETE BLOOD COUNT W/DIF F eosinophils % 0.0 % Not Available [address] [place], [address] 07/17/2023 11:14:25 07/17/1907/17/2023 COMPL ETE BLOOD COUNT W/DIF F basophils % 0.5 % Not Available [address] [place], [address] 07/17/2023 11:14:25 07/17/1907/17/2023 COMPL ETE BLOOD COUNT W/DIF F immature grans % 6.4 % Not Available [address] [place], [address] 07/17/2023 11:14:25 07/17/1907/17/2023 COMPL ETE BLOOD COUNT W/DIF F nucleated RBC 0.0 % 0.0-0. 3 normal Not Available [address] [place], [address] 07/17/2023 11:14:25 07/17/1907/17/2023 COMPL ETE BLOOD COUNT W/DIF F absolute neutrophil count 5.32 10_3/ uL 1.2-6. 7 normal Not Available [address] [facility] [place], [address] 07/17/2023 11:14:25 07/17/19 24 07/17/2023 COMPL ETE BLOOD COUNT W/DIF F absolute lymphocyte count 0.81 10_3/ uL 1.2-3. 4 low Not Available [address] [place], [address] 07/17/2023 11:14:25 07/17/19 24 07/17/2023 COMPL ETE BLOOD COUNT W/DIF F absolute monocyte count 0.75 10_3/ uL 0.1-0. 8 normal Not Available [address] [place], [address] 07/17/2023 11:14:25 07/17/19 24 07/17/2023 COMPL ETE BLOOD COUNT W/DIF F absolute eosinophil count 0.00 10_3/ uL 0.0-0. 7 normal Not Available [address] [place], [address] 07/17/2023 11:14:25 07/17/19 24 07/17/2023 COMPL ETE BLOOD COUNT W/DIF F absolute basophil count 0.04 10_3/ uL 0.0-0. 2 normal Not Available [address] [place], [address] 07/17/2023 11:14:25 07/17/19 24 07/17/2023 COMPL ETE BLOOD COUNT W/DIF F diff comment Agrees w/ Instru ment Not Available [address] [place], [address] 07/17/2023 11:14:25 07/17/19 24 07/17/2023 COMPL ETE BLOOD COUNT W/DIF F RBC morphology Normal Not Available [address] [place], [address] 07/17/2023 11:14:25 07/17/19 24 07/17/2023 COVID /FLU/ RSV PCR source Nasoph arynx Not Available [address] [place], [address] 07/17/2023 12:07:29 07/17/19 24 07/17/2023 COVID /FLU/ RSV PCR covid-19 PCR Negati ve negati ve Not Available [address] [place], [address] 07/17/2023 12:07:29 07/17/19 24 07/17/2023 COVID /FLU/ RSV PCR influenza A PCR Negati ve negati ve Not Available [address] [place], [address] 07/17/2023 12:07:29 07/17/19 24 07/17/2023 COVID /FLU/ RSV PCR influenza B PCR Negati ve negati ve Not Available [address] [place], [address] 07/17/2023 12:07:29 07/17/19 24 07/17/2023 COVID /FLU/ RSV PCR RSV PCR Negati ve negati ve Not Available [address] [place], [address] 07/17/2023 12:07:29 07/17/19 24 07/18/2023 EXPAN DED RESPI RATOR Y VIRAL PCR parainfluenz a type1 RNA result Negati ve negati ve Not Available [address] [place], [address] 07/19/2023 08:30:26 07/17/19 24 07/18/2023 EXPAN DED RESPI RATOR Y VIRAL PCR parainfluenz a type2 RNA result Negati ve negati ve Not Available [address] [place], [address] 07/19/2023 08:30:26 07/17/19 24 07/18/2023 EXPAN DED RESPI RATOR Y VIRAL PCR parainfluenz a type3 RNA result Negati ve negati ve Not Available [address] [place], [address] 07/19/2023 08:30:26 07/17/19 24 07/18/2023 EXPAN DED RESPI RATOR Y VIRAL PCR parainfluenz a type4 RNA result Negati ve negati ve Not Available [address] [place], [address] 07/19/2023 08:30:26 05/12/07/18/2023 EXPAN DED RESPI RATOR Y VIRAL PCR adenovirus DNA result Negati ve negati ve Not Available [address] [place], [address] 07/19/2023 08:30:26 07/17/19 24 07/18/2023 EXPAN DED RESPI RATOR Y VIRAL PCR metapneumovi jane RNA result Negati ve negati ve Not Available [address] [place], [address] 07/19/2023 08:30:26 07/17/19 24 07/18/2023 EXPAN DED RESPI RATOR Y VIRAL PCR rhinovirus RNA result Negati ve negati ve Not Available [address] [place], [address] 07/19/2023 08:30:26 07/25/19 24 07/25/2023 COMPL ETE BLOOD COUNT W/DIF F WBC 8.38 10_3/ uL 4.4-10 .8 normal Not Available [address] [place], [address] 07/25/2023 15:15:51 07/25/19 24 07/25/2023 COMPL ETE BLOOD COUNT W/DIF F RBC 3.64 10_6/ uL 4.36-5 .78 low Not Available [address] [place], [address] 07/25/2023 15:15:51 07/25/19 24 07/25/2023 COMPL ETE BLOOD COUNT W/DIF F HGB 11.6 g/dL 13.5-1 7.5 low Not Available [address] [place], [address] 07/25/2023 15:15:51 07/25/19 24 07/25/2023 COMPL ETE BLOOD COUNT W/DIF F HCT 33.9 % 40.0-5 0.0 low Not Available [address] [place], [address] 07/25/2023 15:15:51 07/25/19 24 07/25/2023 COMPL ETE BLOOD COUNT W/DIF F MCV 93 fL 80-95 normal Not Available [address] [place], [address] 07/25/2023 15:15:51 07/25/19 24 07/25/2023 COMPL ETE BLOOD COUNT W/DIF F MCH 31.9 pg 27.0-3 3.0 normal Not Available [address] [place], [address] 07/25/2023 15:15:51 07/25/19 24 07/25/2023 COMPL ETE BLOOD COUNT W/DIF F MCHC 34.2 % 32.0-3 6.0 normal Not Available [address] [place], [address] 07/25/2023 15:15:51 07/25/19 24 07/25/2023 COMPL ETE BLOOD COUNT W/DIF F RDW 14.6 % 11.8-1 4.1 high Not Available [address] [place], [address] 07/25/2023 15:15:51 07/25/19 24 07/25/2023 COMPL ETE BLOOD COUNT W/DIF F platelet count 280 10_3/ uL 130-40 0 normal Not Available [address] [place], [address] 07/25/2023 15:15:51 07/25/19 24 07/25/2023 COMPL ETE BLOOD COUNT W/DIF F MPV 8.3 fL 8.0-11 .0 normal Not Available [address] [place], [address] 07/25/2023 15:15:51 07/25/19 24 07/25/2023 COMPL ETE BLOOD COUNT W/DIF F neutrophils % 74.4 % Not Available [address] [place], [address] 07/25/2023 15:15:51 07/25/19 24 07/25/2023 COMPL ETE BLOOD COUNT W/DIF F lymphocytes % 10.5 % Not Available [address] [place], [address] 07/25/2023 15:15:51 07/25/19 24 07/25/2023 COMPL ETE BLOOD COUNT W/DIF F monocytes % 10.0 % Not Available [address] [place], [address] 07/25/2023 15:15:51 07/25/19 24 07/25/2023 COMPL ETE BLOOD COUNT W/DIF F eosinophils % 0.0 % Not Available [address] [place], [address] 07/25/2023 15:15:51 07/25/19 24 07/25/2023 COMPL ETE BLOOD COUNT W/DIF F basophils % 0.2 % Not Available [address] [place], [address] 07/25/2023 15:15:51 07/25/19 24 07/25/2023 COMPL ETE BLOOD COUNT W/DIF F immature grans % 4.9 % Not Available [address] [place], [address] 07/25/2023 15:15:51 07/25/19 24 07/25/2023 COMPL ETE BLOOD COUNT W/DIF F nucleated RBC 0.5 % 0.0-0. 3 high Not Available [address] [place], [address] 07/25/2023 15:15:51 07/25/19 24 07/25/2023 COMPL ETE BLOOD COUNT W/DIF F absolute neutrophil count 6.23 10_3/ uL 1.2-6. 7 normal Not Available [address] [place], [address] 07/25/2023 15:15:51 07/25/19 24 07/25/2023 COMPL ETE BLOOD COUNT W/DIF F absolute lymphocyte count 0.88 10_3/ uL 1.2-3. 4 low Not Available [address] [place], [address] 07/25/2023 15:15:51 07/25/19 24 07/25/2023 COMPL ETE BLOOD COUNT W/DIF F absolute monocyte count 0.84 10_3/ uL 0.1-0. 8 high Not Available [address] [place], [address] 07/25/2023 15:15:51 07/25/19 24 07/25/2023 COMPL ETE BLOOD COUNT W/DIF F absolute eosinophil count 0.00 10_3/ uL 0.0-0. 7 normal Not Available [address] [place], [address] 07/25/2023 15:15:51 07/25/19 24 07/25/2023 COMPL ETE BLOOD COUNT W/DIF F absolute basophil count 0.02 10_3/ uL 0.0-0. 2 normal Not Available [address] [place], [address] 07/25/2023 15:15:51 07/25/19 24 07/25/2023 COMPR EHENS VAN METAB OLIC PANEL calcium 8.7 mg/dL 8.5-10 .1 normal Not Available [address] [place], [address] 07/25/2023 15:24:30 07/25/19 24 07/25/2023 COMPR EHENS VAN METAB OLIC PANEL glucose 106 mg/dL 74-106 normal Not Available [address] [place], [address] 07/25/2023 15:24:30 07/25/19 24 07/25/2023 COMPR EHENS VAN METAB OLIC PANEL BUN 19 mg/dL 7-18 high Not Available [address] [place], [address] 07/25/2023 15:24:30 07/25/19 24 07/25/2023 COMPR EHENS VAN METAB OLIC PANEL creatinine 1.3 mg/dL 0.70-1 .30 normal Not Available [address] [place], [address] 07/25/2023 15:24:30 07/25/19 24 07/25/2023 COMPR EHENS VAN METAB OLIC PANEL estimated GFR 61.35 mL/min /1.73m 2 Not Available [address] [place], [address] 07/25/2023 15:24:30 07/25/19 24 07/25/2023 COMPR EHENS VAN METAB OLIC PANEL total protein 6.9 g/dL 6.4-8. 2 normal Not Available [address] [place], [address] 07/25/2023 15:24:30 07/25/19 24 07/25/2023 COMPR EHENS VAN METAB OLIC PANEL albumin 3.4 g/dL 3.4-5. 0 normal Not Available [address] [place], [address] 07/25/2023 15:24:30 07/25/19 24 07/25/2023 COMPR EHENS VAN METAB OLIC PANEL bilirubin, total 0.5 mg/dL 0.2-1. 0 normal Not Available [address] [place], [address] 07/25/2023 15:24:30 07/25/19 24 07/25/2023 COMPR EHENS VAN METAB OLIC PANEL alk phos 67 U/L 46-116 normal Not Available [address] [place], [address] 07/25/2023 15:24:30 07/25/19 24 07/25/2023 COMPR EHENS VAN METAB OLIC PANEL sodium 141 mmol/ L 136-14 5 normal Not Available [address] [place], [address] 07/25/2023 15:24:30 07/25/19 24 07/25/2023 COMPR EHENS VAN METAB OLIC PANEL potassium 3.2 mmol/ L 3.5-5. 1 low Not Available [address] [place], [address] 07/25/2023 15:24:30 07/25/19 24 07/25/2023 COMPR EHENS VAN METAB OLIC PANEL chloride 103 mmol/ L 98-107 normal Not Available [address] [place], [address] 07/25/2023 15:24:30 07/25/19 24 07/25/2023 COMPR EHENS VAN METAB OLIC PANEL CO2 30.0 mmol/ L 21.0-3 2.0 normal Not Available [address] [place], [address] 07/25/2023 15:24:30 07/25/19 24 07/25/2023 COMPR EHENS VAN METAB OLIC PANEL anion gap 8.0 mmol/ L 3-11 normal Not Available [address] [place], [address] 07/25/2023 15:24:30 07/25/19 24 07/25/2023 COMPR EHENS VAN METAB OLIC PANEL AST 24 U/L 15-37 normal Not Available [address] [place], [address] 07/25/2023 15:24:30 07/25/19 24 07/25/2023 COMPR EHENS VAN METAB OLIC PANEL ALT 42 U/L 16-63 normal Not Available [address] [place], [address] 07/25/2023 15:24:30 07/25/19 24 07/25/2023 MAGNE SIUM magnesium 1.9 mg/dL 1.8-2. 4 normal Not Available [address] [place], [address] 07/25/2023 15:24:30 07/25/19 24 07/25/2023 TSH TSH 2.93 uIU/m L 0.36-3 .74 normal Not Available [address] [place], [address] 07/25/2023 15:24:31 07/25/19 24 07/25/2023 FREE T4 free T4 0.87 NG/dL 0.76-1 .46 normal Not Available [address] [place], [address] 07/25/2023 15:24:31 07/29/19 24 07/29/2023 COMPL ETE BLOOD COUNT W/DIF F WBC 5.95 10_3/ uL 4.4-10 .8 normal Not Available [address] [place], [address] 07/29/2023 18:11:19 07/29/19 24 07/29/2023 COMPL ETE BLOOD COUNT W/DIF F RBC 3.62 10_6/ uL 4.36-5 .78 low Not Available [address] [place], [address] 07/29/2023 18:11:19 07/29/19 24 07/29/2023 COMPL ETE BLOOD COUNT W/DIF F HGB 11.5 g/dL 13.5-1 7.5 low Not Available [address] [place], [address] 07/29/2023 18:11:19 07/29/19 24 07/29/2023 COMPL ETE BLOOD COUNT W/DIF F HCT 33.2 % 40.0-5 0.0 low Not Available [address] [place], [address] 07/29/2023 18:11:19 07/29/19 24 07/29/2023 COMPL ETE BLOOD COUNT W/DIF F MCV 92 fL 80-95 normal Not Available [address] [place], [address] 07/29/2023 18:11:19 07/29/19 24 07/29/2023 COMPL ETE BLOOD COUNT W/DIF F MCH 31.8 pg 27.0-3 3.0 normal Not Available [address] [place], [address] 07/29/2023 18:11:19 07/29/19 24 07/29/2023 COMPL ETE BLOOD COUNT W/DIF F MCHC 34.6 % 32.0-3 6.0 normal Not Available [address] [place], [address] 07/29/2023 18:11:19 07/29/19 24 07/29/2023 COMPL ETE BLOOD COUNT W/DIF F RDW 13.8 % 11.8-1 4.1 normal Not Available [address] [place], [address] 07/29/2023 18:11:19 07/29/19 24 07/29/2023 COMPL ETE BLOOD COUNT W/DIF F platelet count 217 10_3/ uL 130-40 0 normal Not Available [address] [place], [address] 07/29/2023 18:11:19 07/29/1907/29/2023 COMPL ETE BLOOD COUNT W/DIF F MPV 8.3 fL 8.0-11 .0 normal Not Available [address] [place], [address] 07/29/2023 18:11:19 07/29/1907/29/2023 COMPL ETE BLOOD COUNT W/DIF F neutrophils % 89.4 % Not Available [address] [place], [address] 07/29/2023 18:11:19 07/29/1907/29/2023 COMPL ETE BLOOD COUNT W/DIF F lymphocytes % 7.7 % Not Available [address] [place], [address] 07/29/2023 18:11:19 07/29/19 24 07/29/2023 COMPL ETE BLOOD COUNT W/DIF F monocytes % 2.0 % Not Available [address] [place], [address] 07/29/2023 18:11:19 07/29/19 24 07/29/2023 COMPL ETE BLOOD COUNT W/DIF F eosinophils % 0.0 % Not Available [address] [place], [address] 07/29/2023 18:11:19 07/29/19 24 07/29/2023 COMPL ETE BLOOD COUNT W/DIF F basophils % 0.2 % Not Available [address] [place], [address] 07/29/2023 18:11:19 07/29/19 24 07/29/2023 COMPL ETE BLOOD COUNT W/DIF F immature grans % 0.7 % Not Available [address] [place], [address] 07/29/2023 18:11:19 07/29/19 24 07/29/2023 COMPL ETE BLOOD COUNT W/DIF F nucleated RBC 0.0 % 0.0-0. 3 normal Not Available [address] [place], [address] 07/29/2023 18:11:19 07/29/19 24 07/29/2023 COMPL ETE BLOOD COUNT W/DIF F absolute neutrophil count 5.32 10_3/ uL 1.2-6. 7 normal Not Available [address] [place], [address] 07/29/2023 18:11:19 07/29/19 24 07/29/2023 COMPL ETE BLOOD COUNT W/DIF F absolute lymphocyte count 0.46 10_3/ uL 1.2-3. 4 low Not Available [address] [place], [address] 07/29/2023 18:11:19 07/29/19 24 07/29/2023 COMPL ETE BLOOD COUNT W/DIF F absolute monocyte count 0.12 10_3/ uL 0.1-0. 8 normal Not Available [address] [place], [address] 07/29/2023 18:11:19 07/29/19 24 07/29/2023 COMPL ETE BLOOD COUNT W/DIF F absolute eosinophil count 0.00 10_3/ uL 0.0-0. 7 normal Not Available [address] [place], [address] 07/29/2023 18:11:19 07/29/19 24 07/29/2023 COMPL ETE BLOOD COUNT W/DIF F absolute basophil count 0.01 10_3/ uL 0.0-0. 2 normal Not Available [address] [place], [address] 07/29/2023 18:11:19 07/29/19 24 07/29/2023 BASIC METAB OLIC PANEL calcium 9.1 mg/dL 8.5-10 .1 normal Not Available [address] [place], [address] 07/29/2023 18:29:20 07/29/19 24 07/29/2023 BASIC METAB OLIC PANEL glucose 112 mg/dL 74-106 high Not Available Zee shay [address] [place], [address] 07/29/2023 18:29:20 07/29/19 24 07/29/2023 BASIC METAB OLIC PANEL BUN 15 mg/dL 7-18 normal Not Available Zee shay [address] [place], [address] 07/29/2023 18:29:20 07/29/19 24 07/29/2023 BASIC METAB OLIC PANEL creatinine 1.2 mg/dL 0.70-1 .30 normal Not Available [address] [place], [address] 07/29/2023 18:29:20 07/29/19 24 07/29/2023 BASIC METAB OLIC PANEL estimated GFR 67.53 mL/min /1.73m 2 Not Available [address] [place], [address] 07/29/2023 18:29:20 07/29/19 24 07/29/2023 BASIC METAB OLIC PANEL sodium 137 mmol/ L 136-14 5 normal Not Available [address] [place], [address] 07/29/2023 18:29:20 07/29/19 24 07/29/2023 BASIC METAB OLIC PANEL potassium 3.6 mmol/ L 3.5-5. 1 normal Not Available [address] [place], [address] 07/29/2023 18:29:20 07/29/19 24 07/29/2023 BASIC METAB OLIC PANEL chloride 98 mmol/ L 98-107 normal Not Available [address] [place], [address] 07/29/2023 18:29:20 07/29/19 24 07/29/2023 BASIC METAB OLIC PANEL CO2 31.8 mmol/ L 21.0-3 2.0 normal Not Available [address] [place], [address] 07/29/2023 18:29:20 07/29/19 24 07/29/2023 BASIC METAB OLIC PANEL anion gap 7.2 mmol/ L 3-11 normal Not Available [address] [place], [address] 07/29/2023 18:29:20 07/29/19 24 07/29/2023 TROPO [facility] I troponin I < 50 NG/L < or =60 Not Available [address] [place], [address] 07/29/2023 18:29:20 08/17/19 24 08/17/2023 COMPL ETE BLOOD COUNT W/DIF F WBC 4.63 10_3/ uL 4.4-10 .8 normal Not Available [address] [place], [address] 08/17/2023 07:58:06 08/17/19 24 08/17/2023 COMPL ETE BLOOD COUNT W/DIF F RBC 3.75 10_6/ uL 4.36-5 .78 low Not Available [address] [place], [address] 08/17/2023 07:58:06 08/17/19 24 08/17/2023 COMPL ETE BLOOD COUNT W/DIF F HGB 11.9 g/dL 13.5-1 7.5 low Not Available [address] [place], [address] 08/17/2023 07:58:06 08/17/19 24 08/17/2023 COMPL ETE BLOOD COUNT W/DIF F HCT 34.2 % 40.0-5 0.0 low Not Available [address] [place], [address] 08/17/2023 07:58:06 08/17/19 24 08/17/2023 COMPL ETE BLOOD COUNT W/DIF F MCV 91 fL 80-95 normal Not Available [address] [place], [address] 08/17/2023 07:58:06 08/17/19 24 08/17/2023 COMPL ETE BLOOD COUNT W/DIF F MCH 31.7 pg 27.0-3 3.0 normal Not Available [address] [place], [address] 08/17/2023 07:58:06 08/17/19 24 08/17/2023 COMPL ETE BLOOD COUNT W/DIF F MCHC 34.8 % 32.0-3 6.0 normal Not Available [address] [place], [address] 08/17/2023 07:58:06 08/17/19 24 08/17/2023 COMPL ETE BLOOD COUNT W/DIF F RDW 14.4 % 11.8-1 4.1 high Not Available [address] [place], [address] 08/17/2023 07:58:06 08/17/19 24 08/17/2023 COMPL ETE BLOOD COUNT W/DIF F platelet count 303 10_3/ uL 130-40 0 normal Not Available [address] [place], [address] 08/17/2023 07:58:06 08/17/19 24 08/17/2023 COMPL ETE BLOOD COUNT W/DIF F MPV 8.2 fL 8.0-11 .0 normal Not Available [address] [place], [address] 08/17/2023 07:58:06 08/17/19 24 08/17/2023 COMPL ETE BLOOD COUNT W/DIF F neutrophils % 64.2 % Not Available [address] [place], [address] 08/17/2023 07:58:06 08/17/19 24 08/17/2023 COMPL ETE BLOOD COUNT W/DIF F lymphocytes % 16.4 % Not Available [address] [place], [address] 08/17/2023 07:58:06 08/17/19 24 08/17/2023 COMPL ETE BLOOD COUNT W/DIF F monocytes % 14.5 % Not Available Denise cochran [address] [place], [address] 08/17/2023 07:58:06 08/17/19 24 08/17/2023 COMPL ETE BLOOD COUNT W/DIF F eosinophils % 0.0 % Not Available [address] [place], [address] 08/17/2023 07:58:06 08/17/19 24 08/17/2023 COMPL ETE BLOOD COUNT W/DIF F basophils % 0.4 % Not Available Blayneji [email or web address] [address] [place], [address] 08/17/2023 07:58:06 08/17/19 24 08/17/2023 COMPL ETE BLOOD COUNT W/DIF F immature grans % 4.5 % Not Available [address] [place], [address] 08/17/2023 07:58:06 08/17/19 24 08/17/2023 COMPL ETE BLOOD COUNT W/DIF F nucleated RBC 0.0 % 0.0-0. 3 normal Not Available [address] [place], [address] 08/17/2023 07:58:06 08/17/19 24 08/17/2023 COMPL ETE BLOOD COUNT W/DIF F absolute neutrophil count 2.97 10_3/ uL 1.2-6. 7 normal Not Available [address] [place], [address] 08/17/2023 07:58:06 08/17/19 24 08/17/2023 COMPL ETE BLOOD COUNT W/DIF F absolute lymphocyte count 0.76 10_3/ uL 1.2-3. 4 low Not Available [address] [place], [address] 08/17/2023 07:58:06 08/17/19 24 08/17/2023 COMPL ETE BLOOD COUNT W/DIF F absolute monocyte count 0.67 10_3/ uL 0.1-0. 8 normal Not Available [address] [place], [address] 08/17/2023 07:58:06 08/17/19 24 08/17/2023 COMPL ETE BLOOD COUNT W/DIF F absolute eosinophil count 0.00 10_3/ uL 0.0-0. 7 normal Not Available [address] [place], [address] 08/17/2023 07:58:06 08/17/19 24 08/17/2023 COMPL ETE BLOOD COUNT W/DIF F absolute basophil count 0.02 10_3/ uL 0.0-0. 2 normal Not Available [address] [place], [address] 08/17/2023 07:58:06 08/17/19 24 08/17/2023 COMPR EHENS VAN METAB OLIC PANEL calcium 9.2 mg/dL 8.5-10 .1 normal Not Available [address] [place], [address] 08/17/2023 08:24:09 08/17/19 24 08/17/2023 COMPR EHENS VAN METAB OLIC PANEL glucose 112 mg/dL 74-106 high Not Available [address] [place], [address] 08/17/2023 08:24:09 08/17/19 24 08/17/2023 COMPR EHENS VAN METAB OLIC PANEL BUN 13 mg/dL 7-18 normal Not Available [address] [place], [address] 08/17/2023 08:24:09 08/17/19 24 08/17/2023 COMPR EHENS VAN METAB OLIC PANEL creatinine 1.4 mg/dL 0.70-1 .30 high Not Available [address] [place], [address] 08/17/2023 08:24:09 08/17/19 24 08/17/2023 COMPR EHENS VAN METAB OLIC PANEL estimated GFR 56.13 mL/min /1.73m 2 Not Available [address] [place], [address] 08/17/2023 08:24:09 08/17/19 24 08/17/2023 COMPR EHENS VAN METAB OLIC PANEL total protein 7.5 g/dL 6.4-8. 2 normal Not Available [address] [place], [address] 08/17/2023 08:24:09 08/17/19 24 08/17/2023 COMPR EHENS VAN METAB OLIC PANEL albumin 3.7 g/dL 3.4-5. 0 normal Not Available [address] [place], [address] 08/17/2023 08:24:09 08/17/19 24 08/17/2023 COMPR EHENS VAN METAB OLIC PANEL bilirubin, total 0.5 mg/dL 0.2-1. 0 normal Not Available [address] [place], [address] 08/17/2023 08:24:09 08/17/19 24 08/17/2023 COMPR EHENS VAN METAB OLIC PANEL alk phos 78 U/L 46-116 normal Not Available [address] [place], [address] 08/17/2023 08:24:09 08/17/19 24 08/17/2023 COMPR EHENS VAN METAB OLIC PANEL sodium 141 mmol/ L 136-14 5 normal Not Available [address] [place], [address] 08/17/2023 08:24:09 08/17/19 24 08/17/2023 COMPR EHENS VAN METAB OLIC PANEL potassium 3.4 mmol/ L 3.5-5. 1 low Not Available [address] [place], [address] 08/17/2023 08:24:09 08/17/19 24 08/17/2023 COMPR EHENS VAN METAB OLIC PANEL chloride 102 mmol/ L 98-107 normal Not Available [address] [place], [address] 08/17/2023 08:24:09 08/17/19 24 08/17/2023 COMPR EHENS VAN METAB OLIC PANEL CO2 29.9 mmol/ L 21.0-3 2.0 normal Not Available [address] [place], [address] 08/17/2023 08:24:09 08/17/19 24 08/17/2023 COMPR EHENS VAN METAB OLIC PANEL anion gap 9.1 mmol/ L 3-11 normal Not Available [address] [place], [address] 08/17/2023 08:24:09 08/17/19 24 08/17/2023 COMPR EHENS VAN METAB OLIC PANEL AST 37 U/L 15-37 normal Not Available [address] [place], [address] 08/17/2023 08:24:09 08/17/19 24 08/17/2023 COMPR EHENS VAN METAB OLIC PANEL ALT 50 U/L 16-63 normal Not Available [address] [place], [address] 08/17/2023 08:24:09 08/17/19 24 08/17/2023 MAGNE SIUM magnesium 1.6 mg/dL 1.8-2. 4 low Not Available [address] [place], [address] 08/17/2023 08:24:09 08/17/19 24 08/17/2023 TSH TSH 5.80 uIU/m L 0.36-3 .74 high Not Available [address] [place], [address] 08/17/2023 08:24:10 08/17/19 24 08/17/2023 FREE T4 free T4 0.91 NG/dL 0.76-1 .46 normal Not Available [address] [place], [address] 08/17/2023 08:24:10 09/05/19 24 09/05/2023 COMPL ETE BLOOD COUNT W/DIF F WBC 3.61 10_3/ uL 4.4-10 .8 low Not Available [address] [place], [address] 09/05/2023 08:23:24 09/05/19 24 09/05/2023 COMPL ETE BLOOD COUNT W/DIF F RBC 3.74 10_6/ uL 4.36-5 .78 low Not Available [address] [place], [address] 09/05/2023 08:23:24 09/05/19 24 09/05/2023 COMPL ETE BLOOD COUNT W/DIF F HGB 11.9 g/dL 13.5-1 7.5 low Not Available [address] [place], [address] 09/05/2023 08:23:24 09/05/19 24 09/05/2023 COMPL ETE BLOOD COUNT W/DIF F HCT 34.7 % 40.0-5 0.0 low Not Available [address] [place], [address] 09/05/2023 08:23:24 09/05/19 24 09/05/2023 COMPL ETE BLOOD COUNT W/DIF F MCV 93 fL 80-95 normal Not Available [address] [place], [address] 09/05/2023 08:23:24 09/05/19 24 09/05/2023 COMPL ETE BLOOD COUNT W/DIF F MCH 31.8 pg 27.0-3 3.0 normal Not Available [address] [place], [address] 09/05/2023 08:23:24 09/05/19 24 09/05/2023 COMPL ETE BLOOD COUNT W/DIF F MCHC 34.3 % 32.0-3 6.0 normal Not Available [address] [place], [address] 09/05/2023 08:23:24 09/05/19 24 09/05/2023 COMPL ETE BLOOD COUNT W/DIF F RDW 14.9 % 11.8-1 4.1 high Not Available [address] [place], [address] 09/05/2023 08:23:24 09/05/19 24 09/05/2023 COMPL ETE BLOOD COUNT W/DIF F platelet count 201 10_3/ uL 130-40 0 normal Not Available [address] [place], [address] 09/05/2023 08:23:24 09/05/19 24 09/05/2023 COMPL ETE BLOOD COUNT W/DIF F MPV 8.5 fL 8.0-11 .0 normal Not Available [address] [place], [address] 09/05/2023 08:23:24 09/05/19 24 09/05/2023 COMPL ETE BLOOD COUNT W/DIF F neutrophils % 63.7 % Not Available [address] [place], [address] 09/05/2023 08:23:24 09/05/19 24 09/05/2023 COMPL ETE BLOOD COUNT W/DIF F lymphocytes % 16.6 % Not Available [address] [place], [address] 09/05/2023 08:23:24 09/05/19 24 09/05/2023 COMPL ETE BLOOD COUNT W/DIF F monocytes % 16.1 % Not Available [address] [place], [address] 09/05/2023 08:23:24 09/05/19 24 09/05/2023 COMPL ETE BLOOD COUNT W/DIF F eosinophils % 0.0 % Not Available [address] [place], [address] 09/05/2023 08:23:24 09/05/19 24 09/05/2023 COMPL ETE BLOOD COUNT W/DIF F basophils % 0.3 % Not Available [address] [place], [address] 09/05/2023 08:23:24 09/05/19 24 09/05/2023 COMPL ETE BLOOD COUNT W/DIF F immature grans % 3.3 % Not Available [address] [place], [address] 09/05/2023 08:23:24 09/05/19 24 09/05/2023 COMPL ETE BLOOD COUNT W/DIF F nucleated RBC 0.0 % 0.0-0. 3 normal Not Available [address] [place], [address] 09/05/2023 08:23:24 09/05/19 24 09/05/2023 COMPL ETE BLOOD COUNT W/DIF F absolute neutrophil count 2.30 10_3/ uL 1.2-6. 7 normal Not Available [address] [place], [address] 09/05/2023 08:23:24 09/05/19 24 09/05/2023 COMPL ETE BLOOD COUNT W/DIF F absolute lymphocyte count 0.60 10_3/ uL 1.2-3. 4 low Not Available [address] [place], [address] 09/05/2023 08:23:24 09/05/19 24 09/05/2023 COMPL ETE BLOOD COUNT W/DIF F absolute monocyte count 0.58 10_3/ uL 0.1-0. 8 normal Not Available [address] [place], [address] 09/05/2023 08:23:24 09/05/19 24 09/05/2023 COMPL ETE BLOOD COUNT W/DIF F absolute eosinophil count 0.00 10_3/ uL 0.0-0. 7 normal Not Available [address] [place], [address] 09/05/2023 08:23:24 09/05/19 24 09/05/2023 COMPL ETE BLOOD COUNT W/DIF F absolute basophil count 0.01 10_3/ uL 0.0-0. 2 normal Not Available [address] [place], [address] 09/05/2023 08:23:24 09/05/19 24 09/05/2023 COMPR EHENS VAN METAB OLIC PANEL calcium 9.2 mg/dL 8.5-10 .1 normal Not Available [address] [place], [address] 09/05/2023 08:49:07 09/05/19 24 09/05/2023 COMPR EHENS VAN METAB OLIC PANEL glucose 112 mg/dL 74-106 high Not Available [address] [place], [address] 09/05/2023 08:49:07 09/05/19 24 09/05/2023 COMPR EHENS VAN METAB OLIC PANEL BUN 10 mg/dL 7-18 normal Not Available [address] [place], [address] 09/05/2023 08:49:07 09/05/19 24 09/05/2023 COMPR EHENS VAN METAB OLIC PANEL creatinine 1.3 mg/dL 0.70-1 .30 normal Not Available [address] [place], [address] 09/05/2023 08:49:07 09/05/19 24 09/05/2023 COMPR EHENS VAN METAB OLIC PANEL estimated GFR 61.35 mL/min /1.73m 2 Not Available [address] [place], [address] 09/05/2023 08:49:07 09/05/19 24 09/05/2023 COMPR EHENS VAN METAB OLIC PANEL total protein 7.6 g/dL 6.4-8. 2 normal Not Available [address] [place], [address] 09/05/2023 08:49:07 09/05/1909/05/2023 COMPR EHENS VAN METAB OLIC PANEL albumin 3.8 g/dL 3.4-5. 0 normal Not Available [address] [place], [address] 09/05/2023 08:49:07 09/05/19 24 09/05/2023 COMPR EHENS VAN METAB OLIC PANEL bilirubin, total 0.40 mg/dL 0.2-1. 0 normal Not Available [address] [place], [address] 09/05/2023 08:49:07 09/05/1909/05/2023 COMPR EHENS VAN METAB OLIC PANEL alk phos 77 U/L 46-116 normal Not Available [address] [place], [address] 09/05/2023 08:49:07 09/05/1909/05/2023 COMPR EHENS VAN METAB OLIC PANEL sodium 142 mmol/ L 136-14 5 normal Not Available [address] [place], [address] 09/05/2023 08:49:07 09/05/1909/05/2023 COMPR EHENS VAN METAB OLIC PANEL potassium 3.7 mmol/ L 3.5-5. 1 normal Not Available [address] [place], [address] 09/05/2023 08:49:07 09/05/19 24 09/05/2023 COMPR EHENS VAN METAB OLIC PANEL chloride 104 mmol/ L 98-107 normal Not Available [address] [place], [address] 09/05/2023 08:49:07 09/05/19 24 09/05/2023 COMPR EHENS VAN METAB OLIC PANEL CO2 30.2 mmol/ L 21.0-3 2.0 normal Not Available [address] [place], [address] 09/05/2023 08:49:07 09/05/19 24 09/05/2023 COMPR EHENS VAN METAB OLIC PANEL anion gap 7.8 mmol/ L 3-11 normal Not Available [address] [place], [address] 09/05/2023 08:49:07 09/05/19 24 09/05/2023 COMPR EHENS VAN METAB OLIC PANEL AST 32 U/L 15-37 normal Not Available [address] [place], [address] 09/05/2023 08:49:07 09/05/19 24 09/05/2023 COMPR EHENS VAN METAB OLIC PANEL ALT 43 U/L 16-63 normal Not Available [address] [place], [address] 09/05/2023 08:49:07 09/05/19 24 09/05/2023 MAGNE SIUM magnesium 1.6 mg/dL 1.8-2. 4 low Not Available [address] [place], [address] 09/05/2023 08:49:07 09/05/19 24 09/05/2023 TSH TSH 6.67 uIU/m L 0.36-3 .74 high Not Available [address] [place], [address] 09/05/2023 08:49:08 09/05/19 24 09/05/2023 FREE T4 free T4 0.86 NG/dL 0.76-1 .46 normal Not Available [address] [place], [address] 09/05/2023 08:49:08 09/26/19 24 09/26/2023 COMPL ETE BLOOD COUNT W/DIF F WBC 3.27 10_3/ uL 4.4-10 .8 low Not Available [address] [place], [address] 09/26/2023 08:04:41 09/26/19 24 09/26/2023 COMPL ETE BLOOD COUNT W/DIF F RBC 3.55 10_6/ uL 4.36-5 .78 low Not Available [address] [place], [address] 09/26/2023 08:04:41 09/26/19 24 09/26/2023 COMPL ETE BLOOD COUNT W/DIF F HGB 11.1 g/dL 13.5-1 7.5 low Not Available [address] [place], [address] 09/26/2023 08:04:41 09/26/19 24 09/26/2023 COMPL ETE BLOOD COUNT W/DIF F HCT 32.4 % 40.0-5 0.0 low Not Available [address] [place], [address] 09/26/2023 08:04:41 09/26/19 24 09/26/2023 COMPL ETE BLOOD COUNT W/DIF F MCV 91 fL 80-95 normal Not Available [address] [place], [address] 09/26/2023 08:04:41 09/26/19 24 09/26/2023 COMPL ETE BLOOD COUNT W/DIF F MCH 31.3 pg 27.0-3 3.0 normal Not Available [address] [place], [address] 09/26/2023 08:04:41 09/26/19 24 09/26/2023 COMPL ETE BLOOD COUNT W/DIF F MCHC 34.3 % 32.0-3 6.0 normal Not Available [address] [place], [address] 09/26/2023 08:04:41 09/26/19 24 09/26/2023 COMPL ETE BLOOD COUNT W/DIF F RDW 15.3 % 11.8-1 4.1 high Not Available [address] [place], [address] 09/26/2023 08:04:41 09/26/19 24 09/26/2023 COMPL ETE BLOOD COUNT W/DIF F platelet count 214 10_3/ uL 130-40 0 normal Not Available [address] [place], [address] 09/26/2023 08:04:41 09/26/19 24 09/26/2023 COMPL ETE BLOOD COUNT W/DIF F MPV 8.2 fL 8.0-11 .0 normal Not Available [address] [place], [address] 09/26/2023 08:04:41 09/26/19 24 09/26/2023 COMPL ETE BLOOD COUNT W/DIF F neutrophils % 67.0 % Not Available [address] [place], [address] 09/26/2023 08:04:41 09/26/19 24 09/26/2023 COMPL ETE BLOOD COUNT W/DIF F lymphocytes % 17.4 % Not Available [address] [place], [address] 09/26/2023 08:04:41 09/26/19 24 09/26/2023 COMPL ETE BLOOD COUNT W/DIF F monocytes % 13.5 % Not Available [facility] [place], [address] 09/26/2023 08:04:41 09/26/19 24 09/26/2023 COMPL ETE BLOOD COUNT W/DIF F eosinophils % 0.0 % Not Available [address] [place], [address] 09/26/2023 08:04:41 09/26/19 24 09/26/2023 COMPL ETE BLOOD COUNT W/DIF F basophils % 0.3 % Not Available [address] [place], [address] 09/26/2023 08:04:41 09/26/19 24 09/26/2023 COMPL ETE BLOOD COUNT W/DIF F immature grans % 1.8 % Not Available [address] [place], [address] 09/26/2023 08:04:41 09/26/19 24 09/26/2023 COMPL ETE BLOOD COUNT W/DIF F nucleated RBC 0.0 % 0.0-0. 3 normal Not Available [address] [place], [address] 09/26/2023 08:04:41 09/26/19 24 09/26/2023 COMPL ETE BLOOD COUNT W/DIF F absolute neutrophil count 2.19 10_3/ uL 1.2-6. 7 normal Not Available [address] [place], [address] 09/26/2023 08:04:41 09/26/19 24 09/26/2023 COMPL ETE BLOOD COUNT W/DIF F absolute lymphocyte count 0.57 10_3/ uL 1.2-3. 4 low Not Available [address] [place], [address] 09/26/2023 08:04:41 09/26/19 24 09/26/2023 COMPL ETE BLOOD COUNT W/DIF F absolute monocyte count 0.44 10_3/ uL 0.1-0. 8 normal Not Available [address] [place], [address] 09/26/2023 08:04:41 09/26/19 24 09/26/2023 COMPL ETE BLOOD COUNT W/DIF F absolute eosinophil count 0.00 10_3/ uL 0.0-0. 7 normal Not Available [address] [place], [address] 09/26/2023 08:04:41 09/26/19 24 09/26/2023 COMPL ETE BLOOD COUNT W/DIF F absolute basophil count 0.01 10_3/ uL 0.0-0. 2 normal Not Available [address] [place], [address] 09/26/2023 08:04:41 09/26/19 24 09/26/2023 COMPR EHENS VAN METAB OLIC PANEL calcium 9.0 mg/dL 8.5-10 .1 normal Not Available [address] [place], [address] 09/26/2023 08:28:50 09/26/19 24 09/26/2023 COMPR EHENS VAN METAB OLIC PANEL glucose 116 mg/dL 74-106 high Not Available [address] [place], [address] 09/26/2023 08:28:50 09/26/19 24 09/26/2023 COMPR EHENS VAN METAB OLIC PANEL BUN 10 mg/dL 7-18 normal Not Available [address] [place], [address] 09/26/2023 08:28:50 09/26/19 24 09/26/2023 COMPR EHENS VAN METAB OLIC PANEL creatinine 1.2 mg/dL 0.70-1 .30 normal Not Available [address] [place], [address] 09/26/2023 08:28:50 09/26/19 24 09/26/2023 COMPR EHENS VNA METAB OLIC PANEL estimated GFR 67.11 mL/min /1.73m 2 Not Available [address] [place], [address] 09/26/2023 08:28:50 09/26/19 24 09/26/2023 COMPR EHENS VAN METAB OLIC PANEL total protein 7.5 g/dL 6.4-8. 2 normal Not Available [address] [place], [address] 09/26/2023 08:28:50 09/26/19 24 09/26/2023 COMPR EHENS VAN METAB OLIC PANEL albumin 3.5 g/dL 3.4-5. 0 normal Not Available [address] [place], [address] 09/26/2023 08:28:50 09/26/19 24 09/26/2023 COMPR EHENS VAN METAB OLIC PANEL bilirubin, total 0.40 mg/dL 0.2-1. 0 normal Not Available [address] [place], [address] 09/26/2023 08:28:50 09/26/19 24 09/26/2023 COMPR EHENS VAN METAB OLIC PANEL alk phos 74 U/L 46-116 normal Not Available [address] [place], [address] 09/26/2023 08:28:50 09/26/19 24 09/26/2023 COMPR EHENS VAN METAB OLIC PANEL sodium 143 mmol/ L 136-14 5 normal Not Available [address] [place], [address] 09/26/2023 08:28:50 09/26/19 24 09/26/2023 COMPR EHENS VAN METAB OLIC PANEL potassium 3.5 mmol/ L 3.5-5. 1 normal Not Available [address] [place], [address] 09/26/2023 08:28:50 09/26/19 24 09/26/2023 COMPR EHENS VAN METAB OLIC PANEL chloride 104 mmol/ L 98-107 normal Not Available [address] [place], [address] 09/26/2023 08:28:50 09/26/19 24 09/26/2023 COMPR EHENS VAN METAB OLIC PANEL CO2 30.4 mmol/ L 21.0-3 2.0 normal Not Available [address] [place], [address] 09/26/2023 08:28:50 09/26/19 24 09/26/2023 COMPR EHENS VAN METAB OLIC PANEL anion gap 8.6 mmol/ L 3-11 normal Not Available [address] [place], [address] 09/26/2023 08:28:50 09/26/19 24 09/26/2023 COMPR EHENS VAN METAB OLIC PANEL AST 22 U/L 15-37 normal Not Available [address] [place], [address] 09/26/2023 08:28:50 09/26/19 24 09/26/2023 COMPR EHENS VAN METAB OLIC PANEL ALT 36 U/L 16-63 normal Not Available Zee [email or web address] [address] [place], [address] 09/26/2023 08:28:50 09/26/19 24 09/26/2023 MAGNE SIUM magnesium 1.5 mg/dL 1.8-2. 4 low Not Available [address] [place], [address] 09/26/2023 08:28:51 09/26/19 24 09/26/2023 TSH TSH 4.73 uIU/m L 0.36-3 .74 high Not Available [address] [place], [address] 09/26/2023 08:28:52 09/26/19 24 09/26/2023 FREE T4 free T4 0.95 NG/dL 0.76-1 .46 normal Not Available [address] [place], [address] 09/26/2023 08:28:52 04/25/19 24 04/25/2023 vrad repor t Patien t Name: Sisi Bragg rt R Unit #: [id number] Loc: ER Orderi ng Provid er: Accoun t #: [id number] Status : PRE ER Primar y Care Provid er: Ji Butterfield nafisa Date of Exam: Sex: M : 1960 Age: 62 Exam(s ) PROCED URE INFORM ATION: Exam: CTA Head With Contra st, Arteri ograph y Exam date and time: 024 12:28 AM Age: 62 years old Clinic al indica tion: Patien t HX: Rle evan ss x 3 weeks, rle maria alejandra g today TECHNI QUE: Imagin g protoc ol: Comput ed tomogr aphic angiog irene of the head with contra st. Exam focuse d on the arteri es. 3D render ing (Not superv ised by radiol ogist) : MIP and/or 3D recons tructe d images were create d by the techno logist . Radiat ion optimi zation : All CT scans at this facili ty use at least one of these dose optimi zation techni ques: automa jamshid exposu re contro l; mA and/or kV adjust ment per patien t size (inclu edna target ed exams where dose is matche d to clinic al indica tion); or iterat van recons tructi on. Contra st materi al: OMNIPA QUE 350; Contra st volume : 85 ml; Contra st route: INTRAV ENOUS (IV); COMPAR QIANA: MR BRAIN WO/W 2020 3:04 PM FINDIN GS: ANTERI OR CIRCUL ATION: Right photography intern al caroti d artery : Intrac ranial segmen t is patent with no signif icant stenos is. No aneury sm. Right middle cerebr al artery : No occlus ion or signif icant stenos is. No aneury sm. Right anteri or cerebr al artery : No occlus ion or signif icant stenos is. No aneury sm. Left photography intern al caroti d artery : Intrac ranial segmen t is patent with no signif icant stenos is. No aneury sm. Left middle cerebr al artery : No occlus ion or signif icant stenos is. No aneury sm. Left anteri or cerebr al artery : No occlus ion or signif icant stenos is. No aneury sm. PROFESSOR OF MATHEMATICS IOR CIRCUL ATION: Right verteb ral artery : No occlus ion or signif icant stenos is. No aneury sm. Left verteb ral artery : No occlus ion or signif icant stenos is. No aneury sm. Basila r artery : No occlus ion or signif icant stenos is. No aneury sm. Right mutual fund manager ior cerebr al artery : No occlus ion or signif icant stenos is. No aneury sm. Left mutual fund manager ior cerebr al artery : No occlus ion or signif icant stenos is. No aneury sm. Brain: 2.3 cm mutual fund manager osuper ior left fronta l brain neopla sm with extens van surrou nding vasoge bentley edema. No intrac ranial hemorr carlos. Cerebr al ventri cles: No ventri culome carmen. Bones/ joints : Unrema rkable . No acute fractu re. Soft tissue s: Unrema rkable . IMPRES TIRSO: 1. 2.3 cm mutual fund manager osuper ior left fronta l brain neopla sm with extens van surrou nding vasoge bentley edema. 2. No acute vascul ar findin gs. ====== ====== ====== ====== = PROCED URE INFORM ATION: Exam: CTA Neck With Contra st Exam date and time: 024 12:28 AM Age: 62 years old Clinic al indica tion: Patien t HX: Rle weakne ss x 3 weeks, rle shakin g today TECHNI QUE: Imagin g protoc ol: Comput ed tomogr aphic angiog irene of the neck with contra st. Exam focuse d on the cervic al segmen ts of the vascul ature. 3D render ing (Not superv ised by radiol ogist) : MIP and/or 3D recons tructe d images were create d by the techno logist . Contra st materi al: OMNIPA QUE 350; Contra st volume : 85 ml; Contra st route: INTRAV ENOUS (IV); COMPAR QIANA: CT CHEST PE CTA 022 4:26 PM FINDIN GS: Right common caroti d artery : No stenos is. No dissec tion or occlus ion. Right photography intern al caroti d artery : No stenos is of the extrac ranial segmen t. No dissec tion or occlus ion. Right safety aide al caroti d artery : No occlus ion or stenos is of the origin . 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 No thromb osis or occlus ion. Left photography intern al caroti d artery : See Left common caroti d artery findin g. Left safety aide al caroti d artery : No occlus ion or stenos is of the origin . Right verteb ral artery : No stenos is. No dissec tion or occlus ion. Left verteb ral artery : No stenos is. No dissec tion or occlus ion. Soft tissue s: Normal . No signif icant soft tissue swelli ng. Bones/ joints : No acute fractu re. Lungs: Incomp letely visual ized scarri ng/ate lectas is in the upper right lung. IMPRES TIRSO: No acute vascul ar findin gs. REFERE NCES: NASCET CRITER IA. The degree of stenos is in the cervic al segmen t of the photography intern al caroti d artery is based on NASCET criter ia. Normal is no stenos is. Mild is less than 50% stenos is. Modera te is 50-69% stenos is. Severe is 70% to 99% stenos is. Total occlus ion is no detect able patent lumen. Dictat ed and Authen ticate d by: Linda young MD. Orderi ng:Maurilio elias MD Access ion#=[id number] Ordere d By: CC: ------ ------ ------ ------ ------ ------ ------ ------ ------ ------ ------ ------ ---- Dictat ed By: Report s vrad [id number] Transc ribed By: Bell Merge 27 This is privil eged, confid ential inform ation intend ed only for the provid er named. Any use or distri bution by any person other than this provid er is strict ly prohib ited. If you receiv e this report in error, please notify us immedi laly at [phone] and return the origin al report to us at the addres s above. Thank- you. [email or web address] [facility] [address] [place], [address] 04/25/2023 07:53:08 04/25/19 24 04/24/2023 ED visit note ED Visit Note LISS Workman NAME: Sisi Bragg rt R UNIT #: [id number] ADMITT ING PROVID ER: Iraida Claudio M.D. ACCOUN T #: [id number] PRIMAR Y CARE PROVID ER: GREER GLOST PLACER,YAHAIRA Rice DATE OF ADMIT: : 1960 HPI Genera l Mode of arriva l: ambula tory . Date/T jae Provid er Initia jamshid trammelltio n: 22:30 . Limita tions to Docume ntatio n: no limita tions . Inform ation obtain ed by: liss workman . HPI Narrat van: 62yo M with hx of lung cancer (in remiss ion) presen ting with RLE tremor . Has had three weeks of right sided (prima rily LE) weakne ss, being worked up on an outpat ient basis at [facility] ; plan for MRI which has not yet be schedu led. No histor y of brain mets. Tonigh t his whole right leg began jerki ng uncont rollab ly and rhythm ically while he was laying in bed. Has never had anythi ng like this happen before . Lasted about 3 minute s. Whole leg felt numb afterw ards but is now back to normal . Was weaker after the event but now back to his new baseli ne. No change in mentat ion, no urinar y incont inence . Otherw ise in his usual state of health with today with no recent injuri es, no fevers , chills , rash, nausea , vomiti ng, abdomi nal pain, chest pain, shortn ess of breath , syncop e, or other concer ns. Relate d Data Home Medica tions Medica tion Instru ctions Record ed Confir med omepra zole 20 mg capsul e,eduardo yed 20 mg PO DAILY releas e dexame thason e 4 mg tablet 4 mg PO DAILY #14 tabs leveti raceta m 500 mg tablet 500 mg PO BID #60 tabs (Keppr a) Previo us Rx's Medica tion Instru ctions Record ed dexame thason e 4 mg tablet 4 mg PO DAILY #14 tabs leveti raceta m 500 mg tablet 500 mg PO BID #60 tabs (Keppr a) Allerg ies Allerg y/AdvR eac Type Severi ty Reacti on Status Date / Time aspiri n Allerg y Severe Verifi ed 11:51 Penici llins AdvRea c Interm ediate Other (See Unveri fied 11:03 Commen t) Penny arevalo Stated Compla int: GenMed ical MK: 3 Review of System s Narrat van: see HPI Exam Narrat van Exam Narrat van: Genera l: Alert, well appear ing, well nouris hed, in no acute distre ss. Head: Normoc ephali c, atraum atic Neck: Trache a midlin e, ???Nec k supple . ENT: ???MMM .??? No oropha rygeal lesion s or exudat e. Cardia c: ???RRR , no murmur s apprec iated Resp: No respir atory distre ss. CTAB. Abd: ???Sof t, non-di stende d, nonten graciela : ???No suprap ubic tender ness. No CVA tender ness. Extrem ities: ???No deform ities. ??? No periph eral edema. Neuro: ??? GCS 15. Fluent speech , no dysart hria. Motor- 5/5 streng th symmet trae bilate ral upper extrem ities includ ing should er abduct ors/ad ductor s, elbow flexor s/exte nsors, wrist flexor s/exte nsors, finger abduct ors/ad ductor s. 5/5 LLE, hipfle xors, knee flexor s/exte nsors, ankle dorsif lexors and андрей r flexor s. 4/5 right hip flexor s, knee flexor s/extr enors, 3+/5 ankle dorsfl exion and planta r flexio n Sensat ion- ???Int act to light touch and symmet trae multip le dermat omes includ ing upper and lower extrem ities Coordi nation - No dysmet rogerio on finger to nose CRANIA L NERVES : II: Pupils equal and reacti ve, III, IV, : EOM intact , no gaze prefer ence or deviat ion, no nystag mus. V: normal sensat ion in V1, V2, and V3 segmen ts bilate rally VII: no asymme try, no nasola bial fold flatte tobias VIII: normal hearin g to speech IX, X: normal palata l elevat ion, no uvular deviat ion XI: 5/5 head turn and 5/5 should er shrug bilate rally XII: midlin e tongue protru tirso Course Vital Signs Vital signs: Vital Signs Temper ature 37 C 22:40 Pulse 104 H 22:40 Respir atory Rate 18 22:40 Blood Pressu re 161/88 H 22:40 Pulse Oximet ry 98 22:40 Temper ature 37 C 22:47 Temper ature Source Tempor al Artery Scan 22:47 Pulse 105 H 22:47 Respir atory Rate 16 22:49 Respir atory Effort Normal , Non-La bored 22:49 Respir atory Depth Normal 22:49 Respir atory Patter n Normal 22:49 Blood Pressu re 161/10 2 H 22:47 Blood Pressu re Positi on Supine 22:47 Pulse Oximet ry 96 22:47 Oxygen Delive ry Method Room Air 22:47 Oxygen Flow Rate 0 22:40 Medica l Decisi on Making 62yo M with hx of lung cancer (in remiss ion) presen ting with RLE tremor . Has had three weeks of right sided (prima rily LE) weakne ss with plan for MRI which has not yet be schedu led; today had jerkin g of his RLE that sounds like focal seizur e. Last three minute s, 'numb' afterw ards, now back to his new baseli ne. Vital signs reassu ring, non-to xic on exam. Does have signif icant RLE weakne ss, otherw ise benign neurol ogic exam, not concer tobias for increa sed ICP or brain hernia tion Will workup for new onset seizur e, high suspic ion for brain mets. Histor y not concer tobias for syncop e or cardia c event. EKG NSR, no ST segmen t or T wave abnorm alitie s to sugges t occlus van DE. Labs review ed as below, CBC CMP reassu ring with no action able abnorm alitie s, no electr olyte derang ements . TSH elevat ed with normal T4. CTA head and neck indepe ndentl y review ed, left sided mass with large amount of surrou nding edema; discus sed with radiol ogist and agree with radiol ogy read below. Discus sed with Dr. Stuart s [facility] neuros urgery ; advise d starti ng 500mg BID keppra , dexame thason e, and outpat ient MRI; they will follow up with liss workman after MRI, no indica tion seen for admiss ion at this time. Rubina gayle and plan discus sed with liss workman. He remain s non-to xic appear ing with reassu ring vital signs and an overal l reassu ring neurol ogic exam albeit with RLE weakne ss. He is able to ambula te. Discha rged home; discha rge instru ctions and return precau tions were review ed with liss workman who verbal ized unders ferminezekiel g. All questi ons were answer ed and he is in full agreem ent with the plan. Sejal osorio Data Radiol ogic Study: Sejal osorio: CT Scan Radiol ogist' s impres tirso: IMPRES TIRSO: 1. 2.3 cm mutual fund manager osuper ior left fronta l brain neopla sm with extens van surrou nding vasoge bentley edema. 2. No acute vascul ar rubina gayle. Lab Data Lab result s review ed: Yes I review ed the liss workman's lab result s. Labs: Katherine rios Tests Range/ Units 23:04 WBC (4.4-1 0.8) 10 3/uL 8.14 RBC (4.36- 5.78) 10 6/uL 4.55 Hgb (13.5- 17.5) g/dL 13.8 Hct (40.0- 50.0) % 39.4 L MCV (80-95 ) fL 87 MCH (27.0- 33.0) pg 30.3 MCHC (32.0- 36.0) % 35.0 RDW (11.8- 14.1) % 12.6 Plt Count (130-4 00) 10 3/uL 202 MPV (8.0-1 1.0) fL 8.9 Immatu re Gran % 2.2 Neutro phils % 77.0 Lympho cytes % 10.4 Monocy bhargavi % 8.7 Eosino phils % 1.2 Basoph ils % 0.5 Nuclea jamshid RBC % (0.0-0 .3) % 0.0 Absolu te Neutro phils (1.2-6 .7) 10 3/uL 6.26 Absolu te Lympho cytes (1.2-3 .4) 10 3/uL 0.85 L Absolu te Monocy bhargavi (0.1-0 .8) 10 3/uL 0.71 Absolu te Eosino phils (0.0-0 .7) 10 3/uL 0.10 Absolu te Basoph ils (0.0-0 .2) 10 3/uL 0.04 Sodium (136-1 45) mmol/L 140 Potass ium (3.5-5 .1) mmol/L 3.8 Chlori de (98-10 7) mmol/L 99 Carbon Dioxid e (21.0- 32.0) mmol/L 28.6 Anion Gap (3-11) mmol/L 12.4 H BUN (7-18) mg/dL 18 Creati nine (0.70- 1.30) mg/dL 1.3 Est GFR (CKD-E PI 2020) (mL/mi n/1.73 m2) 61.35 Glucos e (74-10 6) mg/dL 117 H Calciu m (8.5-1 0.1) mg/dL 9.4 Total Biliru bin (0.2-1 .0) mg/dL 0.4 AST (15-37 ) U/L 41 H ALT (16-63 ) U/L 59 Alkali ne Phosph atase (46-11 6) U/L 92 Total Protei n (6.4-8 .2) g/dL 7.8 Albumi n (3.4-5 .0) g/dL 3.9 TSH (0.36- 3.74) uIU/mL 8.35 H Free T4 (0.76- 1.46) ng/dL 0.85 Qualit y:SDOH Health Relate d Social Needs: No Data to Displa y PFSH All Active Proble ms (Updat ed @ 03:00 by Yanely Claudio MD) Focal motor seizur e (Acute ) Fronta l mass of brain (Acute ) Chroni c low back pain (Chron ic) Dyspne a (Acute ) Renal insuff icienc y, mild (Acute ) CAP (commu nity acquir ed pneumo farhana) (Acute ) Medica l Histor y (Revie wed @ 19:38 by Yon Kaba MD) Lung cancer Family Histor y (Updat ed @ 11:58 by Yvonne Segal RN, RN) Mother Deceas ed, 70s No proble ms noted. 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 Tobacc o Use Quit Date: Pack-y ears: 40 Smokin g risk assess ment perfor med?: Yes Alcoho l Intake : curren t Alcoho l Intake freque ncy: a few times a month Alcoho l type: hard liquor Drug use: Never Substa nce use type: does not use Househ old member s: spouse Number of Childr en: 3 number of grandc hildre n: 1 What is your relati onship status ?: marriterence saldaña Panel score (0-1 are the most social ly isolat ed patien ts): 1 Do you feel safe at home: Yes Do you feel safe in your relati onship ?: Yes Discha rge Plan Dispos ition Patien t Dispos ition: Home Condit ion: Stable Discha rge Detail s Clinic al Impres tirso: Fronta l mass of brain, Focal motor seizur e Primar y Care Provid er: Ji Butterfield nafisa ED Provid er: Iraida Claudio Home Meds and New Rx's Prescr iption s: New leveti raceta m [Keppr a] 500 mg tablet 500 mg PO BID Qty: 60 0RF dexame thason e 4 mg tablet 4 mg PO DAILY Qty: 14 0RF Contin ued omepra zole 20 mg capsul e,eduardo yed releas e(/E C) 20 mg PO DAILY Discha rge Instru ctions Instru ctions : New-On set Seizur e in Adults (ED) Additi onal Instru ctions : Take keppra twice a day. Take the steroi d once a day. Call your oncolo gist today to gino travis an appoin nadeem as soon as shantanu travis to follow up on your visit today. An MRI has been ordere d- please come to the hospit al to have this done. You will need to follow up with oncignacia cohen and [facility] neuros urgery . Neuros urgery will call you after they see your MRI result s. Return to the emerge nhy depart ment for new or worsen ing sympto ms includ ing severe headac he, vomiti ng, worsen ing weakne ss, passin g out, or if you have any other concer ns. Referr als: Ji Butterfield [Prima ry Care Provid er] - cc: GREER TORRES,YAHAIRA A ------ ------ ------ ------ ------ ------ ------ ------ ------ ------ ------ --- Dictat ed by: Iraida Claudio M.D. Dictat ed: Time: 2299 Date: 353 Date: Date: Transc ribed Date: Transc ribed Time: 2299 By: KARON This is privil eged, confid ential inform ation, intend ed only for the provid er named. Any use or distri bution by any person other than this provid er is strict ly prohib ited. If you receiv e this report in error, please notify us immyulia ruffin at [phone] and return the origin al report to us at the addres s above. Thank you. [email or web address] [facility] [address] [place], [address] 04/25/2023 07:53:08 04/25/19 24 04/25/2023 elect gilma chi am EKG LISS Workman NAME: Sisi Bragg rt R UNIT #: [id number] ORDERTanesha NG PROVID ER: Lisa Giron i, M.D. ACCOUN T #: [id number] PRIMAR Y CARE PROVID ER: YAHAIRA BUTTERFIELD NP DATE/T JAE OF SERVIC E : 2239 : 1960 PERFOR ANEL LOCATI ON: ER ------ ------ --- APPROV ED REPORT ------ ------ -- Exam: Restin g ECG Reason for Exam: evan Leija t Locati on: E HR:98 bpm ECG Measur ements Heart Rate 98 AXIS MI 192 P 5 QRSd 92 QRS 64 QT 327 T 11 QTc 419 Conclu tirso Sinus rhythm ... V-rate 60- 99 approp riate interv als No ST segmen t or T wave abnorm evelin aleman to sonia workman occlus van DE ------ ------ ------ ------ ------ ------ ------ ------ ------ ------ ------ ------ ------ ------ ------ ------ ---- ------ - E-Sign Date: E-Sign Time: 0500 [email or web address] [facility] [address] [place], [address] 04/25/2023 07:53:08 04/25/19 24 04/25/2023 elect gilma chi am EKG LISS Workman NAME: Sisi Bragg rt R UNIT #: [id number] ORDERI NG PROVID ER: Lisa Giron i, M.D. ACCOUN T #: [id number] PRIMAR Y CARE PROVID ER: YAHAIRA BUTTERFIELD NP DATE/T JAE OF SERVIC E : 0 : 1960 ELEAZAR TAM LOCATI ON: ER ------ ------ --- APPROV ED REPORT ------ ------ -- Exam: Restin g ECG Reason for Exam: evan Leija t Locati on: E HR:98 bpm ECG Measur ements Heart Rate 98 AXIS MI 192 P 5 QRSd 92 QRS 64 QT 327 T 11 QTc 419 Conclu tirso Sinus rhythm ... V-rate 60- 99 approp riate interv als No ST segmen t or T wave abnorm alitie s to sugges t occlus van DE ------ ------ ------ ------ ------ ------ ------ ------ ------ ------ ------ ------ ------ ------ ------ ------ ---- ------ - E-Sign Date: E-Sign Time: 0500 ------ ------ --- ADDEND UM APPROV ED REPORT ------ ------ -- Exam: Restin g ECG Reason for Exam: evan workman Locati on: E HR:98 bpm ECG Measur ements Heart Rate 98 AXIS MI 192 P 5 QRSd 92 QRS 64 QT 327 T 11 QTc 419 Conclu tirso Sinus rhythm ... V-rate 60- 99 approp riate interv als No ST segmen t or T wave abnorm alitie s to sugges t occlus van DE I have review ed and I agree with the emerge ncy room physic horacio's ECG interp retati on. Electr onical ly signed by: [id number] Cosign ed by: [email or web address] [facility] [address] [place], [address] 04/25/2023 08:52:29 04/25/19 24 04/25/2023 CT imagi ng repor t Liss t Name: Sisi Bragg rt R Unit #: [id number] Loc: ER Orderi ng Provid er: Iraida Claudio M.D.kevin t #: [id number] Status : DEP ER Primar y Care [facility] er: Ji Butterfield Date of Exam: Sex: M : 1960 Age: 62 Exam(s ) a CT:CT brain neck CTA Exam(s ) CT BRAIN NECK CTA EXAM: CT BRAIN NECK CTA CLINIC AL HISTOR Y: RLE evan ss x 3 weeks, RLE shakin g today. TECHNI QUE: Imagin g Protoc ol: Axial CT angiog irene was perfor med with multi- slice acquis ition and multi- planar and/or 3D recons tructi ons. CONTRA ST MATERI AL: Intrav enous: Omnipa que [address] volume :85 mL COMPAR QIANA: No priors for compar qiana. FINDIN GS: The examin ation is limite d due to patien t motion artifa ct. CT Head W/O and W: Ventri cles and Extra axial spaces : Normal in size and morpho logy for the patien t's age. Hemorr carlos: None. Cerebr al parenc hyma: There is a 1.8 x 2.4 cm periph erally enhanc ing mass in the high left pariet al lobe. There is a large amount of surrou nding edema. There is efface ment of the adjace nt sulci. There is no midlin e shift. Midlin e shift: None. Brains tem/Ce rebell um: Normal . Calvar ium: Normal . Visual ized Parana ericka sinuse s/Mast oids: Mild mucosa l thicke tobias in the parana ericka sinuse s. The mastoi d air cells are clear. Soft Tissue s: Unrema rkable . Enhanc ement: Unrema rkable . CTA Neck W: Common Caroti d: Right: No dissec tion, occlus ion or signif icant stenos is. Left: No dissec tion, occlus ion or signif icant stenos is. Head Up Operator Helper al Caroti d: Right: No occlus ion or signif icant stenos is. Left: No occlus ion or signif icant stenos is. Product Safety Technical Assistant al Caroti d: Right: No dissec tion, occlus ion or signif icant stenos is. Left: No dissec tion, occlus ion or signif icant stenos is. Verteb ral Artery : Right: No dissec tion, occlus ion or signif icant stenos is. Left: No dissec tion, occlus ion or signif icant stenos is. Lung Apices : There is an infilt rate seen in the right middle lobe. Bones: Within normal limits for the patien t's age. Soft Tissue s: Normal . Thyroi d gland: Unrema rkable . CTA Brain W: Product Safety Technical Assistant al Caroti d Arteri es: Mild calcif icatio n bilate rally in the cavern ous photography intern al caroti d arteri es. No signif icant stenos is. No occlus ion or aneury sm. Anteri or Cerebr al Arteri es: Right: No aneury sm, occlus ion or signif icant stenos is. Left: No aneury sm, occlus ion or signif icant stenos is. Middle Cerebr al Arteri es: Right: No aneury sm, occlus ion or signif icant stenos is. Left: No aneury sm, occlus ion or signif icant stenos is. Youth Officer ior Cerebr al Arteri es: Both cerebr al arteri es arise predom inantl y from the mutual fund manager ior commun icatin g arteri es which is a normal varian t. Right: No aneury sm, occlus ion or signif icant stenos is. Left: No aneury sm, occlus ion or signif icant stenos is. Verteb ral Arteri es: Right: No aneury sm, occlus ion or signif icant stenos is. Left: No aneury sm, occlus ion or signif icant stenos is. Basila r Artery : No aneury sm, occlus ion or signif icant stenos is. IMPRES TIRSO: 1. No large vessel occlus ion or signif icant stenos is on the CT angiog irene of the head. 2. 1.8 x 2.4 cm periph erally enhanc ing neopla sm in the high left pariet al lobe. There is extens van surrou nding edema. 3. No occlus ion or signif icant stenos is on the CT angiog irene of the neck. 4. Infilt rate in the right lung. CT scan of the chest should be consid ered for furthe r evalua tion. RADIAT ION DOSE DELIVE RED: 2,423. 15mGy. cm Total DLP DATA REPOSI TORY: All CT scans at this facili ty are submit jamshid to the [facility] Radiol ogy Data Regist ry (NRDR) Dose Index Regist ry (DIR) with the [employer] Radiol ogy (ACR). RADIAT ION OPTIMI ZATION : All CT scans at this facili ty use at least one of these dose optimi zation techni ques: automa jamshid exposu re contro l; mA and/or kV adjust ment per patien t size (inclu edna target ed exams where dose is matche d to clinic al indica tion); or iterat van recons tructi on. 218-0 007: Total DLP = 0.00 mGy-cm Ordere d By: Iraida Claudio M.D. CC: ------ ------ ------ ------ ------ ------ ------ ------ ------ ------ ------ ------ ---- Dictat ed By: Jourdan Valentine M.D. 1252 1252 Transc ribed By: Jourdan Valentine 1252 This is privil eged, confid ential inform ation intend ed only for the provid er named. Any use or distri bution by any person other than this provid er is strict ly prohib ited. If you receiv e this report in error, please notify us immedi karily at [phone] and return the origin al report to us at the addres s above. Thank- you. [email or web address] , [place], [address] 04/25/2023 13:08:46 04/26/19 24 04/26/2023 MRI, brain , w/wo contr ast Patien t Name: Sisi Bragg rt R Unit #: [id number] Loc: DI Orderi ng Provid er: Ji Butterfield Accoun t #: [id number] Status : REG CLI Primar y Care Provid er: Ji Butterfield nafsia Date of Exam: Sex: M Admiss ion Date: : 1960 Age: 62 Exam(s ) MR BRAIN WO/W EXAM: MR BRAIN WO/W CLINIC AL HISTOR Y: SEIZUR E, R56.9, H/O LUNG CA TECHNI QUE: Multip lanar multis equenc e MRI of the brain was perfor med. Both noninf used and contra st infuse d sequen rosie were perfor med. IV Contra st inject ed was cc Dotare m. COMPAR QIANA: MR MR BRAIN WO/W from [address] BRAIN NECK CTA from 2023 FINDIN GS: CEREBR AL PARENC HYMA: There is a E ring-e nhanci ng lesion in the high left pariet al lobe corres pondin g to what is seen on recent chest CT scan, this measur ing 2.3 by 1.8 cm by 2.0 cm cranio caudal . There is abunda nt surrou nding white matter edema, this edema extend ing down to the left side of the corpus callos um and exhibi ting some mass effect on the superi or aspect of the ipsila teral left latera l ventri crystal. There is, howeve r, no shift of midlin e struct ures. There is findin g consis tent with a neopla stic lesion in the high left pariet al lobe, probab ly metast atic given the histor y here.. There are no other ring-e nhanci ng lesion s in the brain. There is no signif icant focal signal abnorm ality in the cerebe llar hemisp heres nor within the serjio, midbra in, and thalam i. There are scatte red foci of FLAIR bright signal abnorm ality consis tent with chroni c small vessel diseas e. DWI: No areas of restri cted diffus ion to sugges t acute ischem ic event. SWI: No microh emorrh ages eviden t. There are no ring enhanc ing lesion s in the brain. There is no abnorm al mening eal enhanc ement. PITUIT POPPY GLAND: No mass nor parase llar abnorm ality. No obviou s abnorm ality in the cavern ous sinuse s. FLOW VOIDS: The expect ed flow void are noted. No eviden ce of obviou s aneury sm nor obviou s vascul ar malfor mation . PARANA ERICKA SINUSE S: The visual ized parana ericka sinuse s appear unrema rkable . ORBITS : No obviou s abnorm al findin gs. IMPRES TIRSO: 1. There is a solita ry 2.3 x 1.8 x 2.0 cm ring-e nhanci ng neopla stic lesion in the high left pariet al lobe with abunda nt surrou nding edema as descri bed above. Main consid eratio n is as to whethe r this somewh at thick- walled enhanc ing lesion is primar y or metast atic, given that it is a solita ry lesion . Howeve r, given the appare nt histor y of lung malign delores this is most probab ly metast atic. 2. Other findin gs are consis tent with chroni c small vessel ischem ic change s. No eviden ce of acute infarc t. No eviden ce of intrac ranial hemorr carlos. DATA REPOSI TORY: Ordere d By: Ji Butterfield CC: ------ ------ ------ ------ ------ ------ ------ ------ ------ ------ ------ ------ - Dictat ed By: Timbo Collado M.D. 1225 122 Transc ribed By: Tobias VENTURA,Shantanu roberts 122 This is privil eged, confid ential inform ation intend ed only for the provid er named. Any use or distri bution by any person other than this provid er is strict ly prohib ited. If you receiv e this report in error, please notify us immedi laly at and return the origin al report to us at the addres s above. Thank- you. [email or web address] [facility] [address] [place], [address] 06/24/2023 07:51:30 05/30/19 24 05/30/2023 CT imagi ng repor t Patien t Name: Sisi Bragg rt R Unit #: [id number] Loc: DI Orderi ng Provid er: JuwanKrystal saldaña lexand er O Accoun t #: [id number] Status : REG CLI Primar y Care Provid er: Ji Butterfield nafisa Date of Exam: Sex: M : 1960 Age: 62 Exam(s ) a CT:CT head wo Exam(s ) CT HEAD WO EXAM: CT HEAD WO CLINIC AL HISTOR Y: SECOND POPPY NEOPLA SM OF BRAIN, C79.31 ,S/P RADIAT ION,AC SANJAY WORSEN ING SYMPTO MS. TECHNI QUE: Imagin g Protoc ol: Axial comput ed tomogr aphy images with wilson l and sagitt al reform atted images were create d and review ed COMPAR QIANA: CT CT BRAIN NECK CTA from 2023 MR MR BRAIN WO/W from 2023 FINDIN GS: Ventri cles and Extra axial spaces : No change in appear ance. Mild mass effect on the right latera l ventri crystal. Hemorr carlos: None. Cerebr al parenc hyma: No eviden ce of acute infarc t. No change in size of high left pariet al mass. Simila r mount of surrou nding white matter edema. No new mass.. Midlin e shift: None. Brains tem/Ce rebell um: Normal . Calvar ium: Normal . Visual ized Parana ericka sinuse s:Francy r. Mastoi ds: Clear. Soft Tissue s: Unrema rkable . ORBITS : Unrema rkable . PITUIT POPPY: Not enlarg ed. IMPRES TIRSO: Stable size of high left pariet al mass. Stable amount of surrou nding edema. No new findin gs. RADIAT ION DOSE DELIVE RED: Total DLP DATA REPOSI TORY: All CT scans at this facili ty are submit jamshid to the [facility] Radiol ogy Data Regist ry (NRDR) Dose Index Regist ry (DIR) with the [employer] Radiol ogy (ACR). RADIAT ION OPTIMI ZATION : All CT scans at this facili ty use at least one of these dose optimi zation techni ques: automa jamshid exposu re contro l; mA and/or kV adjust ment per patien t size (inclu edna target ed exams where dose is matche d to clinic al indica tion); or iterat van recons tructi on. 0325-0 018: Total DLP = 0.00 mGy-cm Ordere d By: Krystal Tovar O CC: ------ ------ ------ ------ ------ ------ ------ ------ ------ ------ ------ ------ ---- Dictat ed By: Arsenio Cazares 1319 131 Transc ribed By: Carson Malik 1318 This is privil eged, confid ential inform ation intend ed only for the provid er named. Any use or distri bution by any person other than this provid er is strict ly prohib ited. If you receiv e this report in error, please notify us immedi karily at and return the origin al report to us at the addres s above. Thank- you. [email or web address] [facility] [address] [place], [address] 05/30/2023 13:45:22 05/30/19 24 05/30/2023 CT imagi ng repor t Patien t Name: Sisi Bragg rt R Unit #: [id number] Loc: DI Orderi ng Provid er: Krystal Tovar er O Accoun t #: [id number] Status : REG CLI Primar y Care Provid er: Ji Butterfield Date of Exam: Sex: M : 1960 Age: 62 Exam(s ) a CT:CT chest/ abd/pe l w Exam(s ) CT CHEST/ ABD/PE L W EXAM: CT CHEST/ ABD/PE L W CLINIC AL HISTOR Y: RT UPPER LOBE LUNG CANCER C34.11 BRAIN CANCER C79.31 RT ADRENA L GLAND C79.71 . TECHNI QUE: Imagin g Protoc ol: Axial comput ed tomogr aphy images with wilson l and sagitt al reform atted images were create d and review ed CONTRA ST MATERI AL: Intrav enous: Omnipa que [address] volume :100 ml Oral: yes / COMPAR QIANA: CT CT BRAIN NECK CTA from 2023 CT,PT NM PET CT STANDA RD SKULL BASE TO MID-TH IGH from 2023 FINDIN GS: CHEST: Trache obronc hial tree: Patent where visual ized. Pulmon poppy parenc hyma: New 6 millim eter nodule superi or segmen t of the left lower lobe medial ly. Stable tiny nodule left lung apex. Stable areas of scarri ng in the right middle lobe and right hilar region . Pleura : No effusi on or pneumo thorax . Lymph nodes: Within normal limits . Aorta: Thorac ic portio n non-di lated. Heart: No perica rdial effusi on. Bones: Unrema rkable for age. No lytic or blasti c lesion s.No compre ssion fractu res. Soft tissue s: Unrema rkable . ABDOME N and PELVIS : Liver: Mildly enlarg ed. Hepati c steato sis. No measur able mass. Gallbl adder and biliar y tract: No eviden ce of stones or wall thicke tobias. No biliar y dilata tion. Pancre as: Normal densit y, no abnorm al calcif icatio ns or inflam matory proces s. Spleen : Normal . Kidney s: Normal size, contou r and axis. No radiod ense stones . No obstru ctive uropat hy. No suspic ious masses seen. Adrena l glands : Right adrena l gland appear s slight ly thicke thao compar ed to the left. Aorta: Abdomi nal portio n non-di lated. Athero sclero tic change s. Lymph nodes: 19 x 7 by 12 millim eter lymph node adjace nt to the left adrena l gland. Small aortoc aval lymph nodes at the level of the renal vessel s, larges t 9 millim eters in short axis. Additi onal small left para-a ortic nodes at the level of the lower pole of the kidney s, measur ing 6 and 8 millim eters in short axis. Soft tissue s: Small fatty contai tobias umbili lanny hernia . Bladde r: Unrema rkable . Bowel: No obstru ction or bowel wall thicke tobias. Perito yemi cavity : No ascite s. No focal collec tion. No mesent brian inflam matory respon se. Bones: No lytic or blasti c lesion s. Degene rative disc change s greate st at L5-S1. Reprod uctive organs : Prosta te slight ly enlarg ed. IMPRES TIRSO: Chest: Stable appear ing of post radiat ion change s in the right middle and perihi lar region s. New 6 millim eter nodule superi or segmen t left lower lobe. Stable tiny left apical nodule . Abdome n pelvis : Right adrena l gland is mildly thicke thao compar ed to the left but no focal nodule is seen. Small para-a ortic lymph nodes which were seen to be PET avid on recent PET-CT .. RADIAT ION DOSE DELIVE RED: Total DLP DATA REPOSI TORY: All CT scans at this facili ty are submit jamshid to the [facility] al Radiol ogy Data Regist ry (NRDR) Dose Index Regist ry (DIR) with the [employer] of Radiol ogy (ACR). RADIAT ION OPTIMI ZATION : All CT scans at this facili ty use at least one of these dose optimi zation techni ques: automa jamshid exposu re contro l; mA and/or kV adjust ment per patien t size (inclu edna target ed exams where dose is matche d to clinic al indica tion); or iterat van recons tructi on. 0325-0 003: Total DLP = 0.00 mGy-cm Ordere d By: Krystal Tovar er O CC: [facility] FILM LIBRAR Y ------ ------ ------ ------ ------ ------ ------ ------ ------ ------ ------ ------ ---- Dictat ed By: Arsenio Cazares 1428 Transc ribed By: Carson Malik 1428 This is privil eged, confid ential inform ation intend ed only for the provid er named. Any use or distri bution by any person other than this provid er is strict ly prohib ited. If you receiv e this report in error, please notify us immedi ately at [phone] and return the origin al report to us at the addres s above. Thank- you. the[address], [place], [address] 05/30/2023 15:12:58 07/15/19 24 07/15/2023 CT, chest , w/o contr ast Patien t Name: Sisi Bragg rt R Unit #: [id number] Loc: DI Orderi ng Provid er: Krystal Tovar er O Accoun t #: [id number] Status : REG CLI Primar y Care Provid er: Ji Butterfield Date of Exam: Sex: M : 1960 Age: 62 Exam(s ) a CT:CT chest/ abd/pe l w Exam(s ) CT CHEST/ ABD/PE L W EXAM: CT CHEST/ ABD/PE L W CLINIC AL HISTOR Y: C34.11 ,C79.3 1,C79. 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 TECHNI QUE: Imagin g Protoc ol: Axial comput ed tomogr aphy images with wilson l and sagitt al reform atted images were create d and review ed CONTRA ST MATERI AL: Intrav enous: Omnipa que [address] volume :100 ml Oral: yes, 900 mL barium PO COMPAR QIANA: CT CT CHEST/ ABD/PE L W from 2023 FINDIN GS: CHEST: Trache obronc hial tree: Patent . Pulmon poppy parenc hyma: Previo usly noted nodule in the medial superi or segmen t of the left lower lobe is no longer seen. Stable tiny nodule left lung apex. Stable area of scarri ng and increa sed densit ies around the right hilum extend ing into the right middle lobe. Pleura : No effusi on or pneumo thorax . Lymph nodes: Within normal limits . Aorta: Thorac ic portio n non-di lated. Heart: No perica rdial effusi on. Bones: Unrema rkable for age. No lytic or blasti c lesion s.No compre ssion fractu res. Soft tissue s: Unrema rkable . ABDOME N and pelvis : Liver: Hepati c steato sis. No measur able mass. Gallbl adder and biliar y tract: No eviden ce of stones or wall thicke tobias. No biliar y dilata tion. Pancre as: Normal densit y, no abnorm al calcif icatio ns or inflam matory proces s. Spleen : Normal . Kidney s: Normal size, contou r and axis. No radiod ense stones . No obstru ctive uropat hy. No suspic ious masses seen. Adrena l glands : Stable appear ance of mild right adrena l thicke tobias. No focal masses seen. Aorta: Abdomi nal portio n non-di lated. Lymph nodes: Stable size and appear ance of lymph nodes in the para-a ortic region . No new adenop athy. Soft tissue s: Small fatty contai tobias umbili lanny hernia . Bladde r: Unrema rkable . Bowel: No obstru ction or bowel wall thicke tobias. Perito yemi cavity : No ascite s. No focal collec tion. No mesent brian inflam matory respon se. Bones: Degene rative change s at L5-S1. Reprod uctive organs : Prosta te mildly enlarg ed. IMPRES TIRSO: Stable appear ance of right middle lobe and right perihi lar scarri ng. Previo usly noted 6 millim eter nodule superi or segmen t left lower lobe no longer identi fied. No new abnorm ality in the chest. Stable para-a ortic adenop athy. Stable appear ance of mild thicke tobias of the right adrena l gland. No new abnorm ality. RADIAT ION DOSE DELIVE RED: 2,704. 69mGy. cm Total DLP DATA REPOSI TORY: All CT scans at this facili ty are submit jamshid to the [facility] al Radiol ogy Data Regist ry (NRDR) Dose Index Regist ry (DIR) with the [employer] Radiol ogy (ACR). RADIAT ION OPTIMI ZATION : All CT scans at this facili ty use at least one of these dose optimi zation techni ques: automa jamshid exposu re contro l; mA and/or kV adjust ment per patien t size (inclu edna target ed exams where dose is matche d to clinic al indica tion); or iterat van recons tructi on. 509- 004: Total DLP = 0.00 mGy-cm Ordere d By: Krystal Tovar er O CC: ------ ------ ------ ------ ------ ------ ------ ------ ------ ------ ------ ------ ---- Dictat ed By: Arsenio Cazares [id number] 1119 Transc ribed By: Carson Malik 1119 This is privil eged, confid ential inform ation intend ed only for the provid er named. Any use or distri bution by any person other than this provid er is strict ly prohib ited. If you receiv e this report in error, please notify us immedi karily at and return the origin al report to us at the addres s above. Thank- you. [email or web address] [facility] [address], [place], [address] 08/19/2023 10:36:46 08/12/19 24 08/12/2023 MRI imagi ng repor t Patiesteban t Name: Sisi Bragg rt R Unit #: [id number] Loc: DI Orderi ng Provid er: Elissa Marie t #: [id number] Status : REG CLI Primar y Care Provid er: Heck NC,T nafisa Date of Exam: 09/27 Sex: M Admiss ion Date: : 1960 Age: 62 Exam(s ) MR BRAIN WO/W EXAM: MR BRAIN WO/W CLINIC AL HISTOR Y: BRAIN CANCER C79.31 LUNG CANCER METS TO BRAIN S/P RADIAT ION, SURVEI LLANCE TECHNI QUE: Multip lanar multis equenc e MRI of the brain was perfor med. CONTRA ST MATERI AL: IV Contra st: 20 mL of Dotare m contra st admini stered . COMPAR IQANA: MR MR BRAIN WO/W from 2020 MR MR BRAIN WO/W from 2023 FINDIN GS: VENTRI CLES AND EXTRA AXIAL SPACES : Normal in size and morpho logy for the patien t's age. HEMORR CARLOS: None. CEREBR AL PARENC HYMA: No focus of restri cted diffus ion to sugges t acute infarc t. 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 There has been interv al decrea se in size of the metast atic focus in the left pariet al lobe which now measur es 1.1 x 0.7 cm. This compar es to 2.3 x 1.7 cm. (Serlisbeth s [id number] image 22). There is also been a signif icant decrea se in size in the perile sional edema. No new intrac ranial masses are identi fied. MIDLIN E SHIFT: None. BRAINS TEM/CE REBELL UM: Normal . CALVAR IUM: Normal . ENHANC EMENT: Please see the above sectio n under cerebr al parenc hyma. VISUAL IZED PARANA ERICKA SINUSE S/MAST OIDS: There is a mucous retent ion cyst or polyp in the right maxill poppy sinus. UPPER SKAGIT OF BALL : Normal flow void. PITUIT POPPY GLAND: Unrema rkable . OTHER FINDIN GS: IMPRES TIRSO: 1. Since the prior examin ation there has been a decrea se in size of the left pariet al metast atic focus which now measur es 1.1 x 0.7 cm, compar ed to 2.3 x 1.7 cm. 2. No new metast atic foci are identi fied. 3. No eviden ce of an acute infarc t. 4. 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 DATA REPOSI TORY: Rika saldaña By: Naveed Marie CC: ------ ------ ------ ------ ------ ------ ------ ------ ------ ------ ------ ------ - Dictat ed By: Jourdan Valentine M.D. 0956 955 Transc ribed By: Jourdan Valentine 955 This is privil eged, confid ential inform ation intend ed only for the provid er named. Any use or distri bution by any person other than this provid er is strict ly prohib ited. If you receiv e this report in error, please notify us immedi ately at and return the origin al report to us at the addres s above. Thank- you. [email or web address] [facility] [address] [place], [address] 08/15/2023 06:21:55 08/12/19 24 08/12/2023 MRI imagi ng repor t Patien t Name: Sisi Bragg rt R Unit #: [id number] Loc: DI Orderi ng Provid er: Naveed Marie Accoun t #: [id number] Status : REG CLI Primar y Care [facility] nafisa Date of Exam: 09/27 Sex: M Admiss ion Date: : 1960 Age: 62 Exam(s ) MR BRAIN WO/W EXAM: MR BRAIN WO/W CLINIC AL HISTOR Y: BRAIN CANCER C79.31 LUNG CANCER METS TO BRAIN S/P RADIAT ION, SURVEI LLANCE TECHNI QUE: Multip lanar multis equenc e MRI of the brain was perfor med. CONTRA ST MATERI AL: IV Contra st: 20 mL of Dotare m contra st admini stered . COMPAR QIANA: MR MR BRAIN WO/W from 2020 MR MR BRAIN WO/W from 2023 FINDIN GS: VENTRI CLES AND EXTRA AXIAL SPACES : Normal in size and morpho logy for the patien t's age. HEMORR CARLOS: None. CEREBR AL PARENC HYMA: No focus of restri cted diffus ion to sugges t acute infarc t. 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 There has been interv al decrea se in size of the metast atic focus in the left pariet al lobe which now measur es 1.1 x 0.7 cm. This compar es to 2.3 x 1.7 cm. (Lisa aleman [id number] image 22). There is also been a signif icant decrea se in size in the perile sional edema. No new intrac ranial masses are identi fied. MIDLIN E SHIFT: None. BRAINS TEM/CE REBELL UM: Normal . CALVAR IUM: Normal . ENHANC EMENT: Please see the above sectio n under cerebr al parenc hyma. VISUAL IZED PARANA ERICKA SINUSE S/MAST OIDS: There is a mucous retent ion cyst or polyp in the right maxill poppy sinus. UPPER SKAGIT OF BALL : Normal flow void. PITUIT POPPY GLAND: Unrema rkable . OTHER FINDIN GS: IMPRES TIRSO: 1. Since the prior examin ation there has been a decrea se in size of the left pariet al metast atic focus which now measur es 1.1 x 0.7 cm, compar ed to 2.3 x 1.7 cm. 2. No new metast atic foci are identi fied. 3. No eviden ce of an acute infarc t. 4. 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 DATA REPOSI TORY: Ordere d By: Naveed Marie CC: ------ ------ ------ ------ ------ ------ ------ ------ ------ ------ ------ ------ - Dictat ed By: Jourdan Valentine M.D. 955 Transc ribed By: Jourdan Valentine 955 This is privil eged, confid ential inform ation intend ed only for the provid er named. Any use or distri bution by any person other than this provid er is strict ly prohib ited. If you receiv e this report in error, please notify us immedi ately at [phone] and return the origin al report to us at the addres s above. Thank- you. [email or web address] [facility] [address], [place], [address] 08/15/2023 06:21:56 09/01/19 24 09/01/2023 CT imagi ng repor t Patien t Name: Sisi Bragg rt R Unit #: [id number] Loc: DI Orderi ng Provid er: AZUL HUDSON RON Accoun t #: [id number] Status : REG CLI Primar y Care Provid er: Heck NC,T nafisa Date of Exam: 08/06 09/27 Sex: M : 1960 Age: 62 Exam(s ) a CT:CT chest/ abd/pe l w Exam(s ) CT CHEST/ ABD/PE L W EXAM: CT CHEST/ ABD/PE L W CLINIC AL HISTOR Y: CANCER OR R UPPER LOBE LUNG C34.11 TECHNI QUE: Imagin g Protoc ol: Axial comput ed tomogr aphy images with wilson l and dino al reform atted images were create d and review ed CONTRA ST MATERI AL: Intrav enous: Omnipa que [address] volume :100 mL Oral: Yes COMPAR QIANA: CT CT CHEST PE CTA from 2021 CT,PT NM PET CT STANDA RD SKULL BASE TO MID-TH IGH from [address] CHEST/ ABD/PE L W from [address] CHEST/ ABD/PE L W from 2023 FINDIN GS: CHEST: Trache obronc hial tree: Patent where visual ized. Pulmon poppy parenc hyma: There has been no change in the area of scarri ng and bronch iectas is in the right hilum. There is a new 5 mm area of nodula rity in the left upper lobe (serie s 7, image 2-2). No focal consol idatin g infilt rates are seen. No yuliana ectura l distor tion. Visual ized thyroi d gland: Unrema rkable . Medias tinum and Amaris: No domina nt adenop athy or fluid collec tion. The esopha virginie is unrema rkable . There is a small hiatal hernia . Pleura : No effusi on or pneumo thorax . Heart: The heart is not dilate d. No wilson ry artery calcif icatio ns are seen. No perica rdial effusi on. Pulmon poppy arteri es: Due to the timing of the bolus, the pulmon poppy arteri es are not opacif ied well enough for evalua tion of pulmon poppy emboli . Aorta: Thorac ic aorta non-di lated. No eviden ce of dissec tion. Athero sclero tic calcif icatio n is presen t. Lymph nodes: Within normal limits . Soft tissue s: Bilate ral gyneco mastia . Bones: Within normal limits for the patien t's age. ABDOME N: Liver: There is decrea sed attenu ation of the liver sugges ting fatty infilt ration . The liver measur es 21 cm long. No measur able mass. Portal , Superi or Mesent brian, and Spleni c Veins: Unrema rkable . Gallbl adder and Biliar y Tract: No radiod ense calcul us or dilati on. Pancre as: Normal densit y, no abnorm al calcif icatio ns or inflam matory proces s. Stable cystic lesion s in the body and tail of the pancre as. Spleen : Normal . Adrena ls: Stable adrena l glands . Kidney s: Normal size, contou r and axis. No radiod ense stones or obstru ctive uropat hy. No masses seen. Abdomi nal Aorta: Abdomi nal portio n non-di lated. Athero sclero tic calcif icatio n is presen t. Bowel: No obstru ction or bowel wall thicke tobias. Note is again made of a duoden al divert iculum . The append ix is normal . Perito yemi Cavity : No ascite s, collec tion or mesent brian inflam matory respon se. No free air. Lymph Nodes: There is been signif icant decrea se in size in the periao rtic adenop athy. Bones: Within normal limits for the patien t's age. No aggres sive osseou s lesion s are identi fied. Soft Tissue s: There is a small fat contai tobias umbili lanny hernia . PELVIS : Bladde r: There is diffus e thicke tobias of the wall of the urinar y bladde r. It is incomp letely disten ded. Reprod uctive Organs : Mildly enlarg ed prosta te gland. Lymph Nodes: Within normal limits . Bones: Within normal limits . IMPRES TIRSO: 1. Signif icant decrea se in size of the periao rtic lymph nodes. 2. Otherw ise, stable findin gs in the abdome n and pelvis . 3. Stable scarri ng and bronch iectas is in the right hilum. 4. New 5 mm nodule in the left upper lobe. RADIAT ION DOSE DELIVE RED: 2,976. 21mGy. cm Total DLP DATA REPOSI TORY: All CT scans at this facili ty are submit jamshid to the Nation al Radiol ogy Data Regist ry (NRDR) Dose Index Regist ry (DIR) with the [employer] Radiol ogy (ACR). RADIAT ION OPTIMI ZATION : All CT scans at this facili ty use at least one of these dose optimi zation techni ques: automa jamshid exposu re contro l; mA and/or kV adjust ment per patien t size (inclu edna target ed exams where dose is matche d to clinic al indica tion); or iterat van recons tructi on 005: Total DLP = 0.00 mGy-cm Ordere d By: AZUL HUDSON CC: ------ ------ ------ ------ ------ ------ ------ ------ ------ ------ ------ ------ ---- Dictat ed By: Jourdan Valentine M.D. 161 161 Transc ribed By: Jourdan Valentine 1611 This is privil eged, confid ential inform ation intend ed only for the provid er named. Any use or distri bution by any person other than this provid er is strict ly prohib ited. If you receiv e this report in error, please notify us immedi ately at [phone] and return the origin al report to us at the addres s above. Thank- you. [email or web address] [facility] [address] [place], [address] 09/02/2023 16:44:52 09/07/19 24 04/26/2023 MRI imagi ng repor t Patien t Name: Sisi Bragg rt R Unit #: [id number] Loc: DI Orderi ng Provid er: Ji Rosen nafisa Accoun t #: [id number] Status : REG CLI Primar y Care Provid er: Ji Rosen Date of Exam: 04/08 Sex: M Admiss ion Date: : 1960 Age: 62 Addend a: Exam(s ) MR BRAIN WO/W ADDEND UM: The images were review ed. I agree with the findin gs and impres tirso below. Dictat ed By: Arsenio Cazares [id number] Arsenio Cazares 0758 Transc ribed By: Carson Malik [id number] Exam(s ) MR BRAIN WO/W EXAM: MR BRAIN WO/W CLINIC AL HISTOR Y: SEIZUR E, R56.9, H/O LUNG CA TECHNI QUE: Multip lanar multis equenc e MRI of the brain was perfor med. Both noninf used and contra st infuse d sequen rosie were perfor med. IV Contra st inject ed was cc Dotare m. COMPAR QIANA: MR MR BRAIN WO/W from [address] BRAIN NECK CTA from 2023 FINDIN GS: CEREBR AL PARENC HYMA: There is a E ring-e nhanci ng lesion in the high left pariet al lobe corres pondin g to what is seen on recent chest CT scan, this measur ing 2.3 by 1.8 cm by 2.0 cm cranio caudal . There is abunda nt surrou nding white matter edema, this edema extend ing down to the left side of the corpus callos um and exhibi ting some mass effect on the superi or aspect of the ipsila teral left latera l ventri crystal. There is, howeve r, no shift of midlin e struct ures. There is findin g consis tent with a neopla stic lesion in the high left pariet al lobe, probab ly metast atic given the histor y here.. There are no other ring-e nhanci ng lesion s in the brain. There is no signif icant focal signal abnorm ality in the cerebe llar hemisp heres nor within the serjio, midbra in, and thalam i. There are scatte red foci of FLAIR bright signal abnorm ality consis tent with chroni c small vessel diseas e. DWI: No areas of restri cted diffus ion to sugges t acute ischem ic event. SWI: No microh emorrh ages eviden t. There are no ring enhanc ing lesion s in the brain. There is no abnorm al mening eal enhanc ement. PITUIT POPPY GLAND: No mass nor parase llar abnorm ality. No obviou s abnorm ality in the cavern ous sinuse s. FLOW VOIDS: The expect ed flow void are noted. No eviden ce of obviou s aneury sm nor obviou s vascul ar malfor mation . PARANA ERICKA SINUSE S: The visual ized parana ericka sinuse s appear unrema rkable . ORBITS : No obviou s abnorm al findin gs. IMPRES TIRSO: 1. There is a solita ry 2.3 x 1.8 x 2.0 cm ring-e nhanci ng neopla stic lesion in the high left pariet al lobe with abunda nt surrou nding edema as descri bed above. Main consid eratio n is as to whethe r this somewh at thick- walled enhanc ing lesion is primar y or metast atic, given that it is a solita ry lesion . Howeve r, given the appare nt histor y of lung malign delores this is most probab ly metast atic. 2. Other findin gs are consis tent with chroni c small vessel ischem ic change s. No eviden ce of acute infarc t. No eviden ce of intrac ranial hemorr carlos. DATA REPOSI TORY: Rika saldaña By: Greer BE,T nafisa CC: ------ ------ ------ ------ ------ ------ ------ ------ ------ ------ ------ ------ - Dictat ed By: Timbo Collado M.D. 1225 1225 Transc ribed By: Tobias VENTURA,Shantanu armando 1225 This is privil eged, confid ential inform ation intend ed only for the provid er named. Any use or distri bution by any person other than this provid er is strict ly prohib ited. If you receiv e this report in error, please notify us immedi ately at [phone] and return the origin al report to us at the addres s above. Thank- you. [facility] [address] [place], [address] 10/05/2023 10:19:02 09/07/19 24 04/26/2023 MR, angio gram, brain , w/wo contr ast No observ ation record ed. [facility] (Radiology) [address] [place], [address], 10/05/2023 10:18:14 Result Notes None recorded. Problems Name Status Onset Date Resolution Date Notes Provider Name and Address Organization Details Recorded Time Elevated blood-pressur e reading without diagnosis of hypertension Active 2020 Problem Code: R03.0; Problem Code Type: ICD-10; Not Available [facility] 3 05:57:14 Disorder of kidney and/or ureter Active 2020 Problem Code: N28.9; Problem Code Type: ICD-10; Not Available [facility] 3 05:57:14 General examination of patient Active 2020 Problem Code: Z00.8; Problem Code Type: ICD-10; Not Available [facility] 3 05:57:14 Solitary nodule of lung Active 201806/12/2018 - Comments only - Leroy Keating - CAT scan done on 05/26/2018 revealed a 1.3 cm pulmonary nodule in the right middle lobe. Discussed in detail about different treatment modalities including invasive versus noninvasive method including excision of the pulmonary nodule and getting a PET scan done to rule out the etiology of his pulmonary nodule. Educated him on PET scan procedure. We will try to get preauthorizat ion with his insurance to get a PET scan done. Further treatment plan pending PET scan result. Problem Code: R91.1; Problem Code Type: ICD-10; Not Available [facility] 3 05:57:15 Dyspnea Active 2018 Problem Code: R06.00; Problem Code Type: ICD-10; Not Available [facility] 3 05:57:15 Low back pain Active 2018 Problem Code: M54.5; Problem Code Type: ICD-10; Not Available [facility] 3 05:57:15 Alcohol abuse Completed 201810/08/2020 Problem Code: F10.99; Problem Code Type: ICD-10; Not Available [facility] 3 05:57:15 Nicotine dependence Completed 201810/08/2020 Problem Code: Z87.891; Problem Code Type: ICD-10; Not Available [facility] 3 05:57:15 Lung field abnormal Completed 201812/01/2022 Problem Code: R91.8; Problem Code Type: ICD-10; Not Available [facility] 3 05:57:16 Chest pain Completed 201812/01/2022 Problem Code: R07.89; Problem Code Type: ICD-10; Not Available [facility] 3 05:57:16 Tobacco user Active 2022 Problem Code: Z72.0; Problem Code Type: ICD-10; Not Available [facility] 4 05:37:10 Adult health examination Active 2022 Problem Code: Z00.00; Problem Code Type: ICD-10; Not Available [facility] 4 05:37:10 Family history of malignant neoplasm of prostate Active 2022 Problem Code: Z80.42; Problem Code Type: ICD-10; Not Available [facility] 4 05:37:10 Cough Active 2022 Problem Code: R05.8; Problem Code Type: ICD-10; Not Available [facility] 4 05:37:10 Impacted cerumen in left ear Active 2022 Problem Code: H61.22; Problem Code Type: ICD-10; Not Available [facility] 4 05:37:10 Notes:*Problem Name: Adenoca rcinoma, right lung *Problem Status: active *Comments: *Problem Code: C34.91 *Problem Code Type: ICD-10 *Note Date: 12/12/2020 Problem Notes None recorded. Procedures Surgical History None recorded. Imaging Results Imaging Date Name Status LastModified by Organization Details LastModified Time 04/25/2023 vrad report completed the[address] [place], [address] 04/25/2023 07:53:08 04/24/2023 ED visit note completed [address] [place], [address] 04/25/2023 07:53:08 04/25/2023 electrocardiogram completed [address] [place], [address] 04/25/2023 07:53:08 04/25/2023 electrocardiogram completed [address] [place], [address] 04/25/2023 08:52:29 04/25/2023 CT imaging report completed [address] [place], [address] 04/25/2023 13:08:46 04/26/2023 MRI, brain, w/wo contrast completed [address] [place], [address] 06/24/2023 07:51:30 05/30/2023 CT imaging report completed [address] [place], [address] 05/30/2023 13:45:22 05/30/2023 CT imaging report completed [address] [place], [address] 05/30/2023 15:12:58 07/15/2023 CT, chest, w/o contrast completed [address] [place], [address] 08/19/2023 10:36:46 08/12/2023 [facility] imaging report [facility] [address] [place], [address] 08/15/2023 06:21:55 08/12/2023 MRI imaging report completed [facility] [address] [place], [address] 08/15/2023 06:21:56 09/01/2023 CT imaging report completed [address] [place], [address] 09/02/2023 16:44:52 04/26/2023 MRI imaging report [facility] [place], [address] 10/05/2023 10:19:02 04/26/2023 MR, angiogram, brain, w/wo contrast completed [facility] (Radiology) [address] [place] [address] [place], [address], 10/05/2023 10:18:14 Procedure Notes None recorded. Medical Equipment None Reported. Allergies Allergen ID Allergen Name Allergen Category Reaction Reaction Severity Criticality Documentation Date Start Date Code Code System Note Provider Name and Address Organization Details Recorded Time 83611 Medicinal product containin g penicilli n and acting as antibacte rial agent (product) medicatio n swelling mild low 06/27/2023 73771 05 SNOMED Maegan To RN [facility], [place] - [facility] 19:08:58 Medications Name Sig Start Date Stop Date Status Note LastModified by Organization Details LastModified Time cyclobenz aprine 10 mg tablet Take 1 tablet by mouth twice a day as needed 10/08 completed Not Available Not Available Not Available fluconazo le 100 mg tablet TAKE ONE TABLET BY MOUTH EVERY DAY FOR 14 DAYS 06/26 completed Not Available Not Available Not Available nystatin 100,000 unit/mL oral suspensio n TAKE 5ML BY MOUTH 4 TIMES DAILY 06/26 completed Not Available Not Available Not Available prednison e 10 mg tablet Take 6 tabs x3 d, 4 tabs x3 d, 2 tabs x3 d, 1 tab x3 d, then stop 10/08 completed Not Available Not Available Not Available Carafate 100 mg/mL oral suspensio n Take 10 mLs by mouth 4 times daily as needed 01/17 completed Oncology Not Available Not Available Not Available trazodone 50 mg tablet TAKE ONE TABLET BY MOUTH EVERY EVENING active Not Available Not Available No t Available cefpodoxi me 200 mg tablet active Not Available Not Available Not Available azithromy jeffrey 250 mg tablet active Not Available Not Available No t Available levetirac etam 500 mg tablet TAKE ONE TABLET BY MOUTH TWICE A DAY active Not Available Not Available No t Available senna 8.6 mg tablet Take 1 tablet by mouth 2 times daily 01/17 completed oncology Not Available Not Available Not Available fluconazo le 200 mg tablet active Not Available Not Available Not Available prednison e 20 mg tablet TAKE TWO TABLETS BY MOUTH EVERY DAY FOR 5 DAYS active Not Available Not Available No t Available oxycodone 5 mg/5 mL oral solution Take 5-10 mL by mouth every 4 hours as needed for pain active Oncology Not Available Not Available No t Available prochlorp erazine maleate 10 mg tablet TAKE ONE TABLET BY MOUTH EVERY 6 HOURS NEEDED FOR NAUSEA active Not Available Not Available No t Available Tessalon Perles 100 mg capsule active Not Available Not Available Not Available lorazepam 0.5 mg tablet TAKE 1 TABLET BY MOUTH 90 MINUTES PRIOR TO SCAN. IF THE DESIRED EFFECT IS NOT FELT, PLEASE TAKE A 2ND TABLET 30 MINUTES BEFORE SCAN active Not Available Not Available No t Available baclofen 10 mg tablet TAKE ONE TABLET BY MOUTH THREE TIMES A DAY active Not Available Not Available No t Available dexametha sone 2 mg tablet TAKE ONE TABLET BY MOUTH TWICE A DAY active Not Available Not Available No t Available dexametha sone 4 mg tablet TAKE ONE TABLET BY MOUTH TWICE A DAY WITH MEALS 06/26 completed Not Available Not Available Not Available calcium 200 mg (as calcium carbonate 500 mg) chewable tablet Take 1 tablet by mouth daily 01/17 completed Oncology Not Available Not Available Not Available nicotine 21 mg/24 hr daily transderm al patch Change 1 patch on skin daily 01/17 completed Oncology Not Available Not Available Not Available omeprazol e 20 mg capsule,d elayed release TAKE ONE CAPSULE BY MOUTH EVERY DAY active Not Available Not Available No t Available folic acid 1 mg tablet TAKE ONE TABLET BY MOUTH EVERY DAY active Not Available Not Available No t Available furosemid e 20 mg tablet active Not Available Not Available Not Available lorazepam 1 mg tablet TAKE ONE TABLET BY MOUTH EVERY 6 HOURS NEEDED FOR ANXIETY active Not Available Not Available No t Available albuterol sulfate HFA 90 mcg/actua tion aerosol inhaler Inhale 2 puff using inhaler every four hours as needed active Not Available Not Available No t Available dicyclomi ne 10 mg capsule TAKE ONE CAPSULE BY MOUTH FOUR TIMES A DAY NEEDED active Not Available Not Available No t Available loratadin e 10 mg tablet Take 1 tablet every day by oral route. active Not Available Not Available No t Available varenicli ne 1 mg tablet TAKE ONE TABLET BY MOUTH TWICE A DAY active Not Available Not Available No t Available Advair HFA 115 mcg-21 mcg/actua tion aerosol inhaler Inhale 2 puffs twice a day by inhalati on route. 07/25 completed Not Available Not Available Not Available Advair HFA 230 mcg-21 mcg/actua tion aerosol inhaler Inhale 2 puffs twice a day by inhalati on route. active Not Available Not Available No t Available PCCA Emollient Base topical cream Apply topicall y. Remedy Phytople x Moisturi zer. Apply to area of radiatio n twice a day but no less than 2 hours before treatmen t 01/17 completed Oncology Not Available Not Available Not Available Al hyd-Mg tr-alg ac-sod bicarb 80 mg-14.2 mg chewable tablet Chew 1-2 tablets by mouth every evening as needed 2023 active Not Available Not Available Not Avai lable Vitals Date Recorded Body height Body mass index (BMI) Body weight Oxygen saturation Oxygen saturation in Arterial blood by Pulse oximetry Heart rate Body temperature Systolic blood pressure Diastolic blood pressure Provider Name and Address Organization Details Last Updated DateTime 4 182.88 cm 36.7 kg/m2 888282. 04 g 97 % 97 % 102 /min 97.2 [degF] 126 mm[Hg] 78 mm[Hg] BALTAZAR PALMA LPN [facility] 4 16:07:36 Date Recorded Body height Body mass index (BMI) Body weight Body temperature Respiratory rate Oxygen saturation Oxygen saturation in Arterial blood by Pulse oximetry Heart rate Systolic blood pressure Diastolic blood pressure Provider Name and Address Organization Details Last Updated DateTime 4 182.88 cm 36.7 kg/m2 566465. 04 g 98.2 [degF] 18 /min 97 % 97 % 100 /min 130 mm[Hg] 80 mm[Hg] Maegan To RN [facility] 4 19:08:12 Social History Question Answer Notes LastModified by Organizat ion Details LastModified Time Tobacco Smoking Status Former Smoker BALTAZAR PALMA, KIRSTY null, [place] - [facility]. 04/18/2023 16:11:20 How Much Tobacco Do You Chew? 5+/day Information not available 04/18/2023 When Did You Quit Smoking? 16+yearssincel astcigarette Information not available 04/18/2023 What Was The Date Of Your Most Recent Tobacco Screening? 04/18/2023 Information not available 04/18/2023 At What Age Did You Start Smoking Tobacco? 13 Information not available 04/18/2023 Do You Or Have You Ever Used Smokeless Tobacco? Currently Chews Tobacco Information not available 04/18/2023 How Much Tobacco Do You Smoke? 1 PPD Information not available 04/18/2023 Has Tobacco Cessation Counseling Been Provided? Yes Information not available 04/18/2023 How Many Years Have You Smoked Tobacco? 30 Information not available 04/18/2023 Do You Or Have You Ever Used Any Other Forms Of Tobacco Or Nicotine? Yes Information not available 04/18/2023 How Many Years Have You Used Smokeless Tobacco? 22 Information not available 04/18/2023 Sex: Male Functional Status None recorded. Mental Status None recorded. Family History Relationship Description Onset Age of this Age Resolved Age Notes Notes:*Problem: Paternal gra ndmother, coronary artery disease. Father complications of dementia, coronary artery disease Medical History No medical history recorded. Immunizations Vaccine Type Date Status Provider Name and Address Organization Details Recorded Time Td(adult) unspecified formulation 03/07/2006 completed Not Available Pending sale to [facility] 01/14/2023 06:11:57 COVID-19, mRNA, LNP-S, PF, 100 mcg/0.5mL dose or 50 mcg/0.25mL dose 07/05/2020 completed Not Available Pending sale to [facility] 01/15/20 06:11:57 COVID-19, mRNA, LNP-S, PF, 100 mcg/0.5mL dose or 50 mcg/0.25mL dose 08/02/2020 completed Not Available Pending sale to [facility] 01/15/20 06:11:58 Past Encounters Encounter ID Performer Location Encounter Start Date Encounter Closed Date Diagnosis/Indication Diagnosis SNOMED-CT Code [id number] WALT REGALADO [facility] [address] [place] [address] 04/18/2023 15:56:47 04/18/2023 16:53:33 Weakness of right lower limb [id number] Nat Eddy PA-C [address] [place] [address] 06/27/2023 18:45:39 06/27/2023 19:26:51 Sore throat 857616984 Gastroesop hageal reflux disease 631796445 Health Concerns Section Related Observation LastModified by Organization Detai ls LastModified Time None Recorded Concern Status LastModified by Organization Details LastModified Time None Recorded Advance Directives Directive None Recorded Payers Encounter Date Sequence Insurance Name Policy Number Policy Tellez Covered Member ID Tellez Member ID Guarantor Name 04/18/2023 1 [place] [employer] [place] [employer] [id number] [employer] 06/27/2023 1 [place] [employer] [place] [employer] [id number] Notes Date Note Type Note Provider Name and Address Organization Details Recorded Time 04/18/2023 text/html HPI Notes: 62-year-old man here with his sister for Complaints of right buttock pain radiating down the posterior aspect of his leg to his ankle intermittently, but also right leg weakness he has been dragging his right foot. Sensation is intact to the leg no [id number] or paresthesias. History of chronic back pain, history of lung cancer followed by [facility] oncology every 3 months. He denies shortness of breath or chest pain no fevers or chills, no other symptoms denies urinary or fecal incontinence. No reflux. He is not taking any regular medications other than an albuterol inhaler occasionally. 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 He has been meeting with Dr Izquierdo chiropractor regularly for sx. former smoker, now chews tobacco. [address], [place], [address], [facility]. 04/23/2023 07:00:04 06/27/2023 text/html HPI Notes: Pt is a 62 y/o M here for sore throat for 2 weeks. Associated with throat clearing and increased mucus production. Pain has not worsened over the 2 weeks and does not radiate. Pt states that his sore throat is worse when he wakes up in the morning then decreases through the day. Notices the mucus production and sore throat after eating occasionally. Pt has a hx of GERD take 20mg of omeprazole which eliminates his heartburn. Also is on a steroid regimen of dexamethasone due to his current treatment for brain tumor. Denies pain wht eating or drinking sore throat after talking for a long time. Patient denies fever, chest pain, shortness of breath, headache, nausea, vomiting, diarrhea, dizziness, abdominal pain, leg swelling, skin rash, syncope, hemoptysis. Nat Eddy PA-C [address], [place], [address], [facility], [facility]. 06/28/2023 08:39:21
--- NOTE | 2023-10-27 15:45 | W.ED.GENAD ---
Discharge Plan Disposition Patient Disposition: Home Condition: Stable Discharge Details Clinical Impression: Shortness of breath Primary Care Provider: Serenity Rosen ED Provider: Stevie Lara Home Meds and New Rx's Prescriptions: New prednisone 20 mg tablet 60 mg PO DAILY 4 Days Qty: 12 0RF Continued omeprazole 20 mg capsule,delayed release(DR/EC) 20 mg PO DAILY levetiracetam [Keppra] 500 mg tablet 500 mg PO BID Qty: 60 0RF fluticasone propion-salmeterol [Advair HFA] 230-21 mcg/actuation HFA aerosol inhaler 2 inh INHALATION BID folic acid 1 mg tablet 1 mg PO DAILY Patient Comments: TAKE ONE TABLET BY MOUTH EVERY DAY prochlorperazine maleate 10 mg tablet 10 mg PO Q6H Patient Comments: TAKE ONE TABLET BY MOUTH EVERY 6 HOURS NEEDED FOR NAUSEA Discharge Instructions Additional Instructions: Your CAT scan did not show any blood clots or collapsed lung. I am placing you on a short course of prednisone which you can confirm with your oncologist if they would want you to continue this. If you feel more ill or have new symptoms such as fevers return to the emergency department for reevaluation HPI General Mode of arrival: ambulatory. Date/Time Provider Initiated Documentation: 10/27/23 15:01. Limitations to Documentation: no limitations. Information obtained by: patient. History of Present Illness 63 year old M presents to the emergency department with the chief complaint of dyspnea, described as moderate, Patient started experiencing this month(s) (3) and it has been constant. No relieving factors improve symptom(s), No exacerbating factors reported . Patient notes cough; denies chest pain and fever/chills. Patient did receive the following treatments prior to arrival, none Related Data Home Medications ?Medication ?Instructions ?Recorded ?Confirmed omeprazole 20 mg capsule,delayed 20 mg PO DAILY 04/24/23 10/27/23 release levetiracetam 500 mg tablet 500 mg PO BID #60 tabs 04/25/23 10/27/23 (Keppra) fluticasone propionate 230 2 inh inhalation BID 07/29/23 10/27/23 mcg-salmeterol 21 mcg/actuation HFA inhaler (Advair HFA) folic acid 1 mg tablet 1 mg PO DAILY 07/29/23 10/27/23 prochlorperazine maleate 10 mg 10 mg PO Q6H 07/29/23 10/27/23 tablet prednisone 20 mg tablet 60 mg (3 x 20 mg) PO DAILY 4 days 10/27/23 #12 tabs Previous Rx's ?Medication ?Instructions ?Recorded levetiracetam 500 mg tablet 500 mg PO BID #60 tabs 04/25/23 (Keppra) prednisone 20 mg tablet 60 mg (3 x 20 mg) PO DAILY 4 days 10/27/23 #12 tabs Allergies Allergy/AdvReac Type Severity Reaction Status Date / Time aspirin Allergy Severe Anaphylaxis Verified 10/27/23 15:01 Penicillins AdvReac Intermediate Other (See Verified 10/27/23 15:01 Comment) General Stated Complaint: SOB MK: 3 Review of Systems All systems reviewed & are unremarkable except as noted in HPI and below Constitutional Constitutional: Denies chills, Denies fever(s) and Denies weakness Cardiovascular Cardiovascular: Denies chest pain and Reports dyspnea Respiratory Respiratory: Reports cough and Reports dyspnea Gastrointestinal Gastrointestinal: Denies abdominal pain, Denies nausea and Denies vomiting Musculoskeletal Musculoskeletal: Denies joint swelling Neurologic Neurologic: Denies weakness Allergic/Immunologic Allergic/Immunologic: Denies urticaria Exam Const General: no acute distress Orientation: alert [facility] Head: normal to inspection Ears: external ears normal General nose exam: external nose normal Mouth: moist mucous membranes Eyes General: appearance normal, both eyes and all related structures Neck Neck: normal visual inspection Resp Effort & Inspection: normal respiratory effort and able to speak in complete sentences Auscultation: wheezes Cardio Jugular venous pressure: no JVD Rate: regular rate Heart Sounds: no murmurs Skin General skin exam: no rashes or lesions noted Neuro General: patient alert and patient oriented x3 Extrem General: normal to inspection Psych Mental Status: mental status grossly normal Course Vital Signs Vital signs: Vital Signs Temperature 36.6 C 10/27/23 14:55 Pulse 112 H 10/27/23 14:55 Respiratory Rate 16 10/27/23 14:55 Blood Pressure 114/82 10/27/23 14:55 Pulse Oximetry 97 10/27/23 14:55 Temperature 36.6 C 10/27/23 14:55 Temperature Source Temporal Artery Scan 10/27/23 14:55 Pulse 112 H 10/27/23 14:55 Respiratory Rate 16 10/27/23 14:55 Respiratory Effort Normal 10/27/23 15:02 Blood Pressure 114/82 10/27/23 14:55 Blood Pressure Position Sitting 10/27/23 14:55 Pulse Oximetry 97 10/27/23 14:55 Oxygen Delivery Method Room Air 10/27/23 14:55 Oxygen Flow Rate 0 10/27/23 14:55 Pain Level 0 10/27/23 14:55 Medical Decision Making 63-year-old male who is a former smoker undergoing chemotherapy for non-small cell lung cancer currently, who comes in with several months of worsening shortness of breath. He denies any fevers, does have a chronic cough, denies any chest pain. He is alert speaking in full sentences in no distress. He does have apical wheezing bilaterally otherwise clear and equal breath sounds. No JVD or leg swelling or calf tenderness. Suspect this could be related to underlying COPD given his chronic smoking history so we will give prednisone and a DuoNeb and reassess. Will also check an EKG and troponin though he does no chest pain so doubt ACS. Will also order CBC and CMP and proBNP and obtain a CTA of the chest to evaluate for possible PE, infiltrates and less likely pneumothorax. labs show neutropenia, he has not had any fevers and confirms this when asked. CTA shows no pe or ptx does have a new lung nodule which he can follow up with his oncologist for. Pt sitting in his chair in no distress requesting discharge. Given reassuring workup of the neutropenia I feel this is feasible. I will provide a short course of prednisone as I suspect this could be of slight COPD exacerbation he will follow-up with his oncologist return precautions given Differential Diagnosis Differential Diagnosis: COPD, PE Medical Records Medical records reviewed: Yes I reviewed the patient's medical records. Imaging Data Radiologic Study: Attestation: I personally reviewed and interpreted this imaging study as follows: Imaging: CT Scan Radiologist's impression: IMPRESSION: 1. No evidence of pulmonary embolism, thoracic aortic dissection or aneurysm. 2. New 1.1 cm left lower lobe pulmonary nodule. Stable 5 mm left upper lobe pulmonary nodule. 3. Stable right hilar mass and/or scarring. Lab Data Lab results reviewed: Yes I reviewed the patient's lab results. ECG Data Attestation: I personally reviewed and interpreted this ECG (s) as follows: Prior ECG tracings: available for review Interpretation: sinus tachycardia, rate of 109, pr 178 no stemi Quality:SDOH Health Related Social Needs: No Data to Display PFSH All Active Problems (Updated 10/27/23 @ 18:06 by Stevie Lara MD) Shortness of breath (Acute) Chronic low back pain (Chronic) Dyspnea (Acute) Renal insufficiency, mild (Acute) CAP (community acquired pneumonia) (Acute) Medical History Lung cancer Family History (Updated 03/31/23 @ 11:58 by Yvonne Segal RN, RN) Mother , 70s No problems noted. Father , 80s alzheimers Prostate cancer Social History (Updated 03/31/23 @ 11:57 by Yvonne Segal RN, RN) Smoking/Tobacco Use Status: Former Tobacco Use Quit Date: 03/07/12 Pack-years: 40 Smoking risk assessment performed?: Yes Alcohol Intake: current Alcohol Intake frequency: a few times a month Alcohol type: hard liquor Drug use: Never Substance use type: does not use Household members: spouse Number of Children: 3 number of grandchildren: 1 What is your relationship status?: Panel score (0-1 are the most socially isolated patients): 1 Do you feel safe at home: Yes Do you feel safe in your relationship?: Yes
[2023-10-27] MEDS: Albuterol/Ipratropium 3 ML UPD VIAL UPD (16:00)
[2023-10-27] MEDS: predniSONE 20 MG TAB 60 MG PO (16:00)
[2023-10-27 16:26] LABS: BE (Venous) 5 mmol/L (-2-3); HCO3 (Venous) 30 mmol/L (23-28); O2 Sat (Venous) 66 %; TCO2 (Venous) 28 mmol/L (24-29); pCO2 (Venous) 48 mmHg (41-51); pH (Venous) 7.41 (7.31-7.41); pO2 (Venous) 37 mmHg
[2023-10-27 16:29] LABS: HCT 26.7 % (40.0-50.0); HGB 9.2 g/dL (13.5-17.5); MCH 32.1 pg (27.0-33.0); MCHC 34.5 % (32.0-36.0); MCV 93 fL (80-95); Platelet Count 129 10^3/uL (130-400); RBC 2.87 10^6/uL (4.36-5.78); RDW 16.1 % (11.8-14.1)
[2023-10-27 16:39] LABS: WBC 1.97 10^3/uL (4.4-10.8)
[2023-10-27] MEDS: Normal Saline - Diluent 50 ML VIAL IJ (16:39)
[2023-10-27 16:41] LABS: INR 1.1 (0.9-1.1); PTT Activated 29.7 sec (23.6-32.8); Prothrombin Time 11.2 sec (9.1-11.1)
[2023-10-27 16:50] LABS: Absolute Lymphocyte Count 0.81 10^3/uL (1.2-3.4); Absolute Monocyte Count 0.65 10^3/uL (0.1-0.8); Metamyelocytes % 1
[2023-10-27] MEDS: Omnipaque 350 MG/ML 100 ML BTL IJ (16:50)
[2023-10-27 16:51] LABS: Diff Comment Manual Differential; Myelocytes % 2
[2023-10-27 16:52] LABS: Absolute Neutrophil Count 0.45 10^3/uL (1.2-6.7); Anisocytosis 1+; Polychromasia Present
[2023-10-27 16:55] LABS: ALT 37 U/L (16-63); AST 48 U/L (15-37); Albumin 3.6 g/dL (3.4-5.0); Alkaline Phosphatase 83 U/L (46-116); Anion Gap 8.5 mmol/L (3-11); BUN 13 mg/dL (7-18); Bilirubin, Total 0.42 mg/dL (0.2-1.0); CO2 28.5 mmol/L (21.0-32.0); CREATININE 1.2 mg/dL (0.70-1.30); Calcium 9.3 mg/dL (8.5-10.1); Chloride 101 mmol/L (98-107); Estimated GFR 67.11 (mL/min/1.73m2); Glucose 104 mg/dL (74-106); Magnesium 1.7 mg/dL (1.8-2.4); NT-proBNP 64 pg/mL (<300); Sodium 138 mmol/L (136-145); Total Protein 7.9 g/dL (6.4-8.2); Troponin I < 50 ng/L (< or =60)
--- NOTE | 2023-10-27 16:56 | NUR.NOTE ---
Nursing Note: Critical results received from lab = absolute neutrophils 0.45. Message delivered to Dr Lara.
--- NOTE | 2023-10-27 17:04 | DI.CT_ITS ---
Exam(s) CT CHEST PE CTA EXAM: CT CHEST PE CTA CLINICAL HISTORY: lung cancer, dyspnea. TECHNIQUE: Imaging Protocol: Axial CT angiography was performed with multi-slice acquisition and mu lti-planar and/or 3D reconstructions. CONTRAST MATERIAL: Intravenous: Omnipaque 350 contrast volume:100 mL COMPARISON: CT CT CHEST/ABD/PEL W from 09/01/2023 FINDINGS: Tracheobronchial tree: Patent where visualized. No bronchiectasis. Pulmonary parenchyma: There is a stable left upper lobe nodule. There is a new 1.1 cm nodule in the left lower lobe (series 4, image 344). There is a stable right hilar mass and/or scarring. Atelecta tic changes are seen in the dependent portions of the lungs. Pulmonary Arteries: No evidence of filling defect to suggest pulmonary emboli. Mediastinum and Amaris: No dominant adenopathy or fluid collection. The esophagus is unremarkable. Th ere is a small hiatal hernia. Visualized thyroid gland: Unremarkable. Pleura: No effusion or pneumothorax. Heart: The heart is not dilated. No significant coronary artery calcifications are seen. No pericardi al effusion. Aorta: Thoracic aorta non-dilated. No evidence of dissection. Atherosclerotic calcification is presen t. Upper abdomen: Unremarkable. Soft tissues: Gynecomastia. Bones: Within normal limits for the patient's age. IMPRESSION: 1. No evidence of pulmonary embolism, thoracic aortic dissection or aneurysm. 2. New 1.1 cm left lower lobe pulmonary nodule. Stable 5 mm left upper lobe pulmonary nodule. 3. Stable right hilar mass and/or scarring. RADIATION DOSE DELIVERED: Total DLP DATA REPOSITORY: All CT scans at this facility are submitted to the National Radiology Data Registry (NRDR) Dose Index Registry (DIR) with the [employer] (ACR). RADIATION OPTIMIZATION: All CT scans at this facility use at least one of these dose optimization te chniques: automated exposure control; mA and/or kV adjustment per patient size (includes targeted exa ms where dose is matched to clinical indication); or iterative reconstruction.
[2023-10-27 18:16] VITALS: RESP 18
== END 2023-10-27 18:24 | disposition home or self-care (01) ==
PROVIDERS: Emergency Provider Emergency Medicine; PCP Nurse Practitioner Family
DX: R06.02 Shortness of breath (principal); D70.9 Neutropenia, unspecified; C34.90 Malignant neoplasm of unspecified part of unspecified bronchus or lung; C79.31 Secondary malignant neoplasm of brain; Z92.21 Personal history of antineoplastic chemotherapy; Z87.891 Personal history of nicotine dependence
CPT/HCPCS: 71275; 80053; 82805; 87635; 93005; 94640; 99285; 83735; 83880; 84484; 85025; 85610; 85730; 93010; J3490; J7512; J7620

== ENCOUNTER 2023-11-10 03:25 | Outpatient (CLI) | payer BC, SELFPAY ==
[2023-11-10 08:01] LABS: Abs Immature Grans 0.09 10^3/uL (0.0-0.06); Absolute Basophil Count 0.01 10^3/uL (0.0-0.2); Absolute Lymphocyte Count 0.55 10^3/uL (1.2-3.4); Absolute Monocyte Count 0.79 10^3/uL (0.1-0.8); Absolute Neutrophil Count 3.95 10^3/uL (1.2-6.7); Basophils % 0.2 %; HCT 31.4 % (40.0-50.0); HGB 10.8 g/dL (13.5-17.5); Immature Grans % 1.7 %; Lymphocytes % 10.2 %; MCH 32.8 pg (27.0-33.0); MCHC 34.4 % (32.0-36.0); MCV 95 fL (80-95); MPV 8.8 fL (8.0-11.0); Monocytes % 14.7 %; Neutrophils % 73.2 %; Platelet Count 221 10^3/uL (130-400); RBC 3.29 10^6/uL (4.36-5.78); RDW 15.9 % (11.8-14.1); RDW-SD 54.9 fL; WBC 5.39 10^3/uL (4.4-10.8)
[2023-11-10 08:33] LABS: ALT 34 U/L (16-63); AST 27 U/L (15-37); Albumin 3.5 g/dL (3.4-5.0); Alkaline Phosphatase 82 U/L (46-116); Anion Gap 8.4 mmol/L (3-11); BUN 13 mg/dL (7-18); Bilirubin, Total 0.49 mg/dL (0.2-1.0); CO2 29.6 mmol/L (21.0-32.0); CREATININE 1.3 mg/dL (0.70-1.30); Chloride 101 mmol/L (98-107); Estimated GFR 60.96 (mL/min/1.73m2); FREE T4 0.87 ng/dL (0.76-1.46); Glucose 102 mg/dL (74-106); Magnesium 1.8 mg/dL (1.8-2.4); Potassium 3.7 mmol/L (3.5-5.1); Sodium 139 mmol/L (136-145); TSH 5.78 uIU/Ml (0.36-3.74); Total Protein 7.8 g/dL (6.4-8.2)
[2023-11-10 08:44] LABS: Calcium 9.6 mg/dL (8.5-10.1)
== END 2023-11-10 03:26 | disposition home or self-care (01) ==
LOC: LBO 03:25
PROVIDERS: PCP Nurse Practitioner Family; Visit Provider Internal Medicine Medical Oncology
DX: C34.11 Malignant neoplasm of upper lobe, right bronchus or lung (principal); C79.31 Secondary malignant neoplasm of brain; Z79.899 Other long term (current) drug therapy
CPT/HCPCS: 36415; 80053; 83735; 84439; 84443; 85025

== ENCOUNTER 2023-11-29 01:22 | Outpatient (CLI) | payer BC, SELFPAY ==
--- NOTE | 2023-11-29 | DI.MRI_ITS ---
Exam(s) MR BRAIN WO/W EXAM: MR BRAIN WO/W CLINICAL HISTORY: LUNG CANCER WITH BRAIN METS, S/P FRACTIONATED SRS, F/U THERAPY TECHNIQUE: Multiplanar multisequence MRI of the brain was performed. Both noninfused and contrast i nfused sequences were performed. IV Contrast injected was cc Dotarem. COMPARISON: MR MR BRAIN WO/W from 04/26/2023 MR MR BRAIN WO/W from 08/12/2023 FINDINGS: CEREBRAL PARENCHYMA: There has been slight further decrease in size in the high left parietal ring enhancing metastatic le tirso. The amount of surrounding white matter edema around this lesion is minimally decreased from MRI and very much decreased from the MRI of 04/26/2023. There are no new ring-enhancing les ions in the brain. There are no new areas of focal signal abnormality in the cerebellar hemispheres nor within the serjio, midbrain, and thalami. The size and number of previously described FLAIR bright foci of white matter signal abnormality is unchanged, these not exhibiting enhancement, surrounding edema, nor restricted diffusion and are most probably consistent with chronic small-vessel white erma er ischemic changes. PITUITARY GLAND: No mass nor parasellar abnormality. No obvious abnormality in the cavernous sinuses. FLOW VOIDS: The expected flow void are noted. No evidence of obvious aneurysm nor obvious vascular ma lformation. PARANASAL SINUSES: There is multifocal mucosal thickening now evident in the left maxillary sinus, no t previously present. Post inflammatory retention cyst in the right maxillary sinus again noted. No findings in the sphenoid and frontal sinuses. However, there are bilateral mastoid air cells effusi ons which have significantly increased from prior study 08/12/2023 ORBITS: No new significant findings. IMPRESSION: 1. Slight further decrease in the size of the solitary high left parietal metastatic lesion and surro unding white matter edema. It presently measures approximately 0.6 x 0.5 mm. There are no new metas tatic lesions evident in the brain 2. Stable appearance of the other previously described non metastatic appearing white matter signal f oci which are most probably sequelae of chronic ischemic disease. These do not exhibit enhancement n or restricted diffusion. 3. Increasing paranasal sinus disease and bilateral mastoid air cell effusions as described above. DATA REPOSITORY:
[2023-11-29] MEDS: Normal Saline Flush 10 ML SYR IVP (13:46)
[2023-11-29] MEDS: Gadoterate meglumine 20 ML SYRINGE IVP (13:47)
== END 2023-11-29 01:42 ==
LOC: DI 01:22
PROVIDERS: PCP Nurse Practitioner Family; Visit Provider Radiology Radiation Oncology
DX: I67.82 Cerebral ischemia (principal); Z87.891 Personal history of nicotine dependence; Z92.21 Personal history of antineoplastic chemotherapy
CPT/HCPCS: 70553

== ENCOUNTER 2023-11-30 02:24 | Outpatient (CLI) | payer BC, SELFPAY ==
[2023-11-30 07:35] LABS: Abs Immature Grans 0.12 10^3/uL (0.0-0.06); Absolute Basophil Count 0.02 10^3/uL (0.0-0.2); Absolute Lymphocyte Count 0.61 10^3/uL (1.2-3.4); Absolute Monocyte Count 0.67 10^3/uL (0.1-0.8); Absolute Neutrophil Count 3.52 10^3/uL (1.2-6.7); Basophils % 0.4 %; HCT 34.8 % (40.0-50.0); HGB 11.4 g/dL (13.5-17.5); Immature Grans % 2.4 %; Lymphocytes % 12.3 %; MCHC 32.8 % (32.0-36.0); MCV 98 fL (80-95); MPV 8.3 fL (8.0-11.0); Monocytes % 13.6 %; Neutrophils % 71.3 %; Platelet Count 227 10^3/uL (130-400); RBC 3.56 10^6/uL (4.36-5.78); RDW 14.9 % (11.8-14.1); RDW-SD 53.8 fL; WBC 4.94 10^3/uL (4.4-10.8)
[2023-11-30 07:58] LABS: ALT 30 U/L (16-63); AST 31 U/L (15-37); Albumin 3.5 g/dL (3.4-5.0); Alkaline Phosphatase 83 U/L (46-116); Anion Gap 9.2 mmol/L (3-11); BUN 10 mg/dL (7-18); Bilirubin, Total 0.46 mg/dL (0.2-1.0); CO2 29.8 mmol/L (21.0-32.0); CREATININE 1.3 mg/dL (0.70-1.30); Calcium 9.4 mg/dL (8.5-10.1); Chloride 101 mmol/L (98-107); Estimated GFR 60.96 (mL/min/1.73m2); Glucose 130 mg/dL (74-106); Magnesium 1.8 mg/dL (1.8-2.4); Potassium 3.7 mmol/L (3.5-5.1); Sodium 140 mmol/L (136-145); Total Protein 7.7 g/dL (6.4-8.2)
[2023-11-30 09:26] LABS: FREE T4 0.93 ng/dL (0.76-1.46); TSH 7.65 uIU/Ml (0.36-3.74)
== END 2023-11-30 02:25 | disposition home or self-care (01) ==
LOC: LBO 02:24
PROVIDERS: PCP Nurse Practitioner Family; Visit Provider Internal Medicine Medical Oncology
DX: C34.11 Malignant neoplasm of upper lobe, right bronchus or lung (principal); C79.31 Secondary malignant neoplasm of brain; Z79.899 Other long term (current) drug therapy
CPT/HCPCS: 36415; 80053; 83735; 84439; 84443; 85025

== ENCOUNTER 2023-12-18 13:11 | Emergency (ER) | payer BC, SELFPAY ==
[2023-12-18] VITALS (7 sets, daily range): BP systolic 110–130; BP diastolic 70–82; PULSE 101–118; RESP 18; TEMP 36.7; O2SAT 94–98
--- NOTE | 2023-12-18 13:15 | DI.RAD_ITS ---
Exam(s) XR KNEE RT 3V AP,LAT,MAURO EXAM: XR KNEE RT 3V AP,LAT,MAURO CLINICAL HISTORY: pain. TECHNIQUE: 2D digital imaging was performed. COMPARISON: No exams were available for comparison FINDINGS: 3 views No evidence of fracture but there is a joint effusion noted. No degenerative changes evident. No ede int space narrowing. No chondrocalcinosis. No osteophytes. Bone density normal. No osseous lesion s. IMPRESSION: No acute osseous findings in the knee but there is a joint effusion which may signify internal derang ement. Appropriate follow-up recommended. DATA REPOSITORY: RADIATION DOSE DELIVERED:
--- NOTE | 2023-12-18 13:35 | W.ED.GENAD ---
Discharge Plan Disposition Patient Disposition: Home Condition: Stable Discharge Details Clinical Impression: Acute pain of right knee Primary Care Provider: Serenity Rosen ED Provider: Stevie Lara Home Meds and New Rx's Prescriptions: New prednisone 20 mg tablet See Rx Instructions .ROUTE .COMPLEX Qty: 24 0RF Rx Instructions: Take 60 mg daily for 4 days, then 40 mg daily for 4 days, then 20 mg daily for 4 days. Continued loratadine 10 mg tablet 10 mg PO DAILY Patient Comments: TAKE ONE TABLET BY MOUTH EVERY DAY sertraline 50 mg tablet 50 mg PO DAILY Patient Comments: TAKE ONE-HALF TABLET BY MOUTH AT BEDTIME FOR 7 DAYS; THEN TAKE ONE TABLET BY MOUTH ONCE DAILY levofloxacin 500 mg tablet 500 mg PO DAILY Patient Comments: TAKE ONE TABLET BY MOUTH EVERY DAY levetiracetam [Keppra] 500 mg tablet 500 mg PO BID Qty: 60 0RF fluticasone propion-salmeterol [Advair HFA] 230-21 mcg/actuation HFA aerosol inhaler 2 inh INHALATION BID folic acid 1 mg tablet 1 mg PO DAILY Patient Comments: TAKE ONE TABLET BY MOUTH EVERY DAY prochlorperazine maleate 10 mg tablet 10 mg PO Q6H Patient Comments: TAKE ONE TABLET BY MOUTH EVERY 6 HOURS NEEDED FOR NAUSEA Discharge Instructions Additional Instructions: You are likely suffering from a flare of arthritis If you are not improving within a week follow-up with your primary care provider If you feel more ill or have new symptoms such as high fevers return to the emergency department for reevaluation HPI General Date/Time Provider Initiated Documentation: 12/18/23 13:16. Limitations to Documentation: no limitations. Information obtained by: patient. History of Present Illness 63 year old M presents to the emergency department with the chief complaint of right knee pain, described as moderate, Quality is described as aching, and is localized to the right and lower extremity. Patient started experiencing this day(s) (2) and it has been constant. Rest improves symptom(s), Movement worsens symptoms . Patient notes no other symptoms.. Patient did receive the following treatments prior to arrival, none Related Data Home Medications ?Medication ?Instructions ?Recorded ?Confirmed levetiracetam 500 mg tablet 500 mg PO BID #60 tabs 04/25/23 12/18/23 (Keppra) fluticasone propionate 230 2 inh inhalation BID 07/29/23 12/18/23 mcg-salmeterol 21 mcg/actuation HFA inhaler (Advair HFA) folic acid 1 mg tablet 1 mg PO DAILY 07/29/23 12/18/23 prochlorperazine maleate 10 mg 10 mg PO Q6H 07/29/23 12/18/23 tablet levofloxacin 500 mg tablet 500 mg PO DAILY 12/18/23 12/18/23 loratadine 10 mg tablet 10 mg PO DAILY 12/18/23 12/18/23 prednisone 20 mg tablet See Rx Instructions .Route 12/18/23 .COMPLEX #24 tabs sertraline 50 mg tablet 50 mg PO DAILY 12/18/23 12/18/23 Previous Rx's ?Medication ?Instructions ?Recorded levetiracetam 500 mg tablet 500 mg PO BID #60 tabs 04/25/23 (Keppra) prednisone 20 mg tablet See Rx Instructions .Route 12/18/23 .COMPLEX #24 tabs Allergies Allergy/AdvReac Type Severity Reaction Status Date / Time aspirin Allergy Severe Anaphylaxis Verified 12/18/23 13:16 Penicillins AdvReac Intermediate makes me Verified 12/18/23 13:34 kind of crazy General Stated Complaint: Orthopedic MK: 3 Review of Systems All systems reviewed & are unremarkable except as noted in HPI and below Constitutional Constitutional: Denies chills, Denies fever(s) and Denies weakness Cardiovascular Cardiovascular: Denies chest pain and Denies dyspnea Respiratory Respiratory: Denies cough and Denies dyspnea Gastrointestinal Gastrointestinal: Denies abdominal pain, Denies nausea and Denies vomiting Musculoskeletal Musculoskeletal: Reports joint swelling Neurologic Neurologic: Denies weakness Exam Const General: no acute distress Orientation: alert [facility] Head: normal to inspection Ears: external ears normal General nose exam: external nose normal Mouth: moist mucous membranes Eyes General: appearance normal, both eyes and all related structures Neck Neck: normal visual inspection Resp Effort & Inspection: normal respiratory effort and able to speak in complete sentences Cardio Rate: regular rate Skin General skin exam: no rashes or lesions noted Neuro General: patient alert and patient oriented x3 Extrem General: full ROM and capillary refill normal Psych Mental Status: mental status grossly normal Course Vital Signs Vital signs: Vital Signs Temperature 36.7 C 12/18/23 13:14 Pulse 118 H 12/18/23 13:14 Respiratory Rate 18 12/18/23 13:14 Blood Pressure 110/70 12/18/23 13:14 Pulse Oximetry 94 12/18/23 13:14 Temperature 36.7 C 12/18/23 13:14 Temperature Source Rectal 12/18/23 13:14 Pulse 118 H 12/18/23 13:14 Respiratory Rate 18 12/18/23 13:14 Respiratory Effort Normal, Non-Labored 12/18/23 13:18 Blood Pressure 110/70 12/18/23 13:14 Pulse Oximetry 94 12/18/23 13:14 Pain Level 10 12/18/23 13:30 Medical Decision Making 63-year-old male comes in with nontraumatic right knee pain for several days. Denies any fevers, chills, infectious symptoms. He says the knee is swollen. He is alert and oriented x 4 on arrival, his right knee is swollen compared to the left, he is tenderness over the lateral portion of the knee. There is no warmth or redness. He is full range of motion of the knee with intact sensation and distal pulses. Suspect arthritis and possibly gout, will treat with prednisone and obtain x-rays. He has no infectious symptoms and there is no warmth or redness so I doubt septic arthritis at this time. X-ray on my read shows no acute findings other than fusion. Patient is clinically stable, still no fever, no warmth or redness. Suspect inflammatory arthritis and likely gout. Will provide tapering dose of prednisone, he was stable for discharge with follow-up with PCP, return precautions given Differential Diagnosis Differential Diagnosis: Gout, arthritis, sprain Quality:SDOH Health Related Social Needs: No Data to Display PFSH All Active Problems (Updated 12/18/23 @ 14:34 by Stevie Lara MD) Acute pain of right knee (Acute) Chronic low back pain (Chronic) Dyspnea (Acute) Renal insufficiency, mild (Acute) CAP (community acquired pneumonia) (Acute) Medical History Lung cancer Family History (Updated 03/31/23 @ 11:58 by Yvonne Segal RN, RN) Mother , 70s No problems noted. Father , 80s alzheimers Prostate cancer Social History (Updated 03/31/23 @ 11:57 by Yvonne Segal RN, RN) Smoking/Tobacco Use Status: Former Tobacco Use Quit Date: 03/07/12 Pack-years: 40 Smoking risk assessment performed?: Yes Alcohol Intake: current Alcohol Intake frequency: a few times a month Alcohol type: hard liquor Drug use: Never Substance use type: does not use Household members: spouse Number of Children: 3 number of grandchildren: 1 What is your relationship status?: Panel score (0-1 are the most socially isolated patients): 1 Do you feel safe at home: Yes Do you feel safe in your relationship?: Yes PAWSS Have you Been Recently Intoxicated or Drunk Within the Last 30 days?: No Have you Ever Experienced Previous Episodes of Alcohol Withdrawal?: No Have you ever Experienced Withdrawal Seizures?: No Have you ever Experienced Delirium Tremens(DT)s?: No Have you ever undergone Alcohol Rehabilitation Treatment (i.e, inpt ot outpatient treatment programs)?: No Have you ever Experienced Blackouts?: No Have you ever Combined Alcohol with other Downers within the last 90 days?: No Have you ever Combined Alcohol with any other Substance of Abuse during the last 90 days?: No Result: 0
[2023-12-18] MEDS: predniSONE 20 MG TAB 60 MG PO (13:38)
--- NOTE | 2023-12-18 15:31 | DI.VRAD_ITS ---
PROCEDURE INFORMATION: Exam: XR Right Knee Exam date and time: 12/18/2023 1:54 PM Age: 63 years old Clinical indication: Pain; Knee; Right TECHNIQUE: Imaging protocol: Radiologic exam of the right knee. Views: 3 views. COMPARISON: No relevant prior studies available. FINDINGS: Bones/joints: There is no evidence of acute fracture.There is no evidence of malalignment or dislocation. Soft tissues: Normal. IMPRESSION: There is no evidence of acute fracture.There is no evidence of malalignment or dislocation. Dictated and Authenticated by: Asya Villegas MD. Ordering:DAVION Hubbard MD
== END 2023-12-18 14:56 | disposition home or self-care (01) ==
PROVIDERS: Emergency Provider Emergency Medicine; PCP Nurse Practitioner Family
DX: M25.561 Pain in right knee (principal); M25.461 Effusion, right knee; Z87.891 Personal history of nicotine dependence
CPT/HCPCS: 73562; 99283; J7512

== ENCOUNTER 2023-12-19 03:03 | Outpatient (CLI) | payer BC, SELFPAY ==
[2023-12-19 07:47] LABS: Abs Immature Grans 0.27 10^3/uL (0.0-0.06); Absolute Basophil Count 0.02 10^3/uL (0.0-0.2); Absolute Monocyte Count 1.39 10^3/uL (0.1-0.8); Absolute Neutrophil Count 9.42 10^3/uL (1.2-6.7); Basophils % 0.2 %; HCT 32.9 % (40.0-50.0); HGB 10.9 g/dL (13.5-17.5); Immature Grans % 2.3 %; Lymphocytes % 5.5 %; MCH 31.3 pg (27.0-33.0); MCHC 33.1 % (32.0-36.0); MCV 95 fL (80-95); MPV 8.5 fL (8.0-11.0); Monocytes % 11.8 %; Neutrophils % 80.2 %; Platelet Count 401 10^3/uL (130-400); RBC 3.48 10^6/uL (4.36-5.78); RDW 13.9 % (11.8-14.1); RDW-SD 46.5 fL; WBC 11.74 10^3/uL (4.4-10.8)
[2023-12-19 07:48] LABS: Absolute Lymphocyte Count 0.65 10^3/uL (1.2-3.4)
[2023-12-19 08:09] LABS: ALT 16 U/L (16-63); AST 20 U/L (15-37); Albumin 3.1 g/dL (3.4-5.0); Alkaline Phosphatase 95 U/L (46-116); Anion Gap 12.1 mmol/L (3-11); BUN 18 mg/dL (7-18); Bilirubin, Total 0.37 mg/dL (0.2-1.0); CO2 26.9 mmol/L (21.0-32.0); CREATININE 1.5 mg/dL (0.70-1.30); Chloride 101 mmol/L (98-107); Estimated GFR 51.35 (mL/min/1.73m2); FREE T4 1.13 ng/dL (0.76-1.46); Glucose 142 mg/dL (74-106); Magnesium 1.8 mg/dL (1.8-2.4); Potassium 3.5 mmol/L (3.5-5.1); Sodium 140 mmol/L (136-145); TSH 4.18 uIU/mL (0.36-3.74); Total Protein 8.8 g/dL (6.4-8.2)
== END 2023-12-19 03:04 | disposition home or self-care (01) ==
LOC: LBO 03:03
PROVIDERS: PCP Nurse Practitioner Family; Visit Provider Internal Medicine Medical Oncology
DX: C34.11 Malignant neoplasm of upper lobe, right bronchus or lung (principal); C79.31 Secondary malignant neoplasm of brain; Z79.899 Other long term (current) drug therapy
CPT/HCPCS: 36415; 80053; 83735; 84439; 84443; 85025

== ENCOUNTER 2024-01-09 02:54 | Outpatient (CLI) | payer BC, SELFPAY ==
[2024-01-09 07:41] LABS: HGB 11.2 g/dL (13.5-17.5); MCV 97 fL (80-95); MPV 8.3 fL (8.0-11.0); Platelet Count 307 10^3/uL (130-400); RBC 3.61 10^6/uL (4.36-5.78); RDW 14.9 % (11.8-14.1); RDW-SD 52.7 fL
[2024-01-09 08:11] LABS: ALT 29 U/L (16-63); AST 21 U/L (15-37); Albumin 3.1 g/dL (3.4-5.0); Alkaline Phosphatase 78 U/L (46-116); Anion Gap 4.2 mmol/L (3-11); BUN 21 mg/dL (7-18); Bilirubin, Total 0.21 mg/dL (0.2-1.0); CO2 30.8 mmol/L (21.0-32.0); CREATININE 1.3 mg/dL (0.70-1.30); Calcium 9.5 mg/dL (8.5-10.1); Chloride 107 mmol/L (98-107); Estimated GFR 60.96 (mL/min/1.73m2); FREE T4 0.74 ng/dL (0.76-1.46); Glucose 112 mg/dL (74-106); Magnesium 1.9 mg/dL (1.8-2.4); Potassium 3.9 mmol/L (3.5-5.1); Sodium 142 mmol/L (136-145); TSH 6.68 uIU/mL (0.36-3.74); Total Protein 7.5 g/dL (6.4-8.2)
[2024-01-09 08:31] LABS: Absolute Lymphocyte Count 1.29 10^3/uL (1.2-3.4); Absolute Monocyte Count 1.16 10^3/uL (0.1-0.8); Absolute Neutrophil Count 10.32 10^3/uL (1.2-6.7); Atypical Lymphocytes % 3 %; Metamyelocytes % 1
[2024-01-09 08:32] LABS: Anisocytosis 2+; Diff Comment Manual Differential; Poikilocytes 2+
== END 2024-01-09 02:55 | disposition home or self-care (01) ==
LOC: LBO 02:54
PROVIDERS: PCP Physician Assistant Medical; Visit Provider Internal Medicine Medical Oncology
DX: C34.11 Malignant neoplasm of upper lobe, right bronchus or lung (principal); C79.31 Secondary malignant neoplasm of brain; Z79.899 Other long term (current) drug therapy
CPT/HCPCS: 80053; 83735; 84439; 84443; 85025

== ENCOUNTER 2024-01-30 02:34 | Outpatient (CLI) | payer BC, SELFPAY ==
[2024-01-30 07:39] LABS: Abs Immature Grans 0.33 10^3/uL (0.0-0.06); Absolute Basophil Count 0.02 10^3/uL (0.0-0.2); Absolute Eosinophil Count 0.02 10^3/uL (0.0-0.7); Absolute Lymphocyte Count 0.76 10^3/uL (1.2-3.4); Absolute Monocyte Count 0.48 10^3/uL (0.1-0.8); Absolute Neutrophil Count 4.51 10^3/uL (1.2-6.7); Basophils % 0.3 %; Eosinophils % 0.3 %; HCT 36.1 % (40.0-50.0); HGB 11.8 g/dL (13.5-17.5); Immature Grans % 5.4 %; Lymphocytes % 12.4 %; MCH 31.6 pg (27.0-33.0); MCHC 32.7 % (32.0-36.0); MCV 97 fL (80-95); MPV 8.1 fL (8.0-11.0); Monocytes % 7.8 %; Neutrophils % 73.8 %; Platelet Count 174 10^3/uL (130-400); RBC 3.73 10^6/uL (4.36-5.78); RDW 16.6 % (11.8-14.1); RDW-SD 58.5 fL; WBC 6.12 10^3/uL (4.4-10.8)
[2024-01-30 08:00] LABS: Diff Comment Diff Reviewed; RBC Morphology Normal
[2024-01-30 08:02] LABS: ALT 50 U/L (16-63); AST 29 U/L (15-37); Albumin 3.2 g/dL (3.4-5.0); Alkaline Phosphatase 65 U/L (46-116); Anion Gap 9.8 mmol/L (3-11); BUN 19 mg/dL (7-18); Bilirubin, Total 0.37 mg/dL (0.2-1.0); CO2 29.2 mmol/L (21.0-32.0); CREATININE 1.2 mg/dL (0.70-1.30); Chloride 104 mmol/L (98-107); Estimated GFR 67.11 (mL/min/1.73m2); FREE T4 0.84 ng/dL (0.76-1.46); Glucose 104 mg/dL (74-106); Magnesium 1.7 mg/dL (1.8-2.4); Potassium 3.5 mmol/L (3.5-5.1); Sodium 143 mmol/L (136-145); TSH 5.29 uIU/mL (0.36-3.74); Total Protein 6.8 g/dL (6.4-8.2)
== END 2024-01-30 02:35 | disposition home or self-care (01) ==
LOC: LBO 02:34
PROVIDERS: PCP Physician Assistant Medical; Visit Provider Internal Medicine Medical Oncology
DX: C34.11 Malignant neoplasm of upper lobe, right bronchus or lung (principal); C79.31 Secondary malignant neoplasm of brain; Z79.899 Other long term (current) drug therapy
CPT/HCPCS: 36415; 80053; 83735; 84439; 84443; 85025

== ENCOUNTER 2024-02-15 01:31 | Outpatient (CLI) | payer BC, SELFPAY ==
--- NOTE | 2024-02-15 | DI.MRI_ITS ---
Exam(s) MR BRAIN WO/W EXAM: MR BRAIN WO/W CLINICAL HISTORY: H/O NSCLC LT PARIETAL METS, S/P hfSRS COMP 05/25/23 TECHNIQUE: Multiplanar multisequence MRI of the brain was performed. Both noninfused and contrast i nfused sequences were performed. IV Contrast injected was cc Dotarem. COMPARISON: MR MR BRAIN WO/W from 11/29/2023 FINDINGS: CEREBRAL PARENCHYMA: No evidence of intracranial hemorrhage, mass effect nor shift of midline structu re. No extraaxial fluid collections. Ventricles are not enlarged nor shifted. The previously described solitary small high left parietal ring-enhancing lesion remains unchanged fr om 11/29/2023. No increasing edema around this area. There are no new ring-enhancing lesions in the brain. There is no abnormal signal in the cerebellar hemispheres nor within the serjio, midbrain, and thalami. Other nonenhancing FLAIR bright foci of signal abnormality in the periventricular white matter mehdi in unchanged and again not associated with hemorrhage nor surrounding edema nor restricted diffusion are consistent with chronic small vessel ischemic changes. PITUITARY GLAND: No mass nor parasellar abnormality. No obvious abnormality in the cavernous sinuses. FLOW VOIDS: The expected flow void are noted. No evidence of obvious aneurysm nor obvious vascular ma lformation. PARANASAL SINUSES: Mucosal disease in the maxillary sinuses is again noted. This is unchanged in the right maxillary sinus with post inflammatory retention cyst again noted. In the opposite-left maxil renata sinus there is slight decrease in amount of sinus disease although there are post inflammatory r etention cysts noted. The sphenoid and frontal sinuses are clear, and there is minimal disease in th e ethmoidal air cells. Bilateral mastoid air cell effusions again noted. ORBITS: No obvious new abnormal findings. IMPRESSION: 1. Stable unchanged appearance of the intracranial compartment. The solitary small high left parieta l metastatic lesion is unchanged from 11/29/2023. There are no new ring-enhancing lesions in the bra in. 2. Stable amount of non metastatic appearing white matter signal abnormality consistent with sequelae of chronic ischemic white matter disease. Slight decrease in amount of mucosal disease in the left maxillary sinus. Stable amount of mucosal d isease in the right maxillary sinus and mastoid air cells bilaterally. DATA REPOSITORY:
[2024-02-15] MEDS: Gadoterate meglumine 20 ML SYRINGE IVP (10:57)
[2024-02-15] MEDS: Normal Saline Flush 10 ML SYR IVP (10:57)
== END 2024-02-15 01:51 ==
LOC: DI 01:33
PROVIDERS: PCP Physician Assistant Medical; Visit Provider Physician Assistant
DX: I67.82 Cerebral ischemia (principal)
CPT/HCPCS: 70553

== ENCOUNTER 2024-02-20 02:05 | Outpatient (CLI) | payer BC, SELFPAY ==
[2024-02-20 07:33] LABS: Abs Immature Grans 0.42 10^3/uL (0.0-0.06); Absolute Basophil Count 0.04 10^3/uL (0.0-0.2); Absolute Eosinophil Count 0.01 10^3/uL (0.0-0.7); Absolute Lymphocyte Count 0.46 10^3/uL (1.2-3.4); Absolute Monocyte Count 0.61 10^3/uL (0.1-0.8); Absolute Neutrophil Count 6.87 10^3/uL (1.2-6.7); Basophils % 0.5 %; Eosinophils % 0.1 %; HCT 35.5 % (40.0-50.0); HGB 11.6 g/dL (13.5-17.5); Lymphocytes % 5.5 %; MCH 31.4 pg (27.0-33.0); MCHC 32.7 % (32.0-36.0); MCV 96 fL (80-95); MPV 8.3 fL (8.0-11.0); Monocytes % 7.3 %; Neutrophils % 81.6 %; Platelet Count 275 10^3/uL (130-400); RBC 3.69 10^6/uL (4.36-5.78); RDW 16.1 % (11.8-14.1); RDW-SD 56.8 fL; WBC 8.41 10^3/uL (4.4-10.8)
[2024-02-20 07:59] LABS: ALT 29 U/L (16-63); AST 24 U/L (15-37); Albumin 3.3 g/dL (3.4-5.0); Alkaline Phosphatase 76 U/L (46-116); Anion Gap 10.2 mmol/L (3-11); BUN 12 mg/dL (7-18); Bilirubin, Total 0.28 mg/dL (0.2-1.0); CO2 28.8 mmol/L (21.0-32.0); CREATININE 1.4 mg/dL (0.70-1.30); Calcium 9.2 mg/dL (8.5-10.1); Chloride 105 mmol/L (98-107); Estimated GFR 55.78 (mL/min/1.73m2); FREE T4 0.92 ng/dL (0.76-1.46); Glucose 103 mg/dL (74-106); Potassium 3.5 mmol/L (3.5-5.1); Sodium 144 mmol/L (136-145); TSH 2.05 uIU/mL (0.36-3.74); Total Protein 7.3 g/dL (6.4-8.2)
== END 2024-02-20 02:06 | disposition home or self-care (01) ==
LOC: LBO 02:06
PROVIDERS: PCP Physician Assistant Medical; Visit Provider Internal Medicine Medical Oncology
DX: C34.11 Malignant neoplasm of upper lobe, right bronchus or lung (principal); C79.31 Secondary malignant neoplasm of brain; Z79.899 Other long term (current) drug therapy
CPT/HCPCS: 36415; 80053; 83735; 84439; 84443; 85025

== ENCOUNTER 2024-03-12 03:55 | Outpatient (CLI) | payer BC, SELFPAY ==
[2024-03-12 08:09] LABS: Abs Immature Grans 0.51 10^3/uL (0.0-0.06); Absolute Basophil Count 0.05 10^3/uL (0.0-0.2); Absolute Eosinophil Count 0.03 10^3/uL (0.0-0.7); Absolute Lymphocyte Count 0.83 10^3/uL (1.2-3.4); Absolute Monocyte Count 1.08 10^3/uL (0.1-0.8); Absolute Neutrophil Count 7.93 10^3/uL (1.2-6.7); Basophils % 0.5 %; Eosinophils % 0.3 %; HCT 37.2 % (40.0-50.0); HGB 12.2 g/dL (13.5-17.5); Immature Grans % 4.9 %; MCH 32.1 pg (27.0-33.0); MCHC 32.8 % (32.0-36.0); MCV 98 fL (80-95); MPV 8.7 fL (8.0-11.0); Monocytes % 10.4 %; Neutrophils % 75.9 %; Platelet Count 211 10^3/uL (130-400); RDW 16.4 % (11.8-14.1); WBC 10.43 10^3/uL (4.4-10.8)
[2024-03-12 08:31] LABS: ALT 46 U/L (16-63); AST 30 U/L (15-37); Albumin 3.5 g/dL (3.4-5.0); Alkaline Phosphatase 81 U/L (46-116); Anion Gap 5.6 mmol/L (3-11); BUN 11 mg/dL (7-18); Bilirubin, Total 0.32 mg/dL (0.2-1.0); CO2 33.4 mmol/L (21.0-32.0); CREATININE 1.3 mg/dL (0.70-1.30); Calcium 9.3 mg/dL (8.5-10.1); Chloride 104 mmol/L (98-107); Estimated GFR 60.96 (mL/min/1.73m2); Glucose 92 mg/dL (74-106); Magnesium 1.8 mg/dL (1.8-2.4); Potassium 3.5 mmol/L (3.5-5.1); Sodium 143 mmol/L (136-145); Total Protein 7.3 g/dL (6.4-8.2)
[2024-03-12 08:32] LABS: Diff Comment Agrees w/ Instrument; Polychromasia Present
[2024-03-12 09:57] LABS: FREE T4 0.82 ng/dL (0.76-1.46); TSH 5.82 uIU/mL (0.36-3.74)
== END 2024-03-12 03:56 | disposition home or self-care (01) ==
LOC: LBO 03:55
PROVIDERS: PCP Physician Assistant Medical; Visit Provider Internal Medicine Medical Oncology
DX: C34.11 Malignant neoplasm of upper lobe, right bronchus or lung (principal); C79.31 Secondary malignant neoplasm of brain; Z79.899 Other long term (current) drug therapy
CPT/HCPCS: 36415; 80053; 83735; 84439; 84443; 85025

== ENCOUNTER 2024-04-02 02:50 | Outpatient (CLI) | payer BC, SELFPAY ==
[2024-04-02 08:18] LABS: Absolute Basophil Count 0.03 10^3/uL (0.0-0.2); Absolute Eosinophil Count 0.04 10^3/uL (0.0-0.7); Absolute Lymphocyte Count 0.62 10^3/uL (1.2-3.4); Absolute Monocyte Count 0.89 10^3/uL (0.1-0.8); Absolute Neutrophil Count 5.85 10^3/uL (1.2-6.7); Basophils % 0.4 %; Eosinophils % 0.5 %; HCT 37.3 % (40.0-50.0); HGB 12.7 g/dL (13.5-17.5); Immature Grans % 2.6 %; Lymphocytes % 8.1 %; MCH 33.2 pg (27.0-33.0); MCV 97 fL (80-95); MPV 8.4 fL (8.0-11.0); Monocytes % 11.7 %; Neutrophils % 76.7 %; Platelet Count 197 10^3/uL (130-400); RBC 3.83 10^6/uL (4.36-5.78); RDW 15.9 % (11.8-14.1); RDW-SD 55.9 fL; WBC 7.63 10^3/uL (4.4-10.8)
[2024-04-02 08:52] LABS: ALT 47 U/L (16-63); AST 33 U/L (15-37); Albumin 3.3 g/dL (3.4-5.0); Alkaline Phosphatase 65 U/L (46-116); Anion Gap 7.5 mmol/L (3-11); BUN 13 mg/dL (7-18); CO2 32.5 mmol/L (21.0-32.0); CREATININE 1.2 mg/dL (0.70-1.30); Calcium 8.9 mg/dL (8.5-10.1); Chloride 103 mmol/L (98-107); Estimated GFR 67.11 (mL/min/1.73m2); FREE T4 0.87 ng/dL (0.76-1.46); Glucose 103 mg/dL (74-106); Magnesium 1.6 mg/dL (1.8-2.4); Potassium 3.6 mmol/L (3.5-5.1); Sodium 143 mmol/L (136-145); TSH 2.73 uIU/mL (0.36-3.74); Total Protein 7.2 g/dL (6.4-8.2)
== END 2024-04-02 02:51 | disposition home or self-care (01) ==
LOC: LBO 02:50
PROVIDERS: PCP Physician Assistant Medical; Visit Provider Internal Medicine Medical Oncology
DX: C34.11 Malignant neoplasm of upper lobe, right bronchus or lung (principal); C79.31 Secondary malignant neoplasm of brain; Z79.899 Other long term (current) drug therapy
CPT/HCPCS: 36415; 80053; 83735; 84439; 84443; 85025

== ENCOUNTER 2024-04-24 04:28 | Outpatient (CLI) | payer BC, SELFPAY ==
[2024-04-24 11:15] LABS: Abs Immature Grans 0.43 10^3/uL (0.0-0.06); Absolute Basophil Count 0.03 10^3/uL (0.0-0.2); Absolute Eosinophil Count 0.02 10^3/uL (0.0-0.7); Absolute Neutrophil Count 6.93 10^3/uL (1.2-6.7); Basophils % 0.3 %; Eosinophils % 0.2 %; HCT 36.9 % (40.0-50.0); HGB 12.4 g/dL (13.5-17.5); Immature Grans % 4.9 %; Lymphocytes % 5.7 %; MCH 33.3 pg (27.0-33.0); MCHC 33.6 % (32.0-36.0); MCV 99 fL (80-95); MPV 8.4 fL (8.0-11.0); Monocytes % 9.2 %; Neutrophils % 79.7 %; Platelet Count 249 10^3/uL (130-400); RBC 3.72 10^6/uL (4.36-5.78); RDW 15.3 % (11.8-14.1); RDW-SD 54.8 fL; WBC 8.71 10^3/uL (4.4-10.8)
[2024-04-24 12:10] LABS: ALT 32 U/L (16-63); AST 26 U/L (15-37); Albumin 3.6 g/dL (3.4-5.0); Alkaline Phosphatase 73 U/L (46-116); Anion Gap 3.2 mmol/L (3-11); BUN 15 mg/dL (7-18); Bilirubin, Total 0.29 mg/dL (0.2-1.0); CO2 33.8 mmol/L (21.0-32.0); CREATININE 1.3 mg/dL (0.70-1.30); Calcium 9.5 mg/dL (8.5-10.1); Chloride 104 mmol/L (98-107); Estimated GFR 60.96 (mL/min/1.73m2); Glucose 109 mg/dL (74-106); Magnesium 1.8 mg/dL (1.8-2.4); Potassium 4.4 mmol/L (3.5-5.1); Sodium 141 mmol/L (136-145); TSH 1.54 uIU/mL (0.36-3.74); Total Protein 7.7 g/dL (6.4-8.2)
== END 2024-04-24 04:29 | disposition home or self-care (01) ==
PROVIDERS: PCP Physician Assistant Medical; Visit Provider Internal Medicine Medical Oncology
DX: C34.11 Malignant neoplasm of upper lobe, right bronchus or lung (principal); C79.31 Secondary malignant neoplasm of brain; Z79.899 Other long term (current) drug therapy
CPT/HCPCS: 36415; 80053; 83735; 84439; 84443; 85025

== ENCOUNTER 2024-04-25 01:42 | Outpatient (CLI) | payer BC, SELFPAY ==
--- NOTE | 2024-04-25 | DI.MRI_ITS ---
Exam(s) MR BRAIN WO/W EXAM: MR BRAIN WO/W CLINICAL HISTORY: Secondary malignant neoplasm of brain, C79.31; lt parietal mets s/p hfSRS TECHNIQUE: Multiplanar multisequence MRI of the brain was performed. Both noninfused and contrast i nfused sequences were performed. IV Contrast injected was 20 cc Dotarem. COMPARISON: MR MR BRAIN WO/W from 02/15/2024 FINDINGS: CEREBRAL PARENCHYMA: No evidence of intracranial hemorrhage, mass effect nor shift of midline structu re. No extraaxial fluid collections. Ventricles are not enlarged nor shifted. There is no significant focal signal abnormality in the cerebellar hemispheres nor within the serjio, m idbrain, and thalami. The previously described small high left parietal ring-enhancing lesion is again noted and appears un changed. There are no new ring-enhancing lesions in the brain and no new abnormal meningeal enhancem ent, focal nor diffuse. Other nonenhancing FLAIR bright foci of signal abnormality in the bilateral periventricular white mat ter remain unchanged and not associated with hemorrhage, surrounding edema, restricted diffusion, and are consistent with chronic small vessel ischemic changes. DWI: No new areas of restricted diffusion. SWI: No microhemorrhages evident. There are no ring enhancing lesions in the brain. There is no abnormal meningeal enhancement. PITUITARY GLAND: No mass nor parasellar abnormality. No obvious abnormality in the cavernous sinuses. FLOW VOIDS: The expected flow void are noted. No evidence of obvious aneurysm nor obvious vascular ma lformation. There are posterior communicating arteries incidentally noted on both sides the [place]-of -[place]. PARANASAL SINUSES: Post inflammatory retention cysts are again noted in both maxillary sinuses but wi thout associated fluid levels within the sinuses. The sphenoid sinuses are clear as are the frontal sinuses. Bilateral mastoid effusions are again evident. ORBITS: No obvious abnormal findings. IMPRESSION: 1. Stable unchanged appearance when compared to MRI scan of 02/15/2024. The solitary small high left parietal metastatic lesion is again unchanged and there are no new ring-enhancing lesions in the bra in nor abnormal meningeal enhancement. 2. Stable amount of non metastatic appearing white matter signal abnormality consistent with chronic small vessel disease.. 3. 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 Also bilater al mastoid air cell effusions again noted. DATA REPOSITORY:
--- NOTE | 2024-04-25 | DI.US_ITS ---
Exam(s) US EXTREMITY VENOUS BI EXAM: US EXTREMITY VENOUS BI CLINICAL HISTORY: Bilateral edema of lower extremity, R60.0, new onset in the setting of. TECHNIQUE: Bilateral lower extremity venous ultrasound performed using grayscale, color-flow, and sp ectral Doppler analysis. COMPARISON: No exams were available for comparison FINDINGS: The right common femoral, femoral and popliteal veins demonstrate normal compressibility, augmentatio n, and color Doppler. The visualized portions of the posterior tibialis veins are patent. The saphen ofemoral junction is unremarkable. There is no evidence of a Kevin's cyst. The soft tissues are unre markable. The left common femoral, femoral and popliteal veins demonstrate normal compressibility, augmentation , and color Doppler. The visualized portions of the posterior tibialis veins are patent. The sapheno femoral junction is unremarkable. There is no evidence of a Kevin's cyst. The soft tissues are unrem arkable. IMPRESSION: 1. No evidence of a right lower extremity DVT. 2. No evidence of a left lower extremity DVT. DATA REPOSITORY:
[2024-04-25] MEDS: Gadoterate meglumine 20 ML SYRINGE IVP (14:38)
[2024-04-25] MEDS: Normal Saline Flush 10 ML SYR IVP (14:39)
== END 2024-04-25 02:02 ==
PROVIDERS: PCP Physician Assistant Medical; Visit Provider Physician Assistant
DX: C79.31 Secondary malignant neoplasm of brain (principal); R60.0 Localized edema
CPT/HCPCS: 70553; 93970

== ENCOUNTER 2024-04-27 13:42 | Outpatient (CLI) | payer BC, SELFPAY ==
--- NOTE | 2024-04-27 13:45 | RT.EKG_ITS ---
APPROVED REPORT Exam: Resting ECG Reason for Exam: Sensation of Chest Pressure Patient Location: O HR:113 bpm ECG Measurements Heart Rate 113 AXIS AL 174 P 59 QRSd 80 QRS -69 QT 308 T 52 QTc 423 Conclusion Sinus tachycardia...rate> 99 Left anterior fascicular block...axis(240,-40), init forces inf
== END 2024-04-27 13:43 | disposition home or self-care (01) ==
PROVIDERS: PCP Physician Assistant Medical; Visit Provider Nurse Practitioner Family
DX: R07.9 Chest pain, unspecified (principal); R00.0 Tachycardia, unspecified
CPT/HCPCS: 93005; 93010

== ENCOUNTER 2024-05-14 04:14 | Outpatient (CLI) | payer BC, SELFPAY ==
[2024-05-14 11:39] LABS: Absolute Basophil Count 0.04 10^3/uL (0.0-0.2); Absolute Eosinophil Count 0.02 10^3/uL (0.0-0.7); Absolute Lymphocyte Count 0.43 10^3/uL (1.2-3.4); Absolute Neutrophil Count 7.71 10^3/uL (1.2-6.7); Basophils % 0.4 %; Eosinophils % 0.2 %; HCT 37.9 % (40.0-50.0); HGB 12.7 g/dL (13.5-17.5); Immature Grans % 4.3 %; Lymphocytes % 4.6 %; MCH 33.3 pg (27.0-33.0); MCHC 33.5 % (32.0-36.0); MCV 100 fL (80-95); Monocytes % 8.5 %; Platelet Count 176 10^3/uL (130-400); RBC 3.81 10^6/uL (4.36-5.78); RDW 15.3 % (11.8-14.1); RDW-SD 55.4 fL
[2024-05-14 12:04] LABS: ALT 41 U/L (16-63); AST 31 U/L (15-37); Albumin 3.3 g/dL (3.4-5.0); Alkaline Phosphatase 76 U/L (46-116); Anion Gap 8.2 mmol/L (3-11); BUN 16 mg/dL (7-18); Bilirubin, Total 0.2 mg/dL (0.2-1.0); CO2 30.8 mmol/L (21.0-32.0); CREATININE 1.3 mg/dL (0.70-1.30); Chloride 106 mmol/L (98-107); Estimated GFR 60.96 (mL/min/1.73m2); Glucose 116 mg/dL (74-106); Magnesium 1.8 mg/dL; Potassium 3.8 mmol/L (3.5-5.1); Sodium 145 mmol/L (136-145)
== END 2024-05-14 04:15 | disposition home or self-care (01) ==
LOC: LBO 04:14
PROVIDERS: PCP Physician Assistant Medical; Visit Provider Internal Medicine Medical Oncology
DX: C34.11 Malignant neoplasm of upper lobe, right bronchus or lung (principal); C79.31 Secondary malignant neoplasm of brain; Z79.899 Other long term (current) drug therapy
CPT/HCPCS: 36415; 80053; 83735; 84439; 84443; 85025

== ENCOUNTER 2024-05-15 01:14 | Outpatient (CLI) | payer BC, SELFPAY ==
--- NOTE | 2024-05-15 08:30 | DI.US_ITS ---
APPROVED REPORT EXAM: Comprehensive 2D, Doppler, and color-flow Echocardiogram Patient Location: Out-Patient Piping Designer: Rolan Bejarano RDCS (AE) Indications: Bilateral edema of lower extremity, SOB Conclusion Normal left ventricular wall thickness and chamber size. Ejection fraction is 65%. Wall motion is n ormal Normal right ventricular size and function Both atria are normal in size The aortic valve is mildly sclerotic and trileaflet without stenosis or regurgitation There is no additional significant valvular disease Ascending aorta measures 3.81 cm Wall motion Left Ventricle The left ventricle is normal size. Left ventricular systolic function is normal. The left ventricular ejection fraction is within the normal range. There is normal left ventricular wall thickness. There is normal LV segmental wall motion. There is no ventricular septal defect visualized. LVEF is 65%. Right Ventricle The right ventricle is normal size. The right ventricular systolic function is normal. Atria The left atrium size is normal. The right atrium size is normal. The interatrial septum is intact wit h no evidence for an atrial septal defect. Aortic Valve The aortic valve is mildly sclerotic. Aortic valve is trileaflet. There is no aortic valvular stenosi s. No aortic regurgitation is present. Mitral Valve The mitral valve is normal in structure. No evidence of mitral valve stenosis. There is no mitral darell ve regurgitation noted. Tricuspid Valve The tricuspid valve is normal in structure. There is no tricuspid valve stenosis. Trace tricuspid reg urgitation. Pulmonic Valve The pulmonary valve is normal in structure. There is no pulmonic valvular stenosis. There is no pulmo bentley valvular regurgitation. Great Vessels The aortic root is normal in size. The ascending aorta is mildly dilated. Aortic arch is normal in ca liber. The IVC is normal in size and collapses >50% with inspiration. Pericardium There is no pericardial effusion. 2D Dimensions IVSD d PLAX 0.90 cm M: 0.6-1.2 Ao Root d 3.59 cm M: 3.1 - 3.7 LVPW d PLAX 0.85 cm M: 0.6 - 1.2 Ao Asc Diam d 3.81 cm M: 2.6 - 3.4 LVID d PLAX 5.02 cm M: 4.2 - 5.8 LVDs 3.32 cm M: 2.5 - 4.0 LV EF Teichholz 62.4 % FS 33.82 % LV EDV (Teich) 119.2 mL LV ESV (Teich) 44.8 mL Stroke Vol Index (Teich) 31.39 M-Mode TAPSE 2.22 cm (M/F) >1.7 Auto EF LV EDV A4C 123.8 mL LV EDV A2C 95.6 mL LV EDV BP 109.6 mL LV ESV A4C 47.2 mL LV ESV A2C 33.1 mL LV ESV BP 38.7 mL LVEF(%) A4C 61.9 % LVEF(%) A2C 65.4 % LVEF(%) BP 64.7 % LV SV A4C 76.6 ml LV SV A2C 62.5 ml LV SV BP 71.0 ml LV CO A4C 6.7 L/min LV CO A2C 5.5 L/min LV CO BP 6.1 L/min HR A4C 87.38 BPM HR A2C 88.24 BPM LV EDV Index (BP) LA Volume LA Length A4C 3.3 cm LA Length A2C 3.4 cm LA Area A4C s 8.23 cm2 LA Area A2C s 8.54 cm2 LA Vol A4C A-L 17.30 mL LA Vol A2C A-L 17.98 mL LA Vol Biplane A-L 18.0 mL LA Vol/BSA A4C A-L LA Vol/BSA A2C A-L LA Vol/BSA BP A-L 7.6 mL/m2 LA Vol A4C MOD 16.3 mL LA Vol A2C MOD 16.7 mL LA Vol BP MOD 16.5 mL RA Volume RA Area A4C 9.8 cm2 RA ESV A4C (A-L) 18.8mL RA Vol/BSA A4C A-L RA Length A4C 4.4 cm RA ESV A4C (MOD) 18.6mL LV Diastology MV E' medial 0.082 (>0.07 m/s) MV E Vmax 0.81 (0.4-1.3 m/s) MV E/E' MED 9.86 (<14) MV A Vmax 0.95 (0.4-1.3 m/s) MV E' lateral 0.075 (>0.1 m/s) E/A Ratio 0.9 MV E/E' LAT 10.82 (<14) MV E' Average 0.079 m/s MV E/E'(average) 10.32 Aortic Valve AoV Vmax 1.12 m/s LVOT Vmax 0.99 m/s AoV Peak Grad 5.0 mmHg LVOT Peak Grad 3.9 mmHg AoV Area (Vmax) 3.76 cm2 LVOT VTI 0.213 m AoV VTI 0.233 m LVOT Mean Grad 2.4 mmHg AoV Mean Donal. 0.81 m/s LVOT SV 91.17 mL AoV Mean Grad 3.0 mmHg LVOT Diam s 2.30 cm AoV Area (VTI) 3.91 cm2 AV Regurg Peak Gr. 5.04 mmHg Velocity Ratio 0.88 Mitral Valve MV DT 166 (160-240 msec) Pulmonary Valve PV Vmax 0.80 (0.5-1.5 m/s) RVOT Vmax 0.69 m/s PV Peak Grad 2.5 mmHg RVOT Peak Gr. 1.9 mmHg PV Mean Donal 0.62 m/s RVOT VTI 0.125 m PV Mean Grad 1.7 mmHg RVOT Mean Gr. 1.2 mmHg
== END 2024-05-15 01:34 ==
PROVIDERS: PCP Physician Assistant Medical; Visit Provider Internal Medicine Cardiovascular Disease
DX: I35.8 Other nonrheumatic aortic valve disorders (principal); R06.02 Shortness of breath
CPT/HCPCS: 93306

== ENCOUNTER 2024-05-22 15:59 | Outpatient (REF) | payer BC, SELFPAY ==
[2024-05-22 15:37] LABS: Anion Gap 6.8 mmol/L (3-11); BUN 16 mg/dL (7-18); CO2 34.2 mmol/L (21.0-32.0); CREATININE 1.6 mg/dL (0.70-1.30); Calcium 9.7 mg/dL (8.5-10.1); Chloride 100 mmol/L (98-107); Estimated GFR 47.52 (mL/min/1.73m2); Glucose 120 mg/dL (74-106); NT-proBNP 43 pg/mL (<300); Potassium 4.1 mmol/L (3.5-5.1); Sodium 141 mmol/L (136-145)
== END 2024-05-22 16:00 | disposition home or self-care (01) ==
LOC: NCHCN 15:59
PROVIDERS: PCP Physician Assistant Medical; Visit Provider Physician Assistant Medical
DX: R60.0 Localized edema (principal)
CPT/HCPCS: 80048; 83735; 83880

== ENCOUNTER 2024-06-04 01:44 | Outpatient (CLI) | payer BC, SELFPAY ==
[2024-06-04 13:21] LABS: Abs Immature Grans 0.42 10^3/uL (0.0-0.06); Absolute Basophil Count 0.04 10^3/uL (0.0-0.2); Absolute Eosinophil Count 0.01 10^3/uL (0.0-0.7); Absolute Lymphocyte Count 0.37 10^3/uL (1.2-3.4); Absolute Monocyte Count 0.54 10^3/uL (0.1-0.8); Absolute Neutrophil Count 7.87 10^3/uL (1.2-6.7); Basophils % 0.4 %; Eosinophils % 0.1 %; HCT 39.9 % (40.0-50.0); HGB 13.2 g/dL (13.5-17.5); Immature Grans % 4.5 %; MCH 33.2 pg (27.0-33.0); MCHC 33.1 % (32.0-36.0); MCV 101 fL (80-95); MPV 8.6 fL (8.0-11.0); Monocytes % 5.8 %; Neutrophils % 85.2 %; Platelet Count 267 10^3/uL (130-400); RBC 3.97 10^6/uL (4.36-5.78); RDW 14.6 % (11.8-14.1); RDW-SD 53.4 fL; WBC 9.25 10^3/uL (4.4-10.8)
[2024-06-04 13:45] LABS: ALT 33 U/L (16-63); AST 27 U/L (15-37); Albumin 3.5 g/dL (3.4-5.0); Alkaline Phosphatase 77 U/L (46-116); Anion Gap 9.6 mmol/L (3-11); BUN 11 mg/dL (7-18); Bilirubin, Total 0.3 mg/dL (0.2-1.0); CO2 30.4 mmol/L (21.0-32.0); CREATININE 1.5 mg/dL (0.70-1.30); Calcium 9.6 mg/dL (8.5-10.1); Chloride 104 mmol/L (98-107); Estimated GFR 51.35 (mL/min/1.73m2); FREE T4 1.08 ng/dL (0.76-1.46); Glucose 127 mg/dL (74-106); Magnesium 1.8 mg/dL; Potassium 4.4 mmol/L (3.5-5.1); Sodium 144 mmol/L (136-145); TSH 1.56 uIU/mL (0.36-3.74); Total Protein 7.6 g/dL (6.4-8.2)
[2024-06-05 14:16] LABS: Hemoglobin A1C 5.2 % (<5.7)
== END 2024-06-04 01:45 | disposition home or self-care (01) ==
LOC: LBO 01:44
PROVIDERS: PCP Physician Assistant Medical; Visit Provider Internal Medicine Medical Oncology
DX: C34.11 Malignant neoplasm of upper lobe, right bronchus or lung (principal); C79.31 Secondary malignant neoplasm of brain; Z79.899 Other long term (current) drug therapy
CPT/HCPCS: 36415; 80053; 83036; 83735; 84439; 84443; 85025

== ENCOUNTER 2024-06-14 13:38 | Outpatient (RCR) | payer BC, SELFPAY ==
--- NOTE | 2024-06-19 15:33 | W.HOLTRPT ---
Date of service: 06/19/24 Time of Service: 15:33 Holter Monitor Report Referring Provider:: Anais Varma Indications:: Palpitations Holter Monitor Note: This is a 48-hour Holter monitor. Rhythm throughout was sinus with an average heart rate of 95. Minimum was 70, maximum 142. There were 3 premature ventricular contractions. A total of 50 premature atrial contractions occurred. There was no atrial fibrillation, no high-grade AV block, no pauses greater than 3 seconds. Symptoms correlated with sinus tachycardia at 104
== END 2024-07-04 23:59 | disposition home or self-care (01) ==
LOC: CARDOPNVT 13:38
PROVIDERS: PCP Physician Assistant Medical; Visit Provider Internal Medicine Cardiovascular Disease
DX: R00.2 Palpitations (principal); I49.1 Atrial premature depolarization
CPT/HCPCS: 93225; 93226

== ENCOUNTER 2024-06-25 03:17 | Outpatient (CLI) | payer BC, SELFPAY ==
[2024-06-25 12:47] LABS: Abs Immature Grans 0.33 10^3/uL (0.0-0.06); Absolute Basophil Count 0.04 10^3/uL (0.0-0.2); Absolute Eosinophil Count 0.09 10^3/uL (0.0-0.7); Absolute Lymphocyte Count 0.54 10^3/uL (1.2-3.4); Absolute Monocyte Count 1.01 10^3/uL (0.1-0.8); Absolute Neutrophil Count 8.33 10^3/uL (1.2-6.7); Basophils % 0.4 %; Eosinophils % 0.9 %; HCT 38.8 % (40.0-50.0); HGB 12.8 g/dL (13.5-17.5); Immature Grans % 3.2 %; Lymphocytes % 5.2 %; MCH 32.4 pg (27.0-33.0); MCV 98 fL (80-95); MPV 8.6 fL (8.0-11.0); Monocytes % 9.8 %; Neutrophils % 80.5 %; Platelet Count 328 10^3/uL (130-400); RBC 3.95 10^6/uL (4.36-5.78); RDW 13.9 % (11.8-14.1); WBC 10.34 10^3/uL (4.4-10.8)
[2024-06-25 13:19] LABS: ALT 20 U/L (16-63); AST 23 U/L (15-37); Albumin 3.4 g/dL (3.4-5.0); Alkaline Phosphatase 86 U/L (46-116); Anion Gap 8.9 mmol/L (3-11); BUN 11 mg/dL (7-18); Bilirubin, Total 0.3 mg/dL (0.2-1.0); CO2 30.1 mmol/L (21.0-32.0); CREATININE 1.6 mg/dL (0.70-1.30); Calcium 9.9 mg/dL (8.5-10.1); Chloride 101 mmol/L (98-107); Estimated GFR 47.52 (mL/min/1.73m2); FREE T4 1.07 ng/dL (0.76-1.46); Glucose 121 mg/dL (74-106); Magnesium 1.9 mg/dL (1.8-2.4); Potassium 3.8 mmol/L (3.5-5.1); Sodium 140 mmol/L (136-145); TSH 2.56 uIU/mL (0.36-3.74); Total Protein 7.8 g/dL (6.4-8.2)
== END 2024-06-25 03:18 | disposition home or self-care (01) ==
LOC: LBO 03:17
PROVIDERS: PCP Physician Assistant Medical; Visit Provider Internal Medicine Medical Oncology
DX: C34.11 Malignant neoplasm of upper lobe, right bronchus or lung (principal); C79.31 Secondary malignant neoplasm of brain; Z79.899 Other long term (current) drug therapy
CPT/HCPCS: 36415; 80053; 83735; 84439; 84443; 85025

== ENCOUNTER 2024-06-29 15:32 | Emergency (ER) | payer BC, SELFPAY ==
[2024-06-29] VITALS (24 sets, daily range): BP systolic 95–126; BP diastolic 55–80; PULSE 88–122; RESP 13–32; TEMP 36.8–37; O2SAT 84–97
--- NOTE | 2024-06-29 15:45 | ED.GENADUL_ITS ---
Discharge Plan Disposition Patient Disposition: Home Condition: Stable Discharge Details Clinical Impression: Pneumonia Primary Care Provider: Anais Varma ED Provider: Konstantin Hauser Home Meds and New Rx's Prescriptions: New cefpodoxime 200 mg tablet 200 mg PO BID 5 Days Qty: 9 0RF Rx Instructions: must administer with a meal/food azithromycin 250 mg tablet 250 mg PO DAILY 4 Days Qty: 4 0RF Rx Instructions: start on day 2 of therapy Continued loratadine 10 mg tablet 10 mg PO DAILY Patient Comments: TAKE ONE TABLET BY MOUTH EVERY DAY fluticasone propion-salmeterol [Advair HFA] 230-21 mcg/actuation HFA aerosol inhaler 2 inh INHALATION BID folic acid 1 mg tablet 1 mg PO DAILY Patient Comments: TAKE ONE TABLET BY MOUTH EVERY DAY prochlorperazine maleate 10 mg tablet 10 mg PO Q6H Patient Comments: TAKE ONE TABLET BY MOUTH EVERY 6 HOURS NEEDED FOR NAUSEA magnesium oxide 400 mg (241.3 mg magnesium) tablet 400 mg PO DAILY Patient Comments: TAKE ONE TABLET BY MOUTH EVERY DAY propranolol 20 mg tablet 20 mg PO BID Patient Comments: TAKE ONE TABLET BY MOUTH TWICE A DAY ipratropium-albuterol 0.5 mg-3 mg(2.5 mg base)/3 mL solution for nebulization 3 ml INHALATION TID PRN Patient Comments: INHALE THE CONTENTS OF ONE VIAL VIA NEBULIZER THREE TIMES A DAY Discontinued levofloxacin 500 mg tablet 500 mg PO DAILY Patient Comments: TAKE ONE TABLET BY MOUTH EVERY DAY Discharge Instructions Instructions: Azithromycin (Systemic), Cefpodoxime, Pneumonia, Adult ED Additional Instructions: You were seen in the emergency department for your ongoing pneumonitis treatment which does not appear to be better, I am taking you off of levofloxacin and have you start dual antibiotic therapy for this. Please continue to use your Compazine at home, combine with 1 tablet of Benadryl to aid in nausea relief, you may have a common current stomach bug but there appears to be no emergent abdominal process, no pulmonary embolism, no other emergent concerns on your laboratory workup-your COVID and flu swab is negative. Please follow-up with your primary care provider, please return to the emergency department for any severe increase in abdominal pain especially fever, intractable nausea or vomiting, complete liquid diarrhea, worsening respiratory distress, or any other emergent concerns. Referrals: Anais Varma PA [Primary Care Provider] - Discharge Data Discharge Date/Time-TO BE ENTERED AT DEPARTURE: 06/29/24 19:49 HPI General Date/Time Provider Initiated Documentation: 06/29/24 15:39 . HPI Narrative: 63 year-old male presents to ED today by POV/ambulating with a chief complaint of fever, nausea, vomiting- on chemotherapy for stage IV cancer, poor PO intake with onset over the past few days. Quality described as generalized malaise, no radiation to chest pain, shortness of breath, near syncope, focal abdominal pain, black/bloody stools, hematuria, cough. Severity is described as moderate. Palliating factors include nothing specific- fevers responding to Tylenol. Provoking factors include nothing specific. Patient has had ongoing treatment for chronic pneumonitis. Patient not anticoagulated. Related Data Home Medications ?Medication ?Instructions ?Recorded ?Confirmed fluticasone propionate 230 2 inh inhalation BID 07/29/23 06/29/24 mcg-salmeterol 21 mcg/actuation HFA inhaler (Advair HFA) folic acid 1 mg tablet 1 mg PO DAILY 07/29/23 06/29/24 prochlorperazine maleate 10 mg 10 mg PO Q6H 07/29/23 06/29/24 tablet loratadine 10 mg tablet 10 mg PO DAILY 12/18/23 06/29/24 azithromycin 250 mg tablet 250 mg PO DAILY 4 days #4 tabs 06/29/24 cefpodoxime 200 mg tablet 200 mg PO BID 5 days #9 tabs 06/29/24 ipratropium 0.5 mg-albuterol 3 mg 3 ml inhalation TID PRN 06/29/24 06/29/24 (2.5 mg base)/3 mL nebulization soln magnesium oxide 400 mg (241.3 mg 400 mg PO DAILY 06/29/24 06/29/24 magnesium) tablet propranolol 20 mg tablet 20 mg PO BID 06/29/24 06/29/24 Previous Rx's ?Medication ?Instructions ?Recorded azithromycin 250 mg tablet 250 mg PO DAILY 4 days #4 tabs 06/29/24 cefpodoxime 200 mg tablet 200 mg PO BID 5 days #9 tabs 06/29/24 Allergies Allergy/AdvReac Type Severity Reaction Status Date / Time aspirin Allergy Severe Anaphylaxis Verified 06/29/24 16:34 Penicillins AdvReac Intermediate makes me Verified 06/29/24 16:34 kind of crazy General Stated Complaint: Fever MK: 3 Review of Systems All systems reviewed & are unremarkable except as noted in HPI and below Exam Narrative Exam Narrative: GENERAL APPEARANCE: Well-nourished, non-toxic, awake and alert, atraumatic, no acute distress. SKIN: Warm, pink, dry, intact, without rashes/lesions/ulcerations. HEAD: Normocephalic, atraumatic, normal hair distribution for gender/age. EYES: Normal conjunctiva, no exudates on lids/lashes. ENT: Nares patent, no circumoral cyanosis, no facial swelling NECK: Supple, trachea midline, painless cervical ROM. LUNGS/CHEST: Lungs CTA bilaterally- no rhonchi/rales/wheezes diffusely, non- labored respirations, normal A/P diameter, symmetrical expansion, no chest wall deformity HEART (CV/PV): Regular rate and rhythm without murmur, no peripheral edema, no JVD. ABDOMEN: Soft, non-distended, no guarding, no tenderness. MSK: Normal ROM, no swelling/deformity to bilateral UEs or LEs, moving all extremities without weakness, no cyanosis, spine midline without tenderness, normal curvature. NEURO: Mental Status AAOx4 - alert to person, place, time, events No facial droop, no forehead involvement. Motor: No focal weakness - strength 5/5 in bilateral UEs and LEs, proximal and distal, symmetric. Sensory: sensation intact to light touch globally. Gait normal: patient ambulated without ataxia into ED room. PSYCH: euthymic, cooperative, pleasant, appropriate speech Course Vital Signs Vital signs: Vital Signs Temperature 36.8 C 06/29/24 15:38 Pulse 104 H 06/29/24 15:38 Respiratory Rate 16 06/29/24 15:38 Blood Pressure 126/80 06/29/24 15:38 Pulse Oximetry 97 06/29/24 15:38 Temperature 36.8 C 06/29/24 15:38 Temperature Source Oral 06/29/24 15:38 Pulse 104 H 06/29/24 15:38 Respiratory Rate 16 06/29/24 15:38 Blood Pressure 126/80 06/29/24 15:38 Blood Pressure Position Sitting 06/29/24 15:38 Pulse Oximetry 97 06/29/24 15:38 Oxygen Delivery Method Room Air 06/29/24 15:38 Oxygen Flow Rate 0 06/29/24 15:38 Medical Decision Making This dictation utilizes [id number] dictation software and may contain unedited grammatical errors. 63 year-old male presents to ED today by POV/ambulating with a chief complaint of fever, nausea, vomiting- on chemotherapy for stage IV cancer, poor PO intake with onset over the past few days. Quality described as generalized malaise, no radiation to chest pain, shortness of breath, near syncope, focal abdominal pain, black/bloody stools, hematuria, cough. Severity is described as moderate. Palliating factors include nothing specific- fevers responding to Tylenol. Provoking factors include nothing specific. Patients' medical history: History of pneumonia, chronic low back pain, lung cancer. Family and social history: Lives at home with his , no recent travel or sick contacts. Pertinent exam findings / vital signs include lungs CTA, benign abdomen, mild tachycardia but overall nontoxic vital signs, neuro intact, afebrile. Differential / pathologies of concern include sepsis, PE, biliary colic, malignancy, gastritis, gastroenteritis, pneumonia. Diagnostic studies of: - CBC, CMP, lipase, respiratory PCR swab, blood cultures, CTA chest, CT abdomen pelvis with, EKG. - CBC shows no leukocytosis, no left shift, mildly elevated absolute neutrophil count - Lactate negative - CMP shows mild hypokalemia 3.4, will replete with normal p.o. intake mild chronic JULIAN - Lipase negative - Respiratory panel PCR swab negative - Blood cultures pending - CT shows no evidence of PE, shows worsening bilateral infiltrates, unchanged pancreatic lesion, patient has MRI scheduled - EKG shows sinus rhythm at 105 bpm with P waves so a narrow complex QRS, left anterior fascicular block, T wave version V1, no ST depressions or reciprocal elevations, normal QTc, consistent with priors Interventions of: - IVP Zofran, IV ceftriaxone, IV azithromycin, continuation of outpatient antibiotics. ED Course/Assessment/Plan: 63-year-old immunocompromise male presents with poor p.o. intake, nausea vomiting, somewhat baseline after chemotherapy last Tuesday. Has been ongoing treatment for chronic pneumonitis, labs show no evidence of sepsis, CTA shows no PE, CT abdomen pelvis shows no acute intra-abdominal pathology, patient shows worsening bilateral infiltrates consistent with pneumonia, will treat em pirically with dual antibiotic therapy due to the patient's multiple chronic comorbidities. Strict return criteria for any respiratory distress, further intractable nausea or vomiting, high fevers not responding to Tylenol ibuprofen recommend follow-up with his oncology team. Findings not consistent with hypoxic respiratory failure, sepsis, biliary cholangitis, pulmonary embolism, acute surgical abdominal problem. Disposition of pneumonia. Patient verbalized understanding of the plan and return to ED criteria and engaged in shared decision making. Medical Records Medical records reviewed: Yes I reviewed the patient's medical records. Imaging Data Radiologic Study: Attestation: I personally reviewed and interpreted this imaging study as follows: Imaging: CT Scan Radiologist's impression: EXAM: CT CHEST PE ABD PELVIS W CLINICAL HISTORY: SOB; active CA, LLQ tenderness. TECHNIQUE: Imaging Protocol: Axial CT angiography was performed with multi-sl ice acquisition and multi-planar and/or 3D reconstructions. Computer aided detection (CAD) was utilized. CONTRAST MATERIAL: Intravenous: Omnipaque 350contrast volume:100 mL COMPARISON: CT CT CHEST/ABD/PEL W from 05/28/2024 FINDINGS: CHEST: Tracheobronchial tree: Patent where visualized. No evidence of bronchiectasis. Pulmonary parenchyma: The ground-glass infiltrates in the left upper and left lower lobe have progressed since the prior examination from 05/28/2024. There also has been progression of the ground-glass infiltrates in the right lung, particularly the right lower lobe. The right perihilar infiltrate is unchanged. Pulmonary Arteries: No evidence of filling defect to suggest pulmonary emboli. Mediastinum and Amaris: No dominant adenopathy or fluid collection. The esophagus is unremarkable. Visualized thyroid gland: Unremarkable. Pleura: No effusion or pneumothorax. Heart: The heart is not dilated. Mild coronary artery calcification. No pericardial effusion. Aorta: Thoracic aorta non-dilated. No evidence of dissection. Atherosclerotic calcification is present. Bones: Within normal limits for the patient's age. Soft tissues: Mild gynecomastia bilaterally. ABDOMEN: Liver: There is focal fatty infiltration in the left lobe of the liver. No measurable mass. Portal, Superior Mesenteric, and Splenic Veins: Unremarkable. Gallbladder and Biliary Tract: No radiodense calculus or dilation. Pancreas: Normal density, no abnormal calcifications or inflammatory process. Spleen: Normal. Adrenals: No masses seen. Kidneys: Normal size, contour and axis. No radiodense stones or obstructive uropathy. No masses seen. Abdominal Aorta: Abdominal portion non-dilated. Atherosclerotic calcification is present. Bowel: No obstruction or bowel wall thickening. There is a tiny hiatal hernia. There is no evidence of an appendicitis. Peritoneal Cavity: No ascites, collection or mesenteric inflammatory response. No free air. Lymph Nodes: Within normal limits. Bones: Within normal limits for the patient's age. No aggressive osseous lesions. Soft Tissues: Small fat containing umbilical hernia. PELVIS: Bladder: There is mild diffuse thickening of the wall of the urinary bladder. This may be due to underdistention. Chronic bladder outlet obstruction or cystitis cannot be excluded. Please correlate clinically. Reproductive Organs: Enlarged prostate gland. Lymph Nodes: Within normal limits. Bones: Within normal limits. IMPRESSION: 1. No evidence pulmonary embolism, thoracic aortic dissection or aneurysm. 2. Worsening of the bilateral pulmonary infiltrates since the prior examination. Findings may represent pneumonia. Please correlate clinically. 3. No acute abdominal or pelvic process. 4. The area of concern in the anterior pancreatic body is unchanged. And measures approximately 1.3 cm. (Series 28, image 41). Outpatient MRI of the pancreas is recommended for further evaluation. Lab Data Lab results reviewed: Yes I reviewed the patient's lab results. Labs: 06/29/24 16:38 Blood Blood Culture - Pending 06/29/24 16:23 Blood Blood Culture - Pending Laboratory Tests Range/Units 06/29/24 06/29/24 16:23 16:33 WBC (4.4-10.8) 10^3/uL 9.13 RBC (4.36-5.78) 10^6/uL 3.71 L Hgb (13.5-17.5) g/dL 11.9 L Hct (40.0-50.0) % 35.1 L MCV (80-95) fL 95 MCH (27.0-33.0) pg 32.1 MCHC (32.0-36.0) % 33.9 RDW (11.8-14.1) % 13.5 Plt Count (130-400) 10^3/uL 309 MPV (8.0-11.0) fL 8.9 Immature Gran % % 0.5 Neutrophils % % 90.6 Lymphocytes % % 4.6 Monocytes % % 1.9 Eosinophils % % 2.1 Basophils % % 0.3 Nucleated RBC % (0.0-0.3) % 0.0 Absolute Neutrophils (1.2-6.7) 10^3/uL 8.27 H Absolute Lymphocytes (1.2-3.4) 10^3/uL 0.42 L Absolute Monocytes (0.1-0.8) 10^3/uL 0.17 Absolute Eosinophils (0.0-0.7) 10^3/uL 0.19 Absolute Basophils (0.0-0.2) 10^3/uL 0.03 VBG Lactate (<or=2.0) mmol/L 1.2 Sodium (136-145) mmol/L 137 Potassium (3.5-5.1) mmol/L 3.4 L Chloride (98-107) mmol/L 98 Carbon Dioxide (21.0-32.0) mmol/L 28.0 Anion Gap (3-11) mmol/L 11.0 BUN (7-18) mg/dL 17 Creatinine (0.70-1.30) mg/dL 1.5 H Est GFR (CKD-EPI 2020) (mL/min/1.73m2) 51.35 Glucose (74-106) mg/dL 133 H Calcium (8.5-10.1) mg/dL 9.4 Total Bilirubin (0.2-1.0) mg/dL 1.0 AST (15-37) U/L 44 H ALT (16-63) U/L 28 Alkaline Phosphatase (46-116) U/L 86 Total Protein (6.4-8.2) g/dL 7.8 Albumin (3.4-5.0) g/dL 3.2 L Lipase (<78) U/L 29 COVID-19 Source Nasopharynx SARS-CoV-2 (PCR) (Negative) Negative Influenza Type A (PCR) (Negative) Negative Influenza Type B (PCR) (Negative) Negative RSV (PCR) (Negative) Negative Quality:SDOH Health Related Social Needs: No Data to Display PFSH All Active Problems (Updated 06/29/24 @ 17:45 by SUNG Avila) Pneumonia (Acute) Chronic low back pain (Chronic) Dyspnea (Acute) Renal insufficiency, mild (Acute) CAP (community acquired pneumonia) (Acute) Medical History Lung cancer Family History (Updated 03/31/23 @ 11:58 by Yvonne Segal RN, RN) Mother , 70s No problems noted. Father , 80s alzheimers Prostate cancer Social History (Updated 03/31/23 @ 11:57 by Yvonne Segal RN, RN) Smoking/Tobacco Use Status: Former Tobacco Use Quit Date: 03/07/12 Pack-years: 40 Smoking risk assessment performed?: Yes Alcohol Intake: current Alcohol Intake frequency: holidays/special occasions only Alcohol type: hard liquor Drug use: Never Substance use type: does not use Details: pt chews one can a day Household members: spouse Housing: house Number of Children: 3 number of grandchildren: 1 What is your relationship status?: Panel score (0-1 are the most socially isolated patients): 1 Do you feel safe at home: Yes Do you feel safe in your relationship?: Yes
--- NOTE | 2024-06-29 15:45 | DI.CT_ITS ---
Exam(s) CT CHEST PE ABD PELVIS W EXAM: CT CHEST PE ABD PELVIS W CLINICAL HISTORY: SOB; active CA, LLQ tenderness. TECHNIQUE: Imaging Protocol: Axial CT angiography was performed with multi-slice acquisition and mu lti-planar and/or 3D reconstructions. Computer aided detection (CAD) was utilized. CONTRAST MATERIAL: Intravenous: Omnipaque 350contrast volume:100 mL COMPARISON: CT CT CHEST/ABD/PEL W from 05/28/2024 FINDINGS: CHEST: Tracheobronchial tree: Patent where visualized. No evidence of bronchiectasis. Pulmonary parenchyma: The ground-glass infiltrates in the left upper and left lower lobe have progres sed since the prior examination from 05/28/2024. There also has been progression of the ground-glass i nfiltrates in the right lung, particularly the right lower lobe. The right perihilar infiltrate is u nchanged. Pulmonary Arteries: No evidence of filling defect to suggest pulmonary emboli. Mediastinum and Amaris: No dominant adenopathy or fluid collection. The esophagus is unremarkable. Visualized thyroid gland: Unremarkable. Pleura: No effusion or pneumothorax. Heart: The heart is not dilated. Mild coronary artery calcification. No pericardial effusion. Aorta: Thoracic aorta non-dilated. No evidence of dissection. Atherosclerotic calcification is prese nt. Bones: Within normal limits for the patient's age. Soft tissues: Mild gynecomastia bilaterally. ABDOMEN: Liver: There is focal fatty infiltration in the left lobe of the liver. No measurable mass. Portal, Superior Mesenteric, and Splenic Veins: Unremarkable. Gallbladder and Biliary Tract: No radiodense calculus or dilation. Pancreas: Normal density, no abnormal calcifications or inflammatory process. Spleen: Normal. Adrenals: No masses seen. Kidneys: Normal size, contour and axis. No radiodense stones or obstructive uropathy. No masses seen. Abdominal Aorta: Abdominal portion non-dilated. Atherosclerotic calcification is present. Bowel: No obstruction or bowel wall thickening. There is a tiny hiatal hernia. There is no evidence of an appendicitis. Peritoneal Cavity: No ascites, collection or mesenteric inflammatory response. No free air. Lymph Nodes: Within normal limits. Bones: Within normal limits for the patient's age. No aggressive osseous lesions. Soft Tissues: Small fat containing umbilical hernia. PELVIS: Bladder: There is mild diffuse thickening of the wall of the urinary bladder. This may be due to und erdistention. Chronic bladder outlet obstruction or cystitis cannot be excluded. Please correlate c linically. Reproductive Organs: Enlarged prostate gland. Lymph Nodes: Within normal limits. Bones: Within normal limits. IMPRESSION: 1. No evidence pulmonary embolism, thoracic aortic dissection or aneurysm. 2. Worsening of the bilateral pulmonary infiltrates since the prior examination. Findings may repres ent pneumonia. Please correlate clinically. 3. No acute abdominal or pelvic process. 4. The area of concern in the anterior pancreatic body is unchanged. And measures approximately 1.3 cm. (Series 28, image 41). Outpatient MRI of the pancreas is recommended for further evaluation. RADIATION DOSE DELIVERED: 1,027.04mGy.cm Total DLP DATA REPOSITORY: All CT scans at this facility are submitted to the National Radiology Data Registry (NRDR) Dose Index Registry (DIR) with the [employer] (A[employer]). RADIATION OPTIMIZATION: All CT scans at this facility use at least one of these dose optimization te chniques: automated exposure control; mA and/or kV adjustment per patient size (includes targeted exa ms where dose is matched to clinical indication); or iterative reconstruction.
--- NOTE | 2024-06-29 15:45 | RT.EKG_ITS ---
APPROVED REPORT Exam: Resting ECG Reason for Exam: shortness of breath Patient Location: E HR:105 bpm ECG Measurements Heart Rate 105 AXIS GA 171 P 65 QRSd 91 QRS -47 QT 331 T 35 QTc 438 Conclusion Sinus tachycardia...rate> 99 Left anterior fascicular block...axis(240,-40), init forces inf Sinus tachycardia, left anterior fasicular block. Decreased HR, otherwise no change from prior . WD
[2024-06-29 16:29] LABS: Lactate 1.2 mmol/L (<or=2.0)
[2024-06-29 16:32] LABS: Abs Immature Grans 0.05 10^3/uL (0.0-0.06); Absolute Basophil Count 0.03 10^3/uL (0.0-0.2); Absolute Eosinophil Count 0.19 10^3/uL (0.0-0.7); Absolute Lymphocyte Count 0.42 10^3/uL (1.2-3.4); Absolute Monocyte Count 0.17 10^3/uL (0.1-0.8); Absolute Neutrophil Count 8.27 10^3/uL (1.2-6.7); Basophils % 0.3 %; Eosinophils % 2.1 %; HCT 35.1 % (40.0-50.0); HGB 11.9 g/dL (13.5-17.5); Immature Grans % 0.5 %; Lymphocytes % 4.6 %; MCH 32.1 pg (27.0-33.0); MCHC 33.9 % (32.0-36.0); MCV 95 fL (80-95); MPV 8.9 fL (8.0-11.0); Monocytes % 1.9 %; Neutrophils % 90.6 %; Platelet Count 309 10^3/uL (130-400); RBC 3.71 10^6/uL (4.36-5.78); RDW 13.5 % (11.8-14.1); RDW-SD 46.5 fL; WBC 9.13 10^3/uL (4.4-10.8)
[2024-06-29] MEDS: Normal Saline 1,000 ML 1000 ML IV (16:40)
[2024-06-29] MEDS: Ondansetron 4 MG/2 ML VIAL IVP (16:40)
[2024-06-29] MEDS: Omnipaque 350 MG/ML 100 ML BTL IJ (16:48)
[2024-06-29 16:58] LABS: ALT 28 U/L (16-63); AST 44 U/L (15-37); Albumin 3.2 g/dL (3.4-5.0); Alkaline Phosphatase 86 U/L (46-116); BUN 17 mg/dL (7-18); CREATININE 1.5 mg/dL (0.70-1.30); Calcium 9.4 mg/dL (8.5-10.1); Chloride 98 mmol/L (98-107); Estimated GFR 51.35 (mL/min/1.73m2); Glucose 133 mg/dL (74-106); Lipase 29 U/L (<78); Potassium 3.4 mmol/L (3.5-5.1); Sodium 137 mmol/L (136-145); Total Protein 7.8 g/dL (6.4-8.2)
[2024-06-29] MEDS: Normal Saline - Diluent 50 ML VIAL IJ (16:59)
[2024-06-29 17:27] LABS: COVID-19 PCR Negative (Negative); Influenza A PCR Negative (Negative); Influenza B PCR Negative (Negative); RSV PCR Negative (Negative)
[2024-06-29 17:30] LABS: Source Nasopharynx
[2024-06-29 17:57] LABS: Bilirubin Negative (Negative); Blood Trace-intact (Negative); Clarity Clear (Clear); Glucose Negative (Negative); Ketones Negative (Negative); Leukocyte Esterase Negative (Negative); Nitrite Negative (Negative); Specific Gravity <= 1.005 (1.005-1.025); Urobilinogen 0.2 mg/dL (Up to 0.2); pH 5.5 (5-8)
[2024-06-29 18:03] LABS: Bacteria Negative HPF (Negative); C & S Indicated? No; Crystals Negative HPF (Negative); Epithelial Cells Rare HPF (Negative); Mucus Negative (Negative); WBC Negative HPF (0-5)
[2024-06-29] MEDS: cefTRIAXone 2 GM/50 ML BAG IVPB (18:12)
[2024-06-29] MEDS: AZITHROMYCIN 500 MG in Normal Saline 250 ML 250 MG IVPB (18:24)
== END 2024-06-29 19:49 | disposition home or self-care (01) ==
PROVIDERS: Emergency Provider Physician Assistant; PCP Physician Assistant Medical
DX: J18.9 Pneumonia, unspecified organism (principal)
CPT/HCPCS: 36415; 71275; 74177; 80053; 83690; 87040; 87637; 93005; 96361; 96365; 96375; 99285; 81003; 81015; 83605; 85025; 93010; J0456; J0696; J2405; J3490

== ENCOUNTER 2024-07-03 00:13 | Outpatient (CLI) | payer BC, SELFPAY ==
--- NOTE | 2024-07-03 | DI.MRI_ITS ---
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 CONTRAST MATERIAL: IV Contrast: 20 mL of Dotarem contrast administered. COMPARISON: CT CT THORAX CTA from 05/26/2018 CT,PT NM PET CT STANDARD SKULL BASE TO MID-THIGH from 04/29/[address] CHEST/ABD/PEL W from 05/30/[address] CHEST/ABD/PEL W from 01/03/[address] CHEST/ABD/PEL W from 02/14/[address] CHEST/ABD/PEL W from 05/28/[address] CHEST PE ABD PELVIS W from 06/29/2024 FINDINGS: Lung bases: Bilateral ground-glass opacities are visible. Liver: Unremarkable. Pancreas: There is a multiloculated cystic lesion noted in the body of the pancreas measuring collec tively 2 cm. There is a 8 millimeter cyst in the tail. There is no evidence of associated enhanceme nt. Choroid viewing previous images this was present on a chest CT from 2018 in appears unchanged. It was not PET avid on the previous PET scan from 2023. Gallbladder and Bile Ducts: Unremarkable. Adrenals: Unremarkable. No evidence of adrenal mass or nodularity. Kidneys: Unremarkable. Spleen: Unremarkable. Aorta: Unremarkable. Soft Tissues: Unremarkable. Bone: Unremarkable. Lymph Nodes: Unremarkable. Stomach and bowel: Unremarkable. Peritoneal cavity: Unremarkable. No evidence of ascites. IMPRESSION: Pancreatic lesion appears to represent a conglomeration of cysts without associated enhancement. Thi s appears stable from 2019. An additional 8 millimeter cyst is present in the tail. No adrenal abnormality is identified. DATA REPOSITORY:
--- NOTE | 2024-07-03 | DI.US_ITS ---
Exam(s) US LOWER EXTREMITY VENOUS LT EXAM: US LOWER EXTREMITY VENOUS LT CLINICAL HISTORY: RUL LUNG CANCER C34.11 BRAIN CA C79.31 LOWER EXT EDEMA R60.0 LEFT LE PAIN. TECHNIQUE: Lower extremity venous ultrasound performed using grayscale, color-flow, and spectral Do ppler analysis. COMPARISON: No exams were available for comparison FINDINGS: The common femoral, femoral and popliteal veins demonstrate normal compressibility, augmentation, and color Doppler. The posterior tibial and peroneal veins are patent. No saphenous vein thrombosis or other superficial venous thrombosis is seen. No hematoma or Kevin's cyst is seen. IMPRESSION: Negative lower extremity ultrasound. No evidence of DVT. DATA REPOSITORY:
[2024-07-03] MEDS: Gadoterate meglumine 20 ML VIAL IVP (13:14)
--- NOTE | 2024-07-03 13:50 | DI.MRI_ITS ---
Exam(s) MR BRAIN WO/W EXAM: MR BRAIN WO/W CLINICAL HISTORY: Metastatic lung CA, RUL, C34.11; lt parietal mets to brain, C79.31;. TECHNIQUE: Multiplanar multisequence MRI of the brain was performed. CONTRAST MATERIAL: IV Contrast: 20 ML of Dotarem contrast administered. COMPARISON: MR MR BRAIN WO/W from 02/15/2024 MR MR BRAIN WO/W from 04/25/2024 FINDINGS: VENTRICLES AND EXTRA AXIAL SPACES: Normal in size and morphology for the patient's age. HEMORRHAGE: None. CEREBRAL PARENCHYMA: Small focus of high T2 signal is noted at the high left parietal region with ass ociated enhancement this appears stable. No new abnormalities are identified. No focus of restricte d diffusion to suggest acute infarct. Mild atrophy. Scattered high signal white matter foci consiste nt with microvascular changes. BRAINSTEM/CEREBELLUM: Normal. CALVARIUM: Normal. VISUALIZED PARANASAL SINUSES: Mucous retention cysts are noted in the floors of the maxillary sinuses . Mild ethmoid and left frontal sinus mucosal thickening. MASTOIDS: Bilateral mastoid effusions are again noted. Orbits: Unremarkable. Pituitary: Not enlarged. Vasculature: Normal flow voids. IMPRESSION: Stable small enhancing lesion at the high left parietal region. No new lesions. Stable appearance of bilateral mastoid effusions and sinus mucous retention cysts. DATA REPOSITORY:
== END 2024-07-03 00:33 ==
LOC: DI 00:14
PROVIDERS: PCP Physician Assistant Medical; Visit Provider Internal Medicine Medical Oncology
DX: C34.11 Malignant neoplasm of upper lobe, right bronchus or lung (principal); C79.31 Secondary malignant neoplasm of brain; C79.71 Secondary malignant neoplasm of right adrenal gland; K86.2 Cyst of pancreas
CPT/HCPCS: 70553; 74183; 93971

== ENCOUNTER 2024-07-12 00:09 | Outpatient (CLI) | payer BC, SELFPAY ==
--- NOTE | 2024-07-12 | DI.NM_ITS ---
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 Cardiac Medications: Advair, folic acid, ipratropium-albuterol, loratidine, magneisum oxide, prochlor perazine, propranolol, fluconazole, furosemide, levothyroxine, mecliizine, omeprazole, prednisone Allergies: Aspirin, penicillins Cardiac Risk Factors: Family hx, former smoker Exercise History: Sedentary Physical Disabilities: None Lung Sounds: L throughout diminished Heart Sounds: Regular Stress Test Details Test: Pharmacologic stress was paired with low level exercise. Reason for pharmacologic stress test: physical limitation. Nuclear Acquisition: Rest Tc-99m/Stress Tc-99m 1 day Rest Isotope: Tc-99m Sestamibi. Dose: 12.0 Date: 07/12/2024 Injection Time: 0845 Stress Isotope: Tc-99m Sestamibi. Dose: 36.0 Date: 07/12/2024 Injection Time: 1016 HR Resting HR Supine: 75 bpm Max Heart Rate (APMHR): 155 bpm Resting HR Standin bpm Target HR (85% APMHR): 132 bpm Max HR Achieved: 111 bpm % of APMHR: 72 Recovery HR: 94 bpm BP Resting BP Supine: 124/80 mmHg Resting BP Standin/78 mmHg Max BP: 148/80 mmHg Recovery BP: 132/74 mmHg ECG Resting ECG: Sinus Rhythm Ectopy: None Stress ECG: Sinus Tachycardia ST Change: Nondiagnostic low heart rate Arrhythmia: None Recovery ECG: Sinus Rhythm Recovery ST Change: Nondiagnostic low heart rate Clinical Stress Symptoms: Mod SOB Angina Score: None Rate Pressure Product: [id number] Stress ECG Conclusion 1. The resting electrocardiogram showed low voltage 2. Patient underwent testing using pharmacologic stress with regadenoson 3. Peak heart rate achieved was 72% of maximal predicted for age 4. The electrocardiographic portion of the test was nondiagnostic 5. See MPI report Stress Test Summary STAGE HR BP SpO2 Symptoms NOTES Supine 75 124/80 97% Standing 90 118/78 1 min post Lexiscan injection 94 148/80 95% Mod SOB 3 min post Lexiscan injection 100 138/72 99% 6 min post Lexiscan injection 94 132/74 98% All symptoms resolved MPI Conclusion Myocardial perfusion is normal. There is no ischemia or evidence of prior infarction Ejection fraction is 77% with normal wall motion
[2024-07-12] MEDS: Regadenoson 0.4 MG/5 ML SYR IVP (10:27)
== END 2024-07-12 00:29 ==
PROVIDERS: PCP Physician Assistant Medical; Visit Provider Internal Medicine Cardiovascular Disease
DX: R06.09 Other forms of dyspnea (principal)
CPT/HCPCS: 78452; 93017; J2785

== ENCOUNTER 2024-07-23 04:15 | Outpatient (CLI) | payer BC, SELFPAY ==
[2024-07-23 09:48] LABS: Abs Immature Grans 0.12 10^3/uL (0.0-0.06); Absolute Basophil Count 0.03 10^3/uL (0.0-0.2); Absolute Eosinophil Count 0.18 10^3/uL (0.0-0.7); Absolute Lymphocyte Count 0.49 10^3/uL (1.2-3.4); Absolute Monocyte Count 0.54 10^3/uL (0.1-0.8); Absolute Neutrophil Count 8.01 10^3/uL (1.2-6.7); Basophils % 0.3 %; Eosinophils % 1.9 %; HCT 38.6 % (40.0-50.0); Immature Grans % 1.3 %; Lymphocytes % 5.2 %; MCH 32.8 pg (27.0-33.0); MCHC 33.7 % (32.0-36.0); MCV 98 fL (80-95); MPV 8.6 fL (8.0-11.0); Monocytes % 5.8 %; Neutrophils % 85.5 %; Platelet Count 224 10^3/uL (130-400); RBC 3.96 10^6/uL (4.36-5.78); RDW 14.5 % (11.8-14.1); RDW-SD 52.5 fL; WBC 9.37 10^3/uL (4.4-10.8)
[2024-07-23 10:13] LABS: ALT 21 U/L (16-63); AST 24 U/L (15-37); Albumin 3.4 g/dL (3.4-5.0); Alkaline Phosphatase 74 U/L (46-116); Anion Gap 8.1 mmol/L (3-11); BUN 13 mg/dL (7-18); Bilirubin, Total 0.5 mg/dL (0.2-1.0); CO2 29.9 mmol/L (21.0-32.0); CREATININE 1.4 mg/dL (0.70-1.30); Calcium 9.6 mg/dL (8.5-10.1); Chloride 104 mmol/L (98-107); Estimated GFR 55.78 (mL/min/1.73m2); FREE T4 1.06 ng/dL (0.76-1.46); Glucose 119 mg/dL (74-106); Magnesium 1.9 mg/dL (1.8-2.4); Sodium 142 mmol/L (136-145); TSH 3.08 uIU/mL (0.36-3.74); Total Protein 7.6 g/dL (6.4-8.2)
== END 2024-07-23 04:16 | disposition home or self-care (01) ==
PROVIDERS: PCP Physician Assistant Medical; Visit Provider Nurse Practitioner Family
DX: Z79.899 Other long term (current) drug therapy (principal); C34.11 Malignant neoplasm of upper lobe, right bronchus or lung
CPT/HCPCS: 36415; 80053; 83735; 84439; 84443; 85025

== ENCOUNTER 2024-08-13 02:26 | Outpatient (CLI) | payer BC, SELFPAY ==
[2024-08-13 10:14] LABS: Abs Immature Grans 0.15 10^3/uL (0.0-0.06); Absolute Basophil Count 0.02 10^3/uL (0.0-0.2); Absolute Eosinophil Count 0.08 10^3/uL (0.0-0.7); Absolute Lymphocyte Count 0.47 10^3/uL (1.2-3.4); Absolute Monocyte Count 0.65 10^3/uL (0.1-0.8); Absolute Neutrophil Count 7.23 10^3/uL (1.2-6.7); Basophils % 0.2 %; Eosinophils % 0.9 %; HCT 36.1 % (40.0-50.0); HGB 11.8 g/dL (13.5-17.5); Immature Grans % 1.7 %; Lymphocytes % 5.5 %; MCH 32.1 pg (27.0-33.0); MCHC 32.7 % (32.0-36.0); MCV 98 fL (80-95); MPV 8.5 fL (8.0-11.0); Monocytes % 7.6 %; Neutrophils % 84.1 %; Platelet Count 258 10^3/uL (130-400); RBC 3.68 10^6/uL (4.36-5.78); RDW 14.7 % (11.8-14.1); RDW-SD 53.6 fL
[2024-08-13 10:41] LABS: ALT 24 U/L (16-63); AST 29 U/L (15-37); Albumin 3.3 g/dL (3.4-5.0); Alkaline Phosphatase 72 U/L (46-116); Anion Gap 6.7 mmol/L (3-11); BUN 13 mg/dL (7-18); Bilirubin, Total 0.4 mg/dL (0.2-1.0); CO2 31.3 mmol/L (21.0-32.0); CREATININE 1.2 mg/dL (0.70-1.30); Calcium 9.1 mg/dL (8.5-10.1); Chloride 105 mmol/L (98-107); Estimated GFR 67.11 (mL/min/1.73m2); FREE T4 1.09 ng/dL (0.76-1.46); Glucose 96 mg/dL (74-106); Magnesium 1.9 mg/dL (1.8-2.4); Potassium 4.1 mmol/L (3.5-5.1); Sodium 143 mmol/L (136-145); TSH 2.82 uIU/mL (0.36-3.74); Total Protein 7.2 g/dL (6.4-8.2)
== END 2024-08-13 02:27 | disposition home or self-care (01) ==
LOC: LBO 02:26
PROVIDERS: PCP Physician Assistant Medical; Visit Provider Nurse Practitioner Family
DX: Z79.899 Other long term (current) drug therapy (principal); C34.11 Malignant neoplasm of upper lobe, right bronchus or lung
CPT/HCPCS: 36415; 80053; 83735; 84439; 84443; 85025

== ENCOUNTER 2024-09-03 02:03 | Outpatient (CLI) | payer BC, SELFPAY ==
[2024-09-03 12:53] LABS: Absolute Basophil Count 0.05 10^3/uL (0.0-0.2); Absolute Eosinophil Count 0.06 10^3/uL (0.0-0.7); Absolute Lymphocyte Count 0.57 10^3/uL (1.2-3.4); Absolute Monocyte Count 0.83 10^3/uL (0.1-0.8); Absolute Neutrophil Count 8.13 10^3/uL (1.2-6.7); Basophils % 0.5 %; Eosinophils % 0.6 %; HCT 37.3 % (40.0-50.0); HGB 12.5 g/dL (13.5-17.5); Lymphocytes % 5.7 %; MCH 32.1 pg (27.0-33.0); MCHC 33.5 % (32.0-36.0); MCV 96 fL (80-95); MPV 8.6 fL (8.0-11.0); Monocytes % 8.3 %; Neutrophils % 80.9 %; Platelet Count 336 10^3/uL (130-400); RDW 15.1 % (11.8-14.1); RDW-SD 52.5 fL; WBC 10.04 10^3/uL (4.4-10.8)
[2024-09-03 13:32] LABS: ALT 25 U/L (16-63); AST 23 U/L (15-37); Albumin 3.3 g/dL (3.4-5.0); Alkaline Phosphatase 77 U/L (46-116); Anion Gap 8.4 mmol/L (3-11); BUN 17 mg/dL (7-18); Bilirubin, Total 0.4 mg/dL (0.2-1.0); CO2 29.6 mmol/L (21.0-32.0); CREATININE 1.3 mg/dL (0.70-1.30); Calcium 9.7 mg/dL (8.5-10.1); Chloride 101 mmol/L (98-107); Estimated GFR 60.96 (mL/min/1.73m2); FREE T4 0.97 ng/dL (0.76-1.46); Glucose 107 mg/dL (74-106); Magnesium 1.9 mg/dL (1.8-2.4); Potassium 4.3 mmol/L (3.5-5.1); Sodium 139 mmol/L (136-145); TSH 2.19 uIU/mL (0.36-3.74); Total Protein 7.6 g/dL (6.4-8.2)
== END 2024-09-03 02:04 | disposition home or self-care (01) ==
LOC: LBO 02:03
PROVIDERS: PCP Physician Assistant Medical; Visit Provider Nurse Practitioner Family
DX: C34.11 Malignant neoplasm of upper lobe, right bronchus or lung (principal); Z79.899 Other long term (current) drug therapy
CPT/HCPCS: 36415; 80053; 83735; 84439; 84443; 85025

== ENCOUNTER 2024-09-24 01:36 | Outpatient (CLI) | payer BC, SELFPAY ==
[2024-09-24 13:23] LABS: Abs Immature Grans 0.30 10^3/uL (0.0-0.06); HCT 35.8 % (40.0-50.0); HGB 11.8 g/dL (13.5-17.5); Immature Grans % 3.1 %; MCH 31.6 pg (27.0-33.0); MCHC 33.0 % (32.0-36.0); MCV 96 fL (80-95); MPV 8.6 fL (8.0-11.0); Platelet Count 259 10^3/uL (130-400); RBC 3.74 10^6/uL (4.36-5.78); RDW 15.4 % (11.8-14.1); RDW-SD 54.0 fL; WBC 9.79 10^3/uL (4.4-10.8)
[2024-09-24 13:53] LABS: ALT 34 U/L (16-63); AST 28 U/L (15-37); Albumin 3.1 g/dL (3.4-5.0); Alkaline Phosphatase 83 U/L (46-116); Anion Gap 7.6 mmol/L (3-11); BUN 15 mg/dL (7-18); Bilirubin, Total 0.4 mg/dL (0.2-1.0); CO2 31.4 mmol/L (21.0-32.0); Calcium 9.5 mg/dL (8.5-10.1); Chloride 100 mmol/L (98-107); Estimated GFR 60.59 (mL/min/1.73m2); Glucose 95 mg/dL (74-106); Magnesium 1.9 mg/dL (1.8-2.4); Potassium 4.3 mmol/L (3.5-5.1); Sodium 139 mmol/L (136-145); TSH 2.17 uIU/mL (0.36-3.74); Total Protein 7.3 g/dL (6.4-8.2)
== END 2024-09-24 01:37 | disposition home or self-care (01) ==
LOC: LBO 01:36
PROVIDERS: PCP Physician Assistant Medical; Visit Provider Nurse Practitioner Family
DX: C34.11 Malignant neoplasm of upper lobe, right bronchus or lung (principal); Z79.899 Other long term (current) drug therapy
CPT/HCPCS: 36415; 80053; 83735; 84439; 84443; 85025

== ENCOUNTER 2024-10-01 02:29 | Outpatient (CLI) | payer BC, SELFPAY ==
--- NOTE | 2024-10-01 | DI.MRI_ITS ---
Exam(s) MR BRAIN WO/W EXAM: MR BRAIN WO/W CLINICAL HISTORY: NSCLC w/lt parietal metastasis s/p hfSRS completed 05/25/23,assess treatment. TECHNIQUE: Multiplanar multisequence MRI of the brain was performed. CONTRAST MATERIAL: IV Contrast: 20 ML of Dotarem contrast administered. COMPARISON: MR MR BRAIN WO/W from 07/03/2024 FINDINGS: VENTRICLES AND EXTRA AXIAL SPACES: Normal in size and morphology for the patient's age. HEMORRHAGE: None. CEREBRAL PARENCHYMA: No change in small area of high signal with enhancement in a superomedial left anterior parietal gyrus. No new abnormalities are identified. No focus of restricted diffusion to suggest acute infarct. Mild atrophy and scattered high signal foci in the white matter consistent with small vessel changes appear stable. BRAINSTEM/CEREBELLUM: Normal. CALVARIUM: Normal. ENHANCEMENT: No suspicious enhancement identified. VISUALIZED PARANASAL SINUSES/MASTOIDS: Fluid again noted in mastoid air cells. Sinuses show mucous retention in the maxillary sinuses and ethmoid mucosal thickening. Orbits: Unremarkable. Pituitary: Not enlarged. Vasculature: Normal flow voids. IMPRESSION: Stable small enhancing lesion in the high left anterior parietal region region. No new metastatic lesions. DATA REPOSITORY:
[2024-10-01] MEDS: Gadoterate meglumine 20 ML SYRINGE IVP (13:59)
[2024-10-01] MEDS: Normal Saline Flush 10 ML SYR IVP (14:00)
== END 2024-10-01 02:49 ==
LOC: DI 02:29
PROVIDERS: PCP Physician Assistant Medical; Visit Provider Physician Assistant
DX: C79.31 Secondary malignant neoplasm of brain (principal)
CPT/HCPCS: 70553

== ENCOUNTER 2024-10-16 03:27 | Outpatient (CLI) | payer BC, SELFPAY ==
[2024-10-16 07:39] LABS: Abs Immature Grans 0.20 10^3/uL (0.0-0.06); HCT 35.0 % (40.0-50.0); HGB 11.6 g/dL (13.5-17.5); Immature Grans % 2.3 %; MCH 32.0 pg (27.0-33.0); MCHC 33.1 % (32.0-36.0); MCV 97 fL (80-95); MPV 8.5 fL (8.0-11.0); Platelet Count 304 10^3/uL (130-400); RBC 3.62 10^6/uL (4.36-5.78); RDW 14.8 % (11.8-14.1); RDW-SD 52.0 fL; WBC 8.66 10^3/uL (4.4-10.8)
[2024-10-16 08:04] LABS: ALT 19 U/L (16-63); AST 23 U/L (15-37); Albumin 3.1 g/dL (3.4-5.0); Alkaline Phosphatase 75 U/L (46-116); Anion Gap 4.8 mmol/L (3-11); BUN 15 mg/dL (7-18); Bilirubin, Total 0.5 mg/dL (0.2-1.0); CO2 32.2 mmol/L (21.0-32.0); Calcium 9.3 mg/dL (8.5-10.1); Chloride 101 mmol/L (98-107); Estimated GFR 55.43 (mL/min/1.73m2); Glucose 120 mg/dL (74-106); Magnesium 2.0 mg/dL (1.8-2.4); Potassium 3.8 mmol/L (3.5-5.1); Sodium 138 mmol/L (136-145); TSH 4.00 uIU/mL (0.36-3.74); Total Protein 7.5 g/dL (6.4-8.2)
== END 2024-10-16 03:28 | disposition home or self-care (01) ==
LOC: LBO 03:27
PROVIDERS: PCP Physician Assistant Medical; Visit Provider Nurse Practitioner Family
DX: C34.11 Malignant neoplasm of upper lobe, right bronchus or lung (principal); Z79.899 Other long term (current) drug therapy
CPT/HCPCS: 36415; 80053; 83735; 84439; 84443; 85025

== ENCOUNTER 2024-10-24 16:58 | Outpatient (CLI) | payer BC, SELFPAY ==
--- NOTE | 2024-10-24 | DI.RAD_ITS ---
Exam(s) XR CHEST 2V PA LATERAL EXAM: XR CHEST 2V PA LATERAL CLINICAL HISTORY: COPD, J44.9; pneumonitis, J98.4; primary malignant neoplasm of RUL of lung,. TECHNIQUE: 2D digital imaging was performed. COMPARISON: CR XR CHEST 2V PA LATERAL from 03/26/[address] CHEST W from 08/29/2024 FINDINGS: 2 views: Heart size is normal. There is abnormal mass infiltrate in the right hilar region, not previously present on chest x-ray of 03/26/2021. This corresponds to findings on recent CT scan of 08/29/2024. there also appears to be a small possible nodule in the right lung base. In the left lung there is subtle patchy infiltrate located laterally, most probably corresponding to findings evident at this location on the recent CT scan of 08/29/2024. There are no pleural effusions. IMPRESSION: Right-sided infiltrate-mass, as also documented on recent CT scan of 08/29/2024 Subtle patchy infiltrate in the lateral left lung also evident and corresponding to finding at this location on the recent CT scan. There are no pleural effusions. DATA REPOSITORY: RADIATION DOSE DELIVERED:
== END 2024-10-24 17:18 ==
LOC: DI 16:59
PROVIDERS: PCP Physician Assistant Medical; Visit Provider Internal Medicine Critical Care Medicine
DX: J44.9 Chronic obstructive pulmonary disease, unspecified (principal); C34.11 Malignant neoplasm of upper lobe, right bronchus or lung; J98.4 Other disorders of lung
CPT/HCPCS: 71046

== ENCOUNTER 2024-10-25 10:37 | Emergency (ER) | payer BC, SELFPAY ==
--- NOTE | 2024-10-25 10:30 | RT.EKG_ITS ---
APPROVED REPORT Exam: Resting ECG Reason for Exam: dizziness chest pain Patient Location: E HR:86 bpm ECG Measurements Heart Rate 86 AXIS ND 180 P 57 QRSd 93 QRS 3 QT 357 T 48 QTc 428 Conclusion Sinus rhythm...normal P axis, V-rate 60- 99 Low voltage, precordial leads...precordial leads <1.0mV No Occlusion TX
[2024-10-25 10:38] VITALS: BP 114/77; PULSE 88; RESP 20; TEMP 36.7; O2SAT 96
[2024-10-25 10:43] VITALS: BP 114/77; PULSE 88; RESP 20; TEMP 36.7; O2SAT 96
[2024-10-25 11:09] VITALS: RESP 16
--- NOTE | 2024-10-25 11:15 | ED.GENADUL_ITS ---
Discharge Plan Disposition Patient Disposition: Home Condition: Stable Discharge Details Clinical Impression: Pneumonitis Primary Care Provider: Anais Varma ED Provider: Konstantin Hauser Home Meds and New Rx's Prescriptions: New cefpodoxime 200 mg tablet 200 mg PO BID 5 Days Qty: 10 0RF Rx Instructions: must administer with a meal/food Continued levothyroxine 75 mcg capsule 75 mcg PO DAILY omeprazole 20 mg capsule,delayed release(DR/EC) 20 mg PO DAILY Trelegy Ellipta 100-62.5-25 mcg blister with device 1 inh inhalation DAILY loratadine 10 mg tablet 10 mg PO DAILY Patient Comments: TAKE ONE TABLET BY MOUTH EVERY DAY fluticasone propion-salmeterol [Advair HFA] 230-21 mcg/actuation HFA aerosol inhaler 2 inh INHALATION BID folic acid 1 mg tablet 1 mg PO DAILY Patient Comments: TAKE ONE TABLET BY MOUTH EVERY DAY prochlorperazine maleate 10 mg tablet 10 mg PO Q6H Patient Comments: TAKE ONE TABLET BY MOUTH EVERY 6 HOURS NEEDED FOR NAUSEA magnesium oxide 400 mg (241.3 mg magnesium) tablet 400 mg PO DAILY Patient Comments: TAKE ONE TABLET BY MOUTH EVERY DAY propranolol 20 mg tablet 20 mg PO BID Patient Comments: TAKE ONE TABLET BY MOUTH TWICE A DAY ipratropium-albuterol 0.5 mg-3 mg(2.5 mg base)/3 mL solution for nebulization 3 ml INHALATION TID PRN Patient Comments: INHALE THE CONTENTS OF ONE VIAL VIA NEBULIZER THREE TIMES A DAY Discharge Instructions Instructions: Cefpodoxime, Pneumonitis Additional Instructions: You were seen in the emergency department for your cough with some hypoxia with ambulation, you passed an ambulatory trial here in the emergency department, you are on doxycycline per 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 I am adding cefpodoxime due to your complex history. Please follow-up with a CT chest with contrast for further definitive imaging of your groundglass opacities, your right perihilar area of scarring does not appear to be changed from your last imaging in June. Please talk to your floatlight loading supervisor and regular doctor about getting possible as needed home oxygen. Please take Tylenol and Motrin as tolerated, use your at home breathing treatments, return for any emergent concerns including respiratory distress, chest pain, dizziness, near fainting. Referrals: Anais Varma PA [Primary Care Provider, Medicine] Discharge Data Discharge Date/Time-TO BE ENTERED AT DEPARTURE: 10/25/24 15:09 HPI General Date/Time Provider Initiated Documentation: 10/25/24 10:47 . HPI Narrative: 64 year-old male presents to ED today by POV/ambulating with a chief complaint of shortness of breath- sent here by floatlight loading supervisor for hypoxia with ambulation into low 80s, with known CA with onset insidiously. Quality described as chest pressure, dizziness with ambulation, states he feels fine at rest, no radiation to fever, syncope, falls, headstrike, diaphoresis. Severity is described as moderate for dizziness with ambulation. Palliating factors include nothing specific- has breathing treatments at home. Provoking factors include nothing specific. Patient not anticoagulated. Related Data Home Medications ?Medication ?Instructions ?Recorded ?Confirmed fluticasone propionate 230 2 inh inhalation BID 10/25/24 mcg-salmeterol 21 mcg/actuation HFA inhaler (Advair HFA) folic acid 1 mg tablet 1 mg PO DAILY 07/29/2310/25 prochlorperazine maleate 10 mg 10 mg PO Q6H 07/29/23 0 10/25/24 tablet loratadine 10 mg tablet 10 mg PO DAILY 12/18/2310/06 ipratropium 0.5 mg-albuterol 3 mg 3 ml inhalation TID PRN 06/29/24 10/25/24 (2.5 mg base)/3 mL nebulization soln magnesium oxide 400 mg (241.3 mg 400 mg PO DAILY 06/2910/25/24 magnesium) tablet propranolol 20 mg tablet 20 mg PO BID 06/29/24 fluticasone fur. 100 mcg-umeclid 1 inh inhalation JUNIOR Y 08/20/24 10/25/24 62.5 mcg-vilant 25 mcg inhalat.powder (Trelegy Ellipta) levothyroxine 75 mcg capsule 75 mcg PO DAILY 08/20/24 10/25/24 omeprazole 20 mg capsule,delayed 20 mg PO DAILY 10/25/24 release cefpodoxime 200 mg tablet 200 mg PO BID 5 days #10 tab s 10/25/24 Previous Rx's ?Medication ?Instructions ?Recorded cefpodoxime 200 mg tablet 200 mg PO BID 5 days #10 tab s 10/25/24 Allergies Allergy/AdvReac Type Severity Reaction Status Date / Time aspirin Allergy Severe Anaphylaxis Verified 10/25/24 10:44 Penicillins AdvReac Intermediate makes me Verified 10/25/24 10:44 kind of crazy General Stated Complaint: SOB MK: 3 Review of Systems All systems reviewed & are unremarkable except as noted in HPI and below Exam Narrative Exam Narrative: GENERAL APPEARANCE: Well-nourished, non-toxic, awake and alert, atraumatic, no acute distress. SKIN: Warm, pink, dry, intact, without rashes/lesions/ulcerations. HEAD: Normocephalic, atraumatic, normal hair distribution for gender/age. EYES: Normal conjunctiva, no exudates on lids/lashes. ENT: Nares patent, no circumoral cyanosis, no facial swelling NECK: Supple, trachea midline, painless cervical ROM. LUNGS/CHEST: Lungs coarsely adventitious diffusely, labored respirations, normal A/P diameter, symmetrical expansion, no chest wall deformity HEART (CV/PV): Regular rate and rhythm without murmur, no peripheral edema, no JVD. ABDOMEN: Soft, non-distended, no guarding. MSK: Normal ROM, no swelling/deformity to bilateral UEs or LEs, moving all extremities without weakness, no cyanosis, spine midline without tenderness, normal curvature. NEURO: Mental Status AAOx4 - alert to person, place, time, events No facial droop, no forehead involvement. Motor: No focal weakness - strength 5/5 in bilateral UEs and LEs, proximal and distal, symmetric. Sensory: sensation intact to light touch globally. Gait normal: patient ambulated without ataxia into ED room. PSYCH: euthymic, cooperative, pleasant, appropriate speech Course Vital Signs Vital signs: Vital Signs Temperature 36.7 C 10/25/24 10:38 Pulse 88 10/25/24 10:38 Respiratory Rate 20 10/25/24 10:38 Blood Pressure 114/77 10/25/24 10:38 Pulse Oximetry 96 10/25/24 10:38 Temperature 36.7 C 10/25/24 10:43 Temperature Source Oral 10/25/24 10:43 Pulse 88 10/25/24 10:43 Respiratory Rate 16 10/25/24 11:09 Respiratory Effort Normal, Non-Labored 10/25/24 11:09 Respiratory Depth Normal 10/25/24 11:09 Respiratory Pattern Normal 10/25/24 11:09 Blood Pressure 114/77 10/25/24 10:43 Blood Pressure Position Sitting 10/25/24 10:43 Pulse Oximetry 96 10/25/24 10:43 Oxygen Delivery Method Room Air 10/25/24 10:43 Oxygen Flow Rate 0 10/25/24 10:43 Pain Level 0 10/25/24 10:43 Medical Decision Making This dictation utilizes [id number] dictation software and may contain unedited grammatical errors. 64 year-old male presents to ED today by POV/ambulating with a chief complaint of shortness of breath- sent here by floatlight loading supervisor for hypoxia with ambulation into low 80s, with known CA with onset insidiously. Quality described as chest pressure, dizziness with ambulation, states he feels fine at rest, no radiation to fever, syncope, falls, headstrike, diaphoresis. Severity is described as moderate for dizziness with ambulation. Palliating factors include nothing specific- has breathing treatments at home. Provoking factors include nothing specific. Patients' medical history: Lung nodule, lung cancer, malignant brain tumor, COPD, renal insufficiency. Family and social history: Former smoker, lives at home with family. Pertinent exam findings / vital signs include coarsely adventitious lung sounds, hypoxic on arrival but passed ambulatory trial, has been 96% at rest, benign abdomen, neuro intact, nontoxic and afebrile. Differential / pathologies of concern include pneumonia, pulmonary embolism, de nitesh ischemia, pancreatitis, viral syndrome, sepsis, fatigue, debility. Diagnostic studies of: -CBC, CMP, lactate, D-dimer, serial troponins, BNP, lipase, COVID/flu/RSV PCR, EKG, CTA chest PE study. - CTA shows bilateral upper and lower lobe groundglass opacities which are new from prior exam consistent with pneumonitis, there is a stable appearance of his right perihilar mass - CBC shows leukopenia which is chronic, mild anemia which has been chronic - CMP without actionable abnormality - Serial troponins negative - BNP negative - Lipase negative - COVID flu and RSV negative - Lactate negative - D-dimer is 1300 - EKG shows sinus rhythm at 86 bpm with normal axis, P waves followed by narrow complex QRS without ST changes of ischemia, normal intervals Interventions of: -250 mL saline. ED Course/Assessment/Plan: 64-year-old male has been having transient ambulatory hypoxia in the setting of known lung cancer, brain mass, has a mild cough, CTA of the chest was performed due to elevated D-dimer which shows a pneumonitis, treating with antibiotics-he is on doxycycline from his floatlight loading supervisor I am adding cefpodoxime to cover other bacteria's, counseled him on strict return criteria for any further shortness of breath specially chest pain, sweating or dizziness or near fainting, follow-up with his floatlight loading supervisor. Patient passed ambulatory trial remaining at 95% SpO2 ambulating around the department. Findings not consistent with sepsis, PE, ACS, persistent hypoxia. Disposition of Pneumonitis. Patient verbalized understanding of the plan and return to ED criteria and eng aged in shared decision making. Medical Records Medical records reviewed: Yes I reviewed the patient's medical records. Imaging Data Radiologic Study: Attestation: I personally reviewed and interpreted this imaging study as follows: Imaging: CT Scan Radiologist's impression: EXAM: CT CHEST PE CTA CLINICAL HISTORY: shortness of breath. TECHNIQUE: Imaging Protocol: Axial CT angiography was performed with multi- slice acquisition and multi-planar reconstructions as well as axial, coronal and sagittal MIP reconstructions. Computer aided detection (CAD) was utilized. CONTRAST MATERIAL: Intravenous: Omnipaque 350 Contrast volume:100 ml COMPARISON: CT CT CHEST W from 08/29/2024 CR XR CHEST 2V PA LATERAL from 10/24/2024 FINDINGS: Pulmonary Arteries: The pulmonary arteries are well opacified with IV contrast. No evidence of filling defect to suggest pulmonary emboli. No significant narrowing of the arteries in the right perihilar region. Mediastinum and Amaris: Stable right perihilar densities. Tiny hiatal hernia. Pulmonary parenchyma: Stable right perihilar mass/scarring. New multifocal areas of ground-glass opacity in both upper and lower lobes when compared with the previous exam Pleura: Posterior right pleural thickening again noted. No pneumothorax. Heart: The heart is not dilated. Mild coronary artery calcifications are seen. Trace anterior pericardial effusion versus pericardial thickening which appear stable. Aorta: Thoracic aorta non-dilated. No dissection. Mild atherosclerotic changes. Upper abdomen: No acute findings. Bones: Unremarkable for age. Tubes, Catheters, and Lines: None Soft tissues: Mild bilateral gynecomastia. IMPRESSION: No evidence of pulmonary embolism. Bilateral upper and lower lobe ground-glass opacities which are new from the prior exam consistent with pneumonitis. Stable appearance of right perihilar mass/scarring, the patient has a known history of lung CA. Lab Data Lab results reviewed: Yes I reviewed the patient's lab results. Labs: Laboratory Tests Range/Units 10/25/24 10/25/24 11:07 12:12 WBC (4.4-10.8) 10^3/uL 2.41 L RBC (4.36-5.78) 10^6/uL 3.19 L Hgb (13.5-17.5) g/dL 10.3 L Hct (40.0-50.0) % 29.7 L MCV (80-95) fL 93 MCH (27.0-33.0) pg 32.3 MCHC (32.0-36.0) % 34.7 RDW (11.8-14.1) % 13.5 Plt Count (130-400) 10^3/uL 172 MPV (8.0-11.0) fL 9.0 Immature Gran % % 3.3 Neutrophils % % 60.2 Lymphocytes % % 8.7 Monocytes % % 25.7 Eosinophils % % 1.7 Basophils % % 0.4 Nucleated RBC % (0.0-0.3) % 0.0 Absolute Neutrophils (1.2-6.7) 10^3/uL 1.45 Absolute Lymphocytes (1.2-3.4) 10^3/uL 0.21 L Absolute Monocytes (0.1-0.8) 10^3/uL 0.62 Absolute Eosinophils (0.0-0.7) 10^3/uL 0.04 Absolute Basophils (0.0-0.2) 10^3/uL 0.01 D-Dimer (<500) ng/mlFEU 1359 H VBG Lactate (<or=2.0) mmol/L 1.1 Sodium (136-145) mmol/L 137 Potassium (3.5-5.1) mmol/L 3.6 Chloride (98-107) mmol/L 99 Carbon Dioxide (21.0-32.0) mmol/L 30.0 Anion Gap (3-11) mmol/L 8.0 BUN (7-18) mg/dL 12 Creatinine (0.70-1.30) mg/dL 1.3 Est GFR (CKD-EPI 2020) (mL/min/1.73m2) 60.59 Glucose (74-106) mg/dL 119 H Calcium (8.5-10.1) mg/dL 9.7 Magnesium (1.8-2.4) mg/dL 2.0 Total Bilirubin (0.2-1.0) mg/dL 0.7 AST (15-37) U/L 25 ALT (16-63) U/L 18 Alkaline Phosphatase (46-116) U/L 72 Troponin I (<or=76) ng/L 7 6 NT-Pro-B Natriuret Pep (<300) pg/mL 79 Total Protein (6.4-8.2) g/dL 7.9 Albumin (3.4-5.0) g/dL 3.1 L Lipase (<78) U/L 35 COVID-19 Source Nasopharynx SARS-CoV-2 (PCR) (Negative) Negative Influenza Type A (PCR) (Negative) Negative Influenza Type B (PCR) (Negative) Negative RSV (PCR) (Negative) Negative PFSH All Active Problems (Updated 10/25/24 @ 14:51 by SUNG Avila) Pneumonitis (Acute) 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 (Acute) Impacted cerumen of left ear (Acute) Transient alteration of awareness (Acute) Low back pain (Acute) Disorder of kidney and ureter (Acute) Malignant brain tumor (Chronic) Leg swelling (Acute) COPD (chronic obstructive pulmonary disease) (Chronic) Chronic low back pain (Chronic) Dyspnea (Acute) Renal insufficiency, mild (Acute) CAP (community acquired pneumonia) (Acute) Medical History (Updated 10/25/24 @ 14:51 by SUNG Avila) Family history of malignant neoplasm of prostate Elevated blood pressure reading in office with diagnosis of hypertension Lung nodule Xerosis of skin Lung cancer Family History (Updated 10/11/24 @ 08:54 by Lou Smith) Mother , 70s No problems noted. Father , 80s alzheimers Prostate cancer CAD (coronary artery disease) Dementia Paternal Grandmother CAD (coronary artery disease) Social History (Updated 03/31/23 @ 11:57 by Yvonne Segal RN, RN) Smoking/Tobacco Use Status: Current every day Tobacco Type: smokeless tobacco Smoking risk assessment performed?: Yes Alcohol Intake: current Alcohol Intake frequency: holidays/special occasions only Alcohol type: hard liquor Drug use: Never Substance use type: does not use Household members: spouse Housing: house Number of Children: 3 number of grandchildren: 1 What is your relationship status?: Panel score (0-1 are the most socially isolated patients): 1 Do you feel safe at home: Yes Do you feel safe in your relationship?: Yes PAWSS Have you Been Recently Intoxicated or Drunk Within the Last 30 days?: No Have you Ever Experienced Previous Episodes of Alcohol Withdrawal?: No Have you ever Experienced Withdrawal Seizures?: No Have you ever Experienced Delirium Tremens(DT)s?: No Have you ever undergone Alcohol Rehabilitation Treatment (i.e, inpt ot outpatient treatment programs)?: No Have you ever Experienced Blackouts?: No Have you ever Combined Alcohol with other Downers within the last 90 days?: No Have you ever Combined Alcohol with any other Substance of Abuse during the last 90 days?: No Result: 0
[2024-10-25 11:19] LABS: Abs Immature Grans 0.08 10^3/uL (0.0-0.06); HCT 29.7 % (40.0-50.0); HGB 10.3 g/dL (13.5-17.5); Immature Grans % 3.3 %; MCH 32.3 pg (27.0-33.0); MCHC 34.7 % (32.0-36.0); MCV 93 fL (80-95); MPV 9.0 fL (8.0-11.0); Platelet Count 172 10^3/uL (130-400); RBC 3.19 10^6/uL (4.36-5.78); RDW 13.5 % (11.8-14.1); RDW-SD 45.3 fL; WBC 2.41 10^3/uL (4.4-10.8)
[2024-10-25 11:57] LABS: COVID-19 PCR Negative (Negative); RSV PCR Negative (Negative)
[2024-10-25 12:00] LABS: ALT 18 U/L (16-63); AST 25 U/L (15-37); Albumin 3.1 g/dL (3.4-5.0); Alkaline Phosphatase 72 U/L (46-116); Anion Gap 8.0 mmol/L (3-11); BUN 12 mg/dL (7-18); Bilirubin, Total 0.7 mg/dL (0.2-1.0); CO2 30.0 mmol/L (21.0-32.0); Calcium 9.7 mg/dL (8.5-10.1); Chloride 99 mmol/L (98-107); Estimated GFR 60.59 (mL/min/1.73m2); Glucose 119 mg/dL (74-106); Lipase 35 U/L (<78); Magnesium 2.0 mg/dL (1.8-2.4); NT-proBNP 79 pg/mL (<300); Potassium 3.6 mmol/L (3.5-5.1); Sodium 137 mmol/L (136-145); Total Protein 7.9 g/dL (6.4-8.2); Troponin I 7 ng/L (<or=76)
[2024-10-25 12:09] LABS: D-Dimer 1359 ng/mlFEU (<500)
--- NOTE | 2024-10-25 12:45 | DI.CT_ITS ---
Exam(s) CT CHEST PE CTA EXAM: CT CHEST PE CTA CLINICAL HISTORY: shortness of breath. TECHNIQUE: Imaging Protocol: Axial CT angiography was performed with multi- slice acquisition and multi-planar reconstructions as well as axial, coronal and sagittal MIP reconstructions. Computer aided detection (CAD) was utilized. CONTRAST MATERIAL: Intravenous: Omnipaque 350 Contrast volume:100 ml COMPARISON: CT CT CHEST W from 08/29/2024 CR XR CHEST 2V PA LATERAL from 10/24/2024 FINDINGS: Pulmonary Arteries: The pulmonary arteries are well opacified with IV contrast. No evidence of filling defect to suggest pulmonary emboli. No significant narrowing of the arteries in the right perihilar region. Mediastinum and Amaris: Stable right perihilar densities. Tiny hiatal hernia. Pulmonary parenchyma: Stable right perihilar mass/scarring. New multifocal areas of ground-glass opacity in both upper and lower lobes when compared with the previous exam Pleura: Posterior right pleural thickening again noted. No pneumothorax. Heart: The heart is not dilated. Mild coronary artery calcifications are seen. Trace anterior pericardial effusion versus pericardial thickening which appear stable. Aorta: Thoracic aorta non-dilated. No dissection. Mild atherosclerotic changes. Upper abdomen: No acute findings. Bones: Unremarkable for age. Tubes, Catheters, and Lines: None Soft tissues: Mild bilateral gynecomastia. IMPRESSION: No evidence of pulmonary embolism. Bilateral upper and lower lobe ground-glass opacities which are new from the prior exam consistent with pneumonitis. Stable appearance of right perihilar mass/scarring, the patient has a known history of lung CA. RADIATION DOSE DELIVERED: Total DLP DATA REPOSITORY: All CT scans at this facility are submitted to the National Radiology Data Registry (NRDR) Dose Index Registry (DIR) with the [employer] (ACR). RADIATION OPTIMIZATION: All CT scans at this facility use at least one of these dose optimization techniques: automated exposure control; mA and/or kV adjustment per patient size (includes targeted exams where dose is matched to clinical indication); or iterative reconstruction.
[2024-10-25 13:07] LABS: Troponin I 6 ng/L (<or=76)
[2024-10-25] MEDS: Normal Saline - Diluent 50 ML VIAL IJ (13:32)
[2024-10-25] MEDS: Omnipaque 350 MG/ML 100 ML BTL IJ (13:32)
[2024-10-25] MEDS: Normal Saline Flush 10 ML SYR IVP (13:33)
[2024-10-25 15:08] VITALS: BP 126/80; PULSE 88; RESP 18; TEMP 37; O2SAT 97
== END 2024-10-25 15:09 | disposition home or self-care (01) ==
PROVIDERS: Emergency Provider Physician Assistant; PCP Physician Assistant Medical
DX: J98.4 Other disorders of lung (principal); Z72.0 Tobacco use; R42 Dizziness and giddiness
CPT/HCPCS: 99284; 99285; 36415; 71275; 80053; 83690; 87637; 93005; 83605; 83735; 83880; 84484; 85025; 85379; 93010; J3490

== ENCOUNTER 2024-11-06 16:01 | Outpatient (CLI) | payer BC, SELFPAY ==
[2024-11-06 14:15] LABS: Abs Immature Grans 0.61 10^3/uL (0.0-0.06); HCT 35.4 % (40.0-50.0); HGB 11.8 g/dL (13.5-17.5); MCH 32.5 pg (27.0-33.0); MCHC 33.3 % (32.0-36.0); MCV 98 fL (80-95); MPV 8.5 fL (8.0-11.0); Platelet Count 350 10^3/uL (130-400); RBC 3.63 10^6/uL (4.36-5.78); RDW 15.2 % (11.8-14.1); RDW-SD 53.4 fL; WBC 12.25 10^3/uL (4.4-10.8)
[2024-11-06 14:50] LABS: ALT 24 U/L (16-63); AST 26 U/L (15-37); Albumin 3.1 g/dL (3.4-5.0); Alkaline Phosphatase 73 U/L (46-116); Anion Gap 8.0 mmol/L (3-11); BUN 27 mg/dL (7-18); Bilirubin, Total 0.3 mg/dL (0.2-1.0); CO2 29.0 mmol/L (21.0-32.0); Calcium 9.4 mg/dL (8.5-10.1); Chloride 102 mmol/L (98-107); Estimated GFR 55.43 (mL/min/1.73m2); Glucose 133 mg/dL (74-106); Magnesium 1.9 mg/dL (1.8-2.4); Potassium 4.2 mmol/L (3.5-5.1); Sodium 139 mmol/L (136-145); TSH 1.12 uIU/mL (0.36-3.74); Total Protein 7.6 g/dL (6.4-8.2)
[2024-11-06 15:09] LABS: Immature Grans % 0.0 %
[2024-11-06 15:10] LABS: RBC Morphology Normal
== END 2024-11-06 16:02 | disposition home or self-care (01) ==
LOC: LBO 16:01
PROVIDERS: PCP Physician Assistant Medical; Visit Provider Nurse Practitioner Family
DX: C34.11 Malignant neoplasm of upper lobe, right bronchus or lung (principal); Z79.899 Other long term (current) drug therapy
CPT/HCPCS: 36415; 80053; 83735; 84439; 84443; 85025

== ENCOUNTER 2024-11-27 00:46 | Outpatient (CLI) | payer BC, SELFPAY ==
[2024-11-27 08:47] LABS: Abs Immature Grans 0.48 10^3/uL (0.0-0.06); HCT 36.0 % (40.0-50.0); HGB 11.8 g/dL (13.5-17.5); MCH 31.8 pg (27.0-33.0); MCHC 32.8 % (32.0-36.0); MCV 97 fL (80-95); MPV 8.5 fL (8.0-11.0); Platelet Count 244 10^3/uL (130-400); RBC 3.71 10^6/uL (4.36-5.78); RDW 15.6 % (11.8-14.1); RDW-SD 55.0 fL; WBC 9.24 10^3/uL (4.4-10.8)
[2024-11-27 10:00] LABS: Immature Grans % 0.0 %; RBC Morphology Normal
[2024-11-27 10:45] LABS: ALT 25 U/L (16-63); AST 23 U/L (15-37); Albumin 3.2 g/dL (3.4-5.0); Alkaline Phosphatase 68 U/L (46-116); Anion Gap 7.6 mmol/L (3-11); BUN 14 mg/dL (7-18); Bilirubin, Total 0.3 mg/dL (0.2-1.0); CO2 31.4 mmol/L (21.0-32.0); Calcium 9.7 mg/dL (8.5-10.1); Chloride 102 mmol/L (98-107); Estimated GFR 51.03 (mL/min/1.73m2); Glucose 105 mg/dL (74-106); Magnesium 1.8 mg/dL (1.8-2.4); Potassium 3.6 mmol/L (3.5-5.1); Sodium 141 mmol/L (136-145); TSH 4.22 uIU/mL (0.36-3.74); Total Protein 7.4 g/dL (6.4-8.2)
== END 2024-11-27 00:47 | disposition home or self-care (01) ==
LOC: LBO 00:47
PROVIDERS: PCP Physician Assistant Medical; Visit Provider Nurse Practitioner Family
DX: C34.11 Malignant neoplasm of upper lobe, right bronchus or lung (principal); Z79.899 Other long term (current) drug therapy
CPT/HCPCS: 36415; 80053; 83735; 84439; 84443; 85025

== ENCOUNTER 2024-12-13 04:17 | Outpatient (CLI) | payer BC, SELFPAY ==
--- NOTE | 2024-12-13 | DI.CT_ITS ---
Exam(s) CT CHEST/ABD/PEL W EXAM: CT CHEST/ABD/PEL W CLINICAL HISTORY: RUL LUNG CANCER C34.11 BRAIN CANCER C79.31 CANCER RT ADRENAL GLAND C79.71 TECHNIQUE: Imaging Protocol: Axial computed tomography images with coronal and sagittal reformatted images were created and reviewed. Lung Computer Aided Detection (CAD) was utilized. CONTRAST MATERIAL: Intravenous: Omnipaque 350 contrast volume:100 mL Oral: Yes COMPARISON: CT CT CHEST/ABD/PEL W from 05/28/[address] CHEST PE ABD PELVIS W from 06/29/[address] CHEST W from 08/29/[address] CHEST PE CTA from 10/25/2024 FINDINGS: CHEST: Tracheobronchial tree: Patent where visualized. No evidence of bronchiectasis. Pulmonary parenchyma: The left apical nodule is stable. The ground-glass opacities in the lungs have shown slight improvement compared to the prior examination. The right hilar opacity and bronchiectasis involving the right upper and right middle lobes are stable. There are no new infiltrates or nodules present. Visualized thyroid gland: Unremarkable. Mediastinum and Amaris: No dominant adenopathy or fluid collection. The esophagus is unremarkable. Pleura: No effusion or pneumothorax. Heart: The heart is not dilated. Mild coronary artery calcification is present. No pericardial effusion. Pulmonary arteries: No pulmonary emboli are identified. Aorta: Thoracic aorta non-dilated. There is no evidence of dissection. Atherosclerotic calcification is present. Lymph nodes: Within normal limits. Soft tissues: Bilateral gynecomastia. Bones:Within normal limits for the patient's age. ABDOMEN: Liver: Normal density. No measurable mass. Portal, Superior Mesenteric, and Splenic Veins: Unremarkable. Gallbladder and Biliary Tract: No radiodense calculus or dilation. Pancreas: Normal density, no abnormal calcifications or inflammatory process. The area of decreased attenuation in the anterior body of the pancreas is less prominent compared to the prior examinations. Spleen: Normal. Adrenals: No masses seen. There is stable calcification of the right adrenal gland. Kidneys: Normal size, contour and axis. No radiodense stones or obstructive uropathy. No masses seen. Abdominal Aorta: Abdominal portion non-dilated. Atherosclerotic calcification is present. Bowel: No obstruction or bowel wall thickening. There is a moderate amount of stool throughout the colon suggesting constipation. There is no bowel wall thickening or obstruction. There is a small hiatal hernia. There is a normal appendix. Peritoneal Cavity: No ascites, collection or mesenteric inflammatory response. No free air. Lymph Nodes: Within normal limits. Bones: Within normal limits for the patient's age. Soft Tissues: There is a small fat containing umbilical hernia. PELVIS: Bladder: There is diffuse thickening of the wall of the urinary bladder. The urinary bladder is incompletely distended. Reproductive Organs: Unremarkable as visualized. Lymph Nodes: Within normal limits. Bones: Within normal limits. IMPRESSION: 1. No acute abdominal or pelvic process. 2. No significant change in the appearance of the abdomen and pelvis compared to the prior examination. 3. The area of decreased attenuation described in the body of the pancreas is less prominent on the current examination. 4. Stable area of scarring/mass in the right perihilar region. 5. Slight interval improvement of the ground-glass opacities in the lungs since 10/25/2024. 6. There is no evidence of a pulmonary embolus, thoracic aortic dissection or aneurysm. RADIATION DOSE DELIVERED: 1,478.46mGy.cm Total DLP DATA REPOSITORY: All CT scans at this facility are submitted to the National Radiology Data Registry (NRDR) Dose Index Registry (DIR) with the [employer] (ACR). RADIATION OPTIMIZATION: All CT scans at this facility use at least one of these dose optimization techniques: automated exposure control; mA and/or kV adjustment per patient size (includes targeted exams where dose is matched to clinical indication); or iterative reconstruction.
[2024-12-13] MEDS: Barium Sulfate 2% W/V-Creamy Vanilla Smoothie 450 ML BTL PO (07:38)
[2024-12-13] MEDS: Normal Saline - Diluent 50 ML VIAL IJ (09:44)
[2024-12-13] MEDS: Omnipaque 350 MG/ML 100 ML BTL IJ (09:44)
[2024-12-13] MEDS: Normal Saline Flush 10 ML SYR IVP (09:45)
== END 2024-12-13 04:37 ==
LOC: DI 04:18
PROVIDERS: PCP Physician Assistant Medical; Visit Provider Nurse Practitioner Family
DX: C34.11 Malignant neoplasm of upper lobe, right bronchus or lung (principal); C79.31 Secondary malignant neoplasm of brain; C79.71 Secondary malignant neoplasm of right adrenal gland
CPT/HCPCS: 74177; 71260; J3490

== ENCOUNTER 2024-12-17 03:34 | Outpatient (CLI) | payer BC, SELFPAY ==
[2024-12-17 12:43] LABS: Abs Immature Grans 0.66 10^3/uL (0.0-0.06); HCT 36.7 % (40.0-50.0); HGB 12.2 g/dL (13.5-17.5); MCH 33.1 pg (27.0-33.0); MCHC 33.2 % (32.0-36.0); MCV 100 fL (80-95); MPV 8.6 fL (8.0-11.0); Platelet Count 221 10^3/uL (130-400); RBC 3.69 10^6/uL (4.36-5.78); RDW 16.9 % (11.8-14.1); RDW-SD 61.0 fL; WBC 12.39 10^3/uL (4.4-10.8)
[2024-12-17 13:08] LABS: ALT 68 U/L (16-63); AST 44 U/L (15-37); Albumin 3.1 g/dL (3.4-5.0); Alkaline Phosphatase 81 U/L (46-116); Anion Gap 8.4 mmol/L (3-11); BUN 16 mg/dL (7-18); Bilirubin, Total 0.3 mg/dL (0.2-1.0); CO2 30.6 mmol/L (21.0-32.0); Calcium 9.1 mg/dL (8.5-10.1); Chloride 103 mmol/L (98-107); Estimated GFR 60.59 (mL/min/1.73m2); Glucose 118 mg/dL (74-106); Magnesium 1.9 mg/dL (1.8-2.4); Potassium 3.9 mmol/L (3.5-5.1); Sodium 142 mmol/L (136-145); TSH 2.05 uIU/mL (0.36-3.74); Total Protein 6.9 g/dL (6.4-8.2)
[2024-12-17 13:09] LABS: Immature Grans % 0.0 %; RBC Morphology Normal
== END 2024-12-17 03:35 | disposition home or self-care (01) ==
LOC: LBO 03:34
PROVIDERS: PCP Physician Assistant Medical; Visit Provider Nurse Practitioner Family
DX: Z79.899 Other long term (current) drug therapy (principal); C34.11 Malignant neoplasm of upper lobe, right bronchus or lung
CPT/HCPCS: 36415; 80053; 83735; 84439; 84443; 85025

== ENCOUNTER 2024-12-19 13:19 | Outpatient (CLI) | payer BC, SELFPAY ==
--- NOTE | 2024-12-19 | DI.MRI_ITS ---
Exam(s) MR BRAIN WO/W EXAM: MR BRAIN WO/W CLINICAL HISTORY: C79.31 Assess treatment response,NSCLC w/LT parietal mets s/p hfSRS TECHNIQUE: Multiplanar multisequence MRI of the brain was performed. CONTRAST MATERIAL: IV Contrast: 20 mL of Dotarem contrast administered. COMPARISON: MR MR BRAIN WO/W from 04/25/2024 MR MR BRAIN WO/W from 10/01/2024 FINDINGS: The examination is limited due to patient motion artifact. VENTRICLES AND EXTRA AXIAL SPACES: Normal in size and morphology for the patient's age. HEMORRHAGE: None. CEREBRAL PARENCHYMA: No focus of restricted diffusion to suggest acute infarct. No space-occupying lesion identified. There are multiple foci of hyperintense signal seen in the white matter on the FLAIR and T2 weighted images consistent with chronic microvascular ischemic disease. MIDLINE SHIFT: None. BRAINSTEM/CEREBELLUM: Normal. CALVARIUM: Normal. ENHANCEMENT: There is no change in the enhancement in the superior medial left parietal lobe. There is minimal surrounding edema. There are no new enhancing lesions present. VISUALIZED PARANASAL SINUSES/MASTOIDS: There are mucous retention cysts in the maxillary sinuses bilaterally. Nonspecific fluid is seen in the mastoid air cells bilaterally. NIGHTMUTE OF BALL: Normal flow void. PITUITARY GLAND: Unremarkable. OTHER FINDINGS: IMPRESSION: Stable solitary enhancing focus in the superior medial left parietal lobe. There are no new enhancing lesions. DATA REPOSITORY:
[2024-12-19] MEDS: Gadoterate meglumine 20 ML SYRINGE IVP (13:12)
[2024-12-19] MEDS: Normal Saline Flush 10 ML SYR IVP (13:12)
== END 2024-12-19 13:39 ==
LOC: DI 13:20
PROVIDERS: PCP Physician Assistant Medical; Visit Provider Physician Assistant
DX: C79.31 Secondary malignant neoplasm of brain (principal)
CPT/HCPCS: 70553

== ENCOUNTER 2025-01-07 03:49 | Outpatient (CLI) | payer BC, SELFPAY ==
[2025-01-07 13:24] LABS: Abs Immature Grans 0.37 10^3/uL (0.0-0.06); HCT 37.1 % (40.0-50.0); HGB 12.4 g/dL (13.5-17.5); Immature Grans % 3.0 %; MCH 32.6 pg (27.0-33.0); MCHC 33.4 % (32.0-36.0); MCV 98 fL (80-95); MPV 8.4 fL (8.0-11.0); Platelet Count 366 10^3/uL (130-400); RBC 3.80 10^6/uL (4.36-5.78); RDW 15.7 % (11.8-14.1); RDW-SD 55.8 fL; WBC 12.20 10^3/uL (4.4-10.8)
[2025-01-07 13:52] LABS: ALT 20 U/L (16-63); AST 19 U/L (15-37); Albumin 2.9 g/dL (3.4-5.0); Alkaline Phosphatase 80 U/L (46-116); Anion Gap 13.7 mmol/L (3-11); BUN 15 mg/dL (7-18); Bilirubin, Total 0.2 mg/dL (0.2-1.0); CO2 26.3 mmol/L (21.0-32.0); Calcium 9.5 mg/dL (8.5-10.1); Chloride 101 mmol/L (98-107); Glucose 161 mg/dL (74-106); Magnesium 1.9 mg/dL (1.8-2.4); Potassium 3.6 mmol/L (3.5-5.1); Sodium 141 mmol/L (136-145); TSH 2.38 uIU/mL (0.36-3.74); Total Protein 7.9 g/dL (6.4-8.2)
== END 2025-01-07 03:50 | disposition home or self-care (01) ==
PROVIDERS: PCP Physician Assistant Medical; Visit Provider Nurse Practitioner Family
DX: Z79.899 Other long term (current) drug therapy (principal); C34.11 Malignant neoplasm of upper lobe, right bronchus or lung
CPT/HCPCS: 36415; 80053; 83735; 84439; 84443; 85025

== ENCOUNTER 2025-01-07 14:45 | Emergency (ER) | payer BC, SELFPAY ==
[2025-01-07] VITALS (34 sets, daily range): BP systolic 101–155; BP diastolic 74–104; PULSE 98–127; RESP 16–32; TEMP 36.6–37; O2SAT 94–97
--- NOTE | 2025-01-07 14:45 | RT.EKG_ITS ---
APPROVED REPORT Exam: Resting ECG Reason for Exam: Chest pain Patient Location: E HR:126 bpm ECG Measurements Heart Rate 126 AXIS LA 112 P 2 QRSd 86 QRS -76 QT 310 T 55 QTc 449 Conclusion Sinus tachycardia...rate> 99 Left anterior fascicular block...axis(240,-40), init forces inf No Occlusion [facility]
--- NOTE | 2025-01-07 15:49 | W.ED.GENAD ---
Discharge Plan Disposition Patient Disposition: Against Medical Advice Condition: Stable Discharge Details Clinical Impression: Left lower lobe pneumonia Primary Care Provider: Anais Varma ED Provider: Konstantin Hauser Home Meds and New Rx's Prescriptions: New cefpodoxime 200 mg tablet 200 mg PO BID 5 Days Qty: 10 0RF Rx Instructions: must administer with a meal/food doxycycline hyclate 100 mg capsule 100 mg PO BID 5 Days Qty: 10 0RF Continued levothyroxine 75 mcg capsule 75 mcg PO DAILY omeprazole 20 mg capsule,delayed release(DR/EC) 20 mg PO DAILY Trelegy Ellipta 100-62.5-25 mcg blister with device 1 inh inhalation DAILY loratadine 10 mg tablet 10 mg PO DAILY Patient Comments: TAKE ONE TABLET BY MOUTH EVERY DAY fluticasone propion-salmeterol [Advair HFA] 230-21 mcg/actuation HFA aerosol inhaler 2 inh INHALATION BID folic acid 1 mg tablet 1 mg PO DAILY Patient Comments: TAKE ONE TABLET BY MOUTH EVERY DAY prochlorperazine maleate 10 mg tablet 10 mg PO Q6H Patient Comments: TAKE ONE TABLET BY MOUTH EVERY 6 HOURS NEEDED FOR NAUSEA magnesium oxide 400 mg (241.3 mg magnesium) tablet 400 mg PO DAILY Patient Comments: TAKE ONE TABLET BY MOUTH EVERY DAY propranolol 20 mg tablet 20 mg PO BID Patient Comments: TAKE ONE TABLET BY MOUTH TWICE A DAY ipratropium-albuterol 0.5 mg-3 mg(2.5 mg base)/3 mL solution for nebulization 3 ml INHALATION TID PRN Patient Comments: INHALE THE CONTENTS OF ONE VIAL VIA NEBULIZER THREE TIMES A DAY azithromycin 250 mg tablet 250 mg PO DAILY Patient Comments: TAKE ONE TABLET BY MOUTH EVERY DAY prednisone 5 mg tablet 10 mg PO DAILY Patient Comments: TAKE 3 TABLETS BY MOUTH DAILY FOR 7 DAYS, THEN 2 TABLETS DAILY FOR 7 DAYS, THEN 1 TABLET DAILY FOR 7 DAYS Discharge Instructions Instructions: Cefpodoxime, Doxycycline, Pneumonia, Adult ED Additional Instructions: You were seen in the emergency department for your left lower lobe pneumonia, you had elevated lactate and elevated heart rate and elevated white blood cells, and you are immune compromised state this meets sepsis criteria, he stated he did not want to stay in the ER and made decision to leave AGAINST MEDICAL ADVICE despite risks of respiratory failure, worsening infection and possibly though I think this is less likely in your case. Nonetheless, I have sent to a prescription for 2 different antibiotics to treat this pneumonia and we loaded you on IV antibiotics before going home, your blood cultures are pending and should they result positive for any growth of bacteria in your bloodstream someone will call you. In the meantime please take Tylenol and ibuprofen, follow-up with your oncologist as needed and return for any worsening respiratory distress, high fevers, weakness or nausea, worsening tachycardia. Stand Alone Forms: Portal Information Referrals: Anais Varma PA [Primary Care Provider, Medicine] HPI General Date/Time Provider Initiated Documentation: 01/07/25 14:48. HPI Narrative: 64 year-old male presents to ED today by POV/ambulating with his with a chief complaint of tachycardia, chest pain, shortness of breat, and dizziness with productive cough of brown sputum currently being treated for pneumonitis, [facility] with onset of chest pain isolated to 15-20 minutes wit radiation down the L arm exactly one week ago- one episode only. Quality described as has just been feeling blah for the past month, reporting a few falls, with radiation to dizziness that is both lightheadedness and occasional vertigo- worse since MRI/CT scans about a month ago. Denies fevers, endorses nausea without vomiting, eating OK. Severity is described as moderate. Palliating factors include azithromycin without much change. Provoking factors include nothing specific. Events leading up to the incident/Associated Symptoms: Patients primary lung CA had mets to brain and adrenals in the past- and per him, the cancer is hiding but not in full remission. Patient had outpatient labs drawn earlier today. Patient not anticoagulated. Related Data Home Medications Medication Instructions Recorded Confirmed fluticasone propionate 230 2 inh inhalation BID 07/29/23 01/07/25 mcg-salmeterol 21 mcg/actuation HFA inhaler (Advair HFA) folic acid 1 mg tablet 1 mg PO DAILY 07/29/23 01/07/25 prochlorperazine maleate 10 mg 10 mg PO Q6H 07/29/23 01/07/25 tablet loratadine 10 mg tablet 10 mg PO DAILY 12/18/23 01/07/25 ipratropium 0.5 mg-albuterol 3 mg 3 ml inhalation TID PRN 06/29/24 01/07/25 (2.5 mg base)/3 mL nebulization soln magnesium oxide 400 mg (241.3 mg 400 mg PO DAILY 06/29/24 01/07/25 magnesium) tablet propranolol 20 mg tablet 20 mg PO BID 06/29/24 01/07/25 fluticasone fur. 100 mcg-umeclid 1 inh inhalation DAILY 08/20/24 01/07/25 62.5 mcg-vilant 25 mcg inhalat.powder (Trelegy Ellipta) levothyroxine 75 mcg capsule 75 mcg PO DAILY 08/20/24 01/07/25 omeprazole 20 mg capsule,delayed 20 mg PO DAILY 08/20/24 01/07/25 release azithromycin 250 mg tablet 250 mg PO DAILY 01/07/25 01/07/25 cefpodoxime 200 mg tablet 200 mg PO BID 5 days #10 tabs 01/07/25 doxycycline hyclate 100 mg capsule 100 mg PO BID 5 days #10 caps 01/07/25 prednisone 5 mg tablet 10 mg PO DAILY 01/07/25 01/07/25 Previous Rx's Medication Instructions Recorded cefpodoxime 200 mg tablet 200 mg PO BID 5 days #10 tabs 01/07/25 doxycycline hyclate 100 mg capsule 100 mg PO BID 5 days #10 caps 01/07/25 Allergies Allergy/AdvReac Type Severity Reaction Status Date / Time aspirin Allergy Severe Anaphylaxis Verified 01/07/25 14:57 Penicillins AdvReac Intermediate makes me Verified 01/07/25 14:57 kind of crazy General Stated Complaint: Palpitatns MK: 2 Review of Systems All systems reviewed & are unremarkable except as noted in HPI and below Exam Narrative Exam Narrative: GENERAL APPEARANCE: Well-nourished, non-toxic, awake and alert, atraumatic, mild acute distress, sounds congested. SKIN: Warm, pink, dry, intact, without rashes/lesions/ulcerations. HEAD: Normocephalic, atraumatic, normal hair distribution for gender/age. EYES: Normal conjunctiva, no exudates on lids/lashes. ENT: Nares patent, no circumoral cyanosis, no facial swelling NECK: Supple, trachea midline, painless cervical ROM. LUNGS/CHEST: Lungs CTA bilaterally-no rhonchi/rales/wheeze diffusely, non-labored respirations, normal A/P diameter, symmetrical expansion, no chest wall deformity HEART (CV/PV): Regular rate-mildly tachycardic at 100 and rhythm without murmur, no peripheral edema, no JVD. ABDOMEN: Soft, non-distended, no guarding, no tenderness. MSK: Normal ROM, no swelling/deformity to bilateral UEs or LEs, moving all extremities without weakness, no cyanosis, spine midline without tenderness, normal curvature. NEURO: Mental Status AAOx4 - alert to person, place, time, events No facial droop, no forehead involvement, no dysmetria with cerebellar testing Motor: No focal weakness - strength 5/5 in bilateral UEs and LEs, proximal and distal, symmetric. Has essential tremor Sensory: sensation intact to light touch globally. Gait normal: patient ambulated without ataxia into ED room. PSYCH: euthymic, cooperative, pleasant, appropriate speech Course Vital Signs Vital signs: Vital Signs Temperature 36.6 C 01/07/25 14:47 Pulse 127 H 01/07/25 14:47 Respiratory Rate 16 01/07/25 14:47 Blood Pressure 101/74 01/07/25 14:47 Pulse Oximetry 94 01/07/25 14:47 Temperature 36.6 C 01/07/25 14:47 Temperature Source Oral 01/07/25 14:47 Pulse 127 H 01/07/25 14:47 Pulse 124 H 01/07/25 15:10 Respiratory Rate 16 01/07/25 14:47 Blood Pressure 101/74 01/07/25 14:47 Blood Pressure Position Sitting 01/07/25 14:47 Pulse Oximetry 94 01/07/25 14:47 Oxygen Delivery Method Room Air 01/07/25 14:47 Oxygen Flow Rate 0 01/07/25 14:47 Pain Level 0 01/07/25 14:47 Medical Decision Making This dictation utilizes [id number] dictation software and may contain unedited grammatical errors. 64 year-old male presents to ED today by POV/ambulating with his with a chief complaint of tachycardia, chest pain, shortness of breat, and dizziness with productive cough of brown sputum currently being treated for pneumonitis, [facility] with onset of chest pain isolated to 15-20 minutes wit radiation down the L arm exactly one week ago- one episode only. Quality described as has just been feeling blah for the past month, reporting a few falls, with radiation to dizziness that is both lightheadedness and occasional vertigo- worse since MRI/CT scans about a month ago. Denies fevers, endorses nausea without vomiting, eating OK. Severity is described as moderate. Palliating factors include azithromycin without much change. Provoking factors include nothing specific. Events leading up to the incident/Associated Symptoms: Patients primary lung CA had mets to brain and adrenals in the past- and per him, the cancer is hiding but not in full remission. Patient had outpatient labs done earlier today. 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 Family and social history: Former smoker, no EtOH or drug use, no recent travel or sick contacts. Pertinent exam findings / vital signs include benign cardiopulmonary exam lungs CTA without wheezing or rhonchi, no murmur, benign abdomen, neuro intact with essential tremor, no dysmetria with cerebellar testing. Differential / pathologies of concern include BPPV, CVA, dehydration or electrolyte abnormality, ACS, PE, worsening pneumonia/pneumonitis, sepsis, viral syndrome, metastasis. - Reviewed patient's outpatient labs from earlier today including a CBC BMP, TSH - CBC shows WBC count 12.2, stable mild anemia HgB 12.4 - CMP shows mild elev. SCr of 1.6 with normal BUN - TSH WNL Diagnostic studies of: - CBC, CMP, lactate, lipase, magnesium, serial troponins, BNP, D-dimer, urinalysis, blood cultures, EKG, CT Head wo, CTA Chest PE study. - CBC shows leukocytosis to 12.62, 3.9% immature granulocytes with elevated absolute neutrophils, low lymphocytes and elevated monocytes - D-dimer 736 but patient has active cancer and is at high risk for PE so CTA chest was performed - Initial lactate 2.4, repeat 1.2 after 1 L of IV fluids - CMP is unremarkable with baseline JULIAN to 1.5 creatinine - Lipase negative - Serial troponins negative - Respiratory PCR swab negative - Blood cultures pending - CT head shows no acute pathology compared to prior studies show mastoid effusion which could be contributing to his dizziness - CTA of the chest shows worsening left-sided infiltrate, treating for pneumonia, stable right hilar findings with his lung cancer history - EKG shows sinus tachycardia at 126 bpm with P waves followed by a narrow complex QRS, poor R wave progression, no ST changes of ischemia, normal QTc, no T wave abnormalities Interventions of: -500mL IVF NS, 650mg PO Tylenol. 2 g IVP cefepime and outpatient prescription for p.o. cefpodoxime and doxycycline per patient preference ED Course/Assessment/Plan: 64-year-old male presents with feeling fatigued in general for the past month or so he is an oncology patient with a history of lung cancer with stable right hilar findings, he endorses some chest pain and shortness of breath and some dizziness and falls over the past month or so as well as a productive cough, he is on chronic treatment with azithromycin for pneumonitis. He has no pulmonary embolisms, serial troponins are negative. CTA of the chest shows a worsening left lower lobe infiltrate suspicious for pneumonia, the patient has mildly elevated tachycardia, staff physical therapist did not record his discharge vitals but he was resting at 100 bpm. I engaged in discussion of the patient that he would meet criteria in his immunocompromise state for admission for IV antibiotics, the patient stated he did not want to wait here in the ER or be admitted to the hospital so I loaded him with IV cefepime and prescribed him outpatient dual antibiotics for pneumonia. He was in no respiratory distress and had no fevers, I counseled him and his extensively on this decision and they engaged in shared decision making, he has close follow-up with multiple providers and he will return for any worsening. He did sign AGAINST MEDICAL ADVICE paperwork and acknowledged the risks -Resting heart rate on room is 108bpm @ 1610 Findings not consistent with hypoxic respiratory failure, febrile illness, ACS, PE, stroke. Disposition of left lower lobe pneumonia. Patient verbalized understanding of the plan and return to ED criteria and engaged in shared decision making. Medical Records Medical records reviewed: Yes I reviewed the patient's medical records. Imaging Data Radiologic Study: Attestation: I personally reviewed and interpreted this imaging study as follows: Radiologist's impression: EXAM: CT HEAD WO CLINICAL HISTORY: dizziness; falls; ongoing weeks. TECHNIQUE: Imaging Protocol: Axial computed tomography images with coronal and sagittal reformatted images were created and reviewed COMPARISON: CT CT BRAIN NECK CTA from 07/24/2024 FINDINGS: There are no skull fractures. There is no fluid in the visualized paranasal sinuses. However, there are small bilateral mastoid effusions noted. These were also evident on prior CT scan of 07/24/2024. There is no evidence of intracranial hemorrhage, mass effect, or shift of midline structures. There are no extra-axial fluid collections. The ventricles are not enlarged or shifted and there is no blood within the ventricular system nor within the basal cisterns. IMPRESSION: No acute intracranial findings on this noninfused CT scan of the brain. No significant change compared to 07/24/2024. Small bilateral mastoid effusions are again noted. There is no fluid in the middle ear cavities. Report called by myself to ER provider 01/07/2025 at 6:44 p.m. Radiologic Study #2: Attestation: I personally reviewed and interpreted this imaging study as follows: Imaging: CT Scan Radiologist's impression: EXAM: CT CHEST PE CTA CLINICAL HISTORY: chest tightness, CA patient. TECHNIQUE: Imaging Protocol: CT angiography of the chest was performed using pulmonary embolus protocol. Multi planar reconstructions were performed. CONTRAST MATERIAL: Intravenous: Omnipaque 350 Contrast volume: 100 cc COMPARISON: CT CT CHEST/ABD/PEL W from 12/13/2024 FINDINGS: CHEST: PULMONARY ARTERIES: There are no intraluminal filling defects to suggest acute pulmonary emboli. LUNGS: There is significant increase in amount infiltrate in both lung espitia.. This is most prominent in the left lower lobe basal segments. Small 4 millimeter nodular infiltrate in the sub apical region left upper lobe is unchanged. There is increased sub pleural infiltrate in the peripheral aspect of the left upper lobe. Also increased infiltrate in the lingular segment of the left lung. In the opposite-right lung there is again noted infiltrate extending from the hilum anteriorly to the upper lobe pleural surface. There is unchanged atelectasis in the basal segments of the right lower lobe. There are no pleural effusions. No significant findings in the trachea and mainstem bronchi. MEDIASTINUM: There is no increasing hilar nor mediastinal adenopathy. There is no subcarinal adenopathy. CARDIAC: Heart size remains normal. Small pericardial effusion is unchanged from 12/13/2024.Caliber of the thoracic aorta is within upper normal limits. No evidence of dissection. There is no significant shift of the interventricular septum. PARTIALLY VISUALIZED UPPERMOST ABDOMEN: There is no reflux of intravenous contrast into the intrahepatic IVC. Left adrenal gland unremarkable. Small partially calcified nodule in the right adrenal gland is unchanged. There is no ascites evident in the visualized upper abdomen. OSSEOUS: No significant osseous lesions.. IMPRESSION: 1. No evidence of acute pulmonary emboli. No evidence of pulmonary infarction.No pleural effusions. 2. Right hilar opacity and bronchiectasis involving the right upper and right middle lobes remain stable from CT scan of 12/13/2024. However, there are increasing infiltrates which most prominent in the left lower lobe basal segments. No associated pleural effusions. 3. Continued stable appearance of the previously described small nodule in the left lung apex region. Report called by myself to ER provider 01/07/2025 at 6:55 p.m. Lab Data Lab results reviewed: Yes I reviewed the patient's lab results. Labs: 01/07/25 16:48 Blood Blood Culture - Pending 01/07/25 16:38 Blood Blood Culture - Pending Laboratory Tests Range/Units 01/07/25 01/07/25 01/07/25 16:28 16:38 16:55 WBC (4.4-10.8) 10^3/uL 12.62 H RBC (4.36-5.78) 10^6/uL 3.55 L Hgb (13.5-17.5) g/dL 11.4 L Hct (40.0-50.0) % 34.7 L MCV (80-95) fL 98 H MCH (27.0-33.0) pg 32.1 MCHC (32.0-36.0) % 32.9 RDW (11.8-14.1) % 15.6 H Plt Count (130-400) 10^3/uL 380 MPV (8.0-11.0) fL 8.5 Immature Gran % % 3.9 Neutrophils % % 83.9 Lymphocytes % % 4.8 Monocytes % % 7.1 Eosinophils % % 0.1 Basophils % % 0.2 Nucleated RBC % (0.0-0.3) % 0.0 Absolute Neutrophils (1.2-6.7) 10^3/uL 10.59 H Absolute Lymphocytes (1.2-3.4) 10^3/uL 0.61 L Absolute Monocytes (0.1-0.8) 10^3/uL 0.90 H Absolute Eosinophils (0.0-0.7) 10^3/uL 0.01 Absolute Basophils (0.0-0.2) 10^3/uL 0.03 D-Dimer (<500) ng/mlFEU 736 H VBG Lactate (<or=2.0) mmol/L 2.4 H* Sodium (136-145) mmol/L 140 Potassium (3.5-5.1) mmol/L 3.9 Chloride (98-107) mmol/L 101 Carbon Dioxide (21.0-32.0) mmol/L 29.8 Anion Gap (3-11) mmol/L 9.2 BUN (7-18) mg/dL 15 Creatinine (0.70-1.30) mg/dL 1.5 H Est GFR (CKD-EPI 2020) (mL/min/1.73m2) 51.03 Glucose (74-106) mg/dL 107 H Calcium (8.5-10.1) mg/dL 9.3 Magnesium (1.8-2.4) mg/dL 1.9 Total Bilirubin (0.2-1.0) mg/dL 0.3 AST (15-37) U/L 23 ALT (16-63) U/L 19 Alkaline Phosphatase (46-116) U/L 79 Troponin I (<or=76) ng/L 18 NT-Pro-B Natriuret Pep (<300) pg/mL 200 Total Protein (6.4-8.2) g/dL 7.9 Albumin (3.4-5.0) g/dL 2.9 L Lipase (<78) U/L 38 COVID-19 Source Nasopharynx SARS-CoV-2 (PCR) (Negative) Negative Influenza Type A (PCR) (Negative) Negative Influenza Type B (PCR) (Negative) Negative RSV (PCR) (Negative) Negative Range/Units 01/07/25 01/07/25 18:55 20:10 WBC (4.4-10.8) 10^3/uL RBC (4.36-5.78) 10^6/uL Hgb (13.5-17.5) g/dL Hct (40.0-50.0) % MCV (80-95) fL MCH (27.0-33.0) pg MCHC (32.0-36.0) % RDW (11.8-14.1) % Plt Count (130-400) 10^3/uL MPV (8.0-11.0) fL Immature Gran % % Neutrophils % % Lymphocytes % % Monocytes % % Eosinophils % % Basophils % % Nucleated RBC % (0.0-0.3) % Absolute Neutrophils (1.2-6.7) 10^3/uL Absolute Lymphocytes (1.2-3.4) 10^3/uL Absolute Monocytes (0.1-0.8) 10^3/uL Absolute Eosinophils (0.0-0.7) 10^3/uL Absolute Basophils (0.0-0.2) 10^3/uL D-Dimer (<500) ng/mlFEU VBG Lactate (<or=2.0) mmol/L 1.2 Sodium (136-145) mmol/L Potassium (3.5-5.1) mmol/L Chloride (98-107) mmol/L Carbon Dioxide (21.0-32.0) mmol/L Anion Gap (3-11) mmol/L BUN (7-18) mg/dL Creatinine (0.70-1.30) mg/dL Est GFR (CKD-EPI 2020) (mL/min/1.73m2) Glucose (74-106) mg/dL Calcium (8.5-10.1) mg/dL Magnesium (1.8-2.4) mg/dL Total Bilirubin (0.2-1.0) mg/dL AST (15-37) U/L ALT (16-63) U/L Alkaline Phosphatase (46-116) U/L Troponin I (<or=76) ng/L 17 NT-Pro-B Natriuret Pep (<300) pg/mL Total Protein (6.4-8.2) g/dL Albumin (3.4-5.0) g/dL Lipase (<78) U/L COVID-19 Source SARS-CoV-2 (PCR) (Negative) Influenza Type A (PCR) (Negative) Influenza Type B (PCR) (Negative) RSV (PCR) (Negative) PFSH All Active Problems (Updated 01/07/25 @ 19:01 by SUNG Avila) Left lower lobe pneumonia (Acute) 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 (Acute) Impacted cerumen of left ear (Acute) Transient alteration of awareness (Acute) Low back pain (Acute) Disorder of kidney and ureter (Acute) Malignant brain tumor (Chronic) Leg swelling (Acute) COPD (chronic obstructive pulmonary disease) (Chronic) Chronic low back pain (Chronic) Dyspnea (Acute) Renal insufficiency, mild (Acute) CAP (community acquired pneumonia) (Acute) Medical History (Updated 01/07/25 @ 19:01 by SUNG Avila) Family history of malignant neoplasm of prostate Elevated blood pressure reading in office with diagnosis of hypertension Lung nodule Xerosis of skin Lung cancer Family History (Updated 10/11/24 @ 08:54 by Lou Smith) Mother , 70s No problems noted. Father , 80s alzheimers Prostate cancer CAD (coronary artery disease) Dementia Paternal Grandmother CAD (coronary artery disease) Social History (Updated 03/31/23 @ 11:57 by Yvonne Segal RN, RN) Smoking/Tobacco Use Status: Current every day Tobacco Type: smokeless tobacco Smoking risk assessment performed?: Yes Alcohol Intake: current Alcohol Intake frequency: holidays/special occasions only Alcohol type: hard liquor Drug use: Never Substance use type: does not use Household members: spouse Housing: house Number of Children: 3 number of grandchildren: 1 What is your relationship status?: Panel score (0-1 are the most socially isolated patients): 1 Do you feel safe at home: Yes Do you feel safe in your relationship?: Yes
[2025-01-07 16:48] LABS: Abs Immature Grans 0.49 10^3/uL (0.0-0.06); HCT 34.7 % (40.0-50.0); HGB 11.4 g/dL (13.5-17.5); Immature Grans % 3.9 %; MCH 32.1 pg (27.0-33.0); MCHC 32.9 % (32.0-36.0); MCV 98 fL (80-95); MPV 8.5 fL (8.0-11.0); Platelet Count 380 10^3/uL (130-400); RBC 3.55 10^6/uL (4.36-5.78); RDW 15.6 % (11.8-14.1); RDW-SD 55.5 fL; WBC 12.62 10^3/uL (4.4-10.8)
[2025-01-07 17:11] LABS: ALT 19 U/L (16-63); AST 23 U/L (15-37); Albumin 2.9 g/dL (3.4-5.0); Alkaline Phosphatase 79 U/L (46-116); Anion Gap 9.2 mmol/L (3-11); BUN 15 mg/dL (7-18); Bilirubin, Total 0.3 mg/dL (0.2-1.0); CO2 29.8 mmol/L (21.0-32.0); Calcium 9.3 mg/dL (8.5-10.1); Chloride 101 mmol/L (98-107); Glucose 107 mg/dL (74-106); Lipase 38 U/L (<78); Magnesium 1.9 mg/dL (1.8-2.4); Potassium 3.9 mmol/L (3.5-5.1); Sodium 140 mmol/L (136-145); Total Protein 7.9 g/dL (6.4-8.2); Troponin I 18 ng/L (<or=76)
[2025-01-07 17:15] LABS: D-Dimer 736 ng/mlFEU (<500)
--- NOTE | 2025-01-07 17:15 | DI.CT_ITS ---
Exam(s) CT CHEST PE CTA EXAM: CT CHEST PE CTA CLINICAL HISTORY: chest tightness, CA patient. TECHNIQUE: Imaging Protocol: CT angiography of the chest was performed using pulmonary embolus protocol. Multi planar reconstructions were performed. CONTRAST MATERIAL: Intravenous: Omnipaque 350 Contrast volume: 100 cc COMPARISON: CT CT CHEST/ABD/PEL W from 12/13/2024 FINDINGS: CHEST: PULMONARY ARTERIES: There are no intraluminal filling defects to suggest acute pulmonary emboli. LUNGS: There is significant increase in amount infiltrate in both lung espitia.. This is most prominent in the left lower lobe basal segments. Small 4 millimeter nodular infiltrate in the sub apical region left upper lobe is unchanged. There is increased sub pleural infiltrate in the peripheral aspect of the left upper lobe. Also increased infiltrate in the lingular segment of the left lung. In the opposite-right lung there is again noted infiltrate extending from the hilum anteriorly to the upper lobe pleural surface. There is unchanged atelectasis in the basal segments of the right lower lobe. There are no pleural effusions. No significant findings in the trachea and mainstem bronchi. MEDIASTINUM: There is no increasing hilar nor mediastinal adenopathy. There is no subcarinal adenopathy. CARDIAC: Heart size remains normal. Small pericardial effusion is unchanged from 12/13/2024.Caliber of the thoracic aorta is within upper normal limits. No evidence of dissection. There is no significant shift of the interventricular septum. PARTIALLY VISUALIZED UPPERMOST ABDOMEN: There is no reflux of intravenous contrast into the intrahepatic IVC. Left adrenal gland unremarkable. Small partially calcified nodule in the right adrenal gland is unchanged. There is no ascites evident in the visualized upper abdomen. OSSEOUS: No significant osseous lesions.. IMPRESSION: 1. No evidence of acute pulmonary emboli. No evidence of pulmonary infarction.No pleural effusions. 2. Right hilar opacity and bronchiectasis involving the right upper and right middle lobes remain stable from CT scan of 12/13/2024. However, there are increasing infiltrates which most prominent in the left lower lobe basal segments. No associated pleural effusions. 3. Continued stable appearance of the previously described small nodule in the left lung apex region. Report called by myself to ER provider 01/07/2025 at 6:55 p.m. RADIATION DOSE DELIVERED: 386.85mGy.cm Total DLP DATA REPOSITORY: All CT scans at this facility are submitted to the National Radiology Data Registry (NRDR) Dose Index Registry (DIR) with the [employer] ([employer]). RADIATION OPTIMIZATION: All CT scans at this facility use at least one of these dose optimization techniques: automated exposure control; mA and/or kV adjustment per patient size (includes targeted exams where dose is matched to clinical indication); or iterative reconstruction.
--- NOTE | 2025-01-07 17:15 | DI.CT_ITS ---
Exam(s) CT HEAD WO EXAM: CT HEAD WO CLINICAL HISTORY: dizziness; falls; ongoing weeks. TECHNIQUE: Imaging Protocol: Axial computed tomography images with coronal and sagittal reformatted images were created and reviewed COMPARISON: CT CT BRAIN NECK CTA from 07/24/2024 FINDINGS: There are no skull fractures. There is no fluid in the visualized paranasal sinuses. However, there are small bilateral mastoid effusions noted. These were also evident on prior CT scan of 07/24/2024. There is no evidence of intracranial hemorrhage, mass effect, or shift of midline structures. There are no extra-axial fluid collections. The ventricles are not enlarged or shifted and there is no blood within the ventricular system nor within the basal cisterns. IMPRESSION: No acute intracranial findings on this noninfused CT scan of the brain. No significant change compared to 07/24/2024. Small bilateral mastoid effusions are again noted. There is no fluid in the middle ear cavities. Report called by myself to ER provider 01/07/2025 at 6:44 p.m. RADIATION DOSE DELIVERED: 884.54mGy.cm Total DLP DATA REPOSITORY: All CT scans at this facility are submitted to the National Radiology Data Registry (NRDR) Dose Index Registry (DIR) with the [employer] (ACR). RADIATION OPTIMIZATION: All CT scans at this facility use at least one of these dose optimization techniques: automated exposure control; mA and/or kV adjustment per patient size (includes targeted exams where dose is matched to clinical indication); or iterative reconstruction.
[2025-01-07] MEDS: Omnipaque 350 MG/ML 100 ML BTL IJ (18:14)
[2025-01-07 18:15] LABS: COVID-19 PCR Negative (Negative); RSV PCR Negative (Negative)
[2025-01-07] MEDS: Normal Saline Flush 10 ML SYR IVP (18:23)
[2025-01-07] MEDS: Normal Saline - Diluent 50 ML VIAL IJ (18:23)
[2025-01-07] MEDS: Normal Saline 500 ML IV (18:42)
[2025-01-07 19:19] LABS: Troponin I 17 ng/L (<or=76)
[2025-01-07] MEDS: CEFEPIME 2 GM in Normal Saline 100 ML IVPB (19:30)
== END 2025-01-07 20:45 | disposition left against medical advice (07) ==
PROVIDERS: Emergency Provider Physician Assistant; PCP Physician Assistant Medical
DX: J18.9 Pneumonia, unspecified organism (principal)
CPT/HCPCS: 99284; 99285; 36415; 71275; 80053; 83690; 87040; 87637; 93005; 96361; 96365; 70450; 83605; 83735; 83880; 84484; 85025; 85379; 93010; J0692; J3490

== ENCOUNTER 2025-02-04 04:12 | Outpatient (CLI) | payer BC, SELFPAY ==
[2025-02-04 13:33] LABS: Abs Immature Grans 0.19 10^3/uL (0.0-0.06); HCT 38.5 % (40.0-50.0); HGB 12.8 g/dL (13.5-17.5); Immature Grans % 2.1 %; MCH 31.1 pg (27.0-33.0); MCHC 33.2 % (32.0-36.0); MCV 93 fL (80-95); MPV 8.3 fL (8.0-11.0); Platelet Count 306 10^3/uL (130-400); RBC 4.12 10^6/uL (4.36-5.78); RDW 12.8 % (11.8-14.1); RDW-SD 43.7 fL; WBC 8.85 10^3/uL (4.4-10.8)
[2025-02-04 13:48] LABS: Magnesium 1.8 mg/dL (1.6-2.6)
[2025-02-04 13:49] LABS: ALT 7 U/L (10-49); AST 22 U/L (<34); Albumin 3.9 g/dL (3.2-5.0); Alkaline Phosphatase 81 U/L (46-116); Anion Gap 8.7 mmol/L (3-11); BUN 11 mg/dL (9-23); Bilirubin, Total 0.40 mg/dL (0.2-1.2); CO2 28.3 mmol/L (20.0-31.0); Calcium 9.6 mg/dL (8.3-10.6); Chloride 102 mmol/L (98-107); Glucose 135 mg/dL (74-106); Potassium 4.0 mmol/L (3.5-5.1); Sodium 139 mmol/L (136-145); Total Protein 7.6 g/dL (5.7-8.2)
[2025-02-04 13:53] LABS: TSH 3.35 uIU/mL (0.55-4.78)
== END 2025-02-04 04:13 | disposition home or self-care (01) ==
LOC: LBO 04:12
PROVIDERS: PCP Physician Assistant Medical; Visit Provider Nurse Practitioner Family
DX: C34.11 Malignant neoplasm of upper lobe, right bronchus or lung (principal); Z79.899 Other long term (current) drug therapy
CPT/HCPCS: 36415; 80053; 83735; 84439; 84443; 85025

== ENCOUNTER 2025-02-21 11:20 | Emergency (ER) | payer BC, SELFPAY ==
[2025-02-21] VITALS (12 sets, daily range): BP systolic 105–134; BP diastolic 53–104; PULSE 107–159; RESP 16–27; TEMP 37.3; O2SAT 92–97
--- NOTE | 2025-02-21 11:45 | RT.EKG_ITS ---
APPROVED REPORT Exam: Resting ECG Reason for Exam: tachycardia Patient Location: E HR:123 bpm ECG Measurements Heart Rate 123 AXIS MT 172 P 69 QRSd 89 QRS -69 QT 309 T 57 QTc 442 Conclusion Sinus tachycardia...rate> 99 Left anterior fascicular block...axis(240,-40), init forces inf No Occlusion PA
--- NOTE | 2025-02-21 11:55 | DI.CT_ITS ---
Exam(s) CT HEAD CERVICAL SPINE WO EXAM: CT HEAD CERVICAL SPINE WO CLINICAL HISTORY: falls, hx of brain tumor. TECHNIQUE: Imaging Protocol: Axial computed tomography images with coronal and sagittal reformatted images were created and reviewed COMPARISON: CT CT BRAIN NECK CTA from 07/24/[address] HEAD WO from 01/07/2025 FINDINGS: CT Head: Ventricles and Extra axial spaces: Normal in size and morphology for the patient's age. Hemorrhage: None. Cerebral parenchyma: There are areas of decreased attenuation in the white matter suggesting small vessel ischemic disease. There is an unchanged area of encephalomalacia involving the high left parietal lobe. There is no evidence to suggest an acute territorial infarct or mass effect. Midline shift: None. Brainstem/Cerebellum: Normal. Calvarium: Normal. Visualized Paranasal sinuses/Mastoids: There are mucous retention cysts in the maxillary sinuses bilaterally. There is some fluid seen within the mastoid air cells. Soft Tissues: Unremarkable. CT Cervical Spine: Bones: No acute fracture or subluxation. Soft Tissues: Unremarkable. Lung Apices: There is a left pleural effusion present. IMPRESSION: 1. No acute intracranial process. 2. No acute fracture or subluxation in the cervical spine. RADIATION DOSE DELIVERED: 1,483.6mGy.cm Total DLP DATA REPOSITORY: All CT scans at this facility are submitted to the National Radiology Data Registry (NRDR) Dose Index Registry (DIR) with the [employer] (ACR). RADIATION OPTIMIZATION: All CT scans at this facility use at least one of these dose optimization techniques: automated exposure control; mA and/or kV adjustment per patient size (includes targeted exams where dose is matched to clinical indication); or iterative reconstruction.
--- NOTE | 2025-02-21 12:05 | DI.CT_ITS ---
Exam(s) CT THORACIC LUMBAR SPINE REC CT CHEST PE ABD PELVIS W EXAM: CT CHEST PE ABD PELVIS W and CT thoracic and lumbar spine recons CLINICAL HISTORY: chest trauma/anterior pain, recurrent dyspnea, ca. TECHNIQUE: Imaging Protocol: Axial CT angiography was performed with multi- slice acquisition and multi-planar and/or 3D reconstructions. Computer aided detection (CAD) was utilized. CONTRAST MATERIAL: Intravenous: Omnipaque 350contrast volume:80 mL COMPARISON: CT CT CHEST/ABD/PEL W from 12/13/[address] CHEST PE CTA from 01/07/[address] THORACIC LUMBAR SPINE REC from 02/21/2025 FINDINGS: CHEST: Tracheobronchial tree: Patent where visualized. Pulmonary parenchyma: There is a stable left upper lobe pulmonary nodule. The right hilar opacity/scarring is unchanged. There is associated bronchiectasis. There are no new pulmonary infiltrates. The infiltrate seen in the lower lobe have significantly improved compared to the prior examination. The left lingular infiltrate has resolved. Pulmonary Arteries: No evidence of filling defect to suggest pulmonary emboli. Mediastinum and Amaris: No dominant adenopathy or fluid collection. The esophagus is unremarkable. There is a small hiatal hernia. Visualized thyroid gland: Unremarkable. Pleura: There has been interval development of bilateral moderate pleural effusions, right greater than left. Heart: The heart is not dilated. Coronary artery calcifications are present. There is a stable small pericardial effusion. Aorta: Thoracic aorta non-dilated. Atherosclerotic calcification is present. Bones: Within normal limits for the patient's age. No displaced rib fractures. Soft tissues: Unremarkable. Thoracic spine recons: Age-appropriate degenerative changes are present. There are no acute fractures or subluxations present. Tubes, Catheters, and Lines: ABDOMEN: Liver: Normal density. No measurable mass. Portal, Superior Mesenteric, and Splenic Veins: Unremarkable. Gallbladder and Biliary Tract: No radiodense calculus or dilation. Pancreas: Normal density, no abnormal calcifications or inflammatory process. Spleen: Normal. Adrenals: Stable calcification and nodular thickening of the right adrenal gland. The left adrenal gland is unremarkable. Kidneys: Normal size, contour and axis. No radiodense stones or obstructive uropathy. No masses seen. Abdominal Aorta: Abdominal portion non-dilated. Atherosclerotic calcifications are present. Bowel: No obstruction or bowel wall thickening. There is no evidence of appendicitis. There is a small hiatal hernia. Peritoneal Cavity: No ascites, collection or mesenteric inflammatory response. No free air. Lymph Nodes: Within normal limits. Bones: Within normal limits for the patient's age. Soft Tissues: There is a small fat containing umbilical hernia. CT recons of the lumbar spine: Age-appropriate degenerative changes are present. There are no acute fractures or subluxations seen in the lumbar spine. PELVIS: Bladder: Symmetric distention, no gross wall thickening. Reproductive Organs: The prostate gland is enlarged mildly. Lymph Nodes: Within normal limits. Bones: Within normal limits. IMPRESSION: 1. No acute abdominal or pelvic process. 2. There is no acute fracture or subluxation is seen in the thoracic or lumbar spine. 3. Stable incidental findings in the chest, abdomen and pelvis. 4. Interval improvement in the bilateral pulmonary infiltrates since 01/07/2025. 5. Stable scarring in the right hilum. 6. Stable left upper lobe pulmonary nodule. RADIATION DOSE DELIVERED: 2,119.69mGy.cm Total DLP DATA REPOSITORY: All CT scans at this facility are submitted to the National Radiology Data Registry (NRDR) Dose Index Registry (DIR) with the [employer] (ACR). RADIATION OPTIMIZATION: All CT scans at this facility use at least one of these dose optimization techniques: automated exposure control; mA and/or kV adjustment per patient size (includes targeted exams where dose is matched to clinical indication); or iterative reconstruction.
[2025-02-21 12:31] LABS: BE (Venous) 3 mmol/L (-2-3); HCO3 (Venous) 27 mmol/L (23-28); O2 Sat (Venous) 79 %; TCO2 (Venous) 25 mmol/L (24-29); pCO2 (Venous) 42 mmHg (41-51); pO2 (Venous) 43 mmHg
[2025-02-21] MEDS: Normal Saline Flush 10 ML SYR IVP (13:20)
[2025-02-21] MEDS: Normal Saline - Diluent 50 ML VIAL IJ (13:20)
[2025-02-21] MEDS: Omnipaque 350 MG/ML 100 ML BTL IJ (13:21)
[2025-02-21] MEDS: ACETAMINOPHEN 500 MG/50 ML BAG 200 MG IVPB (13:27)
[2025-02-21] MEDS: Levalbuterol 1.25 MG/3 ML UPD VIAL UPD (13:33)
[2025-02-21 14:04] LABS: COVID-19 PCR Negative (Negative); RSV PCR Negative (Negative)
[2025-02-21 14:07] LABS: Magnesium 1.8 mg/dL (1.6-2.6)
[2025-02-21 14:11] LABS: TSH (W/Ref FT4) 3.12 uIU/mL (0.55-4.78)
[2025-02-21 14:55] LABS: Lab Add On Test DONE
--- NOTE | 2025-02-21 15:16 | W.ED.GENAD ---
Discharge Plan Disposition Patient Disposition: Home Condition: Stable Discharge Details Clinical Impression: Bilateral pleural effusion Primary Care Provider: Anais Varma ED Provider: Konstantin Hauser Home Meds and New Rx's Prescriptions: Continued levothyroxine 75 mcg capsule 75 mcg PO DAILY omeprazole 20 mg capsule,delayed release(DR/EC) 20 mg PO DAILY Trelegy Ellipta 100-62.5-25 mcg blister with device 1 inh inhalation DAILY loratadine 10 mg tablet 10 mg PO DAILY Patient Comments: TAKE ONE TABLET BY MOUTH EVERY DAY Trelegy Ellipta 200-62.5-25 mcg blister with device 1 inh inhalation DAILY gabapentin 300 mg capsule 300 mg PO TID Patient Comments: TAKE ONE CAPSULE BY MOUTH THREE TIMES A DAY sertraline 50 mg tablet 50 mg PO ONCE Patient Comments: TAKE ONE TABLET BY MOUTH EVERY DAY folic acid 1 mg tablet 1 mg PO DAILY Patient Comments: TAKE ONE TABLET BY MOUTH EVERY DAY magnesium oxide 400 mg (241.3 mg magnesium) tablet 400 mg PO DAILY Patient Comments: TAKE ONE TABLET BY MOUTH EVERY DAY ipratropium-albuterol 0.5 mg-3 mg(2.5 mg base)/3 mL solution for nebulization 3 ml INHALATION TID PRN Patient Comments: INHALE THE CONTENTS OF ONE VIAL VIA NEBULIZER THREE TIMES A DAY azithromycin 250 mg tablet 250 mg PO DAILY Patient Comments: TAKE ONE TABLET BY MOUTH EVERY DAY Discharge Instructions Instructions: Pleural effusion, Thoracentesis Additional Instructions: You were seen in the emergency department for your increased falls weakness and shortness of breath, CT shows you have bilateral pleural effusions, I 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 Phillips who will arrange follow-up for you in the thoracentesis clinic next week, he should call you tomorrow for a checkup and possibly a decision regarding steroids, at this time it is reasonable to discharge home and return for any profound increase in shortness of breath and weakness. Stand Alone Forms: Portal Information Referrals: Anais Varma PA [Primary Care Provider, Medicine] Discharge Data Discharge Date/Time-TO BE ENTERED AT DEPARTURE: 02/21/25 17:01 HPI General Date/Time Provider Initiated Documentation: 02/21/25 11:24. HPI Narrative: This 64-year-old male with history of lung cancer, metastasis to brain, recurrent pneumonitis, COPD has been off chemotherapy for the past 2 to 3 months secondary to acquired pneumonitis presents with report of 3 falls in the past week. States he has pain to his chest, he fell forward with every episode. He states he is chronically unstable on his feet secondary to his brain tumor history per his neurologist. He states he has felt slightly more weak this week. Denies any fever or chills. He states he always has an element of shortness of breath, is not significantly worse this week but that is more persistent. He states he has baseline tachycardia he is unsure as to whether or not it is worse. Denies prior diagnosis of orthostatic hypotension. Denies any new medications. Denies any head injuries with this falls or history of anticoagulation. Otherwise taking all medications as prescribed Related Data Home Medications ?Medication ?Instructions ?Recorded ?Confirmed folic acid 1 mg tablet 1 mg PO DAILY 07/29/23 02/21/25 loratadine 10 mg tablet 10 mg PO DAILY 12/18/23 02/21/25 ipratropium 0.5 mg-albuterol 3 mg 3 ml inhalation TID PRN 06/29/24 02/21/25 (2.5 mg base)/3 mL nebulization soln magnesium oxide 400 mg (241.3 mg 400 mg PO DAILY 06/29/24 02/21/25 magnesium) tablet fluticasone fur. 100 mcg-umeclid 1 inh inhalation DAILY 08/20/24 02/21/25 62.5 mcg-vilant 25 mcg inhalat.powder (Trelegy Ellipta) levothyroxine 75 mcg capsule 75 mcg PO DAILY 08/20/24 02/21/25 omeprazole 20 mg capsule,delayed 20 mg PO DAILY 08/20/24 02/21/25 release azithromycin 250 mg tablet 250 mg PO DAILY 01/07/25 02/21/25 fluticasone fur. 200 mcg-umeclid 1 inh inhalation DAILY 02/21/25 02/21/25 62.5 mcg-vilant 25 mcg inhalat.powder (Trelegy Ellipta) gabapentin 300 mg capsule 300 mg PO TID 02/21/25 02/21/25 sertraline 50 mg tablet 50 mg PO ONCE 02/21/25 02/21/25 Allergies Allergy/AdvReac Type Severity Reaction Status Date / Time aspirin Allergy Severe Anaphylaxis Verified 02/21/25 11:34 Penicillins AdvReac Intermediate makes me Verified 02/21/25 11:34 kind of crazy General Stated Complaint: Chest/Rib MK: 3 Exam Narrative Exam Narrative: Alert and oriented 64-year-old male appears chronically ill, diminished lung sounds with wheezes, speaking in complete sentences, 1+ edema to bilateral lower extremities, answering questions appropriately oropharynx patent uvula midline, diffuse tenderness across chest wall no significant abdominal tenderness rebound or guarding no visible evidence of trauma, mild paraspinal cervical tenderness, pupils are equal round reactive to light, accommodation. No hemotympanum strength and sensation intact distally, tremor noted Course Vital Signs Vital signs: Vital Signs Temperature 37.3 C 02/21/25 11:27 Pulse 134 H 02/21/25 11:27 Respiratory Rate 16 02/21/25 11:27 Blood Pressure 130/96 H 02/21/25 11:27 Pulse Oximetry 92 02/21/25 11:27 Temperature 37.3 C 02/21/25 11:27 Temperature Source Oral 02/21/25 11:27 Pulse 107 H 02/21/25 14:46 Pulse 110 H 02/21/25 14:31 Respiratory Rate 18 02/21/25 14:46 Respiratory Effort Normal 02/21/25 12:28 Respiratory Depth Normal 02/21/25 12:28 Respiratory Pattern Normal 02/21/25 12:28 Blood Pressure 109/53 L 02/21/25 14:46 Blood Pressure Mean 70 02/21/25 14:46 Blood Pressure Position Sitting 02/21/25 11:27 Pulse Oximetry 92 02/21/25 14:31 Oxygen Delivery Method Room Air 02/21/25 11:27 Oxygen Flow Rate 0 02/21/25 11:27 Pain Level 6 02/21/25 12:28 Comment no pain at rest 02/21/25 11:27 Lab/Test Results Lab/Test Results: 02/21/25 12:52 Blood Blood Culture - Pending 02/21/25 12:18 Blood Blood Culture - Pending Laboratory Tests Range/Units 02/21/25 02/21/25 02/21/25 12:18 12:26 12:56 VBG pH (7.31-7.41) 7.43 H VBG pCO2 (41-51) mmHg 42 VBG pO2 mmHg 43 VBG HCO3 (23-28) mmol/L 27 VBG Total CO2 (24-29) mmol/L 25 VBG O2 Saturation % 79 VBG Base Excess (-2-3) mmol/L 3 VBG Lactate (<or=2.0) mmol/L 1.7 Sodium Cancelled Potassium Cancelled Chloride Cancelled Carbon Dioxide Cancelled Anion Gap Cancelled BUN Cancelled Creatinine Cancelled Est GFR (CKD-EPI 2020) Cancelled Glucose Cancelled Calcium Cancelled Magnesium Cancelled Total Bilirubin Cancelled AST Cancelled ALT Cancelled Alkaline Phosphatase Cancelled Troponin I Cancelled Cancelled NT-Pro-B Natriuret Pep (<300) pg/mL Total Protein Cancelled Albumin Cancelled TSH Cancelled COVID-19 Source Nasopharynx SARS-CoV-2 (PCR) (Negative) Negative Influenza Type A (PCR) (Negative) Negative Influenza Type B (PCR) (Negative) Negative RSV (PCR) (Negative) Negative Add-On Test Request Range/Units 02/21/25 02/21/25 13:14 14:43 VBG pH (7.31-7.41) VBG pCO2 (41-51) mmHg VBG pO2 mmHg VBG HCO3 (23-28) mmol/L VBG Total CO2 (24-29) mmol/L VBG O2 Saturation % VBG Base Excess (-2-3) mmol/L VBG Lactate (<or=2.0) mmol/L Sodium Potassium Chloride Carbon Dioxide Anion Gap BUN Creatinine Est GFR (CKD-EPI 2020) Glucose Calcium Magnesium 1.8 Total Bilirubin AST ALT Alkaline Phosphatase Troponin I NT-Pro-B Natriuret Pep (<300) pg/mL 81 Total Protein Albumin TSH 3.12 COVID-19 Source SARS-CoV-2 (PCR) (Negative) Influenza Type A (PCR) (Negative) Influenza Type B (PCR) (Negative) RSV (PCR) (Negative) Add-On Test Request DONE Medical Decision Making Results: CBC does not show evidence of acute abnormality, CMP within normal limits including troponin and thyroid CT brain and cervical spine do not show acute abnormality, CT chest abdomen and pelvis shows evidence of developing moderate pleural effusions bilaterally Assessment and plan: Patient is alert and oriented, he is ambulatory but tachycardic and feels occasionally unsteady. He does have a history of brain cancer and lung cancer and did stop chemotherapy 3 months ago and has not had another CT scan since that time. CT today shows moderate bilateral pleural effusions which appears to be new. It looks like his pneumonitis has improved since his prior CAT scan in January. He has had a prior echocardiogram that showed a 65% ejection fraction back in May 2024 without any valvular abnormalities. He has no significant peripheral edema. He followed up with neurology 1 week ago and did voice his concerns regarding his gait but they attributed to possible progression of disease. I spoke with Dr. Matthews, pulmonology at [facility] or patient follows and he will speak to his attending and let us know additional plans. Low suspicion clinically for CHF in conjunction with recent echocardiogram and BNP suspect symptoms are related to moderate pleural effusions. Pending return call from [facility] will transition care to Brent Hauser. 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) Impacted cerumen of left ear (Acute) Transient alteration of awareness (Acute) Low back pain (Acute) Disorder of kidney and ureter (Acute) Malignant brain tumor (Chronic) Leg swelling (Acute) COPD (chronic obstructive pulmonary disease) (Chronic) Chronic low back pain (Chronic) Dyspnea (Acute) Renal insufficiency, mild (Acute) CAP (community acquired pneumonia) (Acute) Medical History (Updated 02/21/25 @ 16:45 by SUNG Avila) Family history of malignant neoplasm of prostate Elevated blood pressure reading in office with diagnosis of hypertension Lung nodule Xerosis of skin Lung cancer Family History (Updated 10/11/24 @ 08:54 by Lou Smith) Mother , 70s No problems noted. Father , 80s alzheimers Prostate cancer CAD (coronary artery disease) Dementia Paternal Grandmother CAD (coronary artery disease) Social History (Updated 03/31/23 @ 11:57 by Yvonne Segal RN, RN) Smoking/Tobacco Use Status: Current every day Tobacco Type: smokeless tobacco Smoking risk assessment performed?: Yes Alcohol Intake: current Alcohol Intake frequency: holidays/special occasions only Alcohol type: hard liquor Drug use: Never Substance use type: does not use Household members: spouse Housing: house Number of Children: 3 number of grandchildren: 1 What is your relationship status?: Panel score (0-1 are the most socially isolated patients): 1 Do you feel safe at home: Yes Do you feel safe in your relationship?: Yes
[2025-02-21 15:37] LABS: ALT < 7 U/L (10-49); AST 15 U/L (<34); Albumin 3.5 g/dL (3.2-5.0); Alkaline Phosphatase 75 U/L (46-116); Anion Gap 8.3 mmol/L (3-11); BUN 12 mg/dL (9-23); Bilirubin, Total 0.4 mg/dL (0.2-1.2); CO2 28.3 mmol/L (20.0-31.0); Calcium 8.5 mg/dL (8.3-10.6); Chloride 99 mmol/L (98-107); Glucose 87 mg/dL (74-106); Potassium 3.7 mmol/L (3.5-5.1); Sodium 136 mmol/L (136-145); Total Protein 6.8 g/dL (5.7-8.2); Troponin I < 3 ng/L (<54)
[2025-02-21 16:02] LABS: HCT 37.1 % (40.0-50.0); HGB 12.3 g/dL (13.5-17.5); MCH 30.0 pg (27.0-33.0); MCHC 33.2 % (32.0-36.0); MCV 91 fL (80-95); MPV 9.1 fL (8.0-11.0); Platelet Count 274 10^3/uL (130-400); RBC 4.10 10^6/uL (4.36-5.78); RDW 13.0 % (11.8-14.1); RDW-SD 43.0 fL; WBC 10.57 10^3/uL (4.4-10.8)
[2025-02-21 16:03] LABS: Abs Immature Grans 0.15 10^3/uL (0.0-0.06); Immature Grans % 1.4 %
[2025-02-21 16:06] LABS: Glucose Negative (Negative)
[2025-02-21 16:20] LABS: RBC Negative HPF (0-2)
[2025-02-21 16:21] LABS: C & S Indicated? No
--- NOTE | 2025-02-21 16:42 | W.EDPROG ---
Date of service: 02/21/25 Time of Service: 16:42 Medical Decision Making This dictation utilizes [id number] dictation software and may contain unedited grammatical errors. Patient seen in signout from Iliana Champagne PA-C, please see her note. Essentially this 64-year-old male with stage IV lung cancer and known chronic pneumonitis presents with some falls send weakness and shortness of breath, perrin scan CT shows clear head and neck/C-spine, CT of the chest shows bilateral pleural effusions which prior provider consulted with [facility] pulmonology fellow awaiting callback from pulmonology attending physician for recommendations on bilateral pleural effusions. Diagnostic studies of: - Reviewed labs and imaging. Interventions of: -Consulted with patients attending Dr. Phillips at [facility] Pulmonology @ [id number] - no recommendations for additional medications or steroid prescription, he will call and check up with the patient tomorrow as well as schedule him for thoracentesis clinic next week. ED Course/Assessment/Plan: 64-year-old male with stage IV lung cancer presents with some falls and weakness and shortness of breath, has a chronic pneumonitis from his cancer treatments that they have discontinued, perrin scan from falls shows bilateral pleural effusions likely the source of his shortness of breath, otherwise he is able to ambulate and is nontoxic and neuro intact, counseled him that we did get in touch with his attending physician at pulmonology practice who will call him tomorrow and get him in for thoracentesis clinic visit next week, patient was comfortable with this plan, I stressed strict return criteria for any acute worsening in the meantime. Findings not consistent with stroke, ACS, acute trauma from falls, severe pneumonia, hypoxic respiratory failure. Disposition of bilateral pleural effusion. Patient verbalized understanding of the plan and return to ED criteria and engaged in shared decision making. Medical Records Medical records reviewed: Yes I reviewed the patient's medical records. Imaging Data Radiologic Study: Attestation: I personally reviewed and interpreted this imaging study as follows: Imaging: CT Scan Radiologist's impression: EXAM: CT HEAD CERVICAL SPINE WO CLINICAL HISTORY: falls, hx of brain tumor. TECHNIQUE: Imaging Protocol: Axial computed tomography images with coronal and sagittal reformatted images were created and reviewed COMPARISON: CT CT BRAIN NECK CTA from 07/24/[address] HEAD WO from 01/07/2025 FINDINGS: CT Head: Ventricles and Extra axial spaces: Normal in size and morphology for the patient's age. Hemorrhage: None. Cerebral parenchyma: There are areas of decreased attenuation in the white matter suggesting small vessel ischemic disease. There is an unchanged area of encephalomalacia involving the high left parietal lobe. There is no evidence to suggest an acute territorial infarct or mass effect. Midline shift: None. Brainstem/Cerebellum: Normal. Calvarium: Normal. Visualized Paranasal sinuses/Mastoids: There are mucous retention cysts in the maxillary sinuses bilaterally. There is some fluid seen within the mastoid air cells. Soft Tissues: Unremarkable. CT Cervical Spine: Bones: No acute fracture or subluxation. Soft Tissues: Unremarkable. Lung Apices: There is a left pleural effusion present. IMPRESSION: 1. No acute intracranial process. 2. No acute fracture or subluxation in the cervical spine. Radiologic Study #2: Attestation: I personally reviewed and interpreted this imaging study as follows: Imaging: CT Scan Radiologist's impression: EXAM: CT CHEST PE ABD PELVIS W and CT thoracic and lumbar spine recons CLINICAL HISTORY: chest trauma/anterior pain, recurrent dyspnea, ca. TECHNIQUE: Imaging Protocol: Axial CT angiography was performed with multi-slice acquisition and multi-planar and/or 3D reconstructions. Computer aided detection (CAD) was utilized. CONTRAST MATERIAL: Intravenous: Omnipaque 350contrast volume:80 mL COMPARISON: CT CT CHEST/ABD/PEL W from 12/13/[address] CHEST PE CTA from 01/07/[address] THORACIC LUMBAR SPINE REC from 02/21/2025 FINDINGS: CHEST: Tracheobronchial tree: Patent where visualized. Pulmonary parenchyma: There is a stable left upper lobe pulmonary nodule. The right hilar opacity/scarring is unchanged. There is associated bronchiectasis. There are no new pulmonary infiltrates. The infiltrate seen in the lower lobe have significantly improved compared to the prior examination. The left lingular infiltrate has resolved. Pulmonary Arteries: No evidence of filling defect to suggest pulmonary emboli. Mediastinum and Amaris: No dominant adenopathy or fluid collection. The esophagus is unremarkable. There is a small hiatal hernia. Visualized thyroid gland: Unremarkable. Pleura: There has been interval development of bilateral moderate pleural effusions, right greater than left. Heart: The heart is not dilated. Coronary artery calcifications are present. There is a stable small pericardial effusion. Aorta: Thoracic aorta non-dilated. Atherosclerotic calcification is present. Bones: Within normal limits for the patient's age. No displaced rib fractures. Soft tissues: Unremarkable. Thoracic spine recons: Age-appropriate degenerative changes are present. There are no acute fractures or subluxations present. Tubes, Catheters, and Lines: ABDOMEN: Liver: Normal density. No measurable mass. Portal, Superior Mesenteric, and Splenic Veins: Unremarkable. Gallbladder and Biliary Tract: No radiodense calculus or dilation. Pancreas: Normal density, no abnormal calcifications or inflammatory process. Spleen: Normal. Adrenals: Stable calcification and nodular thickening of the right adrenal gland. The left adrenal gland is unremarkable. Kidneys: Normal size, contour and axis. No radiodense stones or obstructive uropathy. No masses seen. Abdominal Aorta: Abdominal portion non-dilated. Atherosclerotic calcifications are present. Bowel: No obstruction or bowel wall thickening. There is no evidence of appendicitis. There is a small hiatal hernia. Peritoneal Cavity: No ascites, collection or mesenteric inflammatory response. No free air. Lymph Nodes: Within normal limits. Bones: Within normal limits for the patient's age. Soft Tissues: There is a small fat containing umbilical hernia. CT recons of the lumbar spine: Age-appropriate degenerative changes are present. There are no acute fractures or subluxations seen in the lumbar spine. PELVIS: Bladder: Symmetric distention, no gross wall thickening. Reproductive Organs: The prostate gland is enlarged mildly. Lymph Nodes: Within normal limits. Bones: Within normal limits. IMPRESSION: 1. No acute abdominal or pelvic process. 2. There is no acute fracture or subluxation is seen in the thoracic or lumbar spine. 3. Stable incidental findings in the chest, abdomen and pelvis. 4. Interval improvement in the bilateral pulmonary infiltrates since 01/07/2025. 5. Stable scarring in the right hilum. 6. Stable left upper lobe pulmonary nodule. Lab Data Lab results reviewed: Yes I reviewed the patient's lab results. Labs: 02/21/25 12:52 Blood Blood Culture - Pending 02/21/25 12:18 Blood Blood Culture - Pending Laboratory Tests Range/Units 02/21/25 02/21/25 02/21/25 12:18 12:26 12:56 WBC (4.4-10.8) 10^3/uL 10.57 RBC (4.36-5.78) 10^6/uL 4.10 L Hgb (13.5-17.5) g/dL 12.3 L Hct (40.0-50.0) % 37.1 L MCV (80-95) fL 91 MCH (27.0-33.0) pg 30.0 MCHC (32.0-36.0) % 33.2 RDW (11.8-14.1) % 13.0 Plt Count (130-400) 10^3/uL 274 MPV (8.0-11.0) fL 9.1 Immature Gran % % 1.4 Neutrophils % % 76.9 Lymphocytes % % 6.9 Monocytes % % 10.7 Eosinophils % % 3.7 Basophils % % 0.4 Absolute Neutrophils (1.2-6.7) 10^3/uL 8.13 H Absolute Lymphocytes (1.2-3.4) 10^3/uL 0.73 L Absolute Monocytes (0.1-0.8) 10^3/uL 1.13 H Absolute Eosinophils (0.0-0.7) 10^3/uL 0.39 Absolute Basophils (0.0-0.2) 10^3/uL 0.04 VBG pH (7.31-7.41) 7.43 H VBG pCO2 (41-51) mmHg 42 VBG pO2 mmHg 43 VBG HCO3 (23-28) mmol/L 27 VBG Total CO2 (24-29) mmol/L 25 VBG O2 Saturation % 79 VBG Base Excess (-2-3) mmol/L 3 VBG Lactate (<or=2.0) mmol/L 1.7 Sodium Cancelled Potassium Cancelled Chloride Cancelled Carbon Dioxide Cancelled Anion Gap Cancelled BUN Cancelled Creatinine Cancelled Est GFR (CKD-EPI 2020) Cancelled Glucose Cancelled Calcium Cancelled Magnesium Cancelled Total Bilirubin Cancelled AST Cancelled ALT Cancelled Alkaline Phosphatase Cancelled Troponin I Cancelled Cancelled NT-Pro-B Natriuret Pep (<300) pg/mL Total Protein Cancelled Albumin Cancelled TSH Cancelled Urine Color (Yellow) Urine Clarity (Clear) Urine pH (5-8) Ur Specific [place] (1.005-1.025) Urine Protein (Neg-Trace) mg/dL Urine Ketones (Negative) mg/dL Urine Blood (Negative) Urine Nitrite (Negative) Urine Bilirubin (Negative) Urine Urobilinogen (Up to 0.2) mg/dL Ur Leukocyte Esterase (Negative) Urine RBC (0-2) HPF Urine WBC (0-5) HPF Ur Epithelial Cells (Negative) HPF Urine Crystals (Negative) HPF Urine Bacteria (Negative) HPF Urine Casts (Negative) LPF Urine Mucus (Negative) Ur Culture Indicated? Urine Glucose (Negative) mg/dL COVID-19 Source Nasopharynx SARS-CoV-2 (PCR) (Negative) Negative Influenza Type A (PCR) (Negative) Negative Influenza Type B (PCR) (Negative) Negative RSV (PCR) (Negative) Negative Add-On Test Request Range/Units 02/21/25 02/21/25 02/21/25 13:14 14:43 15:46 WBC (4.4-10.8) 10^3/uL RBC (4.36-5.78) 10^6/uL Hgb (13.5-17.5) g/dL Hct (40.0-50.0) % MCV (80-95) fL MCH (27.0-33.0) pg MCHC (32.0-36.0) % RDW (11.8-14.1) % Plt Count (130-400) 10^3/uL MPV (8.0-11.0) fL Immature Gran % % Neutrophils % % Lymphocytes % % Monocytes % % Eosinophils % % Basophils % % Absolute Neutrophils (1.2-6.7) 10^3/uL Absolute Lymphocytes (1.2-3.4) 10^3/uL Absolute Monocytes (0.1-0.8) 10^3/uL Absolute Eosinophils (0.0-0.7) 10^3/uL Absolute Basophils (0.0-0.2) 10^3/uL VBG pH (7.31-7.41) VBG pCO2 (41-51) mmHg VBG pO2 mmHg VBG HCO3 (23-28) mmol/L VBG Total CO2 (24-29) mmol/L VBG O2 Saturation % VBG Base Excess (-2-3) mmol/L VBG Lactate (<or=2.0) mmol/L Sodium 136 Potassium 3.7 Chloride 99 Carbon Dioxide 28.3 Anion Gap 8.3 BUN 12 Creatinine 1.46 H Est GFR (CKD-EPI 2020) 48.24 Glucose 87 Calcium 8.5 Magnesium 1.8 Total Bilirubin 0.4 AST 15 ALT < 7 L Alkaline Phosphatase 75 Troponin I < 3 NT-Pro-B Natriuret Pep (<300) pg/mL 81 Total Protein 6.8 Albumin 3.5 TSH 3.12 Urine Color (Yellow) Yellow Urine Clarity (Clear) Clear Urine pH (5-8) 5.5 Ur Specific [place] (1.005-1.025) 1.010 Urine Protein (Neg-Trace) mg/dL 30 H Urine Ketones (Negative) mg/dL Negative Urine Blood (Negative) Negative Urine Nitrite (Negative) Negative Urine Bilirubin (Negative) Negative Urine Urobilinogen (Up to 0.2) mg/dL 0.2 Ur Leukocyte Esterase (Negative) Trace H Urine RBC (0-2) HPF Negative Urine WBC (0-5) HPF 5-10 Ur Epithelial Cells (Negative) HPF Few Urine Crystals (Negative) HPF Negative Urine Bacteria (Negative) HPF Few Urine Casts (Negative) LPF 5-10 Hyaline Urine Mucus (Negative) Trace Ur Culture Indicated? No Urine Glucose (Negative) mg/dL Negative COVID-19 Source SARS-CoV-2 (PCR) (Negative) Influenza Type A (PCR) (Negative) Influenza Type B (PCR) (Negative) RSV (PCR) (Negative) Add-On Test Request DONE Discharge Plan Disposition Patient Disposition: Home Condition: Stable Discharge Details Clinical Impression: Bilateral pleural effusion Primary Care Provider: Anais Varma ED Provider: Konstantin Hauser Home Meds and New Rx's Prescriptions: Continued levothyroxine 75 mcg capsule 75 mcg PO DAILY omeprazole 20 mg capsule,delayed release(DR/EC) 20 mg PO DAILY Trelegy Ellipta 100-62.5-25 mcg blister with device 1 inh inhalation DAILY loratadine 10 mg tablet 10 mg PO DAILY Patient Comments: TAKE ONE TABLET BY MOUTH EVERY DAY Trelegy Ellipta 200-62.5-25 mcg blister with device 1 inh inhalation DAILY gabapentin 300 mg capsule 300 mg PO TID Patient Comments: TAKE ONE CAPSULE BY MOUTH THREE TIMES A DAY sertraline 50 mg tablet 50 mg PO ONCE Patient Comments: TAKE ONE TABLET BY MOUTH EVERY DAY folic acid 1 mg tablet 1 mg PO DAILY Patient Comments: TAKE ONE TABLET BY MOUTH EVERY DAY magnesium oxide 400 mg (241.3 mg magnesium) tablet 400 mg PO DAILY Patient Comments: TAKE ONE TABLET BY MOUTH EVERY DAY ipratropium-albuterol 0.5 mg-3 mg(2.5 mg base)/3 mL solution for nebulization 3 ml INHALATION TID PRN Patient Comments: INHALE THE CONTENTS OF ONE VIAL VIA NEBULIZER THREE TIMES A DAY azithromycin 250 mg tablet 250 mg PO DAILY Patient Comments: TAKE ONE TABLET BY MOUTH EVERY DAY Discharge Instructions Instructions: Pleural effusion, Thoracentesis Additional Instructions: You were seen in the emergency department for your increased falls weakness and shortness of breath, CT shows you have bilateral pleural effusions, I spoke with your harbormaster at [facility] Dr. Phillips who will arrange follow-up for you in the thoracentesis clinic next week, he should call you tomorrow for a checkup and possibly a decision regarding steroids, at this time it is reasonable to discharge home and return for any profound increase in shortness of breath and weakness. Stand Alone Forms: Portal Information Referrals: Anais Varma PA [Primary Care Provider, Medicine]
== END 2025-02-21 17:01 | disposition home or self-care (01) ==
PROVIDERS: Physician Assistant; Emergency Provider Physician Assistant; PCP Physician Assistant Medical
DX: R06.02 Shortness of breath; R53.1 Weakness; C34.90 Malignant neoplasm of unspecified part of unspecified bronchus or lung; J90 Pleural effusion, not elsewhere classified; W19.XXXA Unspecified fall, initial encounter
CPT/HCPCS: 00123; 36415; 71275; 74177; 80053; 82805; 87040; 87637; 93005; 94640; 96365; 99285; 70450; 72125; 81003; 81015; 83605; 83735; 83880; 84443; 84484; 85025; 93010; 99284; J0131; J3490; J7614